=== PATIENT | male | born 1945 | race Caucasian/White ===

== ENCOUNTER → 2017-10-18 09:43 | Outpatient (CLI) | payer MEDICARE, OTHER, SELFPAY ==
[2017-10-12 10:09] VITALS: BP 120/77; BMI 38.9
--- NOTE | 2017-10-18 10:00 | ECHOCS_ITS ---
Reason For Study: DYSPNEA Procedure This was a 2D Doppler, Color Flow transthoracic echocardiogram. Contrast injection was performed. The study was technically difficult. Exam performed in department. Left Ventricle Normal LV size. Left ventricular systolic function is normal. The estimated ejection fraction is 65 %. No regional wall motion abnormalities noted. Right Ventricle Normal RV size. Normal systolic function. Atria The left atrium is moderately enlarged. The right atrium is mildly enlarged. Mitral Valve Normal mitral valve. Tricuspid Valve Normal tricuspid valve. Mild (1+) tricuspid valve insufficiency. Pulmonary artery systolic pressure is 36 mmHg. Aortic Valve Trisinus/trileaflet aortic valve. Mild focal aortic valve calcification. Peak aortic valve gradient 32 mmHg. Mean aortic valve gradient 18 mmHg. Moderate aortic stenosis. Calculated aortic valve area (continuity equation) is 0.97 cm2. Pulmonic Valve Normal pulmonic valve. Great Vessels Mildly dilated aortic root. The pulmonary artery is normal size. Normal inferior vena cava. Pericardium/Pleural No pericardial effusion. Medication 22 gauge I.V. with prn adaptor inserted into right arm. Diluted definity 3ml given slow IV push to enhance endocardial definition. MMode/2D Measurements & Calculations LVIDd: 4.4 cm IVSd: 1.1 cm LVOT diam: 2.1 cm LVIDs: 3.1 cm LVPWd: 1.1 cm LVOT area: 3.3 cm2 RVDd: 4.1 cm FS: 28.9 % Ao root diam: 3.8 cm LAV(MOD-bp): 93.5 ml EDV(MOD-sp4): 92.9 ml LA dimension: 5.9 cm LAV(MOD-bp) Indexed: 41.3 ml/m2 ESV(MOD-sp4): 19.2 ml LAV(MOD-sp2): 86.2 ml EF(MOD-sp4): 79.3 % LAV(MOD-sp4): 95.6 ml EDV(MOD-sp2): 61.9 ml SV(MOD-sp4): 73.7 ml SV(MOD-sp2): 53.0 ml EF(MOD-sp2): 85.5 % Aortic Valve Planimetry: 1.2 cm2 LA A4 area: 29.0 cm2 RA A4 area: 26.5 cm2 Doppler Measurements & Calculations MV E max michael: 143.7 cm/sec Ao V2 max: 283.9 cm/sec LV V1 max: 83.3 cm/sec Ao max P.4 mmHg LV V1 max P.3 mmHg Ao V2 mean: 196.8 cm/sec LV V1 mean P.5 mmHg Ao mean P.4 mmHg LV V1 mean: 52.0 cm/sec Ao V2 VTI: 52.0 cm LV V1 VTI: 13.9 cm PAIGE(I,D): 0.88 cm2 PAIGE(V,D): 0.97 cm2 SV(LVOT): 46.0 ml PA V2 max: 197.5 cm/sec TR max michael: 278.7 cm/sec TR max P.2 mmHg Interpretation Summary Normal LV size. Left ventricular systolic function is normal. The estimated ejection fraction is 65 %. Moderate aortic stenosis. Calculated aortic valve area (continuity equation) is 0.97 cm2. Pulmonary artery systolic pressure is 36 mmHg. Contrast injection was performed. Ordering Physician: Bran Russell Referring Physician: LEODAN CARDONA Performed By: Nara Veronica, ALYSIA, RVT
[2017-10-18 11:23] VITALS: PULSE 100; PULSE 109; PULSE 113; PULSE 119; PULSE 92; PULSE 94; PULSE 97; PULSE 98; O2SAT 90; O2SAT 91; O2SAT 92; O2SAT 93
--- NOTE | 2017-10-18 15:00 | WT_ITS ---
PSN 6 Minute Walk Test - 6 Minute Walk Test 6 Minute Walk Test: 6 Minute Walk Test PSN:6-Minute Walk Test Start: 10/18/17 11: 23 Freq: Status: Active Protocol: RESP.6MINW Document 10/18/17 11:23 [facility] (Rec: 10/18/17 11:28 JLA [id number]) 6 Minute Walk Test Date Performed 10/18/17 Time Performed 11:10 Height 5 ft 8 in Weight: 115.666 kg Weight in Pounds 255.[address]: Bran Russell Assistive device used: None Pre-test Oxygen Delivery Method Room Air Pulse Ox (%) 92 Pulse Rate (60-100 beats/min) 92 Dyspnea Terrell Scale (0-10) 0 Exertion Terrell Scale (6-20) 6 1st minute Oxygen Delivery Method Room Air Pulse Ox (%) 93 Pulse Rate (60-100 beats/min) 100 2nd minute Oxygen Delivery Method Room Air Pulse Ox (%) 90 Pulse Rate (60-100 beats/min) 97 3rd minute Oxygen Delivery Method Room Air Pulse Ox (%) 91 Pulse Rate (60-100 beats/min) 98 4th minute Oxygen Delivery Method Room Air Pulse Ox (%) 92 Pulse Rate (60-100 beats/min) 94 5th minute Oxygen Delivery Method Room Air Pulse Ox (%) 93 Pulse Rate (60-100 beats/min) 109 H 6th minute Oxygen Delivery Method Room Air Pulse Ox (%) 93 Pulse Rate (60-100 beats/min) 113 H Post-test Oxygen Delivery Method Nasal Cannula Pulse Ox (%) 93 Pulse Rate (60-100 beats/min) 119 H Dyspnea Terrell Scale (0-10) 3 Exertion Terrell Scale (6-20) 13 Full Laps Walked 19 Partial Lap, Number of Tiles Walked 0 Total Distance Walked (ft) 1121 - Interpretation Interpretation: The patient was able to ambulate 1121 feet over the course of 6 minutes on room air with no assistive devices or breaks. The patient did experience some desaturation as low as 90%. Some tachycardia was noted, consistent with deconditioning. Patient did report knee pain with exertion. These findings are consistent with a respiratory limitation exercise tolerance - Recommendations Recommendations: Supplemental oxygen is indicated at this time. Patient will need to be followed closely given level of desaturation
== END ==
PROVIDERS: Family Provider Internal Medicine; PCP Internal Medicine; Visit Provider Internal Medicine Critical Care Medicine
DX: Q25.3 Supravalvular aortic stenosis (principal); I26.99 Other pulmonary embolism without acute cor pulmonale
CPT/HCPCS: 93306; 94618; Q9957; A4216; C8929

== ENCOUNTER → 2017-12-09 12:12 | Outpatient (CLI) | payer MEDICARE, OTHER, SELFPAY ==
[2017-12-09 13:23] LABS: Anion Gap 10 (5-15); BUN 23 mg/dL (7-18); BUN/Creat Ratio 21.1 RATIO (10-20); Calcium,Total 8.7 mg/dL (8.5-10.1); Chloride 107 mmol/L (98-107); Creatinine, Serum 1.09 mg/dL (0.70-1.30); EST Glomerular Filtration Rate 70 mL/min (>60); Est Glom Filt Rate - Afr Amer 85 mL/min (>60); Glucose 101 mg/dL (74-106); Potassium 4.5 mmol/L (3.5-5.1); Sodium Level 141 mmol/L (136-145)
== END ==
PROVIDERS: Family Provider Internal Medicine; PCP Internal Medicine; Visit Provider Physician Assistant Medical
DX: I48.91 Unspecified atrial fibrillation (principal); I10 Essential (primary) hypertension; R60.0 Localized edema
CPT/HCPCS: 36415; 80048

== ENCOUNTER → 2017-12-15 07:28 | Outpatient (CLI) | payer MEDICARE, OTHER, SELFPAY ==
--- NOTE | 2017-12-15 07:32 | CT_ITS ---
CT Abdomen And Pelvis WO/W Contrast INDICATION: Gross hematuria COMPARISON: None TECHNIQUE: CT urogram with noncontrast CT of the abdomen, postcontrast CT of the abdomen and pelvis, and delayed CT of the abdomen and pelvis. : Sagittal reformatted images. Radiation dose optimization technique applied. 100 mL of Isovue-300 were given. FINDINGS: Visualized lung bases are clear. Precontrast scan demonstrates coarse calcifications presumably associated with complex cysts in the inferior pole regions of the bilateral kidneys. Vascular calcifications are noted. Diffuse arteriosclerotic calcifications of the abdominal aorta are present. A low density 1 cm lesion is noted in the left adrenal gland compatible with a left adrenal adenoma. The liver, gallbladder, spleen, and pancreas are unremarkable. Bowel loops are nondistended. After contrast administration, there is symmetric cortical renal enhancement. The complex cystic structures in the inferior pole regions of the bilateral kidneys are associated with mild coarse calcifications, measuring 2.5 cm on the left. Multiple smaller cysts between 1 and 2 cm size seen in the inferior pole region of the right kidney.. There is no evidence of hydronephrosis. On delayed phase imaging, there is symmetric excretion of contrast. Review of the urinary bladder demonstrates severe enlargement of the prostate, measuring 8.3 cm, and the prostate extends 4 cm into the urinary bladder. Invasion of the bladder wall cannot be excluded. No other mass seen in the urinary bladder. Bladder wall appears mildly thickened. No evidence of free air or free fluid. CT/CT Abd/Pelvis W/WO Contrast IMPRESSION: CT urogram reveals bilateral complex cysts associated with coarse calcifications, smoothly marginated on the left, multiple smaller more ill-defined and lobulated cysts in the inferior pole region of the right kidney. A true mass is not identified with certainty. Follow-up in 3 months is recommended to confirm stability. Severely enlarged prostate with extension into the urinary bladder, correlate with PSA and urologic evaluation. at 0111 Reported and signed by: Eden Wu MD Electronically Signed: Eden Wu MD at 0:10 EDT Tel , Service support ,
[2017-12-15 08:32] LABS: Color, Urine Yellow (Yellow); Glucose, Dipstick Normal (Normal); Ketone-Dipstick Negative (Negative); Leukocyte Esterase-Dipstick 100 /ul (Negative); Nitrite-Dipstick Negative (Negative); Occult Blood-Urine Negative /ul (Negative); Protein-Dipstick Negative (Negative); Urine Bilirubin Dipstick Negative (Negative); Urine Clarity Clear (Clear); Urine Urobilinogen Normal (Normal)
[2017-12-15 09:12] LABS: PSA,Total - Annual Screen 5.42 ng/mL (0.00-4.00)
== END ==
PROVIDERS: Family Provider Internal Medicine; PCP Internal Medicine; Visit Provider Nurse Practitioner Adult Health
DX: R31.0 Gross hematuria (principal); Z12.5 Encounter for screening for malignant neoplasm of prostate
CPT/HCPCS: 36415; 74178; 81002; 84153; 87086; 87088; Q9967; G0103

== ENCOUNTER → 2018-03-08 06:48 | Outpatient (CLI) | payer MEDICARE, OTHER, SELFPAY ==
[2018-03-08 07:59] LABS: AST(SGOT) 16 U/L (15-37); Alanine Aminotransfer ALT/SGPT 31 U/L (16-61); Albumin, Serum 3.6 g/dL (3.2-5.0); Alkaline Phosphatase 106 U/L (45-117); Bilirubin, Direct 0.22 mg/dL (0.00-0.30); Cholesterol 103 mg/dL (200); Globulin 4.3 g/dL (2.2-4.2); High Density Lipoprotein 35 mg/dL; Protein, Total 7.9 g/dL (6.4-8.2); Triglycerides 102 mg/dL; Very Low Density Lipoprotein 20 mg/dL (5-40)
== END ==
PROVIDERS: Family Provider Internal Medicine; PCP Internal Medicine; Visit Provider Physician Assistant Medical
DX: E78.5 Hyperlipidemia, unspecified (principal)
CPT/HCPCS: 36415; 80061; 80076

== ENCOUNTER → 2018-08-15 12:46 | Outpatient (CLI) | payer MEDICARE, OTHER, SELFPAY ==
[2018-04-22 11:15] VITALS: BMI 36.0
--- NOTE | 2018-08-16 08:19 | PFT ---
INTRODUCTION: The patient is a 72-year-old male that presents for pulmonary function testing secondary to a diagnosis of COPD. Respiratory therapy reports good patient effort. Bronchodilators were used during testing. INTERPRETATION: Forced expiration spirometry demonstrates no evidence of a large airways obstructive ventilatory defect. There was no significant response to aerosolized bronchodilators. Spirograms are of good quality and plateau gradually. The respiratory flow volume loop appears normal. Body plethysmography was performed and reveals lung volumes to be within normal limits. Diffusing capacity by single breath CO is at the lower limits of normal at 67% of predicted. IMPRESSION: These pulmonary function studies only demonstrated a DLCO which is at the lower limits of normal. There are no previous pulmonary function studies available for comparison.
--- OUTSIDE RECORDS SUMMARY | 2018-10-08 19:24 | XMS RPT_ITS ---
:1945 Author Organization OHIP Support Name Relationship Address Phone FRANCESCA MARRERO Unavailable [address] + [place] [address] MALLIKA CLOE Unavailable [address] + [place] [address] R Unavailable Unavailable Unavailable ZANEASPENON Unavailable [address] + [place] [address] MALLIKA COLE Unavailable [address] + [place] [address] R Unavailable Unavailable Unavailable ZANE FRANCESCA Unavailable [address] + [place] [address] MALLIKA COLE Unavailable [address] + [place] [address] R Unavailable Unavailable Unavailable ZANEASPENON Unavailable [address] + [place] [address] MALLIKA COLE Unavailable [address] + [place] [address] R Unavailable Unavailable Unavailable ZANE FRANCESCA Unavailable [address] + [place] [address] MALLIKA COLE Unavailable [address] + [place] [address] R Unavailable Unavailable Unavailable ZANE FRANCESCA Unavailable [address] + [place] [address] R Unavailable Unavailable Unavailable ZANE, FRANCESCA Unavailable [address] + [place] [address] R Unavailable Unavailable Unavailable ZANE, FRANCESCA Unavailable [address] + [place] [address] R Unavailable Unavailable Unavailable ZANE FRANCESCA Unavailable [address] [phone] [place] [address] R Unavailable Unavailable Unavailable ZANE, FRANCESCA Unavailable [address] [phone] [place] [address] R Unavailable Unavailable Unavailable ZANE, FRANCESCA Unavailable [address] [phone] [place] [address] R Unavailable Unavailable Unavailable ZANE, FRANCESCA Unavailable [address] [phone] [place] [address] R Unavailable Unavailable Unavailable ZANE, FRANCESCA Unavailable [address] [phone] [place] [address] R Unavailable Unavailable Unavailable ZANE, FRANCESCA Unavailable [address] [phone] [place] [address] R Unavailable Unavailable Unavailable ZANE, FRANCESCA Unavailable [address] [phone] [place] [address] R Unavailable Unavailable Unavailable ZANE, FRANCESCA Unavailable [address] + [place] [address] R Unavailable Unavailable Unavailable ZANE, FRANCESCA Unavailable [address] + [place] [address] R Unavailable Unavailable Unavailable ZANE, FRANCESCA Unavailable [address] + [place] [address] R Unavailable Unavailable Unavailable ZANE, FRANCESCA Unavailable [address] + [place] [address] R Unavailable Unavailable Unavailable ZANE, FRANCESCA Unavailable [address] + [place] [address] R Unavailable Unavailable Unavailable ZANE, FRANCESCA Unavailable [address] + [place] [address] R Unavailable Unavailable Unavailable ZANE, FRANCESCA Unavailable [address] + [place] [address] R Unavailable Unavailable Unavailable ZANE, FRANCESCA Unavailable [address] + [place] [address] R Unavailable Unavailable Unavailable Care Team Providers Name Role Phone TOMY CARDONA Referring Unavailable TOMY CARDONA Attending Unavailable Erica Warner Attending Unavailable Tomy Cardona Referring Unavailable Freddy Juan D.O. Attending Unavailable Bran Russell Referring Unavailable Bran Russell Attending Unavailable Cardona, Tomy Primary Care Unavailable Larissa Frederick Attending Unavailable Drew, Bran Attending Unavailable Cardona, Tomy Referring Unavailable Cardona, Tomy Primary Care Unavailable Freddy Juan D.O. Attending Unavailable Drew, Bran Referring Unavailable Drew, Bran Attending Unavailable Drew, Bran Referring Unavailable Cardona, Tomy Primary Care Unavailable Freddy Juan D.O. Attending Unavailable Drew, Bran Referring Unavailable Drew, Bran Attending Unavailable Drew, Bran Referring Unavailable Erica Warner Attending Unavailable Cardona, Tomy Referring Unavailable Christopher Rivera Attending Unavailable Drew, Bran Referring Unavailable Capellan, Anai Mckeon Attending Unavailable Cardona, Tomy Referring Unavailable Cardona, Tomy Primary Care Unavailable Jeff Bowie Attending Unavailable Cardona, Tomy Referring Unavailable Capellan, Anai Mckeon Attending Unavailable Cardona, Tomy Primary Care Unavailable Bruna, Nancy Mckeon Attending Unavailable Bruna, Nancy M Referring Unavailable Cardona, Tomy Primary Care Unavailable Brook Hoffman Attending Unavailable Capellan, Anai Mckeon Attending Unavailable Cardona, Tomy Referring Unavailable Cardona, Tomy Primary Care Unavailable Drew, Bran Attending Unavailable Cardona, Tomy Referring Unavailable Capellan, Anai M Attending Unavailable Capellan, Anai M Referring Unavailable Cardona, Tomy Primary Care Unavailable Ilana Hale Attending Unavailable Jeff Bowie Attending Unavailable Cardona, Tomy Referring Unavailable Cardona, Tomy Primary Care Unavailable Drew, Bran Attending Unavailable Drew, Bran Referring Unavailable Cardona, Tomy Primary Care Unavailable Drew, Bran Attending Unavailable Drew, Bran Referring Unavailable Cardona, Tomy Primary Care Unavailable PROBLEMS PROBLEMS DATE TYPE CONDITION / CODE ATTENDING STATUS SOURCE 08/17/2018 Unknown J44.9 - Chronic Drew, Bran Active [facility] obstructive pulmonary Community disease, unspecified Hospital / J44.9(ICD-10) Repository 08/17/2018 Unknown I27.29 - Other Drew, Bran Active [place] secondary pulmonary Community hypertension / Hospital I27.29(ICD-10) Repository 04/22/2018 Unknown E78.5 - Jeff Bowie Active [facility] Hyperlipidemia, Community unspecified / Hospital E78.5(ICD-10) Repository 04/22/2018 Unknown I48.1 - Persistent Jeff Bowie Active [facility] atrial fibrillation / Community I48.1(ICD-10) Hospital Repository 04/22/2018 Unknown I25.10 - Jeff Bowie Active [place] Atherosclerotic heart [facility] disease of [facility] coronary artery Repository without angina pectoris / I25.10(ICD-10) 04/22/2018 Unknown I35.0 - Nonrheumatic Jeff Bowie Active [place] aortic (valve) [facility] stenosis / Hospital I35.0(ICD-10) Repository 01/19/2018 Active Other nursing home NA Active [facility] Main therapy / [place] Z79.899(ICD-10) Repository 01/13/2018 Unknown I48.91 - Unspecified Capellan, Active [facility] atrial fibrillation / [facility] I48.91(ICD-10) Hospital Repository 12/09/2017 Unknown I10 - Essential Capellan, Active [facility] (primary) [facility] hypertension / Hospital I10(ICD-10) Repository 12/09/2017 Unknown R60.0 - Localized Capellan Active [place] edema / R60.0(ICD-10) [facility] Repository 10/18/2017 Unknown Q25.3 - Supravalvular Bran Russell Active [place] aortic stenosis / [facility] Q25.3(ICD-10) Hospital Repository 10/12/2017 Unknown I26.99 - Other Bran Russell Active [place] pulmonary embolism [facility] without acute cor Hospital pulmonale / Repository I26.99(ICD-10) PROCEDURES PROCEDURES No Procedure Records FoundRESULTS RESULTS PULMONARY VISIT REPORT Observed: 08/23/2018 Status: F Source: [place] 3:34 PM [facility] REPOSITORY [facility] Pulmonary Medicine [facility] [address] [place] [address] OFFICE VISIT Date of Service: 08/23/18 MR#: [id number] Acct: [id number] Name: CARLIE MARRERO Rep #: [id number] : 1945 Provider: Erica Warner Age/Sex: 73/M Location: [facility] Status: Signed Assessment AND Plan Problems 1. PAH (pulmonary artery hypertension) I27.21 Plan Stable. No indication for submental oxygen at this time. Continue to encourage weight loss. No indication to step up therapy. Follow-up with Dr. Drew in 6 months. Contact the office with any new or worsening symptoms meantime. Annual influenza vaccination current. Plan Detail Follow Up 6 Months ([facility]) HPI 6 M FU: Chief Complaint: None HPI Comments Details: This patient presents the office today to follow-up on his shortness of breath on exertion. He is ambulatory and currently in room air. He is accompanied today by his . He reports his shortness of breath is only present on exertion. He denies any shortness of breath with rest or conversation. He denies any cough, sputum production or hemoptysis. He denies any wheezing, chest tightness, chest pain or palpitations. He is not expansive fever, chills or body aches. He continues with weight loss, is down approximately 20 pounds at this point. He has been using diet modification and exercise. He reports that they avoid cooking foods and oils, fried foods, breads and sweets. Function test completed on August 15, 2018 interpreted as showing a DLCO which is slightly on the lower limits of normal. FVC 80% of predicted, FEV1 83% predicted, FEV1/FVC 75% of predicted, TLC 94% of predicted, RV 84% of predicted and DLCO 67% of predicted. Stress test completed on July 18, 2018 shows that the patient was able to ambulate 1087 feet over the course of 6 minutes, he did not desaturate and does not require supplemental oxygen. Intake Vital Signs08/23/18 Height 5 ft 8 in Intake Visit Reasons: 6 M FU Chief Complaint: Routine f/u Is patient in pain?: No Allergies lisinopril Adverse Reaction (Intermediate, Verified 08/23/18 10:07) cough Medications Finasteride [Proscar] 5 mg PO DAILY 09/24/15 [History Confirmed 08/23/18] apixaban 5 mg tablet 5 mg PO BID #180 tab 09/16/17 [Rx Confirmed 08/23/18] diltiazem CD 180 mg capsule,extended release 24 hr 180 mg PO QDAY #180 cap 12/09/17 [Rx Confirmed 08/23/18] tamsulosin 0.4 mg capsule 0.8 mg PO QDAY cap 02/28/18 [History Confirmed 08/23/18] furosemide 40 mg tablet 40 mg PO QDAY #90 tab 04/22/18 [Rx Confirmed 08/23/18] atorvastatin 10 mg tablet 10 mg PO QDAY #90 tab 07/22/18 [Rx Confirmed 08/23/18] metoprolol tartrate 50 mg tablet 50 mg PO BID #180 tab 07/22/18 [Rx Confirmed 08/23/18] [facility] Medical History Atherosclerotic heart disease of [place] coronary artery without angina pectoris (Chronic) Hyperlipidemia (Chronic) 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) Emphysema of lung (Chronic) NOAM (obstructive sleep apnea) (Chronic) Solitary pulmonary nodule (Chronic) Persistent atrial fibrillation (Chronic) Nonrheumatic aortic (valve) stenosis (Chronic) Nonrheumatic tricuspid (valve) insufficiency (Chronic) Other secondary pulmonary hypertension (Chronic) Fever (Chronic) Atrial fibrillation (Chronic) Bilateral pulmonary embolism (Chronic) Hypertension (Chronic) BPH (benign prostatic hyperplasia) (Chronic) Surgical History Stented coronary artery (Chronic 11/07/11) History of electrophysiologic study (Chronic 01/27/12) H/O oral surgery (Resolved) History of left cataract surgery (Resolved) Family History Mother CVA (cerebral vascular accident) Diabetes Other Family history of CVA Social History Smoking Status: Former smoker quit date: 09/13/11 pack-years: 80 how long ago did patient quit smokin second hand exposure: No alcohol intake: never substance use type: does not use caffeine: Yes Type: tea what type of physical activity do you participate in: none seatbelt use: always do you feel safe at home: Yes Review of Systems Const CONSTITUTIONAL: Negative anorexia, body ache, chills, daytime sleepiness, fever(s), night sweats, oral thrush, stops breathing during sleep, weight loss, sleeping in chair, fatigue, weight loss, weight gain, frequent colds, seasonal allergies, other, headache(s) or orthopnea EETM Ear Nose Throat Mouth: Negative hard of hearing, hearing normal, hoarseness, dry mouth in morning, change in vision, itchy eyes, eye pain, swallowing Difficulty, ear pain, nose bleed, headache(s), mouth pain, nasal congestion, nasal discharge, post nasal drip, sinus pain, sinus pressure, sore throat or other Cardio Cardiovascular: Positive murmur; negative chest pain, chest pain at rest, chest pain with activity, irregular heart rhythm, edema, shortness of breath when lying down, palpitations or other Resp Respiratory: Positive shortness of breath shortness of breath: Positive with activity and cough; negative as per HPI, pain with cough, wheezing, chest congestion, chest tightness, pain on inspiration, inhalers, increase use of rescue inhalers, snoring, apnea or other Gastro Gastrointestional: Negative bloody stools, change in appetite, difficulty swallowing, reflux, hematemesis, melena stool, loose stool, constipation or other Genitourinary: Negative blood in urine, nocturia, pain with urination or other Musc Musculoskeletal: Negative body pain, back pain, neck pain or other Skin/Breast Skin/Breast: Negative dry skin, itching, rash, unusual bruising, breast lump or other Neuro Neurological: Negative restless legs, confusion, weakness or other Psych Psychocological: Negative abnormal sleep pattern, anxiety, thoughts of hurting self/others, hopelessness or other Lymph Lymphatic: Negative easy bleeding, easy bruising, swollen lymph nodes or other Exam Const Constitutional: Positive conversant, cooperative, in no acute respiratory distress, healthy appearing, well developed, well nourished, good hygiene and obese Head Head: Positive normocephalic and atraumatic; negative cyanosis of lips/distal nose Eyes Eye: Positive clear conjunctiva; negative nystagmus or scleral abnormality Ears Ear: Positive external ears normal; negative hard of hearing or hearing normal Nose Nose: Positive external nose normal and no nasal discharge; negative epistaxis Mouth Mouth: Positive oral mucosae normal and no lesions; negative post nasal drip, malodorous breath or oral thrush present Neck Neck: Positive normal visual inspection, full ROM and trachea midline; negative lymphadenopathy, JVD or tender Chest Wall Chest: Positive normal inspection of the chest and symmetric chest movement; negative increased A/P diameter Resp lung sounds: Positive clear to auscultation, good air exchange, normal expiratory time and normal respiratory effort; negative diminished, wheezes, rhonchi, rales, dullness to percussion or wheeze present on forced exhalation Cardio Cardiac: Positive murmur murmur: Positive LUSB, RUSB and diastolic; negative regular rate or regular rhythm GI GI: Positive normal to inspection and obese; negative distended Genitourinary: Positive deferred Musc Musculoskeletal: Positive steady gait and ROM normal; negative kyphosis or scoliosis Skin Pulmonary Skin Exam: Positive intact; negative rash Pulses Pulse: Yes pulses normal x4 extremities Extremities Extremities: Yes capillary refill normal, No clubbing, No cyanosis, No edema Neuro Neurologic: Yes conversant, Yes no focal neuro deficits, Yes normal concentration, Yes understands questions, Yes cooperative, Yes normal cognition, Yes normal coordination, No tremor Lymph Lymphatic: No lymphadenopathy, No tenderness, No cervical adenopathy Psych Appearance: Positive grossly normal, eye contact and well kempt Mental Status: Positive mental status grossly normal Mood: Positive congruent mood Affect: Positive normal affect Coding Level of Care Code Off vis,est,level 3 Diagnoses PAH (pulmonary artery hypertension) I27.21 08/23/18 1534 <Electronically signed by Erica RIVASC> Date Erica RIVASC Cosigner Signature: Date (if applicable) CC: Tomy Cardona MD 6 MINUTE WALK TEST Observed: 08/17/2018 Status: F Source: [place] 12:59 PM [facility] REPOSITORY [facility] Pulmonary Services/Neurology [facility] [place] [address] MR#: [id number] Acct: [id number] Name: CARLIE MARRERO Rep #: [id number] : 1945 72 From: Freddy Juan DO Referring Dr: Bran Russell MD Date: Ordering Dr: Sex: Mike Cast Location: PSN PSN 6 Minute Walk Test - 6 Minute Walk Test 6 Minute Walk Test: 6 Minute Walk Test PSN:6-Minute Walk Test Start: 08/17/18 11:14 Freq: Status: Active Protocol: RESP.6MINW Document 08/17/18 11:05 [facility] (Rec: 08/17/18 11:23 [facility] [id number]) 6 Minute Walk Test Date Performed 08/17/18 Time Performed 11:05 Height 5 ft 8 in Weight: 230 lb Weight in Pounds 230.[address]: Bran Russell Assistive device used: None Pre-test Oxygen Delivery Method Room Air Pulse Ox (%) 94 Pulse Rate (60-100 beats/min) 86 Dyspnea Terrell Scale (0-10) 0 Exertion Terrell Scale (6-20) 6 1st minute Oxygen Delivery Method Room Air Pulse Ox (%) 94 Pulse Rate (60-100 beats/min) 86 Number of Rests Taken 0 2nd minute Oxygen Delivery Method Room Air Pulse Ox (%) 92 Pulse Rate (60-100 beats/min) 101 H Number of Rests Taken 0 3rd minute Oxygen Delivery Method Room Air Pulse Ox (%) 92 Pulse Rate (60-100 beats/min) 123 H Number of Rests Taken 0 4th minute Oxygen Delivery Method Room Air Pulse Ox (%) 93 Pulse Rate (60-100 beats/min) 112 H Number of Rests Taken 0 5th minute Oxygen Delivery Method Room Air Pulse Ox (%) 92 Pulse Rate (60-100 beats/min) 113 H Number of Rests Taken 0 6th minute Oxygen Delivery Method Room Air Pulse Ox (%) 93 Pulse Rate (60-100 beats/min) 113 H Number of Rests Taken 0 Post-test Oxygen Delivery Method Room Air Pulse Ox (%) 98 Pulse Rate (60-100 beats/min) 87 Dyspnea Terrell Scale (0-10) 2 Exertion Terrell Scale (6-20) 12 Full Laps Walked 18 Partial Lap, Number of Tiles Walked 25 Total Distance Walked (ft) 1087 - Interpretation Interpretation: The patient ambulated 1087 feet over the course of 6 minutes beginning on room air without assistive devices or breaks. Pretesting oxygen saturation was noted to be 94% on room air. With ambulation, the nany oxygen saturation was 92%. There was no significant exertional oxygen desaturation. - Recommendations Recommendations: There is no indication for the use of supplemental oxygen at this time. 08/17/18 1259 <Electronically signed by Freddy Juan DO> Date Freddy Juan DO CC: Date Dictated: 08/17/181257 Date Transcribed: 08/17/181257 Information Systems Professor: Freddy Juan DO Signed PULMONARY FUNCTION Observed: 08/16/2018 Status: F Source: [place] TEST 8:22 AM [facility] REPOSITORY [facility] Pulmonary Services/Neurology [address] [place] [address] MR#: [id number] Acct: [id number] Name: CARLIE MARRERO Rep #: [id number] : 1945 72 From: Freddy Juan DO Referring Dr: Bran Russell MD Status: REG CLI Ordering Dr: Date: Location: [facility] Sex: M C INTRODUCTION: The patient is a 72-year-old male that presents for pulmonary function testing secondary to a diagnosis of COPD. Respiratory therapy reports good patient effort. Bronchodilators were used during testing. INTERPRETATION: Forced expiration spirometry demonstrates no evidence of a large airways obstructive ventilatory defect. There was no significant response to aerosolized bronchodilators. Spirograms are of good quality and plateau gradually. The respiratory flow volume loop appears normal. Body plethysmography was performed and reveals lung volumes to be within normal limits. Diffusing capacity by single breath CO is at the lower limits of normal at 67% of predicted. IMPRESSION: These pulmonary function studies only demonstrated a DLCO which is at the lower limits of normal. There are no previous pulmonary function studies available for comparison. 08/16/18821 <Electronically signed by Freddy Juan DO> Date Freddy Juan DO CC: Bran Russell MD; Tomy Cardona MD Date Dictated: 08/16/18818 Date Transcribed: 08/16/18818 Information Systems Professor: SARANYA Signed CARDIOLOGY VISIT Observed: 04/22/2018 Status: F Source: [place] REPORT 11:48 AM [facility] REPOSITORY [facility] [address] [place] [address] OFFICE VISIT Date of Service: 04/22/18 MR#: [id number] Acct: [id number] Name: CARLIE MARRERO Rep #: [id number] : 1945 Provider: Jeff Bowie MD Age/Sex: 72/M Location: [facility] Status: Signed HPI [facility] Chief Complaint: Routine f/u Details: Mr. Marrero is a very pleasant 72-year-old gentleman who had not seen a medical doctor in some time, has never had a cardiac issue, with approximately [id number] history of smoking quit around 4 years ago. Patient also used to drink around one beer day for about 25 years also quit about 4 years ago. He reports that he is a nondiabetic but is morbidly obese. The patient was admitted to [facility] around 09/25/15 after developing new onset right sided sharp pleuritic-type chest pain occurring approximately one month after falling and hitting his chest wall. He sought medical attention at [facility] ER where a CT scan of his chest demonstrated bilateral pulmonary emboli particularly more prominent on the right. In addition he had evidence of right ventricular enlargement and also found to be in atrial fibrillation with rapid ventricular response. he was placed on a Cardizem, as well as Eliquis and underwent successful cardioversion on 11/15/15. Patients echocardiogram demonstrated normal LV function mild left atrial enlargement, and RVSP of 47 mmHg, mild bi lateral mitral annular calcification, unable to calculate mitral gradient, and an estimated aortic valvular area of 1.2 cm with a peak gradient across the aortic valve of at least 36 mmHg. Patient underwent FADIA guided DC cardioversion on 11/15/15 which lasted about a week, and then reverted back to atrial fibrillation. Prior to our last visit he is doing fairly well, he denies any chest pain, angina, or shortness of breath or dyspnea on exertion. He underwent a sleep study and a 6 minute walk test with Dr. Russell, and is awaiting a repeat CT scan on 02/12/16 for his pulmonary nodules. Patient remains on Cardizem, Lopressor, and ELiquis. he has had no bleeding issues. He is taking and tolerating his medicines well. Since our last visit, the patient has been doing relatively well, and has had no sentinel events of presyncope, syncope, is additional lightheadedness, dizziness, exertional angina, or worsening shortness of breath/worsening dyspnea on exertion. He has known NOAM and COPD, and is following up with pulmonology going forward. His most recent echocardiogram dated 01/27/17 showed an EF of 65%, severe biatrial enlargement, and aortic valve area 1.2 cm which may be inaccurate given his atrial fibrillation. His peak and mean gradient did not approach severe aortic stenosis at this time. Repeat echocardiogram dated 10/20/17 showed normal LV function with an EF of 65%, estimated aortic valvular area of 0.97 cm , with an aortic peak/mean gradient of 32 and 17 mmHg, and an RVSP of 36 mmHg. Patient states that he requires a colonoscopy but is concerned about going off of his Eliquis with respect to his atrial fibrillation. Patient had a colonoscopy about 7-8 years ago, and some polyps removed. He is due for another colonoscopy for routine surveillance but would need to go off his Eliquis for that procedure my cardiac standpoint he denies any chest pain, angina, shortness of breath or dyspnea on exertion. He is taking and tolerating his medicines well. He has had no change in his exercise capacity, presyncope, syncope, lightheadedness or dizziness In our office today's blood pressure is 100/60 and pulse is 80 and regular. His physical exam demonstrates a irregular rate rhythm normal S2, 2/6 systolic ejection murmur best heard at the upper right sternal border, no edema noted. he has 2+ bilateral carotid upstroke, and no edema. Lipids as of 10/11/15 showed HDL of 41 and LDL of 101. Lipids as of 10/02/16 showing LDL of 102, and HDL of 35. Lipids has of 02/24/17 shown LDL of 45 and HDL 38. Lipids as of 03/08/18 show an LDL of 48 and HDL 35. EKG today demonstrates atrial fibrillation with controlled ventricular response Intake Vital Signs04/22/18 Height 5 ft 8 in 04/22/18 Weight: 237 lb 04/22/18 Body Mass Index (BMI) 36.0 04/22/18 Blood Pressure 100/60 Intake Visit Reasons: 3 M Order Runner Required: No Accompanied by: Is patient in pain?: No Allergies lisinopril Adverse Reaction (Intermediate, Verified 04/22/18 08:21) cough Medications Finasteride [Proscar] 5 mg PO DAILY 09/24/15 [History Confirmed 04/22/18] apixaban 5 mg tablet 5 mg PO BID #180 tab 09/16/17 [Rx Confirmed 04/22/18] atorvastatin 10 mg tablet 10 mg PO QDAY #90 tab 09/16/17 [Rx Confirmed 04/22/18] metoprolol tartrate 50 mg tablet 50 mg PO BID #180 tab 09/16/17 [Rx Confirmed 04/22/18] diltiazem CD 180 mg capsule,extended release 24 hr 180 mg PO QDAY #180 cap 12/09/17 [Rx Confirmed 04/22/18] tamsulosin 0.4 mg capsule 0.8 mg PO QDAY cap 02/28/18 [History Confirmed 04/22/18] furosemide 40 mg tablet 40 mg PO QDAY #90 tab 04/22/18 [Rx Confirmed 04/22/18] [facility] Medical History Atherosclerotic heart disease of [place] coronary artery without angina pectoris (Chronic) Hyperlipidemia (Chronic) 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) Emphysema of lung (Chronic) NOAM (obstructive sleep apnea) (Chronic) Solitary pulmonary nodule (Chronic) Persistent atrial fibrillation (Chronic) Nonrheumatic aortic (valve) stenosis (Chronic) Nonrheumatic tricuspid (valve) insufficiency (Chronic) Other secondary pulmonary hypertension (Chronic) Fever (Chronic) Atrial fibrillation (Chronic) Bilateral pulmonary embolism (Chronic) Hypertension (Chronic) BPH (benign prostatic hyperplasia) (Chronic) Surgical History Stented coronary artery (Chronic 11/07/11) History of electrophysiologic study (Chronic 01/27/12) H/O oral surgery (Resolved) History of left cataract surgery (Resolved) Family History Mother CVA (cerebral vascular accident) Diabetes Other Family history of CVA Social History Smoking Status: Former smoker quit date: 09/13/11 pack-years: 80 how long ago did patient quit smokin second hand exposure: No alcohol intake: never substance use type: does not use caffeine: Yes Type: tea what type of physical activity do you participate in: none seatbelt use: always do you feel safe at home: Yes ROS Const Const: Negative for fatigue, weakness, body ache, fever(s), headache(s), chills, frequent falls, night sweats, daytime sleepiness, difficulty sleeping, excessive sweating, weight gain, weight loss, increased appetite, poor appetite, anorexia or other Eyes Eyes: Negative for blind spots, loss of peripheral vision, transient loss of vision, blurry vision, change in vision, double vision, floaters, tunnel vision or other ENT ENT: Negative for headache(s), dizziness, hearing loss, tinnitus, Nosebleed/epistaxis, balance problems, post nasal drip, lip swelling, tongue swelling, bleeding gums, hoarseness, neck pain, dry mouth or other Cardio Chest Pain: No Palpitations: No Muscle aches with walking: None Resp Respiratory: Positive for SOB with activity (Mild, Has COPD); negative for SOB at rest, SOB orthopnea\SOB lying down, Coughing up blood/hemoptysis, chest congestion, pain on inspiration, snoring, stridor, wheezing, crackles, paroxysmal nocturnal dyspnea or other GI GI: Negative nausea, vomiting, heartburn, constipation, belching, bloating, cramping, vomiting blood/hematemesis, bright, red blood in stools, black,tarry stools, loose stools, Difficulty Swallowing or other : Negative for hematuria, frequent nighttime urination/ nocturia, erectile dysfunction or abnormal vaginal bleeding Musc Musc: Negative for balance problems, muscle aches/ myalgia, muscle weakness or joint pain Skin Skin: Negative redness, non-healing lesions, rash, unusual bruising, skin ulcer, wounds, jaundice or other Neuro Neuro: Negative for weakness, headache(s), frequent falls, blurry vision, double vision, dizziness, lightheadedness, near syncope, syncope, orthostatic symptoms, confusion, memory loss, restless legs, vertigo, seizures, lack of coordination or other Ag Hematologic/Lymphatic: Negative for easy bleeding, easy bruising, enlarged lymph nodes or other Endo Endo: Negative for fatigue, excessive sweating, cold intolerance, heat intolerance, flushing, increased thirst/drinking, increased hunger, hair loss, hair growth or other Psych Psych: Negative for anxiety, depression, thoughts of harming anyone, thoughts of harming yourself, visual hallucinations, panic attacks or audible hallucinations Allergy Allergy/Immunology: Negative for lip swelling, Negative for tongue swelling, Negative for rash, Negative for throat swelling, Negative for hives Cardiology Exam Const Appearance: cooperative, healthy appearing and no acute distress Nutritional Appearance: well nourished Orientation: alert, oriented x3 and oriented to person Head Head: normal to inspection, atraumatic and normocephalic Nose: external nose normal Face and Sinus: face symmetric Mouth: oral mucosae normal Eyes General: appearance normal, both eyes and all related structures Eyelids: eyelids normal Conjunctivae: conjunctivae normal Pupils: PERRL and normal by confrontation EOM: EOM intact bilaterally Neck Neck: normal visual inspection and full ROM Carotids: normal carotid upstroke Chest Chest inspection: normal inspection of the chest Auscultation: Bilateral: Clear to Auscultation Cardio Palpation: normal PMI Rate: regular rate Rhythm: irregular rhythm Heart sounds: S2 normal Murmur: Grade 2/6 and crescendo-decrescendo GI GI: normal to inspection, no hepatosplenomegaly and bowel sounds present Neuro General: alert, oriented x3, awake, CN's II-XI intact bilaterally and moves all extremities Skin Skin: no rashes or lesions noted Extremities Pulses: Normal: Right Femoral Pulse, Left Femoral Pulse, Right Dorsalis Pedis Pulse, Left Dorsalis Pedis Pulse, Right Posterior Tibial Pulse, Left Posterior Tibial Pulse, Right Radial Pulse, Left Radial Pulse Lower Extremity Edema: None: Bilateral Psych Psychological: normal affect Assessment AND Plan 1. Atherosclerotic heart disease of [place] coronary artery without angina pectoris I25.10 PTCA and LIU from proximal to mid LAD (Promus Element 3.0 X 16) per Dr. Sunshine, [facility] Plan 1. Coronary artery disease: No exertional anginal symptoms at this time. No indication for any additional testing. His blood pressure and heart rate are well controlled. I recommended that he continue his Lasix and metoprolol. 2. Hyperlipidemia E78.5 Plan 2. Hyperlipidemia: His LDL and HDL cholesterol are fairly well-controlled. Continue Lipitor therapy. 3. Persistent atrial fibrillation I48.1 Plan 3. Atrial fibrillation: The patient appears to be in atrial fibrillation today and we will get an EKG to confirm this. His heart rate is well controlled. KG today confirms atrial fibrillation with controlled ventricular response continue diltiazem and metoprolol. Patient will need to hold his Eliquis 3 days prior to his colonoscopy and then resume after colonoscopy has been completed. Orders Orders: 4. Nonrheumatic aortic (valve) stenosis I35.0 Plan 4. Aortic stenosis: The patient has mild aortic stenosis by peak and mean gradient although this may be underestimated given his atrial fibrillation. His estimated aortic valve area is around 1.0 cm . He is asymptomatic from an aortic stenosis standpoint and denies any presyncope, syncope, lightheadedness or dizziness. Recommend surveillance of his aortic valve with yearly echoes. 5. Return to office in 6 months. This note was generated using a voice recognition system and there may be incorrect words, spelling or punctuation that were not noted when reviewing the office note prior to saving. Plan Detail Other Medications Refilled: Follow Up +6M (Jamir) Coding Level of Care Code Off vis,est,level 3 Diagnoses Atherosclerotic heart disease of [place] coronary artery without angina pectoris I25.10 Hyperlipidemia E78.5 Persistent atrial fibrillation I48.1 Nonrheumatic aortic (valve) stenosis I35.0 Coding Level of Care Code Off vis,est,level 3 Diagnoses Atherosclerotic heart disease of [place] coronary artery without angina pectoris I25.10 Hyperlipidemia E78.5 Persistent atrial fibrillation I48.1 Nonrheumatic aortic (valve) stenosis I35.0 04/22/18 1148 <Electronically signed by Jeff Bowie MD> Date Jeff Bowie MD Cosigner Signature: Date (if applicable) CC: Tomy Cardona MD 12 LEAD EKG PERFORMED Observed: 04/22/2018 Status: F Source: [place] 11:41 AM [facility] REPOSITORY [facility] [address] [place] [address] 12 Lead EKG performed by LUIS 04/22/18 1140 MR#: [id number] Acct: [id number] Name: CARLIE MARRERO Rep #: [id number] : 1945 72 From: Jeff Bowie MD Attending Dr: Jeff Bowie MD Status: DEP AMB Ordering Dr: Jeff Bowie MD Date: 04/22/18 [place] [facility] [place] M C Admitted: BMS/12 Lead EKG performed by [facility] ECG Report Interpretation Atrial fibrillation Low voltage in limb leads. ABNORMAL Electronically signed on 08/26/2018 at 15:30 by Jeff Bowie Software Version [id number] 08/26/18 1531 Date Jeff Bowie MD CC: Tomy Cardona MD Date Dictated: 04/22/181139 Date Transcribed: 04/22/181139 Information Systems Professor: Signed LIVER PROFILE Collected: 03/08/2018 Status: F Source: [place] 6:58 AM [facility] [place] REPOSITORY TYPE CODE TESTS RESULT OUT OF RANGE REFERENCE UNITS LAB L501.1500 6.4-8.2 g/dL Normal T PROT 7.9 LAB L501.1800 3.2-5.0 g/dL Normal ALB 3.6 LAB L501.1950 2.2-4.2 g/dL High GLOB 4.3 LAB L501.4100 15-37 U/L Normal AST 16 LAB L501.4305 45-117 U/L Normal ALK P 106 LAB L501.4405 16-61 U/L Normal ALT 31 LAB L501.4600 0.20-1.00 mg/dL Normal T BILI 0.70 LAB L501.4700 0.00-0.30 mg/dL Normal D BILI 0.22 Performed By: #### L500.3400, L500.4100 #### [facility] [address] [place], [place], [id number] LIPID PROFILE Collected: 03/08/2018 Status: F Source: [place] 6:58 AM [facility] REPOSITORY TYPE CODE TESTS RESULT OUT OF RANGE REFERENCE UNITS LAB L501.4900 200 mg/dL Normal CHOL 103 Result Comment: <200 mg/dL Desirable 200-240 mg/dL Borderline >240 mg/dL High Risk LAB L501.5000 mg/dL Normal TRIG 102 Result Comment: The drugs N-Acetylcysteine and Metamizole may falsely depress this assay. Serum Triglycerides Reference Interval Normal <150 mg/dL Borderline high 150 - 199 mg/dL High 200 - 499 mg/dL Very High > or = 500 mg/dL LAB L501.6400 mg/dL Low HDL 35 Result Comment: The drugs N-Acetylcysteine and Metamizole may falsely depress this assay. Reference Range HDL <40 mg/dL Low HDL Cholesterol HDL >or= 60 mg/dL High HDL Cholesterol LAB L501.6500 0-130 mg/dL Normal LDL 48 LAB L501.6600 5-40 mg/dL Normal VLDL 20 Performed By: #### L500.3400, L500.4100 #### [facility] [address] [place], [address] PULMONARY VISIT REPORT Observed: 03/01/2018 Status: F Source: [place] 5:58 AM [facility] REPOSITORY [facility] [address] [place], [place] [id number] OFFICE VISIT Date of Service: 02/28/18 MR#: [id number] Acct: [id number] Name: CARLIE MARRERO Rep #: [id number] : 1945 Provider: Bran Russell MD Age/Sex: 72/M Location: [facility] Status: Signed Assessment AND Plan 1. Simple chronic bronchitis J41.0 Plan Patient appears to be significantly improved compared to previous. Patient's fluid status is much improved and this may be part of his 15 pound weight loss. Did stress to the patient the importance of continued weight loss and the overall disease plan of care. Will repeat pulmonary function test prior to next visit, along with a walking oximetry to see if there is normalization. If there is normalization with improvement in fluid status, this would suggest congestive heart failure as the overall writing etiology. Continue with weight loss. No new medications. 2. Other secondary pulmonary hypertension I27.29 Plan Clinical suspicion for secondary pulmonary hypertension, type II. Patient is much improved on salt intake and has had a significant weight loss as a result. Will repeat pulmonary function test and walking oximetry prior to next visit. Did encourage the patient for continued weight loss given noncompliance with NOAM therapy. Patient voiced understanding. Encourage continued weight loss. Repeat pulmonary function test walking oximetry prior to next visit. Orders Orders: 3. Leg edema R60.0 Plan Patient does have some lower extremity edema at the ankle and foot. This does not appear to be clinically significant at this time. There are no signs or symptoms of infection or other complications. Reassurance was given. Reassurance given. Plan Detail Other Orders Orders: Follow Up 6 Months ([facility]) HPI 3 M FU: Chief Complaint: Follow-up shortness of breath on exertion Details: Patient is a 72-year-old male, currently under the care of Dr. Cardona, who presents for evaluation secondary to shortness of breath on exertion. Since last visit, patient reports subjective improvement in overall condition. Patient denies any ER visits, hospitalizations or prednisone burst. Patient is currently on no inhalers at this time. Patient does report that he was initiated on Lasix therapy from his cardiology office and has noted some significant improvement. Patient still reports occasional swelling of the left greater than right ankle, but overall feels that his lower extremity swelling is improved. Patient has noted some slightly increased exercise tolerance. Patient does report that he has taken an aggressive stance on sodium restriction and has noted a significant improvement. Patient states he can have increased shortness of breath when he does take a big salt load such as pizza. Patient continues to have difficulty with fatigue during the day. Patient routinely sleeps in an arm chair since he feels this is an improvement over sleeping on his arm. Patient's continues to report no snoring or apnea type episodes. Patient is not compliant with his CPAP therapy. Patient does not have a machine at home. Patient is actively attempting weight loss through dietary modification and is reporting unintentional weight loss of 15 pounds since his last visit. No testing is available for review at this time. Intake Vital Signs02/28/18 Height 5 ft 8 in 02/28/18 Weight: 110.677 kg Intake Visit Reasons: 3 M FU Order Runner Required: No Accompanied by: Is patient in pain?: No Allergies lisinopril Allergy (Verified 02/28/18 14:09) Unknown Medications Finasteride [Proscar] 5 mg PO DAILY 09/24/15 [History Confirmed 02/28/18] apixaban 5 mg tablet 5 mg PO BID #180 tab 09/16/17 [Rx Confirmed 02/28/18] atorvastatin 10 mg tablet 10 mg PO QDAY #90 tab 09/16/17 [Rx Confirmed 02/28/18] metoprolol tartrate 50 mg tablet 50 mg PO BID #180 tab 09/16/17 [Rx Confirmed 02/28/18] furosemide 40 mg tablet 40 mg PO QDAY #30 tab 11/10/17 [Rx Confirmed 02/28/18] diltiazem CD 180 mg capsule,extended release 24 hr 180 mg PO QDAY #180 cap 12/09/17 [Rx Confirmed 02/28/18] tamsulosin 0.4 mg capsule 0.8 mg PO QDAY cap 02/28/18 [History Confirmed 02/28/18] [facility] Medical History Nonrheumatic aortic (valve) stenosis (Chronic) Nonrheumatic tricuspid (valve) insufficiency (Chronic) Other secondary pulmonary hypertension (Chronic) Obstructive sleep apnea (Chronic) Emphysema lung (Chronic) COPD (chronic obstructive pulmonary disease) (Chronic) Hyperlipidemia (Chronic) Fever (Chronic) inablity to void (Chronic) Atrial fibrillation (Chronic) Bilateral pulmonary embolism (Chronic) Hypertension (Chronic) BPH (benign prostatic hyperplasia) (Chronic) Emphysema of lung (Chronic) Hyperlipidemia (Chronic) Nonrheumatic tricuspid (valve) insufficiency (Chronic) NOAM (obstructive sleep apnea) (Chronic) Other secondary pulmonary hypertension (Chronic) Persistent atrial fibrillation (Chronic) Solitary pulmonary nodule (Chronic) 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) Surgical History H/O oral surgery (Resolved) History of left cataract surgery (Resolved) Family History Mother CVA (cerebral vascular accident) Diabetes Other Family history of CVA Social History Smoking Status: Former smoker quit date: 09/13/11 pack-years: 80 how long ago did patient quit smokin second hand exposure: No alcohol intake: never substance use type: does not use caffeine: Yes Type: tea what type of physical activity do you participate in: none seatbelt use: always do you feel safe at home: Yes Review of Systems Const CONSTITUTIONAL: Negative anorexia, body ache, chills, daytime sleepiness, fever(s), night sweats, oral thrush, stops breathing during sleep, weight loss, sleeping in chair, fatigue, weight loss, weight gain, frequent colds, seasonal allergies, other, headache(s) or orthopnea EETM Ear Nose Throat Mouth: Positive hard of hearing; negative hearing normal, hoarseness, dry mouth in morning, change in vision, itchy eyes, eye pain, swallowing Difficulty, ear pain, nose bleed, headache(s), mouth pain, nasal congestion, nasal discharge, post nasal drip, sinus pain, sinus pressure, sore throat or other Cardio Cardiovascular: Positive edema Location: lower extremity Right/Left: Left; negative chest pain, chest pain at rest, chest pain with activity, irregular heart rhythm, shortness of breath when lying down, palpitations, murmur or other Resp Respiratory: Positive as per HPI and shortness of breath shortness of breath: Positive with activity; negative pain with cough, wheezing, chest congestion, cough, chest tightness, pain on inspiration, inhalers, increase use of rescue inhalers, snoring, apnea or other Gastro Gastrointestional: Negative bloody stools, change in appetite, difficulty swallowing, reflux, hematemesis, melena stool, loose stool, constipation or other Genitourinary: Negative blood in urine, nocturia, pain with urination or other Musc Musculoskeletal: Negative body pain, back pain, neck pain or other Skin/Breast Skin/Breast: Negative dry skin, itching, rash, unusual bruising, breast lump or other Neuro Neurological: Negative restless legs, confusion, weakness or other Psych Psychocological: Negative abnormal sleep pattern, anxiety, thoughts of hurting self/others, hopelessness or other Lymph Lymphatic: Negative easy bleeding, easy bruising, swollen lymph nodes or other Exam Const Constitutional: Positive conversant, cooperative, in no acute respiratory distress, healthy appearing, well developed, well nourished, good hygiene and obese; negative wearing supplemental oxygen or ill appearing Head Head: Positive normocephalic and atraumatic; negative cyanosis of lips/distal nose, microcephalic or macrocephalic Eyes Eye: Positive clear conjunctiva; negative nystagmus or scleral abnormality Ears Ear: Positive hard of hearing and external ears normal; negative hearing normal Nose Nose: Positive external nose normal, septum normal and no nasal discharge; negative epistaxis or nasal polyp Mouth Mouth: Positive oral mucosae normal, no lesions, dentures and crowded posterior oropharynx; negative post nasal drip, malodorous breath or oral thrush present Mallampati Score: III: Mallampati Score Neck Neck: Positive normal visual inspection, thick neck, full ROM, trachea midline and male neck greater than 43 cm (17 in); negative lymphadenopathy or JVD Chest Wall Chest: Positive normal inspection of the chest; negative increased A/P diameter, symmetric chest movement, crepitus or tenderness Resp lung sounds: Positive clear to auscultation, good air exchange, normal expiratory time and normal respiratory effort; negative wheezes, rhonchi, rales, wheeze present on forced exhalation or dullness to percussion Cardio Cardiac: Positive regular rate, regular rhythm, S1 normal and S2 normal; negative murmur, rub or gallop GI GI: Positive obese, normal to inspection and normal bowel sounds; negative distended or ascites Genitourinary: Positive deferred Musc Musculoskeletal: Positive steady gait and ROM normal; negative using an assistive device for ambulation, kyphosis or scoliosis Skin Pulmonary Skin Exam: Positive intact; negative rash, lesion, ulcers, erythema or scaly Pulses Pulse: Yes radial pulses present Extremities Extremities: No clubbing, Yes capillary refill normal, No cyanosis, Yes edema (Trace to 1+ ankle edema, left greater than right) Location: lower extremity Neuro Neurologic: Yes conversant, Yes no focal neuro deficits, Yes normal coordination, Yes normal concentration, Yes cooperative, Yes understands questions, Yes normal cognition Lymph Lymphatic: No lymphadenopathy Psych Appearance: Positive grossly normal Mental Status: Positive mental status grossly normal Mood: Positive congruent mood Affect: Positive normal affect Coding Level of Care Code Off vis,est,level 3 Diagnoses Simple chronic bronchitis J41.0 COPD type: chronic bronchitis Chronic bronchitis type: simple Other secondary pulmonary hypertension I27.29 Leg edema R60.0 03/01/18 0558 <Electronically signed by Bran Russell MD> Date Bran Russell MD Cosigner Signature: Date (if applicable) CC: Tomy Cardona MD PROGRESS Observed: 01/27/2018 Status: COMPLETED Source: [place] 10:12 AM [facility] REPOSITORY HNO ID: [id number] Author: Tomy Cardona Service: (none) Author Type: Physician Type: Progress Notes Filed: 01/27/2018 10:18 AM Note Text: This note was created using [employer]. Subjective Carlie Marrero is a 72 year old male here for follow up. His conditions were stable, and he mainly followed with his specialists. He needed prostate medication refills. He saw [facility] for what sounded like hematuria, and work up was being planned. Review of Systems Constitutional: Negative. Respiratory: Positive for shortness of breath. Negative for cough, chest tightness and wheezing. Cardiovascular: Positive for leg swelling. Negative for chest pain and palpitations. Gastrointestinal: Negative. Genitourinary: Positive for hematuria. Negative for difficulty urinating and dysuria. Musculoskeletal: Positive for arthralgias. ACTIVE PROBLEM LIST Elevated Prostate Specific Antigen (Psa) Benign Neoplasm of Colon Bph (Benign Prostatic Hyperplasia) Chronic Sinusitis Hypertension Bilateral Pulmonary Embolism (Hcc) Chronic Atrial Fibrillation (Hcc) Hyperlipidemia Centrilobular Emphysema (Hcc) Current Outpatient Prescriptions: furosemide (LASIX) 40 mg tablet Take 40 mg by mouth once daily. finasteride (PROSCAR) 5 mg tablet Take 1 tablet by mouth once daily. tamsulosin ER (FLOMAX) 0.4 mg cp24 Take 2 capsules by mouth daily at bedtime. atorvastatin (LIPITOR) 10 mg tablet Take 1 tablet by mouth daily at bedtime. apixaban (ELIQUIS) 5 mg tab tab(s) Take 1 tablet by mouth twice daily. diltiazem CD (CARDIZEM CD) 180 mg 24 hr capsule Take by mouth once daily. metoprolol tartrate, short acting, (LOPRESSOR) 50 mg tablet Take 1 tablet by mouth twice daily. No current facility-administered medications for this visit. Objective BP 118/70 (BP Site: Right Arm, BP Position: Sitting, BP Cuff Size: Regular Adult) Pulse 84 Temp 36.4 ?C (97.5 ?F) (Left Tympanic) Resp 16 Ht 171.5 cm (5' 7.5) Wt 112 kg (247 lb) BMI 38.11 kg/m? Physical Exam Constitutional: No distress. Eyes: Conjunctivae are normal. No scleral icterus. Neck: No JVD present. Cardiovascular: S1 normal and S2 normal. An irregularly irregular rhythm present. Exam reveals no gallop. No murmur heard. Pulmonary/Chest: No respiratory distress. He has no wheezes. He has rhonchi. He has no rales. Abdominal: Soft. There is no tenderness. Musculoskeletal: He exhibits no edema. CMP: Glucose 107 01/19/2018 BUN 21 01/19/2018 Creatinine 1.18 01/19/2018 Sodium 138 01/19/2018 Potassium 4.2 01/19/2018 Chloride 102 01/19/2018 CO2 23 01/19/2018 Calcium 9.2 01/19/2018 Assessment and Plan 1. Medicare annual wellness visit, subsequent - ICD9: V70.0, ICD10: Z00.00 (primary diagnosis) See other note. See printed instructions or information. 2. Benign prostatic hyperplasia with lower urinary tract symptoms, symptom details unspecified - ICD9: 600.01, ICD10: N40.1 Controlled. - FINASTERIDE 5 MG TABLET - TAMSULOSIN 0.4 MG CAPSULE 3. Benign neoplasm of colon, unspecified part of colon - ICD9: 211.3, ICD10: D12.6 I reviewed last recommendations from Dr. Groves. I recommended he schedule colonoscopy soon. He will discuss with Dr. Bowie at his upcoming appointment. 4. Essential hypertension - ICD9: 401.9, ICD10: I10 - good control 5. Chronic atrial fibrillation (HCC) - ICD9: 427.31, ICD10: I48.2 On apixiban. 6. Hyperlipidemia, unspecified hyperlipidemia type - ICD9: 272.4, ICD10: E78.5 - good control - Continue current medication. 7. Centrilobular emphysema (HCC) - ICD9: 492.8, ICD10: J43.2 Stable. 8. Bilateral pulmonary embolism (HCC) - ICD9: 415.19, ICD10: I26.99 Treated. Tomy Cardona MD PROGRESS Observed: 01/27/2018 Status: COMPLETED Source: PECK 9:41 AM [facility] REPOSITORY HNO ID: [id number] Author: Tomy Cardona Service: (none) Author Type: Physician Type: Progress Notes Filed: 01/27/2018 10:18 AM Note Text: Medicare Yearly Visit Medical B eligibilty date 08/13/2009 Date of last exam n/a PAST MEDICAL HISTORY Diagnosis Date - Adenoma of left adrenal gland 04/13/2016 - Benign neoplasm of colon - Benign neoplasm of rectum and anal canal - Bilateral pulmonary embolism (HCC) 10/04/2015 - Centrilobular emphysema (HCC) 04/13/2016 - Chronic atrial fibrillation (HCC) 10/04/2015 Dr. Jeff Bowie[facility] - Elevated prostate specific antigen (PSA) - ERECTILE DYSFUNCTION 09/09/2006 - Hyperlipidemia 01/06/2016 - Hypertension 10/12/2013 - Personal history of tobacco use, presenting hazards to health 08/26/2005 - Pure hypercholesterolemia - Tobacco use 03/18/2012 - Urinary retention 07/25/2012 PAST SURGICAL HISTORY Procedure Laterality Date - COLONOS W/REM POLYP SNARE 06/16/11 - PAST SURGICAL HISTORY OF 07/14/2012 closure of oroantral fistula (sinuses) - SIGMOIDOSCOPY FLEX DIAG 12/14/2011 Sigmoidoscopy, flexible - SIGMOIDS DIAG W/REM POLYP SNARE 07/23/11 Lisinopril Medications reviewed: Yes FAMILY HISTORY Problem Relation Age of Onset - Diabetes Mother - Other [OTHER] Mother old age, natural causes SOCIAL HISTORY: Social History Marital status: Spouse name: Years of education: Number of children: Social History Main Topics Smoking status: Former Smoker Packs/day: 1.50 Years: 50.00 Types: Cigarettes Quit date: 06/24/2011 Smokeless tobacco: Former User Quit date: 06/24/2012 Alcohol use: No Drug use: No Sexual activity: Yes Partners with: Female Social History Narrative Carlie is more or less sedentary occasionally exercising in the form of walking in farm. He watches his diet for sodium, low fat and low cholesterol most of the time. List of current specialists seen: Dr. Bowie, cardiology. Dr. Russell, pulmonary. Dr. Ferraro/[facility] urology. End of Live Planning discussed including patients advanced directive wishes: No I am willing to follow Carlie's advanced directives. Depression screen He in the past two weeks denies having felt down, depressed, hopeless or with little interest or pleasure in doing things. Functional Ability/Safety Screen 1. Was the patient's timed Up and Go test unsteady or longer than 30 seconds? No 2. Does the patient need help with the phone, transportation, shopping,preparing meals, housework, laundry, medications or managing money? No 3. Does your home have rugs in the hallway, lack of grab bars in the bathroom, lack of handrails on the stairs or have poor lighting? No Hearing Evaluation: wears hearing aids PHYSICAL EXAM BP 118/70 (BP Site: Right Arm, BP Position: Sitting, BP Cuff Size: Regular Adult) Pulse 84 Temp 36.4 ?C (97.5 ?F) (Left Tympanic) Resp 16 Ht 171.5 cm (5' 7.5) Wt 112 kg (247 lb) BMI 38.11 kg/m? Alert and oriented X 3: YES Body mass index is 38.11 kg/m?. Visual acuity: OD: 20/200 OS: 20/ 30 OU: 20/30. ASSESSMENT/PLAN: 72 year old male The following prevention plan was discussed during the office visit and provided to the patient: - Weight Loss - Fall avoidance - Colorectal Cancer screening Colonoscopy - Vaccination for shingles. Shingrix in 2 doses. Tomy Cardona MD CNOV Observed: 01/27/2018 Status: COMPLETED Source: PECK 8:40 AM [facility] REPOSITORY Office Visit (INTMWS) CARLIE MARRERO ([id number]) 1945 M Date Time Provider Department 01/27/18 8:40 AM TOMY CARDONA INTMikeWS During your visit today, we recorded the following information about you: Temperature Pulse Respiration Blood pressure 97.5 degrees 84/minute 16/minute 118/70 Weight Height 112 kg 1.715 m Tomy Cardona MD 01/27/2018 10:18 AM Signed Medicare Yearly Visit Medical B eligibilty date 08/13/2009 Date of last exam n/a PAST MEDICAL HISTORY Diagnosis Date - Adenoma of left adrenal gland 04/13/2016 - Benign neoplasm of colon - Benign neoplasm of rectum and anal canal - Bilateral pulmonary embolism (HCC) 10/04/2015 - Centrilobular emphysema (HCC) 04/13/2016 - Chronic atrial fibrillation (HCC) 10/04/2015 Dr. Jeff Bowie[facility] - Elevated prostate specific antigen (PSA) - ERECTILE DYSFUNCTION 09/09/2006 - Hyperlipidemia 01/06/2016 - Hypertension 10/12/2013 - Personal history of tobacco use, presenting hazards to health 08/26/2005 - Pure hypercholesterolemia - Tobacco use 03/18/2012 - Urinary retention 07/25/2012 PAST SURGICAL HISTORY Procedure Laterality Date - COLONOS W/REM POLYP SNARE 06/16/11 - PAST SURGICAL HISTORY OF 07/14/2012 closure of oroantral fistula (sinuses) - SIGMOIDOSCOPY FLEX DIAG 12/14/2011 Sigmoidoscopy, flexible - SIGMOIDS DIAG W/REM POLYP SNARE 07/23/11 Lisinopril Medications reviewed: Yes FAMILY HISTORY Problem Relation Age of Onset - Diabetes Mother - Other [OTHER] Mother old age, natural causes SOCIAL HISTORY: Social History Marital status: Spouse name: Years of education: Number of children: Social History Main Topics Smoking status: Former Smoker Packs/day: 1.50 Years: 50.00 Types: Cigarettes Quit date: 06/24/2011 Smokeless tobacco: Former User Quit date: 06/24/2012 Alcohol use: No Drug use: No Sexual activity: Yes Partners with: Female Social History Narrative Carlie is more or less sedentary occasionally exercising in the form of walking in farm. He watches his diet for sodium, low fat and low cholesterol most of the time. List of current specialists seen: Dr. Bowie, cardiology. Dr. Russell, pulmonary. Dr. Ferraro/[facility] urology. End of Live Planning discussed including patients advanced directive wishes: No I am willing to follow Carlie's advanced directives. Depression screen He in the past two weeks denies having felt down, depressed, hopeless or with little interest or pleasure in doing things. Functional Ability/Safety Screen 1. Was the patient's timed Up and Go test unsteady or longer than 30 seconds? No 2. Does the patient need help with the phone, transportation, shopping,preparing meals, housework, laundry, medications or managing money? No 3. Does your home have rugs in the hallway, lack of grab bars in the bathroom, lack of handrails on the stairs or have poor lighting? No Hearing Evaluation: wears hearing aids PHYSICAL EXAM BP 118/70 (BP Site: Right Arm, BP Position: Sitting, BP Cuff Size: Regular Adult) Pulse 84 Temp 36.4 ?C (97.5 ?F) (Left Tympanic) Resp 16 Ht 171.5 cm (5' 7.5) Wt 112 kg (247 lb) BMI 38.11 kg/m? Alert and oriented X 3: YES Body mass index is 38.11 kg/m?. Visual acuity: OD: 20/200 OS: 20/ 30 OU: 20/30. ASSESSMENT/PLAN: 72 year old male The following prevention plan was discussed during the office visit and provided to the patient: - Weight Loss - Fall avoidance - Colorectal Cancer screening Colonoscopy - Vaccination for shingles. Shingrix in 2 doses. MD Tomy Izaguirre MD 01/27/2018 10:[address] GROVES FOR COLONOSCOPY SOON. GET VACCINATED FOR SHINGLES AT YOUR LOCAL PHARMACY ([facility]) 2 DOSES 2 MONTHS APART. Tomy Cardona MD 01/27/2018 10:18 AM Signed This note was created using NoteWriter. Subjective Carlie Marrero is a 72 year old male here for follow up. His conditions were stable, and he mainly followed with his specialists. He needed prostate medication refills. He saw [facility] for what sounded like hematuria, and work up was being planned. Review of Systems Constitutional: Negative. Respiratory: Positive for shortness of breath. Negative for cough, chest tightness and wheezing. Cardiovascular: Positive for leg swelling. Negative for chest pain and palpitations. Gastrointestinal: Negative. Genitourinary: Positive for hematuria. Negative for difficulty urinating and dysuria. Musculoskeletal: Positive for arthralgias. ACTIVE PROBLEM LIST Elevated Prostate Specific Antigen (Psa) Benign Neoplasm of Colon Bph (Benign Prostatic Hyperplasia) Chronic Sinusitis Hypertension Bilateral Pulmonary Embolism (Hcc) Chronic Atrial Fibrillation (Hcc) Hyperlipidemia Centrilobular Emphysema (Hcc) Current Outpatient Prescriptions: furosemide (LASIX) 40 mg tablet Take 40 mg by mouth once daily. finasteride (PROSCAR) 5 mg tablet Take 1 tablet by mouth once daily. tamsulosin ER (FLOMAX) 0.4 mg cp24 Take 2 capsules by mouth daily at bedtime. atorvastatin (LIPITOR) 10 mg tablet Take 1 tablet by mouth daily at bedtime. apixaban (ELIQUIS) 5 mg tab tab(s) Take 1 tablet by mouth twice daily. diltiazem CD (CARDIZEM CD) 180 mg 24 hr capsule Take by mouth once daily. metoprolol tartrate, short acting, (LOPRESSOR) 50 mg tablet Take 1 tablet by mouth twice daily. No current facility-administered medications for this visit. Objective BP 118/70 (BP Site: Right Arm, BP Position: Sitting, BP Cuff Size: Regular Adult) Pulse 84 Temp 36.4 ?C (97.5 ?F) (Left Tympanic) Resp 16 Ht 171.5 cm (5' 7.5) Wt 112 kg (247 lb) BMI 38.11 kg/m? Physical Exam Constitutional: No distress. Eyes: Conjunctivae are normal. No scleral icterus. Neck: No JVD present. Cardiovascular: S1 normal and S2 normal. An irregularly irregular rhythm present. Exam reveals no gallop. No murmur heard. Pulmonary/Chest: No respiratory distress. He has no wheezes. He has rhonchi. He has no rales. Abdominal: Soft. There is no tenderness. Musculoskeletal: He exhibits no edema. CMP: Glucose 107 01/19/2018 BUN 21 01/19/2018 Creatinine 1.18 01/19/2018 Sodium 138 01/19/2018 Potassium 4.2 01/19/2018 Chloride 102 01/19/2018 CO2 23 01/19/2018 Calcium 9.2 01/19/2018 Assessment and Plan 1. Medicare annual wellness visit, subsequent - ICD9: V70.0, ICD10: Z00.00 (primary diagnosis) See other note. See printed instructions or information. 2. Benign prostatic hyperplasia with lower urinary tract symptoms, symptom details unspecified - ICD9: 600.01, ICD10: N40.1 Controlled. - FINASTERIDE 5 MG TABLET - TAMSULOSIN 0.4 MG CAPSULE 3. Benign neoplasm of colon, unspecified part of colon - ICD9: 211.3, ICD10: D12.6 I reviewed last recommendations from Dr. Groves. I recommended he schedule colonoscopy soon. He will discuss with Dr. Bowie at his upcoming appointment. 4. Essential hypertension - ICD9: 401.9, ICD10: I10 - good control 5. Chronic atrial fibrillation (HCC) - ICD9: 427.31, ICD10: I48.2 On apixiban. 6. Hyperlipidemia, unspecified hyperlipidemia type - ICD9: 272.4, ICD10: E78.5 - good control - Continue current medication. 7. Centrilobular emphysema (HCC) - ICD9: 492.8, ICD10: J43.2 Stable. 8. Bilateral pulmonary embolism (HCC) - ICD9: 415.19, ICD10: I26.99 Treated. Tomy Cardona MD Referring Provider: SELF [[id number]] Allergies As of Date: 01/27/2018 Noted Allergy Reaction LISINOPRIL 10/15/2014 3 - Cough Date Reviewed: 01/27/2018 Reviewed by: Anabella Steve LPN - Fully Assessed Reason for Visit: Physical [83] Primary Visit Diagnosis:Medicare annual wellness visit, subsequent [Z00.00] Other Visit Diagnoses:Benign prostatic hyperplasia with lower urinary tract symptoms, symptom details unspecified [N40.1] Benign neoplasm of colon, unspecified part of colon [D12.6] Essential hypertension [I10] Chronic atrial fibrillation (HCC) [I48.2] Hyperlipidemia, unspecified hyperlipidemia type [E78.5] Centrilobular emphysema (HCC) [J43.2] Bilateral pulmonary embolism (HCC) [I26.99] Order(s):finasteride (PROSCAR) 5 mg tabletTake 1 tablet by mouth once daily.Disp: 90 tabletRfl: 3 tamsulosin ER (FLOMAX) 0.4 mg [id number] 2 capsules by mouth daily at bedtime.Disp: 180 capsuleRfl: 3 Prescriptions as of 01/27/2018 Sig: FUROSEMIDE 40 MG TABLET Take 40 mg by mouth once micheline* FINASTERIDE 5 MG TABLET Take 1 tablet by mouth once d* TAMSULOSIN 0.4 MG CAPSULE Take 2 capsules by mouth micheline* ATORVASTATIN 10 MG TABLET Take 1 tablet by mouth daily * APIXABAN 5 MG TABLET Take 1 tablet by mouth twice * DILTIAZEM SR 180 MG 24 HR CAP Take by mouth once daily. METOPROLOL TARTRATE 50 MG TAB* Take 1 tablet by mouth twice * Problem List As Of Date 01/27/2018 Noted Resolved ELEVATED PROSTATE SPECIFIC ANTIGEN [R97.20] OVERWEIGHT [E66.9] INVALID FOR*04/08/2015 Unspecified disorder of prostate [N42.9] INVALID FOR*04/13/2016 Personal history of tobacco use, presenting haz*INVALID FOR*04/13/2016 Other and unspecified hyperlipidemia [E78.5] INVALID FOR*04/13/2016 ERECTILE DYSFUNCTION [F52.9] INVALID FOR*04/13/2016 Benign neoplasm of colon [D12.6] INVALID FOR* Special screening for malignant neoplasms, colo*INVALID FOR*04/13/2016 BPH (benign prostatic hyperplasia) [N40.0] INVALID FOR* Irregular heart rate [I49.9] INVALID FOR*04/13/2016 Benign neoplasm of rectum and anal canal [D12.8*INVALID FOR*04/13/2016 Chronic sinusitis [J32.9] INVALID FOR* Tobacco use [Z72.0] INVALID FOR*04/13/2016 Urinary retention [R33.9] INVALID FOR*01/27/2018 Hypertension [I10] INVALID FOR* Bilateral pulmonary embolism (HCC) [I26.99] INVALID FOR* Chronic atrial fibrillation (HCC) [I48.2] INVALID FOR* More... Hyperlipidemia [E78.5] INVALID FOR* Adenopathy, hilar [R59.0] INVALID FOR*01/27/2018 More... Adenoma of left adrenal gland [D35.02] INVALID FOR*01/27/2018 Centrilobular emphysema (HCC) [J43.2] INVALID FOR* Other instructions from your clinician: SEE DR. GROVES FOR COLONOSCOPY SOON. GET VACCINATED FOR SHINGLES AT YOUR LOCAL PHARMACY ([facility]) 2 DOSES 2 MONTHS APART. Prescriptions ordered this encounter Disp Refills Start End FINASTERIDE 5 MG TABLET 90 t* 3 01/27/2018 Class: [employer] [facility] Home Delivery Route: ORAL Sig: Take 1 tablet by mouth once daily. TAMSULOSIN 0.4 MG CAPSULE 180 * 3 01/27/2018 Class: [employer] [facility] Home Delivery Route: ORAL Sig: Take 2 capsules by mouth daily at bedtime. Medications Discontinued During This Encounter albuterol HFA (PROVENTIL HFA, VENTOL* 1 In* 0 10/14/2016 01/27/2018 Route: INHALATION Sig: Inhale 2 Puffs as instructed every 4 hours as needed for Wheezing/Shortness of Breath. Patient not taking: Reported on 01/27/2018 Disc: Reason for discontinue is not on file. finasteride (PROSCAR) 5 mg tablet 90 t* 0 12/07/2017 01/27/2018 Route: ORAL Sig: Take 1 tablet by mouth once daily. Disc: Reason for discontinue is not on file. tamsulosin ER (FLOMAX) 0.4 mg cp24 180 * 0 12/07/2017 01/27/2018 Route: ORAL Sig: Take 2 capsules by mouth daily at bedtime. Disc: Reason for discontinue is not on file. Disposition: Return in about 1 year (around 01/27/2019). Follow-up and Disposition History Recorded Encounter Status:Closed by TOMY CARDONA MD on 01/27/18 BASIC METABOLIC PANL Collected: 01/19/2018 Status: F Source: PECK 9:09 AM [facility] REPOSITORY TYPE CODE TESTS RESULT OUT OF REFERENCE UNITS RANGE LAB GLU 74-99 mg/dL High Glucose 107 Result Comment: The [place] Diabetes [employer] (ADA) provides guidance for cutoff values for fasting glucose and random glucose. The ADA defines fasting as no caloric intake for at least 8 hours. Fas ting plasma glucose results between 100 to 125 mg/dL indicate increased risk for diabetes (prediabetes). Fasting plasma glucose results greater than or equal to 126 mg/dL meet the criteria for diagnosis of diabetes. In the absence of unequivocal hyperglycemia, results should be confirmed by repeat testing. In a patient with classic symptoms of hyperglycemia or hyperglycemic crisis, random plasma glucose results greater than or equal to 200 mg/dL meet the criteria for diagnosis of diabetes. Reference: Standards of Medical Care in Diabetes 2016, [place] [employer]. Diabetes Care. 2016.39(Suppl 1). LAB BUN 9-24 mg/dL BUN 21 LAB CRET 0.73-1.22 mg/dL Creatinine 1.18 LAB NA 136-144 mmol/L Sodium 138 LAB K 3.7-5.1 mmol/L Potassium 4.2 LAB CL 97-105 mmol/L Chloride 102 LAB CO2 22-30 mmol/L CO2 23 LAB AGAP 9-18 mmol/L Anion Gap 13 LAB CA 8.5-10.2 mg/dL Calcium, Total 9.2 LAB GFRAA eGFR- Amer. >60 LAB GFRNAA . eGFR-All Other Races >60 Result Comment: eGFR (Estimated GFR) Units of measure: mL/min/1.73 meters squared eGFR is derived from the reexpressed MDRD Study equation using the following parameters: serum creatinine, age, gender and race. The creatinine assay has been calibrated to be traceable to IDMS. An eGFR <60 mL/min/1.73m2 for >3 months is consistent with chronic kidney disease. Refer to KDOQI guidelines for clinical interpretation. In patients with unstable renal function, e.g. those with acute kidney injury, the eGFR may not accurately reflect actual GFR. Performed By: #### BMP #### [facility] [employer] [address] [place], [place] [address] CARDIOLOGY VISIT Observed: 01/14/2018 Status: F Source: VALLIANT REPORT 9:23 AM [facility] REPOSITORY [address] [place] [address] OFFICE VISIT Date of Service: 01/13/18 MR#: [id number] Acct: [id number] Name: CARLIE MARRERO Rep #: [id number] : 1945 Provider: Anai Capellan Age/Sex: 72/M [place] [facility] [place] Signed [facility] Details: CARLIE MARRERO, is a 72 M who presents to the office today for a cardiovascular follow up. He was here a few weeks ago for concerns over lower extremity edema. We had decreased his Cardizem and added Lasix. Patient has a history of persistent atrial fibrillation, pulmonary embolus, moderate aortic stenosis and hyperlipidemia. Patient states that since decreasing his Cardizem his weight has stayed stable however his edema has significantly improved. He still does have some but feels that it is better. He does not have any worsening shortness of breath. He does not have any chest discomfort. He is unaware of his atrial fibrillation. He does not have any lightheadedness or dizziness. He does not have any near-syncope. Intake Vital Signs01/13/18 Height 5 ft 8 in 01/13/18 Weight: 258 lb 01/13/18 Body Mass Index (BMI) 39.2 01/13/18 Blood Pressure 142/78 Intake Visit Reasons: 4-6 WK F/U Order Runner Required: No Accompanied by: Is patient in pain?: No Allergies lisinopril Allergy (Verified 01/13/18 14:37) Unknown Medications Finasteride [Proscar] 5 mg PO DAILY 09/24/15 [History Confirmed 01/13/18] apixaban 5 mg tablet 5 mg PO BID #180 tab 09/16/17 [Rx Confirmed 01/13/18] atorvastatin 10 mg tablet 10 mg PO QDAY #90 tab 09/16/17 [Rx Confirmed 01/13/18] metoprolol tartrate 50 mg tablet 50 mg PO BID #180 tab 09/16/17 [Rx Confirmed 01/13/18] furosemide 40 mg tablet 40 mg PO QDAY #30 tab 11/10/17 [Rx Confirmed 01/13/18] diltiazem CD 180 mg capsule,extended release 24 hr 180 mg PO QDAY #180 cap 12/09/17 [Rx Confirmed 01/13/18] Ejection fraction %: 65 to 70 PFSH Medical History Nonrheumatic aortic (valve) stenosis (Chronic) Nonrheumatic tricuspid (valve) insufficiency (Chronic) Other secondary pulmonary hypertension (Chronic) Obstructive sleep apnea (Chronic) Emphysema lung (Chronic) COPD (chronic obstructive pulmonary disease) (Chronic) Hyperlipidemia (Chronic) Fever (Chronic) inablity to void (Chronic) Atrial fibrillation (Chronic) Bilateral pulmonary embolism (Chronic) Hypertension (Chronic) BPH (benign prostatic hyperplasia) (Chronic) Emphysema of lung (Chronic) Hyperlipidemia (Chronic) Nonrheumatic tricuspid (valve) insufficiency (Chronic) NOAM (obstructive sleep apnea) (Chronic) Other secondary pulmonary hypertension (Chronic) Persistent atrial fibrillation (Chronic) Solitary pulmonary nodule (Chronic) 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) Surgical History H/O oral surgery (Resolved) History of left cataract surgery (Resolved) Family History Mother CVA (cerebral vascular accident) Diabetes Other Family history of CVA Social History Smoking Status: Former smoker quit date: 09/13/11 pack-years: 80 how long ago did patient quit smokin second hand exposure: No alcohol intake: never substance use type: does not use caffeine: Yes Type: tea what type of physical activity do you participate in: none seatbelt use: always do you feel safe at home: Yes ROS Const Const: Negative for weakness, fatigue, fever(s) or headache(s) Eyes Eyes: Negative for blind spots, loss of peripheral vision or transient loss of vision ENT ENT: Negative for headache(s), dizziness, tinnitus or Nosebleed/epistaxis Cardio Chest Pain: No Palpitations: No Edema: Bilateral Muscle aches with walking: None Resp Respiratory: Negative for SOB with activity, SOB at rest, SOB orthopnea\SOB lying down or Cough GI GI: Negative nausea, vomiting, heartburn or vomiting blood/hematemesis : Negative for hematuria Musc Musc: Negative for muscle aches/ myalgia Neuro Neuro: Negative for weakness, headache(s), dizziness, near syncope, syncope, lightheadedness or orthostatic symptoms Ag Hematologic/Lymphatic: Negative for easy bleeding Endo Endo: Negative for fatigue Cardiology Exam Const Appearance: cooperative, no acute distress and well developed Nutritional Appearance: obese Orientation: alert, awake and oriented x3 Head Head: normocephalic and atraumatic Mouth: moist mucous membranes Eyes General: appearance normal, both eyes and all related structures Conjunctivae: conjunctivae normal Pupils: PERRL EOM: EOM intact bilaterally Neck Neck: normal visual inspection, no lymphadenopathy and no JVD Carotids: Negative bruit Neck Mass: Negative Neck mass Chest Chest inspection: normal inspection of the chest and symmetric chest movement Auscultation: Bilateral: Diminished Lung Sounds Cardio Palpation: normal PMI Rate: regular rate Rhythm: irregularly irregular Heart sounds: S1 normal, S2 normal and murmur; negative rub or gallop Murmur: soft, harsh, Grade 2/6 and mid systolic GI GI: obese Neuro General: alert, awake, oriented x3, CN's II-XI intact bilaterally and moves all extremities Extremities Pulses: Normal: Right Posterior Tibial Pulse, Left Posterior Tibial Pulse, Right Radial Pulse, Left Radial Pulse Lower Extremity Edema: +1: Bilateral (left greater than right), Color Changes: Bilateral Psych Psychological: normal affect Supplemental Info Echocardiogram done in 2018 demonstrated normal LV size with an estimated ejection fraction of 65%. Moderate aortic stenosis. Calculated aortic valve area of 0.97 cm . RVSP 36 mmHg. Pharmacologic nuclear stress test in 2016 was negative for ischemia. Assessment AND Plan 1. Persistent atrial fibrillation I48.1 Plan Patient is on both Cardizem and metoprolol for rate control. His edema did improve with decreasing his Cardizem. His rate still appear adequately controlled. He is anticoagulated with a factor Xa inhibitor. 2. Essential hypertension I10 3. Pure hypercholesterolemia E78.00 Plan Recent lipid profile demonstrates total cholesterol of 125, HDL 44, LDL 53. Will not make any adjustments. 4. Leg edema R60.0 Plan Patient's edema has improved he still does have some lower extremity edema though. Did encourage him to keep his legs elevated 5. Nonrheumatic aortic (valve) stenosis I35.0 Plan Patient recently had echocardiogram done. His aortic valve gradient is slightly worsened. We will continue to monitor closely. Plan Detail Other Orders Orders: Follow Up 3 Months (DJN/MMM) Coding Level of Care Code Off vis,est,level 3 Diagnoses Persistent atrial fibrillation I48.1 Atrial fibrillation type: persistent Essential hypertension I10 Hypertension type: essential hypertension Pure hypercholesterolemia E78.00 Hyperlipidemia type: pure hypercholesterolemia Leg edema R60.0 Nonrheumatic aortic (valve) stenosis I35.0 Coding Level of Care Code Off vis,est,level 3 Diagnoses Persistent atrial fibrillation I48.1 Atrial fibrillation type: persistent Essential hypertension I10 Hypertension type: essential hypertension Pure hypercholesterolemia E78.00 Hyperlipidemia type: pure hypercholesterolemia Leg edema R60.0 Nonrheumatic aortic (valve) stenosis I35.0 01/14/18 0923 <Electronically signed by Anai CHAMBERS> Date Anai CHAMBERS Cosigner Signature: Date (if applicable) CC: Tomy Cardona MD 12 LEAD EKG PERFORMED Observed: 01/13/2018 Status: F Source: JENS BY LUIS 2:25 PM [facility] [place] REPOSITORY [address] [place] [address] 12 Lead EKG performed by LUIS 01/13/18 1425 MR#: [id number] Acct: [id number] Name: CARLIE MARRERO Rep #: [id number] : 1945 72 From: Anai CHAMBERS Attending Dr: Anai Capellan Status: DEP AMB Ordering Dr: Anai Capellan Date: 01/13/18 [place] [facility] [place] M C Admitted: BMS/12 Lead EKG performed by [facility] ECG Report Interpretation Atrial fibrillation -irregular conduction Low voltage in limb leads. ABNORMAL Electronically signed on 01/24/2018 at 09:29 by Jeff Bowie 01/24/18 0931 Date Anai CHAMBERS CC: Tomy Cardona MD Date Dictated: 01/13/18 1425 Date Transcribed: 01/13/181424 Information Systems Professor: SUZAN Signed CNPTOUTREACH Observed: 01/11/2018 Status: COMPLETED Source: PECK 12:00 AM [facility] REPOSITORY Patient Outreach (FAMPST) CARLIE MARRERO ([id number]) 1945 M Date Time Provider Department 01/11/18 TOMY CARDONA FAMPST During your visit today, we recorded the following information about you: Allergies As of Date: 01/11/2018 Noted Allergy Reaction LISINOPRIL 10/15/2014 3 - Cough Date Reviewed: 10/14/2016 Reviewed by: Divine Conde LPN - Fully Assessed Visit Diagnosis:Medication management [Z79.899] Order(s):BASIC METABOLIC PNL [SQBMP] Order #: [id number] FUTURE Prescriptions as of 01/11/2018 Sig: X FINASTERIDE 5 MG TABLET Take 1 tablet by mouth once d* X TAMSULOSIN 0.4 MG CAPSULE Take 2 capsules by mouth micheline* ATORVASTATIN 10 MG TABLET Take 1 tablet by mouth daily * X ALBUTEROL SULFATE HFA 90 MCG/* Inhale 2 Puffs as instructed * Patient not taking: Reported on 01/27/2018 APIXABAN 5 MG TABLET Take 1 tablet by mouth twice * DILTIAZEM SR 180 MG 24 HR CAP Take by mouth once daily. METOPROLOL TARTRATE 50 MG TAB* Take 1 tablet by mouth twice * Problem List As Of Date 01/11/2018 Noted Resolved ELEVATED PROSTATE SPECIFIC ANTIGEN [R97.20] OVERWEIGHT [E66.9] INVALID FOR*04/08/2015 Unspecified disorder of prostate [N42.9] INVALID FOR*04/13/2016 Personal history of tobacco use, presenting haz*INVALID FOR*04/13/2016 Other and unspecified hyperlipidemia [E78.5] INVALID FOR*04/13/2016 ERECTILE DYSFUNCTION [F52.9] INVALID FOR*04/13/2016 Benign neoplasm of colon [D12.6] INVALID FOR* Special screening for malignant neoplasms, colo*INVALID FOR*04/13/2016 BPH (benign prostatic hyperplasia) [N40.0] INVALID FOR* Irregular heart rate [I49.9] INVALID FOR*04/13/2016 Benign neoplasm of rectum and anal canal [D12.8*INVALID FOR*04/13/2016 Chronic sinusitis [J32.9] INVALID FOR* Tobacco use [Z72.0] INVALID FOR*04/13/2016 Urinary retention [R33.9] INVALID FOR* Hypertension [I10] INVALID FOR* Bilateral pulmonary embolism (HCC) [I26.99] INVALID FOR* Chronic atrial fibrillation (HCC) [I48.2] INVALID FOR* More... Hyperlipidemia [E78.5] INVALID FOR* Adenopathy, hilar [R59.0] INVALID FOR* More... Adenoma of left adrenal gland [D35.02] INVALID FOR* Centrilobular emphysema (HCC) [J43.2] INVALID FOR* Encounter Status:Closed by EPIC, PRODUSER on 06/24/18 CT ABD/PELVIS W/WO Observed: 12/15/2017 Status: F Source: JENS CONTRAST 7:46 AM [facility] REPOSITORY [facility] [address] [place] [address] CT Abd/Pelvis W/WO Contrast MR#: [id number] Acct: [id number] Name: CARLIE MARRERO Rep #: [id number] : 1945 M 72 From: Eden Wu MD PCP: Tomy Cardona MD Status: REG CLI Study: CT Abd/Pelvis W/WO Contrast Date of Exam: 12/15/17 Exam# [id number] Ordering Dr: Nancy Mcfarland [employer]-C CT Abdomen And Pelvis WO/W Contrast INDICATION: Gross hematuria COMPARISON: None TECHNIQUE: CT urogram with noncontrast CT of the abdomen, postcontrast CT of the abdomen and pelvis, and delayed CT of the abdomen and pelvis. : Sagittal reformatted images. Radiation dose optimization technique applied. 100 mL of Isovue-300 were given. FINDINGS: Visualized lung bases are clear. Precontrast scan demonstrates coarse calcifications presumably associated with complex cysts in the inferior pole regions of the bilateral kidneys. Vascular calcifications are noted. Diffuse arteriosclerotic calcifications of the abdominal aorta are present. A low density 1 cm lesion is noted in the left adrenal gland compatible with a left adrenal adenoma. The liver, gallbladder, spleen, and pancreas are unremarkable. Bowel loops are nondistended. After contrast administration, there is symmetric cortical renal enhancement. The complex cystic structures in the inferior pole regions of the bilateral kidneys are associated with mild coarse calcifications, measuring 2.5 cm on the left. Multiple smaller cysts between 1 and 2 cm size seen in the inferior pole region of the right kidney.. There is no evidence of hydronephrosis. On delayed phase imaging, there is symmetric excretion of contrast. Review of the urinary bladder demonstrates severe enlargement of the prostate, measuring 8.3 cm, and the prostate extends 4 cm into the urinary bladder. Invasion of the bladder wall cannot be excluded. No other mass seen in the urinary bladder. Bladder wall appears mildly thickened. No evidence of free air or free fluid. CT/CT Abd/Pelvis W/WO Contrast IMPRESSION: CT urogram reveals bilateral complex cysts associated with coarse calcifications, smoothly marginated on the left, multiple smaller more ill-defined and lobulated cysts in the inferior pole region of the right kidney. A true mass is not identified with certainty. Follow- up in 3 months is recommended to confirm stability. Severely enlarged prostate with extension into the urinary bladder, correlate with PSA and urologic evaluation. at 0111 Reported and signed by: Eden Wu MD Electronically Signed: Eden Wu MD at 0:10 EDT Tel , Service support , CC: Nancy Mcfarland NP; Tomy Cardona MD Information Systems Professor: Signed URINALYSIS, ROUTINE Collected: 12/15/2017 Status: F Source: JENS (DIPSTICK) 7:35 AM [facility] REPOSITORY Order Comment: How was Urine Obtained? CLEAN CATCH TYPE CODE TESTS RESULT OUT OF RANGE REFERENCE UNITS LAB L400.3000 Yellow COLOR Normal Yellow LAB L400.3050 Clear Normal CLARITY Clear LAB L400.3200 Normal mg/dl Normal GLUCOSE, UR Normal LAB L400.3300 Negative mg/dL Normal BILIRUBIN URINE Negative LAB L400.3400 Negative mg/dl Normal KETONE UR Negative LAB L400.3465 1.002-1.030 Normal SP.GR. DIPSTX 1.010 LAB L400.3550 5.0 - 8.0 pH UR Normal 6.0 LAB L400.3600 Negative mg/dl PROT Normal DIPSTX Negative LAB L400.3700 Normal mg/dl Normal UROBILI Normal LAB L400.3750 Negative Normal NITRITE UR Negative LAB L400.3780 Negative /ul Normal OCCULT BLOOD-UR Negative LAB L400.3800 Negative /ul High LEUK ESTERASE 100 Performed By: #### L400.2010 #### [facility] [address] [place], [address] PSA,TOTAL - ANNUAL Collected: 12/15/2017 Status: F Source: JENS SCREEN 7:35 AM [facility] REPOSITORY TYPE CODE TESTS RESULT OUT OF REFERENCE UNITS RANGE LAB L501.9910 0.00-4.00 ng/mL High PSA,TOT 5.42 SCREEN Result Comment: This test was performed using the TPSA assay method for the [employer] chemistry system. Values obtained with different assay methods cannot be used interchangably. When changing PSA assays in the course of monitoring a patient, additional sequential testing should be carried out to confirm baseline values. Performed By: #### L501.9910 #### [facility] [address] [place], [address] Observed: 12/15/2017 Status: F Source: JENS CULTURE, URINE 7:35 AM [facility] REPOSITORY Urine Culture ORGANISM 1: Mixed Gram Positive Organisms Oakes Count 1000-10,000 MIX CULTURE Mixed contaminants. Submit a new specimen if indicated. Performed By: #### M100.0650 #### [facility] [address] [place], [address] CARDIOLOGY VISIT Observed: 12/10/2017 Status: F Source: JENS REPORT 4:10 PM [facility] REPOSITORY [facility] [address] [place] [address] OFFICE VISIT Date of Service: 12/09/17 MR#: [id number] Acct: [id number] Name: CARLIE MARRERO Rep #: [id number] : 1945 Provider: Anai Capellan Age/Sex: 72/M [place] [facility] [place]: Signed HPI HPI Details: CARLIE MARRERO, is a 72 M who presents to the office today for a cardiovascular follow up. Patient has a history of persistent atrial fibrillation, pulmonary embolus, aortic stenosis and hyperlipidemia. Patient had seen pulmonary earlier this month and was concerned with increase in lower extremity edema and weight gain. She was concerned about his aortic stenosis and is updated echocardiogram. Echocardiogram did demonstrate moderate aortic stenosis with a calculated aortic valve area of 0.9 cm . We had increased his Lasix to 40 mg daily. Patient called our office back and stated that this did help with his lower extremity edema. Pt feels that his weight not correct when he see pulmonary. He sts that his weight at home has been stable around 255. He does not have any chest pain/heaviness. He does not feel that his breathing is any worse than before. He does not do much activity. He does not have any palpitations that he is aware of. He has never been aware of his fast heart rates. He does not have any orthopnea. He does sleep in a recliner. This is newer. He sleep in a recliner because of his NOAM. He was not able to tolerate CPAP. He does not feel that his edema is worse but that it is chronic. Intake Vital Signs12/09/17 Height 5 ft 8 in 12/09/17 Weight: 257 lb 12/09/17 Body Mass Index (BMI) 39.0 12/09/17 Blood Pressure 118/74 12/09/17 Blood Pressure Location Lt brachial Intake Visit Reasons: per MMM Order Runner Required: No Accompanied by: Is patient in pain?: No Allergies lisinopril Allergy (Verified 12/09/17 09:29) Unknown Medications Finasteride [Proscar] 5 mg PO DAILY 09/24/15 [History Confirmed 12/09/17] apixaban 5 mg tablet 5 mg PO BID #180 tab 09/16/17 [Rx Confirmed 12/09/17] atorvastatin 10 mg tablet 10 mg PO QDAY #90 tab 09/16/17 [Rx Confirmed 12/09/17] metoprolol tartrate 50 mg tablet 50 mg PO BID #180 tab 09/16/17 [Rx Confirmed 12/09/17] furosemide 40 mg tablet 40 mg PO QDAY #30 tab 11/10/17 [Rx Confirmed 12/09/17] diltiazem CD 180 mg capsule,extended release 24 hr 180 mg PO QDAY #180 cap 12/09/17 [Rx Confirmed 12/09/17] Ejection fraction %: 65 to 70 PFSH Medical History Nonrheumatic aortic (valve) stenosis (Chronic) Nonrheumatic tricuspid (valve) insufficiency (Chronic) Other secondary pulmonary hypertension (Chronic) Obstructive sleep apnea (Chronic) Emphysema lung (Chronic) COPD (chronic obstructive pulmonary disease) (Chronic) Hyperlipidemia (Chronic) Fever (Chronic) inablity to void (Chronic) Atrial fibrillation (Chronic) Bilateral pulmonary embolism (Chronic) Hypertension (Chronic) BPH (benign prostatic hyperplasia) (Chronic) Emphysema of lung (Chronic) Hyperlipidemia (Chronic) Nonrheumatic tricuspid (valve) insufficiency (Chronic) NOAM (obstructive sleep apnea) (Chronic) Other secondary pulmonary hypertension (Chronic) Persistent atrial fibrillation (Chronic) Solitary pulmonary nodule (Chronic) 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) Surgical History H/O oral surgery (Resolved) History of left cataract surgery (Resolved) Family History Mother CVA (cerebral vascular accident) Diabetes Other Family history of CVA Social History Smoking Status: Former smoker quit date: 09/13/11 pack-years: 80 how long ago did patient quit smokin second hand exposure: No alcohol intake: never substance use type: does not use caffeine: Yes Type: tea what type of physical activity do you participate in: none seatbelt use: always do you feel safe at home: Yes ROS Const Const: Negative for weakness, fatigue, fever(s) or headache(s) Eyes Eyes: Negative for blind spots, loss of peripheral vision or transient loss of vision ENT ENT: Negative for headache(s), dizziness, tinnitus or Nosebleed/epistaxis Cardio Chest Pain: No Palpitations: No Edema: Bilateral Muscle aches with walking: None Resp Respiratory: Negative for SOB with activity, SOB at rest, SOB orthopnea\SOB lying down or Cough GI GI: Negative nausea, vomiting, heartburn or vomiting blood/hematemesis : Negative for hematuria Musc Musc: Negative for muscle aches/ myalgia Neuro Neuro: Negative for weakness, headache(s), dizziness, near syncope, syncope, lightheadedness or orthostatic symptoms Ag Hematologic/Lymphatic: Negative for easy bleeding Endo Endo: Negative for fatigue Cardiology Exam Const Appearance: cooperative, no acute distress and well developed Nutritional Appearance: obese Orientation: alert, awake and oriented x3 Head Head: normocephalic and atraumatic Mouth: moist mucous membranes Eyes General: appearance normal, both eyes and all related structures Conjunctivae: conjunctivae normal Pupils: PERRL EOM: EOM intact bilaterally Neck Neck: normal visual inspection, no lymphadenopathy and no JVD Carotids: Negative bruit Neck Mass: Negative Neck mass Chest Chest inspection: normal inspection of the chest and symmetric chest movement Auscultation: Bilateral: Diminished Lung Sounds Cardio Palpation: normal PMI Rate: regular rate Rhythm: irregularly irregular Heart sounds: S1 normal, S2 normal and murmur; negative rub or gallop Murmur: soft, harsh, Grade 2/6 and mid systolic GI GI: normal to inspection, soft, no hepatosplenomegaly, bowel sounds present and obese; negative tender Neuro General: alert, awake, oriented x3, CN's II-XI intact bilaterally and moves all extremities Extremities Pulses: Normal: Right Posterior Tibial Pulse, Left Posterior Tibial Pulse, Right Radial Pulse, Left Radial Pulse Lower Extremity Edema: +2: Bilateral (extends up to knees), Color Changes: Bilateral Psych Psychological: normal affect Supplemental Info Echocardiogram done in 2018 demonstrated normal LV size with an estimated ejection fraction of 65%. Moderate aortic stenosis. Calculated aortic valve area of 0.97 cm . RVSP 36 mmHg. Pharmacologic nuclear stress test in 2016 was negative for ischemia. Assessment AND Plan 1. Nonrheumatic aortic (valve) stenosis I35.0 Plan - TRISH Amezquita Patient recently had echocardiogram done. His aortic valve gradient is slightly worsened. Patient will likely need need to have this further evaluated in the near future however would like to optimize his medications prior to doing so. 2. Leg edema R60.0 Plan - TRISH Amezquita Patient's lower extremity edema is likely related to his Cardizem. We will have him decrease this to once a day. He is on Cardizem to help with rate control for his atrial fibrillation. He will also be given a prescription for Lasix. We will continue to follow with patient closely. Patient may need additional testing to further evaluate his lower extremity edema as he does have COPD and moderate to severe aortic stenosis. Orders Orders: 3. Persistent atrial fibrillation I48.1 Plan - TRISH Amezquita Patient is on both Cardizem and metoprolol for rate control. With his lower extremity edema we are decreasing his Cardizem to once a day. Will need to continue to monitor this closely. He is anticoagulated with a factor Xa inhibitor. 4. Essential hypertension I10 Plan - TRISH Amezquita As mentioned above we are decreasing his Cardizem. He was advised to monitor his blood pressure closely. We may need to add additional medication for blood pressure control. Orders Orders: 5. Pure hypercholesterolemia E78.00; E78.0 Plan - TRISH Amezquita Recent lipid profile demonstrates total cholesterol of 125, HDL 44, LDL 53. Will not make any adjustments. Plan Detail Other Orders Orders: Other Medications Changed: Additional Comments - TRISH Amezquita The above patient was discussed with Dr. Miguel Bowie's absence, he agrees with plan of care. Thank you for allowing us to participate in patient's plan of care, if you have any questions please do not hesitate to call. This note was generated using a voice recognition system and there may be incorrect words, spelling or punctuation errors that were not noted when reviewing the office note prior to saving. Follow Up 6 Weeks (MMM, cancel appt with DJN in 2 weeks) Coding Level of Care Code Off vis,est,level 4 Diagnoses Nonrheumatic aortic (valve) stenosis I35.0 Leg edema R60.0 Persistent atrial fibrillation I48.1 Atrial fibrillation type: persistent Essential hypertension I10 Hypertension type: essential hypertension Pure hypercholesterolemia E78.00; E78.0 Hyperlipidemia type: pure hypercholesterolemia Coding Level of Care Code Off vis,est,level 4 Diagnoses Nonrheumatic aortic (valve) stenosis I35.0 Leg edema R60.0 Persistent atrial fibrillation I48.1 Atrial fibrillation type: persistent Essential hypertension I10 Hypertension type: essential hypertension Pure hypercholesterolemia E78.00; E78.0 Hyperlipidemia type: pure hypercholesterolemia 12/09/17 1753 <Electronically signed by Anai Capellan PA> Date Anai CHAMBERS 12/10/17 1610<Electronically signed by Christopher Rivera MD> Cosigner Signature: Date (if applicable) Christopher Rivera MD CC: Tomy Cardona MD BASIC METABOLIC Collected: 12/09/2017 Status: F Source: JENS PROFILE (BMP) 12:15 PM [facility] REPOSITORY TYPE CODE TESTS RESULT OUT OF RANGE REFERENCE UNITS LAB L501.0100 74-106 mg/dL Normal GLU 101 Result Comment: Fasting Glucose result from 100 to 125 mg/dL suggests IMPAIRED HOMEOSTASIS per A.D.A. criteria. Please note revised GLUCOSE reference range effective 2017. LAB L501.1000 7-18 mg/dL High BUN 23 LAB L501.1100 0.70-1.30 mg/dL Normal CREAT,SERUM 1.09 Result Comment: The validity of the calculated GFR AND GFRAA in patients over 70 years has not been determined. Clinical correlation is essential. LAB L501.1110 >60 mL/min Normal EST GFR 70 Result Comment: Non- GFR Calc LAB L501.1115 >60 mL/min Normal EST GFR - AA 85 Result Comment: GFR Calc LAB L501.1300 10-20 RATIO High BUN/CRE 21.1 LAB L501.2200 8.5-10.1 mg/dL CA Normal 8.7 LAB L501.5300 136-145 mmol/L NA Normal 141 LAB L501.5600 3.5-5.1 mmol/L K Normal 4.5 LAB L501.5900 98-107 mmol/L CL Normal 107 LAB L501.6100 21.0-32.0 mmol/L Normal CO2 24.0 LAB L501.6200 5-15 Normal GAP 10 Performed By: #### L500.2500 #### [facility] [address] [facility] [place], [place], [address] PULMONARY VISIT REPORT Observed: 11/09/2017 Status: F Source: VALLIANT 3:56 PM [facility] REPOSITORY [facility] [address] [place] [address] OFFICE VISIT Date of Service: 11/09/17 MR#: [id number] Acct: [id number] Name: CARLIE MARRERO Rep #: [id number] : 1945 Provider: Erica Warner Age/Sex: 72/M Location: [facility] Status: Signed Assessment AND Plan 1. Leg edema R60.0 Status Acute Plan New. The patient does have significant lower extremity edema, 3+ to the knees. He has gained 10 pounds in the past 3 weeks. I suspect he has heart failure with preserved EF. He currently follows with [facility] cardiology. From a pulmonary standpoint we would suggest that she received a right heart catheterization to identify and quantify pulmonary hypertension and possibly heart failure. I will contact the cardiology group to see if they can follow up with this in the near future. Patient is agreeable to this plan. Discussed the case with Dr. Russell. 2. Bilateral pulmonary embolism I26.99 Status Chronic Plan Continue current anticoagulation. He does not currently require supplemental oxygen during ambulation. He will continue to monitor this at home. Currently he only checks his saturation at rest, has been encouraged to check it when he becomes winded on ambulation. He is also been advised to contact the office if he notices that his saturations are less than 89%. Additional testing will be provided if this is the case. 3. PAH (pulmonary artery hypertension) I27.21 Status Chronic Plan Patient would benefit from a right heart catheterization. Will defer to cardiology. Appreciate input. Plan Detail Follow Up 3 Months (HAYDER) HPI Edema: Chief Complaint: SWELLING HPI Comments Details: This patient presents the office today to follow- up after having additional testing done. He is ambulatory, currently on room air and accompanied by his . He reports persistent shortness of breath on exertion, but states that it has not worsened. He does admit that he does very little physical activity. He has noticed an increase in lower extremity edema. He denies any chest pain or palpitations. He denies any cough, wheezing or chest tightness. He continues to sleep on 3 pillows to treat his obstructive sleep apnea. He and his both report that he no longer snores if sleeping in an elevated position. He states that he does not add salt to his diet, however admits that he is not currently a label reader. He does not avoid salt laden foods. He routinely eats choi and sausage. Walking oximetry completed on October 18, 2017 shows that the patient was able to ambulate 1121 feet over 6 minutes, his lowest oxygen saturation was noted to be 90% which occurred at minute 2. He then had a higher oxygen saturations and did not require supplemental oxygen during the entire test, before or after. Echocardiogram was completed on October 18, 2017 and showed an EF of 65%. PASP was noted to be 36 mmHg. Intake Vital Signs11/09/17 Height 5 ft 8 in 11/09/17 Weight: 265 lb Intake Visit Reasons: Edema Accompanied by: Allergies lisinopril Allergy (Verified 11/09/17 14:08) Unknown Medications Finasteride [Proscar] 5 mg PO DAILY 09/24/15 [History Confirmed 11/09/17] Tamsulosin HCl [Flomax] 0.4 mg PO DAILY 09/24/15 [History Confirmed 11/09/17] Zolpidem Tartrate [Ambien] 5 mg ORAL QHS PRN PRN #10 tab 09/26/15 [Rx Confirmed 11/09/17] apixaban 5 mg tablet 5 mg PO BID #180 tab 09/16/17 [Rx Confirmed 11/09/17] atorvastatin 10 mg tablet 10 mg PO QDAY #90 tab 09/16/17 [Rx Confirmed 11/09/17] diltiazem CD 180 mg capsule,extended release 24 hr 180 mg PO Q12 #180 cap 09/16/17 [Rx Confirmed 11/09/17] metoprolol tartrate 50 mg tablet 50 mg PO BID #180 tab 09/16/17 [Rx Confirmed 11/09/17] [facility] Medical History Fever (Chronic) inablity to void (Chronic) Atrial fibrillation (Acute) Aortic stenosis (Acute) Bilateral pulmonary embolism (Chronic) Hypertension (Chronic) Abnormal electrocardiogram (Acute) BPH (benign prostatic hyperplasia) (Acute) Nonrheumatic aortic (valve) stenosis (Acute) Nonrheumatic tricuspid (valve) insufficiency (Acute) Emphysema of lung (Chronic) Hyperlipidemia (Chronic) NOAM (obstructive sleep apnea) (Chronic) Other secondary pulmonary hypertension (Chronic) Persistent atrial fibrillation (Chronic) Solitary pulmonary nodule (Chronic) 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) Surgical History H/O oral surgery (Resolved) History of left cataract surgery (Resolved) Family History Mother CVA (cerebral vascular accident) Diabetes Social History Smoking Status: Former smoker quit date: 09/13/11 pack-years: 80 second hand exposure: No alcohol intake: never substance use type: does not use Review of Systems Const CONSTITUTIONAL: Positive sleeping in chair; negative anorexia, body ache, chills, daytime sleepiness, fever(s), night sweats, oral thrush, stops breathing during sleep, weight loss, fatigue, weight loss, weight gain, frequent colds, seasonal allergies, other, headache(s) or orthopnea EETM Ear Nose Throat Mouth: Positive hearing normal; negative hard of hearing, hoarseness, dry mouth in morning, change in vision, itchy eyes, eye pain, swallowing Difficulty, ear pain, nose bleed, headache(s), mouth pain, nasal congestion, nasal discharge, post nasal drip, sinus pain, sinus pressure, sore throat or other Cardio Cardiovascular: Positive irregular heart rhythm and edema Location: lower extremity; negative chest pain, chest pain at rest, chest pain with activity, shortness of breath when lying down, palpitations, murmur or other Resp Respiratory: Positive as per HPI; negative shortness of breath, pain with cough, wheezing, chest congestion, cough, chest tightness, pain on inspiration, inhalers, increase use of rescue inhalers, snoring, apnea or other Gastro Gastrointestional: Negative bloody stools, change in appetite, difficulty swallowing, reflux, hematemesis, melena stool, loose stool, constipation or other Genitourinary: Positive nocturia; negative blood in urine, pain with urination or other Musc Musculoskeletal: Negative body pain, back pain, neck pain or other Skin/Breast Skin/Breast: Negative dry skin, itching, rash, unusual bruising, breast lump or other Neuro Neurological: Negative restless legs, confusion, weakness or other Psych Psychocological: Positive anxiety; negative abnormal sleep pattern, thoughts of hurting self/others, hopelessness or other Lymph Lymphatic: Negative easy bleeding, easy bruising, swollen lymph nodes or other Exam Const Constitutional: Positive conversant, cooperative, in no acute respiratory distress, healthy appearing, well developed, well nourished, good hygiene and obese Head Head: Positive normocephalic and atraumatic; negative cyanosis of lips/distal nose Eyes Eye: Positive clear conjunctiva and nystagmus; negative scleral abnormality Ears Ear: Positive hearing normal and external ears normal; negative hard of hearing Nose Nose: Positive external nose normal and no nasal discharge; negative epistaxis Mouth Mouth: Positive oral mucosae normal, no lesions, good dentition and crowded posterior oropharynx; negative post nasal drip, malodorous breath or oral thrush present Mallampati Score: III: Mallampati Score Neck Neck: Positive normal visual inspection, full ROM, trachea midline, thick neck and male neck greater than 43 cm (17 in); negative lymphadenopathy, JVD or tender Chest Wall Chest: Positive normal inspection of the chest and symmetric chest movement; negative increased A/P diameter Resp lung sounds: Positive diminished, clear to auscultation, normal expiratory time and normal respiratory effort; negative wheezes, wheeze present on forced exhalation, dullness to percussion, rales or rhonchi Cardio Cardiac: Positive regular rate, regular rhythm, S1 normal and S2 normal; negative murmur GI GI: Positive normal to inspection, normal bowel sounds and obese; negative distended Genitourinary: Positive deferred Musc Musculoskeletal: Positive steady gait and ROM normal; negative kyphosis or scoliosis Skin Pulmonary Skin Exam: Positive intact; negative rash, lesion, ulcers, erythema, scaly or dermal atrophy Pulses Pulse: Yes pulses normal x4 extremities Extremities Extremities: Yes edema Location: lower extremity location: Bilateral leg swelling: pitting pitting: +3 (to the knees), Yes capillary refill normal, No clubbing, No cyanosis, No stasis dermatitis Neuro Neurologic: Yes conversant, Yes no focal neuro deficits, Yes normal cognition, Yes normal coordination, Yes cooperative, Yes normal concentration, Yes understands questions Lymph Lymphatic: No lymphadenopathy, No tenderness, No cervical adenopathy, No axillary adenopathy Psych Appearance: Positive grossly normal, eye contact and well kempt Mental Status: Positive mental status grossly normal Mood: Positive congruent mood Affect: Positive normal affect Coding Level of Care Code Off vis,est,level 4 Diagnoses Leg edema R60.0 Bilateral pulmonary embolism I26.99 PAH (pulmonary artery hypertension) I27.21 11/09/17 1556 <Electronically signed by Erica PECK> Date Erica PECK Cosigner Signature: Date (if applicable) CC: Tomy Cardona MD ECHO, COMPLETE W/ Observed: 10/18/2017 Status: F Source: JENS CONTRAST 3:16 PM [facility] REPOSITORY [facility] Cardi[facility] Services [address] [place] [address] Echo Complete W/ Contrast 10/18/17 1010 MR#: [id number] Acct: [id number] Name: CARLIE MARRERO Rep #: [id number] : 1945 72 From: Christopher Rivera MD Attending Dr: Bran Russell MD Status: REG CLI Ordering Dr: Bran Russell MD Date: 10/18/17 Location: CVS Sex: M C Admitted: Reason For Study: DYSPNEA Procedure This was a 2D Doppler, Color Flow transthoracic echocardiogram. Contrast injection was performed. The study was technically difficult. Exam performed in department. Left Ventricle Normal LV size. Left ventricular systolic function is normal. The estimated ejection fraction is 65 %. No regional wall motion abnormalities noted. Right Ventricle Normal RV size. Normal systolic function. Atria The left atrium is moderately enlarged. The right atrium is mildly enlarged. Mitral Valve Normal mitral valve. Tricuspid Valve Normal tricuspid valve. Mild (1+) tricuspid valve insufficiency. Pulmonary artery systolic pressure is 36 mmHg. Aortic Valve Trisinus/trileaflet aortic valve. Mild focal aortic valve calcification. Peak aortic valve gradient 32 mmHg. Mean aortic valve gradient 18 mmHg. Moderate aortic stenosis. Calculated aortic valve area (continuity equation) is 0.97 cm2. Pulmonic Valve Normal pulmonic valve. Great Vessels Mildly dilated aortic root. The pulmonary artery is normal size. Normal inferior vena cava. Pericardium/Pleural No pericardial effusion. Medication 22 gauge I.V. with prn adaptor inserted into right arm. Diluted definity 3ml given slow IV push to enhance endocardial definition. MMode/2D Measurements AND Calculations LVIDd: 4.4 cm IVSd: 1.1 cm LVOT diam: 2.1 cm LVIDs: 3.1 cm LVPWd: 1.1 cm LVOT area: 3.3 cm2 RVDd: 4.1 cm FS: 28.9 % Ao root diam: 3.8 cm LAV(MOD-bp): 93.5 ml EDV(MOD-sp4): 92.9 ml LA dimension: 5.9 cm LAV(MOD-bp) Indexed: 41.3 ml/m2 ESV(MOD-sp4): 19.2 ml LAV(MOD-sp2): 86.2 ml EF(MOD-sp4): 79.3 % LAV(MOD-sp4): 95.6 ml EDV(MOD-sp2): 61.9 ml SV(MOD-sp4): 73.7 ml SV(MOD-sp2): 53.0 ml EF(MOD-sp2): 85.5 % Aortic Valve Planimetry: 1.2 cm2 LA A4 area: 29.0 cm2 RA A4 area: 26.5 cm2 Doppler Measurements AND Calculations MV E max michael: 143.7 cm/sec Ao V2 max: 283.9 cm/sec LV V1 max: 83.3 cm/sec Ao max P.4 mmHg LV V1 max P.3 mmHg Ao V2 mean: 196.8 cm/sec LV V1 mean P.5 mmHg Ao mean P.4 mmHg LV V1 mean: 52.0 cm/sec Ao V2 VTI: 52.0 cm LV V1 VTI: 13.9 cm PAIGE(I,D): 0.88 cm2 PAIGE(V,D): 0.97 cm2 SV(LVOT): 46.0 ml PA V2 max: 197.5 cm/sec TR max michael: 278.7 cm/sec TR max P.2 mmHg Interpretation Summary Normal LV size. Left ventricular systolic function is normal. The estimated ejection fraction is 65 %. Moderate aortic stenosis. Calculated aortic valve area (continuity equation) is 0.97 cm2. Pulmonary artery systolic pressure is 36 mmHg. Contrast injection was performed. Ordering Physician: Bran Russell Referring Physician: TOMY CARDONA Performed By: Nara Veronica, ALYSIA, RVT 10/18/17 1516 Date Christopher Rivera MD CC: Bran Russell MD; Tomy Cardona MD Date Dictated: 10/18/17 1010 Date Transcribed: 10/18/17 1516 Information Systems Professor: Signed 6 MINUTE WALK TEST Observed: 10/18/2017 Status: F Source: JENS 3:00 PM [facility] REPOSITORY [facility] Pulmonary Services/Neurology [address] [place] [address] MR#: [id number] Acct: [id number] Name: CARLIE MARRERO Rep #: [id number] : 1945 72 From: Bran Russell MD Referring Dr: Bran Russell MD Date: Ordering Dr: Sex: M C Location: [facility] PSN 6 Minute Walk Test - 6 Minute Walk Test 6 Minute Walk Test: 6 Minute Walk Test PSN:6-Minute Walk Test Start: 10/18/17 11:23 Freq: Status: Active Protocol: RESP.6MINW Document 10/18/17 11:23 LOU (Rec: 10/18/17 11:28 A [id number]) 6 Minute Walk Test Date Performed 10/18/17 Time Performed 11:10 Height 5 ft 8 in Weight: 115.666 kg Weight in Pounds 255.[address]: Bran Russell Assistive device used: None Pre-test Oxygen Delivery Method Room Air Pulse Ox (%) 92 Pulse Rate (60-100 beats/min) 92 Dyspnea Terrell Scale (0-10) 0 Exertion Terrell Scale (6-20) 6 1st minute Oxygen Delivery Method Room Air Pulse Ox (%) 93 Pulse Rate (60-100 beats/min) 100 2nd minute Oxygen Delivery Method Room Air Pulse Ox (%) 90 Pulse Rate (60-100 beats/min) 97 3rd minute Oxygen Delivery Method Room Air Pulse Ox (%) 91 Pulse Rate (60-100 beats/min) 98 4th minute Oxygen Delivery Method Room Air Pulse Ox (%) 92 Pulse Rate (60-100 beats/min) 94 5th minute Oxygen Delivery Method Room Air Pulse Ox (%) 93 Pulse Rate (60-100 beats/min) 109 H 6th minute Oxygen Delivery Method Room Air Pulse Ox (%) 93 Pulse Rate (60-100 beats/min) 113 H Post-test Oxygen Delivery Method Nasal Cannula Pulse Ox (%) 93 Pulse Rate (60-100 beats/min) 119 H Dyspnea Terrell Scale (0-10) 3 Exertion Terrell Scale (6-20) 13 Full Laps Walked 19 Partial Lap, Number of Tiles Walked 0 Total Distance Walked (ft) 1121 - Interpretation Interpretation: The patient was able to ambulate 1121 feet over the course of 6 minutes on room air with no assistive devices or breaks. The patient did experience some desaturation as low as 90%. Some tachycardia was noted, consistent with deconditioning. Patient did report knee pain with exertion. These findings are consistent with a respiratory limitation exercise tolerance - Recommendations Recommendations: Supplemental oxygen is indicated at this time. Patient will need to be followed closely given level of desaturation 10/18/17 1500 <Electronically signed by Bran Russell MD> Date Bran Russell MD CC: Date Dictated: 10/18/17 1459 Date Transcribed: 10/18/17 1459 Information Systems Professor: Bran Russell Signed PULMONARY VISIT REPORT Observed: 10/12/2017 Status: F Source: JENS 10:56 AM [facility] REPOSITORY [facility] [address] [place] [address] OFFICE VISIT Date of Service: 10/12/17 MR#: [id number] Acct: [id number] Name: CARLIE MARRERO Rep #: [id number] : 1945 Provider: Bran Russell MD Age/Sex: 72/M Location: [facility] Status: Signed Assessment AND Plan 1. Aortic stenosis Q25.3 Plan Patient is reporting increased dyspnea on exertion, lower extremity edema and has had a 16% decrease in total lung capacity compared to previous study. Some concern the patient may have had progression of his aortic stenosis or pulmonary hypertension leading to current symptomatology. Will obtain a walking oximetry to see if patient qualifies for supplemental oxygen. Patient may need to be placed on Lasix therapy. Previous evaluation by cardiology suggested that lower extremity edema was secondary to Cardizem. If patient is found to require supplemental oxygen, a cardiology evaluation may need to be moved up for optimization of cardiac function. Obtain walking oximetry and echocardiogram. Orders Orders: 2. Bilateral pulmonary embolism I26.99 Plan Patient is currently on anticoagulation and has been compliant with therapy. No complications have been noted. Patient does have a decrease in total lung capacity. If cardiac etiology is unfounded, a CT scan of the chest may be indicated for evaluation for possible pulmonary fibrosis. Continue with anticoagulation. CT scan of the chest if not cardiac etiology. Orders Orders: 3. Atrial fibrillation I48.91 Plan Patient does have atrial fibrillation on physical exam. However, patient is currently rate controlled. It is unlikely that uncontrolled A. fib with RVR leading to lower extremity edema. Patient is tolerating anticoagulation well. Patient is actively followed by cardiology. Continue anticoagulation and rate control. HPI 6 M FU: Chief Complaint: Lower extremity swelling Details: Patient is a 72-year-old male who presents for evaluation secondary to lower extremity swelling. Since last visit, patient denies any ER visits, hospitalizations or prednisone burst. Patient is still on no inhalers. Patient did complete a complete pulmonary function test prior to this visit. Patient has been compliant with his anticoagulation. Patient denies any complications such as hemoptysis, melena or hematochezia. Patient has noted some increased shortness of breath on exertion, but does admit that he does not tend to exercise on a regular basis. Patient was seen by cardiology and has noted some increased lower extremity edema that was attributed to Cardizem therapy. Patient readily admits that he does not check his weight on a daily basis and does not follow through with dietary restrictions with low-salt diet. Patient is not reporting any chest pain, diaphoresis or syncope with exertion. Patient has not noted any sores of the lower extremities. No weeping of the lower extremities has been reported. Patient does report that his skin can turn red at night, but it typically improves with elevation. Patient reports occasional palpitations, but not enough for him to stop but is doing. Testing personally reviewed with the patient Complete PFT (September 14, 2017): Mild mixed ventilatory defect with reduction in diffusing capacity out of proportion and significant worsening in lung volumes compared to previous. Intake Vital Signs10/12/17 Height 5 ft 8 in 10/12/17 Weight: 116.12 kg Intake Visit Reasons: 6 M FU Accompanied by: Self Allergies lisinopril Allergy (Verified 10/12/17 10:09) Unknown Medications Finasteride [Proscar] 5 mg PO DAILY 09/24/15 [History Confirmed 10/12/17] Tamsulosin HCl [Flomax] 0.4 mg PO DAILY 09/24/15 [History Confirmed 10/12/17] Zolpidem Tartrate [Ambien] 5 mg ORAL QHS PRN PRN #10 tab 09/26/15 [Rx Confirmed 10/12/17] apixaban 5 mg tablet 5 mg PO BID #180 tab 09/16/17 [Rx Confirmed 10/12/17] atorvastatin 10 mg tablet 10 mg PO QDAY #90 tab 09/16/17 [Rx Confirmed 10/12/17] diltiazem CD 180 mg capsule,extended release 24 hr 180 mg PO Q12 #180 cap 09/16/17 [Rx Confirmed 10/12/17] metoprolol tartrate 50 mg tablet 50 mg PO BID #180 tab 09/16/17 [Rx Confirmed 10/12/17] [facility] Medical History Fever (Chronic) inablity to void (Chronic) Atrial fibrillation (Acute) Aortic stenosis (Acute) Bilateral pulmonary embolism (Acute) Hypertension (Chronic) Abnormal electrocardiogram (Acute) BPH (benign prostatic hyperplasia) (Acute) Nonrheumatic aortic (valve) stenosis (Acute) Nonrheumatic tricuspid (valve) insufficiency (Acute) Emphysema of lung (Chronic) Hyperlipidemia (Chronic) NOAM (obstructive sleep apnea) (Chronic) Other secondary pulmonary hypertension (Chronic) Persistent atrial fibrillation (Chronic) Solitary pulmonary nodule (Chronic) 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) Surgical History H/O oral surgery (Resolved) History of left cataract surgery (Resolved) Family History Mother CVA (cerebral vascular accident) Diabetes Social History Smoking Status: Former smoker quit date: 09/13/11 pack-years: 80 second hand exposure: No alcohol intake: never substance use type: does not use Review of Systems Const CONSTITUTIONAL: Negative anorexia, body ache, chills, daytime sleepiness, fever(s), night sweats, oral thrush, stops breathing during sleep, weight loss, sleeping in chair, fatigue, weight loss, weight gain, frequent colds, seasonal allergies, other, headache(s) or orthopnea EETM Ear Nose Throat Mouth: Positive hard of hearing; negative hearing normal, hoarseness, dry mouth in morning, change in vision, itchy eyes, eye pain, swallowing Difficulty, ear pain, nose bleed, headache(s), mouth pain, nasal congestion, nasal discharge, post nasal drip, sinus pain, sinus pressure, sore throat or other Cardio Cardiovascular: Positive irregular heart rhythm and edema Location: lower extremity (lauren feet); negative chest pain, chest pain at rest, chest pain with activity, shortness of breath when lying down, palpitations, murmur or other Resp Respiratory: Positive as per HPI; negative shortness of breath, pain with cough, wheezing, chest congestion, cough, chest tightness, pain on inspiration, inhalers, increase use of rescue inhalers, snoring, apnea or other Gastro Gastrointestional: Negative bloody stools, change in appetite, difficulty swallowing, reflux, hematemesis, melena stool, loose stool, constipation or other Genitourinary: Negative blood in urine, nocturia, pain with urination or other Musc Musculoskeletal: Negative body pain, back pain, neck pain or other Skin/Breast Skin/Breast: Negative dry skin, itching, rash, unusual bruising, breast lump or other Neuro Neurological: Negative restless legs, confusion, weakness or other Psych Psychocological: Negative abnormal sleep pattern, anxiety, thoughts of hurting self/others, hopelessness or other Lymph Lymphatic: Negative easy bleeding, easy bruising, swollen lymph nodes or other Exam Const Constitutional: Positive conversant, cooperative, in no acute respiratory distress, healthy appearing, well developed, well nourished, good hygiene and obese Head Head: Positive normocephalic and atraumatic; negative cyanosis of lips/distal nose, microcephalic, macrocephalic, frontal sinus tenderness or maxillary sinus tenderness Eyes Eye: Positive clear conjunctiva; negative nystagmus or scleral abnormality Ears Ear: Positive hard of hearing and external ears normal; negative hearing normal Nose Nose: Positive external nose normal, septum normal and no nasal discharge; negative epistaxis or nasal polyp Mouth Mouth: Positive oral mucosae normal, no lesions and crowded posterior oropharynx; negative post nasal drip or oral thrush present Mallampati Score: IV: Mallampati Score Neck Neck: Positive normal visual inspection, thick neck, full ROM and trachea midline; negative lymphadenopathy or JVD Chest Wall Chest: Positive normal inspection of the chest; negative increased A/P diameter, symmetric chest movement, crepitus or tenderness Resp lung sounds: Positive clear to auscultation, good air exchange, rales rales: Positive bilateral and lower and normal expiratory time; negative wheezes, rhonchi or use of accessory muscles Cardio Cardiac: Positive S1 normal and S2 normal; negative murmur Irregularly irregular GI GI: Positive obese, normal to inspection and normal bowel sounds; negative distended or ascites Genitourinary: Positive deferred Musc Musculoskeletal: Positive steady gait and ROM normal; negative using an assistive device for ambulation, kyphosis or scoliosis Skin Pulmonary Skin Exam: Positive intact and ulcers; negative rash, lesion, erythema or dermal atrophy Pulses Pulse: Yes radial pulses present Extremities Extremities: Yes edema Location: lower extremity (lauren feet) location: Bilateral leg swelling: pitting pitting: +3, No cyanosis, No clubbing, Yes capillary refill normal Neuro Neurologic: Yes conversant, Yes no focal neuro deficits, Yes cooperative, Yes normal cognition, Yes normal coordination, Yes normal concentration, Yes understands questions Lymph Lymphatic: No lymphadenopathy Psych Appearance: Positive grossly normal and well kempt Mental Status: Positive mental status grossly normal Mood: Positive congruent mood Affect: Positive normal affect Coding Level of Care Code Off vis,est,level 4 Diagnoses Aortic stenosis Q25.3 Bilateral pulmonary embolism I26.99 Atrial fibrillation I48.91 10/12/17 1056 <Electronically signed by Bran Russell MD> Date Bran Russell MD Cosigner Signature: Date (if applicable) CC: Jeff Bowie MD; Tomy Cardona MD PULMONARY FUNCTION Observed: 09/14/2017 Status: F Source: VALLIANT TEST 1:38 PM [facility] REPOSITORY [facility] Pulmonary Services/Neurology [facility] [place] [address] MR#: [id number] Acct: [id number] Name: CARLIE MARRERO Rep #: [id number] : 1945 72 From: Freddy Juan DO Referring Dr: Bran Russell MD Status: REG CLI Ordering Dr: Date: Location: [facility] Sex: M C INTRODUCTION: The patient is a 72-year-old male currently under the care of Dr. Russell that presents for pulmonary function testing secondary to a diagnosis of COPD. Respiratory therapy reports good patient effort and reports no other concerns. Bronchodilators were used during testing. INTERPRETATION: Forced expiration spirometry demonstrates the presence of a mild large airways obstructive ventilatory defect. There was no significant response to aerosolized bronchodilators, based upon strict ATS criteria. Spirograms of good quality and do not plateau indicating slow emptying of the lungs. Body plethysmography was performed and reveals a decreased TLC to 4.32 L, 72% of predicted, indicative of a mild restrictive ventilatory defect. The remainder of the lung volumes are symmetrically reduced. Diffusing capacity by single breath CO is moderately reduced at 59% of predicted. When compared to previous pulmonary function studies dated February 2017, there have been significant reductions in TLC and RV. IMPRESSION: These pulmonary function studies demonstrate the presence of an irreversible mild mixed ventilatory defect with an associated moderate reduction in diffusing capacity. 09/14/171337 <Electronically signed by Freddy Juan DO> Date Freddy Juan DO CC: Tomy Cardona MD Date Dictated: 09/14/171332 Date Transcribed: 09/14/171332 Information Systems Professor: SARANYA Signed ALLERGIES ALLERGIES DATE TYPE / CODE NAME / CODE REACTION SEVERITY SOURCE 08/23/2018 Drug lisinopril/[id number] cough [place] Allergy/416 0658(RXNORM) Formerly [facility] [id number]([facility] ED CT) Repository 10/15/2014 DRUG LISINOPRIL COUGH [facility] INGREDI/419 [facility] [id number]([facility] ED CT) ENCOUNTERS ENCOUNTERS ADMIT/DISCHARGE ACCOUNT ADMITTING ENCOUNTER LOCATION SOURCE NUMBER CLASS 08/23/2018/08/23/20 [id number] Ambulatory BMSBuilding:[place] [address] [place].[facility] Repository 08/17/2018 [id number] Ambulatory BMSBuilding:[facility] Repository 08/17/2018 [id number] Ambulatory [facility] ing:PSN Repository 08/16/2018 [id number] Ambulatory BMSBuilding:[facility] Repository 08/15/2018 [id number] [facility] ing:PSN Repository 04/22/2018/04/22/20 [id number] Ambulatory BMSBuilding:[place] [address] [place].[facility] Repository 04/20/2018 [id number] Ambulatory BMSBuilding:[place].[facility] Repository 03/08/2018 [id number] Ambulatory [facility] ing:LAB Repository 02/28/2018/02/29/20 [id number] Ambulatory BMSBuilding:[place] [facility] [place].[facility] Repository 01/27/2018/01/29/20 [id number] Ambulatory [address] Repository 01/19/2018 [id number] Ambulatory [facility] Repository 01/13/2018/01/14/20 [id number] Ambulatory BMSBuilding:[place] [address] [place].[facility] Repository 01/06/2018 [id number] Ambulatory [facility] Repository 12/21/2017 [id number] Ambulatory BMSBuilding:[place].[facility] Repository 12/15/2017 [id number] Ambulatory [facility] Hospital ing:CT Repository 12/09/2017 [id number] Ambulatory [facility] Hospital ing:POLAB3 Repository 12/09/2017/12/10/19 [id number] Ambulatory BMSBuilding:[place] [address] [place].[facility] Repository 11/09/2017/11/09/19 [id number] Ambulatory BMSBuilding:[place] [facility] [place].[facility] Repository 10/18/2017 [id number] Ambulatory [facility] Hospital ing:CVS Repository 10/18/2017 [id number] Ambulatory BMSBuilding:[facility] Repository 10/18/2017 [id number] Ambulatory BMSBuilding:[facility] Repository 10/12/2017/10/12/19 [id number] Ambulatory BMSBuilding:[place] [address] [facility] Repository 10/04/2017 [id number] Ambulatory BMSBuilding:[place] Repository 09/14/2017 [id number] Ambulatory [facility] Hospital ing:PSN Repository 09/14/2017 [id number] Ambulatory BMSBuilding:[facility] Repository PAYERS PAYERS ENCOUNTER GUARANTOR PAYER SUBSCRIBER SOURCE 08/23/2018 CARLIE Guerra Primary CARLIEGLEN [place] [id number] Insurance:MEDICARE [place]NDOB: [facility] [id number]: Repository [address]Sfy: 330 [id number] [phone] (HP) Date:2018-02-28 08/23/2018 Secondary CARLIE H [place] Insurance:AARPPolicy ZANEDOB: Community Number: [id number] [id number] Repository Date:[id number], [place] [address]JW: 08/23/2018 Tertiary NOT GIVENUNK [place] Insurance:SELF PAY [facility] Number: Effective Repository Date:2018-08-15 08/17/2018 CARLIE H Primary CARLIE H [place] [id number] Insurance:MEDICARE JOHNSONDOB: [address] [address] [place] Number: Repository [id number]: 330 [id number] [phone] () Date:2018-02-28 08/17/2018 Secondary CARLIE H Jens Insurance:AARPPolicy JOHNSONDOB: Community Number: [id number] [id number] Repository Date:2259-02-00WB [address]FJJKBXX, [place] [address]EK: 08/17/2018 Tertiary NOT GIVENUNK [place] Insurance:SELF PAY [facility] Number: Effective Repository Date:2018-08-17 08/17/2018 CARLIE H Primary CARLIE H Jens [id number] Insurance:MEDICARE JOHNSONDOB: [address] [place] [address] [place] Number: Repository [id number]: 330 [id number] [phone] (HP) Date:2018-02-28 08/17/2018 Secondary CARLIE H Jens Insurance:AARPPolicy JOHNSONDOB: Community Number: [id number] [place] [address] [id number] Repository Date:1093-35-65VZ [address]GDFKBWD, [place] [address]QN: 08/17/2018 Tertiary NOT GIVENUNK Jens Insurance:SELF PAY [facility] Number: Effective Repository Date:2018-02-28 08/16/2018 CARLIE H Primary CARLIE H Jens [id number] Insurance:MEDICARE JOHNSONDOB: [address] Number: Repository [id number]: 330 [id number] [phone] (HP) Date:2018-02-28 08/16/2018 Secondary CARLIE H Jens Insurance:AARPPolicy JOHNSONDOB: Community Number: [id number] [id number] Repository Date:5107-96-04LX [facility] [id number], [place] [address]TL: 08/16/2018 Tertiary NOT GIVENUNK Jens Insurance:SELF PAY [facility] Number: Effective Repository Date:2018-08-16 08/15/2018 CARLIE H Primary CARLIE H Jens [id number] Insurance:MEDICARE JOHNSONDOB: [facility] [id number] [place] Number: Repository [id number]: 330 [id number] [phone] () Date:2018-02-28 08/15/2018 Secondary CARLIE H [place] Insurance:AARPPolicy JOHNSONDOB: Community Number: [id number] [place] [address] [id number] Repository Date:8787-57-03ER [facility] 013811OLANPGJ, [place] [address]QX: 08/15/2018 Tertiary NOT GIVENUNK Jens Insurance:SELF PAY [facility] Number: Effective Repository Date:2018-02-28 04/22/2018 CARLIE H Primary CARLIE H Jens [id number] Insurance:MEDICARE JOHNSONDOB: [address] Number: Repository [id number]: 330 [id number] [phone] (HP) Date:2018-01-13 04/22/2018 Secondary CARLIE H [place] Insurance:AARPPolicy JOHNSONDOB: Community Number: [id number] [id number] Repository Date:4609-17-86YO [address]POWDQDU, [place] [address]PG: 04/22/2018 Tertiary NOT GIVENUNK Jens Insurance:SELF PAY [facility] Number: Effective Repository Date:2018-04-22 04/20/2018 CARLIE H Primary CARLIE Guerra Jens [id number] Insurance:MEDICARE JOHNSONDOB: Critical access hospital PART A [facility] [id number] Number[place] Repository [address]Zev: [phone] [id number] [phone] () Date:2018-04-20 04/20/2018 Secondary CARLIE H Jens Insurance:AARPPolicy ZANEDOB: [facility] Number: [id number] [id number] Repository Date:0763-61-96IQ [address]ATCDCRA, [place] [address]SN: 04/20/2018 Tertiary NOT GIVENUNK [place] Insurance:SELF PAY [facility] Number: Effective Repository Date:2018-04-20 03/08/2018 CARLIE H Primary CARLIE Guerra [place] [id number] Insurance:MEDICARE JOHNSONDOB: [facility] [id number] Number: Repository [id number]: [phone] [id number] [phone] () Date:2018-03-08 03/08/2018 Secondary CARLIE H Jens Insurance:AARPPolicy JOHNSONDOB: Community Number: [id number] [id number] Repository Date:5987-83-02LB [address]NNPCJWH, [place] [address]YY: 03/08/2018 Tertiary NOT GIVENUNK [place] Insurance:SELF PAY [facility] Number: Effective Repository Date:2018-03-08 02/28/2018 CARLIE H Primary CARLIE Guerra [place] [id number] Insurance:MEDICARE JOHNSONDOB: [place] [id number] Number: Repository [id number]: 330 [id number] [phone] (HP) Date:2017-11-09 02/28/2018 Secondary CARLIE Guerra Jens Insurance:AARPPolicy ZANEDOB: Community Number: [address] [place] [address] [id number] Repository Date:2795-40-04FZ [address]LBGLWOC, [place] [address]RG: 02/28/2018 Tertiary NOT GIVENUNK Jens Insurance:SELF PAY [facility] Number: Effective Repository Date:2018-02-24 01/13/2018 CARLIE H Primary CARLIE H Jens [id number] Insurance:MEDICARE JOHNSONDOB: [address] Number: Repository [id number]: 330 [id number] [phone] (HP) Date:2017-12-09 01/13/2018 Secondary CARLIE H Jens Insurance:AARPPolicy ZANEDOB: Community Number: [address] [place] [address] [id number] Repository Date:3105-94-68JV [address]NYMIZFC, [place] [address]IS: 01/13/2018 Tertiary NOT GIVENUNK [place] Insurance:SELF PAY [facility] Number: Effective Repository Date:2018-01-13 01/06/2018 CARLIE H Primary CARLIE H Jens [id number] Insurance:MEDICARE JOHNSONDOB: [address] Number: Repository [id number]: 330 [id number] [phone] (HP) Date:2018-01-06 01/06/2018 Secondary CARLIE H Jens Insurance:AARPPolicy JOHNSONDOB: Community Number: [id number] [id number] Repository Date:5806-70-45DT [facility] 028692THUNORW, [place] [address]LG: 01/06/2018 Tertiary NOT GIVENUNK Jens Insurance:SELF PAY [facility] Number: Effective Repository Date:2018-01-06 12/21/2017 CARLIE Primary CARLIE Jens [id number] Insurance:MEDICARE JOHNSONDOB: Critical access hospital PART A [address] Number: Repository [id number]: 330 [id number] [phone] (HP) Date:2017-08-23 12/21/2017 Secondary CARLIE [place] Insurance:AARPPolicy JOHNSONDOB: Community Number: [id number] [facility] [id number] Repository Date:5799-86-65XU [facility] 645689PLDPPAV, [place] [address]RV: 12/21/2017 Tertiary NOT GIVENUNK [place] Insurance:SELF PAY [facility] Number: Effective Repository Date:2017-08-23 12/15/2017 CARLIE H Primary CARLIE H Jens [id number] Insurance:MEDICARE JOHNSONDOB: [address] [place] Number: Repository [address]Lhv: 330 [id number] [phone] (HP) Date:2017-12-13 12/15/2017 Secondary CARLIE H Jens Insurance:AARPPolicy ZANEDOB: [facility] Number: [id number] Hospital [id number] Repository Date:7426-84-83ID [facility] [id number], [place] [address]SI: 12/15/2017 Tertiary NOT GIVENUNK Jens Insurance:SELF PAY [facility] Number: Effective Repository Date:2017-12-13 12/09/2017 CARLIE Primary CARLIE [place] [id number] Insurance:MEDICARE JOHNSONDOB: [address] Number: Repository [address]Izo: 330 [id number] [phone] (HP) Date:2017-12-09 12/09/2017 Secondary CARLIE [place] Insurance:AARPPolicy ZANEDOB: [facility] Number: [id number] [place] [address] [id number] Repository Date:4619-08-51PF [address]LQSAHLM, [place] [address]IL: 12/09/2017 Tertiary NOT GIVENUNK Jens Insurance:SELF PAY [facility] Number: Effective Repository Date:2017-12-09 12/09/2017 CARLIE Primary CARLIE [place] [id number] Insurance:MEDICARE JOHNSONDOB: Critical access hospital PART A [facility] [id number] Number: Repository [id number]: 330 [id number] [phone] (HP) Date:2017-11-10 12/09/2017 Secondary CARLIE [place] Insurance:AARPPolicy ZANEDOB: [facility] Number: [id number] [facility] [id number] Repository Date:0732-82-76WE [address]EDQKNZT, [place] [address]OE: 12/09/2017 Tertiary NOT GIVENUNK [place] Insurance:SELF PAY [facility] Number: Effective Repository Date:2017-12-09 11/09/2017 CARLIE Primary CARLIE [place] [id number] Insurance:MEDICARE JOHNSONDOB: Critical access hospital PART A [facility] [id number] Number: Repository [address]Hfw: 330 [id number] [phone] (HP) Date:2017-10-25 11/09/2017 Secondary CARLIE [place] Insurance:AARPPolicy JOHNSONDOB: Community Number: [id number] [place] [address] [id number] Repository Date:6532-78-18DU [address]ARYGLJJ, [place] [address]NX: 11/09/2017 Tertiary NOT GIVENUNK [place] Insurance:SELF PAY [facility] Number: Effective Repository Date:2017-10-25 10/18/2017 CARLIE Primary CARLIE [place] [id number] Insurance:MEDICARE JOHNSONDOB: Critical access hospital PART A [id number] Number: Repository [address]Weh: 330 [id number] [phone] (HP) Date:2017-10-12 10/18/2017 Secondary CARLIE [place] Insurance:AARPPolicy JOHNSONDOB: Community Number: [id number] [place] [address] [id number] Repository Date:5751-94-95LE [facility] 188178TMJQVJG, [place] [address]CL: 10/18/2017 Tertiary NOT GIVENUNK [place] Insurance:SELF PAY [facility] Number: Effective Repository Date:2017-10-12 10/18/2017 CARLIE Primary CARLIE [place] [id number] Insurance:MEDICARE JOHNSONDOB: Critical access hospital PART A [address] Number: Repository [id number]: 330 [id number] [phone] () Date:2017-10-12 10/18/2017 Secondary CARLIE [place] Insurance:AARPPolicy JOHNSONDOB: Community Number: [id number] [place] [address] [id number] Repository Date:6173-38-79GQ [facility] 486243OIZFWPO, [place] [address]XL: 10/18/2017 Tertiary NOT GIVENUNK [place] Insurance:SELF PAY [facility] Number: Effective Repository Date:2017-10-18 10/18/2017 CARLIE Primary CARLIE [place] [id number] Insurance:MEDICARE JOHNSONDOB: Critical access hospital PART A [address] Number: Repository [id number]: 330 [id number] [phone] (HP) Date:2017-10-12 10/18/2017 Secondary CARLIE Jens Insurance:AARPPolicy JOHNSONDOB: Community Number: [id number] [place] [address] [id number] Repository Date:7971-86-90UE [facility] 600489DDXADMV, [place] [address]YJ: 10/18/2017 Tertiary NOT GIVENUNK [place] Insurance:SELF PAY [facility] Number: Effective Repository Date:2017-10-18 10/12/2017 CARLIE Primary CARLIE Jens [id number] Insurance:MEDICARE JOHNSONDOB: [facility] [id number] [place] Number[facility] Repository [address]Xpg: 330 [id number] [phone] (HP) Date:2017-08-23 10/12/2017 Secondary CARLIE Jens Insurance:AARPPolicy ZANEDOB: Community Number: [id number] Hospital [id number] Repository Date:1741-09-91ON [facility] 510252OMODEZW, [place] [address]VX: 10/12/2017 Tertiary NOT GIVENUNK Jens Insurance:SELF PAY [facility] Number: Effective Repository Date:2017-08-23 10/04/2017 CARLIE Primary MARIN MRARERODOB: [place] [id number] Insurance:MEDICARE [id number] [place] Number[facility] Repository [id number]: 330 [id number] [phone] (HP) Date:2017-10-04 10/04/2017 Secondary CARLIE [place] Insurance:AARPPolicy ANTONIOB: Community Number: [id number] Hospital [id number] Repository Date:7049-36-74UI [address]WFKPADF, [place] [address]KC: 10/04/2017 Tertiary NOT GIVENUNK [place] Insurance:SELF PAY [facility] Number: Effective Repository Date:2017-10-04 09/14/2017 CARLIE Primary MARIN MARRERODOB: [place] [id number] Insurance:MEDICARE [id number] [place] Number: Repository [id number]: 330 [id number] [phone] (HP) Date:2009-08-13 09/14/2017 Secondary CARLIE [place] Insurance:AARPPolicy ZANEDOB: [facility] Number: [id number] Hospital [id number] Repository Date:2840-05-17KC [facility] [id number], [place] [address]BZ: 09/14/2017 Tertiary NOT GIVENUNK [place] Insurance:SELF PAY [facility] Effective Repository Date:2017-03-18 09/14/2017 CARLIE Primary CARLIE [id number] Insurance:MEDICARE ANTONIOB: Critical access hospital PART A [facility] [id number], [place] Number: Repository [id number]: [phone]) [id number] [phone] () Date:2009-08-13 09/14/2017 Secondary CARLIEGLEN [place] [facility] Number: [id number] Hospital [id number] Repository Date:5240-09-85XU [address]FDPGUER, [place] [address]IX: 09/14/2017 Tertiary NOT EDU [place] Insurance:SELF PAY [facility] Number: Effective Repository Date:2017-09-14
== END ==
PROVIDERS: Family Provider Internal Medicine; PCP Internal Medicine; Referring Provider Internal Medicine Critical Care Medicine; Visit Provider Internal Medicine Critical Care Medicine
DX: J44.9 Chronic obstructive pulmonary disease, unspecified (principal); I27.29 Other secondary pulmonary hypertension
CPT/HCPCS: 94060; 94726; 94729

== ENCOUNTER → 2018-08-17 10:45 | Outpatient (CLI) | payer MEDICARE, OTHER, SELFPAY ==
[2018-04-22 11:15] VITALS: BMI 36.0
[2018-08-17 11:05] VITALS: PULSE 101; PULSE 112; PULSE 113; PULSE 123; PULSE 86; PULSE 87; O2SAT 92; O2SAT 93; O2SAT 94; O2SAT 98
--- NOTE | 2018-08-17 12:58 | PCM.PSN.6M ---
PSN 6 Minute Walk Test - 6 Minute Walk Test 6 Minute Walk Test: 6 Minute Walk Test PSN:6-Minute Walk Test Start: 08/17/18 11:14 Freq: Status: Active Protocol: RESP.6MINW Document 08/17/18 11:05 [facility] (Rec: 08/17/18 11:23 [facility] [id number]) 6 Minute Walk Test Date Performed 08/17/18 Time Performed 11:05 Height 5 ft 8 in Weight: 230 lb Weight in Pounds 230.[address]: Bran Russell Assistive device used: None Pre-test Oxygen Delivery Method Room Air Pulse Ox (%) 94 Pulse Rate (60-100 beats/min) 86 Dyspnea Terrell Scale (0-10) 0 Exertion Terrell Scale (6-20) 6 1st minute Oxygen Delivery Method Room Air Pulse Ox (%) 94 Pulse Rate (60-100 beats/min) 86 Number of Rests Taken 0 2nd minute Oxygen Delivery Method Room Air Pulse Ox (%) 92 Pulse Rate (60-100 beats/min) 101 H Number of Rests Taken 0 3rd minute Oxygen Delivery Method Room Air Pulse Ox (%) 92 Pulse Rate (60-100 beats/min) 123 H Number of Rests Taken 0 4th minute Oxygen Delivery Method Room Air Pulse Ox (%) 93 Pulse Rate (60-100 beats/min) 112 H Number of Rests Taken 0 5th minute Oxygen Delivery Method Room Air Pulse Ox (%) 92 Pulse Rate (60-100 beats/min) 113 H Number of Rests Taken 0 6th minute Oxygen Delivery Method Room Air Pulse Ox (%) 93 Pulse Rate (60-100 beats/min) 113 H Number of Rests Taken 0 Post-test Oxygen Delivery Method Room Air Pulse Ox (%) 98 Pulse Rate (60-100 beats/min) 87 Dyspnea Terrell Scale (0-10) 2 Exertion Terrell Scale (6-20) 12 Full Laps Walked 18 Partial Lap, Number of Tiles Walked 25 Total Distance Walked (ft) 1087 - Interpretation Interpretation: The patient ambulated 1087 feet over the course of 6 minutes beginning on room air without assistive devices or breaks. Pretesting oxygen saturation was noted to be 94% on room air. With ambulation, the nany oxygen saturation was 92%. There was no significant exertional oxygen desaturation. - Recommendations Recommendations: There is no indication for the use of supplemental oxygen at this time.
== END ==
PROVIDERS: Family Provider Internal Medicine; PCP Internal Medicine; Referring Provider Internal Medicine Critical Care Medicine; Visit Provider Internal Medicine Critical Care Medicine
DX: I27.29 Other secondary pulmonary hypertension (principal); J44.9 Chronic obstructive pulmonary disease, unspecified
CPT/HCPCS: 94618

== ENCOUNTER → 2018-11-28 08:39 | Outpatient (CLI) | payer MEDICARE, OTHER, SELFPAY ==
[2018-11-18 11:34] VITALS: BMI 35.9
[2018-11-28 10:05] LABS: AST(SGOT) 13 U/L (15-37); Alanine Aminotransfer ALT/SGPT 20 U/L (16-61); Albumin, Serum 3.5 g/dL (3.2-5.0); Alkaline Phosphatase 95 U/L (45-117); Bilirubin, Direct 0.27 mg/dL (0.00-0.30); Cholesterol 115 mg/dL (200); Globulin 4.4 g/dL (2.2-4.2); High Density Lipoprotein 47 mg/dL; Protein, Total 7.9 g/dL (6.4-8.2); Triglycerides 89 mg/dL; Very Low Density Lipoprotein 18 mg/dL (5-40)
== END ==
PROVIDERS: Family Provider Internal Medicine; PCP Internal Medicine; Referring Provider Internal Medicine Cardiovascular Disease; Visit Provider Internal Medicine Cardiovascular Disease
DX: I25.10 Atherosclerotic heart disease of native coronary artery without angina pectoris (principal); E78.5 Hyperlipidemia, unspecified
CPT/HCPCS: 36415; 80061; 80076

== ENCOUNTER 2019-01-09 07:58 | Inpatient (IN) | payer MEDICARE, OTHER, SELFPAY ==
[2018-11-18 11:34] VITALS: BMI 35.9
[2019-01-09] VITALS (20 sets, daily range): BP systolic 104–140; BP diastolic 66–93; PULSE 84–112; RESP 13–22; TEMP 36.4–37; O2SAT 91–98; BMI 35.4; BMI 33.8
--- NOTE | 2019-01-09 07:59 | NURSING ---
0756 STROKE ALERT CALLED.
--- NOTE | 2019-01-09 08:02 | EKG12_ITS ---
Test Reason : STROKE TEAM Blood Pressure : / mmHG Vent. Rate : 089 BPM Atrial Rate : 097 BPM P-R Int : 000 ms QRS Dur : 080 ms QT Int : 356 ms P-R-T Axes : 000 054 051 degrees QTc Int : 433 ms Atrial fibrillation Nonspecific ST abnormality Abnormal ECG Confirmed by INDIRA HATCH, PHONG ([id number]), photograph editor DELGADO SIMEON ([id number]) on 01/10/2019 11:22:17 AM Referred By: RENEE Confirmed By:PHONG JACOBSON MD
--- NOTE | 2019-01-09 08:02 | RAD_ITS ---
STUDY: X-RAY CHEST REASON FOR EXAM: Male, 73 years old. Hypertension. TECHNIQUE: Single AP portable view of the chest. COMPARISON: Comparison is made with prior study dated September 24, 2015. FINDINGS: EKG electrodes are seen. Hyperinflation. Stable increased linear markings at the lung bases suggestive of scarring. There is no demonstrated pleural abnormality. Normal size heart. Normal mediastinum and kristy. Normal visualized pulmonary arteries. There is atherosclerotic calcification of the aortic arch with tortuosity. There are diffuse degenerative changes of the visualized thoracic spine. Mild levoscoliosis. Normal visualized ribs, clavicles, and shoulders. There is no demonstrated abnormality of the visualized soft tissue structures of the upper abdomen. RAD/Chest 1 View IMPRESSION: Stable mild increased markings at the lung bases suggestive of bibasilar scarring. Hyperinflation. Electronically Signed: Brendan Garcia, at 9:06 EDT , Service support ,
--- NOTE | 2019-01-09 08:02 | CT_ITS ---
STUDY: CT BRAIN WITHOUT CONTRAST REASON FOR EXAM: Male, 73 years old. Possible CVA. RADIATION DOSAGE (If Supplied By Facility): CTDIvol = ( 60.81 ) mGy, DLP = ( 1427.19 ) mGycm TECHNIQUE: Transaxial CT imaging of the brain was performed without administration of intravenous contrast material. Individualized dose optimization techniques were used for this CT. COMPARISON: No relevant priors. FINDINGS: Normal soft tissue structures. Normal calvarium. There is mild cerebral atrophy with widening of the extra-axial spaces and ventricular dilatation. There is evidence of encephalomalacia in the right temporal frontoparietal lobes in keeping with old ischemic infarction. Old bilateral lacunar infarcts in the basal ganglia. Normal brainstem. Normal cerebellum. There is no intracranial hemorrhage. There are no findings of an acute ischemic infarction. Atherosclerotic calcification of the vertebral arteries and cavernous portions of the internal carotid arteries bilaterally. Opacification of the right maxillary sinus as well as the ethmoid sinuses and mucosal thickening of the left maxillary sinus. CT/Brain/Head without Contrast IMPRESSION: No acute abnormality is seen. N.B. : The above information has been verbally conveyed by Brendan Garcia to Joe Zaragoza on 01/09/2019 08:26:06 (ET). Electronically Signed: Brendan Garcia, at 8:27 EDT , Service support ,
[2019-01-09 08:06] LABS: Bedside Glucose 164 mg/dL (70-110)
--- NOTE | 2019-01-09 08:08 | NURSING ---
DR ROIS FOR DR DURAN
[2019-01-09 08:18] LABS: Absolute Lymphocyte Count 2.09 X10^3/ul (0.83-4.51); Absolute Neutrophil Count 6.7 X10^3/uL (2.0-7.7); Basophil# 0.03 X10^3/uL; Basophil% 0.3 % (0-1); Eosinophil# 0.47 X10^3/uL; Eosinophils% 4.7 % (0-5); Hematocrit 42.5 % (40-54); Hemoglobin 13.8 g/dl (13.0-16.5); Lymphocyte # 2.09 X10^3/ul (4.0); Lymphocyte % 20.8 % (19-41); Mean Corp Hgb Conc 32.5 g/gl (32-36); Mean Corpuscular Hgb 30.5 pg (27.0-32.0); Mean Platelet Vol. 9.7 fl (6.2-12.0); Monocyte# 0.75 X10^3/uL; Monocyte% 7.5 % (0-10); Neutrophil # 6.65 X10^3/uL (2.7-7.7); Neutrophil % 66.3 % (47-70); POSITIVE COUNT NO; POSITIVE DIFFERENTIAL NO; POSITIVE MORPHOLOGY NO; Platelet Count 252 K/mm3 (150-450); RBC Distribution Width CV 14.5 % (11.6-14.6); RBC Distribution Width SD 49.4 fl (35.1-43.9); Red Blood Count 4.52 M/mm3 (4.6-6.2)
[2019-01-09 08:29] LABS: International Normalized Ratio 1.3; Prothrombin Time (Protime)PT. 16.3 SECONDS (11.7-14.9)
[2019-01-09 08:30] LABS: Partial Thromboplast Time 33.3 Seconds (24.1-36.2)
[2019-01-09 08:38] LABS: Anion Gap 8 (5-15); BUN 24 mg/dL (7-18); Chloride 109 mmol/L (98-107); EST Glomerular Filtration Rate 63 mL/min (>60); Est Glom Filt Rate - Afr Amer 76 mL/min (>60); Estimated Creatinine Clearance 52.25 ml/min; Glucose 156 mg/dL (74-106); Sodium Level 141 mmol/L (136-145)
--- NOTE | 2019-01-09 08:42 | CT_ITS ---
STUDY: CTA OF THE BRAIN REASON FOR EXAM: Male, 73 years old. Possible stroke. RADIATION DOSAGE (If Supplied By Facility): CTDIvol = ( 26.81 ) mGy, DLP = ( 816.92 ) mGycm TECHNIQUE: CT angiography was performed with a multi-detector CT scanner. Data acquisition was obtained from the skull base through the vertex following intravenous administration of 100 IV Isovue 370. MIP images were reconstructed from the axial data set. Post-processing of the angiographic images was performed, with multiplanar reformation and 3D reconstruction. Individualized dose optimization techniques were used for this CT. COMPARISON: None. FINDINGS: Normal bilateral petrous carotid arteries. There is calcified plaque formation of the right cavernous carotid artery, without a cross-sectional luminal stenosis. There is calcified plaque formation of the left cavernous carotid artery, without a cross-sectional luminal stenosis. Normal right A1 segments of the anterior cerebral artery. Normal left A1 segments of the anterior cerebral artery. Normal intact anterior communicating artery (ACOM). Normal bilateral A2 segments of the anterior cerebral arteries. Normal right M1 and M2 segments of the middle cerebral arteries, with a normal M1 bifurcation. Normal left M1 and M2 segments of the middle cerebral arteries, with a normal M1 bifurcation. Normal right posterior communicating artery (PCOM). Normal left posterior communicating artery (PCOM). Normal bilateral vertebral arteries. Normal basilar artery with a normal basilar bifurcation. The visualized bilateral superior cerebellar (SCA) arteries are normal. Normal bilateral P1, P2 and visualized P3 segments of the posterior cerebral arteries. There is no demonstrated aneurysm of the [place] of [place]. Encephalomalacia in the right temporal frontal parietal lobes. Opacification of the right maxillary sinus as well as ethmoid sinuses and mucosal thickening of the left maxillary sinus. CT/CTA Head W/WO Contrast IMPRESSION: Normal [place] of [place] without a demonstrated aneurysm or hemodynamically significant stenosis. Electronically Signed: Brendan Garcia, at 9:45 EDT , Service support ,
--- NOTE | 2019-01-09 08:42 | CT_ITS ---
STUDY: CTA NECK WITH CONTRAST REASON FOR EXAM: Male, 73 years old. CVA, HX-PREV CVA, A-FIB, HTN, EMPHYSEMA. RADIATION DOSAGE (If Supplied By Facility): CTDIvol = ( 26.81 ) mGy, DLP = ( 816.92 ) mGycm TECHNIQUE: CT angiography with multi-detector data acquisition was performed from the aortic arch to the skull base following intravenous administration of 100 IV Isovue 370. MIP images were reconstructed from the axial data set. Post-processing of the angiographic images was performed, with multiplanar reformation and 3D reconstruction. Individualized dose optimization techniques were used for this CT. COMPARISON: None. FINDINGS: AORTIC ARCH: There is mild atherosclerotic plaque of the aortic arch RIGHT CAROTID ARTERIES: Normal right common carotid artery (CCA). Normal right common carotid bulb. There is mild atherosclerotic plaque formation of the origin of the right internal carotid artery with less than 50% cross sectional diameter stenosis. There is atherosclerotic tortuous elongation of the cervical portion of the right internal carotid artery. Normal origin of the right external carotid artery (ECA). LEFT CAROTID ARTERIES: Normal left common carotid artery (CCA). There is mild atherosclerotic plaque formation with minimal narrowing of the left carotid bulb. There is mild atherosclerotic plaque formation of the origin of the left internal carotid artery with less than 50% cross sectional diameter stenosis. There is atherosclerotic tortuous elongation of the cervical portion of the left internal carotid artery. There is mild atherosclerotic plaque formation of the origin of the left external carotid artery with less than 50% cross sectional diameter stenosis. VERTEBRAL ARTERIES: There is atherosclerosis at the origin of the right vertebral artery. There is atherosclerosis of the distal intradural right vertebral artery with mild stenosis. There is atherosclerosis with moderate stenosis of the distal intradural left vertebral artery. CT/CTA Neck W/WO Contrast IMPRESSION: Atherosclerotic plaque with moderate distal left vertebral artery stenosis. Electronically Signed: Kraig Gates MD at 9:59 EDT Tel , Service support ,
--- NOTE | 2019-01-09 10:09 | ED.VISSUMM ---
- ER Visit Summary Date of Service: 01/09/19 Chief Complaint: [Left facial droop and difficulty with speech] History of Present Illness: The patient is a 73 M [presents to the emergency department with symptoms that started around 7 AM. Patient states that he had woke up about 630 and felt essentially normal. Patient had sat down in a chair and felt like he could not really bring his left hand up to his face. He did not feel well and advised his did not feel well. Patient was noted to have a left facial droop and slurred speech. Patient brought to ER by EMS. Patient denies headache. Denies chest pain. Patient does have a history of A. fib and is on Xarelto which he took this morning. He denies prior history of stroke.] Physical Examination: [HEENT-PERRLA, EOMI. Cranial nerves II through XII grossly intact. TMs clear. Mucous membranes moist. No adenopathy. Patient has left-sided facial droop. Cardiovascular-regular rate and rhythm without murmur or ectopy Lungs-clear to auscultation, chest wall stable without crepitus or subcu emphysema Abdomen-normoactive bowel sounds, soft, nontender, no rebound or rigidity, no peritoneal signs. Neuro zczs-bklcol-ymme and heel jean-baptiste testing within normal limits, negative Romberg, negative . NIH stroke scale was a 3 given for left facial droop and mild dysarthria. Extremities-intact ?4, normal range of motion, normal pulses, atraumatic] Test Results: [CT scan of the brain without contrast showed old right-sided strokes without evidence of hemorrhage or new stroke. Initial glucose on arrival was 156. CBC with differential is normal. Chemistries unremarkable. INR was 1.3. Troponin is less than 1015. Chest x-ray showed some bibasilar scarring. CTA of the brain and neck obtained after discussing case with neurologist. CTA of the brain was unremarkable. CTA of the neck showed some atherosclerosis with 50% occlusions in the right carotid left carotid.] Emergency Department Course and Treatment: [Patient is not a thrombolytic candidate due to low NIH and also the fact the patient anticoagulated with Xarelto. On repeat examination at 10:10 AM patient's NIH is currently is 0 and his symptoms have mostly resolved.] Treatment Plan: [Admit] Disposition: [Admit] Impression: [TIA] This note was generated with [employer] dictation software. It may contain incorrect words, spelling, and punctuation that were not noted in review of the chart prior to signing ED Disposition - Plan for ED Patient: Referrals: Tomy Hernandez MD [Primary Care Provider] -
--- NOTE | 2019-01-09 10:12 | ED.DCSUM_ITS ---
- ER Visit Summary Date of Service: 01/09/19 Chief Complaint: [Left facial droop and difficulty with speech] History of Present Illness: The patient is a 73 M [presents to the emergency department with symptoms that started around 7 AM. Patient states that he had woke up about 630 and felt essentially normal. Patient had sat down in a chair and felt like he could not really bring his left hand up to his face. He did not feel well and advised his did not feel well. Patient was noted to have a left facial droop and slurred speech. Patient brought to ER by EMS. Patient denies headache. Denies chest pain. Patient does have a history of A. fib and is on Xarelto which he took this morning. He denies prior history of stroke.] Physical Examination: [HEENT-PERRLA, EOMI. Cranial nerves II through XII grossly intact. TMs clear. Mucous membranes moist. No adenopathy. Patient has left-sided facial droop. Cardiovascular-regular rate and rhythm without murmur or ectopy Lungs-clear to auscultation, chest wall stable without crepitus or subcu emphysema Abdomen-normoactive bowel sounds, soft, nontender, no rebound or rigidity, no peritoneal signs. Neuro gczf-bddrdc-seai and heel jean-baptiste testing within normal limits, negative Romberg, negative . NIH stroke scale was a 3 given for left facial droop and mild dysarthria. Extremities-intact ?4, normal range of motion, normal pulses, atraumatic] Test Results: [CT scan of the brain without contrast showed old right-sided strokes without evidence of hemorrhage or new stroke. Initial glucose on arrival was 156. CBC with differential is normal. Chemistries unremarkable. INR was 1.3. Troponin is less than 1015. Chest x-ray showed some bibasilar scarring. CTA of the brain and neck obtained after discussing case with neurologist. CTA of the brain was unremarkable. CTA of the neck showed some atherosclerosis with 50% occlusions in the right carotid left carotid.] Emergency Department Course and Treatment: [Patient is not a thrombolytic candidate due to low NIH and also the fact the patient anticoagulated with Xarelto. On repeat examination at 10:10 AM patient's NIH is currently is 0 and his symptoms have mostly resolved.] Treatment Plan: [Admit] Disposition: [Admit] Impression: [TIA] This note was generated with [employer] dictation software. It may contain incorrect words, spelling, and punctuation that were not noted in review of the chart prior to signing ED Disposition - Plan for ED Patient: Referrals: Tomy Hernandez MD [Primary Care Provider] -
--- NOTE | 2019-01-09 10:15 | NURSING ---
DR [place] FOR DR DURAN
--- NOTE | 2019-01-09 10:21 | HP.PCM_ITS ---
Problem List (1) Left-sided weakness Status: Acute (2) Atherosclerotic heart disease of [place] coronary artery without angina pectoris Status: Chronic Comment: PTCA and LIU from proximal to mid LAD (Promus Element 3.0 X 16) per Dr. Sunshine [facility] (3) Stented coronary artery Status: Chronic Comment: PTCA and LIU from proximal to mid LAD (Promus Element 3.0 X 16) per Dr. Sunshine [facility] (4) Hyperlipidemia Status: Chronic (5) NOAM (obstructive sleep apnea) Status: Chronic (6) Solitary pulmonary nodule Status: Chronic (7) Persistent atrial fibrillation Status: Chronic History of Present Illness Date of Admission: 01/09/19 Chief Complaint: Left sided weakness- on the dayu of admission The patient is a 73 year old M with past medical history of persistent atrial fibrillation, on Eliquis, hypertension, NOAM, not on CPAP, who comes in with complaints of left-sided weakness that started on the morning of admission. Patient was in his usual state of health, denied any new complaints a day prior to admission. He woke up in the morning with no symptoms. He had an early breakfast. He attempted later on to use his left hand and could not coordinate with his left hand. His left leg also felt weak. He has attempted to stand up, and fell down without hitting his head. He walked to his 's room, and informed her that he was not feeling well. His noted a facial droop and he also said to have slouched down but did not hit his head. EMS was called. Blood sugar on arrival in the ED was 164. His vitals in the ED showed pressure 140/79, temperature 98.2 F, heart rate 98, SPO2 98% on room air, respiratory rate is 18. His admitting WBC count is 10.0, hemoglobin 13.8, platelet count is 252, INR is 1.3, BMP shows sodium 141, potassium 4.2, chloride 109, bicarbonate 24, BUN 24, creatinine 1.2, troponins x2 is negative. CT scan of the head shows no acute abnormality. CT of the head was normal, CT of the neck showed mild atherosclerotic plaque with moderate distal left vertebral artery stenosis. Past Medical History Past Medical History (Chronic Problems): Chronic Problems (Last Reviewed 11/18/18 @ 11:34 by Ilana Hale) Atherosclerotic heart disease of [place] coronary artery without angina pectoris (Chronic) PTCA and LIU from proximal to mid LAD (Promus Element 3.0 X 16) per Dr. Sunshine [facility] Stented coronary artery (Chronic 11/07/11) PTCA and LIU from proximal to mid LAD (Promus Element 3.0 X 16) per Dr. Sunshine [facility] History of electrophysiologic study (Chronic 01/27/12) Per Dr. 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) (FEV1 80-100%) Emphysema of lung (Chronic) NOAM (obstructive sleep apnea) (Chronic) Solitary pulmonary nodule (Chronic) Persistent atrial fibrillation (Chronic) Nonrheumatic aortic (valve) stenosis (Chronic) Nonrheumatic tricuspid (valve) insufficiency (Chronic) Other secondary pulmonary hypertension (Chronic) Abnormal electrocardiogram (Chronic) long-term use of drug (Chronic) Antihyperlipidemic PAH (pulmonary artery hypertension) (Chronic) Fever (Chronic) Atrial fibrillation (Chronic) Bilateral pulmonary embolism (Chronic) Hypertension (Chronic) Medical History: Medical History (Last Reviewed 11/18/18 @ 11:34 by Ilana Hale) Atherosclerotic heart disease of [place] coronary artery without angina pectoris (Chronic) I25.10 PTCA and LIU from proximal to mid LAD (Promus Element 3.0 X 16) per Dr. 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) J44.9 (FEV1 80-100%) Emphysema of lung (Chronic) J43.9 NOAM (obstructive sleep apnea) (Chronic) G47.33 Solitary pulmonary nodule (Chronic) R91.1 Persistent atrial fibrillation (Chronic) I48.1 Nonrheumatic aortic (valve) stenosis (Chronic) I35.0 Nonrheumatic tricuspid (valve) insufficiency (Chronic) I36.1 Other secondary pulmonary hypertension (Chronic) I27.29 Fever (Chronic) R50.9 Atrial fibrillation (Chronic) I48.91 Bilateral pulmonary embolism (Chronic) I26.99 Hypertension (Chronic) I10 BPH (benign prostatic hyperplasia) N40.0 Allergies lisinopril Adverse Reaction (Intermediate, Verified 01/09/19 08:23) cough Home Medications: Ambulatory Orders Medication Instructions Recorded Finasteride [Proscar] 5 mg PO DAILY 09/24/15 tamsulosin 0.4 mg capsule 0.8 mg PO DAILY cap 02/28/18 Apixaban [Eliquis] 5 mg PO BID 01/09/19 Atorvastatin Calcium [Lipitor] 10 mg PO QHS 01/09/19 Diltiazem CD [Cardizem CD] 180 mg PO DAILY 01/09/19 Docusate Sodium [Colace] 100 mg PO BID 01/09/19 Furosemide 40 mg PO DAILY 01/09/19 Guaifenesin [Mucus Relief] 400 mg PO BID 01/09/19 Ibuprofen 200 mg PO PRN PRN 01/09/19 Metoprolol Tartrate [Lopressor 50 mg PO BID 01/09/19 (beta brittany)] Surgical History: Surgical History (Last Reviewed 11/18/18 @ 11:34 by Ilana Hale) Stented coronary artery (Chronic) Onset Date: 11/07/11 Z95.5 PTCA and LIU from proximal to mid LAD (Promus Element 3.0 X 16) per Dr. Sunshine, [facility] History of electrophysiologic study (Chronic) Onset Date: 01/27/[address] River Mobley, [facility] H/O oral surgery Z98.890 2011 History of left cataract surgery Z98.42 2016 Surgical History: cataract - Status post left cataract surgery, - - Status post oral surgery, status post stent Psychiatric History: No pertinent psych hx Lives: Spouse/ Significant Other Smoking Status: Former smoker - *Family History Maternal Family History: Family History (Last Reviewed 11/18/18 @ 11:34 by Ilana Hale) Mother CVA (cerebral vascular accident) Diabetes Other Family history of CVA History Items: Stroke Paternal Family History: Family History (Last Reviewed 11/18/18 @ 11:34 by Ilana Hale) Mother CVA (cerebral vascular accident) Diabetes Other Family history of CVA History Items: Diabetes Review of Systems Constitutional: Reports: Weakness. Denies: Anorexia, Chills, Fever, Night Sweats, Malaise, Weight Change, Fatigue Eyes: Denies: Cataracts, Conjunctivae Inflammation, Double vision, Pain, Redness, Vision Change HEENT: Denies: Difficulty Swallowing, Head Aches, Hearing Changes, Nasal bleeding, Sinus Congestion, Sinus Drainage Cardiovascular: Denies: Chest Pain, Claudication, Chest Tightness, Orthopnea, Palpitations, Paroxysmal Noc. Dyspnea Respiratory: Denies: Cough, Shortness of breath at rest, Sputum production Gastrointestinal: Denies: Abdominal Pain, Constipation, Hematemesis, Hematochezia, Nausea, Vomiting Genitourinary: Denies: Dysuria, Frequency, Incontinence Musculoskeletal: Denies: Joint Pain, Joint stiffness, Joint swelling, Joint Tenderness Skin: Denies: Pruritis, Rash, Wounds Neurological: Denies: Difficulty swallowing, Focal weakness, Numbness, Tingling Psychiatric: Denies: Anxiety, Depression, Homicidal Ideations, Suicidal Ideations Hematologic/ Lymphatic: Denies: Easy Bruising, Easy Bleeding VTE Information - Inpt Only VTE Present on Admission: No VTE Pharm Prophylaxis ordered?: Yes Patient Problems: Active and Suspected Problems (Last Reviewed 11/18/18 @ 11:34 by Ilana Hale) Left-sided weakness (Acute) - Physical Exam General: Alert, Oriented x3, Cooperative, No apparent distress HEENT: Atraumatic, PERRLA, EOMI, Normocephalic Oral: Moist Mucosa Neck: Supple, No JVD Lungs: Clear to auscultation, Normal air movement Cardiovascular: Regular rate, Regular Rhythm, Normal S1, Normal S2, No murmurs Abdomen: Bowel Sounds Present, Soft, Non Tender, Non-Distended, No Hepato- splenomegaly Extremities: No edema Skin: No rashes Musculoskeletal: No Tenderness to Palpation of Joints or Extremities Lymphatic: No Cervical, Supraclavicular, or Inguinal Adenopathy Neurological: Cranial nerves II-XII grossly intact, Neuro grossly intact Psych/Mental Status: Normal Affect, Appropriate Vital Signs Temp Pulse Resp BP Pulse Ox 98.2 F 84 22 H 133/78 H 94 01/09/19 07:58 01/09/19 08:32 01/09/19 08:32 01/09/19 08:32 01/09/19 08:32 Oxygen Flow Rate (L/min) 2 Oxygen Delivery Method Nasal Cannula Weight: 105.8 kg Body Mass Index (BMI) 35.4 Finger Stick Blood Glucose 164 Laboratory Tests Past 24 Hrs 01/09/19 01/09/19 01/09/19 08:00 08:00 08:00 WBC 10.0 RBC 4.52 L Hgb 13.8 Hct 42.5 MCV 94.0 MCH 30.5 MCHC 32.5 RDW 14.5 RDW Differential 49.4 H Plt Count 252 MPV 9.7 Immature Gran % (Auto) 0.400 Neut % (Auto) 66.3 Lymph % (Auto) 20.8 Evangeline % (Auto) 7.5 Eos % (Auto) 4.7 Baso % (Auto) 0.3 Absolute Neuts (auto) 6.7 Absolute Lymphs (auto) 2.09 Total Counted Not Reportable PT 16.3 H INR 1.3 APTT 33.3 Sodium 141 Potassium 4.0 Chloride 109 H Carbon Dioxide 24.0 Anion Gap 8 BUN 24 H Creatinine 1.20 Estim Creat Clear Calc 52.25 Est GFR (MDRD) Af Amer 76 Est GFR (MDRD) Non-Af 63 BUN/Creatinine Ratio 20.0 Glucose 156 H Calcium 9.0 Troponin I < 0.015 POC Glucose 01/09/19 07:59 POC Glucose 164 H Assessment/Plan All Active Problems (Last Reviewed 11/18/18 @ 11:34 by Ilana Hale) Left-sided weakness (Acute) Leg edema (Acute) Edema (Acute) 73 year old M with past medical history of persistent atrial fibrillation, on Eliquis, hypertension, NOAM, not on CPAP, who comes in with complaints of left- sided weakness that started on the morning of admission. 1. Acute left-sided weakness likely secondary to TIA versus CVA, history of A. fib, on Eliquis CTA of the head was unremarkable; CTA of the neck showed moderate distal stenosis of the left vertebral artery Plan: Admit to PCU, monitor on telemetry, MRI of the brain, 2d-echo, PT/OT/ST to evaluate and treat 2. Hypertension, controlled, would hold blood pressure medications until MRI of the brain is done, if negative we will continue 3. Persistent A. fib, on Eliquis, on beta-brittany, Cardizem, 4. NOAM not on CPAP, because of claustrophobia, needs to follow-up in the outpatient 5. BPH, on Flomax 6. Obesity, BMI 33.8, diet and exercises recommended 7. DVT PPx- on Eliquis Code Visit Inpatient E&M: 41649 Init Hosp L3
--- NOTE | 2019-01-09 10:21 | NURSING ---
PCU OBS TIA PAINTSIL
--- NOTE | 2019-01-09 10:29 | NURSING ---
[id number] PCU
--- NOTE | 2019-01-09 11:03 | MRI_ITS ---
STUDY: MRI BRAIN WITHOUT CONTRAST REASON FOR EXAM: Male, 73 years old. cva,left sided weakness, lt facial droop, slurred speech. TECHNIQUE: Standardized multiplanar fat and water weighted pulse sequences were obtained. COMPARISON: 01/09/2019 CT of the head FINDINGS: There is moderate cerebral atrophy with widening of the extra-axial spaces and ventricular dilatation. There are multiple white matter hyperintensities, distributed throughout the deep white matter tracts of the cerebral hemispheres, consistent with moderate chronic white matter ischemic changes. Again noted is the right frontal encephalomalacia and gliosis, consistent with prior insult. Again noted are the bilateral the basal ganglia and thalamic chronic lacunar infarcts. Normal flow voids within the major intracranial circulation suggesting patency by spin echo criteria. Normal sella turcica, pituitary gland, infundibular stalk, optic chiasm and hypothalamus. Normal tectal plate and pineal gland. Normal midbrain, ignacio and medulla. Normal cerebellum. There is mild paranasal sinus disease. MRI/Brain without Contrast IMPRESSION: No acute intracranial abnormality. Chronic right infarctions. Moderate chronic microvascular ischemic changes. Electronically Signed: Kraig Gates MD at 14:17 EDT Tel , Service support ,
[2019-01-09] MEDS: LORazepam 1 MG Tablet PO (12:40)
[2019-01-09] MEDS: Atorvastatin Calcium 10 MG Tablet PO (21:40)
[2019-01-09] MEDS: Docusate Sodium 100 MG Capsule PO (21:40)
[2019-01-09] MEDS: Metoprolol Tartrate 50 MG Tablet PO (21:40)
[2019-01-09] MEDS: APIXABAN 5 MG TABLET PO (21:40)
[2019-01-10 03:02] VITALS: PULSE 86
[2019-01-10 03:23] VITALS: BP 125/76; PULSE 82; RESP 20; TEMP 36.8; O2SAT 95
[2019-01-10 04:46] LABS: Anion Gap 7 (5-15); BUN 24 mg/dL (7-18); BUN/Creat Ratio 20.9 RATIO (10-20); Calcium,Total 8.8 mg/dL (8.5-10.1); Chloride 108 mmol/L (98-107); Cholesterol 136 mg/dL (200); Creatinine, Serum 1.15 mg/dL (0.70-1.30); EST Glomerular Filtration Rate 66 mL/min (>60); Est Glom Filt Rate - Afr Amer 80 mL/min (>60); Estimated Creatinine Clearance 54.52 ml/min; Glucose 117 mg/dL (74-106); High Density Lipoprotein 47 mg/dL; Potassium 3.9 mmol/L (3.5-5.1); Sodium Level 141 mmol/L (136-145); Triglycerides 88 mg/dL; Very Low Density Lipoprotein 18 mg/dL (5-40)
[2019-01-10 08:00] VITALS: PULSE 99
[2019-01-10] MEDS: 0.9% NaCl Peripheral Flush Adult/Peds IV (08:10)
[2019-01-10] MEDS: dilTIAZem CD 180 MG Capsule PO (08:10)
[2019-01-10] MEDS: Docusate Sodium 100 MG Capsule PO (08:10)
[2019-01-10] MEDS: APIXABAN 5 MG TABLET PO (08:11)
[2019-01-10 08:12] VITALS: PULSE 95
[2019-01-10] MEDS: Metoprolol Tartrate 50 MG Tablet PO (08:12)
[2019-01-10] MEDS: Furosemide 40 MG Tablet PO (08:12)
[2019-01-10 08:30] VITALS: BP 102/90; PULSE 93; RESP 20; TEMP 36.4; O2SAT 94
--- NOTE | 2019-01-10 09:31 | CON.PCM_ITS ---
Reason for Consult Date of Consultation: 01/10/19 Reason for Consultation: cva History of Present Illness: The patient is a 73 year old M right handed male presents with sudden severe right sided weakness, now completely resolved. takes eliquis for afib, no missed doses. no history of known stroke in the past however mri now shows old right mca infarct, no acute. reports symptom onset yesterday morning about 7am (after awake) resolved by 3pm. per admit note:The patient is a 73 year old M with past medical history of persistent atrial fibrillation, on Eliquis, hypertension, NOAM, not on CPAP, who comes in with complaints of left-sided weakness that started on the morning of a dmission. Patient was in his usual state of health, denied any new complaints a day prior to admission. He woke up in the morning with no symptoms. He had an early breakfast. He attempted later on to use his left hand and could not coordinate with his left hand. His left leg also felt weak. He has attempted to stand up, and fell down without hitting his head. He walked to his 's room, and informed her that he was not feeling well. His noted a facial droop and he also said to have slouched down but did not hit his head. EMS was called. Blood sugar on arrival in the ED was 164. His vitals in the ED showed pressure 140/79, temperature 98.2 F, heart rate 98, SPO2 98% on room air, respiratory rate is 18. His admitting WBC count is 10.0, hemoglobin 13.8, platelet count is 252, INR is 1.3, BMP shows sodium 141, potassium 4.2, chloride 109, bicarbonate 24, BUN 24, creatinine 1.2, troponins x2 is negative. CT scan of the head shows no acute abnormality. CT of the head was normal, CT of the neck showed mild atherosclerotic plaque with moderate distal left vertebral artery stenosis. Past Medical History Past Medical History (Chronic Problems): Chronic Problems (Last Reviewed 11/18/18 @ 11:34 by Ilana Hale) Atherosclerotic heart disease of [place] coronary artery without angina pectoris (Chronic) PTCA and LIU from proximal to mid LAD (Promus Element 3.0 X 16) per Dr. Sunshine, [facility] Stented coronary artery (Chronic 11/07/11) PTCA and LIU from proximal to mid LAD (Promus Element 3.0 X 16) per Dr. Sunshine, [facility] History of electrophysiologic study (Chronic 01/27/12) Per Dr. 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) J44.9 (FEV1 80-100%) Emphysema of lung (Chronic) J43.9 NOAM (obstructive sleep apnea) (Chronic) G47.33 Solitary pulmonary nodule (Chronic) R91.1 Persistent atrial fibrillation (Chronic) I48.1 Nonrheumatic aortic (valve) stenosis (Chronic) I35.0 Nonrheumatic tricuspid (valve) insufficiency (Chronic) I36.1 Other secondary pulmonary hypertension (Chronic) I27.29 Fever (Chronic) R50.9 Atrial fibrillation (Chronic) I48.91 Bilateral pulmonary embolism (Chronic) I26.99 Hypertension (Chronic) I10 BPH (benign prostatic hyperplasia) N40.0 Allergies lisinopril Adverse Reaction (Intermediate, Verified 01/09/19 08:23) cough Home Medications: Ambulatory Orders Medication Instructions Recorded Finasteride [Proscar] 5 mg PO DAILY 09/24/15 tamsulosin 0.4 mg capsule 0.8 mg PO DAILY cap 02/28/18 Apixaban [Eliquis] 5 mg PO BID 01/09/19 Atorvastatin Calcium [Lipitor] 10 mg PO QHS 04/29/19 Diltiazem CD [Cardizem CD] 180 mg PO DAILY 01/09/19 Docusate Sodium [Colace] 100 mg PO BID 01/09/19 Furosemide 40 mg PO DAILY 01/09/19 Guaifenesin [Mucus Relief] 400 mg PO BID 01/09/19 Ibuprofen 200 mg PO PRN PRN 01/09/19 Metoprolol Tartrate [Lopressor 50 mg PO BID 01/09/19 (beta brittany)] Surgical History: Surgical History (Last Reviewed 01/10/19 @ 11:41 by Rosalio Rivas MD) Stented coronary artery (Chronic) Onset Date: 11/07/11 Z95.5 PTCA and LIU from proximal to mid LAD (Promus Element 3.0 X 16) per Dr. Sunshine, [facility] History of electrophysiologic study (Chronic) Onset Date: 01/27/[address] River Mobley, [facility] H/O oral surgery Z98.890 2012 History of left cataract surgery Z98.42 2016 Surgical History: cataract - Status post left cataract surgery, - - Status post oral surgery, status post stent Psychiatric History: No pertinent psych hx Lives: Spouse/ Significant Other Smoking Status: Former smoker Tobacco Use: Non-smoker - *Family History Maternal Family History: Family History (Last Reviewed 01/10/19 @ 11:41 by Rosalio Rivas MD) Mother CVA (cerebral vascular accident) Diabetes Other Family history of CVA History Items: Stroke Paternal Family History: Family History (Last Reviewed 01/10/19 @ 11:41 by Rosalio Rivas MD) Mother CVA (cerebral vascular accident) Diabetes Other Family history of CVA History Items: Diabetes Review of Systems Constitutional: Denies: Chills, Fever, Weight Change HEENT: Denies: Head Aches, Sinus Congestion, Sinus Drainage Cardiovascular: Denies: Chest Pain, Palpitations Respiratory: Denies: Cough, Shortness of breath at rest, Sputum production Gastrointestinal: Denies: Abdominal Pain, Nausea, Vomiting Genitourinary: Denies: Dysuria Musculoskeletal: Denies: Joint Pain, Joint Tenderness Skin: Denies: Rash, Wounds Neurological: Denies: Numbness, Tingling, Focal weakness Psychiatric: Denies: Anxiety, Depression, Homicidal Ideations, Suicidal Ideations Hematologic/ Lymphatic: Denies: Easy Bruising, Easy Bleeding Patient Problems: Active and Suspected Problems (Last Reviewed 11/18/18 @ 11:34 by Ilana Hale) Left-sided weakness (Acute) - Physical Exam General: Alert, Oriented x3, Cooperative HEENT: Atraumatic, PERRLA, EOMI, Normocephalic Neck: Supple, No JVD, Negative Carotid Bruits Lungs: Clear to auscultation, Normal air movement Cardiovascular: Regular rate, No murmurs Abdomen: Bowel Sounds Present, Soft, Non Tender Extremities: No edema, Capillary Refill Less than 3 Seconds Skin: No rashes, No breakdown Musculoskeletal: No Tenderness to Palpation of Joints or Extremities Neurological: Cranial nerves II-XII grossly intact Psych/Mental Status: Normal Affect, Appropriate Vital Signs Temp Pulse Resp BP Pulse Ox 36.8 C 95 20 H 125/76 H 95 01/10/19 03:23 01/10/19 08:12 01/10/19 03:23 01/10/19 03:23 01/10/19 03:23 Oxygen Flow Rate (L/min) 2 Oxygen Delivery Method Room Air Weight: 100.9 kg Body Mass Index (BMI) 33.8 Finger Stick Blood Glucose 164 Intake and Output for Last 24 Hours 01/08/19 01/09/19 01/10/19 23:59 23:59 23:59 Intake Total 290 / 290 120 / 120 Output Total 650 / 650 200 / 200 Balance -360 / -360 -80 / -80 Laboratory Tests Past 24 Hrs 01/09/19 01/09/19 01/10/19 11:40 14:20 04:17 Sodium 141 Potassium 3.9 Chloride 108 H Carbon Dioxide 26.0 Anion Gap 7 BUN 24 H Creatinine 1.15 Estim Creat Clear Calc 54.52 Est GFR (MDRD) Af Amer 80 Est GFR (MDRD) Non-Af 66 BUN/Creatinine Ratio 20.9 H Glucose 117 H Calcium 8.8 Troponin I < 0.015 < 0.015 Triglycerides 88 Cholesterol 136 LDL Cholesterol 71 VLDL Cholesterol 18 HDL Cholesterol 47 mri reviewed, no acute. old right mca infarct Assessment/Plan All Active Problems (Last Reviewed 11/18/18 @ 11:34 by Ilana Hale) Left-sided weakness (Acute) Leg edema (Acute) Edema (Acute) tia vs complex partial sz continue eliquis ok to dc eeg, outpt f/u
--- NOTE | 2019-01-10 09:31 | CASEMGMT ---
SW completed PHQ9 with patient as he may have had a Stroke or TIA. Patient scored a 0 which indicates no Depression. Alba VAZQUEZ MSW
[2019-01-10 10:36] VITALS: BMI 33.8
[2019-01-10 11:45] VITALS: PULSE 101
--- NOTE | 2019-01-10 12:09 | DCINST_ITS ---
- Discharge Diagnoses Current Active Problems: Current Active and Chronic Problems (Last Reviewed 11/18/18 @ 11:34 by Ilana Hale) Left-sided weakness (Acute) Reason(s) for Visit for Discharge Instructions: Left weakness You will use the following diet at home:: Cardiac Your food should be the consistency of: Regular Your liquids should be the consistency of: Regular/Thin Discharge Activity: Return to Normal Activity Weight Bearing Status: Weight bearing as tolerated Allergies/Adverse Reactions: Allergies lisinopril Adverse Reaction (Intermediate, Verified 01/09/19 08:23) cough Medications to take at Discharge Finasteride [Proscar] 5 mg PO DAILY 09/24/15 tamsulosin 0.4 mg capsule 0.8 mg PO DAILY cap 02/28/18 Apixaban [Eliquis] 5 mg PO BID 01/09/19 Atorvastatin Calcium [Lipitor] 10 mg PO QHS 01/09/19 Diltiazem CD [Cardizem CD] 180 mg PO DAILY 01/09/19 Docusate Sodium [Colace] 100 mg PO BID 01/09/19 Furosemide 40 mg PO DAILY 01/09/19 Guaifenesin [Mucus Relief] 400 mg PO BID 01/09/19 Metoprolol Tartrate [Lopressor (beta brittany)] 50 mg PO BID 01/09/19 Primary Care Physician: Tomy Hernandez MD [Primary Care Provider] - Please follow up with your Primary Care Physician in: within 2 weeks Test Results: Test results from this visit will be discussed in further detail at your follow- up appointment, if applicable. Please Follow Up With: Rosalio Rivas MD When: in 2 weeks Proposed Discharge Date: 01/10/19
--- NOTE | 2019-01-10 12:10 | PCM.DC.SUM ---
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 Sunshine, [facility] Stented coronary artery (Chronic 11/07/11) PTCA and LIU from proximal to mid LAD (Promus Element 3.0 X 16) per Dr. Sunshine, [facility] History of electrophysiologic study (Chronic 01/27/12) Per Dr. Rivre Mobley, 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 N.B. : The above information has been verbally conveyed by Brendan Garcia to Joe Pembertonlefty on 01/09/2019 08:26:06 (ET). Electronically Signed: Brendan Garcia, at 8:27 EDT , Service support , ADDENDUM: 01/09/19 0834 IMPRESSION: No acute abnormality is seen. N.B. : The above information has been verbally conveyed by Brendan Connorvictoriano to Joe Zaragoza on 01/09/2019 08:26:06 (ET). Electronically Signed: Brendan Peacejefry, at 8:27 EDT , Service support , ADDENDUM: 01/09/19 0954 IMPRESSION: No acute abnormality is seen. N.B. : The above information has been verbally conveyed by Brendan Connorvictoriano to Joe Zaragoza on 01/09/2019 08:26:06 (ET). Electronically Signed: Brendan Peacejefry, at 8:27 EDT , Service support , Chest X-Ray 01/09/19 08:02 IMPRESSION: Stable mild increased markings at the lung bases suggestive of bibasilar scarring. Hyperinflation. Electronically Signed: Brendan Radha, at 9:06 EDT , Service support , Head CTA 01/09/19 08:42 IMPRESSION: Normal [place] of [place] without a demonstrated aneurysm or hemodynamically significant stenosis. Electronically Signed: Brendan Radha, at 9:45 EDT , Service support , Neck CTA 01/09/19 08:42 IMPRESSION: Atherosclerotic plaque with moderate distal left vertebral artery stenosis. Electronically Signed: Kraig Gates MD at 9:59 EDT Tel , Service support , Brain MRI 01/09/19 11:03 IMPRESSION: No acute intracranial abnormality. Chronic right infarctions. Moderate chronic microvascular ischemic changes. Electronically Signed: Kraig Gates MD at 14:17 EDT Tel , Service support , Neurology Operations: None Procedures: 2-D Echocardiogram Summary of Care Provided: 73 year old M with past medical history of persistent atrial fibrillation, on Eliquis, hypertension, NOAM, not on CPAP, who comes in with complaints of left-sided weakness that started on the morning of admission. Patient woke up in the morning of the admission with no symptoms. He had an ad luz. breakfast. He later attempted to use his left hand but could not coordinate with his left hand. His left leg also felt weak. He attempted to stand up and fell down. He notified his , who noted a facial droop. EMS was called. In the emergency department his blood sugar was 164. Vitals were stable with blood pressure 140/79. He was found to have NIH SS of 3. Patient was not a candidate for TPA because of low NIH SS score as well as being anticoagulated with Eliquis. In the emergency department, the CT of the brain was unremarkable. CT of the head and neck showed some atherosclerosis; worse in the left vertebral artery which showed moderate distal stenosis. Patient was admitted to the telemetry bed. No acute events overnight. MRI of the brain was negative for any acute strokes. His lipid profile showed total cholesterol 136, triglyceride 88, LDL 71, HDL 47. Patient was seen by Neurology, EEG recommended as well as outpatient follow-up. He was continued on his Eliquis and will follow-up in 2 weeks. 2D echo was pending at the time of discharge Patient Problems: Active and Suspected Problems (Last Reviewed 11/18/18 @ 11:34 by Ilana Hale) Left-sided weakness (Acute) Subjective: Patient seen and examined. He feels well. No new complains - Physical Exam General: Alert, Oriented x3, Cooperative, No apparent distress, - - obese HEENT: Atraumatic, PERRLA, EOMI, Normocephalic Oral: Moist Mucosa Neck: Supple Lungs: Clear to auscultation, Normal air movement Cardiovascular: Regular rate, Regular Rhythm, Normal S1, Normal S2, No murmurs Abdomen: Bowel Sounds Present, Soft, Non Tender, Non-Distended, No Hepato-splenomegaly Extremities: No edema Skin: No rashes, No breakdown Musculoskeletal: No Tenderness to Palpation of Joints or Extremities Lymphatic: No Cervical, Supraclavicular, or Inguinal Adenopathy Neurological: Cranial nerves II-XII grossly intact, Neuro grossly intact Psych/Mental Status: Normal Affect, Appropriate Vital Signs Temp Pulse Resp BP Pulse Ox 97.5 F L 101 H 20 H 102/90 H 94 01/10/19 08:30 01/10/19 11:45 01/10/19 08:30 01/10/19 08:30 01/10/19 08:30 Oxygen Flow Rate (L/min) 2 Oxygen Delivery Method Room Air Weight: 100.9 kg Body Mass Index (BMI) 33.8 Finger Stick Blood Glucose 164 Intake and Output for Last 24 Hours 01/08/19 01/09/19 01/10/19 23:59 23:59 23:59 Intake Total 290 / 290 120 / 120 Output Total 650 / 650 200 / 200 Balance -360 / -360 -80 / -80 Laboratory Tests Past 24 Hrs 01/09/19 01/10/19 14:20 04:17 Sodium 141 Potassium 3.9 Chloride 108 H Carbon Dioxide 26.0 Anion Gap 7 BUN 24 H Creatinine 1.15 Estim Creat Clear Calc 54.52 Est GFR (MDRD) Af Amer 80 Est GFR (MDRD) Non-Af 66 BUN/Creatinine Ratio 20.9 H Glucose 117 H Calcium 8.8 Troponin I < 0.015 Triglycerides 88 Cholesterol 136 LDL Cholesterol 71 VLDL Cholesterol 18 HDL Cholesterol 47 Discharge Diet: Low fat/ Low Cholesterol, 2000 mg Sodium Diet Discharge Activity: Return to Normal Activity Weight Bearing Status: Weight bearing as tolerated Call your doctor if your incision/area has: Continuous Slow Oozing Call your doctor if you observe: Fever of 101 or Higher, Coldness, Increased Pain, Numbness or Tingling Home Medications: Medications to take at Discharge Finasteride [Proscar] 5 mg PO DAILY 09/24/15 tamsulosin 0.4 mg capsule 0.8 mg PO DAILY cap 02/28/18 Apixaban [Eliquis] 5 mg PO BID 01/09/19 Atorvastatin Calcium [Lipitor] 10 mg PO QHS 01/09/19 Diltiazem CD [Cardizem CD] 180 mg PO DAILY 01/09/19 Docusate Sodium [Colace] 100 mg PO BID 01/09/19 Furosemide 40 mg PO DAILY 01/09/19 Guaifenesin [Mucus Relief] 400 mg PO BID 01/09/19 Metoprolol Tartrate [Lopressor (beta brittany)] 50 mg PO BID 01/09/19 Primary Care Physician: Tomy Hernandez MD [Primary Care Provider] - Please follow up with your Primary Care Physician in: within 2 weeks Please Follow Up With: Rosalio Rivas MD When: in 2 weeks Disposition: Home Minutes spent on discharge:: 40 Patient Condition:: Stable Medical Necessity - Tobacco Use Smoking Status: Former smoker Tobacco Use: Non-smoker Meaningful Use Info Meaningful Use Diagnoses (Choose all that apply): None applicable Code Visit Inpatient E&M: 62995 Disch Hosp
--- NOTE | 2019-01-11 14:57 | CASEMGMT ---
[facility] Discharge F/U Phone Call LACE: 9 Strata: 3 Discharge date: 01/10/19 Call date: 01/11/19 Call time: [id number] Duration: 3 minutes Admission dx: Left sided weakness, TIA vs complex partial seizure Pt's answered as pt is out on the mower at this time. Per , pt is doing 'great.' states no questions regarding discharge instructions or medications at this time. states that they have f/u appt's scheduled with PCP, cardio, and neuro. states no suggestions for [facility] at this time and states 'It was wonderful and went really well.' voices no further questions/concerns/needs at this time. S[place]en MARYCRUZ GRAHAM
--- NOTE | 2019-01-13 11:14 | EEG_ITS ---
- Electroencephalogram This is an 18 channel electroencephalogram performed utilizing the international 1020 electrode placement protocol on this 73-year-old male with a history of sudden severe headache associated with high blood pressure. The test is performed utilizing EKG reference leads, photic stimulation and hyperventilation as well. Background activity is 10 Hz symmetrically with attenuates with eye- opening. Hyperventilation is performed 2 minutes without lateralizing or epileptiform changes in the post hyperventilatory phase is unremarkable. The patient remained awake throughout the recording. EKG does demonstrate occasional PVCs. Photic summation generates a normal symmetric driving response in the posterior leads. Impression: 1 normal awake electroencephalogram. 2 occasional PVC as recorded. Clinical correlation is recommended and further evaluation with formal EKG if clinically indicated.
== END 2019-01-10 13:40 | disposition home or self-care (01) | DRG 69 ==
LOC: ED 08:47 → ICU 10:38
PROVIDERS: Admitting Provider Internal Medicine; Emergency Provider Emergency Medicine; Family Provider Internal Medicine; PCP Internal Medicine; Visit Provider Internal Medicine
DX: G45.9 Transient cerebral ischemic attack, unspecified (principal); I48.1 Persistent atrial fibrillation; R56.9 Unspecified convulsions; E78.5 Hyperlipidemia, unspecified; G47.33 Obstructive sleep apnea (adult) (pediatric); I27.20 Pulmonary hypertension, unspecified; I10 Essential (primary) hypertension; I25.10 Atherosclerotic heart disease of native coronary artery without angina pectoris; Z95.5 Presence of coronary angioplasty implant and graft; J43.9 Emphysema, unspecified; Z79.01 Long term (current) use of anticoagulants; Z87.891 Personal history of nicotine dependence
CPT/HCPCS: 70450; 70496; 70498; 70551; 71045; 80048; 80061; 82962; 84484; 85025; 85610; 85730; 93005; 95819; 97802; 99285; Q9967; A4216

== ENCOUNTER → 2019-01-17 12:39 | Outpatient (CLI) | payer MEDICARE, OTHER, SELFPAY ==
[2018-11-18 11:34] VITALS: BMI 35.9
[2019-01-10 10:36] VITALS: BMI 33.8
[2019-01-17 14:14] LABS: PSA,Total - Annual Screen 6.76 ng/mL (0.00-4.00)
== END ==
PROVIDERS: Family Provider Internal Medicine; PCP Internal Medicine; Referring Provider Urology; Visit Provider Urology
DX: Z12.5 Encounter for screening for malignant neoplasm of prostate (principal)
CPT/HCPCS: 36415; 84153; G0103

== ENCOUNTER → 2019-08-15 09:50 | Outpatient (CLI) | payer MEDICARE, OTHER, SELFPAY ==
[2019-02-28 09:48] VITALS: BMI 34.8
[2019-07-03 13:04] VITALS: BMI 34.7
--- NOTE | 2019-08-15 13:04 | PFTCOMP ---
COMPLETE PULMONARY FUNCTION TEST INTERPRETATION Brief HPI: Patient is a 73 year old male, currently under the care of myself, who presents to [facility] for complete pulmonary function tests secondary to diagnosis of COPD. Respiratory therapist reports good effort and reproducible results. Interpretation: Forced expiration spirometry shows a mild large airways obstructive ventilatory defect with an FEV1 of 78% predicted. There is no significant bronchodilator response by strict ATS criteria. Spirograms are of good quality and plateau normally. The respiratory flow volume loop shows a normal pattern. Lung volumes by body plethysmography show a decreased total lung capacity at 4.71 L, 79% predicted. All other lung volumes are reduced symmetrically. Diffusion capacity by carbon monoxide is decreased at 62% predicted. The airway resistance is normal. Compared to previous pulmonary function tests from 09/14/2017, there has been no significant change. Impression: Mild mixed ventilatory defect with a symmetric reduction diffusing capacity and no change compared to September 2017
== END ==
PROVIDERS: Family Provider Internal Medicine; PCP Internal Medicine; Referring Provider Internal Medicine Critical Care Medicine; Visit Provider Internal Medicine Critical Care Medicine
DX: J44.9 Chronic obstructive pulmonary disease, unspecified (principal); I27.29 Other secondary pulmonary hypertension
CPT/HCPCS: 94060; 94726; 94729

== ENCOUNTER → 2019-08-16 10:40 | Outpatient (CLI) | payer MEDICARE, OTHER, SELFPAY ==
[2019-02-28 09:48] VITALS: BMI 34.8
[2019-07-03 13:04] VITALS: BMI 34.7
[2019-08-16 10:58] VITALS: PULSE 100; PULSE 102; PULSE 107; PULSE 114; PULSE 121; PULSE 90; PULSE 93; O2SAT 91; O2SAT 92; O2SAT 93; O2SAT 94
--- NOTE | 2019-08-16 15:20 | PCM.PSN.6M ---
PSN 6 Minute Walk Test - 6 Minute Walk Test 6 Minute Walk Test: 6 Minute Walk Test PSN:6-Minute Walk Test Start: 08/16/19 10:58 Freq: Status: Active Protocol: [id number].6MINW Document 08/16/19 10:58 SMB (Rec: 08/16/19 11:00 SMB [id number]) 6 Minute Walk Test Date Performed 08/16/19 Time Performed 10:46 Height 5 ft 8 in Weight: 104.326 kg Weight in Pounds 230.[address]: Bran Russell Assistive device used: None Pre-test Oxygen Delivery Method Room Air Pulse Ox (%) 93 Pulse Rate (60-100 beats/min) 93 Dyspnea Terrell Scale (0-10) 0 Exertion Terrell Scale (6-20) 11 1st minute Oxygen Delivery Method Room Air Pulse Ox (%) 94 Pulse Rate (60-100 beats/min) 90 2nd minute Oxygen Delivery Method Room Air Pulse Ox (%) 91 Pulse Rate (60-100 beats/min) 107 H 3rd minute Oxygen Delivery Method Room Air Pulse Ox (%) 91 Pulse Rate (60-100 beats/min) 114 H 4th minute Oxygen Delivery Method Room Air Pulse Ox (%) 92 Pulse Rate (60-100 beats/min) 100 5th minute Oxygen Delivery Method Room Air Pulse Ox (%) 91 Pulse Rate (60-100 beats/min) 121 H 6th minute Oxygen Delivery Method Room Air Pulse Ox (%) 91 Pulse Rate (60-100 beats/min) 102 H Post-test Oxygen Delivery Method Room Air Pulse Ox (%) 93 Pulse Rate (60-100 beats/min) 90 Dyspnea Terrell Scale (0-10) 0 Exertion Terrell Scale (6-20) 12 Full Laps Walked 18 Partial Lap, Number of Tiles Walked 13 Total Distance Walked (ft) 1075 - Interpretation Interpretation: Patient was able to ambulate 1075 feet over the course of 6 minutes on room air with no assist devices or breaks. The patient did desaturate as low as 91% and had a peak heart rate of 121 bpm. These findings are consistent with a respiratory limitation exercise tolerance. - Recommendations Recommendations: No supplemental oxygen is indicated at this time. However, patient will need to be followed closely given level of desaturation.
== END ==
PROVIDERS: Family Provider Internal Medicine; PCP Internal Medicine; Referring Provider Internal Medicine Critical Care Medicine; Visit Provider Internal Medicine Critical Care Medicine
DX: J44.9 Chronic obstructive pulmonary disease, unspecified (principal); I27.29 Other secondary pulmonary hypertension
CPT/HCPCS: 94618

== ENCOUNTER → 2020-07-17 07:37 | Outpatient (CLI) | payer MEDICARE, OTHER, SELFPAY ==
[2020-01-04 11:49] VITALS: BMI 36.1
--- NOTE | 2020-07-17 07:45 | ECHOCS_ITS ---
Reason For Study: VALVE REPLACEMENT EVAL Procedure This was a 2D Doppler, Color Flow transthoracic echocardiogram. Exam performed in department. Left Ventricle Normal LV size. Left ventricular systolic function is normal. The estimated ejection fraction is 65 %. No regional wall motion abnormalities noted. Right Ventricle Normal RV size. Normal systolic function. Tricuspid Valve Normal tricuspid valve. Mild (1+) tricuspid valve insufficiency. Pulmonary artery systolic pressure is 38 mmHg. Aortic Valve Trisinus/trileaflet aortic valve. Moderate focal aortic valve calcification. Peak aortic valve gradient 48 mmHg. Mean aortic valve gradient 33 mmHg. Moderate aortic stenosis. Pulmonic Valve Normal pulmonic valve. Mild (1+) pulmonic valve insufficiency. Great Vessels Normal aortic root. The pulmonary artery is normal size. Normal inferior vena cava. Pericardium/Pleural No pericardial effusion. Medication 22 gauge I.V. with prn adaptor inserted into left arm. Diluted definity 5ml given slow IV push to enhance endocardial definition. MMode/2D Measurements & Calculations LVIDd: 4.3 cm IVSd: 0.98 cm LVOT diam: 2.0 cm LVIDs: 2.7 cm LVPWd: 1.1 cm LVOT area: 3.2 cm2 RVDd: 4.4 cm FS: 36.6 % Ao root diam: 3.2 cm LAV(MOD-bp): 84.8 ml LVAd ap4: 22.6 cm2 LAV(MOD-bp) Indexed: 38.4 ml/m2 EDV(MOD-sp4): 63.9 ml LAV(MOD-sp2): 73.8 ml EDV(sp4-el): 68.0 ml LAV(MOD-sp4): 91.9 ml LVAs ap4: 11.8 cm2 ESV(MOD-sp4): 21.9 ml ESV(sp4-el): 22.9 ml EF(MOD-sp4): 65.7 % EF(sp4-el): 66.3 % SV(MOD-sp4): 42.0 ml SV(sp4-el): 45.1 ml LA A4 area: 27.9 cm2 LA dimension(2D): 4.8 cm RA A4 area: 22.3 cm2 Doppler Measurements & Calculations MV E max michael: 131.4 cm/sec Ao V2 max: 346.8 cm/sec LV V1 max: 85.3 cm/sec Ao max P.2 mmHg LV V1 max P.9 mmHg Ao V2 mean: 279.7 cm/sec LV V1 mean P.5 mmHg Ao mean P.4 mmHg LV V1 mean: 57.6 cm/sec Ao V2 VTI: 76.7 cm LV V1 VTI: 19.0 cm PAIGE(I,D): 0.78 cm2 PAIGE(V,D): 0.78 cm2 SV(LVOT): 60.2 ml PA V2 max: 102.8 cm/sec PI end-d michael: 142.5 cm/sec TR max michael: 291.2 cm/sec TR max P.0 mmHg Interpretation Summary Normal LV size. Left ventricular systolic function is normal. The estimated ejection fraction is 65 %. Mean aortic valve gradient 33 mmHg. Pulmonary artery systolic pressure is 38 mmHg. Moderate focal aortic valve calcification. Moderate aortic stenosis. Contrast injection was performed. Ordering Physician: Jeff Bowie Referring Physician: LEODAN CARDONA Performed By: Jessica Marino RDCS
[2020-07-17 09:29] LABS: AST(SGOT) 17 U/L (15-37); Alanine Aminotransfer ALT/SGPT 27 U/L (16-61); Albumin, Serum 3.9 g/dL (3.2-5.0); Alkaline Phosphatase 112 U/L (45-117); Bilirubin, Direct 0.22 mg/dL (0.00-0.30); Cholesterol 145 mg/dL (200); Globulin 4.6 g/dL (2.2-4.2); High Density Lipoprotein 47 mg/dL; Protein, Total 8.5 g/dL (6.4-8.2); Triglycerides 125 mg/dL; Very Low Density Lipoprotein 25 mg/dL (5-40)
== END ==
PROVIDERS: PCP Internal Medicine; Referring Provider Internal Medicine Cardiovascular Disease; Visit Provider Internal Medicine Cardiovascular Disease
DX: I27.29 Other secondary pulmonary hypertension (principal); Z98.890 Other specified postprocedural states; E78.5 Hyperlipidemia, unspecified
CPT/HCPCS: 36415; 80061; 80076; 93306; Q9957; A4216; C8929

== ENCOUNTER 2020-10-03 15:56 | Inpatient (IN) | payer MEDICARE, OTHER, SELFPAY ==
[2020-07-25 10:53] VITALS: BMI 37.5
[2020-10-03] VITALS (15 sets, daily range): BP systolic 111–155; BP diastolic 70–133; PULSE 89–126; RESP 22–28; TEMP 36.1–38.3; O2SAT 73–97; BMI 37.2; BMI 36.5
--- NOTE | 2020-10-03 16:08 | EKG12_ITS ---
Test Reason : SOB Blood Pressure : / mmHG Vent. Rate : 119 BPM Atrial Rate : 117 BPM P-R Int : 000 ms QRS Dur : 082 ms QT Int : 286 ms P-R-T Axes : 000 050 022 degrees QTc Int : 402 ms Atrial fibrillation with rapid ventricular response Nonspecific ST abnormality Abnormal ECG Confirmed by INDIRA HATCH, PHONG ([id number]), production editor BRET PERLA ([id number]) on 10/08/2020 10:42:27 AM Referred By: MARISELA Confirmed By:PHONG JACOBSON MD
--- NOTE | 2020-10-03 16:16 | ED.VIS.GEN ---
History of Present Illness Chief Complaint: Shortness of Breath Informant: Patient Onset: Days Context: Gradual Onset Timing: Continuous Current Severity: Moderate Maximum Severity: Moderate Narrative: The patient is a 75-year-old male with medical history significant for atrial fibrillation, COPD on home oxygen, aortic valve disease who presents to the emergency department shortness of breath. Patient states he tested positive for Covid about a week ago. He states that he is been having some mild increase shortness of breath. He said a scant cough. He states he is also had some malaise and nausea. On arrival, the patient was markedly hypoxic. He had an oxygen saturation of 76% on room air. He states he is not on oxygen at home. He denies being symptomatically short of breath. He states is mostly when he exerts himself that he feels like this. He has been compliant with all his medications. He denies chest pain orthopnea. He is unsure if he has had fever. Prior similar symptoms: No Recent Illness/Hospitalization: No Past Medical History - Allergies and Home Meds Allergies/Adverse Reactions: Allergies lisinopril Adverse Reaction (Intermediate, Verified 07/25/20 10:51) cough Primary Care Physician: Tomy Hernandez MD [Primary Care Provider] - Prior records reviewed: Yes Past Medical History: - - COPD, A. fib, aortic stenosis Surgical History: cataract - Status post left cataract surgery, - - Status post oral surgery, status post stent Smoking Status: Former smoker - Family History Maternal Family History: Family History (Last Reviewed 07/25/20 @ 11:17 by Anai CHAMBERS, PA) Mother CVA (cerebral vascular accident) Diabetes Other Family history of CVA Family History: Reports: Stroke Paternal Family History: Family History (Last Reviewed 07/25/20 @ 11:17 by Anai CHAMBERS, PA) Mother CVA (cerebral vascular accident) Diabetes Other Family history of CVA Family History: Reports: Diabetes Review of Systems General: Reports: Chills. Denies: Fever, Sweats Eyes: Denies: Visual changes - bilaterally, Diplopia ENT: Denies: Rhinorrhea, Sore throat Cardiovascular: Denies: Chest pain, Palpitations Respiratory: Reports: Dyspnea, Cough. Denies: Dyspnea on exertion Gastrointestinal: Reports: Nausea, Diarrhea. Denies: Abdominal pain, Vomiting, Melena, Hematochezia Genitourinary: Denies: Dysuria, Hematuria, Frequency Musculoskeletal: Reports: Myalgias. Denies: Back pain, Extremity Pain Skin: Denies: Rash, Wounds Neurological: Denies: Headache, Weakness, Numbness Physical Exam Vital Signs/Narrative: Vital Signs Temp Pulse Resp BP Pulse Ox 10/03/20 15:57 101 F H 126 H 22 H 155/95 H 90 Inital Vital Signs reviewed: Yes General: Well nourished, Well developed, No Acute Distress Head: Normocephalic, Atraumatic Eyes: Perrl, EOMI ENT: Moist mucous membranes, No rhinorrhea Neck: Supple, Nontender Cardiovascular: No murmurs, Irregular, Tachycardia Respiratory: No distress, Chest nontender, Wheezing, Diminished Abdomen: Soft, Nontender, Nondistended, Normal bowel sounds Back: Nontender, Normal Inspection Extremities: Nontender, No edema Skin: Normal color, No rash Neurological: Alert, Oriented x3, Cranial nerves II-XII grossly intact, Normal Strength, Normal Sensation Psychological: Normal affect, Normal Mood Diagnostic/Tx/Re-eval Clinical Impression(s) from Imaging Studies Chest X-Ray 10/03/20 16:35 IMPRESSION: Bilateral pneumonia. Electronically Signed: Andrea Anthony MD at 17:29 EST Tel , Service support , Abnormal Lab Results 10/03/20 10/03/20 10/03/20 16:20 16:20 16:20 WBC 7.3 RBC 4.47 L Hgb 13.5 Hct 41.4 MCV 92.6 MCH 30.2 MCHC 32.6 RDW Std Deviation 45.6 H RDW Coeff of Zackary 13.2 Plt Count 229 MPV 10.0 Immature Gran % (Auto) 0.800 Neut % (Auto) 84.6 H Lymph % (Auto) 8.3 L Lassen % (Auto) 6.1 Eos % (Auto) 0.1 Baso % (Auto) 0.1 Absolute Neuts (auto) 6.2 Absolute Lymphs (auto) 0.61 L Nucleated RBC % 0 Sodium 141 Potassium 3.2 L Chloride 109 H Carbon Dioxide 26.0 Anion Gap 6 BUN 15 Creatinine 1.08 Estim Creat Clear Calc 56.30 Est GFR (MDRD) Af Amer 86 Est GFR (MDRD) Non-Af 71 BUN/Creatinine Ratio 13.9 Glucose 124 H Lactic Acid 1.4 Calcium 8.8 Total Bilirubin 0.50 AST 34 ALT 40 Alkaline Phosphatase 64 Troponin I < 0.015 B-Natriuretic Peptide Total Protein 7.9 Albumin 3.1 L Globulin 4.8 H Albumin/Globulin Ratio 0.6 L 10/03/20 16:20 WBC RBC Hgb Hct MCV MCH MCHC RDW Std Deviation RDW Coeff of Zackary Plt Count MPV Immature Gran % (Auto) Neut % (Auto) Lymph % (Auto) Lassen % (Auto) Eos % (Auto) Baso % (Auto) Absolute Neuts (auto) Absolute Lymphs (auto) Nucleated RBC % Sodium Potassium Chloride Carbon Dioxide Anion Gap BUN Creatinine Estim Creat Clear Calc Est GFR (MDRD) Af Amer Est GFR (MDRD) Non-Af BUN/Creatinine Ratio Glucose Lactic Acid Calcium Total Bilirubin AST ALT Alkaline Phosphatase Troponin I B-Natriuretic Peptide 94.9 Total Protein Albumin Globulin Albumin/Globulin Ratio - Rhythm Strip Rhythm Strip: A-fib Rate: 110 Ectopy: PAC(s) - EKG Initial EKG Interpretation: No Acute Injury Pattern, Atrial Fibrillation Prior: Unchanged - Medical Decision Making The patient is a 75-year-old male Covid positive the presents with shortness of breath. On arrival, the patient is profoundly hypoxic with saturations in the mid 70s. He was placed on 6 L of supplemental oxygen with saturations about 90%. He is in no distress. Patient was ordered IV Decadron. Chest x-ray shows evidence of bilateral patchy infiltrates consistent with his Covid. Labs are relatively unremarkable. He has no lactic acidosis. EKG was obtained which shows atrial fibrillation with rapid ventricular response at a rate of 120. I did not aggressively treat his rate as I do feel that this is likely secondary to his underlying infectious process. With a significant oxygen requirement and multiple comorbidities, I do feel that he would benefit from hospitalization. The patient was discussed with the hospitalist. Impression 1. COVID-19 2. Bilateral pneumonia 3. Hypoxia requiring supplemental oxygen 4. Atrial fibrillation with rapid ventricular response ED Disposition - Plan for ED Patient: Referrals: Tomy Hernandez MD [Primary Care Provider] -
[2020-10-03] MEDS: Acetaminophen 500 MG Tablet 1000 MG PO (16:27)
[2020-10-03] MEDS: dexAMETHasone 10 MG/ML Vial 6 MG IV (16:27)
--- NOTE | 2020-10-03 16:35 | RAD_ITS ---
STUDY: X-RAY CHEST REASON FOR EXAM: Male, 75 years old. PT C/O SOB, TESTED COVID POSITIVE 6 DAYS AGO, COUGH, DIARRHEA. TECHNIQUE: Single AP portable view of the chest. COMPARISON: 01/09/2019 FINDINGS: Alveolar opacities in both lungs consistent with bilateral pneumonia. There is no demonstrated pleural abnormality. There is moderate cardiac enlargement. Normal mediastinum and kristy. Normal visualized pulmonary arteries. Normal visualized aortic arch and descending thoracic aorta. Normal visualized thoracic spine. Normal visualized ribs, clavicles, and shoulders. There is no demonstrated abnormality of the visualized soft tissue structures of the upper abdomen. RAD/Chest 1 View (Portable) IMPRESSION: Bilateral pneumonia. Electronically Signed: Andrea Anthony MD at 17:29 EST Tel , Service support ,
[2020-10-03 16:58] LABS: Absolute Lymphocyte Count 0.61 X10^3/uL (0.83-4.51); Absolute Neutrophil Count 6.2 X10^3/uL (2.0-7.7); Basophil# 0.01 X10^3/uL; Basophil% 0.1 % (0-1); Eosinophil# 0.01 X10^3/uL; Eosinophils% 0.1 % (0-5); Hematocrit 41.4 % (40-54); Hemoglobin 13.5 g/dL (13.0-16.5); Lymphocyte # 0.61 X10^3/ul (4.0); Lymphocyte % 8.3 % (19-41); Mean Corp Hgb Conc 32.6 g/dL (32-36); Mean Corpuscular Hgb 30.2 pg (27.0-32.0); Mean Corpuscular Volume 92.6 fL (80-94); Monocyte# 0.45 X10^3/uL; Monocyte% 6.1 % (0-10); NRBC Flagged by Analyzer 0 % (0-5); Neutrophil # 6.19 X10^3/uL (2.7-7.7); Neutrophil % 84.6 % (47-70); Platelet Count 229 K/mm3 (150-450); RBC Distribution Width CV 13.2 % (11.6-14.6); RBC Distribution Width SD 45.6 fl (35.1-43.9); Red Blood Count 4.47 M/mm3 (4.6-6.2); White Blood Count 7.3 K/mm3 (4.4-11.0)
[2020-10-03 17:15] LABS: ALB/GLOB Ratio 0.6 RATIO (0.9-2.4); AST(SGOT) 34 U/L (15-37); Alanine Aminotransfer ALT/SGPT 40 U/L (16-61); Albumin, Serum 3.1 g/dL (3.2-5.0); Alkaline Phosphatase 64 U/L (45-117); Anion Gap 6 (5-15); BUN 15 mg/dL (7-18); BUN/Creat Ratio 13.9 RATIO (10-20); Calcium,Total 8.8 mg/dL (8.5-10.1); Chloride 109 mmol/L (98-107); Creatinine, Serum 1.08 mg/dL (0.70-1.30); EST Glomerular Filtration Rate 71 mL/min (>60); Est Glom Filt Rate - Afr Amer 86 mL/min (>60); Globulin 4.8 g/dL (2.2-4.2); Glucose 124 mg/dL (74-106); Lactic Acid 1.4 mmol/L (0.4-1.9); Potassium 3.2 mmol/L (3.5-5.1); Protein, Total 7.9 g/dL (6.4-8.2); Sodium Level 141 mmol/L (136-145)
[2020-10-03 17:17] LABS: BNP,B-Type NATRIURETIC PEPTIDE 94.9 pg/mL (0-100)
--- NOTE | 2020-10-03 18:31 | PCM.HP.STD ---
<Yannick De Santiago - Last Filed: 10/03/20 18:31> Problem List (1) Acute respiratory failure with hypoxia Status: Acute (2) COVID-19 Status: Acute (3) Atrial fibrillation with RVR Status: Acute (4) BPH (benign prostatic hyperplasia) Status: Chronic (5) Hyperlipidemia Status: Chronic Qualifiers: Hyperlipidemia type: unspecified Qualified Code(s): E78.5 - Hyperlipidemia, unspecified (6) NOAM (obstructive sleep apnea) Status: Chronic (7) PAH (pulmonary artery hypertension) Status: Chronic (8) Bilateral pulmonary embolism Status: Chronic (9) Hypertension Status: Chronic Qualifiers: Hypertension type: essential hypertension Qualified Code(s): I10 - Essential (primary) hypertension History of Present Illness Date of Admission: 10/03/20 Chief Complaint: SOB The patient is a 75 year old M with pmhx of chronic Afib pt of Dr. Rivera, pulmonary HTN and COPD pt of Dr. Russell, NOAM, BPH, pulmonary embolism, moderate aortic stenosis, recent dx of covid 19 ([facility]) 8 days prior who presented to the ER with SOB. The patient called his window glazier helper Dr. Russell who told him to come to the ER. He has been progressively more SOB with cough, fatigue, headache this past week. He was found to have significant hypoxia and pna on cxr. He is now on 6lpm o2 and normally uses none at home. He also was found to have afib with RVR. No CP, palpitations.[] Past Medical History Past Medical History (Chronic Problems): Chronic Problems (Last Reviewed 07/25/20 @ 11:17 by Anai CHAMBERS, PA) BPH (benign prostatic hyperplasia) (Chronic) Hyperlipidemia (Chronic) 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) (FEV1 80-100%) Emphysema of lung (Chronic) NOAM (obstructive sleep apnea) (Chronic) Solitary pulmonary nodule (Chronic) Persistent atrial fibrillation (Chronic) Nonrheumatic aortic (valve) stenosis (Chronic) Nonrheumatic tricuspid (valve) insufficiency (Chronic) Other secondary pulmonary hypertension (Chronic) Abnormal electrocardiogram (Chronic) detention use of drug (Chronic) Antihyperlipidemic PAH (pulmonary artery hypertension) (Chronic) Fever (Chronic) Atrial fibrillation (Chronic) Bilateral pulmonary embolism (Chronic) Hypertension (Chronic) Medical History: Medical History (Last Reviewed 07/25/20 @ 11:17 by Anai CHAMBERS, PA) BPH (benign prostatic hyperplasia) (Chronic) N40.0 Left-sided weakness (Acute) R53.1 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 complex partial seizure. Hyperlipidemia (Chronic) E78.5 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) J44.9 (FEV1 80-100%) Emphysema of lung (Chronic) J43.9 NOAM (obstructive sleep apnea) (Chronic) G47.33 Solitary pulmonary nodule (Chronic) R91.1 Persistent atrial fibrillation (Chronic) I48.1 Nonrheumatic aortic (valve) stenosis (Chronic) I35.0 Nonrheumatic tricuspid (valve) insufficiency (Chronic) I36.1 Other secondary pulmonary hypertension (Chronic) I27.29 Fever (Chronic) R50.9 Atrial fibrillation (Chronic) I48.91 Bilateral pulmonary embolism (Chronic) I26.99 Hypertension (Chronic) I10 Allergies lisinopril Adverse Reaction (Intermediate, Verified 07/25/20 10:51) cough Home Medications: Ambulatory Orders Medication Instructions Recorded RX: Finasteride [Proscar] 5 mg PO DAILY 09/24/15 tamsulosin 0.4 mg capsule 0.8 mg PO DAILY cap 02/28/18 diltiazem HCl 180 mg 180 mg PO DAILY #90 cap 08/25/19 capsule,extended release 24 hr atorvastatin 10 mg tablet 10 mg PO QHS #90 tab 10/30/19 metoprolol tartrate 50 mg tablet 50 mg PO BID #180 tab 10/30/19 furosemide 40 mg tablet 40 mg PO DAILY #90 tab 03/12/20 apixaban 5 mg tablet 5 mg PO BID #180 tab 09/19/20 Surgical History: Surgical History (Last Reviewed 07/25/20 @ 11:17 by Anai CHAMBERS, PA) H/O oral surgery (Resolved) Z98.890 2011 History of left cataract surgery (Resolved) Z98.42 2015 Surgical History: cataract - Status post left cataract surgery, - - Status post oral surgery, status post stent Psychiatric History: No pertinent psych hx Lives: Spouse/ Significant Other Smoking Status: Former smoker Tobacco Use: Non-smoker Alcohol: None Drugs: None - *Family History Maternal Family History: Family History (Last Reviewed 10/03/20 @ 18:40 by TRISH Mcfarland) Mother CVA (cerebral vascular accident) Diabetes Other Family history of CVA History Items: Stroke Paternal Family History: Family History (Last Reviewed 10/03/20 @ 18:40 by TRISH Mcfarland) Mother CVA (cerebral vascular accident) Diabetes Other Family history of CVA History Items: Diabetes Review of Systems Constitutional: Reports: Malaise, Weakness, Fatigue. Denies: Chills, Fever, Weight Change HEENT: Denies: Head Aches, Sinus Congestion, Sinus Drainage Cardiovascular: Denies: Chest Pain, Chest Tightness, Edema, Heaviness, Light Headedness, Palpitations, Syncope Respiratory: Reports: Cough, Shortness of Breath, Shortness of breath at rest, Shortness of breath upon exertion. Denies: Sputum production Gastrointestinal: Denies: Abdominal Pain, Nausea, Vomiting Genitourinary: Reports: Retention. Denies: Dysuria, Hesitancy, Urgency Musculoskeletal: Denies: Joint Pain, Joint Tenderness, Muscle pain Skin: Denies: Lesions, Rash, Wounds Neurological: Denies: Confusion, Focal weakness, Numbness, Tingling Psychiatric: Denies: Anxiety, Depression, Homicidal Ideations, Suicidal Ideations Hematologic/ Lymphatic: Denies: Easy Bruising, Easy Bleeding VTE Information - Inpt Only VTE Present on Admission: No VTE Mechan Device Prophylaxis: None VTE Pharm Prophylaxis ordered?: Yes - Physical Exam Vitals/I&O's: Vital Signs Temp Pulse Resp BP Pulse Ox 98.4 F 109 H 23 H 128/79 H 93 10/03/20 17:47 10/03/20 17:47 10/03/20 17:47 10/03/20 17:47 10/03/20 17:47 Oxygen Flow Rate (L/min) 6 Oxygen Delivery Method Nasal Cannula Weight: 244 lb 11.41 oz Body Mass Index (BMI) 37.2 Finger Stick Blood Glucose 164 General: Alert, Oriented x3, Cooperative HEENT: Atraumatic, PERRLA, EOMI, Normocephalic Neck: Supple, No JVD, Negative Carotid Bruits Lungs: Clear to auscultation, Diminished Cardiovascular: Regular rate, Irregular Rate, Murmur - 3/6 systolic murmur best heard over the RSB 2nd ICS, Tachycardic Abdomen: Bowel Sounds Present, Soft, Non Tender Extremities: No edema, Capillary Refill Less than 3 Seconds Skin: No rashes, No breakdown Musculoskeletal: No Tenderness to Palpation of Joints or Extremities Neurological: Cranial nerves II-XII grossly intact Psych/Mental Status: Normal Affect, Appropriate, Alert and oriented to time, place, person, mood and affect Laboratory Results 10/03/20 16:20: WBC 7.3, RBC 4.47 L, Hgb 13.5, Hct 41.4, MCV 92.6, MCH 30.2, MCHC 32.6, RDW Std Deviation 45.6 H, RDW Coeff of Zackary 13.2, Plt Count 229, MPV 10.0, Immature Gran % (Auto) 0.800, Neut % (Auto) 84.6 H, Lymph % (Auto) 8.3 L, [place] % (Auto) 6.1, Eos % (Auto) 0.1, Baso % (Auto) 0.1, Absolute Neuts (auto) 6.2, Absolute Lymphs (auto) 0.61 L, Nucleated RBC % 0 10/03/20 16:20: Sodium 141, Potassium 3.2 L, Chloride 109 H, Carbon Dioxide 26.0, Anion Gap 6, BUN 15, Creatinine 1.08, Estim Creat Clear Calc 56.30, Est GFR (MDRD) Af Amer 86, Est GFR (MDRD) Non-Af 71, BUN/Creatinine Ratio 13.9, Glucose 124 H, Calcium 8.8, Total Bilirubin 0.50, AST 34, ALT 40, Alkaline Phosphatase 64, Troponin I < 0.015, Total Protein 7.9, Albumin 3.1 L, Globulin 4.8 H, Albumin/Globulin Ratio 0.6 L 10/03/20 16:20: Lactic Acid 1.4 10/03/20 16:20: B-Natriuretic Peptide 94.9 Assessment/Plan All Active Problems (Last Reviewed 07/25/20 @ 11:17 by Anai Capellan PA, PA) COVID-19 (Acute) Atrial fibrillation with RVR (Acute) Acute respiratory failure with hypoxia (Acute) H/O oral surgery (Resolved) History of left cataract surgery (Resolved) TIA (transient ischemic attack) (Acute 01/09/19) Left-sided weakness (Acute) Leg edema (Acute) Edema (Acute) 1. Acute hypoxic respiratory failure 2/2 Covid 19 - BL pna on CXR. Pt already on eliquis for PE. BNP neg. Trop neg. No leukocytosis. Fever 101. Lactate neg. Replace K check mag. Pt on 6lpm o2 - baseline 0. Continue decadron , remdesevir, aerosols. 2. Afib RVR - chronic afib - likely worse due to above. continue cardizem and metoprolol. Last Echo 07/16/20 EF 65%, PASP 38 mmHg. Moderate . 3. BPH - flomax 4. HLD - statin 5. Hx PEs - eliquis continued This patient was seen by Yannick De Santiago PA-C under the supervision of Doctor Benson. 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 complex partial seizure. Hyperlipidemia (Chronic) E78.5 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) J44.9 (FEV1 80-100%) Emphysema of lung (Chronic) J43.9 NOAM (obstructive sleep apnea) (Chronic) G47.33 Solitary pulmonary nodule (Chronic) R91.1 Persistent atrial fibrillation (Chronic) I48.1 Nonrheumatic aortic (valve) stenosis (Chronic) I35.0 Nonrheumatic tricuspid (valve) insufficiency (Chronic) I36.1 Other secondary pulmonary hypertension (Chronic) I27.29 Fever (Chronic) R50.9 Atrial fibrillation (Chronic) I48.91 Bilateral pulmonary embolism (Chronic) I26.99 Hypertension (Chronic) I10 Allergies lisinopril Adverse Reaction (Intermediate, Verified 07/25/20 10:51) cough Surgical History: Surgical History (Last Reviewed 07/25/20 @ 11:17 by Anai CHAMBERS, PA) H/O oral surgery (Resolved) Z98.890 2011 History of left cataract surgery (Resolved) Z98.42 2015 - *Family History Maternal Family History: Family History (Last Reviewed 10/03/20 @ 18:40 by Yannick CHAMBERS PA) Mother CVA (cerebral vascular accident) Diabetes Other Family history of CVA Paternal Family History: Family History (Last Reviewed 10/03/20 @ 18:40 by Yannick CHAMBERS PA) Mother CVA (cerebral vascular accident) Diabetes Other Family history of CVA - Physical Exam Vitals/I&O's: Vital Signs Temp Pulse Resp BP Pulse Ox 97.4 F L 115 H 28 H 121/78 H 92 10/03/20 21:30 10/03/20 21:30 10/03/20 21:30 10/03/20 21:30 10/03/20 21:30 Oxygen Flow Rate (L/min) 12 Oxygen Delivery Method Nasal Cannula Weight: 108.862 kg Body Mass Index (BMI) 36.5 Finger Stick Blood Glucose 164 Laboratory Results 10/03/20 16:20: WBC 7.3, RBC 4.47 L, Hgb 13.5, Hct 41.4, MCV 92.6, MCH 30.2, MCHC 32.6, RDW Std Deviation 45.6 H, RDW Coeff of Zackary 13.2, Plt Count 229, MPV 10.0, Immature Gran % (Auto) 0.800, Neut % (Auto) 84.6 H, Lymph % (Auto) 8.3 L, [place] % (Auto) 6.1, Eos % (Auto) 0.1, Baso % (Auto) 0.1, Absolute Neuts (auto) 6.2, Absolute Lymphs (auto) 0.61 L, Nucleated RBC % 0 10/03/20 16:20: Sodium 141, Potassium 3.2 L, Chloride 109 H, Carbon Dioxide 26.0, Anion Gap 6, BUN 15, Creatinine 1.08, Estim Creat Clear Calc 56.30, Est GFR (MDRD) Af Amer 86, Est GFR (MDRD) Non-Af 71, BUN/Creatinine Ratio 13.9, Glucose 124 H, Calcium 8.8, Total Bilirubin 0.50, AST 34, ALT 40, Alkaline Phosphatase 64, Troponin I < 0.015, Total Protein 7.9, Albumin 3.1 L, Globulin 4.8 H, Albumin/Globulin Ratio 0.6 L 10/03/20 16:20: Lactic Acid 1.4 10/03/20 16:20: B-Natriuretic Peptide 94.9 10/03/20 16:20: Magnesium 1.9 Current Medications Acetaminophen (Acetaminophen 325 Mg Tablet) 650 mg PO Q6H PRN PRN PRN Reason: Pain Score 1-10/Temp > 100.7 F Al Hydroxide/Mg Hydroxide (Mag Hydrox/Al Hydrox/Simeth 30 Ml Udc) 30 ml PO Q6H PRN PRN PRN Reason: Gastric Burning Atorvastatin Calcium (Atorvastatin Calcium 10 Mg Tablet) 10 mg PO QHS [facility] Last Admin: 10/03/20 21:24 Dose: 10 mg Documented by: Diltiazem HCl (Diltiazem Cd 180 Mg Capsule) 180 mg PO DAILY [facility] Finasteride (Finasteride 5 Mg Tablet) 5 mg PO DAILY [facility] Furosemide (Furosemide 40 Mg/4 Ml Vial) 40 mg IV X1 ONE Stop: 10/03/20 21:36 Magnesium Sulfate 2 gm/ Sodium (Chloride) 104 mls @ 52 mls/hr IV X1 ONE Stop: 10/03/20 22:10 Last Admin: 10/03/20 21:16 Dose: 52 mls/hr Documented by: Metoprolol Tartrate (Metoprolol Tartrate 50 Mg Tablet) 100 mg PO BID [facility] Morphine Sulfate (Morphine 2 Mg/Ml Syringe) 2 mg IV Q3H PRN PRN PRN Reason: Pain Score 6-10 Nitroglycerin (Nitroglycerin (Inpatient Use) 0.4 Mg Tab.Subl) 0.4 mg SUBLINGUAL Q5M PRN PRN Reason: CARDIAC/CHEST PAIN Ondansetron HCl (Ondansetron 4 Mg/2 Ml Vial) 4 mg IV Q8H PRN PRN PRN Reason: NAUSEA/VOMITING Oxycodone HCl (Oxycodone 5 Mg Tablet) 5 mg PO Q4H PRN PRN PRN Reason: Pain Score 4-5 Sodium Chloride (0.9% Saline Lock 10 Ml Syringe) 10 - 40 ml IV UD PRN PRN Reason: SALINE FLUSH Tamsulosin HCl (Tamsulosin Hcl 0.4 Mg Capsule) 0.8 mg PO DAILY@0830 [facility] Assessment/Plan This patient was seen in conjunction with TRISH Smith. I have independently interviewed and examined the patient and reviewed pertinent historical, laboratory, and other data. Please refer to TRISH Smith note for his patient's presentation, findings, and recommendations. I have reviewed and his note and concur with his documentation 75-year-old male with past medical history of COPD, not on oxygen, persistent atrial fibrillation, history of PE on Eliquis who comes in with worsening hypoxia. Patient stated that he was diagnosed with Covid 8 days ago in [facility]. He started having symptoms 2 days prior to his diagnosis. He had generalized ache, fatigue, chills and cough. He did not lose his sense of smell or taste. Today, his SPO2 was persistently in the 70s. He called his window glazier helper who asked him to come to the emergency department. In the ED, he was saturating 77% on room air. His heart rate was elevated at 126, EKG showed A. fib with RVR. Temperature was 101.0F, blood pressure was uncontrolled. His CBC was unremarkable. CMP was significant for potassium of 3.2, magnesium 1.9. Patient was given his Cardizem early. At the time of being seen, patient stated that he felt better. Denied any chest pain or dizziness or palpitations. Heart rate was improving at time of being seen Physical Exam: Gen: Appeared comfortable, obese, not pale, not jaundiced CVS:HS I +II, regular, no murmurs RESP: Diminished at lung bases, scattered wheezes GI: BS present and normal, soft, nontender, no palpable organs EXT: Bilateral trace to +1 pedal edema ASSESSMENT: 1. Acute hypoxic respiratory failure secondary to COVID-19 pneumonia 2. Acute COVID-19 pneumonia 3. A. fib with RVR 4. Hypokalemia 5. Hypomagnesemia 6. BPH 7. Hyperlipidemia 8. History of PE 9. Code status -DNR CCA Plan: Stop IV fluids; check BNPep stat Trial of Lasix 40 mg IV x1 Replace potassium and magnesium P.o. Decadron Remdesivir Pulmonology consult Continue with breathing treatments Repeat blood work in a.m. I discussed and explained in details the various types of CODE STATUS-full code, DNR CCA, DNR CC. Patient chose DNR CCA. He does not want to be kept on artificial life support in the event of a cardiopulmonary arrest. Time spent discussing CODE STATUS 16 minutes Inpatient E&M: 56888 Init Hosp L3 Procedures: 20141 Advncd Care Plan 30 Min
[2020-10-03] MEDS: dilTIAZem CD 180 MG Capsule PO (18:36)
--- NOTE | 2020-10-03 19:29 | PCS.PANDOC ---
PANDEMIC DOCUMENTATION INITIATED: Date: 10/03/2020 Time: 1919
[2020-10-03 19:37] LABS: Magnesium 1.9 mg/dL (1.6-2.6)
[2020-10-03] MEDS: 0.9% Normal Saline 1,000 ML 125 ML IV (19:39)
[2020-10-03] MEDS: Atorvastatin Calcium 10 MG Tablet PO (21:24)
[2020-10-03] MEDS: Metoprolol Tartrate 50 MG Tablet PO ×2 (21:24→23:29)
[2020-10-03] MEDS: Furosemide 40 MG/4 ML Vial IV (23:30)
[2020-10-03] MEDS: APIXABAN 5 MG TABLET PO (23:32)
[2020-10-03] MEDS: 0.9% Saline Lock 10 ML Syringe IV (23:33)
[2020-10-03] MEDS: INHALER, ASSIST DEVICES 1 EACH SPACER INHALATION (23:35)
[2020-10-04] VITALS (41 sets, daily range): BP systolic 99–143; BP diastolic 58–100; PULSE 75–126; RESP 18–33; TEMP 36.2–37.1; O2SAT 83–96
[2020-10-04 05:27] LABS: Absolute Neutrophil Count 3.7 X10^3/uL (2.0-7.7); Basophil# 0.01 X10^3/uL; Basophil% 0.2 % (0-1); Hemoglobin 12.4 g/dL (13.0-16.5); Lymphocyte % 11.1 % (19-41); Mean Corp Hgb Conc 32.6 g/dL (32-36); Mean Corpuscular Hgb 30.3 pg (27.0-32.0); Mean Corpuscular Volume 92.9 fL (80-94); Mean Platelet Vol. 9.8 fl (6.2-12.0); Monocyte% 6.7 % (0-10); NRBC Flagged by Analyzer 0 % (0-5); Neutrophil # 3.65 X10^3/uL (2.7-7.7); Neutrophil % 81.1 % (47-70); POSITIVE DIFFERENTIAL YES; Platelet Count 232 K/mm3 (150-450); RBC Distribution Width CV 13.3 % (11.6-14.6); RBC Distribution Width SD 45.6 fl (35.1-43.9); Red Blood Count 4.09 M/mm3 (4.6-6.2); White Blood Count 4.5 K/mm3 (4.4-11.0)
[2020-10-04 05:30] LABS: Differential Indicated SCAN CRITERIA MET
[2020-10-04 05:53] LABS: ALB/GLOB Ratio 0.7 RATIO (0.9-2.4); AST(SGOT) 27 U/L (15-37); Alanine Aminotransfer ALT/SGPT 38 U/L (16-61); Albumin, Serum 2.8 g/dL (3.2-5.0); Alkaline Phosphatase 59 U/L (45-117); Anion Gap 8 (5-15); BUN 16 mg/dL (7-18); BUN/Creat Ratio 16.3 RATIO (10-20); Calcium,Total 7.9 mg/dL (8.5-10.1); Chloride 106 mmol/L (98-107); Creatinine, Serum 0.98 mg/dL (0.70-1.30); EST Glomerular Filtration Rate 79 mL/min (>60); Est Glom Filt Rate - Afr Amer 96 mL/min (>60); Estimated Creatinine Clearance 62.04 ml/min; Globulin 3.9 g/dL (2.2-4.2); Glucose 152 mg/dL (74-106); Potassium 3.6 mmol/L (3.5-5.1); Protein, Total 6.7 g/dL (6.4-8.2); Sodium Level 140 mmol/L (136-145)
--- NOTE | 2020-10-04 07:50 | CON.PCM_ITS ---
Problem List (1) COVID-19 Status: Acute (2) Atrial fibrillation with RVR Status: Acute (3) Acute respiratory failure with hypoxia Status: Acute (4) BPH (benign prostatic hyperplasia) Status: Chronic (5) H/O oral surgery Status: Resolved Comment: 2011 (6) History of left cataract surgery Status: Resolved Comment: 2015 (7) Hyperlipidemia Status: Chronic Qualifiers: Hyperlipidemia type: unspecified Qualified Code(s): E78.5 - Hyperlipidemia, unspecified (8) Stage 1 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 Status: Chronic Comment: (FEV1 80-100%) (9) NOAM (obstructive sleep apnea) Status: Chronic (10) Solitary pulmonary nodule Status: Chronic (11) Persistent atrial fibrillation Status: Chronic (12) Other secondary pulmonary hypertension Status: Chronic (13) PAH (pulmonary artery hypertension) Status: Chronic (14) Hypertension Status: Chronic Qualifiers: Hypertension type: essential hypertension Qualified Code(s): I10 - Essential (primary) hypertension Reason for Consult Date of Consultation: 10/04/20 Reason for Consultation: Hypoxic respiratory failure History of Present Illness: The patient is a 75 year old M, with past medical history listed below and well- known to me from the outpatient office, who presented to [facility] on 10/03/2020 secondary to progressive shortness of breath. Patient had tested positive for COVID-19 approximately a week ago and reports symptoms started 10 days ago. Patient reportedly had taken his for testing 3 days prior and she had tested positive. Patient had reported some mild shortness of breath and scant cough. Patient also had some malaise and nausea. Patient reported that he got a pulse oximeter and was noted to be 76% on room air. Patient called our office and was directed to the emergency department. Patient is not currently using supplemental oxygen at baseline. Patient reportedly has been compliant with his baseline medications and denies any bleeding complications. In the ER, patient required high flow oxygen to maintain saturations. Patient was febrile at 101 ?F and tachycardic at 126 bpm. Physical exam was reportedly relatively normal per ED physician. Chest x-ray had shown bilateral infiltrates, but patient did not have any leukocytosis. Chemistry work-up was significant for hypokalemia 3.2, but lactate was 1.4, normal renal function and LFTs. BNP was 94.9. Patient was placed on supplemental oxygen, given IV Decadron and admitted to the hospital for further evaluation. Since being admitted, patient has been transitioned to Airvo to maintain saturations requiring 65% FiO2. Patient states he feels subjectively improved since being hospitalized. Patient denies any current chest pain, nominal pain, nausea or vomiting. Patient is not having any production with his cough. Patient states that he has not had any significant difficulty in eating or GI symptoms. Patient has noted some increased lower extremity edema over the last 3 to 4 days despite taking his baseline Lasix therapy. Patient has been compliant with his apixaban and denies any bleeding complications. Review of systems otherwise negative from a constitutional, HEENT, respiratory, cardiovascular, GI, genitourinary, musculoskeletal, skin, neurologic, psychiatric and hematologic system unless stated above. Past Medical History Past Medical History (Chronic Problems): Chronic Problems (Last Reviewed 07/25/20 @ 11:17 by Anai CHAMBERS, PA) BPH (benign prostatic hyperplasia) (Chronic) Hyperlipidemia (Chronic) 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) (FEV1 80-100%) Emphysema of lung (Chronic) NOAM (obstructive sleep apnea) (Chronic) Solitary pulmonary nodule (Chronic) Persistent atrial fibrillation (Chronic) Nonrheumatic aortic (valve) stenosis (Chronic) Nonrheumatic tricuspid (valve) insufficiency (Chronic) Other secondary pulmonary hypertension (Chronic) Abnormal electrocardiogram (Chronic) halfway use of drug (Chronic) Antihyperlipidemic PAH (pulmonary artery hypertension) (Chronic) Fever (Chronic) Atrial fibrillation (Chronic) Bilateral pulmonary embolism (Chronic) Hypertension (Chronic) Medical History: Medical History (Last Reviewed 07/25/20 @ 11:17 by Anai CHAMBERS, PA) BPH (benign prostatic hyperplasia) (Chronic) N40.0 Left-sided weakness (Acute) R53.1 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 complex partial seizure. Hyperlipidemia (Chronic) E78.5 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) J44.9 (FEV1 80-100%) Emphysema of lung (Chronic) J43.9 NOAM (obstructive sleep apnea) (Chronic) G47.33 Solitary pulmonary nodule (Chronic) R91.1 Persistent atrial fibrillation (Chronic) I48.1 Nonrheumatic aortic (valve) stenosis (Chronic) I35.0 Nonrheumatic tricuspid (valve) insufficiency (Chronic) I36.1 Other secondary pulmonary hypertension (Chronic) I27.29 Fever (Chronic) R50.9 Atrial fibrillation (Chronic) I48.91 Bilateral pulmonary embolism (Chronic) I26.99 Hypertension (Chronic) I10 Allergies lisinopril Adverse Reaction (Intermediate, Verified 07/25/20 10:51) cough Home Medications: Ambulatory Orders Medication Instructions Recorded Finasteride [Proscar] 5 mg PO DAILY 09/24/15 tamsulosin 0.4 mg capsule 0.8 mg PO DAILY cap 02/28/18 diltiazem HCl 180 mg 180 mg PO DAILY #90 cap 08/25/19 capsule,extended release 24 hr atorvastatin 10 mg tablet 10 mg PO QHS #90 tab 10/30/19 metoprolol tartrate 50 mg tablet 50 mg PO BID #180 tab 10/30/19 furosemide 40 mg tablet 40 mg PO DAILY #90 tab 03/12/20 apixaban 5 mg tablet 5 mg PO BID #180 tab 09/19/20 Surgical History: Surgical History (Last Reviewed 07/25/20 @ 11:17 by Anai CHAMBERS, PA) H/O oral surgery (Resolved) Z98.890 2011 History of left cataract surgery (Resolved) Z98.42 2015 Surgical History: cataract - Status post left cataract surgery, - - Status post oral surgery, status post stent Psychiatric History: No pertinent psych hx Lives: Spouse/ Significant Other Smoking Status: Former smoker Tobacco Use: Non-smoker Alcohol: None Drugs: None - *Family History Maternal Family History: Family History (Last Reviewed 10/03/20 @ 18:40 by Yannick CHAMBERS PA) Mother CVA (cerebral vascular accident) Diabetes Other Family history of CVA History Items: Stroke Paternal Family History: Family History (Last Reviewed 10/03/20 @ 18:40 by TRISH Mcfarland) Mother CVA (cerebral vascular accident) Diabetes Other Family history of CVA History Items: Diabetes Patient Problems: Active and Suspected Problems (Last Reviewed 07/25/20 @ 11:17 by Anai CHAMBERS, PA) COVID-19 (Acute) Atrial fibrillation with RVR (Acute) Acute respiratory failure with hypoxia (Acute) Objective: All imaging was personally reviewed. Agree with formal interpretation. Bilateral infiltrates noted on chest x-ray. Last pulmonary function test was in August 2019 showing a mild mixed ventilatory defect with a disproportionate reduction in diffusing capacity (FVC 83%, FEV1 78%, TLC 79%, DLCO 62%). Patient did have an echocardiogram completed in July 2020 showing an EF of 65% with a pulmonary artery pressure of 38 mmHg and a peak aortic gradient of 48 mmHg indicating moderate stenosis. - Physical Exam Vitals/I&O's: Vital Signs Temp Pulse Resp BP Pulse Ox 36.6 C 92 22 H 121/73 H 96 10/04/20 06:00 10/04/20 06:00 10/04/20 06:00 10/04/20 06:00 10/04/20 06:00 Oxygen Flow Rate (L/min) 13 Oxygen Delivery Method Airvo Weight: 110.1 kg Body Mass Index (BMI) 36.5 Finger Stick Blood Glucose 164 Intake and Output for Last 24 Hours 10/02/20 10/03/20 10/04/20 23:59 23:59 23:59 Intake Total 631.5 / 631.5 730 / 730 Output Total 200 / 200 1200 / 1200 Balance 431.5 / 431.5 -470 / -470 General: Alert, Oriented x3, Cooperative, - - Mild conversational dyspnea. Obese. HEENT: Atraumatic, PERRLA, EOMI, Normocephalic, - - No scleral icterus or injection noted Oral: Moist Mucosa, No Gingival or Mucosal Lesions/ Ulcerations Neck: Supple, No JVD, No Nodes, Trachea Midline Lungs: No rhonchi, No wheeze, No rales, Diminished Cardiovascular: Normal S1, Normal S2, No murmurs, Irregular Rate, No rub noted, No Gallop, Tachycardic Abdomen: Bowel Sounds Present, Soft, Non Tender, Non-Distended, Obese Extremities: No clubbing, No cyanosis, Edema - 1+ bilateral lower extremities Skin: No rashes, No breakdown Musculoskeletal: No Tenderness to Palpation of Joints or Extremities Lymphatic: No Cervical, Supraclavicular, or Inguinal Adenopathy Neurological: Cranial nerves II-XII grossly intact, Neuro grossly intact, Motor Exam 5/5 strength throughout Psych/Mental Status: Alert and oriented to time, place, person, mood and affect Laboratory Results 10/03/20 16:20: WBC 7.3, RBC 4.47 L, Hgb 13.5, Hct 41.4, MCV 92.6, MCH 30.2, MCHC 32.6, RDW Std Deviation 45.6 H, RDW Coeff of Zackary 13.2, Plt Count 229, MPV 10.0, Immature Gran % (Auto) 0.800, Neut % (Auto) 84.6 H, Lymph % (Auto) 8.3 L, [place] % (Auto) 6.1, Eos % (Auto) 0.1, Baso % (Auto) 0.1, Absolute Neuts (auto) 6.2, Absolute Lymphs (auto) 0.61 L, Nucleated RBC % 0 10/03/20 16:20: Sodium 141, Potassium 3.2 L, Chloride 109 H, Carbon Dioxide 26.0, Anion Gap 6, BUN 15, Creatinine 1.08, Estim Creat Clear Calc 56.30, Est GFR (MDRD) Af Amer 86, Est GFR (MDRD) Non-Af 71, BUN/Creatinine Ratio 13.9, Glucose 124 H, Calcium 8.8, Total Bilirubin 0.50, AST 34, ALT 40, Alkaline Phosphatase 64, Troponin I < 0.015, Total Protein 7.9, Albumin 3.1 L, Globulin 4.8 H, Albumin/Globulin Ratio 0.6 L 10/03/20 16:20: Lactic Acid 1.4 10/03/20 16:20: B-Natriuretic Peptide 94.9 10/03/20 16:20: Magnesium 1.9 10/04/20 05:12: WBC 4.5, RBC 4.09 L, Hgb 12.4 L, Hct 38.0 L, MCV 92.9, MCH 30.3, MCHC 32.6, RDW Std Deviation 45.6 H, RDW Coeff of Zackary 13.3, Plt Count 232, MPV 9.8, Immature Gran % (Auto) 0.900, Neut % (Auto) 81.1 H, Lymph % (Auto) 11.1 L, [place] % (Auto) 6.7, Eos % (Auto) 0.0, Baso % (Auto) 0.2, Absolute Neuts (auto) 3.7, Absolute Lymphs (auto) 0.50 L, Nucleated RBC % 0 10/04/20 05:12: Sodium 140, Potassium 3.6, Chloride 106, Carbon Dioxide 26.0, Anion Gap 8, BUN 16, Creatinine 0.98, Estim Creat Clear Calc 62.04, Est GFR (MDRD) Af Amer 96, Est GFR (MDRD) Non-Af 79, BUN/Creatinine Ratio 16.3, Glucose 152 H, Calcium 7.9 L, Total Bilirubin 0.40, AST 27, ALT 38, Alkaline Phosphatase 59, Total Protein 6.7, Albumin 2.8 L, Globulin 3.9, Albumin/Globulin Ratio 0.7 L Current Medications Acetaminophen (Acetaminophen 325 Mg Tablet) 650 mg PO Q6H PRN PRN PRN Reason: Pain Score 1-10/Temp > 100.7 F Al Hydroxide/Mg Hydroxide (Mag Hydrox/Al Hydrox/Simeth 30 Ml Udc) 30 ml PO Q6H PRN PRN PRN Reason: Gastric Burning Albuterol Sulfate (Albuterol Ih 8.5 Gm (Proair) Inhaler (200 Puffs)) 2 puff INHALATION Q4H [facility] Last Admin: 10/04/20 06:30 Dose: 2 puff Documented by: Apixaban (Apixaban 5 Mg Tablet) 5 mg PO BID [facility] Last Admin: 10/03/20 23:32 Dose: 5 mg Documented by: Atorvastatin Calcium (Atorvastatin Calcium 10 Mg Tablet) 10 mg PO QHS [facility] Last Admin: 10/03/20 21:24 Dose: 10 mg Documented by: Dexamethasone (Dexamethasone 2 Mg Tablet) 6 mg PO DAILY [facility] Diltiazem HCl (Diltiazem Cd 180 Mg Capsule) 180 mg PO DAILY [facility] Finasteride (Finasteride 5 Mg Tablet) 5 mg PO DAILY [facility] Remdesivir 100 mg/ Sodium (Chloride) 250 mls @ 125 mls/hr IV DAILY@2200 [facility] Stop: 10/07/20 23:59 Metoprolol Tartrate (Metoprolol Tartrate 100 Mg Tablet) 100 mg PO BID [facility] Miscellaneous Information (Inhaler, Assist Devices 1 Each Spacer) 1 each INHALATION PRN PRN PRN Reason: WITH ALBUTEROL INHALER Last Admin: 10/03/20 23:35 Dose: 1 each Documented by: Nitroglycerin (Nitroglycerin (Inpatient Use) 0.4 Mg Tab.Subl) 0.4 mg SUBLINGUAL Q5M PRN PRN Reason: CARDIAC/CHEST PAIN Ondansetron HCl (Ondansetron 4 Mg/2 Ml Vial) 4 mg IV Q8H PRN PRN PRN Reason: NAUSEA/VOMITING Sodium Chloride (0.9% Saline Lock 10 Ml Syringe) 10 - 40 ml IV UD PRN PRN Reason: SALINE FLUSH Last Admin: 10/03/20 23:33 Dose: 10 ml Documented by: Tamsulosin HCl (Tamsulosin Hcl 0.4 Mg Capsule) 0.8 mg PO DAILY@0830 [facility] Clinical Impression(s) from Imaging Studies Chest X-Ray 10/03/20 16:35 IMPRESSION: Bilateral pneumonia. Electronically Signed: Andrea Anthony MD at 17:29 EST Tel , Service support , Assessment/Plan All Active Problems (Last Reviewed 07/25/20 @ 11:17 by Anai CHAMBERS, PA) COVID-19 (Acute) Atrial fibrillation with RVR (Acute) Acute respiratory failure with hypoxia (Acute) H/O oral surgery (Resolved) History of left cataract surgery (Resolved) TIA (transient ischemic attack) (Acute 01/09/19) Left-sided weakness (Acute) Leg edema (Acute) Edema (Acute) RECOMMENDATIONS: 1. Hold on IV fluids 2. Likely okay to initiate baseline diuretic therapy 3. Supplemental oxygen to keep sats greater than 90% at all times 4. Agree with Decadron and remdesivir therapy 5. Continue baseline full anticoagulation 6. Continue baseline rate control IMPRESSIONS: 1. Acute hypoxic respiratory failure secondary to COVID-19 pneumonia/COPD exacerbation Patient was significantly hypoxic on presentation with bilateral infiltrates and COVID-19 positive testing. Patient is appropriately on Decadron and remdesivir therapy. Continue supplemental oxygen as necessary to maintain saturations greater than 90%. Patient is clear that he is willing to do anything to survive including intubation. Clinical suspicion for an element of cor pulmonale secondary to protracted hypoxia in the setting of type II/III pulmonary hypertension. Likely okay to use aerosols as needed given concomitant A. fib with RVR. 2. A. fib with RVR/cor pulmonale Clinical suspicion for an element of elevated rate and lower extremity edema secondary to protracted hypoxia associated with problem #1. Patient will likely improve with control of hypoxia. Okay to continue with baseline diuretic therapy, but would not be overly aggressive. Continue with baseline rate control medications. Blood pressure is adequate at this time. Patient did not have significant systolic dysfunction on previous echo. Low clinical suspicion for PE given patient's chronic anticoagulation. 3. BPH/hyperlipidemia/advanced age/obesity Complicates care, management, recovery and prognosis. Extensive conversation with patient about goals of therapy. Patient states he is willing to do anything to live. Patient has relatively mild COPD and has a reasonable chance of coming off of ventilator if necessary. Patient's CODE STATUS will be changed to a full code. A total of 18 minutes was spent discussing goals of therapy. Inpatient E&M: 16584 Init Hosp L3 Procedures: 90938 Advncd Care Plan 30 Min
[2020-10-04] MEDS: Metoprolol Tartrate 100 MG Tablet PO ×2 (08:31→20:01)
[2020-10-04] MEDS: dilTIAZem CD 180 MG Capsule PO (08:32)
[2020-10-04] MEDS: dexAMETHasone 2 MG TABLET 6 MG PO (08:32)
[2020-10-04] MEDS: APIXABAN 5 MG TABLET PO ×2 (08:32→20:00)
[2020-10-04] MEDS: Finasteride 5 MG Tablet PO (08:32)
--- NOTE | 2020-10-04 12:35 | CASEMGMT ---
RN CM Assessment Note Introduced role of CM to patient's . Attempted to call patient, but he is on airvo and unable to participate. Demographics, PCP verified. states pt has been tested for home oxygen and cpap in past, but has not qualified. COVID TEST: @ [facility] Diagnosis: COVID 19 with history of COPD PCP: Dr. Hernandez Specialists: Dr. Russell, pulmonology; Dr. Salmeron, cardiology; Urologist @ [facility], [place] Insurance: [facility] Benef[facility]: yes LNOK: , Sarah Marrero Living Arrangements: Lives in one story home, a few steps into home. Per , pt is independent with ADL and is able to assist if needed. states that the patient does not use ambulatory DME at home. Tranportation: drives DME: cane, walker- does not use; List of area oxygen suppliers reviewed with via phone. If home oxygen is needed- prefers [facility] [place]-is aware of hospital affiliation. HHC: no SNF: no Patient DC Goals: Home DC Plan: anticipate home on dc. Will need home oxygen testing @ rest and with activity prior to discharge. CM available for discharge planning coordination. Contact CM for any concerns/needs that may arise. Kesha LOVE RN ACM
--- NOTE | 2020-10-04 14:18 | PN_ITS ---
Patient Problems: Active and Suspected Problems (Last Reviewed 07/25/20 @ 11:17 by Anai Capellan PA, PA) COVID-19 (Acute) Atrial fibrillation with RVR (Acute) Acute respiratory failure with hypoxia (Acute) Reason for Visit: COVID 19 Subjective: Breathing well on Airvo. Vitals/I&O's: Vital Signs Temp Pulse Resp BP Pulse Ox 36.8 C 97 28 H 129/70 H 89 10/04/20 08:00 10/04/20 14:00 10/04/20 14:00 10/04/20 14:00 10/04/20 14:00 Oxygen Flow Rate (L/min) 57 Oxygen Delivery Method Airvo Weight: 110.1 kg Body Mass Index (BMI) 36.5 Finger Stick Blood Glucose 164 Intake and Output for Last 24 Hours 10/02/20 10/03/20 10/04/20 23:59 23:59 23:59 Intake Total 631.5 / 631.5 730 / 730 Output Total 200 / 200 1575 / 1575 Balance 431.5 / 431.5 -845 / -845 General: Alert, No apparent distress HEENT: Atraumatic, Normocephalic Oral: Moist Mucosa, No Gingival or Mucosal Lesions/ Ulcerations Neck: No Nodes, Thyroid Normal Size and Texture Lungs: Clear to auscultation, Normal air movement, No rhonchi, No wheeze, No rales Cardiovascular: Regular rate, Regular Rhythm, Normal S1, Normal S2 Abdomen: Bowel Sounds Present, Soft, Non Tender, Non-Distended, No Hepato- splenomegaly Extremities: No edema, No Calf Tenderness Psych/Mental Status: Normal Affect, Appropriate Laboratory Results 10/03/20 16:20: WBC 7.3, RBC 4.47 L, Hgb 13.5, Hct 41.4, MCV 92.6, MCH 30.2, MCHC 32.6, RDW Std Deviation 45.6 H, RDW Coeff of Zackary 13.2, Plt Count 229, MPV 10.0, Immature Gran % (Auto) 0.800, Neut % (Auto) 84.6 H, Lymph % (Auto) 8.3 L, [place] % (Auto) 6.1, Eos % (Auto) 0.1, Baso % (Auto) 0.1, Absolute Neuts (auto) 6.2, Absolute Lymphs (auto) 0.61 L, Nucleated RBC % 0 10/03/20 16:20: Sodium 141, Potassium 3.2 L, Chloride 109 H, Carbon Dioxide 26.0 , Anion Gap 6, BUN 15, Creatinine 1.08, Estim Creat Clear Calc 56.30, Est GFR (MDRD) Af Amer 86, Est GFR (MDRD) Non-Af 71, BUN/Creatinine Ratio 13.9, Glucose 124 H, Calcium 8.8, Total Bilirubin 0.50, AST 34, ALT 40, Alkaline Phosphatase 64, Troponin I < 0.015, Total Protein 7.9, Albumin 3.1 L, Globulin 4.8 H, A lbumin/Globulin Ratio 0.6 L 10/03/20 16:20: Lactic Acid 1.4 10/03/20 16:20: B-Natriuretic Peptide 94.9 10/03/20 16:20: Magnesium 1.9 10/04/20 05:12: WBC 4.5, RBC 4.09 L, Hgb 12.4 L, Hct 38.0 L, MCV 92.9, MCH 30.3, MCHC 32.6, RDW Std Deviation 45.6 H, RDW Coeff of Zackary 13.3, Plt Count 232, MPV 9.8, Immature Gran % (Auto) 0.900, Neut % (Auto) 81.1 H, Lymph % (Auto) 11.1 L, [place] % (Auto) 6.7, Eos % (Auto) 0.0, Baso % (Auto) 0.2, Absolute Neuts (auto) 3.7, Absolute Lymphs (auto) 0.50 L, Nucleated RBC % 0 10/04/20 05:12: Sodium 140, Potassium 3.6, Chloride 106, Carbon Dioxide 26.0, Anion Gap 8, BUN 16, Creatinine 0.98, Estim Creat Clear Calc 62.04, Est GFR (MDRD) Af Amer 96, Est GFR (MDRD) Non-Af 79, BUN/Creatinine Ratio 16.3, Glucose 152 H, Calcium 7.9 L, Total Bilirubin 0.40, AST 27, ALT 38, Alkaline Phosphatase 59, Total Protein 6.7, Albumin 2.8 L, Globulin 3.9, Albumin/Globulin Ratio 0.7 L Current Medications Acetaminophen (Acetaminophen 325 Mg Tablet) 650 mg PO Q6H PRN PRN PRN Reason: Pain Score 1-10/Temp > 100.7 F Al Hydroxide/Mg Hydroxide (Mag Hydrox/Al Hydrox/Simeth 30 Ml Udc) 30 ml PO Q6H PRN PRN PRN Reason: Gastric Burning Albuterol Sulfate (Albuterol Ih 8.5 Gm (Proair) Inhaler (200 Puffs)) 2 puff INHALATION Q4H [facility] Last Admin: 10/04/20 08:34 Dose: 2 puff Documented by: Apixaban (Apixaban 5 Mg Tablet) 5 mg PO BID [facility] Last Admin: 10/04/20 08:32 Dose: 5 mg Documented by: Atorvastatin Calcium (Atorvastatin Calcium 10 Mg Tablet) 10 mg PO QHS [facility] Last Admin: 10/03/20 21:24 Dose: 10 mg Documented by: Dexamethasone (Dexamethasone 2 Mg Tablet) 6 mg PO DAILY [facility] Last Admin: 10/04/20 08:32 Dose: 6 mg Documented by: Diltiazem HCl (Diltiazem Cd 180 Mg Capsule) 180 mg PO DAILY [facility] Last Admin: 10/04/20 08:32 Dose: 180 mg Documented by: Finasteride (Finasteride 5 Mg Tablet) 5 mg PO DAILY [facility] Last Admin: 10/04/20 08:32 Dose: 5 mg Documented by: Remdesivir 100 mg/ Sodium (Chloride) 250 mls @ 125 mls/hr IV DAILY@2200 [facility] Stop: 10/07/20 23:59 Metoprolol Tartrate (Metoprolol Tartrate 100 Mg Tablet) 100 mg PO BID [facility] Last Admin: 10/04/20 08:31 Dose: 100 mg Documented by: Miscellaneous Information (Inhaler, Assist Devices 1 Each Spacer) 1 each INHALATION PRN PRN PRN Reason: WITH ALBUTEROL INHALER Last Admin: 10/03/20 23:35 Dose: 1 each Documented by: Nitroglycerin (Nitroglycerin (Inpatient Use) 0.4 Mg Tab.Subl) 0.4 mg SUBLINGUAL Q5M PRN PRN Reason: CARDIAC/CHEST PAIN Ondansetron HCl (Ondansetron 4 Mg/2 Ml Vial) 4 mg IV Q8H PRN PRN PRN Reason: NAUSEA/VOMITING Sodium Chloride (0.9% Saline Lock 10 Ml Syringe) 10 - 40 ml IV UD PRN PRN Reason: SALINE FLUSH Last Admin: 10/03/20 23:33 Dose: 10 ml Documented by: Tamsulosin HCl (Tamsulosin Hcl 0.4 Mg Capsule) 0.8 mg PO DAILY@2200 [facility] Vital Signs/Narrative: Vital Signs Pulse Resp BP Pulse Ox 10/04/20 14:00 97 28 H 129/70 H 89 10/04/20 13:00 91 21 H 113/65 88 10/04/20 12:00 86 23 H 124/76 H 92 10/04/20 11:11 86 10/04/20 11:06 88 33 H 117/66 91 Medical Necessity - Tobacco Use Smoking Status: Former smoker Tobacco Use: Non-smoker Assessment/Plan All Active Problems (Last Reviewed 07/25/20 @ 11:17 by Anai Capellan PA, PA) COVID-19 (Acute) Atrial fibrillation with RVR (Acute) Acute respiratory failure with hypoxia (Acute) H/O oral surgery (Resolved) History of left cataract surgery (Resolved) TIA (transient ischemic attack) (Acute 01/09/19) Left-sided weakness (Acute) Leg edema (Acute) Edema (Acute) 1. acute hypoxic respiratory failure * 2/2 COVID 19 +/- COPD exacerbation * on Airvo, wean oxygen as tolerated * pulm following 2. acute COVID 19 pneumonia * on dexa and Rem-d 3. afib w RVR * resolved * on metoprolol tartrate 100 BID and dilt 180 * anticoagulated on apixaban 4. hypokalemia: * improved * monitor 5. h/o VTE: anticoagulated 6. VTE prophylaxis: not indicated. he is anticoagulated. Inpatient E&M: 50533 Subs Hosp L2
[2020-10-04] MEDS: BENZOCAINE/MENTHOL 1 LOZENGE MUCOUS MEM (18:30)
[2020-10-04] MEDS: Tamsulosin HCl 0.4 MG Capsule 0.8 MG PO (20:00)
[2020-10-04] MEDS: Atorvastatin Calcium 10 MG Tablet PO (20:01)
[2020-10-05] VITALS (38 sets, daily range): BP systolic 90–137; BP diastolic 56–87; PULSE 70–128; RESP 12–33; TEMP 36.3–37.1; O2SAT 90–97
[2020-10-05 06:40] LABS: ALB/GLOB Ratio 0.6 RATIO (0.9-2.4); AST(SGOT) 41 U/L (15-37); Alanine Aminotransfer ALT/SGPT 47 U/L (16-61); Albumin, Serum 2.4 g/dL (3.2-5.0); Alkaline Phosphatase 48 U/L (45-117); Anion Gap 3 (5-15); BUN 27 mg/dL (7-18); Calcium,Total 8.8 mg/dL (8.5-10.1); Chloride 109 mmol/L (98-107); EST Glomerular Filtration Rate 77 mL/min (>60); Est Glom Filt Rate - Afr Amer 93 mL/min (>60); Globulin 4.2 g/dL (2.2-4.2); Glucose 130 mg/dL (74-106); Protein, Total 6.6 g/dL (6.4-8.2); Sodium Level 142 mmol/L (136-145)
--- NOTE | 2020-10-05 06:52 | PCM.PN.INT ---
Subjective: Patient with relatively no complaints, but has had increasing oxygen demands over the last 24 hours. Patient had to be placed on BiPAP this morning. Patient appears to be tolerating it well. Patient is not reporting any chest pain or abdominal pain. Patient has no sensation of the hypoxia when present. General: Alert, Oriented x3, Cooperative, No apparent distress - On BiPAP, - - Obese. HEENT: Atraumatic, PERRLA, EOMI, Normocephalic, - - No scleral icterus or injection noted Oral: Moist Mucosa, No Gingival or Mucosal Lesions/ Ulcerations Neck: Supple, No Nodes, Trachea Midline, JVD, Right Lungs: No rhonchi, No wheeze, No rales, Diminished Cardiovascular: Normal S1, Normal S2, No murmurs, Irregular Rate, No rub noted, No Gallop Abdomen: Bowel Sounds Present, Soft, Non Tender, Non-Distended, Obese Extremities: No clubbing, No cyanosis, Edema - Trace lower extremity Skin: No rashes, No breakdown Musculoskeletal: No Tenderness to Palpation of Joints or Extremities Lymphatic: No Cervical, Supraclavicular, or Inguinal Adenopathy Neurological: Cranial nerves II-XII grossly intact, Neuro grossly intact, Motor Exam 5/5 strength throughout Psych/Mental Status: Alert and oriented to time, place, person, mood and affect Vital Signs Temp Pulse Resp BP Pulse Ox 36.8 C 97 25 H 122/87 H 91 10/05/20 06:00 10/05/20 06:02 10/05/20 06:02 10/05/20 06:00 10/05/20 06:02 Oxygen Flow Rate (L/min) 60 Oxygen Delivery Method Bi-pap Weight: 109.2 kg Body Mass Index (BMI) 36.5 Finger Stick Blood Glucose 164 Intake and Output for Last 24 Hours 10/03/20 10/04/20 10/05/20 23:59 23:59 23:59 Intake Total 631.5 / 631.5 980 / 980 60 / 60 Output Total 200 / 200 1675 / 1675 500 / 500 Balance 431.5 / 431.5 -695 / -695 -440 / -440 Labs (Last 48 Hours) 10/03/20 10/03/20 10/03/20 16:20 16:20 16:20 WBC 7.3 RBC 4.47 L Hgb 13.5 Hct 41.4 MCV 92.6 MCH 30.2 MCHC 32.6 RDW Std Deviation 45.6 H RDW Coeff of Zackary 13.2 Plt Count 229 MPV 10.0 Immature Gran % (Auto) 0.800 Neut % (Auto) 84.6 H Lymph % (Auto) 8.3 L Buchanan % (Auto) 6.1 Eos % (Auto) 0.1 Baso % (Auto) 0.1 Absolute Neuts (auto) 6.2 Absolute Lymphs (auto) 0.61 L Nucleated RBC % 0 Sodium 141 Potassium 3.2 L Chloride 109 H Carbon Dioxide 26.0 Anion Gap 6 BUN 15 Creatinine 1.08 Estim Creat Clear Calc 56.30 Est GFR (MDRD) Af Amer 86 Est GFR (MDRD) Non-Af 71 BUN/Creatinine Ratio 13.9 Glucose 124 H Lactic Acid 1.4 Calcium 8.8 Magnesium Total Bilirubin 0.50 AST 34 ALT 40 Alkaline Phosphatase 64 Troponin I < 0.015 B-Natriuretic Peptide Total Protein 7.9 Albumin 3.1 L Globulin 4.8 H Albumin/Globulin Ratio 0.6 L 10/03/20 10/03/20 10/04/20 16:20 16:20 05:12 WBC 4.5 RBC 4.09 L Hgb 12.4 L Hct 38.0 L MCV 92.9 MCH 30.3 MCHC 32.6 RDW Std Deviation 45.6 H RDW Coeff of Zackary 13.3 Plt Count 232 MPV 9.8 Immature Gran % (Auto) 0.900 Neut % (Auto) 81.1 H Lymph % (Auto) 11.1 L Buchanan % (Auto) 6.7 Eos % (Auto) 0.0 Baso % (Auto) 0.2 Absolute Neuts (auto) 3.7 Absolute Lymphs (auto) 0.50 L Nucleated RBC % 0 Sodium Potassium Chloride Carbon Dioxide Anion Gap BUN Creatinine Estim Creat Clear Calc Est GFR (MDRD) Af Amer Est GFR (MDRD) Non-Af BUN/Creatinine Ratio Glucose Lactic Acid Calcium Magnesium 1.9 Total Bilirubin AST ALT Alkaline Phosphatase Troponin I B-Natriuretic Peptide 94.9 Total Protein Albumin Globulin Albumin/Globulin Ratio 10/04/20 10/05/20 05:12 05:28 WBC RBC Hgb Hct MCV MCH MCHC RDW Std Deviation RDW Coeff of Zackary Plt Count MPV Immature Gran % (Auto) Neut % (Auto) Lymph % (Auto) Buchanan % (Auto) Eos % (Auto) Baso % (Auto) Absolute Neuts (auto) Absolute Lymphs (auto) Nucleated RBC % Sodium 140 142 Potassium 3.6 4.0 Chloride 106 109 H Carbon Dioxide 26.0 30.0 Anion Gap 8 3 L BUN 16 27 H Creatinine 0.98 1.00 Estim Creat Clear Calc 62.04 60.80 Est GFR (MDRD) Af Amer 96 93 Est GFR (MDRD) Non-Af 79 77 BUN/Creatinine Ratio 16.3 27.0 H Glucose 152 H 130 H Lactic Acid Calcium 7.9 L 8.8 Magnesium Total Bilirubin 0.40 0.50 AST 27 41 H ALT 38 47 Alkaline Phosphatase 59 48 Troponin I B-Natriuretic Peptide Total Protein 6.7 6.6 Albumin 2.8 L 2.4 L Globulin 3.9 4.2 Albumin/Globulin Ratio 0.7 L 0.6 L Medical Necessity - Tobacco Use Smoking Status: Former smoker Tobacco Use: Non-smoker Assessment/Plan All Active Problems (Last Reviewed 07/25/20 @ 11:17 by Anai Capellan PA, PA) COVID-19 (Acute) Atrial fibrillation with RVR (Acute) Acute respiratory failure with hypoxia (Acute) H/O oral surgery (Resolved) History of left cataract surgery (Resolved) TIA (transient ischemic attack) (Acute 01/09/19) Left-sided weakness (Acute) Leg edema (Acute) Edema (Acute) RECOMMENDATIONS: 1. LFTs daily while on remdesivir 2. Schedule diuretic therapy 3. Supplemental oxygen to keep sats greater than 90% at all times 4. Agree with Decadron and remdesivir therapy 5. Continue baseline full anticoagulation 6. Continue baseline rate control IMPRESSIONS: 1. Acute hypoxic respiratory failure secondary to COVID-19 pneumonia/COPD exacerbation Patient was significantly hypoxic on presentation with bilateral infiltrates and COVID-19 positive testing. Patient is appropriately on Decadron and remdesivir therapy. Continue supplemental oxygen as necessary to maintain saturations greater than 90%. Patient is clear that he is willing to do anything to survive including intubation. Clinical suspicion for an element of cor pulmonale secondary to protracted hypoxia in the setting of type II/III pulmonary hypertension. We will reinitiate baseline diuretic therapy. Patient will need LFTs for safety monitoring while on remdesivir. Patient transition to AVAPS to help with recruitment and oxygenation. Patient appears to be responding well. 2. A. fib with RVR/cor pulmonale Clinical suspicion for an element of elevated rate and lower extremity edema secondary to protracted hypoxia associated with problem #1. Patient with progressive hypoxia. We will reinitiate diuretic therapy. Rate is better controlled today. Continue with baseline rate control medications. Blood pressure is adequate at this time. Patient did not have significant systolic dysfunction on previous echo. Low clinical suspicion for PE given patient's chronic anticoagulation. 3. BPH/hyperlipidemia/advanced age/obesity Complicates care, management, recovery and prognosis. Extensive conversation with patient about goals of therapy. Patient states he is willing to do anything to live. Patient has relatively mild COPD and has a reasonable chance of coming off of ventilator if necessary. However, given progression of hypoxia, intubation may be necessary during hospitalization. Inpatient E&M: [id number] [facility] L3
[2020-10-05] MEDS: Furosemide 20 MG/2 ML VIAL IV (08:18)
[2020-10-05] MEDS: APIXABAN 5 MG TABLET PO ×2 (08:18→19:42)
[2020-10-05] MEDS: dexAMETHasone 2 MG TABLET 6 MG PO (08:18)
[2020-10-05] MEDS: Metoprolol Tartrate 100 MG Tablet PO ×2 (08:19→19:43)
[2020-10-05] MEDS: Finasteride 5 MG Tablet PO (08:20)
[2020-10-05] MEDS: 0.9% Saline Lock 10 ML Syringe IV ×2 (08:28→19:56)
--- NOTE | 2020-10-05 12:36 | PN_ITS ---
Patient Problems: Active and Suspected Problems (Last Reviewed 07/25/20 @ 11:17 by Anai Capellan PA, PA) COVID-19 (Acute) Atrial fibrillation with RVR (Acute) Acute respiratory failure with hypoxia (Acute) Reason for Visit: COVID 19 Subjective: Breathing well on Airvo. Put on BiPAP last night and tolerated it well. Vitals/I&O's: Vital Signs Temp Pulse Resp BP Pulse Ox 36.4 C L 98 20 H 107/72 90 10/05/20 12:00 10/05/20 12:00 10/05/20 12:00 10/05/20 12:00 10/05/20 12:00 Oxygen Flow Rate (L/min) 60 Oxygen Delivery Method Airvo Weight: 109.2 kg Body Mass Index (BMI) 36.5 Finger Stick Blood Glucose 164 Intake and Output for Last 24 Hours 10/03/20 10/04/20 10/05/20 23:59 23:59 23:59 Intake Total 631.5 / 631.5 980 / 980 60 / 60 Output Total 200 / 200 1675 / 1675 500 / 500 Balance 431.5 / 431.5 -695 / -695 -440 / -440 General: Alert, No apparent distress HEENT: Atraumatic, Normocephalic Oral: Moist Mucosa, No Gingival or Mucosal Lesions/ Ulcerations Neck: No Nodes, Thyroid Normal Size and Texture Lungs: Normal air movement, - - bibasilar crackles. Cardiovascular: Regular rate, Regular Rhythm, Normal S1, Normal S2, No murmurs Abdomen: Bowel Sounds Present, Soft, Non Tender, Non-Distended, No Hepato- splenomegaly Extremities: No edema, No Calf Tenderness Skin: No rashes, No breakdown Psych/Mental Status: Normal Affect, Appropriate Laboratory Results 10/05/20 05:28: Sodium 142, Potassium 4.0, Chloride 109 H, Carbon Dioxide 30.0, Anion Gap 3 L, BUN 27 H, Creatinine 1.00, Estim Creat Clear Calc 60.80, Est GFR (MDRD) Af Amer 93, Est GFR (MDRD) Non-Af 77, BUN/Creatinine Ratio 27.0 H, Glucose 130 H, Calcium 8.8, Total Bilirubin 0.50, AST 41 H, ALT 47, Alkaline Phosphatase 48, Total Protein 6.6, Albumin 2.4 L, Globulin 4.2, Albumin/Globulin Ratio 0.6 L Current Medications Acetaminophen (Acetaminophen 325 Mg Tablet) 650 mg PO Q6H PRN PRN PRN Reason: Pain Score 1-10/Temp > 100.7 F Al Hydroxide/Mg Hydroxide (Mag Hydrox/Al Hydrox/Simeth 30 Ml Udc) 30 ml PO Q6H PRN PRN PRN Reason: Gastric Burning Albuterol Sulfate (Albuterol Ih 8.5 Gm (Proair) Inhaler (200 Puffs)) 2 puff INHALATION Q4H [facility] Last Admin: 10/05/20 08:20 Dose: 2 puff Documented by: Apixaban (Apixaban 5 Mg Tablet) 5 mg PO BID [facility] Last Admin: 10/05/20 08:18 Dose: 5 mg Documented by: Atorvastatin Calcium (Atorvastatin Calcium 10 Mg Tablet) 10 mg PO QHS [facility] Last Admin: 10/04/20 20:01 Dose: 10 mg Documented by: Dexamethasone (Dexamethasone 2 Mg Tablet) 6 mg PO DAILY [facility] Last Admin: 10/05/20 08:18 Dose: 6 mg Documented by: Diltiazem HCl (Diltiazem Cd 180 Mg Capsule) 180 mg PO DAILY [facility] Last Admin: 10/05/20 11:06 Dose: Not Given Documented by: Finasteride (Finasteride 5 Mg Tablet) 5 mg PO DAILY [facility] Last Admin: 10/05/20 08:20 Dose: 5 mg Documented by: Furosemide (Furosemide 20 Mg/2 Ml Vial) 20 mg IV DAILY [facility] Last Admin: 10/05/20 08:18 Dose: 20 mg Documented by: Remdesivir 100 mg/ Sodium (Chloride) 250 mls @ 125 mls/hr IV DAILY@2200 [facility] Stop: 10/07/20 23:59 Last Infusion: 10/04/20 22:02 Dose: Infused Documented by: Metoprolol Tartrate (Metoprolol Tartrate 100 Mg Tablet) 100 mg PO BID [facility] Last Admin: 10/05/20 08:19 Dose: 100 mg Documented by: Miscellaneous Information (Inhaler, Assist Devices 1 Each Spacer) 1 each INHALATION PRN PRN PRN Reason: WITH ALBUTEROL INHALER Last Admin: 10/03/20 23:35 Dose: 1 each Documented by: Nitroglycerin (Nitroglycerin (Inpatient Use) 0.4 Mg Tab.Subl) 0.4 mg SUBLINGUAL Q5M PRN PRN Reason: CARDIAC/CHEST PAIN Ondansetron HCl (Ondansetron 4 Mg/2 Ml Vial) 4 mg IV Q8H PRN PRN PRN Reason: NAUSEA/VOMITING Sodium Chloride (0.9% Saline Lock 10 Ml Syringe) 10 - 40 ml IV UD PRN PRN Reason: SALINE FLUSH Last Admin: 10/05/20 08:28 Dose: 10 ml Documented by: Tamsulosin HCl (Tamsulosin Hcl 0.4 Mg Capsule) 0.8 mg PO DAILY@2200 [facility] Last Admin: 10/04/20 20:00 Dose: 0.8 mg Documented by: Throat Lozenges (Benzocaine/Menthol 1 Lozenge) 1 lozenge MUCOUS MEM Q2H PRN PRN PRN Reason: SORE THROAT Last Admin: 10/04/20 18:30 Dose: 1 lozenge Documented by: STROKE Vital Signs/Narrative: Vital Signs Temp Pulse Resp BP Pulse Ox 10/05/20 12:00 36.4 C L 98 20 H 107/72 90 10/05/20 11:14 86 26 H 92 10/05/20 11:06 82 10/05/20 11:00 86 20 H 107/71 97 10/05/20 10:18 83 30 H 95 10/05/20 10:00 86 26 H 102/72 95 10/05/20 09:00 94 24 H 109/71 91 Medical Necessity - Tobacco Use Smoking Status: Former smoker Tobacco Use: Non-smoker Assessment/Plan All Active Problems (Last Reviewed 07/25/20 @ 11:17 by Anai Capellan PA, PA) COVID-19 (Acute) Atrial fibrillation with RVR (Acute) Acute respiratory failure with hypoxia (Acute) H/O oral surgery (Resolved) History of left cataract surgery (Resolved) TIA (transient ischemic attack) (Acute 01/09/19) Left-sided weakness (Acute) Leg edema (Acute) Edema (Acute) 1. acute hypoxic respiratory failure * stable * 2/2 COVID 19 +/- COPD exacerbation * on Airvo, BiPAP QHS wean oxygen as able * pulm following 2. acute COVID 19 pneumonia * on dexa and Rem-d 3. afib w RVR * resolved * on metoprolol tartrate 100 BID and dilt 180 * anticoagulated on apixaban 4. hypokalemia: * improved * monitor 5. h/o VTE: anticoagulated 6. VTE prophylaxis: not indicated. he is anticoagulated. Inpatient E&M: [id number] [facility] L2
[2020-10-05] MEDS: Tamsulosin HCl 0.4 MG Capsule 0.8 MG PO (19:43)
[2020-10-05] MEDS: Atorvastatin Calcium 10 MG Tablet PO (19:43)
[2020-10-05] MEDS: BENZOCAINE/MENTHOL 1 LOZENGE MUCOUS MEM (21:45)
[2020-10-06] VITALS (26 sets, daily range): BP systolic 97–123; BP diastolic 60–85; PULSE 78–114; RESP 12–25; TEMP 36.2–37.3; O2SAT 90–96
[2020-10-06 07:12] LABS: ALB/GLOB Ratio 0.6 RATIO (0.9-2.4); AST(SGOT) 37 U/L (15-37); Alanine Aminotransfer ALT/SGPT 55 U/L (16-61); Albumin, Serum 2.6 g/dL (3.2-5.0); Alkaline Phosphatase 53 U/L (45-117); Anion Gap 5 (5-15); BUN 36 mg/dL (7-18); BUN/Creat Ratio 36.7 RATIO (10-20); Calcium,Total 8.7 mg/dL (8.5-10.1); Chloride 111 mmol/L (98-107); Creatinine, Serum 0.98 mg/dL (0.70-1.30); EST Glomerular Filtration Rate 79 mL/min (>60); Est Glom Filt Rate - Afr Amer 95 mL/min (>60); Estimated Creatinine Clearance 62.04 ml/min; Globulin 4.3 g/dL (2.2-4.2); Glucose 122 mg/dL (74-106); Protein, Total 6.9 g/dL (6.4-8.2); Sodium Level 143 mmol/L (136-145)
--- NOTE | 2020-10-06 07:13 | PCM.PN.PUL ---
Patient Problems: Active and Suspected Problems (Last Reviewed 07/25/20 @ 11:17 by Anai Capellan PA, PA) COVID-19 (Acute) Atrial fibrillation with RVR (Acute) Acute respiratory failure with hypoxia (Acute) Subjective: Patient did okay overnight. Patient did require BiPAP with sleep, but is on Airvo with 85% FiO2 while awake. Patient continues to deny dyspnea despite high oxygen requirements. No chest pain or abdominal pain is reported. Patient reports only a mild nonproductive cough. - Physical Exam Vitals/I&O's: Vital Signs Temp Pulse Resp BP Pulse Ox 36.6 C 101 H 23 H 112/77 93 10/06/20 02:00 10/06/20 06:00 10/06/20 06:00 10/06/20 06:00 10/06/20 06:00 Oxygen Flow Rate (L/min) 60 Oxygen Delivery Method Airvo Weight: 110 kg Body Mass Index (BMI) 36.5 Finger Stick Blood Glucose 164 Intake and Output for Last 24 Hours 10/04/20 10/05/20 10/06/20 23:59 23:59 23:59 Intake Total 980 / 980 550 / 550 Output Total 1675 / 1675 1200 / 1200 250 / 250 Balance -695 / -695 -650 / -650 -250 / -250 General: Alert, Oriented x3, Cooperative, No apparent distress - On Airvo, - - Obese. No conversational dyspnea. HEENT: Atraumatic, PERRLA, EOMI, Normocephalic, - - No scleral icterus or injection noted Oral: Moist Mucosa, No Gingival or Mucosal Lesions/ Ulcerations, - - Crowded posterior pharynx Neck: Supple, No Nodes, Trachea Midline Lungs: No rhonchi, No wheeze, No rales, Diminished Cardiovascular: Normal S1, Normal S2, No murmurs, No rub noted, No Gallop, Tachycardic Abdomen: Bowel Sounds Present, Soft, Non Tender, Non-Distended, Obese Extremities: No clubbing, No cyanosis, No edema, Capillary Refill Less than 3 Seconds Skin: No rashes, No breakdown Musculoskeletal: No Tenderness to Palpation of Joints or Extremities Lymphatic: No Cervical, Supraclavicular, or Inguinal Adenopathy Neurological: Cranial nerves II-XII grossly intact, Neuro grossly intact, Motor Exam 5/5 strength throughout Psych/Mental Status: Alert and oriented to time, place, person, mood and affect Laboratory Results 10/06/20 06:05: Sodium 143, Potassium 4.0, Chloride 111 H, Carbon Dioxide 27.0, Anion Gap 5, BUN 36 H, Creatinine 0.98, Estim Creat Clear Calc 62.04, Est GFR (MDRD) Af Amer 95, Est GFR (MDRD) Non-Af 79, BUN/Creatinine Ratio 36.7 H, Glucose 122 H, Calcium 8.7, Total Bilirubin 0.50, AST 37, ALT 55, Alkaline Phosphatase 53, Total Protein 6.9, Albumin 2.6 L, Globulin 4.3 H, Albumin/Globulin Ratio 0.6 L Current Medications Acetaminophen (Acetaminophen 325 Mg Tablet) 650 mg PO Q6H PRN PRN PRN Reason: Pain Score 1-10/Temp > 100.7 F Al Hydroxide/Mg Hydroxide (Mag Hydrox/Al Hydrox/Simeth 30 Ml Udc) 30 ml PO Q6H PRN PRN PRN Reason: Gastric Burning Albuterol Sulfate (Albuterol Ih 8.5 Gm (Proair) Inhaler (200 Puffs)) 2 puff INHALATION Q4H [facility] Last Admin: 10/06/20 05:21 Dose: 2 puff Documented by: Apixaban (Apixaban 5 Mg Tablet) 5 mg PO BID [facility] Last Admin: 10/05/20 19:42 Dose: 5 mg Documented by: Atorvastatin Calcium (Atorvastatin Calcium 10 Mg Tablet) 10 mg PO QHS [facility] Last Admin: 10/05/20 19:43 Dose: 10 mg Documented by: Dexamethasone (Dexamethasone 2 Mg Tablet) 6 mg PO DAILY [facility] Last Admin: 10/05/20 08:18 Dose: 6 mg Documented by: Diltiazem HCl (Diltiazem Cd 180 Mg Capsule) 180 mg PO DAILY [facility] Last Admin: 10/05/20 11:06 Dose: Not Given Documented by: Finasteride (Finasteride 5 Mg Tablet) 5 mg PO DAILY [facility] Last Admin: 10/05/20 08:20 Dose: 5 mg Documented by: Furosemide (Furosemide 20 Mg/2 Ml Vial) 20 mg IV DAILY [facility] Last Admin: 10/05/20 08:18 Dose: 20 mg Documented by: Remdesivir 100 mg/ Sodium (Chloride) 250 mls @ 125 mls/hr IV DAILY@2200 [facility] Stop: 10/07/20 23:59 Last Infusion: 10/05/20 23:03 Dose: Infused Documented by: Metoprolol Tartrate (Metoprolol Tartrate 100 Mg Tablet) 100 mg PO BID [facility] Last Admin: 10/05/20 19:43 Dose: 100 mg Documented by: Miscellaneous Information (Inhaler, Assist Devices 1 Each Spacer) 1 each INHALATION PRN PRN PRN Reason: WITH ALBUTEROL INHALER Last Admin: 10/03/20 23:35 Dose: 1 each Documented by: Nitroglycerin (Nitroglycerin (Inpatient Use) 0.4 Mg Tab.Subl) 0.4 mg SUBLINGUAL Q5M PRN PRN Reason: CARDIAC/CHEST PAIN Ondansetron HCl (Ondansetron 4 Mg/2 Ml Vial) 4 mg IV Q8H PRN PRN PRN Reason: NAUSEA/VOMITING Sodium Chloride (0.9% Saline Lock 10 Ml Syringe) 10 - 40 ml IV UD PRN PRN Reason: SALINE FLUSH Last Admin: 10/05/20 19:56 Dose: 10 ml Documented by: Tamsulosin HCl (Tamsulosin Hcl 0.4 Mg Capsule) 0.8 mg PO DAILY@2199 [facility] Last Admin: 10/05/20 19:43 Dose: 0.8 mg Documented by: Throat Lozenges (Benzocaine/Menthol 1 Lozenge) 1 lozenge MUCOUS MEM Q2H PRN PRN PRN Reason: SORE THROAT Last Admin: 10/05/20 21:45 Dose: 1 lozenge Documented by: Medical Necessity - Tobacco Use Smoking Status: Former smoker Tobacco Use: Non-smoker Assessment/Plan All Active Problems (Last Reviewed 07/25/20 @ 11:17 by Anai CHAMBERS, PA) COVID-19 (Acute) Atrial fibrillation with RVR (Acute) Acute respiratory failure with hypoxia (Acute) H/O oral surgery (Resolved) History of left cataract surgery (Resolved) TIA (transient ischemic attack) (Acute 01/09/19) Left-sided weakness (Acute) Leg edema (Acute) Edema (Acute) RECOMMENDATIONS: 1. LFTs daily while on remdesivir 2. Schedule diuretic therapy with additional doses as clinically appropriate 3. Supplemental oxygen to keep sats greater than 90% at all times 4. Agree with Decadron and remdesivir therapy 5. Continue baseline full anticoagulation 6. Continue baseline rate control IMPRESSIONS: 1. Acute hypoxic respiratory failure secondary to COVID-19 pneumonia/COPD exacerbation Patient was significantly hypoxic on presentation with bilateral infiltrates and COVID-19 positive testing. Patient is appropriately on Decadron and remdesivir therapy. Continue supplemental oxygen as necessary to maintain saturations greater than 90%. Patient is clear that he is willing to do anything to survive including intubation. Clinical suspicion for an element of cor pulmonale secondary to protracted hypoxia in the setting of type II/III pulmonary hypertension. Patient on baseline diuretic therapy. Will give additional doses as clinically appropriate. Patient reportedly is negative for the hospitalization, but weight is slightly up compared to previous. Patient will need LFTs for safety monitoring while on remdesivir. Patient transition to AVAPS, especially with sleep, to help with recruitment and oxygenation. Patient appears to be responding well. 2. A. fib with RVR/cor pulmonale Clinical suspicion for an element of elevated rate and lower extremity edema secondary to protracted hypoxia associated with problem #1. Patient with progressive hypoxia. On baseline diuretic therapy. Rate is fairly controlled today. Continue with baseline rate control medications. Blood pressure is adequate at this time. Patient did not have significant systolic dysfunction on previous echo. Low clinical suspicion for PE given patient's chronic anticoagulation. 3. BPH/hyperlipidemia/advanced age/obesity Complicates care, management, recovery and prognosis. Extensive conversation with patient about goals of therapy. Patient states he is willing to do anything to live. Patient has relatively mild COPD and has a reasonable chance of coming off of ventilator if necessary. However, given progression of hypoxia, intubation may be necessary during hospitalization. Inpatient E&M: [id number] [facility] L3
[2020-10-06] MEDS: Metoprolol Tartrate 100 MG Tablet PO ×2 (08:37→20:48)
[2020-10-06] MEDS: dilTIAZem CD 180 MG Capsule PO (08:37)
[2020-10-06] MEDS: Furosemide 20 MG/2 ML VIAL IV (08:37)
[2020-10-06] MEDS: APIXABAN 5 MG TABLET PO ×2 (08:37→20:47)
[2020-10-06] MEDS: dexAMETHasone 2 MG TABLET 6 MG PO (08:37)
[2020-10-06] MEDS: Finasteride 5 MG Tablet PO (08:37)
--- NOTE | 2020-10-06 09:59 | PCM.PN.HOSP ---
Patient Problems: Active and Suspected Problems (Last Reviewed 07/25/20 @ 11:17 by Anai Capellan PA, PA) COVID-19 (Acute) Atrial fibrillation with RVR (Acute) Acute respiratory failure with hypoxia (Acute) Reason for Visit: COVID 19 Subjective: Breathing well with Airvo Vitals/I&O's: Vital Signs Temp Pulse Resp BP Pulse Ox 36.4 C L 101 H 18 114/76 96 10/06/20 08:00 10/06/20 08:37 10/06/20 08:00 10/06/20 08:00 10/06/20 08:00 Oxygen Flow Rate (L/min) 60 Oxygen Delivery Method Airvo Weight: 110 kg Body Mass Index (BMI) 36.5 Finger Stick Blood Glucose 164 Intake and Output for Last 24 Hours 10/04/20 10/05/20 10/06/20 23:59 23:59 23:59 Intake Total 980 / 980 550 / 550 Output Total 1675 / 1675 1200 / 1200 250 / 250 Balance -695 / -695 -650 / -650 -250 / -250 General: Alert, No apparent distress HEENT: Atraumatic, Normocephalic Oral: Moist Mucosa, No Gingival or Mucosal Lesions/ Ulcerations Neck: No Nodes, Thyroid Normal Size and Texture Lungs: Clear to auscultation, Normal air movement, No rhonchi, No wheeze, No rales Cardiovascular: Regular rate, Regular Rhythm, Normal S1, Normal S2, No murmurs Abdomen: Bowel Sounds Present, Soft, Non Tender, Non-Distended, No Hepato-splenomegaly Extremities: No edema, No Calf Tenderness Skin: No rashes, No breakdown Psych/Mental Status: Normal Affect, Appropriate Microbiology Past 72 Hours 10/03/20 16:20 Blood Culture (Wb) - Anticubital Left Blood Culture - Preliminary No growth in 48 hours. 10/03/20 20:00 Blood Culture (Wb) - Anticubital Right Blood Culture - Preliminary No growth in 48 hours. Laboratory Results 10/06/20 06:05: Sodium 143, Potassium 4.0, Chloride 111 H, Carbon Dioxide 27.0, Anion Gap 5, BUN 36 H, Creatinine 0.98, Estim Creat Clear Calc 62.04, Est GFR (MDRD) Af Amer 95, Est GFR (MDRD) Non-Af 79, BUN/Creatinine Ratio 36.7 H, Glucose 122 H, Calcium 8.7, Total Bilirubin 0.50, AST 37, ALT 55, Alkaline Phosphatase 53, Total Protein 6.9, Albumin 2.6 L, Globulin 4.3 H, Albumin/Globulin Ratio 0.6 L Current Medications Acetaminophen (Acetaminophen 325 Mg Tablet) 650 mg PO Q6H PRN PRN PRN Reason: Pain Score 1-10/Temp > 100.7 F Al Hydroxide/Mg Hydroxide (Mag Hydrox/Al Hydrox/Simeth 30 Ml Udc) 30 ml PO Q6H PRN PRN PRN Reason: Gastric Burning Albuterol Sulfate (Albuterol Ih 8.5 Gm (Proair) Inhaler (200 Puffs)) 2 puff INHALATION Q4H [facility] Last Admin: 10/06/20 08:38 Dose: 2 puff Documented by: Apixaban (Apixaban 5 Mg Tablet) 5 mg PO BID [facility] Last Admin: 10/06/20 08:37 Dose: 5 mg Documented by: Atorvastatin Calcium (Atorvastatin Calcium 10 Mg Tablet) 10 mg PO QHS [facility] Last Admin: 10/05/20 19:43 Dose: 10 mg Documented by: Dexamethasone (Dexamethasone 2 Mg Tablet) 6 mg PO DAILY [facility] Last Admin: 10/06/20 08:37 Dose: 6 mg Documented by: Diltiazem HCl (Diltiazem Cd 180 Mg Capsule) 180 mg PO DAILY [facility] Last Admin: 10/06/20 08:37 Dose: 180 mg Documented by: Finasteride (Finasteride 5 Mg Tablet) 5 mg PO DAILY [facility] Last Admin: 10/06/20 08:37 Dose: 5 mg Documented by: Furosemide (Furosemide 20 Mg/2 Ml Vial) 20 mg IV DAILY [facility] Last Admin: 10/06/20 08:37 Dose: 20 mg Documented by: Remdesivir 100 mg/ Sodium (Chloride) 250 mls @ 125 mls/hr IV DAILY@2200 [facility] Stop: 10/07/20 23:59 Last Infusion: 10/05/20 23:03 Dose: Infused Documented by: Metoprolol Tartrate (Metoprolol Tartrate 100 Mg Tablet) 100 mg PO BID [facility] Last Admin: 10/06/20 08:37 Dose: 100 mg Documented by: Miscellaneous Information (Inhaler, Assist Devices 1 Each Spacer) 1 each INHALATION PRN PRN PRN Reason: WITH ALBUTEROL INHALER Last Admin: 10/03/20 23:35 Dose: 1 each Documented by: Nitroglycerin (Nitroglycerin (Inpatient Use) 0.4 Mg Tab.Subl) 0.4 mg SUBLINGUAL Q5M PRN PRN Reason: CARDIAC/CHEST PAIN Ondansetron HCl (Ondansetron 4 Mg/2 Ml Vial) 4 mg IV Q8H PRN PRN PRN Reason: NAUSEA/VOMITING Sodium Chloride (0.9% Saline Lock 10 Ml Syringe) 10 - 40 ml IV UD PRN PRN Reason: SALINE FLUSH Last Admin: 10/05/20 19:56 Dose: 10 ml Documented by: Tamsulosin HCl (Tamsulosin Hcl 0.4 Mg Capsule) 0.8 mg PO DAILY@2200 [facility] Last Admin: 10/05/20 19:43 Dose: 0.8 mg Documented by: Throat Lozenges (Benzocaine/Menthol 1 Lozenge) 1 lozenge MUCOUS MEM Q2H PRN PRN PRN Reason: SORE THROAT Last Admin: 10/05/20 21:45 Dose: 1 lozenge Documented by: STROKE Vital Signs/Narrative: Vital Signs Temp Pulse Resp BP BP Pulse Ox 10/06/20 08:37 101 H 10/06/20 08:00 36.4 C L 101 H 18 114/76 96 10/06/20 07:32 96 20 H 91 10/06/20 07:00 114 H 22 H 123/81 H 90 10/06/20 06:00 101 H 23 H 112/77 93 Medical Necessity - Tobacco Use Smoking Status: Former smoker Tobacco Use: Non-smoker Assessment/Plan All Active Problems (Last Reviewed 07/25/20 @ 11:17 by Anai CHAMBERS, PA) COVID-19 (Acute) Atrial fibrillation with RVR (Acute) Acute respiratory failure with hypoxia (Acute) H/O oral surgery (Resolved) History of left cataract surgery (Resolved) TIA (transient ischemic attack) (Acute 01/09/19) Left-sided weakness (Acute) Leg edema (Acute) Edema (Acute) 1. acute hypoxic respiratory failure stable 2/2 COVID 19 +/- COPD exacerbation on Airvo, BiPAP QHS wean oxygen as able pulm following 10/05: furosemide challenge pulm following 2. acute COVID 19 pneumonia on dexa and Rem-d 3. afib w RVR resolved on metoprolol tartrate 100 BID and dilt 180 anticoagulated on apixaban 4. hypokalemia: improved monitor 5. h/o VTE: anticoagulated 6. VTE prophylaxis: not indicated. he is anticoagulated. Inpatient E&M: 93191 [facility] L2
[2020-10-06] MEDS: Atorvastatin Calcium 10 MG Tablet PO (20:47)
[2020-10-06] MEDS: Tamsulosin HCl 0.4 MG Capsule 0.8 MG PO (20:48)
[2020-10-07] VITALS (18 sets, daily range): BP systolic 115–139; BP diastolic 72–78; PULSE 78–128; RESP 12–28; TEMP 36.3–36.7; O2SAT 90–97
--- NOTE | 2020-10-07 07:40 | PN_ITS ---
Patient Problems: Active and Suspected Problems (Last Reviewed 07/25/20 @ 11:17 by Anai Capellan PA, PA) COVID-19 (Acute) Atrial fibrillation with RVR (Acute) Acute respiratory failure with hypoxia (Acute) Reason for Visit: Follow-up for acute hypoxic respiratory failure secondary to COVID-19 pneumonia Objective: Patient is still short of breath on high flow, humidified oxygen. No fever. Heart rate in 90s. Did not move for 5 days. Physical exam General: Alert, Oriented x3, Cooperative HEENT: Atraumatic, PERRLA, EOMI, Normocephalic Oral: No Gingival or Mucosal Lesions/ Ulcerations Neck: Supple, No JVD, Negative Carotid Bruits Lungs: Air entry severely diminished in bilateral lungs. On high flow oxygen, 80% FiO2 No crepitation/rhonchi Cardiovascular: A. fib with irregular rate and rhythm, Normal S1, Normal S2, No murmurs Abdomen: Bowel Sounds Present, Soft, Non Tender, Non-Distended : No renal angle tenderness. No suprapubic tenderness. Extremities: No edema, Capillary Refill Less than 3 Seconds Skin: No rashes, No breakdown Musculoskeletal: No Tenderness to Palpation of Joints or Extremities Neurological: Cranial nerves II-XII grossly intact, Deep Tendon Reflexes 2+/4 and Symmetrical, Neuro grossly intact Psych/Mental Status: Normal Affect, Appropriate. Vitals/I&O's: Vital Signs Temp Pulse Resp BP Pulse Ox 98 F 88 19 H 120/73 91 10/07/20 03:00 10/07/20 07:09 10/07/20 07:09 10/07/20 03:00 10/07/20 07:09 Oxygen Flow Rate (L/min) 60 Oxygen Delivery Method Bi-pap Weight: 242 lb 15.19 oz Body Mass Index (BMI) 36.5 Finger Stick Blood Glucose 164 Intake and Output for Last 24 Hours 10/05/20 10/06/20 10/07/20 23:59 23:59 23:59 Intake Total 550 / 550 850 / 970 360 / 360 Output Total 1200 / 1200 750 / 1000 850 / 850 Balance -650 / -650 100 / -30 -490 / -490 Microbiology Past 72 Hours 10/03/20 16:20 Blood Culture (Wb) - Anticubital Left Blood Culture - Preliminary No growth in 48 hours. 10/03/20 20:00 Blood Culture (Wb) - Anticubital Right Blood Culture - Preliminary No growth in 48 hours. Current Medications Acetaminophen (Acetaminophen 325 Mg Tablet) 650 mg PO Q6H PRN PRN PRN Reason: Pain Score 1-10/Temp > 100.7 F Al Hydroxide/Mg Hydroxide (Mag Hydrox/Al Hydrox/Simeth 30 Ml Udc) 30 ml PO Q6H PRN PRN PRN Reason: Gastric Burning Albuterol Sulfate (Albuterol Ih 8.5 Gm (Proair) Inhaler (200 Puffs)) 2 puff INHALATION Q4H [facility] Last Admin: 10/07/20 06:24 Dose: 2 puff Documented by: Apixaban (Apixaban 5 Mg Tablet) 5 mg PO BID [facility] Last Admin: 10/06/20 20:47 Dose: 5 mg Documented by: Atorvastatin Calcium (Atorvastatin Calcium 10 Mg Tablet) 10 mg PO QHS [facility] Last Admin: 10/06/20 20:47 Dose: 10 mg Documented by: Dexamethasone (Dexamethasone 2 Mg Tablet) 6 mg PO DAILY [facility] Last Admin: 10/06/20 08:37 Dose: 6 mg Documented by: Diltiazem HCl (Diltiazem Cd 180 Mg Capsule) 180 mg PO DAILY [facility] Last Admin: 10/06/20 08:37 Dose: 180 mg Documented by: Finasteride (Finasteride 5 Mg Tablet) 5 mg PO DAILY [facility] Last Admin: 10/06/20 08:37 Dose: 5 mg Documented by: Furosemide (Furosemide 20 Mg/2 Ml Vial) 20 mg IV DAILY [facility] Last Admin: 10/06/20 08:37 Dose: 20 mg Documented by: Remdesivir 100 mg/ Sodium (Chloride) 250 mls @ 125 mls/hr IV DAILY@2200 [facility] Stop: 10/07/20 23:59 Last Infusion: 10/06/20 23:02 Dose: Infused Documented by: Metoprolol Tartrate (Metoprolol Tartrate 100 Mg Tablet) 100 mg PO BID [facility] Last Admin: 10/06/20 20:48 Dose: 100 mg Documented by: Miscellaneous Information (Inhaler, Assist Devices 1 Each Spacer) 1 each INHALATION PRN PRN PRN Reason: WITH ALBUTEROL INHALER Last Admin: 10/03/20 23:35 Dose: 1 each Documented by: Nitroglycerin (Nitroglycerin (Inpatient Use) 0.4 Mg Tab.Subl) 0.4 mg SUBLINGUAL Q5M PRN PRN Reason: CARDIAC/CHEST PAIN Ondansetron HCl (Ondansetron 4 Mg/2 Ml Vial) 4 mg IV Q8H PRN PRN PRN Reason: NAUSEA/VOMITING Sodium Chloride (0.9% Saline Lock 10 Ml Syringe) 10 - 40 ml IV UD PRN PRN Reason: SALINE FLUSH Last Admin: 10/05/20 19:56 Dose: 10 ml Documented by: Tamsulosin HCl (Tamsulosin Hcl 0.4 Mg Capsule) 0.8 mg PO DAILY@2200 [facility] Last Admin: 10/06/20 20:48 Dose: 0.8 mg Documented by: Throat Lozenges (Benzocaine/Menthol 1 Lozenge) 1 lozenge MUCOUS MEM Q2H PRN PRN PRN Reason: SORE THROAT Last Admin: 10/05/20 21:45 Dose: 1 lozenge Documented by: STROKE Vital Signs/Narrative: Vital Signs Pulse Resp Pulse Ox 10/07/20 07:09 88 19 H 91 10/07/20 04:30 96 20 H 90 10/07/20 04:00 99 Medical Necessity - Tobacco Use Smoking Status: Former smoker Tobacco Use: Non-smoker Assessment/Plan All Active Problems (Last Reviewed 07/25/20 @ 11:17 by Anai CHAMBERS, PA) COVID-19 (Acute) Atrial fibrillation with RVR (Acute) Acute respiratory failure with hypoxia (Acute) H/O oral surgery (Resolved) History of left cataract surgery (Resolved) TIA (transient ischemic attack) (Acute 01/09/19) Left-sided weakness (Acute) Leg edema (Acute) Edema (Acute) 75-year-old gentleman admitted with shortness of breath consistent COVID-19 pneumonia 1. acute hypoxic respiratory failure and COPD exacerbation secondary to COVID-19 pneumonia: On high flow humidified oxygen, AIRVO, BiPAP nightly. Patient had dose of Lasix on 10/05. Currently pulse ox 95% on BiPAP. Net negative fluid balance -1 L. On Lasix 20 mg IV daily. 2. acute COVID 19 pneumonia: On dexamethasone and remdesivir. 3. afib w RVR: Heart rate is controlled. On metoprolol diltiazem and Eliquis. 4. hypokalemia: Potassium normal. Magnesium 1.9 on 10/03. Hypokalemia resolved. 5. History of bilateral pulmonary embolism, pulmonary artery hypertension: On Eliquis. 6. Mild constipation: Started on senna S and MiraLAX. Inpatient E&M: [id number] [facility] Hosp L2
[2020-10-07] MEDS: dilTIAZem CD 180 MG Capsule PO (08:18)
[2020-10-07] MEDS: Furosemide 20 MG/2 ML VIAL IV (08:18)
[2020-10-07] MEDS: dexAMETHasone 2 MG TABLET 6 MG PO (08:18)
[2020-10-07] MEDS: APIXABAN 5 MG TABLET PO ×2 (08:18→22:03)
[2020-10-07] MEDS: Metoprolol Tartrate 100 MG Tablet PO ×2 (08:18→22:03)
[2020-10-07] MEDS: Finasteride 5 MG Tablet PO (08:19)
--- NOTE | 2020-10-07 08:19 | PCM.PN.PUL ---
Patient Problems: Active and Suspected Problems (Last Reviewed 07/25/20 @ 11:17 by Anai Capellan PA, PA) COVID-19 (Acute) Atrial fibrillation with RVR (Acute) Acute respiratory failure with hypoxia (Acute) Subjective: The patient was seen and examined at the bedside this morning. Events from the last 24 hours have been reviewed. The patient is currently afebrile, hemodynamically stable and maintaining appropriate oxygen saturations on Airvo heated high flow with an FiO2 requirement of 79% and flow rate of 60 L/min. The patient remains systemically anticoagulated on Eliquis twice daily. The patient is also being continued on remdesivir and Decadron. Liver and renal function are stable. The patient is currently documented to be overall net -1.3 L for the hospital admission. Objective: The patient's most recent lab work, culture data and imaging studies have all been personally reviewed. - Physical Exam Vitals/I&O's: Vital Signs Temp Pulse Resp BP Pulse Ox 98 F 88 19 H 120/73 91 10/07/20 03:00 10/07/20 07:09 10/07/20 07:09 10/07/20 03:00 10/07/20 07:09 Oxygen Flow Rate (L/min) 60 Oxygen Delivery Method Bi-pap Weight: 242 lb 15.19 oz Body Mass Index (BMI) 36.5 Finger Stick Blood Glucose 164 Intake and Output for Last 24 Hours 10/05/20 10/06/20 10/07/20 23:59 23:59 23:59 Intake Total 550 / 550 850 / 970 360 / 360 Output Total 1200 / 1200 750 / 1000 850 / 850 Balance -650 / -650 100 / -30 -490 / -490 General: Alert, Cooperative, No apparent distress HEENT: Atraumatic, PERRLA, Normocephalic Oral: No Gingival or Mucosal Lesions/ Ulcerations Neck: Supple, No Nodes, Trachea Midline Lungs: No rhonchi, No wheeze, No rales, Diminished Cardiovascular: Regular rate, Regular Rhythm Abdomen: Bowel Sounds Present, Soft, Non Tender, Obese Extremities: No clubbing, No cyanosis, No edema Skin: No breakdown Musculoskeletal: No Tenderness to Palpation of Joints or Extremities Lymphatic: No Cervical, Supraclavicular, or Inguinal Adenopathy Neurological: Cranial nerves II-XII grossly intact, Neuro grossly intact Psych/Mental Status: Normal Affect, Appropriate Labs (Last 48 Hours) 10/06/20 06:05 Sodium 143 Potassium 4.0 Chloride 111 H Carbon Dioxide 27.0 Anion Gap 5 BUN 36 H Creatinine 0.98 Estim Creat Clear Calc 62.04 Est GFR (MDRD) Af Amer 95 Est GFR (MDRD) Non-Af 79 BUN/Creatinine Ratio 36.7 H Glucose 122 H Calcium 8.7 Total Bilirubin 0.50 AST 37 ALT 55 Alkaline Phosphatase 53 Total Protein 6.9 Albumin 2.6 L Globulin 4.3 H Albumin/Globulin Ratio 0.6 L Microbiology 10/03/20 16:20 Blood Culture (Wb) - Anticubital Left Blood Culture - Preliminary No growth in 48 hours. 10/03/20 20:00 Blood Culture (Wb) - Anticubital Right Blood Culture - Preliminary No growth in 48 hours. Clinical Impression(s) from Imaging Studies Chest X-Ray 10/03/20 16:35 IMPRESSION: Bilateral pneumonia. Electronically Signed: Andrea Anthony MD at 17:29 EST Tel , Service support , Current Medications Acetaminophen (Acetaminophen 325 Mg Tablet) 650 mg PO Q6H PRN PRN PRN Reason: Pain Score 1-10/Temp > 100.7 F Al Hydroxide/Mg Hydroxide (Mag Hydrox/Al Hydrox/Simeth 30 Ml Udc) 30 ml PO Q6H PRN PRN PRN Reason: Gastric Burning Albuterol Sulfate (Albuterol Ih 8.5 Gm (Proair) Inhaler (200 Puffs)) 2 puff INHALATION Q4H [facility] Last Admin: 10/07/20 06:24 Dose: 2 puff Documented by: Apixaban (Apixaban 5 Mg Tablet) 5 mg PO BID [facility] Last Admin: 10/06/20 20:47 Dose: 5 mg Documented by: Atorvastatin Calcium (Atorvastatin Calcium 10 Mg Tablet) 10 mg PO QHS [facility] Last Admin: 10/06/20 20:47 Dose: 10 mg Documented by: Dexamethasone (Dexamethasone 2 Mg Tablet) 6 mg PO DAILY [facility] Last Admin: 10/06/20 08:37 Dose: 6 mg Documented by: Diltiazem HCl (Diltiazem Cd 180 Mg Capsule) 180 mg PO DAILY [facility] Last Admin: 10/06/20 08:37 Dose: 180 mg Documented by: Finasteride (Finasteride 5 Mg Tablet) 5 mg PO DAILY [facility] Last Admin: 10/06/20 08:37 Dose: 5 mg Documented by: Furosemide (Furosemide 20 Mg/2 Ml Vial) 20 mg IV DAILY [facility] Last Admin: 10/06/20 08:37 Dose: 20 mg Documented by: Remdesivir 100 mg/ Sodium (Chloride) 250 mls @ 125 mls/hr IV DAILY@2199 [facility] Stop: 10/07/20 23:59 Last Infusion: 10/06/20 23:02 Dose: Infused Documented by: Metoprolol Tartrate (Metoprolol Tartrate 100 Mg Tablet) 100 mg PO BID [facility] Last Admin: 10/06/20 20:48 Dose: 100 mg Documented by: Miscellaneous Information (Inhaler, Assist Devices 1 Each Spacer) 1 each INHALATION PRN PRN PRN Reason: WITH ALBUTEROL INHALER Last Admin: 10/03/20 23:35 Dose: 1 each Documented by: Nitroglycerin (Nitroglycerin (Inpatient Use) 0.4 Mg Tab.Subl) 0.4 mg SUBLINGUAL Q5M PRN PRN Reason: CARDIAC/CHEST PAIN Ondansetron HCl (Ondansetron 4 Mg/2 Ml Vial) 4 mg IV Q8H PRN PRN PRN Reason: NAUSEA/VOMITING Sodium Chloride (0.9% Saline Lock 10 Ml Syringe) 10 - 40 ml IV UD PRN PRN Reason: SALINE FLUSH Last Admin: 10/05/20 19:56 Dose: 10 ml Documented by: Tamsulosin HCl (Tamsulosin Hcl 0.4 Mg Capsule) 0.8 mg PO DAILY@0 [facility] Last Admin: 10/06/20 20:48 Dose: 0.8 mg Documented by: Throat Lozenges (Benzocaine/Menthol 1 Lozenge) 1 lozenge MUCOUS MEM Q2H PRN PRN PRN Reason: SORE THROAT Last Admin: 10/05/20 21:45 Dose: 1 lozenge Documented by: Medical Necessity - Tobacco Use Smoking Status: Former smoker Tobacco Use: Non-smoker Assessment/Plan All Active Problems (Last Reviewed 07/25/20 @ 11:17 by Anai Capellan PA, PA) COVID-19 (Acute) Atrial fibrillation with RVR (Acute) Acute respiratory failure with hypoxia (Acute) H/O oral surgery (Resolved) History of left cataract surgery (Resolved) TIA (transient ischemic attack) (Acute 01/09/19) Left-sided weakness (Acute) Leg edema (Acute) Edema (Acute) RECOMMENDATIONS: 1. Continue supplemental oxygen and wean FiO2 to maintain saturations at or above 90%. 2. Continue noninvasive positive pressure ventilatory support nightly. 3. Continue remdesivir to complete treatment course. Monitor liver and renal function accordingly. 4. Continue Decadron to complete 10-day treatment course. 5. Continue systemic anticoagulation with Eliquis. 6. Continue gentle diuresis as tolerated by hemodynamics and renal function. 7. Encourage incentive spirometer use and mobilize patient as tolerated. IMPRESSIONS: 1. Acute hypoxic respiratory failure secondary to COVID-19 pneumonia/COPD exacerbation Stable at this time on heated high flow supplemental oxygen. The patient does have significant bilateral infiltrates on chest imaging. He will remain on remdesivir and Decadron to complete treatment courses. We will continue to monitor liver and renal function accordingly. The patient will also be continued on systemic anticoagulation with Eliquis along with IV diuretic therapy as tolerated by hemodynamics and renal function. Continue to wean FiO2 to maintain oxygen saturations at or above 90%. 2. A. fib with RVR/cor pulmonale Continue baseline cardiac medications and diuretic therapy. Hemodynamics remained stable. 3. BPH/hyperlipidemia/advanced age/obesity Complicates care, management, recovery and prognosis. Continue home medications as indicated. This note was generated with [email or web address] dictation software. It may contain incorrect words, spelling, and punctuation that were not noted in checking the note before signing. Inpatient E&M: [id number] [facility] L3
[2020-10-07] MEDS: Senna/Docusate Sodium 1 Tablet 2 TABLET PO ×2 (13:02→22:04)
[2020-10-07] MEDS: Polyethylene Glycol 3350 17 GM PACKET PO (13:02)
[2020-10-07] MEDS: Tamsulosin HCl 0.4 MG Capsule 0.8 MG PO (22:03)
[2020-10-07] MEDS: Atorvastatin Calcium 10 MG Tablet PO (22:04)
[2020-10-08] VITALS (21 sets, daily range): BP systolic 104–131; BP diastolic 64–81; PULSE 77–122; RESP 12–30; TEMP 36.4–36.9; O2SAT 90–95
--- NOTE | 2020-10-08 07:33 | PN_ITS ---
Patient Problems: Active and Suspected Problems (Last Reviewed 07/25/20 @ 11:17 by Anai Capellan PA, PA) COVID-19 (Acute) Atrial fibrillation with RVR (Acute) Acute respiratory failure with hypoxia (Acute) Subjective: The patient was seen and examined at the bedside this morning. Events from the last 24 hours have been reviewed. The patient is currently afebrile, hemodynamically stable and maintaining appropriate oxygen saturations on Airvo heated high flow oxygen with an FiO2 requirement of 60% and flow rate of 60 L/ min. The patient has completed his treatment course of remdesivir and remains on Decadron. The patient is currently documented to be overall net -1.5 L for the hospital admission. The patient does report that he has difficulty tolerating noninvasive positive pressure ventilatory support on a nightly basis. Objective: The patient's most recent lab work, culture data and imaging studies have all been personally reviewed. - Physical Exam Vitals/I&O's: Vital Signs Temp Pulse Resp BP Pulse Ox 98.4 F 94 22 H 131/79 H 92 10/08/20 05:49 10/08/20 05:49 10/08/20 05:49 10/08/20 05:49 10/08/20 05:49 Oxygen Flow Rate (L/min) 60 Oxygen Delivery Method Airvo Weight: 242 lb 3 oz Body Mass Index (BMI) 36.5 Finger Stick Blood Glucose 164 Intake and Output for Last 24 Hours 10/06/20 10/07/20 10/08/20 23:59 23:59 23:59 Intake Total 850 / 970 1200 / 1200 250 / 250 Output Total 750 / 1000 1800 / 1925 425 / 425 Balance 100 / -30 -600 / -725 -175 / -175 General: Alert, Cooperative, No apparent distress HEENT: Atraumatic, PERRLA, Normocephalic Oral: No Gingival or Mucosal Lesions/ Ulcerations Neck: Supple, No Nodes, Trachea Midline Lungs: No rhonchi, No wheeze, No rales, Diminished Cardiovascular: Regular rate, Regular Rhythm, Normal S1, Normal S2, Murmur Abdomen: Bowel Sounds Present, Soft, Non Tender, Obese Extremities: No clubbing, No cyanosis, No edema Skin: No breakdown Musculoskeletal: No Tenderness to Palpation of Joints or Extremities, No Muscle Wasting Lymphatic: No Cervical, Supraclavicular, or Inguinal Adenopathy Neurological: Cranial nerves II-XII grossly intact, Neuro grossly intact Psych/Mental Status: Alert and oriented to time, place, person, mood and affect Microbiology 10/03/20 16:20 Blood Culture (Wb) - Anticubital Left Blood Culture - Preliminary No growth in 48 hours. 10/03/20 20:00 Blood Culture (Wb) - Anticubital Right Blood Culture - Preliminary No growth in 48 hours. Clinical Impression(s) from Imaging Studies Chest X-Ray 10/03/20 16:35 IMPRESSION: Bilateral pneumonia. Electronically Signed: Andrea Anthony MD at 17:29 EST Tel , Service support , Current Medications Acetaminophen (Acetaminophen 325 Mg Tablet) 650 mg PO Q6H PRN PRN PRN Reason: Pain Score 1-10/Temp > 100.7 F Al Hydroxide/Mg Hydroxide (Mag Hydrox/Al Hydrox/Simeth 30 Ml Udc) 30 ml PO Q6H PRN PRN PRN Reason: Gastric Burning Albuterol Sulfate (Albuterol Ih 8.5 Gm (Proair) Inhaler (200 Puffs)) 2 puff INHALATION Q4H [facility] Last Admin: 10/08/20 05:52 Dose: 2 puff Documented by: Apixaban (Apixaban 5 Mg Tablet) 5 mg PO BID [facility] Last Admin: 10/07/20 22:03 Dose: 5 mg Documented by: Atorvastatin Calcium (Atorvastatin Calcium 10 Mg Tablet) 10 mg PO QHS [facility] Last Admin: 10/07/20 22:04 Dose: 10 mg Documented by: Dexamethasone (Dexamethasone 2 Mg Tablet) 6 mg PO DAILY [facility] Last Admin: 10/07/20 08:18 Dose: 6 mg Documented by: Diltiazem HCl (Diltiazem Cd 180 Mg Capsule) 180 mg PO DAILY [facility] Last Admin: 10/07/20 08:18 Dose: 180 mg Documented by: Finasteride (Finasteride 5 Mg Tablet) 5 mg PO DAILY [facility] Last Admin: 10/07/20 08:19 Dose: 5 mg Documented by: Furosemide (Furosemide 20 Mg/2 Ml Vial) 20 mg IV DAILY [facility] Last Admin: 10/07/20 08:18 Dose: 20 mg Documented by: Metoprolol Tartrate (Metoprolol Tartrate 100 Mg Tablet) 100 mg PO BID [facility] Last Admin: 10/07/20 22:03 Dose: 100 mg Documented by: Miscellaneous Information (Inhaler, Assist Devices 1 Each Spacer) 1 each INHALATION PRN PRN PRN Reason: WITH ALBUTEROL INHALER Last Admin: 10/03/20 23:35 Dose: 1 each Documented by: Nitroglycerin (Nitroglycerin (Inpatient Use) 0.4 Mg Tab.Subl) 0.4 mg SUBLINGUAL Q5M PRN PRN Reason: CARDIAC/CHEST PAIN Ondansetron HCl (Ondansetron 4 Mg/2 Ml Vial) 4 mg IV Q8H PRN PRN PRN Reason: NAUSEA/VOMITING Polyethylene Glycol (Polyethylene Glycol 3350 17 Gm Packet) 17 gm PO DAILY [facility] Last Admin: 10/07/20 13:02 Dose: 17 gm Documented by: Senna/Docusate Sodium (Senna/Docusate Sodium 1 Tablet) 2 tablet PO BID [facility] Stop: 10/09/20 12:41 Last Admin: 10/07/20 22:04 Dose: 2 tablet Documented by: Sodium Chloride (0.9% Saline Lock 10 Ml Syringe) 10 - 40 ml IV UD PRN PRN Reason: SALINE FLUSH Last Admin: 10/05/20 19:56 Dose: 10 ml Documented by: Tamsulosin HCl (Tamsulosin Hcl 0.4 Mg Capsule) 0.8 mg PO DAILY@2200 [facility] Last Admin: 10/07/20 22:03 Dose: 0.8 mg Documented by: Throat Lozenges (Benzocaine/Menthol 1 Lozenge) 1 lozenge MUCOUS MEM Q2H PRN PRN PRN Reason: SORE THROAT Last Admin: 10/05/20 21:45 Dose: 1 lozenge Documented by: Medical Necessity - Tobacco Use Smoking Status: Former smoker Tobacco Use: Non-smoker Assessment/Plan All Active Problems (Last Reviewed 07/25/20 @ 11:17 by Anai Capellan PA, PA) COVID-19 (Acute) Atrial fibrillation with RVR (Acute) Acute respiratory failure with hypoxia (Acute) H/O oral surgery (Resolved) History of left cataract surgery (Resolved) TIA (transient ischemic attack) (Acute 01/09/19) Left-sided weakness (Acute) Leg edema (Acute) Edema (Acute) RECOMMENDATIONS: 1. Continue supplemental oxygen and wean FiO2 to maintain saturations at or above 90%. 2. Continue noninvasive positive pressure ventilatory support nightly. 3. Continue Decadron to complete 10-day treatment course. 4. Continue systemic anticoagulation with Eliquis. 5. Continue gentle diuresis as tolerated by hemodynamics and renal function. 6. Encourage incentive spirometer use and mobilize patient as tolerated. IMPRESSIONS: 1. Acute hypoxic respiratory failure secondary to COVID-19 pneumonia/COPD exacerbation Stable at this time on heated high flow supplemental oxygen. The patient does have significant bilateral infiltrates on chest imaging. The patient has completed his treatment course of remdesivir and will remain on Decadron to complete a 10-day course. The patient will also be continued on systemic anticoagulation with Eliquis along with IV diuretic therapy as tolerated by hemodynamics and renal function. Continue to wean FiO2 to maintain oxygen saturations at or above 90%. 2. A. fib with RVR/cor pulmonale Continue baseline cardiac medications and diuretic therapy. Hemodynamics remained stable. 3. BPH/hyperlipidemia/advanced age/obesity Complicates care, management, recovery and prognosis. Continue home medications as indicated. This note was generated with [employer] dictation software. It may contain incorrect words, spelling, and punctuation that were not noted in checking the note before signing. Inpatient E&M: 79118 [facility] L3
[2020-10-08 09:15] LABS: Anion Gap 7 (5-15); BUN 35 mg/dL (7-18); BUN/Creat Ratio 37.6 RATIO (10-20); Calcium,Total 8.7 mg/dL (8.5-10.1); Chloride 109 mmol/L (98-107); Creatinine, Serum 0.93 mg/dL (0.70-1.30); EST Glomerular Filtration Rate 84 mL/min (>60); Est Glom Filt Rate - Afr Amer 101 mL/min (>60); Estimated Creatinine Clearance 65.38 ml/min; Glucose 111 mg/dL (74-106); Potassium 4.5 mmol/L (3.5-5.1); Sodium Level 143 mmol/L (136-145)
[2020-10-08] MEDS: Polyethylene Glycol 3350 17 GM PACKET PO (09:20)
[2020-10-08] MEDS: Senna/Docusate Sodium 1 Tablet 2 TABLET PO ×2 (09:21→21:14)
[2020-10-08] MEDS: Furosemide 20 MG/2 ML VIAL IV (09:21)
[2020-10-08] MEDS: dexAMETHasone 2 MG TABLET 6 MG PO (09:21)
[2020-10-08] MEDS: APIXABAN 5 MG TABLET PO ×2 (09:22→21:15)
[2020-10-08] MEDS: Metoprolol Tartrate 100 MG Tablet PO ×2 (09:22→21:14)
[2020-10-08] MEDS: dilTIAZem CD 180 MG Capsule PO (09:22)
[2020-10-08] MEDS: Finasteride 5 MG Tablet PO (09:22)
--- NOTE | 2020-10-08 11:45 | PCM.PN.HOSP ---
Patient Problems: Active and Suspected Problems (Last Reviewed 07/25/20 @ 11:17 by Anai Capellan PA, PA) COVID-19 (Acute) Atrial fibrillation with RVR (Acute) Acute respiratory failure with hypoxia (Acute) Reason for Visit: Acute hypoxic respiratory failure secondary to COVID-19 pneumonia Objective: Patient tachycardic, mild short of breath on exertion. Cough mainly dry. On high flow oxygen. 78% FiO2. He moved bowel. Physical exam General: Alert, Oriented x3, Cooperative HEENT: Atraumatic, PERRLA, EOMI, Normocephalic Oral: No Gingival or Mucosal Lesions/ Ulcerations Neck: Supple, No JVD, Negative Carotid Bruits Lungs: Air entry diminished in bilateral lung bases. No crepitation/rhonchi Cardiovascular: Regular rate, Regular Rhythm, Normal S1, Normal S2, No murmurs Abdomen: Bowel Sounds Present, Soft, Non Tender, Non-Distended : No renal angle tenderness. No suprapubic tenderness. Extremities: No edema, Capillary Refill Less than 3 Seconds Skin: No rashes, No breakdown Musculoskeletal: No Tenderness to Palpation of Joints or Extremities Neurological: Cranial nerves II-XII grossly intact, Deep Tendon Reflexes 2+/4 and Symmetrical, Neuro grossly intact Psych/Mental Status: Normal Affect, Appropriate. Vitals/I&O's: Vital Signs Temp Pulse Resp BP Pulse Ox 97.9 F 105 H 20 H 119/64 92 10/08/20 09:33 10/08/20 09:33 10/08/20 09:33 10/08/20 09:33 10/08/20 09:33 Oxygen Flow Rate (L/min) 60 Oxygen Delivery Method Airvo Weight: 242 lb 3 oz Body Mass Index (BMI) 36.5 Finger Stick Blood Glucose 164 Intake and Output for Last 24 Hours 10/06/20 10/07/20 10/08/20 23:59 23:59 23:59 Intake Total 850 / 970 1200 / 1200 250 / 250 Output Total 750 / 1000 1800 / 1925 425 / 425 Balance 100 / -30 -600 / -725 -175 / -175 Microbiology Past 72 Hours 10/03/20 16:20 Blood Culture (Wb) - Anticubital Left Blood Culture - Preliminary No growth in 48 hours. 10/03/20 20:00 Blood Culture (Wb) - Anticubital Right Blood Culture - Preliminary No growth in 48 hours. Laboratory Results 10/08/20 08:33: Sodium 143, Potassium 4.5, Chloride 109 H, Carbon Dioxide 27.0, Anion Gap 7, BUN 35 H, Creatinine 0.93, Estim Creat Clear Calc 65.38, Est GFR (MDRD) Af Amer 101, Est GFR (MDRD) Non-Af 84, BUN/Creatinine Ratio 37.6 H, Glucose 111 H, Calcium 8.7 Current Medications Acetaminophen (Acetaminophen 325 Mg Tablet) 650 mg PO Q6H PRN PRN PRN Reason: Pain Score 1-10/Temp > 100.7 F Al Hydroxide/Mg Hydroxide (Mag Hydrox/Al Hydrox/Simeth 30 Ml Udc) 30 ml PO Q6H PRN PRN PRN Reason: Gastric Burning Albuterol Sulfate (Albuterol Ih 8.5 Gm (Proair) Inhaler (200 Puffs)) 2 puff INHALATION Q4H [facility] Last Admin: 10/08/20 10:08 Dose: 2 puff Documented by: Apixaban (Apixaban 5 Mg Tablet) 5 mg PO BID [facility] Last Admin: 10/08/20 09:22 Dose: 5 mg Documented by: Atorvastatin Calcium (Atorvastatin Calcium 10 Mg Tablet) 10 mg PO QHS [facility] Last Admin: 10/07/20 22:04 Dose: 10 mg Documented by: Dexamethasone (Dexamethasone 2 Mg Tablet) 6 mg PO DAILY [facility] Last Admin: 10/08/20 09:21 Dose: 6 mg Documented by: Diltiazem HCl (Diltiazem Cd 180 Mg Capsule) 180 mg PO DAILY [facility] Last Admin: 10/08/20 09:22 Dose: 180 mg Documented by: Finasteride (Finasteride 5 Mg Tablet) 5 mg PO DAILY [facility] Last Admin: 10/08/20 09:22 Dose: 5 mg Documented by: Furosemide (Furosemide 20 Mg/2 Ml Vial) 20 mg IV DAILY [facility] Last Admin: 10/08/20 09:21 Dose: 20 mg Documented by: Metoprolol Tartrate (Metoprolol Tartrate 100 Mg Tablet) 100 mg PO BID [facility] Last Admin: 10/08/20 09:22 Dose: 100 mg Documented by: Miscellaneous Information (Inhaler, Assist Devices 1 Each Spacer) 1 each INHALATION PRN PRN PRN Reason: WITH ALBUTEROL INHALER Last Admin: 10/03/20 23:35 Dose: 1 each Documented by: Nitroglycerin (Nitroglycerin (Inpatient Use) 0.4 Mg Tab.Subl) 0.4 mg SUBLINGUAL Q5M PRN PRN Reason: CARDIAC/CHEST PAIN Ondansetron HCl (Ondansetron 4 Mg/2 Ml Vial) 4 mg IV Q8H PRN PRN PRN Reason: NAUSEA/VOMITING Polyethylene Glycol (Polyethylene Glycol 3350 17 Gm Packet) 17 gm PO DAILY [facility] Last Admin: 10/08/20 09:20 Dose: 17 gm Documented by: Senna/Docusate Sodium (Senna/Docusate Sodium 1 Tablet) 2 tablet PO BID [facility] Stop: 10/09/20 12:41 Last Admin: 10/08/20 09:21 Dose: 2 tablet Documented by: Sodium Chloride (0.9% Saline Lock 10 Ml Syringe) 10 - 40 ml IV UD PRN PRN Reason: SALINE FLUSH Last Admin: 10/05/20 19:56 Dose: 10 ml Documented by: Tamsulosin HCl (Tamsulosin Hcl 0.4 Mg Capsule) 0.8 mg PO DAILY@2200 [facility] Last Admin: 10/07/20 22:03 Dose: 0.8 mg Documented by: Throat Lozenges (Benzocaine/Menthol 1 Lozenge) 1 lozenge MUCOUS MEM Q2H PRN PRN PRN Reason: SORE THROAT Last Admin: 10/05/20 21:45 Dose: 1 lozenge Documented by: STROKE Vital Signs/Narrative: Vital Signs Temp Pulse Resp BP Pulse Ox 10/08/20 09:33 97.9 F 105 H 20 H 119/64 92 10/08/20 09:22 122 H 119/64 10/08/20 07:57 105 H Medical Necessity - Tobacco Use Smoking Status: Former smoker Tobacco Use: Non-smoker Assessment/Plan All Active Problems (Last Reviewed 07/25/20 @ 11:17 by Anai CHAMBERS, PA) COVID-19 (Acute) Atrial fibrillation with RVR (Acute) Acute respiratory failure with hypoxia (Acute) H/O oral surgery (Resolved) History of left cataract surgery (Resolved) TIA (transient ischemic attack) (Acute 01/09/19) Left-sided weakness (Acute) Leg edema (Acute) Edema (Acute) 75-year-old gentleman admitted with shortness of breath consistent COVID-19 pneumonia 1. acute hypoxic respiratory failure and COPD exacerbation secondary to COVID-19 pneumonia: On high flow humidified oxygen, AIRVO, BiPAP nightly. Patient had dose of Lasix on 10/05. Currently pulse ox 95% on BiPAP. Net negative fluid balance -1 L. On Lasix 20 mg IV daily. 10/08 mild tachycardic. Mild increase in BUN 35 but creatinine is good. Electrolytes in acceptable limit. 2. acute COVID 19 pneumonia: On dexamethasone and remdesivir. 3. afib w RVR: Heart rate is controlled. On metoprolol diltiazem and Eliquis. 4. hypokalemia: Potassium normal. Magnesium 1.9 on 10/03. Hypokalemia resolved. 5. History of bilateral pulmonary embolism, pulmonary artery hypertension: On Eliquis. 6. Mild constipation: Started on senna S and MiraLAX. Inpatient E&M: [id number] [facility] L2
[2020-10-08] MEDS: Atorvastatin Calcium 10 MG Tablet PO (21:13)
[2020-10-08] MEDS: Menthol/Lanolin/Calamine/Znox 113 GM Tube 1 APPLIC TOPICAL (21:13)
[2020-10-08] MEDS: Acetaminophen 325 MG Tablet 650 MG PO (21:13)
[2020-10-08] MEDS: Tamsulosin HCl 0.4 MG Capsule 0.8 MG PO (21:13)
[2020-10-09] VITALS (27 sets, daily range): BP systolic 85–118; BP diastolic 63–80; PULSE 67–108; RESP 12–24; TEMP 36.4–37; O2SAT 89–97
[2020-10-09] MEDS: LORazepam 2 MG/ML Syringe 0.5 MG IV ×2 (00:40→23:49)
--- NOTE | 2020-10-09 07:27 | PN_ITS ---
Patient Problems: Active and Suspected Problems (Last Reviewed 07/25/20 @ 11:17 by Anai Capellan PA, PA) COVID-19 (Acute) Atrial fibrillation with RVR (Acute) Acute respiratory failure with hypoxia (Acute) Subjective: The patient was seen and examined at the bedside this morning. Events from the last 24 hours have been reviewed. The patient is currently afebrile, hemodynamically stable and maintaining appropriate oxygen saturations on Airvo heated high flow with an FiO2 requirement of 60% and flow rate of 60 L/min. The patient has completed his treatment course of remdesivir and remains on Eliquis and Decadron. The patient is currently documented to be overall net -2.3 L for the hospital admission. Objective: The patient's most recent lab work, culture data and imaging studies have all been personally reviewed. Surface echocardiogram completed in July 2020 revealed normal LV size with an ejection fraction of 65%. Pulmonary artery systolic pressure was estimated to be 38 mmHg. Moderate aortic stenosis was noted. - Physical Exam Vitals/I&O's: Vital Signs Temp Pulse Resp BP Pulse Ox 97.6 F L 97 24 H 107/77 91 10/09/20 07:00 10/09/20 07:00 10/09/20 07:00 10/09/20 07:00 10/09/20 07:00 Oxygen Flow Rate (L/min) 60 Oxygen Delivery Method Airvo Weight: 242 lb 3 oz Body Mass Index (BMI) 36.5 Finger Stick Blood Glucose 164 Intake and Output for Last 24 Hours 10/07/20 10/08/20 10/09/20 23:59 23:59 23:59 Intake Total 1200 / 1200 250 / 250 Output Total 1800 / 1925 950 / 1100 275 / 275 Balance -600 / -725 -700 / -850 -275 / -275 General: Alert, Cooperative, No apparent distress HEENT: Atraumatic, Normocephalic Oral: No Gingival or Mucosal Lesions/ Ulcerations Neck: Supple, No Nodes, Trachea Midline Lungs: Diminished Cardiovascular: Regular rate, Regular Rhythm, Murmur Abdomen: Bowel Sounds Present, Soft, Non Tender, Obese Extremities: No clubbing, No cyanosis, No edema Skin: No breakdown Musculoskeletal: No Tenderness to Palpation of Joints or Extremities Lymphatic: No Cervical, Supraclavicular, or Inguinal Adenopathy Neurological: Cranial nerves II-XII grossly intact, Neuro grossly intact Psych/Mental Status: Normal Affect, Appropriate Labs (Last 48 Hours) 10/08/20 08:33 Sodium 143 Potassium 4.5 Chloride 109 H Carbon Dioxide 27.0 Anion Gap 7 BUN 35 H Creatinine 0.93 Estim Creat Clear Calc 65.38 Est GFR (MDRD) Af Amer 101 Est GFR (MDRD) Non-Af 84 BUN/Creatinine Ratio 37.6 H Glucose 111 H Calcium 8.7 Clinical Impression(s) from Imaging Studies Chest X-Ray 10/03/20 16:35 IMPRESSION: Bilateral pneumonia. Electronically Signed: Andrea Anthony MD at 17:29 EST Tel , Service support , Current Medications Acetaminophen (Acetaminophen 325 Mg Tablet) 650 mg PO Q6H PRN PRN PRN Reason: Pain Score 1-10/Temp > 100.7 F Last Admin: 10/08/20 21:13 Dose: 650 mg Documented by: Al Hydroxide/Mg Hydroxide (Mag Hydrox/Al Hydrox/Simeth 30 Ml Udc) 30 ml PO Q6H PRN PRN PRN Reason: Gastric Burning Albuterol Sulfate (Albuterol Ih 8.5 Gm (Proair) Inhaler (200 Puffs)) 2 puff INHALATION Q4H [facility] Last Admin: 10/09/20 06:06 Dose: 2 puff Documented by: Apixaban (Apixaban 5 Mg Tablet) 5 mg PO BID [facility] Last Admin: 10/08/20 21:15 Dose: 5 mg Documented by: Atorvastatin Calcium (Atorvastatin Calcium 10 Mg Tablet) 10 mg PO QHS [facility] Last Admin: 10/08/20 21:13 Dose: 10 mg Documented by: Calamine/Phenol (Menthol/Lanolin/Calamine/Znox 113 Gm Tube) 1 applic TOPICAL BID [facility]; Protocol Last Admin: 10/08/20 21:13 Dose: 1 applicatio Documented by: Dexamethasone (Dexamethasone 2 Mg Tablet) 6 mg PO DAILY [facility] Last Admin: 10/08/20 09:21 Dose: 6 mg Documented by: Diltiazem HCl (Diltiazem Cd 180 Mg Capsule) 180 mg PO DAILY [facility] Last Admin: 10/08/20 09:22 Dose: 180 mg Documented by: Finasteride (Finasteride 5 Mg Tablet) 5 mg PO DAILY [facility] Last Admin: 10/08/20 09:22 Dose: 5 mg Documented by: Furosemide (Furosemide 20 Mg/2 Ml Vial) 20 mg IV DAILY [facility] Last Admin: 10/08/20 09:21 Dose: 20 mg Documented by: Lorazepam (Lorazepam 2 Mg/Ml Syringe) 0.5 mg IV Q4H PRN PRN PRN Reason: severe agitation w/BIPAP use Last Admin: 10/09/20 00:40 Dose: 0.5 mg Documented by: Metoprolol Tartrate (Metoprolol Tartrate 100 Mg Tablet) 100 mg PO BID [facility] Last Admin: 10/08/20 21:14 Dose: 100 mg Documented by: Miscellaneous Information (Inhaler, Assist Devices 1 Each Spacer) 1 each INHALATION PRN PRN PRN Reason: WITH ALBUTEROL INHALER Last Admin: 10/03/20 23:35 Dose: 1 each Documented by: Nitroglycerin (Nitroglycerin (Inpatient Use) 0.4 Mg Tab.Subl) 0.4 mg SUBLINGUAL Q5M PRN PRN Reason: CARDIAC/CHEST PAIN Ondansetron HCl (Ondansetron 4 Mg/2 Ml Vial) 4 mg IV Q8H PRN PRN PRN Reason: NAUSEA/VOMITING Polyethylene Glycol (Polyethylene Glycol 3350 17 Gm Packet) 17 gm PO DAILY [facility] Last Admin: 10/08/20 09:20 Dose: 17 gm Documented by: Senna/Docusate Sodium (Senna/Docusate Sodium 1 Tablet) 2 tablet PO BID [facility] Stop: 10/09/20 12:41 Last Admin: 10/08/20 21:14 Dose: 2 tablet Documented by: Sodium Chloride (0.9% Saline Lock 10 Ml Syringe) 10 - 40 ml IV UD PRN PRN Reason: SALINE FLUSH Last Admin: 10/05/20 19:56 Dose: 10 ml Documented by: Tamsulosin HCl (Tamsulosin Hcl 0.4 Mg Capsule) 0.8 mg PO DAILY@2200 [facility] Last Admin: 10/08/20 21:13 Dose: 0.8 mg Documented by: Throat Lozenges (Benzocaine/Menthol 1 Lozenge) 1 lozenge MUCOUS MEM Q2H PRN PRN PRN Reason: SORE THROAT Last Admin: 10/05/20 21:45 Dose: 1 lozenge Documented by: Medical Necessity - Tobacco Use Smoking Status: Former smoker Tobacco Use: Non-smoker Assessment/Plan All Active Problems (Last Reviewed 07/25/20 @ 11:17 by Anai Capellan PA, PA) COVID-19 (Acute) Atrial fibrillation with RVR (Acute) Acute respiratory failure with hypoxia (Acute) H/O oral surgery (Resolved) History of left cataract surgery (Resolved) TIA (transient ischemic attack) (Acute 01/09/19) Left-sided weakness (Acute) Leg edema (Acute) Edema (Acute) RECOMMENDATIONS: 1. Continue supplemental oxygen and wean FiO2 to maintain saturations at or above 90%. 2. Continue noninvasive positive pressure ventilatory support nightly. 3. Continue Decadron to complete 10-day treatment course. 4. Continue systemic anticoagulation with Eliquis. 5. Continue gentle diuresis as tolerated by hemodynamics and renal function. Will give additional dose of Lasix today. 6. Encourage incentive spirometer use and mobilize patient as tolerated. IMPRESSIONS: 1. Acute hypoxic respiratory failure secondary to COVID-19 pneumonia/COPD exacerbation Stable at this time on heated high flow supplemental oxygen. The patient does have significant bilateral infiltrates on chest imaging. The patient has completed his treatment course of remdesivir and will remain on Decadron to complete a 10-day course. The patient will also be continued on systemic anticoagulation with Eliquis along with IV diuretic therapy as tolerated by hemodynamics and renal function. Continue to wean FiO2 to maintain oxygen saturations at or above 90%. 2. A. fib with RVR/cor pulmonale Continue baseline cardiac medications and diuretic therapy. Hemodynamics remained stable. 3. BPH/hyperlipidemia/advanced age/obesity Complicates care, management, recovery and prognosis. Continue home medications as indicated. This note was generated with [employer] dictation software. It may contain incorrect words, spelling, and punctuation that were not noted in checking the note before signing. Inpatient E&M: [id number] [facility] L3
[2020-10-09] MEDS: Furosemide 40 MG/4 ML Vial IV (08:19)
[2020-10-09] MEDS: Menthol/Lanolin/Calamine/Znox 113 GM Tube 1 APPLIC TOPICAL ×2 (08:33→20:34)
[2020-10-09] MEDS: APIXABAN 5 MG TABLET PO ×2 (08:34→20:27)
[2020-10-09] MEDS: dilTIAZem CD 180 MG Capsule PO (08:34)
[2020-10-09] MEDS: Finasteride 5 MG Tablet PO (08:36)
[2020-10-09] MEDS: dexAMETHasone 2 MG TABLET 6 MG PO (08:36)
[2020-10-09] MEDS: Furosemide 20 MG/2 ML VIAL IV (08:36)
[2020-10-09] MEDS: 0.9% Saline Lock 10 ML Syringe IV (08:37)
[2020-10-09] MEDS: Senna/Docusate Sodium 1 Tablet 2 TABLET PO (08:37)
[2020-10-09] MEDS: Metoprolol Tartrate 100 MG Tablet PO ×2 (08:37→20:27)
--- NOTE | 2020-10-09 11:59 | PCM.PN.HOSP ---
Patient Problems: Active and Suspected Problems (Last Reviewed 07/25/20 @ 11:17 by Anai Capellan PA, PA) COVID-19 (Acute) Atrial fibrillation with RVR (Acute) Acute respiratory failure with hypoxia (Acute) Reason for Visit: Follow-up for acute hypoxic respiratory failure secondary to pneumonia. Objective: Patient is still on high flow humidified oxygen, 60% FiO2, pulse ox 93%. No fever. Mild cough. Physical exam: General: Alert, Oriented x3, Cooperative. Morbid obesity 36.8 kg/m? HEENT: Atraumatic, PERRLA, EOMI, Normocephalic Oral: No Gingival or Mucosal Lesions/ Ulcerations Neck: Supple, No JVD, Negative Carotid Bruits Lungs: Air entry diminished in bilateral lung bases. No crepitation/rhonchi Cardiovascular: Regular rate, Regular Rhythm, Normal S1, Normal S2, No murmurs Abdomen: Bowel Sounds Present, Soft, Non Tender, Non-Distended : No renal angle tenderness. No suprapubic tenderness. Extremities: No edema, Capillary Refill Less than 3 Seconds Skin: No rashes, No breakdown Musculoskeletal: No Tenderness to Palpation of Joints or Extremities Neurological: Cranial nerves II-XII grossly intact, Deep Tendon Reflexes 2+/4 and Symmetrical, Neuro grossly intact Psych/Mental Status: Normal Affect, Appropriate. Vitals/I&O's: Vital Signs Temp Pulse Resp BP Pulse Ox 97.9 F 94 18 102/80 93 10/09/20 10:00 10/09/20 10:10 10/09/20 10:00 10/09/20 10:00 10/09/20 10:00 Oxygen Flow Rate (L/min) 94 Oxygen Delivery Method Airvo Weight: 242 lb 3 oz Body Mass Index (BMI) 36.5 Finger Stick Blood Glucose 164 Intake and Output for Last 24 Hours 10/07/20 10/08/20 10/09/20 23:59 23:59 23:59 Intake Total 1200 / 1200 250 / 250 Output Total 1800 / 1925 950 / 1100 875 / 875 Balance -600 / -725 -700 / -850 -875 / -875 Microbiology Past 72 Hours 10/03/20 16:20 Blood Culture (Wb) - Anticubital Left Blood Culture - Final No growth in 5 days. 10/03/20 20:00 Blood Culture (Wb) - Anticubital Right Blood Culture - Final No growth in 5 days. Current Medications Acetaminophen (Acetaminophen 325 Mg Tablet) 650 mg PO Q6H PRN PRN PRN Reason: Pain Score 1-10/Temp > 100.7 F Last Admin: 10/08/20 21:13 Dose: 650 mg Documented by: Al Hydroxide/Mg Hydroxide (Mag Hydrox/Al Hydrox/Simeth 30 Ml Udc) 30 ml PO Q6H PRN PRN PRN Reason: Gastric Burning Albuterol Sulfate (Albuterol Ih 8.5 Gm (Proair) Inhaler (200 Puffs)) 2 puff INHALATION Q4H [facility] Last Admin: 10/09/20 08:36 Dose: 2 puff Documented by: Apixaban (Apixaban 5 Mg Tablet) 5 mg PO BID [facility] Last Admin: 10/09/20 08:34 Dose: 5 mg Documented by: Atorvastatin Calcium (Atorvastatin Calcium 10 Mg Tablet) 10 mg PO QHS [facility] Last Admin: 10/08/20 21:13 Dose: 10 mg Documented by: Calamine/Phenol (Menthol/Lanolin/Calamine/Znox 113 Gm Tube) 1 applic TOPICAL BID [facility]; Protocol Last Admin: 10/09/20 08:33 Dose: 1 applicatio Documented by: Dexamethasone (Dexamethasone 2 Mg Tablet) 6 mg PO DAILY [facility] Last Admin: 10/09/20 08:36 Dose: 6 mg Documented by: Diltiazem HCl (Diltiazem Cd 180 Mg Capsule) 180 mg PO DAILY [facility] Last Admin: 10/09/20 08:34 Dose: 180 mg Documented by: Finasteride (Finasteride 5 Mg Tablet) 5 mg PO DAILY [facility] Last Admin: 10/09/20 08:36 Dose: 5 mg Documented by: Furosemide (Furosemide 20 Mg/2 Ml Vial) 20 mg IV DAILY [facility] Last Admin: 10/09/20 08:36 Dose: 20 mg Documented by: Lorazepam (Lorazepam 2 Mg/Ml Syringe) 0.5 mg IV Q4H PRN PRN PRN Reason: severe agitation w/BIPAP use Last Admin: 10/09/20 00:40 Dose: 0.5 mg Documented by: Metoprolol Tartrate (Metoprolol Tartrate 100 Mg Tablet) 100 mg PO BID [facility] Last Admin: 10/09/20 08:37 Dose: 100 mg Documented by: Miscellaneous Information (Inhaler, Assist Devices 1 Each Spacer) 1 each INHALATION PRN PRN PRN Reason: WITH ALBUTEROL INHALER Last Admin: 10/03/20 23:35 Dose: 1 each Documented by: Nitroglycerin (Nitroglycerin (Inpatient Use) 0.4 Mg Tab.Subl) 0.4 mg SUBLINGUAL Q5M PRN PRN Reason: CARDIAC/CHEST PAIN Ondansetron HCl (Ondansetron 4 Mg/2 Ml Vial) 4 mg IV Q8H PRN PRN PRN Reason: NAUSEA/VOMITING Polyethylene Glycol (Polyethylene Glycol 3350 17 Gm Packet) 17 gm PO DAILY [facility] Last Admin: 10/09/20 08:36 Dose: Not Given Documented by: Senna/Docusate Sodium (Senna/Docusate Sodium 1 Tablet) 2 tablet PO BID [facility] Stop: 10/09/20 12:41 Last Admin: 10/09/20 08:37 Dose: 2 tablet Documented by: Sodium Chloride (0.9% Saline Lock 10 Ml Syringe) 10 - 40 ml IV UD PRN PRN Reason: SALINE FLUSH Last Admin: 10/09/20 08:37 Dose: 10 ml Documented by: Tamsulosin HCl (Tamsulosin Hcl 0.4 Mg Capsule) 0.8 mg PO DAILY@2200 [facility] Last Admin: 10/08/20 21:13 Dose: 0.8 mg Documented by: Throat Lozenges (Benzocaine/Menthol 1 Lozenge) 1 lozenge MUCOUS MEM Q2H PRN PRN PRN Reason: SORE THROAT Last Admin: 10/05/20 21:45 Dose: 1 lozenge Documented by: STROKE Vital Signs/Narrative: Vital Signs Temp Pulse Resp BP Pulse Ox 10/09/20 10:10 94 10/09/20 10:00 97.9 F 98 18 102/80 93 10/09/20 08:37 96 10/09/20 08:27 20 H 10/09/20 08:00 97.9 F 96 20 H 104/77 92 Medical Necessity - Tobacco Use Smoking Status: Former smoker Tobacco Use: Non-smoker Assessment/Plan All Active Problems (Last Reviewed 07/25/20 @ 11:17 by Anai Capellan PA, PA) COVID-19 (Acute) Atrial fibrillation with RVR (Acute) Acute respiratory failure with hypoxia (Acute) H/O oral surgery (Resolved) History of left cataract surgery (Resolved) TIA (transient ischemic attack) (Acute 01/09/19) Left-sided weakness (Acute) Leg edema (Acute) Edema (Acute) 75-year-old gentleman admitted with shortness of breath consistent COVID-19 pneumonia 1. acute hypoxic respiratory failure and COPD exacerbation secondary to COVID-19 pneumonia: On high flow humidified oxygen, AIRVO, BiPAP nightly. Patient had dose of Lasix on 10/05. Currently pulse ox 95% on BiPAP. Net negative fluid balance -1 L. On Lasix 20 mg IV daily. 10/08 mild tachycardic. Mild increase in BUN 35 but creatinine is good. Electrolytes in acceptable limit. 10/09: Patient is still on humidified high flow oxygen. BUN/creatinine on baseline. K4.5. Continue low-dose Lasix 20 mg IV daily. 2. acute COVID 19 pneumonia: On dexamethasone and remdesivir. 3. afib w RVR: Heart rate is controlled. On metoprolol diltiazem and Eliquis. 4. hypokalemia: Potassium normal. Magnesium 1.9 on 10/03. Hypokalemia resolved. 5. History of bilateral pulmonary embolism, pulmonary artery hypertension: On Eliquis. 6. Mild constipation: Started on senna S and MiraLAX. 10/09: Patient had good bowel movement. Inpatient E&M: [id number] [facility] Hosp L2
[2020-10-09] MEDS: Tamsulosin HCl 0.4 MG Capsule 0.8 MG PO (20:27)
[2020-10-09] MEDS: Atorvastatin Calcium 10 MG Tablet PO (20:27)
[2020-10-10] VITALS (21 sets, daily range): BP systolic 98–120; BP diastolic 59–85; PULSE 71–109; RESP 12–22; TEMP 36–36.8; O2SAT 84–96
--- NOTE | 2020-10-10 07:40 | PCM.PN.HOSP ---
Patient Problems: Active and Suspected Problems (Last Reviewed 07/25/20 @ 11:17 by Anai Capellan PA, PA) COVID-19 (Acute) Atrial fibrillation with RVR (Acute) Acute respiratory failure with hypoxia (Acute) Reason for Visit: Follow-up for acute hypoxic respiratory failure secondary to COVID-19 pneumonia Objective: Patient is still on humidified high flow oxygen 88% FiO2, 60 L/min. Heart rate and blood pressure are controlled. No fever Physical exam Physical exam: General: Alert, Oriented x3, Cooperative. Morbid obesity 36.8 kg/m? HEENT: Atraumatic, PERRLA, EOMI, Normocephalic Oral: No Gingival or Mucosal Lesions/ Ulcerations Neck: Supple, No JVD, Negative Carotid Bruits Lungs: Air entry diminished in bilateral lung bases. Mild bilateral lower lobes coarse crepitations. Cardiovascular: Regular rate, Regular Rhythm, Normal S1, Normal S2, No murmurs Abdomen: Bowel Sounds Present, Soft, Non Tender, Non-Distended : No renal angle tenderness. No suprapubic tenderness. Extremities: No edema, Capillary Refill Less than 3 Seconds Skin: No rashes, No breakdown Musculoskeletal: No Tenderness to Palpation of Joints or Extremities Neurological: Cranial nerves II-XII grossly intact, Deep Tendon Reflexes 2+/4 and Symmetrical, Neuro grossly intact Psych/Mental Status: Normal Affect, Appropriate. Vitals/I&O's: Vital Signs Temp Pulse Resp BP Pulse Ox 98.3 F 88 19 H 109/64 95 10/10/20 06:00 10/10/20 06:00 10/10/20 06:00 10/10/20 06:00 10/10/20 06:00 Oxygen Flow Rate (L/min) 60 Oxygen Delivery Method Airvo Weight: 234 lb 2.095 oz Body Mass Index (BMI) 36.5 Finger Stick Blood Glucose 164 Intake and Output for Last 24 Hours 10/08/20 10/09/20 10/10/20 23:59 23:59 23:59 Intake Total 250 / 250 Output Total 950 / 1100 875 / 1075 600 / 600 Balance -700 / -850 -875 / -1075 -600 / -600 Microbiology Past 72 Hours 10/03/20 16:20 Blood Culture (Wb) - Anticubital Left Blood Culture - Final No growth in 5 days. 10/03/20 20:00 Blood Culture (Wb) - Anticubital Right Blood Culture - Final No growth in 5 days. Current Medications Acetaminophen (Acetaminophen 325 Mg Tablet) 650 mg PO Q6H PRN PRN PRN Reason: Pain Score 1-10/Temp > 100.7 F Last Admin: 10/08/20 21:13 Dose: 650 mg Documented by: Al Hydroxide/Mg Hydroxide (Mag Hydrox/Al Hydrox/Simeth 30 Ml Udc) 30 ml PO Q6H PRN PRN PRN Reason: Gastric Burning Albuterol Sulfate (Albuterol Ih 8.5 Gm (Proair) Inhaler (200 Puffs)) 2 puff INHALATION Q4H [facility] Last Admin: 10/10/20 05:24 Dose: 2 puff Documented by: Apixaban (Apixaban 5 Mg Tablet) 5 mg PO BID [facility] Last Admin: 10/09/20 20:27 Dose: 5 mg Documented by: Atorvastatin Calcium (Atorvastatin Calcium 10 Mg Tablet) 10 mg PO QHS [facility] Last Admin: 10/09/20 20:27 Dose: 10 mg Documented by: Calamine/Phenol (Menthol/Lanolin/Calamine/Znox 113 Gm Tube) 1 applic TOPICAL BID [facility]; Protocol Last Admin: 10/09/20 20:34 Dose: 1 applicatio Documented by: Dexamethasone (Dexamethasone 2 Mg Tablet) 6 mg PO DAILY [facility] Last Admin: 10/09/20 08:36 Dose: 6 mg Documented by: Diltiazem HCl (Diltiazem Cd 180 Mg Capsule) 180 mg PO DAILY [facility] Last Admin: 10/09/20 08:34 Dose: 180 mg Documented by: Finasteride (Finasteride 5 Mg Tablet) 5 mg PO DAILY [facility] Last Admin: 10/09/20 08:36 Dose: 5 mg Documented by: Furosemide (Furosemide 20 Mg/2 Ml Vial) 20 mg IV DAILY [facility] Last Admin: 10/09/20 08:36 Dose: 20 mg Documented by: Lorazepam (Lorazepam 2 Mg/Ml Syringe) 0.5 mg IV Q4H PRN PRN PRN Reason: severe agitation w/BIPAP use Last Admin: 10/09/20 23:49 Dose: 0.5 mg Documented by: Metoprolol Tartrate (Metoprolol Tartrate 100 Mg Tablet) 100 mg PO BID [facility] Last Admin: 10/09/20 20:27 Dose: 100 mg Documented by: Miscellaneous Information (Inhaler, Assist Devices 1 Each Spacer) 1 each INHALATION PRN PRN PRN Reason: WITH ALBUTEROL INHALER Last Admin: 10/03/20 23:35 Dose: 1 each Documented by: Nitroglycerin (Nitroglycerin (Inpatient Use) 0.4 Mg Tab.Subl) 0.4 mg SUBLINGUAL Q5M PRN PRN Reason: CARDIAC/CHEST PAIN Ondansetron HCl (Ondansetron 4 Mg/2 Ml Vial) 4 mg IV Q8H PRN PRN PRN Reason: NAUSEA/VOMITING Polyethylene Glycol (Polyethylene Glycol 3350 17 Gm Packet) 17 gm PO DAILY [facility] Last Admin: 10/09/20 08:36 Dose: Not Given Documented by: Sodium Chloride (0.9% Saline Lock 10 Ml Syringe) 10 - 40 ml IV UD PRN PRN Reason: SALINE FLUSH Last Admin: 10/09/20 08:37 Dose: 10 ml Documented by: Tamsulosin HCl (Tamsulosin Hcl 0.4 Mg Capsule) 0.8 mg PO DAILY@2200 [facility] Last Admin: 10/09/20 20:27 Dose: 0.8 mg Documented by: Throat Lozenges (Benzocaine/Menthol 1 Lozenge) 1 lozenge MUCOUS MEM Q2H PRN PRN PRN Reason: SORE THROAT Last Admin: 10/05/20 21:45 Dose: 1 lozenge Documented by: STROKE Vital Signs/Narrative: Vital Signs Temp Pulse Resp BP Pulse Ox 10/10/20 06:00 98.3 F 88 19 H 109/64 95 10/10/20 04:36 71 20 H 93 10/10/20 04:00 82 Medical Necessity - Tobacco Use Smoking Status: Former smoker Tobacco Use: Non-smoker Assessment/Plan All Active Problems (Last Reviewed 07/25/20 @ 11:17 by Anai CHAMBERS, PA) COVID-19 (Acute) Atrial fibrillation with RVR (Acute) Acute respiratory failure with hypoxia (Acute) H/O oral surgery (Resolved) History of left cataract surgery (Resolved) TIA (transient ischemic attack) (Acute 01/09/19) Left-sided weakness (Acute) Leg edema (Acute) Edema (Acute) 75-year-old gentleman admitted with shortness of breath consistent COVID-19 pneumonia 1. acute hypoxic respiratory failure and COPD exacerbation secondary to COVID-19 pneumonia: On high flow humidified oxygen, AIRVO, BiPAP nightly. Patient had dose of Lasix on 10/05. Currently pulse ox 95% on BiPAP. Net negative fluid balance -1 L. On Lasix 20 mg IV daily. 10/08 mild tachycardic. Mild increase in BUN 35 but creatinine is good. Electrolytes in acceptable limit. 10/09: Patient is still on humidified high flow oxygen. BUN/creatinine on baseline. K4.5. Continue low-dose Lasix 20 mg IV daily. 10/10: Patient is negative -3.5 L fluid balance. Continue bronchopulmonary hygiene PEP and incentive spirometry. On humidified high flow oxygen. Patient completed remdesivir on 10/07. 2. acute COVID 19 pneumonia: On dexamethasone and remdesivir. 3. afib w RVR: Heart rate is controlled. On metoprolol diltiazem and Eliquis. 4. hypokalemia: Potassium normal. Magnesium 1.9 on 10/03. Hypokalemia resolved. 10/10: Serum electrolytes are in normal range 5. History of bilateral pulmonary embolism, pulmonary artery hypertension: On Eliquis. 6. Mild constipation: Started on senna S and MiraLAX. 10/09: Patient had good bowel movement. Inpatient E&M: [id number] [facility] Hosp L2
--- NOTE | 2020-10-10 08:08 | PN_ITS ---
Patient Problems: Active and Suspected Problems (Last Reviewed 07/25/20 @ 11:17 by Anai Capellan PA, PA) COVID-19 (Acute) Atrial fibrillation with RVR (Acute) Acute respiratory failure with hypoxia (Acute) Subjective: The patient was seen and examined at the bedside this morning. Events from the last 24 hours have been reviewed. The patient is currently afebrile, hemodynamically stable and maintaining appropriate oxygen saturations on Airvo heated high flow oxygen with an FiO2 requirement of 88% and flow rate of 60 L/ min. The patient remains systemically anticoagulated on Eliquis. He also remains on Decadron and IV Lasix. Renal function is stable. The patient is currently documented to be overall net -3.5 L for the hospital admission. Per the patient, he did wear BiPAP overnight for approximately 3 hours. Objective: The patient's most recent lab work, culture data and imaging studies have all been personally reviewed. Surface echocardiogram completed in July 2020 revealed normal LV size with an ejection fraction of 65%. Pulmonary artery systolic pressure was estimated to be 38 mmHg. Moderate aortic stenosis was noted. - Physical Exam Vitals/I&O's: Vital Signs Temp Pulse Resp BP Pulse Ox 98.3 F 103 H 19 H 109/64 95 10/10/20 06:00 10/10/20 07:46 10/10/20 06:00 10/10/20 06:00 10/10/20 06:00 Oxygen Flow Rate (L/min) 60 Oxygen Delivery Method Airvo Weight: 234 lb 2.095 oz Body Mass Index (BMI) 36.5 Finger Stick Blood Glucose 164 Intake and Output for Last 24 Hours 10/08/20 10/09/20 10/10/20 23:59 23:59 23:59 Intake Total 250 / 250 Output Total 950 / 1100 875 / 1075 600 / 600 Balance -700 / -850 -875 / -1075 -600 / -600 General: Alert, Cooperative, No apparent distress HEENT: Atraumatic, PERRLA, Normocephalic Oral: Moist Mucosa, No Gingival or Mucosal Lesions/ Ulcerations Neck: Supple, No Nodes, Trachea Midline Lungs: No rhonchi, No wheeze, No rales, Diminished Cardiovascular: Regular rate, Regular Rhythm, Murmur Abdomen: Bowel Sounds Present, Soft, Non Tender Extremities: No clubbing, No cyanosis, No edema Skin: No breakdown Musculoskeletal: No Tenderness to Palpation of Joints or Extremities Lymphatic: No Cervical, Supraclavicular, or Inguinal Adenopathy Neurological: Cranial nerves II-XII grossly intact, Neuro grossly intact Psych/Mental Status: Alert and oriented to time, place, person, mood and affect Labs (Last 48 Hours) 10/08/20 08:33 Sodium 143 Potassium 4.5 Chloride 109 H Carbon Dioxide 27.0 Anion Gap 7 BUN 35 H Creatinine 0.93 Estim Creat Clear Calc 65.38 Est GFR (MDRD) Af Amer 101 Est GFR (MDRD) Non-Af 84 BUN/Creatinine Ratio 37.6 H Glucose 111 H Calcium 8.7 Microbiology 10/03/20 16:20 Blood Culture (Wb) - Anticubital Left Blood Culture - Final No growth in 5 days. 10/03/20 20:00 Blood Culture (Wb) - Anticubital Right Blood Culture - Final No growth in 5 days. Current Medications Acetaminophen (Acetaminophen 325 Mg Tablet) 650 mg PO Q6H PRN PRN PRN Reason: Pain Score 1-10/Temp > 100.7 F Last Admin: 10/08/20 21:13 Dose: 650 mg Documented by: Al Hydroxide/Mg Hydroxide (Mag Hydrox/Al Hydrox/Simeth 30 Ml Udc) 30 ml PO Q6H PRN PRN PRN Reason: Gastric Burning Albuterol Sulfate (Albuterol Ih 8.5 Gm (Proair) Inhaler (200 Puffs)) 2 puff INHALATION Q4H [facility] Last Admin: 10/10/20 05:24 Dose: 2 puff Documented by: Apixaban (Apixaban 5 Mg Tablet) 5 mg PO BID [facility] Last Admin: 10/09/20 20:27 Dose: 5 mg Documented by: Atorvastatin Calcium (Atorvastatin Calcium 10 Mg Tablet) 10 mg PO QHS [facility] Last Admin: 10/09/20 20:27 Dose: 10 mg Documented by: Calamine/Phenol (Menthol/Lanolin/Calamine/Znox 113 Gm Tube) 1 applic TOPICAL BID [facility]; Protocol Last Admin: 10/09/20 20:34 Dose: 1 applicatio Documented by: Dexamethasone (Dexamethasone 2 Mg Tablet) 6 mg PO DAILY [facility] Last Admin: 10/09/20 08:36 Dose: 6 mg Documented by: Diltiazem HCl (Diltiazem Cd 180 Mg Capsule) 180 mg PO DAILY [facility] Last Admin: 10/09/20 08:34 Dose: 180 mg Documented by: Finasteride (Finasteride 5 Mg Tablet) 5 mg PO DAILY [facility] Last Admin: 10/09/20 08:36 Dose: 5 mg Documented by: Furosemide (Furosemide 20 Mg/2 Ml Vial) 20 mg IV DAILY [facility] Last Admin: 10/09/20 08:36 Dose: 20 mg Documented by: Lorazepam (Lorazepam 2 Mg/Ml Syringe) 0.5 mg IV Q4H PRN PRN PRN Reason: severe agitation w/BIPAP use Last Admin: 10/09/20 23:49 Dose: 0.5 mg Documented by: Metoprolol Tartrate (Metoprolol Tartrate 100 Mg Tablet) 100 mg PO BID [facility] Last Admin: 10/09/20 20:27 Dose: 100 mg Documented by: Miscellaneous Information (Inhaler, Assist Devices 1 Each Spacer) 1 each INHALATION PRN PRN PRN Reason: WITH ALBUTEROL INHALER Last Admin: 10/03/20 23:35 Dose: 1 each Documented by: Nitroglycerin (Nitroglycerin (Inpatient Use) 0.4 Mg Tab.Subl) 0.4 mg SUBLINGUAL Q5M PRN PRN Reason: CARDIAC/CHEST PAIN Ondansetron HCl (Ondansetron 4 Mg/2 Ml Vial) 4 mg IV Q8H PRN PRN PRN Reason: NAUSEA/VOMITING Polyethylene Glycol (Polyethylene Glycol 3350 17 Gm Packet) 17 gm PO DAILY [facility] Last Admin: 10/09/20 08:36 Dose: Not Given Documented by: Sodium Chloride (0.9% Saline Lock 10 Ml Syringe) 10 - 40 ml IV UD PRN PRN Reason: SALINE FLUSH Last Admin: 10/09/20 08:37 Dose: 10 ml Documented by: Tamsulosin HCl (Tamsulosin Hcl 0.4 Mg Capsule) 0.8 mg PO DAILY@2200 [facility] Last Admin: 10/09/20 20:27 Dose: 0.8 mg Documented by: Throat Lozenges (Benzocaine/Menthol 1 Lozenge) 1 lozenge MUCOUS MEM Q2H PRN PRN PRN Reason: SORE THROAT Last Admin: 10/05/20 21:45 Dose: 1 lozenge Documented by: Medical Necessity - Tobacco Use Smoking Status: Former smoker Tobacco Use: Non-smoker Assessment/Plan All Active Problems (Last Reviewed 07/25/20 @ 11:17 by Anai Capellan PA, PA) COVID-19 (Acute) Atrial fibrillation with RVR (Acute) Acute respiratory failure with hypoxia (Acute) H/O oral surgery (Resolved) History of left cataract surgery (Resolved) TIA (transient ischemic attack) (Acute 01/09/19) Left-sided weakness (Acute) Leg edema (Acute) Edema (Acute) RECOMMENDATIONS: 1. Continue supplemental oxygen and wean FiO2 to maintain saturations at or above 90%. 2. Continue noninvasive positive pressure ventilatory support nightly. 3. Continue Decadron to complete 10-day treatment course. 4. Continue systemic anticoagulation with Eliquis. 5. Continue gentle diuresis as tolerated by hemodynamics and renal function. Recheck BMP this morning 6. Encourage incentive spirometer use and mobilize patient as tolerated. IMPRESSIONS: 1. Acute hypoxic respiratory failure secondary to COVID-19 pneumonia/COPD exacerbation Stable at this time on heated high flow supplemental oxygen. The patient does have significant bilateral infiltrates on chest imaging. The patient has completed his treatment course of remdesivir and will remain on Decadron to complete a 10-day course. The patient will also be continued on systemic anticoagulation with Eliquis along with IV diuretic therapy as tolerated by hemodynamics and renal function. Continue to wean FiO2 to maintain oxygen saturations at or above 90%. 2. A. fib with RVR/cor pulmonale Continue baseline cardiac medications and diuretic therapy. Hemodynamics remain stable. 3. BPH/hyperlipidemia/advanced age/obesity Complicates care, management, recovery and prognosis. Continue home medications as indicated. This note was generated with [employer] dictation software. It may contain incorrect words, spelling, and punctuation that were not noted in checking the note before signing. Inpatient E&M: [id number] Subs Hosp L3
[2020-10-10 09:25] LABS: Anion Gap 6 (5-15); BUN 12 mg/dL (7-18); BUN/Creat Ratio 12.8 RATIO (10-20); Calcium,Total 8.7 mg/dL (8.5-10.1); Chloride 106 mmol/L (98-107); Creatinine, Serum 0.94 mg/dL (0.70-1.30); EST Glomerular Filtration Rate 83 mL/min (>60); Est Glom Filt Rate - Afr Amer 101 mL/min (>60); Estimated Creatinine Clearance 64.68 ml/min; Glucose 108 mg/dL (74-106); Sodium Level 141 mmol/L (136-145)
[2020-10-10] MEDS: dexAMETHasone 2 MG TABLET 6 MG PO (11:07)
[2020-10-10] MEDS: Furosemide 20 MG/2 ML VIAL IV (11:10)
[2020-10-10] MEDS: Finasteride 5 MG Tablet PO (11:10)
[2020-10-10] MEDS: APIXABAN 5 MG TABLET PO ×2 (11:10→20:07)
[2020-10-10] MEDS: Metoprolol Tartrate 100 MG Tablet PO ×2 (11:10→20:06)
[2020-10-10] MEDS: 0.9% Saline Lock 10 ML Syringe IV ×2 (11:11→22:54)
[2020-10-10] MEDS: Menthol/Lanolin/Calamine/Znox 113 GM Tube 1 APPLIC TOPICAL ×2 (11:16→20:07)
[2020-10-10] MEDS: Tamsulosin HCl 0.4 MG Capsule 0.8 MG PO (20:06)
[2020-10-10] MEDS: Atorvastatin Calcium 10 MG Tablet PO (20:06)
[2020-10-10] MEDS: LORazepam 2 MG/ML Syringe 0.5 MG IV (22:53)
[2020-10-11] VITALS (22 sets, daily range): BP systolic 109–142; BP diastolic 65–91; PULSE 74–147; RESP 12–23; TEMP 36.1–36.3; O2SAT 86–96
--- NOTE | 2020-10-11 06:30 | PN_ITS ---
Patient Problems: Active and Suspected Problems (Last Reviewed 07/25/20 @ 11:17 by Anai Capellan PA, PA) COVID-19 (Acute) Atrial fibrillation with RVR (Acute) Acute respiratory failure with hypoxia (Acute) Subjective: The patient was seen and examined at the bedside this morning. Events from the last 24 hours have been reviewed. The patient is currently afebrile, hemodynamically stable and maintaining appropriate oxygen saturations on Airvo with an FiO2 requirement of 67% and flow rate of 60 L/min. The patient has pr eviously completed his treatment course of remdesivir and remains on Eliquis, Decadron and scheduled Lasix. He is currently documented to be overall net -3.6 L for the hospital admission. Renal function is stable. Objective: The patient's most recent lab work, culture data and imaging studies have all been personally reviewed. Surface echocardiogram completed in July 2020 revealed normal LV size with an ejection fraction of 65%. Pulmonary artery systolic pressure was estimated to be 38 mmHg. Moderate aortic stenosis was noted. - Physical Exam Vitals/I&O's: Vital Signs Temp Pulse Resp BP Pulse Ox 97 F L 93 18 142/91 H 93 10/11/20 03:30 10/11/20 04:15 10/11/20 04:15 10/11/20 03:30 10/11/20 04:15 Oxygen Flow Rate (L/min) 60 Oxygen Delivery Method Airvo Weight: 232 lb 2.348 oz Body Mass Index (BMI) 36.5 Finger Stick Blood Glucose 164 Intake and Output for Last 24 Hours 10/09/20 10/10/20 10/11/20 23:59 23:59 23:59 Intake Total 750 / 990 240 / 240 Output Total 875 / 1075 1400 / 1400 300 / 300 Balance -875 / -1075 -650 / -410 -60 / -60 General: Alert, Cooperative, No apparent distress HEENT: Atraumatic, PERRLA, Normocephalic Oral: No Gingival or Mucosal Lesions/ Ulcerations Neck: Supple, No Nodes, Trachea Midline Lungs: No rhonchi, No wheeze, No rales, Diminished Cardiovascular: Regular rate, Regular Rhythm, Murmur Abdomen: Bowel Sounds Present, Soft, Non Tender, Obese Extremities: No clubbing, No cyanosis, No edema Skin: No breakdown Musculoskeletal: No Tenderness to Palpation of Joints or Extremities Lymphatic: No Cervical, Supraclavicular, or Inguinal Adenopathy Neurological: Cranial nerves II-XII grossly intact, Neuro grossly intact Psych/Mental Status: Alert and oriented to time, place, person, mood and affect Labs (Last 48 Hours) 10/10/20 08:45 Sodium 141 Potassium 4.0 Chloride 106 Carbon Dioxide 29.0 Anion Gap 6 BUN 12 Creatinine 0.94 Estim Creat Clear Calc 64.68 Est GFR (MDRD) Af Amer 101 Est GFR (MDRD) Non-Af 83 BUN/Creatinine Ratio 12.8 Glucose 108 H Calcium 8.7 Microbiology 10/03/20 16:20 Blood Culture (Wb) - Anticubital Left Blood Culture - Final No growth in 5 days. 10/03/20 20:00 Blood Culture (Wb) - Anticubital Right Blood Culture - Final No growth in 5 days. Clinical Impression(s) from Imaging Studies Chest X-Ray 10/03/20 16:35 IMPRESSION: Bilateral pneumonia. Electronically Signed: Andrea Anthony MD at 17:29 EST Tel , Service support , Current Medications Acetaminophen (Acetaminophen 325 Mg Tablet) 650 mg PO Q6H PRN PRN PRN Reason: Pain Score 1-10/Temp > 100.7 F Last Admin: 10/08/20 21:13 Dose: 650 mg Documented by: Al Hydroxide/Mg Hydroxide (Mag Hydrox/Al Hydrox/Simeth 30 Ml Udc) 30 ml PO Q6H PRN PRN PRN Reason: Gastric Burning Albuterol Sulfate (Albuterol Ih 8.5 Gm (Proair) Inhaler (200 Puffs)) 2 puff INHALATION Q4H [facility] Last Admin: 10/11/20 02:22 Dose: Not Given Documented by: Apixaban (Apixaban 5 Mg Tablet) 5 mg PO BID [facility] Last Admin: 10/10/20 20:07 Dose: 5 mg Documented by: Atorvastatin Calcium (Atorvastatin Calcium 10 Mg Tablet) 10 mg PO QHS [facility] Last Admin: 10/10/20 20:06 Dose: 10 mg Documented by: Calamine/Phenol (Menthol/Lanolin/Calamine/Znox 113 Gm Tube) 1 applic TOPICAL BID [facility]; Protocol Last Admin: 10/10/20 20:07 Dose: 1 applicatio Documented by: Dexamethasone (Dexamethasone 2 Mg Tablet) 6 mg PO DAILY [facility] Last Admin: 10/10/20 11:07 Dose: 6 mg Documented by: Diltiazem HCl (Diltiazem Cd 180 Mg Capsule) 180 mg PO DAILY [facility] Last Admin: 10/10/20 11:09 Dose: Not Given Documented by: Finasteride (Finasteride 5 Mg Tablet) 5 mg PO DAILY [facility] Last Admin: 10/10/20 11:10 Dose: 5 mg Documented by: Furosemide (Furosemide 20 Mg/2 Ml Vial) 20 mg IV DAILY [facility] Last Admin: 10/10/20 11:10 Dose: 20 mg Documented by: Lorazepam (Lorazepam 2 Mg/Ml Syringe) 0.5 mg IV Q4H PRN PRN PRN Reason: severe agitation w/BIPAP use Last Admin: 10/10/20 22:53 Dose: 0.5 mg Documented by: Metoprolol Tartrate (Metoprolol Tartrate 100 Mg Tablet) 100 mg PO BID [facility] Last Admin: 10/10/20 20:06 Dose: 100 mg Documented by: Miscellaneous Information (Inhaler, Assist Devices 1 Each Spacer) 1 each INHALATION PRN PRN PRN Reason: WITH ALBUTEROL INHALER Last Admin: 10/03/20 23:35 Dose: 1 each Documented by: Nitroglycerin (Nitroglycerin (Inpatient Use) 0.4 Mg Tab.Subl) 0.4 mg SUBLINGUAL Q5M PRN PRN Reason: CARDIAC/CHEST PAIN Ondansetron HCl (Ondansetron 4 Mg/2 Ml Vial) 4 mg IV Q8H PRN PRN PRN Reason: NAUSEA/VOMITING Polyethylene Glycol (Polyethylene Glycol 3350 17 Gm Packet) 17 gm PO DAILY [facility] Last Admin: 10/10/20 11:12 Dose: Not Given Documented by: Sodium Chloride (0.9% Saline Lock 10 Ml Syringe) 10 - 40 ml IV UD PRN PRN Reason: SALINE FLUSH Last Admin: 10/10/20 22:54 Dose: 10 ml Documented by: Tamsulosin HCl (Tamsulosin Hcl 0.4 Mg Capsule) 0.8 mg PO DAILY@2200 [facility] Last Admin: 10/10/20 20:06 Dose: 0.8 mg Documented by: Throat Lozenges (Benzocaine/Menthol 1 Lozenge) 1 lozenge MUCOUS MEM Q2H PRN PRN PRN Reason: SORE THROAT Last Admin: 10/05/20 21:45 Dose: 1 lozenge Documented by: Medical Necessity - Tobacco Use Smoking Status: Former smoker Tobacco Use: Non-smoker Assessment/Plan All Active Problems (Last Reviewed 07/25/20 @ 11:17 by Anai Capellan PA, PA) COVID-19 (Acute) Atrial fibrillation with RVR (Acute) Acute respiratory failure with hypoxia (Acute) H/O oral surgery (Resolved) History of left cataract surgery (Resolved) TIA (transient ischemic attack) (Acute 01/09/19) Left-sided weakness (Acute) Leg edema (Acute) Edema (Acute) RECOMMENDATIONS: 1. Continue supplemental oxygen and wean FiO2 to maintain saturations at or above 90%. 2. Continue noninvasive positive pressure ventilatory support nightly. 3. Continue Decadron to complete 10-day treatment course. 4. Continue systemic anticoagulation with Eliquis. 5. Continue gentle diuresis as tolerated by hemodynamics and renal function. 6. Encourage incentive spirometer use and mobilize patient as tolerated. IMPRESSIONS: 1. Acute hypoxic respiratory failure secondary to COVID-19 pneumonia/COPD exacerbation Stable at this time on heated high flow supplemental oxygen. The patient does have significant bilateral infiltrates on chest imaging. The patient has completed his treatment course of remdesivir and will remain on Decadron to complete a 10-day course. The patient will also be continued on systemic anticoagulation with Eliquis along with IV diuretic therapy as tolerated by hemodynamics and renal function. Continue to wean FiO2 to maintain oxygen saturations at or above 90%. 2. A. fib with RVR/cor pulmonale Continue baseline cardiac medications and diuretic therapy. Hemodynamics remain stable. 3. BPH/hyperlipidemia/advanced age/obesity Complicates care, management, recovery and prognosis. Continue home medications as indicated. This note was generated with [employer] dictation software. It may contain incorrect words, spelling, and punctuation that were not noted in checking the note before signing. Inpatient E&M: 34414 [facility] Hosp L3
[2020-10-11 08:00] LABS: Anion Gap 6 (5-15); BUN 41 mg/dL (7-18); BUN/Creat Ratio 49.6 RATIO (10-20); Calcium,Total 9.1 mg/dL (8.5-10.1); Chloride 106 mmol/L (98-107); Creatinine, Serum 0.83 mg/dL (0.70-1.30); EST Glomerular Filtration Rate 96 mL/min (>60); Est Glom Filt Rate - Afr Amer 116 mL/min (>60); Estimated Creatinine Clearance 73.25 ml/min; Glucose 110 mg/dL (74-106); Potassium 4.4 mmol/L (3.5-5.1); Sodium Level 141 mmol/L (136-145)
[2020-10-11] MEDS: APIXABAN 5 MG TABLET PO ×2 (10:17→22:04)
[2020-10-11] MEDS: Metoprolol Tartrate 100 MG Tablet PO ×2 (10:17→22:05)
[2020-10-11] MEDS: Finasteride 5 MG Tablet PO (10:18)
[2020-10-11] MEDS: dexAMETHasone 2 MG TABLET 6 MG PO (10:18)
[2020-10-11] MEDS: Furosemide 20 MG/2 ML VIAL IV (10:18)
[2020-10-11] MEDS: Menthol/Lanolin/Calamine/Znox 113 GM Tube 1 APPLIC TOPICAL ×2 (10:21→22:03)
[2020-10-11] MEDS: dilTIAZem CD 180 MG Capsule PO (12:39)
--- NOTE | 2020-10-11 13:30 | PN_ITS ---
Patient Problems: Active and Suspected Problems (Last Reviewed 07/25/20 @ 11:17 by Anai Capellan PA, PA) COVID-19 (Acute) Atrial fibrillation with RVR (Acute) Acute respiratory failure with hypoxia (Acute) Reason for Visit: Follow-up for acute hypoxic respiratory failure secondary to pneumonia Objective: Patient is still short of breath mainly on exertion. On Airvo 75 % FiO2, flow rate 60 L/min. No fever. Mild sinus tachycardia heart rate 107/min. Physical exam General: Alert, Oriented x3, Cooperative HEENT: Atraumatic, PERRLA, EOMI, Normocephalic Oral: No Gingival or Mucosal Lesions/ Ulcerations Neck: Supple, No JVD, Negative Carotid Bruits Lungs: Air entry diminished in bilateral lung bases. Mild bilateral expiratory rhonchi. Cardiovascular: Regular rate, Regular Rhythm, Normal S1, Normal S2, No murmurs Abdomen: Bowel Sounds Present, Soft, Non Tender, Non-Distended : No renal angle tenderness. No suprapubic tenderness. Extremities: No edema, Capillary Refill Less than 3 Seconds Skin: No rashes, No breakdown Musculoskeletal: No Tenderness to Palpation of Joints or Extremities Neurological: Cranial nerves II-XII grossly intact, Deep Tendon Reflexes 2+/4 and Symmetrical, Neuro grossly intact Psych/Mental Status: Normal Affect, Appropriate. Vitals/I&O's: Vital Signs Temp Pulse Resp BP Pulse Ox 97.0 F L 96 20 H 113/71 94 10/11/20 12:00 10/11/20 12:00 10/11/20 12:00 10/11/20 12:00 10/11/20 12:00 Oxygen Flow Rate (L/min) 60 Oxygen Delivery Method Airvo Weight: 232 lb 2.348 oz Body Mass Index (BMI) 36.5 Finger Stick Blood Glucose 164 Intake and Output for Last 24 Hours 10/09/20 10/10/20 10/11/20 23:59 23:59 23:59 Intake Total 750 / 990 480 / 480 Output Total 875 / 1075 1400 / 1400 1125 / 1125 Balance -875 / -1075 -650 / -410 -645 / -645 Microbiology Past 72 Hours 10/03/20 16:20 Blood Culture (Wb) - Anticubital Left Blood Culture - Final No growth in 5 days. 10/03/20 20:00 Blood Culture (Wb) - Anticubital Right Blood Culture - Final No growth in 5 days. Laboratory Results 10/11/20 07:00: Sodium 141, Potassium 4.4, Chloride 106, Carbon Dioxide 29.0, Anion Gap 6, BUN 41 H, Creatinine 0.83, Estim Creat Clear Calc 73.25, Est GFR (MDRD) Af Amer 116, Est GFR (MDRD) Non-Af 96, BUN/Creatinine Ratio 49.6 H, Glucose 110 H, Calcium 9.1 Current Medications Acetaminophen (Acetaminophen 325 Mg Tablet) 650 mg PO Q6H PRN PRN PRN Reason: Pain Score 1-10/Temp > 100.7 F Last Admin: 10/08/20 21:13 Dose: 650 mg Documented by: Al Hydroxide/Mg Hydroxide (Mag Hydrox/Al Hydrox/Simeth 30 Ml Udc) 30 ml PO Q6H PRN PRN PRN Reason: Gastric Burning Albuterol Sulfate (Albuterol Ih 8.5 Gm (Proair) Inhaler (200 Puffs)) 2 puff INHALATION Q4H [facility] Last Admin: 10/11/20 10:19 Dose: 2 puff Documented by: Apixaban (Apixaban 5 Mg Tablet) 5 mg PO BID [facility] Last Admin: 10/11/20 10:17 Dose: 5 mg Documented by: Atorvastatin Calcium (Atorvastatin Calcium 10 Mg Tablet) 10 mg PO QHS [facility] Last Admin: 10/10/20 20:06 Dose: 10 mg Documented by: Calamine/Phenol (Menthol/Lanolin/Calamine/Znox 113 Gm Tube) 1 applic TOPICAL BID [facility]; Protocol Last Admin: 10/11/20 10:21 Dose: 1 applicatio Documented by: Dexamethasone (Dexamethasone 2 Mg Tablet) 6 mg PO DAILY [facility] Last Admin: 10/11/20 10:18 Dose: 6 mg Documented by: Diltiazem HCl (Diltiazem Cd 180 Mg Capsule) 180 mg PO DAILY [facility] Last Admin: 10/11/20 12:39 Dose: 180 mg Documented by: Finasteride (Finasteride 5 Mg Tablet) 5 mg PO DAILY [facility] Last Admin: 10/11/20 10:18 Dose: 5 mg Documented by: Furosemide (Furosemide 20 Mg/2 Ml Vial) 20 mg IV DAILY [facility] Last Admin: 10/11/20 10:18 Dose: 20 mg Documented by: Lorazepam (Lorazepam 2 Mg/Ml Syringe) 0.5 mg IV Q4H PRN PRN PRN Reason: severe agitation w/BIPAP use Last Admin: 10/10/20 22:53 Dose: 0.5 mg Documented by: Metoprolol Tartrate (Metoprolol Tartrate 100 Mg Tablet) 100 mg PO BID [facility] Last Admin: 10/11/20 10:17 Dose: 100 mg Documented by: Miscellaneous Information (Inhaler, Assist Devices 1 Each Spacer) 1 each INHALATION PRN PRN PRN Reason: WITH ALBUTEROL INHALER Last Admin: 10/03/20 23:35 Dose: 1 each Documented by: Nitroglycerin (Nitroglycerin (Inpatient Use) 0.4 Mg Tab.Subl) 0.4 mg SUBLINGUAL Q5M PRN PRN Reason: CARDIAC/CHEST PAIN Ondansetron HCl (Ondansetron 4 Mg/2 Ml Vial) 4 mg IV Q8H PRN PRN PRN Reason: NAUSEA/VOMITING Polyethylene Glycol (Polyethylene Glycol 3350 17 Gm Packet) 17 gm PO DAILY [facility] Last Admin: 10/11/20 10:18 Dose: Not Given Documented by: Sodium Chloride (0.9% Saline Lock 10 Ml Syringe) 10 - 40 ml IV UD PRN PRN Reason: SALINE FLUSH Last Admin: 10/10/20 22:54 Dose: 10 ml Documented by: Tamsulosin HCl (Tamsulosin Hcl 0.4 Mg Capsule) 0.8 mg PO DAILY@2200 [facility] Last Admin: 10/10/20 20:06 Dose: 0.8 mg Documented by: Throat Lozenges (Benzocaine/Menthol 1 Lozenge) 1 lozenge MUCOUS MEM Q2H PRN PRN PRN Reason: SORE THROAT Last Admin: 10/05/20 21:45 Dose: 1 lozenge Documented by: STROKE Vital Signs/Narrative: Vital Signs Temp Pulse Resp BP Pulse Ox 10/11/20 12:00 97.0 F L 96 20 H 113/71 94 10/11/20 10:17 107 H 10/11/20 10:16 96.9 F L 107 H 20 H 109/71 95 Medical Necessity - Tobacco Use Smoking Status: Former smoker Tobacco Use: Non-smoker Assessment/Plan All Active Problems (Last Reviewed 07/25/20 @ 11:17 by Anai CHAMBERS, PA) COVID-19 (Acute) Atrial fibrillation with RVR (Acute) Acute respiratory failure with hypoxia (Acute) H/O oral surgery (Resolved) History of left cataract surgery (Resolved) TIA (transient ischemic attack) (Acute 01/09/19) Left-sided weakness (Acute) Leg edema (Acute) Edema (Acute) 75-year-old gentleman admitted with shortness of breath consistent COVID-19 pneumonia 1. acute hypoxic respiratory failure and COPD exacerbation secondary to COVID-19 pneumonia: On high flow humidified oxygen, AIRVO, BiPAP nightly. Patient had dose of Lasix on 10/05. Currently pulse ox 95% on BiPAP. Net negative fluid balance -1 L. On Lasix 20 mg IV daily. 10/08 mild tachycardic. Mild increase in BUN 35 but creatinine is good. Electrolytes in acceptable limit. 10/09: Patient is still on humidified high flow oxygen. BUN/creatinine on baseline. K4.5. Continue low-dose Lasix 20 mg IV daily. 10/10: Patient is negative -3.5 L fluid balance. Continue bronchopulmonary hygiene PEP and incentive spirometry. On humidified high flow oxygen. Patient completed remdesivir on 10/07. 10/11: Negative fluid balance -4.2 L. Still on high flow oxygen. 2. acute COVID 19 pneumonia: On dexamethasone and remdesivir. 3. afib w RVR: Heart rate is controlled. On metoprolol diltiazem and Eliquis. 4. hypokalemia: Potassium normal. Magnesium 1.9 on 10/03. Hypokalemia resolved. 10/10: Serum electrolytes are in normal range 5. History of bilateral pulmonary embolism, pulmonary artery hypertension: On Eliquis. 6. Mild constipation: Started on senna S and MiraLAX. 10/09: Patient had good bowel movement. Inpatient E&M: [id number] [facility] Hosp L2
[2020-10-11] MEDS: Tamsulosin HCl 0.4 MG Capsule 0.8 MG PO (22:04)
[2020-10-11] MEDS: Atorvastatin Calcium 10 MG Tablet PO (22:05)
[2020-10-11] MEDS: LORazepam 2 MG/ML Syringe 0.5 MG IV (22:41)
[2020-10-11] MEDS: 0.9% Saline Lock 10 ML Syringe IV (22:44)
[2020-10-12] VITALS (24 sets, daily range): BP systolic 103–139; BP diastolic 63–66; PULSE 62–99; RESP 12–22; TEMP 36.1–36.6; O2SAT 87–98
--- NOTE | 2020-10-12 05:50 | PCM.PN.PUL ---
Patient Problems: Active and Suspected Problems (Last Reviewed 07/25/20 @ 11:17 by Anai Capellan PA, PA) COVID-19 (Acute) Atrial fibrillation with RVR (Acute) Acute respiratory failure with hypoxia (Acute) Subjective: The patient was seen and examined at the bedside this morning. Events from the last 24 hours have been reviewed. The patient is currently afebrile, hemodynamically stable and maintaining appropriate oxygen saturations on Airvo heated high flow oxygen with an FiO2 requirement of 85%. The patient has previously completed his treatment course of remdesivir and remains on Eliquis, Decadron and scheduled Lasix. The patient is currently documented to be overall net -5.1 L for the hospital admission. Creatinine is stable. Objective: The patient's most recent lab work, culture data and imaging studies have all been personally reviewed. Surface echocardiogram completed in July 2020 revealed normal LV size with an ejection fraction of 65%. Pulmonary artery systolic pressure was estimated to be 38 mmHg. Moderate aortic stenosis was noted. - Physical Exam Vitals/I&O's: Vital Signs Temp Pulse Resp BP Pulse Ox 97.1 F L 71 18 116/63 91 10/12/20 05:23 10/12/20 05:23 10/12/20 05:23 10/12/20 05:23 10/12/20 05:23 Oxygen Flow Rate (L/min) 60 Oxygen Delivery Method Airvo Weight: 232 lb 2.348 oz Body Mass Index (BMI) 36.5 Finger Stick Blood Glucose 164 Intake and Output for Last 24 Hours 10/10/20 10/11/20 10/12/20 23:59 23:59 23:59 Intake Total 750 / 990 480 / 480 Output Total 1400 / 1400 1775 / 1775 250 / 250 Balance -650 / -410 -1295 / -1295 -250 / -250 General: Alert, Cooperative, No apparent distress HEENT: Atraumatic, PERRLA, Normocephalic Oral: No Gingival or Mucosal Lesions/ Ulcerations Neck: Supple, No Nodes, Trachea Midline Lungs: No rhonchi, No wheeze, No rales, Diminished Cardiovascular: Regular rate, Regular Rhythm, Normal S1, Normal S2, Murmur Abdomen: Bowel Sounds Present, Soft, Non Tender, Obese Extremities: No clubbing, No cyanosis, No edema Skin: - - No significant change from previous Musculoskeletal: No Tenderness to Palpation of Joints or Extremities Lymphatic: No Cervical, Supraclavicular, or Inguinal Adenopathy Neurological: Cranial nerves II-XII grossly intact, Neuro grossly intact Psych/Mental Status: Alert and oriented to time, place, person, mood and affect Labs (Last 48 Hours) 10/10/20 10/11/20 08:45 07:00 Sodium 141 141 Potassium 4.0 4.4 Chloride 106 106 Carbon Dioxide 29.0 29.0 Anion Gap 6 6 BUN 12 41 H Creatinine 0.94 0.83 Estim Creat Clear Calc 64.68 73.25 Est GFR (MDRD) Af Amer 101 116 Est GFR (MDRD) Non-Af 83 96 BUN/Creatinine Ratio 12.8 49.6 H Glucose 108 H 110 H Calcium 8.7 9.1 Clinical Impression(s) from Imaging Studies Chest X-Ray 10/03/20 16:35 IMPRESSION: Bilateral pneumonia. Electronically Signed: Andrea Anthony MD at 17:29 EST Tel , Service support , Current Medications Acetaminophen (Acetaminophen 325 Mg Tablet) 650 mg PO Q6H PRN PRN PRN Reason: Pain Score 1-10/Temp > 100.7 F Last Admin: 10/08/20 21:13 Dose: 650 mg Documented by: Al Hydroxide/Mg Hydroxide (Mag Hydrox/Al Hydrox/Simeth 30 Ml Udc) 30 ml PO Q6H PRN PRN PRN Reason: Gastric Burning Albuterol Sulfate (Albuterol Ih 8.5 Gm (Proair) Inhaler (200 Puffs)) 2 puff INHALATION Q4H [facility] Last Admin: 10/12/20 05:28 Dose: 2 puff Documented by: Apixaban (Apixaban 5 Mg Tablet) 5 mg PO BID [facility] Last Admin: 10/11/20 22:04 Dose: 5 mg Documented by: Atorvastatin Calcium (Atorvastatin Calcium 10 Mg Tablet) 10 mg PO QHS [facility] Last Admin: 10/11/20 22:05 Dose: 10 mg Documented by: Calamine/Phenol (Menthol/Lanolin/Calamine/Znox 113 Gm Tube) 1 applic TOPICAL BID [facility]; Protocol Last Admin: 10/11/20 22:03 Dose: 1 applicatio Documented by: Dexamethasone (Dexamethasone 2 Mg Tablet) 6 mg PO DAILY [facility] Last Admin: 10/11/20 10:18 Dose: 6 mg Documented by: Diltiazem HCl (Diltiazem Cd 240 Mg Capsule) 240 mg PO DAILY [facility] Finasteride (Finasteride 5 Mg Tablet) 5 mg PO DAILY [facility] Last Admin: 10/11/20 10:18 Dose: 5 mg Documented by: Furosemide (Furosemide 20 Mg/2 Ml Vial) 20 mg IV DAILY [facility] Last Admin: 10/11/20 10:18 Dose: 20 mg Documented by: Lorazepam (Lorazepam 2 Mg/Ml Syringe) 0.5 mg IV Q4H PRN PRN PRN Reason: severe agitation w/BIPAP use Last Admin: 10/11/20 22:41 Dose: 0.5 mg Documented by: Metoprolol Tartrate (Metoprolol Tartrate 100 Mg Tablet) 100 mg PO BID [facility] Last Admin: 10/11/20 22:05 Dose: 100 mg Documented by: Miscellaneous Information (Inhaler, Assist Devices 1 Each Spacer) 1 each INHALATION PRN PRN PRN Reason: WITH ALBUTEROL INHALER Last Admin: 10/03/20 23:35 Dose: 1 each Documented by: Nitroglycerin (Nitroglycerin (Inpatient Use) 0.4 Mg Tab.Subl) 0.4 mg SUBLINGUAL Q5M PRN PRN Reason: CARDIAC/CHEST PAIN Ondansetron HCl (Ondansetron 4 Mg/2 Ml Vial) 4 mg IV Q8H PRN PRN PRN Reason: NAUSEA/VOMITING Polyethylene Glycol (Polyethylene Glycol 3350 17 Gm Packet) 17 gm PO DAILY [facility] Last Admin: 10/11/20 10:18 Dose: Not Given Documented by: Sodium Chloride (0.9% Saline Lock 10 Ml Syringe) 10 - 40 ml IV UD PRN PRN Reason: SALINE FLUSH Last Admin: 10/11/20 22:44 Dose: 10 ml Documented by: Tamsulosin HCl (Tamsulosin Hcl 0.4 Mg Capsule) 0.8 mg PO DAILY@2200 [facility] Last Admin: 10/11/20 22:04 Dose: 0.8 mg Documented by: Throat Lozenges (Benzocaine/Menthol 1 Lozenge) 1 lozenge MUCOUS MEM Q2H PRN PRN PRN Reason: SORE THROAT Last Admin: 10/05/20 21:45 Dose: 1 lozenge Documented by: Medical Necessity - Tobacco Use Smoking Status: Former smoker Tobacco Use: Non-smoker Assessment/Plan All Active Problems (Last Reviewed 07/25/20 @ 11:17 by Anai Capellan PA, PA) COVID-19 (Acute) Atrial fibrillation with RVR (Acute) Acute respiratory failure with hypoxia (Acute) H/O oral surgery (Resolved) History of left cataract surgery (Resolved) TIA (transient ischemic attack) (Acute 01/09/19) Left-sided weakness (Acute) Leg edema (Acute) Edema (Acute) RECOMMENDATIONS: 1. Continue to wean FiO2 to maintain saturations at or above 90%. 2. Continue noninvasive positive pressure ventilatory support nightly, as tolerated by patient. 3. Continue Decadron to complete 10-day treatment course. 4. Continue systemic anticoagulation with Eliquis. 5. Continue gentle diuresis as tolerated by hemodynamics and renal function. 6. Encourage incentive spirometer use and mobilize patient as tolerated. IMPRESSIONS: 1. Acute hypoxic respiratory failure secondary to COVID-19 pneumonia/COPD exacerbation Stable at this time on heated high flow supplemental oxygen. The patient does have significant bilateral infiltrates on chest imaging. The patient has completed his treatment course of remdesivir and will remain on Decadron to complete a 10-day course. The patient will also be continued on systemic anticoagulation with Eliquis along with IV diuretic therapy as tolerated by hemodynamics and renal function. Continue to wean FiO2 to maintain oxygen saturations at or above 90%. 2. A. fib with RVR/cor pulmonale Continue baseline cardiac medications and diuretic therapy. Hemodynamics remain stable. 3. BPH/hyperlipidemia/advanced age/obesity Complicates care, management, recovery and prognosis. Continue home medications as indicated. This note was generated with [employer] software. It may contain incorrect words, spelling, and punctuation that were not noted in checking the note before signing. Inpatient E&M: [id number] [facility] Hosp L3
[2020-10-12 05:59] LABS: Absolute Lymphocyte Count 0.59 X10^3/uL (0.83-4.51); Absolute Neutrophil Count 14.6 X10^3/uL (2.0-7.7); Basophil# 0.03 X10^3/uL; Basophil% 0.2 % (0-1); Hematocrit 40.7 % (40-54); Hemoglobin 12.6 g/dL (13.0-16.5); Lymphocyte # 0.59 X10^3/ul (4.0); Lymphocyte % 3.4 % (19-41); Mean Corpuscular Hgb 29.4 pg (27.0-32.0); Mean Corpuscular Volume 94.9 fL (80-94); Mean Platelet Vol. 9.8 fl (6.2-12.0); Monocyte% 8.6 % (0-10); NRBC Flagged by Analyzer 0 % (0-5); Neutrophil # 14.55 X10^3/uL (2.7-7.7); Neutrophil % 82.9 % (47-70); POSITIVE DIFFERENTIAL YES; Platelet Count 409 K/mm3 (150-450); RBC Distribution Width CV 13.7 % (11.6-14.6); RBC Distribution Width SD 47.7 fl (35.1-43.9); Red Blood Count 4.29 M/mm3 (4.6-6.2); White Blood Count 17.5 K/mm3 (4.4-11.0)
[2020-10-12 06:16] LABS: Anion Gap 4 (5-15); BUN 41 mg/dL (7-18); BUN/Creat Ratio 44.1 RATIO (10-20); Calcium,Total 9.1 mg/dL (8.5-10.1); Chloride 103 mmol/L (98-107); Creatinine, Serum 0.93 mg/dL (0.70-1.30); EST Glomerular Filtration Rate 84 mL/min (>60); Est Glom Filt Rate - Afr Amer 102 mL/min (>60); Estimated Creatinine Clearance 65.38 ml/min; Glucose 115 mg/dL (74-106); Potassium 4.4 mmol/L (3.5-5.1); Sodium Level 139 mmol/L (136-145)
[2020-10-12 06:20] LABS: Differential Indicated SCAN CRITERIA MET
[2020-10-12 06:35] LABS: Differential Comment SCANNED
[2020-10-12] MEDS: Metoprolol Tartrate 100 MG Tablet PO ×2 (08:44→20:28)
[2020-10-12] MEDS: dexAMETHasone 2 MG TABLET 6 MG PO (08:44)
[2020-10-12] MEDS: dilTIAZem CD 240 MG Capsule PO (08:44)
[2020-10-12] MEDS: Finasteride 5 MG Tablet PO (08:45)
[2020-10-12] MEDS: APIXABAN 5 MG TABLET PO ×2 (08:45→20:28)
[2020-10-12] MEDS: Furosemide 20 MG/2 ML VIAL IV (08:45)
[2020-10-12] MEDS: Menthol/Lanolin/Calamine/Znox 113 GM Tube 1 APPLIC TOPICAL ×2 (08:46→20:29)
[2020-10-12] MEDS: 0.9% Saline Lock 10 ML Syringe IV ×2 (08:47→23:21)
--- NOTE | 2020-10-12 13:14 | PCM.PN.HOSP ---
Patient Problems: Active and Suspected Problems (Last Reviewed 07/25/20 @ 11:17 by Anai Capellan PA, PA) COVID-19 (Acute) Atrial fibrillation with RVR (Acute) Acute respiratory failure with hypoxia (Acute) Reason for Visit: Follow-up for acute hypoxic respiratory failure secondary to COVID-19 pneumonia Objective: Patient still on high flow modified oxygen. Denies significant cough or dyspnea. No fever. Physical exam General: Alert, Oriented x3, Cooperative HEENT: Atraumatic, PERRLA, EOMI, Normocephalic Oral: No Gingival or Mucosal Lesions/ Ulcerations Neck: Supple, No JVD, Negative Carotid Bruits Lungs: Air entry diminished in bilateral lung bases. Mild expiratory bilateral rhonchi. Cardiovascular: Regular rate, Regular Rhythm, Normal S1, Normal S2, No murmurs Abdomen: Bowel Sounds Present, Soft, Non Tender, Non-Distended : No renal angle tenderness. No suprapubic tenderness. Extremities: No edema, Capillary Refill Less than 3 Seconds Skin: No rashes, No breakdown Musculoskeletal: No Tenderness to Palpation of Joints or Extremities Neurological: Cranial nerves II-XII grossly intact, Deep Tendon Reflexes 2+/4 and Symmetrical, Neuro grossly intact Psych/Mental Status: Normal Affect, Appropriate. Vitals/I&O's: Vital Signs Temp Pulse Resp BP Pulse Ox 97.8 F 99 18 111/66 93 10/12/20 08:30 10/12/20 09:27 10/12/20 08:30 10/12/20 08:30 10/12/20 08:30 Oxygen Flow Rate (L/min) 60 Oxygen Delivery Method Airvo Weight: 231 lb 14.821 oz Body Mass Index (BMI) 36.5 Finger Stick Blood Glucose 164 Intake and Output for Last 24 Hours 10/10/20 10/11/20 10/12/20 23:59 23:59 23:59 Intake Total 750 / 990 480 / 480 Output Total 1400 / 1400 1775 / 1775 250 / 250 Balance -650 / -410 -1295 / -1295 -250 / -250 Laboratory Results 10/12/20 05:32: WBC 17.5 H, RBC 4.29 L, Hgb 12.6 L, Hct 40.7, MCV 94.9 H, MCH 29.4, MCHC 31.0 L, RDW Std Deviation 47.7 H, RDW Coeff of Zackary 13.7, Plt Count 409, MPV 9.8, Immature Gran % (Auto) 4.900 H, Neut % (Auto) 82.9 H, Lymph % (Auto) 3.4 L, [facility] % (Auto) 8.6, Eos % (Auto) 0.0, Baso % (Auto) 0.2, Absolute Neuts (auto) 14.6 H, Absolute Lymphs (auto) 0.59 L, Nucleated RBC % 0, Differential Comment SCANNED 10/12/20 05:32: Sodium 139, Potassium 4.4, Chloride 103, Carbon Dioxide 32.0, Anion Gap 4 L, BUN 41 H, Creatinine 0.93, Estim Creat Clear Calc 65.38, Est GFR (MDRD) Af Amer 102, Est GFR (MDRD) Non-Af 84, BUN/Creatinine Ratio 44.1 H, Glucose 115 H, Calcium 9.1 Current Medications Acetaminophen (Acetaminophen 325 Mg Tablet) 650 mg PO Q6H PRN PRN PRN Reason: Pain Score 1-10/Temp > 100.7 F Last Admin: 10/08/20 21:13 Dose: 650 mg Documented by: Al Hydroxide/Mg Hydroxide (Mag Hydrox/Al Hydrox/Simeth 30 Ml Udc) 30 ml PO Q6H PRN PRN PRN Reason: Gastric Burning Albuterol Sulfate (Albuterol Ih 8.5 Gm (Proair) Inhaler (200 Puffs)) 2 puff INHALATION Q4H [facility] Last Admin: 10/12/20 08:46 Dose: 2 puff Documented by: Apixaban (Apixaban 5 Mg Tablet) 5 mg PO BID [facility] Last Admin: 10/12/20 08:45 Dose: 5 mg Documented by: Atorvastatin Calcium (Atorvastatin Calcium 10 Mg Tablet) 10 mg PO QHS [facility] Last Admin: 10/11/20 22:05 Dose: 10 mg Documented by: Calamine/Phenol (Menthol/Lanolin/Calamine/Znox 113 Gm Tube) 1 applic TOPICAL BID [facility]; Protocol Last Admin: 10/12/20 08:46 Dose: 1 applicatio Documented by: Dexamethasone (Dexamethasone 2 Mg Tablet) 6 mg PO DAILY [facility] Last Admin: 10/12/20 08:44 Dose: 6 mg Documented by: Diltiazem HCl (Diltiazem Cd 240 Mg Capsule) 240 mg PO DAILY [facility] Last Admin: 10/12/20 08:44 Dose: 240 mg Documented by: Finasteride (Finasteride 5 Mg Tablet) 5 mg PO DAILY [facility] Last Admin: 10/12/20 08:45 Dose: 5 mg Documented by: Furosemide (Furosemide 20 Mg/2 Ml Vial) 20 mg IV DAILY [facility] Last Admin: 10/12/20 08:45 Dose: 20 mg Documented by: Lorazepam (Lorazepam 2 Mg/Ml Syringe) 0.5 mg IV Q4H PRN PRN PRN Reason: severe agitation w/BIPAP use Last Admin: 10/11/20 22:41 Dose: 0.5 mg Documented by: Metoprolol Tartrate (Metoprolol Tartrate 100 Mg Tablet) 100 mg PO BID [facility] Last Admin: 10/12/20 08:44 Dose: 100 mg Documented by: Miscellaneous Information (Inhaler, Assist Devices 1 Each Spacer) 1 each INHALATION PRN PRN PRN Reason: WITH ALBUTEROL INHALER Last Admin: 10/03/20 23:35 Dose: 1 each Documented by: Nitroglycerin (Nitroglycerin (Inpatient Use) 0.4 Mg Tab.Subl) 0.4 mg SUBLINGUAL Q5M PRN PRN Reason: CARDIAC/CHEST PAIN Ondansetron HCl (Ondansetron 4 Mg/2 Ml Vial) 4 mg IV Q8H PRN PRN PRN Reason: NAUSEA/VOMITING Polyethylene Glycol (Polyethylene Glycol 3350 17 Gm Packet) 17 gm PO DAILY [facility] Last Admin: 10/12/20 08:47 Dose: Not Given Documented by: Sodium Chloride (0.9% Saline Lock 10 Ml Syringe) 10 - 40 ml IV UD PRN PRN Reason: SALINE FLUSH Last Admin: 10/12/20 08:47 Dose: 10 ml Documented by: Tamsulosin HCl (Tamsulosin Hcl 0.4 Mg Capsule) 0.8 mg PO DAILY@2200 [facility] Last Admin: 10/11/20 22:04 Dose: 0.8 mg Documented by: Throat Lozenges (Benzocaine/Menthol 1 Lozenge) 1 lozenge MUCOUS MEM Q2H PRN PRN PRN Reason: SORE THROAT Last Admin: 10/05/20 21:45 Dose: 1 lozenge Documented by: STROKE Vital Signs/Narrative: Vital Signs Pulse 10/12/20 09:27 99 Medical Necessity - Tobacco Use Smoking Status: Former smoker Tobacco Use: Non-smoker Assessment/Plan All Active Problems (Last Reviewed 07/25/20 @ 11:17 by Anai Capellan PA, PA) COVID-19 (Acute) Atrial fibrillation with RVR (Acute) Acute respiratory failure with hypoxia (Acute) H/O oral surgery (Resolved) History of left cataract surgery (Resolved) TIA (transient ischemic attack) (Acute 01/09/19) Left-sided weakness (Acute) Leg edema (Acute) Edema (Acute) 75-year-old gentleman admitted with shortness of breath consistent COVID-19 pneumonia 1. acute hypoxic respiratory failure and COPD exacerbation secondary to COVID-19 pneumonia: On high flow humidified oxygen, AIRVO, BiPAP nightly. Patient had dose of Lasix on 10/05. Currently pulse ox 95% on BiPAP. Net negative fluid balance -1 L. On Lasix 20 mg IV daily. 10/08 mild tachycardic. Mild increase in BUN 35 but creatinine is good. Electrolytes in acceptable limit. 10/09: Patient is still on humidified high flow oxygen. BUN/creatinine on baseline. K4.5. Continue low-dose Lasix 20 mg IV daily. 10/10: Patient is negative -3.5 L fluid balance. Continue bronchopulmonary hygiene PEP and incentive spirometry. On humidified high flow oxygen. Patient completed remdesivir on 10/07. 10/11: Negative fluid balance -4.2 L. Still on high flow oxygen. 10/12: Patient on high flow oxygen. Not tachypneic or dyspnea. Negative fluid balance, -5.2. Seen by oceanography professor. 2. acute COVID 19 pneumonia: On dexamethasone and remdesivir. 10/12: Patient completed remdesivir on 10/07. 3. afib w RVR: Heart rate is controlled. On metoprolol diltiazem and Eliquis. 4. hypokalemia: Potassium normal. Magnesium 1.9 on 10/03. Hypokalemia resolved. 10/10: Serum electrolytes are in normal range 5. History of bilateral pulmonary embolism, pulmonary artery hypertension: On Eliquis. 6. Mild constipation: Started on senna S and MiraLAX. 10/09: Patient had good bowel movement. Inpatient E&M: 75037 [facility] Hosp L2
[2020-10-12] MEDS: Atorvastatin Calcium 10 MG Tablet PO (20:28)
[2020-10-12] MEDS: Tamsulosin HCl 0.4 MG Capsule 0.8 MG PO (20:29)
[2020-10-12] MEDS: LORazepam 2 MG/ML Syringe 0.5 MG IV (23:21)
[2020-10-13] VITALS (14 sets, daily range): BP systolic 108–123; BP diastolic 65–67; PULSE 77–108; RESP 12–27; TEMP 36.4–36.6; O2SAT 91–100
--- NOTE | 2020-10-13 05:50 | PCM.PN.PUL ---
Patient Problems: Active and Suspected Problems (Last Reviewed 07/25/20 @ 11:17 by Anai Capellan PA, PA) COVID-19 (Acute) Atrial fibrillation with RVR (Acute) Acute respiratory failure with hypoxia (Acute) Subjective: The patient was seen and examined at the bedside this morning. Events from the last 24 hours have been reviewed. The patient is currently afebrile, hemodynamically stable and maintaining appropriate oxygen saturations on Airvo heated high flow oxygen with an FiO2 requirement of 85%. The patient did tolerate BiPAP overnight. The patient has previously completed his treatment course of remdesivir and remains on Eliquis, Decadron and scheduled Lasix. He denies the presence of shortness of breath, but does report an ongoing cough. The patient is currently documented to be overall net -5.7 L for the hospital admission. Objective: The patient's most recent lab work, culture data and imaging studies have all been personally reviewed. Surface echocardiogram completed in July 2020 revealed normal LV size with an ejection fraction of 65%. Pulmonary artery systolic pressure was estimated to be 38 mmHg. Moderate aortic stenosis was noted. - Physical Exam Vitals/I&O's: Vital Signs Temp Pulse Resp BP Pulse Ox 97.6 F L 82 20 H 123/66 H 94 10/13/20 02:17 10/13/20 03:00 10/13/20 02:49 10/13/20 02:17 10/13/20 02:49 Oxygen Flow Rate (L/min) 60 Oxygen Delivery Method Bi-pap Weight: 231 lb 14.821 oz Body Mass Index (BMI) 36.5 Finger Stick Blood Glucose 164 Intake and Output for Last 24 Hours 10/11/20 10/12/20 10/13/20 23:59 23:59 23:59 Intake Total 480 / 480 500 / 500 Output Total 1775 / 1775 1750 / 1750 Balance -1295 / -1295 -1250 / -1250 General: Alert, Cooperative, No apparent distress, - - Sitting in bedside recliner. HEENT: Atraumatic, PERRLA, Normocephalic Oral: No Gingival or Mucosal Lesions/ Ulcerations Neck: Supple, No Nodes, Trachea Midline Lungs: No rhonchi, No wheeze, No rales, Diminished Cardiovascular: Regular rate, Regular Rhythm, Normal S1, Normal S2, No murmurs Abdomen: Bowel Sounds Present, Soft, Non Tender, Obese Extremities: No clubbing, No cyanosis, No edema Skin: No breakdown Musculoskeletal: No Tenderness to Palpation of Joints or Extremities, No Muscle Wasting Lymphatic: No Cervical, Supraclavicular, or Inguinal Adenopathy Neurological: Cranial nerves II-XII grossly intact, Neuro grossly intact Psych/Mental Status: Alert and oriented to time, place, person, mood and affect Labs (Last 48 Hours) 10/11/20 10/12/20 10/12/20 07:00 05:32 05:32 WBC 17.5 H RBC 4.29 L Hgb 12.6 L Hct 40.7 MCV 94.9 H MCH 29.4 MCHC 31.0 L RDW Std Deviation 47.7 H RDW Coeff of Zackary 13.7 Plt Count 409 MPV 9.8 Immature Gran % (Auto) 4.900 H Neut % (Auto) 82.9 H Lymph % (Auto) 3.4 L Evangeline % (Auto) 8.6 Eos % (Auto) 0.0 Baso % (Auto) 0.2 Absolute Neuts (auto) 14.6 H Absolute Lymphs (auto) 0.59 L Nucleated RBC % 0 Differential Comment SCANNED Sodium 141 139 Potassium 4.4 4.4 Chloride 106 103 Carbon Dioxide 29.0 32.0 Anion Gap 6 4 L BUN 41 H 41 H Creatinine 0.83 0.93 Estim Creat Clear Calc 73.25 65.38 Est GFR (MDRD) Af Amer 116 102 Est GFR (MDRD) Non-Af 96 84 BUN/Creatinine Ratio 49.6 H 44.1 H Glucose 110 H 115 H Calcium 9.1 9.1 Clinical Impression(s) from Imaging Studies Chest X-Ray 10/03/20 16:35 IMPRESSION: Bilateral pneumonia. Electronically Signed: Andrea Anthony MD at 17:29 EST Tel , Service support , Current Medications Acetaminophen (Acetaminophen 325 Mg Tablet) 650 mg PO Q6H PRN PRN PRN Reason: Pain Score 1-10/Temp > 100.7 F Last Admin: 10/08/20 21:13 Dose: 650 mg Documented by: Al Hydroxide/Mg Hydroxide (Mag Hydrox/Al Hydrox/Simeth 30 Ml Udc) 30 ml PO Q6H PRN PRN PRN Reason: Gastric Burning Albuterol Sulfate (Albuterol Ih 8.5 Gm (Proair) Inhaler (200 Puffs)) 2 puff INHALATION Q4H [facility] Last Admin: 10/13/20 02:45 Dose: Not Given Documented by: Apixaban (Apixaban 5 Mg Tablet) 5 mg PO BID [facility] Last Admin: 10/12/20 20:28 Dose: 5 mg Documented by: Atorvastatin Calcium (Atorvastatin Calcium 10 Mg Tablet) 10 mg PO QHS [facility] Last Admin: 10/12/20 20:28 Dose: 10 mg Documented by: Calamine/Phenol (Menthol/Lanolin/Calamine/Znox 113 Gm Tube) 1 applic TOPICAL BID [facility]; Protocol Last Admin: 10/12/20 20:29 Dose: 1 applicatio Documented by: Dexamethasone (Dexamethasone 2 Mg Tablet) 6 mg PO DAILY [facility] Last Admin: 10/12/20 08:44 Dose: 6 mg Documented by: Diltiazem HCl (Diltiazem Cd 240 Mg Capsule) 240 mg PO DAILY [facility] Last Admin: 10/12/20 08:44 Dose: 240 mg Documented by: Finasteride (Finasteride 5 Mg Tablet) 5 mg PO DAILY [facility] Last Admin: 10/12/20 08:45 Dose: 5 mg Documented by: Furosemide (Furosemide 20 Mg/2 Ml Vial) 20 mg IV DAILY [facility] Last Admin: 10/12/20 08:45 Dose: 20 mg Documented by: Lorazepam (Lorazepam 2 Mg/Ml Syringe) 0.5 mg IV Q4H PRN PRN PRN Reason: severe agitation w/BIPAP use Last Admin: 10/12/20 23:21 Dose: 0.5 mg Documented by: Metoprolol Tartrate (Metoprolol Tartrate 100 Mg Tablet) 100 mg PO BID [facility] Last Admin: 10/12/20 20:28 Dose: 100 mg Documented by: Miscellaneous Information (Inhaler, Assist Devices 1 Each Spacer) 1 each INHALATION PRN PRN PRN Reason: WITH ALBUTEROL INHALER Last Admin: 10/03/20 23:35 Dose: 1 each Documented by: Nitroglycerin (Nitroglycerin (Inpatient Use) 0.4 Mg Tab.Subl) 0.4 mg SUBLINGUAL Q5M PRN PRN Reason: CARDIAC/CHEST PAIN Ondansetron HCl (Ondansetron 4 Mg/2 Ml Vial) 4 mg IV Q8H PRN PRN PRN Reason: NAUSEA/VOMITING Polyethylene Glycol (Polyethylene Glycol 3350 17 Gm Packet) 17 gm PO DAILY [facility] Last Admin: 10/12/20 08:47 Dose: Not Given Documented by: Sodium Chloride (0.9% Saline Lock 10 Ml Syringe) 10 - 40 ml IV UD PRN PRN Reason: SALINE FLUSH Last Admin: 10/12/20 23:21 Dose: 10 ml Documented by: Tamsulosin HCl (Tamsulosin Hcl 0.4 Mg Capsule) 0.8 mg PO DAILY@2200 [facility] Last Admin: 10/12/20 20:29 Dose: 0.8 mg Documented by: Throat Lozenges (Benzocaine/Menthol 1 Lozenge) 1 lozenge MUCOUS MEM Q2H PRN PRN PRN Reason: SORE THROAT Last Admin: 10/05/20 21:45 Dose: 1 lozenge Documented by: Medical Necessity - Tobacco Use Smoking Status: Former smoker Tobacco Use: Non-smoker Assessment/Plan All Active Problems (Last Reviewed 07/25/20 @ 11:17 by Anai CHAMBERS, PA) COVID-19 (Acute) Atrial fibrillation with RVR (Acute) Acute respiratory failure with hypoxia (Acute) H/O oral surgery (Resolved) History of left cataract surgery (Resolved) TIA (transient ischemic attack) (Acute 01/09/19) Left-sided weakness (Acute) Leg edema (Acute) Edema (Acute) RECOMMENDATIONS: 1. Continue to wean FiO2 to maintain saturations at or above 90%. 2. Continue noninvasive positive pressure ventilatory support nightly, as tolerated by patient. 3. Continue Decadron to complete 10-day treatment course. 4. Continue systemic anticoagulation with Eliquis. 5. Continue gentle diuresis as tolerated by hemodynamics and renal function. 6. Encourage incentive spirometer use and mobilize patient as tolerated. IMPRESSIONS: 1. Acute hypoxic respiratory failure secondary to COVID-19 pneumonia/COPD exacerbation Stable at this time on heated high flow supplemental oxygen. The patient does have significant bilateral infiltrates on chest imaging. The patient has completed his treatment course of remdesivir and will remain on Decadron to complete a 10-day course. The patient will also be continued on systemic anticoagulation with Eliquis along with IV diuretic therapy as tolerated by hemodynamics and renal function. Continue to wean FiO2 to maintain oxygen saturations at or above 90%. 2. A. fib with RVR/cor pulmonale Continue baseline cardiac medications and diuretic therapy. Hemodynamics remain stable. 3. BPH/hyperlipidemia/advanced age/obesity Complicates care, management, recovery and prognosis. Continue home medications as indicated. This note was generated with Gathered[employer] dictation software. It may contain incorrect words, spelling, and punctuation that were not noted in checking the note before signing. Inpatient E&M: 16697 Subs Hosp L2
--- NOTE | 2020-10-13 08:24 | PN_ITS ---
Patient Problems: Active and Suspected Problems (Last Reviewed 07/25/20 @ 11:17 by Anai Capellan PA, PA) COVID-19 (Acute) Atrial fibrillation with RVR (Acute) Acute respiratory failure with hypoxia (Acute) Reason for Visit: Follow-up for acute hypoxic respiratory failure secondary to pneumonia Objective: 85 % FiO2. BiPAP alternating with interval AIRVO. No fever. No fever. Patient able to bring some phlegm, brownish sputum Physical exam General: Alert, Oriented x3, Cooperative HEENT: Atraumatic, PERRLA, EOMI, Normocephalic Oral: No Gingival or Mucosal Lesions/ Ulcerations Neck: Supple, No JVD, Negative Carotid Bruits Lungs: Air entry diminished in bilateral lung bases. Mild expiratory bilateral rhonchi. No tachypnea. Cardiovascular: Regular rate, Regular Rhythm, Normal S1, Normal S2, No murmurs Abdomen: Bowel Sounds Present, Soft, Non Tender, Non-Distended : No renal angle tenderness. No suprapubic tenderness. Extremities: No edema, Capillary Refill Less than 3 Seconds Skin: No rashes, No breakdown Musculoskeletal: No Tenderness to Palpation of Joints or Extremities Neurological: Cranial nerves II-XII grossly intact, Deep Tendon Reflexes 2+/4 and Symmetrical, Neuro grossly intact Psych/Mental Status: Normal Affect, Appropriate. Vitals/I&O's: Vital Signs Temp Pulse Resp BP Pulse Ox 97.6 F L 91 22 H 123/66 H 92 10/13/20 02:17 10/13/20 07:24 10/13/20 07:19 10/13/20 02:17 10/13/20 07:19 Oxygen Flow Rate (L/min) 60 Oxygen Delivery Method Bi-pap Weight: 230 lb 13.184 oz Body Mass Index (BMI) 36.5 Finger Stick Blood Glucose 164 Intake and Output for Last 24 Hours 10/11/20 10/12/20 10/13/20 23:59 23:59 23:59 Intake Total 480 / 480 500 / 500 880 / 880 Output Total 1775 / 1775 1750 / 1750 450 / 450 Balance -1295 / -1295 -1250 / -1250 430 / 430 Current Medications Acetaminophen (Acetaminophen 325 Mg Tablet) 650 mg PO Q6H PRN PRN PRN Reason: Pain Score 1-10/Temp > 100.7 F Last Admin: 10/08/20 21:13 Dose: 650 mg Documented by: Al Hydroxide/Mg Hydroxide (Mag Hydrox/Al Hydrox/Simeth 30 Ml Udc) 30 ml PO Q6H PRN PRN PRN Reason: Gastric Burning Albuterol Sulfate (Albuterol Ih 8.5 Gm (Proair) Inhaler (200 Puffs)) 2 puff INHALATION Q4H [facility] Last Admin: 10/13/20 06:11 Dose: 2 puff Documented by: Apixaban (Apixaban 5 Mg Tablet) 5 mg PO BID [facility] Last Admin: 10/12/20 20:28 Dose: 5 mg Documented by: Atorvastatin Calcium (Atorvastatin Calcium 10 Mg Tablet) 10 mg PO QHS [facility] Last Admin: 10/12/20 20:28 Dose: 10 mg Documented by: Calamine/Phenol (Menthol/Lanolin/Calamine/Znox 113 Gm Tube) 1 applic TOPICAL BID [facility]; Protocol Last Admin: 10/12/20 20:29 Dose: 1 applicatio Documented by: Dexamethasone (Dexamethasone 2 Mg Tablet) 6 mg PO DAILY [facility] Last Admin: 10/12/20 08:44 Dose: 6 mg Documented by: Diltiazem HCl (Diltiazem Cd 240 Mg Capsule) 240 mg PO DAILY [facility] Last Admin: 10/12/20 08:44 Dose: 240 mg Documented by: Finasteride (Finasteride 5 Mg Tablet) 5 mg PO DAILY [facility] Last Admin: 10/12/20 08:45 Dose: 5 mg Documented by: Furosemide (Furosemide 20 Mg/2 Ml Vial) 20 mg IV DAILY [facility] Last Admin: 10/12/20 08:45 Dose: 20 mg Documented by: Lorazepam (Lorazepam 2 Mg/Ml Syringe) 0.5 mg IV Q4H PRN PRN PRN Reason: severe agitation w/BIPAP use Last Admin: 10/12/20 23:21 Dose: 0.5 mg Documented by: Metoprolol Tartrate (Metoprolol Tartrate 100 Mg Tablet) 100 mg PO BID [facility] Last Admin: 10/12/20 20:28 Dose: 100 mg Documented by: Miscellaneous Information (Inhaler, Assist Devices 1 Each Spacer) 1 each INHALATION PRN PRN PRN Reason: WITH ALBUTEROL INHALER Last Admin: 10/03/20 23:35 Dose: 1 each Documented by: Nitroglycerin (Nitroglycerin (Inpatient Use) 0.4 Mg Tab.Subl) 0.4 mg SUBLINGUAL Q5M PRN PRN Reason: CARDIAC/CHEST PAIN Ondansetron HCl (Ondansetron 4 Mg/2 Ml Vial) 4 mg IV Q8H PRN PRN PRN Reason: NAUSEA/VOMITING Polyethylene Glycol (Polyethylene Glycol 3350 17 Gm Packet) 17 gm PO DAILY [facility] Last Admin: 10/12/20 08:47 Dose: Not Given Documented by: Sodium Chloride (0.9% Saline Lock 10 Ml Syringe) 10 - 40 ml IV UD PRN PRN Reason: SALINE FLUSH Last Admin: 10/12/20 23:21 Dose: 10 ml Documented by: Tamsulosin HCl (Tamsulosin Hcl 0.4 Mg Capsule) 0.8 mg PO DAILY@2200 [facility] Last Admin: 10/12/20 20:29 Dose: 0.8 mg Documented by: Throat Lozenges (Benzocaine/Menthol 1 Lozenge) 1 lozenge MUCOUS MEM Q2H PRN PRN PRN Reason: SORE THROAT Last Admin: 10/05/20 21:45 Dose: 1 lozenge Documented by: STROKE Vital Signs/Narrative: Vital Signs Pulse Resp Pulse Ox 10/13/20 07:24 91 10/13/20 07:19 77 22 H 92 Medical Necessity - Tobacco Use Smoking Status: Former smoker Tobacco Use: Non-smoker Assessment/Plan All Active Problems (Last Reviewed 07/25/20 @ 11:17 by Anai Capellan PA, PA) COVID-19 (Acute) Atrial fibrillation with RVR (Acute) Acute respiratory failure with hypoxia (Acute) H/O oral surgery (Resolved) History of left cataract surgery (Resolved) TIA (transient ischemic attack) (Acute 01/09/19) Left-sided weakness (Acute) Leg edema (Acute) Edema (Acute) 75-year-old gentleman admitted with shortness of breath consistent COVID-19 pneumonia 1. acute hypoxic respiratory failure and COPD exacerbation secondary to COVID-19 pneumonia: On high flow humidified oxygen, AIRVO, BiPAP nightly. Patient had dose of Lasix on 10/05. Currently pulse ox 95% on BiPAP. Net negative fluid balance -1 L. On Lasix 20 mg IV daily. 10/08 mild tachycardic. Mild increase in BUN 35 but creatinine is good. Electrolytes in acceptable limit. 10/09: Patient is still on humidified high flow oxygen. BUN/creatinine on baseline. K4.5. Continue low-dose Lasix 20 mg IV daily. 10/10: Patient is negative -3.5 L fluid balance. Continue bronchopulmonary hygiene PEP and incentive spirometry. On humidified high flow oxygen. Patient completed remdesivir on 10/07. 10/11: Negative fluid balance -4.2 L. Still on high flow oxygen. 10/12: Patient on high flow oxygen. Not tachypneic or dyspnea. Negative fluid balance, -5.2. Seen by signal maintainer. 10/13: Patient does not have dyspnea at rest. Still on BiPAP alternating with AIRVO 2. acute COVID 19 pneumonia: On dexamethasone and remdesivir. 10/12: Patient completed remdesivir on 10/07. 3. afib w RVR: Heart rate is controlled. On metoprolol diltiazem and Eliquis. 4. hypokalemia: Potassium normal. Magnesium 1.9 on 10/03. Hypokalemia resolved. 10/10: Serum electrolytes are in normal range 5. History of bilateral pulmonary embolism, pulmonary artery hypertension: On Eliquis. 6. Mild constipation: Started on senna S and MiraLAX. 10/09: Patient had good bowel movement. 10/13: Patient having good bowel movement. Constipation resolved Inpatient E&M: [id number] [facility] Hosp L2
[2020-10-13] MEDS: Menthol/Lanolin/Calamine/Znox 113 GM Tube 1 APPLIC TOPICAL ×2 (11:10→20:44)
[2020-10-13] MEDS: dexAMETHasone 2 MG TABLET 6 MG PO (11:10)
[2020-10-13] MEDS: 0.9% Saline Lock 10 ML Syringe IV (11:11)
[2020-10-13] MEDS: Furosemide 20 MG/2 ML VIAL IV (11:11)
[2020-10-13] MEDS: Finasteride 5 MG Tablet PO (11:11)
[2020-10-13] MEDS: APIXABAN 5 MG TABLET PO ×2 (11:11→20:44)
[2020-10-13] MEDS: Metoprolol Tartrate 100 MG Tablet PO ×2 (11:11→20:45)
[2020-10-13] MEDS: dilTIAZem CD 240 MG Capsule PO (11:12)
[2020-10-13] MEDS: Tamsulosin HCl 0.4 MG Capsule 0.8 MG PO (20:44)
[2020-10-13] MEDS: Atorvastatin Calcium 10 MG Tablet PO (20:45)
[2020-10-13] MEDS: LORazepam 2 MG/ML Syringe 0.5 MG IV (23:44)
[2020-10-14] VITALS (17 sets, daily range): BP systolic 102–123; BP diastolic 60–68; PULSE 61–98; RESP 12–20; TEMP 36.4–36.7; O2SAT 93–98
[2020-10-14 06:51] LABS: Absolute Lymphocyte Count 0.49 X10^3/uL (0.83-4.51); Absolute Neutrophil Count 17.4 X10^3/uL (2.0-7.7); Basophil# 0.09 X10^3/uL; Basophil% 0.4 % (0-1); Hematocrit 40.6 % (40-54); Hemoglobin 12.8 g/dL (13.0-16.5); Lymphocyte # 0.49 X10^3/ul (4.0); Lymphocyte % 2.4 % (19-41); Mean Corp Hgb Conc 31.5 g/dL (32-36); Mean Corpuscular Hgb 29.9 pg (27.0-32.0); Mean Corpuscular Volume 94.9 fL (80-94); Mean Platelet Vol. 10.4 fl (6.2-12.0); Monocyte# 1.27 X10^3/uL; Monocyte% 6.3 % (0-10); NRBC Flagged by Analyzer 0 % (0-5); Neutrophil # 17.36 X10^3/uL (2.7-7.7); Neutrophil % 86.9 % (47-70); POSITIVE DIFFERENTIAL YES; Platelet Count 394 K/mm3 (150-450); RBC Distribution Width CV 13.7 % (11.6-14.6); RBC Distribution Width SD 47.7 fl (35.1-43.9); Red Blood Count 4.28 M/mm3 (4.6-6.2)
[2020-10-14 06:58] LABS: Differential Indicated SCAN CRITERIA MET
[2020-10-14 07:22] LABS: Anion Gap 7 (5-15); BUN 40 mg/dL (7-18); BUN/Creat Ratio 46.9 RATIO (10-20); Calcium,Total 9.4 mg/dL (8.5-10.1); Chloride 101 mmol/L (98-107); Creatinine, Serum 0.85 mg/dL (0.70-1.30); EST Glomerular Filtration Rate 93 mL/min (>60); Est Glom Filt Rate - Afr Amer 112 mL/min (>60); Estimated Creatinine Clearance 71.53 ml/min; Glucose 108 mg/dL (74-106); Sodium Level 137 mmol/L (136-145)
[2020-10-14] MEDS: dexAMETHasone 2 MG TABLET 6 MG PO (09:15)
[2020-10-14] MEDS: Metoprolol Tartrate 100 MG Tablet PO ×2 (09:15→20:04)
[2020-10-14] MEDS: dilTIAZem CD 240 MG Capsule PO (09:15)
[2020-10-14] MEDS: Furosemide 20 MG/2 ML VIAL IV (09:16)
[2020-10-14] MEDS: APIXABAN 5 MG TABLET PO ×2 (09:16→20:06)
[2020-10-14] MEDS: Finasteride 5 MG Tablet PO (09:16)
[2020-10-14] MEDS: 0.9% Saline Lock 10 ML Syringe IV (09:17)
[2020-10-14] MEDS: Menthol/Lanolin/Calamine/Znox 113 GM Tube 1 APPLIC TOPICAL ×2 (09:17→20:06)
--- NOTE | 2020-10-14 10:54 | PN_ITS ---
Patient Problems: Active and Suspected Problems (Last Reviewed 07/25/20 @ 11:17 by Anai Capellan PA, PA) COVID-19 (Acute) Atrial fibrillation with RVR (Acute) Acute respiratory failure with hypoxia (Acute) Subjective: Doing well, no issues overnight. Still on air Vo and BiPAP at night. Vitals/I&O's: Vital Signs Temp Pulse Resp BP Pulse Ox 97.9 F 98 18 123/60 H 94 10/14/20 09:12 10/14/20 09:15 10/14/20 09:12 10/14/20 09:12 10/14/20 09:12 Oxygen Flow Rate (L/min) 60 Oxygen Delivery Method Airvo Weight: 229 lb 4.8 oz Body Mass Index (BMI) 36.5 Finger Stick Blood Glucose 164 Intake and Output for Last 24 Hours 10/12/20 10/13/20 10/14/20 23:59 23:59 23:59 Intake Total 500 / 500 1480 / 1480 700 / 700 Output Total 1750 / 1750 2050 / 2200 450 / 450 Balance -1250 / -1250 -570 / -720 250 / 250 General: Alert, Oriented x3, Cooperative, No apparent distress HEENT: Atraumatic, PERRLA, EOMI, Normocephalic Oral: Moist Mucosa Neck: Supple, No JVD Lungs: Normal air movement, No rhonchi, No wheeze, No rales, Diminished Cardiovascular: Regular rate, Regular Rhythm, Normal S1, Normal S2, Murmur - Chronic ZHEN Abdomen: Soft, Non Tender, Non-Distended, No Hepato-splenomegaly Extremities: No edema, Capillary Refill Less than 3 Seconds Skin: No rashes, No breakdown Neurological: Neuro grossly intact, Sensory exam intact to light touch and pain Psych/Mental Status: Normal Affect, Appropriate Laboratory Results 10/14/20 05:50: WBC 20.0 H, RBC 4.28 L, Hgb 12.8 L, Hct 40.6, MCV 94.9 H, MCH 29.9, MCHC 31.5 L, RDW Std Deviation 47.7 H, RDW Coeff of Zackary 13.7, Plt Count 394, MPV 10.4, Immature Gran % (Auto) 4.000 H, Neut % (Auto) 86.9 H, Lymph % (Auto) 2.4 L, [place] % (Auto) 6.3, Eos % (Auto) 0.0, Baso % (Auto) 0.4, Absolute Neuts (auto) 17.4 H, Absolute Lymphs (auto) 0.49 L, Nucleated RBC % 0 10/14/20 05:50: Sodium 137, Potassium 4.0, Chloride 101, Carbon Dioxide 29.0, Anion Gap 7, BUN 40 H, Creatinine 0.85, Estim Creat Clear Calc 71.53, Est GFR (MDRD) Af Amer 112, Est GFR (MDRD) Non-Af 93, BUN/Creatinine Ratio 46.9 H, Glucose 108 H, Calcium 9.4 Current Medications Acetaminophen (Acetaminophen 325 Mg Tablet) 650 mg PO Q6H PRN PRN PRN Reason: Pain Score 1-10/Temp > 100.7 F Last Admin: 10/08/20 21:13 Dose: 650 mg Documented by: Al Hydroxide/Mg Hydroxide (Mag Hydrox/Al Hydrox/Simeth 30 Ml Udc) 30 ml PO Q6H PRN PRN PRN Reason: Gastric Burning Albuterol Sulfate (Albuterol Ih 8.5 Gm (Proair) Inhaler (200 Puffs)) 2 puff INHALATION Q4H [facility] Last Admin: 10/14/20 09:16 Dose: 2 puff Documented by: Apixaban (Apixaban 5 Mg Tablet) 5 mg PO BID [facility] Last Admin: 10/14/20 09:16 Dose: 5 mg Documented by: Atorvastatin Calcium (Atorvastatin Calcium 10 Mg Tablet) 10 mg PO QHS [facility] Last Admin: 10/13/20 20:45 Dose: 10 mg Documented by: Calamine/Phenol (Menthol/Lanolin/Calamine/Znox 113 Gm Tube) 1 applic TOPICAL BID [facility]; Protocol Last Admin: 10/14/20 09:17 Dose: 1 applicatio Documented by: Dexamethasone (Dexamethasone 2 Mg Tablet) 6 mg PO DAILY [facility] Last Admin: 10/14/20 09:15 Dose: 6 mg Documented by: Diltiazem HCl (Diltiazem Cd 240 Mg Capsule) 240 mg PO DAILY [facility] Last Admin: 10/14/20 09:15 Dose: 240 mg Documented by: Finasteride (Finasteride 5 Mg Tablet) 5 mg PO DAILY [facility] Last Admin: 10/14/20 09:16 Dose: 5 mg Documented by: Furosemide (Furosemide 20 Mg/2 Ml Vial) 20 mg IV DAILY [facility] Last Admin: 10/14/20 09:16 Dose: 20 mg Documented by: Lorazepam (Lorazepam 2 Mg/Ml Syringe) 0.5 mg IV Q4H PRN PRN PRN Reason: severe agitation w/BIPAP use Last Admin: 10/13/20 23:44 Dose: 0.5 mg Documented by: Metoprolol Tartrate (Metoprolol Tartrate 100 Mg Tablet) 100 mg PO BID [facility] Last Admin: 10/14/20 09:15 Dose: 100 mg Documented by: Miscellaneous Information (Inhaler, Assist Devices 1 Each Spacer) 1 each INHALATION PRN PRN PRN Reason: WITH ALBUTEROL INHALER Last Admin: 10/03/20 23:35 Dose: 1 each Documented by: Nitroglycerin (Nitroglycerin (Inpatient Use) 0.4 Mg Tab.Subl) 0.4 mg SUBLINGUAL Q5M PRN PRN Reason: CARDIAC/CHEST PAIN Ondansetron HCl (Ondansetron 4 Mg/2 Ml Vial) 4 mg IV Q8H PRN PRN PRN Reason: NAUSEA/VOMITING Polyethylene Glycol (Polyethylene Glycol 3350 17 Gm Packet) 17 gm PO DAILY [facility] Last Admin: 10/14/20 09:16 Dose: Not Given Documented by: Sodium Chloride (0.9% Saline Lock 10 Ml Syringe) 10 - 40 ml IV UD PRN PRN Reason: SALINE FLUSH Last Admin: 10/14/20 09:17 Dose: 10 ml Documented by: Tamsulosin HCl (Tamsulosin Hcl 0.4 Mg Capsule) 0.8 mg PO DAILY@2200 [facility] Last Admin: 10/13/20 20:44 Dose: 0.8 mg Documented by: Throat Lozenges (Benzocaine/Menthol 1 Lozenge) 1 lozenge MUCOUS MEM Q2H PRN PRN PRN Reason: SORE THROAT Last Admin: 10/05/20 21:45 Dose: 1 lozenge Documented by: STROKE Vital Signs/Narrative: Vital Signs Temp Pulse Resp BP Pulse Ox 10/14/20 09:15 98 10/14/20 09:12 97.9 F 98 18 123/60 H 94 10/14/20 07:00 81 Medical Necessity - Tobacco Use Smoking Status: Former smoker Tobacco Use: Non-smoker Assessment/Plan All Active Problems (Last Reviewed 07/25/20 @ 11:17 by Anai Capellan PA, PA) COVID-19 (Acute) Atrial fibrillation with RVR (Acute) Acute respiratory failure with hypoxia (Acute) H/O oral surgery (Resolved) History of left cataract surgery (Resolved) TIA (transient ischemic attack) (Acute 01/09/19) Left-sided weakness (Acute) Leg edema (Acute) Edema (Acute) 1. Acute hypoxic respiratory failure and COPD exacerbation secondary to COVID- 19 pneumonia/history of PE -Remdesivir has been completed, as has Decadron -Appreciate pulmonology assistance -Continue with incentive spirometry -Has negative fluid balance of 6.5 L, will continue with very low dose of IV Lasix -Leukocytosis is likely reactive temperature is normal -Continue with Eliquis 2. HTN/HLD/A. fib with RVR -Blood pressure stable -Continue with his blood pressure medications as well as his rate control medications -Continue with statin -Continue with Eliquis 3. BPH -Stable -Continue with Flomax and finasteride DVT: Eliquis Inpatient E&M: 02876 Subs Hosp L2
--- NOTE | 2020-10-14 11:00 | PN_ITS ---
Patient Problems: Active and Suspected Problems (Last Reviewed 07/25/20 @ 11:17 by Anai Capellan PA, PA) COVID-19 (Acute) Atrial fibrillation with RVR (Acute) Acute respiratory failure with hypoxia (Acute) Subjective: Patient did okay overnight. Patient still reporting dyspnea on exertion, but feels comfortable at rest. Patient denies any chest pain or diarrhea. Patient did have questions about how long this will last. - Physical Exam Vitals/I&O's: Vital Signs Temp Pulse Resp BP Pulse Ox 36.6 C 98 18 123/60 H 94 10/14/20 09:12 10/14/20 09:15 10/14/20 09:12 10/14/20 09:12 10/14/20 09:12 Oxygen Flow Rate (L/min) 60 Oxygen Delivery Method Airvo Weight: 104.009 kg Body Mass Index (BMI) 36.5 Finger Stick Blood Glucose 164 Intake and Output for Last 24 Hours 10/12/20 10/13/20 10/14/20 23:59 23:59 23:59 Intake Total 500 / 500 1480 / 1480 700 / 700 Output Total 1750 / 1750 2050 / 2200 450 / 450 Balance -1250 / -1250 -570 / -720 250 / 250 General: Alert, Oriented x3, Cooperative, No apparent distress, - - No conversational dyspnea. Obese. HEENT: Atraumatic, PERRLA, EOMI, Normocephalic, - - Slight scleral injection without icterus Oral: Moist Mucosa, No Gingival or Mucosal Lesions/ Ulcerations, - - Crowded posterior pharynx Neck: Supple, No Nodes, Trachea Midline Lungs: No rhonchi, No wheeze, No rales, Diminished Cardiovascular: Regular rate, Regular Rhythm, Normal S1, Normal S2, No murmurs, No rub noted, No Gallop Abdomen: Bowel Sounds Present, Soft, Non Tender, Non-Distended, Obese Extremities: No clubbing, No cyanosis, No edema Skin: No breakdown Musculoskeletal: No Tenderness to Palpation of Joints or Extremities Lymphatic: No Cervical, Supraclavicular, or Inguinal Adenopathy Neurological: Cranial nerves II-XII grossly intact, Neuro grossly intact, Motor Exam 5/5 strength throughout Psych/Mental Status: Alert and oriented to time, place, person, mood and affect Laboratory Results 10/14/20 05:50: WBC 20.0 H, RBC 4.28 L, Hgb 12.8 L, Hct 40.6, MCV 94.9 H, MCH 29.9, MCHC 31.5 L, RDW Std Deviation 47.7 H, RDW Coeff of Zackary 13.7, Plt Count 394, MPV 10.4, Immature Gran % (Auto) 4.000 H, Neut % (Auto) 86.9 H, Lymph % (Auto) 2.4 L, [place] % (Auto) 6.3, Eos % (Auto) 0.0, Baso % (Auto) 0.4, Absolute Neuts (auto) 17.4 H, Absolute Lymphs (auto) 0.49 L, Nucleated RBC % 0 10/14/20 05:50: Sodium 137, Potassium 4.0, Chloride 101, Carbon Dioxide 29.0, Anion Gap 7, BUN 40 H, Creatinine 0.85, Estim Creat Clear Calc 71.53, Est GFR (MDRD) Af Amer 112, Est GFR (MDRD) Non-Af 93, BUN/Creatinine Ratio 46.9 H, Glucose 108 H, Calcium 9.4 Current Medications Acetaminophen (Acetaminophen 325 Mg Tablet) 650 mg PO Q6H PRN PRN PRN Reason: Pain Score 1-10/Temp > 100.7 F Last Admin: 10/08/20 21:13 Dose: 650 mg Documented by: Al Hydroxide/Mg Hydroxide (Mag Hydrox/Al Hydrox/Simeth 30 Ml Udc) 30 ml PO Q6H PRN PRN PRN Reason: Gastric Burning Albuterol Sulfate (Albuterol Ih 8.5 Gm (Proair) Inhaler (200 Puffs)) 2 puff INHALATION Q4H [facility] Last Admin: 10/14/20 09:16 Dose: 2 puff Documented by: Apixaban (Apixaban 5 Mg Tablet) 5 mg PO BID [facility] Last Admin: 10/14/20 09:16 Dose: 5 mg Documented by: Atorvastatin Calcium (Atorvastatin Calcium 10 Mg Tablet) 10 mg PO QHS [facility] Last Admin: 10/13/20 20:45 Dose: 10 mg Documented by: Calamine/Phenol (Menthol/Lanolin/Calamine/Znox 113 Gm Tube) 1 applic TOPICAL BID [facility]; Protocol Last Admin: 10/14/20 09:17 Dose: 1 applicatio Documented by: Diltiazem HCl (Diltiazem Cd 240 Mg Capsule) 240 mg PO DAILY [facility] Last Admin: 10/14/20 09:15 Dose: 240 mg Documented by: Finasteride (Finasteride 5 Mg Tablet) 5 mg PO DAILY [facility] Last Admin: 10/14/20 09:16 Dose: 5 mg Documented by: Furosemide (Furosemide 20 Mg/2 Ml Vial) 20 mg IV DAILY [facility] Last Admin: 10/14/20 09:16 Dose: 20 mg Documented by: Lorazepam (Lorazepam 2 Mg/Ml Syringe) 0.5 mg IV Q4H PRN PRN PRN Reason: severe agitation w/BIPAP use Last Admin: 10/13/20 23:44 Dose: 0.5 mg Documented by: Metoprolol Tartrate (Metoprolol Tartrate 100 Mg Tablet) 100 mg PO BID [facility] Last Admin: 10/14/20 09:15 Dose: 100 mg Documented by: Miscellaneous Information (Inhaler, Assist Devices 1 Each Spacer) 1 each INHALATION PRN PRN PRN Reason: WITH ALBUTEROL INHALER Last Admin: 10/03/20 23:35 Dose: 1 each Documented by: Nitroglycerin (Nitroglycerin (Inpatient Use) 0.4 Mg Tab.Subl) 0.4 mg SUBLINGUAL Q5M PRN PRN Reason: CARDIAC/CHEST PAIN Ondansetron HCl (Ondansetron 4 Mg/2 Ml Vial) 4 mg IV Q8H PRN PRN PRN Reason: NAUSEA/VOMITING Polyethylene Glycol (Polyethylene Glycol 3350 17 Gm Packet) 17 gm PO DAILY [facility] Last Admin: 10/14/20 09:16 Dose: Not Given Documented by: Sodium Chloride (0.9% Saline Lock 10 Ml Syringe) 10 - 40 ml IV UD PRN PRN Reason: SALINE FLUSH Last Admin: 10/14/20 09:17 Dose: 10 ml Documented by: Tamsulosin HCl (Tamsulosin Hcl 0.4 Mg Capsule) 0.8 mg PO DAILY@2200 [facility] Last Admin: 10/13/20 20:44 Dose: 0.8 mg Documented by: Throat Lozenges (Benzocaine/Menthol 1 Lozenge) 1 lozenge MUCOUS MEM Q2H PRN PRN PRN Reason: SORE THROAT Last Admin: 10/05/20 21:45 Dose: 1 lozenge Documented by: Medical Necessity - Tobacco Use Smoking Status: Former smoker Tobacco Use: Non-smoker Assessment/Plan All Active Problems (Last Reviewed 07/25/20 @ 11:17 by Anai Capellan PA, PA) COVID-19 (Acute) Atrial fibrillation with RVR (Acute) Acute respiratory failure with hypoxia (Acute) H/O oral surgery (Resolved) History of left cataract surgery (Resolved) TIA (transient ischemic attack) (Acute 01/09/19) Left-sided weakness (Acute) Leg edema (Acute) Edema (Acute) RECOMMENDATIONS: 1. Continue to wean FiO2 to maintain saturations at or above 90%. 2. Continue noninvasive positive pressure ventilatory support nightly, as tolerated by patient. 3. Continue Decadron to complete 10-day treatment course. 4. Continue systemic anticoagulation with Eliquis. 5. Continue gentle diuresis as tolerated by hemodynamics and renal function. Order additional doses on daily basis as permitted by renal function 6. Encourage incentive spirometer use and mobilize patient as tolerated. IMPRESSIONS: 1. Acute hypoxic respiratory failure secondary to COVID-19 pneumonia/COPD exacerbation Stable at this time on heated high flow supplemental oxygen. The patient does have significant bilateral infiltrates on chest imaging. The patient has completed his treatment course of remdesivir and will remain on Decadron to complete a 10-day course. The patient will also be continued on systemic anticoagulation with Eliquis along with IV diuretic therapy as tolerated by hemodynamics and renal function. Continue to wean FiO2 to maintain oxygen saturations at or above 90%. Patient understands that disposition will require tolerance of 6 L or less FiO2 to maintain saturations. 2. A. fib with RVR/cor pulmonale Continue baseline cardiac medications and diuretic therapy. Hemodynamics remain stable. This may lead to a protracted course given baseline RV dysfunction 3. BPH/hyperlipidemia/advanced age/obesity Complicates care, management, recovery and prognosis. Continue home medications as indicated. Inpatient E&M: 86469 Subs Hosp L2
[2020-10-14] MEDS: Atorvastatin Calcium 10 MG Tablet PO (20:04)
[2020-10-14] MEDS: Tamsulosin HCl 0.4 MG Capsule 0.8 MG PO (20:06)
[2020-10-14] MEDS: LORazepam 2 MG/ML Syringe 0.5 MG IV (22:28)
[2020-10-15] VITALS (16 sets, daily range): BP systolic 101–116; BP diastolic 58–71; PULSE 60–93; RESP 12–22; TEMP 36.5–36.7; O2SAT 93–99
[2020-10-15] MEDS: Finasteride 5 MG Tablet PO (08:13)
[2020-10-15] MEDS: Furosemide 20 MG/2 ML VIAL IV (08:13)
[2020-10-15] MEDS: Metoprolol Tartrate 100 MG Tablet PO ×2 (08:13→20:29)
[2020-10-15] MEDS: dilTIAZem CD 240 MG Capsule PO (08:14)
[2020-10-15] MEDS: APIXABAN 5 MG TABLET PO ×2 (08:14→20:28)
[2020-10-15] MEDS: 0.9% Saline Lock 10 ML Syringe IV ×2 (08:15→16:55)
[2020-10-15] MEDS: Menthol/Lanolin/Calamine/Znox 113 GM Tube 1 APPLIC TOPICAL ×2 (08:17→20:28)
--- NOTE | 2020-10-15 09:15 | PN_ITS ---
Patient Problems: Active and Suspected Problems (Last Reviewed 07/25/20 @ 11:17 by Anai Capellan PA, PA) COVID-19 (Acute) Atrial fibrillation with RVR (Acute) Acute respiratory failure with hypoxia (Acute) Subjective: Patient did okay overnight. Patient reports subjective improvement compared to previous. Patient did wear BiPAP overnight without complication. No fever was noted. Patient continues to report a periodic cough that is intermittently productive. - Physical Exam Vitals/I&O's: Vital Signs Temp Pulse Resp BP Pulse Ox 36.7 C 75 18 109/63 94 10/15/20 08:19 10/15/20 08:19 10/15/20 08:19 10/15/20 08:19 10/15/20 08:19 Oxygen Flow Rate (L/min) 55 Oxygen Delivery Method Airvo Weight: 104.009 kg Body Mass Index (BMI) 36.5 Finger Stick Blood Glucose 164 Intake and Output for Last 24 Hours 10/13/20 10/14/20 10/15/20 23:59 23:59 23:59 Intake Total 1480 / 1480 2560 / 2560 240 / 240 Output Total 2050 / 2200 1825 / 1825 250 / 250 Balance -570 / -720 735 / 735 -10 / -10 General: Alert, Oriented x3, Cooperative, No apparent distress, - - No conversational dyspnea HEENT: Atraumatic, PERRLA, EOMI, Normocephalic, - - No scleral icterus Oral: Moist Mucosa, No Gingival or Mucosal Lesions/ Ulcerations Neck: Supple, No JVD, No Nodes, Trachea Midline Lungs: No rhonchi, No wheeze, No rales, Diminished Cardiovascular: Normal S1, Normal S2, No murmurs, Irregular Rate, No rub noted, No Gallop Abdomen: Bowel Sounds Present, Soft, Non Tender, Non-Distended, Obese Extremities: No clubbing, No cyanosis, Edema - Trace lower extremity Skin: - - No change compared to previous Musculoskeletal: No Tenderness to Palpation of Joints or Extremities Lymphatic: No Cervical, Supraclavicular, or Inguinal Adenopathy Neurological: Cranial nerves II-XII grossly intact, Neuro grossly intact, Motor Exam 5/5 strength throughout Psych/Mental Status: Alert and oriented to time, place, person, mood and affect Current Medications Acetaminophen (Acetaminophen 325 Mg Tablet) 650 mg PO Q6H PRN PRN PRN Reason: Pain Score 1-10/Temp > 100.7 F Last Admin: 10/08/20 21:13 Dose: 650 mg Documented by: Al Hydroxide/Mg Hydroxide (Mag Hydrox/Al Hydrox/Simeth 30 Ml Udc) 30 ml PO Q6H PRN PRN PRN Reason: Gastric Burning Albuterol Sulfate (Albuterol Ih 8.5 Gm (Proair) Inhaler (200 Puffs)) 2 puff INHALATION Q4H [facility] Last Admin: 10/15/20 08:15 Dose: 2 puff Documented by: Apixaban (Apixaban 5 Mg Tablet) 5 mg PO BID [facility] Last Admin: 10/15/20 08:14 Dose: 5 mg Documented by: Atorvastatin Calcium (Atorvastatin Calcium 10 Mg Tablet) 10 mg PO QHS [facility] Last Admin: 10/14/20 20:04 Dose: 10 mg Documented by: Calamine/Phenol (Menthol/Lanolin/Calamine/Znox 113 Gm Tube) 1 applic TOPICAL BID [facility]; Protocol Last Admin: 10/15/20 08:17 Dose: 1 applicatio Documented by: Diltiazem HCl (Diltiazem Cd 240 Mg Capsule) 240 mg PO DAILY [facility] Last Admin: 10/15/20 08:14 Dose: 240 mg Documented by: Finasteride (Finasteride 5 Mg Tablet) 5 mg PO DAILY [facility] Last Admin: 10/15/20 08:13 Dose: 5 mg Documented by: Furosemide (Furosemide 20 Mg/2 Ml Vial) 20 mg IV DAILY [facility] Last Admin: 10/15/20 08:13 Dose: 20 mg Documented by: Furosemide (Furosemide 40 Mg/4 Ml Vial) 40 mg IV X1 ONE Stop: 10/15/20 18:01 Lorazepam (Lorazepam 2 Mg/Ml Syringe) 0.5 mg IV Q4H PRN PRN PRN Reason: severe agitation w/BIPAP use Last Admin: 10/14/20 22:28 Dose: 0.5 mg Documented by: Metoprolol Tartrate (Metoprolol Tartrate 100 Mg Tablet) 100 mg PO BID [facility] Last Admin: 10/15/20 08:13 Dose: 100 mg Documented by: Miscellaneous Information (Inhaler, Assist Devices 1 Each Spacer) 1 each INHALATION PRN PRN PRN Reason: WITH ALBUTEROL INHALER Last Admin: 10/03/20 23:35 Dose: 1 each Documented by: Nitroglycerin (Nitroglycerin (Inpatient Use) 0.4 Mg Tab.Subl) 0.4 mg SUBLINGUAL Q5M PRN PRN Reason: CARDIAC/CHEST PAIN Ondansetron HCl (Ondansetron 4 Mg/2 Ml Vial) 4 mg IV Q8H PRN PRN PRN Reason: NAUSEA/VOMITING Polyethylene Glycol (Polyethylene Glycol 3350 17 Gm Packet) 17 gm PO DAILY [facility] Last Admin: 10/15/20 08:14 Dose: Not Given Documented by: Sodium Chloride (0.9% Saline Lock 10 Ml Syringe) 10 - 40 ml IV UD PRN PRN Reason: SALINE FLUSH Last Admin: 10/15/20 08:15 Dose: 10 ml Documented by: Tamsulosin HCl (Tamsulosin Hcl 0.4 Mg Capsule) 0.8 mg PO DAILY@2200 [facility] Last Admin: 10/14/20 20:06 Dose: 0.8 mg Documented by: Throat Lozenges (Benzocaine/Menthol 1 Lozenge) 1 lozenge MUCOUS MEM Q2H PRN PRN PRN Reason: SORE THROAT Last Admin: 10/05/20 21:45 Dose: 1 lozenge Documented by: Medical Necessity - Tobacco Use Smoking Status: Former smoker Tobacco Use: Non-smoker Assessment/Plan All Active Problems (Last Reviewed 07/25/20 @ 11:17 by Anai CHAMBERS, PA) COVID-19 (Acute) Atrial fibrillation with RVR (Acute) Acute respiratory failure with hypoxia (Acute) H/O oral surgery (Resolved) History of left cataract surgery (Resolved) TIA (transient ischemic attack) (Acute 01/09/19) Left-sided weakness (Acute) Leg edema (Acute) Edema (Acute) RECOMMENDATIONS: 1. Continue to wean FiO2 to maintain saturations at or above 90%. 2. Continue noninvasive positive pressure ventilatory support nightly, as tolerated by patient. 3. Continue Decadron to complete 10-day treatment course. 4. Continue systemic anticoagulation with Eliquis. 5. Continue gentle diuresis as tolerated by hemodynamics and renal function. Order additional doses on daily basis as permitted by renal function 6. Encourage incentive spirometer use and mobilize patient as tolerated. IMPRESSIONS: 1. Acute hypoxic respiratory failure secondary to COVID-19 pneumonia/COPD exacerbation Stable at this time on heated high flow supplemental oxygen. The patient does have significant bilateral infiltrates on chest imaging. The patient has completed his treatment course of remdesivir and will remain on Decadron to c omplete a 10-day course. The patient will also be continued on systemic anticoagulation with Eliquis along with IV diuretic therapy as tolerated by hemodynamics and renal function. Recheck electrolytes tomorrow as potassium may need to be repleted. Continue to wean FiO2 to maintain oxygen saturations at or above 90%. Patient understands that disposition will require tolerance of 6 L or less FiO2 to maintain saturations. 2. A. fib with RVR/cor pulmonale Continue baseline cardiac medications and diuretic therapy. Hemodynamics remain stable. This may lead to a protracted course given baseline RV dysfunction 3. BPH/hyperlipidemia/advanced age/obesity Complicates care, management, recovery and prognosis. Continue home medic ations as indicated. Inpatient E&M: 17901 Subs Hosp L2
--- NOTE | 2020-10-15 09:53 | PCM.PN.HOSP ---
Patient Problems: Active and Suspected Problems (Last Reviewed 07/25/20 @ 11:17 by Anai Capellan PA, PA) COVID-19 (Acute) Atrial fibrillation with RVR (Acute) Acute respiratory failure with hypoxia (Acute) Subjective: Doing well, no issues overnight. Stable. Vitals/I&O's: Vital Signs Temp Pulse Resp BP Pulse Ox 98.0 F 75 18 109/63 94 10/15/20 08:19 10/15/20 08:19 10/15/20 08:19 10/15/20 08:19 10/15/20 08:19 Oxygen Flow Rate (L/min) 55 Oxygen Delivery Method Airvo Weight: 229 lb 4.8 oz Body Mass Index (BMI) 36.5 Finger Stick Blood Glucose 164 Intake and Output for Last 24 Hours 10/13/20 10/14/20 10/15/20 23:59 23:59 23:59 Intake Total 1480 / 1480 2560 / 2560 240 / 240 Output Total 2050 / 2200 1825 / 1825 250 / 250 Balance -570 / -720 735 / 735 -10 / -10 General: Alert, Oriented x3, Cooperative, No apparent distress HEENT: Atraumatic, PERRLA, EOMI, Normocephalic Oral: Moist Mucosa Neck: Supple, No JVD Lungs: Normal air movement, No rhonchi, No wheeze, No rales, Diminished Cardiovascular: Regular rate, Regular Rhythm, Normal S1, Normal S2, Murmur - Chronic ZHEN Abdomen: Soft, Non Tender, Non-Distended, No Hepato-splenomegaly Extremities: No edema, Capillary Refill Less than 3 Seconds Skin: No rashes, No breakdown Neurological: Neuro grossly intact, Sensory exam intact to light touch and pain Psych/Mental Status: Normal Affect, Appropriate Current Medications Acetaminophen (Acetaminophen 325 Mg Tablet) 650 mg PO Q6H PRN PRN PRN Reason: Pain Score 1-10/Temp > 100.7 F Last Admin: 10/08/20 21:13 Dose: 650 mg Documented by: Al Hydroxide/Mg Hydroxide (Mag Hydrox/Al Hydrox/Simeth 30 Ml Udc) 30 ml PO Q6H PRN PRN PRN Reason: Gastric Burning Albuterol Sulfate (Albuterol Ih 8.5 Gm (Proair) Inhaler (200 Puffs)) 2 puff INHALATION Q4H [facility] Last Admin: 10/15/20 08:15 Dose: 2 puff Documented by: Apixaban (Apixaban 5 Mg Tablet) 5 mg PO BID [facility] Last Admin: 10/15/20 08:14 Dose: 5 mg Documented by: Atorvastatin Calcium (Atorvastatin Calcium 10 Mg Tablet) 10 mg PO QHS [facility] Last Admin: 10/14/20 20:04 Dose: 10 mg Documented by: Calamine/Phenol (Menthol/Lanolin/Calamine/Znox 113 Gm Tube) 1 applic TOPICAL BID [facility]; Protocol Last Admin: 10/15/20 08:17 Dose: 1 applicatio Documented by: Diltiazem HCl (Diltiazem Cd 240 Mg Capsule) 240 mg PO DAILY [facility] Last Admin: 10/15/20 08:14 Dose: 240 mg Documented by: Finasteride (Finasteride 5 Mg Tablet) 5 mg PO DAILY [facility] Last Admin: 10/15/20 08:13 Dose: 5 mg Documented by: Furosemide (Furosemide 20 Mg/2 Ml Vial) 20 mg IV DAILY [facility] Last Admin: 10/15/20 08:13 Dose: 20 mg Documented by: Furosemide (Furosemide 40 Mg/4 Ml Vial) 40 mg IV X1 ONE Stop: 10/15/20 18:01 Lorazepam (Lorazepam 2 Mg/Ml Syringe) 0.5 mg IV Q4H PRN PRN PRN Reason: severe agitation w/BIPAP use Last Admin: 10/14/20 22:28 Dose: 0.5 mg Documented by: Metoprolol Tartrate (Metoprolol Tartrate 100 Mg Tablet) 100 mg PO BID [facility] Last Admin: 10/15/20 08:13 Dose: 100 mg Documented by: Miscellaneous Information (Inhaler, Assist Devices 1 Each Spacer) 1 each INHALATION PRN PRN PRN Reason: WITH ALBUTEROL INHALER Last Admin: 10/03/20 23:35 Dose: 1 each Documented by: Nitroglycerin (Nitroglycerin (Inpatient Use) 0.4 Mg Tab.Subl) 0.4 mg SUBLINGUAL Q5M PRN PRN Reason: CARDIAC/CHEST PAIN Ondansetron HCl (Ondansetron 4 Mg/2 Ml Vial) 4 mg IV Q8H PRN PRN PRN Reason: NAUSEA/VOMITING Polyethylene Glycol (Polyethylene Glycol 3350 17 Gm Packet) 17 gm PO DAILY [facility] Last Admin: 10/15/20 08:14 Dose: Not Given Documented by: Sodium Chloride (0.9% Saline Lock 10 Ml Syringe) 10 - 40 ml IV UD PRN PRN Reason: SALINE FLUSH Last Admin: 10/15/20 08:15 Dose: 10 ml Documented by: Tamsulosin HCl (Tamsulosin Hcl 0.4 Mg Capsule) 0.8 mg PO DAILY@2200 [facility] Last Admin: 10/14/20 20:06 Dose: 0.8 mg Documented by: Throat Lozenges (Benzocaine/Menthol 1 Lozenge) 1 lozenge MUCOUS MEM Q2H PRN PRN PRN Reason: SORE THROAT Last Admin: 10/05/20 21:45 Dose: 1 lozenge Documented by: STROKE Vital Signs/Narrative: Vital Signs Temp Pulse Resp BP Pulse Ox 10/15/20 08:19 98.0 F 75 18 109/63 94 10/15/20 08:13 60 10/15/20 07:00 81 Medical Necessity - Tobacco Use Smoking Status: Former smoker Tobacco Use: Non-smoker Assessment/Plan All Active Problems (Last Reviewed 07/25/20 @ 11:17 by Anai Capellan PA, PA) COVID-19 (Acute) Atrial fibrillation with RVR (Acute) Acute respiratory failure with hypoxia (Acute) H/O oral surgery (Resolved) History of left cataract surgery (Resolved) TIA (transient ischemic attack) (Acute 01/09/19) Left-sided weakness (Acute) Leg edema (Acute) Edema (Acute) 1. Acute hypoxic respiratory failure and COPD exacerbation secondary to COVID-19 pneumonia/history of PE -Remdesivir has been completed, as has Decadron -Appreciate pulmonology assistance -Continue with incentive spirometry -Has negative fluid balance of 6 L, will continue with very low dose of IV Lasix -Leukocytosis is likely reactive temperature is normal -Continue with Eliquis 2. HTN/HLD/A. fib with RVR -Blood pressure stable -Continue with his blood pressure medications as well as his rate control medications -Continue with statin -Continue with Eliquis 3. BPH -Stable -Continue with Flomax and finasteride DVT: Eliquis Inpatient E&M: 39418 Subs Hosp L2
--- NOTE | 2020-10-15 15:17 | CASEMGMT ---
RN CM Continued Stay Note: Remains on Airvo. Ambulated with PT without assisted device and had good stability. DC planning discussed with physician re: LTACH vs continuing care and plan to return home. Will continue to follow and assist with dc planning- no referral to LTACH @ this time. Kesha MENDEZN RN ACM
[2020-10-15] MEDS: Furosemide 40 MG/4 ML Vial IV (16:55)
[2020-10-15] MEDS: Tamsulosin HCl 0.4 MG Capsule 0.8 MG PO (20:28)
[2020-10-15] MEDS: Atorvastatin Calcium 10 MG Tablet PO (20:29)
[2020-10-15] MEDS: LORazepam 2 MG/ML Syringe 0.5 MG IV (23:34)
[2020-10-16] VITALS (15 sets, daily range): BP systolic 98–117; BP diastolic 64–75; PULSE 65–97; RESP 12–20; TEMP 36.2–36.6; O2SAT 90–97
[2020-10-16 07:23] LABS: Anion Gap 2 (5-15); BUN 47 mg/dL (7-18); BUN/Creat Ratio 50.5 RATIO (10-20); Calcium,Total 9.2 mg/dL (8.5-10.1); Chloride 102 mmol/L (98-107); Creatinine, Serum 0.93 mg/dL (0.70-1.30); EST Glomerular Filtration Rate 84 mL/min (>60); Est Glom Filt Rate - Afr Amer 101 mL/min (>60); Estimated Creatinine Clearance 65.38 ml/min; Glucose 86 mg/dL (74-106); Potassium 3.9 mmol/L (3.5-5.1); Sodium Level 137 mmol/L (136-145)
--- NOTE | 2020-10-16 09:52 | PCM.PN.HOSP ---
Patient Problems: Active and Suspected Problems (Last Reviewed 07/25/20 @ 11:17 by Anai Capellan PA, PA) COVID-19 (Acute) Atrial fibrillation with RVR (Acute) Acute respiratory failure with hypoxia (Acute) Subjective: Continues to be stable on air Vo, will have to look into long-term care facility for discharge planning Vitals/I&O's: Vital Signs Temp Pulse Resp BP Pulse Ox 97.9 F 91 18 103/66 94 10/16/20 06:04 10/16/20 07:04 10/16/20 06:04 10/16/20 06:04 10/16/20 07:04 Oxygen Flow Rate (L/min) 55 Oxygen Delivery Method Airvo Weight: 229 lb 4.8 oz Body Mass Index (BMI) 36.5 Finger Stick Blood Glucose 164 Intake and Output for Last 24 Hours 10/14/20 10/15/20 10/16/20 23:59 23:59 23:59 Intake Total 2560 / 2560 890 / 890 Output Total 1825 / 1825 1600 / 2125 725 / 725 Balance 735 / 735 -710 / -1235 -725 / -725 General: Alert, Oriented x3, Cooperative, No apparent distress HEENT: Atraumatic, PERRLA, EOMI, Normocephalic Oral: Moist Mucosa Neck: Supple, No JVD Lungs: Normal air movement, No rhonchi, No wheeze, No rales, Diminished Cardiovascular: Regular rate, Regular Rhythm, Normal S1, Normal S2, Murmur - Chronic ZHEN Abdomen: Soft, Non Tender, Non-Distended, No Hepato-splenomegaly Extremities: No edema, Capillary Refill Less than 3 Seconds Skin: No rashes, No breakdown Neurological: Neuro grossly intact, Sensory exam intact to light touch and pain Psych/Mental Status: Normal Affect, Appropriate Laboratory Results 10/16/20 06:10: Sodium 137, Potassium 3.9, Chloride 102, Carbon Dioxide 33.0 H, Anion Gap 2 L, BUN 47 H, Creatinine 0.93, Estim Creat Clear Calc 65.38, Est GFR (MDRD) Af Amer 101, Est GFR (MDRD) Non-Af 84, BUN/Creatinine Ratio 50.5 H, Glucose 86, Calcium 9.2 Current Medications Acetaminophen (Acetaminophen 325 Mg Tablet) 650 mg PO Q6H PRN PRN PRN Reason: Pain Score 1-10/Temp > 100.7 F Last Admin: 10/08/20 21:13 Dose: 650 mg Documented by: Al Hydroxide/Mg Hydroxide (Mag Hydrox/Al Hydrox/Simeth 30 Ml Udc) 30 ml PO Q6H PRN PRN PRN Reason: Gastric Burning Albuterol Sulfate (Albuterol Ih 8.5 Gm (Proair) Inhaler (200 Puffs)) 2 puff INHALATION Q4H [facility] Last Admin: 10/16/20 06:04 Dose: 2 puff Documented by: Apixaban (Apixaban 5 Mg Tablet) 5 mg PO BID [facility] Last Admin: 10/15/20 20:28 Dose: 5 mg Documented by: Atorvastatin Calcium (Atorvastatin Calcium 10 Mg Tablet) 10 mg PO QHS [facility] Last Admin: 10/15/20 20:29 Dose: 10 mg Documented by: Calamine/Phenol (Menthol/Lanolin/Calamine/Znox 113 Gm Tube) 1 applic TOPICAL BID [facility]; Protocol Last Admin: 10/15/20 20:28 Dose: 1 applicatio Documented by: Diltiazem HCl (Diltiazem Cd 240 Mg Capsule) 240 mg PO DAILY [facility] Last Admin: 10/15/20 08:14 Dose: 240 mg Documented by: Finasteride (Finasteride 5 Mg Tablet) 5 mg PO DAILY [facility] Last Admin: 10/15/20 08:13 Dose: 5 mg Documented by: Furosemide (Furosemide 20 Mg/2 Ml Vial) 20 mg IV DAILY [facility] Last Admin: 10/15/20 08:13 Dose: 20 mg Documented by: Lorazepam (Lorazepam 2 Mg/Ml Syringe) 0.5 mg IV Q4H PRN PRN PRN Reason: severe agitation w/BIPAP use Last Admin: 10/15/20 23:34 Dose: 0.5 mg Documented by: Metoprolol Tartrate (Metoprolol Tartrate 100 Mg Tablet) 100 mg PO BID [facility] Last Admin: 10/15/20 20:29 Dose: 100 mg Documented by: Miscellaneous Information (Inhaler, Assist Devices 1 Each Spacer) 1 each INHALATION PRN PRN PRN Reason: WITH ALBUTEROL INHALER Last Admin: 10/03/20 23:35 Dose: 1 each Documented by: Nitroglycerin (Nitroglycerin (Inpatient Use) 0.4 Mg Tab.Subl) 0.4 mg SUBLINGUAL Q5M PRN PRN Reason: CARDIAC/CHEST PAIN Ondansetron HCl (Ondansetron 4 Mg/2 Ml Vial) 4 mg IV Q8H PRN PRN PRN Reason: NAUSEA/VOMITING Polyethylene Glycol (Polyethylene Glycol 3350 17 Gm Packet) 17 gm PO DAILY [facility] Last Admin: 10/15/20 08:14 Dose: Not Given Documented by: Sodium Chloride (0.9% Saline Lock 10 Ml Syringe) 10 - 40 ml IV UD PRN PRN Reason: SALINE FLUSH Last Admin: 10/15/20 16:55 Dose: 10 ml Documented by: Tamsulosin HCl (Tamsulosin Hcl 0.4 Mg Capsule) 0.8 mg PO DAILY@2200 [facility] Last Admin: 10/15/20 20:28 Dose: 0.8 mg Documented by: Throat Lozenges (Benzocaine/Menthol 1 Lozenge) 1 lozenge MUCOUS MEM Q2H PRN PRN PRN Reason: SORE THROAT Last Admin: 10/05/20 21:45 Dose: 1 lozenge Documented by: STROKE Vital Signs/Narrative: Vital Signs Temp Pulse Resp BP Pulse Ox 10/16/20 07:04 91 91 10/16/20 06:04 97.9 F 80 18 103/66 96 Medical Necessity - Tobacco Use Smoking Status: Former smoker Tobacco Use: Non-smoker Assessment/Plan All Active Problems (Last Reviewed 07/25/20 @ 11:17 by Anai Capellan PA, PA) COVID-19 (Acute) Atrial fibrillation with RVR (Acute) Acute respiratory failure with hypoxia (Acute) H/O oral surgery (Resolved) History of left cataract surgery (Resolved) TIA (transient ischemic attack) (Acute 01/09/19) Left-sided weakness (Acute) Leg edema (Acute) Edema (Acute) 1. Acute hypoxic respiratory failure and COPD exacerbation secondary to COVID-19 pneumonia/history of PE -Remdesivir has been completed, as has Decadron -Appreciate pulmonology assistance -Continue with incentive spirometry -Has negative fluid balance of 7.4 L, will continue with very low dose of IV Lasix, his bicarb has risen to 33. Will continue with his dose of Lasix today however if it continues to rise we will have to give him a break -Leukocytosis is likely reactive temperature is normal -Continue with Eliquis 2. HTN/HLD/A. fib with RVR -Blood pressure stable -Continue with his blood pressure medications as well as his rate control medications -Continue with statin -Continue with Eliquis 3. BPH -Stable -Continue with Flomax and finasteride Disposition: LTAC DVT: Eliquis Inpatient E&M: [id number] Subs Hosp L2
--- NOTE | 2020-10-16 10:08 | PN_ITS ---
Patient Problems: Active and Suspected Problems (Last Reviewed 07/25/20 @ 11:17 by Anai Capellan PA, PA) COVID-19 (Acute) Atrial fibrillation with RVR (Acute) Acute respiratory failure with hypoxia (Acute) Subjective: Patient did okay overnight. Patient is still requiring significant FiO2 to maintain saturations. Patient is complaining about leak from the BiPAP keeping him up at night. Patient does not report any other changes in overall condition. - Physical Exam Vitals/I&O's: Vital Signs Temp Pulse Resp BP Pulse Ox 36.6 C 91 18 103/66 94 10/16/20 06:04 10/16/20 07:04 10/16/20 06:04 10/16/20 06:04 10/16/20 07:04 Oxygen Flow Rate (L/min) 55 Oxygen Delivery Method Airvo Weight: 104.009 kg Body Mass Index (BMI) 36.5 Finger Stick Blood Glucose 164 Intake and Output for Last 24 Hours 10/14/20 10/15/20 10/16/20 23:59 23:59 23:59 Intake Total 2560 / 2560 890 / 890 Output Total 1825 / 1825 1600 / 2125 725 / 725 Balance 735 / 735 -710 / -1235 -725 / -725 General: Alert, Oriented x3, Cooperative, - - Mild conversational dyspnea. Obese. HEENT: Atraumatic, PERRLA, EOMI, Normocephalic Oral: Moist Mucosa, No Gingival or Mucosal Lesions/ Ulcerations Neck: Supple, No JVD, No Nodes, Trachea Midline Lungs: No rhonchi, No wheeze, No rales, Diminished Cardiovascular: Normal S1, Normal S2, No murmurs, Irregular Rate, No rub noted, No Gallop Abdomen: Bowel Sounds Present, Soft, Non Tender, Non-Distended, Obese Extremities: No cyanosis, Edema - 1+ lower extremity Skin: - - No change compared to previous Musculoskeletal: No Tenderness to Palpation of Joints or Extremities Lymphatic: No Cervical, Supraclavicular, or Inguinal Adenopathy Neurological: Cranial nerves II-XII grossly intact, Neuro grossly intact, Motor Exam 5/5 strength throughout Psych/Mental Status: Alert and oriented to time, place, person, mood and affect Laboratory Results 10/16/20 06:10: Sodium 137, Potassium 3.9, Chloride 102, Carbon Dioxide 33.0 H, Anion Gap 2 L, BUN 47 H, Creatinine 0.93, Estim Creat Clear Calc 65.38, Est GFR (MDRD) Af Amer 101, Est GFR (MDRD) Non-Af 84, BUN/Creatinine Ratio 50.5 H, Glucose 86, Calcium 9.2 Current Medications Acetaminophen (Acetaminophen 325 Mg Tablet) 650 mg PO Q6H PRN PRN PRN Reason: Pain Score 1-10/Temp > 100.7 F Last Admin: 10/08/20 21:13 Dose: 650 mg Documented by: Al Hydroxide/Mg Hydroxide (Mag Hydrox/Al Hydrox/Simeth 30 Ml Udc) 30 ml PO Q6H PRN PRN PRN Reason: Gastric Burning Albuterol Sulfate (Albuterol Ih 8.5 Gm (Proair) Inhaler (200 Puffs)) 2 puff INHALATION Q4H [facility] Last Admin: 10/16/20 06:04 Dose: 2 puff Documented by: Apixaban (Apixaban 5 Mg Tablet) 5 mg PO BID [facility] Last Admin: 10/15/20 20:28 Dose: 5 mg Documented by: Atorvastatin Calcium (Atorvastatin Calcium 10 Mg Tablet) 10 mg PO QHS [facility] Last Admin: 10/15/20 20:29 Dose: 10 mg Documented by: Calamine/Phenol (Menthol/Lanolin/Calamine/Znox 113 Gm Tube) 1 applic TOPICAL BID [facility]; Protocol Last Admin: 10/15/20 20:28 Dose: 1 applicatio Documented by: Diltiazem HCl (Diltiazem Cd 240 Mg Capsule) 240 mg PO DAILY [facility] Last Admin: 10/15/20 08:14 Dose: 240 mg Documented by: Finasteride (Finasteride 5 Mg Tablet) 5 mg PO DAILY [facility] Last Admin: 10/15/20 08:13 Dose: 5 mg Documented by: Furosemide (Furosemide 20 Mg/2 Ml Vial) 20 mg IV DAILY [facility] Last Admin: 10/15/20 08:13 Dose: 20 mg Documented by: Lorazepam (Lorazepam 2 Mg/Ml Syringe) 0.5 mg IV Q4H PRN PRN PRN Reason: severe agitation w/BIPAP use Last Admin: 10/15/20 23:34 Dose: 0.5 mg Documented by: Metoprolol Tartrate (Metoprolol Tartrate 100 Mg Tablet) 100 mg PO BID [facility] Last Admin: 10/15/20 20:29 Dose: 100 mg Documented by: Miscellaneous Information (Inhaler, Assist Devices 1 Each Spacer) 1 each INHALATION PRN PRN PRN Reason: WITH ALBUTEROL INHALER Last Admin: 10/03/20 23:35 Dose: 1 each Documented by: Nitroglycerin (Nitroglycerin (Inpatient Use) 0.4 Mg Tab.Subl) 0.4 mg SUBLINGUAL Q5M PRN PRN Reason: CARDIAC/CHEST PAIN Ondansetron HCl (Ondansetron 4 Mg/2 Ml Vial) 4 mg IV Q8H PRN PRN PRN Reason: NAUSEA/VOMITING Polyethylene Glycol (Polyethylene Glycol 3350 17 Gm Packet) 17 gm PO DAILY [facility] Last Admin: 10/15/20 08:14 Dose: Not Given Documented by: Sodium Chloride (0.9% Saline Lock 10 Ml Syringe) 10 - 40 ml IV UD PRN PRN Reason: SALINE FLUSH Last Admin: 10/15/20 16:55 Dose: 10 ml Documented by: Tamsulosin HCl (Tamsulosin Hcl 0.4 Mg Capsule) 0.8 mg PO DAILY@2200 [facility] Last Admin: 10/15/20 20:28 Dose: 0.8 mg Documented by: Throat Lozenges (Benzocaine/Menthol 1 Lozenge) 1 lozenge MUCOUS MEM Q2H PRN PRN PRN Reason: SORE THROAT Last Admin: 10/05/20 21:45 Dose: 1 lozenge Documented by: Medical Necessity - Tobacco Use Smoking Status: Former smoker Tobacco Use: Non-smoker Assessment/Plan All Active Problems (Last Reviewed 07/25/20 @ 11:17 by Anai CHAMBERS, PA) COVID-19 (Acute) Atrial fibrillation with RVR (Acute) Acute respiratory failure with hypoxia (Acute) H/O oral surgery (Resolved) History of left cataract surgery (Resolved) TIA (transient ischemic attack) (Acute 01/09/19) Left-sided weakness (Acute) Leg edema (Acute) Edema (Acute) RECOMMENDATIONS: 1. Continue to wean FiO2 to maintain saturations at or above 90%. 2. Continue noninvasive positive pressure ventilatory support nightly, as tolerated by patient. 3. Completed Decadron. Monitor off steroids 4. Continue systemic anticoagulation with Eliquis. 5. Continue gentle diuresis as tolerated by hemodynamics and renal function. Order additional doses on daily basis as permitted by renal function 6. Consider LTAC evaluation IMPRESSIONS: 1. Acute hypoxic respiratory failure secondary to COVID-19 pneumonia/COPD exacerbation Stable at this time on heated high flow supplemental oxygen. The patient does have significant bilateral infiltrates on chest imaging. The patient has completed his treatment course of remdesivir and Decadron. The patient will also be continued on systemic anticoagulation with Eliquis along with IV diuretic therapy as tolerated by hemodynamics and renal function. Recheck electrolytes tomorrow as potassium may need to be repleted. Continue to wean FiO2 to maintain oxygen saturations at or above 90%. Patient understands that disposition will require tolerance of 6 L or less FiO2 to maintain saturations. 2. A. fib with RVR/cor pulmonale Continue baseline cardiac medications and diuretic therapy. Hemodynamics remain stable. This may lead to a protracted course given baseline RV dysf unction. Patient appears to be tolerating additional diuretic therapy thus far. Would consider an LTAC evaluation 3. BPH/hyperlipidemia/advanced age/obesity Complicates care, management, recovery and prognosis. Continue home medications as indicated. Inpatient E&M: [id number] Subs Hosp L2
[2020-10-16] MEDS: APIXABAN 5 MG TABLET PO ×2 (10:16→20:55)
[2020-10-16] MEDS: dilTIAZem CD 240 MG Capsule PO (10:16)
[2020-10-16] MEDS: Menthol/Lanolin/Calamine/Znox 113 GM Tube 1 APPLIC TOPICAL ×2 (10:16→20:54)
[2020-10-16] MEDS: Furosemide 20 MG/2 ML VIAL IV (10:17)
[2020-10-16] MEDS: Metoprolol Tartrate 100 MG Tablet PO ×2 (10:17→20:54)
[2020-10-16] MEDS: Finasteride 5 MG Tablet PO (10:18)
--- NOTE | 2020-10-16 13:44 | CASEMGMT ---
Addendum entered by Sandra Bass 10/16/20 16:42: Call received from Divine @ [facility]. Pt meets criteria and he will be placed on their waiting list. Addendum entered by Sandra Bass 10/16/20 14:32: Call placed to benjamin Marvin @ [facility] and referral made. She states they may have a bed available in the next couple of days. Referral packet faxed to [facility] at this time. She states if Airvo/O2 L > 40, they will review on an individual basis to determine if they are able to accept. Original Note: MARYCRUZ GRAHAM NOTE: Per Dr Williamson, LTAC referral to be made. Call placed to pt's room. No answer. Call placed to pt's cell phone and pt answered. LTAC discussed w/, Sarah, and questions answered. Call then placed back to pt and his questions were answered as well. Both pt/ are agreeable to LTAC. Patient made aware Tracey JOEL, will bring in a a list of local LTAC providers. This list includes quality and resource use data and is consistent with the patient?s preferred geographic region, medical needs, and insurance network. Pt was made aware that [facility] does not have any beds available, but that [facility] states they will have a bed available in the next couple of days. Pt/ prefer for pt to stay as local as possible and their preferred provider is [facility]. Pt/ deny having any further questions at this time. Jose LOVE RN, CM
[2020-10-16] MEDS: Furosemide 40 MG/4 ML Vial IV (17:25)
[2020-10-16] MEDS: 0.9% Saline Lock 10 ML Syringe IV (17:25)
[2020-10-16] MEDS: Tamsulosin HCl 0.4 MG Capsule 0.8 MG PO (20:54)
[2020-10-16] MEDS: Atorvastatin Calcium 10 MG Tablet PO (20:55)
[2020-10-17] VITALS (12 sets, daily range): BP systolic 99–114; BP diastolic 59–64; PULSE 79–110; RESP 12–20; TEMP 36.2–36.7; O2SAT 92–95
[2020-10-17 05:38] LABS: Absolute Lymphocyte Count 0.73 X10^3/uL (0.83-4.51); Absolute Neutrophil Count 16.4 X10^3/uL (2.0-7.7); Basophil# 0.08 X10^3/uL; Basophil% 0.4 % (0-1); Eosinophil# 0.14 X10^3/uL; Eosinophils% 0.7 % (0-5); Hematocrit 41.8 % (40-54); Hemoglobin 13.3 g/dL (13.0-16.5); Lymphocyte # 0.73 X10^3/ul (4.0); Lymphocyte % 3.7 % (19-41); Mean Corp Hgb Conc 31.8 g/dL (32-36); Mean Corpuscular Hgb 30.3 pg (27.0-32.0); Mean Corpuscular Volume 95.2 fL (80-94); Mean Platelet Vol. 10.3 fl (6.2-12.0); Monocyte# 1.69 X10^3/uL; Monocyte% 8.6 % (0-10); NRBC Flagged by Analyzer 0 % (0-5); Neutrophil # 16.38 X10^3/uL (2.7-7.7); Neutrophil % 83.5 % (47-70); POSITIVE DIFFERENTIAL YES; Platelet Count 312 K/mm3 (150-450); RBC Distribution Width SD 48.8 fl (35.1-43.9); Red Blood Count 4.39 M/mm3 (4.6-6.2); White Blood Count 19.6 K/mm3 (4.4-11.0)
[2020-10-17 05:39] LABS: Differential Indicated SCAN CRITERIA MET
[2020-10-17 06:05] LABS: Anion Gap 7 (5-15); BUN 43 mg/dL (7-18); BUN/Creat Ratio 46.5 RATIO (10-20); Calcium,Total 9.1 mg/dL (8.5-10.1); Chloride 101 mmol/L (98-107); Creatinine, Serum 0.92 mg/dL (0.70-1.30); EST Glomerular Filtration Rate 84 mL/min (>60); Est Glom Filt Rate - Afr Amer 102 mL/min (>60); Estimated Creatinine Clearance 66.09 ml/min; Glucose 109 mg/dL (74-106); Potassium 3.7 mmol/L (3.5-5.1); Sodium Level 140 mmol/L (136-145)
[2020-10-17 06:20] LABS: Differential Comment SCANNED
--- NOTE | 2020-10-17 07:28 | PCM.PN.HOSP ---
Patient Problems: Active and Suspected Problems (Last Reviewed 07/25/20 @ 11:17 by Anai Capellan PA, PA) COVID-19 (Acute) Atrial fibrillation with RVR (Acute) Acute respiratory failure with hypoxia (Acute) Subjective: Maintaining his sats on [place], no issues overnight. Doing well Vitals/I&O's: Vital Signs Temp Pulse Resp BP Pulse Ox 97.8 F 83 17 102/63 95 10/17/20 04:00 10/17/20 05:35 10/17/20 04:00 10/17/20 04:00 10/17/20 05:35 Oxygen Flow Rate (L/min) 55 Oxygen Delivery Method Airvo Weight: 229 lb 4.8 oz Body Mass Index (BMI) 36.5 Finger Stick Blood Glucose 164 Intake and Output for Last 24 Hours 10/15/20 10/16/20 10/17/20 23:59 23:59 23:59 Intake Total 890 / 890 240 / 240 Output Total 1600 / 2125 1275 / 1275 200 / 200 Balance -710 / -1235 -1035 / -1035 -200 / -200 General: Alert, Oriented x3, Cooperative, No apparent distress HEENT: Atraumatic, PERRLA, EOMI, Normocephalic Oral: Moist Mucosa Neck: Supple, No JVD Lungs: Normal air movement, No rhonchi, No wheeze, No rales, Diminished Cardiovascular: Regular rate, Regular Rhythm, Normal S1, Normal S2, Murmur - Chronic ZHEN Abdomen: Soft, Non Tender, Non-Distended, No Hepato-splenomegaly Extremities: No edema, Capillary Refill Less than 3 Seconds Skin: No rashes, No breakdown Neurological: Neuro grossly intact, Sensory exam intact to light touch and pain Psych/Mental Status: Normal Affect, Appropriate Laboratory Results 10/17/20 05:20: WBC 19.6 H, RBC 4.39 L, Hgb 13.3, Hct 41.8, MCV 95.2 H, MCH 30.3, MCHC 31.8 L, RDW Std Deviation 48.8 H, RDW Coeff of Zackary 14.0, Plt Count 312, MPV 10.3, Immature Gran % (Auto) 3.100 H, Neut % (Auto) 83.5 H, Lymph % (Auto) 3.7 L, [place] % (Auto) 8.6, Eos % (Auto) 0.7, Baso % (Auto) 0.4, Absolute Neuts (auto) 16.4 H, Absolute Lymphs (auto) 0.73 L, Nucleated RBC % 0, Differential Comment SCANNED, Diff Path Review May foll 10/17/20 05:20: Sodium 140, Potassium 3.7, Chloride 101, Carbon Dioxide 32.0, Anion Gap 7, BUN 43 H, Creatinine 0.92, Estim Creat Clear Calc 66.09, Est GFR (MDRD) Af Amer 102, Est GFR (MDRD) Non-Af 84, BUN/Creatinine Ratio 46.5 H, Glucose 109 H, Calcium 9.1 Current Medications Acetaminophen (Acetaminophen 325 Mg Tablet) 650 mg PO Q6H PRN PRN PRN Reason: Pain Score 1-10/Temp > 100.7 F Last Admin: 10/08/20 21:13 Dose: 650 mg Documented by: Al Hydroxide/Mg Hydroxide (Mag Hydrox/Al Hydrox/Simeth 30 Ml Udc) 30 ml PO Q6H PRN PRN PRN Reason: Gastric Burning Albuterol Sulfate (Albuterol Ih 8.5 Gm (Proair) Inhaler (200 Puffs)) 2 puff INHALATION Q4H [facility] Last Admin: 10/17/20 05:51 Dose: 2 puff Documented by: Apixaban (Apixaban 5 Mg Tablet) 5 mg PO BID [facility] Last Admin: 10/16/20 20:55 Dose: 5 mg Documented by: Atorvastatin Calcium (Atorvastatin Calcium 10 Mg Tablet) 10 mg PO QHS [facility] Last Admin: 10/16/20 20:55 Dose: 10 mg Documented by: Calamine/Phenol (Menthol/Lanolin/Calamine/Znox 113 Gm Tube) 1 applic TOPICAL BID [facility]; Protocol Last Admin: 10/16/20 20:54 Dose: 1 applicatio Documented by: Diltiazem HCl (Diltiazem Cd 240 Mg Capsule) 240 mg PO DAILY [facility] Last Admin: 10/16/20 10:16 Dose: 240 mg Documented by: Finasteride (Finasteride 5 Mg Tablet) 5 mg PO DAILY [facility] Last Admin: 10/16/20 10:18 Dose: 5 mg Documented by: Furosemide (Furosemide 20 Mg/2 Ml Vial) 20 mg IV DAILY [facility] Last Admin: 10/16/20 10:17 Dose: 20 mg Documented by: Lorazepam (Lorazepam 2 Mg/Ml Syringe) 0.5 mg IV Q4H PRN PRN PRN Reason: severe agitation w/BIPAP use Last Admin: 10/15/20 23:34 Dose: 0.5 mg Documented by: Metoprolol Tartrate (Metoprolol Tartrate 100 Mg Tablet) 100 mg PO BID [facility] Last Admin: 10/16/20 20:54 Dose: 100 mg Documented by: Miscellaneous Information (Inhaler, Assist Devices 1 Each Spacer) 1 each INHALATION PRN PRN PRN Reason: WITH ALBUTEROL INHALER Last Admin: 10/03/20 23:35 Dose: 1 each Documented by: Nitroglycerin (Nitroglycerin (Inpatient Use) 0.4 Mg Tab.Subl) 0.4 mg SUBLINGUAL Q5M PRN PRN Reason: CARDIAC/CHEST PAIN Ondansetron HCl (Ondansetron 4 Mg/2 Ml Vial) 4 mg IV Q8H PRN PRN PRN Reason: NAUSEA/VOMITING Polyethylene Glycol (Polyethylene Glycol 3350 17 Gm Packet) 17 gm PO DAILY [facility] Last Admin: 10/16/20 10:24 Dose: Not Given Documented by: Sodium Chloride (0.9% Saline Lock 10 Ml Syringe) 10 - 40 ml IV UD PRN PRN Reason: SALINE FLUSH Last Admin: 10/16/20 17:25 Dose: 10 ml Documented by: Tamsulosin HCl (Tamsulosin Hcl 0.4 Mg Capsule) 0.8 mg PO DAILY@2200 [facility] Last Admin: 10/16/20 20:54 Dose: 0.8 mg Documented by: Throat Lozenges (Benzocaine/Menthol 1 Lozenge) 1 lozenge MUCOUS MEM Q2H PRN PRN PRN Reason: SORE THROAT Last Admin: 10/05/20 21:45 Dose: 1 lozenge Documented by: STROKE Vital Signs/Narrative: Vital Signs Temp Pulse Resp BP Pulse Ox 10/17/20 05:35 83 95 10/17/20 04:00 97.8 F 84 17 102/63 95 Medical Necessity - Tobacco Use Smoking Status: Former smoker Tobacco Use: Non-smoker Assessment/Plan All Active Problems (Last Reviewed 07/25/20 @ 11:17 by Anai Capellan PA, PA) COVID-19 (Acute) Atrial fibrillation with RVR (Acute) Acute respiratory failure with hypoxia (Acute) H/O oral surgery (Resolved) History of left cataract surgery (Resolved) TIA (transient ischemic attack) (Acute 01/09/19) Left-sided weakness (Acute) Leg edema (Acute) Edema (Acute) 1. Acute hypoxic respiratory failure and COPD exacerbation secondary to COVID-19 pneumonia/history of PE -Remdesivir has been completed, as has Decadron -Appreciate pulmonology assistance -Continue with incentive spirometry -Has negative fluid balance of almost 8 L, will continue with very low dose of IV Lasix. -Leukocytosis is likely reactive temperature is normal -Continue with Eliquis 2. HTN/HLD/A. fib with RVR -Blood pressure stable -Continue with his blood pressure medications as well as his rate control medications -Continue with statin -Continue with Eliquis 3. BPH -Stable -Continue with Flomax and finasteride Disposition: LTAC DVT: Eliquis Inpatient E&M: 02418 Subs Hosp L2
[2020-10-17] MEDS: 0.9% Saline Lock 10 ML Syringe IV (08:41)
[2020-10-17] MEDS: Furosemide 20 MG/2 ML VIAL IV (08:41)
[2020-10-17] MEDS: Metoprolol Tartrate 100 MG Tablet PO ×2 (08:42→20:03)
[2020-10-17] MEDS: APIXABAN 5 MG TABLET PO ×2 (08:42→20:03)
[2020-10-17] MEDS: dilTIAZem CD 240 MG Capsule PO (08:42)
[2020-10-17] MEDS: Polyethylene Glycol 3350 17 GM PACKET PO (08:43)
[2020-10-17] MEDS: Menthol/Lanolin/Calamine/Znox 113 GM Tube 1 APPLIC TOPICAL ×2 (08:43→20:02)
[2020-10-17] MEDS: Finasteride 5 MG Tablet PO (08:46)
[2020-10-17 12:14] LABS: Pathologist Review Reviewed
--- NOTE | 2020-10-17 13:06 | PCM.PN.PUL ---
Patient Problems: Active and Suspected Problems (Last Reviewed 07/25/20 @ 11:17 by Anai Capellan PA, PA) COVID-19 (Acute) Atrial fibrillation with RVR (Acute) Acute respiratory failure with hypoxia (Acute) Subjective: Patient did well overnight. Patient continues to report little to no symptoms at rest, but some shortness of breath with exertion. Patient states he has no subjective change compared to yesterday. - Physical Exam Vitals/I&O's: Vital Signs Temp Pulse Resp BP Pulse Ox 36.7 C 110 H 20 H 106/59 L 93 10/17/20 08:53 10/17/20 08:55 10/17/20 08:55 10/17/20 08:53 10/17/20 08:55 Oxygen Flow Rate (L/min) 55 Oxygen Delivery Method Airvo Weight: 104.009 kg Body Mass Index (BMI) 36.5 Finger Stick Blood Glucose 164 Intake and Output for Last 24 Hours 10/15/20 10/16/20 10/17/20 23:59 23:59 23:59 Intake Total 890 / 890 240 / 240 Output Total 1600 / 2125 1275 / 1275 200 / 200 Balance -710 / -1235 -1035 / -1035 -200 / -200 General: Alert, Oriented x3, Cooperative, No apparent distress, - - Obese. Mild conversational dyspnea HEENT: Atraumatic, PERRLA, EOMI, Normocephalic, - - Slight scleral injection Oral: Moist Mucosa, No Gingival or Mucosal Lesions/ Ulcerations Neck: Supple, No JVD, No Nodes, Trachea Midline Lungs: No rhonchi, No wheeze, No rales, Diminished Cardiovascular: Normal S1, Normal S2, No murmurs, Irregular Rate, No rub noted, No Gallop Abdomen: Bowel Sounds Present, Soft, Non Tender, Non-Distended Extremities: No clubbing, No cyanosis, Edema - Trace Skin: - - No change compared to previous Musculoskeletal: No Tenderness to Palpation of Joints or Extremities Lymphatic: No Cervical, Supraclavicular, or Inguinal Adenopathy Neurological: Cranial nerves II-XII grossly intact, Neuro grossly intact, Motor Exam 5/5 strength throughout Psych/Mental Status: Alert and oriented to time, place, person, mood and affect Laboratory Results 10/17/20 05:20: WBC 19.6 H, RBC 4.39 L, Hgb 13.3, Hct 41.8, MCV 95.2 H, MCH 30.3, MCHC 31.8 L, RDW Std Deviation 48.8 H, RDW Coeff of Zackary 14.0, Plt Count 312, MPV 10.3, Immature Gran % (Auto) 3.100 H, Neut % (Auto) 83.5 H, Lymph % (Auto) 3.7 L, [place] % (Auto) 8.6, Eos % (Auto) 0.7, Baso % (Auto) 0.4, Absolute Neuts (auto) 16.4 H, Absolute Lymphs (auto) 0.73 L, Nucleated RBC % 0, Differential Comment SCANNED, Diff Path Review Reviewed 10/17/20 05:20: Sodium 140, Potassium 3.7, Chloride 101, Carbon Dioxide 32.0, Anion Gap 7, BUN 43 H, Creatinine 0.92, Estim Creat Clear Calc 66.09, Est GFR (MDRD) Af Amer 102, Est GFR (MDRD) Non-Af 84, BUN/Creatinine Ratio 46.5 H, Glucose 109 H, Calcium 9.1 Current Medications Acetaminophen (Acetaminophen 325 Mg Tablet) 650 mg PO Q6H PRN PRN PRN Reason: Pain Score 1-10/Temp > 100.7 F Last Admin: 10/08/20 21:13 Dose: 650 mg Documented by: Al Hydroxide/Mg Hydroxide (Mag Hydrox/Al Hydrox/Simeth 30 Ml Udc) 30 ml PO Q6H PRN PRN PRN Reason: Gastric Burning Albuterol Sulfate (Albuterol Ih 8.5 Gm (Proair) Inhaler (200 Puffs)) 2 puff INHALATION Q4H [facility] Last Admin: 10/17/20 08:52 Dose: 2 puff Documented by: Apixaban (Apixaban 5 Mg Tablet) 5 mg PO BID [facility] Last Admin: 10/17/20 08:42 Dose: 5 mg Documented by: Atorvastatin Calcium (Atorvastatin Calcium 10 Mg Tablet) 10 mg PO QHS [facility] Last Admin: 10/16/20 20:55 Dose: 10 mg Documented by: Calamine/Phenol (Menthol/Lanolin/Calamine/Znox 113 Gm Tube) 1 applic TOPICAL BID [facility]; Protocol Last Admin: 10/17/20 08:43 Dose: 1 applicatio Documented by: Diltiazem HCl (Diltiazem Cd 240 Mg Capsule) 240 mg PO DAILY [facility] Last Admin: 10/17/20 08:42 Dose: 240 mg Documented by: Finasteride (Finasteride 5 Mg Tablet) 5 mg PO DAILY [facility] Last Admin: 10/17/20 08:46 Dose: 5 mg Documented by: Furosemide (Furosemide 20 Mg/2 Ml Vial) 20 mg IV DAILY [facility] Last Admin: 10/17/20 08:41 Dose: 20 mg Documented by: Furosemide (Furosemide 40 Mg/4 Ml Vial) 40 mg IV X1 ONE Stop: 10/17/20 18:01 Lorazepam (Lorazepam 2 Mg/Ml Syringe) 0.5 mg IV Q4H PRN PRN PRN Reason: severe agitation w/BIPAP use Last Admin: 10/15/20 23:34 Dose: 0.5 mg Documented by: Metoprolol Tartrate (Metoprolol Tartrate 100 Mg Tablet) 100 mg PO BID [facility] Last Admin: 10/17/20 08:42 Dose: 100 mg Documented by: Miscellaneous Information (Inhaler, Assist Devices 1 Each Spacer) 1 each INHALATION PRN PRN PRN Reason: WITH ALBUTEROL INHALER Last Admin: 10/03/20 23:35 Dose: 1 each Documented by: Nitroglycerin (Nitroglycerin (Inpatient Use) 0.4 Mg Tab.Subl) 0.4 mg SUBLINGUAL Q5M PRN PRN Reason: CARDIAC/CHEST PAIN Ondansetron HCl (Ondansetron 4 Mg/2 Ml Vial) 4 mg IV Q8H PRN PRN PRN Reason: NAUSEA/VOMITING Polyethylene Glycol (Polyethylene Glycol 3350 17 Gm Packet) 17 gm PO DAILY [facility] Last Admin: 10/17/20 08:43 Dose: 17 gm Documented by: Sodium Chloride (0.9% Saline Lock 10 Ml Syringe) 10 - 40 ml IV UD PRN PRN Reason: SALINE FLUSH Last Admin: 10/17/20 08:41 Dose: 10 ml Documented by: Tamsulosin HCl (Tamsulosin Hcl 0.4 Mg Capsule) 0.8 mg PO DAILY@2200 [facility] Last Admin: 10/16/20 20:54 Dose: 0.8 mg Documented by: Throat Lozenges (Benzocaine/Menthol 1 Lozenge) 1 lozenge MUCOUS MEM Q2H PRN PRN PRN Reason: SORE THROAT Last Admin: 10/05/20 21:45 Dose: 1 lozenge Documented by: Medical Necessity - Tobacco Use Smoking Status: Former smoker Tobacco Use: Non-smoker Assessment/Plan All Active Problems (Last Reviewed 07/25/20 @ 11:17 by Anai Capellan PA, PA) COVID-19 (Acute) Atrial fibrillation with RVR (Acute) Acute respiratory failure with hypoxia (Acute) H/O oral surgery (Resolved) History of left cataract surgery (Resolved) TIA (transient ischemic attack) (Acute 01/09/19) Left-sided weakness (Acute) Leg edema (Acute) Edema (Acute) RECOMMENDATIONS: 1. Continue to wean FiO2 to maintain saturations at or above 90%. 2. Continue noninvasive positive pressure ventilatory support nightly, as tolerated by patient. 3. Completed Decadron. Monitor off steroids 4. Continue systemic anticoagulation with Eliquis. 5. Continue gentle diuresis as tolerated by hemodynamics and renal function. Order additional doses on daily basis as permitted by renal function 6. Consider LTAC evaluation IMPRESSIONS: 1. Acute hypoxic respiratory failure secondary to COVID-19 pneumonia/COPD exacerbation Stable at this time on heated high flow supplemental oxygen. The patient did have significant bilateral infiltrates on chest imaging. The patient has completed his treatment course of remdesivir and Decadron. Monitoring off of steroids at this time. No significant change in oxygenation after cessation of steroids. The patient will also be continued on systemic anticoagulation with Eliquis along with IV diuretic therapy as tolerated by hemodynamics and renal function. Recheck electrolytes tomorrow as potassium may need to be repleted. Continue to wean FiO2 to maintain oxygen saturations at or above 90%. Patient understands that disposition will require tolerance of 6 L or less FiO2 to maintain saturations. 2. A. fib with RVR/cor pulmonale Continue baseline cardiac medications and diuretic therapy. Hemodynamics remain stable. This may lead to a protracted course given baseline RV dysfunction. Patient appears to be tolerating additional diuretic therapy thus far. Would consider an LTAC evaluation 3. BPH/hyperlipidemia/advanced age/obesity Complicates care, management, recovery and prognosis. Continue home medications as indicated. Inpatient E&M: 73134 Subs Hosp L2
--- NOTE | 2020-10-17 15:56 | CASEMGMT ---
MARYCRUZ GRAHAM NOTE: Per Dr Beach during rounds this AM pt is medically ready for discharge to LTAC. Call placed to [facility]. She states she is anticipating that a bed will be available in the next 1-[address] Beach has been made aware. Call placed to pt at this time and he was made aware of above. He states he will update his and thanked MARYCRUZ GRAHAM for the update. Updated clinicals faxed to [facility] at this time, including O2 requirements over the past 24 hrs, as requested by [facility] @ [facility]. Jose LOVE RN, CM
[2020-10-17] MEDS: Furosemide 40 MG/4 ML Vial IV (17:50)
[2020-10-17] MEDS: Tamsulosin HCl 0.4 MG Capsule 0.8 MG PO (20:03)
[2020-10-17] MEDS: Atorvastatin Calcium 10 MG Tablet PO (20:04)
[2020-10-18] VITALS (11 sets, daily range): BP systolic 105–138; BP diastolic 66–73; PULSE 82–101; RESP 12–24; TEMP 36.4–36.7; O2SAT 92–98
[2020-10-18] MEDS: LORazepam 2 MG/ML Syringe 0.5 MG IV ×2 (01:04→20:11)
[2020-10-18 08:24] LABS: Anion Gap 4 (5-15); BUN 34 mg/dL (7-18); BUN/Creat Ratio 37.8 RATIO (10-20); Chloride 102 mmol/L (98-107); EST Glomerular Filtration Rate 87 mL/min (>60); Est Glom Filt Rate - Afr Amer 106 mL/min (>60); Estimated Creatinine Clearance 67.56 ml/min; Glucose 105 mg/dL (74-106); Potassium 3.6 mmol/L (3.5-5.1); Sodium Level 141 mmol/L (136-145)
--- NOTE | 2020-10-18 08:36 | PN_ITS ---
Patient Problems: Active and Suspected Problems (Last Reviewed 07/25/20 @ 11:17 by Anai Capellan PA, PA) COVID-19 (Acute) Atrial fibrillation with RVR (Acute) Acute respiratory failure with hypoxia (Acute) Subjective: Patient did okay overnight. Patient continues to report he feels subjectively unchanged compared to previous. Patient did tolerate BiPAP overnight with sleep, but is back on AirVo. Patient believes his exercise tolerance is improving. - Physical Exam Vitals/I&O's: Vital Signs Temp Pulse Resp BP Pulse Ox 36.6 C 89 19 H 105/66 92 10/18/20 02:10 10/18/20 07:15 10/18/20 07:15 10/18/20 02:10 10/18/20 07:15 Oxygen Flow Rate (L/min) 55 Oxygen Delivery Method Bi-pap Weight: 104.009 kg Body Mass Index (BMI) 36.5 Finger Stick Blood Glucose 164 Intake and Output for Last 24 Hours 10/16/20 10/17/20 10/18/20 23:59 23:59 23:59 Intake Total 240 / 240 1100 / 1100 240 / 240 Output Total 1275 / 1275 1900 / 1900 400 / 400 Balance -1035 / -1035 -800 / -800 -160 / -160 General: Alert, Oriented x3, Cooperative, No apparent distress, - - Obese. Speaking in full sentences. HEENT: Atraumatic, PERRLA, EOMI, Normocephalic, - - Scleral injection without icterus Oral: Moist Mucosa, No Gingival or Mucosal Lesions/ Ulcerations, - - Poor dentition Neck: Supple, No JVD, No Nodes, Trachea Midline Lungs: No rhonchi, No wheeze, No rales, Diminished Cardiovascular: Normal S1, Normal S2, No murmurs, Irregular Rate, No rub noted, No Gallop Abdomen: Bowel Sounds Present, Soft, Non Tender, Non-Distended, Obese Extremities: No clubbing, No cyanosis, Edema - Trace to 1+ lower extremity Skin: - - No change compared to previous Musculoskeletal: No Tenderness to Palpation of Joints or Extremities Lymphatic: No Cervical, Supraclavicular, or Inguinal Adenopathy Neurological: Cranial nerves II-XII grossly intact, Neuro grossly intact, Motor Exam 5/5 strength throughout Psych/Mental Status: Alert and oriented to time, place, person, mood and affect Laboratory Results 10/17/20 05:20: Diff Path Review Reviewed 10/18/20 07:46: Sodium 141, Potassium 3.6, Chloride 102, Carbon Dioxide 35.0 H, Anion Gap 4 L, BUN 34 H, Creatinine 0.90, Estim Creat Clear Calc 67.56, Est GFR (MDRD) Af Amer 106, Est GFR (MDRD) Non-Af 87, BUN/Creatinine Ratio 37.8 H, Glucose 105, Calcium 9.0 Current Medications Acetaminophen (Acetaminophen 325 Mg Tablet) 650 mg PO Q6H PRN PRN PRN Reason: Pain Score 1-10/Temp > 100.7 F Last Admin: 10/08/20 21:13 Dose: 650 mg Documented by: Al Hydroxide/Mg Hydroxide (Mag Hydrox/Al Hydrox/Simeth 30 Ml Udc) 30 ml PO Q6H PRN PRN PRN Reason: Gastric Burning Albuterol Sulfate (Albuterol Ih 8.5 Gm (Proair) Inhaler (200 Puffs)) 2 puff INHALATION Q4H [facility] Last Admin: 10/18/20 06:45 Dose: 2 puff Documented by: Apixaban (Apixaban 5 Mg Tablet) 5 mg PO BID [facility] Last Admin: 10/17/20 20:03 Dose: 5 mg Documented by: Atorvastatin Calcium (Atorvastatin Calcium 10 Mg Tablet) 10 mg PO QHS [facility] Last Admin: 10/17/20 20:04 Dose: 10 mg Documented by: Calamine/Phenol (Menthol/Lanolin/Calamine/Znox 113 Gm Tube) 1 applic TOPICAL BID [facility]; Protocol Last Admin: 10/17/20 20:02 Dose: 1 applicatio Documented by: Diltiazem HCl (Diltiazem Cd 240 Mg Capsule) 240 mg PO DAILY [facility] Last Admin: 10/17/20 08:42 Dose: 240 mg Documented by: Finasteride (Finasteride 5 Mg Tablet) 5 mg PO DAILY [facility] Last Admin: 10/17/20 08:46 Dose: 5 mg Documented by: Furosemide (Furosemide 20 Mg/2 Ml Vial) 40 mg IV BID@1000,1800 [facility] Lorazepam (Lorazepam 2 Mg/Ml Syringe) 0.5 mg IV Q4H PRN PRN PRN Reason: severe agitation w/BIPAP use Last Admin: 10/18/20 01:04 Dose: 0.5 mg Documented by: Metoprolol Tartrate (Metoprolol Tartrate 100 Mg Tablet) 100 mg PO BID [facility] Last Admin: 10/17/20 20:03 Dose: 100 mg Documented by: Miscellaneous Information (Inhaler, Assist Devices 1 Each Spacer) 1 each INHALATION PRN PRN PRN Reason: WITH ALBUTEROL INHALER Last Admin: 10/03/20 23:35 Dose: 1 each Documented by: Nitroglycerin (Nitroglycerin (Inpatient Use) 0.4 Mg Tab.Subl) 0.4 mg SUBLINGUAL Q5M PRN PRN Reason: CARDIAC/CHEST PAIN Ondansetron HCl (Ondansetron 4 Mg/2 Ml Vial) 4 mg IV Q8H PRN PRN PRN Reason: NAUSEA/VOMITING Polyethylene Glycol (Polyethylene Glycol 3350 17 Gm Packet) 17 gm PO DAILY [facility] Last Admin: 10/17/20 08:43 Dose: 17 gm Documented by: Sodium Chloride (0.9% Saline Lock 10 Ml Syringe) 10 - 40 ml IV UD PRN PRN Reason: SALINE FLUSH Last Admin: 10/17/20 08:41 Dose: 10 ml Documented by: Tamsulosin HCl (Tamsulosin Hcl 0.4 Mg Capsule) 0.8 mg PO DAILY@2200 [facility] Last Admin: 10/17/20 20:03 Dose: 0.8 mg Documented by: Throat Lozenges (Benzocaine/Menthol 1 Lozenge) 1 lozenge MUCOUS MEM Q2H PRN PRN PRN Reason: SORE THROAT Last Admin: 10/05/20 21:45 Dose: 1 lozenge Documented by: Medical Necessity - Tobacco Use Smoking Status: Former smoker Tobacco Use: Non-smoker Assessment/Plan All Active Problems (Last Reviewed 07/25/20 @ 11:17 by Anai CHAMBERS, PA) COVID-19 (Acute) Atrial fibrillation with RVR (Acute) Acute respiratory failure with hypoxia (Acute) H/O oral surgery (Resolved) History of left cataract surgery (Resolved) TIA (transient ischemic attack) (Acute 01/09/19) Left-sided weakness (Acute) Leg edema (Acute) Edema (Acute) RECOMMENDATIONS: 1. Continue to wean FiO2 to maintain saturations at or above 90%. 2. Continue noninvasive positive pressure ventilatory support nightly, as tolerated by patient. 3. Completed Decadron. Monitor off steroids 4. Continue systemic anticoagulation with Eliquis. 5. Increase diuresis as tolerated by hemodynamics and renal function. 6. Consider LTAC evaluation. Likely okay to discontinue Covid precautions given duration since last positive test IMPRESSIONS: 1. Acute hypoxic respiratory failure secondary to COVID-19 pneumonia/COPD exacerbation Stable at this time on heated high flow supplemental oxygen. The patient did have significant bilateral infiltrates on chest imaging. The patient has completed his treatment course of remdesivir and Decadron. Monitoring off of steroids at this time. No significant change in oxygenation after cessation of steroids. The patient will also be continued on systemic anticoagulation with Eliquis along with IV diuretic therapy as tolerated by hemodynamics and renal function. We will check chemistries daily and replete potassium as tolerated. Patient has tolerated multiple additional doses of Lasix, so we will increase to twice daily. Continue to wean FiO2 to maintain oxygen saturations at or above 90%. Patient understands that disposition will require tolerance of 6 L or less FiO2 to maintain saturations. 2. A. fib with RVR/cor pulmonale Continue baseline cardiac medications and diuretic therapy. Hemodynamics remain stable. This may lead to a protracted course given baseline RV dysfunction. Patient appears to be tolerating additional diuretic therapy thus far. Would consider an LTAC evaluation 3. BPH/hyperlipidemia/advanced age/obesity Complicates care, management, recovery and prognosis. Continue home medications as indicated. Inpatient E&M: [id number] [facility] Hosp L2
--- NOTE | 2020-10-18 09:27 | PCM.PN.HOSP ---
Patient Problems: Active and Suspected Problems (Last Reviewed 07/25/20 @ 11:17 by Anai Capellan PA, PA) COVID-19 (Acute) Atrial fibrillation with RVR (Acute) Acute respiratory failure with hypoxia (Acute) Subjective: Doing well, no issues overnight Vitals/I&O's: Vital Signs Temp Pulse Resp BP Pulse Ox 97.6 F L 85 18 138/69 H 93 10/18/20 08:10 10/18/20 08:10 10/18/20 08:10 10/18/20 08:10 10/18/20 08:10 Oxygen Flow Rate (L/min) 55 Oxygen Delivery Method Airvo Weight: 229 lb 4.8 oz Body Mass Index (BMI) 36.5 Finger Stick Blood Glucose 164 Intake and Output for Last 24 Hours 10/16/20 10/17/20 10/18/20 23:59 23:59 23:59 Intake Total 240 / 240 1100 / 1100 240 / 240 Output Total 1275 / 1275 1900 / 1900 400 / 400 Balance -1035 / -1035 -800 / -800 -160 / -160 General: Alert, Oriented x3, Cooperative, No apparent distress HEENT: Atraumatic, PERRLA, EOMI, Normocephalic Oral: Moist Mucosa Neck: Supple, No JVD Lungs: Normal air movement, No rhonchi, No wheeze, No rales, Diminished Cardiovascular: Regular rate, Regular Rhythm, Normal S1, Normal S2, Murmur - Chronic ZHEN Abdomen: Soft, Non Tender, Non-Distended, No Hepato-splenomegaly Extremities: No edema, Capillary Refill Less than 3 Seconds Skin: No rashes, No breakdown Neurological: Neuro grossly intact, Sensory exam intact to light touch and pain Psych/Mental Status: Normal Affect, Appropriate Laboratory Results 10/17/20 05:20: Diff Path Review Reviewed 10/18/20 07:46: Sodium 141, Potassium 3.6, Chloride 102, Carbon Dioxide 35.0 H, Anion Gap 4 L, BUN 34 H, Creatinine 0.90, Estim Creat Clear Calc 67.56, Est GFR (MDRD) Af Amer 106, Est GFR (MDRD) Non-Af 87, BUN/Creatinine Ratio 37.8 H, Glucose 105, Calcium 9.0 Current Medications Acetaminophen (Acetaminophen 325 Mg Tablet) 650 mg PO Q6H PRN PRN PRN Reason: Pain Score 1-10/Temp > 100.7 F Last Admin: 10/08/20 21:13 Dose: 650 mg Documented by: Al Hydroxide/Mg Hydroxide (Mag Hydrox/Al Hydrox/Simeth 30 Ml Udc) 30 ml PO Q6H PRN PRN PRN Reason: Gastric Burning Albuterol Sulfate (Albuterol Ih 8.5 Gm (Proair) Inhaler (200 Puffs)) 2 puff INHALATION Q4H [facility] Last Admin: 10/18/20 06:45 Dose: 2 puff Documented by: Apixaban (Apixaban 5 Mg Tablet) 5 mg PO BID [facility] Last Admin: 10/17/20 20:03 Dose: 5 mg Documented by: Atorvastatin Calcium (Atorvastatin Calcium 10 Mg Tablet) 10 mg PO QHS [facility] Last Admin: 10/17/20 20:04 Dose: 10 mg Documented by: Calamine/Phenol (Menthol/Lanolin/Calamine/Znox 113 Gm Tube) 1 applic TOPICAL BID [facility]; Protocol Last Admin: 10/17/20 20:02 Dose: 1 applicatio Documented by: Diltiazem HCl (Diltiazem Cd 240 Mg Capsule) 240 mg PO DAILY [facility] Last Admin: 10/17/20 08:42 Dose: 240 mg Documented by: Finasteride (Finasteride 5 Mg Tablet) 5 mg PO DAILY [facility] Last Admin: 10/17/20 08:46 Dose: 5 mg Documented by: Furosemide (Furosemide 40 Mg/4 Ml Vial) 40 mg IV BID@1000,1800 [facility] Lorazepam (Lorazepam 2 Mg/Ml Syringe) 0.5 mg IV Q4H PRN PRN PRN Reason: severe agitation w/BIPAP use Last Admin: 10/18/20 01:04 Dose: 0.5 mg Documented by: Metoprolol Tartrate (Metoprolol Tartrate 100 Mg Tablet) 100 mg PO BID [facility] Last Admin: 10/17/20 20:03 Dose: 100 mg Documented by: Miscellaneous Information (Inhaler, Assist Devices 1 Each Spacer) 1 each INHALATION PRN PRN PRN Reason: WITH ALBUTEROL INHALER Last Admin: 10/03/20 23:35 Dose: 1 each Documented by: Nitroglycerin (Nitroglycerin (Inpatient Use) 0.4 Mg Tab.Subl) 0.4 mg SUBLINGUAL Q5M PRN PRN Reason: CARDIAC/CHEST PAIN Ondansetron HCl (Ondansetron 4 Mg/2 Ml Vial) 4 mg IV Q8H PRN PRN PRN Reason: NAUSEA/VOMITING Polyethylene Glycol (Polyethylene Glycol 3350 17 Gm Packet) 17 gm PO DAILY [facility] Last Admin: 10/17/20 08:43 Dose: 17 gm Documented by: Sodium Chloride (0.9% Saline Lock 10 Ml Syringe) 10 - 40 ml IV UD PRN PRN Reason: SALINE FLUSH Last Admin: 10/17/20 08:41 Dose: 10 ml Documented by: Tamsulosin HCl (Tamsulosin Hcl 0.4 Mg Capsule) 0.8 mg PO DAILY@2200 [facility] Last Admin: 10/17/20 20:03 Dose: 0.8 mg Documented by: Throat Lozenges (Benzocaine/Menthol 1 Lozenge) 1 lozenge MUCOUS MEM Q2H PRN PRN PRN Reason: SORE THROAT Last Admin: 10/05/20 21:45 Dose: 1 lozenge Documented by: STROKE Vital Signs/Narrative: Vital Signs Temp Pulse Resp BP Pulse Ox 10/18/20 08:10 97.6 F L 85 18 138/69 H 93 10/18/20 07:15 89 19 H 92 10/18/20 05:44 96 22 H 98 Medical Necessity - Tobacco Use Smoking Status: Former smoker Tobacco Use: Non-smoker Assessment/Plan All Active Problems (Last Reviewed 07/25/20 @ 11:17 by Anai Capellan PA, PA) COVID-19 (Acute) Atrial fibrillation with RVR (Acute) Acute respiratory failure with hypoxia (Acute) H/O oral surgery (Resolved) History of left cataract surgery (Resolved) TIA (transient ischemic attack) (Acute 01/09/19) Left-sided weakness (Acute) Leg edema (Acute) Edema (Acute) 1. Acute hypoxic respiratory failure and COPD exacerbation secondary to COVID-19 pneumonia/history of PE -Remdesivir has been completed, as has Decadron -Appreciate pulmonology assistance -Continue with incentive spirometry -Has negative fluid balance of almost 9 L, continue with IV Lasix, will have to monitor his bicarb as it is risen to 35 today -Leukocytosis is reactive, temperature is normal -Continue with Eliquis -Is is been 24 days since symptom onset and his oxygen requirements are stable, will take him out of isolation today 2. HTN/HLD/A. fib with RVR -Blood pressure stable -Continue with his blood pressure medications as well as his rate control medications -Continue with statin -Continue with Eliquis 3. BPH -Stable -Continue with Flomax and finasteride Disposition: LTAC DVT: Eliquis Inpatient E&M: 87625 Subs Hosp L2
--- NOTE | 2020-10-18 10:29 | CASEMGMT ---
Addendum entered by Sandra Bass 10/18/20 17:08: Demographics sheet faxed to transfer center @ [phone] per Akiko's request. Addendum entered by Sandra Bass 10/18/20 16:03: Call received from [facility]. She states there is a bed available for late this PM and requests for transportation to be set up for no earlier than 9 pm pick-up time. MARYCRUZ Sol, has called pt's to inform her of possible transfer to [facility] this PM and she will be coming in to see pt this evening prior to his transfer. Call placed to [facility] and spoke with Katty to arrange transfer. They are unable to transfer pt's on Airvo and she advised this RN CM to call transfer center @ [phone]. Call placed to transfer center at this time and spoke with Akiko. She was notified of need for pt to transfer to [facility] from [facility] this PM, no earlier than picker operator time for 9 PM. She states they will work on getting transport set up, but she is not certain this will be available this PM. She states she will call [facility] chargeJesus, to let her know if transportation can be arranged this PM or not. She was provided with [facility]'s phone number. She was also given [facility] main number and made aware to call the main line and ask for training personnel supervisor if she is unable to reach [facility] charge nurse. car hostlerJesus, made aware of above. She will notify both Dr Beach and [facility] if transfer is able to be set up this PM. If transportation to [facility] cannot be arranged this PM, then plan is for pt to transfer to [facility] tomorrow. MARYCRUZ Sol, made aware of all of the above as well. Addendum entered by Sandra Bass 10/18/20 15:34: Call received from [facility] and they are able to accept pt w/current Airvo O2 requirements, but they are waiting on a bed to become available. She states it may be available this evening, but this is not confirmed yet. Dr Beach, set up and chargerJesus JOEL, and Ebenezer JOEL, made aware. Green sheet placed on chart w/instructions for transfer to [facility] when bed becomes available. [facility] phone number for nurse to nurse report: [phone] Staff may also call intake liaison @ [facility], @ [phone] for any questions. Addendum entered by Sandra Bass 10/18/20 11:51: Call received from [facility] inquiring about HS BIPAP settings. Call placed to PSN staff and clarification received that pt is on AVAPS. Settings as follows: EPAP/CPAP 10, RATE 12. [facility] was notified of same. She states they are reviewing pt for acceptance d/t high flow Airvo O2 rate and she will contact this RN CM once a decision is made. Original Note: RN CM NOTE: Updated clinicals faxed to [facility]. Call placed to [facility] to inquire about bed availability, as pt is medically ready to discharge. She states she will call this RN CM back once they determine if bed is available today. Jose MENDEZN RN CM
[2020-10-18] MEDS: Menthol/Lanolin/Calamine/Znox 113 GM Tube 1 APPLIC TOPICAL ×2 (10:32→20:12)
[2020-10-18] MEDS: Finasteride 5 MG Tablet PO (10:33)
[2020-10-18] MEDS: dilTIAZem CD 240 MG Capsule PO (10:33)
[2020-10-18] MEDS: APIXABAN 5 MG TABLET PO ×2 (10:34→20:09)
[2020-10-18] MEDS: Metoprolol Tartrate 100 MG Tablet PO ×2 (10:34→20:11)
[2020-10-18] MEDS: Furosemide 40 MG/4 ML Vial IV ×2 (10:35→17:08)
[2020-10-18] MEDS: 0.9% Saline Lock 10 ML Syringe IV ×3 (10:38→20:18)
--- NOTE | 2020-10-18 18:34 | PCM.TXEXTCAR ---
- Diet 10/03/20 19:15 Diet: Cardiac - Heart Healthy Food consistency:: Regular Liquid Consistency:: Regular/Thin Type of Dietary Supplement:: Ensure Enlive Diet Comments: 120 ml w/ meals - pt needs softer foods and chopped meats per pt spouse - Routine Orders/Code Status Routine Lab Work: CBC, BMP Code Status: Full Code - Therapies Physical Therapy: Eval and Treat Occupational Therapy: Eval and Treat - Allergies/Procedures Done in Hospital Allergies/Adverse Reactions: Allergies lisinopril Adverse Reaction (Intermediate, Verified 07/25/20 10:51) cough Procedures: None - Type of Care/Length of Stay Estimated LOS: More Than 30 Days Type of Care Needed: LTAC Rehab Potential: Good Prognosis: Good - Additional Orders/Day of Discharge Day of Discharge: 10/18/20 - Dietary and Speech Recommendations Dietitian Recommendations/Changes: continue cardiac diet, soft/chopped foods per pt request and continue ensure 120mL w/ meals - Follow Up Care Primary Care Physician: Tomy Hernandez MD [Primary Care Provider] - Please follow up with your Primary Care Physician in: 3-5 days
--- NOTE | 2020-10-18 18:36 | DS.PCM_ITS ---
Discharge Date and Diagnosis - Problem List Patient Problems: Active and Suspected Problems (Last Reviewed 07/25/20 @ 11:17 by Anai CHAMBERS, PA) COVID-19 (Acute) Atrial fibrillation with RVR (Acute) Acute respiratory failure with hypoxia (Acute) Date of Admission: 10/03/20 Date of Discharge: 10/18/20 - Primary Discharge Diagnosis Acute Problems: Active Problems (Last Reviewed 07/25/20 @ 11:17 by Anai CHAMBERS, PA) COVID-19 (Acute) Atrial fibrillation with RVR (Acute) Acute respiratory failure with hypoxia (Acute) - Secondary Discharge Diagnosis Chronic Problems: Chronic Problems (Last Reviewed 07/25/20 @ 11:17 by Anai CHAMBERS, PA) BPH (benign prostatic hyperplasia) (Chronic) Hyperlipidemia (Chronic) 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) (FEV1 80-100%) Emphysema of lung (Chronic) NOAM (obstructive sleep apnea) (Chronic) Solitary pulmonary nodule (Chronic) Persistent atrial fibrillation (Chronic) Nonrheumatic aortic (valve) stenosis (Chronic) Nonrheumatic tricuspid (valve) insufficiency (Chronic) Other secondary pulmonary hypertension (Chronic) Abnormal electrocardiogram (Chronic) rn long term care use of drug (Chronic) Antihyperlipidemic PAH (pulmonary artery hypertension) (Chronic) Fever (Chronic) Atrial fibrillation (Chronic) Bilateral pulmonary embolism (Chronic) Hypertension (Chronic) Hospital Course and Treatment Imaging Results: Clinical Impression(s) from Imaging Studies Chest X-Ray 10/03/20 16:35 IMPRESSION: Bilateral pneumonia. Electronically Signed: Andrea Anthony MD at 17:29 EST Tel , Service support , Consults: Pulmonology Operations: None Procedures: None Summary of Care Provided: Per HPI: The patient is a 75 year old M with pmhx of chronic Afib pt of Dr. Rivera, pulmonary HTN and COPD pt of Dr. Russell, NOAM, BPH, pulmonary embolism, moderate aortic stenosis, recent dx of covid 19 ([facility]) 8 days prior who presented to the ER with SOB. 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 Russell who told him to come to the ER. He has been progressively more SOB with cough, fatigue, headache this past week. He was found to have significant hypoxia and pna on cxr. He is now on 6lpm o2 and normally uses none at home. He also was found to have afib with RVR. No CP, palpitations. Hospital Course: 1. Acute hypoxic respiratory failure and COPD exacerbation secondary to COVID- 19 pneumonia/history of PE -Remdesivir has been completed, as has Decadron -Appreciate pulmonology assistance, histo requiring air Vo to maintain his oxy gen sats -Continue with incentive spirometry -Has negative fluid balance of almost 9 L, continue with po Lasix, will have to monitor his bicarb as it is risen to 35 today -Leukocytosis is reactive, remains afebrile -Continue with Eliquis -Is is been 24 days since symptom onset and his oxygen requirements are stable, will take him out of isolation today -Discussed with him the plan for discharge today he expressed understanding of the risk and benefits of going long-term care facility today, he would like to go today if possible to start on his rehab. 2. HTN/HLD/A. fib with RVR -Blood pressure stable -Continue with his blood pressure medications as well as his rate control medications -Continue with statin -Continue with Eliquis 3. BPH -Stable -Continue with Flomax and finasteride Disposition: LTAC Patient Problems: Active and Suspected Problems (Last Reviewed 07/25/20 @ 11:17 by Anai Capellan PA, PA) COVID-19 (Acute) Atrial fibrillation with RVR (Acute) Acute respiratory failure with hypoxia (Acute) - Physical Exam Vitals/I&O's: Vital Signs Temp Pulse Resp BP Pulse Ox 97.9 F 85 18 110/66 95 10/18/20 17:00 10/18/20 17:00 10/18/20 17:00 10/18/20 17:00 10/18/20 17:00 Oxygen Flow Rate (L/min) 55 Oxygen Delivery Method Airvo Weight: 229 lb 4.8 oz Body Mass Index (BMI) 36.5 Finger Stick Blood Glucose 164 Intake and Output for Last 24 Hours 10/16/20 10/17/20 10/18/20 23:59 23:59 23:59 Intake Total 240 / 240 1100 / 1100 240 / 240 Output Total 1275 / 1275 1900 / 1900 1400 / 1400 Balance -1035 / -1035 -800 / -800 -1160 / -1160 Laboratory Results 10/18/20 07:46: Sodium 141, Potassium 3.6, Chloride 102, Carbon Dioxide 35.0 H, Anion Gap 4 L, BUN 34 H, Creatinine 0.90, Estim Creat Clear Calc 67.56, Est GFR (MDRD) Af Amer 106, Est GFR (MDRD) Non-Af 87, BUN/Creatinine Ratio 37.8 H, Glucose 105, Calcium 9.0 Current Medications Acetaminophen (Acetaminophen 325 Mg Tablet) 650 mg PO Q6H PRN PRN PRN Reason: Pain Score 1-10/Temp > 100.7 F Last Admin: 10/08/20 21:13 Dose: 650 mg Documented by: Al Hydroxide/Mg Hydroxide (Mag Hydrox/Al Hydrox/Simeth 30 Ml Udc) 30 ml PO Q6H PRN PRN PRN Reason: Gastric Burning Albuterol Sulfate (Albuterol Ih 8.5 Gm (Proair) Inhaler (200 Puffs)) 2 puff INHALATION Q4H [facility] Last Admin: 10/18/20 17:08 Dose: 2 puff Documented by: Apixaban (Apixaban 5 Mg Tablet) 5 mg PO BID [facility] Last Admin: 10/18/20 10:34 Dose: 5 mg Documented by: Atorvastatin Calcium (Atorvastatin Calcium 10 Mg Tablet) 10 mg PO QHS [facility] Last Admin: 10/17/20 20:04 Dose: 10 mg Documented by: Calamine/Phenol (Menthol/Lanolin/Calamine/Znox 113 Gm Tube) 1 applic TOPICAL BID [facility]; Protocol Last Admin: 10/18/20 10:32 Dose: 1 applicatio Documented by: Diltiazem HCl (Diltiazem Cd 240 Mg Capsule) 240 mg PO DAILY [facility] Last Admin: 10/18/20 10:33 Dose: 240 mg Documented by: Finasteride (Finasteride 5 Mg Tablet) 5 mg PO DAILY [facility] Last Admin: 10/18/20 10:33 Dose: 5 mg Documented by: Furosemide (Furosemide 40 Mg/4 Ml Vial) 40 mg IV BID@1000,1800 [facility] Last Admin: 10/18/20 17:08 Dose: 40 mg Documented by: Lorazepam (Lorazepam 2 Mg/Ml Syringe) 0.5 mg IV Q4H PRN PRN PRN Reason: severe agitation w/BIPAP use Last Admin: 10/18/20 01:04 Dose: 0.5 mg Documented by: Metoprolol Tartrate (Metoprolol Tartrate 100 Mg Tablet) 100 mg PO BID [facility] Last Admin: 10/18/20 10:34 Dose: 100 mg Documented by: Miscellaneous Information (Inhaler, Assist Devices 1 Each Spacer) 1 each INHALATION PRN PRN PRN Reason: WITH ALBUTEROL INHALER Last Admin: 10/03/20 23:35 Dose: 1 each Documented by: Nitroglycerin (Nitroglycerin (Inpatient Use) 0.4 Mg Tab.Subl) 0.4 mg SUBLINGUAL Q5M PRN PRN Reason: CARDIAC/CHEST PAIN Ondansetron HCl (Ondansetron 4 Mg/2 Ml Vial) 4 mg IV Q8H PRN PRN PRN Reason: NAUSEA/VOMITING Polyethylene Glycol (Polyethylene Glycol 3350 17 Gm Packet) 17 gm PO DAILY [facility] Last Admin: 10/18/20 10:36 Dose: Not Given Documented by: Sodium Chloride (0.9% Saline Lock 10 Ml Syringe) 10 - 40 ml IV UD PRN PRN Reason: SALINE FLUSH Last Admin: 10/18/20 17:08 Dose: 10 ml Documented by: Tamsulosin HCl (Tamsulosin Hcl 0.4 Mg Capsule) 0.8 mg PO DAILY@2200 [facility] Last Admin: 10/17/20 20:03 Dose: 0.8 mg Documented by: Throat Lozenges (Benzocaine/Menthol 1 Lozenge) 1 lozenge MUCOUS MEM Q2H PRN PRN PRN Reason: SORE THROAT Last Admin: 10/05/20 21:45 Dose: 1 lozenge Documented by: Home Medications: Medications to take at Discharge Finasteride [Proscar] 5 mg PO DAILY 09/24/15 tamsulosin 0.4 mg capsule 0.8 mg PO DAILY cap 02/28/18 diltiazem HCl 180 mg capsule,extended release 24 hr 180 mg PO DAILY #90 cap 08/25/19 atorvastatin 10 mg tablet 10 mg PO QHS #90 tab 10/30/19 metoprolol tartrate 50 mg tablet 50 mg PO BID #180 tab 10/30/19 furosemide 40 mg tablet 40 mg PO DAILY #90 tab 03/12/20 apixaban 5 mg tablet 5 mg PO BID #180 tab 09/19/20 Primary Care Physician: Tomy Hernandez MD [Primary Care Provider] - Please follow up with your Primary Care Physician in: 3-5 days Disposition: [facility] Acute Care Minutes spent on discharge:: 35 Patient Condition:: Stable Medical Necessity - Tobacco Use Smoking Status: Former smoker Tobacco Use: Non-smoker Meaningful Use Info Meaningful Use Diagnoses (Choose all that apply): None applicable Inpatient E&M: 79749 Disch Hosp
--- NOTE | 2020-10-18 19:09 | NURSING ---
Received call from transport - they are unable to transport pt to [facility] this evening due to have only one truck. States they are unuse if it will even happen this weekend with them only having one truck on for the weekend. did state that they will keep trying and that it may have to get approval from administration.. Call placed. to [facility] at [facility] to let her know. Baylee suggested to see if [facility] transport pt with bipap and switch pt back over to airvo when at [facility].. Call placed to [facility] and they are able to transport the pt on bipap.. they will have squad here at 2100.
[2020-10-18] MEDS: Tamsulosin HCl 0.4 MG Capsule 0.8 MG PO (20:10)
[2020-10-18] MEDS: Atorvastatin Calcium 10 MG Tablet PO (20:10)
--- NOTE | 2020-10-18 22:12 | NURSING ---
[facility] here to transport pt to [facility]. Black bag of belongings sent with patient(details on d/c paper in chart). Pt stable upon discharge.
== END 2020-10-18 22:20 | DRG 177 ==
LOC: ED 16:31 → MS2 18:06
PROVIDERS: Internal Medicine; Internal Medicine Critical Care Medicine; Admitting Provider Internal Medicine; Emergency Provider Emergency Medicine; PCP Internal Medicine; Visit Provider Family Medicine
DX: U07.1 COVID-19 (principal); J12.82 Pneumonia due to coronavirus disease 2019; J96.01 Acute respiratory failure with hypoxia; I26.09 Other pulmonary embolism with acute cor pulmonale; I48.19 Other persistent atrial fibrillation; J44.1 Chronic obstructive pulmonary disease with (acute) exacerbation; J44.0 Chronic obstructive pulmonary disease with (acute) lower respiratory infection; N40.0 Benign prostatic hyperplasia without lower urinary tract symptoms; I10 Essential (primary) hypertension; E78.5 Hyperlipidemia, unspecified; G47.33 Obstructive sleep apnea (adult) (pediatric); E66.9 Obesity, unspecified; E87.6 Hypokalemia; R91.1 Solitary pulmonary nodule; I27.29 Other secondary pulmonary hypertension; Z99.81 Dependence on supplemental oxygen; Z87.891 Personal history of nicotine dependence; Z68.37 Body mass index [BMI] 37.0-37.9, adult; Z66 Do not resuscitate; K59.00 Constipation, unspecified
CPT/HCPCS: 36415; 71045; 80048; 80053; 83605; 83735; 83880; 84484; 85025; 87040; 93005; 94003; 94660; 94667; 94668; 97110; 97116; 97162; 97165; 97530; 97535; 97802; 97803; 99251; 99285; J7030; J7050; A4216; G0463; J1940

== ENCOUNTER → 2020-12-12 14:13 | Outpatient (CLI) | payer MEDICARE, OTHER, SELFPAY ==
[2020-12-12 13:07] VITALS: BMI 34.4
[2020-12-12 15:03] LABS: Anion Gap 5 (5-15); BUN 11 mg/dL (7-18); BUN/Creat Ratio 10.6 RATIO (10-20); Calcium,Total 9.1 mg/dL (8.5-10.1); Chloride 104 mmol/L (98-107); Creatinine, Serum 1.04 mg/dL (0.70-1.30); EST Glomerular Filtration Rate 74 mL/min (>60); Est Glom Filt Rate - Afr Amer 89 mL/min (>60); Glucose 115 mg/dL (74-106); Potassium 3.9 mmol/L (3.5-5.1); Sodium Level 138 mmol/L (136-145)
== END ==
PROVIDERS: PCP Internal Medicine; Visit Provider Nurse Practitioner Family
DX: I48.91 Unspecified atrial fibrillation (principal); I10 Essential (primary) hypertension; Z79.899 Other long term (current) drug therapy
CPT/HCPCS: 36415; 80048

== ENCOUNTER 2020-12-18 13:31 | Outpatient (RCR) | payer MEDICARE, OTHER, SELFPAY ==
[2020-12-12 13:07] VITALS: BMI 34.4
== END 2021-02-18 23:59 ==
LOC: IMMUN 13:31
PROVIDERS: PCP Internal Medicine; Visit Provider Family Medicine
DX: Z23 Encounter for immunization (principal)
CPT/HCPCS: 0001A; 0002A; 91300

== ENCOUNTER → 2021-02-03 09:26 | Outpatient (CLI) | payer MEDICARE, OTHER, SELFPAY ==
[2021-01-01 10:01] VITALS: BMI 34.9
--- NOTE | 2021-02-03 12:38 | PFTCOMP_ITS ---
COMPLETE PULMONARY FUNCTION TEST INTERPRETATION Brief HPI: Patient is a 75 year old male, currently under the care of myself, who presents to [facility] for complete pulmonary function tests secondary to diagnosis of pulmonary hypertension. Respiratory therapist reports good effort and reproducible results. Interpretation: Forced expiration spirometry shows no large airways obstructive ventilatory defect with an FEV1 of 80% predicted. There is no significant bronchodilator response by strict ATS criteria. Spirograms are of good quality and plateau normally. The respiratory flow volume loop shows a normal pattern. Lung volumes by body plethysmography show a decrease total lung capacity at 3.95 L, 66% predicted. All other lung volumes are reduced symmetrically. Diffusion capacity by carbon monoxide is decreased at 48% predicted. The airway resistance is normal. Compared to previous pulmonary function tests from 08/15/2019, there is been a significant reduction in TLC and DLCO by 16% and 24% respectively. Impression: Moderate restrictive ventilatory defect with a symmetric reduction diffusing capacity and worsening compared to 2019.
== END ==
PROVIDERS: PCP Internal Medicine; Referring Provider Internal Medicine Critical Care Medicine; Visit Provider Internal Medicine Critical Care Medicine
DX: I27.29 Other secondary pulmonary hypertension (principal)
CPT/HCPCS: 94060; 94726; 94729

== ENCOUNTER → 2021-02-04 11:08 | Outpatient (CLI) | payer MEDICARE, OTHER, SELFPAY ==
[2021-01-01 10:01] VITALS: BMI 34.9
[2021-02-04 11:35] VITALS: PULSE 82; PULSE 83; PULSE 84; PULSE 85; PULSE 87; PULSE 92; PULSE 94; PULSE 97; O2SAT 88; O2SAT 89; O2SAT 90; O2SAT 91; O2SAT 92; O2SAT 94; O2SAT 95
--- NOTE | 2021-02-04 11:37 | CPS ---
Patient arrived on 2L NC. Patient's RA SpO2 was 95%. Patient started walk today on RA and pulse ox dropped at the 2 min luba to 88%. 2L applied for the rest of the testing.
--- NOTE | 2021-02-04 13:22 | PCM.PSN.6M ---
PSN 6 Minute Walk Test 6 Minute Walk Test 6 Minute Walk Test: 6 Minute Walk Test PSN:6-Minute Walk Test Start: 02/04/21 11:34 Freq: Status: Active Protocol: [id number] Document 02/04/21 11:35 LOU (Rec: 02/04/21 11:38 LOU [id number]) 6 Minute Walk Test Date Performed 02/04/21 Time Performed 11:15 Height 5 ft 8 in Weight: 104.326 kg Weight in Pounds 230.[address]: Bran Russell Assistive device used: None Pre-test Oxygen Delivery Method Room Air Pulse Ox (%) 95 Pulse Rate (60-100 beats/min) 83 Dyspnea Terrell Scale (0-10) 0 Exertion Terrell Scale (6-20) 6 1st minute Oxygen Delivery Method Room Air Pulse Ox (%) 91 Pulse Rate (60-100 beats/min) 85 2nd minute Oxygen Delivery Method Room Air Pulse Ox (%) 88 Pulse Rate (60-100 beats/min) 92 Dyspnea Terrell Scale (0-10) 0 Exertion Terrell Scale (6-20) 11 3rd minute Oxygen Flow Rate (L/min) (L/min) 2 Oxygen Delivery Method Nasal Cannula Pulse Ox (%) 92 Pulse Rate (60-100 beats/min) 87 4th minute Oxygen Flow Rate (L/min) (L/min) 2 Oxygen Delivery Method Nasal Cannula Pulse Ox (%) 90 Pulse Rate (60-100 beats/min) 94 5th minute Oxygen Flow Rate (L/min) (L/min) 2 Oxygen Delivery Method Nasal Cannula Pulse Ox (%) 89 Pulse Rate (60-100 beats/min) 97 6th minute Oxygen Flow Rate (L/min) (L/min) 2 Oxygen Delivery Method Nasal Cannula Pulse Ox (%) 94 Pulse Rate (60-100 beats/min) 82 Post-test Oxygen Flow Rate (L/min) (L/min) 2 Oxygen Delivery Method Nasal Cannula Pulse Ox (%) 95 Pulse Rate (60-100 beats/min) 84 Full Laps Walked 8 Partial Lap, Number of Tiles Walked 10 Total Distance Walked (ft) 482 02/04/21 11:37 Cardiopulmonary Services by Larissa Bruno Patient arrived on 2L NC. Patient's RA SpO2 was 95%. Patient started walk today on RA and pulse ox dropped at the 2 min luba to 88%. 2L applied for the rest of the testing. Initialized on 02/04/21 11:37 - END OF NOTE Interpretation Interpretation: The patient was noted to be 95% on room air, but desaturated to 88% in the second minute. Patient was placed on 2 L and was able to complete testing. In total, the patient traveled only 482 feet over the course of 6 minutes with no assistive devices. These findings are consistent with a respiratory limitation exercise tolerance. Recommendations Recommendations: No supplemental oxygen is indicated at rest, but patient should be using 2 L nasal cannula with any exertion.
== END ==
PROVIDERS: PCP Internal Medicine; Referring Provider Internal Medicine Critical Care Medicine; Visit Provider Internal Medicine Critical Care Medicine
DX: I27.29 Other secondary pulmonary hypertension (principal)
CPT/HCPCS: 94618

== ENCOUNTER → 2021-03-05 10:49 | Outpatient (CLI) | payer MEDICARE, OTHER, SELFPAY ==
[2021-01-01 10:01] VITALS: BMI 34.9
--- NOTE | 2021-03-05 10:50 | ECHOD_ITS ---
Reason For Study: Murmur Procedure This was a 2D Doppler, Color Flow transthoracic echocardiogram. The exam was of adequate technical quality. Exam performed in department. Left Ventricle Normal LV size. Left ventricular systolic function is normal. The estimated ejection fraction is 65 %. Unable to assess diastolic dysfunction. No regional wall motion abnormalities noted. Right Ventricle Normal RV size. Normal systolic function. Atria The left atrium is severely enlarged. The right atrium is severely enlarged. No doppler evidence for ASD. Mitral Valve There is moderate mitral annular calcification. Extension of the mitral annular calcification on the base of the posterior mitral valve leaflet. Moderate focal mitral valve calcification of the anterior leaflet. Mild mitral valve stenosis. Trivial mitral valve insufficiency. Tricuspid Valve Normal tricuspid valve. Moderate (2+) tricuspid valve insufficiency. Right ventricular systolic pressure estimated to be 52 mmHg. Aortic Valve Trisinus/trileaflet aortic valve. Moderate diffuse aortic valve thickening. Moderate to severe diffuse aortic valve calcification. Severe aortic stenosis. Trivial aortic valve insufficiency. Pulmonic Valve The pulmonic valve is not well visualized. Mild (1+) pulmonic valve insufficiency. Great Vessels Normal sized aortic root. Pericardium/Pleural No pericardial effusion. MMode/2D Measurements & Calculations LVIDd: 4.7 cm IVSd: 1.2 cm LVOT diam: 2.0 cm LVIDs: 2.8 cm LVPWd: 1.3 cm LVOT area: 3.3 cm2 RVDd: 3.9 cm FS: 40.4 % Ao root diam: 3.5 cm LAV(MOD-bp): 96.4 ml LVAd ap4: 21.2 cm2 LAV(MOD-bp) Indexed: 44.4 ml/m2 LVLd ap4: 6.5 cm LAV(MOD-sp2): 80.5 ml EDV(MOD-sp4): 58.9 ml LAV(MOD-sp4): 101.4 ml EDV(sp4-el): 59.0 ml LVAs ap4: 10.5 cm2 LVLs ap4: 5.2 cm ESV(MOD-sp4): 18.9 ml ESV(sp4-el): 18.0 ml EF(MOD-sp4): 67.9 % EF(sp4-el): 69.6 % SV(MOD-sp4): 40.0 ml SV(sp4-el): 41.1 ml LA A4 area: 30.4 cm2 LA dimension(2D): 5.8 cm RA A4 area: 32.4 cm2 Time Measurements MV dec time: 0.24 sec Doppler Measurements & Calculations MV E max michael: 146.7 cm/sec MV V2 max: 156.8 cm/sec MV P1/2t max michael: 151.0 cm/sec MV max P.9 mmHg MV P1/2t: 71.2 msec MV V2 mean: 73.9 cm/sec MV dec slope: 621.2 cm/sec2 MV mean P.0 mmHg MVA(P1/2t): 3.1 cm2 MV V2 VTI: 35.2 cm MVA(VTI): 1.8 cm2 Ao V2 max: 378.3 cm/sec LV V1 max: 90.3 cm/sec SV(LVOT): 63.5 ml Ao max P.3 mmHg LV V1 max P.3 mmHg Ao V2 mean: 293.5 cm/sec LV V1 mean P.8 mmHg Ao mean P.8 mmHg LV V1 mean: 63.0 cm/sec Ao V2 VTI: 82.3 cm LV V1 VTI: 19.3 cm PAIGE(I,D): 0.77 cm2 PAIGE(V,D): 0.78 cm2 PA V2 max: 97.4 cm/sec PI end-d michael: 116.6 cm/sec TR max michael: 331.3 cm/sec TR max P.9 mmHg ECHO/Echo Complete Interpretation Summary Left ventricular systolic function is normal. The estimated ejection fraction is 65 %. The left atrium is severely enlarged. The right atrium is severely enlarged. There is moderate mitral annular calcification. Extension of the mitral annular calcification on the base of the posterior mitr al valve leaflet. Moderate focal mitral valve calcification of the anterior leaflet. Mild mitral valve stenosis. Trivial mitral valve insufficiency. Moderate (2+) tricuspid valve insufficiency. Severe aortic stenosis. Trivial aortic valve insufficiency. Mild (1+) pulmonic valve insufficiency. Right ventricular systolic pressure estimated to be 52 mmHg. Unable to assess diastolic dysfunction. Ordering Physician: Anai Capellan Referring Physician: Tomy Hernandez Performed By: Alyse Jacobsen, ALYSIA, RVT
== END ==
PROVIDERS: PCP Internal Medicine; Referring Provider Physician Assistant Medical; Visit Provider Physician Assistant Medical
DX: I35.0 Nonrheumatic aortic (valve) stenosis (principal); R01.1 Cardiac murmur, unspecified
CPT/HCPCS: 93306

== ENCOUNTER → 2021-04-22 11:46 | Outpatient (CLI) | payer MEDICARE, OTHER, SELFPAY ==
[2021-04-22 11:06] VITALS: BMI 34.9
--- NOTE | 2021-04-22 11:59 | RAD_ITS ---
STUDY: X-RAY CHEST REASON FOR EXAM: Male, 75 years old. Worsening shortness of breath TECHNIQUE: PA and lateral views of the chest. COMPARISON: 10/03/2020 FINDINGS: There are interstitial changes of the lungs. There is no demonstrated pleural abnormality. Normal size heart. Normal mediastinum and kristy. Normal visualized pulmonary arteries. There is atherosclerotic calcification of the aortic arch with tortuosity. There are diffuse degenerative changes of the visualized thoracic spine. Normal visualized ribs, clavicles, and shoulders. There is no demonstrated abnormality of the visualized soft tissue structures of the upper abdomen. RAD/Chest PA and Lateral IMPRESSION: Chronic interstitial changes in both lung miller without a superimposed acute pulmonary process Electronically Signed: Flaco Baer MD at 12:25 EDT , Service support ,
[2021-04-22 12:27] LABS: Hematocrit 43.9 % (40-54); Hemoglobin 13.7 g/dL (13.0-16.5); Mean Corp Hgb Conc 31.2 g/dL (32-36); Mean Corpuscular Hgb 28.5 pg (27.0-32.0); Mean Corpuscular Volume 91.3 fL (80-94); Mean Platelet Vol. 9.8 fl (6.2-12.0); Platelet Count 267 K/mm3 (150-450); RBC Distribution Width CV 17.9 % (11.6-14.6); RBC Distribution Width SD 59.9 fl (35.1-43.9); Red Blood Count 4.81 M/mm3 (4.6-6.2); White Blood Count 11.1 K/mm3 (4.4-11.0)
[2021-04-22 12:37] LABS: Anion Gap 6 (5-15); BUN 26 mg/dL (7-18); BUN/Creat Ratio 21.1 RATIO (10-20); Calcium,Total 9.6 mg/dL (8.5-10.1); Chloride 107 mmol/L (98-107); Creatinine, Serum 1.23 mg/dL (0.70-1.30); EST Glomerular Filtration Rate 61 mL/min (>60); Est Glom Filt Rate - Afr Amer 73 mL/min (>60); Glucose 129 mg/dL (74-106); Potassium 4.3 mmol/L (3.5-5.1); Sodium Level 141 mmol/L (136-145)
[2021-04-22 12:38] LABS: International Normalized Ratio 1.3; Prothrombin Time (Protime)PT. 15.8 SECONDS (11.7-14.9)
[2021-04-22 12:39] LABS: Partial Thromboplast Time 36.6 Seconds (24.1-36.2)
== END ==
PROVIDERS: PCP Internal Medicine; Referring Provider Internal Medicine Cardiovascular Disease; Visit Provider Internal Medicine Cardiovascular Disease
DX: R06.00 Dyspnea, unspecified (principal); I34.2 Nonrheumatic mitral (valve) stenosis; I48.19 Other persistent atrial fibrillation; I35.0 Nonrheumatic aortic (valve) stenosis; R60.9 Edema, unspecified
CPT/HCPCS: 36415; 71046; 80048; 85027; 85610; 85730

== ENCOUNTER 2021-05-06 08:50 | Day surgery (SDC) | payer MEDICARE, OTHER, SELFPAY ==
[2021-03-31 07:52] VITALS: BMI 34.9
--- NOTE | 2021-04-30 17:48 | PCM.HP.BLA ---
History and Physical Date of Admission: 05/06/21 [facility] [id number] [place], [place] [id number] OFFICE VISITDate of Service: 03/28/21 MR#:[id number]:[id number]: CARLIE DEGROOT HRep #:[id number]:[id number] Provider:Dr. Gal Salmeron MDAge/Sex: 75/M [facility] H[facility] HPI History of Present Illness Surgical H&P: Yes Details: This is a 75-year-old white male with a history of persistent/permanent atrial fibrillation, valvular heart disease with aortic valve stenosis/mitral valve stenosis, hypertension, hyperlipidemia, superimposed upon a history of underlying COPD, pulmonary emboli, and COVID-19 (prolonged hospital stay/ECF stay), currently wearing O2 nasal cannula, who presents for outpatient cardiovascular follow-up. He has been previously followed by my former colleague Dr. Jeff Bowie. The patient denies symptoms considered classic for angina pectoris, CHF / pulmonary edema (with respect to orthopnea / PND), ongoing palpitations, or near syncope / syncope. He does complain of shortness of breath and dyspnea especially with exertion. He does complain of bilateral lower extremity peripheral pitting edema. He states during his prolonged hospitalization for his COVID-19 and his prolonged ECF stay following his hospitalization his medications were adjusted to assist with his atrial fibrillation rate control. He notes overall it has come under better control. He does believe that as his diltiazem dose was increased his lower extremity edema worsened. He states it is improving with diuretic therapy. He recently underwent evaluation with a transthoracic echocardiogram. The results are noted below. Intake Vital Signs 03/28/21 08:26 Height 5 ft 8 in Weight: 231 lb BMI 35.1 BP 104/60 Blood Pressure Location Lt brachial Position Sitting Respiration 18 Pulse 72 Pulse Source Auscultation Oxygen Delivery Method nasal canula Oxygen Flow Rate (L/min) 2 Comment Wears O2 at night and as needed during the day. Intake Visit Reasons: 6 m fu (LORINN PT) Bus Person Required: No Accompanied by: Is patient in pain?: No Allergies lisinopril Adverse Reaction (Intermediate, Verified 03/28/21 08:36) cough Medications finasteride 5 mg PO DAILY 09/24/15 [History Confirmed 03/28/21] tamsulosin 0.4 mg capsule 0.8 mg PO DAILY cap 02/28/18 [History Confirmed 03/28/21] apixaban 5 mg tablet 5 mg PO BID #180 tab 09/19/20 [Rx Confirmed 03/28/21] potassium chloride 20 mEq tablet,extended release(part/cryst) 20 meq PO BID #180 tablet 12/06/20 [Rx Confirmed 03/28/21] digoxin 125 mcg (0.125 mg) tablet 125 mcg PO DAILY #90 tablet 12/16/20 [Rx Confirmed 03/28/21] furosemide 40 mg tablet 40 mg PO BID #180 tablet 12/16/20 [Rx Confirmed 03/28/21] Disability Placard #1 each 01/01/21 [Rx Confirmed 03/28/21] metoprolol tartrate 50 mg tablet 75 mg PO BID 90 Days #135 tablet 02/17/21 [Rx Confirmed 03/28/21] diltiazem HCl 120 mg tablet 120 mg PO BID 90 Days #180 tab 03/28/21 [Rx Confirmed 03/28/21] Ejection fraction %: 65 to 70 [facility] Medical History (Updated 03/28/21 @ 08:48 by Sigrid Mo) Atrial fibrillation Bilateral pulmonary embolism BPH (benign prostatic hyperplasia) COVID-19 (~09/2020) Emphysema of lung Fever Hyperlipidemia Hypertension Left-sided weakness Non-rheumatic mitral valve stenosis Nonrheumatic aortic (valve) stenosis Nonrheumatic tricuspid (valve) insufficiency NOAM (obstructive sleep apnea) Other secondary pulmonary hypertension Persistent atrial fibrillation Solitary pulmonary nodule Stage 1 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 Surgical History H/O oral surgery History of left cataract surgery Family History Mother CVA (cerebral vascular accident) Diabetes Other Family history of CVA Social History Smoking Status: Former smoker quit date: 09/13/11 pack-years: 80 Tobacco: How many years used: 40 how long ago did patient quit smokin second hand exposure: No alcohol intake: never substance use type: does not use caffeine: Yes Type: tea what type of physical activity do you participate in: none seatbelt use: always do you feel safe at home: Yes ROS Const Const: Negative for fatigue, weakness, headache(s), frequent falls, difficulty sleeping or excessive sweating Eyes Eyes: Negative for loss of peripheral vision, transient loss of vision, blurry vision, double vision or tunnel vision ENT ENT: Negative for headache(s), dizziness, Nosebleed/epistaxis or balance problems Cardio Chest Pain: No Palpitations: No Edema: Bilateral Muscle aches with walking: None Resp Respiratory: Positive for SOB with activity (Only with increased activity. No problems with daily activity); Negative for SOB at rest, SOB orthopnea\SOB lying down, Cough or paroxysmal nocturnal dyspnea GI GI: Negative nausea, vomiting, heartburn or black,tarry stools : Negative for hematuria Musc Musc: Negative for muscle aches/ myalgia, muscle weakness, joint pain or balance problems Skin Skin: Negative non-healing lesions, rash or unusual bruising Neuro Neuro: Negative for dizziness, lightheadedness, near syncope, syncope, frequent falls, headache(s), weakness, blurry vision, double vision or lack of coordination Ag Hematologic/Lymphatic: Negative for easy bleeding or easy bruising Endo Endo: Negative for fatigue, excessive sweating or increased thirst/drinking Psych Psych: Negative for anxiety or depression Allergy Allergy/Immunology: Negative for hives and Negative for rash Cardiology Exam Const Appearance: cooperative, healthy appearing, comfortable, no acute distress, well developed, well groomed and other (wearing O2 NC) Nutritional Appearance: obese Orientation: alert, awake and oriented x3 Head Head: normal to inspection, normocephalic and atraumatic Ears: hearing grossly impaired Nose: external nose normal Face and Sinus: face symmetric Eyes Eyelids: eyelids normal Conjunctivae: conjunctivae normal Pupils: PERRL EOM: EOM intact bilaterally Neck Neck: normal visual inspection and full ROM Carotids: normal carotid upstroke Chest Chest inspection: normal inspection of the chest, symmetric chest movement and normal respiratory effort Auscultation: Bilateral: Clear to Auscultation Cardio Palpation: normal PMI Rhythm: irregularly irregular Heart sounds: S1 normal, S2 normal and murmur Murmur: Grade 3/6, harsh, mid diastolic, LLSB, LVOT and sternal notch GI GI: normal to inspection, soft, bowel sounds present and obese Neuro General: patient alert, patient awake, patient oriented x3 and moves all extremities Skin Skin: no rashes or lesions noted Extremities Pulses: Normal: Right Radial Pulse and Left Radial Pulse Lower Extremity Edema: +1: Bilateral Psych Psychological: normal affect Assessment and Plan Assessment and Plan (1) Nonrheumatic aortic (valve) stenosis: Status: Chronic Plan - Dr. Gal Salmeron MD: He does have based upon his history, exam, and his echocardiogram findings suggestive of progressive aortic valve disease to severe aortic valve stenosis. This can be a contributing factor to his shortness of breath/dyspnea and potentially his lower extremity edema. At the present time he will continue medical therapy with adjustment as deemed appropriate. A discussion was held with him with respect to further evaluation of his cardiovascular status, which would include diagnostic cardiac catheterization, as gaining additional cardiovascular evaluation in preparation for a tertiary care center evaluation for his valvular heart disease to be considered for either a TAVR or a surgical based aortic valve replacement. The procedure and risk were discussed with the patient with his spouse present. At the present time he states he wants to consider his options before deciding how he wants to proceed. (2) Non-rheumatic mitral valve stenosis: Status: Acute Plan - Dr. Gal Salmeron MD: Based upon his recent studies it appears he has mild mitral valve stenosis. It is unclear if this is a contributing factor, noting it appeared mild, to his atrial dysrhythmia and his associated respiratory related issues. This would have to be taken into consideration with respect to future cardiovascular evaluation and care both locally and at a tertiary care center. (3) Atrial fibrillation: Status: Chronic Qualifiers: Atrial fibrillation type: persistent Qualified Code(s): I48.1 - Persistent atrial fibrillation Plan - Dr. Gal Salmeron MD: The patient's rate apparently has been coming under better control. The present time he will decrease his diltiazem CD to 120 mg twice daily, continue his other medications, and monitor his response. (4) Hyperlipidemia: Status: Chronic Qualifiers: Hyperlipidemia type: unspecified Qualified Code(s): E78.5 - Hyperlipidemia, unspecified Plan - Dr. Gal Salmeron MD: A copy of the patient's most recent lipid labs will be appreciated for continuity of care. (5) Hypertension: Status: Chronic Qualifiers: Hypertension type: essential hypertension Qualified Code(s): I10 - Essential (primary) hypertension Plan - Dr. Gal Salmeron MD: The patient's blood pressure appears to be stable at this time. He'll continue medical therapy and follow-up. (6) Leg edema: Status: Acute Plan - Dr. Gal Salmeron MD: The patient will monitor his lower extremity edema as he adjust his medications, etc., and keep the office updated. Plan Details Other Medications: Changed: From: diltiazem HCl 120 mg PO TID 90 days 270 tabs 3RF To: diltiazem HCl 120 mg PO BID 90 days 180 tabs 3RF Additional Comments: Thank you for allowing me to participate in the care of your patient. Please don't hesitate to call if any issues arise. This note was generated using a voice recognition system and there may be incorrect words, spelling or punctuation that were not noted when reviewing the office note prior to saving. Follow Up: 3 Months (PFM) COVID (Procedure Consent) Procedure Criteria Procedure Criteria: Yes Elective The surgeon/proceduralist and patient have discussed in detail the risk of exposure to and/or potential harm posed by the COVID-19 virus with having a surgery/procedure at this time versus the risk of delaying the surgery/procedure. It is not possible to know either the risk of delaying the surgery or procedure or chance of getting an infection with perfect accuracy, but a joint decision was made between the patient and the surgeon/proceduralist to proceed at this time with the scheduled surgery/procedure as indicated on the consent form. Coding Level of Care Code Off vis,est,level 4 Diagnoses Nonrheumatic aortic (valve) stenosis I35.0 Non-rheumatic mitral valve stenosis I34.2 Atrial fibrillation I48.1 Atrial fibrillation type: persistent Hyperlipidemia E78.5 Hyperlipidemia type: unspecified Hypertension I10 Hypertension type: essential hypertension Leg edema R60.0 Coding Level of Care Code Off vis,est,level 4 Diagnoses Nonrheumatic aortic (valve) stenosis I35.0 Non-rheumatic mitral valve stenosis I34.2 Atrial fibrillation I48.1 Atrial fibrillation type: persistent Hyperlipidemia E78.5 Hyperlipidemia type: unspecified Hypertension I10 Hypertension type: essential hypertension Leg edema R60.0 Supplemental Info Supplemental Information Transthoracic echocardiogram: 03-05-2021 Interpretation Summary Left ventricular systolic function is normal. The estimated ejection fraction is 65 %. The left atrium is severely enlarged. The right atrium is severely enlarged. There is moderate mitral annular calcification. Extension of the mitral annular calcification on the base of the posterior mitral valve leaflet. Moderate focal mitral valve calcification of the anterior leaflet. Mild mitral valve stenosis. Trivial mitral valve insufficiency. Moderate (2+) tricuspid valve insufficiency. Severe aortic stenosis. Trivial aortic valve insufficiency. Mild (1+) pulmonic valve insufficiency. Right ventricular systolic pressure estimated to be 52 mmHg. Unable to assess diastolic dysfunction. Labs: LDL Cholesterol 73 mg/dL (0-130) HDL Cholesterol 47 mg/dL (40-) Triglycerides 125 mg/dL (-199) VLDL Cholesterol 25 mg/dL (5-40) Diagnostics: Electrocardiogram Echocardiogram Stress Test NM Chest X-Ray Pulmonary: Pulmonary Function Test Pulmonary Exercise Test 03/28/21 0928<Electronically signed by Gal Salmeron MD>Date Gal Salmeron MD Cosigner Signature:Date (if applicable) CC: Dr. Tomy Hernandez MD ~ Assessment & Plan Addt'l Comments Addendum: The patient elected to proceed with diagnostic cardiac catheterization. In the interim he did have concerns of a lower extremity cellulitis. He was evaluated by his other physicians. He was treated with antibiotic therapy. He was reevaluated in the office by the office FINANCIAL SALES CONSULTANT and RN. His lower extremity was thought to demonstrate clinical improvement. Thus, the decision was to proceed with further evaluation with diagnostic cardiac catheterization. As noted before, the procedure and risks have been discussed with the patient and he was agreeable to this approach.
[2021-05-05 14:25] VITALS: BMI 35.1
--- NOTE | 2021-05-06 11:36 | CL.D_ITS ---
Patient Name: CARLIE DEGROOT Study Date: 05/06/2021 Performing: Gal Salmeron MD Ht: 68.11 inches 173 cm : 1945 Wt: 231.49 lbs 105 kg Age: 75 Gender: male BSA: 2.18 PROCEDURE(S) PERFORMED NO56-KFH/COR DC11-AO ROOT ANGIO WITH HEART CATH CLINICAL PROFILE AND INDICATIONS Indications: Valvular Disease, Pre-Operative Evaluation Heart Failure: None Stress/Imaging Stress/Image Study Performed: No Angina Classification Anginal Classification w/in 2 Weeks: Anginal Equivalent Dyspnea CAD Presentations: Other: dyspnea on exertion CONCLUSIONS [place] Multivessel CAD Aortic Valve Calcification- Severe Mitral Valve Annular Calcification Severe annular calcification RECOMMENDATIONS Risk factor modification Medical therapy Surgery consult for coronary revascularization Surgery consult for valvular disease DESCRIPTION OF PROCEDURE The patient arrived to the procedure lab. The risks and benefits of the procedure as well as a full d escription of our services here and current unavailability of surgical backup were fully explained to the patient and/or their significant other prior to the catheterization. The Timeout was completed, verifying the correct patient and procedure. The patient's procedural site was prepped and draped in the usual fashion. Local anesthetic was given subcutaneously to right groin region with Lidocaine 2%. Using a modified Seldinger technique, arterial access was obtained via the right femoral artery, a 4 Fr sheath was inserted Left Coronary Artery selective angiography was performed in multiple views us ing a 4 Fr. JL5 catheter. Right Coronary Artery selective angiography was then performed in multiple views using a 4 Fr. 3DRC catheter. Ascending (root) aorta selective angiography was then performed in single view. Ascending (root) aorta selective angiography was then performed in single view.The arterial sheath was pulled and manual compression applied until hemostasis is achieved. CORONARY ANGIOGRAPHY DOMINANCE: Co- Dominant LEFT HEART ASSESSMENT Left Ventricular Ejection Fraction: Not assessed LEFT MAIN: Mild calcification LEFT ANTERIOR DESCENDING ARTERY: PROX LAD: Mild calcification, Mild luminal irregularities MID LAD: Mild luminal irregularities CIRCUMFLEX ARTERY: OM 1: Proximal - 50 % Stenosis, Mid - 50 % Stenosis RAMUS: small caliber vessel: proximal: 50 % Stenosis RIGHT CORONARY ARTERY: Mild luminal irregularities MID RCA: long: diffuse: 50 - 75 % Stenosis VALVE FINDINGS: Aortic Valve Calcification - severe Mitral Valve Annular Calcification Severe AORTIC ROOT: Angiographically normal COMPLICATIONS No Complications PROCEDURE MEDICATIONS Versed 1 mg IV Oxygen: 2 L/min via nasal cannula SUMMARY OF HEMODYNAMIC DATA Time AIR REST ECG 09:15:42 AO 97/67 (82) SA 10:52:54 AO 134/65 (91) 11:06:11 RM AIR REST 11:23:18 Signed By Gal Salmeron MD On 05/06/2021 11:35:37 Gal Salmeron MD
== END 2021-05-06 15:35 | disposition home or self-care (01) ==
LOC: CLSP 08:50
PROVIDERS: PCP Internal Medicine; Referring Provider Internal Medicine Cardiovascular Disease; Visit Provider Internal Medicine Cardiovascular Disease
DX: I25.10 Atherosclerotic heart disease of native coronary artery without angina pectoris (principal); I70.0 Atherosclerosis of aorta; I10 Essential (primary) hypertension; N40.0 Benign prostatic hyperplasia without lower urinary tract symptoms; G47.33 Obstructive sleep apnea (adult) (pediatric); I48.21 Permanent atrial fibrillation; E66.9 Obesity, unspecified; Z79.01 Long term (current) use of anticoagulants; Z86.711 Personal history of pulmonary embolism; Z87.891 Personal history of nicotine dependence; Z79.899 Other long term (current) drug therapy; Z68.35 Body mass index [BMI] 35.0-35.9, adult
CPT/HCPCS: 93454; 93567; 99152; 99153; J7040; Q9967; C1769; C1894

== ENCOUNTER 2021-10-13 09:30 | Outpatient (RCR) | payer MEDICARE, OTHER, SELFPAY ==
[2021-09-18 09:30] VITALS: BMI 36.6
== END 2021-10-13 23:59 ==
LOC: CR 09:30
PROVIDERS: PCP Internal Medicine; Referring Provider Internal Medicine Cardiovascular Disease; Visit Provider Internal Medicine Cardiovascular Disease
DX: Z95.2 Presence of prosthetic heart valve (principal)
CPT/HCPCS: 93798

== ENCOUNTER 2021-11-10 09:30 | Outpatient (RCR) | payer MEDICARE, OTHER, SELFPAY ==
[2021-09-18 09:30] VITALS: BMI 36.6
--- NOTE | 2021-10-16 11:04 | CR.ITP_ITS ---
Diagnosis Exercise - 30-day Assessment - Visit Date of Eval: 10/16/21 Session #:: 10 - Physician Prescribed Exercise Modalities: NuStep Frequency: 3x/week for 12 weeks [36 sessions] Intensity: 60-80% of age predicted maximum heart rate reserve Current METSs:: 3 Target Heart Rate:: 120-133 Current RPE:: 13 Maximum Excercise HR:: 82 Resting Blood Pressure: 104/58 Maximum Exercise Blood Pressure: 108/62 EKG Type: A-fib with rare PVC - Outcomes & Goals Goals:: Verbalizes understanding of THR, RPE & goal METS by session 6, Documents in home exercise log/reports 30 min aerobic 5 day/wk by DC, Demonstrates accurate pulse taking by DC, Other additional outcome/goals: see below - Intervention & Plan Exercise Program Goals: Instruct on personal THR & RPE, Instruct on MET level & personal MET goal, Show patient to take own pulse /validate performance until accurate, Instruct on home exercise, Other additional plan/int - 30-day Reassessments 30 day Reassessments:: Progressing - Physical Activity Home Exercise Physical Activity - Home Exercise: Safe Exercise, Warm-up, Self-monitoring, Cool-Down, Home Exercise > 30 min Daily, Sitting Time <3 hours/daily - Outcomes & Goals Outcomes/Goals: Demonstrates correct Warm-up/exercise Cool-Down (S3) if = 2.5 METs, Verbalizes symptoms of exercise intolerance by Session 3 (S3), Demonstrate safe equipment use (S3) & follows exercise prescrition (6), Other: See below - 30-day Reassessments 30 day Reassessments:: Progressing Nutrition - Initial Assessment Nutrition - 30-Day Assessment - Program Goals Nutrition Program Goals: LDL <100 optimal. 100 - 129 Near optimal. 130 - 159 Borderline High. 160 - 189 High. Total Cholesterol <200 desirable. 200 - 239 Borderline High. >/= 240 High. HDL < 40 Low >/=60 High. Triglycerides <150 desirable. <199 optimal. VlDL 5 - 40. HgbA1C <7%. BMI <25 Patient has diagnosis of Hyperlipidemia (ICD E78)?: Yes - Visit Date of Assessment:: 10/16/21 Session #:: 10 - Cholesterol/Lipids Determine presence & major risk factors that modify LDL goal: Cigarette smoking, Hypertension or hypertensive medication, Low HDL cholesterol <40 mg/dL*, Family history of premature CHD in Male < 55 years: female <65 yearsFa, Age men > 45 years; women >/= 55 years Outcomes/Goals: Pt IDs own risk factors & lifestyle modifications by Session 10, Verbalizes symptoms of angina & response by session 3., Pt independently manages, Other Additional Outcomes/Goals: Intervention/Plan: Advocate for lipid panel cholesterol medication if applicable, Instruct on personal lipid levels & lipid goals/NCEP guidelines, Instruct on cholesterol, Other additional plan/int Referral to dietitian:: Yes - medical nutrition therapy 30-day Reassessments:: Progressing - Diabetes (Other Core Measures) Diabetes Type: Not Applicable - Weight Mgt (Other Care) Height: 5 ft 8 in Weight:: 111.357 kg BMI: 37.3 Diagnosis Overweight/Obesity BMI> 30% ICD-10 E66: Yes Diagnosis High BMI/Morbid Obesity BMI> 35% ICD-10 Z68: Yes Outcomes/Goals: Pt sets, maintains & shows weight loss goal & trend during rehab, Other additional outcomes/goals Intervention/Plan: Instruct on ideal BMI & set weight loss goal w/patient, Assist pt to ID & incorporate diet changes for weight loss by S9, Refer to Structured Weight Loss program as appropriate, Encourage goal of using 250- 300dcal per session for weight loss, Other additional plan/interventions 30 day Reassessments:: Progressing - Healthy Eating Habits Will attend diet classes:: Yes Outcomes/Goals:: Consume diet rich in vegs,fruits,whole grain/high fiber,fish,lean meat, Limit sat/trans fats,cholesterol & added salts & sugars, Other additional outcome/goals: Intervention/Plan:: Assess current eating habits, Other Additional plan/interventions 30-day Reassessments:: Progressing - Education Gave educational materials for:: Signs & symptoms of hypoglycemia, Signs & symptoms of hyperglycemia, Relate diabetes to coronary artery disease, Healthy eating Nutrition - 60-Day Assessment Nutrition - 90-Day Assessment Nutrition - Final Assessment Medical - Initial Assessment Medical- 30-Day Assessment - Visit Date of Eval: 10/16/21 Session #:: 10 - Medication Compliance Preventative Medication(s):: Aspirin, PARISA inhibitor, Statin/lipid, Beta brittany, Eliquis H/O mental health issues: depression, anxiety, or addiction?: No Doesn?t believe in the benefits of treatment?: No Believes medications are unnecessary or harmful?: No Has a concern about medication side effects?: No Expresses concern over the cost of medications?: No Outcomes/Goals: Verbalizes medications,desired effect & common side effects @ DC, Pt self-reports following medication regimen, Keeps card in wallet w/medications listed by DC, Other additional outcome/goals: Interventions/plans: Instruct on medication effects & side effects, Review medication list w/patient every two weeks, Instruct importance of taking meds as ordered & assist problem solving, Other additional 30-day Reassessments:: Progressing - Tobacco Use Tobacco Use: Non-smoker - Hypertension Resting Blood Pressure:: 104/58 [employer] [place] [employer] Hypertension Guidelines: [place] [employer] Hypertension Guidelines. Normal BP Less than 120/80. Elevated BP 120/80. Hypertension Stage 1: BP 130-139/80-89. Hypertesnion Stage 2: BP 140 or higher/90 or higher. Hypertension Crisis: BP higher than 180/120 Outcomes/Goals: Able to verbalize/achieve optimal blood pressure <130/80, Incorporates diet changes & exercise for blood pressure control by DC, Other additional outcomes/goals Interventions/plan: Instruct on optimal blood pressure, hypertension & medications, Instruct on effects of sodium, alcohol, stress, exercise &hypertension, Other additional plan/interventions 30 day Reassessments:: Progressing - Tobacco Cessation Referral Smoking Cessation Referral:: No Individual Education/Counseling:: No Education Schedule Given:: Yes Medical- 60-Day Assessment Medical- 90-Day Assessment Medical - Final Assessment Psychosocial - Initial Assess Psychosocial - 30-Day Assess - VIsit Date of Eval: 10/16/21 Session #:: 10 History of previous Mental disease:: No - Outcomes/Goals: See list Psychosocial Outcomes/Goals:: ID's personal stressors & 2 strategies to manage stress by discharge, Other Additional outcome/goals: - Intervention/Plan: See List Interventions/Plan:: Assess stressors,coping strategies & signs of derpression on admission, Instruct/assist pt to develop coping & personal stress Mgt strategies, Refer to Behavioral Health if appropriate, Refer to Physician if appropriate, Instruct patient to recognize signs & symptoms of depression, Instruct patient to recog, Other additional plan/intervention - 30-day Reassessments: 30 day Reassessments:: Progressing Psychosocial - 60-Day Assess Psychosocial - 90-Day Assess Psychosocial - Final Assessmen Patient Health Questionnaire 30-Day Re-eval Assessment 1. Little interest or pleasure in doing things: Not at all 2. Feeling down, depressed, or hopeless: Not at all 3. Trouble falling or staying asleep, or sleeping too much: Not at all 4. Feeling tired or having little energy: Several days 5. Poor appetite or overeating: Not at all 6. Feeling bad about yourself -- or that you are a failure or have let yourself or your family down: Not at all 7. Trouble concentrating on things, such as reading the newspaper or watching television: Not at all 8. Moving or speaking so slowly that other people could have noticed. Or the opposite - being so fidgety or restless that you have been moving around a lot more than usual: Not at all 9. Thoughts that you would be better off , or of hurting yourself in some way: Not at all How difficult have these problems made it for you to do your work, take care of things at home, or get along with other people?: Not difficult at all Total Score: 1 Self-Efficacy 30-Day Re-eval Assessment We would like to know how confident you are in doing certain activities. Please select your confidence level for:: Select your confidence level for the following using the scale 1-10 where 1 is not at all confident and 10 is totally confident. Your score is the average of all 6 responses. Fatigue: How confident are you that you can keep the fatigue caused by your disease from interfering with the things you want to do? Select Number: 5 Physical Discomfort or Pain: How confident are you that you can keep the physical discomfort or pain of your disease from interfering with the things you want to do? Select Number: 5 Emotional Distress: How confident are you that you can keep the emotional distress caused by your disease from interfering with the things you want to do? Select Number: 5 Other Symptoms or Health Problems: How confident are you that you can keep other symptoms or health problems from interfering with the things you want to do? Select Number: 6 Different Tasks and Activities: How confident are you that you can do the different tasks and activities needed to manage your health condition so as to reduce your need to see a doctor? Select Number: 5 Medication: How confident are you that you can do things other than just taking medication to reduce how much your illness affects your everyday life? Select Number: 5 Total Score:: 5 Nutrition Survey
[2021-10-16 11:12] VITALS: BP 104/58; BMI 37.3
== END 2021-11-10 23:59 ==
LOC: CR 09:30
PROVIDERS: PCP Internal Medicine; Referring Provider Internal Medicine Cardiovascular Disease; Visit Provider Internal Medicine Cardiovascular Disease
DX: Z95.2 Presence of prosthetic heart valve (principal)
CPT/HCPCS: 93798

== ENCOUNTER 2021-12-10 09:30 | Outpatient (RCR) | payer MEDICARE, OTHER, SELFPAY ==
[2021-10-16 11:12] VITALS: BMI 37.3
[2021-11-11 00:36] VITALS: BP 104/58
--- NOTE | 2021-11-17 09:04 | PCM.CR.ITP ---
Diagnosis Exercise - 60-day Assessment - Visit Date of Eval: 11/17/21 Session #:: 23 - Physician Prescribed Exercise Modalities: NuStep Frequency: 3x/week for 12 weeks [36 sessions] Intensity: 60-80% of age predicted maximum heart rate reserve Current METSs:: 3.5 Target Heart Rate:: 120-133 Current RPE:: 13 Maximum Excercise HR:: 83 Resting Blood Pressure: 102/48 Maximum Exercise Blood Pressure: 144/62 EKG Type: Atrial fibrillation with occasional PVCs - Outcomes & Goals Goals:: Verbalizes understanding of THR, RPE & goal METS by session 6, Documents in home exercise log/reports 30 min aerobic 5 day/wk by DC, Demonstrates accurate pulse taking by DC - Intervention & Plan Exercise Program Goals: Instruct on personal THR & RPE, Instruct on MET level & personal MET goal, Show patient to take own pulse /validate performance until accurate, Instruct on home exercise - 30-day Reassessments 30 day Reassessments:: Progressing - Physical Activity Home Exercise Physical Activity - Home Exercise: Safe Exercise, Warm-up, Self-monitoring, Cool-Down, Home Exercise > 30 min Daily, Sitting Time <3 hours/daily - Outcomes & Goals Outcomes/Goals: Demonstrates correct Warm-up/exercise Cool-Down (S3) if = 2.5 METs, Verbalizes symptoms of exercise intolerance by Session 3 (S3), Demonstrate safe equipment use (S3) & follows exercise prescrition (6) - Intervention & Plan Plan/Intervention: Instruct warm-up & cool-down if exercising at > 2 METs, Instruct on symptoms of exercise intolerance & actions to take, Instruct & monitor on saf, Assess intial functional capacity & safety risk - 30-day Reassessments 30 day Reassessments:: Progressing Nutrition - Initial Assessment Nutrition - 30-Day Assessment Nutrition - 60-Day Assessment - Program Goals Nutrition Program Goals: LDL <100 optimal. 100 - 129 Near optimal. 130 - 159 Borderline High. 160 - 189 High. Total Cholesterol <200 desirable. 200 - 239 Borderline High. >/= 240 High. HDL < 40 Low >/=60 High. Triglycerides <150 desirable. <199 optimal. VlDL 5 - 40. HgbA1C <7%. BMI <25 Patient has diagnosis of Hyperlipidemia (ICD E78)?: Yes - Visit Date of Assessment:: 11/17/21 Session #:: 23 - Cholesterol/Lipids Triglycerides (mg/dL): 125 Total Cholesterol (mg/dL): 145 LDL Cholesterol (mg/dL): 73 HDL Cholesterol (mg/dL): 47 Determine presence & major risk factors that modify LDL goal: Hypertension or hypertensive medication, Family history of premature CHD in Male < 55 years: female <65 yearsFa, Age men > 45 years; women >/= 55 years Outcomes/Goals: Pt IDs own risk factors & lifestyle modifications by Session 10, Verbalizes symptoms of angina & response by session 3., Pt independently manages Intervention/Plan: Instruct on personal lipid levels & lipid goals/NCEP guidelines, Instruct on cholesterol Referral to dietitian:: Yes 30-day Reassessments:: Progressing - Diabetes (Other Core Measures) Diabetes Type: Not Applicable - Weight Mgt (Other Care) Not Applicable: Yes Height: 5 ft 8 in Weight:: 248 lb BMI: 37.7 Diagnosis Overweight/Obesity BMI> 30% ICD-10 E66: Yes Diagnosis High BMI/Morbid Obesity BMI> 35% ICD-10 Z68: Yes Outcomes/Goals: Pt sets, maintains & shows weight loss goal & trend during rehab Intervention/Plan: Instruct on ideal BMI & set weight loss goal w/patient, Assist pt to ID & incorporate diet changes for weight loss by S9, Encourage goal of using 250-300dcal per session for weight loss 30 day Reassessments:: Not Met - Healthy Eating Habits Will attend diet classes:: Yes Outcomes/Goals:: Consume diet rich in vegs,fruits,whole grain/high fiber,fish,lean meat, Limit sat/trans fats,cholesterol & added salts & sugars Intervention/Plan:: Assess current eating habits 30-day Reassessments:: Not Met Nutrition - 90-Day Assessment Nutrition - Final Assessment Medical - Initial Assessment Medical- 30-Day Assessment Medical- 60-Day Assessment - Visit Date of Eval: 11/17/21 Session #:: 23 - Medication Compliance Preventative Medication(s):: Aspirin, Statin/lipid, Beta brittany H/O mental health issues: depression, anxiety, or addiction?: No Doesn?t believe in the benefits of treatment?: No Believes medications are unnecessary or harmful?: No Has a concern about medication side effects?: No Expresses concern over the cost of medications?: No Outcomes/Goals: Verbalizes medications,desired effect & common side effects @ DC, Pt self-reports following medication regimen, Keeps card in wallet w/medications listed by DC Interventions/plans: Instruct on medication effects & side effects, Review medication list w/patient every two weeks, Instruct importance of taking meds as ordered & assist problem solving 30-day Reassessments:: Progressing - Tobacco Use Tobacco Use: Non-smoker - Hypertension Hypertension Diagnosis:: Hypertension ICD-10 I10 Resting Blood Pressure:: 102/48 [employer] Hypertension Guidelines: [employer] Hypertension Guidelines. Normal BP Less than 120/80. Elevated BP 120/80. Hypertension Stage 1: BP 130-139/80-89. Hypertesnion Stage 2: BP 140 or higher/90 or higher. Hypertension Crisis: BP higher than 180/120 Peak Exercise Blood Pressure:: 144/62 Outcomes/Goals: Able to verbalize/achieve optimal blood pressure <130/80, Incorporates diet changes & exercise for blood pressure control by DC Interventions/plan: Instruct on optimal blood pressure, hypertension & medications, Instruct on effects of sodium, alcohol, stress, exercise &hypertension 30 day Reassessments:: Met - Tobacco Cessation Referral Smoking Cessation Referral:: No Individual Education/Counseling:: No Education Schedule Given:: Yes Medical- 90-Day Assessment Medical - Final Assessment Psychosocial - Initial Assess Psychosocial - 30-Day Assess Psychosocial - 60-Day Assess - VIsit Date of Eval: 11/17/21 Session #:: 23 Not Applicable: Yes History of previous Mental disease:: No - Psychosocial Test Tool Used:: PHQ-9 Questionnaire phq-9 Severity: Severity. 1-4 Minimal Depression. 5-9 Mild Depression. 10-14 Moderate Depression. 15-19 Moderately Sever Depression. 20-27 Severe Depression. Rule: - Referral to Behavioral Health PS - Interventions: Yes Attend Stress Management Classes, No Referral to Behavioral Health if PHQ-9 score >9:, No Referral to [facility], No Referral to Physician if PHQ-9 if score is 5-9: - Outcomes/Goals: See list Psychosocial Outcomes/Goals:: ID's personal stressors & 2 strategies to manage stress by discharge - Intervention/Plan: See List Interventions/Plan:: Assess stressors,coping strategies & signs of derpression on admission, Instruct/assist pt to develop coping & personal stress Mgt strategies, Instruct patient to recognize signs & symptoms of depression, Instruct patient to recog - 30-day Reassessments: 30 day Reassessments:: Progressing Psychosocial - 90-Day Assess Psychosocial - Final Assessmen Patient Health Questionnaire 60-Day Re-eval Assessment 1. Little interest or pleasure in doing things: Not at all 2. Feeling down, depressed, or hopeless: Not at all 3. Trouble falling or staying asleep, or sleeping too much: Several days 4. Feeling tired or having little energy: Not at all 5. Poor appetite or overeating: Not at all 6. Feeling bad about yourself -- or that you are a failure or have let yourself or your family down: Not at all 7. Trouble concentrating on things, such as reading the newspaper or watching television: Not at all 8. Moving or speaking so slowly that other people could have noticed. Or the opposite - being so fidgety or restless that you have been moving around a lot more than usual: Not at all 9. Thoughts that you would be better off , or of hurting yourself in some way: Not at all How difficult have these problems made it for you to do your work, take care of things at home, or get along with other people?: Not difficult at all Total Score: 1 Self-Efficacy Nutrition Survey
[2021-11-17 09:12] VITALS: BP 102/48; BP 144/62; BMI 37.7
== END 2021-12-11 23:59 | disposition home or self-care (01) ==
LOC: CR 09:30
PROVIDERS: PCP Internal Medicine; Referring Provider Internal Medicine Cardiovascular Disease; Visit Provider Internal Medicine Cardiovascular Disease
DX: I10 Essential (primary) hypertension (principal); I48.91 Unspecified atrial fibrillation; E78.5 Hyperlipidemia, unspecified; E66.9 Obesity, unspecified; I49.3 Ventricular premature depolarization; Z68.37 Body mass index [BMI] 37.0-37.9, adult; Z95.2 Presence of prosthetic heart valve
CPT/HCPCS: 93798

== ENCOUNTER 2021-12-17 09:30 | Outpatient (RCR) | payer MEDICARE, OTHER, SELFPAY ==
[2021-11-17 09:12] VITALS: BMI 37.7
[2021-12-12 00:37] VITALS: BP 102/48; BP 144/62
--- NOTE | 2021-12-15 11:57 | CR.ITP_ITS ---
Diagnosis Exercise - 90-day Assessment - Visit Date of Eval: 12/15/21 Session #:: 34 - Physician Prescribed Exercise Modalities: NuStep Frequency: 3x/week for 12 weeks [36 sessions] Intensity: 60-80% of age predicted maximum heart rate reserve Current METSs:: 4 Target Heart Rate:: 120-133 Current RPE:: 13 Maximum Excercise HR:: 85 Resting Blood Pressure: 120/48 Maximum Exercise Blood Pressure: 126/64 EKG Type: a-fib - Outcomes & Goals Goals:: Verbalizes understanding of THR, RPE & goal METS by session 6, Documents in home exercise log/reports 30 min aerobic 5 day/wk by DC, Demonstrates accurate pulse taking by DC, Other additional outcome/goals: see below - Intervention & Plan Exercise Program Goals: Instruct on personal THR & RPE, Instruct on MET level & personal MET goal, Show patient to take own pulse /validate performance until accurate, Instruct on home exercise, Other additional plan/int - 30-day Reassessments 30 day Reassessments:: Progressing - Physical Activity Home Exercise Physical Activity - Home Exercise: Safe Exercise, Warm-up, Self-monitoring, Cool-Down, Home Exercise > 30 min Daily, Sitting Time <3 hours/daily - Outcomes & Goals Outcomes/Goals: Demonstrates correct Warm-up/exercise Cool-Down (S3) if = 2.5 METs, Verbalizes symptoms of exercise intolerance by Session 3 (S3), Demonstrate safe equipment use (S3) & follows exercise prescrition (6), Other: See below - Intervention & Plan Plan/Intervention: Instruct warm-up & cool-down if exercising at > 2 METs, Instruct on symptoms of exercise intolerance & actions to take, Instruct & monitor on saf, Assess intial functional capacity & safety risk, Other See below - 30-day Reassessments 30 day Reassessments:: Progressing Nutrition - Initial Assessment Nutrition - 30-Day Assessment Nutrition - 60-Day Assessment Nutrition - 90-Day Assessment - Program Goals Nutrition Program Goals: LDL <100 optimal. 100 - 129 Near optimal. 130 - 159 Borderline High. 160 - 189 High. Total Cholesterol <200 desirable. 200 - 239 Borderline High. >/= 240 High. HDL < 40 Low >/=60 High. Triglycerides <150 desirable. <199 optimal. VlDL 5 - 40. HgbA1C <7%. BMI <25 Patient has diagnosis of Hyperlipidemia (ICD E78)?: Yes - Visit Date of Assessment:: 12/15/21 - Cholesterol/Lipids Determine presence & major risk factors that modify LDL goal: Hypertension or hypertensive medication, Low HDL cholesterol <40 mg/dL*, Family history of premature CHD in Male < 55 years: female <65 yearsFa, Age men > 45 years; women >/= 55 years Outcomes/Goals: Pt IDs own risk factors & lifestyle modifications by Session 10, Verbalizes symptoms of angina & response by session 3., Pt independently manages, Other Additional Outcomes/Goals: Intervention/Plan: Advocate for lipid panel cholesterol medication if applicable, Instruct on personal lipid levels & lipid goals/NCEP guidelines, Instruct on cholesterol, Other additional plan/int Referral to dietitian:: No - pt declines 30-day Reassessments:: Progressing - Weight Mgt (Other Care) Height: 5 ft 8 in Weight:: 110.903 kg BMI: 37.1 Diagnosis Overweight/Obesity BMI> 30% ICD-10 E66: Yes Diagnosis High BMI/Morbid Obesity BMI> 35% ICD-10 Z68: Yes Outcomes/Goals: Pt sets, maintains & shows weight loss goal & trend during rehab, Other additional outcomes/goals Intervention/Plan: Instruct on ideal BMI & set weight loss goal w/patient, Assist pt to ID & incorporate diet changes for weight loss by S9, Refer to Structured Weight Loss program as appropriate, Encourage goal of using 250- 300dcal per session for weight loss, Other additional plan/interventions 30 day Reassessments:: Progressing - Healthy Eating Habits Will attend diet classes:: Yes Outcomes/Goals:: Consume diet rich in vegs,fruits,whole grain/high fiber,fish,lean meat, Limit sat/trans fats,cholesterol & added salts & sugars, Other additional outcome/goals: Intervention/Plan:: Assess current eating habits, Other Additional plan/interventions 30-day Reassessments:: Progressing - Education Gave educational materials for:: Signs & symptoms of hypoglycemia, Signs & symptoms of hyperglycemia, Relate diabetes to coronary artery disease Nutrition - Final Assessment Medical - Initial Assessment Medical- 30-Day Assessment Medical- 60-Day Assessment Medical- 90-Day Assessment - Visit Date of Eval: 12/15/21 Session #:: 34 - Medication Compliance Preventative Medication(s):: Aspirin, PARISA inhibitor, Statin/lipid, Beta brittany, Eliquis Doesn?t believe in the benefits of treatment?: No Has a concern about medication side effects?: No Expresses concern over the cost of medications?: No Outcomes/Goals: Verbalizes medications,desired effect & common side effects @ DC, Pt self-reports following medication regimen, Keeps card in wallet w/medications listed by DC, Other additional outcome/goals: Interventions/plans: Instruct on medication effects & side effects, Review medication list w/patient every two weeks, Instruct importance of taking meds as ordered & assist problem solving, Other additional 30-day Reassessments:: Progressing - Tobacco Use Tobacco Use: Non-smoker - Hypertension Resting Blood Pressure:: 120/48 [place] [employer] Hypertension Guidelines: [place] [employer] Hypertension Guidelines. Normal BP Less than 120/80. Elevated BP 120/80. Hypertension Stage 1: BP 130-139/80-89. Hypertesnion Stage 2: BP 140 or higher/90 or higher. Hypertension Crisis: BP higher than 180/120 Peak Exercise Blood Pressure:: 126/64 Outcomes/Goals: Able to verbalize/achieve optimal blood pressure <130/80, Incorporates diet changes & exercise for blood pressure control by DC, Other additional outcomes/goals Interventions/plan: Instruct on optimal blood pressure, hypertension & medications, Instruct on effects of sodium, alcohol, stress, exercise &hypertension, Other additional plan/interventions 30 day Reassessments:: Progressing - Tobacco Cessation Referral Smoking Cessation Referral:: No Individual Education/Counseling:: No Education Schedule Given:: Yes Medical - Final Assessment Psychosocial - Initial Assess Psychosocial - 30-Day Assess Psychosocial - 60-Day Assess Psychosocial - 90-Day Assess - VIsit Date of Eval: 12/15/21 Session #:: 34 - Outcomes/Goals: See list Psychosocial Outcomes/Goals:: ID's personal stressors & 2 strategies to manage stress by discharge, Other Additional outcome/goals: - 30-day Reassessments: 30 day Reassessments:: Progressing Psychosocial - Final Assessmen Patient Health Questionnaire 90-Day Re-eval Assessment 1. Little interest or pleasure in doing things: Not at all 2. Feeling down, depressed, or hopeless: Not at all 3. Trouble falling or staying asleep, or sleeping too much: Not at all 4. Feeling tired or having little energy: Several days 5. Poor appetite or overeating: Not at all 6. Feeling bad about yourself -- or that you are a failure or have let yourself or your family down: Not at all 7. Trouble concentrating on things, such as reading the newspaper or watching television: Not at all 8. Moving or speaking so slowly that other people could have noticed. Or the opposite - being so fidgety or restless that you have been moving around a lot more than usual: Not at all 9. Thoughts that you would be better off , or of hurting yourself in some way: Not at all How difficult have these problems made it for you to do your work, take care of things at home, or get along with other people?: Not difficult at all Total Score: 1 Self-Efficacy 90-Day Re-eval Assessment We would like to know how confident you are in doing certain activities. Please select your confidence level for:: Select your confidence level for the following using the scale 1-10 where 1 is not at all confident and 10 is totally confident. Your score is the average of all 6 responses. Fatigue: How confident are you that you can keep the fatigue caused by your disease from interfering with the things you want to do? Select Number: 5 Physical Discomfort or Pain: How confident are you that you can keep the physical discomfort or pain of your disease from interfering with the things you want to do? Select Number: 5 Emotional Distress: How confident are you that you can keep the emotional distress caused by your disease from interfering with the things you want to do? Select Number: 5 Other Symptoms or Health Problems: How confident are you that you can keep other symptoms or health problems from interfering with the things you want to do? Select Number: 6 Different Tasks and Activities: How confident are you that you can do the different tasks and activities needed to manage your health condition so as to reduce your need to see a doctor? Select Number: 5 Medication: How confident are you that you can do things other than just taking medication to reduce how much your illness affects your everyday life? Select Number: 5 Total Score:: 5 Nutrition Survey
[2021-12-15 12:04] VITALS: BP 120/48; BP 126/64; BMI 37.1
== END 2022-01-10 23:59 ==
LOC: CR 09:30
PROVIDERS: PCP Internal Medicine; Referring Provider Internal Medicine Cardiovascular Disease; Visit Provider Internal Medicine Cardiovascular Disease
DX: Z95.2 Presence of prosthetic heart valve (principal)
CPT/HCPCS: 93798

== ENCOUNTER 2021-12-29 09:16 | Outpatient (CLI) | payer MEDICARE, OTHER, SELFPAY ==
[2021-12-15 12:04] VITALS: BMI 37.1
--- NOTE | 2021-12-29 13:59 | PFT ---
INTRODUCTION: The patient is a 76-year-old male that presents for pulmonary function studies secondary to a diagnosis of dyspnea on exertion. Respiratory therapy reported good patient effort. Bronchodilators were used during testing. INTERPRETATION: Forced expiration spirometry demonstrates no evidence of a large airways obstructive ventilatory defect. There was no significant response to aerosolized bronchodilators. Spirograms are of good quality and plateau normally. Body plethysmography was performed and revealed a decreased TLC to 4.7 L, 79% of predicted, indicative of a mild restrictive ventilatory impairment. Diffusing capacity by single breath CO is reduced at 60% of predicted. When compared to prior pulmonary function studies from January 2021, there has been improvement in the patient's total lung capacity and diffusion capacity. 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 There has been improvement in the patient's PFT since January 2021, as noted above.
== END 2021-12-29 23:59 | disposition home or self-care (01) ==
LOC: PSN 09:18
PROVIDERS: PCP Internal Medicine; Referring Provider Internal Medicine Critical Care Medicine; Visit Provider Internal Medicine Critical Care Medicine
DX: R06.00 Dyspnea, unspecified (principal); Z95.2 Presence of prosthetic heart valve
CPT/HCPCS: 94060; 94726; 94729

== ENCOUNTER 2022-01-01 12:15 | Outpatient (CLI) | payer MEDICARE, OTHER, SELFPAY ==
[2021-12-15 12:04] VITALS: BMI 37.1
[2022-01-01 12:40] VITALS: PULSE 102; PULSE 69; PULSE 73; PULSE 86; PULSE 93; O2SAT 91; O2SAT 96; O2SAT 97; O2SAT 98
--- NOTE | 2022-01-01 12:42 | CPS ---
Patient wears 2 lpm at home at night. Patient also monitors SpO2 during the day. Walking done on room air. At 3 minutes and 15 seconds patient wanted to stop walking and stated that he did not want to do anymore. Patient said he was only slightly to moderately short of breath but that his knees were hurting severely and his hip was starting to hurt as well.
--- NOTE | 2022-01-02 08:43 | PCM.PSN.6M ---
PSN 6 Minute Walk Test 6 Minute Walk Test 6 Minute Walk Test: 6 Minute Walk Test PSN:6-Minute Walk Test Start: 01/01/22 12:40 Freq: Status: Active Protocol: RESP.6MINW Document 01/01/22 12:40 LOBO (Rec: 01/01/22 12:45 LOBO [id number]) 6 Minute Walk Test Date Performed 01/01/22 Time Performed 12:30 Height 5 ft 7 in Weight: 110.677 kg Weight in Pounds 244.[address]: Bran Russell Assistive device used: None Pre-test Oxygen Delivery Method Room Air Pulse Ox (%) 96 Pulse Rate (60-100 beats/min) 73 Dyspnea Terrell Scale (0-10) 0 Exertion Terrell Scale (6-20) 6 1st minute Oxygen Delivery Method Room Air Pulse Ox (%) 98 Pulse Rate (60-100 beats/min) 86 2nd minute Oxygen Delivery Method Room Air Pulse Ox (%) 91 Pulse Rate (60-100 beats/min) 102 H 3rd minute Oxygen Delivery Method Room Air Pulse Ox (%) 91 Pulse Rate (60-100 beats/min) 93 Dyspnea Terrell Scale (0-10) 3 Exertion Terrell Scale (6-20) 15 Number of Rests Taken 1 Post-test Oxygen Delivery Method Room Air Pulse Ox (%) 97 Pulse Rate (60-100 beats/min) 69 Full Laps Walked 6 Partial Lap, Number of Tiles Walked 0 Total Distance Walked (ft) 354 01/01/22 12:42 Cardiopulmonary Services by Domi Gao Patient wears 2 lpm at home at night. Patient also monitors SpO2 during the day. Walking done on room air. At 3 minutes and 15 seconds patient wanted to stop walking and stated that he did not want to do anymore. Patient said he was only slightly to moderately short of breath but that his knees were hurting severely and his hip was starting to hurt as well. Initialized on 01/01/22 12:42 - END OF NOTE Interpretation Interpretation: The patient ambulated 354 feet over the course of 3 minutes beginning on room air without assistive devices. Pretesting oxygen saturation was noted to be 96% on room air. With ambulation, the nany oxygen saturation was 91%. The test was terminated at minute 3 due to patient request secondary to knee and hip pain. Although limited, this testing did indicate the presence of significant exertional oxygen desaturation. Recommendations Recommendations: There is no indication for the use of supplemental oxygen at this time. However, close interval follow-up is recommended, given the degree of oxygen desaturation noted during this limited study.
== END 2022-01-01 23:59 | disposition home or self-care (01) ==
LOC: PSN 12:16
PROVIDERS: PCP Internal Medicine; Referring Provider Internal Medicine Critical Care Medicine; Visit Provider Internal Medicine Critical Care Medicine
DX: R06.00 Dyspnea, unspecified (principal); Z95.2 Presence of prosthetic heart valve
CPT/HCPCS: 94618

== ENCOUNTER 2022-05-06 08:21 | Day surgery (SDC) | payer MEDICARE, OTHER, SELFPAY ==
[2021-12-15 12:04] VITALS: BMI 37.1
[2022-05-06] VITALS (7 sets, daily range): BP systolic 100–137; BP diastolic 59–68; PULSE 68–88; RESP 16–20; TEMP 36.6–36.7; O2SAT 94–96; BMI 35.5
--- NOTE | 2022-05-06 08:52 | HP.PCM_ITS ---
History and Physical Date of Admission: 05/06/22 Date of Service:? 04/06/22 MR#: [id number] Acct: [id number] Name:CARLIE GUERRERO Rep #: [id number] : 1945 ? ? Provider: Dr. Abida Sanchez MD Age/Sex:? 76/M ? ? Location: [facility] Status: Signed Intake Vital Signs ? 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 Is patient in pain?: No Allergies lisinopril Adverse Reaction (Intermediate, Verified 04/06/22 13:18) cough Medications finasteride 5 mg tablet 5 mg PO DAILY prostate 09/24/15 [History Confirmed 04/06/22] tamsulosin 0.4 mg capsule (Flomax) 0.8 mg PO DAILY prostate 02/28/18 [History Confirmed 04/06/22] Disability Placard #1 ea 01/01/21 [Rx Confirmed 04/06/22] aspirin 81 mg capsule 81 mg PO DAILY 05/06/21 [History Confirmed 04/06/22] apixaban 5 mg tablet 5 mg PO BID blood thinner #180 tabs 08/14/21 [Rx Confirmed 04/06/22] diltiazem HCl 120 mg tablet 120 mg PO BID 90 days #180 tabs 08/22/21 [Rx Confirmed 04/06/22] furosemide 40 mg tablet 40 mg PO BID fluid #180 tabs 08/22/21 [Rx Confirmed 04/06/22] metoprolol tartrate 50 mg tablet 75 mg PO BID bp 90 days #135 tabs 08/22/21 [Rx Confirmed 04/06/22] potassium chloride 20 mEq tablet,extended release(part/cryst) (Klor-Con M) 20 meq PO BID #180 tabs 08/22/21 [Rx Confirmed 04/06/22] diclofenac sodium 20 mg/gram/actuation (2 %) topical soln metered-dose pump (Pennsaid) 2 pump topical BID #112 grams 01/05/22 [Rx Confirmed 04/06/22] PFSH Medical History?(Updated 04/06/22 @ 13:[address] Abida Sanchez MD) Atherosclerotic heart disease of [place] coronary artery without angina pectoris Atrial fibrillation Bilateral pulmonary embolism BPH (benign prostatic hyperplasia) COVID-19 (~09/2020) Dyspnea on exertion Emphysema of lung Fever History of left heart catheterization (LHC) (~05/06/21) History of transcatheter aortic valve replacement (TAVR) (~07/10/21) Hyperlipidemia Hypertension Left-sided weakness Non-rheumatic mitral valve stenosis Nonrheumatic aortic (valve) stenosis Nonrheumatic tricuspid (valve) insufficiency NOAM (obstructive sleep apnea) Other secondary pulmonary hypertension Persistent atrial fibrillation Solitary pulmonary nodule Stage 1 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 Surgical History?(Updated 04/06/22 @ 13:09 by Judy Tracy) H/O oral surgery History of colonoscopy (~2010) History of left cataract surgery Family History? Mother CVA (cerebral vascular accident) DiabetesOther Family history of CVA Social History? Smoking Status:? Former smoker quit date: 09/13/11 pack-years: 80 Tobacco: How many years used:? 40 how long ago did patient quit smoking:? 2010 second hand exposure:? No alcohol intake:? never substance use type:? does not use caffeine:? Yes Type: tea what type of physical activity do you participate in:? none seatbelt use:? always do you feel safe at home:? Yes HPI HPI Surgical H&P: Yes HPI: CARLIE DEGROOT, is a 76 M who presents to the office today for Cologuard.? This test was from April 2020 patient spent while in the hospital in 2020 with COVID and he also had a TEVAR in June 2021.? Patient states his last colonoscopy was in 2010 and he had multiple polyps that have to go back for flexible sigmoidoscopy for additional polyps removal.? Patient states he has bowel movements daily but does feel like he is constipated and may be small and hard.? Patient does take stool softeners twice daily currently does not take any laxatives.? Patient denies any family history of colon cancer.? Patient denies any chronic abdominal pain/nausea/vomiting.? He does state more recently he does maybe have some increased belching but it is not daily. Exam Const General: cooperative, healthy appearing and no acute distress HENMT Head: normal to inspection Resp Effort & Inspection: normal respiratory effort Cardio Rate: regular rate GI Inspection: non-distended Palpation: soft, no guarding, no hernias and nontender Skin General: no rashes or lesions noted Neuro General: patient oriented x3 Extrem General: no clubbing, cyanosis or edema Psych Affect: normal affect Assessment and Plan Assessment and Plan (1) Positive colorectal cancer screening using Cologuard test: ?Status:?Acute (2) Persistent atrial fibrillation: ?Status:?Chronic (3) Anticoagulant long-term use: ?Status:?Acute Plan Okay to continue aspirin.? We will have patient stop Eliquis 3 days prior to procedure.? Discussed with patient I would not recommend him to get the Cologuard in the future if he had definite polyps he would be consider high risk compared to the normal screening and that is not an indication for Cologuard testing Patient is unsure about the amount of fiber he gets daily.? Did discuss with him and his the importance of high-fiber diet as long with adequate hydration.? Did give him a sheet listing high-fiber foods. I have discussed the above with the patient. I have offered the patient colonoscopy for evaluation. I have explained the risks/benefits of the procedure and described the procedure.? I have discussed the risks with the patient, including but not limited to:? infection, bleeding, perforation of the GI tract requiring emergency surgery, inability to complete the procedure, injury to any internal organs, complications of anesthesia, etc. - the patient understands and agrees to proceed. I have answered all the patient's questions to the patient's satisfaction and the patient has no further questions. The patient has been given instructions for the colon cleansing preparation.? 1 day of clears, MiraLAX Dulcolax split prep. Abida Sanchez M.D. Pager: [phone] [facility] [address] [place] [address], [facility], [address] [place] [address] Office: [phone] Coding Level of Care Code Off vis,new,level 3 Diagnoses Positive colorectal cancer screening using Cologuard test? R19.5 Persistent atrial fibrillation? I48.1 Anticoagulant long-term use? Z79.01 04/06/22 1353 <Electronically signed by Abida Sanchez MD> Date Abida Sanchez MD
[2022-05-06] MEDS: Lactated Ringers 1,000 ML 15 ML IV (09:12)
--- NOTE | 2022-05-06 09:45 | COLBX_PTH ---
PATIENT: CARLIE DEGROOT LOC: EN U#:[id number] AGE/SX: 76/M ROOM: RE05/06/[address]: Dr. Abida Sanchez MD : 1945 BED: DIS: 05/06/2022 SPEC #: [id number] RECD: 05/06/22 12:53 STATUS: ETTA REDarrell #: [id number] DOT: 05/06/22 09:[address]: Abida Sanchez DEPT: SURGICAL PATHOLOGY RECD BY: Pauline Stubbs ENTERED: 05/07/22 08:21 SP TYPE: COLON BX OT DR: Dr. Tomy Hernandez MD Tissues: A - Ascending colon B - COLON BIOPSY C - Descending colon D - Sigmoid colon biopsy E - Rectum, NOS Procedures: Surgery Specimen Level IV HEADER OPERATION: Colonoscopy (MAC) PRE-OP DIAGNOSIS: Positive Cologuard test TISSUE SUBMITTED: A ? Ascending colon polyps, B ? Hepatic flexure polyp, C ? Descending polyp, D ? Sigmoid polyp at 33 cm, E ? Rectal polyps MICROSCOPIC DIAGNOSIS A. Ascending colon polyps, biopsy: Fragments of tubular adenoma. B. Hepatic flexure polyp, biopsy: Fragments of tubular adenoma. C. Descending colon polyp, biopsy: Tubular adenoma. D. Sigmoid polyp at 33 cm, polypectomy: Tubulovillous adenoma. E. Rectal polyps, biopsy: Tubular adenoma. Fragments of hyperplastic polyp. SJ:otilio 05/08/2022 MICROSCOPIC DESCRIPTION Slides are reviewed. GROSS DESCRIPTION A - Received in fixative is one container labeled with the patient's name and designated ascending colon polyp. The specimen consists of multiple irregular fragments of grove soft tissue mixed with fecal material that in aggregate measure 3 x 1 x 0.2 cm. The specimen is totally submitted in one cassette. B - Received in fixative is one container labeled with the patient's name and designated hepatic flexure polyp. The specimen consists of multiple irregular fragments of grove soft tissue mixed with fecal material that in aggregate measure 2.5 x 0.5 x 0.3 cm. The specimen is totally submitted in one cassette. C - Received in fixative is one container labeled with the patient's name and designated descending polyp. The specimen consists of one irregular fragment of light grove soft tissue that measures 0.3 x 0.3 x 0.1 cm. The specimen is totally submitted in one cassette. D - Received in fixative is one container labeled with the patient's name and designated sigmoid polyp at 33 cm. The specimen consists of a pink-red polyp measuring 1.5 x 1.5 x 1 cm. The apparent base is inked. The polyp is serially sectioned and submitted entirely in one cassette. E - Received in fixative is one container labeled with the patient's name and designated rectal polyps. The specimen consists of multiple polypoid fragments of grove-pink soft tissue mixed with fecal material that in aggregate measure 2.5 x 1.5 x 0.4 cm. The specimen is totally submitted in one cassette. / SJ:rg 05/07/2022 TC:1 CPT: 78681 x5
--- NOTE | 2022-05-06 11:45 | OP.COLON_ITS ---
Patient Name: Javier Marrero Procedure Date: 05/06/2022 10:07 AM Date of : 1945 Age: 76 Procedure: Colonoscopy Indications: Positive Cologuard test Providers: Abida Sanchez MD Medicines: Monitored Anesthesia Care Patient Profile: This is a 76 year old male. Last Colonoscopy: 10 years ago. Complications: No immediate complications. Procedure: Pre-Anesthesia Assessment: - Prior to the procedure, a History and Physical was performed, and patient medications and allergies were reviewed. The patient's tolerance of previous anesthesia was also reviewed. The risks and benefits of the procedure and the sedation options and risks were discussed with the patient. All questions were answered, and informed consent was obtained. Prior Anticoagulants: The patient has taken Eliquis (apixaban), last dose was 3 days prior to procedure. ASA Grade Assessment: Per anesthesia. After reviewing the risks and benefits, the patient was deemed in satisfactory condition to undergo the procedure. After I obtained informed consent, the scope was passed under direct vision. Throughout the procedure, the patient's blood pressure, pulse, and oxygen saturations were monitored continuously. The pediatric colonoscope was introduced through the anus and advanced to the cecum, identified by the appendiceal orifice, ileocecal valve and palpation. The colonoscopy was performed without difficulty. The patient tolerated the procedure well. The quality of the bowel preparation was good. Scope In: 10:17:52 AM Scope Withdrawal Time 1 hour 3 minutes 7 seconds Scope Out: 11:31:02 AM Total Procedure Duration Time 1 hour 13 minutes 10 seconds Findings: The perianal and digital rectal examinations were normal. Many semi-sessile polyps were found in the rectum, descending colon, hepatic flexure and ascending colon. The polyps were 3 to 5 mm in size, 4 in ascending, 10+ in rectum, 3 at hepatic. All the rectal polyps were unable to be removed at this time due to numerous polyps- will schedule repeat colonoscopy for further removal. These polyps were removed with a hot snare. Resection and retrieval were complete. A 6 mm polyp was found in the ascending colon. The polyp was semi-sessile. The polyp was removed with a piecemeal technique using a hot snare. Resection and retrieval were complete. A 9 mm polyp was found in the sigmoid colon at 33 cm. The polyp was pedunculated. The polyp was removed with a hot snare. Resection and retrieval were complete. Many small-mouthed diverticula were found in the sigmoid colon. Impression: - Many 3 to 5 mm polyps in the rectum, in the descending colon, at the hepatic flexure and in the ascending colon, removed with a hot snare. Resected and retrieved. - One 6 mm polyp in the ascending colon, removed piecemeal using a hot snare. Resected and retrieved. - One 9 mm polyp in the sigmoid colon, removed with a hot snare. Resected and retrieved. - Diverticulosis in the sigmoid colon. Recommendation: - Await pathology results. - Repeat colonoscopy 6 month for surveillance after piecemeal polypectomy. - Resume Eliquis (apixaban) at prior dose tonight. Procedure Code(s): --- Professional --- 27464, Colonoscopy, flexible; with removal of tumor(s), polyp(s), or other lesion(s) by snare technique Diagnosis Code(s): --- Professional --- K62.1, Rectal polyp D12.4, Benign neoplasm of descending colon D12.3, Benign neoplasm of transverse colon (hepatic flexure or splenic flexure) D12.2, Benign neoplasm of ascending colon D12.5, Benign neoplasm of sigmoid colon R19.5, Other fecal abnormalities CPT copyright 2017 [employer]. All rights reserved. The codes documented in this report are preliminary and upon fiberglass finisher review may be revised to meet current compliance requirements. MD Abida Mitchell MD 05/06/2022 11:45:34 AM This report has been signed electronically. Number of Addenda: 0 Note Initiated On: 05/06/2022 10:07 AM
--- NOTE | 2022-05-06 11:46 | OP.CCLET_ITS ---
05/06/2022 Tomy Hernandez [address] [place] [address] Re : Colonoscopy procedure for Javier Marrero Dear Dr. Hernandez This procedure was performed on Friday, May 06, 2022. My impressions and recommendations are as follows: Impressions : - Many 3 to 5 mm polyps in the rectum, in the descending colon, at the hepatic flexure and in the ascending colon, removed with a hot snare. Resected and retrieved. - One 6 mm polyp in the ascending colon, removed piecemeal using a hot snare. Resected and retrieved. - One 9 mm polyp in the sigmoid colon, removed with a hot snare. Resected and retrieved. - Diverticulosis in the sigmoid colon. Recommendations : - Await pathology results. - Repeat colonoscopy 6 month for surveillance after piecemeal polypectomy. - Resume Eliquis (apixaban) at prior dose tonight. My findings are described in the full procedure note, which is enclosed. If I can be of further assistance, please feel free to contact me at Doctor phone number(s): , Work: . Sincerely, MD Abida Mitchell MD 05/06/2022 11:45:34 AM This report has been signed electronically.
== END 2022-05-06 12:12 | disposition home or self-care (01) ==
LOC: EN 08:22 → AC 08:25
PROVIDERS: PCP Internal Medicine; Referring Provider Internal Medicine; Visit Provider Surgery
PROC: 0DJD8ZZ Inspection of Lower Intestinal Tract, Via Natural or Artificial Opening Endoscopic (ICD-10-PCS; CPT 45378; principal; 2022-05-06 09:40)
DX: D12.5 Benign neoplasm of sigmoid colon (principal); I48.19 Other persistent atrial fibrillation; D12.4 Benign neoplasm of descending colon; D12.3 Benign neoplasm of transverse colon; D12.2 Benign neoplasm of ascending colon; D12.8 Benign neoplasm of rectum; K57.30 Diverticulosis of large intestine without perforation or abscess without bleeding; I25.10 Atherosclerotic heart disease of native coronary artery without angina pectoris; E78.5 Hyperlipidemia, unspecified; I10 Essential (primary) hypertension; N40.0 Benign prostatic hyperplasia without lower urinary tract symptoms; G47.33 Obstructive sleep apnea (adult) (pediatric); Z99.81 Dependence on supplemental oxygen; Z86.16 Personal history of COVID-19; Z87.891 Personal history of nicotine dependence; Z79.01 Long term (current) use of anticoagulants; Z79.82 Long term (current) use of aspirin; Z79.899 Other long term (current) drug therapy; Z86.010 Personal history of colon polyps; Z95.2 Presence of prosthetic heart valve; Z86.73 Personal history of transient ischemic attack (TIA), and cerebral infarction without residual deficits
CPT/HCPCS: 45385; 88305; J7120; J2405

== ENCOUNTER → 2022-06-30 | Outpatient (CLI) | payer MEDICARE, OTHER, SELFPAY ==
[2021-12-15 12:04] VITALS: BMI 37.1
[2022-06-30 08:35] LABS: Anion Gap 8 (5-15); BUN 23 mg/dL (7-18); BUN/Creat Ratio 16.7 RATIO (10-20); Calcium,Total 9.6 mg/dL (8.5-10.1); Chloride 107 mmol/L (98-107); Creatinine, Serum 1.38 mg/dL (0.70-1.30); EST Glomerular Filtration Rate 53 mL/min (>60); Est Glom Filt Rate - Afr Amer 64 mL/min (>60); Glucose 125 mg/dL (74-106); Potassium 4.4 mmol/L (3.5-5.1); Sodium Level 140 mmol/L (136-145)
== END | disposition home or self-care (01) ==
LOC: LAB 07:11
PROVIDERS: PCP Internal Medicine; Referring Provider Nurse Practitioner Gerontology; Visit Provider Nurse Practitioner Gerontology
DX: R60.0 Localized edema (principal)
CPT/HCPCS: 36415; 80048

== ENCOUNTER → 2022-07-16 | Outpatient (CLI) | payer MEDICARE, OTHER, SELFPAY ==
[2021-12-15 12:04] VITALS: BMI 37.1
[2022-07-16 09:58] LABS: Anion Gap 5 (5-15); BUN 24 mg/dL (7-18); BUN/Creat Ratio 17.9 RATIO (10-20); Calcium,Total 9.5 mg/dL (8.5-10.1); Chloride 107 mmol/L (98-107); Creatinine, Serum 1.34 mg/dL (0.70-1.30); EST Glomerular Filtration Rate 55 mL/min (>60); Est Glom Filt Rate - Afr Amer 66 mL/min (>60); Glucose 129 mg/dL (74-106); Potassium 4.1 mmol/L (3.5-5.1); Sodium Level 139 mmol/L (136-145)
== END | disposition home or self-care (01) ==
LOC: LAB 08:55
PROVIDERS: PCP Internal Medicine; Referring Provider Nurse Practitioner Gerontology; Visit Provider Nurse Practitioner Gerontology
DX: I10 Essential (primary) hypertension (principal)
CPT/HCPCS: 36415; 80048

== ENCOUNTER 2022-12-02 06:41 | Day surgery (SDC) | payer MEDICARE, OTHER, SELFPAY ==
[2021-12-15 12:04] VITALS: BMI 37.1
[2022-12-02] VITALS (7 sets, daily range): BP systolic 101–127; BP diastolic 44–72; PULSE 58–71; RESP 16–18; TEMP 36.4–37.2; O2SAT 91–96; BMI 38.0
[2022-12-02] MEDS: Lactated Ringers 1,000 ML 15 ML IV (07:07)
--- NOTE | 2022-12-02 07:47 | HP.PCM_ITS ---
History and Physical Date of Admission: 12/02/22 Date of Service:? 10/30/22 MR#: [id number] Acct: [id number] Name:CARLIE GUERRERO Rep #: [id number] : 1945 ? ? Provider: Dr. Abida Sanchez MD Age/Sex:? 77/M ? ? Location: [facility] Status: Signed Intake Vital Signs ? 10/30/2312:35 Height 5 ft 7 in Weight: 245 lb BMI 38.3 BP 155/72 H Blood Pressure Location Rt brachial Position Sitting Respiration 17 Pulse 69 Pulse Source Monitor Temp 97.9 F Temp Source Temporal Pulse Oximetry (%) 93 Oxygen Delivery Method room air Intake Visit Reasons:?6 MONTH RECALL C-Scope Chief Complaint: 6 month recall colonoscopy Ui Lead Developer Required: No Is patient in pain?: No Allergies lisinopril Adverse Reaction (Intermediate, Verified 10/30/22 13:37) cough Medications finasteride 5 mg tablet 5 mg PO DAILY prostate 09/24/15 [History Confirmed 10/30/22] tamsulosin 0.4 mg capsule (Flomax) 0.8 mg PO DAILY prostate 02/28/18 [History Confirmed 10/30/22] Disability Placard #1 ea 01/01/21 [Rx Confirmed 10/30/22] aspirin 81 mg capsule 81 mg PO DAILY 05/06/21 [History Confirmed 10/30/22] cartilage 40 mg-collagen 12 mg-hyaluronic ac 3.3 mg-vit C 30 mg tablet 2 tab PO DAILY 08/20/22 [History Confirmed 10/30/22] apixaban 5 mg tablet 5 mg PO BID blood thinner #180 tabs 10/01/22 [Rx Confirmed 10/30/22] atorvastatin 10 mg tablet 10 mg PO QDAY #90 tabs 10/01/22 [Rx Confirmed 10/30/22] diltiazem HCl 120 mg tablet 120 mg PO BID 90 days #180 tabs 10/01/22 [Rx Confirmed 10/30/22] furosemide 40 mg tablet 40 mg PO DAILY fluid #90 tabs 10/01/22 [Rx Confirmed 10/30/22] metoprolol tartrate 75 mg tablet 75 mg PO BID #180 tabs 10/01/22 [Rx Confirmed 10/30/22] potassium chloride 20 mEq tablet,extended release(part/cryst) (Klor-Con M) 20 meq PO DAILY #90 tabs 10/01/22 [Rx Confirmed 10/30/22] PFSH Medical History? Abrasion Arthritis Atherosclerotic heart disease of [place] coronary artery without angina pectoris Atrial fibrillation Bilateral pulmonary embolism BPH (benign prostatic hyperplasia) Cardiology follow-up encounter COPD (chronic obstructive pulmonary disease) COVID-19 (~09/2020) Dyspnea on exertion Easy bruising Emphysema of lung Excessive bleeding Fever Former smoker History of atrial fibrillation History of CHF (congestive heart failure) History of echocardiogram History of edema History of left heart catheterization (LHC) (~05/06/21) History of transcatheter aortic valve replacement (TAVR) (~07/10/21) Hyperlipidemia Hypertension Left-sided weakness Non-rheumatic mitral valve stenosis Nonrheumatic aortic (valve) stenosis Nonrheumatic tricuspid (valve) insufficiency On home oxygen therapy NOAM (obstructive sleep apnea) Other secondary pulmonary hypertension Persistent atrial fibrillation Pulmonary embolism Solitary pulmonary nodule Stage 1 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 Wears dentures Wears glasses Wears hearing aid Surgical History? H/O oral surgery History of colonoscopy (~2010) History of left cataract surgery Family History? Mother CVA (cerebral vascular accident) DiabetesOther Family history of CVA Social History? Smoking Status:? Former smoker quit date: 09/13/11 pack-years: 80 Tobacco: How many years used:? 40 how long ago did patient quit smoking:? 2010 second hand exposure:? No alcohol intake:? never substance use type:? does not use caffeine:? Yes Type: tea what type of physical activity do you participate in:? none seatbelt use:? always do you feel safe at home:? Yes HPI HPI HPI: 77-year-old male presents for follow-up colonoscopy due to multiple polyps and piecemeal removal of tubular adenoma 6 months prior?April 2022.? Patient also did have a tubulovillous adenoma which was completely removed there is almost a centimeter in size.? Patient states he has bowel movements mostly daily; sometimes they are harder but he does take stool softeners, but does not drink enough water.? Patient denies any chronic abdominal pain or blood in stool. ROS General General: Yes weight change and fatigue; No appetite, colon cancer, breast cancer or weakness HEENT HEENT: No difficulty swallowing, eye injury, eye surgery, swollen glands or hoarseness Endo Endocrine: No thyroid disease, diabetes mellitus, thyroid cancer, Hair loss, heat intolerance or cold intolerance Skin Skin: No rash or changing moles Musc Musculoskeletal: Yes arthritis and rheumatoid arthritis; No back problems, gout or joint pain Cardio Cardiovascular: Yes murmur, heart disease, atrial fibrillation, high blood pressure and heart stent; No pacemaker, heart attack, palpitations, shortness of breat with exertion or chest pain Psych Psychiatric: Yes anxiety; No depression or hearing voices Resp Respiratory: Yes shortness of breath, Yes sleep apnea, No cough, Yes COPD, No asthma, Yes emphysema and No wheezing Gastro Gastrointestinal: No abdominal pain, No nausea or vomiting, No diarrhea, Yes constipation, No blood in stool, No acid reflux, No hemorrhoids, No ulcers, No gallbladder problem and No black,tarry stools Ag Hematologic: Yes blood thinners, No blood disorders, No bleeding, No anemia and No blood clots Neuro Neurologic: No system reviewed and no additional complaints, except as documented, No as per HPI, No abnormal gait, No abnormal hearing, No abnormal movements, No abnormal speech, No behavioral changes, No burning sensations, No confusion, No convulsions, No disequilibrium, No dizziness, No localized weakness, No frequent falls, No headache(s), No lack of coordination, No loss of vision, No memory loss, No numbness, No other visual disturbances, No radicular pain, No restless legs, No sensory deficit, No syncope, No tingling, No tremor(s), No weakness and No other Exam Const General: cooperative, healthy appearing, comfortable and no acute distress Neck Neck: normal visual inspection Resp Effort & Inspection: normal respiratory effort Cardio Rate: regular rate GI Inspection: non-distended Palpation: soft, no guarding and nontender Skin General: no rashes or lesions noted Neuro General: patient oriented x3 Psych Affect: normal affect Assessment and Plan Assessment and Plan (1) Hx of adenomatous colonic polyps: ?Status:?Acute Plan Patient is also on Eliquis which we will hold for 3 days prior to colonoscopy. I have discussed the above with the patient. I have offered the patient colonoscopy for evaluation. I have explained the risks/benefits of the procedure and described the procedure.? I have discussed the risks with the patient, including but not limited to:? infection, bleeding, perforation of the GI tract requiring emergency surgery, inability to complete the procedure, injury to any internal organs, complications of anesthesia, etc. - the patient understands and agrees to proceed. I have answered all the patient's questions to the patient's satisfaction and the patient has no further questions. The patient has been given instructions for the colon cleansing preparation.? 1 day MiraLAX Dulcolax split prep. Abida Sanchez M.D. Pager: [phone] [facility] [address] [place] [address], [address] [place] [address] Office: [phone] Coding Level of Care Code Off vis,est,level 3 Diagnoses Hx of adenomatous colonic polyps? Z86.010 10/30/222101 <Electronically signed by Abida Sanchez MD> Date Abida Sanchez MD
--- NOTE | 2022-12-02 08:15 | COLBX_PTH ---
PATIENT: CARLIE DEGROOT LOC: EN U#:[id number] AGE/SX: 77/M ROOM: RE12/02/[address]: Dr. Abida Sanchez MD : 1945 BED: DIS: 12/02/2022 SPEC #: [id number] RECD: 12/02/22 13:48 STATUS: ETTA MARIIA #: [id number] DOT: 12/02/22 08:[address]: Abida Sanchez DEPT: SURGICAL PATHOLOGY RECD BY: Luisito Layne ENTERED: 12/02/22 13:50 SP TYPE: COLON BX OTHR DR: Dr. Tomy Hernandez MD Tissues: A - Transverse colon B - Transverse colon C - SPLENIC FLEXURE D - Descending colon E - Sigmoid colon biopsy F - Rectum, NOS G - Rectum, NOS Procedures: Surgery Specimen Level IV HEADER OPERATION: Colonoscopy (MAC) and polypectomy PRE-OP DIAGNOSIS: History of colonic polyps TISSUE SUBMITTED: A ? Transverse colon polyp #1, B - Transverse colon polyp #2, C - Splenic flexure polyp, D ? Descending colon polyp, E ? Sigmoid colon polyp, F ? Rectal polyps, G - Rectal polyps #2 MICROSCOPIC DIAGNOSIS A. Transverse colon polyp #1, biopsy: Fragments of tubular adenoma. B. Transverse colon polyp #2, biopsy: Fragment of benign colonic mucosa. See comment. C. Splenic flexure polyp, biopsy: Tubular adenoma. D. Descending colon polyp, biopsy: Fragments of tubular adenoma. E. Sigmoid colon polyp, biopsy: Fragments of tubular adenoma. F. Rectal polyps, biopsy: Tubular adenoma. Fragments of hyperplastic polyp. G. Rectal polyps #2, biopsy: Fragments of hyperplastic polyp. AM:otilio 12/03/2022 COMMENT B. Neither hyperplastic nor adenomatous change is identified. Clinical correlation is suggested. MICROSCOPIC DESCRIPTION Slides are reviewed. GROSS DESCRIPTION A - Received in fixative is one container labeled with the patient's name and designated transverse colon polyp. The specimen consists of four variable sized polypoid fragments of grove-pink tissue that in aggregate measure 2.0 x 2.0 x 1.0 cm and 0.5 to 1.0 cm in greatest dimension. Two larger pieces are sectioned. The entire specimen is submitted in one cassette. B - Received in fixative is one container labeled with the patient's name and designated transverse polyp #2. The specimen consists of one irregular fragment of light grove soft tissue that measures 0.5 x 0.2 x 0.1 cm. The specimen is totally submitted in one cassette. C - Received in fixative is one container labeled with the patient's name and designated splenic flexure polyp. The specimen consists of a grove-pink polyp measuring 1.2 x 0.5 x 0.8 cm. The presumed base is inked. The polyp is bisected and submitted entirely in one cassette. D - Received in fixative is one container labeled with the patient's name and designated descending colon polyp. The specimen consists of multiple irregular fragments of light grove soft tissue mixed with fecal material that in aggregate measure 2.0 x 0.5 x 0.3 cm. The specimen is totally submitted in one cassette. E - Received in fixative is one container labeled with the patient's name and designated sigmoid polyp. The specimen consists of multiple irregular fragments of light grove soft tissue that in aggregate measure 1.2 x 0.5 x 0.2 cm. The specimen is totally submitted in one cassette. F - Received in fixative is one container labeled with the patient's name and designated rectal polyps. The specimen consists of multiple irregular fragments of light grove soft tissue mixed with fecal material that in aggregate measure 2.0 x 1.0 x 0.2 cm. The specimen is totally submitted in one cassette. G - Received in fixative is one container labeled with the patient's name and designated rectal polyp #2. The specimen consists of multiple irregular fragments of light grove soft tissue that in aggregate measure 1.5 x 1.5 x 0.4 cm. The specimen is totally submitted in one cassette. / SJ:rg 12/02/2022 TC:5 CPT: 73839 x7
--- NOTE | 2022-12-02 10:21 | OP.COLON_ITS ---
Patient Name: Javier Marrero Procedure Date: 12/02/2022 8:18 AM Date of : 1945 Age: 77 Procedure: Colonoscopy Indications: High risk colon cancer surveillance: Personal history of adenoma (10 mm or greater in size), High risk colon cancer surveillance: Personal history of adenoma with villous component, High risk colon cancer surveillance: Personal history of multiple (3 or more) adenomas Providers: Abida Sanchez MD Referring MD: Tomy Hernandez Medicines: Monitored Anesthesia Care Patient Profile: This is a 77 year old male. Last Colonoscopy: 6 months ago. Complications: No immediate complications. Procedure: Pre-Anesthesia Assessment: - Prior to the procedure, a History and Physical was performed, and patient medications and allergies were reviewed. The patient's tolerance of previous anesthesia was also reviewed. The risks and benefits of the procedure and the sedation options and risks were discussed with the patient. All questions were answered, and informed consent was obtained. Prior Anticoagulants: The patient has taken Eliquis (apixaban), last dose was 3 days prior to procedure. ASA Grade Assessment: Per anesthesia. After reviewing the risks and benefits, the patient was deemed in satisfactory condition to undergo the procedure. After I obtained informed consent, the scope was passed under direct vision. Throughout the procedure, the patient's blood pressure, pulse, and oxygen saturations were monitored continuously. The pediatric colonoscope was introduced through the anus and advanced to the cecum, identified by the appendiceal orifice, ileocecal valve and palpation. The colonoscopy was technically difficult and complex due to a tortuous colon. The patient tolerated the procedure well. The quality of the bowel preparation was good. Scope In: 8:28:12 AM Scope Withdrawal Time 1 hour 25 minutes 4 seconds Scope Out: 10:02:59 AM Total Procedure Duration Time 1 hour 34 minutes 47 seconds Findings: The perianal and digital rectal examinations were normal. Five pedunculated polyps were found in the rectum, sigmoid colon, descending colon, splenic flexure and transverse colon-piecemeal for transverse polyp#1. The polyps were 3 to 20 mm in size. These polyps were removed with a hot snare. Resection and retrieval were complete. Area was successfully injected with Nela ink for tattooing--proximal to tranverse polyp #1 about 2 cm in size-polyp was hiding behind tattooed fold. Multiple sessile polyps were found in the rectum. The polyps were less than 5 mm in size. Multiple small-mouthed diverticula were found in the sigmoid colon and descending colon. The exam was otherwise without abnormality. Impression: - Five 3 to 20 mm polyps in the rectum, in the sigmoid colon, in the descending colon, at the splenic flexure and in the transverse colon, removed with a hot snare. Resected and retrieved. Injected. - Multiple less than 5 mm polyps in the rectum. - Diverticulosis in the sigmoid colon and in the descending colon. - The examination was otherwise normal. Recommendation: - Discharge patient to home. - Resume previous diet. - Resume Eliquis (apixaban) at prior dose tomorrow. - Await pathology results. - Repeat colonoscopy 6 month- 1 year for surveillance based on pathology results. Procedure Code(s): --- Professional --- 03280, PT, Colonoscopy, flexible; with removal of tumor(s), polyp(s), or other lesion(s) by snare technique 82496, Colonoscopy, flexible; with directed submucosal injection(s), any substance Diagnosis Code(s): --- Professional --- D12.5, Benign neoplasm of sigmoid colon D12.4, Benign neoplasm of descending colon D12.3, Benign neoplasm of transverse colon (hepatic flexure or splenic flexure) K62.1, Rectal polyp Z86.010, Personal history of colonic polyps K57.30, Diverticulosis of large intestine without perforation or abscess without bleeding CPT copyright 2017 [employer]. All rights reserved. The codes documented in this report are preliminary and upon manager package review may be revised to meet current compliance requirements. MD Abida Mitchell MD 12/02/2022 10:20:46 AM This report has been signed electronically. Number of Addenda: 0 Note Initiated On: 12/02/2022 8:18 AM
--- NOTE | 2022-12-02 10:22 | OP.CCLET_ITS ---
12/02/2022 Tomy Hernandez [address] [place] [address] Re : Colonoscopy procedure for Javier Marrero Dear Dr. Hernandez This procedure was performed on Friday, December 02, 2022. My impressions and recommendations are as follows: Impressions : - Five 3 to 20 mm polyps in the rectum, in the sigmoid colon, in the descending colon, at the splenic flexure and in the transverse colon, removed with a hot snare. Resected and retrieved. Injected. - Multiple less than 5 mm polyps in the rectum. - Diverticulosis in the sigmoid colon and in the descending colon. - The examination was otherwise normal. Recommendations : - Discharge patient to home. - Resume previous diet. - Resume Eliquis (apixaban) at prior dose tomorrow. - Await pathology results. - Repeat colonoscopy 6 month- 1 year for surveillance based on pathology results. My findings are described in the full procedure note, which is enclosed. If I can be of further assistance, please feel free to contact me at Doctor phone number(s): , Work: . Sincerely, MD Abida Mitchell MD 12/02/2022 10:20:46 AM This report has been signed electronically.
== END 2022-12-02 10:56 | disposition home or self-care (01) ==
LOC: EN 06:41 → AC 06:42
PROVIDERS: PCP Internal Medicine; Referring Provider Internal Medicine; Visit Provider Surgery
PROC: 0DJD8ZZ Inspection of Lower Intestinal Tract, Via Natural or Artificial Opening Endoscopic (ICD-10-PCS; CPT 45378; principal; 2022-12-02 08:10)
DX: Z12.11 Encounter for screening for malignant neoplasm of colon (principal); I11.0 Hypertensive heart disease with heart failure; I50.9 Heart failure, unspecified; I48.11 Longstanding persistent atrial fibrillation; D12.8 Benign neoplasm of rectum; D12.3 Benign neoplasm of transverse colon; D12.4 Benign neoplasm of descending colon; D12.5 Benign neoplasm of sigmoid colon; Q43.8 Other specified congenital malformations of intestine; I25.2 Old myocardial infarction; I25.10 Atherosclerotic heart disease of native coronary artery without angina pectoris; G47.33 Obstructive sleep apnea (adult) (pediatric); E78.00 Pure hypercholesterolemia, unspecified; Z86.16 Personal history of COVID-19; Z99.81 Dependence on supplemental oxygen; Z79.82 Long term (current) use of aspirin; Z79.899 Other long term (current) drug therapy; Z86.010 Personal history of colon polyps; Z79.01 Long term (current) use of anticoagulants; Z87.891 Personal history of nicotine dependence
CPT/HCPCS: 45385; 45381; 88305; J7120; A4648; J1610; J2405

== ENCOUNTER → 2023-04-20 | Outpatient (CLI) | payer MEDICARE, OTHER, SELFPAY ==
[2021-12-15 12:04] VITALS: BMI 37.1
--- NOTE | 2023-04-20 13:03 | STRESSREP ---
Stress Test Report Pharmacologic myocardial perfusion stress test. 77-year-old lady with a history of chest discomfort Resting EKG demonstrates sinus rhythm with a rate of 71 bpm. Resting blood pressure is 130/72 mmHg. 0.4 mg of regadenoson was infused per usual protocol followed by rapid intravenous saline flush injection. Continuous EKG monitoring was performed. The maximum heart rate was 86 bpm which was 60% of max impacted heart rate the maximum workload was 1 metabolic equivalent. At rest there were no ST or T wave changes noted to suggest ischemia and at peak infusion nonspecific ST changes were noted which did not meet the criteria for ischemia. No clinical angina is noted. The final blood pressure was 130/72 mmHg. Myocardial perfusion protocol. 14.7 mCi of technetium 99m sestamibi was injected at rest. 0.4 mg of regadenoson was infused per usual protocol. At peak infusion 44.3 mCi of technetium 99m sestamibi was injected stress images were obtained stress and rest images were reconstructed and compared in the short axis vertical long and horizontal long axis. Gated images were also obtained. Perfusion SPECT analysis: Review of the stress images demonstrate normal uptake of tracer noted in all areas of the myocardium. The resting images similar demonstrated normal uptake of tracer noted in all areas of the myocardium. No areas of reversibility are noted to suggest ischemia and no previous infarct is noted. Gated SPECT analysis: The gated ejection fraction is 76%. Conclusion: Normal pharmacologic myocardial perfusion stress test. Preserved ejection fraction.
== END | disposition home or self-care (01) ==
LOC: CVS 07:04
PROVIDERS: PCP Internal Medicine; Referring Provider Nurse Practitioner Gerontology; Visit Provider Nurse Practitioner Gerontology
DX: Z01.810 Encounter for preprocedural cardiovascular examination (principal); I25.10 Atherosclerotic heart disease of native coronary artery without angina pectoris
CPT/HCPCS: 78452; 93017; A9500; A4216; J2785

== ENCOUNTER 2023-06-09 06:16 | Day surgery (SDC) | payer MEDICARE, OTHER, SELFPAY ==
[2021-12-15 12:04] VITALS: BMI 37.1
[2023-06-09] MEDS: Lactated Ringers 1,000 ML 15 ML IV (06:44)
[2023-06-09 06:47] VITALS: BP 122/63; PULSE 70; RESP 18; TEMP 37; O2SAT 96; BMI 36.5
--- NOTE | 2023-06-09 07:06 | PCM.HP.BLA ---
History and Physical Date of Admission: 06/09/23 OFFICE VISIT Date of Service: 05/18/23 MR#: [id number] Acct: [id number] Name: CARLIE DEGROOT Rep #: [id number] : 1945 Provider: Dr. Abida Sanchez MD Age/Sex: 77/M Location: [facility] Status: Signed Intake Vital Signs 03/11/2313:04 05/18/2312:52 Height 5 ft 7 in 5 ft 7 in Weight: 235 lb 8 oz 236 lb BMI 36.8 36.9 BP 132/69 H 152/66 H Blood Pressure Location Lt brachial Rt brachial Position Sitting Sitting Respiration 18 18 Pulse 62 77 Pulse Source Monitor Pulse Oximetry (%) 93 93 Oxygen Delivery Method room air room air Intake Visit Reasons: 6M RECALL LETTER- COLONOSCOPY Chief Complaint: 6 month recall colonoscopy Allergies lisinopril Adverse Reaction (Intermediate, Verified 05/18/23 12:53) cough Medications finasteride 5 mg tablet 5 mg PO DAILY prostate 09/24/15 [History Confirmed 05/18/23] tamsulosin 0.4 mg capsule (Flomax) 0.8 mg PO DAILY prostate 02/28/18 [History Confirmed 05/18/23] Disability Placard #1 ea 01/01/21 [Rx Confirmed 05/18/23] aspirin 81 mg capsule 81 mg PO DAILY 05/06/21 [History Confirmed 05/18/23] apixaban 5 mg tablet 5 mg PO BID blood thinner #180 tabs 10/01/22 [Rx Confirmed 05/18/23] atorvastatin 10 mg tablet 10 mg PO QDAY #90 tabs 10/01/22 [Rx Confirmed 05/18/23] diltiazem HCl 120 mg tablet 120 mg PO BID 90 days #180 tabs 10/01/22 [Rx Confirmed 05/18/23] furosemide 40 mg tablet 40 mg PO DAILY fluid #90 tabs 10/01/22 [Rx Confirmed 05/18/23] metoprolol tartrate 75 mg tablet 75 mg PO BID #180 tabs 10/01/22 [Rx Confirmed 05/18/23] potassium chloride 20 mEq tablet,extended release(part/cryst) (Klor-Con M) 20 meq PO DAILY #90 tabs 10/01/22 [Rx Confirmed 05/18/23] acetaminophen 325 mg tablet 650 mg PO DAILY arthritis in knees 11/27/22 [History Confirmed 05/18/23] amoxicillin 500 mg capsule 2,000 mg (4 x 500 mg) PO .COMPLEX #4 caps 03/11/23 [Rx Confirmed 05/18/23] PFSH Medical History Abrasion Arthritis Atherosclerotic heart disease of [place] coronary artery without angina pectoris Atrial fibrillation Bilateral pulmonary embolism BPH (benign prostatic hyperplasia) Cardiology follow-up encounter COPD (chronic obstructive pulmonary disease) COVID-19 (~09/2020) Dyspnea on exertion Easy bruising 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 Excessive bleeding Fever Former smoker High cholesterol History of atrial fibrillation History of CHF (congestive heart failure) History of COVID-19 History of echocardiogram History of edema History of left heart catheterization (LHC) (~05/06/21) History of transcatheter aortic valve replacement (TAVR) (~07/10/21) Hyperlipidemia Hypertension Left-sided weakness Non-rheumatic mitral valve stenosis Nonrheumatic aortic (valve) stenosis Nonrheumatic tricuspid (valve) insufficiency On home oxygen therapy NOAM (obstructive sleep apnea) Other secondary pulmonary hypertension Persistent atrial fibrillation Prostate disease Pulmonary embolism Solitary pulmonary nodule Stage 1 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 Wears dentures Wears glasses Wears hearing aid Surgical History H/O oral surgery History of colonoscopy (~2010) History of heart surgery History of left cataract surgery Family History Mother CVA (cerebral vascular accident) DiabetesOther Family history of CVA Social History Smoking Status: Former smoker Tobacco: How many years used: 40 how long ago did patient quit smokin second hand exposure: No alcohol intake: never substance use type: does not use caffeine: Yes Type: tea what type of physical activity do you participate in: none seatbelt use: always do you feel safe at home: Yes HPI HPI HPI: 77-year-old male presents for follow-up colonoscopy due to history of colon polyps. 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 Patient presents for repeat colonoscopy. Patient is on Eliquis which she is able to hold. ROS General General: Yes weight change and fatigue; No appetite, colon cancer, breast cancer or weakness HEENT HEENT: No difficulty swallowing, eye injury, eye surgery, swollen glands or hoarseness Endo Endocrine: No thyroid disease, diabetes mellitus, thyroid cancer, Hair loss, heat intolerance or cold intolerance Skin Skin: No rash or changing moles Musc Musculoskeletal: Yes arthritis and rheumatoid arthritis; No back problems, gout or joint pain Cardio Cardiovascular: Yes murmur, heart disease, atrial fibrillation, high blood pressure and heart stent; No pacemaker, heart attack, palpitations, shortness of breat with exertion or chest pain Psych Psychiatric: Yes anxiety; No depression or hearing voices Resp Respiratory: Yes shortness of breath, Yes sleep apnea, No cough, Yes COPD, No asthma, Yes emphysema and No wheezing Gastro Gastrointestinal: No abdominal pain, No nausea or vomiting, No diarrhea, Yes constipation, No blood in stool, No acid reflux, No hemorrhoids, No ulcers, No gallbladder problem and No black,tarry stools Ag Hematologic: Yes blood thinners, No blood disorders, No bleeding, No anemia and No blood clots Neuro Neurologic: No system reviewed and no additional complaints, except as documented, No as per HPI, No abnormal gait, No abnormal hearing, No abnormal movements, No abnormal speech, No behavioral changes, No burning sensations, No confusion, No convulsions, No disequilibrium, No dizziness, No localized weakness, No frequent falls, No headache(s), No lack of coordination, No loss of vision, No memory loss, No numbness, No other visual disturbances, No radicular pain, No restless legs, No sensory deficit, No syncope, No tingling, No tremor(s), No weakness and No other Exam Const General: cooperative, healthy appearing, comfortable and no acute distress Neck Neck: normal visual inspection Resp Effort & Inspection: normal respiratory effort Cardio Rate: regular rate GI Inspection: non-distended Palpation: soft, no guarding and nontender Skin General: no rashes or lesions noted Neuro General: patient oriented x3 Psych Affect: normal affect Assessment and Plan Assessment and Plan (1) Hx of adenomatous colonic polyps: Status: Acute (2) Anticoagulant long-term use: Status: Acute Orders: Orders Colonoscopy 06/09/23 Plan I have discussed the above with the patient. I have offered the patient colonoscopy for evaluation. I have explained the risks/benefits of the procedure and described the procedure. I have discussed the risks with the patient, including but not limited to: infection, bleeding, perforation of the GI tract requiring emergency surgery, inability to complete the procedure, injury to any internal organs, complications of anesthesia, etc. - the patient understands and agrees to proceed. I have answered all the patient's questions to the patient's satisfaction and the patient has no further questions. The patient has been given instructions for the colon cleansing preparation. 1 day of clears, MiraLAX Dulcolax split prep. Abida Sanchez M.D. Pager: [phone] [facility] [address] [place] [address], [address] [place] [address] Office: [phone] Coding Level of Care Code Off vis,est,level 3 Diagnoses Hx of adenomatous colonic polyps Z86.010 Anticoagulant long-term use Z79.01 05/20/23 0950 <Electronically signed by Abida Sanchez MD> Date Abida Sanchez MD
--- NOTE | 2023-06-09 07:30 | COLBX_PTH ---
PATIENT: CARLIE DEGROOT LOC: EN U#:[id number] AGE/SX: 77/M ROOM: RE06/09/[address]: Dr. Abida Sanchez MD : 1945 BED: DIS: 06/09/2023 SPEC #: [id number] RECD: 06/09/23 10:14 STATUS: ETTA REDarrell #: [id number] DOT: 06/09/23 07:[address]: Abida Sanchez DEPT: SURGICAL PATHOLOGY RECD BY: Pauline Stubbs ENTERED: 06/09/23 12:05 SP TYPE: COLON BX OTHR DR: Dr. Tomy Hernandez MD Tissues: A - Ascending colon B - Rectum, NOS Procedures: Surgery Specimen Level IV HEADER OPERATION: Colonoscopy, polypectomy PRE-OP DIAGNOSIS: History of adenomatous colonic polyps, anticoagulant long-term use TISSUE SUBMITTED: A - Ascending polyp, B - Rectal polyps polypectomy and biopsy MICROSCOPIC DIAGNOSIS A. Ascending colon polyp, biopsy: Fragments of tubular adenoma. B. Rectal polyps, biopsy and polypectomy: Fragments of hyperplastic polyp. JIMMIE:otilio 06/10/2023 MICROSCOPIC DESCRIPTION Slides are reviewed. GROSS DESCRIPTION A - Received in fixative is one container labeled with the patient's name and designated ascending polyp. The specimen consists of two irregular fragments of [place] soft tissue that in aggregate measure 0.8 x 0.2 x 0.1 cm. The specimen is totally submitted in one cassette. B - Received in fixative is one container labeled with the patient's name and designated rectal polyp biopsy and polypectomy. The specimen consists of multiple irregular fragments of [place] soft tissue that in aggregate measure 1.0 x 0.5 x 0.1 cm. The specimen is totally submitted in one cassette. / JIMMIE:otilio 06/09/2023 TC:1 CPT: 47865 x2
[2023-06-09 08:21] VITALS: BP 122/63; BP 94/61; BP 99/57; PULSE 61; PULSE 65; RESP 18; RESP 20; TEMP 36.2; O2SAT 92; O2SAT 93
--- NOTE | 2023-06-09 08:23 | OP.COLON_ITS ---
Patient Name: Javier Marrero Procedure Date: 06/09/2023 7:19 AM Date of : 1945 Age: 77 Procedure: Colonoscopy Indications: High risk colon cancer surveillance: Personal history of adenoma with villous component, High risk colon cancer surveillance: Personal history of multiple (3 or more) adenomas Providers: Abida Sanchez MD Referring MD: Abida Sanchez MD Medicines: Monitored Anesthesia Care Patient Profile: Last Colonoscopy: November 2022. Complications: No immediate complications. Procedure: Pre-Anesthesia Assessment: - Prior to the procedure, a History and Physical was performed, and patient medications and allergies were reviewed. The patient's tolerance of previous anesthesia was also reviewed. The risks and benefits of the procedure and the sedation options and risks were discussed with the patient. All questions were answered, and informed consent was obtained. Prior Anticoagulants: The patient has taken Eliquis (apixaban), last dose was 3 days prior to procedure. ASA Grade Assessment: Per anesthesia. After reviewing the risks and benefits, the patient was deemed in satisfactory condition to undergo the procedure. After I obtained informed consent, the scope was passed under direct vision. Throughout the procedure, the patient's blood pressure, pulse, and oxygen saturations were monitored continuously. The colonoscope was introduced through the anus and advanced to the cecum, identified by the appendiceal orifice, ileocecal valve and palpation. The colonoscopy was performed without difficulty. The patient tolerated the procedure well. The quality of the bowel preparation was adequate to identify polyps. Scope In: 7:36:21 AM Scope Withdrawal Time 0 hours 24 minutes 19 seconds Scope Out: 8:10:12 AM Total Procedure Duration Time 0 hours 33 minutes 51 seconds Findings: The perianal and digital rectal examinations were normal. Multiple medium-mouthed diverticula were found in the sigmoid colon. A less than 5 mm polyp was found in the ascending colon. The polyp was semi-sessile. The polyp was removed with a hot snare. Resection and retrieval were complete. Multiple sessile polyps were found in the rectum. The polyps were less than 5 mm in size. These polyps were removed with a cold biopsy forceps. Resection and retrieval were complete. The exam was otherwise without abnormality on direct and retroflexion views. Impression: - Diverticulosis in the sigmoid colon. - One less than 5 mm polyp in the ascending colon, removed with a hot snare. Resected and retrieved. - Multiple less than 5 mm polyps in the rectum, removed with a cold biopsy forceps. Resected and retrieved. - The examination was otherwise normal on direct and retroflexion views. Recommendation: - Discharge patient to home. - Resume previous diet. - Resume Eliquis (apixaban) at prior dose tomorrow. - Await pathology results. - Repeat colonoscopy in 3 years for surveillance based on pathology results. Procedure Code(s): --- Professional --- 21311, PT, Colonoscopy, flexible; with removal of tumor(s), polyp(s), or other lesion(s) by snare technique 97271, 59, Colonoscopy, flexible; with biopsy, single or multiple Diagnosis Code(s): --- Professional --- D12.2, Benign neoplasm of ascending colon D12.8, Benign neoplasm of rectum Z86.010, Personal history of colonic polyps K57.30, Diverticulosis of large intestine without perforation or abscess without bleeding CPT copyright 2021 [employer]. All rights reserved. The codes documented in this report are preliminary and upon director of patient safety review may be revised to meet current compliance requirements. MD Abida Mitchell MD 06/09/2023 8:23:40 AM This report has been signed electronically. Number of Addenda: 0 Note Initiated On: 06/09/2023 7:19 AM
--- NOTE | 2023-06-09 08:24 | OP.CCLET_ITS ---
06/09/2023 Tomy Hernandez [address] [place] [address] Re : Colonoscopy procedure for Javier Marrero Dear Dr. Hernandez This procedure was performed on Friday, June 09, 2023. My impressions and recommendations are as follows: Impressions : - Diverticulosis in the sigmoid colon. - One less than 5 mm polyp in the ascending colon, removed with a hot snare. Resected and retrieved. - Multiple less than 5 mm polyps in the rectum, removed with a cold biopsy forceps. Resected and retrieved. - The examination was otherwise normal on direct and retroflexion views. Recommendations : - Discharge patient to home. - Resume previous diet. - Resume Eliquis (apixaban) at prior dose tomorrow. - Await pathology results. - Repeat colonoscopy in 3 years for surveillance based on pathology results. My findings are described in the full procedure note, which is enclosed. If I can be of further assistance, please feel free to contact me at Doctor phone number(s): , Work: . Sincerely, MD Abida Mitchell MD 06/09/2023 8:23:40 AM This report has been signed electronically.
[2023-06-09 08:29] VITALS: BP 101/63; BP 122/63; PULSE 64; RESP 14; O2SAT 98
[2023-06-09 08:32] VITALS: BP 106/68; BP 122/63; PULSE 62; RESP 18; TEMP 36.4; O2SAT 93
[2023-06-09 08:50] VITALS: BP 122/63
== END 2023-06-09 08:56 | disposition home or self-care (01) ==
LOC: EN 06:17 → AC 06:18
PROVIDERS: PCP Internal Medicine; Referring Provider Surgery; Visit Provider Surgery
PROC: 0DJD8ZZ Inspection of Lower Intestinal Tract, Via Natural or Artificial Opening Endoscopic (ICD-10-PCS; CPT 45378; principal; 2023-06-09 07:25)
DX: D12.2 Benign neoplasm of ascending colon (principal); J44.9 Chronic obstructive pulmonary disease, unspecified; I48.19 Other persistent atrial fibrillation; K57.30 Diverticulosis of large intestine without perforation or abscess without bleeding; I25.10 Atherosclerotic heart disease of native coronary artery without angina pectoris; K62.1 Rectal polyp; G47.33 Obstructive sleep apnea (adult) (pediatric); E78.00 Pure hypercholesterolemia, unspecified; I10 Essential (primary) hypertension; Z79.01 Long term (current) use of anticoagulants; Z79.82 Long term (current) use of aspirin; Z79.899 Other long term (current) drug therapy; Z86.16 Personal history of COVID-19; Z99.81 Dependence on supplemental oxygen; Z86.711 Personal history of pulmonary embolism; Z87.891 Personal history of nicotine dependence; Z86.010 Personal history of colon polyps; Z86.73 Personal history of transient ischemic attack (TIA), and cerebral infarction without residual deficits
CPT/HCPCS: 45385; 45380; 88305; J7120; J2405

== ENCOUNTER → 2023-08-13 | Outpatient (CLI) | payer MEDICARE, OTHER, SELFPAY ==
[2021-12-15 12:04] VITALS: BMI 37.1
--- NOTE | 2023-08-13 07:46 | CT_ITS ---
CT LEFT LOWER EXTREMITY WITH 3-D IMAGING CLINICAL INDICATION: Varus deformity, not elsewhere classified, left knee TECHNIQUE: Axial CT images of the LEFT lower extremity was performed IV contrast material. Coronal and sagittal reformats were provided. RADIATION DOSAGE (If Supplied By Facility): CTDIvol = ( 18.76 ) mGy, DLP = ( 1133.32 ) mGycm COMPARISON: X-ray 01/06/2022 FINDINGS: Bones: Mild joint space narrowing and osteophyte formation of the left hip joint consistent with mild arthrosis. Severe right knee arthrosis with severe joint space narrowing and osteophyte formation medial compartment with subchondral sclerosis and subchondral cyst formation, mild lateral tibial translation, mild lateral compartment arthrosis, and mild patellofemoral compartment arthrosis. No tibiotalar joint arthrosis. 12 mm os trigonum. Soft Tissues: The deep soft tissue structures are unremarkable. The superficial soft tissues are unremarkable without evidence of edema, hematoma, or foreign body. CT/Extremity Lower without Contra IMPRESSION: Severe knee arthrosis. Electronically Signed: Andrea Anthony MD at 9:38 EST ,
== END | disposition home or self-care (01) ==
LOC: CT 07:45
PROVIDERS: PCP Internal Medicine; Referring Provider Specialist; Visit Provider Specialist
DX: M21.162 Varus deformity, not elsewhere classified, left knee (principal)
CPT/HCPCS: 73700

== ENCOUNTER 2023-09-01 06:59 | Observation (INO) | payer MEDICARE, OTHER, SELFPAY ==
[2021-12-15 12:04] VITALS: BMI 37.1
--- NOTE | 2023-08-19 13:39 | RAD_ITS ---
STUDY: X-RAY CHEST REASON FOR EXAM: Male, 77 years old. PREOP TECHNIQUE: PA and lateral views of the chest. COMPARISON: February 03, 2023 chest x-ray FINDINGS: There is a persistent hazy appearance of the lung bases with increased interstitial markings. Findings suggest bronchiectasis possible underlying fibrotic change. There is no demonstrated pleural abnormality. There is mild cardiac enlargement. Is visualized down to the level of the aortic valve compatible with repair with TAVR.. Normal visualized pulmonary arteries. There is atherosclerotic calcification of the aortic arch with tortuosity. There are diffuse degenerative changes of the visualized thoracic spine. Normal visualized ribs, clavicles, and shoulders. There is no demonstrated abnormality of the visualized soft tissue structures of the upper abdomen. RAD/Chest PA and Lateral IMPRESSION: Mild cardiomegaly. Stable chest. Chronic appearing lower lobe atelectasis possible bronchiectasis and/or underlying fibrotic change. Status post Tavr. Electronically Signed: Indira Prince MD at 18:20 EST Reading Location ID and State: [facility] / [place] Tel , Service support ,
[2023-08-19 15:55] LABS: Absolute Lymphocyte Count 2.06 X10^3/uL (0.83-4.51); Absolute Neutrophil Count 6.9 X10^3/uL (2.0-7.7); Basophil# 0.11 X10^3/uL; Basophil% 1.1 % (0-1); Eosinophils% 1.9 % (0-5); Hemoglobin 14.3 g/dL (13.0-16.5); Lymphocyte # 2.06 X10^3/ul (0.83-4.51); Lymphocyte % 19.8 % (19-41); Mean Corp Hgb Conc 31.8 g/dL (32-36); Mean Corpuscular Hgb 31.3 pg (27.0-32.0); Mean Corpuscular Volume 98.5 fL (80-94); Mean Platelet Vol. 10.3 fl (6.2-12.0); Monocyte# 1.05 X10^3/uL; Monocyte% 10.1 % (0-10); NRBC Flagged by Analyzer 0 % (0-5); Neutrophil % 66.3 % (47-70); Platelet Count 212 K/mm3 (150-450); RBC Distribution Width CV 13.4 % (11.6-14.6); RBC Distribution Width SD 47.5 fl (35.1-43.9); Red Blood Count 4.57 M/mm3 (4.6-6.2); White Blood Count 10.4 K/mm3 (4.4-11.0)
[2023-08-19 16:17] LABS: Magnesium 2.3 mg/dL (1.6-2.6)
[2023-08-19 16:19] LABS: Anion Gap 7 (5-15); BUN 26 mg/dL (7-18); BUN/Creat Ratio 22.6 RATIO (10-20); Calcium,Total 9.5 mg/dL (8.5-10.1); Chloride 107 mmol/L (98-107); Creatinine, Serum 1.15 mg/dL (0.70-1.30); EST Glomerular Filtration Rate 65 mL/min (>60); Est Glom Filt Rate - Afr Amer 79 mL/min (>60); Glucose 86 mg/dL (74-106); Potassium 4.1 mmol/L (3.5-5.1); Sodium Level 139 mmol/L (136-145)
--- NOTE | 2023-08-25 11:28 | HP.PCM_ITS ---
History and Physical History and Physical? Patient Name: Javier Marrero : 1945 From:? YAMILET MORENO PA-C? DATE OF PRE-OPERATIVE EXAM: 08/25/2023 DATE OF SURGERY:? 09/01/2023 SCHEDULED PROCEDURE:? Left total knee arthroplasty HISTORY OF PRESENT ILLNESS: Preoperative history and physical exam was performed on August 25, 2023.? This is a 78-year-old male who is had ongoing pain for the past 1-2 years.? His pain has been constant, sharp, sore.? Pain is increased with going up and down stairs, walking, sitting and driving.? Patient's pain can reach 8/10 with activities.? Pain is located over bilateral medial knees.? The left knee has been worse in the right.? He has had a previous right knee Visco supplementation injection on March 29, 2023 which did not help.? Patient has attempted conservative measures including rest, Tylenol, topical Voltaren gel and activity modifications without relief.? Patient is unable to take nonsteroidal anti- inflammatories due to his cardiac history.? He has tried Tylenol with minimal relief.? He denies past history of surgery on the left knee.? He has been using a brace without relief.? We have obtain surgical clearance from the primary care provider Dr. Hernandez and pile driver engineer Dr. Rivera.? Patient does have medical history pertinent for congestive heart failure, chronic obstructive pulmonary di sease, hypertension, hypercholesterolemia, history of pulmonary embolism, rheumatoid arthritis, benign prostatic hyperplasia, and chronic atrial fibrillation.? He is currently on Eliquis 5 mg twice daily.? Cardiology gave clearance to stop the Eliquis 3 days prior to surgery.? He will continue with his 81 mg aspirin.? Patient does have past history of transcatheter aortic valve replacement.? Patient also has underlying history of sleep apnea which she has not tolerated a CPAP machine.? However he has been using 2 L of nasal oxygen at nighttime.? With regards to his benign prostatic hyperplasia he has experienced urinary retention after a previous oral surgery.? He has seen 2 different urologists in the past.? He has remained on his Flomax.? He also states they have been following a new tremor on his left upper extremity.? His primary care provider has been following.? He denies any recent chest pain, shortness of breath, fevers chills or recent infections.? After failing conservative measures and discussing all treatment options with Dr. Jarod Lamb, the patient does wish to proceed with a left total knee arthroplasty. REVIEW OF SYSTEMS: Review Of Systems: Constitutional: Reports change in appetite, but denies fever and weight change. Cardiovasular: Reports heart murmur and irregular heartbeat, but denies chest pain. Respiratory: Reports cough, pneumonia and shortness of breath, but denies tuberculosis and wheezing. Gastrointestinal: Denies constipation, diarrhea, heartburn, nausea, rectal itching, bloody stools and vomiting. Genitourinary: Reports incontinence. Musculoskeletal: Reports trouble walking, but denies leg swelling, pain and weakness. Skin: Denies Raynaud's, history of shingles and tattoo. Neurological: Denies ambulatory dysfunction, dizziness, numbness/tingling and tremor. Psychiatric: Reports anxiety, but denies insomnia and stress. Hematologic/Lymphatic: Denies anemia, bleeding/bruising tendency and past transfusion. Reviewed, no changes. PAST MEDICAL HISTORY: Advance Care Plan: No Advance Directives Effective Date: 03/15/2023 Past Medical History: Medical Problems: Arthritis, Congestive Heart Failure (CHF), Chronic Obstructive Pulmonary Disease (COPD), Hard of Hearing, High Blood Pressure, Hypercholesterolemia, History Of Blood Clots/ DVT, Pulmonary Embolism, Rheumatoid Arthritis, Sleep Apnea, Covid- 19 Vaccine Covid- 19 - (2020) Afib, Benign prostatic hyperplasia Accidents: None Surgical Hx: Cataracts Heart Valve Replacement - (2020) oral surgeries [id number] Anesthesia Complications: Anesthesia Complications, Urinary Retention Assistive Devices: Dentures, Glasses Reviewed and updated. SOCIAL HISTORY: Social History: Marital: .Occupation: Retired.Work Status: Disabled - (2005).Hand Dominance: Right-handed. Personal Habits:? Cigarette Use: Former Cigarette Smoker.Smokeless Tobacco: Never Used Smokeless Tobacco.E-Cigarette Use: Never used.Alcohol: Has consumed alcohol in the past.Drug Use: Denies Use.Enjoy Exercising: Never Exercises. Reviewed, no changes. VITALS: Ht: 67 Wt: 239lb Wt k.410 BMI: 37.4 BP: 120/68 Pulse: 74 Resp: 18 T: 98.0 T: 36.7C Pain Level: 7 O2SatR: 97 ALLERGIES: Lisinopril - Cough? MEDICATIONS: Tamsulosin HCL 0.4 mg one cap po once daily, Finasteride 5 mg one tab po once daily, Klor-Con M20 20 Meq onne tab po once daily, Furosemide 40 mg one tab po once daily, Metoprolol Tartrate 75 mg one tab po bid, Eliquis 5 mg 1 by mouth twice a day, Atorvastatin Calcium 10 mg one tab po once daily, Diltiazem HCL 120 mg one tab po bid, Acetaminophen 325 mg every 6 hours as needed, Aspirin 81 81 mg 1 pill? once a day by mouth, Miralax 17 gm as needed, Vitamin D3 25 mcg (1000 Ut) 1 a day PRE-OP EXAM:? General appearance:NORMAL? ? ? Other: Eyes: Conjunctivae and lids: NORMAL? Pupils: ERR Ears, Nose, Mouth, and Throat: NORMAL? Other: Inspection of lips, teeth and gums: NORMAL? ?Other: Neck: Examination of neck: no masses noted. Respiratory: Assessment of respiratory effort: NORMAL? ?Other: ?Auscultation of lungs: clear to auscultation no wheezes, rhonchi or rales. Cardiovascular:? Auscultation of heart: Irregular irregular rhythm consistent with atrial fibrillation? PHYSICAL EXAMINATION: Patient does walk with an antalgic gait.? Left knee is without erythema or signs of infection.? He has varus alignment which is only partially correctable.? He has moderate effusion.? Range of motion: Lacks 10 full extension to 112 flexion.? Stable to varus/valgus stress test, stable to anterior/posterior drawer exam.? Sensation intact to light touch. IMAGING STUDIES: Previous x-rays of the left knee reveal varus alignment with medial joint space narrowing, subchondral sclerosis, osteophyte formation consistent with severe stage IV [id number] erosive osteoarthritis.? There is also severe stage IV [id number] erosive osteoarthritis with the right knee involving the medial compartment with varus alignment. IMPRESSION: 1.? Severe left knee osteoarthritis with varus alignment 2.? Severe right knee osteoarthritis with varus alignment 3.? Hypertension 4.? Congestive heart failure 5.? Chronic obstructive pulmonary disease 6.? History of pulmonary embolism 7.? Chronic atrial fibrillation 8.? Sleep apnea 9.? Benign prostatic hyperplasia 10.? Rheumatoid arthritis 11.? History of trans-catheter aortic valve replacement 12.? Tremor 13.? Obesity with BMI 37.4 PLAN: Dr. Jarod Lamb did discuss and review with the patient all treatment options including surgical versus nonsurgical options.? Patient does wish to proceed with the above-stated procedure.? Potential risks, benefits, and complications of the procedure were discussed in detail including but not limited to , infection, nerve and blood vessel damage, persistent pain, numbness, tingling, paresthesias, blood clot, pulmonary embolism, and requirement for possible further surgery.? The patient expressed full understanding and has no further questions for the doctor.? Patient does agree to proceed with the above-stated procedure and has signed the surgery consent form. POST-OP MEDICATION PLAN: Pain Medications:? Discussed with the patient postoperative pain management.? P ain regimen will be initiated by Dr. Jarod Lamb.? Patient is not able to use nonsteroidal anti-inflammatories due to the full dose Eliquis as well as previous cardiac history.? We discussed postoperative course of treatment with pain as well as his block.? All questions were answered.? He has Walker that he will bring to the hospital.? We will also evaluate patient for appropriate discharge planning at the hospital with recommendations from physical therapy.? I did advise them that case management will be involved for discharge planning. DVT Prophylaxis: Patient will resume his Eliquis 5 mg twice daily as prescribed by cardiology.? Patient is to stop his Eliquis 3 days prior to surgery will remain on his aspirin 81 mg. This dictation was created using voice recognition software. Phonetic and/or grammatical errors may exist. ___? I have re-examined the patient.? There are no clinical changes since date of exam. ___? See progress notes for changes. ___? Dictated on admission Date: ? ? ?Time: Signature:
[2023-09-01] VITALS (15 sets, daily range): BP systolic 113–147; BP diastolic 54–94; PULSE 60–88; RESP 16–18; TEMP 36.2–36.8; O2SAT 88–100; BMI 38.0
--- NOTE | 2023-09-01 | KNEE_PTH ---
PATIENT: CARLIE DEGROOT LOC: MS3 U#:[id number] AGE/SX: 78/M ROOM: [facility] [place]01/[address]: Dr. Jarod Lamb MD : 1945 BED: 1 DIS: 09/02/2023 SPEC #: [id number] RECD: 09/01/23 13:54 STATUS: ETTA REQ #: [id number] DOT: 09/01/23 00:[address]: Jarod Lamb DEPT: SURGICAL PATHOLOGY RECD BY: River Kam ENTERED: 09/01/23 13:54 SP TYPE: TOTAL KNEE OTHR DR: MD Dr. Tomy Mcginnis MD Tissues: Knee, NOS Procedures: Decalcification bone/plaque Surgery Specimen Level IV HEADER OPERATION: ERAS, total knee replacement robotic arm assist PRE-OP DIAGNOSIS: Severe left knee osteoarthritis with varus alignment TISSUE SUBMITTED: Debrided left knee bone and tissue MICROSCOPIC DIAGNOSIS Bone and tissue, left knee, total knee replacement/resection: Pieces of bone with degenerative osteoarthritic changes. Fibroadipose tissue, fibroconnective tissue and reactive synovial tissue. JIMMIE:otilio 09/08/2023 MICROSCOPIC DESCRIPTION Slides are reviewed. GROSS DESCRIPTION Received is one container designated bone and soft tissue left knee. The specimen consists of multiple fragments of grove-yellow bone measuring in aggregate 11.0 x 11.0 x 4.0 cm. Also in the specimen container are multiple fragments of yellow-white soft tissue measuring in aggregate 5.0 x 4.0 x 2.0 cm. A number of bony fragments contain articular surfaces consistent with tibial plateau and femoral condyle and displaying prominent osteophyte formation, eburnation and bone erosion. Studio Engineer sections are submitted in two cassettes as follows: 1 - soft tissue, 2 - bone after decalcification. / JIMMIE:otilio 09/01/2023 TC:5 CPT: 74939, 81641
[2023-09-01] MEDS: Magnesium 1 GM over 15 mins IV (07:11)
[2023-09-01] MEDS: Gabapentin 600 MG Tablet PO (07:12)
[2023-09-01] MEDS: Lactated Ringers 500 ML 999 ML IV ×2 (07:12→10:15)
[2023-09-01] MEDS: Acetaminophen 500 MG Tablet 1000 MG PO ×3 (07:12→21:07)
[2023-09-01 07:19] LABS: Bedside Glucose 120 mg/dL (74-106)
[2023-09-01] MEDS: Cefazolin 2 GM in 0.9% Normal Saline (100mL Bag) 100 ML IV (08:40)
[2023-09-01] MEDS: dexAMETHasone 10 MG/ML Vial IV (08:50)
[2023-09-01] MEDS: JPS (Morphine 10mg/ml) OPERA.SITE (09:36)
--- NOTE | 2023-09-01 09:55 | OP.PCM_ITS ---
Report of Operation Pre-Operative Diagnosis: Left knee primary osteoarthritis Post-Operative Diagnosis: Left knee primary osteoarthritis Surgery/Procedure Performed:: Left knee minimally invasive robotic assisted total knee replacement Description of Surgical Findings:: Stable knee with good patella tracking Surgeon: Jarod Lamb tobacco feeder catcher: Omer Maldonado Type of Anesthesia: Spinal Anesthesiologist: Johnnie Fernandez Special Medications: 2 g Ancef, 1 g TXA at incision, 1 g TXA closure, 10 mg Decadron, joint cocktail (5 mg Duramorph, 30 mL of 0.5% Ropivicaine, 1000 units of epinephrine, 30 mg of Toradol) Specimen's removed: Bony cuts Estimated Blood Loss (mL): 150 Fluids Replaced: 1000 mL crystalloid Description of Procedure: Implants used: 1. Phoenix size 5 triathlon cruciate retaining distal femoral press-fit comp onent 2. Phoenix size 6 press-fit tritanium tibial baseplate 3. Phoenix X3 9 mm CS polyethylene 4. Hima X3 38 mm asymmetric patella Brief history operative indications: 78-year-old m with history of left knee osteoarthritis with radiographic findings with loss of joint space, osteophyte formation and subchondral sclerosis. Failed conservative measures as mentioned in the H&P. Discussion of total knee arthroplasty as well as risk and benefits were discussed the patient including but not limited to blood loss, DVTs, PEs, neurovascular damage, general risk of anesthesia including loss of life, and stiffness or instability were discussed with patient. Patient demonstrated understanding and was able to sign informed consent. Procedure: On the date of procedure patient's left lower extremity was marked in the preoperative area. The patient was then taken back to the operating room where the patient was placed on the table in the supine position. All bony prominences were identified a well-padded. Anesthesia assumed control of the C-spine and airway and remained controlled throughout the remainder of the procedure. A tourniquet was placed on the left upper thigh and the leg was prepped in a sterile fashion. The surgeon then scrubbed at this time .Upon reentering the room left lower extremity was draped in a standard orthopedic fashion. A timeout was then called and everyone agreed upon the side, the site, the procedure to be performed, patient's identity and antibiotics given. Esmarch bandage was used to exsanguinate the extremity and the tourniquet was placed up to 250 mmHg with the knee in flexion. A midline skin incision was made and sharp dissection was taken down through skin subcutaneous tissue and fat. The standard medial parapatellar incision was made and the patella was subluxed laterally. An Appropriate deep MCL release was done and the fat pad was resected. Our attention was then directed to the patella. The patella was everted and a flat resection was made. The knee was then flexed up in 2 femoral pins were placed inside the incision and 2 tibial pins were placed outside the incision in the medial tibia bicortically. Once this was completed the 2 checkpoints in the femur and tibia were placed. Knee was then flexed up and the bony landmarks were registered. Once this was completed knee was taken through range of motion and manually stressed allowing us to a plan for an appropriate tibial cut. The robotic arm was brought into the field sterilely and checkpoint and saw were registered. Based on the patient's deformity the tibial cut was made in 1 degree of varus. At this time the tensioner was then placed in the joint and ligament tension was checked at 90 degrees and full extension. Based on the patient's ligamentous tension appropriate adjustments were made to the operative plan and ligament releases were done. Once we were happy with our operative plan with balanced flexion and extension gaps our attention was directed to the femur. The robot was brought into the field sterilely and registered. Posterior condylar cuts, anterior chamfer cuts and anterior cuts were appropriately made for a size 5 femur. When these were completed the saws were switched out in the distal femoral and posterior chamfer cuts were made. Protecting the soft tissue throughout this time. A size 6 tibial base plate was selected. the knee was flexed to 90 degrees and the soft tissues and posterior osteophytes were removed from the joint. 40 cc of the periarticular injection was injected into the posterior medial corner of the joint. The appropriate trials were then placed on the femur and tibia. A trial polyethylene was trialed to ensure proper balancing and stability of the knee. The appropriate tibial internal rotation was then marked with a bovie. Our attention was then directed to the patella. The lug holes were drilled and the patella trial was placed. Patellar tracking was checked and deemed appropriate. Once we were happy lug holes were drilled for the femur and trial components were removed. the tibia was subluxed and pinned into place and the keel was punched and drilled appropriately. Final components were verified and opened, and cement was mixed in a vacuum. setObject Simplex cement was used. The wound was copiously irrigated with normal saline. When the cement was ready the components were impacted into place starting with the tibia, femur and finally cementing the patella. The trial poly component was placed and the knee was placed in full extension. All excess cement was removed in the process. Once the cement had cured the tracking, alignment and balance were verified and a size [] polyethylene component was placed. Once the final components were placed a 3-minute dilute Betadine lavage was performed followed by an Irrisept lavage was performed and the wound was copiously irrigated with normal saline solution and the periarticular injection was given. The wound was closed in a layer us fashion using #1 vicryl interrupted sutures for the arthrotomy, 2-0 interrupted Vicryl suture for the subcuticular layer and jean pierre for final skin closure. A sterile compressive dressing was then placed. The patient was then awakened from anesthesia, transferred to the rsterling and transferred to the PACU for recovery. Post op plan DVT ppx: Patient will resume full dose Eliquis tomorrow, thigh high compression stockings Follow up: in office in 2 weeks for wound check PT: to start POD #0 at hospital, outpatient PT should be arranged. My physician assistant baseball coach was a vital part of this case. He was important in appropriate retraction during the case, and protection of soft tissues during bony cuts. His intimate knowledge of the case and my steps aided in safe and expedient completion of the procedure as well as appropriate position of the leg during the case. He was also vital in assisting with closure under my direct supervision. Due to the complexity of this case robotic arm was used to assist in the surgery to improve accuracy and clinical outcomes. Complications No intraoperative complications Admit VTE Documentation VTE Present on Admission: No VTE Mechan Device Prophylaxis: SCD's and Thigh High ANDREA Hose VTE Pharm Prophylaxis ordered?: Yes
[2023-09-01] MEDS: TRANEXAMIC ACID 2,000 MG in 0.9% Normal Saline (100mL Bag) 100 ML 660 MG IV (10:00)
--- NOTE | 2023-09-01 10:45 | RAD_ITS ---
STUDY: X-RAY - LEFT KNEE REASON FOR EXAM: Male, 78 years old. Post op -- AP and Lateral xray of operative knee in PACU TECHNIQUE: 2 view(s) of the knee. COMPARISON: Comparison is made with prior study dated January 05, 2022. FINDINGS: Normal visualized distal femur. Normal visualized proximal tibia and fibula. Normal proximal tibiofibular articulation. The patient is status post total knee replacement. There is good alignment. Postoperative soft tissue changes RAD/Knee 1 or 2 Views IMPRESSION: Status post total knee replacement. There is good alignment. Postoperative soft tissue swelling. Electronically Signed: Brendan Garcia MD at 11:16 EST ,
[2023-09-01] MEDS: Ipratropium/Albuterol Sulfate 3 ML AMPUL.NEB INHALATION (11:26)
[2023-09-01] MEDS: Lactated Ringers 1,000 ML 15 ML IV (11:37)
[2023-09-01] MEDS: Potassium Chloride Oral Tablet 20 MEQ PO (12:30)
[2023-09-01] MEDS: Famotidine 20 MG Tablet PO (12:30)
[2023-09-01] MEDS: Furosemide 40 MG Tablet PO (12:30)
[2023-09-01] MEDS: Cefazolin 1 GM/50 ML BAG IV (16:45)
[2023-09-01] MEDS: dilTIAZem CD 120 MG Capsule PO (21:05)
[2023-09-01] MEDS: Senna/Docusate Sodium 1 Tablet 2 TABLET PO (21:06)
[2023-09-01] MEDS: Metoprolol Tartrate 50 MG Tablet 75 MG PO (21:06)
[2023-09-01] MEDS: Atorvastatin Calcium 10 MG Tablet PO (21:06)
[2023-09-01] MEDS: Tamsulosin HCl 0.4 MG Capsule 0.8 MG PO (21:06)
[2023-09-02 00:21] VITALS: BP 118/51; PULSE 72; RESP 20; TEMP 36.8; O2SAT 95
[2023-09-02] MEDS: Cefazolin 1 GM/50 ML BAG IV (00:24)
[2023-09-02 05:30] VITALS: BP 118/76; PULSE 68; RESP 18; TEMP 36.6; O2SAT 95
[2023-09-02] MEDS: Acetaminophen 500 MG Tablet 1000 MG PO ×2 (05:46→14:09)
[2023-09-02 06:50] LABS: Hematocrit 36.7 % (40-54); Hemoglobin 11.6 g/dL (13.0-16.5); Mean Corp Hgb Conc 31.6 g/dL (32-36); Mean Corpuscular Hgb 31.6 pg (27.0-32.0); Mean Platelet Vol. 9.7 fl (6.2-12.0); Platelet Count 171 K/mm3 (150-450); RBC Distribution Width CV 13.2 % (11.6-14.6); RBC Distribution Width SD 48.7 fl (35.1-43.9); Red Blood Count 3.67 M/mm3 (4.6-6.2); White Blood Count 14.2 K/mm3 (4.4-11.0)
[2023-09-02 07:25] LABS: Anion Gap 6 (5-15); BUN 20 mg/dL (7-18); BUN/Creat Ratio 17.9 RATIO (10-20); Calcium,Total 9.1 mg/dL (8.5-10.1); Chloride 109 mmol/L (98-107); Creatinine, Serum 1.12 mg/dL (0.70-1.30); EST Glomerular Filtration Rate 67 mL/min (>60); Est Glom Filt Rate - Afr Amer 81 mL/min (>60); Glucose 129 mg/dL (74-106); Potassium 4.8 mmol/L (3.5-5.1); Sodium Level 141 mmol/L (136-145)
[2023-09-02] MEDS: Aspirin 81 MG TAB.CHEW PO (09:12)
[2023-09-02] MEDS: dilTIAZem CD 120 MG Capsule PO (09:13)
[2023-09-02] MEDS: Polyethylene Glycol 3350 17 GM PACKET PO (09:13)
[2023-09-02] MEDS: Famotidine 20 MG Tablet PO (09:13)
[2023-09-02] MEDS: Potassium Chloride Oral Tablet 20 MEQ PO (09:13)
[2023-09-02] MEDS: Finasteride 5 MG Tablet PO (09:13)
[2023-09-02 09:14] VITALS: PULSE 80
[2023-09-02] MEDS: APIXABAN 5 MG TABLET PO (09:14)
[2023-09-02] MEDS: Metoprolol Tartrate 50 MG Tablet 75 MG PO (09:14)
[2023-09-02] MEDS: Furosemide 40 MG Tablet PO (09:14)
[2023-09-02] MEDS: Senna/Docusate Sodium 1 Tablet 2 TABLET PO (09:15)
[2023-09-02 09:28] VITALS: BP 124/76; PULSE 91; RESP 16; TEMP 36.7; O2SAT 95
--- NOTE | 2023-09-02 10:29 | PN.ORTHO_ITS ---
Subjective Subjective The patient was sitting in bedside chair upon examination with spouse present. Patient denies any chest pain, shortness of breath, dizziness, lightheadedness, nausea or vomiting, or calf pain. Pain is controlled on medications. No adverse overnight events. Patient has had some lower O2 saturation on room air. He did drop to 89% however when he is talking and working with his incentive spirometer patient ranges from 93% - 96%. He does have underlying sleep apnea which she does not tolerate a CPAP but does use 2 L of nasal oxygen at nighttime. Patient states he is having no knee pain at this time. He has tolerated physical therapy and is already worked with [facility]. They are wishing to proceed with home health physical therapy for the first 2 weeks postoperatively. Objective Data Objective Data Vital Signs: Vital Signs Temp Pulse Resp BP Pulse Ox O2 Del Method O2 Flow Rate 98.0 F 91 16 124/76 H 95 Room Air 2 09/02/23 09:28 09/02/23 09:28 09/02/23 09:28 09/02/23 09:28 09/02/23 09:28 09/02/23 09:28 09/02/23 05:30 Oxygen Flow Rate (L/min) 2 Oxygen Delivery Method Room Air Weight: 110 kg Body Mass Index (BMI) 38.0 Intake & Output: Intake and Output for Last 24 Hours 08/31/23 09/01/23 09/02/23 23:59 23:59 23:59 Intake Total 2622 / 3122 1150 / 1150 Output Total 200 / 875 1575 / 1575 Balance 2422 / 2247 -425 / -425 Lab / Micro Data 09/02/23 06:25 09/02/23 06:25 Labs: Laboratory Results - last 24 hr 09/02/23 06:25: WBC 14.2 H, RBC 3.67 L, Hgb 11.6 L, Hct 36.7 L, MCV 100.0 H, MCH 31.6, MCHC 31.6 L, RDW Std Deviation 48.7 H, RDW Coeff of Zackary 13.2, Plt Count 171, MPV 9.7, Sodium 141, Potassium 4.8, Chloride 109 H, Carbon Dioxide 26.0, Anion Gap 6, BUN 20 H, Creatinine 1.12, Estim Creat Clear Calc 50.00, Est GFR (MDRD) Af Amer 81, Est GFR (MDRD) Non-Af 67, BUN/Creatinine Ratio 17.9, Glucose 129 H, Calcium 9.1 Micro: Microbiology 08/19/23 13:52 Swab (Method) Nasal Screen MRSA/MSSA - Final Radiography Diagnostic Testing: Radiology Impression Knee X-Ray 09/01/23 10:45 IMPRESSION: Status post total knee replacement. There is good alignment. Postoperative soft tissue swelling. Electronically Signed: Brendan Garcia MD at 11:16 EST , Physical Exam Narrative Vital signs stable and afebrile. SCDs and ANDREA hose are in place bilaterally Patient is able to plantarflex and dorsiflex actively. Sensation is intact to light touch to saphenous, sural, superficial and deep peroneal, and tibial distribution. Main Mepilex dressing is clean dry and intact. Patient does have saturated distal pin site dressing. Nursing communication given to replace distal pin site dressing prior to discharge Negative Homans bilaterally, negative signs and symptoms of DVT. Const alert, oriented x3 and no apparent distress Assessment & Plan Assessment/Plan (1) Status post total left knee replacement: PLAN: 1. S/P left total knee arthroplasty POD #1 2. Continue Pain Medications: Tylenol and oxycodone 3. DVT Prophylaxis: Patient has resumed his Eliquis postoperatively in which he has chronic atrial fibrillation and past history of DVT. This will cover him for DVT prophylaxis. 4. PT/OT: Weightbearing as tolerated with walker. 5. H & H: 11.6/36.7, asymptomatic. Monitoring patient's hemoglobin and hematocrit with postoperative anemia without any intra operative complications. At this time no treatment is required. 6. Reactive leukocytosis: 14.2, Afebrile. Patient did receive Decadron intraoperatively. No clinical signs of infection. 7. Continue postoperative medical management per medicine: Case was discussed with medicine Dr. Beach and was given okay for discharge from medical standpoint. 8. Postoperative hypoxia at rest: Patient did drop down to 89% O2 saturation. However upon examination when talking and working with the incentive spirometer patient was able to manage and maintain from 93% - 96%. He does have sleep apnea which she does not tolerate a CPAP at home. He uses 2 L of nasal oxygen at nighttime. He also has the ability to monitor his O2 saturation at home. Recommend working on the incentive spirometer every 30 minutes for the first week postoperatively. Him and his voiced understanding and agreement. 9. Encouraged Incentive Spirometry 10. Disposition: Plan will be for probable discharge home this afternoon as long as patient is medically stable, tolerates physical therapy, and pain is well-controlled. Case management currently on board for setting up home health physical therapy. Patient would like his prescriptions E scribed to [facility] pharmacy. He will follow-up per postoperative instructions. Patient states he has MiraLAX at home that he will continue with postoperatively in which she has been taking routinely. Patient also has listed benign prostatic hyperplasia in which he has been able to urinate on his own today. He will continue with the Flomax as prescribed. Upon discharge patient will contact her office with any concerns or questions. I have reviewed the [place] [employer] Rx Reporting System (OARRS) report for this patient for refill pattern and other prescriber involvement as part of the appropriate surveillance for the provision of acute and chronic controlled medications. The report was requested and reviewed on the date of this entry an d was considered in the prescribing process. This dictation was created using voice recognition software. Phonetic and/or grammatical errors may exist.
--- NOTE | 2023-09-02 10:45 | DCINST_ITS ---
Discharge Instructions Diet Discharge Diet: No restrictions Activity Discharge Activity: May Not Drive (Must be able to walk 100 feet with use of a cane and be off all narcotics.) May shower in (days): 1 (Please turn dressing away from water. Okay to get wet as long as dressing is intact to skin.) Ice area for (Minutes): 20 (Every 1-2 hours while awake[address] Please place barrier between the skin and ice pack.) Weight Bearing Status: Weight bearing as tolerated Keep extremity elevated above heart level: Operative Extremity Dressing / Incision Call your doctor if your incision/area has: Continuous Slow Oozing, Sudden Increased Bleeding, Increased Pain/ Swelling, Increased Redness and Foul Smelling Discharge Call your doctor if you observe: Fever of 101 or Higher, Coldness, Increased Pain, Numbness or Tingling, Change in Color, Shortness of breath, Chest pain, Calf discomfort and Uncontrolled pain Remove Dressing in: 4 days (Okay to remove dressing on September 06, 2023) Additional Dressing/Incision Instructions:: Follow [facility] Post-op Instructions. Once postoperative dressing has been removed only use gentle soap and water over the incision. Do not use any ointments, Neosporin, salves, alcohol pads over the incision for 6 weeks postoperatively. Do not submerge underwater for 6 weeks postoperatively. Continue with ANDREA hose/elastic stockings for 2 weeks postoperatively. May remove at nighttime but needs to be placed back on the leg during the day. Do NOT use alcohol with narcotic pain medication. Do NOT make important decisions while taking narcotic medication. If you have problems with taking your medication (rash, itching, nausea, etc.) call the office at once. Follow Up Care Test Results: Test results from this visit will be discussed in further detail at your follow- up appointment, if applicable. Discharge Plan Admission Admit Date/Time: 09/01/23 06:59 Attending Provider: Jarod Lamb Primary Care Provider: Tomy Hernandez Consulting Providers: Javed [place] Discharge Orders/Prescriptions Prescriptions: New acetaminophen 500 mg Tablet 1,000 mg PO TID 14 Days Qty: 84 0RF Rx Instructions: Do not take more than 3000 mg Tylenol in a 24-hour period. oxycodone 5 mg Tablet 5 - 10 mg PO Q4H PRN PRN (Reason: Pain Score 4-10) 5 Days Qty: 42 0RF sennosides-docusate sodium [Stool Softener-Stimulant Laxat] 8.6-50 mg Tablet 2 tab PO BID 3 Days Qty: 0 0RF Rx Instructions: Take until first bowel movement, then as needed Continued tamsulosin [Flomax] 0.4 mg capsule,extended release 24hr 0.8 mg PO QHS (DME) Disability Placard See Rx Instructions .ROUTE .MEDSUPPLY Qty: 1 0RF Rx Instructions: Expires in 5 years finasteride 5 MG tablet 5 mg PO DAILY Patient Comments: prostate aspirin 81 mg Capsule 81 mg PO DAILY Fiber Gummies with Vitamin D3 2,500 mg- 500 unit tablet,chewable 2 tab PO DAILY polyethylene glycol 3350 [Miralax] 17 gram/dose powder 17 g PO DAILY apixaban 5 mg tablet 5 mg PO BID Qty: 60 0RF furosemide 40 mg tablet 40 mg PO DAILY Qty: 90 3RF diltiazem HCl 120 mg tablet 120 mg PO BID 90 Days Qty: 180 3RF metoprolol tartrate 75 mg tablet 75 mg PO BID Qty: 180 3RF potassium chloride [Klor-Con M20] 20 mEq tablet,ER particles/crystals 20 meq PO DAILY Qty: 90 3RF atorvastatin 10 mg tablet 10 mg PO QDAY Qty: 90 3RF Discontinued acetaminophen 325 mg Tablet 1,300 mg PO DAILY Referrals / Follow Up: Tomy Hernandez MD [Primary Care Provider] - Omer Maldonado PA-C [Med Staff - [facility]] - 09/16/23 2:00 pm Disposition Disposition (needs filled in before D/C Order can be placed): Home Health Service
--- NOTE | 2023-09-02 10:50 | CASEMGMT ---
Addendum entered by Michelle Damian 09/02/23 14:41: [facility] will start care tomorrow. Addendum entered by Michelle Damian 09/02/23 11:12: TC to [employer] to verify oxygen rx, left vm on line, awaiting returned call. Original Note: MARYCRUZ GRAHAM Assessment: Face to Face with pt for initial transition planning/care coordination assessment. MARYCRUZ GRAHAM introduced self and role at [facility], pt voices understanding and consents to assessment. Pt is A&O x4 and answers all questions appropriately at this time. Pt sitting up in chair in no distress. Care providers, pharmacy, and demographics verified/updated. Admitting Dx: TKR PCP:David Specialists:nicol Lamb; Drew pulrajendra; Miguel, cardio Preferred Pharmacy: [facility] Retail Insurance: [facility], [employer] Prescription Benefit: yes LNOK: Sarah Marrero, ; Kristina Marrero, dtr Living Arrangements: Pt lives with and dtr in a single story home with 5 steps to enter with a rail. Pt reports he was I in ADL's prior to surgery. Pt denies concerns at home. Transportation: Pt drives self and denies concerns with transportation. Pt family to transport him until he can drive again. DME:FWW x2, raised toilet seat, shower chair, walk in tub, oxygen at night through [facility] at 2L with a portable tank HHC/SNF: Denies hx of HHC, has been at [facility] in [place] Pt states no concerns with going home at time of dc. Pt is interested in HHC. Spoke with PA regarding this. Patient was provided a list of HHC providers including quality and resource use data and consistent with the patient?s preferred geographic region, medical needs, and insurance network were provided from the [facility] Guide. [facility] and [facility] in that order. Updated dc assistant at surgery and requested to send referral. Pt states no further concerns/needs. CM to follow. Advised pt to ask CM if any further question/concerns/needs arise, voices understanding. Pt Goal: Home with HHC Plan: Home with HHC
--- NOTE | 2023-09-02 11:19 | CASEMGMT ---
Addendum entered by Bart Toure 09/02/23 14:16: Pt has been accepted by [facility]. MARYCRUZ GRAHAM updated. Original Note: PT referral sent via [facility] to [facility] and [facility]. Roxanne Toure RN CM
--- NOTE | 2023-09-02 11:46 | CASEMGMT ---
Met with patient to complete JONES form. JONES form explained to patient who voiced understanding and signed form. Original form placed in pt?s chart and copy provided to?patient. Ilana Salvador, Discharge Planning Asst
[2023-09-02 11:55] VITALS: BP 111/59; PULSE 78; RESP 18; TEMP 36.7; O2SAT 96
--- NOTE | 2023-09-02 12:52 | CASEMGMT ---
Addendum entered by Michelle Damian 09/02/23 14:19: [facility] accepted pt for care. Pt is aware and is ready for dc. Original Note: [facility] declined pt for services.
== END 2023-09-02 14:40 | disposition home health service (06) ==
LOC: SDC 11:27 → MS3 11:27
PROVIDERS: Anesthesiology; Admitting Provider Specialist; PCP Internal Medicine; Referring Provider Specialist; Visit Provider Specialist
PROC: 0SRD0JZ Replacement of Left Knee Joint with Synthetic Substitute, Open Approach (ICD-10-PCS; CPT 27447; principal; 2023-09-01 08:15)
DX: M17.0 Bilateral primary osteoarthritis of knee (principal); M06.9 Rheumatoid arthritis, unspecified; J44.9 Chronic obstructive pulmonary disease, unspecified; I11.0 Hypertensive heart disease with heart failure; I50.9 Heart failure, unspecified; I48.20 Chronic atrial fibrillation, unspecified; F17.220 Nicotine dependence, chewing tobacco, uncomplicated; Z68.37 Body mass index [BMI] 37.0-37.9, adult; G47.30 Sleep apnea, unspecified; R25.1 Tremor, unspecified; M21.161 Varus deformity, not elsewhere classified, right knee; N40.1 Benign prostatic hyperplasia with lower urinary tract symptoms; R33.8 Other retention of urine; Z79.01 Long term (current) use of anticoagulants; E78.00 Pure hypercholesterolemia, unspecified; E66.9 Obesity, unspecified; M21.162 Varus deformity, not elsewhere classified, left knee; Z86.718 Personal history of other venous thrombosis and embolism; Z86.711 Personal history of pulmonary embolism; Z79.899 Other long term (current) drug therapy; Z79.82 Long term (current) use of aspirin
CPT/HCPCS: 27447; S2900; 01402; 36415; 71046; 73560; 80048; 82040; 82962; 83735; 85025; 85027; 87081; 88305; 88311; 94640; 94668; 96365; 96366; 97110; 97116; 97162; 97166; 97535; 99221; 99252; C1776; J7120; G0378; G0463; J2405; J3475

== ENCOUNTER → 2023-09-16 | Outpatient (CLI) | payer MEDICARE, OTHER, SELFPAY ==
[2021-12-15 12:04] VITALS: BMI 37.1
--- NOTE | 2023-09-16 15:35 | VDLE_ITS ---
Reason For Study: swelling Procedure LEFT This is a venous duplex using B-mode, color GSV is normal. flow and spectral Doppler. CFV is compressible, spontaneous, phasic, Exam performed in department. competent, and demonstrates normal The exam was abbreviated due to the COVID 19 augmentation. protocol. FV is compressible, spontaneous, phasic, The exam was diagnostic. competent and demonstrates normal A preliminary report was called and/or faxed augmentation. to Omer Maldonado. POP V is compressible, spontaneous, phasic, competent and demonstrates normal augmentation. T/P Trunk is compressible. PTV is compressible. LT PerV is compressible. VL/Venous Duplex US, Unilateral Interpretation Summary Deep veins of the left lower extremity are patent and compressible segmentally. There is no evidence of left lower extremity deep vein thrombosis. Valvular competence appears intac t within the proximal deep venous system on the left . The left great saphenous vein appears patent a nd compressible segmentally. Ordering Physician: Omer Maldonado Performed By: Rai Hagan, RVT
--- OUTSIDE RECORDS SUMMARY | 2023-09-16 18:02 | XMS RPT_ITS | CCD ---
Author Name Unknown Address [id number] [place] [address] Organization [facility] Care Team Providers Care Stone Unloader Name Role Phone Zane Orquidea Mckeon Unavailable Unavailable Zane Orquidea Mckeon Unavailable Unavailable Fariba Astudillo Unavailable Unavailable Allyssa Mas Unavailable Unavailable Allyssa Mas Unavailable Unavailable MD Jamir, Jeff Bui Unavailable MARYCRUZ Herndon, Niki Mckeon Unavailable Unavailjosé Hale RN, Ilana Verduzco Unavailable Unavailable Alexia JOEL, Ilana A Unavailable Unavailable Yasmin Brook M Unavailable Unavailable Brook Hoffman Unavailable Unavailable MARYCRUZ Herndon, Niki Mckeon Unavailable UnavailTomy Sheets MD Primary Care Provider [phone] Terence Alan RN Unavailable Unavailabl e Jaron, Gal F Unavailable Bran Russell Unavailable Tomy Hernandez MD Primary Care Provider [phone] Terence Alan RN Unavailable Unavailabl e Abdiisdrew, Gal F Unavailable Bran Russell Unavailable Gal Salmeron F Unavailable Bran Russell Unavailable TAMIKA DUTTA Attending Unavailable TOMY HERNANDEZ Primary Care Unavailable TAMIKA DUTTA Attending Unavailable TOMY HERNANDEZ Primary Care Unavailable TAMIKA DUTTA Attending Unavailable TOMY HERNANDEZ Primary Care Unavailable TAMIKA DUTTA Attending Unavailable TOMY HERNANDEZ Referring Unavailable TOMY HERNANDEZ Primary Care Unavailable KANCAROLYN'N V, REMINGTON Admitting Unavailable KANAA'N V, REMINGTON Attending Unavailable KANCAROLYN'N V, REMINGTON Referring Unavailable TOMY HERNANDEZ Primary Care Unavailable Tomy Hernandez MD Primary Care Provider [phone] Terence JOEL, Familia Mckeon Unavailable UnavailGal Cancino Unavailable Bran Russell Unavailable Bran Russell Unavailable Terence JOLE, Familia Mckeon Unavailable UnavailBran Vallecillo MD Unavailable Jaron HATCH, Gal Masterson Unavailable TOMY HERNANDEZ Primary Care Unavailable TOMY HERNANDEZ Attending Unavailable TOMY HERNANDEZ Referring Unavailable TOMY HERNANDEZ Primary Care Unavailable TOMY HERNANDEZ Attending Unavailable TOMY HERNANDEZ Primary Care Unavailable Allergies Allergy Classification Reported Allergen(s) Allergy Type Date of Onset Reaction(s) Facility (20 sources) lisinopril; Translations: [LISINOPRIL] drug allergy 10-15-2014 [facility] [employer] Work Phone: (16 sources) NKDA; Translations: [NKDA] allergy to substance 10-04-2015 [employer] Work Phone: Medications Current Medications Medication Drug Class(es) Dates Sig (Normalized) Sig (Original) mupirocin 0.02 mg/mg topical ointment (1 source) RNA Synthetase Inhibitor Antibacterial Start: 01-26-2022 End: 02-05-2022 mupirocin (BACTROBAN) 2 % ointment Indications: Wound of left lower extremity, initial encounter Apply to affected area three times daily for 10 days. 30 g 1 01/26/2022 02/05/2022 Active Completed/Discontinued Medications Medication Drug Class(es) Dates Sig (Normalized) Sig (Original) Acetaminophen (20 sources) acetaminophen (T YLENOL ARTHRITIS PAIN ORAL) Take 1,300 mg by mouth as needed. 0 Active Problems Active Problems Problem Classification Problem Date Documented Date Episodic/Chronic Cardiac dysrhythmias (20 sources) Persistent atrial fibrillation; Translations: [Atrial fibrillation] Onset: 09-27-2015 Resolved: 10-08-2015 10-08-2015 Chronic Chronic kidney disease (20 sources) Chronic kidney disease stage 3A ; Translations: [Stage 3a chronic kidney disease (HCC)] Onset: 03-18-2022 Chronic Chronic obstructive pulmonary disease and bronchiectasis (20 sources) Mild chronic obstructive pulmonary disease; Translations: [Pulmonary emphysema] Onset: 02-19-2016 07-08-2016 Chronic Disorders of lipid metabolism (20 sources) Hyperlipidemia; Translations: [Hyperlipidemia, unspecified] Onset: 01-06-2016 02-15-2017 Chronic Essential hypertension (20 sources) Hypertensive disorder; Translations: [Essential (primary) hypertension] Onset: 10-12-2013 10-04-2015 Chronic Heart valve disorders (20 sources) Nonrheumatic aortic (valve) stenosis; Translations: [Nonrheumatic tricuspid (valve) insufficiency] Onset: 10-04-2015 10-04-2015 Chronic Hyperplasia of prostate (20 sources) Benign prostatic hyperplasia; Translations: [Benign prostatic hyperplasia with lower urinary tract symptoms] Onset: 09-30-2011 Chronic Immunizations and screening for infectious disease (1 source) Vaccination needed; Translations: [Encounter for immunization] Episodic Open wounds of extremities (1 source) Disorder of lower extremity; Translations: [Unspecified open wound, left lower leg, initial encounter] Episodic Other nervous system disorders (2 sources) Finding of hand region; Translations: [Tremor, unspecified] Onset: 08-16-2023 08-16-2023 Episodic Other nutritional; endocrine; and metabolic disorders (19 sources) Body mass index (BMI) 35.0-35.9, adult; Translations: [Body mass index (BMI) 34.0-34.9, adult] Onset: 10-04-2015 10-04-2015 Chronic Other nutritional; endocrine; and metabolic disorders (4 sources) Body mass index (BMI) 34.0-34.9, adult; Translations: [Body mass index (BMI) 34.0-34.9, adult] Onset: 10-04-2015 10-08-2015 Chronic Other nutritional; endocrine; and metabolic disorders (2 sources) Body mass index (BMI) 38.0-38.9, adult; Translations: [Body mass index (BMI) 38.0-38.9, adult] Onset: 06-17-2017 06-17-2017 Chronic Other nutritional; endocrine; and metabolic disorders (20 sources) Obese class II; Translations: [Obesity, unspecified] Onset: 04-13-2019 04-13-2019 Chronic Other nutritional; endocrine; and metabolic disorders (1 source) Obese class I; Translations: [Obesity, unspecified] Onset: 07-17-2021 07-17-2021 Chronic Other nutritional; endocrine; and metabolic disorders (20 sources) Body mass index 30+ - obesity; Translations: [Obesity, unspecified] Onset: 07-17-2021 Chronic Other upper respiratory infections (20 sources) Chronic sinusitis; Translations: [Chronic sinusitis, unspecified] Onset: 03-18-2012 03-18-2012 Chronic Pulmonary heart disease (20 sources) Other secondary pulmonary hypertension; Translations: [Pulmonary arterial hypertension] Onset: 10-04-2015 10-04-2015 Chronic Residual codes; unclassified (20 sources) Hypoxia; Translations: [Idiopathic sleep related nonobstructive alveolar hypoventilation] Onset: 11-26-2020 09-16-2021 Chronic Unclassified (19 sources) Obstructive sleep apnea syndrome; Translations: [Body mass index (BMI) 34.0-34.9, adult] Onset: 10-04-2015 01-07-2016 Chronic Unclassified (12 sources) Drug therapy finding; Translations: [intermediate teacher (current) use of anticoagulants] Onset: 10-04-2015 10-04-2015 Unclassified (9 sources) Long-term drug therapy; Translations: [Other parts counterman (current) drug therapy] Onset: 02-15-2017 06-15-2017 Unclassified (2 sources) Chronic atrial fibrillation, unspecified; Translations: [Chronic atrial fibrillation (HCC)] Onset: 09-16-2021 Past or Other Problems Problem Classification Problem Date Documented Da te Episodic/Chronic Diabetes mellitus without complication (20 sources) Hyperglycemia; Translations: [Hyperglycemia, unspecified] Onset: 2 Episodic Other aftercare (6 sources) Other parts counterman (current) drug therapy; Translations: [Other parts counterman (current) drug therapy] Onset: 7 02-15-2017 Episodic Other and unspecified benign neoplasm (20 sources) Benign neoplasm of colon; Translations: [Benign neoplasm of colon, unspecified] Onset: 1 06-16-2011 Episodic Other and unspecified benign neoplasm (4 sources) Adenomatous polyp of colon ; Translations: [Benign neoplasm of colon, unspecified] Onset: 1 03-22-2023 Episodic Other circulatory disease (12 sources) Abnormal electrocardiogram [ECG] [EKG]; Translations: [Abnormal electrocardiogram [ECG] [EKG]] Onset: 6 10-08-2015 Episodic Other diseases of veins and lymphatics (20 sources) Venous insufficiency of leg; Translations: [Venous insufficiency (chronic) (peripheral)] Onset: 1 03-18-2022 Episodic Other gastrointestinal disorders (20 sources) Stool DNA-based colorectal cancer screening positive; Translations: [Other fecal abnormalities] Onset: 0 05-06-2020 Episodic Other lower respiratory disease (20 sources) Dyspnea; Translations: [Lung mass] Onset: 6 Resolved: 6 11-20-2015 Episodic Other lower respiratory disease (5 sources) Lung mass; Translations: [Solitary pulmonary nodule] Onset: 6 11-23-2015 Episodic Pulmonary heart disease (20 sources) Other pulmonary embolism without acute cor pulmonale; Translations: [Pulmonary embolism] Onset: 6 09-27-2015 Episodic Residual codes; unclassified (8 sources) Hypersomnia; Translations: [Hypersomnia, unspecified] Onset: 6 Resolved: 6 11-20-2015 Episodic Unclassified (20 sources) Family history of stroke; Translations: [Hypersomnia] Onset: 6 Resolved: 6 10-08-2015 Episodic Results Test Name Value Interpretation Reference Range Facil ity Vital Signs Date Time Vital Sign Value Performing Clinician Faci lity 08-16-2023 13:32-0500 Body weight 107.96 kg Tomy Hernandez MD Work Phone: [facility] 08-16-2023 13:32-0500 Diastolic blood pressure 68 mm[Hg] Tomy Hernandez MD Work Phone: [facility] 08-16-2023 13:32-0500 Heart rate 76 /min Tomy Hernandez MD Work Phone: [facility] 08-16-2023 13:32-0500 Respiratory rate 20 /min Tomy Hernandez MD Work Phone: [facility] 08-16-2023 13:32-0500 Systolic blood pressure 136 mm[Hg] Tomy Hernandez MD Work Phone: [facility] 03-22-2023 17:08-0400 Body height 165.7 cm Tomy Hernandez MD Work Phone: [facility] 03-22-2023 17:08-0400 Body weight 105.64 kg Tomy Hernandez MD Work Phone: [facility] 03-22-2023 17:08-0400 Diastolic blood pressure 76 mm[Hg] Tomy Hernandez MD Work Phone: [facility] 03-22-2023 17:08-0400 Respiratory rate 28 /min Tomy Hernandez MD Work Phone: [facility] 03-22-2023 17:08-0400 SaO2% (BldA) [Mass fraction] 97 % Tomy Hernandez MD Work Phone: [facility] 03-22-2023 17:08-0400 Systolic blood pressure 134 mm[Hg] Tomy Hernandez MD Work Phone: [facility] 06-30-2022 13:25-0400 Body weight 109.32 kg Tamika Dutta WHOLESALE AND RETAIL MERCHANT.SALES OPERATIONS DIRECTOR Work Phone: [facility] 06-30-2022 13:25-0400 Diastolic blood pressure 70 mm[Hg] Tamika Dutta WHOLESALE AND RETAIL MERCHANT.SALES OPERATIONS DIRECTOR Work Phone: [facility] 06-30-2022 13:25-0400 Heart rate 77 /min Tamika Dutta WHOLESALE AND RETAIL MERCHANT.SALES OPERATIONS DIRECTOR Work Phone: [facility] 06-30-2022 13:25-0400 SaO2% (BldA) [Mass fraction] 95 % Tamika Dutta WHOLESALE AND RETAIL MERCHANT.SALES OPERATIONS DIRECTOR Work Phone: [facility] 06-30-2022 13:25-0400 Systolic blood pressure 130 mm[Hg] Tamika Dutta SALES OPERATIONS DIRECTOR Work Phone: [facility] 03-18-2022 09:13-0400 Body temperature 97.2 [degF] Tomy Hernandez MD Work Phone: [facility] 03-18-2022 09:13-0400 Body weight 108.95 kg Tomy Hernandez MD Work Phone: [facility] 03-18-2022 09:13-0400 Diastolic blood pressure 64 mm[Hg] Tomy Hernandez MD Work Phone: [facility] 03-18-2022 09:13-0400 Heart rate 72 /min Tomy Hernandez MD Work Phone: [facility] 03-18-2022 09:13-0400 Respiratory rate 18 /min Tomy Hernandez MD Work Phone: [facility] 03-18-2022 09:13-0400 Systolic blood pressure 120 mm[Hg] Tomy Hernandez MD Work Phone: [facility] 01-26-2022 15:39-0400 Body temperature 99.1 [degF] Javier Starr MD Work Phone: [facility] 01-26-2022 15:39-0400 Body weight 109.14 kg Javier Starr MD Work Phone: [facility] 01-26-2022 15:39-0400 Diastolic blood pressure 68 mm[Hg] Javier Starr MD Work Phone: [facility] 01-26-2022 15:39-0400 Heart rate 100 /min Javier Starr MD Work Phone: [facility] 01-26-2022 15:39-0400 Respiratory rate 18 /min Javier Starr MD Work Phone: [facility] 01-26-2022 15:39-0400 SaO2% (BldA) [Mass fraction] 94 % Javier Starr MD Work Phone: [facility] 01-26-2022 15:39-0400 Systolic blood pressure 140 mm[Hg] Javier Starr MD Work Phone: [facility] 12-30-2021 13:47-0400 Body height 168.9 cm Tamika Ineman WHOLESALE AND RETAIL MERCHANT.SALES OPERATIONS DIRECTOR Work Phone: [facility] 12-30-2021 13:47-0400 Body weight 101.61 kg Tamika Inekayden WHOLESALE AND RETAIL MERCHANT.SALES OPERATIONS DIRECTOR Work Phone: [facility] 12-30-2021 13:47-0400 Diastolic blood pressure 64 mm[Hg] Tamika Ineman WHOLESALE AND RETAIL MERCHANT.SALES OPERATIONS DIRECTOR Work Phone: [facility] 12-30-2021 13:47-0400 Heart rate 78 /min Tamika Ineman WHOLESALE AND RETAIL MERCHANT.SALES OPERATIONS DIRECTOR Work Phone: [facility] 12-30-2021 13:47-0400 Respiratory rate 18 /min Tamika Ineman WHOLESALE AND RETAIL MERCHANT.SALES OPERATIONS DIRECTOR Work Phone: [facility] 12-30-2021 13:47-0400 SaO2% (BldA) [Mass fraction] 97 % Tamika Ineman WHOLESALE AND RETAIL MERCHANT.SALES OPERATIONS DIRECTOR Work Phone: [facility] 12-30-2021 13:47-0400 Systolic blood pressure 138 mm[Hg] Tamika Ineman WHOLESALE AND RETAIL MERCHANT.SALES OPERATIONS DIRECTOR Work Phone: [facility] 11-07-2020 05:03-0500 SaO2% (BldA) [Mass fraction] 94 % [facility] Portal Encounters Encounter Date Encounter Type Care Provider Facility Start: 08-16-2023 End: 08-16-2023 ambulatory TOMY HERNANDEZ Facility:[facility] Start: 08-16-2023 End: 08-16-2023 Patient encounter procedure Tomy Hernandez MD Work Phone: [facility] Procedures Date Procedure Procedure Detail Performing Clinician Start: 03-18-2022 Hemoglobin A1c/Hemoglobin.total in Blood Tomy Hernandez MD Work Phone: Start: 09-16-2021 Adult depression scr eening assessment Ngozi Older [employer]OLESALE AND RETAIL MERCHANT.SALES OPERATIONS DIRECTOR Work Phone: Start: 08-24-2017 End: 08-24-2017 *Hepatic Function Panel Jeff Bowie MD Work Phone: Start: 08-24-2017 End: 08-24-2017 Lipid 1996 panel - Serum or Plasma Jeff Bowie MD Work Phone: Start: 06-17-2017 End: 06-17-2017 MEAGHAN Bowie MD Work Phone: Start: 06-17-2017 End: 06-17-2017 Follow Up Appt 6 months Jeff Bowie MD Work Phone: Start: 06-17-2017 End: 06-17-2017 Dietary management education, guidance, and counseling Brook Hoffman Start: 03-18-2017 End: 03-18-2017 Dietary management education, guidance, and counseling Ilana Hale RN Start: 02-15-2017 End: 02-24-2017 *Hepatic Function Panel Jeff Bowie MD Work Phone: Start: 02-15-2017 End: 02-15-2017 MEAGHAN Bowie MD Work Phone: Start: 02-15-2017 End: 02-15-2017 Follow Up Appt 4 months Jeff Bowie MD Work Phone: Start: 02-15-2017 End: 02-24-2017 Lipid 1996 panel - Serum or Plasma Jeff Bowie MD Work Phone: Start: 02-15-2017 End: 02-15-2017 Dietary management education, guidance, and counseling Niki Herndon RN Start: 02-15-2017 End: 02-24-2017 *Hepatic Function Panel Jeff Bowie MD Work Phone: Start: 02-15-2017 End: 02-15-2017 MEAGHAN Bowie MD Work Phone: Start: 02-15-2017 End: 02-15-2017 Follow Up Appt 4 months Jeff Bowie MD Work Phone: Start: 02-15-2017 End: 02-24-2017 Lipid panel [AGGREGATE] Jeff Bowie MD Work Phone: Start: 12-22-2016 End: 03-12-2017 BWA Erica Warner C WEIGHT GUESSER Work Phone: Start: 12-22-2016 End: 03-12-2017 Follow Up Appt 3 months Erica S Jose er SALES OPERATIONS DIRECTOR Work Phone: Start: 12-22-2016 End: 03-12-2017 Pulmonary Function Test - complete Erica S Warner SALES OPERATIONS DIRECTOR Work Phone: Start: 12-22-2016 End: 03-12-2017 Pulmonary stress test/simple Erica S Warner SALES OPERATIONS DIRECTOR Work Phone: Start: 12-22-2016 End: 03-12-2017 BWA Erica Arguello Warner C WEIGHT GUESSER Work Phone: Start: 12-22-2016 End: 03-12-2017 Follow Up Appt 3 months Erica S Jose er SALES OPERATIONS DIRECTOR Work Phone: Start: 12-22-2016 End: 03-12-2017 Pulmonary Function Test - complete Erica S Warner SALES OPERATIONS DIRECTOR Work Phone: Start: 12-22-2016 End: 03-12-2017 Pulmonary stress test/simple Erica S Warner SALES OPERATIONS DIRECTOR Work Phone: Start: 11-14-2016 End: 12-02-2016 *Creatinine, Serum Bran Osman Drew Work Phone: Start: 11-14-2016 End: 12-02-2016 *Creatinine, Serum Bran W Drew Work Phone: Start: 10-14-2016 End: 02-15-2017 *Hepatic Function Panel Jeff Bowie MD Work Phone: Start: 10-14-2016 End: 02-15-2017 Lipid 1996 panel - Serum or Plasma Jeff Bowie MD Work Phone: Start: 10-14-2016 End: 02-15-2017 *Hepatic Function Panel Jeff Bowie MD Work Phone: Start: 10-14-2016 End: 02-15-2017 Lipid panel [AGGREGATE] Jeff Bowie MD Work Phone: Start: 08-03-2016 End: 08-03-2016 MEAGHAN Bowie MD Work Phone: Start: 08-03-2016 End: 01-27-2017 Echocardiography Jeff Bowie MD Work Phone: Start: 08-03-2016 End: 08-03-2016 Follow Up Appt 6 months Jeff Bowie MD Work Phone: Start: 08-03-2016 End: 08-03-2016 DJN Jeff Bowie MD Work Phone: Start: 08-03-2016 End: 01-27-2017 Echocardiography Jeff Bowie MD Work Phone: Start: 08-03-2016 End: 08-03-2016 Follow Up Appt 6 months Jeff Bowie MD Work Phone: Start: 05-19-2016 End: 06-03-2016 *BMP Erica Cast WEIGHT GUESSER Work Phone: Start: 05-19-2016 End: 06-03-2016 BWA Erica Cast WEIGHT GUESSER Work Phone: Start: 05-19-2016 End: 06-03-2016 Ct thorax w/contrast material Erica Warner SALES OPERATIONS DIRECTOR Work Phone: Start: 05-19-2016 End: 06-03-2016 Follow Up Appt 1 month Erica romero SALES OPERATIONS DIRECTOR Work Phone: Start: 05-19-2016 End: 06-03-2016 *BMP Erica Warner C WEIGHT GUESSER Work Phone: Start: 05-19-2016 End: 06-03-2016 BWA Erica Warner C WEIGHT GUESSER Work Phone: Start: 05-19-2016 End: 06-03-2016 Ct thorax w/dye Erica Warner C WEIGHT GUESSER Work Phone: Start: 05-19-2016 End: 06-03-2016 Follow Up Appt 1 month Erica romero SALES OPERATIONS DIRECTOR Work Phone: Start: 02-19-2016 End: 02-19-2016 Demo&/eval of pt utiliz aersl gen/neb/inhlr/ip Bran Russell Work Phone: Start: 02-19-2016 End: 02-19-2016 Evaluate pt use of inhaler Bran Greenesadiq r Work Phone: Start: 02-12-2016 End: 06-19-2016 Ct thorax w/contrast material Bran Parra michellelefty Work Phone: Start: 02-12-2016 End: 06-19-2016 Ct thorax w/dye Bran Greeneur Work Phone: Start: 02-11-2016 End: 06-03-2016 Ct angiography chest w/contrast/noncontrast Erica Warner CNP Work Phone: Start: 02-11-2016 End: 06-03-2016 Ct angiography, chest Erica Warner CNP Work Phone: Start: 01-07-2016 End: 01-07-2016 MEAGHAN Bowie MD Work Phone: Start: 01-07-2016 End: 02-12-2016 Echocardiography Jeff Bowie MD Work Phone: Start: 01-07-2016 End: 01-07-2016 Follow Up Appt 6 months Jeff Bowie MD Work Phone: Start: 01-07-2016 End: 01-07-2016 MEAGHAN Bowie MD Work Phone: Start: 01-07-2016 End: 02-12-2016 Echocardiography Jeff Bowie MD Work Phone: Start: 01-07-2016 End: 01-07-2016 Follow Up Appt 6 months Jeff Bowie MD Work Phone: Start: 11-20-2015 End: 06-19-2016 Complete sleep workup (PSG,CPAP as indicated) & Follow up Bran Russell Work Phone: Start: 11-20-2015 End: 06-19-2016 Follow Up Appt 3 months Bran Russell Work Phone: Start: 11-20-2015 End: 06-19-2016 Pulmonary Function Test - complete Bran Russell Work Phone: Start: 11-20-2015 End: 06-19-2016 Pulmonary stress test/simple Bran vogt Work Phone: Start: 11-20-2015 End: 06-19-2016 Complete sleep workup (PSG,CPAP as indicated) & Follow up Bran Russell [employer] Phone: Start: 11-20-2015 End: 06-19-2016 Follow Up Appt 3 months Bran Russell Work Phone: Start: 11-20-2015 End: 06-19-2016 Pulmonary Function Test - complete Bran Russell Work Phone: Start: 11-20-2015 End: 06-19-2016 Pulmonary stress test/simple Bran vogt Work Phone: Start: 10-30-2015 End: 11-15-2015 Cardioversion Jeff Bowie MD Work Phone: Start: 10-30-2015 End: 11-15-2015 Transesophageal echocardiogram (FADIA) Jeff Bowie MD Work Phone: Start: 10-30-2015 End: 11-15-2015 Cardioversion Jeff Bowie MD Work Phone: Start: 10-30-2015 End: 11-15-2015 Transesophageal echocardiogram (FADIA) Jeff Bowie MD Work Phone: Start: 10-23-2015 End: 11-11-2015 *BMP Jeff Bowie MD Work Phone: Start: 10-23-2015 End: 11-11-2015 *BMP Jeff Bowie MD Work Phone: Start: 10-08-2015 End: 10-14-2015 *Hepatic Function Panel Jeff Bowie MD Work Phone: Start: 10-08-2015 End: 10-08-2015 LORINN Jeff Bowie MD Work Phone: Start: 10-08-2015 End: 10-08-2015 Ecg routine ecg w/least 12 lds w/i&r Jeff Bowie MD Work Phone: Start: 10-08-2015 End: 10-08-2015 Follow Up Appt 3 months Jeff Bowie MD Work Phone: Start: 10-08-2015 End: 10-14-2015 Lipid 1996 panel - Serum or Plasma Jeff Bowie MD Work Phone: Start: 10-08-2015 End: 10-15-2015 Nuclear stress test -Lexiscan Jeff brink MD Work Phone: Start: 10-08-2015 End: 10-14-2015 *Hepatic Function Panel Jeff Bowie MD Work Phone: Start: 10-08-2015 End: 10-08-2015 MEAGHAN Bowie MD Work Phone: Start: 10-08-2015 End: 10-08-2015 Electrocardiogram, complete Jeff newell MD Work Phone: Start: 10-08-2015 End: 10-08-2015 Follow Up Appt 3 months Jeff Bowie MD Work Phone: Start: 10-08-2015 End: 10-14-2015 Lipid panel [AGGREGATE] Jeff Bowie MD Work Phone: Start: 10-08-2015 End: 10-15-2015 Nuclear stress test -Lexiscan Jeff brink MD Work Phone: Plan of Treatment Date Care Activity Detail Author Start: 01-27-2032 Urine microalbumin profile [facility] Start: 03-24-2026 Diabetes Screening Diabetes Screenin g [facility] Start: 06-12-2025 DIABETES SCREEN DIABETES SCREEN [facility] Start: 03-18-2025 DIABETES SCREEN DIABETES SCREEN [facility] Start: 03-10-2025 DIABETES SCREEN DIABETES SCREEN [facility] Start: 08-16-2024 Annual PCP Team Sheet Metal Engineer raul Disease Visit Annual PCP Team Chronic Disease Visit [facility] Start: 08-05-2024 DIABETES SCREEN DIABETES SCREEN [facility] Start: 03-24-2024 Serum Creatinine Serum Creatinine Cl [facility] Start: 03-22-2024 ANNUAL PCP TEAM SUPERVISOR BURLING AND JOINING RAUL DISEASE VISIT ANNUAL PCP TEAM CHRONIC DISEASE VISIT [facility] Start: 03-22-2024 COVID-19 VACCINE (6 - Pfizer series) COVID-19 VACCINE (6 - Pfizer series) [facility] Immunizations Immunization Date Immunization Notes Care Provider Fa cility 06-18-2022 COVID-19 booster vaccine, age 12+ yr, bivalent (PFIZER-BIONTECH) Tamika Dutta WHOLESALE AND RETAIL MERCHANT.SALES OPERATIONS DIRECTOR Work Phone: [facility] 06-04-2022 influenza, high dose seasonal, preservative-free Tamika Dutta WHOLESALE AND RETAIL MERCHANT.SALES OPERATIONS DIRECTOR Work Phone: [facility] 06-04-2022 influenza virus vaccine, unspecified formulation Tomy Hernandez MD Work Phone: [facility] 02-02-2022 COVID-19 vaccine, ag e 12+ yr (PFIZER-BIONTECH - PURPLE TOP) Terence Alan RN [facility] 01-26-2022 tetanus toxoid, redu familia diphtheria toxoid, and acellular pertussis vaccine, adsorbed Javier Starr MD Work Phone: [facility] 06-04-2021 influenza, high-dose , quadrivalent vaccine (FLUZONE HIGH DOSE QUADRIVALENT) Ngozi Older WHOLESALE AND RETAIL MERCHANT.SALES OPERATIONS DIRECTOR Work Phone: [facility] 01-08-2021 COVID-19 vaccine, ag e 12+ yr (PFIZER-BIONTECH - PURPLE TOP) Ngozi Older WHOLESALE AND RETAIL MERCHANT.SALES OPERATIONS DIRECTOR Work Phone: [facility] 12-18-2020 COVID-19 vaccine, ag e 12+ yr (PFIZER-BIONTECH - PURPLE TOP) Ngozi Older WHOLESALE AND RETAIL MERCHANT.SALES OPERATIONS DIRECTOR Work Phone: [facility] 06-18-2020 influenza (aIIV4) vaccine, age 65+ yr, quadrivalent, PF (FLUAD QUADRIVALENT) Ngozi Older WHOLESALE AND RETAIL MERCHANT.SALES OPERATIONS DIRECTOR Work Phone: [facility] Work Phone: 06-16-2019 influenza, high dose seasonal, preservative-free Ngozi Older WHOLESALE AND RETAIL MERCHANT.SALES OPERATIONS DIRECTOR Work Phone: [facility] [facility] Work Phone: 07-06-2018 influenza, high dose seasonal, preservative-free Ngozi Older [employer] Work Phone: [facility] 07-06-2018 influenza, injectabl e, quadrivalent, preservative free Ngozi Older [employer].[facility] Work Phone: [facility] Work Phone: 08-19-2017 influenza, high dose seasonal, preservative-free Ngozi Older [employer].[facility] Work Phone: [facility] Work Phone: 06-23-2016 influenza, high dose seasonal, preservative-free Ngozi Older [employer] DIRECT[employer] Work Phone: [facility] Work Phone: 07-09-2015 influenza, seasonal, injectable Ngozi Older [employer] DIRECTOR Work Phone: [facility] Work Phone: 04-08-2015 pneumococcal conjuga te vaccine, 13 valent Ngozi Older [employer] DIRECTOR Work Phone: [facility] 10-12-2013 influenza virus vaccine, unspecified formulation Ngozi Older [employer]PER[employer] DIRECTOR Work Phone: [facility] 07-16-2012 pneumococcal polysaccharide vaccine, 23 valent Ngozi Older [employer] DIRECTOR Work Phone: [facility] 07-15-2012 influenza virus vaccine, unspecified formulation Ngozi Older [employer] DIRECTOR Work Phone: [facility] 03-25-2005 tetanus and diphther ia toxoids, adsorbed, preservative free, for adult use (2 Lf of tetanus toxoid and 2 Lf of diphtheria toxoid) 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 2019 Medicare [id number] 2019 Unknown MMO MMO MEDICARE SUPPLEMENT [id number] 2019-Present [phone] [address] [place] [address] Indemnity [id number] 2009 Medicare MEDICARE MEDICAR E A AND B [id number] 2009-Present [phone] [place] [address] Medicare [id number] 2009 Medicare MEDICARE MEDICAR E A AND B [id number] 2009-Present [phone] [place] [address] Medicare [id number] 2009 Medicare [id number] Social History Date Type Detail Facility Start: 03-07-2013 End: 06-22-2022 Tobacco smoking status NHIS Ex-smoker [facility] Work Phone: End: 06-24-2011 History of tobacco use Current smoker [facility] Work Phone: End: 06-24-2011 History of tobacco use Cigarette Smoker [facility] Work Phone: Start: 03-07-2013 End: 03-18-2023 Cigarettes smoked current (pack per day) - Reported 1.5 [facility] Start: 03-07-2013 End: 06-22-2022 Tobacco use and exposure Former smokeless tobacco user [facility] Work Phone: End: 06-24-2012 History of tobacco use User of smokeless tobacco [facility] Work Phone: Start: 09-16-2021 End: 03-22-2023 Alcohol intake Current non-drinker of alcohol (finding) [facility] Start: 09-16-2021 End: 09-17-2022 History SDOH Alcohol Frequency 1 [facility] Start: 04-05-2020 End: 09-17-2022 History SDOH Alcohol Std Drinks 98 [facility] Start: 04-05-2020 End: 09-17-2022 History SDOH Social Connections Phone 5 [facility] Start: 04-05-2020 End: 09-17-2022 History SDOH Social Connections Membership 2 [facility] Start: 04-05-2020 End: 09-17-2022 History SDOH Social Connections Living 3 [facility] Start: 09-16-2021 End: 09-17-2022 History SDOH Physical Activity DPW 0 [facility] Start: 04-05-2020 Education 12 [facility] Start: 1945 Sex Assigned At Male [facility] Start: 12-20-2021 End: 06-30-2022 Exposure to SARS-CoV-2 (event) Not sure [facility] Start: 03-18-2023 End: 03-22-2023 Social connection and isolation panel [facility] Frequency of Communication with Friends and Family Not on file [facility] Do you belong to any clubs or organizations such as jainism groups, unions, fraternal or athletic groups, or school groups? No [facility] Are you now , , , , never or living with a partner? [facility] How often to you hav e a drink containing alcohol? Never [facility] Do you feel stress - tense, restless, nervous, or anxious, or unable to sleep at night because your mind is troubled all the time - these days [OSQ] Not at all [facility] (I/We) worried wheth er (my/our) food would run out before (I/we) got money to buy more. Never true [facility] Start: 09-10-2021 Gender identity Identifies as male gender (finding) [facility] Start: 06-23-2022 Sexual orientation Heterosexual (finding) [facility] Medical Equipment Procedure Code Equipment Code Equipment Origin al Text Equipment Identifier Dates Ebe-Sr-[id number] Implant - [id number] Start: 07-10-2021 Device Angio-Sea l Vip Bondek-Plus 8fr .038in Polyglyd 70cm Closure - [id number] Start: 07-10-2021 Goals Date Patient Goal Desired Activity /State Personal health goal Clinical Notes 10-20-2020 to 08-16-2023 Tomy Hernandez MD - 08/16/2023 1:45 PM Familia Li RN - 08/12/2023 12:38 PM Tomy Unger MD - 03/22/2023 5:51 PM EDTTomy Hernandez MD - 03/22/2023 5:28 PM EDT Note Date & Type Note Facility 08-16-2023 Note HNO ID: [id number] Author: Tomy Hernandez MD Service: ? Author Type: Physician Type: Progress Notes Filed: 08/16/2023 5:50 PM Note Text: This note was created using AirMediariter. Subjective Patient presents with: Pre-Op Exam Consultation requested by Dr. Lamb for an opinion regarding preoperative examination. My final recommendations will be communicated back to the requesting physician by way of shared Medical record or letter to requesting physician via US mail. Javier Degroot is a 77 year old male scheduled for left total knee arthroplasty 2022. His atrial fibrillation and valvular heart disease was stable. His head of biology completed a stress test in April, and cleared him. His COPD and pulmonary hypertension were stable, and pulmonary cleared him for surgery. [facility] He is scheduled for his PAT tests next week. He will see cardiology next week. Review of Systems Constitutional: Negative for chills, diaphoresis, fatigue, fever and unexpected weight change. Respiratory: Negative for cough, shortness of breath and wheezing. Cardiovascular: Positive for leg swelling. Negative for chest pain and palpitations. Gastrointestinal: Negative for blood in stool, constipation and diarrhea. Genitourinary: Negative for dysuria and hematuria. Neurological: Positive for tremors. Negative for numbness and headaches. Psychiatric/Behavioral: Negative for dysphoric mood. 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 Left 2015. COLSC FLX W/RMVL OF TUMOR POLYP LESION SNARE TQ 06/16/2011 F COLONOSCOPY WITH BIOPSY 12/02/2022 LEFT HEART CATH,PERCUTANEOUS 05/06/2021 PAST SURGICAL HISTORY OF 07/14/2012 closure of oroantral fistula (sinuses) SGMDSC FLX RMVL RYAN POLYP/OTH LES SNARE TQ 07/23/2011 SIGMOIDOSCOPY FLX DX W/COLLJ SPEC BR/WA IF PFRMD 12/14/2011 Sigmoidoscopy, flexible TAVR/ROSETTE PERCUT 07/10/2021 femoral Social History Tobacco Use Smoking status: Former Packs/day: 1.50 Years: 50.00 Additional pack years: 0.00 Total pack years: 75.00 Types: Cigarettes Quit date: 06/24/2011 Years since quittin.1 Smokeless tobacco: Former Quit date: 06/24/2012 Substance Use Topics Alcohol use: No Drug use: No ALLERGIES Allergen Reactions Lisinopril Cough Current Outpatient Medications Medication Sig GUAIFENESIN ORAL Take 400 mg by mouth once daily. metoprolol tartrate 75 mg tab Take 1 tablet by mouth twice daily. potassium chloride ER (KLOR-CON) 20 mEq tablet Take 1 tablet by mouth once daily. tamsulosin (FLOMAX) 0.4 mg Take 2 capsules by mouth daily at bedtime. finasteride (PROSCAR) 5 mg tablet Take 1 tablet by mouth once daily. atorvastatin (LIPITOR) 10 mg tablet Take 10 mg by mouth once daily. acetaminophen (TYLENOL ARTHRITIS PAIN ORAL) Take 1,300 mg by mouth as needed. dilTIAZem (CARDIZEM) 120 mg tablet Take 1 tablet by mouth twice daily. aspirin 81 mg chewable tablet Take 1 tablet by mouth once daily. Docusate Sodium 250 mg capsule Take 250 mg by mouth twice daily. furosemide (LASIX) 40 mg tablet Take 40 mg by mouth once daily. Per [facility] decreased to once daily. apixaban (ELIQUIS) 5 mg tab tab(s) Take 1 tablet by mouth twice daily. No current facility-administered medications for this visit. Objective BP 136/68 (BP Site: Left Arm, BP Position: Sitting, BP Cuff Size: Large Adult) Pulse 76 Resp 20 Wt 108 kg (238 lb) BMI 39.30 kg/m? Physical Exam Constitutional: General: He is not in acute distress. Appearance: He is not ill-appearing. HENT: Head: Normocephalic. Eyes: General: No scleral icterus. Extraocular Movements: Extraocular movements intact. Conjunctiva/sclera: Conjunctivae normal. Neck: Vascular: No JVD. Cardiovascular: Rate and Rhythm: Normal rate. Rhythm irregular. Heart sounds: S1 normal and S2 normal. Murmur heard. Systolic murmur is present with a grade of 1/6. Pulmonary: Effort: No respiratory distress. Breath sounds: Normal breath sounds. No wheezing or rales. Abdominal: Palpations: Abdomen is soft. Tenderness: There is no abdominal tenderness. Musculoskeletal: Right lower le+ Pitting Edema present (more content not included)... [facility] 08-16-2023 History of Presen t illness Narrative This note was created using AirMediariter. Subjective Patient presents with: Pre-Op Exam Consultation requested by Dr. Lamb for an opinion regarding preoperative examination. My final recommendations will be communicated back to the requesting physician by way of shared Medical record or letter to requesting physician via US mail. Javier Degroot is a 77 year old male scheduled for left total knee arthroplasty 2022. His atrial fibrillation and valvular heart disease was stable. His head of biology completed a stress test in April, and cleared him. His COPD and pulmonary hypertension were stable, and pulmonary cleared him for surgery. He will get instructions [facility] He is scheduled for his PAT tests next week. He will see cardiology next week. Review of Systems Constitutional: Negative for chills, diaphoresis, fatigue, fever and unexpected weight change. Respiratory: Negative for cough, shortness of breath and wheezing. Cardiovascular: Positive for leg swelling. Negative for chest pain and palpitations. Gastrointestinal: Negative for blood in stool, constipation and diarrhea. Genitourinary: Negative for dysuria and hematuria. Neurological: Positive for tremors. Negative for numbness and headaches. Psychiatric/Behavioral: Negative for dysphoric mood. 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 Left 2016. COLSC FLX W/RMVL OF TUMOR POLYP LESION SNARE TQ 06/16/2011 F COLONOSCOPY WITH BIOPSY 12/02/2022 LEFT HEART CATH,PERCUTANEOUS 05/06/2021 PAST SURGICAL HISTORY OF 07/14/2012 closure of oroantral fistula (sinuses) SGMDSC FLX RMVL RYAN POLYP/OTH LES SNARE TQ 07/23/2011 SIGMOIDOSCOPY FLX DX W/COLLJ SPEC BR/WA IF PFRMD 12/14/2011 Sigmoidoscopy, flexible TAVR/ROSETTE PERCUT 07/10/2021 femoral Social History Tobacco Use Smoking status: Former Packs/day: 1.50 Years: 50.00 Additional pack years: 0.00 Total pack years: 75.00 Types: Cigarettes Quit date: 06/24/2011 Years since quittin.1 Smokeless tobacco: Former Quit date: 06/24/2012 Substance Use Topics Alcohol use: No Drug use: No ALLERGIES Allergen Reactions Lisinopril Cough Current Outpatient Medications Medication Sig GUAIFENESIN ORAL Take 400 mg by mouth once daily. metoprolol tartrate 75 mg tab Take 1 tablet by mouth twice daily. potassium chloride ER (KLOR-CON) 20 mEq tablet Take 1 tablet by mouth once daily. tamsulosin (FLOMAX) 0.4 mg Take 2 capsules by mouth daily at bedtime. finasteride (PROSCAR) 5 mg tablet Take 1 tablet by mouth once daily. atorvastatin (LIPITOR) 10 mg tablet Take 10 mg by mouth once daily. acetaminophen (TYLENOL ARTHRITIS PAIN ORAL) Take 1,300 mg by mouth as needed. dilTIAZem (CARDIZEM) 120 mg tablet Take 1 tablet by mouth twice daily. aspirin 81 mg chewable tablet Take 1 tablet by mouth once daily. Docusate Sodium 250 mg capsule Take 250 mg by mouth twice daily. furosemide (LASIX) 40 mg tablet Take 40 mg by mouth once daily. Per [facility] decreased to once daily. apixaban (ELIQUIS) 5 mg tab tab(s) Take 1 tablet by mouth twice daily. No current facility-administered medications for this visit. Objective BP 136/68 (BP Site: Left Arm, BP Position: Sitting, BP Cuff Size: Large Adult) Pulse 76 Resp 20 Wt 108 kg (238 lb) BMI 39.30 kg/m Physical Exam Constitutional: General: He is not in acute distress. Appearance: He is not ill-appearing. HENT: Head: Normocephalic. Eyes: General: No scleral icterus. Extraocular Movements: Extraocular movements intact. Conjunctiva/sclera: Conjunctivae normal. Neck: Vascular: No JVD. Cardiovascular: Rate and Rhythm: Normal rate. Rhythm irregular. Heart sounds: S1 normal and S2 normal. Murmur heard. Systolic murmur is present with a grade of 1/6. Pulmonary: Effort: No respiratory distress. Breath sounds: Normal breath sounds. No wheezing or rales. Abdominal: Palpations: Abdomen is soft. Tenderness: There is no abdominal tenderness. Musculoskeletal: Right lower le+ Pitting Edema present. Left lower le+ Pitting Edema present. Neurological: General: No focal deficit present. Mental Status: He is alert. Sensory: No sensory deficit. Motor: Tremor present. No weakness. Comments: Mild resting tremor of left hand and forearm. Assessment and Plan 1. Preoperative examination - ICD9: V72.84, ICD10: Z01.818 (primary diagnosis) - Patient is optimized for surgery. - Per ACS NSQIP surgical risk calculator, he is ABOVE AVERAGE risk for all outcomes. - Close perioperative monitoring with hospital medicine is recommended. 2. Chronic atrial fibrillation (HCC) - ICD9: 427.31, ICD10: I48.20 Controlled. Anticoagulation instructions per cardiology. I anticipate apixiban will be held 48 hours prior to procedure and resumed postoperatively. 3. Centrilobular emphysema (HCC) - ICD9: 492.8, ICD10: J43.2 Stable. 4. Nocturnal hypoxia - ICD9: 327.24, ICD10: G47.34 Stable 5. S/P TAVR (transcatheter aortic valve replacement) - ICD9: V43.3, ICD10: Z95.2 Stable. 6. Tremor of left hand - ICD9: 781.0, ICD10: R25.1 Chronic since Covid hospitalization 2020. Observe only. No functional impact noted. Tomy Hernandez MD documented in this encounter [facility] 08-12-2023 Note HNO ID: [id number] Author: Familia Pratt RN Service: ? Author Type: Registered Nurse Type: Progress Notes Filed: 08/12/2023 1:23 PM Note Text: CDM Telephonic Outreach Provider Action/FYI CDM: COPD, CKD Spk with Pt and , Pt has bilateral knee pain, scheduled 08/13/23 CT of Left Knee for anticipated 09/01/[address] replacement [address] Dr[address] Jhaveri at [facility]. BP 126/68, Pulse Ox 96%, Temp 96.6 Pt denies COPD, CKD symptom changes, concerns or needs. Contacted for: Routine Telephonic Outreach Contact made with patient: Yes Patient identified by name and date of . Discussed care with patient Are you experiencing any new or worsening symptoms you need to talk about today? No Disease Specific Do you check your blood pressure at home? Yes, Enter readings: 126/68, Pulse Ox 96%, Temp 96.6 Do you have new or worsening shortness of breath with activity? No Do you feel like you are dehydrated for any reason, including not being able to eat or drink normally, or having less urine/much darker urine than normal for you? No Do you check your daily weight at home? Yes, Have you noticed a sudden gain in weight greater than three pounds in a day or three pounds in a week? No and Do you have new or worsening cough? No Do you have new or worsening wheezing? No Do you need to use your rescue (Albuterol) inhaler or nebulizer more often than normal? No Based on credit report checker, the following disposition is advised: No symptoms or symptoms present, not severe. Routed to: No Action Needed DESTINEY Education Provided this Outreach: No Familia Pratt RN August 12, 2023 1:07 PM [facility] 08-12-2023 Note Patient Outreach ([facility]) JAVIER DEGROOT ([id number]) 1945 M Date Time Provider Department 08/12/23 FAMILIA PRATT [facility] During your visit today, we recorded the following information about you: Familia Pratt RN 08/12/2023 1:23 PM Signed CDM Telephonic Outreach Provider Action/FYI CDM: COPD, CKD Spk with Pt and , Pt has bilateral knee pain, scheduled 08/13/23 CT of Left Knee for anticipated 09/01/[address] Jhaveri at [facility]. BP 126/68, Pulse Ox 96%, Temp 96.6 Pt denies COPD, CKD symptom changes, concerns or needs. Contacted for: Routine Telephonic Outreach Contact made with patient: Yes Patient identified by name and date of . Discussed care with patient Are you experiencing any new or worsening symptoms you need to talk about today? No Disease Specific Do you check your blood pressure at home? Yes, Enter readings: 126/68, Pulse Ox 96%, Temp 96.6 Do you have new or worsening shortness of breath with activity? No Do you feel like you are dehydrated for any reason, including not being able to eat or drink normally, or having less urine/much darker urine than normal for you? No Do you check your daily weight at home? Yes, Have you noticed a sudden gain in weight greater than three pounds in a day or three pounds in a week? No and Do you have new or worsening cough? No Do you have new or worsening wheezing? No Do you need to use your rescue (Albuterol) inhaler or nebulizer more often than normal? No Based on credit report checker, the following disposition is advised: No symptoms or symptoms present, not severe. Routed to: No Action Needed DESTINEY Education Provided this Outreach: No Familia Pratt RN August 12, 2023 1:07 PM Allergies As of Date: 08/12/2023 Noted Allergy Reaction LISINOPRIL 10/15/2014 3 - Cough Date Reviewed: 03/22/2023 Reviewed by: Anabella Steve LPN - Fully Assessed Reason for Visit: Community Monitoring Outreach [Other] Prescriptions as of 08/12/2023 - GUAIFENESIN ORAL Take 400 mg by mouth once daily. - metoprolol tartrate 75 mg tab Take 1 tablet by mouth twice daily. - potassium chloride ER (KLOR-CON) 20 mEq tablet Take 1 tablet by mouth once daily. - tamsulosin (FLOMAX) 0.4 mg Take 2 capsules by mouth daily at bedtime. - finasteride (PROSCAR) 5 mg tablet Take 1 tablet by mouth once daily. - atorvastatin (LIPITOR) 10 mg tablet Take 10 mg by mouth once daily. - acetaminophen (TYLENOL ARTHRITIS PAIN ORAL) Take 1,300 mg by mouth as needed. - dilTIAZem (CARDIZEM) 120 mg tablet Take 1 tablet by mouth twice daily. - aspirin 81 mg chewable tablet Take 1 tablet by mouth once daily. - Docusate Sodium 250 mg capsule Take 250 mg by mouth twice daily. - furosemide (LASIX) 40 mg tablet Take 40 mg by mouth once daily. - apixaban (ELIQUIS) 5 mg tab tab(s) Take 1 tablet by mouth twice daily. Problem List As Of Date 08/12/2023 Noted Resolved Elevated prostate specific antigen (PSA) [R97.2* 09/16/2021 OVERWEIGHT [E66.9] 05/28/2005 04/08/2015 Unspecified disorder of prostate [N42.9] 05/28/2005 04/13/2016 Personal history of tobacco use, presenting haz*08/26/2005 04/13/2016 Other and unspecified hyperlipidemia [E78.5] 02/24/2006 04/13/2016 ERECTILE DYSFUNCTION [F52.9] 09/09/2006 04/13/2016 Adenomatous polyp of colon [D12.6] 06/16/2011 Encounter for preprocedural cardiovascular exam*06/16/2011 09/16/2021 BPH (benign prostatic hyperplasia) [N40.0] 09/30/2011 Irregular heart rate [I49.9] 09/30/2011 04/13/2016 Benign neoplasm of rectum and anal canal [D12.8*12/14/2011 04/13/2016 Chronic sinusitis [J32.9] 03/18/2012 03/22/2023 Tobacco use [Z72.0] 03/18/2012 04/13/2016 Urinary retention [R33.9] 07/25/2012 01/27/2018 Hypertension [I10] 10/12/2013 Chronic pulmonary embolism without acute cor pu*10/04/2015 Chronic atrial fibrillation (HCC) [I48.20] 10/04/2015 Hyperlipidemia [E78.5] 01/06/2016 Adenopathy, hilar [R59.0] 04/13/2016 01/27/2018 Adenoma of left adrenal gland [D35.02] 04/13/2016 01/27/2018 Centrilobular emphysema (HCC) [J43.2] 04/13/2016 Obesity, Class II, 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] 04/13/2019 Positive colorectal cancer screening using [place]*05/02/2020 03/22/2023 Aortic valve stenosis [I35.0] 11/26/2020 Nocturnal hypoxia [G47.34] 11/26/2020 Venous insufficiency of both lower extremities *04/28/2021 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 Obesity (BMI 35.0-39.9 without comorbidity) [E6*07/17/2021 Dependence on continuous supplemental oxygen [Z*08/22/2021 09/16/2021 Impaired fasting glucose [R73.01] 03/18/2022 Secondary pulmonary arterial hypertension (HCC)*03/18/2022 Stage 3a chronic kidney disease (HCC) [N18.31] 03/18/2022 NOAM (obstructive sleep apnea) cannot tolerate C*03/22/2023 Encounter Status:Closed by Twila PRATT (more content not included)... [facility] 08-12-2023 History of Presen t illness Narrative CDM Telephonic Outreach Provider Action/FYI CDM: COPD, CKD Spk with Pt and , Pt has bilateral knee pain, scheduled 08/13/23 CT of Left Knee for anticipated 09/01/[address] replacement [address] Dr[address] Jhaveri at [facility]. BP 126/68, Pulse Ox 96%, Temp 96.6 Pt denies COPD, CKD symptom changes, concerns or needs. Contacted for: Routine Telephonic Outreach Contact made with patient: Yes Patient identified by name and date of . Discussed care with patient Are you experiencing any new or worsening symptoms you need to talk about today? No Disease Specific Do you check your blood pressure at home? Yes, Enter readings: 126/68, Pulse Ox 96%, Temp 96.6 Do you have new or worsening shortness of breath with activity? No Do you feel like you are dehydrated for any reason, including not being able to eat or drink normally, or having less urine/much darker urine than normal for you? No Do you check your daily weight at home? Yes, Have you noticed a sudden gain in weight greater than three pounds in a day or three pounds in a week? No and Do you have new or worsening cough? No Do you have new or worsening wheezing? No Do you need to use your rescue (Albuterol) inhaler or nebulizer more often than normal? No Based on credit report checker, the following disposition is advised: No symptoms or symptoms present, not severe. Routed to: No Action Needed DESTINEY Education Provided this Outreach: No Familia Pratt RN August 12, 2023 1:07 PM documented in this encounter [facility] 07-12-2023 Note Patient Outreach (AM [facility]) ZANEJAVIER Mari ([id number]) 1945 M Date Time Provider Department 07/12/23 FAMILIA PRATT [facility] [place] your visit today, we recorded the following information about you: Familia Pratt RN 07/12/2023 10:08 AM Signed CDM Telephonic Outreach 5 Provider Action/FYI COPD, CKD BP 139/74, Pulse Oximeter 96%, wt 235 lbs Pt denies new or worsening COPD, CKD symptom changes or needs. Pt completed Appt with Dr. Russell Pulmonology for clearance for 09/01 Left Knee replacement Contacted for: Routine Telephonic Outreach Contact made with patient: Yes Patient identified by name and date of . Discussed care with patient Are you experiencing any new or worsening symptoms you need to talk about today? No Disease Specific Do you check your blood pressure at home? Yes, Enter readings: 139/74 Do you have new or worsening shortness of breath with activity? No Do you have new or worsening cough? No Do you have new or worsening wheezing? No Do you need to use your rescue (Albuterol) inhaler or nebulizer more often than normal? No Based on credit report checker, the following disposition is advised: No symptoms or symptoms present, not severe. Routed to: No Action Needed DESTINEY Education Provided this Outreach: No Familia Pratt RN July 12, 2023 9:49 AM Allergies As of Date: 07/12/2023 Noted Allergy Reaction LISINOPRIL 10/15/2014 3 - Cough Date Reviewed: 03/22/2023 Reviewed by: Anabella Steve LPN - Fully Assessed Reason for Visit: Community Monitoring Outreach [Other] Prescriptions as of 07/12/2023 - GUAIFENESIN ORAL Take 400 mg by mouth once daily. - metoprolol tartrate 75 mg tab Take 1 tablet by mouth twice daily. - potassium chloride ER (KLOR-CON) 20 mEq tablet Take 1 tablet by mouth once daily. - tamsulosin (FLOMAX) 0.4 mg Take 2 capsules by mouth daily at bedtime. - finasteride (PROSCAR) 5 mg tablet Take 1 tablet by mouth once daily. - atorvastatin (LIPITOR) 10 mg tablet Take 10 mg by mouth once daily. - acetaminophen (TYLENOL ARTHRITIS PAIN ORAL) Take 1,300 mg by mouth as needed. - dilTIAZem (CARDIZEM) 120 mg tablet Take 1 tablet by mouth twice daily. - aspirin 81 mg chewable tablet Take 1 tablet by mouth once daily. - Docusate Sodium 250 mg capsule Take 250 mg by mouth twice daily. - furosemide (LASIX) 40 mg tablet Take 40 mg by mouth once daily. - apixaban (ELIQUIS) 5 mg tab tab(s) Take 1 tablet by mouth twice daily. Problem List As Of Date 07/12/2023 Noted Resolved Elevated prostate specific antigen (PSA) [R97.2* 09/16/2021 OVERWEIGHT [E66.9] 05/28/2005 04/08/2015 Unspecified disorder of prostate [N42.9] 05/28/2005 04/13/2016 Personal history of tobacco use, presenting haz*08/26/2005 04/13/2016 Other and unspecified hyperlipidemia [E78.5] 02/24/2006 04/13/2016 ERECTILE DYSFUNCTION [F52.9] 09/09/2006 04/13/2016 Adenomatous polyp of colon [D12.6] 06/16/2011 Encounter for preprocedural cardiovascular exam*06/16/2011 09/16/2021 BPH (benign prostatic hyperplasia) [N40.0] 09/30/2011 Irregular heart rate [I49.9] 09/30/2011 04/13/2016 Benign neoplasm of rectum and anal canal [D12.8*12/14/2011 04/13/2016 Chronic sinusitis [J32.9] 03/18/2012 03/22/2023 Tobacco use [Z72.0] 03/18/2012 04/13/2016 Urinary retention [R33.9] 07/25/2012 01/27/2018 Hypertension [I10] 10/12/2013 Chronic pulmonary embolism without acute cor pu*10/04/2015 Chronic atrial fibrillation (HCC) [I48.20] 10/04/2015 Hyperlipidemia [E78.5] 01/06/2016 Adenopathy, hilar [R59.0] 04/13/2016 01/27/2018 Adenoma of left adrenal gland [D35.02] 04/13/2016 01/27/2018 Centrilobular emphysema (HCC) [J43.2] 04/13/2016 Obesity, Class II, 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] 04/13/2019 Positive colorectal cancer screening using [facility]*05/02/2020 03/22/2023 Aortic valve stenosis [I35.0] 11/26/2020 Nocturnal hypoxia [G47.34] 11/26/2020 Venous insufficiency of both lower extremities *04/28/2021 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 Author Type: Registered Nurse Type: Progress Notes Filed: 07/12/2023 10:08 AM Note Text: CDM Telephonic Outreach 5 Provider Action/FYI COPD, CKD BP 139/74, Pulse Oximeter 96%, wt 235 lbs Pt denies new or worsening COPD, CKD symptom changes or needs. Pt completed Appt with Dr. Russell Pulmonology for clearance for 09/01 Left Knee replacement Contacted for: Routine Telephonic Outreach Contact made with patient: Yes Patient identified by name and date of . Discussed care with patient Are you experiencing any new or worsening symptoms you need to talk about today? No Disease Specific Do you check your blood pressure at home? Yes, Enter readings: 139/74 Do you have new or worsening shortness of breath with activity? No Do you have new or worsening cough? No Do you have new or worsening wheezing? No Do you need to use your rescue (Albuterol) inhaler or nebulizer more often than normal? No Based on credit report checker, the following disposition is advised: No symptoms or symptoms present, not severe. Routed to: No Action Needed DESTINEY Education Provided this Outreach: No Familia Pratt RN July 12, 2023 9:49 AM [facility] 06-15-2023 Note HNO ID: [id number] Author: Familia Pratt RN Service: ? Author Type: Registered Nurse Type: Progress Notes Filed: 06/15/2023 4:28 PM Note Text: ACDM Telephonic Outreach Provider Action/FYI CDM COPD, CKD Pt denies symptom concerns or needs, undergoing pre testing for Left Knee replacement surgery scheduled 09/01/23 at [facility]. Pt reports chronic bilateral knee pain due to arthritis. BP 125/70, Pulse oximeter 96%, T 96.6 ADL's, Falls, Goals completed, COPD Destiney education sent Contacted for: Routine Telephonic Outreach Contact made with patient: Yes Patient identified by name and date of . Discussed care with patient Are you experiencing any new or worsening symptoms you need to talk about today? No Disease Specific Do you check your blood pressure at home? Yes, Enter readings: 125/70 Do you have new or worsening shortness of breath with activity? No Do you feel like you are dehydrated for any reason, including not being able to eat or drink normally, or having less urine/much darker urine than normal for you? No Do you check your daily weight at home? Yes, Have you noticed a sudden gain in weight greater than three pounds in a day or three pounds in a week? No and Do you have new or worsening cough? No Do you have new or worsening wheezing? No Do you need to use your rescue (Albuterol) inhaler or nebulizer more often than normal? No Based on credit report checker, the following disposition is advised: No symptoms or symptoms present, not severe. Routed to: No Action Needed DESTINEY Education Provided this Outreach: Yes Familia Pratt RN June 15, 2023 4:11 PM [facility] 06-14-2023 Note HNO ID: [id number] Author: Familia Pratt RN Service: ? Author Type: Registered Nurse Type: Progress Notes Filed: 06/15/2023 4:28 PM Note Text: CDM Telephonic Outreach Provider Action/FYI CDM: COPD, CKD Called Pt, unable to leave?a message to verify symptom status and needs. Contacted for: Routine Telephonic Outreach Contact made with patient: No, unable to leave message. Will reattempt call Familia Pratt RN June 14, 2023 1:54 PM [facility] 06-14-2023 Note Patient Outreach (AM [facility]) JAVIER DEGROOT ([id number]) 1945 M Date Time Provider Department 06/14/23 FAMILIA PRATT [facility] [place] your visit today, we recorded the following information about you: Familia Pratt RN 06/15/2023 4:28 PM Signed CDM Telephonic Outreach Provider Action/FYI CDM: COPD, CKD Called Pt, unable to leave?a message to verify symptom status and needs. Contacted for: Routine Telephonic Outreach Contact made with patient: No, unable to leave message. Will reattempt call Familia Pratt RN June 14, 2023 1:54 PM Familia Pratt RN 06/15/2023 4:28 PM Signed ACDM Telephonic Outreach Provider Action/FYI CDM COPD, CKD Pt denies symptom concerns or needs, undergoing pre testing for Left Knee replacement surgery scheduled 09/01/23 at [facility]. Pt reports chronic bilateral knee pain due to arthritis. BP 125/70, Pulse oximeter 96%, T 96.6 ADL's, Falls, Goals completed, COPD Destiney education sent Contacted for: Routine Telephonic Outreach Contact made with patient: Yes Patient identified by name and date of . Discussed care with patient Are you experiencing any new or worsening symptoms you need to talk about today? No Disease Specific Do you check your blood pressure at home? Yes, Enter readings: 125/70 Do you have new or worsening shortness of breath with activity? No Do you feel like you are dehydrated for any reason, including not being able to eat or drink normally, or having less urine/much darker urine than normal for you? No Do you check your daily weight at home? Yes, Have you noticed a sudden gain in weight greater than three pounds in a day or three pounds in a week? No and Do you have new or worsening cough? No Do you have new or worsening wheezing? No Do you need to use your rescue (Albuterol) inhaler or nebulizer more often than normal? No Based on credit report checker, the following disposition is advised: No symptoms or symptoms present, not severe. Routed to: No Action Needed DESTINEY Education Provided this Outreach: Yes Familia Pratt RN June 15, 2023 4:11 PM Allergies As of Date: 06/14/2023 Noted Allergy Reaction LISINOPRIL 10/15/2014 3 - Cough Date Reviewed: 03/22/2023 Reviewed by: Anabella Steve LPN - Fully Assessed Reason for Visit: Community Monitoring Outreach [Other] Primary Visit Diagnosis:Centrilobular emphysema (HCC) [J43.2] Order(s):PT ED PULMONARY [[id number]] Order #: [id number]: 1 Prescriptions as of 06/15/2023 - GUAIFENESIN ORAL Take 400 mg by mouth once daily. - metoprolol tartrate 75 mg tab Take 1 tablet by mouth twice daily. - potassium chloride ER (KLOR-CON) 20 mEq tablet Take 1 tablet by mouth once daily. - tamsulosin (FLOMAX) 0.4 mg Take 2 capsules by mouth daily at bedtime. - finasteride (PROSCAR) 5 mg tablet Take 1 tablet by mouth once daily. - atorvastatin (LIPITOR) 10 mg tablet Take 10 mg by mouth once daily. - acetaminophen (TYLENOL ARTHRITIS PAIN ORAL) Take 1,300 mg by mouth as needed. - dilTIAZem (CARDIZEM) 120 mg tablet Take 1 tablet by mouth twice daily. - aspirin 81 mg chewable tablet Take 1 tablet by mouth once daily. - Docusate Sodium 250 mg capsule Take 250 mg by mouth twice daily. - furosemide (LASIX) 40 mg tablet Take 40 mg by mouth once daily. - apixaban (ELIQUIS) 5 mg tab tab(s) Take 1 tablet by mouth twice daily. Problem List As Of Date 06/14/2023 Noted Resolved Elevated prostate specific antigen (PSA) [R97.2* 09/16/2021 OVERWEIGHT [E66.9] 05/28/2005 04/08/2015 Unspecified disorder of prostate [N42.9] 05/28/2005 04/13/2016 Personal history of tobacco use, presenting haz*08/26/2005 04/13/2016 Other and unspecified hyperlipidemia [E78.5] 02/24/2006 04/13/2016 ERECTILE DYSFUNCTION [F52.9] 09/09/2006 04/13/2016 Adenomatous polyp of colon [D12.6] 06/16/2011 Encounter for preprocedural cardiovascular exam*06/16/2011 09/16/2021 BPH (benign prostatic hyperplasia) [N40.0] 09/30/2011 Irregular heart rate [I49.9] 09/30/2011 04/13/2016 Benign neoplasm of rectum and anal canal [D12.8*12/14/2011 04/13/2016 Chronic sinusitis [J32.9] 03/18/2012 03/22/2023 Tobacco use [Z72.0] 03/18/2012 04/13/2016 Urinary retention [R33.9] 07/25/2012 01/27/2018 Hypertension [I10] 10/12/2013 Chronic pulmonary embolism without acute cor pu*10/04/2015 Chronic atrial fibrillation (HCC) [I48.20] 10/04/2015 Hyperlipidemia [E78.5] 01/06/2016 Adenopathy, hilar [R59.0] 04/13/2016 01/27/2018 Adenoma of left adrenal gland [D35.02] 04/13/2016 01/27/2018 Centrilobular emphysema (HCC) [J43.2] 04/13/2016 Obesity, Class II, 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] 04/13/2019 Positive colorectal cancer screening using [facility]*05/02/2020 03/22/2023 Aortic valve stenosis [I35.0] 11/26/2020 Nocturnal hypoxia [G47.34] 11/26/2020 Venous insufficiency of both lower extremities *04/28/2021 S/P TAVR (transcatheter a (more content not included)... [facility] 05-18-2023 Note HNO ID: [id number] Author: Familia Pratt RN Service: ? Author Type: Registered Nurse Type: Progress Notes Filed: 05/18/2023 3:42 PM Note Text: CDM Telephonic Outreach Provider Action/FYI COPD, CKD Spk with Pt he reported will have a Colonoscopy by [facility] and a Left knee Replacement scheduled 09/01/[address] Soto [facility]. BP 119/54, Pulse Oximeter 95%, wt 236 lbs Pt denies new or worsening COPD, CKD symptom changes or needs. Contacted for: Routine Telephonic Outreach Contact made with patient: Yes Patient identified by name and date of . Discussed care with patient Are you experiencing any new or worsening symptoms you need to talk about today? No Disease Specific Do you check your blood pressure at home? Yes, Enter readings: 119/54, Pulse Oximeter 95% Do you have new or worsening shortness of breath with activity? No Do you feel like you are dehydrated for any reason, including not being able to eat or drink normally, or having less urine/much darker urine than normal for you? No Do you check your daily weight at home? Yes, Have you noticed a sudden gain in weight greater than three pounds in a day or three pounds in a week? No and Do you have new or worsening cough? No Do you have new or worsening wheezing? No Do you need to use your rescue (Albuterol) inhaler or nebulizer more often than normal? No Based on credit report checker, the following disposition is advised: No symptoms or symptoms present, not severe. Routed to: No Action Needed DESTINEY Education Provided this Outreach: No Familia Pratt, MARYCRUZ May 18, 2023 1:41 PM [facility] 05-18-2023 Note Patient Outreach (AM [facility]) JAVIER DEGROOT ([id number]) 1945 M Date Time Provider Department 05/18/23 FAMILIA PRATT [facility] During your visit today, we recorded the following information about you: Familia Pratt RN 05/18/2023 3:42 PM Signed CDM Telephonic Outreach Provider Action/FYI COPD, CKD Spk with Pt he reported will have a Colonoscopy by [facility] and a Left knee Replacement scheduled 09/01/[address] Soto [facility]. BP 119/54, Pulse Oximeter 95%, wt 236 lbs Pt denies new or worsening COPD, CKD symptom changes or needs. Contacted for: Routine Telephonic Outreach Contact made with patient: Yes Patient identified by name and date of . Discussed care with patient Are you experiencing any new or worsening symptoms you need to talk about today? No Disease Specific Do you check your blood pressure at home? Yes, Enter readings: 119/54, Pulse Oximeter 95% Do you have new or worsening shortness of breath with activity? No Do you feel like you are dehydrated for any reason, including not being able to eat or drink normally, or having less urine/much darker urine than normal for you? No Do you check your daily weight at home? Yes, Have you noticed a sudden gain in weight greater than three pounds in a day or three pounds in a week? No and Do you have new or worsening cough? No Do you have new or worsening wheezing? No Do you need to use your rescue (Albuterol) inhaler or nebulizer more often than normal? No Based on credit report checker, the following disposition is advised: No symptoms or symptoms present, not severe. Routed to: No Action Needed DESTINEY Education Provided this Outreach: No Familia Pratt RN May 18, 2023 1:41 PM Allergies As of Date: 05/18/2023 Noted Allergy Reaction LISINOPRIL 10/15/2014 3 - Cough Date Reviewed: 03/22/2023 Reviewed by: Anabella Steve LPN - Fully Assessed Reason for Visit: Community Monitoring Outreach [Other] Prescriptions as of 05/18/2023 - GUAIFENESIN ORAL Take 400 mg by mouth once daily. - metoprolol tartrate 75 mg tab Take 1 tablet by mouth twice daily. - potassium chloride ER (KLOR-CON) 20 mEq tablet Take 1 tablet by mouth once daily. - tamsulosin (FLOMAX) 0.4 mg Take 2 capsules by mouth daily at bedtime. - finasteride (PROSCAR) 5 mg tablet Take 1 tablet by mouth once daily. - atorvastatin (LIPITOR) 10 mg tablet Take 10 mg by mouth once daily. - acetaminophen (TYLENOL ARTHRITIS PAIN ORAL) Take 1,300 mg by mouth as needed. - dilTIAZem (CARDIZEM) 120 mg tablet Take 1 tablet by mouth twice daily. - aspirin 81 mg chewable tablet Take 1 tablet by mouth once daily. - Docusate Sodium 250 mg capsule Take 250 mg by mouth twice daily. - furosemide (LASIX) 40 mg tablet Take 40 mg by mouth once daily. - apixaban (ELIQUIS) 5 mg tab tab(s) Take 1 tablet by mouth twice daily. Problem List As Of Date 05/18/2023 Noted Resolved Elevated prostate specific antigen (PSA) [R97.2* 09/16/2021 OVERWEIGHT [E66.9] 05/28/2005 04/08/2015 Unspecified disorder of prostate [N42.9] 05/28/2005 04/13/2016 Personal history of tobacco use, presenting haz*08/26/2005 04/13/2016 Other and unspecified hyperlipidemia [E78.5] 02/24/2006 04/13/2016 ERECTILE DYSFUNCTION [F52.9] 09/09/2006 04/13/2016 Adenomatous polyp of colon [D12.6] 06/16/2011 Encounter for preprocedural cardiovascular exam*06/16/2011 09/16/2021 BPH (benign prostatic hyperplasia) [N40.0] 09/30/2011 Irregular heart rate [I49.9] 09/30/2011 04/13/2016 Benign neoplasm of rectum and anal canal [D12.8*12/14/2011 04/13/2016 Chronic sinusitis [J32.9] 03/18/2012 03/22/2023 Tobacco use [Z72.0] 03/18/2012 04/13/2016 Urinary retention [R33.9] 07/25/2012 01/27/2018 Hypertension [I10] 10/12/2013 Chronic pulmonary embolism without acute cor pu*10/04/2015 Chronic atrial fibrillation (HCC) [I48.20] 10/04/2015 Hyperlipidemia [E78.5] 01/06/2016 Adenopathy, hilar [R59.0] 04/13/2016 01/27/2018 Adenoma of left adrenal gland [D35.02] 04/13/2016 01/27/2018 Centrilobular emphysema (HCC) [J43.2] 04/13/2016 Obesity, Class II, 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] 04/13/2019 Positive colorectal cancer screening using [facility]*05/02/2020 03/22/2023 Aortic valve stenosis [I35.0] 11/26/2020 Nocturnal hypoxia [G47.34] 11/26/2020 Venous insufficiency of both lower extremities *04/28/2021 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 Obesity (BMI 35.0-39.9 without comorbidity) [E6*07/17/2021 Dependence on continuous supplemental oxygen [Z*08/22/2021 09/16/2021 Impaired fasting glucose [R73.01] 03/18/2022 Secondary pulmonary arterial hypertension (HCC)*03/18/2022 Stage 3a chronic kidney disease (HCC) [N18.31] 03/18/2022 NOAM (obstructive sleep apnea) cannot tolerate C*03/22/2023 Encounter Status:Closed by FAMILIA PRATT (more content not included)... [facility] 04-14-2023 Note HNO ID: [id number] Author: Familia Pratt, RN Service: ? Author Type: Registered Nurse Type: Progress Notes Filed: 04/14/2023 5:00 PM Note Text: CDM Telephonic Outreach Provider Action/DOROTHEAI Spk with Pt, he noted was seen by Dr Adonis Hutchins for bilateral knee pain, Pt noted x-rays were completed, Ortho injected Right knee , and Left Knee needs replaced, pre-testing chemical stress test is scheduled 04/20/23 BP 128/76, 95%, T 96.8 Pt denies needs or concerns Contacted for: Routine Telephonic Outreach Contact made with patient: Yes Patient identified by name and date of . Discussed care with patient Are you experiencing any new or worsening symptoms you need to talk about today? No Disease Specific Do you check your blood pressure at home? Yes, Enter readings: 128/76, 95%, T 96.8 Do you have new or worsening shortness of breath with activity? No Do you feel like you are dehydrated for any reason, including not being able to eat or drink normally, or having less urine/much darker urine than normal for you? No Do you check your daily weight at home? Yes, Have you noticed a sudden gain in weight greater than three pounds in a day or three pounds in a week? No and Do you have new or worsening cough? No Do you have new or worsening wheezing? No Do you need to use your rescue (Albuterol) inhaler or nebulizer more often than normal? No Based on credit report checker, the following disposition is advised: No symptoms or symptoms present, not severe. Routed to: No Action Needed DESTINEY Education Provided this Outreach: No Familia Pratt RN April 14, 2023 12:50 PM [facility] 04-12-2023 Note HNO ID: [id number] Author: Familia Pratt RN Service: ? Author Type: Registered Nurse Type: Progress Notes Filed: 04/14/2023 5:00 PM Note Text: CDM Telephonic Outreach Provider Action/FYI CDM: COPD, CKD Left a message to verify symptom status, instructed to call PCP with any changes in condition or needs. Contacted for: Routine Telephonic Outreach Contact made with patient: No, left message. Familia Pratt RN April 12, 2023 2:03 PM [facility] 04-08-2023 Note Patient Outreach (AM [facility]) JAVIER DEGROOT ([id number]) 1945 M Date Time Provider Department 04/08/23 FAMILIA PRATT [facility] [place] your visit today, we recorded the following information about you: Familia Pratt RN 04/14/2023 5:00 PM Signed CDM Telephonic Outreach Provider Mau/THIERNO CDM: COPD, CKD Called Pt, unable to leave a message to verify symptom status and needs Contacted for: Routine Telephonic Outreach Contact made with patient: No, unable to leave message. Will reattempt call Familia Pratt RN April 08, 2023 10:42 AM Familia Pratt RN 04/14/2023 5:00 PM Signed CDM Telephonic Outreach Provider Mau/THIERNO CDM: COPD, CKD Left a message to verify symptom status, instructed to call PCP with any changes in condition or needs. Contacted for: Routine Telephonic Outreach Contact made with patient: No, left message. Familia Pratt RN April 12, 2023 2:03 PM Familia Pratt RN 04/14/2023 5:00 PM Signed CD Telephonic Outreach Provider Mau/THIERNO Spk with Pt, he noted was seen by Dr Adonis Hutchins for bilateral knee pain, Pt noted x-rays were completed, Ortho injected Right knee , and Left Knee needs replaced, pre-testing chemical stress test is scheduled 04/20/23 BP 128/76, 95%, T 96.8 Pt denies needs or concerns Contacted for: Routine Telephonic Outreach Contact made with patient: Yes Patient identified by name and date of . Discussed care with patient Are you experiencing any new or worsening symptoms you need to talk about today? No Disease Specific Do you check your blood pressure at home? Yes, Enter readings: 128/76, 95%, T 96.8 Do you have new or worsening shortness of breath with activity? No Do you feel like you are dehydrated for any reason, including not being able to eat or drink normally, or having less urine/much darker urine than normal for you? No Do you check your daily weight at home? Yes, Have you noticed a sudden gain in weight greater than three pounds in a day or three pounds in a week? No and Do you have new or worsening cough? No Do you have new or worsening wheezing? No Do you need to use your rescue (Albuterol) inhaler or nebulizer more often than normal? No Based on credit report checker, the following disposition is advised: No symptoms or symptoms present, not severe. Routed to: No Action Needed DESTINEY Education Provided this Outreach: Daphney Pratt RN April 14, 2023 12:50 PM Allergies As of Date: 04/08/2023 Noted Allergy Reaction LISINOPRIL 10/15/2014 3 - Cough Date Reviewed: 03/22/2023 Reviewed by: Anabella Steve LPN - Fully Assessed Reason for Visit: Community Monitoring Outreach [Other] Prescriptions as of 04/14/2023 - GUAIFENESIN ORAL Take 400 mg by mouth once daily. - metoprolol tartrate 75 mg tab Take 1 tablet by mouth twice daily. - potassium chloride ER (KLOR-CON) 20 mEq tablet Take 1 tablet by mouth once daily. - tamsulosin (FLOMAX) 0.4 mg Take 2 capsules by mouth daily at bedtime. - finasteride (PROSCAR) 5 mg tablet Take 1 tablet by mouth once daily. - atorvastatin (LIPITOR) 10 mg tablet Take 10 mg by mouth once daily. - acetaminophen (TYLENOL ARTHRITIS PAIN ORAL) Take 1,300 mg by mouth as needed. - dilTIAZem (CARDIZEM) 120 mg tablet Take 1 tablet by mouth twice daily. - aspirin 81 mg chewable tablet Take 1 tablet by mouth once daily. - Docusate Sodium 250 mg capsule Take 250 mg by mouth twice daily. - furosemide (LASIX) 40 mg tablet Take 40 mg by mouth once daily. - apixaban (ELIQUIS) 5 mg tab tab(s) Take 1 tablet by mouth twice daily. Problem List As Of Date 04/08/2023 Noted Resolved Elevated prostate specific antigen (PSA) [R97.2* 09/16/2021 OVERWEIGHT [E66.9] 05/28/2005 04/08/2015 Unspecified disorder of prostate [N42.9] 05/28/2005 04/13/2016 Personal history of tobacco use, presenting haz*08/26/2005 04/13/2016 Other and unspecified hyperlipidemia [E78.5] 02/24/2006 04/13/2016 ERECTILE DYSFUNCTION [F52.9] 09/09/2006 04/13/2016 Adenomatous polyp of colon [D12.6] 06/16/2011 Encounter for preprocedural cardiovascular exam*06/16/2011 09/16/2021 BPH (benign prostatic hyperplasia) [N40.0] 09/30/2011 Irregular heart rate [I49.9] 09/30/2011 04/13/2016 Benign neoplasm of rectum and anal canal [D12.8*12/14/2011 04/13/2016 Chronic sinusitis [J32.9] 03/18/2012 03/22/2023 Tobacco use [Z72.0] 03/18/2012 04/13/2016 Urinary retention [R33.9] 07/25/2012 01/27/2018 Hypertension [I10] 10/12/2013 Chronic pulmonary embolism without acute cor pu*10/04/2015 Chronic atrial fibrillation (HCC) [I48.20] 10/04/2015 Hyperlipidemia [E78.5] 01/06/2016 Adenopathy, hilar [R59.0] 04/13/2016 01/27/2018 Adenoma of left adrenal gland [D35.02] 04/13/2016 01/27/2018 Centrilobular emphysema (HCC) [J43.2] 04/13/2016 Obesity, Class II, 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] 04/13/2019 Positi (more content not included)... [facility] 04-08-2023 Note HNO ID: [id number] Author: Familia Pratt RN Service: ? Author Type: Registered Nurse Type: Progress Notes Filed: 04/14/2023 5:00 PM Note Text: CDM Telephonic Outreach Provider Action/FYI CDM: COPD, CKD Called Pt, unable to leave a message to verify symptom status and needs Contacted for: Routine Telephonic Outreach Contact made with patient: No, unable to leave message. Will reattempt call Familia Pratt RN April 08, 2023 10:42 AM [facility] 03-22-2023 Note HNO ID: [id number] Author: Tomy Hernandez MD Service: ? Author Type: Physician Type: Progress Notes Filed: 03/22/2023 6:14 PM Note Text: This note was created using AirMediariter. Subjective Javier Degroot is a 77 year old male here with his . He was mainly seeing specialists at [facility] and most medications were from there. He was interested in updating his lab results. He was recently found to have more adenomatous polyps of his colon by Dr. Sanchez. He was seeing Dr. Lamb and there was some discussion about knee replacement if his other health conditions will allow. He exercised in a pool 3 times per week on average. Review of Systems Constitutional: Negative for fatigue, fever and unexpected weight change. HENT: Negative for congestion. Eyes: Negative for visual disturbance. Respiratory: Negative for cough, chest tightness, shortness of breath and wheezing. Cardiovascular: Negative for chest pain, palpitations and leg swelling. Gastrointestinal: Negative for abdominal pain, constipation, nausea and vomiting. Genitourinary: Negative for difficulty urinating and dysuria. Musculoskeletal: Negative for arthralgias. Neurological: Negative for dizziness and headaches. 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 Left 2016. COLSC FLX W/RMVL OF TUMOR POLYP LESION SNARE TQ 06/16/2011 F COLONOSCOPY WITH BIOPSY 12/02/2022 LEFT HEART CATH,PERCUTANEOUS 05/06/2021 PAST SURGICAL HISTORY OF 07/14/2012 closure of oroantral fistula (sinuses) SGMDSC FLX RMVL RYAN POLYP/OTH LES SNARE TQ 07/23/2011 SIGMOIDOSCOPY FLX DX W/COLLJ SPEC BR/WA IF PFRMD 12/14/2011 Sigmoidoscopy, flexible TAVR/ROSETTE PERCUT 07/10/2021 femoral Current Outpatient Medications Medication Sig GUAIFENESIN ORAL Take 400 mg by mouth once daily. tamsulosin (FLOMAX) 0.4 mg Take 2 capsules by mouth daily at bedtime. finasteride (PROSCAR) 5 mg tablet Take 1 tablet by mouth once daily. atorvastatin (LIPITOR) 10 mg tablet Take 10 mg by mouth once daily. acetaminophen (TYLENOL ARTHRITIS PAIN ORAL) Take 1,300 mg by mouth as needed. dilTIAZem (CARDIZEM) 120 mg tablet Take 1 tablet by mouth twice daily. aspirin 81 mg chewable tablet Take 1 tablet by mouth once daily. metoprolol tartrate, short acting, (LOPRESSOR) 50 mg tablet Take 1.5 tablets by mouth twice daily. potassium chloride ER (K-DUR, KLOR-CON) 20 mEq tablet Take 20 mEq by mouth twice daily. Docusate Sodium 250 mg capsule Take 250 mg by mouth twice daily. furosemide (LASIX) 40 mg tablet Take 40 mg by mouth once daily. apixaban (ELIQUIS) 5 mg tab tab(s) Take 1 tablet by mouth twice daily. COLLAGEN MISC Take 2 capsules by mouth once daily. Current Facility-Administered Medications Medication Dose Route Frequency perflutren lipid microspheres 1.3 mL in NaCl (PF) 0.9% 10 mL injection (DEFINITY) INTRAVENOUS DIRECTED PRN sodium chloride 0.9 % (flush) 10 mL (BD POSIFLUSH) 10 mL INTRAVENOUS DIRECTED PRN Objective BP 134/76 (BP Site: Left Arm, BP Position: Sitting, BP Cuff Size: Large Adult) Resp 28 Ht 165.7 cm (5' 5.25 ) Wt 105.6 kg (232 lb 14.4 oz) SpO2 97% BMI 38.46 kg/m? Physical Exam Cardiovascular: Rate and Rhythm: Normal rate. Rhythm irregular. Heart sounds: S1 normal and S2 normal. Murmur heard. Systolic murmur is present with a grade of 1/6. Pulmonary: Breath sounds: Normal breath sounds. No wheezing or rales. Abdominal: Palpations: Abdomen is soft. Tenderness: There is no abdominal tenderness. Musculoskeletal: Right lower leg: No edema. Left lower leg: No edema. Neurological: General: No focal deficit present. Mental Status: He is alert. Gait: Gait normal. Psychiatric: Mood and Affect: Mood normal. Behavior: Behavior normal. Assessment and Plan 1. Medicare annual wellness visit, subsequent - ICD9: V70.0, ICD10: Z00.00 (primary diagnosis) See other note. 2. Centrilobular emphysema (HCC) - ICD9: 492.8, ICD10: J43.2 Stable. 3. Secondary pulmonary arterial hypertension (HCC) - ICD9: 416.8, ICD10: I27.21 Controlled. 4. Chronic atrial fibrillation (HCC) - ICD9: 427.31, ICD10: I48.20 Stable. - CBC - METOPROLOL TARTRATE 75 MG TABLET 5. Stage 3a chronic kidney disease (HC (more content not included)... [facility] 03-22-2023 Note HNO ID: [id number] Author: Tomy Hernandez MD Service: ? Author Type: Physician Type: Progress Notes Filed: 03/22/2023 6:14 PM Note Text: Javier Degroot is a 77 year old male here for a Medicare Subsequent Annual Wellness Visit Health Risk Assessment In general, health is: Fair Concerns with balance: Not at all Concerns with teeth or dentures: Not at all Concerns with sexual function: Not at all [place] anxious, stressed, angry, irritable, lonely, isolated, or had thoughts of hurting themself: Not at all Has little interest or pleasure in doing things: Not at all Bothered by feeling down, depressed, or hopeless: Not at all Needs help with grocery shopping, cooking, housework, bathing, grooming, dressing, eating, sitting or standing, walking, using the toilet, handling finances, taking medications, using the telephone, or driving: No Following safety precautions in the home environment and vehicle: removed throw rugs from floors, installed grab bars in the bathroom, handrails in stairwells, having adequate lighting, wearing seatbelt at all times?: Yes Smokes cigarettes, vapes, or chew tobacco: No Eats healthy foods including fruits, vegetables, whole grains, and fiber-rich foods: Nearly every day Number of days per week engages in exercise: Patient refused Average alcohol consumption: Never Current Providers Specialists: I have reviewed specialist-related care of the patient in the medical record. Current care team: Patient Care Team: Tomy Hernandez MD as PCP - General (Internal Medicine) Familia Pratt, MARYCRUZ as Charging Car Operator (Internal Medicine) Christopher Rivera MD(Cardiology) Bran Russell (Pulmonary Disease) Kimmy Sanchez MD, (Surgery) Iliana Lamb MD (Orthopedics) Swetha Engle DPM (Podiatry) Ruma Dickerson (Urology) Jos Vela MD (Ophthalmology) Kathy Oliva MD (ENT-audiology) [employer]mie [employer] [facility] [employer] (Oxygen supplier). Medical/Family history review Reviewed and updated problem list, medical/surgical/family/social history, medications, and allergies. Opioid use review Patient is not currently using opioids. Depression screening Depression Screening PHQ-2 Score YESICA-2 Total Score 06/22/2022 0 - Depression screening tool completed and reviewed. Based on score and interview, patient is not at risk for depression. Screening tool discussed with patient, and I recommended no further intervention at this time. Cognitive screening Mini Cog Score: 5 Cognitive screening reviewed and no further action needed (score 3-5) Functional Observation Was the patient's timed Up AND Go test unsteady or ? 12 seconds? No Advance Care Planning End of Life planning discussed, including patient's advanced directive wishes: Yes Measurements BP 134/76 Resp 28 Ht 5' 5.25 (1.66m) Wt 232 lb 14.4 oz (105.6kg) SpO2 97% BMI 38.48 kg/(m2). Visual acuity (required for Welcome to Medicare): follows with optometry/ophthalmology and Right: 20/70 Left: 20/ 50 Both: 20/50 Hearing Evaluation: wears hearing aids Assessment/Plan - Counseled on healthy diet and regular exercise - Discussed need for and benefit of weight loss. BMI 38.46 kg/(m2) - Fall avoidance - Depression screening [facility] 03-22-2023 History of Presen t illness Narrative This note was created using Abaxiater. Subjective Javier Degroot is a 77 year old male here with his . He was mainly seeing specialists at [facility] and most medications were from there. He was interested in updating his lab results. He was recently found to have more adenomatous polyps of his colon by Dr. Sanchez. He was seeing Dr. Lamb and there was some discussion about knee replacement if his other health conditions will allow. He exercised in a pool 3 times per week on average. Review of Systems Constitutional: Negative for fatigue, fever and unexpected weight change. HENT: Negative for congestion. Eyes: Negative for visual disturbance. Respiratory: Negative for cough, chest tightness, shortness of breath and wheezing. Cardiovascular: Negative for chest pain, palpitations and leg swelling. Gastrointestinal: Negative for abdominal pain, constipation, nausea and vomiting. Genitourinary: Negative for difficulty urinating and dysuria. Musculoskeletal: Negative for arthralgias. Neurological: Negative for dizziness and headaches. 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 Left 2015. COLSC FLX W/RMVL OF TUMOR POLYP LESION SNARE TQ 06/16/2011 F COLONOSCOPY WITH BIOPSY 12/02/2022 LEFT HEART CATH,PERCUTANEOUS 05/06/2021 PAST SURGICAL HISTORY OF 07/14/2012 closure of oroantral fistula (sinuses) SGMDSC FLX RMVL RYAN POLYP/OTH LES SNARE TQ 07/23/2011 SIGMOIDOSCOPY FLX DX W/COLLJ SPEC BR/WA IF PFRMD 12/14/2011 Sigmoidoscopy, flexible TAVR/ROSETTE PERCUT 07/10/2021 femoral Current Outpatient Medications Medication Sig GUAIFENESIN ORAL Take 400 mg by mouth once daily. tamsulosin (FLOMAX) 0.4 mg Take 2 capsules by mouth daily at bedtime. finasteride (PROSCAR) 5 mg tablet Take 1 tablet by mouth once daily. atorvastatin (LIPITOR) 10 mg tablet Take 10 mg by mouth once daily. acetaminophen (TYLENOL ARTHRITIS PAIN ORAL) Take 1,300 mg by mouth as needed. dilTIAZem (CARDIZEM) 120 mg tablet Take 1 tablet by mouth twice daily. aspirin 81 mg chewable tablet Take 1 tablet by mouth once daily. metoprolol tartrate, short acting, (LOPRESSOR) 50 mg tablet Take 1.5 tablets by mouth twice daily. potassium chloride ER (K-DUR, KLOR-CON) 20 mEq tablet Take 20 mEq by mouth twice daily. Docusate Sodium 250 mg capsule Take 250 mg by mouth twice daily. furosemide (LASIX) 40 mg tablet Take 40 mg by mouth once daily. apixaban (ELIQUIS) 5 mg tab tab(s) Take 1 tablet by mouth twice daily. COLLAGEN MISC Take 2 capsules by mouth once daily. Current Facility-Administered Medications Medication Dose Route Frequency perflutren lipid microspheres 1.3 mL in NaCl (PF) 0.9% 10 mL injection (DEFINITY) INTRAVENOUS DIRECTED PRN sodium chloride 0.9 % (flush) 10 mL (BD POSIFLUSH) 10 mL INTRAVENOUS DIRECTED PRN Objective BP 134/76 (BP Site: Left Arm, BP Position: Sitting, BP Cuff Size: Large Adult) Resp 28 Ht 165.7 cm (5' 5.25 ) Wt 105.6 kg (232 lb 14.4 oz) SpO2 97% BMI 38.46 kg/m Physical Exam Cardiovascular: Rate and Rhythm: Normal rate. Rhythm irregular. Heart sounds: S1 normal and S2 normal. Murmur heard. Systolic murmur is present with a grade of 1/6. Pulmonary: Breath sounds: Normal breath sounds. No wheezing or rales. Abdominal: Palpations: Abdomen is soft. Tenderness: There is no abdominal tenderness. Musculoskeletal: Right lower leg: No edema. Left lower leg: No edema. Neurological: General: No focal deficit present. Mental Status: He is alert. Gait: Gait normal. Psychiatric: Mood and Affect: Mood normal. Behavior: Behavior normal. Assessment and Plan 1. Medicare annual wellness visit, subsequent - ICD9: V70.0, ICD10: Z00.00 (primary diagnosis) See other note. 2. Centrilobular emphysema (HCC) - ICD9: 492.8, ICD10: J43.2 Stable. 3. Secondary pulmonary arterial hypertension (HCC) - ICD9: 416.8, ICD10: I27.21 Controlled. 4. Chronic atrial fibrillation (HCC) - ICD9: 427.31, ICD10: I48.20 Stable. - CBC - METOPROLOL TARTRATE 75 MG TABLET 5. Stage 3a chronic kidney disease (HCC) - ICD9: 585.3, ICD10: N18.31 - eGFR: will be rechecked. 6. S/P TAVR (transcatheter aortic valve replacement) - ICD9: V43.3, ICD10: Z95.2 Medication list updated. - METOPROLOL TARTRATE 75 MG TABLET 7. Primary hypertension - ICD9: 401.9, ICD10: I10 - Improving control - Continue current medications - COMP METABOLIC PANEL - LIPID PANEL BASIC 8. Nocturnal hypoxia - ICD9: 327.24, ICD10: G47.34 Using O2 at night as needed. 9. NOAM (obstructive sleep apnea) cannot tolerate CPAP - ICD9: 327.23, ICD10: G47.33 See above. 10. Impaired fasting glucose - ICD9: 790.21, ICD10: R73.01 Recheck. - HGB A1C 11. Essential hypertension - ICD9: 401.9, ICD10: I10 - Improving control - Continue current medications - POTASSIUM CHLORIDE ER 20 MEQ TABLET,EXTENDED RELEASE(PART/CRYST) Tomy Hernandez MD Javier Degroot is a 77 year old male here for a Medicare Subsequent Annual Wellness Visit Health Risk Assessment In general, health is: Fair Concerns with balance: Not at all Concerns with teeth or dentures: Not at all Concerns with sexual function: Not at all [place] anxious, stressed, angry, irritable, lonely, isolated, or had thoughts of hurting themself: Not at all Has little interest or pleasure in doing things: Not at all Bothered by feeling down, depressed, or hopeless: Not at all Needs help with grocery shopping, cooking, housework, bathing, grooming, dressing, eating, sitting or standing, walking, using the toilet, handling finances, taking medications, using the telephone, or driving: No Following safety precautions in the home environment and vehicle: removed throw rugs from floors, installed grab bars in the bathroom, handrails in stairwells, having adequate lighting, wearing seatbelt at all times?: Yes Smokes cigarettes, vapes, or chew tobacco: No Eats healthy foods including fruits, vegetables, whole grains, and fiber-rich foods: Nearly every day Number of days per week engages in exercise: Patient refused Average alcohol consumption: Never Current Providers Specialists: I have reviewed specialist-related care of the patient in the medical record. Current care team: Patient Care Team: Tomy Hernandez MD as PCP - General (Internal Medicine) Familia Pratt RN as Charging Car Operator (Internal Medicine) Christopher Rivera MD(Cardiology) Bran Russell (Pulmonary Disease) Kimmy Sanchez MD, (Surgery) Iliana Lamb MD (Orthopedics) Swetha Engle DPM (Podiatry) Ruma Dickerson (Urology) Jos Vela MD (Ophthalmology) Kathy Oliva MD (ENT-audiology) [employer] [facility] [employer] (Oxygen supplier). Medical/Family history review Reviewed and updated problem list, medical/surgical/family/social history, medications, and allergies. Opioid use review Patient is not currently using opioids. Depression screening Depression Screening PHQ-2 Score YESICA-2 Total Score 06/22/2022 0 - Depression screening tool completed and reviewed. Based on score and interview, patient is not at risk for depression. Screening tool discussed with patient, and I recommended no further intervention at this time. Cognitive screening Mini Cog Score: 5 Cognitive screening reviewed and no further action needed (score 3-5) Functional Observation Was the patient's timed Up & Go test unsteady or ? 12 seconds? No Advance Care Planning End of Life planning discussed, including patient's advanced directive wishes: Yes Measurements BP 134/76 Resp 28 Ht 5' 5.25 (1.66m) Wt 232 lb 14.4 oz (105.6kg) SpO2 97% BMI 38.48 kg/(m^2). Visual acuity (required for Welcome to Medicare): follows with optometry/ophthalmology and Right: 20/70 Left: 20/ 50 Both: 20/50 Hearing Evaluation: wears hearing aids Assessment/Plan - Counseled on healthy diet and regular exercise - Discussed need for and benefit of weight loss. BMI 38.46 kg/(m^2) - Fall avoidance - Depression screening documented in this encounter [facility] 03-22-2023 Instructions Tomy Hernandez MD - 03/22/2023 5:49 PM EDT Recombinant shingles vaccine (Shingrix) is recommended; 2 doses 2-6 months apart. Please read information, check with your insurance, and schedule vaccination at your local pharmacy. A prescription is not required. If you are certain you have coverage to receive this vaccine in the office, we can schedule this for you. documented in this encounter [facility] 03-08-2023 Note HNO ID: [id number] Author: Familia Pratt RN Service: ? Author Type: Registered Nurse Type: Progress Notes Filed: 03/08/2023 5:54 PM Note Text: CDM Telephonic Outreach Provider Action/FYI CDM: COPD, CKD Called Pt to verify symptoms and needs, line was busy, unable to leave a message. Contacted for: Routine Telephonic Outreach Contact made with patient: No, unable to leave message. Will reattempt call Familia Pratt RN March 08, 2023 5:52 PM [facility] 03-05-2023 Note Patient Outreach (AM [facility]) JAVIER DEGROOT ([id number]) 1945 M Date Time Provider Department 03/05/23 FAMILIA PRATT [id number] During your visit today, we recorded the following information about you: Familia Pratt RN 03/08/2023 5:54 PM Signed CDM Telephonic Outreach Provider Action/FYI CDM: COPD, CKD Called Pt to verify symptoms and needs, line was busy, unable to leave a message. Contacted for: Routine Telephonic Outreach Contact made with patient: No, unable to leave message. Will reattempt call Familia Pratt RN March 05, 2023 10:41 AM Familia Pratt RN 03/08/2023 5:54 PM Signed CDM Telephonic Outreach Provider Action/FYI CDM: COPD, CKD Called Pt to verify symptoms and needs, line was busy, unable to leave a message. Contacted for: Routine Telephonic Outreach Contact made with patient: No, unable to leave message. Will reattempt call Familia Pratt RN March 08, 2023 5:52 PM Allergies As of Date: 03/05/2023 Noted Allergy Reaction LISINOPRIL 10/15/2014 3 - Cough Date Reviewed: 06/30/2022 Reviewed by: Venita Crow MA - Fully Assessed Reason for Visit: Community Monitoring Outreach [Other] Prescriptions as of 03/08/2023 - tamsulosin (FLOMAX) 0.4 mg Take 2 capsules by mouth daily at bedtime. - finasteride (PROSCAR) 5 mg tablet Take 1 tablet by mouth once daily. - atorvastatin (LIPITOR) 10 mg tablet Take 10 mg by mouth once daily. - COLLAGEN MISC Take 2 capsules by mouth once daily. - acetaminophen (TYLENOL ARTHRITIS PAIN ORAL) Take 1,300 mg by mouth as needed. - dilTIAZem (CARDIZEM) 120 mg tablet Take 1 tablet by mouth twice daily. - aspirin 81 mg chewable tablet Take 1 tablet by mouth once daily. - metoprolol tartrate, short acting, (LOPRESSOR) 50 mg tablet Take 1.5 tablets by mouth twice daily. - potassium chloride ER (K-DUR, KLOR-CON) 20 mEq tablet Take 20 mEq by mouth twice daily. - Docusate Sodium 250 mg capsule Take 250 mg by mouth twice daily. - furosemide (LASIX) 40 mg tablet Take 40 mg by mouth once daily. - apixaban (ELIQUIS) 5 mg tab tab(s) Take 1 tablet by mouth twice daily. Facility-Administered Medications as of 03/08/2023 - perflutren lipid microspheres 1.3 mL in NaCl (PF) 0.9% 10 mL injection (DEFINITY) - sodium chloride 0.9 % (flush) 10 mL (BD POSIFLUSH) Problem List As Of Date 03/05/2023 Noted Resolved Elevated prostate specific antigen (PSA) [R97.2* 09/16/2021 OVERWEIGHT [E66.9] 05/28/2005 04/08/2015 Unspecified disorder of prostate [N42.9] 05/28/2005 04/13/2016 Personal history of tobacco use, presenting haz*08/26/2005 04/13/2016 Other and unspecified hyperlipidemia [E78.5] 02/24/2006 04/13/2016 ERECTILE DYSFUNCTION [F52.9] 09/09/2006 04/13/2016 Benign neoplasm of colon [D12.6] 06/16/2011 Encounter for preprocedural cardiovascular exam*06/16/2011 09/16/2021 BPH (benign prostatic hyperplasia) [N40.0] 09/30/2011 Irregular heart rate [I49.9] 09/30/2011 04/13/2016 Benign neoplasm of rectum and anal canal [D12.8*12/14/2011 04/13/2016 Chronic sinusitis [J32.9] 03/18/2012 Tobacco use [Z72.0] 03/18/2012 04/13/2016 Urinary retention [R33.9] 07/25/2012 01/27/2018 Hypertension [I10] 10/12/2013 Personal history of pulmonary embolism [Z86.711]10/04/2015 Chronic atrial fibrillation (HCC) [I48.20] 10/04/2015 Hyperlipidemia [E78.5] 01/06/2016 Adenopathy, hilar [R59.0] 04/13/2016 01/27/2018 Adenoma of left adrenal gland [D35.02] 04/13/2016 01/27/2018 Centrilobular emphysema (HCC) [J43.2] 04/13/2016 Obesity, Class II, 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] 04/13/2019 Positive colorectal cancer screening using [place]*05/02/2020 Aortic valve stenosis [I35.0] 11/26/2020 Nocturnal hypoxia [G47.34] 11/26/2020 Venous insufficiency of both lower extremities *04/28/2021 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 Obesity (BMI 35.0-39.9 without comorbidity) [E6*07/17/2021 Dependence on continuous supplemental oxygen [Z*08/22/2021 09/16/2021 Impaired fasting glucose [R73.01] 03/18/2022 Secondary pulmonary arterial hypertension (HCC)*03/18/2022 Stage 3a chronic kidney disease (HCC) [N18.31] 03/18/2022 Encounter Status:Closed by FAMILIA PRATT on 03/08/23 [facility] 03-05-2023 Note HNO ID: [id number] Author: Familia Pratt RN Service: ? Author Type: Registered Nurse Type: Progress Notes Filed: 03/08/2023 5:54 PM Note Text: CDM Telephonic Outreach Provider Action/FYI CDM: COPD, CKD Called Pt to verify symptoms and needs, line was busy, unable to leave a message. Contacted for: Routine Telephonic Outreach Contact made with patient: No, unable to leave message. Will reattempt call Familia Pratt RN March 05, 2023 10:41 AM [facility] 02-11-2023 Note HNO ID: [id number] Author: Familia Pratt RN Service: ? Author Type: Registered Nurse Type: Progress Notes Filed: 02/11/2023 4:01 PM Note Text: CDM Telephonic Outreach Provider Action/FYI CDM: COPD, CKD Called Pt to verify symptoms and needs, line was busy, unable to leave a message. Contacted for: Routine Telephonic Outreach Contact made with patient: No, unable to leave message. Will reattempt call Familia Pratt RN February 11, 2023 4:00 PM [facility] 02-11-2023 History of Presen t illness Narrative CDM Telephonic Outreach Provider Action/FYI CDM: COPD, CKD Called Pt to verify symptoms and needs, line was busy, unable to leave a message. Contacted for: Routine Telephonic Outreach Contact made with patient: No, unable to leave message. Will reattempt call Familia Pratt RN February 11, 2023 4:00 PM CDM Telephonic Outreach Provider Action/FYI CDM: COPD, CKD Called Pt, left a message instructed to call PCP with any changes in condition or needs. Contacted for: Routine Telephonic Outreach Contact made with patient: No, left message. Familia Pratt RN February 10, 2023 3:34 PM documented in this encounter [facility] 02-10-2023 Note HNO ID: [id number] Author: Familia Pratt RN Service: ? Author Type: Registered Nurse Type: Progress Notes Filed: 02/11/2023 4:01 PM Note Text: CDM Telephonic Outreach Provider Action/FYI CDM: COPD, CKD Called Pt, left a message instructed to call PCP with any changes in condition or needs. Contacted for: Routine Telephonic Outreach Contact made with patient: No, left message. Familia Pratt RN February 10, 2023 3:34 PM [facility] 02-10-2023 Note Patient Outreach (AM [facility]) JAIVER DEGROOT ([id number]) 1945 Date Time Provider Department 02/10/23 FAMILIA PRATT During your visit today, we recorded the following information about you: Familia Pratt RN 02/11/2023 4:01 PM Signed CDM Telephonic Outreach Provider Action/FYI CDM: COPD, CKD Called Pt, left a message instructed to call PCP with any changes in condition or needs. Contacted for: Routine Telephonic Outreach Contact made with patient: No, left message. Familia Pratt RN February 10, 2023 3:34 PM Familia Pratt RN 02/11/2023 4:01 PM Signed CDM Telephonic Outreach Provider Action/FYI CDM: COPD, CKD Called Pt to verify symptoms and needs, line was busy, unable to leave a message. Contacted for: Routine Telephonic Outreach Contact made with patient: No, unable to leave message. Will reattempt call Familia Pratt RN February 11, 2023 4:00 PM Allergies As of Date: 02/10/2023 Noted Allergy Reaction LISINOPRIL 10/15/2014 3 - Cough Date Reviewed: 06/30/2022 Reviewed by: Venita Crow MA - Fully Assessed Reason for Visit: Community Monitoring Outreach [Other] Prescriptions as of 02/11/2023 - tamsulosin (FLOMAX) 0.4 mg Take 2 capsules by mouth daily at bedtime. - finasteride (PROSCAR) 5 mg tablet Take 1 tablet by mouth once daily. - atorvastatin (LIPITOR) 10 mg tablet Take 10 mg by mouth once daily. - COLLAGEN MISC Take 2 capsules by mouth once daily. - acetaminophen (TYLENOL ARTHRITIS PAIN ORAL) Take 1,300 mg by mouth as needed. - dilTIAZem (CARDIZEM) 120 mg tablet Take 1 tablet by mouth twice daily. - aspirin 81 mg chewable tablet Take 1 tablet by mouth once daily. - metoprolol tartrate, short acting, (LOPRESSOR) 50 mg tablet Take 1.5 tablets by mouth twice daily. - potassium chloride ER (K-DUR, KLOR-CON) 20 mEq tablet Take 20 mEq by mouth twice daily. - Docusate Sodium 250 mg capsule Take 250 mg by mouth twice daily. - furosemide (LASIX) 40 mg tablet Take 40 mg by mouth once daily. - apixaban (ELIQUIS) 5 mg tab tab(s) Take 1 tablet by mouth twice daily. Facility-Administered Medications as of 02/11/2023 - perflutren lipid microspheres 1.3 mL in NaCl (PF) 0.9% 10 mL injection (DEFINITY) - sodium chloride 0.9 % (flush) 10 mL (BD POSIFLUSH) Problem List As Of Date 02/10/2023 Noted Resolved Elevated prostate specific antigen (PSA) [R97.2* 09/16/2021 OVERWEIGHT [E66.9] 05/28/2005 04/08/2015 Unspecified disorder of prostate [N42.9] 05/28/2005 04/13/2016 Personal history of tobacco use, presenting haz*08/26/2005 04/13/2016 Other and unspecified hyperlipidemia [E78.5] 02/24/2006 04/13/2016 ERECTILE DYSFUNCTION [F52.9] 09/09/2006 04/13/2016 Benign neoplasm of colon [D12.6] 06/16/2011 Encounter for preprocedural cardiovascular exam*06/16/2011 09/16/2021 BPH (benign prostatic hyperplasia) [N40.0] 09/30/2011 Irregular heart rate [I49.9] 09/30/2011 04/13/2016 Benign neoplasm of rectum and anal canal [D12.8*12/14/2011 04/13/2016 Chronic sinusitis [J32.9] 03/18/2012 Tobacco use [Z72.0] 03/18/2012 04/13/2016 Urinary retention [R33.9] 07/25/2012 01/27/2018 Hypertension [I10] 10/12/2013 Personal history of pulmonary embolism [Z86.711]10/04/2015 Chronic atrial fibrillation (HCC) [I48.20] 10/04/2015 Hyperlipidemia [E78.5] 01/06/2016 Adenopathy, hilar [R59.0] 04/13/2016 01/27/2018 Adenoma of left adrenal gland [D35.02] 04/13/2016 01/27/2018 Centrilobular emphysema (HCC) [J43.2] 04/13/2016 Obesity, Class II, 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] 04/13/2019 Positive colorectal cancer screening using [facility]*05/02/2020 Aortic valve stenosis [I35.0] 11/26/2020 Nocturnal hypoxia [G47.34] 11/26/2020 Venous insufficiency of both lower extremities *04/28/2021 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 Obesity (BMI 35.0-39.9 without comorbidity) [E6*07/17/2021 Dependence on continuous supplemental oxygen [Z*08/22/2021 09/16/2021 Impaired fasting glucose [R73.01] 03/18/2022 Secondary pulmonary arterial hypertension (HCC)*03/18/2022 Stage 3a chronic kidney disease (HCC) [N18.31] 03/18/2022 Encounter Status:Closed by FAMILIA PRATT on 02/11/23 [facility] 01-14-2023 Note Patient Outreach (AM [facility]) JAVIER DEGROOT ([id number]) 1945 M Date Time Provider Department 01/14/23 FAMILIA PRATT During your visit today, we recorded the following information about you: Familia Pratt RN 01/14/2023 11:03 AM Addendum CDM Telephonic Outreach Provider Action/FYI CDM: COPD, CKD BP 126/64, Pulse Oximeter 95-97%, Oxygen 2 liters at HS Spk with Pt denies symptoms, or needs. Instructed to call PCP with any changes in condition Pt verbalized understanding and appreciation for call. Contacted for: Routine Telephonic Outreach Contact made with patient: Yes Patient identified by name and date of . Discussed care with patient Are you experiencing any new or worsening symptoms you need to talk about today? No Disease Specific Do you check your blood pressure at home? Yes, Enter readings: 126/64 Do you have new or worsening shortness of breath with activity? No Do you feel like you are dehydrated for any reason, including not being able to eat or drink normally, or having less urine/much darker urine than normal for you? No Do you check your daily weight at home? Yes, Have you noticed a sudden gain in weight greater than three pounds in a day or three pounds in a week? No and Do you have new or worsening cough? No Do you have new or worsening wheezing? No Do you need to use your rescue (Albuterol) inhaler or nebulizer more often than normal? No Based on credit report checker, the following disposition is advised: Routed to: No Action Needed DESTINEY Education Provided this Outreach: No Familia Pratt RN January 14, 2023 10:52 AM Allergies As of Date: 01/14/2023 Noted Allergy Reaction LISINOPRIL 10/15/2014 3 - Cough Date Reviewed: 06/30/2022 Reviewed by: Venita Crow MA - Fully Assessed Reason for Visit: Community Monitoring Outreach [Other] Prescriptions as of 01/14/2023 - tamsulosin (FLOMAX) 0.4 mg Take 2 capsules by mouth daily at bedtime. - finasteride (PROSCAR) 5 mg tablet Take 1 tablet by mouth once daily. - atorvastatin (LIPITOR) 10 mg tablet Take 10 mg by mouth once daily. - COLLAGEN MISC Take 2 capsules by mouth once daily. - acetaminophen (TYLENOL ARTHRITIS PAIN ORAL) Take 1,300 mg by mouth as needed. - dilTIAZem (CARDIZEM) 120 mg tablet Take 1 tablet by mouth twice daily. - aspirin 81 mg chewable tablet Take 1 tablet by mouth once daily. - metoprolol tartrate, short acting, (LOPRESSOR) 50 mg tablet Take 1.5 tablets by mouth twice daily. - potassium chloride ER (K-DUR, KLOR-CON) 20 mEq tablet Take 20 mEq by mouth twice daily. - Docusate Sodium 250 mg capsule Take 250 mg by mouth twice daily. - furosemide (LASIX) 40 mg tablet Take 40 mg by mouth once daily. - apixaban (ELIQUIS) 5 mg tab tab(s) Take 1 tablet by mouth twice daily. Facility-Administered Medications as of 01/14/2023 - perflutren lipid microspheres 1.3 mL in NaCl (PF) 0.9% 10 mL injection (DEFINITY) - sodium chloride 0.9 % (flush) 10 mL (BD POSIFLUSH) Problem List As Of Date 01/14/2023 Noted Resolved Elevated prostate specific antigen (PSA) [R97.2* 09/16/2021 OVERWEIGHT [E66.9] 05/28/2005 04/08/2015 Unspecified disorder of prostate [N42.9] 05/28/2005 04/13/2016 Personal history of tobacco use, presenting haz*08/26/2005 04/13/2016 Other and unspecified hyperlipidemia [E78.5] 02/24/2006 04/13/2016 ERECTILE DYSFUNCTION [F52.9] 09/09/2006 04/13/2016 Benign neoplasm of colon [D12.6] 06/16/2011 Encounter for preprocedural cardiovascular exam*06/16/2011 09/16/2021 BPH (benign prostatic hyperplasia) [N40.0] 09/30/2011 Irregular heart rate [I49.9] 09/30/2011 04/13/2016 Benign neoplasm of rectum and anal canal [D12.8*12/14/2011 04/13/2016 Chronic sinusitis [J32.9] 03/18/2012 Tobacco use [Z72.0] 03/18/2012 04/13/2016 Urinary retention [R33.9] 07/25/2012 01/27/2018 Hypertension [I10] 10/12/2013 Personal history of pulmonary embolism [Z86.711]10/04/2015 Chronic atrial fibrillation (HCC) [I48.20] 10/04/2015 Hyperlipidemia [E78.5] 01/06/2016 Adenopathy, hilar [R59.0] 04/13/2016 01/27/2018 Adenoma of left adrenal gland [D35.02] 04/13/2016 01/27/2018 Centrilobular emphysema (HCC) [J43.2] 04/13/2016 Obesity, Class II, 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] 04/13/2019 Positive colorectal cancer screening using [facility]*05/02/2020 Aortic valve stenosis [I35.0] 11/26/2020 Nocturnal hypoxia [G47.34] 11/26/2020 Venous insufficiency of both lower extremities *04/28/2021 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 Obesity (BMI 35.0-39.9 without comorbidity) [E6*07/17/2021 Dependence on continuous supplemental oxygen [Z*08/22/2021 09/16/2021 Impaired fasting glucose [R73.01] 03/18/2022 Secondary pulmonary arterial hypertension (HCC)*03/18/2022 Stage 3a chronic kidney disease (HCC) [N18.31] 03/18/2022 Encounter Status:Closed by Twila PRATT (more content not included)... [facility] 01-14-2023 Note HNO ID: [id number] Author: Familia Pratt RN Service: ? Author Type: Registered Nurse Type: Progress Notes Filed: 01/14/2023 11:03 AM Note Text: CDM Telephonic Outreach Provider Action/FYI CDM: COPD, CKD BP 126/64, Pulse Oximeter 95-97%, Oxygen 2 liters at HS Spk with Pt denies symptoms, or needs. Instructed to call PCP with any changes in condition Pt verbalized understanding and appreciation for call. Contacted for: Routine Telephonic Outreach Contact made with patient: Yes Patient identified by name and date of . Discussed care with patient Are you experiencing any new or worsening symptoms you need to talk about today? No Disease Specific Do you check your blood pressure at home? Yes, Enter readings: 126/64 Do you have new or worsening shortness of breath with activity? No Do you feel like you are dehydrated for any reason, including not being able to eat or drink normally, or having less urine/much darker urine than normal for you? No Do you check your daily weight at home? Yes, Have you noticed a sudden gain in weight greater than three pounds in a day or three pounds in a week? No and Do you have new or worsening cough? No Do you have new or worsening wheezing? No Do you need to use your rescue (Albuterol) inhaler or nebulizer more often than normal? No Based on credit report checker, the following disposition is advised: Routed to: No Action Needed DESTINEY Education Provided this Outreach: No Familia Pratt RN January 14, 2023 10:52 AM [facility] 01-14-2023 History of Presen t illness Narrative CDM Telephonic Outreach Provider Action/FYI CDM: COPD, CKD BP 126/64, Pulse Oximeter 95-97%, Oxygen 2 liters at HS Spk with Pt denies symptoms, or needs. Instructed to call PCP with any changes in condition Pt verbalized understanding and appreciation for call. Contacted for: Routine Telephonic Outreach Contact made with patient: Yes Patient identified by name and date of . Discussed care with patient Are you experiencing any new or worsening symptoms you need to talk about today? No Disease Specific Do you check your blood pressure at home? Yes, Enter readings: 126/64 Do you have new or worsening shortness of breath with activity? No Do you feel like you are dehydrated for any reason, including not being able to eat or drink normally, or having less urine/much darker urine than normal for you? No Do you check your daily weight at home? Yes, Have you noticed a sudden gain in weight greater than three pounds in a day or three pounds in a week? No and Do you have new or worsening cough? No Do you have new or worsening wheezing? No Do you need to use your rescue (Albuterol) inhaler or nebulizer more often than normal? No Based on credit report checker, the following disposition is advised: Routed to: No Action Needed DESTINEY Education Provided this Outreach: No Familia Pratt RN January 14, 2023 10:52 AM documented in this encounter [facility] 12-22-2022 Note HNO ID: [id number] Author: Familia Pratt RN Service: ? Author Type: Registered Nurse Type: Progress Notes Filed: 01/14/2023 10:39 AM Note Text: INSIGHT CDM TELEPHONIC OUTREACH Provider Action/FYI: CDM: COPD, CKD BP 130/68, Pulse Oximeter 95-97 %, T 97.3 Oxygen 2 liters at HS, Wt 244 lbs Pt notes has chronic intermittent Left knee arthritis pain, denies new or worsening COPD/ CKD symptoms. Pt denies needs, questions or concerns, instructed to call PCP with any changes in condition Contact made with patient: Yes Patient identified by name and . Discussed care with patient It?s nice talking to you again. As a reminder, this is our bi-weekly check-in where I will be asking you questions about your health. This will only take a few minutes of your time. Is this a good time? Yes Symptoms What Chronic Disease(s) does the patient have: CKD and COPD Do you check your blood pressures at home? Yes, Enter readings: 130/68 Do you have new or worse shortness of breath with activity? No Do you feel like you are dehydrated for any reason, including not being able to eat or drink normally, or having less urine/much darker urine than normal for you? No Do you check your daily weight at home? Yes, Have you noticed a sudden gain in weight greater than three pounds in a day or three pounds in a week? No and Do you have new or worsening cough? No Do you have new or worsening wheezing? No Do you need to use your rescue (Albuterol) inhaler or nebulizer more often than normal? No Are you having any other symptoms that your PCP needs to know about? No Symptoms: Symptom Escalation DESTINEY Education Ordered -: No The patient required an escalation for symptom(s)? No Medications Do you have any questions about taking your medication or which medications you should be on? No Do you need any medication refills at this time, including any of the medications you might take only when needed? No Social We would like to make sure you have what you need so that your basic needs are met- including your personal safety, food, housing, transportation and medications? Would you like to speak with a social work swat team member to help give you support for any of these needs? No It can be normal to feel anxious or down during a time like this. Would you like to talk to a mental health professional about how you have been feeling? No Closing Thank you for taking the time to talk with me today. We want to work with you to ensure that we are keeping your medical condition(s) well-controlled and to keep you healthy and out of the doctor's office or hospital. It?s also not too late for me to sign you up for automated weekly questionnaires through [employer]. This is an easy way for us to stay connected each week. Are you interested? No, I understand. We can always sign you up in the future if you change your mind. Just as a reminder, will continue to call you every other week to check in on your health. Our calls should take 10-15 minutes or less. Remember, if you have concerns in between our calls, please call your PCP's office right away. Thank you. Enter next patient outreach date for two weeks on the same day of the week as today in the Track Pt Outreach and End outreach. Familia Pratt RN December 22, 2022 3:11 PM [facility] 12-22-2022 Note Patient Outreach (AM [facility]) JAVIER DEGROOT ([id number]) 1945 M Date Time Provider Department 12/22/22 FAMILIA PRATT During your visit today, we recorded the following information about you: Familia Pratt RN 01/14/2023 10:39 AM Addendum INSIGHT CDM TELEPHONIC OUTREACH Provider Action/FYI: CDM: COPD, CKD BP 130/68, Pulse Oximeter 95-97 %, T 97.3 Oxygen 2 liters at HS, Wt 244 lbs Pt notes has chronic intermittent Left knee arthritis pain, denies new or worsening COPD/ CKD symptoms. Pt denies needs, questions or concerns, instructed to call PCP with any changes in condition Contact made with patient: Yes Patient identified by name and . Discussed care with patient It?s nice talking to you again. As a reminder, this is our bi-weekly check-in where I will be asking you questions about your health. This will only take a few minutes of your time. Is this a good time? Yes Symptoms What Chronic Disease(s) does the patient have: CKD and COPD Do you check your blood pressures at home? Yes, Enter readings: 130/68 Do you have new or worse shortness of breath with activity? No Do you feel like you are dehydrated for any reason, including not being able to eat or drink normally, or having less urine/much darker urine than normal for you? No Do you check your daily weight at home? Yes, Have you noticed a sudden gain in weight greater than three pounds in a day or three pounds in a week? No and Do you have new or worsening cough? No Do you have new or worsening wheezing? No Do you need to use your rescue (Albuterol) inhaler or nebulizer more often than normal? No Are you having any other symptoms that your PCP needs to know about? No Symptoms: Symptom Escalation DESTINEY Education Ordered -: No The patient required an escalation for symptom(s)? No Medications Do you have any questions about taking your medication or which medications you should be on? No Do you need any medication refills at this time, including any of the medications you might take only when needed? No Social We would like to make sure you have what you need so that your basic needs are met- including your personal safety, food, housing, transportation and medications? Would you like to speak with a social work swat team member to help give you support for any of these needs? No It can be normal to feel anxious or down during a time like this. Would you like to talk to a mental health professional about how you have been feeling? No Closing Thank you for taking the time to talk with me today. We want to work with you to ensure that we are keeping your medical condition(s) well-controlled and to keep you healthy and out of the doctor's office or hospital. It?s also not too late for me to sign you up for automated weekly questionnaires through [employer]. This is an easy way for us to stay connected each week. Are you interested? No, I understand. We can always sign you up in the future if you change your mind. Just as a reminder, will continue to call you every other week to check in on your health. Our calls should take 10-15 minutes or less. Remember, if you have concerns in between our calls, please call your PCP's office right away. Thank you. Enter next patient outreach date for two weeks on the same day of the week as today in the Track Pt Outreach and End outreach. Familia Pratt RN December 22, 2022 3:11 PM Allergies As of Date: 12/22/2022 Noted Allergy Reaction LISINOPRIL 10/15/2014 3 - Cough Date Reviewed: 06/30/2022 Reviewed by: Venita Crow MA - Fully Assessed Reason for Visit: Community Monitoring Outreach [Other] Prescriptions as of 01/14/2023 - tamsulosin (FLOMAX) 0.4 mg Take 2 capsules by mouth daily at bedtime. - finasteride (PROSCAR) 5 mg tablet Take 1 tablet by mouth once daily. - atorvastatin (LIPITOR) 10 mg tablet Take 10 mg by mouth once daily. - COLLAGEN MISC Take 2 capsules by mouth once daily. - acetaminophen (TYLENOL ARTHRITIS PAIN ORAL) Take 1,300 mg by mouth as needed. - dilTIAZem (CARDIZEM) 120 mg tablet Take 1 tablet by mouth twice daily. - aspirin 81 mg chewable tablet Take 1 tablet by mouth once daily. - metoprolol tartrate, short acting, (LOPRESSOR) 50 mg tablet Take 1.5 tablets by mouth twice daily. - potassium chloride ER (K-DUR, KLOR-CON) 20 mEq tablet Take 20 mEq by mouth twice daily. - Docusate Sodium 250 mg capsule Take 250 mg by mouth twice daily. - furosemide (LASIX) 40 mg tablet Take 40 mg by mouth once daily. - apixaban (ELIQUIS) 5 mg tab tab(s) Take 1 tablet by mouth twice daily. Facility-Administered Medications as of 01/14/2023 - perflutren lipid microspheres 1.3 mL in NaCl (PF) 0.9% 10 mL injection (DEFINITY) - sodium chloride 0.9 % (flush) 10 mL (BD POSIFLUSH) Problem List As Of Date 12/22/2022 Noted Resolved (more content not included)... [facility] 11-23-2022 Note Patient Outreach (AM [facility]) JAVIER DEGROOT ([id number]) 1945 M Date Time Provider Department 11/23/22 FAMILIA PRATT During your visit today, we recorded the following information about you: Familia Pratt RN 11/23/2022 10:43 AM Signed INSIGHT CDM TELEPHONIC OUTREACH Provider Action/FYI: CDM: COPD, CKD Spk with Pt denies symptoms, or needs. BP 122/68-72, Pulse Oximeter 95-98%, Tempt 96.9 Pt reports scheduled 12/02/22 for a Colonoscopy, 12/16/22 Appt with Pulmonology Instructed to call PCP with any changes in condition Contact made with patient: Yes Patient identified by name and . Discussed care with patient It?s nice talking to you again. As a reminder, this is our bi-weekly check-in where I will be asking you questions about your health. This will only take a few minutes of your time. Is this a good time? Yes Symptoms What Chronic Disease(s) does the patient have: CKD and COPD Do you check your blood pressures at home? Yes, Enter readings: 122/68-72 Do you have new or worse shortness of breath with activity? No Do you feel like you are dehydrated for any reason, including not being able to eat or drink normally, or having less urine/much darker urine than normal for you? No Do you check your daily weight at home? Yes, Have you noticed a sudden gain in weight greater than three pounds in a day or three pounds in a week? No and Do you have new or worsening cough? No Do you have new or worsening wheezing? No Do you need to use your rescue (Albuterol) inhaler or nebulizer more often than normal? No Are you having any other symptoms that your PCP needs to know about? No Symptoms: Symptom Escalation DESTINEY Education Ordered -: No The patient required an escalation for symptom(s)? No Medications Do you have any questions about taking your medication or which medications you should be on? No Do you need any medication refills at this time, including any of the medications you might take only when needed? No Social We would like to make sure you have what you need so that your basic needs are met- including your personal safety, food, housing, transportation and medications? Would you like to speak with a social work swat team member to help give you support for any of these needs? No It can be normal to feel anxious or down during a time like this. Would you like to talk to a mental health professional about how you have been feeling? No Closing Thank you for taking the time to talk with me today. We want to work with you to ensure that we are keeping your medical condition(s) well-controlled and to keep you healthy and out of the doctor's office or hospital. It?s also not too late for me to sign you up for automated weekly questionnaires through [employer]. This is an easy way for us to stay connected each week. Are you interested? No, I understand. We can always sign you up in the future if you change your mind. Just as a reminder, will continue to call you every other week to check in on your health. Our calls should take 10-15 minutes or less. Remember, if you have concerns in between our calls, please call your PCP's office right away. Thank you. Enter next patient outreach date for two weeks on the same day of the week as today in the Track Pt Outreach and End outreach. Familia Pratt RN November 23, 2022 10:19 AM Allergies As of Date: 11/23/2022 Noted Allergy Reaction LISINOPRIL 10/15/2014 3 - Cough Date Reviewed: 06/30/2022 Reviewed by: Venita Crow MA - Fully Assessed Reason for Visit: Community Monitoring Outreach [Other] Prescriptions as of 11/23/2022 - tamsulosin (FLOMAX) 0.4 mg Take 2 capsules by mouth daily at bedtime. - finasteride (PROSCAR) 5 mg tablet Take 1 tablet by mouth once daily. - atorvastatin (LIPITOR) 10 mg tablet Take 10 mg by mouth once daily. - COLLAGEN MISC Take 2 capsules by mouth once daily. - acetaminophen (TYLENOL ARTHRITIS PAIN ORAL) Take 1,300 mg by mouth as needed. - dilTIAZem (CARDIZEM) 120 mg tablet Take 1 tablet by mouth twice daily. - aspirin 81 mg chewable tablet Take 1 tablet by mouth once daily. - metoprolol tartrate, short acting, (LOPRESSOR) 50 mg tablet Take 1.5 tablets by mouth twice daily. - potassium chloride ER (K-DUR, KLOR-CON) 20 mEq tablet Take 20 mEq by mouth twice daily. - Docusate Sodium 250 mg capsule Take 250 mg by mouth twice daily. - furosemide (LASIX) 40 mg tablet Take 40 mg by mouth once daily. - apixaban (ELIQUIS) 5 mg tab tab(s) Take 1 tablet by mouth twice daily. Facility-Administered Medications as of 11/23/2022 - perflutren lipid microspheres 1.3 mL in NaCl (PF) 0.9% 10 mL injection (DEFINITY) - sodium chloride 0.9 % (flush) 10 mL (BD POSIFLUSH) Problem List As Of Date 11/23/2022 Noted Resolved Elevated prostate specific antigen (PSA) [R97.2* 01/0 (more content not included)... [facility] 11-23-2022 Note HNO ID: [id number] Author: Familia Pratt RN Service: ? Author Type: Registered Nurse Type: Progress Notes Filed: 11/23/2022 10:43 AM Note Text: INSIGHT CDM TELEPHONIC OUTREACH Provider Action/FYI: CDM: COPD, CKD Spk with Pt denies symptoms, or needs. BP 122/68-72, Pulse Oximeter 95-98%, Tempt 96.9 Pt reports scheduled 12/02/22 for a Colonoscopy, 12/16/22 Appt with Pulmonology Instructed to call PCP with any changes in condition Contact made with patient: Yes Patient identified by name and . Discussed care with patient It?s nice talking to you again. As a reminder, this is our bi-weekly check-in where I will be asking you questions about your health. This will only take a few minutes of your time. Is this a good time? Yes Symptoms What Chronic Disease(s) does the patient have: CKD and COPD Do you check your blood pressures at home? Yes, Enter readings: 122/68-72 Do you have new or worse shortness of breath with activity? No Do you feel like you are dehydrated for any reason, including not being able to eat or drink normally, or having less urine/much darker urine than normal for you? No Do you check your daily weight at home? Yes, Have you noticed a sudden gain in weight greater than three pounds in a day or three pounds in a week? No and Do you have new or worsening cough? No Do you have new or worsening wheezing? No Do you need to use your rescue (Albuterol) inhaler or nebulizer more often than normal? No Are you having any other symptoms that your PCP needs to know about? No Symptoms: Symptom Escalation DESTINEY Education Ordered -: No The patient required an escalation for symptom(s)? No Medications Do you have any questions about taking your medication or which medications you should be on? No Do you need any medication refills at this time, including any of the medications you might take only when needed? No Social We would like to make sure you have what you need so that your basic needs are met- including your personal safety, food, housing, transportation and medications? Would you like to speak with a social work swat team member to help give you support for any of these needs? No It can be normal to feel anxious or down during a time like this. Would you like to talk to a mental health professional about how you have been feeling? No Closing Thank you for taking the time to talk with me today. We want to work with you to ensure that we are keeping your medical condition(s) well-controlled and to keep you healthy and out of the doctor's office or hospital. It?s also not too late for me to sign you up for automated weekly questionnaires through [employer]. This is an easy way for us to stay connected each week. Are you interested? No, I understand. We can always sign you up in the future if you change your mind. Just as a reminder, will continue to call you every other week to check in on your health. Our calls should take 10-15 minutes or less. Remember, if you have concerns in between our calls, please call your PCP's office right away. Thank you. Enter next patient outreach date for two weeks on the same day of the week as today in the Track Pt Outreach and End outreach. Familia Pratt RN November 23, 2022 10:19 AM [facility] 11-23-2022 History of Presen t illness Narrative INSIGHT CDM TELEPHONIC OUTREACH Provider Action/FYI: CDM: COPD, CKD Spk with Pt denies symptoms, or needs. BP 122/68-72, Pulse Oximeter 95-98%, Tempt 96.9 Pt reports scheduled 12/02/22 for a Colonoscopy, 12/16/22 Appt with Pulmonology Instructed to call PCP with any changes in condition Contact made with patient: Yes Patient identified by name and . Discussed care with patient It s nice talking to you again. As a reminder, this is our bi-weekly check-in where I will be asking you questions about your health. This will only take a few minutes of your time. Is this a good time? Yes Symptoms What Chronic Disease(s) does the patient have: CKD and COPD Do you check your blood pressures at home? Yes, Enter readings: 122/68-72 Do you have new or worse shortness of breath with activity? No Do you feel like you are dehydrated for any reason, including not being able to eat or drink normally, or having less urine/much darker urine than normal for you? No Do you check your daily weight at home? Yes, Have you noticed a sudden gain in weight greater than three pounds in a day or three pounds in a week? No and Do you have new or worsening cough? No Do you have new or worsening wheezing? No Do you need to use your rescue (Albuterol) inhaler or nebulizer more often than normal? No Are you having any other symptoms that your PCP needs to know about? No Symptoms: Symptom Escalation DESTINEY Education Ordered -: No The patient required an escalation for symptom(s)? No Medications Do you have any questions about taking your medication or which medications you should be on? No Do you need any medication refills at this time, including any of the medications you might take only when needed? No Social We would like to make sure you have what you need so that your basic needs are met- including your personal safety, food, housing, transportation and medications? Would you like to speak with a social work swat team member to help give you support for any of these needs? No It can be normal to feel anxious or down during a time like this. Would you like to talk to a mental health professional about how you have been feeling? No Closing Thank you for taking the time to talk with me today. We want to work with you to ensure that we are keeping your medical condition(s) well-controlled and to keep you healthy and out of the doctor's office or hospital. It s also not too late for me to sign you up for automated weekly questionnaires through [employer]. This is an easy way for us to stay connected each week. Are you interested? No, I understand. We can always sign you up in the future if you change your mind. Just as a reminder, will continue to call you every other week to check in on your health. Our calls should take 10-15 minutes or less. Remember, if you have concerns in between our calls, please call your PCP's office right away. Thank you. Enter next patient outreach date for two weeks on the same day of the week as today in the Track Pt Outreach and End outreach. Familia Pratt RN November 23, 2022 10:19 AM documented in this encounter [facility] 10-22-2022 Note HNO ID: [id number] Author: Familia Pratt RN Service: ? Author Type: Registered Nurse Type: Progress Notes Filed: 10/22/2022 4:41 PM Note Text: INSIGHT CDM TELEPHONIC OUTREACH Provider Action/FYI: CDM: COPD/ CKD Spk with Pt denies symptoms, BP 122/61, Temp 96.9 Pulse Oximeter 96%, wt 243 lbs Instructed Pt to call PCP with any changes in condition Pt verbalized understanding and appreciation. Denies needs or concerns Contact made with patient: Yes Patient identified by name and . Discussed care with patient It?s nice talking to you again. As a reminder, this is our bi-weekly check-in where I will be asking you questions about your health. This will only take a few minutes of your time. Is this a good time? Yes Symptoms What Chronic Disease(s) does the patient have: CKD and COPD Do you check your blood pressures at home? Yes, Enter readings: 122/61 Do you have new or worse shortness of breath with activity? No Do you feel like you are dehydrated for any reason, including not being able to eat or drink normally, or having less urine/much darker urine than normal for you? No Do you check your daily weight at home? Yes, Have you noticed a sudden gain in weight greater than three pounds in a day or three pounds in a week? No and Do you have new or worsening cough? No Do you have new or worsening wheezing? No Do you need to use your rescue (Albuterol) inhaler or nebulizer more often than normal? No Are you having any other symptoms that your PCP needs to know about? No Symptoms: Symptom Escalation DESTINEY Education Ordered -: No The patient required an escalation for symptom(s)? No Medications Do you have any questions about taking your medication or which medications you should be on? No Do you need any medication refills at this time, including any of the medications you might take only when needed? No Social We would like to make sure you have what you need so that your basic needs are met- including your personal safety, food, housing, transportation and medications? Would you like to speak with a social work swat team member to help give you support for any of these needs? No It can be normal to feel anxious or down during a time like this. Would you like to talk to a mental health professional about how you have been feeling? No Closing Thank you for taking the time to talk with me today. We want to work with you to ensure that we are keeping your medical condition(s) well-controlled and to keep you healthy and out of the doctor's office or hospital. It?s also not too late for me to sign you up for automated weekly questionnaires through [employer]. This is an easy way for us to stay connected each week. Are you interested? No, I understand. We can always sign you up in the future if you change your mind. Just as a reminder, will continue to call you every other week to check in on your health. Our calls should take 10-15 minutes or less. Remember, if you have concerns in between our calls, please call your PCP's office right away. Thank you. Enter next patient outreach date for two weeks on the same day of the week as today in the Track Pt Outreach and End outreach. Familia Pratt RN October 22, 2022 4:27 PM [facility] 10-22-2022 History of Presen t illness Narrative INSIGHT CDM TELEPHONIC OUTREACH Provider Action/FYI: CDM: COPD/ CKD Spk with Pt denies symptoms, BP 122/61, Temp 96.9 Pulse Oximeter 96%, wt 243 lbs Instructed Pt to call PCP with any changes in condition Pt verbalized understanding and appreciation. Denies needs or concerns Contact made with patient: Yes Patient identified by name and . Discussed care with patient It s nice talking to you again. As a reminder, this is our bi-weekly check-in where I will be asking you questions about your health. This will only take a few minutes of your time. Is this a good time? Yes Symptoms What Chronic Disease(s) does the patient have: CKD and COPD Do you check your blood pressures at home? Yes, Enter readings: 122/61 Do you have new or worse shortness of breath with activity? No Do you feel like you are dehydrated for any reason, including not being able to eat or drink normally, or having less urine/much darker urine than normal for you? No Do you check your daily weight at home? Yes, Have you noticed a sudden gain in weight greater than three pounds in a day or three pounds in a week? No and Do you have new or worsening cough? No Do you have new or worsening wheezing? No Do you need to use your rescue (Albuterol) inhaler or nebulizer more often than normal? No Are you having any other symptoms that your PCP needs to know about? No Symptoms: Symptom Escalation EDSTINEY Education Ordered -: No The patient required an escalation for symptom(s)? No Medications Do you have any questions about taking your medication or which medications you should be on? No Do you need any medication refills at this time, including any of the medications you might take only when needed? No Social We would like to make sure you have what you need so that your basic needs are met- including your personal safety, food, housing, transportation and medications? Would you like to speak with a social work swat team member to help give you support for any of these needs? No It can be normal to feel anxious or down during a time like this. Would you like to talk to a mental health professional about how you have been feeling? No Closing Thank you for taking the time to talk with me today. We want to work with you to ensure that we are keeping your medical condition(s) well-controlled and to keep you healthy and out of the doctor's office or hospital. It s also not too late for me to sign you up for automated weekly questionnaires through [employer]. This is an easy way for us to stay connected each week. Are you interested? No, I understand. We can always sign you up in the future if you change your mind. Just as a reminder, will continue to call you every other week to check in on your health. Our calls should take 10-15 minutes or less. Remember, if you have concerns in between our calls, please call your PCP's office right away. Thank you. Enter next patient outreach date for two weeks on the same day of the week as today in the Track Pt Outreach and End outreach. Familia Pratt RN October 22, 2022 4:27 PM documented in this encounter [facility] 10-22-2022 Note Patient Outreach (AM BC) JAVIER DEGROOT ([id number]) 1945 M Date Time Provider Department 10/22/22 FAMILIA PRATT During your visit today, we recorded the following information about you: Familia Pratt RN 10/22/2022 4:41 PM Signed INSIGHT CDM TELEPHONIC OUTREACH Provider Action/FYI: CDM: COPD/ CKD Spk with Pt denies symptoms, BP 122/61, Temp 96.9 Pulse Oximeter 96%, wt 243 lbs Instructed Pt to call PCP with any changes in condition Pt verbalized understanding and appreciation. Denies needs or concerns Contact made with patient: Yes Patient identified by name and . Discussed care with patient It?s nice talking to you again. As a reminder, this is our bi-weekly check-in where I will be asking you questions about your health. This will only take a few minutes of your time. Is this a good time? Yes Symptoms What Chronic Disease(s) does the patient have: CKD and COPD Do you check your blood pressures at home? Yes, Enter readings: 122/61 Do you have new or worse shortness of breath with activity? No Do you feel like you are dehydrated for any reason, including not being able to eat or drink normally, or having less urine/much darker urine than normal for you? No Do you check your daily weight at home? Yes, Have you noticed a sudden gain in weight greater than three pounds in a day or three pounds in a week? No and Do you have new or worsening cough? No Do you have new or worsening wheezing? No Do you need to use your rescue (Albuterol) inhaler or nebulizer more often than normal? No Are you having any other symptoms that your PCP needs to know about? No Symptoms: Symptom Escalation DESTINEY Education Ordered -: No The patient required an escalation for symptom(s)? No Medications Do you have any questions about taking your medication or which medications you should be on? No Do you need any medication refills at this time, including any of the medications you might take only when needed? No Social We would like to make sure you have what you need so that your basic needs are met- including your personal safety, food, housing, transportation and medications? Would you like to speak with a social work swat team member to help give you support for any of these needs? No It can be normal to feel anxious or down during a time like this. Would you like to talk to a mental health professional about how you have been feeling? No Closing Thank you for taking the time to talk with me today. We want to work with you to ensure that we are keeping your medical condition(s) well-controlled and to keep you healthy and out of the doctor's office or hospital. It?s also not too late for me to sign you up for automated weekly questionnaires through [employer]. This is an easy way for us to stay connected each week. Are you interested? No, I understand. We can always sign you up in the future if you change your mind. Just as a reminder, will continue to call you every other week to check in on your health. Our calls should take 10-15 minutes or less. Remember, if you have concerns in between our calls, please call your PCP's office right away. Thank you. Enter next patient outreach date for two weeks on the same day of the week as today in the Track Pt Outreach and End outreach. Familia Pratt RN October 22, 2022 4:27 PM Allergies As of Date: 10/22/2022 Noted Allergy Reaction LISINOPRIL 10/15/2014 3 - Cough Date Reviewed: 06/30/2022 Reviewed by: Venita Crow MA - Fully Assessed Reason for Visit: Community Monitoring Outreach [Other] Prescriptions as of 10/22/2022 - tamsulosin (FLOMAX) 0.4 mg Take 2 capsules by mouth daily at bedtime. - finasteride (PROSCAR) 5 mg tablet Take 1 tablet by mouth once daily. - atorvastatin (LIPITOR) 10 mg tablet Take 10 mg by mouth once daily. - COLLAGEN MISC Take 2 capsules by mouth once daily. - acetaminophen (TYLENOL ARTHRITIS PAIN ORAL) Take 1,300 mg by mouth as needed. - dilTIAZem (CARDIZEM) 120 mg tablet Take 1 tablet by mouth twice daily. - aspirin 81 mg chewable tablet Take 1 tablet by mouth once daily. - metoprolol tartrate, short acting, (LOPRESSOR) 50 mg tablet Take 1.5 tablets by mouth twice daily. - potassium chloride ER (K-DUR, KLOR-CON) 20 mEq tablet Take 20 mEq by mouth twice daily. - Docusate Sodium 250 mg capsule Take 250 mg by mouth twice daily. - furosemide (LASIX) 40 mg tablet Take 40 mg by mouth once daily. - apixaban (ELIQUIS) 5 mg tab tab(s) Take 1 tablet by mouth twice daily. Facility-Administered Medications as of 10/22/2022 - perflutren lipid microspheres 1.3 mL in NaCl (PF) 0.9% 10 mL injection (DEFINITY) - sodium chloride 0.9 % (flush) 10 mL (BD POSIFLUSH) Problem List As Of Date 10/22/2022 Noted Resolved Elevated prostate specific antigen (PSA) [R97.2* 09/16/2021 OVE (more content not included)... [facility] 10-13-2022 Miscellaneous Notes Patient has been identified by name and date of : Yes, Patient phones for refill(s): Requested Prescriptions Pending Prescriptions Disp Refills tamsulosin (FLOMAX) 0.4 mg 180 capsule 3 Sig: Take 2 capsules by mouth daily at bedtime. finasteride (PROSCAR) 5 mg tablet 90 tablet 3 Sig: Take 1 tablet by mouth once daily. Date of last office visit in primary care: 07/16/2022 Medicare Wellness: 03/22/2023 Last 2 Encounter Wt Readings: Date: Wt: 06/30/2022 109.3 kg (241 lb) 06/22/2022 109.8 kg (242 lb) Previous labs/tests for medication: Not applicable Please advise. Thank you. Anabella Steve LPN documented in this encounter [facility] 09-21-2022 Note HNO ID: [id number] Author: Familia Pratt, RN Service: ? Author Type: Registered Nurse Type: Progress Notes Filed: 09/21/2022 12:39 PM Note Text: INSIGHT CDM TELEPHONIC OUTREACH Provider Action/FYI: CDM: COPD/ CKD Called Pt left a message to verify symptom status and needs.Pt uses Oxygen at 2 liters at HS BP 136/66, Pulse Oximeter 96%, Temp 96.9, Wt 245 lbs. 09/24/[address] Hernandez provided, Instructed to call PCP with any symptom or condition changes. Contact made with patient: Yes Patient identified by name and . Discussed care with patient It?s nice talking to you again. As a reminder, this is our bi-weekly check-in where I will be asking you questions about your health. This will only take a few minutes of your time. Is this a good time? Yes Symptoms What Chronic Disease(s) does the patient have: CKD and COPD Do you check your blood pressures at home? Yes, Enter readings: 136/66 Do you have new or worse shortness of breath with activity? No Do you feel like you are dehydrated for any reason, including not being able to eat or drink normally, or having less urine/much darker urine than normal for you? No Do you check your daily weight at home? Yes, Have you noticed a sudden gain in weight greater than three pounds in a day or three pounds in a week? No and Do you have new or worsening cough? No Do you have new or worsening wheezing? No Do you need to use your rescue (Albuterol) inhaler or nebulizer more often than normal? No Are you having any other symptoms that your PCP needs to know about? No Symptoms: N/A Symptom Escalation DESTINEY Education Ordered -: No The patient required an escalation for symptom(s)? No Medications Do you have any questions about taking your medication or which medications you should be on? No Do you need any medication refills at this time, including any of the medications you might take only when needed? No Social We would like to make sure you have what you need so that your basic needs are met- including your personal safety, food, housing and medications? Would you like to speak with a social work swat team member to help give you support for any of these needs? No It can be normal to feel anxious or down during a time like this. Would you like to talk to a mental health professional about how you have been feeling? No Closing Thank you for taking the time to talk with me today. We want to work with you to ensure that we are keeping your medical condition(s) well-controlled and to keep you healthy and out of the doctor's office or hospital. It?s also not too late for me to sign you up for automated weekly questionnaires through [employer]. This is an easy way for us to stay connected each week. Are you interested? No, I understand. We can always sign you up in the future if you change your mind. Just as a reminder, will continue to call you every other week to check in on your health. Our calls should take 10-15 minutes or less. Remember, if you have concerns in between our calls, please call your PCP's office right away. Thank you. Enter next patient outreach date for two weeks on the same day of the week as today in the Track Pt Outreach and End outreach. Familia Pratt RN September 21, 2022 12:29 PM [facility] 09-21-2022 Note Patient Outreach (AM [facility]) JAVIER DEGROOT ([id number]) 1945 M Date Time Provider Department 09/21/22 FAMILIA PRATT During your visit today, we recorded the following information about you: Familia Pratt RN 09/21/2022 12:39 PM Signed INSIGHT CDM TELEPHONIC OUTREACH Provider Action/FYI: CDM: COPD/ CKD Called Pt left a message to verify symptom status and needs.Pt uses Oxygen at 2 liters at HS BP 136/66, Pulse Oximeter 96%, Temp 96.9, Wt 245 lbs. 09/24/[address] Hernandez provided, Instructed to call PCP with any symptom or condition changes. Contact made with patient: Yes Patient identified by name and . Discussed care with patient It?s nice talking to you again. As a reminder, this is our bi-weekly check-in where I will be asking you questions about your health. This will only take a few minutes of your time. Is this a good time? Yes Symptoms What Chronic Disease(s) does the patient have: CKD and COPD Do you check your blood pressures at home? Yes, Enter readings: 136/66 Do you have new or worse shortness of breath with activity? No Do you feel like you are dehydrated for any reason, including not being able to eat or drink normally, or having less urine/much darker urine than normal for you? No Do you check your daily weight at home? Yes, Have you noticed a sudden gain in weight greater than three pounds in a day or three pounds in a week? No and Do you have new or worsening cough? No Do you have new or worsening wheezing? No Do you need to use your rescue (Albuterol) inhaler or nebulizer more often than normal? No Are you having any other symptoms that your PCP needs to know about? No Symptoms: N/A Symptom Escalation DESTINEY Education Ordered -: No The patient required an escalation for symptom(s)? No Medications Do you have any questions about taking your medication or which medications you should be on? No Do you need any medication refills at this time, including any of the medications you might take only when needed? No Social We would like to make sure you have what you need so that your basic needs are met- including your personal safety, food, housing and medications? Would you like to speak with a social work swat team member to help give you support for any of these needs? No It can be normal to feel anxious or down during a time like this. Would you like to talk to a mental health professional about how you have been feeling? No Closing Thank you for taking the time to talk with me today. We want to work with you to ensure that we are keeping your medical condition(s) well-controlled and to keep you healthy and out of the doctor's office or hospital. It?s also not too late for me to sign you up for automated weekly questionnaires through [employer]. This is an easy way for us to stay connected each week. Are you interested? No, I understand. We can always sign you up in the future if you change your mind. Just as a reminder, will continue to call you every other week to check in on your health. Our calls should take 10-15 minutes or less. Remember, if you have concerns in between our calls, please call your PCP's office right away. Thank you. Enter next patient outreach date for two weeks on the same day of the week as today in the Track Pt Outreach and End outreach. Familia Pratt RN September 21, 2022 12:29 PM Allergies As of Date: 09/21/2022 Noted Allergy Reaction LISINOPRIL 10/15/2014 3 - Cough Date Reviewed: 06/30/2022 Reviewed by: Venita Crow MA - Fully Assessed Reason for Visit: Community Monitoring Outreachi [Other] Prescriptions as of 09/21/2022 - atorvastatin (LIPITOR) 10 mg tablet Take 10 mg by mouth once daily. - COLLAGEN MISC Take 2 capsules by mouth once daily. - acetaminophen (TYLENOL ARTHRITIS PAIN ORAL) Take 1,300 mg by mouth as needed. - tamsulosin (FLOMAX) 0.4 mg Take 2 capsules by mouth daily at bedtime. - finasteride (PROSCAR) 5 mg tablet Take 1 tablet by mouth once daily. - dilTIAZem (CARDIZEM) 120 mg tablet Take 1 tablet by mouth twice daily. - aspirin 81 mg chewable tablet Take 1 tablet by mouth once daily. - metoprolol tartrate, short acting, (LOPRESSOR) 50 mg tablet Take 1.5 tablets by mouth twice daily. - potassium chloride ER (K-DUR, KLOR-CON) 20 mEq tablet Take 20 mEq by mouth twice daily. - Docusate Sodium 250 mg capsule Take 250 mg by mouth twice daily. - furosemide (LASIX) 40 mg tablet Take 40 mg by mouth once daily. - apixaban (ELIQUIS) 5 mg tab tab(s) Take 1 tablet by mouth twice daily. Facility-Administered Medications as of 09/21/2022 - perflutren lipid microspheres 1.3 mL in NaCl (PF) 0.9% 10 mL injection (DEFINITY) - sodium chloride 0.9 % (flush) 10 mL (BD POSIFLUSH) Problem List As Of Date 09/21/2022 Noted Resolved Elevated prostate speci (more content not included)... [facility] 09-21-2022 History of Presen t illness Narrative INSIGHT CDM TELEPHONIC OUTREACH Provider Action/FYI: CDM: COPD/ CKD Called Pt left a message to verify symptom status and needs.Pt uses Oxygen at 2 liters at HS BP 136/66, Pulse Oximeter 96%, Temp 96.9, Wt 245 lbs. 09/24/[address] Hernandez provided, Instructed to call PCP with any symptom or condition changes. Contact made with patient: Yes Patient identified by name and . Discussed care with patient It s nice talking to you again. As a reminder, this is our bi-weekly check-in where I will be asking you questions about your health. This will only take a few minutes of your time. Is this a good time? Yes Symptoms What Chronic Disease(s) does the patient have: CKD and COPD Do you check your blood pressures at home? Yes, Enter readings: 136/66 Do you have new or worse shortness of breath with activity? No Do you feel like you are dehydrated for any reason, including not being able to eat or drink normally, or having less urine/much darker urine than normal for you? No Do you check your daily weight at home? Yes, Have you noticed a sudden gain in weight greater than three pounds in a day or three pounds in a week? No and Do you have new or worsening cough? No Do you have new or worsening wheezing? No Do you need to use your rescue (Albuterol) inhaler or nebulizer more often than normal? No Are you having any other symptoms that your PCP needs to know about? No Symptoms: N/A Symptom Escalation DESTINEY Education Ordered -: No The patient required an escalation for symptom(s)? No Medications Do you have any questions about taking your medication or which medications you should be on? No Do you need any medication refills at this time, including any of the medications you might take only when needed? No Social We would like to make sure you have what you need so that your basic needs are met- including your personal safety, food, housing and medications? Would you like to speak with a social work swat team member to help give you support for any of these needs? No It can be normal to feel anxious or down during a time like this. Would you like to talk to a mental health professional about how you have been feeling? No Closing Thank you for taking the time to talk with me today. We want to work with you to ensure that we are keeping your medical condition(s) well-controlled and to keep you healthy and out of the doctor's office or hospital. It s also not too late for me to sign you up for automated weekly questionnaires through [employer]. This is an easy way for us to stay connected each week. Are you interested? No, I understand. We can always sign you up in the future if you change your mind. Just as a reminder, will continue to call you every other week to check in on your health. Our calls should take 10-15 minutes or less. Remember, if you have concerns in between our calls, please call your PCP's office right away. Thank you. Enter next patient outreach date for two weeks on the same day of the week as today in the Track Pt Outreach and End outreach. Familia Pratt RN September 21, 2022 12:29 PM documented in this encounter [facility] 2022 Note Patient Outreach (AM [facility]) JAVIER DEGROOT ([id number]) 1945 M Date Time Provider Department 08/20/22 FAMILIA PRATT During your visit today, we recorded the following information about you: Familia Pratt RN 2022 9:57 AM Signed INSIGHT CDM TELEPHONIC OUTREACH Provider Action/FYI: CDM: COPD/ CKD Spk with Pt he denies COPD/ CKD symptoms, or needs, BP 121/71, Pulse Oximeter 95%, Wt 245-248 lbs Pt has Appt today with Dr. Salmeron [facility] Recent Ortho Appt with Dr. Saba, X-rays of bilateral knee's noting Left knee arthritis, Pt is attempting to start exercising on recumbent bike, which does not effect his knee pain. Contact made with patient: Yes Patient identified by name and . Discussed care with patient It?s nice talking to you again. As a reminder, this is our bi-weekly check-in where I will be asking you questions about your health. This will only take a few minutes of your time. Is this a good time? Yes Symptoms What Chronic Disease(s) does the patient have: CKD and COPD Do you check your blood pressures at home? Yes, Enter readings: 121/71 Do you have new or worse shortness of breath with activity? No Do you feel like you are dehydrated for any reason, including not being able to eat or drink normally, or having less urine/much darker urine than normal for you? No Do you check your daily weight at home? Yes, Have you noticed a sudden gain in weight greater than three pounds in a day or three pounds in a week? No and Do you have new or worsening cough? No Do you have new or worsening wheezing? No Do you need to use your rescue (Albuterol) inhaler or nebulizer more often than normal? No Are you having any other symptoms that your PCP needs to know about? No Symptom Escalation The patient required an escalation for symptom(s)? No Medications Do you have any questions about taking your medication or which medications you should be on? No Do you need any medication refills at this time, including any of the medications you might take only when needed? No Social We would like to make sure you have what you need so that your basic needs are met- including your personal safety, food, housing and medications? Would you like to speak with a social work swat team member to help give you support for any of these needs? No It can be normal to feel anxious or down during a time like this. Would you like to talk to a mental health professional about how you have been feeling? No Closing Thank you for taking the time to talk with me today. We want to work with you to ensure that we are keeping your medical condition(s) well-controlled and to keep you healthy and out of the doctor's office or hospital. It?s also not too late for me to sign you up for automated weekly questionnaires through [employer]. This is an easy way for us to stay connected each week. Are you interested? No, I understand. We can always sign you up in the future if you change your mind. Just as a reminder, will continue to call you every other week to check in on your health. Our calls should take 10-15 minutes or less. Remember, if you have concerns in between our calls, please call your PCP's office right away. Thank you. Enter next patient outreach date for two weeks on the same day of the week as today in the Track Pt Outreach and End outreach. Familia Pratt RN 2022 8:04 AM Allergies As of Date: 2022 Noted Allergy Reaction LISINOPRIL 10/15/2014 3 - Cough Date Reviewed: 06/30/2022 Reviewed by: Venita Crow MA - Fully Assessed Reason for Visit: Community Monitoring Outreach [Other] Prescriptions as of 2022 - atorvastatin (LIPITOR) 10 mg tablet Take 10 mg by mouth once daily. - COLLAGEN MISC Take 2 capsules by mouth once daily. - acetaminophen (TYLENOL ARTHRITIS PAIN ORAL) Take 1,300 mg by mouth as needed. - tamsulosin (FLOMAX) 0.4 mg Take 2 capsules by mouth daily at bedtime. - finasteride (PROSCAR) 5 mg tablet Take 1 tablet by mouth once daily. - dilTIAZem (CARDIZEM) 120 mg tablet Take 1 tablet by mouth twice daily. - aspirin 81 mg chewable tablet Take 1 tablet by mouth once daily. - metoprolol tartrate, short acting, (LOPRESSOR) 50 mg tablet Take 1.5 tablets by mouth twice daily. - potassium chloride ER (K-DUR, KLOR-CON) 20 mEq tablet Take 20 mEq by mouth twice daily. - Docusate Sodium 250 mg capsule Take 250 mg by mouth twice daily. - furosemide (LASIX) 40 mg tablet Take 40 mg by mouth once daily. - apixaban (ELIQUIS) 5 mg tab tab(s) Take 1 tablet by mouth twice daily. Facility-Administered Medications as of 2022 - perflutren lipid microspheres 1.3 mL in NaCl (PF) 0.9% 10 mL injection (DEFINITY) - sodium chloride 0.9 % (flush) 10 mL (BD POSIFLUSH) Problem List As Of Date 2022 (more content not included)... [facility] 2022 Note HNO ID: [id number] Author: Familia Pratt, MARYCRUZ Service: ? Author Type: Registered Nurse Type: Progress Notes Filed: 2022 9:57 AM Note Text: INSIGHT CDM TELEPHONIC OUTREACH Provider Action/FYI: CDM: COPD/ CKD Spk with Pt he denies COPD/ CKD symptoms, or needs, BP 121/71, Pulse Oximeter 95%, Wt 245-248 lbs Pt has Appt today with Dr. Salmeron [facility] Recent Ortho Appt with Dr. Saba, X-rays of bilateral knee's noting Left knee arthritis, Pt is attempting to start exercising on recumbent bike, which does not effect his knee pain. Contact made with patient: Yes Patient identified by name and . Discussed care with patient It?s nice talking to you again. As a reminder, this is our bi-weekly check-in where I will be asking you questions about your health. This will only take a few minutes of your time. Is this a good time? Yes Symptoms What Chronic Disease(s) does the patient have: CKD and COPD Do you check your blood pressures at home? Yes, Enter readings: 121/71 Do you have new or worse shortness of breath with activity? No Do you feel like you are dehydrated for any reason, including not being able to eat or drink normally, or having less urine/much darker urine than normal for you? No Do you check your daily weight at home? Yes, Have you noticed a sudden gain in weight greater than three pounds in a day or three pounds in a week? No and Do you have new or worsening cough? No Do you have new or worsening wheezing? No Do you need to use your rescue (Albuterol) inhaler or nebulizer more often than normal? No Are you having any other symptoms that your PCP needs to know about? No Symptom Escalation The patient required an escalation for symptom(s)? No Medications Do you have any questions about taking your medication or which medications you should be on? No Do you need any medication refills at this time, including any of the medications you might take only when needed? No Social We would like to make sure you have what you need so that your basic needs are met- including your personal safety, food, housing and medications? Would you like to speak with a social work swat team member to help give you support for any of these needs? No It can be normal to feel anxious or down during a time like this. Would you like to talk to a mental health professional about how you have been feeling? No Closing Thank you for taking the time to talk with me today. We want to work with you to ensure that we are keeping your medical condition(s) well-controlled and to keep you healthy and out of the doctor's office or hospital. It?s also not too late for me to sign you up for automated weekly questionnaires through [employer]. This is an easy way for us to stay connected each week. Are you interested? No, I understand. We can always sign you up in the future if you change your mind. Just as a reminder, will continue to call you every other week to check in on your health. Our calls should take 10-15 minutes or less. Remember, if you have concerns in between our calls, please call your PCP's office right away. Thank you. Enter next patient outreach date for two weeks on the same day of the week as today in the Track Pt Outreach and End outreach. Familia Pratt RN 2022 8:04 AM [facility] 2022 History of Presen t illness Narrative INSIGHT CDM TELEPHONIC OUTREACH Provider Action/FYI: CDM: COPD/ CKD Spk with Pt he denies COPD/ CKD symptoms, or needs, BP 121/71, Pulse Oximeter 95%, Wt 245-248 lbs Pt has Appt today with Dr. Salmeron [facility] Recent Ortho Appt with Dr. Saba, X-rays of bilateral knee's noting Left knee arthritis, Pt is attempting to start exercising on recumbent bike, which does not effect his knee pain. Contact made with patient: Yes Patient identified by name and . Discussed care with patient It s nice talking to you again. As a reminder, this is our bi-weekly check-in where I will be asking you questions about your health. This will only take a few minutes of your time. Is this a good time? Yes Symptoms What Chronic Disease(s) does the patient have: CKD and COPD Do you check your blood pressures at home? Yes, Enter readings: 121/71 Do you have new or worse shortness of breath with activity? No Do you feel like you are dehydrated for any reason, including not being able to eat or drink normally, or having less urine/much darker urine than normal for you? No Do you check your daily weight at home? Yes, Have you noticed a sudden gain in weight greater than three pounds in a day or three pounds in a week? No and Do you have new or worsening cough? No Do you have new or worsening wheezing? No Do you need to use your rescue (Albuterol) inhaler or nebulizer more often than normal? No Are you having any other symptoms that your PCP needs to know about? No Symptom Escalation The patient required an escalation for symptom(s)? No Medications Do you have any questions about taking your medication or which medications you should be on? No Do you need any medication refills at this time, including any of the medications you might take only when needed? No Social We would like to make sure you have what you need so that your basic needs are met- including your personal safety, food, housing and medications? Would you like to speak with a social work swat team member to help give you support for any of these needs? No It can be normal to feel anxious or down during a time like this. Would you like to talk to a mental health professional about how you have been feeling? No Closing Thank you for taking the time to talk with me today. We want to work with you to ensure that we are keeping your medical condition(s) well-controlled and to keep you healthy and out of the doctor's office or hospital. It s also not too late for me to sign you up for automated weekly questionnaires through [employer]. This is an easy way for us to stay connected each week. Are you interested? No, I understand. We can always sign you up in the future if you change your mind. Just as a reminder, will continue to call you every other week to check in on your health. Our calls should take 10-15 minutes or less. Remember, if you have concerns in between our calls, please call your PCP's office right away. Thank you. Enter next patient outreach date for two weeks on the same day of the week as today in the Track Pt Outreach and End outreach. Familia Pratt RN 2022 8:04 AM documented in this encounter [facility] 07-17-2022 History of Presen t illness Narrative INSIGHT CDM TELEPHONIC OUTREACH Provider Action/FYI: Spk with Pt he denies COPD/ CKD symtoms, BP 127/74, Pulse Oximeter 96%, Pt is riding recumbent bike 30 min per day, wt 240 lbs. Denies needs or concerns. Contact made with patient: Yes Patient identified by name and . Discussed care with patient It s nice talking to you again. As a reminder, this is our bi-weekly check-in where I will be asking you questions about your health. This will only take a few minutes of your time. Is this a good time? Yes Symptoms What Chronic Disease(s) does the patient have: CKD and COPD Do you check your blood pressures at home? Yes, Enter readings: 127/74 Do you have new or worse shortness of breath with activity? No Do you feel like you are dehydrated for any reason, including not being able to eat or drink normally, or having less urine/much darker urine than normal for you? No Do you check your daily weight at home? Yes, Have you noticed a sudden gain in weight greater than three pounds in a day or three pounds in a week? No and Do you have new or worsening cough? No Do you have new or worsening wheezing? No Do you need to use your rescue (Albuterol) inhaler or nebulizer more often than normal? No Are you having any other symptoms that your PCP needs to know about? No Symptom Escalation The patient required an escalation for symptom(s)? No Medications Do you have any questions about taking your medication or which medications you should be on? No Do you need any medication refills at this time, including any of the medications you might take only when needed? No Social We would like to make sure you have what you need so that your basic needs are met- including your personal safety, food, housing and medications? Would you like to speak with a social work swat team member to help give you support for any of these needs? No It can be normal to feel anxious or down during a time like this. Would you like to talk to a mental health professional about how you have been feeling? No Closing Thank you for taking the time to talk with me today. We want to work with you to ensure that we are keeping your medical condition(s) well-controlled and to keep you healthy and out of the doctor's office or hospital. It s also not too late for me to sign you up for automated weekly questionnaires through [employer]. This is an easy way for us to stay connected each week. Are you interested? No, I understand. We can always sign you up in the future if you change your mind. Just as a reminder, will continue to call you every other week to check in on your health. Our calls should take 10-15 minutes or less. Remember, if you have concerns in between our calls, please call your PCP's office right away. Thank you. Enter next patient outreach date for two weeks on the same day of the week as today in the Track Pt Outreach and End outreach. Familia Pratt RN July 17, 2022 2:39 PM documented in this encounter [facility] 06-30-2022 Note HNO ID: [id number] Author: Tamika Dutta APRN.[employer] DIRECT[employer] Service: ? Author Type: Nurse Practitioner Type: Progress Notes Filed: 06/30/2022 3:19 PM Note Text: INTERVENTIONAL CARDIOLOGY SERVICE 1 Year Post-TAVR Follow-Up PRIMARY CARE PHYSICIAN: Tomy Hernandez [address] [place] [address] Chief Complaint Patient presents with: F/U 6 Month: S/p TAVR HISTORY OF PRESENT ILLNESS: Mr. Degroot is a 76 year old male known to Dr. Salmeron with a PMH significant for HTN, HLD, Former Smoker, Moderate CAD, Chronic A. Fib (on Eliquis), Previous TIA in 2019, DVT/PE, NOAM, COPD, Pulmonary HTN, COVID infection 10/03/2020, Home O2 s/p COVID (only 2L NC at night), and paradoxical low flow, low gradient severe aortic valve stenosis who underwent a transcatheter aortic valve replacement with 26 mm Duenas Colby S3 Ultra THV with Dr. Liu on 07/10/2021. He presents with his today for a 1 year post-TAVR follow up visit. Today, he denies chest pain or pressure. He does endorse mild shortness of breath and fatigue with exertion, which have improved since his TAVR procedure. He denies orthopnea, PND, dizziness, lightheadedness, syncope, or lower extremity edema. Overall, he is feeling better since his TAVR procedure and does endorse improved energy. Subjective Review of Systems Constitutional: Positive for malaise/fatigue (mild with exertion). Negative for chills, diaphoresis, fever and weight loss. Respiratory: Positive for shortness of breath (Mild with exertion). Negative for cough. Cardiovascular: Negative for chest pain, palpitations, orthopnea, leg swelling and PND. Gastrointestinal: Negative for abdominal pain, heartburn, nausea and vomiting. Genitourinary: Negative for hematuria. Musculoskeletal: Negative for myalgias. Neurological: Negative for dizziness, tingling, loss of consciousness, weakness and headaches. Endo/Heme/Allergies: Does not bruise/bleed easily. Psychiatric/Behavioral: Negative for depression. 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 Left 2015. COLSC FLX W/RMVL OF TUMOR POLYP LESION SNARE TQ 06/16/2011 LEFT HEART CATH,PERCUTANEOUS 05/06/2021 PAST SURGICAL HISTORY OF 07/14/2012 closure of oroantral fistula (sinuses) SGMDSC FLX RMVL RYAN POLYP/OTH LES SNARE TQ 07/23/2011 SIGMOIDOSCOPY FLX DX W/COLLJ SPEC BR/WA IF PFRMD 12/14/2011 Sigmoidoscopy, flexible TAVR/ROSETTE PERCUT 07/10/2021 femoral FAMILY HISTORY Problem Relation Age of Onset Diabetes Mother other (Other) Mother old age, natural causes Social History Tobacco Use Smoking status: Former Packs/day: 1.50 Years: 50.00 Pack years: 75.00 Types: Cigarettes Quit date: 06/24/2011 Years since quittin.0 Smokeless tobacco: Former Quit date: 06/24/2012 Substance Use Topics Alcohol use: No Drug use: No ALLERGIES Allergen Reactions Lisinopril Cough Medications: Current Outpatient Medications Medication Sig Dispense Refill atorvastatin (LIPITOR) 10 mg tablet Take 10 mg by mouth once daily. COLLAGEN MISC Take 2 capsules by mouth once daily. acetaminophen (TYLENOL ARTHRITIS PAIN ORAL) Take 1,300 mg by mouth as needed. tamsulosin (FLOMAX) 0.4 mg Take 2 capsules by mouth daily at bedtime. 180 capsule 3 finasteride (PROSCAR) 5 mg tablet Take 1 tablet by mouth once daily. 90 tablet 3 dilTIAZem (CARDIZEM) 120 mg tablet Take 1 tablet by mouth twice daily. aspirin 81 mg chewable tablet Take 1 tablet by mouth once daily. 30 (more content not included)... [facility] 06-30-2022 Instructions Tamika Dutta APRN.SALES OPERATIONS DIRECTOR - 06/30/2022 2:11 PM EDT Recommend annual echocardiograms Lifelong antibiotics for all dental cleanings/procedures Weight loss and regular exercise recommended Heart Failure What is heart failure? Heart failure (HF) means the heart is not pumping blood as well as it should. It may pump at a different speed, pump blood with less force, or pump less blood with each heartbeat. When less blood is flowing out of the heart to the body, muscles and other tissues may not get enough oxygen. The kidneys may not work as well to remove excess fluid in the form of urine. As a result, blood backs up into the blood vessels. The extra fluid seeps into the lungs or other parts of the body. Fluid in the lungs makes it hard to breathe. Fluid seeping into other parts of the body causes swelling. When there is too much fluid in the body, it puts more strain on the heart. Heart failure is one of the most common causes of heart-related illness and in the [place]. What is the cause? A number of things can cause heart failure, such as: Narrowing or blockage in the arteries that bring blood to the heart muscle Infection of the heart Heart attack High blood pressure Heart valve problems Genetic problems with the heart muscle Alcoholism Diabetes Lung disease Problems that may worsen or trigger heart failure, especially if your heart muscle is weak, include: Severe anemia (a low level of red blood cells) An overactive or underactive thyroid gland Infection A heartbeat that is too fast or too slow Too much salt or fluid in the diet Working your body too hard with exercise or daily activities Emotional stress What are the symptoms? The symptoms of heart failure may include: Shortness of breath or trouble breathing, at first just during exercise, then with any activity, and finally even when you are resting Waking up at night with trouble breathing or being unable to lie flat in bed because of shortness of breath Coughing Swollen ankles, feet, and legs Weight gain caused by extra fluid in the body Feeling tired most of the time and not able to do your usual activities Lack of appetite and feeling sick to your stomach Feeling like your heart is racing or fluttering Lightheadedness or fainting How is it diagnosed? Your healthcare provider will ask about your symptoms and examine you. Tests may include: Chest X-ray An ECG (also called an EKG), which measures and records your heartbeat Blood or urine tests Echocardiogram, which uses sound waves (ultrasound) to see how well your heart muscle is pumping How is it treated? Heart failure can be treated and managed. The goals of treatment are: Help your heart so it doesn t have to work as hard Help your heart pump blood better Get rid of extra water in your body Your healthcare provider may prescribe medicine to relax the blood vessels and lower blood pressure. Then the heart doesn t have to work as hard. You may need to take 2 or more medicines to treat your heart failure. It may take several weeks or months to find the best treatment for you. In some cases, heart failure can get better and even be cured. For example, if it is caused by an infection, it may be cured with treatment of the infection. Heart failure due to coronary artery disease is generally not cured and most often gets worse over time. However, carefully following your treatment plan can: Slow down the worsening of heart failure and help you live longer Help prevent trips to the hospital Help you feel better and do more How can I take care of myself? If you have heart failure, there are things you can do to take care of yourself now and prevent problems in the future. Follow your treatment plan and know how to take your medicines. Work as a partner with your provider. This means having regular provider visits and following your treatment plan. Follow the directions that come with your medicine, including information about food or alcohol. Make sure you know how and when to take your medicine. Do not take more or less than you are supposed to take. Many medicines have side effects. A side effect is a symptom or problem that is caused by the medicine. Ask your healthcare provider or pharmacist what side effects your medicine may cause and what you should do if you have side effects. Ask if you should avoid some nonprescription medicines. Don t smoke, eat a healthy diet, and watch your weight and blood pressure. Quit smoking if you are a smoker. Lose weight if you are overweight and eat a healthy diet. ?Follow a low-salt (low-sodium) diet if it is recommended by your provider. Too much salt makes your body keep too much water and makes your heart have to work harder. ?Follow your healthcare provider's advice about how much liquid you should drink. ?Ask your provider if you should avoid drinking alcohol. Alcohol can weaken your heart or may worsen heart failure. Also, some of your medicines may not work well if you drink alcohol. Weigh yourself every morning after you use the bathroom but before you eat or drink anything. Weighing yourself every day helps you know if extra fluid is building up in your body. A buildup of fluid is a sign that your heart failure may be getting worse. Weight gain can let you know about fluid buildup before you start having swelling. Keep track of your weight in a diary or on the calendar. Ask your healthcare provider when you should report weight gain. Letting your provider know about weight gain when it first happens can save you a trip to the emergency room or a stay in the hospital. Also check your pulse and blood pressure every day. Learn how to take your own blood pressure or have a family member learn how to take it. Be as physically active as you can. How active you can be depends on how bad the heart failure is. A program of gentle exercise helps most people. Your provider can tell you what level of exercise is right for you. Exercise helps your heart and body get stronger. It also improves your blood flow and energy level. Don t exercise outdoors if it is very hot, cold, humid, or smoggy. Balance exercise with rest. Make sure that your activities don t make you too tired or short of breath. Take rest breaks during the day. Avoid getting very hot or cold because it may make your heart work harder. Try to lessen the stress in your life. Anxiety and anger can cause a fast heart rate and high blood pressure. If you need help with this, ask your healthcare provider. Protect yourself against infections. Get a flu shot every year. When you have heart failure, you should not get the nasal spray vaccine (FluMist). Get the pneumococcal shot. Ask your healthcare provider: How and when you will hear your test results How long it will take to recover What activities you should avoid and when you can return to your normal activities How to take care of yourself at home What symptoms or problems you should watch for and what to do if you have them Make sure you know when you should come back for a checkup. How can I help prevent heart failure? You can prevent this disease with a heart-healthy lifestyle: Eat a healthy diet and keep a healthy weight. Stay fit with the right kind of exercise for you. Decrease stress. Don t smoke. Limit your use of alcohol. Talk to your healthcare provider about your personal and family medical history and your lifestyle habits. This will help you know what you can do to lower your risk for heart failure. documented in this encounter [facility] 06-30-2022 History of Presen t illness Narrative Images from the original note were not included. INTERVENTIONAL CARDIOLOGY SERVICE 1 Year Post-TAVR Follow-Up PRIMARY CARE PHYSICIAN: Tomy Hernandez [address] [place] [address] Chief Complaint Patient presents with: F/U 6 Month: S/p TAVR HISTORY OF PRESENT ILLNESS: Mr. Degroot is a 76 year old male known to Dr. Salmeron with a PMH significant for HTN, HLD, Former Smoker, Moderate CAD, Chronic A. Fib (on Eliquis), Previous TIA in 2019, DVT/PE, NOAM, COPD, Pulmonary HTN, COVID infection 10/03/2020, Home O2 s/p COVID (only 2L NC at night), and paradoxical low flow, low gradient severe aortic valve stenosis who underwent a transcatheter aortic valve replacement with 26 mm Duenas Colby S3 Ultra THV with Dr. Liu on 07/10/2021. He presents with his today for a 1 year post-TAVR follow up visit. Today, he denies chest pain or pressure. He does endorse mild shortness of breath and fatigue with exertion, which have improved since his TAVR procedure. He denies orthopnea, PND, dizziness, lightheadedness, syncope, or lower extremity edema. Overall, he is feeling better since his TAVR procedure and does endorse improved energy. Subjective Review of Systems Constitutional: Positive for malaise/fatigue (mild with exertion). Negative for chills, diaphoresis, fever and weight loss. Respiratory: Positive for shortness of breath (Mild with exertion). Negative for cough. Cardiovascular: Negative for chest pain, palpitations, orthopnea, leg swelling and PND. Gastrointestinal: Negative for abdominal pain, heartburn, nausea and vomiting. Genitourinary: Negative for hematuria. Musculoskeletal: Negative for myalgias. Neurological: Negative for dizziness, tingling, loss of consciousness, weakness and headaches. Endo/Heme/Allergies: Does not bruise/bleed easily. Psychiatric/Behavioral: Negative for depression. 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 Left 2016. COLSC FLX W/RMVL OF TUMOR POLYP LESION SNARE TQ 06/16/2011 LEFT HEART CATH,PERCUTANEOUS 05/06/2021 PAST SURGICAL HISTORY OF 07/14/2012 closure of oroantral fistula (sinuses) SGMDSC FLX RMVL RYAN POLYP/OTH LES SNARE TQ 07/23/2011 SIGMOIDOSCOPY FLX DX W/COLLJ SPEC BR/WA IF PFRMD 12/14/2011 Sigmoidoscopy, flexible TAVR/ROSETTE PERCUT 07/10/2021 femoral FAMILY HISTORY Problem Relation Age of Onset Diabetes Mother other (Other) Mother old age, natural causes Social History Tobacco Use Smoking status: Former Packs/day: 1.50 Years: 50.00 Pack years: 75.00 Types: Cigarettes Quit date: 06/24/2011 Years since quittin.0 Smokeless tobacco: Former Quit date: 06/24/2012 Substance Use Topics Alcohol use: No Drug use: No ALLERGIES Allergen Reactions Lisinopril Cough Medications: Current Outpatient Medications Medication Sig Dispense Refill atorvastatin (LIPITOR) 10 mg tablet Take 10 mg by mouth once daily. COLLAGEN MISC Take 2 capsules by mouth once daily. acetaminophen (TYLENOL ARTHRITIS PAIN ORAL) Take 1,300 mg by mouth as needed. tamsulosin (FLOMAX) 0.4 mg Take 2 capsules by mouth daily at bedtime. 180 capsule 3 finasteride (PROSCAR) 5 mg tablet Take 1 tablet by mouth once daily. 90 tablet 3 dilTIAZem (CARDIZEM) 120 mg tablet Take 1 tablet by mouth twice daily. aspirin 81 mg chewable tablet Take 1 tablet by mouth once daily. 30 tablet 2 metoprolol tartrate, short acting, (LOPRESSOR) 50 mg tablet Take 1.5 tablets by mouth twice daily. 0 potassium chloride ER (K-DUR, KLOR-CON) 20 mEq tablet Take 20 mEq by mouth twice daily. Docusate Sodium 250 mg capsule Take 250 mg by mouth twice daily. furosemide (LASIX) 40 mg tablet Take 40 mg by mouth once daily. apixaban (ELIQUIS) 5 mg tab tab(s) Take 1 tablet by mouth twice daily. 0 Current Facility-Administered Medications Medication Dose Route Frequency Provider Last Rate Last Admin perflutren lipid microspheres 1.3 mL in NaCl (PF) 0.9% 10 mL injection (DEFINITY) INTRAVENOUS DIRECTED PRN Tamika Dutta APRN.CNP sodium chloride 0.9 % (flush) 10 mL (BD POSIFLUSH) 10 mL INTRAVENOUS DIRECTED PRN Tamika Dutta APRN.[place] Objective Physical Examination: Vitals:BP 130/70 Pulse 77 Wt 241 lb (109.3kg) SpO2 95% BP w/Orthostatic Vitals Date and Time Orthostatic BP Orthostatic Pulse BP Pulse BP Position BP Site BP Cuff Size 06/30/22 1325 -- -- 130/70 77 Sitting Left Arm Large Adult Last 2 Encounter Wt Readings: Date: Wt: 06/30/2022 241 lb (109.3 kg) 06/22/2022 242 lb (109.8 kg) Physical Exam Vitals and nursing note reviewed. Constitutional: Appearance: Normal appearance. He is obese. HENT: Head: Normocephalic and atraumatic. Neck: Vascular: No carotid bruit or JVD. Cardiovascular: Rate and Rhythm: Normal rate. Rhythm irregular. Pulses: Radial pulses are 3+ on the right side and 3+ on the left side. Heart sounds: S1 normal and S2 normal. Heart sounds not distant. No murmur heard. No friction rub. No gallop. No S3 or S4 sounds. Pulmonary: Effort: Pulmonary effort is normal. Breath sounds: Normal breath sounds. Abdominal: Palpations: Abdomen is soft. Musculoskeletal: General: Normal range of motion. Cervical back: Normal range of motion and neck supple. Skin: General: Skin is warm and dry. Neurological: Mental Status: He is alert and oriented to person, place, and time. Motor: Motor function is intact. Gait: Gait is intact. Psychiatric: Mood and Affect: Mood and affect normal. Cognition and Memory: Memory normal. Judgment: Judgment normal. Diagnostic tests reviewed for today's visit: Echocardiogram 06/22/2022 CONCLUSIONS: - Technically difficult exam due to body habitus. - Exam indication: s/p TAVR - The left ventricle is small. Left ventricular systolic function is normal. EF = 60 5% (2D biplane) Left ventricular diastolic function was not evaluated due to AF. - The right ventricle is normal in size. Right ventricular systolic function is normal. - The left atrial cavity is severely dilated. - The visualized aorta is borderline dilated with a maximal dimension of 3.8 cm. - Duenas-Colby prosthetic aortic valve (size #26). There is trace aortic valve regurgitation. The peak gradient is 24 mmHg, the mean gradient is 13 mmHg and the dimensionless valve index is 0.36. Prior pk/mn gradients of 23/12 mmHg. - There is moderate mitral annular calcification observed anterior and posterior. - Exam was compared with the prior CC echocardiographic exam performed on 08/21/2021, no signifcant change. TAVR Procedure Note 07/10/2021 PROCEDURES: 1. Successful transfemoral implantation of a 26 mm Duenas-Colby S3 THV deployed at Nominal fill volume 2. Placement of a temporary venous pacemaker 3. Right femoral arterial access site closure with a single Perclose Proglide device and 8Fr. Angioseal 4. Selective angiography of the right common femoral artery (first order) 5. Successful placement and removal of a Caspar Cerebral Embolic Protection device via the right radial artery Assessment and Plan: S/P TAVR - Underwent a TAVR on 07/10/2021, with 26 mm Duenas Colby S3 THV with Dr. Liu. Today, he denies any chest pain or pressure. He has mild fatigue and shortness of breath with exertion that have improved since TAVR procedure. He relates his symptoms due to deconditioning as he lives a very sedentary lifestyle. He has also noticed improvement in his energy level since his TAVR. - 1 Year Post TAVR echo revealed well seated valve with a peak and mean gradient of 24 mmHg and 13 mmHg, DI of 0.36, and PAIGE 1.93 cm2. Trace AI noted on echo. LV EF of 60%. - 1 year post TAVR lab work revealed Creatinine of 1.51 and Hgb of 14.5. Patient recently had his Lasix reduced to 40 mg daily and is closely being monitored by his PCP. He reports he has repeat renal function today and Creatinine has reduced to 1.38 since lowering Lasix dose. - [facility] scanned into chart. - EKG completed today. - NYHA Class II today - Cardiac Rehab completed. - Continue ASA 81 mg - Lifelong SBE prophylaxis required. - Patient does not require any further follow up with Valve Clinic. Patient can continue to follow with Dr. Salmeron for his chronic cardiac conditions. - Recommend routine surveillance with annual echocardiogram A. Fib - Rate controled - Continue current medical therapy - Continue Eliquis for stroke prophylaxis. Obesity - BMI: 38 - Diet, regular exercise, and weight loss recommended. SIGNATURE: Tamika Dutta APRN.CNP PATIENT NAME: Javier Degroot DATE: 06/30/2022 TIME: 2:01 PM PAGER/CONTACT #: [phone] documented in this encounter [facility] 06-30-2022 Nurse Note No cardiac complaints today. Venita Crow MA CARDIAC REHAB 5 METER WALK TEST SERVICE DATE: 06/30/2022 SERVICE TIME: 118 pm ASSESSMENT: 5 secs 5 secs 4 secs SIGNATURE: Venita Crow MA PATIENT NAME: Javier Degroot DATE: June 30, 2022 TIME: 1:19 PM PAGER/CONTACT #: [phone] documented in this encounter [facility] 06-16-2022 History of Presen t illness Narrative [facility] Provider Action/FYI: Spk with Pt he noted feels well, BP 128/78, Temp 97.3, Pulse Oximeter 95%, Pt denies needs or concerns. Contact made with patient: Yes Patient identified by name and . Discussed care with patient It s nice talking to you again. As a reminder, this is our bi-weekly check-in where I will be asking you questions about your health. This will only take a few minutes of your time. Is this a good time? Yes Symptoms What Chronic Disease(s) does the patient have: CKD and COPD Do you check your blood pressures at home? Yes, Enter readings: 128/78 Do you have new or worse shortness of breath with activity? No Do you feel like you are dehydrated for any reason, including not being able to eat or drink normally, or having less urine/much darker urine than normal for you? No Do you check your daily weight at home? Yes, Have you noticed a sudden gain in weight greater than three pounds in a day or three pounds in a week? No and Do you have new or worsening cough? No Do you have new or worsening wheezing? No Do you need to use your rescue (Albuterol) inhaler or nebulizer more often than normal? No Are you having any other symptoms that your PCP needs to know about? No Symptom Escalation The patient required an escalation for symptom(s)? No Medications Do you have any questions about taking your medication or which medications you should be on? No Do you need any medication refills at this time, including any of the medications you might take only when needed? No Social We would like to make sure you have what you need so that your basic needs are met- including your personal safety, food, housing and medications? Would you like to speak with a social work swat team member to help give you support for any of these needs? No It can be normal to feel anxious or down during a time like this. Would you like to talk to a mental health professional about how you have been feeling? No Closing Thank you for taking the time to talk with me today. We want to work with you to ensure that we are keeping your medical condition(s) well-controlled and to keep you healthy and out of the doctor's office or hospital. It s also not too late for me to sign you up for automated weekly questionnaires through [employer]. This is an easy way for us to stay connected each week. Are you interested? No, I understand. We can always sign you up in the future if you change your mind. Just as a reminder, will continue to call you every other week to check in on your health. Our calls should take 10-15 minutes or less. Remember, if you have concerns in between our calls, please call your PCP's office right away. Thank you. Enter next patient outreach date for two weeks on the same day of the week as today in the Track Pt Outreach and End outreach. Familia Pratt RN June 16, 2022 4:23 PM documented in this encounter [facility] 05-08-2022 History of Presen t illness Narrative [facility] Provider Action/FYI: Spk with Pt he denies new or worsening COPD/ CKD symptoms or needs, he reports had a Colonoscopy 05/07/22 at [facility] [facility] BP 114/58, P 96% Contact made with patient: Yes Patient identified by name and . Discussed care with patient It s nice talking to you again. As a reminder, this is our bi-weekly check-in where I will be asking you questions about your health. This will only take a few minutes of your time. Is this a good time? Yes Symptoms What Chronic Disease(s) does the patient have: CKD and COPD Do you check your blood pressures at home? Yes, Enter readings: 114/58 Do you have new or worse shortness of breath with activity? No Do you feel like you are dehydrated for any reason, including not being able to eat or drink normally, or having less urine/much darker urine than normal for you? No Do you check your daily weight at home? Yes, Have you noticed a sudden gain in weight greater than three pounds in a day or three pounds in a week? No and Do you have new or worsening cough? No Do you have new or worsening wheezing? No Do you need to use your rescue (Albuterol) inhaler or nebulizer more often than normal? No Are you having any other symptoms that your PCP needs to know about? No Symptom Escalation The patient required an escalation for symptom(s)? No Medications Do you have any questions about taking your medication or which medications you should be on? No Do you need any medication refills at this time, including any of the medications you might take only when needed? No Social We would like to make sure you have what you need so that your basic needs are met- including your personal safety, food, housing and medications? Would you like to speak with a social work swat team member to help give you support for any of these needs? No It can be normal to feel anxious or down during a time like this. Would you like to talk to a mental health professional about how you have been feeling? No Closing Thank you for taking the time to talk with me today. We want to work with you to ensure that we are keeping your medical condition(s) well-controlled and to keep you healthy and out of the doctor's office or hospital. It s also not too late for me to sign you up for automated weekly questionnaires through [employer]. This is an easy way for us to stay connected each week. Are you interested? No, I understand. We can always sign you up in the future if you change your mind. Just as a reminder, will continue to call you every other week to check in on your health. Our calls should take 10-15 minutes or less. Remember, if you have concerns in between our calls, please call your PCP's office right away. Thank you. Enter next patient outreach date for two weeks on the same day of the week as today in the Track Pt Outreach and End outreach. Familia Pratt RN May 08, 2022 11:05 AM documented in this encounter [facility] 04-20-2022 History of Presen t illness Narrative [facility]IGHT CDM TELEPHONIC OUTREACH Provider Action/FYI: Spk with Pt, he denies new or worsening COPD/ CKD or other symptoms or needs. Pulse Ox 98%, BP 138/64, P 61 Contact made with patient: Yes Patient identified by name and . Discussed care with patient It s nice talking to you again. As a reminder, this is our bi-weekly check-in where I will be asking you questions about your health. This will only take a few minutes of your time. Is this a good time? Yes Symptoms What Chronic Disease(s) does the patient have: CKD and COPD Do you check your blood pressures at home? Yes, Enter readings: 138/64 Do you have new or worse shortness of breath with activity? No Do you feel like you are dehydrated for any reason, including not being able to eat or drink normally, or having less urine/much darker urine than normal for you? No Do you check your daily weight at home? No and Do you have new or worsening cough? No Do you have new or worsening wheezing? No Do you need to use your rescue (Albuterol) inhaler or nebulizer more often than normal? No Are you having any other symptoms that your PCP needs to know about? No Symptom Escalation The patient required an escalation for symptom(s)? No Medications Do you have any questions about taking your medication or which medications you should be on? No Do you need any medication refills at this time, including any of the medications you might take only when needed? No Social We would like to make sure you have what you need so that your basic needs are met- including your personal safety, food, housing and medications? Would you like to speak with a social work swat team member to help give you support for any of these needs? No It can be normal to feel anxious or down during a time like this. Would you like to talk to a mental health professional about how you have been feeling? No Closing Thank you for taking the time to talk with me today. We want to work with you to ensure that we are keeping your medical condition(s) well-controlled and to keep you healthy and out of the doctor's office or hospital. It s also not too late for me to sign you up for automated weekly questionnaires through [employer]. This is an easy way for us to stay connected each week. Are you interested? No, I understand. We can always sign you up in the future if you change your mind. Just as a reminder, will continue to call you every other week to check in on your health. Our calls should take 10-15 minutes or less. Remember, if you have concerns in between our calls, please call your PCP's office right away. Thank you. Enter next patient outreach date for two weeks on the same day of the week as today in the Track Pt Outreach and End outreach. Familia Pratt RN April 20, 2022 9:34 AM documented in this encounter [facility] 04-02-2022 History of Presen t illness Narrative INSIGHT CDM TELEPHONIC OUTREACH Provider Action/FYI: Spk with Pt he denies COPD or other symptoms. Pt denies needs or concerns. Contact made with patient: Yes Patient identified by name and . Discussed care with patient It s nice talking to you again. As a reminder, this is our bi-weekly check-in where I will be asking you questions about your health. This will only take a few minutes of your time. Is this a good time? Yes Symptoms What Chronic Disease(s) does the patient have: COPD Do you check your blood pressures at home? Yes, Enter readings: Not available Do you have new or worse shortness of breath with activity? No Do you have new or worsening cough? No Do you have new or worsening wheezing? No Do you need to use your rescue (Albuterol) inhaler or nebulizer more often than normal? No Are you having any other symptoms that your PCP needs to know about? No Symptom Escalation The patient required an escalation for symptom(s)? No Medications Do you have any questions about taking your medication or which medications you should be on? No Do you need any medication refills at this time, including any of the medications you might take only when needed? No Social We would like to make sure you have what you need so that your basic needs are met- including your personal safety, food, housing and medications? Would you like to speak with a social work swat team member to help give you support for any of these needs? No It can be normal to feel anxious or down during a time like this. Would you like to talk to a mental health professional about how you have been feeling? No Closing Thank you for taking the time to talk with me today. We want to work with you to ensure that we are keeping your medical condition(s) well-controlled and to keep you healthy and out of the doctor's office or hospital. It s also not too late for me to sign you up for automated weekly questionnaires through [employer]. This is an easy way for us to stay connected each week. Are you interested? No, I understand. We can always sign you up in the future if you change your mind. Just as a reminder, will continue to call you every other week to check in on your health. Our calls should take 10-15 minutes or less. Remember, if you have concerns in between our calls, please call your PCP's office right away. Thank you. Enter next patient outreach date for two weeks on the same day of the week as today in the Track Pt Outreach and End outreach. Familia Pratt RN April 02, 2022 1:03 PM documented in this encounter [facility] 03-23-2022 Miscellaneous Notes Pt's calls to report pt wants to get colonoscopy through [facility] Surgical Team. Order, last OV note, Cologard and last colonoscopy results faxed to: [phone] as requested. Kim Chan LPN documented in this encounter [facility] 03-18-2022 Miscellaneous Notes Patient is having it at the Hospital Patient due for screening colonoscopy . Patient is not appropriate for open access. Please schedule office consult Vladimir Cordova documented in this encounter [facility] 03-18-2022 Instructions Tomy Hernandez MD - 03/18/2022 10:14 AM EDT Discuss reducing furosemide with cardiology. documented in this encounter [facility] 03-18-2022 History of Presen t illness Narrative This note was created using [employer]. Subjective Javier Degroot is a 76 year old male here with his . He felt well in general, and they were mainly concerned with lab results. Glucose and lipids elevated for unclear reasons. His diet had not changed, but he had gained weight. Edema was controlled. Review of Systems Constitutional: Negative. Respiratory: Negative. Cardiovascular: Negative. Gastrointestinal: Negative. Genitourinary: Negative. Musculoskeletal: Negative. Neurological: Negative. 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 tamsulosin (FLOMAX) 0.4 mg Take 2 capsules by mouth daily at bedtime. finasteride (PROSCAR) 5 mg tablet Take 1 tablet by mouth once daily. dilTIAZem (CARDIZEM) 120 mg tablet Take 1 tablet by mouth twice daily. aspirin 81 mg chewable tablet Take 1 tablet by mouth once daily. metoprolol tartrate, short acting, (LOPRESSOR) 50 mg tablet Take 1.5 tablets by mouth twice daily. potassium chloride ER (KLOR-CON M20) 20 mEq tablet Take 20 mEq by mouth twice daily. Docusate Sodium 250 mg capsule Take 250 mg by mouth twice daily. furosemide (LASIX) 40 mg tablet Take 40 mg by mouth twice daily. apixaban (ELIQUIS) 5 mg tab tab(s) Take 1 tablet by mouth twice daily. Current Facility-Administered Medications Medication Dose Route Frequency perflutren lipid microspheres 1.3 mL in NaCl (PF) 0.9% 10 mL injection (DEFINITY) INTRAVENOUS DIRECTED PRN sodium chloride 0.9 % (flush) 10 mL (BD POSIFLUSH) 10 mL INTRAVENOUS DIRECTED PRN Objective BP 120/64 (BP Site: Left Arm, BP Position: Sitting, BP Cuff Size: Large Adult) Pulse 72 Temp 36.2 C (97.2 F) (Temporal Artery) Resp 18 Wt 109 kg (240 lb 3.2 oz) BMI 38.19 kg/m Physical Exam Cardiovascular: Rate and Rhythm: Normal rate and regular rhythm. Heart sounds: No murmur heard. No gallop. Pulmonary: Effort: Pulmonary effort is normal. Breath sounds: Normal breath sounds. Abdominal: Palpations: Abdomen is soft. Tenderness: There is no abdominal tenderness. Musculoskeletal: Right lower leg: No edema. Left lower leg: No edema. Comments: Compression stockings in place. Neurological: General: No focal deficit present. Mental Status: He is alert. Gait: Gait normal. Component Latest Ref Rng & Units 03/10/2022 03/18/2022 Protein, Total 6.3 - 8.0 g/dL 7.8 Albumin 3.9 - 4.9 g/dL 4.5 Calcium 8.5 - 10.2 mg/dL 9.8 Bilirubin, Total 0.2 - 1.3 mg/dL 0.6 Alkaline Phosphatase 38 - 113 U/L 111 AST 14 - 40 U/L 18 ALT 10 - 54 U/L 19 Glucose 74 - 99 mg/dL 141 (H) BUN 9 - 24 mg/dL 19 Creatinine 0.73 - 1.22 mg/dL 1.26 (H) Sodium 136 - 144 mmol/L 139 Potassium 3.7 - 5.1 mmol/L 4.6 Chloride 97 - 105 mmol/L 102 CO2 22 - 30 mmol/L 24 Anion Gap 9 - 18 mmol/L 13 eGFR >=60 mL/min/1.73m 59 (L) WBC 3.70 - 11.00 k/uL 9.36 RBC 4.20 - 6.00 m/uL 4.80 Hemoglobin 13.0 - 17.0 g/dL 14.5 Hematocrit 39.0 - 51.0 % 48.1 MCV 80.0 - 100.0 fL 100.2 (H) MCH 26.0 - 34.0 pg 30.2 MCHC 30.5 - 36.0 g/dL 30.1 (L) RDW-CV 11.5 - 15.0 % 13.5 Platelet Count 150 - 400 k/uL 240 MPV 9.0 - 12.7 fL 10.2 Absolute nRBC <0.01 k/uL <0.01 Cholesterol, Total <200 mg/dL 181 Triglyceride <150 mg/dL 133 HDL Cholesterol >39 mg/dL 40 Non HDL Cholesterol <130 mg/dL 141 (H) Fasting Time hrs 14 VLDL Cholesterol <30 mg/dL 27 TC:HDL Ratio <5.10 4.53 LDL Cholesterol <100 mg/dL 114 (H) LDL:HDL Ratio <2.54 2.85 (H) Hep C Antibody IA Negative Negative Hemoglobin A1C (POCT) 4.2 - 5.6 % 5.4 Assessment and Plan 1. Stage 3a chronic kidney disease (HCC) - ICD9: 585.3, ICD10: N18.31 (primary diagnosis) Discussed diagnosis and risks. Hydration stressed. Consider reducing furosemide to once daily (He will contact his head of biology). We will forward labs to his head of biology. 2. Hyperlipidemia, unspecified hyperlipidemia type - ICD9: 272.4, ICD10: E78.5 Increased. - Encouraged following a low fat, low cholesterol diet. - Encouraged following a low carbohydrate, healthy oil intake diet. - LIPID PANEL BASIC 3. Hyperglycemia - ICD9: 790.29, ICD10: R73.9 - HEMOGLOBIN A1C (POC) 4. Impaired fasting glucose - ICD9: 790.21, ICD10: R73.01 - BASIC METABOLIC PNL - HGB A1C 5. Positive colorectal cancer screening using Cologuard test - ICD9: 787.7, ICD10: R19.5 - CONSULT TO GENERAL SURGERY 6. Secondary pulmonary arterial hypertension (HCC) - ICD9: 416.8, ICD10: I27.21 Monitored by pulmonary, cardiology. Tomy Hernandez MD documented in this encounter [facility] documented in this encounter [facility]07-01-2022 History of Present illness Narrative* Terence Alan RN - 03/13/2022 1:17 PM EDT INSIGHT CD TELEPHONIC OUTREACH Provider Action/FYI: Spk with Pt he noted had lab work completed for Appt 03/18/[address] Hernandez. BP 120/60 P 80 Pulse Oximeter 93-94% Pt denies needs or concerns. Contact made with patient: Yes Patient identified by name and . Discussed care with patient It s nice talking to you again. As a reminder, this is our bi-weekly check-in where I will be asking you questions about your health. This will only take a few minutes of your time. Is this a good time? Yes Symptoms What Chronic Disease(s) does the patient have: COPD Do you check your blood pressures at home? Yes, Enter readings: 120/60 Do you have new or worse shortness of breath with activity? No Do you have new or worsening cough? No Do you have new or worsening wheezing? No Do you need to use your rescue (Albuterol) inhaler or nebulizer more often than normal? No Are you having any other symptoms that your PCP needs to know about? No Symptom Escalation The patient required an escalation for symptom(s)? No Medications Do you have any questions about taking your medication or which medications you should be on? No Do you need any medication refills at this time, including any of the medications you might take only when needed? No Social We would like to make sure you have what you need so that your basic needs are met- including your personal safety, food, housing and medications? Would you like to speak with a social work swat team member to help give you support for any of these needs? No It can be normal to feel anxious or down during a time like this. Would you like to talk to a mental health professional about how you have been feeling? No Closing Thank you for taking the time to talk with me today. We want to work with you to ensure that we arekeeping your medical condition(s) well-controlled and to keep you healthy and out of the doctor's office or hospital. It s also not too late for me to sign you up for automated weekly questionnaires through [employer]. This is an easy way for us to stay connected each week. Are you interested? No, I understand. We can always sign you up in the future if you change your mind. Just as a reminder, will continue to call you every other week to check in on your health. Our calls should take 10-15 minutes or less. Remember, if you have concerns in between our calls, please call your PCP's office right away. Thank you. Enter next patient outreach date for two weeks on the same day of the week as today in the Track PtOutreach and End outreach. Familia Pratt RN March 13, 2022 1:17 PM [facility] [place] History of Present illness Narrative* Terence Alan RN - 02/25/2022 3:04 PM EDT INSIGHT CDM TELEPHONIC OUTREACH Provider Action/FYI: Spk with Pt he denies new or worsening COPD or other symptoms. BP 128/69, HR 73, Pulse Oximeter 96%, Wt 243 lbs, Pt is trying to stay active by swimming in the pool as able. Denies needs or concerns. Contact made with patient: Yes Patient identified by name and . Discussed care with patient It s nice talking to you again. As a reminder, this is our bi-weekly check-in where I will be asking you questions about your health. This will only take a few minutes of your time. Is this a good time? Yes Symptoms What Chronic Disease(s) does the patient have: COPD Do you check your blood pressures at home? Yes, Enter readings: 128/69 Do you have new or worse shortness of breath with activity? No Do you have new or worsening cough? No Do you have new or worsening wheezing? No Do you need to use your rescue (Albuterol) inhaler or nebulizer more often than normal? No Are you having any other symptoms that your PCP needs to know about? No Symptom Escalation The patient required an escalation for symptom(s)? No Medications Do you have any questions about taking your medication or which medications you should be on? No Do you need any medication refills at this time, including any of the medications you might take only when needed? No Social We would like to make sure you have what you need so that your basic needs are met- including your personal safety, food, housing and medications? Would you like to speak with a social work swat team member to help give you support for any of these needs? No It can be normal to feel anxious or down during a time like this. Would you like to talk to a mental health professional about how you have been feeling? No Closing Thank you for taking the time to talk with me today. We want to work with you to ensure that we arekeeping your medical condition(s) well-controlled and to keep you healthy and out of the doctor's office or hospital. It s also not too late for me to sign you up for automated weekly questionnaires through [employer]. This is an easy way for us to stay connected each week. Are you interested? No, I understand. We can always sign you up in the future if you change your mind. Just as a reminder, will continue to call you every other week to check in on your health. Our calls should take 10-15 minutes or less. Remember, if you have concerns in between our calls, please call your PCP's office right away. Thank you. Enter next patient outreach date for two weeks on the same day of the week as today in the Track PtOutreach and End outreach. Familia Pratt RN February 25, 2022 3:04 PM [facility] [place] History of Present illness Narrative* Terence Alan RN - 02/10/2022 11:25 AM EDT INSIGHT CDM TELEPHONIC OUTREACH Provider Action/FYI: Spk with Pt, he denies new or worsening COPD or other symptoms. Pulse Oximeter 95-96%, BP 142/71, Wt 240 lbs Denies needs or concerns. Contact made with patient: Yes Patient identified by name and . Discussed care with patient It s nice talking to you again. As a reminder, this is our bi-weekly check-in where I will be asking you questions about your health. This will only take a few minutes of your time. Is this a good time? Yes Symptoms What Chronic Disease(s) does the patient have: COPD Do you check your blood pressures at home? Yes, Enter readings: 142/71 Do you have new or worse shortness of breath with activity? No Do you have new or worsening cough? No Do you have new or worsening wheezing? No Do you need to use your rescue (Albuterol) inhaler or nebulizer more often than normal? No Are you having any other symptoms that your PCP needs to know about? No Symptom Escalation The patient required an escalation for symptom(s)? No Medications Do you have any questions about taking your medication or which medications you should be on? No Do you need any medication refills at this time, including any of the medications you might take only when needed? No Social We would like to make sure you have what you need so that your basic needs are met- including your personal safety, food, housing and medications? Would you like to speak with a social work swat team member to help give you support for any of these needs? No It can be normal to feel anxious or down during a time like this. Would you like to talk to a mental health professional about how you have been feeling? No Closing Thank you for taking the time to talk with me today. We want to work with you to ensure that we arekeeping your medical condition(s) well-controlled and to keep you healthy and out of the doctor's office or hospital. It s also not too late for me to sign you up for automated weekly questionnaires through [employer]. This is an easy way for us to stay connected each week. Are you interested? No, I understand. We can always sign you up in the future if you change your mind. Just as a reminder, will continue to call you every other week to check in on your health. Our calls should take 10-15 minutes or less. Remember, if you have concerns in between our calls, please call your PCP's office right away. Thank you. Enter next patient outreach date for two weeks on the same day of the week as today in the Track PtOutreach and End outreach. Familia Pratt RN February 10, 2022 11:25 AM [facility] [place] History of Present illness Narrative* Javier Starr MD - 01/26/2022 3:46 PM EDT Chief Complaint Patient presents with: Edema: possible cellulitis- pulmonolgy referred him HPI Javier Degroot is a 76 year old male who presents here today for Above Complaints. Patient states that he was at the pulmonlogist's office this morning and was worried about recurrent cellulitis. They recommended he follow up here today for further evaluation. Has 2 small wounds onhis left jean-baptiste. Thinks he could have gotten them by bumping on the mower, but is not sure when. Applying abx ointment and band aids and healing slowly. Has some mild erythema without fever/chills, purulent drainage, warmth to touch, TTP. Wears compression stockings for swelling. Past medical history, appointments, medications, allergies reviewed. 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 Left 2015. COLSC FLX W/RMVL OF TUMOR POLYP LESION SNARE TQ 06/16/2011 LEFT HEART CATH,PERCUTANEOUS 05/06/2021 PAST SURGICAL HISTORY OF 07/14/2012 closure of oroantral fistula (sinuses) SGMDSC FLX RMVL RYAN POLYP/OTH LES SNARE TQ 07/23/2011 SIGMOIDOSCOPY FLX DX W/COLLJ SPEC BR/WA IF PFRMD 12/14/2011 Sigmoidoscopy, flexible TAVR/ROSETTE PERCUT 07/10/2021 femoral Family History FAMILY HISTORY Problem Relation Age of Onset Diabetes Mother other (Other) Mother old age, natural causes Patient Allergies ALLERGIES Allergen Reactions Lisinopril Cough Current Medications Current Outpatient Medications on File Prior to Visit Medication Sig acetaminophen (TYLENOL ARTHRITIS PAIN ORAL) Take 500 mg by mouth twice daily. tamsulosin (FLOMAX) 0.4 mg Take 2 capsules by mouth daily at bedtime. finasteride (PROSCAR) 5 mg tablet Take 1 tablet by mouth once daily. dilTIAZem (CARDIZEM) 120 mg tablet Take 1 tablet by mouth twice daily. metoprolol tartrate, short acting, (LOPRESSOR) 50 mg tablet Take 1.5 tablets by mouth twice daily. potassium chloride ER (KLOR-CON M20) 20 mEq tablet Take 20 mEq by mouth twice daily. Docusate Sodium 250 mg capsule Take 250 mg by mouth twice daily. furosemide (LASIX) 40 mg tablet Take 40 mg by mouth twice daily. apixaban (ELIQUIS) 5 mg tab tab(s) Take 1 tablet by mouth twice daily. aspirin 81 mg chewable tablet Take 1 tablet by mouth once daily. Current Facility-Administered Medications on File Prior to Visit Medication perflutren lipid microspheres 1.3 mL in NaCl (PF) 0.9% 10 mL injection (DEFINITY) sodium chloride 0.9 % (flush) 10 mL (BD POSIFLUSH) sodium chloride 0.9 % (flush) 10 mL (BD POSIFLUSH) sodium chloride 0.9 % (flush) 10 mL (BD POSIFLUSH) Social History Social History Tobacco Use Smoking status: Former Smoker Packs/day: 1.50 Years: 50.00 Pack years: 75.00 Types: Cigarettes Quit date: 06/24/2011 Years since quittin.6 Smokeless tobacco: Former User Quit date: 06/24/2012 Substance Use Topics Alcohol use: No Drug use: No Review of Symptoms REVIEW OF SYSTEMS See HPI EXAM: BP 140/68 Pulse 100 Temp 37.3 C (99.1 F) Resp 18 Wt 109.1 kg (240 lb 9.6 oz) SpO2 94% BMI 38.25 kg/m General Appearance: Well appearing, alert, in no acute distress, well-hydrated, well nourished.. Skin: Two 1 cm skin tears on left jean-baptiste without surrounding erythema, drainage, TTP, warmth to touch, streaking. Extremities: No deformities, edema, clubbing or cyanosis. Good capillary refill. . Health Maintenance List HEPATITIS C SCREENING Never done SHINGRIX VACCINE(1 of 2) Never done DTAP,TDAP,TD(1 - Tdap) due on 03/26/2005 BP CONTROLLED (<130/80) due on 07/03/2020 ADVANCE DIRECTIVE DISCUSSION Never done COVID-19 VACCINE(4 - Booster for Pfizer series) due on 11/18/2021 LUNG CANCER SCREENING due on 06/13/2022 ANNUAL PCP TEAM CHRONIC DISEASE VISIT due on 09/16/2022 DEPRESSION SCREENING due on 09/16/2022 DIABETES SCREEN due on 08/05/2024 SPIROMETRY Completed INFLUENZA Completed PNEUMOVAX AGE 65 AND OVER WITH 5YR LOOKBACK Addressed MENINGOCOCCAL CONJUGATE Aged Out ASSESSMENT/PLAN: 1. Wound of left lower extremity, initial encounter - ICD9: 894.0, ICD10: S81.802A (primary diagnosis) No apparent cellulitis today. Will update tetanus booster and treat with bactroban ointment BID-TIDfor 7-10 days or until wounds heal. Red flags for re- assessment reviewed with patient in detail. F/u with PCP. - MUPIROCIN 2 % TOPICAL OINTMENT 2. Need for vaccination - ICD9: V05.9, ICD10: Z23 - TDAP VACCINE AGE 7+ IM Javier Starr MD documented [facility] History of Present illness Narrative* Terence Alan RN - 01/23/2022 1:19 PM EDT PRIMARY CARE COORDINATION QUICK NOTE Provider Action/FYI Spk with Sarah / Pt denies falls, No ambulatory DME GoaL: To be more mobile, and increased endurance Patient identified by name and date . Familia Pratt RN January 23, 2022 1:20 PM documented in this encounterHol[facility] [place]-21-[facility]22 History of Present illness Narrative* Terence Alan RN - 01/01/2022 11:06 AM EDT INSIGHT CDM TELEPHONIC OUTREACH Provider Action/FYI: Spk with Pt who denies new or worsening COPD or other symptoms, wears Oxygen @ 2 liters at HS, Pulse Oximeter 95% Pt is scheduled 01/01/22 for 6 min walk Test, 01/05/22 PFT and 01/05/22 Appt with [facility] for Left knee evaluation Contact made with patient: Yes Patient identified by name and . Discussed care with patient It s nice talking to you again. As a reminder, this is our bi-weekly check-in where I will be asking you questions about your health. This will only take a few minutes of your time. Is this a good time? Yes Symptoms What Chronic Disease(s) does the patient have: COPD Do you check your blood pressures at home? Yes, Enter readings: 138/68 Do you have new or worse shortness of breath with activity? No Do you have new or worsening cough? No Do you have new or worsening wheezing? No Do you need to use your rescue (Albuterol) inhaler or nebulizer more often than normal? No Are you having any other symptoms that your PCP needs to know about? No Symptom Escalation The patient required an escalation for symptom(s)? No Medications Do you have any questions about taking your medication or which medications you should be on? No Do you need any medication refills at this time, including any of the medications you might take only when needed? No Social We would like to make sure you have what you need so that your basic needs are met- including your personal safety, food, housing and medications? Would you like to speak with a social work swat team member to help give you support for any of these needs? No It can be normal to feel anxious or down during a time like this. Would you like to talk to a mental health professional about how you have been feeling? No Closing Thank you for taking the time to talk with me today. We want to work with you to ensure that we arekeeping your medical condition(s) well-controlled and to keep you healthy and out of the doctor's office or hospital. It s also not too late for me to sign you up for automated weekly questionnaires through [employer]. This is an easy way for us to stay connected each week. Are you interested? No, I understand. We can always sign you up in the future if you change your mind. Just as a reminder, will continue to call you every other week to check in on your health. Our calls should take 10-15 minutes or less. Remember, if you have concerns in between our calls, please call your PCP's office right away. Thank you. Enter next patient outreach date for two weeks on the same day of the week as today in the Track PtOutreach and End outreach. Familia Pratt RN January 01, 2022 11:07 AM documented in this encounterHolzer [facility] [place]04-19-2022 NoteHNO ID: [id number] Author: Tamika Dutta APRN.SALES OPERATIONS DIRECTOR Service: ? Author Type: Nurse Practitioner Type: Progress Notes Filed: 12/30/2021 3:30 PM Note Text: INTERVENTIONAL CARDIOLOGY SERVICE 6 Month Post-TAVR Follow-Up PRIMARY CARE PHYSICIAN: Tomy Hernandez [address] [place] [address] Chief Complaint Patient presents with: CARD Follow Up 6 Month: VALVE CLINIC FOLLOW UP HISTORY OF PRESENT ILLNESS: Mr. Degroot is a 76 year old male known to Dr. Salmeron?with a PMH significant for HTN, HLD, Former Smoker, Moderate CAD, Chronic A. Fib (on Eliquis), Previous TIA in 2019, DVT/PE, NOAM, COPD, Pulmonary HTN, COVID infection 10/03/2020, Home O2 s/p COVID (only 2L NC at night), and paradoxical low flow, low gradient severe aortic valve stenosis?who underwent a transcatheter aortic valve replacement with?26?mm Duenas Colby S3 Ultra?THV with ?on 07/10/2021. He presents today for a 6 Month post-TAVR follow up visit. Today, he denies chest pain or chest pressure. He does endorse some fatigue and shortness of breath with exertion, which did improved with cardiac rehab. He denies orthopnea, PND, dizziness, lightheadedness, palpitations, or syncope. He has chronic mild lower extremity edema, which has improved since his TAVR and with wearing compression stockings daily. Overall, he is feeling much better since his TAVR procedure. Subjective Review of Systems Constitutional: Positive for malaise/fatigue (with exertion). Negative for chills, diaphoresis, fever and weight loss. Respiratory: Positive for shortness of breath (with exertion). Negative for cough. Cardiovascular: Negative for chest pain, palpitations, orthopnea and leg swelling. Gastrointestinal: Negative for abdominal pain, heartburn, nausea and vomiting. Genitourinary: Negative for hematuria. Musculoskeletal: Negative for myalgias. Neurological: Negative for dizziness, tingling, loss of consciousness, weakness and headaches. Endo/Heme/Allergies: Does not bruise/bleed easily. Psychiatric/Behavioral: Negative for depression. PAST MEDICAL HISTORY Diagnosis Date - Acute respiratory failure with hypoxia (HCC) 10/03/2020 transferred to LT[facility] - Adenoma of left adrenal gland 04/13/2016 - Aortic stenosis, moderate 11/26/2020 - Bacteremia due to Escherichia coli 10/18/2020 UTI in LTAC - Benign neoplasm of colon 06/16/2011 - Benign neoplasm of rectum and anal canal 06/16/2011 - Bilateral pulmonary embolism (HCC) 10/04/2015 - Brain TIA 01/09/2019 left sided weakness - Centrilobular emphysema (HCC) 04/13/2016 Dr. 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 Left 2015. - COLSC FLX W/RMVL OF TUMOR POLYP LESION SNARE TQ 06/16/2011 - LEFT HEART CATH,PERCUTANEOUS 05/06/2021 - PAST SURGICAL HISTORY OF 07/14/2012 closure of oroantral fistula (sinuses) - SGMDSC FLX RMVL RYAN POLYP/OTH LES SNARE TQ 07/23/2011 - SIGMOIDOSCOPY FLX DX W/COLLJ SPEC BR/WA IF PFRMD 12/14/2011 Sigmoidoscopy, flexible - TAVR/ROSETTE PERCUT 07/10/2021 femoral FAMILY HISTORY Problem Relation Age of Onset - Diabetes Mother - other (Other) Mother old age, natural causes Social History Tobacco Use - Smoking status: Former Smoker Packs/day: 1.50 Years: 50.00 Pack years: 75.00 Types: Cigarettes Quit date: 06/24/2011 Years since quittin.5 - Smokeless tobacco: Former User Quit date: 06/24/2012 Substance Use Topics - Alcohol use: No - Drug use: No ALLERGIES Allergen Reactions - Lisinopril Cough Medications: Current Outpatient Medications Medication Sig Dispense Refill - acetaminophen (TYLENOL ARTHRITIS PAIN ORAL) Take 500 mg by mouth twice daily. - tamsulosin (FLOMAX) 0.4 mg Take 2 capsules by mouth daily at bedtime. 180 capsule 3 - finasteride (PROSCAR) 5 mg tablet Take 1 tablet by mouth once daily. 90 tablet 3 - dilTIAZem (CARDIZEM) 120 mg tablet Take 1 tablet by mouth twice daily. - aspirin 81 mg chewable tablet Take 1 tablet by mouth once daily. 30 tablet 2 - metoprolol tartrate, short acting, (LOPRESSOR) 50 (more content not included)...[facility]04-19-2022 Miscellaneous Notes* Telephone Encounter - Tamika Dutta APRN.CNP - 12/30/2021 3:15 PM EDT Please schedule patient for 1 year post op TAVR Echo and follow up in appt with myself around 07/10/22. Thank you, Tamika Dutta APRN.CNP documented in this encounterHol[facility] [place]04-19-2022 Instructions* Patient Instructions* Tamika Dutta APRN.CNP - 12/30/2021 2:31 PM EDT Follow up echocardiogram and Blood work in June for one year post TAVR appt. Need antibiotics prior to dental cleaning Heart Failure What is heart failure? Heart failure (HF) means the heart is not pumping blood as well as it should. It may pump at a different speed, pump blood with less force, or pump less blood with each heartbeat. When less blood is flowing out of the heart to the body, muscles and other tissues may not get enough oxygen. The kidneys may not work as well to remove excess fluid in the form of urine. As a result, blood backs up into the blood vessels. The extra fluid seeps into the lungs or other parts of the body. Fluid in the lungs makes it hard to breathe. Fluid seeping into other parts of the body causes swelling. When there is too much fluid in the body, it puts more strain on the heart. Heart failure is one of the most common causes of heart-related illness and in the [place]. What is the cause? A number of things can cause heart failure, such as: Narrowing or blockage in the arteries that bring blood to the heart muscle Infection of the heart Heart attack High blood pressure Heart valve problems Genetic problems with the heart muscle Alcoholism Diabetes Lung disease Problems that may worsen or trigger heart failure, especially if your heart muscle is weak, include: Severe anemia (a low level of red blood cells) An overactive or underactive thyroid gland Infection A heartbeat that is too fast or too slow Too much salt or fluid in the diet Working your body too hard with exercise or daily activities Emotional stress What are the symptoms? The symptoms of heart failure may include: Shortness of breath or trouble breathing, at first just during exercise, then with any activity, and finally even when you are resting Waking up at night with trouble breathing or being unable to lie flat in bed because of shortness of breath Coughing Swollen ankles, feet, and legs Weight gain caused by extra fluid in the body Feeling tired most of the time and not able to do your usual activities Lack of appetite and feeling sick to your stomach Feeling like your heart is racing or fluttering Lightheadedness or fainting How is it diagnosed? Your healthcare provider will ask about your symptoms and examine you. Tests may include: Chest X-ray An ECG (also called an EKG), which measures and records your heartbeat Blood or urine tests Echocardiogram, which uses sound waves (ultrasound) to see how well your heart muscle is pumping How is it treated? Heart failure can be treated and managed. The goals of treatment are: Help your heart so it doesn t have to work as hard Help your heart pump blood better Get rid of extra water in your body Your healthcare provider may prescribe medicine to relax the blood vessels and lower blood pressure. Then the heart doesn t have to work as hard. You may need to take 2 or more medicines to treat your heart failure. It may take several weeks or months to find the best treatment for you. In some cases, heart failure can get better and even be cured. For example, if it is caused by an infection, it may be cured with treatment of the infection. Heart failure due to coronary artery disease is generally not cured and most often gets worse over time. However, carefully following your treatment plan can: Slow down the worsening of heart failure and help you live longer Help prevent trips to the hospital Help you feel better and do more How can I take care of myself? If you have heart failure, there are things you can do to take care of yourself now and prevent problems in the future. Follow your treatment plan and know how to take your medicines. Work as a partner with your provider. This means having regular provider visits and following your treatment plan. Follow the directions that come with your medicine, including information about food or alcohol. Make sure you know how and when to take your medicine. Do not take more or less than you are supposed to take. Many medicines have side effects. A side effect is a symptom or problem that is caused by the medicine. Ask your healthcare provider or pharmacist what side effects your medicine may cause and what you should do if you have side effects. Ask if you should avoid some nonprescription medicines. Don t smoke, eat a healthy diet, and watch your weight and blood pressure. Quit smoking if you are a smoker. Lose weight if you are overweight and eat a healthy diet. ?Follow a low-salt (low-sodium) diet if it is recommended by your provider. Too much salt makes your body keep too much water and makes your heart have to work harder. ?Follow your healthcare provider's advice about how much liquid you should drink. ?Ask your provider if you should avoid drinking alcohol. Alcohol can weaken your heart or may worsen heart failure. Also, some of your medicines may not work well if you drink alcohol. Weigh yourself every morning after you use the bathroom but before you eat or drink anything. Weighing yourself every day helps you know if extra fluid is building up in your body. A buildup of fluidis a sign that your heart failure may be getting worse. Weight gain can let you know about fluid buildup before you start having swelling. Keep track of your weight in a diary or on the calendar. Ask your healthcare provider when you should report weight gain. Letting your provider know about weight gain when it first happens can save you a trip to the emergency room or a stay in the hospital. Also check your pulse and blood pressure every day. Learn how to take your own blood pressure or have a family member learn how to take it. Be as physically active as you can. How active you can be depends on how bad the heart failure is. A program of gentle exercise helps most people. Your provider can tell you what level of exercise is right for you. Exercise helps your heart and body get stronger. It also improves your blood flow and energy level. Don t exercise outdoors if it is very hot, cold, humid, or smoggy. Balance exercise with rest. Make sure that your activities don t make you too tired or short of breath. Take rest breaks during the day. Avoid getting very hot or cold because it may make your heart work harder. Try to lessen the stress in your life. Anxiety and anger can cause a fast heart rate and high blood pressure. If you need help with this, ask your healthcare provider. Protect yourself against infections. Get a flu shot every year. When you have heart failure, you should not get the nasal spray vaccine (FluMist). Get the pneumococcal shot. Ask your healthcare provider: How and when you will hear your test results How long it will take to recover What activities you should avoid and when you can return to your normal activities How to take care of yourself at home What symptoms or problems you should watch for and what to do if you have them Make sure you know when you should come back for a checkup. How can I help prevent heart failure? You can prevent this disease with a heart-healthy lifestyle: Eat a healthy diet and keep a healthy weight. Stay fit with the right kind of exercise for you. Decrease stress. Don t smoke. Limit your use of alcohol. Talk to your healthcare provider about your personal and family medical history and your lifestyle habits. This will help you know what you can do to lower your risk for heart failure. documented in this encounterHol[facility] [place]04-19-2022 History of Present illness Narrative* Tamika Dutta APRN.CNP - 12/30/2021 2:00 PM EDT Images from the original note were not included. INTERVENTIONAL CARDIOLOGY SERVICE 6 Month Post-TAVR Follow-Up PRIMARY CARE PHYSICIAN: Tomy Hernandez [address] [place] [address] Chief Complaint Patient presents with: CARD Follow Up 6 Month: VALVE CLINIC FOLLOW UP HISTORY OF PRESENT ILLNESS: Mr. Degroot is a 76 year old male known to Dr. Salmeron with a PMH significant for HTN, HLD, Former Smoker, Moderate CAD, Chronic A. Fib (on Eliquis), Previous TIA in 2019, DVT/PE, NOAM, COPD, Pulmonary HTN, COVID infection 10/03/2020, Home O2 s/p COVID (only 2L NC at night), and paradoxical low flow, low gradient severe aortic valve stenosis who underwent a transcatheter aortic valve replacement with 26 mm Duenas Colby S3 Ultra THV with Dr. Liu on 07/10/2021. He presents today for a 6 Month post-TAVR follow up visit. Today, he denies chest pain or chest pressure. He does endorse some fatigue and shortness of breathwith exertion, which did improved with cardiac rehab. He denies orthopnea, PND, dizziness, lightheadedness, palpitations, or syncope. He has chronic mild lower extremity edema, which has improved since his TAVR and with wearing compression stockings daily. Overall, he is feeling much better since his TAVR procedure. Subjective Review of Systems Constitutional: Positive for malaise/fatigue (with exertion). Negative for chills, diaphoresis, fever and weight loss. Respiratory: Positive for shortness of breath (with exertion). Negative for cough. Cardiovascular: Negative for chest pain, palpitations, orthopnea and leg swelling. Gastrointestinal: Negative for abdominal pain, heartburn, nausea and vomiting. Genitourinary: Negative for hematuria. Musculoskeletal: Negative for myalgias. Neurological: Negative for dizziness, tingling, loss of consciousness, weakness and headaches. Endo/Heme/Allergies: Does not bruise/bleed easily. Psychiatric/Behavioral: Negative for depression. 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 Left 2015. COLSC FLX W/RMVL OF TUMOR POLYP LESION SNARE TQ 06/16/2011 LEFT HEART CATH,PERCUTANEOUS 05/06/2021 PAST SURGICAL HISTORY OF 07/14/2012 closure of oroantral fistula (sinuses) SGMDSC FLX RMVL RYAN POLYP/OTH LES SNARE TQ 07/23/2011 SIGMOIDOSCOPY FLX DX W/COLLJ SPEC BR/WA IF PFRMD 12/14/2011 Sigmoidoscopy, flexible TAVR/ROSETTE PERCUT 07/10/2021 femoral FAMILY HISTORY Problem Relation Age of Onset Diabetes Mother other (Other) Mother old age, natural causes Social History Tobacco Use Smoking status: Former Smoker Packs/day: 1.50 Years: 50.00 Pack years: 75.00 Types: Cigarettes Quit date: 06/24/2011 Years since quittin.5 Smokeless tobacco: Former User Quit date: 06/24/2012 Substance Use Topics Alcohol use: No Drug use: No ALLERGIES Allergen Reactions Lisinopril Cough Medications: Current Outpatient Medications Medication Sig Dispense Refill acetaminophen (TYLENOL ARTHRITIS PAIN ORAL) Take 500 mg by mouth twice daily. tamsulosin (FLOMAX) 0.4 mg Take 2 capsules by mouth daily at bedtime. 180 capsule 3 finasteride (PROSCAR) 5 mg tablet Take 1 tablet by mouth once daily. 90 tablet 3 dilTIAZem (CARDIZEM) 120 mg tablet Take 1 tablet by mouth twice daily. aspirin 81 mg chewable tablet Take 1 tablet by mouth once daily. 30 tablet 2 metoprolol tartrate, short acting, (LOPRESSOR) 50 mg tablet Take 1.5 tablets by mouth twice daily. 0 potassium chloride ER (KLOR-CON M20) 20 mEq tablet Take 20 mEq by mouth twice daily. Docusate Sodium 250 mg capsule Take 250 mg by mouth twice daily. furosemide (LASIX) 40 mg tablet Take 40 mg by mouth twice daily. apixaban (ELIQUIS) 5 mg tab tab(s) Take 1 tablet by mouth twice daily. 0 Current Facility-Administered Medications Medication Dose Route Frequency Provider Last Rate Last Admin perflutren lipid microspheres 1.3 mL in NaCl (PF) 0.9% 10 mL injection (DEFINITY) INTRAVENOUS DIRECTED PRN Tamika Dutta APRN.SALES OPERATIONS DIRECTOR sodium chloride 0.9 % (flush) 10 mL (BD POSIFLUSH) 10 mL INTRAVENOUS DIRECTED PRN Tamika Dutta, [employer].SALES OPERATIONS DIRECTOR sodium chloride 0.9 % (flush) 10 mL (BD POSIFLUSH) 10 mL INTRAVENOUS DIRECTED PRN Tamika Dutta, [employer].SALES OPERATIONS DIRECTOR sodium chloride 0.9 % (flush) 10 mL (BD POSIFLUSH) 10 mL INTRAVENOUS DIRECTED PRN Tamika Dutta APRN.SALES OPERATIONS DIRECTOR Objective Physical Examination: Vitals:BP 138/64 Pulse 78 Resp 18 Ht 5' 6.5 (1.69m) Wt 224 lb (101.6kg) SpO2 97[room air]% BMI 35.62 kg/(m^2). Last 2 Encounter Wt Readings: Date: Wt: 09/16/2021 239 lb (108.4 kg) 08/26/2021 240 lb (108.9 kg) Physical Exam Vitals and nursing note reviewed. Constitutional: Appearance: Normal appearance. He is obese. HENT: Head: Normocephalic and atraumatic. Neck: Vascular: No carotid bruit or JVD. Cardiovascular: Rate and Rhythm: Normal rate. Rhythm irregular. Pulses: Radial pulses are 3+ on the right side and 3+ on the left side. Heart sounds: S1 normal and S2 normal. Heart sounds not distant. No murmur heard. No friction rub. No gallop. No S3 or S4 sounds. Pulmonary: Effort: Pulmonary effort is normal. Breath sounds: Normal breath sounds. Abdominal: Palpations: Abdomen is soft. Musculoskeletal: General: Normal range of motion. Cervical back: Normal range of motion and neck supple. Skin: General: Skin is warm and dry. Neurological: Mental Status: He is alert and oriented to person, place, and time. Motor: Motor function is intact. Gait: Gait is intact. Psychiatric: Mood and Affect: Mood and affect normal. Cognition and Memory: Memory normal. Judgment: Judgment normal. Diagnostic tests reviewed for today's visit: Echocardiogram 08/21/2021 - The left ventricle is small. Left ventricular systolic function is normal. EF = 71 5% (2D 4-ch.) Left ventricular diastolic function was not evaluated due to AF. - The right ventricle is normal in size. Right ventricular systolic function is normal. - The left atrial cavity is severely dilated. - The right atrial cavity is dilated. - The visualized aorta is borderline dilated with a maximal dimension of 3.9 cm. - Duenas-Colby prosthetic aortic valve. There is trace (trace - 1+) aortic valve regurgitation. The peak gradient is 23 mmHg, the mean gradient is 12 mmHg and the dimensionless valve index is 0.34. Post TAVR gradients were 20/10mmHg. - Exam was compared with the prior echocardiographic exam performed on 07-11-21(Limited post TAVR) There is no significant change. TAVR Procedure Note 07/10/2021 PROCEDURES: 1. Successful transfemoral implantation of a 26 mm Duenas-Colby S3 THV deployed at Nominal fill volume 2. Placement of a temporary venous pacemaker 3. Right femoral arterial access site closure with a single Perclose Proglide device and 8Fr. Angioseal 4. Selective angiography of the right common femoral artery (first order) 5. Successful placement and removal of a Caspar Cerebral Embolic Protection device via the right radial artery Assessment and Plan: S/P TAVR - Underwent a TAVR on 07/10/2021, with 26 mm Duenas Colby S3 THV with Dr. Liu. Today, he reports chronic shortness of breath and fatigue with exertion. Although he has noticed Significant improvement since completing cardiac rehab. His symptoms are likely multifactorial as he is a former smoker and obese. He plans to lose weight and regularly exercise going forward. Overall, he is feeling better since his TAVR. -1 Month Post TAVR echo revealed well seated valve with a peak and mean gradient of 23 mmHg and 12 mmHg, DI of 0.34. Trace-1+ AI noted on echo. LV EF of 71%. - EKG completed today. - NYHA Class II today - Cardiac Rehab Completed in [place] - Continue ASA 81 mg. Patient is also taking Eliquis for stroke prophylaxis due to A. Fib. He denies any bleeding issues. Patient also has underlying CAD. Would recommend continuing ASA and Eliquis unless he develops any significant bleeding issues in the future. - Post-TAVR ECHO and lab work was ordered, will need to obtain prior to 1 year post visit. A. Fib - Rate controlled - Continue Eliquis for stroke prophylaxis. Obesity - BMI: 35 - Weight loss, diet, and exercise education provided Follow up with myself in 6 months Follow up with Dr. Salmeron as scheduled. SIGNATURE: Tamika Dutta APRN.CNP PATIENT NAME: Javier Degroot DATE: 12/30/2021 TIME: 10:27 AM PAGER/CONTACT #: [phone] documented in [facility] [place] Nurse Note* Teena Sarah MA - 12/30/2021 1:45 PM EDT Patient denies any cardiac issues or symptoms. 5 METER WALK 1. 4.31 SECONDS 2. 4.56 3. 4.48 documented in this encounterHol[facility] [place]22 Miscellaneous Notes* Telephone Encounter - Anabella Steve LPN - 12/17/2021 1:34 PM EDT Patient has been identified by name and date of : Yes Patient phones for refill(s): Pending Prescriptions Disp Refills TAMSULOSIN 0.4 MG CAPSULE 180 capsule 3 Sig: Take 2 capsules by mouth daily at bedtime. CRISTIANE: No FINASTERIDE 5 MG TABLET 90 tablet 3 Sig: Take 1 tablet by mouth once daily. CRISTIANE: No Date of last office visit in primary care: 09/16/2021 6 month follow-up: 03/18/2022 Last 2 Encounter Wt Readings: Date: Wt: 09/16/2021 108.4 kg (239 lb) 08/26/2021 108.9 kg (240 lb) Previous labs/tests for medication: Not applicable Please advise. Thank you. Anabella Steve LPN documented in this encounterHol[facility] [place]12-14-[facility]21 NoteHNO ID: [id number] Author: Tamika Dutta APRN.SALES OPERATIONS DIRECTOR Service: ? Author Type: Nurse Practitioner Type: Progress Notes Filed: 08/26/2021 3:59 PM Note Text: INTERVENTIONAL CARDIOLOGY SERVICE 1 Month Post-TAVR Follow-Up PRIMARY CARE PHYSICIAN: Tomy Hernandez [address] [place] [address] Chief Complaint Patient presents with: CARD Follow Up 1 Month: valve clinic HISTORY OF PRESENT ILLNESS: Mr. Degroot is a 76 year old male known to Dr. Salmeron with a PMH significant for HTN, HLD, Former Smoker, Moderate CAD, Chronic A. Fib (on Eliquis), Previous TIA in 2019, DVT/PE, NOAM, COPD, Pulmonary HTN, COVID infection 10/03/2020, Home O2 s/p COVID (only 2L NC at night), and paradoxical low flow, low gradient severe aortic valve stenosis?who underwent a transcatheter aortic valve replacement with 26 mm Duenas Colby S3 Ultra THV with Dr. Liu on 07/10/2021. He presents today for a 1 Month post-TAVR follow up visit. Today, he denies chest pain or chest pressure. He has chronic fatigue and shortness of breath. Fatigue and shortness of breath have improved since TAVR. Patient has Cellulitis on RLE. He is currently on Doxycycline. He report mild lower extremity edema. He denies orthopnea, PND, palpitations, dizziness, lightheadedness, or syncope. He has not started exercising regularly but states he is able to work around the house without exertional symptoms. He plans to start Cardiac Rehab in [place]. He has a follow up appointment with Dr. Salmeron in 3 months. Subjective Review of Systems Constitutional: Positive for malaise/fatigue. Negative for chills, diaphoresis, fever and weight loss. Respiratory: Negative for cough and shortness of breath. Cardiovascular: Positive for leg swelling. Negative for chest pain, palpitations and orthopnea. Gastrointestinal: Negative for abdominal pain, heartburn, nausea and vomiting. Genitourinary: Negative for hematuria. Musculoskeletal: Negative for myalgias. Skin: Cellulitis RLE Neurological: Negative for dizziness, tingling, loss of consciousness, weakness and headaches. Endo/Heme/Allergies: Does not bruise/bleed easily. Psychiatric/Behavioral: Negative for depression. PAST MEDICAL HISTORY Diagnosis Date - Acute respiratory failure with hypoxia (HCC) 10/03/2020 transferred to LT[facility] - Adenoma of left adrenal gland 04/13/2016 - Aortic stenosis, moderate 11/26/2020 - Bacteremia due to Escherichia coli 10/18/2020 UTI in LTAC - Benign neoplasm of colon - Benign neoplasm of rectum and anal canal - Bilateral pulmonary embolism (HCC) 10/04/2015 - Brain TIA 01/09/2019 left sided weakness - Centrilobular emphysema ([facility]) 04/13/2016 Dr. Bran Russell, pulmonary - Chronic atrial fibrillation (HCC) 10/04/2015 Dr. Jeff Bowie, [facility] - COVID-19 10/03/2020 - Elevated prostate specific antigen (PSA) - ERECTILE DYSFUNCTION 09/09/2006 - Hyperlipidemia 01/06/2016 - Hypertension 10/12/2013 - Personal history of tobacco use, presenting hazards to health 08/26/2005 - Pneumonia due to COVID-19 virus 10/03/2020 - Pure hypercholesterolemia - Tobacco use 03/18/2012 - Urinary retention 07/25/2012 PAST SURGICAL HISTORY Procedure Laterality Date - CATARACT EXTRACTION W/ INTRAOCULAR LENS IMPLANT HX Bilateral 01/2019 Right 2019. Left 2015. - COLONOS W/REM POLYP SNARE 06/16/2011 - LEFT HEART CATH,PERCUTANEOUS 05/06/2021 - PAST SURGICAL HISTORY OF 07/14/2012 closure of oroantral fistula (sinuses) - SIGMOIDOSCOPY FLEX DIAG 12/14/2011 Sigmoidoscopy, flexible - SIGMOIDS DIAG W/REM POLYP SNARE 07/23/2011 - TAVR/ROSETTE PERCUT 07/10/2021 femoral FAMILY HISTORY Problem Relation Age of Onset - Diabetes Mother - other (Other) Mother old age, natural causes Social History Tobacco Use - Smoking status: Former Smoker Packs/day: 1.50 Years: 50.00 Pack years: 75.00 Types: Cigarettes Quit date: 06/24/2011 Years since quittin.1 - Smokeless tobacco: Former User Quit date: 06/24/2012 Substance Use Topics - Alcohol use: No - Drug use: No ALLERGIES Allergen Reactions - Lisinopril Cough Medications: Current Outpatient Medications Medication Sig Dispense Refill - doxycycline (VIBRA-TABS) 100 mg tablet Take 1 tablet by mouth twice daily for 10 days. 20 tablet 0 - dilTIAZem (CARDIZEM) 120 mg tablet Take 1 tablet by mouth twice daily. - aspirin 81 mg chewable tablet Take 1 tablet by mouth once daily. 30 tablet 2 - tamsulosin (FLOMAX) 0.4 mg Take 2 capsules by mouth daily at bedtime. 180 capsule 3 - finasteride (PROSCAR) 5 mg tablet Take 1 tablet by mouth once daily. 90 tablet 3 - metoprolol tartrate, short acting, (LOPRESSOR) 50 mg tablet Take 1.5 tablets by mouth twice daily. 0 - Docusate Sodium 250 mg capsule Take 250 mg by mouth twice daily. - furosemide (LASIX) 40 mg tablet Take 40 mg by mouth twice daily. - apixaban (ELIQU (more content not included)...[facility] 08-22-2021 History of Past illness Narrative* Problem Noted Date Resolved Date Dependence on continuous supplemental oxygen 06/202109/16/2021 Venous stasis ulcer of calf without varicose vei ns 04/28/2021 09/16/2021 Adenopathy, hilar 04/13/2016 01/27/2018 Overview: Right side. Dr. Bran Russell Adenoma of left adrenal gland 04/13/2016 Urinary retention 07/25/2012 01/27/2018 Tobacco use 03/18/2012 04/13/2016 Benign neoplasm of rectum and anal canal 012 04/13/2016 Irregular heart rate 09/30/2011 04/13/2016 Encounter for preprocedural cardiovascular exami [facility] 06/16/2011 09/16/2021 ERECTILE DYSFUNCTION 09/09/2006 04/13/2016 Other and unspecified hyperlipidemia 02/24/2006 04/13/2016 Personal history of tobacco use, presenting hazards to health 08/26/2005 04/13/2016 OVERWEIGHT 05/28/2005 04/08/2015 Unspecified disorder of prostate 05/28/2005 04/13/2016 Elevated prostate specific antigen (PSA) 09/16/2021 documented as of this encounter (statuses as of 12/17/2021) [facility] [place] History of Past illness Narrative* Problem Noted Date Resolved Date Dependence on continuous supplemental oxygen 06/202109/16/2021 Venous stasis ulcer of calf without varicose vei ns 04/28/2021 09/16/2021 Adenopathy, hilar 04/13/2016 01/27/2018 Overview: Right side. Dr. Bran Russell Adenoma of left adrenal gland 04/13/2016 Urinary retention 07/25/2012 01/27/2018 Tobacco use 03/18/2012 04/13/2016 Benign neoplasm of rectum and anal canal 012 04/13/2016 Irregular heart rate 09/30/2011 04/13/2016 Encounter for [place]procedural [place] exam[place] 06/16/2011 09/16/2021 ERECTILE DYSFUNCTION 09/09/2006 04/13/2016 Other and unspecified hyperlipidemia 02/24/2006 04/13/2016 Personal history of tobacco use, presenting hazards to health 08/26/2005 04/13/2016 OVERWEIGHT 05/28/2005 04/08/2015 Unspecified disorder of prostate 05/28/2005 04/13/2016 Elevated prostate specific antigen (PSA) 09/16/2021 documented as of this encounter (statuses as of 12/31/2021) [facility] [place] History of Past illness Narrative* Problem Noted Date Resolved Date Dependence on continuous supplemental oxygen 06/202109/16/2021 Venous stasis ulcer of calf without varicose vei ns 04/28/2021 09/16/2021 Adenopathy, hilar 04/13/2016 01/27/2018 Overview: Right side. Dr. Bran Russell Adenoma of left adrenal gland 04/13/2016 Urinary retention 07/25/2012 01/27/2018 Tobacco use 03/18/2012 04/13/2016 Benign neoplasm of rectum and anal canal 012 04/13/2016 Irregular heart rate 09/30/2011 04/13/2016 Encounter for preprocedural cardiovascular exami [facility] 06/16/2011 09/16/2021 ERECTILE DYSFUNCTION 09/09/2006 04/13/2016 Other and unspecified hyperlipidemia 02/24/2006 04/13/2016 Personal history of tobacco use, presenting hazards to health 08/26/2005 04/13/2016 OVERWEIGHT 05/28/2005 04/08/2015 Unspecified disorder of prostate 05/28/2005 04/13/2016 Elevated prostate specific antigen (PSA) 09/16/2021 documented as of this encounter (statuses as of 01/01/2022) [facility] [place] History of Past illness Narrative* Problem Noted Date Resolved Date Dependence on continuous supplemental oxygen 06/202109/16/2021 Venous stasis ulcer of calf without varicose vei ns 04/28/2021 09/16/2021 Adenopathy, hilar 04/13/2016 01/27/2018 Overview: Right side. Dr. Bran Russell Adenoma of left adrenal gland 04/13/2016 Urinary retention 07/25/2012 01/27/2018 Tobacco use 03/18/2012 04/13/2016 Benign neoplasm of rectum and anal canal 012 04/13/2016 Irregular heart rate 09/30/2011 04/13/2016 Encounter for preprocedural cardiovascular exami [facility] 06/16/2011 09/16/2021 ERECTILE DYSFUNCTION 09/09/2006 04/13/2016 Other and unspecified hyperlipidemia 02/24/2006 04/13/2016 Personal history of tobacco use, presenting hazards to health 08/26/2005 04/13/2016 OVERWEIGHT 05/28/2005 04/08/2015 Unspecified disorder of prostate 05/28/2005 04/13/2016 Elevated prostate specific antigen (PSA) 09/16/2021 documented as of this encounter (statuses as of 01/13/2022) [facility] [place] History of Past illness Narrative* Problem Noted Date Resolved Date Dependence on continuous supplemental oxygen 06/202109/16/2021 Venous stasis ulcer of calf without varicose vei ns 04/28/2021 09/16/2021 Adenopathy, hilar 04/13/2016 01/27/2018 Overview: Right side. Dr. Bran Russell Adenoma of left adrenal gland 04/13/2016 Urinary retention 07/25/2012 01/27/2018 Tobacco use 03/18/2012 04/13/2016 Benign neoplasm of rectum and anal canal 012 04/13/2016 Irregular heart rate 09/30/2011 04/13/2016 Encounter for preprocedural cardiovascular exami [facility] 06/16/2011 09/16/2021 ERECTILE DYSFUNCTION 09/09/2006 04/13/2016 Other and unspecified hyperlipidemia 02/24/2006 04/13/2016 Personal history of tobacco use, presenting hazards to health 08/26/2005 04/13/2016 OVERWEIGHT 05/28/2005 04/08/2015 Unspecified disorder of prostate 05/28/2005 04/13/2016 Elevated prostate specific antigen (PSA) 09/16/2021 documented as of this encounter (statuses as of 01/23/2022) [facility] [place] History of Past illness Narrative* Problem Noted Date Resolved Date Dependence on continuous supplemental oxygen 06/202109/16/2021 Venous stasis ulcer of calf without varicose vei ns 04/28/2021 09/16/2021 Adenopathy, hilar 04/13/2016 01/27/2018 Overview: Right side. Dr. Bran Russell Adenoma of left adrenal gland 04/13/2016 Urinary retention 07/25/2012 01/27/2018 Tobacco use 03/18/2012 04/13/2016 Benign neoplasm of rectum and anal canal 012 04/13/2016 Irregular heart rate 09/30/2011 04/13/2016 Encounter for preprocedural cardiovascular exami [facility] 06/16/2011 09/16/2021 ERECTILE DYSFUNCTION 09/09/2006 04/13/2016 Other and unspecified hyperlipidemia 02/24/2006 04/13/2016 Personal history of tobacco use, presenting hazards to health 08/26/2005 04/13/2016 OVERWEIGHT 05/28/2005 04/08/2015 Unspecified disorder of prostate 05/28/2005 04/13/2016 Elevated prostate specific antigen (PSA) 09/16/2021 documented as of this encounter (statuses as of 01/26/2022) [facility] [place] History of Past illness Narrative* Problem Noted Date Resolved Date Dependence on continuous supplemental oxygen 06/202109/16/2021 Venous stasis ulcer of calf without varicose vei ns 04/28/2021 09/16/2021 Adenopathy, hilar 04/13/2016 01/27/2018 Overview: Right side. Dr. Bran Russell Adenoma of left adrenal gland 04/13/2016 Urinary retention 07/25/2012 01/27/2018 Tobacco use 03/18/2012 04/13/2016 Benign neoplasm of rectum and anal canal 012 04/13/2016 Irregular heart rate 09/30/2011 04/13/2016 Encounter for preprocedural cardiovascular exami [facility] 06/16/2011 09/16/2021 ERECTILE DYSFUNCTION 09/09/2006 04/13/2016 Other and unspecified hyperlipidemia 02/24/2006 04/13/2016 Personal history of tobacco use, presenting hazards to health 08/26/2005 04/13/2016 OVERWEIGHT 05/28/2005 04/08/2015 Unspecified disorder of prostate 05/28/2005 04/13/2016 Elevated prostate specific antigen (PSA) 09/16/2021 documented as of this encounter (statuses as of 02/10/2022) [facility] [place] History of Past illness Narrative* Problem Noted Date Resolved Date Dependence on continuous supplemental oxygen 06/202109/16/2021 Venous stasis ulcer of calf without varicose vei ns 04/28/2021 09/16/2021 Adenopathy, hilar 04/13/2016 01/27/2018 Overview: Right side. Dr. Bran Russell Adenoma of left adrenal gland 04/13/2016 Urinary retention 07/25/2012 01/27/2018 Tobacco use 03/18/2012 04/13/2016 Benign neoplasm of rectum and anal canal 012 04/13/2016 Irregular heart rate 09/30/2011 04/13/2016 Encounter for preprocedural cardiovascular exami [facility] 06/16/2011 09/16/2021 ERECTILE DYSFUNCTION 09/09/2006 04/13/2016 Other and unspecified hyperlipidemia 02/24/2006 04/13/2016 Personal history of tobacco use, presenting hazards to health 08/26/2005 04/13/2016 OVERWEIGHT 05/28/2005 04/08/2015 Unspecified disorder of prostate 05/28/2005 04/13/2016 Elevated prostate specific antigen (PSA) 09/16/2021 documented as of this encounter (statuses as of 02/17/2022) [facility] [place] History of Past illness Narrative* Problem Noted Date Resolved Date Dependence on continuous supplemental oxygen 06/202109/16/2021 Venous stasis ulcer of calf without varicose vei ns 04/28/2021 09/16/2021 Adenopathy, hilar 04/13/2016 01/27/2018 Overview: Right side. Dr. Bran Russell Adenoma of left adrenal gland 04/13/2016 Urinary retention 07/25/2012 01/27/2018 Tobacco use 03/18/2012 04/13/2016 Benign neoplasm of rectum and anal canal 012 04/13/2016 Irregular heart rate 09/30/2011 04/13/2016 Encounter for preprocedural cardiovascular exami [facility] 06/16/2011 09/16/2021 ERECTILE DYSFUNCTION 09/09/2006 04/13/2016 Other and unspecified hyperlipidemia 02/24/2006 04/13/2016 Personal history of tobacco use, presenting hazards to health 08/26/2005 04/13/2016 OVERWEIGHT 05/28/2005 04/08/2015 Unspecified disorder of prostate 05/28/2005 04/13/2016 Elevated prostate specific antigen (PSA) 09/16/2021 documented as of this encounter (statuses as of 02/25/2022) [facility] [place] History of Past illness Narrative* Problem Noted Date Resolved Date Dependence on continuous supplemental oxygen 06/202109/16/2021 Obesity (BMI 35.0-39.9 without comorbidity) 11/0 12/202003/13/2022 Venous stasis ulcer of calf without varicose vei ns 04/28/2021 09/16/2021 Adenopathy, hilar 04/13/2016 01/27/2018 Overview: Right side. Dr. Bran Russell Adenoma of left adrenal gland 04/13/2016 Urinary retention 07/25/2012 01/27/2018 Tobacco use 03/18/2012 04/13/2016 Benign neoplasm of rectum and anal canal 012 04/13/2016 Irregular heart rate 09/30/2011 04/13/2016 Encounter for preprocedural cardiovascular exami [facility] 06/16/2011 09/16/2021 ERECTILE DYSFUNCTION 09/09/2006 04/13/2016 Other and unspecified hyperlipidemia 02/24/2006 04/13/2016 Personal history of tobacco use, presenting hazards to health 08/26/2005 04/13/2016 OVERWEIGHT 05/28/2005 04/08/2015 Unspecified disorder of prostate 05/28/2005 04/13/2016 Elevated prostate specific antigen (PSA) 09/16/2021 documented as of this encounter (statuses as of 03/13/2022) [facility] History of Past illness Narrative* Problem Noted Date Resolved Date Dependence on continuous supplemental oxygen 06/202109/16/2021 Obesity (BMI 35.0-39.9 without comorbidity) 12/202003/13/2022 Adenopathy, hilar 04/13/2016 01/27/2018 Overview: Right side. Dr. Bran Russell Adenoma of left adrenal gland 04/13/2016 Urinary retention 07/25/2012 01/27/2018 Tobacco use 03/18/2012 04/13/2016 Benign neoplasm of rectum and anal canal 012 04/13/2016 Irregular heart rate 09/30/2011 04/13/2016 Encounter for preprocedural cardiovascular exami [facility] 06/16/2011 09/16/2021 ERECTILE DYSFUNCTION 09/09/2006 04/13/2016 Other and unspecified hyperlipidemia 02/24/2006 04/13/2016 Personal history of tobacco use, presenting hazards to health 08/26/2005 04/13/2016 OVERWEIGHT 05/28/2005 04/08/2015 Unspecified disorder of prostate 05/28/2005 04/13/2016 Elevated prostate specific antigen (PSA) 09/16/2021 documented as of this encounter (statuses as of 03/18/2022) [facility] History of Past illness Narrative* Problem Noted Date Resolved Date Dependence on continuous supplemental oxygen 06/202109/16/2021 Obesity (BMI 35.0-39.9 without comorbidity) 12/202003/13/2022 Adenopathy, hilar 04/13/2016 01/27/2018 Overview: Right side. Dr. Bran Russell Adenoma of left adrenal gland 04/13/2016 Urinary retention 07/25/2012 01/27/2018 Tobacco use 03/18/2012 04/13/2016 Benign neoplasm of rectum and anal canal 012 04/13/2016 Irregular heart rate 09/30/2011 04/13/2016 Encounter for preprocedural cardiovascular exam[facility] 06/16/2011 09/16/2021 ERECTILE DYSFUNCTION 09/09/2006 04/13/2016 Other and unspecified hyperlipidemia 02/24/2006 04/13/2016 Personal history of tobacco use, presenting hazards to health 08/26/2005 04/13/2016 OVERWEIGHT 05/28/2005 04/08/2015 Unspecified disorder of prostate 05/28/2005 04/13/2016 Elevated prostate specific antigen (PSA) 09/16/2021 documented as of this encounter (statuses as of 03/18/2022) [facility] History of Past illness Narrative* Problem Noted Date Resolved Date Dependence on continuous supplemental oxygen 06/202109/16/2021 Obesity (BMI 35.0-39.9 without comorbidity) 12/202003/13/2022 Adenopathy, hilar 04/13/2016 01/27/2018 Overview: Right side. Dr. Bran Russell Adenoma of left adrenal gland 04/13/2016 Urinary retention 07/25/2012 01/27/2018 Tobacco use 03/18/2012 04/13/2016 Benign neoplasm of rectum and anal canal 012 04/13/2016 Irregular heart rate 09/30/2011 04/13/2016 Encounter for preprocedural cardiovascular exami [facility] 06/16/2011 09/16/2021 ERECTILE DYSFUNCTION 09/09/2006 04/13/2016 Other and unspecified hyperlipidemia 02/24/2006 04/13/2016 Personal history of tobacco use, presenting hazards to health 08/26/2005 04/13/2016 OVERWEIGHT 05/28/2005 04/08/2015 Unspecified disorder of prostate 05/28/2005 04/13/2016 Elevated prostate specific antigen (PSA) 09/16/2021 documented as of this encounter (statuses as of 03/23/2022) [facility]12-10-2021 History of Past illness Narrative* Problem Noted Date Resolved Date Dependence on continuous supplemental oxygen 06/202109/16/2021 Obesity (BMI 35.0-39.9 without comorbidity) 12/202003/13/2022 Adenopathy, hilar 04/13/2016 01/27/2018 Overview: Right side. Dr. Bran Russell Adenoma of left adrenal gland 04/13/2016 Urinary retention 07/25/2012 01/27/2018 Tobacco use 03/18/2012 04/13/2016 Benign neoplasm of rectum and anal canal 012 04/13/2016 Irregular heart rate 09/30/2011 04/13/2016 Encounter for preprocedural cardiovascular exami [facility] 06/16/2011 09/16/2021 ERECTILE DYSFUNCTION 09/09/2006 04/13/2016 Other and unspecified hyperlipidemia 02/24/2006 04/13/2016 Personal history of tobacco use, presenting hazards to health 08/26/2005 04/13/2016 OVERWEIGHT 05/28/2005 04/08/2015 Unspecified disorder of prostate 05/28/2005 04/13/2016 Elevated prostate specific antigen (PSA) 09/16/2021 documented as of this encounter (statuses as of 04/02/2022) [facility]12-10-2021 History of Past illness Narrative* Problem Noted Date Resolved Date Dependence on continuous supplemental oxygen 06/202109/16/2021 Obesity (BMI 35.0-39.9 without comorbidity) 12/202003/13/2022 Adenopathy, hilar 04/13/2016 01/27/2018 Overview: Right side. Dr. Bran Russell Adenoma of left adrenal gland 04/13/2016 Urinary retention 07/25/2012 01/27/2018 Tobacco use 03/18/2012 04/13/2016 Benign neoplasm of rectum and anal canal 012 04/13/2016 Irregular heart rate 09/30/2011 04/13/2016 Encounter for preprocedural cardiovascular exami [facility] 06/16/2011 09/16/2021 ERECTILE DYSFUNCTION 09/09/2006 04/13/2016 Other and unspecified hyperlipidemia 02/24/2006 04/13/2016 Personal history of tobacco use, presenting hazards to health 08/26/2005 04/13/2016 OVERWEIGHT 05/28/2005 04/08/2015 Unspecified disorder of prostate 05/28/2005 04/13/2016 Elevated prostate specific antigen (PSA) 09/16/2021 documented as of this encounter (statuses as of 04/20/2022) [facility]12-10-2021 History of Past illness Narrative* Problem Noted Date Resolved Date Dependence on continuous supplemental oxygen 06/202109/16/2021 Obesity (BMI 35.0-39.9 without comorbidity) 12/202003/13/2022 Adenopathy, hilar 04/13/2016 01/27/2018 Overview: Right side. Dr. Bran Russell Adenoma of left adrenal gland 04/13/2016 Urinary retention 07/25/2012 01/27/2018 Tobacco use 03/18/2012 04/13/2016 Benign neoplasm of rectum and anal canal 012 04/13/2016 Irregular heart rate 09/30/2011 04/13/2016 Encounter for preprocedural cardiovascular exami [facility] 06/16/2011 09/16/2021 ERECTILE DYSFUNCTION 09/09/2006 04/13/2016 Other and unspecified hyperlipidemia 02/24/2006 04/13/2016 Personal history of tobacco use, presenting hazards to health 08/26/2005 04/13/2016 OVERWEIGHT 05/28/2005 04/08/2015 Unspecified disorder of prostate 05/28/2005 04/13/2016 Elevated prostate specific antigen (PSA) 09/16/2021 documented as of this encounter (statuses as of 05/08/2022) [facility]12-10-2021 History of Past illness Narrative* Problem Noted Date Resolved Date Dependence on continuous supplemental oxygen 06/202109/16/2021 Obesity (BMI 35.0-39.9 without comorbidity) 12/202003/13/2022 Adenopathy, hilar 04/13/2016 01/27/2018 Overview: Right side. Dr. Bran Russell Adenoma of left adrenal gland 04/13/2016 Urinary retention 07/25/2012 01/27/2018 Tobacco use 03/18/2012 04/13/2016 Benign neoplasm of rectum and anal canal 012 04/13/2016 Irregular heart rate 09/30/2011 04/13/2016 Encounter for preprocedural cardiovascular exami [facility] 06/16/2011 09/16/2021 ERECTILE DYSFUNCTION 09/09/2006 04/13/2016 Other and unspecified hyperlipidemia 02/24/2006 04/13/2016 Personal history of tobacco use, presenting hazards to health 08/26/2005 04/13/2016 OVERWEIGHT 05/28/2005 04/08/2015 Unspecified disorder of prostate 05/28/2005 04/13/2016 Elevated prostate specific antigen (PSA) 09/16/2021 documented as of this encounter (statuses as of 06/17/2022) [facility]12-10-2021 History of Past illness Narrative* Problem Noted Date Resolved Date Dependence on continuous supplemental oxygen 06/202109/16/2021 Adenopathy, hilar 04/13/2016 01/27/2018 Overview: Right side. Dr. Bran Russell Adenoma of left adrenal gland 04/13/2016 Urinary retention 07/25/2012 01/27/2018 Tobacco use 03/18/2012 04/13/2016 Benign neoplasm of rectum and anal canal 012 04/13/2016 Irregular heart rate 09/30/2011 04/13/2016 Encounter for preprocedural cardiovascular exami [facility] 06/16/2011 09/16/2021 ERECTILE DYSFUNCTION 09/09/2006 04/13/2016 Other and unspecified hyperlipidemia 02/24/2006 04/13/2016 Personal history of tobacco use, presenting hazards to health 08/26/2005 04/13/2016 OVERWEIGHT 05/28/2005 04/08/2015 Unspecified disorder of prostate 05/28/2005 04/13/2016 Elevated prostate specific antigen (PSA) 09/16/2021 documented as of this encounter (statuses as of 06/30/2022) [facility]12-10-2021 History of Past illness Narrative* Problem Noted Date Resolved Date Dependence on continuous supplemental oxygen 06/202109/16/2021 Adenopathy, hilar 04/13/2016 01/27/2018 Overview: Right side. Dr. Bran Russell Adenoma of left adrenal gland 04/13/2016 Urinary retention 07/25/2012 01/27/2018 Tobacco use 03/18/2012 04/13/2016 Benign neoplasm of rectum and anal canal 012 04/13/2016 Irregular heart rate 09/30/2011 04/13/2016 Encounter for preprocedural cardiovascular exami [facility] 06/16/2011 09/16/2021 ERECTILE DYSFUNCTION 09/09/2006 04/13/2016 Other and unspecified hyperlipidemia 02/24/2006 04/13/2016 Personal history of tobacco use, presenting hazards to health 08/26/2005 04/13/2016 OVERWEIGHT 05/28/2005 04/08/2015 Unspecified disorder of prostate 05/28/2005 04/13/2016 Elevated prostate specific antigen (PSA) 09/16/2021 documented as of this encounter (statuses as of 07/17/2022) [facility]12-10-2021 History of Past illness Narrative* Problem Noted Date Resolved Date Dependence on continuous supplemental oxygen 06/202109/16/2021 Adenopathy, hilar 04/13/2016 01/27/2018 Overview: Right side. Dr. Bran Russell Adenoma of left adrenal gland 04/13/2016 Urinary retention 07/25/2012 01/27/2018 Tobacco use 03/18/2012 04/13/2016 Benign neoplasm of rectum and anal canal 012 04/13/2016 Irregular heart rate 09/30/2011 04/13/2016 Encounter for preprocedural cardiovascular exami [facility] 06/16/2011 09/16/2021 ERECTILE DYSFUNCTION 09/09/2006 04/13/2016 Other and unspecified hyperlipidemia 02/24/2006 04/13/2016 Personal history of tobacco use, presenting hazards to health 08/26/2005 04/13/2016 OVERWEIGHT 05/28/2005 04/08/2015 Unspecified disorder of prostate 05/28/2005 04/13/2016 Elevated prostate specific antigen (PSA) 09/16/2021 documented as of this encounter (statuses as of 2022) [facility]12-10-2021 History of Past illness Narrative* Problem Noted Date Resolved Date Dependence on continuous supplemental oxygen 06/202109/16/2021 Adenopathy, hilar 04/13/2016 01/27/2018 Overview: Right side. Dr. Bran Russell Adenoma of left adrenal gland 04/13/2016 Urinary retention 07/25/2012 01/27/2018 Tobacco use 03/18/2012 04/13/2016 Benign neoplasm of rectum and anal canal 012 04/13/2016 Irregular heart rate 09/30/2011 04/13/2016 Encounter for preprocedural cardiovascular exami [facility] 06/16/2011 09/16/2021 ERECTILE DYSFUNCTION 09/09/2006 04/13/2016 Other and unspecified hyperlipidemia 02/24/2006 04/13/2016 Personal history of tobacco use, presenting hazards to health 08/26/2005 04/13/2016 OVERWEIGHT 05/28/2005 04/08/2015 Unspecified disorder of prostate 05/28/2005 04/13/2016 Elevated prostate specific antigen (PSA) 09/16/2021 documented as of this encounter (statuses as of 09/21/2022) [facility]-10-2021 History of Past illness Narrative* Problem Noted Date Resolved Date Dependence on continuous supplemental oxygen 06/202109/16/2021 Adenopathy, hilar 04/13/2016 01/27/2018 Overview: Right side. Dr. Bran Russell Adenoma of left adrenal gland 04/13/2016 Urinary retention 07/25/2012 01/27/2018 Tobacco use 03/18/2012 04/13/2016 Benign neoplasm of rectum and anal canal 012 04/13/2016 Irregular heart rate 09/30/2011 04/13/2016 Encounter for preprocedural cardiovascular exami [facility] 06/16/2011 09/16/2021 ERECTILE DYSFUNCTION 09/09/2006 04/13/2016 Other and unspecified hyperlipidemia 02/24/2006 04/13/2016 Personal history of tobacco use, presenting hazards to health 08/26/2005 04/13/2016 OVERWEIGHT 05/28/2005 04/08/2015 Unspecified disorder of prostate 05/28/2005 04/13/2016 Elevated prostate specific antigen (PSA) 09/16/2021 documented as of this encounter (statuses as of 10/13/2022) [facility]-10-2021 History of Past illness Narrative* Problem Noted Date Resolved Date Dependence on continuous supplemental oxygen 06/202109/16/2021 Adenopathy, hilar 04/13/2016 01/27/2018 Overview: Right side. Dr. Bran Russell Adenoma of left adrenal gland 04/13/2016 Urinary retention 07/25/2012 01/27/2018 Tobacco use 03/18/2012 04/13/2016 Benign neoplasm of rectum and anal canal 12/13/ 012 04/13/2016 Irregular heart rate 09/30/2011 04/13/2016 Encounter for preprocedural cardiovascular exami [facility] 06/16/2011 09/16/2021 ERECTILE DYSFUNCTION 09/09/2006 04/13/2016 Other and unspecified hyperlipidemia 02/24/2006 04/13/2016 Personal history of tobacco use, presenting hazards to health 08/26/2005 04/13/2016 OVERWEIGHT 05/28/2005 04/08/2015 Unspecified disorder of prostate 05/28/2005 04/13/2016 Elevated prostate specific antigen (PSA) 09/16/2021 documented as of this encounter (statuses as of 10/23/2022) [facility]12-10-2021 History of Past illness Narrative* Problem Noted Date Resolved Date Dependence on continuous supplemental oxygen 06/202109/16/2021 Adenopathy, hilar 04/13/2016 01/27/2018 Overview: Right side. Dr. Bran Russell Adenoma of left adrenal gland 04/13/2016 Urinary retention 07/25/2012 01/27/2018 Tobacco use 03/18/2012 04/13/2016 Benign neoplasm of rectum and anal canal 012 04/13/2016 Irregular heart rate 09/30/2011 04/13/2016 Encounter for preprocedural cardiovascular exami [facility] 06/16/2011 09/16/2021 ERECTILE DYSFUNCTION 09/09/2006 04/13/2016 Other and unspecified hyperlipidemia 02/24/2006 04/13/2016 Personal history of tobacco use, presenting hazards to health 08/26/2005 04/13/2016 OVERWEIGHT 05/28/2005 04/08/2015 Unspecified disorder of prostate 05/28/2005 04/13/2016 Elevated prostate specific antigen (PSA) 09/16/2021 documented as of this encounter (statuses as of 11/23/2022) [facility]12-10-2021 History of Past illness Narrative* Problem Noted Date Resolved Date Dependence on continuous supplemental oxygen 06/202109/16/2021 Adenopathy, hilar 04/13/2016 01/27/2018 Overview: Right side. Dr. Bran Russell Adenoma of left adrenal gland 04/13/2016 Urinary retention 07/25/2012 01/27/2018 Tobacco use 03/18/2012 04/13/2016 Benign neoplasm of rectum and anal canal 012 04/13/2016 Irregular heart rate 09/30/2011 04/13/2016 Encounter for preprocedural cardiovascular exami [facility] 06/16/2011 09/16/2021 ERECTILE DYSFUNCTION 09/09/2006 04/13/2016 Other and unspecified hyperlipidemia 02/24/2006 04/13/2016 Personal history of tobacco use, presenting hazards to health 08/26/2005 04/13/2016 OVERWEIGHT 05/28/2005 04/08/2015 Unspecified disorder of prostate 05/28/2005 04/13/2016 Elevated prostate specific antigen (PSA) 09/16/2021 documented as of this encounter (statuses as of 01/14/2023) [facility]-2021 History of Past illness Narrative* Problem Noted Date Resolved Date Dependence on continuous supplemental oxygen 06/202109/16/2021 Adenopathy, hilar 04/13/2016 01/27/2018 Overview: Right side. Dr. Bran Russell Adenoma of left adrenal gland 04/13/2016 Urinary retention 07/25/2012 01/27/2018 Tobacco use 03/18/2012 04/13/2016 Benign neoplasm of rectum and anal canal 012 04/13/2016 Irregular heart rate 09/30/2011 04/13/2016 [facility] 06/16/2011 09/16/2021 ERECTILE DYSFUNCTION 09/09/2006 04/13/2016 Other and unspecified hyperlipidemia 02/24/2006 04/13/2016 Personal history of tobacco use, presenting hazards to health 08/26/2005 04/13/2016 OVERWEIGHT 05/28/2005 04/08/2015 Unspecified disorder of prostate 05/28/2005 04/13/2016 Elevated prostate specific antigen (PSA) 09/16/2021 documented as of this encounter (statuses as of 02/12/2023) [facility]-10[facility]2021 History of Past illness Narrative* Problem Noted Date Diagnosed Date Resolved Date Dependence on continuous supplemental oxygen 09/16/2021 Positive colorectal cancer s creening using Cologuard test 05/02/2020 03/22/2023 Adenopathy, hilar 04/13/2016 01/27/2018 Overview: Right side. Dr. Bran Russell Adenoma of left adrenal gland 04/13/2016 01/27/2018 Urinary retention 07/25/2012 01/27/2018 Chronic sinusitis 03/18/2012 03/22/2023 Tobacco use 03/18/2012 04/13/2016 Benign neoplasm of rectum and anal canal 12/14/2011 04/13/2016 Irregular heart rate 09/30/2011 016 Encounter for preprocedural cardiovascular examination 06/16/2011 09/16/2021 ERECTILE DYSFUNCTION 09/09/2006 016 Other and unspecified hyperlipidemia 02/24/2006 04/13/2016 Personal history of tobacco use, presenting hazards to health 08/26/2005 04/13/2016 OVERWEIGHT 05/28/2005 04/08/2015 Unspecified disorder of prostate 05/28/2005 04/13/2016 Elevated prostate specific antigen (PSA) 09/16/2021 documented as of this encounter (statuses as of 03/23/2023) [facility]2021 History of Past illness Narrative* Problem Noted Date Diagnosed Date Resolved Date Dependence on continuous supplemental oxygen 1 09/16/2021 Positive colorectal cancer s creening using Cologuard test 05/02/2020 03/22/2023 Adenopathy, hilar 04/13/2016 01/27/2018 Overview: Right side. Dr. Bran Russell Adenoma of left adrenal gland 04/13/2016 01/27/2018 Urinary retention 07/25/2012 01/27/2018 Chronic sinusitis 03/18/2012 03/22/2023 Tobacco use 03/18/2012 04/13/2016 Benign neoplasm of rectum and anal canal 12/14/2011 04/13/2016 Irregular heart rate 09/30/2011 016 Encounter for preprocedural cardiovascular examination 06/16/2011 09/16/2021 ERECTILE DYSFUNCTION 09/09/2006 016 Other and unspecified hyperlipidemia 02/24/2006 04/13/2016 Personal history of tobacco use, presenting hazards to health 08/26/2005 04/13/2016 OVERWEIGHT 05/28/2005 04/08/2015 Unspecified disorder of prostate 05/28/2005 04/13/2016 Elevated prostate specific antigen (PSA) 09/16/2021 documented as of this encounter (statuses as of 05/25/2023) [facility]2021 History of Past illness Narrative* Problem Noted Date Diagnosed Date Resolved Date Dependence on continuous supplemental oxygen 1 09/16/2021 Positive colorectal cancer s creening using Cologuard test 05/02/2020 03/22/2023 Adenopathy, hilar 04/13/2016 01/27/2018 Overview: Right side. Dr. Bran Russell Adenoma of left adrenal gland 04/13/2016 01/27/2018 Urinary retention 07/25/2012 01/27/2018 Chronic sinusitis 03/18/2012 03/22/2023 Tobacco use 03/18/2012 04/13/2016 Benign neoplasm of rectum and anal canal 12/14/2011 04/13/2016 Irregular heart rate 09/30/2011 016 Encounter for preprocedural cardiovascular examination 06/16/2011 09/16/2021 ERECTILE DYSFUNCTION 09/09/2006 016 Other and unspecified hyperlipidemia 02/24/2006 04/13/2016 Personal history of tobacco use, presenting hazards to health 08/26/2005 04/13/2016 OVERWEIGHT 05/28/2005 04/08/2015 Unspecified disorder of prostate 05/28/2005 04/13/2016 Elevated prostate specific antigen (PSA) 09/16/2021 documented as of this encounter (statuses as of 08/12/2023) [facility]2021 History of Past illness Narrative* Problem Noted Date Diagnosed Date Resolved Date Dependence on continuous supplemental oxygen 09/16/2021 Positive colorectal cancer s creening using Cologuard test 05/02/2020 03/22/2023 Adenopathy, hilar 04/13/2016 01/27/2018 Overview: Right side. Dr. Bran Russell Adenoma of left adrenal gland 04/13/2016 01/27/2018 Urinary retention 07/25/2012 01/27/2018 Chronic sinusitis 03/18/2012 03/22/2023 Tobacco use 03/18/2012 04/13/2016 Benign neoplasm of rectum and anal canal 12/14/2011 04/13/2016 Irregular heart rate 09/30/2011 016 Encounter for preprocedural cardiovascular examination 06/16/2011 09/16/2021 ERECTILE DYSFUNCTION 09/09/2006 016 Other and unspecified hyperlipidemia 02/24/2006 04/13/2016 Personal history of tobacco use, presenting hazards to health 08/26/2005 04/13/2016 OVERWEIGHT 05/28/2005 04/08/2015 Unspecified disorder of prostate 05/28/2005 04/13/2016 Elevated prostate specific antigen (PSA) 09/16/2021 documented as of this encounter (statuses as of 08/17/2023) [facility]-04-2021 NoteHNO ID: [id number] Author: Tamika Dutta APRN.SALES OPERATIONS DIRECTOR Service: ? Author Type: Nurse Practitioner Type: Progress Notes Filed: 07/17/2021 2:12 PM Note Text: INTERVENTIONAL CARDIOLOGY SERVICE 1 Week Post-TAVR Follow-Up PRIMARY CARE PHYSICIAN: Tomy Hernandez [address] [place] [address] Chief Complaint Patient presents with: Cardiology Follow Up : 1 week s/p TAVR HISTORY OF PRESENT ILLNESS: Mr. Degroot is a 75 year old male known to Dr. Salmeron with a PMH significant for HTN, HLD, Former Smoker, Moderate CAD, Chronic A. Fib (on Eliquis), Previous TIA in 2019, DVT/PE, NOAM, COPD, Pulmonary HTN, COVID infection 10/03/2020, Home O2 s/p COVID (only 2L NC at night now), and paradoxical low flow, low gradient severe aortic valve stenosis who underwent a transcatheter aortic valve replacement with 26 mm Duenas Colby S3 Ultra THV with Dr. Liu on 07/10/2021 . While in the hospital, the patient did not have any complications. The patient was discharged on 07/11/2021 and presents today for a 1 Week post-TAVR follow up visit. Today, he denies chest pain or chest pressure. He states he has been able to walk to the mailbox and around the house this past week without shortness of breath or fatigue. He denies any palpitations, dizziness, lightheadedness, syncope, or lower extremity edema. Overall, he is feeling better since his TAVR but has not exerted himself much over the past week during his recovery. His main complaint is chronic bilateral knee pain. Subjective Review of Systems Constitutional: Negative for chills, diaphoresis, fever, malaise/fatigue and weight loss. Respiratory: Negative for cough and shortness of breath. Cardiovascular: Negative for chest pain, palpitations, orthopnea, leg swelling and PND. Gastrointestinal: Negative for abdominal pain, heartburn, nausea and vomiting. Genitourinary: Negative for hematuria. Musculoskeletal: Positive for joint pain (Bilateral Knee Pain). Negative for falls and myalgias. Skin: Bruising on Arm and stomach Neurological: Negative for dizziness, tingling, loss of consciousness, weakness and headaches. Endo/Heme/Allergies: Does not bruise/bleed easily. Psychiatric/Behavioral: Negative for depression. PAST MEDICAL HISTORY Diagnosis Date - Acute respiratory failure with hypoxia (HCC) 10/03/2020 transferred to [facility] - Adenoma of left adrenal gland 04/13/2016 - Aortic stenosis, moderate 11/26/2020 - Bacteremia due to Escherichia coli 10/18/2020 UTI in LTAC - Benign neoplasm of colon - Benign neoplasm of rectum and anal canal - Bilateral pulmonary embolism (HCC) 10/04/2015 - Brain TIA 01/09/2019 left sided weakness - Centrilobular emphysema (HCC) 04/13/2016 Dr. Bran Russell, pulmonary - Chronic atrial fibrillation (HCC) 10/04/2015 Dr. Jeff Bowie[facility] - COVID-19 10/03/2020 - Elevated prostate specific antigen (PSA) - ERECTILE DYSFUNCTION 09/09/2006 - Hyperlipidemia 01/06/2016 - Hypertension 10/12/2013 - Personal history of tobacco use, presenting hazards to health 08/26/2005 - Pneumonia due to COVID-19 virus 10/03/2020 - Pure hypercholesterolemia - Tobacco use 03/18/2012 - Urinary retention 07/25/2012 PAST SURGICAL HISTORY Procedure Laterality Date - CATARACT EXTRACTION W/ INTRAOCULAR LENS IMPLANT HX Bilateral 01/2019 Right 2019. Left 2015. - COLONOS W/REM POLYP SNARE 06/16/2011 - LEFT HEART CATH,PERCUTANEOUS 05/06/2021 - PAST SURGICAL HISTORY OF 07/14/2012 closure of oroantral fistula (sinuses) - SIGMOIDOSCOPY FLEX DIAG 12/14/2011 Sigmoidoscopy, flexible - SIGMOIDS DIAG W/REM POLYP SNARE 07/23/2011 FAMILY HISTORY Problem Relation Age of Onset - Diabetes Mother - other (Other) Mother old age, natural causes Social History Tobacco Use - Smoking status: Former Smoker Packs/day: 1.50 Years: 50.00 Pack years: 75.00 Types: Cigarettes Quit date: 06/24/2011 Years since quittin.0 - Smokeless tobacco: Former User Quit date: 06/24/2012 Substance Use Topics - Alcohol use: No - Drug use: No ALLERGIES Allergen Reactions - Lisinopril Cough Medications: Current Outpatient Medications Medication Sig Dispense Refill - dilTIAZem (CARDIZEM) 120 mg tablet Take 1 tablet by mouth twice daily. - aspirin 81 mg chewable tablet Take 1 tablet by mouth once daily. 30 tablet 2 - ketoconazole (NIZORAL) 2 % cream Apply to affected area twice daily. 60 g 0 - tamsulosin (FLOMAX) 0.4 mg Take 2 capsules by mouth daily at bedtime. 180 capsule 3 - finasteride (PROSCAR) 5 mg tablet Take 1 tablet by mouth once daily. 90 tablet 3 - metoprolol tartrate, short acting, (LOPRESSOR) 50 mg tablet Take 1.5 tablets by mouth twice daily. 0 - potassium chloride ER (KLOR-CON M20) 20 mEq tablet Take 20 mEq by mouth twice daily. - Docusate Sodium 250 mg capsule Take 250 mg by mouth twice daily. - furosemide (LASIX) 4 (more content not included)...[facility]10-29-2021 NoteHNO ID: [id number] Author: Eldon Mayer MD Service: Cardiovascular Medicine Author Type: Resident Type: Progress Notes Filed: 07/11/2021 7:42 AM Note Text: Attestation signed by Remington Haji MD at 07/12/2021 2:04 PM Attending Note I evaluated the patient and personally participated in the diaz components. I agree with the resident's findings and plan as documented and have discussed the case and management of the patient's care with the resident. Patient doing well from a cardiac perspective with no acute events overnight. He has ambulated without difficulty, and has no evidence for bruising or bleeding or hematoma at the access site in the right groin. He states that he is feeling much better and has had no shortness of breath with ambulation which is different from his status at home. 2D echocardiogram pending, and will plan for discharge to home unless any alarming issues arise. Signature: Remington Haji MD Date: 07/11/2021 Time: 2:02 PM Cardiovascular Critical Care Progress Note SERVICE DATE: July 11, 2021 SERVICE TIME: 7:02 AM Admission Date: 07/10/2021 HPI: Mr. Javier Degroot is a 75-year-old male with PMH of: - Cardiac: CAD, Chronic Atrial Fibrillation on Eliquis, Hypertension, Hyperlipidemia, Aortic Valve Stenosis - Pulmonary: Pulmonary HTN, NOAM, COPD - Prior TIA in 2019 - Prior Tobacco Use - Prior DVT/PE - Recent COVID-19 Infection in 09/2020 requiring 2L Home O2 ? Patient presented to [facility] on 07/10 for elective transcatheter aortic valve replacement with Dr. Haji. Patient was admitted to the CVICU post-operatively for continued management and observation. Subjective Interval Events July 11, 2021: No acute events overnight. When seen this AM, Mr. Javier Degroot states that his doing well and has no new complaints. Patient endorses some pain in his right groin, near the access site of the TAVR, but states that it is mild and not worsening. There is no associated bleeding from the access site. Patient denies any chest pain, dyspnea, palpitations, fevers/chills, or N/V. Mr. Degroot hopes that he can complete his ECHO and be discharged later today. Data Reviewed: Vitals: Tmax: 36.1, HR in the 70s with BPs in the 120s/60s. Saturating >92% on 2L NC which is his baseline. Labs: BMP Reviewed: Power Hammer Operator: 0.97, Na: 141, K: 4.6, Bicarb: 25, Anion Gap: 7 CBC Reviewed: WBC: 11.83, Hgb: 13.0, Plt: 173 PT/INR: 11.8/1.1 Imaging: CXR (07/10): Mild cardiomegaly. Mild pulmonary vascular engorgement and mild interstitial prominence suggesting mild interstitial edema. CXR (07/11): Not yet read. Shows no acute abnormality. Meds: Apixaban 5mg BID, Clopidogrel 75mg q daily Cardizem 120mg BID, Metoprolol 75mg BID Finasteride 5mg, Lasix 40mg BID, Keflex 500mg BID Review of Systems Constitutional: Negative for chills, diaphoresis, fever and malaise/fatigue. HENT: Negative for congestion, hearing loss and sore throat. Eyes: Negative for blurred vision, double vision and photophobia. Respiratory: Negative for cough, hemoptysis, sputum production and shortness of breath. Cardiovascular: Negative for chest pain, palpitations, orthopnea and leg swelling. Gastrointestinal: Negative for abdominal pain, constipation, diarrhea, nausea and vomiting. Genitourinary: Negative for dysuria, frequency and urgency. Musculoskeletal: Positive for myalgias (pain in right groin, near access site). Negative for back pain. Neurological: Negative for dizziness, sensory change, loss of consciousness and headaches. Objective PAST MEDICAL HISTORY Diagnosis Date - Acute respiratory failure with hypoxia (HCC) 10/03/2020 transferred to [facility] - Adenoma of left adrenal gland 04/13/2016 - Aortic stenosis, moderate 11/26/2020 - Bacteremia due to Escherichia coli 10/18/2020 UTI in LTAC - Benign neoplasm of colon - Benign neoplasm of rectum and anal canal - Bilateral pulmonary embolism (HCC) 10/04/2015 - Brain TIA 01/09/2019 left sided weakness - Centrilobular emphysema (HCC) 04/13/2016 Dr. Bran Russell, pulmonary - Chronic atrial fibrillation (HCC) 10/04/2015 Dr. Jeff Bowie, [facility] - COVID-19 10/03/2020 - Elevated prostate specific antigen (PSA) - ERECTILE DYSFUNCTION 09/09/2006 - Hyperlipidemia 01/06/2016 - Hypertension 10/12/2013 - Personal history of tobacco use, presenting hazards to health 08/26/2005 - Pneumonia due to COVID-19 virus 10/03/2020 - Pure hypercholesterolemia - Tobacco use 03/18/2012 - Urinary retention 07/25/2012 PAST SURGICAL HISTORY Procedure Laterality Date - CATARACT EXTRACTION W/ INTRAOCULAR LENS IMPLANT HX Bilateral 01/2019 Right 2019. Left 2015. - COLONOS W/REM POLYP SNARE 06/16/2011 - LEFT HEART CATH,PERCUTANEOUS 05/06/2021 - PAS (more content not included)...[facility]03-08-2021 History of Present illness Narrative* Isabela Dawkins DO - 11/18/2020 11:29 AM EST DATE OF SERVICE: 11/18/2020 Patient is doing well this morning. He is getting a little tearful thinking about going home. He is anxious to go home tomorrow. He spoke with [facility] at [facility] [employer]. She is trying to arrange for home health and his oxygen. PHYSICAL EXAMINATION: Vital Signs: Blood pressure 106/60, pulse 95, respirations 20, temp 97.6, O2 saturation 97%. Heart: Regular. Lungs: Clear. Abdomen: Benign. Extremities: No edema. White count 11.7, hemoglobin 10.9, hematocrit 33.9, platelets of 274. Sodium 141, potassium 4.0, chloride 103, CO2 of 32, BUN 29, creatinine 0.84. IMPRESSION: 1. Fever secondary to Escherichia coli bacteremia and urinary tract infection on ceftriaxone. He has finished his antibiotics. 2. COVID-19 recovery. 3. Atrial fibrillation with rapid ventricular response. 4. History of COVID pneumonia. 5. Hypertension. 6. Hyperlipidemia. 7. Acute respiratory failure with hypoxia. 8. Pulmonary artery hypertension. 9. Moderate aortic insufficiency. 10. Bilateral pulmonary embolus on Eliquis. 11. Solitary lung nodule. 12. Benign prostatic hypertrophy. 13. Phimosis. PLAN: Will continue with current plan of care, PT, OT, rehab and weaning. Plan is to discharge home tomorrow with home healthcare and oxygen. Isabela Dawkins DO LE/[id number] SSI File#: [id number] Verified/Reviewed by [facility] PATIENT NAME: JAVIER DEGROOT Dodie Albert MEDICAL REC #: [id number] [place] [address] ADMIT DATE: DISCHARGE DATE: ATTENDING PHY: Andrea Ashley MD documented in this encounterHol[facility] History of Present illness Narrative* Isabela Dawkins DO - 11/17/2020 12:30 PM EST DATE OF SERVICE: 11/17/2020 SUBJECTIVE: Patient is doing well today. No issues or concerns. OBJECTIVE: Blood pressure is 107/86, pulse 95, respirations 22, temp 98.3, O2 saturation 92%. Heart is regular. Lungs are clear. Abdomen is benign. Extremities: No edema. IMPRESSION: 1. Fever secondary to Escherichia coli bacteremia and urinary tract infection on ceftriaxone. He has finished his antibiotics. Plan is to discharge home on Wednesday. 2. COVID-19 recovery. 3. Atrial fibrillation with rapid ventricular response. 4. History of COVID pneumonia. 5. Hypertension. 6. Hyperlipidemia. 7. Acute respiratory failure with hypoxia. 8. Pulmonary artery hypertension. 9. Moderate aortic insufficiency. 10. Bilateral pulmonary emboli on Eliquis. 11. Solitary lung nodule. 12. Benign prostatic hypertrophy. 13. Phimosis. PLAN: Will continue with current plan of care, PT, OT, rehab and weaning. Plan is to discharge home on Wednesday. Isabela Dawkins DO LE/[id number] SSI File#: [id number] Verified/Reviewed by [facility] PATIENT NAME: JAVIER DEGROOT Dodie Albert MEDICAL REC #: [id number] [place] [address] ADMIT DATE: DISCHARGE DATE: ATTENDING PHY: Andrea Ashley MD documented in this encounterHol[facility]-06-[facility]21 History of Present illness Narrative* Isabela Dawkins DO - 11/16/2020 11:31 AM EST DATE OF SERVICE: 11/16/2020 SUBJECTIVE: Patient is doing very well this morning. He has been up and about already. He wants to walk the halls. He plans on going home on Wednesday. No new issues overnight. OBJECTIVE: Vital Signs: Stable. Heart: Regular. Lungs: Clear. Abdomen: Benign. Extremities: No edema. IMPRESSION:1. Fever secondary to Escherichia coli bacteremia and urinary tract infection, on ceftriaxone. 2. COVID-19 recovery. 3. Atrial fibrillation with rapid ventricular response. 4. History of COVID pneumonia. 5. Hypertension. 6. Hyperlipidemia. 7. Acute respiratory failure with hypoxia. 8. Pulmonary artery hypertension. 9. Moderate aortic insufficiency. 10. Bilateral pulmonary emboli, on Eliquis. 11. Solitary lung nodule. 12. Benign prostatic hypertrophy. 13. Phimosis. PLAN: Will continue with current plan of care, PT, OT, rehab and weaning. Plan is to discharge home on Wednesday. Isabela Dawkins DO LE/[id number] SSI File#: [id number] Verified/Reviewed by [facility] PATIENT NAME: JAVIER DEGROOT [address] [place] [address] Dr. Albert MEDICAL REC #: [id number] [place] [address] ADMIT DATE: DISCHARGE DATE: ATTENDING PHY: Andrea Ashley MD documented in this encounterHolzer [facility]03-05-2021 History of Present illness Narrative* Isabela Dawkins DO - 11/15/2020 6:48 AM EST DATE OF SERVICE: 11/14/2020 SUBJECTIVE: Patient is doing well today. He has no current complaints. OBJECTIVE: Vital Signs: His blood pressure is 105/70, pulse 92, respiratory rate 20, temp 98.3, O2 saturation 95% on 4 L. Heart: Regular. Lungs: Clear. Abdomen: Benign. Extremities: No edema. LABORATORY: White count 9.3, hemoglobin 10.6, hematocrit 33.3, platelets of 222. Sodium is 142, potassium 3.4 which is being replaced. Chloride 103, CO2 of 31, BUN 32, creatinine 0.81. IMPRESSION: 1. Fever secondary to Escherichia coli bacteremia and urinary tract infection. Currently on ceftriaxone. Patient states he has a couple more doses. He is planning on going home on Wednesday possibly. 2. COVID-19 recovery. 3. Atrial fibrillation with rapid ventricular response which is improved, rate is controlled. 4. History of COVID pneumonia. 5. Hypertension. 6. Hyperlipidemia. 7. Acute respiratory failure with hypoxia. 8. Pulmonary artery hypertension. 9. Moderate aortic insufficiency. 10. Solitary lung nodule. 11. Benign prostatic hypertrophy. 12. Phimosis. 13. Bilateral pulmonary embolism, on Eliquis. PLAN: Will continue with the current plan of care, PT, OT, rehab, and weaning. DO LEON Prater/[id number] SSI File#: [id number] Verified/Reviewed by [facility] PAT[facility]: [facility] Dr[facility] Albert MEDICAL REC #: [id number] [place] [address] ADMIT DATE: DISCHARGE DATE: ATTENDING PHY: Andrea Ashley MD documented in this encounterHolzer [facility] [place]03-03-2021 History of Present illness Narrative* Andrea Ashley MD - 11/13/2020 12:14 PM EST DATE OF SERVICE: 11/13/2020 SUBJECTIVE: He is resting in his chair in good spirits. He does not remember meeting the urologist. He has no complaints. He says he is urinating fine. He continues on antibiotics. OBJECTIVE: Vital Signs: Include a temperature of 97.9, pulse 97, respires 20, blood pressure 113/59, oxygen is 96%. Lungs: Distant and diminished throughout. Heart: Irregularly irregular rhythm but rate controlled. Abdomen: Soft, obese, nontender. Bowel sounds are positive. Extremities: Trace edema. LABORATORY RESULTS: There were no new labs today. IMPRESSION: 1. Fever secondary to Escherichia coli bacteremia and urinary tract infection currently on ceftriaxone. 2. COVID-19 recovery. 3. Atrial fibrillation with rapid ventricular response. Cardiology consulted, on Cardizem and IV Lopressor. 4. History of COVID pneumonia. 5. Hypertension. 6. Hyperlipidemia. 7. Acute respiratory failure with hypoxia. 8. Pulmonary artery hypertension. 9. Moderate aortic insufficiency. 10. Solitary lung nodule. 11. Benign prostatic hyperplasia. 12. Phimosis. 13. Bilateral pulmonary embolism on Eliquis. PLAN: Continue with current plan of care, physical and occupational therapy, rehab, antibiotics. Andrea Ashley MD [id number] SSI File#: [id number] Verified/Reviewed by [facility] PATIENT NAME: JAVIER DEGROOT Dr. Albert MEDICAL REC #: [id number] [place] [address] ADMIT DATE: DISCHARGE DATE: ATTENDING PHY: Andrea Ashley MD documented in this encounterHolzer [facility] [place]03-02-2021 History of Present illness Narrative* Isabela Dawkins, - 11/12/2020 4:03 PM EST DATE OF SERVICE: 11/12/2020 SUBJECTIVE: Patient is doing well. He is getting ready to work with therapy. He has no complaints. PHYSICAL EXAMINATION: Vital Signs: Blood pressure 116/66, pulse 100, respirations 18, temperature 97.8, O2 saturation 92% on 5 L. Heart: Irregularly irregular. Lungs: Diminished throughout. Abdomen: Benign. Extremities: No edema. IMPRESSION: 1. Fever secondary to Escherichia coli bacteremia, secondary to urinary tract infection, currently on ceftriaxone. 2. COVID-19 recovery. 3. Atrial fibrillation with rapid ventricular response. Cardiology on consult. He is on increased doses of Cardizem now with IV Lopressor. 4. History of COVID pneumonia. 5. Acute respiratory failure with hypoxia. 6. Hypertension. 7. Hyperlipidemia. 8. Pulmonary artery hypertension. 9. Moderate aortic insufficiency. 10. Benign prostatic hyperplasia. 11. Solitary lung nodule. 12. Bilateral pulmonary embolism on Eliquis. PLAN: We will continue with the current plan of care, PT, OT, rehab, antibiotics, and we will continue to follow. DO LEON Prater/[id number] SSI File#: [id number] Verified/Reviewed by [facility] PATIENT NAME: JAVIER DEGROOT [address] [facility] MEDICAL REC #: [id number] [place] [address] ADMIT DATE: DISCHARGE DATE: ATTENDING PHY: Andrea Ashley MD documented in this encounterHolzer [facility] [place]03-01-2021 History of Present illness Narrative* Andrea Ashley MD - 11/11/2020 9:45 AM EST DATE OF SERVICE: 11/08/2020 SUBJECTIVE: He is resting in his chair. He does not have any complaints today, but he is frustrated about not being able to move around much. Apparently, he gets tired and tachycardic when he does. He does have atrial fibrillation. He was on Lopressor and cardiology added Cardizem, but his blood pressure has been too low for him to get any of it. In the meantime, his urine culture is growing out greater than 100,000 colonies of gram-negative bacilli. He so far remains on Zosyn and has been seen by infectious disease. Infectious disease is asking for a bladder scan for postvoid residual and urinary retention. OBJECTIVE: Vitals: Include a temperature of 99.1, pulse 116, respirations 28, blood pressure 103/61, oxygen saturation 91%. His lungs are distant and diminished. Heart: Has a regular rate and rhythm. Abdomen: Soft, nontender. Bowel sounds are positive. Extremities: No edema. LABORATORIES: Urinalysis did show 500+ leukocytes and urine culture is growing out greater than 100,000 colonies of gram-negative bacilli. IMPRESSION: 1. Fevers. Cultures suggesting a gram-negative bacilli urinary tract infection. He continues on Zosyn. Bladder scan is ordered. 2. COVID-19 recovery. 3. Atrial fibrillation with rapid ventricular response. 4. History of COVID pneumonia. 5. Acute respiratory failure with hypoxia. 6. Hypertension. 7. Hyperlipidemia. 8. Pulmonary artery hypertension. 9. Moderate aortic insufficiency. 10. Benign prostatic hyperplasia. 11. Solitary lung nodule. 12. Bilateral pulmonary embolism on Eliquis. PLAN: Continue with current plan of care and antibiotics, awaiting culture results. Will check a bladder scan. Andrea Ashley MD [id number] SSI File#: [id number] Verified/Reviewed by [facility] PATIENT NAME: [facility] MEDICAL REC #: [id number] [place] [address] ADMIT DATE: DISCHARGE DATE: ATTENDING PHY: Andrea Ashley MD documented in this encounterHolzer [facility]02-28-2021 History of Present illness Narrative* Andrea Ashley MD - 11/10/2020 12:02 PM EST DATE OF SERVICE: 11/10/2020 SUBJECTIVE: He is resting in his chair. He is in no distress. He feels fine today. He was seen by Dr. Taylor, the urologist, yesterday just as his repeat bladder scan was being performed, mind you. The first one performed post void, but while the patient was voiding while lying down, and there was 137 mL left behind. The second bladder scan was repeated after he voided while standing up, and there was negligible residual urine. Dr. Taylro is focusing on his phimosis as the problem and has talked about doing a circumcision. He also ordered a renal ultrasound, the results of which are still pending. OBJECTIVE: Vital Signs: Temperature 98.1, pulse 105, respiratory rate 26, blood pressure 104/69, oxygen is 91% on 6 L. His lungs are clear but diminished. Heart has got a regular rate and rhythm. Abdomen is soft, nontender, obese, nondistended. Bowel sounds are positive. Extremities: No edema. LABORATORIES: His potassium today is 4.5. Digoxin level is 0.63 and therapeutic. Renal ultrasound is still pending. IMPRESSION: 1. Fever. Cultures show E. coli. Patient remains on Zosyn for a urinary tract infection and bacteremia. 2. COVID-19 in recovery. 3. Atrial fibrillation. 4. History of COVID pneumonia. 5. Acute respiratory failure with hypoxia. 6. Pulmonary artery hypertension. 7. Hyperlipidemia. 8. Hypertension. 9. Moderate aortic insufficiency. 10. Benign prostatic hypertrophy. 11. Phimosis. 12. Solitary lung nodule. 13. Bilateral pulmonary embolism on Eliquis. PLAN: Continue current plan of care and continue the Zosyn. We will await his decisions regarding any circumcision. Andrea Ashley MD [id number] SSI File#: [id number] Verified/Reviewed by [facility] PATIENT NAME: JAVIER DEGROOT [facility] Dr. Albert MEDICAL REC #: [id number] [place] [address] ADMIT DATE: DISCHARGE DATE: ATTENDING PHY: Andrea Ashley MD documented in this encounterHolzer [facility]02-27-2021 History of Present illness Narrative* Andrea Ashley MD - 11/09/2020 10:33 AM EST DATE OF SERVICE: 11/09/2020 HISTORY: He is resting in his chair in good spirits. He is still on Zosyn antibiotics for presumed urosepsis. His urine culture and blood cultures are growing out gram negative bacillus. One blood culture has already been identified as Escherichia coli sensitive to the Zosyn that he is on. He did have a bladder scan yesterday, it was not entirely benign, although not severely distended. His bladder contained 137 mL of urine following a void. He does have BPH, but he also has phimosis, thus I am not sure which one is contributing more to his urinary retention and I would like to have Urology look at him. PHYSICAL EXAMINATION: Vitals include a temperature of 98.0, pulse 112, respirations 25, blood pressure 99/61, oxygen is 95%. His lungs are clear, but diminished and distant. Heart regular rate and rhythm. Abdomen soft, nontender, bowel sounds are positive. Extremities: No edema. LABORATORIES: Sodium and potassium are 142 and 3.0. BUN and creatinine are 21 and 0.82. Glucose is 121. Cultures are as reported. IMPRESSION: 1. Fevers, cultures showing Escherichia coli. Patient on Zosyn for a urinary tract infection and bacteremia. 2. COVID-19 in recovery. 3. Atrial fibrillation. 4. History of COVID pneumonia. 5. Acute respiratory failure with hypoxia. 6. Pulmonary artery hypertension. 7. Hyperlipidemia. 8. Hypertension. 9. Moderate aortic insufficiency. 10. Benign prostatic hyperplasia. 11. Phimosis. 12. Urinary retention. 13. Solitary lung nodule. 14. Bilateral pulmonary embolism on Eliquis. PLAN: Will continue current plan of care. Will continue the Zosyn. I would like Urology to see him regarding his urinary retention and whether to blame his BPH or his phimosis. He is already receiving Lotrisone cream to his urethral meatus and foreskin. Andrea Ashley MD [id number] SSI File#: [id number] Verified/Reviewed by [facility] PATIENT NAME: JAVIER DEGROOT Dodie Albert MEDICAL REC #: [id number] [place] [address] ADMIT DATE: DISCHARGE DATE: ATTENDING PHY: Andrea Ashley MD documented in this encounterHolzer [facility]02-25-2021 History of Present illness Narrative* Isabela Mckeon ChayoleonDO - 11/07/2020 2:03 PM EST DATE OF SERVICE: 11/07/2020 SUBJECTIVE: Patient is doing okay this morning. He said he had a rough night last night. He had the shakes. He is back on the high-flow oxygen now at, I believe, 30%. They are going to hold his Cardizem right now because blood pressure is only 90s/50s. They did a urine on him which shows moderate blood, some white cells, 3+ bacteria so we are waiting on a culture. He also has sputum and blood cultures pending as well. Dr. Maher was consulted after he developed a 102.6 fever last night. He is on Zosyn currently, and we are waiting on the final cultures to come back. PHYSICAL EXAMINATION: Heart: Regular. Lungs: Clear. Abdomen: Benign. Extremities: No edema. IMPRESSION: 1. Fevers, cultures pending. Patient currently on Zosyn. Looks like he has a probable urinary tract infection. 2. COVID-19 recovery. 3. Atrial fibrillation, being seen by Cardiology. 4. History of COVID pneumonia. 5. Acute respiratory failure with hypoxia. 6. Pulmonary artery hypertension. 7. Hyperlipidemia. 8. Hypertension. 9. Moderate aortic insufficiency. 10. Benign prostatic hyperplasia. 11. Solitary lung nodule. 12. Bilateral pulmonary embolism on Eliquis. PLAN: We will continue with the current plan of care. Await final cultures to come back. We will continue with Zosyn for now, and we will continue to wean from oxygen as tolerated. Isabela DawkinsDO MAYERS/[id number] SSI File#: [id number] Verified/Reviewed by [facility] PATIENT NAME: JAVIER DEGROOT [address] Dodie Albert MEDICAL REC #: [id number] [place] [address] ADMIT DATE: DISCHARGE DATE: ATTENDING PHY: Andrea Ashley MD documented in this encounterHolzer [facility]02-23-2021 History of Present illness Narrative* Isabela Dawkins DO - 11/05/2020 9:42 AM EST DATE OF SERVICE: 11/05/2020 SUBJECTIVE: Patient is doing well this morning. He went into atrial fibrillation last night. Rate seems to be coming down now though. They did start him on a drip. Awaiting on cardiology to see him today. Still running in the low 100s. His potassium this morning is 3.2. That will be replaced. He denies any other complaints. He is just discouraged because he was doing so well from his lung standpoint. OBJECTIVE: Heart: Irregular, rate controlled. Lungs: Clear. Abdomen: Benign. Extremities: No edema. IMPRESSION: 1. COVID-19 in recovery. 2. Atrial fibrillation. Cardiology to see today. 3. History of COVID pneumonia. 4. Acute respiratory failure with hypoxia. 5. Hyperlipidemia. 6. Pulmonary artery hypertension. 7. Hypertension. 8. Moderate aortic insufficiency. 9. Benign prostatic hypertrophy. 10. Solitary lung nodule. 11. Bilateral pulmonary embolism on Eliquis. PLAN: Will continue with current plan of care, PT, OT, rehab and weaning. Cardiology to evaluate today as well. Isabela Dawkins DO LE/[id number] SSI File#: [id number] Verified/Reviewed by [facility] PATIENT NAME: JAVIER DEGROOT Dodie Albert MEDICAL REC #: [id number] [place] [address] ADMIT DATE: DISCHARGE DATE: ATTENDING PHY: Andrea Ashley MD documented in this encounterHolzer Medical Center [facility]02-22-2021 History of Present illness Narrative* Isabela Dawkins DO - 11/04/2020 2:40 PM EST DATE OF SERVICE: 11/04/2020 SUBJECTIVE: Patient is doing well today. He is down to 4 L. I did speak with case management about possibly getting him to a skilled facility. So, hopefully he will be able to be discharged here soon. He is doing very well. OBJECTIVE: Blood pressure is 100/54, pulse 103, respirations 22, temp 98.2, O2 saturation 91%. White count of 15.6, hemoglobin 12.3, hematocrit 37.4, platelets of 290. Sodium is 137, potassium 3.3 which will be replaced, chloride 97, CO2 of 33, BUN 30, creatinine 0.83. Heart is regular. Lungs are clear. Abdomen is benign. Extremities: No edema. IMPRESSION: 1. COVID-19 in recovery. 2. History of COVID pneumonia. 3. Acute respiratory failure with hypoxia. 4. Hyperlipidemia. 5. Pulmonary artery hypertension. 6. Hypertension. 7. Moderate aortic insufficiency. 8. Benign prostatic hypertrophy. 9. Solitary lung nodule. 10. Bilateral pulmonary embolism on Eliquis. PLAN: Will continue with current plan of care, PT, OT, rehab and weaning. Hopefully planning for discharge here soon. DO LEON Prater/[id number] SSI File#: [id number] Verified/Reviewed by [facility] PATIENT NAME: JAVIER DEGROOT [facility] Dr. Albert MEDICAL REC #: [id number] [place] [address] ADMIT DATE: DISCHARGE DATE: ATTENDING PHY: Andrea Ashley MD documented in this encounterHolzer Medical Center [facility]02-19-2021 History of Present illness Narrative* Andrea Ahsley MD - 11/01/2020 11:09 AM EST DATE OF SERVICE: 11/01/2020 SUBJECTIVE: He is resting in his chair. Using his incentive spirometer. He remains on the nasal cannula but at 7 L. OBJECTIVE: Vital Signs: Include a temperature of 97.8, pulse 107, respiratory rate 20, blood pressure 109/68, oxygen 90%. Lungs: Diminished throughout. Heart: Regular rate and rhythm. Abdomen: Soft, nontender, obese, benign. Extremities: Trace edema. LABORATORIES: There were no labs today. IMPRESSION: 1. COVID-19 in recovery. 2. History of COVID pneumonia. 3. Acute respiratory failure with hypoxia. 4. Hyperlipidemia. 5. Pulmonary artery hypertension. 6. Hypertension. 7. Moderate aortic insufficiency. 8. Benign prostatic hypertrophy. 9. Solitary lung nodule. 10. Bilateral pulmonary embolism, on Eliquis. PLAN: Continue current plan of care with physical and occupational therapy, rehab and weaning as tolerated. Andrea Ashley MD [id number] SSI File#: [id number] Verified/Reviewed by [facility] PATIENT NAME: JAVIER DEGROOT [address] [place] [address] Dr. Albert MEDICAL REC #: [id number] [place] [address] ADMIT DATE: DISCHARGE DATE: ATTENDING PHY: Andrea Ashley MD documented in this encounterHolzer [facility] History of Present illness Narrative* Isabela Dawkins DO - 10/31/2020 2:44 PM EST DATE OF SERVICE: 10/31/2020 The patient is doing well this morning. He is on nasal cannula now. As of last night, he is doing well. His vitals are stable. White count of 12.5, hemoglobin 12.7, hematocrit 38.3, platelets of 248. Sodium 136, potassium 3.9, chloride 94, CO2 of 36, BUN 39, creatinine 0.86. Heart is regular. Lungs are clear. Abdomen is benign. Extremities, no edema. IMPRESSION: 1. COVID-19 in recovery. 2. History of COVID pneumonia. 3. Acute respiratory failure with hypoxia on Airvo. 4. Hyperlipidemia. 5. Pulmonary artery hypertension. 6. Hypertension. 7. Moderate aortic insufficiency. 8. BPH. 9. Solitary lung nodule. 10. Bilateral pulmonary embolism on Eliquis. PLAN: We will continue with current plan of care, PT, OT, rehabilitation, and weaning. DO LEON Prater/[id number] SSI File#: [id number] CC: Andrea Ashley MD Verified/Reviewed by [facility] PATIENT NAME: JAVIER DEGROOT [address] MEDICAL REC #: [id number] [place] [address] ADMIT DATE: DISCHARGE DATE: ATTENDING PHY: Andrea Ashley MD [facility] History of Present illness Narrative* Andrea Ashley MD - 10/30/2020 11:41 AM EST DATE OF SERVICE: 10/30/2020 SUBJECTIVE: He is sitting in his chair. He is in good spirits. He says the Lasix had worked. He tries to keep his legs elevated. He is still wearing the Airvo. PHYSICAL EXAMINATION: Vital Signs: Temperature is 97.9, pulse is 120, respirations 28, blood pressure 118/56, oxygen is 90%. Lungs: His lungs are clear but diminished. Cardiac: Heart has got a regular rate and rhythm. Abdomen: Soft, nontender. Bowel sounds are positive. Extremities: No edema. LABORATORIES: There were no new labs today. IMPRESSION: 1. COVID-19 in recovery. 2. History of COVID pneumonia. 3. Acute respiratory failure with hypoxia on Airvo. 4. Hyperlipidemia. 5. Pulmonary artery hypertension. 6. Hypertension. 7. Moderate aortic insufficiency. 8. BPH. 9. Solitary lung nodule. 10. Bilateral pulmonary emboli on Eliquis. PLAN: Continue current plan of care with physical and occupational therapy, rehabilitation, and weaning. Andrea Ashley MD /[id number] SSI File#: [id number] Verified/Reviewed by [facility] PATIENT NAME: JAVIER DEGROOT [address] MEDICAL REC #: [id number] [place] [address] ADMIT DATE: DISCHARGE DATE: ATTENDING PHY: Andrea Ashley MD documented in [facility]Hol[facility] History of Present illness Narrative* Isabela Dawkins DO - 10/29/2020 11:25 AM EST DATE OF SERVICE: 10/29/2020 SUBJECTIVE: Patient is doing very well today. He is sitting up in the chair, still on Airvo. Denies any complaints. OBJECTIVE: Vital Signs: Blood pressure 100/55, pulse 108, respirations 18, temp 97.9, O2 saturation 91%. Laboratory Data: He had no new labs today. Heart: Regular. Lungs: Clear. Abdomen: Benign. Extremities: No edema. IMPRESSION: 1. COVID-19, in recovery. 2. History of COVID pneumonia. 3. Acute respiratory failure with hypoxia, on Airvo. 4. Hyperlipidemia. 5. Hypertension. 6. Pulmonary artery hypertension. 7. Moderate aortic insufficiency. 8. BPH. 9. Bilateral pulmonary emboli, on Eliquis. 10. Solitary lung nodule. PLAN: We will continue with current plan of care, PT, OT, rehab, and weaning. Isabela Dawkins DO /[id number] SSI File#: [id number] Verified/Reviewed by [facility] PATIENT NAME: JAVIER DEGROOT Dr. [address] MEDICAL REC #: [id number] [place] [address] ADMIT DATE: DISCHARGE DATE: ATTENDING PHY: Andrea Ashley MD documented in this encounterHol[facility] History of Present illness Narrative* Isabela Dawkins DO - 10/27/2020 11:11 AM EST DATE OF SERVICE: 10/27/2020 SUBJECTIVE: Patient is doing fine this morning. He has no complaints or issues. OBJECTIVE: Blood pressure is 105/62. Pulse is 122, respirations 18, temp 98.2. O2 saturation is 89%. Heart is regular. Lungs are clear. Abdomen is benign. Extremities: No edema. IMPRESSION: 1. COVID-19 in recovery. 2. History of COVID-19 pneumonia. 3. Acute respiratory failure with hypoxia. 4. Hyperlipidemia. 5. Hypertension. 6. Pulmonary artery hypertension. 7. Moderate aortic insufficiency. 8. Benign prostatic hypertrophy 9. Bilateral pulmonary emboli. 10. Anticoagulation on Eliquis. 11. Solitary lung nodule. PLAN: Will continue with current plan of care, PT, OT, rehab and weaning. Isabela Dawkins DO LE/[id number] SSI File#: [id number] Verified/Reviewed by [facility] PATIENT NAME: JAVIER DEGROOT [address] MEDICAL REC #: [id number] [place] [address] ADMIT DATE: DISCHARGE DATE: ATTENDING PHY: Andrea Ashley MD documented in this encounterHol[facility] [place] History of Present illness Narrative* Isabela Dawkins DO - 10/26/2020 11:41 AM EST DATE OF SERVICE: 10/26/2020 SUBJECTIVE: Patient is doing well this morning, sitting up in the chair. He has no complaints. His blood pressure has been running low, so I did put parameters on his blood pressure medications. OBJECTIVE: Vital Signs: Blood pressure 98/62, pulse 104, respiratory rate 18, temperature 98.2, O2 saturation 90%. Heart: Regular. Lungs: Clear. Abdomen: Benign. Extremities: No edema. IMPRESSION: 1. COVID-19, in recovery. 2. History of COVID-19 pneumonia. 3. Acute respiratory failure with hypoxia. 4. Hyperlipidemia. 5. Hypertension. 6. Pulmonary artery hypertension. 7. Moderate aortic insufficiency. 8. Benign prostatic hypertrophy. 9. Bilateral pulmonary emboli. 10. Anticoagulation on Eliquis. 11. Solitary lung nodule. 12. Improved leg edema. PLAN: We will continue with current plan of care, PT, OT, rehab, weaning of his oxygen. Isabela M DO Mariza LE/[id number] SSI File#: [id number] Verified/Reviewed by [facility] PATIENT NAME: [facility] [address] MEDICAL REC #: [id number] [place] [address] ADMIT DATE: DISCHARGE DATE: ATTENDING PHY: Andrea Ashley MD documented in this encounterHol[facility] [place] History of Present illness Narrative* Andrea Ashley MD - 10/25/2020 11:50 AM EST DATE OF SERVICE: 10/25/2020 SUBJECTIVE: He is resting in his chair in good spirits. He is wondering when he will be able to go home. He is sleeping better. PHYSICAL EXAMINATION: Vitals: Temperature of 98.0, pulse 94, respiratory rate 20, blood pressure 90/60, oxygen is 95%. Lungs: Clear but diminished at the bases. Heart: Regular rate and rhythm. Abdomen: Soft, nontender, benign. Extremities: Without edema. LABORATORIES: There were no new labs today. IMPRESSION: 1. COVID-19 in recovery. 2. History of COVID-19 pneumonia. 3. Acute respiratory failure with hypoxia. 4. Hyperlipidemia. 5. Hypertension. 6. Pulmonary artery hypertension. 7. Moderate aortic insufficiency. 8. Benign prostatic hyperplasia. 9. Bilateral pulmonary emboli. 10. Anticoagulation on Eliquis. 11. Solitary lung nodule. 12. Improved leg edema. PLAN: Continue current plan of care, physical and occupational therapy, rehab, and weaning. Andrea Ashley MD RG/[id number] SSI File#: [id number] Verified/Reviewed by [facility] PATIENT NAME: JAVIER DEGROOT [address] [place] [address] [address] MEDICAL REC #: [id number] [place] [address] ADMIT DATE: DISCHARGE DATE: ATTENDING PHY: Andrea Ashley MD documented in this encounterHol[facility] [place] History of Present illness Narrative* Isabela Dawkins DO - 10/24/2020 3:21 PM EST DATE OF SERVICE: 10/24/2020 SUBJECTIVE: Patient is doing well this morning. Has no complaints. He said his Ativan is not helping him sleep, though, so I did switch him to melatonin. OBJECTIVE: Vital signs: Blood pressure 112/56, pulse 113, respirations 18, temperature 97.8, O2 saturation 91%. Heart: Regular. Lungs: Diminished at the bases. Abdomen: Benign. Extremities: No edema. LABORATORY DATA: White count of 16.1, hemoglobin 11.6, hematocrit 35.4, platelets of 213. Sodium 137, potassium 4.2, chloride 98, CO2 32, BUN 37, creatinine 0.92. IMPRESSION: 1. COVID-19 in recovery. 2. History of COVID-19 pneumonia. 3. Acute respiratory failure with hypoxia. 4. Hypertension. 5. Hyperlipidemia. 6. Pulmonary artery hypertension. 7. Moderate aortic insufficiency. 8. Benign prostatic hypertrophy. 9. Chronic bilateral pulmonary emboli. 10. Anticoagulation on Eliquis. 11. Solitary lung nodule. 12. Leg edema which is improved. PLAN: Will continue with current plan of care, PT, OT, rehab, and weaning. DO LEON Prater/[id number] SSI File#: [id number] Verified/Reviewed by [facility] PATIENT NAME: JAVIER DEGROOT [address] MEDICAL REC #: [id number] [place] [address] ADMIT DATE: DISCHARGE DATE: ATTENDING PHY: Andrea Ashley MD documented in this encounterHolzer [facility] [place] History of Present illness Narrative* Andrea Ashley MD - 10/23/2020 11:27 AM EST DATE OF SERVICE: 10/23/2020 SUBJECTIVE: He is resting in his chair. He is in no distress. He is in good spirits. He is wondering when he can go home. PHYSICAL EXAMINATION: Vitals: Include temperature 98.4, pulse 98, respirations 18, blood pressure 118/62, oxygen 94%. Lungs: Clear but diminished. Heart: Regular rate and rhythm. Abdomen: Soft, nontender, benign. Extremities: No edema. LABORATORIES: There were no new labs today. IMPRESSION: 1. COVID-19, in recovery. 2. History of COVID-19 pneumonia. 3. Acute respiratory failure with hypoxia. 4. Hypertension. 5. Hyperlipidemia. 6. Pulmonary artery hypertension. 7. Moderate aortic insufficiency. 8. Benign prostatic hypertrophy 9. Chronic bilateral pulmonary emboli. 10. Anticoagulation on Eliquis. 11. Solitary lung nodule. 12. Leg edema. PLAN: Continue current plan of care with physical and occupational therapy, rehab . MD YANELIS Gomes/[id number] SSI File#: [id number] Verified/Reviewed by [facility] PATIENT NAME: JAVIER DEGROOT [address] MEDICAL REC #: [id number] [place] [address] ADMIT DATE: DISCHARGE DATE: ATTENDING PHY: Andrea Ashley MD documented in this encounterHol[facility] [place] History of Present illness Narrative* Isabela Dawkins DO - 10/22/2020 1:37 PM EST DATE OF SERVICE: 10/22/2020 SUBJECTIVE: Patient is doing well this morning. No complaints. He feels like his oxygen level is doing well. OBJECTIVE: Vital Signs: Blood pressure 108/60, pulse 122, respiratory is 20, temperature 98.7, O2 saturation 91%. Heart: Regular. Lungs: Clear. Abdomen: Benign. Extremities: No edema. IMPRESSION: 1. COVID recovery. 2. COVID-19 pneumonia. 3. Acute respiratory failure and hypoxia. 4. Hypertension. 5. Hyperlipidemia. 6. Pulmonary artery hypertension. 7. Moderate aortic insufficiency. 8. Benign prostatic hypertrophy. 9. Chronic bilateral pulmonary emboli. 10. Anticoagulation, on Eliquis. 11. Leg edema. 12. Solitary lung nodule. PLAN: Will continue with current plan of care, PT, OT, rehab and weaning. DO LEON Prater/[id number] SSI File#: [id number] Verified/Reviewed by [facility] PATIENT NAME: JAVIER DEGROOT [address] MEDICAL REC #: [id number] [place] [id number] ADMIT DATE: DISCHARGE DATE: ATTENDING PHY: Andrea Ashley MD documented in this encounterHol[facility] [place] History of Present illness Narrative* Isabela Dawkins DO - 10/21/2020 10:57 AM EST DATE OF SERVICE: 10/21/2020 Patient is doing well this morning, remains on Airvo. He was working with therapy this morning. PHYSICAL EXAMINATION: Vitals: Stable. Heart: Regular. Lungs: Diminished at the bases. Abdomen: Benign. Extremities: No edema. His white count is 12.8, hemoglobin 11.7, hematocrit 37, platelets of 187. Sodium 137, potassium 3.2 which is being replaced, chloride 100, CO2 of 30, BUN 28, creatinine 0.96. IMPRESSION: 1. COVID recovery. 2. COVID-19 pneumonia. 3. Acute respiratory failure with hypoxia. 4. Hypertension. 5. Hyperlipidemia. 6. Pulmonary artery hypertension. 7. Moderate aortic insufficiency. 8. Benign prostatic hypertrophy. 9. Chronic bilateral pulmonary emboli. 10. Anticoagulation on Eliquis. 11. Leg edema. 12. Solitary long nodule. PLAN: Will continue with current plan of care, PT, OT, rehab and weaning. Isabela Dawkins DO LE/[id number] SSI File#: [id number] Verified/Reviewed by [facility] PATIENT NAME: JAVIER DEGROOT [address] MEDICAL REC #: [id number] [place] [id number] ADMIT DATE: DISCHARGE DATE: ATTENDING PHY: Andrea Ashley MD documented in this encounterHol[facility] [place] History of Present illness Narrative* Andrea Ashley MD - 10/20/2020 1:34 PM EST DATE OF SERVICE: 10/20/2020 He is resting in his bed in good spirits. He says he did not sleep well but the nurses say he did. PHYSICAL EXAMINATION: Vital signs: Temperature of 97.0, pulse 84, respirations 18, blood pressure 110/60, oxygen is 95%. His lungs are clear but diminished. Heart has a regular rate and rhythm. Abdomen is soft, nontender. Bowel sounds are positive. Extremities: Trace edema in his lower extremities. LABORATORY DATA: There were no new labs today. IMPRESSION: 1. COVID recovery. 2. COVID-19 pneumonia. 3. Acute respiratory failure with hypoxia. 4. Hypertension. 5. Hyperlipidemia. 6. Pulmonary artery hypertension. 7. Moderate aortic insufficiency. 8. Benign prostatic hypertrophy. 9. Chronic bilateral pulmonary emboli. 10. Anticoagulation on Eliquis. 11. Leg edema. 12. Solitary lung nodule. PLAN: Continue current therapies and respiratory support. Await pulmonary consult. Andrea Ashley MD RG/[id number] SSI File#: [id number] Verified/Reviewed by [facility] PATIENT NAME: JAVIER DEGROOT [address] MEDICAL REC #: [id number] [place] [address] ADMIT DATE: DISCHARGE DATE: ATTENDING PHY: Andrea Ashley MD documented in [facility] encounterHol[facility]* Diagnosis Benign prostatic hyperplasia with lower urinary tract symptoms, symptom details unspecified [facility]* Diagnosis S/P TAVR (transcatheter aortic valve replacement)- Primary Heart valve replaced by other means Chronic atrial fibrillation (HCC) Atrial fibrillation Obesity (BMI 35.0-39.9 without comorbidity) Obesity, unspecified [facility]* Diagnosis Wound of left lower extremity, initial encounter- Primary Need for vaccination Need for prophylactic vaccination and inoculation against unspecified single disease documented in this encounter [facility] note* Diagnosis S/P TAVR (transcatheter aortic valve replacement)- Primary Heart valve replaced by other means Obesity (BMI 35.0-39.9 without comorbidity) Obesity, unspecified Primary hypertension Unspecified essential hypertension documented in this encounter [facility] note* Diagnosis Benign prostatic hyperplasia with lower urinary tract symptoms, symptom details unspecified documented in this encounter [facility] note* Diagnosis Medicare annual wellness visit, subsequent- Primary Routine general medical examination at a [facility] care facility Centrilobular emphysema (HCC) Other emphysema Secondary pulmonary arterial hypertension (HCC) Chronic atrial fibrillation (HCC) Atrial fibrillation Stage 3a chronic kidney disease (HCC) S/P TAVR (transcatheter aortic valve replacement) Heart valve replaced by other means Primary hypertension Unspecified essential hypertension Nocturnal hypoxia Hypoxemia NOAM (obstructive sleep apnea) cannot tolerate CPAP Obstructive sleep apnea (adult) (pediatric) Impaired fasting glucose Essential hypertension Unspecified essential hypertension documented in this encounter [facility] note* Diagnosis Preoperative examination- Primary Preoperative examination, unspecified Chronic atrial fibrillation (HCC) Atrial fibrillation Centrilobular emphysema (HCC) Other emphysema Nocturnal hypoxia Hypoxemia S/P TAVR (transcatheter aortic valve replacement) Heart valve replaced by other means Tremor of left hand documented in this encounter [facility] for referral (narrative)* Outpatient Procedure (Routine) - Pending Review Specialty Diagnoses / Procedures Referred By Contac t [facility] Diagnoses S/P TAVR (transcatheter aortic valve replacement) Procedures ECHO ECHO TTHRC R-T 2D W/WOM-MODE COMPL SPEC&COLR D Tamika Dutta, WHOLESALE AND RETAIL MERCHANT.SALES OPERATIONS DIRECTOR [address] [place] [address] [facility] 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 Advance Directive(s) 07/10/2021 5:58 AM Latest Code Status on File Code Status Date Activated Date Inactivated Comments Full Code 07/10/2021 5:02 PM 07/11/2021 6:10 PM Full Code Order Discussed With: Patient Documents on File Type Date Recorded 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 Advance Directive(s) 07/10/2021 5:58 AM Latest Code Status on File Code Status Date Activated Date Inactivated Comments Full Code 07/10/2021 5:02 PM 07/11/2021 6:10 PM Latest Code Status on File Code Status Date Activated Date Inactivated Comments Full Code 07/10/2021 5:02 PM 07/11/2021 6:10 PM Question Answer Comments Full Code Order Discussed With: Patient Reason for Referral Specialty Diagnoses / Procedures Referred By Jacobo gonzalez Referred To Contact General Surgery Diagnoses Positive colorectal cancer screening using Cologuard test Procedures CONSULT TO GENERAL SURGERY OFFICE/OUTPATIENT NEW HIGH MDM 60-74 MINUTES Tomy Hernandez MD [address] [place] [address] Referral ID Status Reason Start Date Expiration Date Visits Requested Visits Authorized [id number] Authorized PCP Requested Referral 03/18/2022 03/18/2023 1 1 Additional Source Comments (unrecognized sect ion and content) No Status Records FoundNo Status Records FoundNo Status Records FoundNo Status Records Found INFORMATION SOURCE (unrecogn ized section and content) DATE CREATED AUTHOR AUTHOR'S ORGANIZ ATION 11/02/2021 [facility] Dorie Viramontes DATE CREATED AUTHOR AUTHOR'S ORGANIZ ATION 07/05/2022 [facility] DATE CREATED AUTHOR AUTHOR'S ORGANIZ ATION 08/18/2023 [facility] Source Comments (unrecognize d section and content) In the event this informatio n is protected by the Federal Confidentiality of Alcohol and Drug Abuse Patient Records regulations: The Federal rules restrict any use of the information to criminally investigate or prosecute any alcohol or drug abuse patient.[facility] the event this information is protected by the Federal Confidentiality of Alcohol and Drug Abuse Patient Records regulations: The Federal rules restrict any use of the information to criminally investigate or prosecute any alcohol or drug abuse patient.[facility]In the event this information is protected by the Federal Confidentiality of Alcohol and Drug Abuse Patient Records regulations: The Federal rules restrict any use of the information to criminally investigate or prosecute any alcohol or drug abuse patient.[facility] the event this information is protected by the Federal Confidentiality of Alcohol and Drug Abuse Patient Records regulations: The Federal rules restrict any use of the information to criminally investigate or prosecute any alcohol or drug abuse patient.[facility] the event this information is protected by the Federal Confidentiality of Alcohol and Drug Abuse Patient Records regulations: The Federal rules restrict any use of the information to criminally investigate or prosecute any alcohol or drug abuse patient.[facility] the event this information is protected by the Federal Confidentiality of Alcohol and Drug Abuse Patient Records regulations: The Federal rules restrict any use of the information to criminally investigate or prosecute any alcohol or drug abuse patient.[facility] the event this information is protected by the Federal Confidentiality of Alcohol and Drug Abuse Patient Records regulations: The Federal rules restrict any use of the information to criminally investigate or prosecute any alcohol or drug abuse patient.[facility] the event this information is protected by the Federal Confidentiality of Alcohol and Drug Abuse Patient Records regulations: The Federal rules restrict any use of the information to criminally investigate or prosecute any alcohol or drug abuse patient.[facility] the event this information is protected by the Federal Confidentiality of Alcohol and Drug Abuse Patient Records regulations: The Federal rules restrict any use of the information to criminally investigate or prosecute any alcohol or drug abuse patient.[facility] the event this information is protected by the Federal Confidentiality of Alcohol and Drug Abuse Patient Records regulations: The Federal rules restrict any use of the information to criminally investigate or prosecute any alcohol or drug abuse patient.[facility] the event this information is protected by the Federal Confidentiality of Alcohol and Drug Abuse Patient Records regulations: The Federal rules restrict any use of the information to criminally investigate or prosecute any alcohol or drug abuse patient.[facility] the event this information is protected by the Federal Confidentiality of Alcohol and Drug Abuse Patient Records regulations: The Federal rules restrict any use of the information to criminally investigate or prosecute any alcohol or drug abuse patient.[facility] the event this information is protected by the Federal Confidentiality of Alcohol and Drug Abuse Patient Records regulations: The Federal rules restrict any use of the information to criminally investigate or prosecute any alcohol or drug abuse patient.[facility] the event this information is protected by the Federal Confidentiality of Alcohol and Drug Abuse Patient Records regulations: The Federal rules restrict any use of the information to criminally investigate or prosecute any alcohol or drug abuse patient.[facility] the event this information is protected by the Federal Confidentiality of Alcohol and Drug Abuse Patient Records regulations: The Federal rules restrict any use of the information to criminally investigate or prosecute any alcohol or drug abuse patient.[facility] the event this information is protected by the Federal Confidentiality of Alcohol and Drug Abuse Patient Records regulations: The Federal rules restrict any use of the information to criminally investigate or prosecute any alcohol or drug abuse patient.[facility] the event this information is protected by the Federal Confidentiality of Alcohol and Drug Abuse Patient Records regulations: The Federal rules restrict any use of the information to criminally investigate or prosecute any alcohol or drug abuse patient.[facility] JacksonIn the event this information is protected by the Federal Confidentiality of Alcohol and Drug Abuse Patient Records regulations: The Federal rules restrict any use of the information to criminally investigate or prosecute any alcohol or drug abuse patient.[facility] [place] the event this information is protected by the Federal Confidentiality of Alcohol and Drug Abuse Patient Records regulations: The Federal rules restrict any use of the information to criminally investigate or prosecute any alcohol or drug abuse patient.[facility] JacksonIn the event this information is protected by the Federal Confidentiality of Alcohol and Drug Abuse Patient Records regulations: The Federal rules restrict any use of the information to criminally investigate or prosecute any alcohol or drug abuse patient.[facility] JacksonIn the event this information is protected by the Federal Confidentiality of Alcohol and Drug Abuse Patient Records regulations: The Federal rules restrict any use of the information to criminally investigate or prosecute any alcohol or drug abuse patient.[facility] JacksonIn the event this information is protected by the Federal Confidentiality of Alcohol and Drug Abuse Patient Records regulations: The Federal rules restrict any use of the information to criminally investigate or prosecute any alcohol or drug abuse patient.[facility] JacksonIn the event this information is protected by the Federal Confidentiality of Alcohol and Drug Abuse Patient Records regulations: The Federal rules restrict any use of the information to criminally investigate or prosecute any alcohol or drug abuse patient.[facility] JacksonIn the event this information is protected by the Federal Confidentiality of Alcohol and Drug Abuse Patient Records regulations: The Federal rules restrict any use of the information to criminally investigate or prosecute any alcohol or drug abuse patient.[facility] JacksonIn the event this information is protected by the Federal Confidentiality of Alcohol and Drug Abuse Patient Records regulations: The Federal rules restrict any use of the information to criminally investigate or prosecute any alcohol or drug abuse patient.[facility] JacksonIn the event this information is protected by the Federal Confidentiality of Alcohol and Drug Abuse Patient Records regulations: The Federal rules restrict any use of the information to criminally investigate or prosecute any alcohol or drug abuse patient.[facility] [place]In the event this information is protected by the Federal Confidentiality of Alcohol and Drug Abuse Patient Records regulations: The Federal rules restrict any use of the information to criminally investigate or prosecute any alcohol or drug abuse patient.[facility] JacksonIn the event this information is protected by the Federal Confidentiality of Alcohol and Drug Abuse Patient Records regulations: The Federal rules restrict any use of the information to criminally investigate or prosecute any alcohol or drug abuse patient.[facility] [place]In the event this information is protected by the Federal Confidentiality of Alcohol and Drug Abuse Patient Records regulations: The Federal rules restrict any use of the information to criminally investigate or prosecute any alcohol or drug abuse patient.[facility] JacksonIn the event this information is protected by the Federal Confidentiality of Alcohol and Drug Abuse Patient Records regulations: The Federal rules restrict any use of the information to criminally investigate or prosecute any alcohol or drug abuse patient.[facility] JacksonIn the event this information is protected by the Federal Confidentiality of Alcohol and Drug Abuse Patient Records regulations: The Federal rules restrict any use of the information to criminally investigate or prosecute any alcohol or drug abuse patient.[facility] JacksonIn the event this information is protected by the Federal Confidentiality of Alcohol and Drug Abuse Patient Records regulations: The Federal rules restrict any use of the information to criminally investigate or prosecute any alcohol or drug abuse patient.[facility] JacksonIn the event this information is protected by the Federal Confidentiality of Alcohol and Drug Abuse Patient Records regulations: The Federal rules restrict any use of the information to criminally investigate or prosecute any alcohol or drug abuse patient.[facility] JacksonIn the event this information is protected by the Federal Confidentiality of Alcohol and Drug Abuse Patient Records regulations: The Federal rules restrict any use of the information to criminally investigate or prosecute any alcohol or drug abuse patient.[facility] JacksonIn the event this information is protected by the Federal Confidentiality of Alcohol and Drug Abuse Patient Records regulations: The Federal rules restrict any use of the information to criminally investigate or prosecute any alcohol or drug abuse patient.[facility] JacksonIn the event this information is protected by the Federal Confidentiality of Alcohol and Drug Abuse Patient Records regulations: The Federal rules restrict any use of the information to criminally investigate or prosecute any alcohol or drug abuse patient.[facility] JacksonIn the event this information is protected by the Federal Confidentiality of Alcohol and Drug Abuse Patient Records regulations: The Federal rules restrict any use of the information to criminally investigate or prosecute any alcohol or drug abuse patient.[facility] JacksonIn the event this information is protected by the Federal Confidentiality of Alcohol and Drug Abuse Patient Records regulations: The Federal rules restrict any use of the information to criminally investigate or prosecute any alcohol or drug abuse patient.[facility] JacksonIn the event this information is protected by the Federal Confidentiality of Alcohol and Drug Abuse Patient Records regulations: The Federal rules restrict any use of the information to criminally investigate or prosecute any alcohol or drug abuse patient.[facility] [place]In the event this information is protected by the Federal Confidentiality of Alcohol and Drug Abuse Patient Records regulations: The Federal rules restrict any use of the information to criminally investigate or prosecute any alcohol or drug abuse patient.[facility] [place]In the event this information is protected by the Federal Confidentiality of Alcohol and Drug Abuse Patient Records regulations: The Federal rules restrict any use of the information to criminally investigate or prosecute any alcohol or drug abuse patient.[facility] [place]In the event this information is protected by the Federal Confidentiality of Alcohol and Drug Abuse Patient Records regulations: The Federal rules restrict any use of the information to criminally investigate or prosecute any alcohol or drug abuse patient.[facility] [place]In the event this information is protected by the Federal Confidentiality of Alcohol and Drug Abuse Patient Records regulations: The Federal rules restrict any use of the information to criminally investigate or prosecute any alcohol or drug abuse patient.[facility] [place]In the event this information is protected by the Federal Confidentiality of Alcohol and Drug Abuse Patient Records regulations: The Federal rules restrict any use of the information to criminally investigate or prosecute any alcohol or drug abuse patient.[facility] JacksonIn the event this information is protected by the Federal Confidentiality of Alcohol and Drug Abuse Patient Records regulations: The Federal rules restrict any use of the information to criminally investigate or prosecute any alcohol or drug abuse patient.[facility] [place]In the event this information is protected by the Federal Confidentiality of Alcohol and Drug Abuse Patient Records regulations: The Federal rules restrict any use of the information to criminally investigate or prosecute any alcohol or drug abuse patient.[facility] JacksonIn the event this information is protected by the Federal Confidentiality of Alcohol and Drug Abuse Patient Records regulations: The Federal rules restrict any use of the information to criminally investigate or prosecute any alcohol or drug abuse patient.[facility] [place]In the event this information is protected by the Federal Confidentiality of Alcohol and Drug Abuse Patient Records regulations: The Federal rules restrict any use of the information to criminally investigate or prosecute any alcohol or drug abuse patient.[facility] JacksonIn the event this information is protected by the Federal Confidentiality of Alcohol and Drug Abuse Patient Records regulations: The Federal rules restrict any use of the information to criminally investigate or prosecute any alcohol or drug abuse patient.[facility] JacksonIn the event this information is protected by the Federal Confidentiality of Alcohol and Drug Abuse Patient Records regulations: The Federal rules restrict any use of the information to criminally investigate or prosecute any alcohol or drug abuse patient.[facility] [place]In the event this information is protected by the Federal Confidentiality of Alcohol and Drug Abuse Patient Records regulations: The Federal rules restrict any use of the information to criminally investigate or prosecute any alcohol or drug abuse patient.[facility] [place]In the event this information is protected by the Federal Confidentiality of Alcohol and Drug Abuse Patient Records regulations: The Federal rules restrict any use of the information to criminally investigate or prosecute any alcohol or drug abuse patient.[facility] JacksonIn the event this information is protected by the Federal Confidentiality of Alcohol and Drug Abuse Patient Records regulations: The Federal rules restrict any use of the information to criminally investigate or prosecute any alcohol or drug abuse patient.[facility] [place] Reason for Visit (unrecogniz ed section and content) Reason Comments CARD Follow Up 6 Month [facility] FOLL OW UP Reason Onset Date Comments Community Monitoring Outreach 01/01/2022 [place] Telephonic Outreach Reason Comments Appointment Reason Onset Date Comments Community Monitoring Outreach 01/23/2022 CD M Outreach Reason Comments Edema possible cellulitis- pulmonology referred him Reason Onset Date Comments Community Monitoring Outreach 02/10/2022 [place] [facility] Telephonic CDM Outreach Reason Onset Date Comments Community Monitoring Outreach 02/25/2022 [place] Telephonic CDM Outreach Reason Onset Date Comments Community Monitoring Outreach 03/13/2022 [place] Telephonic CDM Outreach Reason Comments F/U 6 months Reason Comments Outpatient Colonoscopy Reason Comments Referral Request Reason Onset Date Comments Community Monitoring Outreach 04/02/2022 [place] Telephonic CDM Outreach Reason Onset Date Comments Community Monitoring Outreach 04/20/2022 Reason Onset Date Comments Community Monitoring Outreach 05/07/2022 Reason Onset Date Comments Community Monitoring Outreach 06/16/2022 Reason Comments F/U 6 Month S/p TAVR Reason Onset Date Comments Community Monitoring Outreach 07/17/2022 Reason Onset Date Comments Community Monitoring Outreach 2022 Reason Onset Date Comments Community Monitoring Outreachi 09/21/2022 Reason Onset Date Comments Refill Request 10/13/2022 Reason Onset Date Comments Community Monitoring Outreach 10/22/2022 Reason Onset Date Comments Community Monitoring Outreach 11/23/2022 Reason Onset Date Comments Community Monitoring Outreach 01/14/2023 Reason Onset Date Comments Community Monitoring Outreach 02/10/2023 Reason Comments Annual Medicare Wellness Reason Onset Date Comments Community Monitoring Outreach 08/12/2023 Reason Comments Pre-Op Exam Care Teams (unrecognized sec tion and content) Stone Unloader Relationship Specialty Start Date End Date Tomy Hernandez MD [address] [place], [place] [id number] PCP - General Internal Medicine 04/13/16 Terence Alan, weather anchorCharging Car Operator Internal Medicine 01/16/21 Gal Salmeron [address] [place] [address] Cardiology 05/28/21 Bran Russell [address] [place] [address] Pulmonary Disease 05/28/21 Stone Unloader Relationship Specialty Start Date End Date Tomy Hernandez MD [address] [place], [place] [id number] PCP - General Internal Medicine 04/13/16 Terence Alan, weather anchorCharging Car Operator Internal Medicine 01/16/21 Gal Salmeron [address] [place] [address] Cardiology 05/28/21 Bran Russell [address] [place] [address] Pulmonary Disease 05/28/21 Stone Unloader Relationship Specialty Start Date End Date Tomy Hernandez MD [address] [facility] [place] [address] PCP - General Internal Medicine 04/13/16 Terence Alan, weather anchorCharging Car Operator Internal Medicine 01/16/21 Gal Salmeron [address] [place] [address] Cardiology 05/28/21 Bran Russell [address] [place] [address] Pulmonary Disease 05/28/21 Stone Unloader Relationship Specialty Start Date End Date Tomy Hernandez MD [address] [facility] [place] [address] PCP - General Internal Medicine 04/13/16 Terence Alan, weather anchorCharging Car Operator Internal Medicine 01/16/21 Gal Salmeron [address] [place] [address] Cardiology 05/28/21 Bran Russell [address] [place] [address] Pulmonary Disease 05/28/21 Stone Unloader Relationship Specialty Start Date End Date Tomy Hernandez MD [address] [facility] [place] [address] PCP - General Internal Medicine 04/13/16 Terence Alan, weather anchorCharging Car Operator Internal Medicine 01/16/21 Gal Salmeron [address] [place] [address] Cardiology 05/28/21 Bran Russell [address] [place] [address] Pulmonary Disease 05/28/21 Stone Unloader Relationship Specialty Start Date End Date Tomy Hernandez MD [address] [facility] [place] [address] PCP - General Internal Medicine 04/13/16 Terence Alan, weather anchorCharging Car Operator Internal Medicine 01/16/21 Gal Salmeron [address] [place] [address] Cardiology 05/28/21 Bran Russell [address] [place] [address] Pulmonary Disease 05/28/21 Stone Unloader Relationship Specialty Start Date End Date Tomy Hernandez MD [address] [facility] [place] [address] PCP - General Internal Medicine 04/13/16 Terence Alan, weather anchorCharging Car Operator Internal Medicine 01/16/21 Gal Salmeron [address] [place] [address] Cardiology 05/28/21 Bran Russell [address] [place] [address] Pulmonary Disease 05/28/21 Stone Unloader Relationship Specialty Start Date End Date Tomy Hernandez MD [address] [facility] [place] [address] PCP - General Internal Medicine 04/13/16 Terence Alan, weather anchorCharging Car Operator Internal Medicine 01/16/21 Gal Salmeron [address] [place] [address] Cardiology 05/28/21 Bran Russell [address] [place] [address] Pulmonary Disease 05/28/21 Stone Unloader Relationship Specialty Start Date End Date Tomy Hernandez MD [address] [facility] [address] PCP - General Internal Medicine 04/13/16 Terence Alan, weather anchorCharging Car Operator Internal Medicine 01/16/21 Gal Salmeron [address] [place] [address] Cardiology 05/28/21 Bran Russell [address] [place] [address] Pulmonary Disease 05/28/21 Stone Unloader Relationship Specialty Start Date End Date Tomy Hernandez MD [address] [facility] [place] [address] PCP - General Internal Medicine 04/13/16 Terence Alan, weather anchorCharging Car Operator Internal Medicine 01/16/[address] Gal Salmeron [address] [place] [address] Cardiology 05/28/21 Bran Russell [address] [place] [address] Pulmonary Disease 05/28/21 Stone Unloader Relationship Specialty Start Date End Date Tomy Hernandez MD [address] [facility] [place] [address] PCP - General Internal Medicine 04/13/16 Familia Pratt, weather anchorCharging Car Operator Internal Medicine 01/16/21 Gal Salmeron [address] [place] [address] Cardiology 05/28/21 Bran Russell [address] [place] [address] Pulmonary Disease 05/28/21 Stone Unloader Relationship Specialty Start Date End Date Tomy Hernandez MD [address] [facility] [place] [address] PCP - General Internal Medicine 04/13/16 Familia Pratt, weather anchorCharging Car Operator Internal Medicine 01/16/[address] Gal Salmeron [address] [place] [address] Cardiology 05/28/21 Bran Russell [address] [place] [address] Pulmonary Disease 05/28/21 Stone Unloader Relationship Specialty Start Date End Date Tomy Hernandez MD [address] [facility] [place] [address] PCP - General Internal Medicine 04/13/16 Familia Pratt, weather anchorCharging Car Operator Internal Medicine 01/16/[address] Gal Sal[address]on [address] [place] [address] Cardiology 05/28/21 Bran Russell [address] [place] [address] Pulmonary Disease 05/28/21 Stone Unloader Relationship Specialty Start Date End Date Tomy Hernandez MD [address] [facility] [place] [address] PCP - General Internal Medicine 04/13/16 Familia Pratt, weather anchorCharging Car Operator Internal Medicine 01/16/21 Gal Salmeron [address] [place] [id number] Cardiology 05/28/21 Bran Russell MD [address] [place] [address] Pulmonary Disease 05/28/21 Stone Unloader Relationship Specialty Start Date End Date Tomy Hernandez MD [address] [facility] [place] [address] PCP - General Internal Medicine 04/13/16 Familia Pratt, weather anchorCharging Car Operator Internal Medicine 01/16/21 Gal Salmeron MD [address] [place] [address] Cardiology 05/28/21 Bran Russell MD [address] [place], [place] [address] Pulmonary Disease 05/28/21 Stone Unloader Relationship Specialty Start Date End Date Tomy Hernandez MD [address] [facility] [place] [address] PCP - General Internal Medicine 04/13/16 Familia Pratt, weather anchorCharging Car Operator Internal Medicine 01/16/21 Gal Salmeron MD [address] [place] [id number] Cardiology 05/28/21 Bran Russell MD [address] [place], [place] [address] Pulmonary Disease 05/28/21 FOR RECORDS PERTAINING TO PATIENTS WHO ARE OR HAVE BEEN ENROLLED IN A CHEMICAL DEPENDENCY/SUBSTANCEABUSE PROGRAM, SOME INFORMATION MAY BE OMITTED. This clinical summary was aggregated from multiple sources. Caution should be exercised in using it in the provision of clinical care. This summary normalizes information from multiple sources, and as a consequence, information in this document may materially change the coding, format and clinical context of patient data. In addition, data may be omitted in some cases. CLINICAL DECISIONS SHOULD BE BASED ON THE PRIMARY CLINICAL RECORDS. [facility] [facility]. provides no warranty or guarantee of the accuracy or completeness of information in this document.
== END | disposition home or self-care (01) ==
LOC: CVS 15:34
PROVIDERS: PCP Internal Medicine; Referring Provider Physician Assistant Surgical; Visit Provider Physician Assistant Surgical
DX: R22.42 Localized swelling, mass and lump, left lower limb (principal)
CPT/HCPCS: 93971

== ENCOUNTER → 2023-11-05 | Outpatient (CLI) | payer MEDICARE, OTHER, SELFPAY ==
[2021-12-15 12:04] VITALS: BMI 37.1
--- NOTE | 2023-11-05 10:54 | ECHOCS_ITS ---
Reason For Study: VALVE REPLACEMENT EVAL Procedure This was a 2D Doppler, Color Flow transthoracic echocardiogram. The study was technically difficult. Exam performed in department. Left Ventricle Normal LV size. Left ventricular systolic function is normal. The estimated ejection fraction is 65 %. No regional wall motion abnormalities noted. Right Ventricle Normal RV size. Normal systolic function. Atria The left atrium is moderately enlarged. The right atrium is moderately enlarged. Mitral Valve There is moderate mitral annular calcification. Mild (1+) mitral valve insufficiency. Tricuspid Valve Normal tricuspid valve. Mild (1+) tricuspid valve insufficiency. Pulmonary artery systolic pressure is 38 mmHg. Aortic Valve Peak aortic valve gradient 30 mmHg. Mean aortic valve gradient 17 mmHg. Bioprosthetic aortic valve. Pulmonic Valve Normal pulmonic valve. Mild (1+) pulmonic valve insufficiency. Great Vessels Normal aortic root. The pulmonary artery is normal size. Inferior vena cava collapse with sniff. Pericardium/Pleural No pericardial effusion. Medication 22 gauge I.V. with prn adaptor inserted into right arm. Diluted definity 3ml given slow IV push to enhance endocardial definition. MMode/2D Measurements & Calculations LVIDd: 5.5 cm IVSd: 1.0 cm LVOT diam: 2.0 cm LVIDs: 3.6 cm LVPWd: 1.1 cm RVDd: 4.3 cm FS: 34.0 % LVOT area: 3.3 cm2 Ao root diam: 3.3 cm LAV(MOD-bp): 97.0 ml LVAd ap4: 25.0 cm2 LAV(MOD-bp) Indexed: 44.6 ml/m2 LVLd ap4: 6.9 cm LAV(MOD-sp2): 92.2 ml EDV(MOD-sp4): 76.4 ml LAV(MOD-sp4): 95.0 ml EDV(sp4-el): 77.2 ml LVAs ap4: 13.5 cm2 LVLs ap4: 5.9 cm ESV(MOD-sp4): 26.4 ml ESV(sp4-el): 26.2 ml EF(MOD-sp4): 65.4 % EF(sp4-el): 66.0 % SV(MOD-sp4): 50.0 ml SV(sp4-el): 51.0 ml LA A4 area: 30.1 cm2 LA dimension(2D): 5.5 cm RA A4 area: 27.1 cm2 TAPSE: 2.4 cm Doppler Measurements & Calculations MV E max michael: 132.4 cm/sec Ao V2 max: 272.1 cm/sec LV V1 max: 101.1 cm/sec Ao max P.9 mmHg LV V1 max P.1 mmHg Ao V2 mean: 192.9 cm/sec LV V1 mean P.0 mmHg Ao mean P.9 mmHg LV V1 mean: 64.6 cm/sec Ao V2 VTI: 61.2 cm LV V1 VTI: 19.2 cm AV (velocity ratio): 0.31 PAIGE(I,D): 1.0 cm2 PAIGE(V,D): 1.2 cm2 SV(LVOT): 62.5 ml PA V2 max: 106.1 cm/sec TR max michael: 295.6 cm/sec TR max P.9 mmHg ECHO/Echo Complete W/ Contrast Interpretation Summary Normal LV size. Left ventricular systolic function is normal. The estimated ejection fraction is 65 %. Bioprosthetic aortic valve. Mean aortic valve gradient 17 mmHg. Pulmonary artery systolic pressure is 38 mmHg. Contrast injection was performed. Ordering Physician: Minal Hannon Referring Physician: LEODAN CARDONA Performed By: Jessica Marino RDCS
== END | disposition home or self-care (01) ==
PROVIDERS: PCP Internal Medicine; Referring Provider Nurse Practitioner Gerontology; Visit Provider Nurse Practitioner Gerontology
DX: Z95.2 Presence of prosthetic heart valve (principal)
CPT/HCPCS: 93306; Q9957; A4216; C8929

== ENCOUNTER 2023-11-08 12:55 | Outpatient (RCR) | payer MEDICARE, OTHER, SELFPAY ==
[2021-12-15 12:04] VITALS: BMI 37.1
[2023-11-08 13:11] VITALS: BP 159/77; PULSE 90; RESP 18; TEMP 36.6; BMI 37.5
--- NOTE | 2023-11-08 13:43 | PCM.WC.HP ---
History of Present Illness Date of Service: 11/08/23 Chief Complaint: Swelling, edema, chronic venous insufficiency, venous stasis dermatitis, and venous ulcerations -left lower extremity History of Wound: This is a 78-year-old male with multiple pre-existing medical problems. He presents with a long history of swelling and edema in his lower extremities bilaterally. He wears graduated compression stockings on a daily basis, which are of 15 to 20 mmHg compression. Nonetheless, approximately 1 month ago, noting swelling and edema in his left lower extremity, he subsequently developed blisters on the left pretibial surface, which have developed into a cluster of open ulcerations. He has been evaluated by his primary care physician and treated with a 10-day course of cephalexin. He was thought to have cellulitis. The patient is not very active. He has recently undergone left total knee replacement surgery in August 2023. He sits a great deal of each day. He sleeps in a recliner due to COPD and obstructive sleep apnea. He denies a history of thrombophlebitis. He is on chronic systemic anticoagulation with Eliquis, due to atrial fibrillation. His pre-existing medical problems are listed below, as are his prior surgical procedures. A venous duplex examination was performed on September 16, 2023, which was negative for thrombophlebitis in the left leg. Laboratory studies were last performed on September 02, 2023, and have been reviewed. [facility] Medical History Alcohol use Arthritis Atherosclerotic heart disease of [place] coronary artery without angina pectoris Atrial fibrillation Bilateral pulmonary embolism BPH (benign prostatic hyperplasia) Cardiology follow-up encounter Chronic venous insufficiency COPD (chronic obstructive pulmonary disease) Carcamo phlebectatica paraplantaris COVID-19 (~09/2020) Dietary restriction Dyspnea on exertion 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 Former smoker High cholesterol History of atrial fibrillation History of CHF (congestive heart failure) History of COVID-19 History of echocardiogram History of edema History of left heart catheterization (LHC) (~05/06/21) History of pain when walking History of pulmonary embolism History of stress test History of TIA (transient ischemic attack) History of transcatheter aortic valve replacement (TAVR) (~07/10/21) Hyperlipidemia Hypertension Left leg swelling Left-sided weakness Leg edema, left Non-rheumatic mitral valve stenosis Nonrheumatic aortic (valve) stenosis Nonrheumatic tricuspid (valve) insufficiency Obesity (BMI 30-39.9) On home oxygen therapy NOAM (obstructive sleep apnea) Other secondary pulmonary hypertension Persistent atrial fibrillation Prostate disease Pulmonary embolism Solitary pulmonary nodule Stage 1 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 TIA (transient ischemic attack) Venous stasis dermatitis Venous ulcer of left leg Wears dentures Wears glasses Wears hearing aid Home Medications finasteride 5 mg tablet 5 mg PO DAILY prostate 09/24/15 [History Last Taken 09/01/23] tamsulosin 0.4 mg capsule (Flomax) 0.8 mg PO QHS prostate 02/28/18 [History Last Taken 08/31/23] Disability Placard #1 ea 01/01/21 [Rx Last Taken Unknown] aspirin 81 mg capsule 81 mg PO DAILY 05/06/21 [History Last Taken 08/28/23] inulin 2,500 mg-vitamin D3 500 unit chewable tablet (Fiber Gummies with Vitamin D3) 2 tab PO DAILY 08/12/23 [History Last Taken 08/31/23] polyethylene glycol 3350 17 gram/dose oral powder (Miralax) 17 g PO DAILY 08/12/23 [History Last Taken 08/31/23] atorvastatin 10 mg tablet 10 mg PO QDAY #90 tabs 08/27/23 [Rx Last Taken 08/31/23] diltiazem HCl 120 mg tablet 120 mg PO BID 90 days #180 tabs 08/27/23 [Rx Last Taken 09/01/23] furosemide 40 mg tablet 40 mg PO DAILY fluid #90 tabs 08/27/23 [Rx Last Taken 08/31/23] metoprolol tartrate 75 mg tablet 75 mg PO BID #180 tabs 08/27/23 [Rx Last Taken 09/01/23] potassium chloride 20 mEq tablet,extended release(part/cryst) (Klor-Con M) 20 meq PO DAILY #90 tabs 08/27/23 [Rx Last Taken 08/31/23] acetaminophen 500 mg tablet 1,000 mg (2 x 500 mg) PO TID 14 days #84 tabs 09/02/23 [Rx Last Taken Unknown] oxycodone 5 mg tablet 5 - 10 mg (1 - 2 x 5 mg) PO Q4H PRN PRN Pain Score 4-10 5 days #42 tabs 09/02/23 [Rx Last Taken Unknown] sennosides 8.6 mg-docusate sodium 50 mg tablet (Stool Softener-Stimulant Laxative) 2 tab PO BID 3 days #0 tabs 09/02/23 [Rx Last Taken Unknown] apixaban 5 mg tablet 5 mg PO BID blood thinner #60 tabs 11/01/23 [Rx Last Taken Unknown] Allergy/AdvReac Type Severity Reaction Status Date / Time lisinopril AdvReac Intermediate cough Verified 09/01/23 07:09 Family History Mother CVA (cerebral vascular accident) Diabetes Other Family history of CVA Surgical History H/O oral surgery History of colonoscopy (~2010) History of heart surgery History of left cataract surgery Social History Smoking Status: Former smoker Tobacco: How many years used: 40 how long ago did patient quit smokin second hand exposure: No alcohol intake: never substance use type: does not use caffeine: Yes Type: tea what type of physical activity do you participate in: none seatbelt use: always do you feel safe at home: Yes Vital Signs Vital Signs Vital Signs: 11/08/23 13:11 Temperature 97.8 F Temperature Source Temporal Pulse Rate 90 Respiratory Rate 18 Blood Pressure 159/77 H Blood Pressure Mean 104 Weight Weight: 240 lb Body Mass Index (BMI) 37.5 Physical Exam Const alert, oriented x3, no apparent distress and well nourished Constitutional Narrative: The patient is obese. His BMI is 38. General Appearance: cooperative, comfortable, well kempt and well developed Orientation / Consciousness: awake, oriented to person, oriented to place and oriented to time Exam Limitations: no limitations Nutritional Appearance: overweight HEENT normocephalic and head/scalp atraumatic Head and Scalp: normal to inspection, normocephalic and atraumatic Face and Sinus: normal facial exam Nose: external nose normal External Ear: external ears normal Eyes PERRL and EOMs intact bilaterally General Eye: normal appearance of both eyes Neck full ROM Resp normal respiratory effort, normal air movement, no retractions and no use of accessory muscles Effort and Inspection: able to speak in complete sentences Extremity no calf tenderness General Extremity: Negative for clubbing or cyanosis Skin Wound Narrative: Mild swelling and edema are noted in the patient's left lower extremity. Carcamo phlebectatica is noted near the medial malleoli bilaterally. A large cluster of ulcerations are noted on the patient's left pretibial surface. There is a moderate amount of bioburden. Dimensions are documented elsewhere. There is no obvious sign of infection or cellulitis. Neuro oriented x3, CN's II-XII intact bilaterally, moves all extremities and no focal motor deficits Sensorium / Orientation: awake, alert, oriented to person, oriented to place and oriented to time Psych Appearance: grossly normal and appropriate Attitude: calm Activity / Motor Behavior: appropriate eye contact Speech: normal speech Mood & Affect: euthymic mood Thought Process: normal thought process Thought Content: normal thought content Attention / Concentration: attention grossly intact Debridement Note Debridement Note Wound debrided: Clustered ulcerations-left pretibial surface Laterality: Left Type of Debridement: Excisional debridement Anesthesia Used: 5% Lidocaine Gel Depth: Down to and including healthy tissue and in the subcutaneous layer Percentage of wound debrided: 100 Instrument Used: 5mm curette Severity: Fat Layer Exposed Amount of bleeding with debridement: Mild Bleeding Controlled with: Compression and gauze Patient tolerated procedure: Patient tolerated procedure well Post-Debridement Measurements and Additional Note: Post-Debridement Measurements/Treatment - Nurse 1 - General Ulcer Assessment Start: 11/08/23 13:11 Freq: Status: Active Protocol: [email or web address] Activity Type Activity Date Activity User E-sign Co-sign Detail Recorded Client Recorded Date Recorded By Document 11/08/23 13:11 PL Tablet 11/08/23 13:22 PL 11/08/23 13:11 - Today's Visit Information Type of service Initial Visit Arrival Mode Ambulatory Transfer Assistance None Patient Identification Verified (Name & Yes ) Patient Requires Transmission-Based No Precautions Safety Precautions NA Height and Weight Height 5 ft 7 in Weight 240 lb Weight in Pounds 240.0 lbs Body Mass Index (BMI) 37.5 BMI Classification Obese BSA - [place] 2.18 Vital Signs Temperature (97.8 F-99.1 F) 97.8 F Temperature Source Temporal Pulse Rate (60-100) 90 Respiratory Rate (12-18) 18 Blood Pressure (90/60-120/80) 159/77 H Blood Pressure Mean 104 History Since Last Visit- (Skip if this is Patient's initial visit) Have you changed medications since your No last visit? Any new allergies or adverse reactions No Had a fall/change in ADL's that may No increase risk of falls Signs or symptoms of abuse and/or No neglect since last visit Have you been in the hospital since your No last visit? Has dressing in place as prescribed Yes Has compression in place as prescribed Yes Has offloadiing in place as prescribed N/A Experienced any changes in pain level or No management Pain Scale: 0-10 Numeric Is Patient Pain Free? Yes WC - Nurse 1 - General Ulcer Measurement Start: 11/08/23 13:11 Freq: Status: Active Protocol: Activity Type Activity Date Activity User E-sign Co-sign Detail Recorded Client Recorded Date Recorded By Document 11/08/23 13:11 PL Tablet 11/08/23 13:22 PL 11/08/23 13:11 Wound Center Nurse 1 #1 LLE ant -Current Size (cm) - Length 8.5 -Current Size (cm) - Width 9.5 -Current Size (cm) - Depth 0.1 -Total Square Cm 80.75 -Epithelialization Small 1-33% -Tunneling No -Undermining/Tunneling No -Circular Undermining No -Classification - Thickness Full Thickness without Exposed Support Structure -Exudate Amt Medium -Exudate Type Serosanguineous -Granulation Amt Medium (34-66%) -Granulation Quality Pale,[place] -Slough/Fibrin Yes -Necrosis Amt Medium (34-66%) -Necrotic Tissue Type Adherent Slough -Ulcer Cleansing Soap and Water -Anesthetic Used 5% Lidocaine Gel Assessment/Plan Assessment/Plan (1) Venous ulcer of left leg: CODE(S): I83.029 - Varicose veins of left lower extremity with ulcer of unspecified site; L97.929 - Non-pressure chronic ulcer of unspecified part of left lower leg with unspecified severity (2) Venous stasis dermatitis: CODE(S): I87.2 - Venous insufficiency (chronic) (peripheral) (3) Left leg swelling: CODE(S): M79.89 - Other specified soft tissue disorders (4) Leg edema, left: CODE(S): R60.0 - Localized edema (5) Chronic venous insufficiency: CODE(S): I87.2 - Venous insufficiency (chronic) (peripheral) (6) Carcamo phlebectatica paraplantaris: CODE(S): R09.89 - Other specified symptoms and signs involving the circulatory and respiratory systems (7) Status post total left knee replacement: CODE(S): Z96.652 - Presence of left artificial knee joint (8) Hx of adenomatous colonic polyps: CODE(S): Z86.010 - Personal history of colonic polyps (9) Anticoagulant long-term use: CODE(S): Z79.01 - jail (current) use of anticoagulants (10) Osteoarthritis of left knee: CODE(S): M17.12 - Unilateral primary osteoarthritis, left knee (11) Atrial fibrillation with RVR: CODE(S): I48.91 - Unspecified atrial fibrillation (12) History of TIA (transient ischemic attack): CODE(S): Z86.73 - Personal history of transient ischemic attack (TIA), and cerebral infarction without residual deficits (13) PAH (pulmonary artery hypertension): CODE(S): I27.21 - Secondary pulmonary arterial hypertension (14) Emphysema with chronic bronchitis: CODE(S): J44.9 - Chronic obstructive pulmonary disease, unspecified (15) History of transcatheter aortic valve replacement (TAVR): CODE(S): Z95.2 - Presence of prosthetic heart valve (16) Atherosclerotic heart disease of [place] coronary artery without angina pectoris: CODE(S): I25.10 - Atherosclerotic heart disease of [place] coronary artery without angina pectoris (17) Dyspnea on exertion: CODE(S): R06.00 - Dyspnea, unspecified (18) Non-rheumatic mitral valve stenosis: CODE(S): I34.2 - Nonrheumatic mitral (valve) stenosis (19) BPH (benign prostatic hyperplasia): CODE(S): N40.0 - Benign prostatic hyperplasia without lower urinary tract symptoms (20) History of left cataract surgery: CODE(S): Z98.42 - Cataract extraction status, left eye (21) Left-sided weakness: CODE(S): R53.1 - Weakness (22) Hyperlipidemia: CODE(S): E78.5 - Hyperlipidemia, unspecified QUALIFIERS: Hyperlipidemia type: unspecified Qualified Code(s): E78.5 - Hyperlipidemia, unspecified (23) Stage 1 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: CODE(S): J44.9 - Chronic obstructive pulmonary disease, unspecified (24) Emphysema of lung: CODE(S): J43.9 - Emphysema, unspecified (25) NOAM (obstructive sleep apnea): CODE(S): G47.33 - Obstructive sleep apnea (adult) (pediatric) (26) Hypertension: CODE(S): I10 - Essential (primary) hypertension QUALIFIERS: Hypertension type: essential hypertension Qualified Code(s): I10 - Essential (primary) hypertension (27) Persistent atrial fibrillation: CODE(S): I48.1 - Persistent atrial fibrillation (28) Nonrheumatic aortic (valve) stenosis: CODE(S): I35.0 - Nonrheumatic aortic (valve) stenosis (29) Nonrheumatic tricuspid (valve) insufficiency: CODE(S): I36.1 - Nonrheumatic tricuspid (valve) insufficiency (30) Atrial fibrillation: CODE(S): I48.91 - Unspecified atrial fibrillation QUALIFIERS: Atrial fibrillation type: persistent Qualified Code(s): I48.1 - Persistent atrial fibrillation (31) History of pulmonary embolism: CODE(S): Z86.711 - Personal history of pulmonary embolism (32) Obesity (BMI 30-39.9): CODE(S): E66.9 - Obesity, unspecified PLAN: Plan This is a 78-year-old male with multiple pre-existing medical problems. He presented with a large area of clustered ulcerations on the left pretibial surface, which have been present for approximately 1 month. These initially occurred as blisters, which have subsequently unroofed, resulting in these clustered ulcerations. The patient has been treated by his primary care physician with a 10-day course of cephalexin. It is learned that the patient typically sleeps in a recliner. He is not very active, and spends a great deal of time each day sitting. He wears graduated compression stockings of 15 to 20 mmHg compression. Nonetheless, he has developed these ulcerations secondary to blisters which formed approximately 1 month ago. An excisional debridement has been performed today. The patient tolerated the debridement well. We are to implement the use of Promogran topically. A 3M 2 layer compression wrap is to be applied to the patient's left lower extremity today, and will be changed twice weekly. The patient is to continue wearing his graduated compression stockings of 15 to 20 mmHg on his right leg, on a daily basis. A lengthy discussion has been undertaken with the patient and his with regard to the appropriate conservative treatment measures relative to his lower extremity swelling, edema, and chronic venous insufficiency. Leg elevation has been discussed. He is to elevate his lower extremities to heart level, or higher. This is to be accomplished during both daytime and nighttime hours. Prolonged idle sitting has been discouraged. Activity has been encouraged. Weight loss has also been discussed. The patient's questions have been answered. He is to implement the recommended measures, and will return in 3 days for replacement of the dressings and wrap. He will be reevaluated in 1 week. Total time: 48 minutes
== END 2023-11-11 23:59 | disposition home or self-care (01) ==
LOC: WC 12:55
PROVIDERS: PCP Internal Medicine; Referring Provider Internal Medicine; Visit Provider Podiatrist Foot & Ankle Surgery
DX: I83.028 Varicose veins of left lower extremity with ulcer other part of lower leg (principal); L97.822 Non-pressure chronic ulcer of other part of left lower leg with fat layer exposed; J43.9 Emphysema, unspecified; I48.19 Other persistent atrial fibrillation; E78.5 Hyperlipidemia, unspecified; Z79.01 Long term (current) use of anticoagulants; Z68.38 Body mass index [BMI] 38.0-38.9, adult; I10 Essential (primary) hypertension; I25.10 Atherosclerotic heart disease of native coronary artery without angina pectoris; E66.9 Obesity, unspecified; N40.0 Benign prostatic hyperplasia without lower urinary tract symptoms; Z87.891 Personal history of nicotine dependence; R60.0 Localized edema; G47.33 Obstructive sleep apnea (adult) (pediatric)
CPT/HCPCS: 11042; 11045; 29581; 99213; G0463

== ENCOUNTER 2023-12-01 10:45 | Outpatient (RCR) | payer MEDICARE, OTHER, SELFPAY ==
[2021-12-15 12:04] VITALS: BMI 37.1
[2023-11-12 00:42] VITALS: BP 159/77; PULSE 90; RESP 18; TEMP 36.6; BMI 37.5
[2023-11-12 11:47] VITALS: BP 147/60; PULSE 74; RESP 18; TEMP 36.7; BMI 37.5
[2023-11-17 14:11] VITALS: BP 162/74; PULSE 97; RESP 20; TEMP 36.1; BMI 37.5
--- NOTE | 2023-11-17 16:25 | PCM.WC.PN ---
History of Present Illness Date of Service: 11/17/23 Chief Complaint: Swelling, edema, chronic venous insufficiency, venous stasis dermatitis, and venous ulcerations -left lower extremity History of Wound: This is a 78-year-old male with multiple pre-existing medical problems. He presents with a long history of swelling and edema in his lower extremities bilaterally. He wears graduated compression stockings on a daily basis, which are of 15 to 20 mmHg compression. Nonetheless, approximately 1 month ago, noting swelling and edema in his left lower extremity, he subsequently developed blisters on the left pretibial surface, which have developed into a cluster of open ulcerations. He has been evaluated by his primary care physician and treated with a 10-day course of cephalexin. He was thought to have cellulitis. The patient is not very active. He has recently undergone left total knee replacement surgery in August 2023. He sits a great deal of each day. He sleeps in a recliner due to COPD and obstructive sleep apnea. He denies a history of thrombophlebitis. He is on chronic systemic anticoagulation with Eliquis, due to atrial fibrillation. His pre-existing medical problems are listed below, as are his prior surgical procedures. A venous duplex examination was performed on September 16, 2023, which was negative for thrombophlebitis in the left leg. Laboratory studies were last performed on September 02, 2023, and have been reviewed. Subjective Subjective Mr. Marrero is a 78-year-old male seen at the wound care center today at [facility] follow-up evaluation of bilateral leg swelling and full-thickness ulcerations bilateral extremity. Patient was seen by an outside provider who is doing compression wraps and debridements. Patient states that the wounds are improving. Patient is not diabetic. Denies trauma. Denies constitutional symptoms. No other pedal complaints at this time. Objective Data Objective Data Vital Signs: Vital Signs Temp Pulse Resp BP 97 F L 97 20 H 162/74 H 11/17/23 14:11 11/17/23 14:11 11/17/23 14:11 11/17/23 14:11 Weight: 108.862 kg Body Mass Index (BMI) 37.5 Physical Exam Narrative Vascular: DP and PT pulses are palpable to the bilateral lower extremity. +1 pitting edema appreciated bilateral lower extremity. Blanchable erythema is appreciated to the left lower extremity. Skin temperature great is warm to warm from proximal ankle to distal digits bilateral. Cap refill time is brisk. Neurological: Light touch and epicritic sensation is intact bilateral. Dermatological:Full-thickness ulceration to left anterior lower extremity. Ulceration measures 6.5 x 6.0 x 0.1 cm. Wound base is 100% granular nature. No sign of infection. Evidence of sanguinous drainage. No probe to bone. No sign of infection. Excisional debridement down to including subcutaneous tissue with a number 5 mm dermal curette to the full-thickness ulceration to the left anterior lower extremity. Predebridement measurement 6.0 x 5.7 x 0.1 cm. Postdebridement measurement is 6.5 x 6.0 x 0.1 cm. Musculoskeletal: Muscle strength 5-5 in all quadrants bilateral. No pain to palpation to full-thickness ulceration to left anterior leg. No pain with calf compression. Debridement Note Debridement Note Debridement Free Text: Excisional debridement down to including subcutaneous tissue with a number 5 mm dermal curette to the full-thickness ulceration to the left anterior lower extremity. Predebridement measurement 6.0 x 5.7 x 0.1 cm. Postdebridement measurement is 6.5 x 6.0 x 0.1 cm. 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 ) Arrival Mode Ambulatory Ambulatory Transfer Assistance None None Patient Identification Verified (Name & Yes Yes ) Patient Requires Transmission-Based No No Precautions Height and Weight Body Mass Index (BMI) 37.5 37.5 BMI Classification Obese Obese Vital Signs Temperature (97.8 F-99.1 F) 98.1 F 97 F L Temperature Source Temporal Temporal Pulse Rate (60-100) 74 97 Pulse Location Monitor Monitor Respiratory Rate (12-18) 18 20 H Respiratory rate source Observation Observation Blood Pressure (90/60-120/80) 147/60 H 162/74 H Blood Pressure Mean (mm Hg) 89 103 Source Monitor Monitor Position Semi-Fowlers Blood Pressure Location Left Arm History Since Last Visit- (Skip if this is Patient's initial visit) Have you changed medications since your No No last visit? Any new allergies or adverse reactions No No Had a fall/change in ADL's that may No No increase risk of falls Signs or symptoms of abuse and/or No No neglect since last visit Have you been in the hospital since your No No last visit? Has dressing in place as prescribed Yes Yes Has compression in place as prescribed Yes Yes Has offloadiing in place as prescribed No N/A Experienced any changes in pain level or No No management Pain Scale: 0-10 Numeric Is Patient Pain Free? Yes Yes WC - Nurse 1 - General Ulcer Measurement Start: 11/12/23 11:47 Freq: Status: Active Protocol: Activity Type Activity Date Activity User E-sign Co-sign Detail Recorded Client Recorded Date Recorded By Document 11/12/23 11:47 RB [id number] 11/12/23 11:51 RB Document 11/17/23 14:11 DL Desktop 11/17/23 14:20 DL 11/12/23 11/17/23 11:47 14:11 Wound Center Nurse 1 #1 LLE ant -Combined with other wound No -Current Size (cm) - Length 7.8 -Current Size (cm) - Width 8.8 -Current Size (cm) - Depth 0.1 -Total Square Cm 68.64 -Photo Taken No -Exudate Amt Medium -Exudate Type Serosanguineous -Wound Margin Distinct, Outline Attached -Granulation Amt Large (67-100%) -Granulation Quality Red -Necrosis Amt Small (1-33%) -Necrotic Tissue Type Adherent Slough -Structure Exposed N/A -Texture (Anni-wound Skin Appearance) Scarring -Moisture (Anni-wound Skin Appearance) No Abnormality -Color (Anni-wound Skin Appearance) Hemosiderin Staining -Temperature (Anni-wound Skin No Abnormality Appearance) (Pt Warm) -Tenderness on Palpation (Anni-wound No Skin Appearance) -Ulcer Cleansing Soap and Water -Foul Odor after Cleansing No -Anesthetic Used 5% Lidocaine Gel Lower Limb Edema Present Yes Left Calf (cm) 40 38.2 Left Ankle (cm) 23.2 23.3 - Nurse 2 - General Ulcer CM Notes Start: 11/12/23 11:47 Freq: Status: Active Protocol: Activity Type Activity Date Activity User E-sign Co-sign Detail Recorded Client Recorded Date Recorded By Document 11/17/23 14:39 Desktop 11/17/23 14:40 11/17/23 14:39 Wound Center Nurse 2 #1 LLE ant -Time 14:39 -Correct Patient Yes -Correct Side, Site, Position Yes -Correct Procedure Yes -Procedure Performed Yes -Type of Procedure Debridement -Clinical Debridement Subcutaneous -Tissue Removed Subcutaneous -Post Debridement (cm) - Length 6.5 -Post Debridement (cm) - Width 6 -Post Debridement (cm) - Depth 0.1 -Total Square (Post) (cm) 39.0 -Area of Debridement (cm) - Length 6.5 -Area of Debridement (cm) - Width 6.0 -Total Square (Area) (cm) 39.00 -Tunneling No -Undermining/Tunneling No -Circular Undermining No -Wound/Ulcer Outcome Not Healed -Ulcer Cleansing Rinsed/ Irrigated with Saline -Foul Odor after Cleansing No -Bioengineered Tissue No -Bleeding Controlled with Pressure -Treatment Response Procedure Tolerated Well -Offloading No -Debridement - Subq, 1st 20sq cm Yes -Debridement, SubQ, ea addt'l 20sq cm 1 or part thereof Pain Scale: 0-10 Numeric Is Patient Pain Free? Yes - Nurse 3 - General Ulcer D/C NN Start: 11/12/23 11:47 Freq: Status: Active Protocol: Activity Type Activity Date Activity User E-sign Co-sign Detail Recorded Client Recorded Date Recorded By Document 11/12/23 11:51 RB [id number] 11/12/23 11:53 RB Document 11/17/23 14:53 [facility] Desktop 11/17/23 14:54 [facility] 11/12/23 11/17/23 11:51 14:53 Wound Care Center Nurse 3 #1 LLE ant -Ulcer Cleansing Wound Cleanser Rinsed/ Irrigated with Saline -Foul Odor after Cleansing No -Primary Dressing Applied Promogran C Hydrogel ($), NonAdherent Contact Layer -Other Dressing ABD -Primary Dressing Covered/Secured with Dry Gauze -Promogran 1 Left -Multi-Layered Wrap Application Multi-Layer Multi-Layer Comp - Left ($) Comp - Left ($) Treatment Response Procedure Procedure Tolerated Well Tolerated Well Pain Scale: 0-10 Numeric Is Patient Pain Free? Yes Yes WC - Visit Discharge Discharge Condition Stable Stable Ambulatory Status Ambulatory Ambulatory,Cane Transportation Private Auto Private Auto Accompanied by Medication Reconcilliation completed & No provided to patient/care provider Clinical Summary of Care Provided Yes Assessment/Plan Assessment/Plan (1) Non-pressure chronic ulcer of other part of left lower leg with fat layer exposed: CODE(S): L97.822 - Non-pressure chronic ulcer of other part of left lower leg with fat layer exposed PLAN: Patient was examined and evaluated. All findings were discussed with the patient. All questions were answered to the patient's satisfaction. Excisional debridement down to including subcutaneous tissue with a number 5 mm dermal curette to the full-thickness ulceration to the left anterior lower extremity. Predebridement measurement 6.0 x 5.7 x 0.1 cm. Postdebridement measurement is 6.5 x 6.0 x 0.1 cm. The ulceration was dressed with Adaptic and hydrogel followed by dry sterile dressing and single-layer Tubigrip. Will begin authorization for amniotic skin graft substitute. We believe that the skin graft substitute will aid in the rapid healing of the patient's full-thickness ulceration to the left lower extremity. Patient educated on its use. Follow-up at the wound care center with Dr. Butler in 1 week. (2) Other specified peripheral vascular diseases: CODE(S): I73.89 - Other specified peripheral vascular diseases
--- NOTE | 2023-11-24 14:35 | PCM.WC.PN ---
History of Present Illness Date of Service: 11/24/23 Chief Complaint: Swelling, edema, chronic venous insufficiency, venous stasis dermatitis, and venous ulcerations -left lower extremity History of Wound: This is a 78-year-old male with multiple pre-existing medical problems. He presents with a long history of swelling and edema in his lower extremities bilaterally. He wears graduated compression stockings on a daily basis, which are of 15 to 20 mmHg compression. Nonetheless, approximately 1 month ago, noting swelling and edema in his left lower extremity, he subsequently developed blisters on the left pretibial surface, which have developed into a cluster of open ulcerations. He has been evaluated by his primary care physician and treated with a 10-day course of cephalexin. He was thought to have cellulitis. The patient is not very active. He has recently undergone left total knee replacement surgery in August 2023. He sits a great deal of each day. He sleeps in a recliner due to COPD and obstructive sleep apnea. He denies a history of thrombophlebitis. He is on chronic systemic anticoagulation with Eliquis, due to atrial fibrillation. His pre-existing medical problems are listed below, as are his prior surgical procedures. A venous duplex examination was performed on September 16, 2023, which was negative for thrombophlebitis in the left leg. Laboratory studies were last performed on September 02, 2023, and have been reviewed. Subjective Subjective Mr. Marrero is a 78-year-old male presenting to clinic today for follow-up evaluation of full-thickness ulceration to the left leg. Patient has been compliant and left his multilayer compression bandage clean dry and intact. He admits to great improvement. He denies any trauma. Denies constitutional symptoms. Other pedal complaints at this time. Objective Data Objective Data Vital Signs: Vital Signs Temp Pulse Resp BP 97 F L 97 20 H 162/74 H 11/17/23 14:11 11/17/23 14:11 11/17/23 14:11 11/17/23 14:11 Weight: 108.862 kg Body Mass Index (BMI) 37.5 Physical Exam Narrative ascular: DP and PT pulses are palpable to the bilateral lower extremity. +1 pitting edema appreciated bilateral lower extremity. Blanchable erythema is appreciated to the left lower extremity. Skin temperature great is warm to warm from proximal ankle to distal digits bilateral. Cap refill time is brisk. Neurological: Light touch and epicritic sensation is intact bilateral. Dermatological:Full-thickness ulceration to left anterior lower extremity. Ulceration measures 0.1 x 0.1 x 0.1 cm. Wound base is 100% granular nature. No sign of infection. Evidence of sanguinous drainage. No probe to bone. No sign of infection. Excisional debridement down to including dermis with a number 5 mm dermal curette to the full-thickness ulceration to the left anterior lower extremity. Predebridement measurement callus. Postdebridement measurement is 0.1 x 0.1 x 0.1 cm. Musculoskeletal: Muscle strength 5-5 in all quadrants bilateral. No pain to palpation to full-thickness ulceration to left anterior leg. No pain with calf compression. Debridement Note Debridement Note Debridement Free Text: Excisional debridement down to including dermis with a number 5 mm dermal curette to the full-thickness ulceration to the left anterior lower extremity. Predebridement measurement callus. Postdebridement measurement is 0.1 x 0.1 x 0.1 cm. 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 ) Arrival Mode Ambulatory Ambulatory Transfer Assistance None None Patient Identification Verified (Name & Yes Yes ) Patient Requires Transmission-Based No No Precautions Height and Weight Body Mass Index (BMI) 37.5 37.5 BMI Classification Obese Obese Vital Signs Temperature (97.8 F-99.1 F) 98.1 F 97 F L Temperature Source Temporal Temporal Pulse Rate (60-100) 74 97 Pulse Location Monitor Monitor Respiratory Rate (12-18) 18 20 H Respiratory rate source Observation Observation Blood Pressure (90/60-120/80) 147/60 H 162/74 H Blood Pressure Mean (mm Hg) 89 103 Source Monitor Monitor Position Semi-Fowlers Blood Pressure Location Left Arm History Since Last Visit- (Skip if this is Patient's initial visit) Have you changed medications since your No No last visit? Any new allergies or adverse reactions No No Had a fall/change in ADL's that may No No increase risk of falls Signs or symptoms of abuse and/or No No neglect since last visit Have you been in the hospital since your No No last visit? Has dressing in place as prescribed Yes Yes Has compression in place as prescribed Yes Yes Has offloadiing in place as prescribed No N/A Experienced any changes in pain level or No No management Pain Scale: 0-10 Numeric Is Patient Pain Free? Yes Yes WC - Nurse 1 - General Ulcer Measurement Start: 11/12/23 11:47 Freq: Status: Active Protocol: Activity Type Activity Date Activity User E-sign Co-sign Detail Recorded Client Recorded Date Recorded By Document 11/12/23 11:47 RB [id number] 11/12/23 11:51 RB Document 11/17/23 14:11 DL Desktop 11/17/23 14:20 DL 11/12/23 11/17/23 11:47 14:11 Wound Center Nurse 1 #1 LLE ant -Combined with other wound No -Current Size (cm) - Length 7.8 -Current Size (cm) - Width 8.8 -Current Size (cm) - Depth 0.1 -Total Square Cm 68.64 -Photo Taken No -Exudate Amt Medium -Exudate Type Serosanguineous -Wound Margin Distinct, Outline Attached -Granulation Amt Large (67-100%) -Granulation Quality Red -Necrosis Amt Small (1-33%) -Necrotic Tissue Type Adherent Slough -Structure Exposed N/A -Texture (Anni-wound Skin Appearance) Scarring -Moisture (Anni-wound Skin Appearance) No Abnormality -Color (Anni-wound Skin Appearance) Hemosiderin Staining -Temperature (Anni-wound Skin No Abnormality Appearance) (Pt Warm) -Tenderness on Palpation (Anni-wound No Skin Appearance) -Ulcer Cleansing Soap and Water -Foul Odor after Cleansing No -Anesthetic Used 5% Lidocaine Gel Lower Limb Edema Present Yes Left Calf (cm) 40 38.2 Left Ankle (cm) 23.2 23.3 WC - Nurse 2 - General Ulcer CM Notes Start: 11/12/23 11:47 Freq: Status: Active Protocol: Activity Type Activity Date Activity User E-sign Co-sign Detail Recorded Client Recorded Date Recorded By Document 11/17/23 14:39 Desktop 11/17/23 14:40 11/17/23 14:39 Wound Center Nurse 2 #1 LLE ant -Time 14:39 -Correct Patient Yes -Correct Side, Site, Position Yes -Correct Procedure Yes -Procedure Performed Yes -Type of Procedure Debridement -Clinical Debridement Subcutaneous -Tissue Removed Subcutaneous -Post Debridement (cm) - Length 6.5 -Post Debridement (cm) - Width 6 -Post Debridement (cm) - Depth 0.1 -Total Square (Post) (cm) 39.0 -Area of Debridement (cm) - Length 6.5 -Area of Debridement (cm) - Width 6.0 -Total Square (Area) (cm) 39.00 -Tunneling No -Undermining/Tunneling No -Circular Undermining No -Wound/Ulcer Outcome Not Healed -Ulcer Cleansing Rinsed/ Irrigated with Saline -Foul Odor after Cleansing No -Bioengineered Tissue No -Bleeding Controlled with Pressure -Treatment Response Procedure Tolerated Well -Offloading No -Debridement - Subq, 1st 20sq cm Yes -Debridement, SubQ, ea addt'l 20sq cm 1 or part thereof Pain Scale: 0-10 Numeric Is Patient Pain Free? Yes - Nurse 3 - General Ulcer D/C NN Start: 11/12/23 11:47 Freq: Status: Active Protocol: Activity Type Activity Date Activity User E-sign Co-sign Detail Recorded Client Recorded Date Recorded By Document 11/12/23 11:51 [id number] 11/12/23 11:53 RB Document 11/17/23 14:53 [facility] Desktop 11/17/23 14:54 [facility] 11/12/23 11/17/23 11:51 14:53 Wound Care Center Nurse 3 #1 LLE ant -Ulcer Cleansing Wound Cleanser Rinsed/ Irrigated with Saline -Foul Odor after Cleansing No -Primary Dressing Applied Promogran C Hydrogel ($), NonAdherent Contact Layer -Other Dressing ABD -Primary Dressing Covered/Secured with Dry Gauze -Promogran 1 Left -Multi-Layered Wrap Application Multi-Layer Multi-Layer Comp - Left ($) Comp - Left ($) Treatment Response Procedure Procedure Tolerated Well Tolerated Well Pain Scale: 0-10 Numeric Is Patient Pain Free? Yes Yes WC - Visit Discharge Discharge Condition Stable Stable Ambulatory Status Ambulatory Ambulatory,Cane Transportation Private Auto Private Auto Accompanied by Medication Reconcilliation completed & No provided to patient/care provider Clinical Summary of Care Provided Yes Assessment/Plan Assessment/Plan (1) 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 breakdown of skin: CODE(S): L97.321 - 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 breakdown of skin PLAN: Patient was examined and evaluated. All findings were discussed with the patient. All questions were answered to the patient's satisfaction. Excisional debridement down to including dermis with a number 5 mm dermal curette to the full-thickness ulceration to the left anterior lower extremity. Predebridement measurement callus. Postdebridement measurement is 0.1 x 0.1 x 0.1 cm. Left lower extremity was wiped clean and patted dry. Adaptic was applied over the partial-thickness wound. The patient was placed in 3M wrap. He will leave it clean dry and intact. Follow-up at the wound care center with Dr. Butler in 1 week. (2) Venous ulcer of left leg: CODE(S): I83.029 - Varicose veins of left lower extremity with ulcer of unspecified site; L97.929 - Non-pressure chronic ulcer of unspecified part of left lower leg with unspecified severity (3) Other specified peripheral vascular diseases: CODE(S): I73.89 - Other specified peripheral vascular diseases
[2023-11-24 14:36] VITALS: RESP 18; BMI 37.5
[2023-12-01 11:04] VITALS: BP 156/75; PULSE 72; RESP 18; TEMP 35.9; BMI 37.5
--- NOTE | 2023-12-01 13:12 | PCM.WC.PN ---
History of Present Illness Date of Service: 12/01/23 Chief Complaint: Swelling, edema, chronic venous insufficiency, venous stasis dermatitis, and venous ulcerations -left lower extremity History of Wound: This is a 78-year-old male with multiple pre-existing medical problems. He presents with a long history of swelling and edema in his lower extremities bilaterally. He wears graduated compression stockings on a daily basis, which are of 15 to 20 mmHg compression. Nonetheless, approximately 1 month ago, noting swelling and edema in his left lower extremity, he subsequently developed blisters on the left pretibial surface, which have developed into a cluster of open ulcerations. He has been evaluated by his primary care physician and treated with a 10-day course of cephalexin. He was thought to have cellulitis. The patient is not very active. He has recently undergone left total knee replacement surgery in August 2023. He sits a great deal of each day. He sleeps in a recliner due to COPD and obstructive sleep apnea. He denies a history of thrombophlebitis. He is on chronic systemic anticoagulation with Eliquis, due to atrial fibrillation. His pre-existing medical problems are listed below, as are his prior surgical procedures. A venous duplex examination was performed on September 16, 2023, which was negative for thrombophlebitis in the left leg. Laboratory studies were last performed on September 02, 2023, and have been reviewed. Subjective Subjective Mr. Marrero is a 78-year-old male presenting to clinic today for follow-up evaluation of full-thickness ulceration to the left leg. Patient has been compliant and left his multilayer compression bandage clean dry and intact. He admits to great improvement. He denies any trauma. Denies constitutional symptoms. Other pedal complaints at this time. Objective Data Objective Data Vital Signs: Vital Signs Temp Pulse Resp BP O2 Del Method 96.6 F L 72 18 156/75 H Room Air 12/01/23 11:04 12/01/23 11:04 12/01/23 11:04 12/01/23 11:04 12/01/23 11:04 Oxygen Delivery Method Room Air Weight: 108.862 kg Body Mass Index (BMI) 37.5 Physical Exam Narrative Vascular: DP and PT pulses are palpable to the bilateral lower extremity. +1 pitting edema appreciated bilateral lower extremity. Blanchable erythema is appreciated to the left lower extremity. Skin temperature great is warm to warm from proximal ankle to distal digits bilateral. Cap refill time is brisk. Neurological: Light touch and epicritic sensation is intact bilateral. Dermatological:Full-thickness ulceration to left anterior lower extremity is now healed. No sign of infection. Evidence of sanguinous drainage. No probe to bone. No sign of infection. Musculoskeletal: Muscle strength 5-5 in all quadrants bilateral. No pain on palpation to the heel full-thickness ulceration left anterior leg. No pain with calf compression. Debridement Note Debridement Note Post-Debridement Measurements and Additional Note: Post-Debridement Measurements/Treatment - Nurse 1 - General Ulcer Assessment Start: 11/12/23 11:47 Freq: Status: Active Protocol: NÉSTORBevyUp Activity Type Activity Date Activity User E-sign Co-sign Detail Recorded Client Recorded Date Recorded By Document 11/12/23 11:47 RB [id number] 11/12/23 11:51 RB Document 11/17/23 14:11 DL Desktop 11/17/23 14:20 DL Document 11/24/23 14:36 KW Desktop 11/24/23 14:37 KW Document 12/01/23 11:04 KW Desktop 12/01/23 11:08 KW 11/12/23 11/17/23 11/24/23 11:47 14:11 14:36 - Today's Visit Information Type of service Nurse-only Follow-up Visit Follow-up Visit Visit (Physician/RESIDENTIAL PROGRAM COORDINATOR (Physician/RESIDENTIAL PROGRAM COORDINATOR ) ) Arrival Mode Ambulatory Ambulatory Ambulatory Transfer Assistance None None Accompanied by Patient Identification Verified (Name & Yes Yes ) Patient Requires Transmission-Based No No Precautions Height and Weight Body Mass Index (BMI) 37.5 37.5 37.5 BMI Classification Obese Obese Obese Vital Signs Temperature (97.8 F-99.1 F) 98.1 F 97 F L Temperature Source Temporal Temporal Pulse Rate (60-100) 74 97 Pulse Location Monitor Monitor Respiratory Rate (12-18) 18 20 H 18 Respiratory rate source Observation Observation Observation Oxygen Delivery Method Room Air Blood Pressure (90/60-120/80) 147/60 H 162/74 H Blood Pressure Mean (mm Hg) 89 103 Source Monitor Monitor Position Semi-Fowlers Blood Pressure Location Left Arm History Since Last Visit- (Skip if this is Patient's initial visit) Have you changed medications since your No No No last visit? Any new allergies or adverse reactions No No No Had a fall/change in ADL's that may No No No increase risk of falls Signs or symptoms of abuse and/or No No No neglect since last visit Have you been in the hospital since your No No No last visit? Has dressing in place as prescribed Yes Yes Yes Has compression in place as prescribed Yes Yes Yes Has offloadiing in place as prescribed No N/A N/A Experienced any changes in pain level or No No No management Left Footwear Regular Shoe Right Footwear Regular Shoe Pain Scale: 0-10 Numeric Is Patient Pain Free? Yes Yes Yes 12/01/23 11:04 WC - Today's Visit Information Type of service Follow-up Visit (Physician/RESIDENTIAL PROGRAM COORDINATOR ) Arrival Mode Ambulatory Transfer Assistance Accompanied by Patient Identification Verified (Name & Yes ) Patient Requires Transmission-Based Precautions Height and Weight Body Mass Index (BMI) 37.5 BMI Classification Obese Vital Signs Temperature (97.8 F-99.1 F) 96.6 F L Temperature Source Temporal Pulse Rate (60-100) 72 Pulse Location Monitor Respiratory Rate (12-18) 18 Respiratory rate source Observation Oxygen Delivery Method Room Air Blood Pressure (90/60-120/80) 156/75 H Blood Pressure Mean (mm Hg) 102 Source Monitor Position Semi-Fowlers Blood Pressure Location Right Arm History Since Last Visit- (Skip if this is Patient's initial visit) Have you changed medications since your No last visit? Any new allergies or adverse reactions No Had a fall/change in ADL's that may No increase risk of falls Signs or symptoms of abuse and/or No neglect since last visit Have you been in the hospital since your No last visit? Has dressing in place as prescribed Yes Has compression in place as prescribed Yes Has offloadiing in place as prescribed N/A Experienced any changes in pain level or No management Left Footwear Regular Shoe Right Footwear Regular Shoe Pain Scale: 0-10 Numeric Is Patient Pain Free? Yes - Nurse 1 - General Ulcer Measurement Start: 11/12/23 11:47 Freq: Status: Active Protocol: Activity Type Activity Date Activity User E-sign Co-sign Detail Recorded Client Recorded Date Recorded By Document 11/12/23 11:47 RB [id number] 11/12/23 11:51 RB Document 11/17/23 14:11 DL Desktop 03/06/24 14:20 DL Document 11/24/23 14:36 KW Desktop 11/24/23 14:37 KW Document 12/01/23 11:04 KW Desktop 12/01/23 11:08 KW 11/12/23 11/17/23 11/24/23 11:47 14:11 14:36 Wound Center Nurse 1 #1 LLE ant -Combined with other wound No -Current Size (cm) - Length 7.8 0.1 -Current Size (cm) - Width 8.8 0.1 -Current Size (cm) - Depth 0.1 0.1 -Total Square Cm 68.64 0.01 -Photo Taken No -Exudate Amt Medium -Exudate Type Serosanguineous -Wound Margin Distinct, Outline Attached -Granulation Amt Large (67-100%) -Granulation Quality Red -Necrosis Amt Small (1-33%) -Necrotic Tissue Type Adherent Slough -Structure Exposed N/A -Texture (Anni-wound Skin Appearance) Scarring -Moisture (Anni-wound Skin Appearance) No Abnormality -Color (Anni-wound Skin Appearance) Hemosiderin Staining -Temperature (Anni-wound Skin No Abnormality Appearance) (Pt Warm) -Tenderness on Palpation (Anni-wound No Skin Appearance) -Ulcer Cleansing Soap and Water Soap and Water -Foul Odor after Cleansing No -Anesthetic Used 5% Lidocaine 5% Lidocaine Gel Gel -Wound Comment(s) SCABBED Lower Limb Edema Present Yes Left Calf (cm) 40 38.2 Left Ankle (cm) 23.2 23.3 12/01/23 11:04 Wound Center Nurse 1 #1 LLE ant -Combined with other wound -Current Size (cm) - Length 0.9 -Current Size (cm) - Width 0.3 -Current Size (cm) - Depth 0.1 -Total Square Cm 0.27 -Photo Taken -Exudate Amt -Exudate Type -Wound Margin -Granulation Amt -Granulation Quality -Necrosis Amt -Necrotic Tissue Type -Structure Exposed -Texture (Anni-wound Skin Appearance) Assessed -Moisture (Anni-wound Skin Appearance) Assessed -Color (Anni-wound Skin Appearance) Assessed -Temperature (Anni-wound Skin No Abnormality Appearance) (Pt Warm) -Tenderness on Palpation (Anni-wound Skin Appearance) -Ulcer Cleansing Soap and Water -Foul Odor after Cleansing -Anesthetic Used 5% Lidocaine Gel -Wound Comment(s) scabbed over Lower Limb Edema Present Left Calf (cm) 36.5 Left Ankle (cm) 22.3 - Nurse 2 - General Ulcer CM Notes Start: 11/12/23 11:47 Freq: Status: Active Protocol: Activity Type Activity Date Activity User E-sign Co-sign Detail Recorded Client Recorded Date Recorded By Document 11/17/23 14:39 Desktop 11/17/23 14:40 Document 11/24/23 14:35 [id number] 11/24/23 14:37 Document 12/01/23 11:15 Laptop 12/01/23 11:16 11/17/23 11/24/23 12/01/23 14:39 14:35 11:15 Wound Center Nurse 2 #1 LLE ant -Time 14:39 14:36 -Correct Patient Yes Yes No -Correct Side, Site, Position Yes Yes No -Correct Procedure Yes Yes No -Procedure Performed Yes Yes No -Type of Procedure Debridement Debridement -Clinical Debridement Subcutaneous Epidermis / Dermis -Tissue Removed Subcutaneous Epidermis, Dermis -Post Debridement (cm) - Length 6.5 0.1 0 -Post Debridement (cm) - Width 6 0.1 0 -Post Debridement (cm) - Depth 0.1 0.1 0 -Total Square (Post) (cm) 39.0 0.01 0 -Area of Debridement (cm) - Length 6.5 0.1 0 -Area of Debridement (cm) - Width 6.0 0.1 0 -Total Square (Area) (cm) 39.00 0.01 0 -Tunneling No No -Undermining/Tunneling No No -Circular Undermining No No -Wound/Ulcer Outcome Not Healed Not Healed Healed- Epithelialized -Ulcer Cleansing Rinsed/ Rinsed/ Irrigated with Irrigated with Saline Saline -Foul Odor after Cleansing No No -Bioengineered Tissue No No -Bleeding Controlled with Pressure NA -Treatment Response Procedure Procedure Tolerated Well Tolerated Well -Offloading No No -Debridement - Open, 1st 20sq cm Yes -Debridement - Subq, 1st 20sq cm Yes -Debridement, SubQ, ea addt'l 20sq cm 1 or part thereof Pain Scale: 0-10 Numeric Is Patient Pain Free? Yes Yes Yes - Nurse 3 - General Ulcer D/C NN Start: 11/12/23 11:47 Freq: Status: Active Protocol: Activity Type Activity Date Activity User E-sign Co-sign Detail Recorded Client Recorded Date Recorded By Document 11/12/23 11:51 RB [id number] 11/12/23 11:53 RB Document 11/17/23 14:53 BMF Desktop 11/17/23 14:54 BMF Document 11/24/23 14:36 KW Desktop 11/24/23 14:36 KW Document 12/01/23 11:16 JF Laptop 12/01/23 11:17 JF 11/12/23 11/17/23 11/24/23 11:51 14:53 14:36 Wound Care Center Nurse 3 #1 LLE ant -Ulcer Cleansing Wound Cleanser Rinsed/ Irrigated with Saline -Foul Odor after Cleansing No -Primary Dressing Applied Promogran C Hydrogel ($), NonAdherent NonAdherent Contact Layer Contact Layer -Other Dressing ABD -Primary Dressing Covered/Secured with Dry Gauze Dry Gauze -Promogran 1 Left -Multi-Layered Wrap Application Multi-Layer Multi-Layer Multi-Layer Comp - Left ($) Comp - Left ($) Comp - Left ($) -Stockings Treatment Response Procedure Procedure Tolerated Well Tolerated Well Pain Scale: 0-10 Numeric Is Patient Pain Free? Yes Yes Yes WC - Visit Discharge Discharge Condition Stable Stable Stable Ambulatory Status Ambulatory Ambulatory,Cane Ambulatory Transportation Private Auto Private Auto Private Auto Accompanied by Medication Reconcilliation completed & No No provided to patient/care provider Clinical Summary of Care Provided Yes Yes 12/01/23 11:16 Wound Care Center Nurse 3 #1 LLE ant -Ulcer Cleansing -Foul Odor after Cleansing -Primary Dressing Applied -Other Dressing -Primary Dressing Covered/Secured with -Promogran Left -Multi-Layered Wrap Application -Stockings Yes Treatment Response Pain Scale: 0-10 Numeric Is Patient Pain Free? Yes WC - Visit Discharge Discharge Condition Stable Ambulatory Status Ambulatory Transportation Private Auto Accompanied by Medication Reconcilliation completed & Yes provided to patient/care provider Clinical Summary of Care Provided Yes Assessment/Plan Assessment/Plan (1) 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 breakdown of skin: CODE(S): L97.321 - 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 breakdown of skin PLAN: Patient was examined and evaluated. All findings were discussed with the patient. All questions were answered to the patient's satisfaction. The patient's full-thickness ulceration to left lower extremity leg is now healed. Patient will be placed in his compression stockings that he brought with him today. He was educated the patient that if he has any breakdown of skin he is to follow-up with Dr. Butler in his private office. Patient showed understanding of this will follow-up as needed. (2) Other specified peripheral vascular diseases: CODE(S): I73.89 - Other specified peripheral vascular diseases
== END 2023-12-02 15:24 | disposition home or self-care (01) ==
LOC: WC 10:45
PROVIDERS: PCP Internal Medicine; Referring Provider Internal Medicine; Visit Provider Podiatrist Foot & Ankle Surgery
DX: I83.028 Varicose veins of left lower extremity with ulcer other part of lower leg (principal); L97.822 Non-pressure chronic ulcer of other part of left lower leg with fat layer exposed; L97.321 Non-pressure chronic ulcer of left ankle limited to breakdown of skin; J44.9 Chronic obstructive pulmonary disease, unspecified; I48.91 Unspecified atrial fibrillation; Z79.01 Long term (current) use of anticoagulants; G47.33 Obstructive sleep apnea (adult) (pediatric); I73.89 Other specified peripheral vascular diseases
CPT/HCPCS: 11042; 11045; 29581; 97597; 99213; G0463

== ENCOUNTER → 2024-01-10 | Outpatient (CLI) | payer MEDICARE, OTHER, SELFPAY ==
[2021-12-15 12:04] VITALS: BMI 37.1
== END | disposition home or self-care (01) ==
LOC: PSN 10:33
PROVIDERS: PCP Internal Medicine; Referring Provider Nurse Practitioner Acute Care; Visit Provider Nurse Practitioner Acute Care
DX: R06.00 Dyspnea, unspecified (principal)
CPT/HCPCS: 94060; 94726; 94729

== ENCOUNTER → 2024-01-13 | Outpatient (CLI) | payer MEDICARE, OTHER, SELFPAY ==
[2021-12-15 12:04] VITALS: BMI 37.1
[2024-01-13 13:00] VITALS: PULSE 68; PULSE 70; PULSE 92; PULSE 93; PULSE 94; PULSE 95; O2SAT 90; O2SAT 91; O2SAT 92; O2SAT 93; O2SAT 96
--- NOTE | 2024-01-13 13:14 | CPS ---
2 minutes 26 seconds into walk pt wanted to sit down. Pt stated he was tired and was feeling his S.O.B was moderate. Pt remained seated until approximately 4 minutes and 48 seconds into the 6 minutes. Pt resumed walk on room air for remainder of test.
--- NOTE | 2024-01-14 13:29 | WT_ITS ---
PSN 6 Minute Walk Test 6 Minute Walk Test 6 Minute Walk Test: 6 Minute Walk Test PSN:6-Minute Walk Test Start: 01/13/24 13:11 Freq: Status: Active Protocol: RESP.6MINW Document 01/13/24 13:00 [facility] (Rec: 01/13/24 13:18 [facility] [id number]) 6 Minute Walk Test Date Performed 01/13/24 Time Performed 13:00 Height 5 ft 7 in Weight: 248 lb Weight in Pounds 248.[address]: Tess Warner Assistive device used: None Pre-test Oxygen Delivery Method Room Air Pulse Ox 93 Pulse Rate (60-100) 68 Dyspnea Terrell Scale (0-10) 0 Exertion Terrell Scale (6-20) 6 1st minute Oxygen Delivery Method Room Air Pulse Ox 92 Pulse Rate (60-100) 95 2nd minute Oxygen Delivery Method Room Air Pulse Ox 90 Pulse Rate (60-100) 92 Dyspnea Terrell Scale (0-10) 14 Exertion Terrell Scale (6-20) 1 Reported Symptoms Increased Work of Breathing 3rd minute Number of Rests Taken 1 Reported Symptoms Increased Work of Breathing 4th minute Number of Rests Taken 1 Reported Symptoms Increased Work of Breathing 5th minute Oxygen Delivery Method Room Air Pulse Ox 93 Pulse Rate (60-100) 93 6th minute Oxygen Delivery Method Room Air Pulse Ox 91 Pulse Rate (60-100) 94 Dyspnea Terrell Scale (0-10) 3 Exertion Terrell Scale (6-20) 14 Reported Symptoms Increased Work of Breathing Post-test Oxygen Delivery Method Room Air Pulse Ox 96 Pulse Rate (60-100) 70 Full Laps Walked 8 Partial Lap, Number of Tiles Walked 0 Total Distance Walked (ft) 472 01/13/24 13:14 Cardiopulmonary Services by Guera Arzola 2 minutes 26 seconds into walk pt wanted to sit down. Pt stated he was tired and was feeling his S.O.B was moderate. Pt remained seated until approximately 4 minutes and 48 seconds into the 6 minutes. Pt resumed walk on room air for remainder of test. Initialized on 01/13/24 13:14 - END OF NOTE Interpretation Interpretation: The patient ambulated 472 feet over the course of 6 minutes beginning on room air without assistive devices. Pretesting oxygen saturation was noted to be 93% on room air. With ambulation, the nany oxygen saturation was 90%. Although there was evidence of impaired walk distance, there was no significant exertional oxygen desaturation. Recommendations Recommendations: There is no indication for the use of supplemental oxygen at this time.
== END | disposition home or self-care (01) ==
LOC: PSN 12:44
PROVIDERS: PCP Internal Medicine; Referring Provider Nurse Practitioner Acute Care; Visit Provider Nurse Practitioner Acute Care
DX: R06.00 Dyspnea, unspecified (principal)
CPT/HCPCS: 94618

== ENCOUNTER → 2024-01-25 | Outpatient (CLI) | payer MEDICARE, OTHER, SELFPAY ==
[2021-12-15 12:04] VITALS: BMI 37.1
--- NOTE | 2024-01-25 14:42 | CT_ITS ---
STUDY: LOW DOSE CT LUNG CANCER SCREENING REASON FOR EXAM: Male, 78 years old. smoking, quit 2010 RADIATION DOSAGE (If Supplied By Facility): CTDIvol = ( 4.02 ) mGy, DLP = ( 275.86 ) mGycm TECHNIQUE: No contrast was administered. Low dose technique was utilized (average mAS-38 and kVp 120). 1.25 mm axial source images with a slice interval of 1.25-mm were reconstructed in lung windows. 2.5 mm axial source images with a slice interval of 2.5-mm were reconstructed in lung windows. 5.0 mm axial source images with a slice interval of 5.0-mm were reconstructed in soft tissue windows. COMPARISON: None. Emphysema: Mild emphysema. No noncalcified nodule or mass. Endobronchial lesion: None Aorta: Some calcified plaque in the aortic arch but no aortic aneurysm. CORONARY ARTERIES: Coronary artery calcification is seen. Heart: Cardiomegaly. Suspect transcatheter aortic valve replacement. Pulmonary artery: Normal Mediastinal nodes: Normal Other chest and abdominal findings: None CT/Low Dose CT Lung Screening IMPRESSION: Lung-RADS category 1 - Continue annual screening with LDCT in 12 months. IMPORTANT NOTES FOR USE: ACR Lung-RADS Version 1.1 Assessment Categories Release Date: 2018 Category: Coded 0-4 bases on nodule(s) with highest degree of suspicion. Negative screen is defined as categories 1 and 2; a positive screen is defined as categories 3 and 4. Category 3 and 4A nodules that are unchanged on interval CT should be coded as category 2, and individuals returned to screening in 12 months. Category 4X: Category 3 or 4 nodules with additional imaging findings that increase the suspicion of lung cancer, such as spiculation, GGN that doubles in size in 1 year, enlarged lymph notes, etc. Category Modifiers: S (significant finding unrelated to lung cancer) Electronically Signed: Andrea Anthony MD at 22:24 EDT ,
== END | disposition home or self-care (01) ==
LOC: CT 14:40
PROVIDERS: PCP Internal Medicine; Referring Provider Nurse Practitioner Acute Care; Visit Provider Nurse Practitioner Acute Care
DX: Z12.2 Encounter for screening for malignant neoplasm of respiratory organs (principal); Z87.891 Personal history of nicotine dependence
CPT/HCPCS: 71271

== ENCOUNTER → 2024-05-02 | Outpatient (CLI) | payer MEDICARE, SELFPAY ==
[2021-12-15 12:04] VITALS: BMI 37.1
[2024-05-02 16:04] LABS: Anion Gap 4 (5-15); BNP,B-Type NATRIURETIC PEPTIDE 200.6 pg/mL (0-100); BUN 17 mg/dL (7-18); BUN/Creat Ratio 14.4 RATIO (10-20); Calcium,Total 9.7 mg/dL (8.5-10.1); Chloride 105 mmol/L (98-107); Creatinine, Serum 1.18 mg/dL (0.70-1.30); EST Glomerular Filtration Rate 63 mL/min (>60); Est Glom Filt Rate - Afr Amer 76 mL/min (>60); Glucose 98 mg/dL (74-106); Potassium 4.2 mmol/L (3.5-5.1); Sodium Level 138 mmol/L (136-145)
[2024-05-02 16:18] LABS: Absolute Lymphocyte Count 1.16 X10^3/uL (0.83-4.51); Absolute Neutrophil Count 7.4 X10^3/uL (2.0-7.7); Basophil# 0.08 X10^3/uL; Basophil% 0.8 % (0-1); Eosinophil# 0.15 X10^3/uL; Eosinophils% 1.5 % (0-5); Hematocrit 44.2 % (40-54); Hemoglobin 14.3 g/dL (13.0-16.5); Lymphocyte # 1.16 X10^3/ul (0.83-4.51); Lymphocyte % 11.8 % (19-41); Mean Corp Hgb Conc 32.4 g/dL (32-36); Mean Corpuscular Hgb 31.4 pg (27.0-32.0); Mean Corpuscular Volume 97.1 fL (80-94); Mean Platelet Vol. 9.9 fl (6.2-12.0); Monocyte# 0.98 X10^3/uL; NRBC Flagged by Analyzer 0 % (0-5); Neutrophil # 7.37 X10^3/uL (2.7-7.7); Neutrophil % 75.1 % (47-70); Platelet Count 223 K/mm3 (150-450); RBC Distribution Width CV 13.1 % (11.6-14.6); RBC Distribution Width SD 46.2 fl (35.1-43.9); Red Blood Count 4.55 M/mm3 (4.6-6.2); White Blood Count 9.8 K/mm3 (4.4-11.0)
== END | disposition home or self-care (01) ==
PROVIDERS: PCP Internal Medicine; Referring Provider Nurse Practitioner Gerontology; Visit Provider Nurse Practitioner Gerontology
DX: R06.00 Dyspnea, unspecified (principal)
CPT/HCPCS: 36415; 80048; 83880; 85025

== ENCOUNTER → 2024-05-09 | Outpatient (CLI) | payer MEDICARE, SELFPAY ==
[2021-12-15 12:04] VITALS: BMI 37.1
[2024-05-09 13:04] LABS: Anion Gap 7 (5-15); BUN 21 mg/dL (7-18); Calcium,Total 9.5 mg/dL (8.5-10.1); Chloride 106 mmol/L (98-107); EST Glomerular Filtration Rate 52 mL/min (>60); Est Glom Filt Rate - Afr Amer 63 mL/min (>60); Glucose 128 mg/dL (74-106); Potassium 4.6 mmol/L (3.5-5.1); Sodium Level 141 mmol/L (136-145)
== END | disposition home or self-care (01) ==
LOC: LAB 10:57
PROVIDERS: PCP Internal Medicine; Referring Provider Nurse Practitioner Gerontology; Visit Provider Nurse Practitioner Gerontology
DX: R06.00 Dyspnea, unspecified (principal)
CPT/HCPCS: 36415; 80048

== ENCOUNTER 2024-05-18 17:57 | Inpatient (IN) | payer MEDICARE, SELFPAY ==
[2021-12-15 12:04] VITALS: BMI 37.1
[2024-05-18] VITALS (9 sets, daily range): BP systolic 111–172; BP diastolic 53–73; PULSE 81–124; RESP 18–28; TEMP 37.8–37.9; O2SAT 91–97; BMI 39.9
--- NOTE | 2024-05-18 18:12 | EKG12_ITS ---
Test Reason : SOB Blood Pressure : / mmHG Vent. Rate : 117 BPM Atrial Rate : 000 BPM P-R Int : 000 ms QRS Dur : 090 ms QT Int : 288 ms P-R-T Axes : 000 024 009 degrees QTc Int : 401 ms Atrial fibrillation with rapid ventricular response with premature ventricular or aberrantly conducte d complexes Nonspecific ST abnormality Abnormal ECG Confirmed by BRADFORD HATCH, CYNTHIA ([id number]), web editor DELGADO SIMEON ([id number]) on 05/22/2024 8:17:39 AM Referred By: Confirmed By:CYNTHIA FELDER MD
--- NOTE | 2024-05-18 20:41 | EDS_ITS ---
HPI History of Present Illness Chief Complaint: Shortness of Breath Informant: patient Narrative Narrative: Patient is a 78-year-old male presenting for generalized weakness, cough, shortness of breath and positive home COVID test. Patient started having symptoms yesterday. His had COVID a couple days before that. He lives at home with his . He had severe COVID in 2020 and was hospitalized for 7 weeks. He wears 2 L of oxygen at night only. States he does not do any breathing treatments at home. Daughters at the bedside said he had about a 6- hour episode today where he was just completely out of it. At that time his temperature was 100 ?F. No other complaints at this time. He is not complain of any chest pain, nausea, vomiting, abdominal pain or changes bowel movements. Is having associated rhinorrhea and nasal congestion. Has extensive medical history including prior TAVR, atrial fibrillation (on Eliquis), emphysema, obstructive sleep apnea, PE and hypertension. [facility] Medical History [place] phlebectatica paraplantaris Venous ulcer of left leg Venous stasis dermatitis Leg edema, left Left leg swelling Chronic venous insufficiency Obesity (BMI 30-39.9) History of pulmonary embolism History of TIA (transient ischemic attack) Alcohol use Dietary restriction TIA (transient ischemic attack) History of pain when walking History of stress test Emphysema with chronic bronchitis Prostate disease High cholesterol History of COVID-19 Wears hearing aid Wears glasses Wears dentures Arthritis Pulmonary embolism Former smoker On home oxygen therapy COPD (chronic obstructive pulmonary disease) History of edema History of CHF (congestive heart failure) History of atrial fibrillation History of echocardiogram Cardiology follow-up encounter History of transcatheter aortic valve replacement (TAVR) (~07/10/21) History of left heart catheterization (LHC) (~05/06/21) Atherosclerotic heart disease of [place] coronary artery without angina pectoris Dyspnea on exertion Non-rheumatic mitral valve stenosis COVID-19 (~09/2020) Left-sided weakness Nonrheumatic aortic (valve) stenosis Nonrheumatic tricuspid (valve) insufficiency Other secondary pulmonary hypertension BPH (benign prostatic hyperplasia) Persistent atrial fibrillation Solitary pulmonary nodule NOAM (obstructive sleep apnea) Emphysema of lung Stage 1 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 Hyperlipidemia Hypertension Bilateral pulmonary embolism Atrial fibrillation Home Medications ?Medication ?Instructions ?Recorded ?Last Taken ?Type finasteride 5 mg tablet 5 mg PO DAILY prostate 09/24/15 09/01/23 History tamsulosin 0.4 mg capsule (Flomax) 0.8 mg PO QHS prostate 02/28/18 08/31/23 History Disability Placard #1 ea 01/01/21 Unknown Rx aspirin 81 mg capsule 81 mg PO DAILY 05/06/21 08/28/23 History inulin 2,500 mg-vitamin D3 500 2 tab PO DAILY 08/12/23 08/31/23 History unit chewable tablet (Fiber Gummies with Vitamin D3) polyethylene glycol 3350 17 17 g PO DAILY 08/12/23 08/31/23 History gram/dose oral powder (Miralax) atorvastatin 10 mg tablet 10 mg PO QDAY #90 tabs 08/27/23 08/31/23 Rx diltiazem HCl 120 mg tablet 120 mg PO BID 90 days #180 tabs 08/27/23 09/01/23 Rx metoprolol tartrate 75 mg tablet 75 mg PO BID #180 tabs 08/27/23 09/01/23 Rx oxycodone 5 mg tablet 5 - 10 mg (1 - 2 x 5 mg) PO Q4H 09/02/23 Unknown Rx PRN PRN Pain Score 4-10 5 days #42 tabs apixaban 5 mg tablet 5 mg PO BID blood thinner #180 tabs 11/29/23 Unknown Rx potassium chloride 20 mEq 30 meq PO DAILY 01/04/24 Unknown History tablet,extended release(part/cryst) (Klor-Con M) furosemide 40 mg tablet 40 mg PO DAILY fluid 05/09/24 Unknown History acetaminophen 500 mg tablet 1,300 mg PO DAILY PRN pain 05/18/24 Unknown History cholecalciferol (vitamin D3) 25 1,000 unit PO DAILY 05/18/24 Unknown History mcg (1,000 unit) capsule docusate sodium 250 mg capsule 250 mg PO BID 05/18/24 Unknown History Allergy/AdvReac Type Severity Reaction Status Date / Time lisinopril AdvReac Intermediate cough Verified 05/18/24 18:00 Family History Mother CVA (cerebral vascular accident) Diabetes Other Family history of CVA Surgical History History of left knee replacement History of heart surgery History of colonoscopy (~2010) History of left cataract surgery H/O oral surgery Social History (Updated 05/18/24 @ 22:[address] Carmela Martinez MD) household members: spouse Smoking Status: Former smoker pack-years: 40 Tobacco: How many years used: 40 how long ago did patient quit smokin second hand exposure: No alcohol intake: never substance use type: does not use caffeine: Yes Type: tea what type of physical activity do you participate in: none seatbelt use: always do you feel safe at home: Yes ROS ROS ED Constitutional Constitutional ED: Reports chills and fever(s) Eyes Eyes: Denies change in vision ENT ENT ED: Reports rhinorrhea Cardiovascular Cardiovascular: Denies chest pain Respiratory/Chest Respiratory/Chest: Reports cough, dyspnea and dyspnea on exertion; Denies sputum Gastrointestinal Gastrointestinal: Denies abdominal pain, nausea or vomiting Musculoskeletal Musculoskeletal: Denies arthralgias or myalgias Integumentary Denies rash Neurologic Neurologic: Reports weakness; Denies headache(s) or paresthesias Hematologic/Lymphatic Hematologic/Lymphatic: Reports easy bleeding, easy bruising and other Details: On Eliquis EXAM Physical Exam Const Vital Signs: 05/18/24 18:00 05/18/24 18:00 05/18/24 18:11 Temperature 100.2 F H 100.2 F H Temperature Source Axillary Oral Pulse Rate 124 H 124 H Respiratory Rate 18 18 25 H Respiratory Effort Respiratory Pattern Blood Pressure 172/59 H 172/59 H Blood Pressure Mean 96 96 Pulse Ox 94 94 93 Oxygen Delivery Method Room Air Room Air Room Air Oxygen Flow Rate (L/min) 05/18/24 18:11 05/18/24 20:26 05/18/24 20:40 Temperature Temperature Source Pulse Rate 117 H 121 H Respiratory Rate 19 H 28 H Respiratory Effort Respiratory Pattern Blood Pressure 149/61 H Blood Pressure Mean 90 Pulse Ox 91 Oxygen Delivery Method Room Air Room Air Oxygen Flow Rate (L/min) 05/18/24 20:49 05/18/24 21:00 Temperature 100.1 F H Temperature Source Temporal Pulse Rate 105 H Respiratory Rate 22 H Respiratory Effort Labored Respiratory Pattern Tachypnea Blood Pressure 159/73 H Blood Pressure Mean 101 Pulse Ox 93 Oxygen Delivery Method Nasal Cannula Nasal Cannula Oxygen Flow Rate (L/min) 2 2 Positive well nourished and well developed General Appearance ED: well developed and NAD HEENT Reports TM's clear and moist mucous membranes HEENT Narrative: Nasal congestion and rhinorrhea present Tympanic Membrane ED: Yes TM's clear Eyes PERRL and EOMs intact bilaterally Neck supple Chest Wall inspection of chest normal and palpation of chest normal Resp Resp Narrative: Tachypneic, decreased air movement appreciated. No wheezing. Cardio Rate: tachycardic Rhythm: abnormal rhythm regularly irregular GI normal to inspection, nondistended, normoactive bowel sounds and non-tender Extremity normal to inspection Extremity Narrative: Chronic appearing peripheral edema present Neuro oriented x3 Sensorium / Orientation: alert Motor Exam: general weakness Psych mental status grossly normal Skin no rashes or lesions noted and no wounds MDM MDM MDM Narrative Medical decision making narrative: Patient is evaluate for generalized weakness and shortness of breath. A positive home COVID test yesterday. Does have significant underlying lung disease and comorbidities. His oxygen is fluctuated between 88 to 91% on room air. Placed on 2 L of oxygen. Will give a DuoNeb. Will obtain workup including chest x-ray, EKG and lab work. Patient is tachycardic however he also has a fevers will give Tylenol and then reassess his heart rate. Heart rate does improve with fever control. Patient does have a leukocytosis which would be more suggestive of a bacterial infection. BMP is largely normal and he does have an elevation of his creatinine of 1.44 however this is similar to his creatinine a week ago and mildly elevated from his creatinine 2 weeks before. Would not call this an OSCAR at this time. Troponin is normal. Urinalysis is consistent with UTI with 10-25 white blood cells and 1+ bacteria. In addition patient's had urinary frequency which is new. Will cover with Rocephin. Chest x-ray viewed by myself as well as radiology does show increased interstitial markings which could be edema and/or infection. Clinically I am more concerned for infection. Will cover for pneumonia with the Rocephin that was previously given as well as azithromycin. He is COVID-positive we will also give IV Decadron. He does have improvement after receiving a DuoNeb however given that patient is requiring supplemental oxygen has 2 sources of infection and is generally weak I do think he benefit from admission. Case is discussed with admitting physician, Dr. Martinez who is agreeable. Patient family also agreeable with this plan of care. Patient herrera hemodynamically stable for PCU at time of admission. Lab Data Attestation: I reviewed the patient's lab results. Labs: Laboratory Results - last 24 hr 05/18/24 05/18/24 20:25 21:30 WBC 13.1 H RBC 4.63 Hgb 14.5 Hct 44.3 MCV 95.7 H MCH 31.3 MCHC 32.7 RDW Std Deviation 46.8 H RDW Coeff of Zackary 13.3 Plt Count 177 MPV 9.9 Immature Gran % (Auto) 0.900 Neut % (Auto) 81.0 H Lymph % (Auto) 4.2 L [place] % (Auto) 12.8 H Eos % (Auto) 0.5 Baso % (Auto) 0.6 Absolute Neuts (auto) 10.6 H Absolute Lymphs (auto) 0.55 L Nucleated RBC % 0 Differential Comment SCANNED Diff Path Review May foll Sodium 137 Potassium 4.1 Chloride 103 Carbon Dioxide 26.0 Anion Gap 8 BUN 23 H Creatinine 1.44 H Estim Creat Clear Calc 50.52 Est GFR (MDRD) Af Amer 61 Est GFR (MDRD) Non-Af 50 L BUN/Creatinine Ratio 16.0 Glucose 113 H Lactic Acid 1.3 Calcium 9.5 Troponin I High Sens 22 Urine Color Yellow Urine Clarity Sl. Cloudy Urine pH 6.5 Ur Specific [place] 1.010 Urine Protein 30 H Urine Glucose (UA) Normal Urine Ketones 5 H Urine Occult Blood 25 H Urine Nitrite Negative Urine Bilirubin Negative Urine Urobilinogen Normal Ur Leukocyte Esterase 500 H Urine RBC 0-5 SEEN Urine WBC 10-25 SEEN Ur Squamous Epith Cells 0 SEEN Urine Bacteria 1+ Urine Mucus 0 SEEN Radiography Chest X-Ray - ED: 1 View, Read by ED Physician and Read by Radiologist Diagnostic Testing: Clinical Impression(s) from Imaging Studies Chest X-Ray 05/18/24 21:00 IMPRESSION: Increased interstitial markings may represent edema and/or infection. Electronically Signed: Javier Hatfield MD at 21:21 EDT , Rhythm Strip Rhythm Strip: A-fib Rate: 117 Ectopy: None EKG Initial EKG: Attestation: I personally reviewed and interpreted this EKG as follows: Interpretation: Atrial Fibrillation Comments: Atrial fibrillation with rapid ventricular response at a rate of 117 bpm Normal axis Normal QRS Multiple PVCs presents Nonspecific T wave changes Management Discussion w/another healthcare provider: Hospitalist Discharge Plan Triage Chief Complaint: Shortness of Breath ED Provider: Minnie Vargas Dx/Rx/DC Orders Clinical Impression: COVID-19, Atrial fibrillation, Dyspnea, Acute UTI Prescriptions: No Action tamsulosin [Flomax] 0.4 mg capsule,extended release 24hr 0.8 mg PO QHS (DME) Disability Placard See Rx Instructions .ROUTE .MEDSUPPLY Qty: 1 0RF Rx Instructions: Expires in 5 years potassium chloride [Klor-Con M20] 20 mEq tablet,ER particles/crystals 30 meq PO DAILY Patient Comments: TAKE 1.5 TABLET ONCE DAILY, OR TWICE NEEDED finasteride 5 MG tablet 5 mg PO DAILY Patient Comments: prostate aspirin 81 mg Capsule 81 mg PO DAILY Fiber Gummies with Vitamin D3 2,500 mg- 500 unit tablet,chewable 2 tab PO DAILY polyethylene glycol 3350 [Miralax] 17 gram/dose powder 17 g PO DAILY oxycodone 5 mg Tablet 5 - 10 mg PO Q4H PRN PRN (Reason: Pain Score 4-10) 5 Days Qty: 42 0RF docusate sodium 250 mg capsule 250 mg PO BID cholecalciferol (vitamin D3) 25 mcg (1,000 unit) capsule 1,000 unit PO DAILY acetaminophen 500 mg Tablet 1,300 mg PO DAILY PRN (Reason: pain) Rx Instructions: Do not take more than 3000 mg Tylenol in a 24-hour period. diltiazem HCl 120 mg tablet 120 mg PO BID 90 Days Qty: 180 3RF metoprolol tartrate 75 mg tablet 75 mg PO BID Qty: 180 3RF atorvastatin 10 mg tablet 10 mg PO QDAY Qty: 90 3RF apixaban 5 mg tablet 5 mg PO BID Qty: 180 3RF furosemide 40 mg tablet 40 mg PO DAILY Primary Care Provider: Tomy Hernandez Referrals: Tomy Hernandez MD [Primary Care Provider] - Print Language: Uzbek Disposition Disposition: Acute Care [facility]
[2024-05-18] MEDS: Ipratropium/Albuterol Sulfate 3 ML AMPUL.NEB INHALATION (20:54)
[2024-05-18] MEDS: 0.9% Normal Saline (1000mL) 1,000 ML 150 ML IV (20:54)
[2024-05-18] MEDS: Acetaminophen 325 MG Tablet 650 MG PO (20:55)
--- NOTE | 2024-05-18 21:00 | RAD_ITS ---
INDICATION: cough EXAMINATION/TECHNIQUE: X-RAY - XR Chest 1 View COMPARISON: 08/19/2023. FINDINGS: Increased interstitial markings. Tortuous and calcified thoracic aorta. The heart is mildly enlarged. No pleural effusion or pneumothorax. Degenerative changes of the thoracic spine. RAD/Chest 1 View (Portable) IMPRESSION: Increased interstitial markings may represent edema and/or infection. Electronically Signed: Javier Hatfield MD at 21:21 EDT ,
[2024-05-18 21:14] LABS: Absolute Lymphocyte Count 0.55 X10^3/uL (0.83-4.51); Absolute Neutrophil Count 10.6 X10^3/uL (2.0-7.7); Basophil# 0.08 X10^3/uL; Basophil% 0.6 % (0-1); Eosinophil# 0.06 X10^3/uL; Eosinophils% 0.5 % (0-5); Hematocrit 44.3 % (40-54); Hemoglobin 14.5 g/dL (13.0-16.5); Lymphocyte # 0.55 X10^3/ul (0.83-4.51); Lymphocyte % 4.2 % (19-41); Mean Corp Hgb Conc 32.7 g/dL (32-36); Mean Corpuscular Hgb 31.3 pg (27.0-32.0); Mean Corpuscular Volume 95.7 fL (80-94); Mean Platelet Vol. 9.9 fl (6.2-12.0); Monocyte# 1.68 X10^3/uL; Monocyte% 12.8 % (0-10); NRBC Flagged by Analyzer 0 % (0-5); Neutrophil # 10.63 X10^3/uL (2.7-7.7); POSITIVE DIFFERENTIAL YES; Platelet Count 177 K/mm3 (150-450); RBC Distribution Width CV 13.3 % (11.6-14.6); RBC Distribution Width SD 46.8 fl (35.1-43.9); Red Blood Count 4.63 M/mm3 (4.6-6.2); White Blood Count 13.1 K/mm3 (4.4-11.0)
[2024-05-18 21:16] LABS: Anion Gap 8 (5-15); BUN 23 mg/dL (7-18); Calcium,Total 9.5 mg/dL (8.5-10.1); Chloride 103 mmol/L (98-107); Creatinine, Serum 1.44 mg/dL (0.70-1.30); EST Glomerular Filtration Rate 50 mL/min (>60); Est Glom Filt Rate - Afr Amer 61 mL/min (>60); Estimated Creatinine Clearance 50.52 ml/min; Glucose 113 mg/dL (74-106); Potassium 4.1 mmol/L (3.5-5.1); Sodium Level 137 mmol/L (136-145)
[2024-05-18 21:17] LABS: Differential Indicated SCAN CRITERIA MET
[2024-05-18 21:31] LABS: Lactic Acid 1.3 mmol/L (0.4-1.9)
[2024-05-18 21:35] LABS: Mucous, Urine 0 SEEN /hpf (<or=2+); Squamous Epithelial Cells - UA 0 SEEN /hpf (0-5)
[2024-05-18 21:36] LABS: Color, Urine Yellow (Yellow); Glucose, Dipstick Normal (Normal); Ketone-Dipstick 5 mg/dl (Negative); Leukocyte Esterase-Dipstick 500 /ul (Negative); Nitrite-Dipstick Negative (Negative); Occult Blood-Urine 25 /ul (Negative); Protein-Dipstick 30 mg/dl (Negative); Urine Bilirubin Dipstick Negative (Negative); Urine Clarity Sl. Cloudy (Clear); Urine Urobilinogen Normal (Normal); Urine pH 6.5 (5.0 - 8.0)
[2024-05-18 21:48] LABS: Bacteria 1+ /hpf (None Seen); Red Blood Cells-Urine 0-5 SEEN /hpf (0-5); White Blood Cells 10-25 SEEN /hpf (0-5)
[2024-05-18 21:53] LABS: Troponin-I HS 22 pg/mL (3.0-78.0)
[2024-05-18 21:54] LABS: Differential Comment SCANNED
--- NOTE | 2024-05-18 22:16 | HP.PCM.HOS_ITS ---
HPI - General General Date of Admission: 05/18/24 Date of Service: 05/18/24 Chief Complaint: Congestion, rhinorrhea, cough, dyspnea, with COVID, + home testing, confused. HPI Narrative The patient is a 78 y/o M w/ PMHx: CKD stage III per GFR trending unclear subtype, Venous stasis disease, Chronic BL LE Edema, Hx TIA, Hx VTE (DVT, PE), COPD with chronic hypoxic respiratory failure 2 L NC nightly, HTN, HLD, Former tobacco use, PAF, Valvular Heart Disease s/p TAVR, BPH, NOAM who presents to the [facility] ED on 05/18/24 with history of onset dyspnea, progressively worsening with onset of confusion as well as fever noted to be 100 at home starting the day prior with positive home COVID testing prompting family to bring him in for evaluation to be cautious. Patient also reported and family reported that his had COVID 2 to 3 days prior. Per family he has been having congestion and rhinorrhea, cough and dyspnea as well as generalized weakness. Patient family also reports that patient has had significant recent increased urinary frequency. Daughter who is present notes that they all went to a wedding over the weekend and everyone since then has had upper respiratory type symptoms with positive COVID testing. She herself is in the ED with obvious altered voice, congestion and rhinorrhea. Workup in the ED included T1 100.2 oral, heart rate 124, BP 172/59, respiratory rate 18, 94% on room air with most recent repeat vitals T1 100.1 temporally, heart rate 105, BP 159/73, respiratory rate 22, 93% on 2 L nasal cannula, CBC with WBC 13.1, hemoglobin 14.5, MCV 95.7, platelet 177 with left shift and lymphopenia, BMP with BUN/creatinine 23/1.44, GFR 50, glucose 113 EKG with A-fib with RVR with rate 117 with nonspecific T wave changes with no acute evidence of ischemia, chest x-ray with increased interstitial markings possibly infection versus edema, follow-up SARS COVID/influenza/RSV PCR with positive COVID testing. In the ED patient ministered maintenance IV fluids, Tylenol 650 mg p.o. x 1 and DuoNeb therapy. [facility] Medical History Carcamo phlebectatica paraplantaris Venous ulcer of left leg Venous stasis dermatitis Leg edema, left Left leg swelling Chronic venous insufficiency Obesity (BMI 30-39.9) History of pulmonary embolism History of TIA (transient ischemic attack) Alcohol use Dietary restriction TIA (transient ischemic attack) History of pain when walking History of stress test Emphysema with chronic bronchitis Prostate disease High cholesterol History of COVID-19 Wears hearing aid Wears glasses Wears dentures Arthritis Pulmonary embolism Former smoker On home oxygen therapy COPD (chronic obstructive pulmonary disease) History of edema History of CHF (congestive heart failure) History of atrial fibrillation History of echocardiogram Cardiology follow-up encounter History of transcatheter aortic valve replacement (TAVR) (~07/10/21) History of left heart catheterization (LHC) (~05/06/21) Atherosclerotic heart disease of [place] coronary artery without angina pectoris Dyspnea on exertion Non-rheumatic mitral valve stenosis COVID-19 (~09/2020) Left-sided weakness Nonrheumatic aortic (valve) stenosis Nonrheumatic tricuspid (valve) insufficiency Other secondary pulmonary hypertension BPH (benign prostatic hyperplasia) Persistent atrial fibrillation Solitary pulmonary nodule NOAM (obstructive sleep apnea) Emphysema of lung Stage 1 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 Hyperlipidemia Hypertension Bilateral pulmonary embolism Atrial fibrillation Home Medications ?Medication ?Instructions ?Recorded ?Last Taken ?Type finasteride 5 mg tablet 5 mg PO DAILY prostate 09/24/15 09/01/23 History tamsulosin 0.4 mg capsule (Flomax) 0.8 mg PO QHS prostate 02/28/18 08/31/23 History Disability Placard #1 ea 01/01/21 Unknown Rx aspirin 81 mg capsule 81 mg PO DAILY 05/06/21 08/28/23 History inulin 2,500 mg-vitamin D3 500 2 tab PO DAILY 08/12/23 08/31/23 History unit chewable tablet (Fiber Gummies with Vitamin D3) polyethylene glycol 3350 17 17 g PO DAILY 08/12/23 08/31/23 History gram/dose oral powder (Miralax) atorvastatin 10 mg tablet 10 mg PO QDAY #90 tabs 08/27/23 08/31/23 Rx diltiazem HCl 120 mg tablet 120 mg PO BID 90 days #180 tabs 08/27/23 09/01/23 Rx metoprolol tartrate 75 mg tablet 75 mg PO BID #180 tabs 08/27/23 09/01/23 Rx oxycodone 5 mg tablet 5 - 10 mg (1 - 2 x 5 mg) PO Q4H 09/02/23 Unknown Rx PRN PRN Pain Score 4-10 5 days #42 tabs apixaban 5 mg tablet 5 mg PO BID blood thinner #180 tabs 11/29/23 Unknown Rx potassium chloride 20 mEq 30 meq PO DAILY 01/04/24 Unknown History tablet,extended release(part/cryst) (Klor-Con M) furosemide 40 mg tablet 40 mg PO DAILY fluid 05/09/24 Unknown History acetaminophen 500 mg tablet 1,300 mg PO DAILY PRN pain 05/18/24 Unknown History cholecalciferol (vitamin D3) 25 1,000 unit PO DAILY 05/18/24 Unknown History mcg (1,000 unit) capsule docusate sodium 250 mg capsule 250 mg PO BID 05/18/24 Unknown History Allergy/AdvReac Type Severity Reaction Status Date / Time lisinopril AdvReac Intermediate cough Verified 05/18/24 18:00 Family History Mother CVA (cerebral vascular accident) Diabetes Other Family history of CVA Family History other other (Patient/family does not know his father nor his paternal family history.) Surgical History History of left knee replacement History of heart surgery History of colonoscopy (~2010) History of left cataract surgery H/O oral surgery Social History household members: spouse Smoking Status: Former smoker pack-years: 40 Tobacco: How many years used: 40 how long ago did patient quit smokin second hand exposure: No alcohol intake: never substance use type: does not use caffeine: Yes Type: tea what type of physical activity do you participate in: none seatbelt use: always do you feel safe at home: Yes ROS ROS Narrative Admission Review of Systems: CONSTITUTIONAL: No weight loss, + fever, chills, weakness or fatigue. HEENT: + Congestion, rhinorrhea, mild sore throat. Eyes: No visual loss, blurred vision, double vision or yellow sclerae. Ears, Nose, Throat: No hearing loss, sneezing. SKIN: No rash or itching, lesions, wounds. CARDIOVASCULAR: + Chronic peripheral edema, palpitations. No chest pain, chest pressure or chest discomfort, orthopnea, syncopal events. RESPIRATORY: + Dyspnea, cough without marked sputum, occasional wheezing. No hemoptysis. GASTROINTESTINAL: + Decreased appetite. No nausea, vomiting or diarrhea, abdominal pain, melena, BRBPR. GENITOURINARY: + Increased urinary frequency. No dysuria, urgency or retention. NEUROLOGICAL: + Episode of confusion/encephalopathy. No headache, dizziness, syncope, paralysis, ataxia, numbness or tingling in the extremities, focal weakness, change in bowel or bladder control, seizure. MUSCULOSKELETAL: + muscle, back pain, joint pain or stiffness. HEMATOLOGIC: No anemia. + Easy bleeding/bruising. LYMPHATICS: No enlarged nodes. No history of splenectomy. PSYCHIATRIC: No history of depression or anxiety. ENDOCRINOLOGIC: + reports of sweating, cold or heat intolerance. No polyuria or polydipsia. ALLERGIES: No history of asthma, hives, eczema or rhinitis. Vital Signs Vital Signs Vital Signs: 05/18/24 18:00 05/18/24 18:00 05/18/24 18:11 Temperature 100.2 F H 100.2 F H Temperature Source Axillary Oral Pulse Rate 124 H 124 H Respiratory Rate 18 18 25 H Respiratory Effort Respiratory Pattern Blood Pressure 172/59 H 172/59 H Blood Pressure Mean 96 96 Pulse Ox 94 94 93 Oxygen Delivery Method Room Air Room Air Room Air Oxygen Flow Rate (L/min) 05/18/24 18:11 05/18/24 20:26 05/18/24 20:40 Temperature Temperature Source Pulse Rate 117 H 121 H Respiratory Rate 19 H 28 H Respiratory Effort Respiratory Pattern Blood Pressure 149/61 H Blood Pressure Mean 90 Pulse Ox 91 Oxygen Delivery Method Room Air Room Air Oxygen Flow Rate (L/min) 05/18/24 20:49 05/18/24 21:00 Temperature 100.1 F H Temperature Source Temporal Pulse Rate 105 H Respiratory Rate 22 H Respiratory Effort Labored Respiratory Pattern Tachypnea Blood Pressure 159/73 H Blood Pressure Mean 101 Pulse Ox 93 Oxygen Delivery Method Nasal Cannula Nasal Cannula Oxygen Flow Rate (L/min) 2 2 Weight Weight: 254 lb 10.142 oz Body Mass Index (BMI) 39.9 Physical Exam Narrative Physical Examination: General: Awake, alert, oriented to self, place and historical events which daughter confirms are correct, cooperative, seated upright in the ED bed, fatigued and ill-appearing, notes feeling improved, encephalopathy markedly improved daughter notes. Skin: Normal color, normal turgor, no icterus, no cyanosis except for occasional very stage ecchymoses, abrasions, bilateral lower extremity venous stasis skin changes. HEENT: AT/NC, EOMI, PERRLA, moderately dry MM, no carotid bruits or JVD noted. Lungs: Severely diminished, greater bases, mild increased respiratory rate but no distress, no rales, ronchi or wheezing. Heart: Irregular irregular; no gallop, rub audible, + SM. Abdomen: Soft, morbidly obese, NTTP, mildly hyperactive BS, difficult to discern distention HSM given habitus. Extremities: No cyanosis, no clubbing, bilateral lower extremity pedal to mid jean-baptiste chronic edema. Clubbing, or edema. Neurological: Patient awake, alert, oriented as noted, cognitive function intact; pupils equally reactive to light and accommodation, cranial nerves grossly normal, moving all 4 extremities, no focal deficits, strength severely globally decreased secondary to acute presentation. Psychiatric: Affect appears fatigued, ill-appearing, improved status since initial ED presentation has had been very encephalopathic, no acute evidence of depressive or anxiety feelings. Results Lab / Micro Data 05/18/24 20:25 05/18/24 20:25 Labs: Laboratory Results - last 24 hr 05/18/24 20:25: WBC 13.1 H, RBC 4.63, Hgb 14.5, Hct 44.3, MCV 95.7 H, MCH 31.3, MCHC 32.7, RDW Std Deviation 46.8 H, RDW Coeff of Zackary 13.3, Plt Count 177, MPV 9.9, Immature Gran % (Auto) 0.900, Neut % (Auto) 81.0 H, Lymph % (Auto) 4.2 L, M patience % (Auto) 12.8 H, Eos % (Auto) 0.5, Baso % (Auto) 0.6, Absolute Neuts (auto) 10.6 H, Absolute Lymphs (auto) 0.55 L, Nucleated RBC % 0, Differential Comment SCANNED, Diff Path Review January, Sodium 137, Potassium 4.1, Chloride 103, Carbon Dioxide 26.0, Anion Gap 8, BUN 23 H, Creatinine 1.44 H, Estim Creat Clear Calc 50.52, Est GFR (MDRD) Af Amer 61, Est GFR (MDRD) Non-Af 50 L, BUN/Creatinine Ratio 16.0, Glucose 113 H, Lactic Acid 1.3, Calcium 9.5, Troponin I High Sens 22 05/18/24 21:30: Urine Color Yellow, Urine Clarity Sl. Cloudy, Urine pH 6.5, Ur Specific [place] 1.010, Urine Protein 30 H, Urine Glucose (UA) Normal, Urine Ketones 5 H, Urine Occult Blood 25 H, Urine Nitrite Negative, Urine Bilirubin Negative, Urine Urobilinogen Normal, Ur Leukocyte Esterase 500 H, Urine RBC 0-5 SEEN, Urine WBC 10-25 SEEN, Ur Squamous Epith Cells 0 SEEN, Urine Bacteria 1+, Urine Mucus 0 SEEN Micro: Microbiology 05/18/24 20:25 Mucosa - Nose SARS-CoV-2, Influenza & RSV (PCR) - Final Rhythm Strip Rhythm Strip: A-fib Rate: 117 Ectopy: None Imaging Radiology Impression Chest X-Ray 05/18/24 21:00 IMPRESSION: Increased interstitial markings may represent edema and/or infection. Electronically Signed: Javier Hatfield MD at 21:21 EDT , Assessment & Plan Assessment/Plan (1) COVID-19: PLAN: Plan The patient is a 78 y/o M w/ PMHx: CKD stage III per GFR trending unclear subtype, Venous stasis disease, Chronic BL LE Edema, Hx TIA, Hx VTE (DVT, PE), COPD with chronic hypoxic respiratory failure 2 L NC nightly, HTN, HLD, Former tobacco use, PAF, Valvular Heart Disease s/p TAVR, BPH, NOAM who presents to the [facility] ED on 05/18/24 with history of onset dyspnea, progressively worsening with onset of confusion as well as fever noted to be 100 at home starting the day prior with positive home COVID testing prompting family to bring him in for evaluation to be cautious. Patient also reported and family reported that his had COVID 2 to 3 days prior. Per family he has been having congestion and rhinorrhea, cough and dyspnea as well as generalized weakness. #1. Acute hypoxia with associated dyspnea, acute encephalopathy secondary to acute infectious presentation secondary to Acute Viral Syndrome, COVID-19 and questionable superimposed CAP in addition to Possible Acute Complicated UTI: Will admit to the PCU given #2 although improved in the ED, will maintain on COVID precautions, will maintain on oxygen with wean as tolerated to room air, PRN albuterol, ATC budesonide therapy, will place on IV Rocephin and azithromycin given chest x-ray with possible superimposed bacterial pneumonia although certainly could be COVID-pneumonia alone but also urinalysis with 25 occult blood, 500 leukocyte esterase with 10-25 urine WBCs with 1+ urine bacteria with urine culture pending per ED and urinary frequency complaint per patient and family reported recently, we will de-escalate antibiotic therapy if workup with more significant for primarily COVID viral pneumonia only also pending of course urine culture, encourage HOB, IS parameters w/ pending D- dimer, procalcitonin, CRP, CPK, Ferritin, LDH and BNP, will obtain hepatic profile, will continue supportive care including q 2 hour turning including prone given no prone bed availability and judicious hydration if necessary, closely monitor for worsening status for ARDS and multiorgan failure, will initiate and continue IV decadron x 10 doses, given presentation will also initiate IV remdesivir. PT/OT/CM consultation for discharge planning. #2. PAF with RVR: Secondary to acute presentation #1, EKG upon presentation with atrial fibrillation with RVR, we will continue patient home apixaban as well as diltiazem and metoprolol regimen with parameters as needed, will dose now with home diltiazem and metoprolol with continued close BP monitoring. Mag pending. #3. Valvular Heart Disease: s/p TAVR [facility], following locally with cardiology with last visit noted 04/2024, most recent noted echocardiogram performed at [facility] with LVEF normal, EF 60%, severely dilated LA, TAVR valve stable with a report of a peak gradient 24 mmHg, mean gradient 30 mmHg, dimensionless valve index 0.36 and trace AI with visualized aorta borderline dilated with maximal dimension of 3.8 cm. #4. Chronic COPD with chronic hypoxic respiratory failure 2 L NC nightly: Will maintain on oxygen with wean as tolerated to room air however given presentation likely will need supplementation as noted # 1, will maintain on ATC budesonide therapy, PRN albuterol, HOB, IS parameters. #5. History of VTE: Patient status post history DVT, PE, continue patient home Eliquis regimen. #6. History of TIA: We will continue home apixaban, statin, hypertensive regimen as noted. #7. Former tobacco use: Encourage continued tobacco cessation. #8. Hypertension: Continue home regimen including Lasix, metoprolol, diltiazem with hold parameters as needed, PRN hydralazine. #9. Hyperlipidemia: We will continue patient on statin therapy. #10. Chronic bilateral lower extremity edema/lymphedema: Will place neck Neil wraps with elevation. #11. BPH: We will continue patient home Flomax and finasteride home regimen. #12. Chronic Kidney Disease Stage III per GFR trending primarily, unclear subtype: Admission BUN/Cr 23/1.44, GFR 50 however primarily in the low 60 range per trending review, baseline renal function 1.1-1.2, repeat BMP in AM. #13. NOAM: Utilizes oxygen supplementation nightly only. #14. DVT prophylaxis: Will continue patient on apixaban regimen. #15. CODE status: Patient HCPOA and living will are not in place but his he notes would be his decision-maker if necessary. Discussed CODE status at length including difference between FULL code, DNR-CCA and DNR-CC status. Following discussions about the differences in these status, requested Full Code status. Patient is amenable to Airvo and BiPAP if necessary and amenable to usage of antiviral medication. Advanced Care Planning Face to Face Time: 16 minutes. Charges/Coding Visit Charges Inpatient E&M: 43821 Init Hosp L3 Procedures Hospitalists Procedures: 92866 Advncd Care Plan 30 Min
[2024-05-18] MEDS: Ceftriaxone 1 GM/50 ML BAG IV (22:48)
[2024-05-18] MEDS: dexAMETHasone 10 MG/ML Vial 6 MG IV (22:49)
--- NOTE | 2024-05-18 22:50 | CPS ---
pt wears 2 l/m via nc at night -does not have home cpap/bipap machine doesnt want hospitals
[2024-05-18 22:55] LABS: AST(SGOT) 22 U/L (15-37); Alanine Aminotransfer ALT/SGPT 24 U/L (16-61); Albumin, Serum 3.8 g/dL (3.2-5.0); Alkaline Phosphatase 96 U/L (45-117); Bilirubin, Direct 0.31 mg/dL (0.00-0.30); CPK Total, Creatine Kinase 183 U/L (39-308); Ferritin 233 ng/mL (26-388); Globulin 4.2 g/dL (2.2-4.2); LDH 297 U/L (87-241); Magnesium 2.3 mg/dL (1.6-2.6)
[2024-05-18 23:01] LABS: BNP,B-Type NATRIURETIC PEPTIDE 232.2 pg/mL (0-100)
[2024-05-18 23:02] LABS: D-Dimer Quantitative (DVT/PE) 0.53 FEU/ug/m (0.27-0.49)
[2024-05-19] VITALS (14 sets, daily range): BP systolic 107–133; BP diastolic 55–67; PULSE 71–105; RESP 16–20; TEMP 35.9–36.9; O2SAT 92–99; BMI 38.0
[2024-05-19] MEDS: Azithromycin 500 MG in Dextrose 5%-Water (250mL Bag) 250 ML 250 MG IV (01:03)
[2024-05-19] MEDS: 0.9% Saline Lock 10 ML Syringe IV ×2 (01:04→09:54)
[2024-05-19] MEDS: Remdesivir 200 MG in 0.9% Normal Saline (250mL Bag) 210 ML 250 MG IV (01:04)
[2024-05-19 01:32] LABS: Procalcitonin 0.15 ng/mL (0.00-0.09)
[2024-05-19] MEDS: Budesonide Respules 0.5 MG/2 ML AMPUL.NEB. INHALATION (06:53)
[2024-05-19 07:40] LABS: Absolute Lymphocyte Count 0.49 X10^3/uL (0.83-4.51); Absolute Neutrophil Count 6.3 X10^3/uL (2.0-7.7); Basophil# 0.03 X10^3/uL; Basophil% 0.4 % (0-1); Hematocrit 40.2 % (40-54); Lymphocyte # 0.49 X10^3/ul (0.83-4.51); Lymphocyte % 6.7 % (19-41); Mean Corp Hgb Conc 32.3 g/dL (32-36); Mean Corpuscular Hgb 31.7 pg (27.0-32.0); Mean Platelet Vol. 9.4 fl (6.2-12.0); Monocyte# 0.45 X10^3/uL; Monocyte% 6.2 % (0-10); NRBC Flagged by Analyzer 0 % (0-5); Neutrophil # 6.25 X10^3/uL (2.7-7.7); POSITIVE DIFFERENTIAL YES; Platelet Count 152 K/mm3 (150-450); RBC Distribution Width CV 13.2 % (11.6-14.6); RBC Distribution Width SD 47.2 fl (35.1-43.9); White Blood Count 7.3 K/mm3 (4.4-11.0)
--- NOTE | 2024-05-19 08:27 | PCM.PN.HOSP ---
Reason for Visit Reason for Visit: Diagnoses COVID-19 (05/18/24) Subjective Subjective Patient is a 78-year-old lady who presented with shortness of breath fever as well as some confusion. She had previously tested positive for COVID. Chest x-ray obtained on admission demonstrated Increased interstitial markings may represent edema and/or infection. Admitted to monitored bed for subsequent management Objective Data Objective Data Vital Signs: Vital Signs Temp Pulse Resp BP Pulse Ox O2 Del Method O2 Flow Rate 98.5 F 105 H 20 H 133/67 H 93 Nasal Cannula 5 05/19/24 05:59 05/19/24 06:54 05/19/24 06:54 05/19/24 05:59 05/19/24 06:54 05/19/24 06:54 05/19/24 06:54 Oxygen Flow Rate (L/min) 5 Oxygen Delivery Method Nasal Cannula Weight: 110.2 kg Body Mass Index (BMI) 38.0 Intake & Output: Intake and Output for Last 24 Hours 05/17/24 05/18/24 05/19/24 23:59 23:59 23:59 Intake Total 50 / 50 1565 / 1565 Output Total 100 / 100 Balance 50 / 50 1465 / 1465 Lab / Micro Data 05/19/24 07:19 05/19/24 07:19 Labs: Laboratory Results - last 24 hr 05/18/24 20:25: WBC 13.1 H, RBC 4.63, Hgb 14.5, Hct 44.3, MCV 95.7 H, MCH 31.3, MCHC 32.7, RDW Std Deviation 46.8 H, RDW Coeff of Zackary 13.3, Plt Count 177, MPV 9.9, Immature Gran % (Auto) 0.900, Neut % (Auto) 81.0 H, Lymph % (Auto) 4.2 L, [place] % (Auto) 12.8 H, Eos % (Auto) 0.5, Baso % (Auto) 0.6, Absolute Neuts (auto) 10.6 H, Absolute Lymphs (auto) 0.55 L, Nucleated RBC % 0, Differential Comment SCANNED, Diff Path Review May foll, D-Dimer Quant (PE/DVT) 0.53 H*, Sodium 137, Potassium 4.1, Chloride 103, Carbon Dioxide 26.0, Anion Gap 8, BUN 23 H, Creatinine 1.44 H, Estim Creat Clear Calc 50.52, Est GFR (MDRD) Af Amer 61, Est GFR (MDRD) Non-Af 50 L, BUN/Creatinine Ratio 16.0, Glucose 113 H, Lactic Acid 1.3, Calcium 9.5, Magnesium 2.3, Ferritin 233, Total Bilirubin 0.90, Direct Bilirubin 0.31 H, AST 22, ALT 24, Alkaline Phosphatase 96, Lactate Dehydrogenase 297 H, Total Creatine Kinase 183, Troponin I High Sens 22, C-React Prot Ext Range 57.30 H, B-Natriuretic Peptide 232.2 H, Total Protein 8.0, Albumin 3.8, Globulin 4.2 05/18/24 21:30: Urine Color Yellow, Urine Clarity Sl. Cloudy, Urine pH 6.5, Ur Specific [place] 1.010, Urine Protein 30 H, Urine Glucose (UA) Normal, Urine Ketones 5 H, Urine Occult Blood 25 H, Urine Nitrite Negative, Urine Bilirubin Negative, Urine Urobilinogen Normal, Ur Leukocyte Esterase 500 H, Urine RBC 0-5 SEEN, Urine WBC 10-25 SEEN, Ur Squamous Epith Cells 0 SEEN, Urine Bacteria 1+, Urine Mucus 0 SEEN 05/19/24 00:57: Procalcitonin 0.15 H 05/19/24 07:19: WBC 7.3, RBC 4.10 L, Hgb 13.0, Hct 40.2, MCV 98.0 H, MCH 31.7, MCHC 32.3, RDW Std Deviation 47.2 H, RDW Coeff of Zackary 13.2, Plt Count 152, MPV 9.4, Immature Gran % (Auto) 0.700, Neut % (Auto) 86.0 H, Lymph % (Auto) 6.7 L, [place] % (Auto) 6.2, Eos % (Auto) 0.0, Baso % (Auto) 0.4, Absolute Neuts (auto) 6.3, Absolute Lymphs (auto) 0.49 L, Nucleated RBC % 0 Micro: Microbiology 05/18/24 20:25 Mucosa - Nose SARS-CoV-2, Influenza & RSV (PCR) - Final Radiography Diagnostic Testing: Radiology Impression Chest X-Ray 05/18/24 21:00 IMPRESSION: Increased interstitial markings may represent edema and/or infection. Electronically Signed: Javier Hatfield MD at 21:21 EDT , Rhythm Strip Rhythm Strip: A-fib Rate: 117 Ectopy: None Physical Exam Narrative GENERAL: cooperative HEENT: Atraumatic; normocephalic EYES; Anicteric, Normal Conjunctiva NECK; supple, normal thyroid, RESPIRATORY: Diminished to auscultation CARDIOVASCULAR: Regular S1 S2, GI: soft, normoactive bowel sounds, : No Renal angle tenderness; EXTREMITIES: No edema, no clubbing, MUSCULOSKELETAL: no muscle wasting NEURO: Awake; no lateralizing signs. SKIN: No Rash PSYCH; Flat affect Assessment & Plan Assessment/Plan (1) COVID-19: PLAN: Plan Patient is a 78-year-old lady who presented with shortness of breath fever as well as some confusion. She had previously tested positive for COVID. Chest x-ray obtained on admission demonstrated Increased interstitial markings may represent edema and/or infection. Admitted to monitored bed for subsequent management 1. Acute hypoxia ? Secondary to COVID-19 admitted to a monitored bed for symptom management. Patient was started on Decadron as well as remdesivir on admission. 2. Paroxysmal A-fib with RVR ? Patient is on diltiazem as well as metoprolol continue also on systemic anticoagulation with apixaban 3. Valvular heart disease ? Status post TAVR at [facility] patient remained stable 4. Chronic hypoxic respiratory failure ? Secondary to COPD patient is on 2 L home oxygen at baseline 5. BPH with lower urinary obstructive symptoms - Patient treated with tamsulosin and finasteride 6. Hypertension ? Blood pressure controlled, home medications continued with dose adjustment as needed 7. 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 Patient is a stable anticoagulation with apixaban continue 9.Acute cystitis ? Patient started on ceftriaxone, urine culture sent 10. Acute kidney injury ? Baseline creatinine from 09/02/2023 was 1.12, creatinine on admission was 1.44 patient is on furosemide held daily monitoring with BMP ordered 11. DVT prophylaxis ? On apixaban Time spent in the patient's overall evaluation,decision-making process, review of diagnostic data, adjustment of management, discussion with other providers, nursing nursing and ancillary staff involved in patient's care documentation,52 Minutes Charges/Coding Visit Charges Inpatient E&M: 22209 Disch Hosp >30min
[2024-05-19 09:18] LABS: ALB/GLOB Ratio 0.8 RATIO (0.9-2.4); AST(SGOT) 20 U/L (15-37); Alanine Aminotransfer ALT/SGPT 22 U/L (16-61); Alkaline Phosphatase 79 U/L (45-117); Anion Gap 5 (5-15); BUN 21 mg/dL (7-18); BUN/Creat Ratio 16.9 RATIO (10-20); Calcium,Total 8.9 mg/dL (8.5-10.1); Chloride 108 mmol/L (98-107); Creatinine, Serum 1.24 mg/dL (0.70-1.30); EST Glomerular Filtration Rate 60 mL/min (>60); Est Glom Filt Rate - Afr Amer 72 mL/min (>60); Estimated Creatinine Clearance 57.21 ml/min; Globulin 3.7 g/dL (2.2-4.2); Glucose 147 mg/dL (74-106); Potassium 3.9 mmol/L (3.5-5.1); Protein, Total 6.7 g/dL (6.4-8.2); Sodium Level 138 mmol/L (136-145)
[2024-05-19] MEDS: Polyethylene Glycol 3350 17 GM PACKET PO (09:53)
[2024-05-19] MEDS: Docusate Sodium 100 MG/10 ML UDC 250 MG PO ×2 (09:54→22:44)
[2024-05-19] MEDS: dexAMETHasone 4 MG/ML Vial 6 MG IV (09:54)
[2024-05-19] MEDS: Metoprolol Tartrate 25 MG Tablet 75 MG PO ×2 (09:55→22:44)
[2024-05-19] MEDS: Aspirin 81 MG TAB.CHEW PO (09:55)
[2024-05-19] MEDS: Potassium Chloride Oral Tablet 10 MEQ 30 MEQ PO (09:55)
[2024-05-19] MEDS: APIXABAN 5 MG TABLET PO ×2 (09:55→22:44)
[2024-05-19] MEDS: Furosemide 40 MG Tablet PO (09:55)
[2024-05-19] MEDS: Finasteride 5 MG Tablet PO (09:56)
[2024-05-19] MEDS: dilTIAZem 60 MG CAP.SR.12H 120 MG PO ×2 (09:56→22:43)
[2024-05-19 10:21] LABS: Pathologist Review Reviewed
--- NOTE | 2024-05-19 11:07 | CASEMGMT ---
RN GLADYS Assessment Face to Face with patient for initial transition planning/care coordination assessment. RN CM introduced self and role at [facility], pt voices understanding. Pt is A&Ox4 and is resting comfortably in bed and is calm. Care providers, pharmacy, and demographics verified. Admitting dx: COVID, PAF RVR LACE Strata: 2 PCP: Tomy Hernandez Specialists: Adonis (Ortho), [facility], [facility] Preferred Pharmacy: [facility] Insurance: [employer] [facility] Prescription Benefit: Yes LNOK: Sarah Marrero (W), Kristina Marrero ([place]) Living Arrangements: Pt lives with his and daughter in a single story home with 5 steps to enter ADLs/IADLs: Ind Transportation: Self, , daughter DME: [employer]. RTS. Walk in shower with seat. BP Monitor. Pulse Ox. Oxygen concentrator. Pt states that he wears 2L of oxygen @ HS only through [facility] [place] [facility]. Pt states that he does not have any portable tanks. HHC/SNF: States HH Hx with [facility]. Denies SNF Hx or needs Pt?s goal: Home Plan: Home with family. 6-Click is 22. Pt denies the need for HHC, OP Tx, SNF, CCN or pt Link. Pt states that he wishes to Dc home with his family once he is medically ready and denies further questions or concerns at this time. CM to follow oxygen needs. Report given to DISPLAY DIRECTOR CM. Roxanne Toure RN, CM
[2024-05-19] MEDS: Atorvastatin Calcium 10 MG Tablet PO (22:44)
[2024-05-19] MEDS: Tamsulosin HCl 0.4 MG Capsule 0.8 MG PO (22:44)
[2024-05-19] MEDS: Remdesivir 100 MG in 0.9% Normal Saline (250mL Bag) 230 ML 250 MG IV (23:01)
[2024-05-19] MEDS: Ceftriaxone 1 GM/50 ML BAG IV (23:01)
[2024-05-20] VITALS (7 sets, daily range): BP systolic 103–126; BP diastolic 56–70; PULSE 67–83; RESP 16–20; TEMP 35.8–36.4; O2SAT 94–95; BMI 38.2
[2024-05-20] MEDS: Azithromycin 500 MG in Dextrose 5%-Water (250mL Bag) 250 ML 250 MG IV (00:05)
--- NOTE | 2024-05-20 07:50 | PN.HOSP_ITS ---
Reason for Visit Reason for Visit: Diagnoses COVID-19 (05/18/24) Subjective Subjective Patient seen continues to improve clinically results of urine cultures reviewed Objective Data Objective Data Vital Signs: Vital Signs Temp Pulse Resp BP Pulse Ox O2 Del Method O2 Flow Rate 97.0 F L 72 16 103/70 95 Nasal Cannula 2 05/20/24 03:43 05/20/24 03:43 05/20/24 03:43 05/20/24 03:43 05/20/24 03:43 05/20/24 04:00 05/20/24 04:00 Oxygen Flow Rate (L/min) 2 Oxygen Delivery Method Nasal Cannula Weight: 110.7 kg Body Mass Index (BMI) 38.2 Intake & Output: Intake and Output for Last 24 Hours 05/18/24 05/19/24 05/20/24 23:59 23:59 23:59 Intake Total 50 / 50 2405 / 2655 805 / 805 Output Total 100 / 275 175 / 175 Balance 50 / 50 2305 / 2380 630 / 630 Lab / Micro Data 05/20/24 08:56 05/20/24 08:56 Labs: Laboratory Results - last 24 hr 05/18/24 20:25: Diff Path Review Reviewed 05/19/24 07:19: Sodium 138, Potassium 3.9, Chloride 108 H, Carbon Dioxide 25.0, Anion Gap 5, BUN 21 H, Creatinine 1.24, Estim Creat Clear Calc 57.21, Est GFR (MDRD) Af Amer 72, Est GFR (MDRD) Non-Af 60, BUN/Creatinine Ratio 16.9, Glucose 147 H, Calcium 8.9, Total Bilirubin 0.50, AST 20, ALT 22, Alkaline Phosphatase 79, Total Protein 6.7, Albumin 3.0 L, Globulin 3.7, Albumin/Globulin Ratio 0.8 L Micro: Microbiology 05/18/24 20:25 Mucosa - Nose SARS-CoV-2, Influenza & RSV (PCR) - Final SARS-CoV-2 (COVID 19 PCR) 05/18/24 21:30 Urine, Clean Catch Urine Culture - Preliminary Presumptive E. coli Rhythm Strip Rhythm Strip: A-fib Rate: 117 Ectopy: None Physical Exam Narrative GENERAL: cooperative HEENT: Atraumatic; normocephalic EYES; Anicteric, Normal Conjunctiva NECK; supple, normal thyroid, RESPIRATORY: Diminished to auscultation CARDIOVASCULAR: Regular S1 S2, GI: soft, normoactive bowel sounds, : No Renal angle tenderness; EXTREMITIES: No edema, no clubbing, MUSCULOSKELETAL: no muscle wasting NEURO: Awake; no lateralizing signs. SKIN: No Rash PSYCH; Flat affect Assessment & Plan Assessment/Plan (1) COVID-19: PLAN: Plan Patient is a 78-year-old lady who presented with shortness of breath fever as well as some confusion. She had previously tested positive for COVID. Chest x- ray obtained on admission demonstrated Increased interstitial markings may represent edema and/or infection. Admitted to monitored bed for subsequent management 1. Acute hypoxia ? Secondary to COVID-19 admitted to a monitored bed for symptom management. Patient was started on Decadron as well as remdesivir on admission. 2. Paroxysmal A-fib with RVR ? Patient is on diltiazem as well as metoprolol continue also on systemic anticoagulation with apixaban 3. Valvular heart disease ? Status post TAVR at [facility] patient remained stable 4. Chronic hypoxic respiratory failure ? Secondary to COPD patient is on 2 L home oxygen at baseline 5. BPH with lower urinary obstructive symptoms - Patient treated with tamsulosin and finasteride 6. Hypertension ? Blood pressure controlled, home medications continued with dose adjustment as needed 7. 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 Patient is a stable anticoagulation with apixaban continue 9.Acute cystitis ? Patient started on ceftriaxone, urine culture sent ? 05/20/2024 urine cultures positive for presumptive E. coli with nonsignificant colony count and alphahemolytic organism final studies pending. Patient ceftriaxone discontinued started on Levaquin 10. Acute kidney injury ? Baseline creatinine from 09/02/2023 was 1.12, creatinine on admission was 1.44 patient is on furosemide held daily monitoring with BMP ordered ? 05/20/2024; OSCAR resolved 11. DVT prophylaxis ? On apixaban Time spent in the patient's overall evaluation,decision-making process, review of diagnostic data, adjustment of management, discussion with other providers, nursing nursing and ancillary staff involved in patient's care documentation, 40 Minutes Charges/Coding Visit Charges Inpatient E&M: 23691 Subs Hosp L2
[2024-05-20] MEDS: Polyethylene Glycol 3350 17 GM PACKET PO (08:46)
[2024-05-20] MEDS: APIXABAN 5 MG TABLET PO ×2 (08:47→22:15)
[2024-05-20] MEDS: Aspirin 81 MG TAB.CHEW PO (08:47)
[2024-05-20] MEDS: Finasteride 5 MG Tablet PO (08:47)
[2024-05-20] MEDS: Furosemide 40 MG Tablet PO (08:47)
[2024-05-20] MEDS: Metoprolol Tartrate 25 MG Tablet 75 MG PO ×2 (08:47→22:14)
[2024-05-20] MEDS: dilTIAZem 60 MG CAP.SR.12H 120 MG PO ×2 (08:47→22:14)
[2024-05-20] MEDS: Potassium Chloride Oral Tablet 10 MEQ 30 MEQ PO (08:48)
[2024-05-20] MEDS: dexAMETHasone 4 MG/ML Vial 6 MG IV (08:48)
[2024-05-20 09:12] LABS: Absolute Lymphocyte Count 0.62 X10^3/uL (0.83-4.51); Absolute Neutrophil Count 9.7 X10^3/uL (2.0-7.7); Basophil# 0.01 X10^3/uL; Basophil% 0.1 % (0-1); Hematocrit 41.7 % (40-54); Hemoglobin 13.6 g/dL (13.0-16.5); Lymphocyte # 0.62 X10^3/ul (0.83-4.51); Lymphocyte % 5.6 % (19-41); Mean Corp Hgb Conc 32.6 g/dL (32-36); Mean Corpuscular Hgb 31.9 pg (27.0-32.0); Mean Corpuscular Volume 97.7 fL (80-94); Mean Platelet Vol. 9.8 fl (6.2-12.0); Monocyte# 0.75 X10^3/uL; Monocyte% 6.8 % (0-10); NRBC Flagged by Analyzer 0 % (0-5); Neutrophil # 9.67 X10^3/uL (2.7-7.7); Platelet Count 183 K/mm3 (150-450); RBC Distribution Width CV 13.2 % (11.6-14.6); RBC Distribution Width SD 47.3 fl (35.1-43.9); Red Blood Count 4.27 M/mm3 (4.6-6.2); White Blood Count 11.1 K/mm3 (4.4-11.0)
[2024-05-20 09:34] LABS: Anion Gap 4 (5-15); BUN 25 mg/dL (7-18); BUN/Creat Ratio 22.7 RATIO (10-20); Chloride 110 mmol/L (98-107); EST Glomerular Filtration Rate 69 mL/min (>60); Est Glom Filt Rate - Afr Amer 83 mL/min (>60); Estimated Creatinine Clearance 64.65 ml/min; Glucose 168 mg/dL (74-106); Magnesium 2.3 mg/dL (1.6-2.6); Potassium 4.1 mmol/L (3.5-5.1); Sodium Level 140 mmol/L (136-145)
[2024-05-20 09:39] LABS: Phosphorus 2.7 mg/dL (2.5-4.9)
[2024-05-20] MEDS: levoFLOXacin 750 MG Tablet PO (12:21)
[2024-05-20] MEDS: Budesonide Respules 0.5 MG/2 ML AMPUL.NEB. INHALATION (20:08)
--- NOTE | 2024-05-20 20:56 | CPS ---
Patient refused PAP therapy for night time use
[2024-05-20] MEDS: Tamsulosin HCl 0.4 MG Capsule 0.8 MG PO (22:14)
[2024-05-20] MEDS: Atorvastatin Calcium 10 MG Tablet PO (22:15)
[2024-05-21 03:06] VITALS: BMI 38.1
[2024-05-21 04:06] VITALS: BP 104/65; PULSE 73; RESP 16; TEMP 36.5; O2SAT 94
[2024-05-21 06:34] LABS: Absolute Lymphocyte Count 0.77 X10^3/uL (0.83-4.51); Basophil# 0.03 X10^3/uL; Basophil% 0.2 % (0-1); Hematocrit 42.3 % (40-54); Hemoglobin 13.4 g/dL (13.0-16.5); Lymphocyte # 0.77 X10^3/ul (0.83-4.51); Mean Corp Hgb Conc 31.7 g/dL (32-36); Mean Corpuscular Hgb 30.9 pg (27.0-32.0); Mean Corpuscular Volume 97.7 fL (80-94); Monocyte# 0.97 X10^3/uL; Monocyte% 7.6 % (0-10); NRBC Flagged by Analyzer 0 % (0-5); Neutrophil # 10.98 X10^3/uL (2.7-7.7); Neutrophil % 85.6 % (47-70); Platelet Count 203 K/mm3 (150-450); RBC Distribution Width CV 13.4 % (11.6-14.6); RBC Distribution Width SD 48.3 fl (35.1-43.9); Red Blood Count 4.33 M/mm3 (4.6-6.2); White Blood Count 12.8 K/mm3 (4.4-11.0)
[2024-05-21 06:55] LABS: Anion Gap 5 (5-15); BUN 28 mg/dL (7-18); BUN/Creat Ratio 27.2 RATIO (10-20); Calcium,Total 8.9 mg/dL (8.5-10.1); Chloride 110 mmol/L (98-107); Creatinine, Serum 1.03 mg/dL (0.70-1.30); EST Glomerular Filtration Rate 74 mL/min (>60); Est Glom Filt Rate - Afr Amer 89 mL/min (>60); Estimated Creatinine Clearance 68.98 ml/min; Glucose 137 mg/dL (74-106); Magnesium 2.2 mg/dL (1.6-2.6); Phosphorus 3.1 mg/dL (2.5-4.9); Potassium 4.4 mmol/L (3.5-5.1); Sodium Level 141 mmol/L (136-145)
--- NOTE | 2024-05-21 07:44 | PN.HOSP_ITS ---
Reason for Visit Reason for Visit: Diagnoses COVID-19 (05/18/24) Subjective Subjective Patient seen clinical condition continues to improve. Final urine cultures positive for presumptive E. coli as well as Aerococcus sensitivities reviewed. Objective Data Objective Data Vital Signs: Vital Signs Temp Pulse Resp BP Pulse Ox O2 Del Method O2 Flow Rate 97.7 F L 73 16 104/65 94 Nasal Cannula 2 05/21/24 04:06 05/21/24 04:06 05/21/24 04:06 05/21/24 04:06 05/21/24 04:06 05/21/24 04:06 05/21/24 04:06 Oxygen Flow Rate (L/min) 2 Oxygen Delivery Method Nasal Cannula Weight: 110.5 kg Body Mass Index (BMI) 38.1 Intake & Output: Intake and Output for Last 24 Hours 05/19/24 05/20/24 05/21/24 23:59 23:59 23:59 Intake Total 2405 / 2655 1205 / 1445 480 / 480 Output Total 100 / 275 175 / 575 400 / 400 Balance 2305 / 2380 1030 / 870 80 / 80 Lab / Micro Data 05/21/24 06:00 05/21/24 06:00 Labs: Laboratory Results - last 24 hr 05/20/24 08:56: WBC 11.1 H, RBC 4.27 L, Hgb 13.6, Hct 41.7, MCV 97.7 H, MCH 31.9, MCHC 32.6, RDW Std Deviation 47.3 H, RDW Coeff of Zackary 13.2, Plt Count 183, MPV 9.8, Immature Gran % (Auto) 0.500, Neut % (Auto) 87.0 H, Lymph % (Auto) 5.6 L, [place] % (Auto) 6.8, Eos % (Auto) 0.0, Baso % (Auto) 0.1, Absolute Neuts (auto) 9.7 H, Absolute Lymphs (auto) 0.62 L, Nucleated RBC % 0, Sodium 140, Potassium 4.1, Chloride 110 H, Carbon Dioxide 26.0, Anion Gap 4 L, BUN 25 H, Creatinine 1.10, Estim Creat Clear Calc 64.65, Est GFR (MDRD) Af Amer 83, Est GFR (MDRD) Non-Af 69, BUN/Creatinine Ratio 22.7 H, Glucose 168 H, Calcium 9.0, Phosphorus 2.7, Magnesium 2.3 05/21/24 06:00: WBC 12.8 H, RBC 4.33 L, Hgb 13.4, Hct 42.3, MCV 97.7 H, MCH 30.9, MCHC 31.7 L, RDW Std Deviation 48.3 H, RDW Coeff of Zackary 13.4, Plt Count 203, MPV 10.0, Immature Gran % (Auto) 0.600, Neut % (Auto) 85.6 H, Lymph % (Auto) 6.0 L, [place] % (Auto) 7.6, Eos % (Auto) 0.0, Baso % (Auto) 0.2, Absolute Neuts (auto) 11.0 H, Absolute Lymphs (auto) 0.77 L, Nucleated RBC % 0, Sodium 141, Potassium 4.4, Chloride 110 H, Carbon Dioxide 26.0, Anion Gap 5, BUN 28 H, Creatinine 1.03, Estim Creat Clear Calc 68.98, Est GFR (MDRD) Af Amer 89, Est GFR (MDRD) Non-Af 74, BUN/Creatinine Ratio 27.2 H, Glucose 137 H, Calcium 8.9, Phosphorus 3.1, Magnesium 2.2 Micro: Microbiology 05/18/24 21:30 Urine, Clean Catch Urine Culture - Preliminary Presumptive E. coli Alpha hemolytic organism 05/18/24 20:25 Mucosa - Nose SARS-CoV-2, Influenza & RSV (PCR) - Final SARS-CoV-2 (COVID 19 PCR) Rhythm Strip Rhythm Strip: A-fib Rate: 117 Ectopy: None Physical Exam Narrative GENERAL: cooperative HEENT: Atraumatic; normocephalic EYES; Anicteric, Normal Conjunctiva NECK; supple, normal thyroid, RESPIRATORY: Diminished to auscultation CARDIOVASCULAR: Regular S1 S2, GI: soft, normoactive bowel sounds, : No Renal angle tenderness; EXTREMITIES: No edema, no clubbing, MUSCULOSKELETAL: no muscle wasting NEURO: Awake; no lateralizing signs. SKIN: No Rash PSYCH; Flat affect Assessment & Plan Assessment/Plan (1) COVID-19: PLAN: Plan Patient is a 78-year-old lady who presented with shortness of breath fever as well as some confusion. She had previously tested positive for COVID. Chest x- ray obtained on admission demonstrated Increased interstitial markings may represent edema and/or infection. Admitted to monitored bed for subsequent management 1. Acute hypoxia ? Secondary to COVID-19 admitted to a monitored bed for symptom management. Patient was started on Decadron as well as remdesivir on admission. 2. Paroxysmal A-fib with RVR ? Patient is on diltiazem as well as metoprolol continue also on systemic anticoagulation with apixaban 3. Valvular heart disease ? Status post TAVR at [facility] patient remained stable 4. Chronic hypoxic respiratory failure ? Secondary to COPD patient is on 2 L home oxygen at baseline 5. BPH with lower urinary obstructive symptoms - Patient treated with tamsulosin and finasteride 6. Hypertension ? Blood pressure controlled, home medications continued with dose adjustment as needed 7. 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 Patient is a stable anticoagulation with apixaban continue 9.Acute cystitis with UTI and erectile ? Patient started on ceftriaxone, urine culture sent ? 05/20/2024 urine cultures positive for presumptive E. coli with nonsignificant colony count and alphahemolytic organism final studies pending. Patient ceftriaxone discontinued started on Levaquin -05/21/2024;Final urine cultures positive for presumptive E. coli as well as Aerococcus sensitivities reviewed.. Discharged on ciprofloxacin 10. Acute kidney injury ? Baseline creatinine from 09/02/2023 was 1.12, creatinine on admission was 1.44 patient is on furosemide held daily monitoring with BMP ordered ? 05/20/2024; OSCAR resolved 11. DVT prophylaxis ? On apixaban Time spent in the patient's overall evaluation,decision-making process, review of diagnostic data, adjustment of management, discussion with other providers, nursing nursing and ancillary staff involved in patient's care documentation, 36 Minutes
[2024-05-21 08:03] VITALS: PULSE 87; RESP 20; O2SAT 95
[2024-05-21] MEDS: Budesonide Respules 0.5 MG/2 ML AMPUL.NEB. INHALATION (08:03)
--- NOTE | 2024-05-21 08:37 | DS.PCM_ITS ---
Providers Date of Admission: 05/18/24 Date of Discharge: 05/21/24 Primary Care Physician: Dr. Tomy Hernandez MD Reason For Visit: COVID, PAF RVR Diagnosis Discharge Diagnosis (1) COVID-19: Status: Acute Code(s): U07.1 - COVID-19 Plan Patient is a 78-year-old lady who presented with shortness of breath fever as well as some confusion. She had previously tested positive for COVID. Chest x- ray obtained on admission demonstrated Increased interstitial markings may represent edema and/or infection. Admitted to monitored bed for subsequent management 1. Acute hypoxia ? Secondary to COVID-19 admitted to a monitored bed for symptom management. Patient was started on Decadron as well as remdesivir on admission. 2. Paroxysmal A-fib with RVR ? Patient is on diltiazem as well as metoprolol continue also on systemic anticoagulation with apixaban 3. Valvular heart disease ? Status post TAVR at [facility] patient remained stable 4. Chronic hypoxic respiratory failure ? Secondary to COPD patient is on 2 L home oxygen at baseline 5. BPH with lower urinary obstructive symptoms - Patient treated with tamsulosin and finasteride 6. Hypertension ? Blood pressure controlled, home medications continued with dose adjustment as needed 7. 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 Patient is a stable anticoagulation with apixaban continue 9.Acute cystitis with UTI and erectile ? Patient started on ceftriaxone, urine culture sent ? 05/20/2024 urine cultures positive for presumptive E. coli with nonsignificant colony count and alphahemolytic organism final studies pending. Patient ceftriaxone discontinued started on Levaquin -05/21/2024;Final urine cultures positive for presumptive E. coli as well as Aerococcus sensitivities reviewed.. Discharged on levofloxacin 10. Acute kidney injury ? Baseline creatinine from 09/02/2023 was 1.12, creatinine on admission was 1.44 patient is on furosemide held daily monitoring with BMP ordered ? 05/20/2024; OSCAR resolved 11. DVT prophylaxis ? On apixaban Time spent in the patient's overall evaluation,decision-making process, review of diagnostic data, adjustment of management, discussion with other providers, nursing nursing and ancillary staff involved in patient's care documentation, 36 Minutes Medications at Discharge Home Medications finasteride 5 mg tablet 5 mg PO DAILY prostate 09/24/15 tamsulosin 0.4 mg capsule (Flomax) 0.8 mg PO QHS prostate 02/28/18 Disability Placard #1 ea 01/01/21 aspirin 81 mg capsule 81 mg PO DAILY antiplatelet 05/06/21 inulin 2,500 mg-vitamin D3 500 unit chewable tablet (Fiber Gummies with Vitamin D3) 2 tab PO DAILY supplement 08/12/23 polyethylene glycol 3350 17 gram/dose oral powder (Miralax) 17 g PO DAILY stool softener 08/12/23 atorvastatin 10 mg tablet 10 mg PO QDAY #90 tabs 08/27/23 diltiazem HCl 120 mg tablet 120 mg PO BID 90 days #180 tabs 08/27/23 metoprolol tartrate 75 mg tablet 75 mg PO BID #180 tabs 08/27/23 apixaban 5 mg tablet 5 mg PO BID blood thinner #180 tabs 11/29/23 potassium chloride 20 mEq tablet,extended release(part/cryst) (Klor-Con M) 30 meq PO DAILY potassium replacement 01/04/24 furosemide 40 mg tablet 40 mg PO DAILY fluid 05/09/24 acetaminophen 500 mg tablet 1,300 mg PO DAILY PRN pain 05/18/24 cholecalciferol (vitamin D3) 25 mcg (1,000 unit) capsule 1,000 unit PO DAILY supplement 05/18/24 docusate sodium 250 mg capsule 250 mg PO BID stool softener 05/18/24 levofloxacin 750 mg tablet 750 mg PO DAILY #5 tabs 05/21/24 Physical Exam Narrative GENERAL: cooperative HEENT: Atraumatic; normocephalic EYES; Anicteric, Normal Conjunctiva NECK; supple, normal thyroid, RESPIRATORY: Diminished to auscultation CARDIOVASCULAR: Regular S1 S2, GI: soft, normoactive bowel sounds, : No Renal angle tenderness; EXTREMITIES: No edema, no clubbing, MUSCULOSKELETAL: no muscle wasting NEURO: Awake; no lateralizing signs. SKIN: No Rash PSYCH; Flat affect Weight / BMI Weight Weight: 110.5 kg Body Mass Index (BMI) 38.1 ABG / Lab / Microbiology Data 05/21/24 06:00 05/21/24 06:00 Laboratory: Laboratory Results - last 24 hr 05/20/24 08:56: WBC 11.1 H, RBC 4.27 L, Hgb 13.6, Hct 41.7, MCV 97.7 H, MCH 31.9, MCHC 32.6, RDW Std Deviation 47.3 H, RDW Coeff of Zackary 13.2, Plt Count 183, MPV 9.8, Immature Gran % (Auto) 0.500, Neut % (Auto) 87.0 H, Lymph % (Auto) 5.6 L, [place] % (Auto) 6.8, Eos % (Auto) 0.0, Baso % (Auto) 0.1, Absolute Neuts (auto) 9.7 H, Absolute Lymphs (auto) 0.62 L, Nucleated RBC % 0, Sodium 140, Potassium 4.1, Chloride 110 H, Carbon Dioxide 26.0, Anion Gap 4 L, BUN 25 H, Creatinine 1.10, Estim Creat Clear Calc 64.65, Est GFR (MDRD) Af Amer 83, Est GFR (MDRD) Non-Af 69, BUN/Creatinine Ratio 22.7 H, Glucose 168 H, Calcium 9.0, Phosphorus 2.7, Magnesium 2.3 05/21/24 06:00: WBC 12.8 H, RBC 4.33 L, Hgb 13.4, Hct 42.3, MCV 97.7 H, MCH 30.9, MCHC 31.7 L, RDW Std Deviation 48.3 H, RDW Coeff of Zackary 13.4, Plt Count 203, MPV 10.0, Immature Gran % (Auto) 0.600, Neut % (Auto) 85.6 H, Lymph % (Auto) 6.0 L, [place] % (Auto) 7.6, Eos % (Auto) 0.0, Baso % (Auto) 0.2, Absolute Neuts (auto) 11.0 H, Absolute Lymphs (auto) 0.77 L, Nucleated RBC % 0, Sodium 141, Potassium 4.4, Chloride 110 H, Carbon Dioxide 26.0, Anion Gap 5, BUN 28 H, Creatinine 1.03, Estim Creat Clear Calc 68.98, Est GFR (MDRD) Af Amer 89, Est GFR (MDRD) Non-Af 74, BUN/Creatinine Ratio 27.2 H, Glucose 137 H, Calcium 8.9, Phosphorus 3.1, Magnesium 2.2 Microbiology: Microbiology 05/18/24 21:30 Urine, Clean Catch Urine Culture - Final Presumptive E. coli Aerococcus sanguinicola 05/18/24 20:25 Mucosa - Nose SARS-CoV-2, Influenza & RSV (PCR) - Final SARS-CoV-2 (COVID 19 PCR) D/C Instructions Discharge Diet: No restrictions Discharge Activity: Return to Normal Activity Call your doctor if you observe: Fever of 101 or Higher, Shortness of breath, Fainting spells and Chest pain Meaningful Use Info Meaningful Use Meaningful Use Diagnoses (Choose all that apply): None applicable Ischemic Stroke Statin Dosing Therapy Reference: STATIN DOSE THERAPY REFERENCE: * Patients > 75 years receive moderate or high dose statin therapy. * Patients 75 years or YOUNGER should receive HIGH intensity statin dose unless contraindicated. You will be required to document reason for non-treatment if statin daily dose does not meet guidelines. HIGH DOSE STATIN THERAPY DAILY Atorvastatin > than or = to 40 mg Rosuvastatin > than or = to 20 mg Amlodipine + Atorvastatin > than or = to 2.5/40 mg Ezetimibe + Simvastatin 10/80 mg Simvastatin 80mg Discharge Plan Admission Admit Date/Time: 05/18/24 22:18 Attending Provider: Chema Fuentes Primary Care Provider: Tomy Hernandez Consulting Providers: Carmela Martinez Discharge Orders/Prescriptions Prescriptions: New levofloxacin 750 mg tablet 750 mg PO DAILY Qty: 5 0RF Continued tamsulosin [Flomax] 0.4 mg capsule,extended release 24hr 0.8 mg PO QHS (DME) Disability Placard See Rx Instructions .ROUTE .MEDSUPPLY Qty: 1 0RF Rx Instructions: Expires in 5 years potassium chloride [Klor-Con M20] 20 mEq tablet,ER particles/crystals 30 meq PO DAILY Patient Comments: TAKE 1.5 TABLET ONCE DAILY, OR TWICE NEEDED finasteride 5 MG tablet 5 mg PO DAILY Patient Comments: prostate aspirin 81 mg Capsule 81 mg PO DAILY Fiber Gummies with Vitamin D3 2,500 mg- 500 unit tablet,chewable 2 tab PO DAILY polyethylene glycol 3350 [Miralax] 17 gram/dose powder 17 g PO DAILY docusate sodium 250 mg capsule 250 mg PO BID cholecalciferol (vitamin D3) 25 mcg (1,000 unit) capsule 1,000 unit PO DAILY acetaminophen 500 mg Tablet 1,300 mg PO DAILY PRN (Reason: pain) Rx Instructions: Do not take more than 3000 mg Tylenol in a 24-hour period. diltiazem HCl 120 mg tablet 120 mg PO BID 90 Days Qty: 180 3RF metoprolol tartrate 75 mg tablet 75 mg PO BID Qty: 180 3RF atorvastatin 10 mg tablet 10 mg PO QDAY Qty: 90 3RF apixaban 5 mg tablet 5 mg PO BID Qty: 180 3RF furosemide 40 mg tablet 40 mg PO DAILY Referrals / Follow Up: Tomy Hernandez MD [Primary Care Provider] - Disposition Disposition (needs filled in before D/C Order can be placed): Home, Self Care Charges/Coding Visit Charges Inpatient E&M: 76908 Disch Hosp >30min
[2024-05-21 08:58] VITALS: O2SAT 89; O2SAT 98
[2024-05-21 09:08] VITALS: BP 121/67; PULSE 63; RESP 18; TEMP 35.8; O2SAT 94
[2024-05-21] MEDS: Aspirin 81 MG TAB.CHEW PO (09:19)
[2024-05-21] MEDS: Finasteride 5 MG Tablet PO (09:19)
[2024-05-21] MEDS: dexAMETHasone 4 MG/ML Vial 6 MG IV (09:19)
[2024-05-21] MEDS: Potassium Chloride Oral Tablet 10 MEQ 30 MEQ PO (09:19)
[2024-05-21] MEDS: dilTIAZem 60 MG CAP.SR.12H 120 MG PO (09:19)
[2024-05-21] MEDS: Furosemide 40 MG Tablet PO (09:19)
[2024-05-21 09:20] VITALS: PULSE 80
[2024-05-21] MEDS: Metoprolol Tartrate 25 MG Tablet 75 MG PO (09:20)
[2024-05-21] MEDS: APIXABAN 5 MG TABLET PO (09:21)
== END 2024-05-21 12:24 | disposition home or self-care (01) | DRG 177 ==
LOC: ED 23:14 → PCU 23:41
PROVIDERS: Admitting Provider Family Medicine; Emergency Provider Emergency Medicine; PCP Internal Medicine; Visit Provider Internal Medicine
DX: U07.1 COVID-19 (principal); I50.31 Acute diastolic (congestive) heart failure; G93.49 Other encephalopathy; J44.0 Chronic obstructive pulmonary disease with (acute) lower respiratory infection; I13.0 Hypertensive heart and chronic kidney disease with heart failure and stage 1 through stage 4 chronic kidney disease, or unspecified chronic kidney disease; J96.11 Chronic respiratory failure with hypoxia; N17.9 Acute kidney failure, unspecified; N30.00 Acute cystitis without hematuria; N18.30 Chronic kidney disease, stage 3 unspecified; Z95.2 Presence of prosthetic heart valve; I48.0 Paroxysmal atrial fibrillation; G47.33 Obstructive sleep apnea (adult) (pediatric); I89.0 Lymphedema, not elsewhere classified; I25.10 Atherosclerotic heart disease of native coronary artery without angina pectoris; E78.00 Pure hypercholesterolemia, unspecified; B96.20 Unspecified Escherichia coli [E. coli] as the cause of diseases classified elsewhere; N40.1 Benign prostatic hyperplasia with lower urinary tract symptoms; Z79.01 Long term (current) use of anticoagulants; Z79.82 Long term (current) use of aspirin; Z79.899 Other long term (current) drug therapy; Z86.718 Personal history of other venous thrombosis and embolism; Z86.73 Personal history of transient ischemic attack (TIA), and cerebral infarction without residual deficits; Z86.711 Personal history of pulmonary embolism; Z87.891 Personal history of nicotine dependence; Z86.16 Personal history of COVID-19
CPT/HCPCS: 36415; 71045; 80048; 80053; 80076; 81001; 82550; 82728; 83605; 83615; 83735; 83880; 84100; 84145; 84484; 85025; 85379; 86140; 87077; 87086; 87088; 87186; 87631; 93005; 94640; 94668; 94760; 97162; 97166; 99284; J7030; J7050; A4216; J0248

== ENCOUNTER → 2024-09-14 | Outpatient (CLI) | payer MEDICARE, SELFPAY ==
[2021-12-15 12:04] VITALS: BMI 37.1
== END | disposition home or self-care (01) ==
LOC: SL 12:26
PROVIDERS: Referring Provider Nurse Practitioner Acute Care; Visit Provider Nurse Practitioner Acute Care
DX: R09.02 Hypoxemia (principal)
CPT/HCPCS: 94762

== ENCOUNTER → 2025-04-24 | Outpatient (CLI) | payer OTHER, MEDICARE, SELFPAY ==
[2021-12-15 12:04] VITALS: BMI 37.1
--- OUTSIDE RECORDS SUMMARY | 2025-04-24 06:41 | XMS RPT_ITS | CCD ---
Author Organization [facility] Care Team Providers Care Bartender Manager Name Role Phone Orquidea Degroot Unavailable Unavailable Orquidea Degroot Unavailable Unavailable DeFinis, Harumi Y Unavailable Unavailable Mas, Allyssa Unavailable Unavailable Mas, Allyssa Unavailable Unavailable MD Jamir, Jeff Bui Unavailable Katrina, RN, Niki Mckeon Unavailable Unavailabl e Alexia RN, Ilana A Unavailable Unavailable Alexia RN, Ilana A Unavailable Unavailable Hoffman, Brook M Unavailable Unavailable Hoffman, Brook M Unavailable Unavailable MARYCRUZ Herndon, Niki M Unavailable Unavailabl e Dr. Tomy Hernandez Primary Care Provider Dr. Tomy Hernandez Referring Provider Parvez NAZARIO, MANSI-C Minal Attending Provider Dr. Gal Salmeron Attending Provider Tomy Hernandez MD Primary Care Provider Familia JOEL, Terence M Unavailable UnavailGal Cancino Unavailable Bran Russell Unavailable Dr. Tomy Hernnadez Primary Care Provider Dr. Tomy Hernandez Referring Provider EVELYN Hannon NPC Minal Attending Provider Dr. Bran Russell Referring Provider [phone] Dr. Bran Russell Other Provider Dr. Freddy Juan Attending Provider Ceasar CHAMBERS, TRISH Whitaker Attending Provider Dr. Christopher Rivera Attending Provider Tomy Hernandez MD Primary Care Provider Familia JOEL, Terence Mckeon Unavailable Unavailabl e Jaron, Gal F Unavailable Bran Russell Unavailable Dr. Tomy Hernandez Primary Care Provider Dr. Tomy Hernandez Referring Provider Timmy SERVICE UNIT OPERATOR, SERVICE UNIT OPERATOR-C Erica Attending Provider Dr. Abida Sanchez Attending Provider Parvez SERVICE UNIT OPERATOR, SERVICE UNIT OPERATOR-C Minal Attending Provider Dr. Abida Sanchez Other Provider Jaron, Gal F Unavailable Bran Russell Unavailable TAMIKA DUTTA Attending Unavailable TOMY HERNANDEZ Primary Care Unavailable TAMIKA DUTTA Attending Unavailable TOMY HERNANDEZ Primary Care Unavailable TAMIKA DUTTA Attending Unavailable DAVID, TOMY Guerra Primary Care Unavailable TAMIKA DUTTA Attending Unavailable TOMY HERNANDEZ Referring Unavailable TOMY HERNANDEZ Primary Care Unavailable KANAA'N V, REMINGTON Admitting Unavailable KANAA'N V, REMINGTON Attending Unavailable KANAA'N V, REMINGTON Referring Unavailable TOMY HERNANDEZ Primary Care Unavailable Dr. Tomy Hernandez Primary Care Provider Dr. Tomy Hernandez Referring Provider Dr. Abida Sanchez Attending Provider Parvez SERVICE UNIT OPERATOR, SERVICE UNIT OPERATOR-C Minal Attending Provider Dr. Abida Sanchez Other Provider Dr. Bran Russell Attending Provider Tomy Hernandez MD Primary Care Provider Terence JOEL, Familia Mckeon Unavailable Unavailabl e Jaron, Gal F Unavailable Bran Russell Unavailable Dr. Tomy Hernandez Primary Care Provider Dr. Tomy Hernandez Referring Provider Dr. Gal Salmeron Attending Provider Dr. Abida Sanchez Attending Provider Dr. Abida Sanchez Other Provider Bran Russell Unavailable Dr. Tomy Hernandez Primary Care Provider Dr. Tomy Hernandez Referring Provider Betty CHAMBERS, PA Jarod Mckeon Attending Provider Dr. Christopher Rivera Attending Provider [phone] Parvez SERVICE UNIT OPERATOR, SERVICE UNIT OPERATOR-C Minal Attending Provider Parvez SERVICE UNIT OPERATOR, SERVICE UNIT OPERATOR-C Minal Referring Provider Parvez NAZARIO, SERVICE UNIT OPERATOR-C Minal Other Provider Delmar SERVICE UNIT OPERATOR, SERVICE UNIT OPERATOR-C James Guerra Attending Provider Terence JOEL, Familia Mckeon Unavailable Unavailabl e Drew HATCH, Bran Riley Unavailable Dr. Tomy Hernandez Primary Care Provider Dr. Tomy Hernandez Referring Provider Dr. Christopher Rivera Attending Provider [phone] Abida Sanchez Attending Provider Dr. Abida Sanchez Referring Provider Dr. Abida Sanchez Other Provider Gal Salmeron MD Unavailable Dr. Tomy Hernandez Primary Care Provider Parvez NAZARIO, SERVICE UNIT OPERATOR-C Minal Referring Provider Parvez NAZARIO, SERVICE UNIT OPERATOR-C Minal Other Provider Dr. Christopher Rivera Attending Provider [phone] Delmar SERVICE UNIT OPERATOR, SERVICE UNIT OPERATOR-C James Guerra Attending Provider Dr. Tomy Hernandez Referring Provider Dr. Abida Sanchez Attending Provider Parvez SERVICE UNIT OPERATOR, SERVICE UNIT OPERATOR-C Minal Attending Provider Laura, Dr. Tai Referring Provider Laura, Dr. Tai Other Provider Dr. Bran Russell Attending Provider Dr. Tomy Hernandez Primary Care Provider Dr. Abida Sanchez Attending Provider Dr. Tomy Hernandez Referring Provider David, Dr. Huitron Primary Care Provider Dr. Tomy Hernandez Referring Provider Parvez NAZARIO, MANSI-C Minal Attending Provider Dr. Christopher Rivera Attending Provider Dr. Tomy Hernandez Primary Care Provider Dr. Tomy Hernandez Referring Provider Parvez NAZARIO, SERVICE UNIT OPERATOR-C Minal Attending Provider Dr. Christopher Rivera Attending Provider Tomy Hernandez MD Primary Care Provider Dr. Tomy Hernandez Primary Care Provider Parvez NAZARIO, MANSI-C Minal Attending Provider Dr. Tomy Hernandez Referring Provider Timmy SERVICE UNIT OPERATOR, SERVICE UNIT OPERATOR-C Erica Attending Provider [phone] Timmy SERVICE UNIT OPERATOR, SERVICE UNIT OPERATOR-C Erica Referring Provider Timmy SERVICE UNIT OPERATOR, SERVICE UNIT OPERATOR-C Erica Other Provider Dr. Freddy Juan Attending Provider Charlie RN, Nabeel Unavailable Tomy Hernandez MD Primary Care Provider Rey Yousif MD Primary Care Provider TOMY HERNANDEZ Primary Care Unavailable DAVID, TOMY Guerra Attending Unavailable HERNANDEZ, BRODERICK Attending Unavailable HERNANDEZ, BRODERICK Primary Care Unavailable HERNANDEZ, BRODERICK Attending Unavailable HERNANDEZ, BRODERICK Primary Care Unavailable Dr. Tomy Hernandez MD Referring Provider Parvez SERVICE UNIT OPERATOR-C, Minal Attending Provider [phone] [facility], Out of Primary Care Provider Eulalia Warner SERVICE UNIT OPERATOR-C, Erica Attending Provider [facility], [place] Primary Care Provider Unavailjosé Hannon SERVICE UNIT OPERATOR, Minal Referring Unavailable Parvez SERVICE UNIT OPERATOR, Minal Attending Unavailable Hernandez, Tomy Primary Care Unavailable Carmela Martinez Admitting Unavailable KitChema williamson Attending Unavailable WhiteCarmela L Consulting Unavailable Hernandez, Tomy Primary Care Unavailable Parvez SERVICE UNIT OPERATOR, Minal Attending Unavailable Parvez SERVICE UNIT OPERATOR, Minal Referring Unavailable [facility] [place] Primary Care Unavailable Parvez NAZARIO, Minal Attending Unavailable Hernandez, Tomy Referring Unavailable Hernandez, Tomy Primary Care Unavailable Parvez NAZARIO, Minal Attending Unavailable [facility], Out of Primary Care Unavailable Hernandez, Tomy Referring Unavailable Timmy SERVICE UNIT OPERATOR, Erica Attending Unavailable Hernandez, Tomy Primary Care Unavailable Hernandez, Tomy Referring Unavailable Timmy SERVICE UNIT OPERATOR, Erica Attending Unavailable Hernandez, Tomy Primary Care Unavailable Hernandez, Tomy Referring Unavailable Timmy SERVICE UNIT OPERATOR, Erica Attending Unavailable Hernandez, Tomy Referring Unavailable [facility] [place] Primary Care Unavailable Christopher Rivera Attending Unavailable Hernandez, Tomy Referring Unavailable Hernandez, Tomy Primary Care Unavailable White, Carmela L Attending Unavailable Hernandez, Tomy Primary Care Unavailable Carmela Martinez L Admitting Unavailable Chema Fuentes Attending Unavailable Hernandez, Tomy Primary Care Unavailable Carmela Martinez L Consulting Unavailable Chema Fuentes Consulting Unavailable [facility], [place] Primary Care Unavailable PARKS, CI1 Referring Unavailable PARKS, CI1 Attending Unavailable Timmy SERVICE UNIT OPERATOR, Erica Referring Unavailable Timmy SERVICE UNIT OPERATOR, Erica Attending Unavailable [facility], Out of Primary Care Unavailable Parvez SERVICE UNIT OPERATOR, Minal Referring Unavailable Parvez SERVICE UNIT OPERATOR, Minal Attending Unavailable PARKS, CI1 Consulting Unavailable Hernandez, Tomy Primary Care Unavailable Allergies Allergy Classification Reported Allergen(s) Allergy Type Date of Onset Reaction(s) Facility Angiotensin Converting Enzyme (PARISA) Inhibitors (1 source) Lisinopril Drug Allergy 10-15-2014 [facility] Work Phone: (20 sources) lisinopril; Translations: [LISINOPRIL] drug allergy 10-15-2014 [facility] Work Phone: (16 sources) NKDA; Translations: [NKDA] allergy to substance 10-04-2015 [facility] Work Phone: (1 source) Lisinopril Drug Allergy 02-28-2025 [facility] Repository Medications Current Medications Medication Drug Class(es) Dates Sig (Normalized) Sig (Original) acetaminophen 500 mg oral tablet (20 sources) Start: 05-18-2024 Acetaminophen 500 mg Tablet Active 1300 mg PO DAILY as needed for pain May 18, 2024 12:00am Do not take more than 3000 mg Tylenol in a 24-hour period. Start: 09-02-2023 End: 05-18-2024 Acetaminophen 500 mg Tablet Discontinued 1000 mg PO THREE TIMES A DAY 84 September 02, 2023 1:00am May 18, 2024 8:49pm Do not take more than 3000 mg Tylenol in a 24-hour period. Start: 09-02-2023 take 3000 mg by mout h three times daily Acetaminophen Active 1000 MG PO THREE TIMES A DAY 84 September 02, 2023 1:00am Do not take more than 3000 mg Tylenol in a 24-hour period. Start: 11-27-2022 End: 09-02-2023 take 4 tablets by mouth once daily Acetaminophen 325 mg Tablet Discontinued 1300 mg PO DAILY November 27, 2022 12:00am September 02, 2023 11:46am Start: 11-27-2022 End: 09-02-2023 take 1300 mg by mouth once daily Acetaminophen Discontinued 1300 MG PO DAILY November 27, 2022 12:00am September 02, 2023 11:46am Start: 11-27-2022 take 650 mg by mouth once micheline y Acetaminophen Active 650 MG PO DAILY November 27, 2022 12:00am acetaminophen (T YLENOL ARTHRITIS PAIN ORAL) Take 1,300 mg by mouth as needed. Active acetaminophen (T YLENOL ARTHRITIS PAIN ORAL) Take 1,300 mg by mouth as needed. 0 Active take 500 mg by mouth twice daily acetaminophen (TYLENOL ARTHRITIS PAIN ORAL) Take 500 mg by mouth twice daily. 0 Active Comment on above: Take 500 mg by mouth twice daily. Take 1,300 mg by zaire th as needed. amoxicillin 500 mg oral capsule (17 sources) Penicillin-class Antibacterial Start: 06-14-20 End: 12-16-19 take 4 capsules by mouth every hour Amoxicillin 500 mg capsule Active 2000 mg PO .COMPLEX December 15, 2024 3:20pm 2,000 mg orally 1 hour prior to dental appointment; Start: 03-11-2023 take 2000 mg by mouth every ho ur Amoxicillin Active 2000 MG PO .COMPLEX March 11, 2023 1:15pm 2,000 mg orally 1 hour prior to dental visit; Start: 04-07-2022 End: 04-07-2022 take 4 capsules by mouth every hour Amoxicillin 500 mg capsule Discontinued 2000 mg PO .COMPLEX April 07, 2022 12:00am April 07, 2022 12:08pm 2,000 mg orally 1 hour prior to dental visit; Start: 04-07-2022 End: 04-07-2022 take 2000 mg by mouth every hour Amoxicillin Discontin ued 2000 MG PO .COMPLEX April 07, 2022 12:00am April 07, 2022 12:08pm 2,000 mg orally 1 hour prior to dental visit; aspirin 81 mg chewable tablet (20 sources) Platelet Aggregation Inhibitor, Nonsteroidal Anti-inflammatory Drug Start: 07-11-2021 take 1 tablet by mouth once daily aspirin 81 mg chewable tablet Take 1 tablet by mouth once daily. 30 tablet 2 07/11/2021 Active Start: 05-06-2021 take 1 capsule by mouth once d aily Aspirin 81 mg Capsule Active 81 mg PO DAILY May 06, 2021 12:00am Comment on above: Take 1 tablet by zaire th once daily. cephalexin 500 mg oral capsule (2 sources) Cephalosporin Antibacterial Start: End: take 1 capsule by mouth three times daily cephALEXin (KEFLEX) 500 mg capsule Indications: Cellulitis of left lower extremity Take 1 capsule by mouth three times a day for 3 days. 9 capsule 0 10/26/2023 10/29/2023 Active Start: 10-18-2023 End: 10-25-2023 take 1 capsule by mouth four times daily cephALEXin (KEFLEX) 500 mg capsule Indications: Cellulitis of left lower extremity Take 1 capsule by mouth four times daily for 7 days. 28 capsule 0 10/18/2023 10/25/2023 Active Comment on above: Take 1 capsule by mo ut four times daily for 7 days. Take 1 capsule by mo ut three times a day for 3 days. cholecalciferol 0.025 mg oral capsule (11 sources) Vitamin D Start: 02-29-20 25 take 1 capsule by mouth once daily Cholecalciferol (Vitamin D3) 25 mcg (1,000 unit) capsule Active 2000 U PO DAILY February 28, 2025 12:49pm Start: 05-18-2024 End: 02-28-2025 take 1 capsule by mouth once daily Cholecalciferol (Vitamin D3) 25 mcg (1,000 unit) capsule Discontinued 1000 U PO DAILY May 18, 2024 12:00am February 28, 2025 12:49pm Cholecalciferol, Vitamin D3, (VITAMIN D) 25 mcg (1,000 unit) cap Take 1,000 Units by mouth once daily. Active Comment on above: Take 1,000 Units by mouth once daily. cholecalciferol 500 unt / inulin 2500 mg chewable tablet (8 sources) Vitamin D Start: 3 Inulin-Vitamin D3 (Fiber Gummies With Vitamin D3) 2,500 mg- 500 unit tablet,chewable Active 2 {tbl} PO DAILY August 12, 2023 1:00am docusate sodium 250 mg oral capsule (20 sources) Start: 4 take 1 capsule by mouth twice daily Docusate Sodium 250 mg capsule Active 250 mg PO TWICE A DAY May 18, 2024 12:00am Start: 01-09-2019 End: 07-03-2019 take 1 capsule by mouth twice daily Docusate Sodium 100 MG capsule Discontinued 100 mg PO TWICE A DAY January 09, 2019 12:00am July 03, 2019 1:08pm Comment on above: Take 250 mg by mouth twice daily. finasteride 5 mg oral tablet (20 sources) 5-alpha Reductase Inhibitor Start: 09-24-2015 End: 10-13-2022 take 1 tablet by mouth once daily finasteride (PROSCAR) 5 mg tablet Indications: Benign prostatic hyperplasia with lower urinary tract symptoms, symptom details unspecified Take 1 tablet by mouth once daily. 90 tablet 3 09/14/2023 Active Comment on above: Take 1 tablet by zaire th once daily. furosemide 40 mg oral tablet (20 sources) Loop Diuretic Start: 05-09-2024 take 1 tablet by mouth once daily Furosemide 40 mg tablet Active 40 mg PO DAILY May 09, 2024 1:39pm Start: 01-04-2024 End: 05-09-2024 take 2 tablets by mouth once daily Furosemide 40 mg tablet Discontinued 80 mg PO DAILY January 04, 2024 12:59pm May 09, 2024 1:39pm Start: 01-04-2024 take 80 mg by mouth once daily Furosemide Active 80 MG PO DAILY January 04, 2024 12:59pm Start: 06-22-2022 End: 01-04-2024 take 1 tablet by mouth once daily Furosemide 40 mg tablet Discontinued 40 mg PO DAILY 90 August 27, 2023 10:55am January 04, 2024 1:00pm Start: 12-12-2020 End: 06-22-2022 take 1 tablet by mouth twice daily Furosemide 40 mg tablet Discontinued 40 mg PO TWICE A DAY 180 August 22, 2021 4:03pm June 22, 2022 12:45pm Start: 01-09-2019 End: 12-12-2020 take 1 tablet by mouth once daily Furosemide 40 mg tablet Discontinued 40 mg PO DAILY 180 December 06, 2020 1:25pm December 12, 2020 1:43pm Start: 11-10-2017 End: 04-22-2018 take 1 tablet by mouth once daily Furosemide 40 mg tablet Discontinued 40 mg PO daily November 10, 2017 12:44pm April 22, 2018 11:19am Comment on above: Take 40 mg by mouth twice daily. Take 40 mg by mouth once daily. Take 40 mg by mouth once daily. Per [facility] decreased to once daily. metoprolol tartrate 75 mg oral tablet (20 sources) beta-Adrenergic Brittany Start: 10-01-2022 End: 08-27-2023 take 1 tablet by mouth twice daily Metoprolol Tartrate 75 mg tablet Active 75 mg PO TWICE A DAY 180 August 27, 2023 10:56am Start: 12-16-2020 End: 10-01-2022 Metoprolol Tartrate 50 mg ta blet Discontinued 75 mg PO TWICE A DAY 135 90 August 22, 2021 4:03pm October 01, 2022 11:03am Start: 12-16-2020 End: 10-01-2022 take 75 mg by mouth twice daily Metoprolol Tartrate Di scontinued 75 MG PO TWICE A DAY 135 90 August 22, 2021 4:03pm October 01, 2022 11:03am Start: 12-12-2020 End: 12-16-2020 take 1 tablet by mouth twice daily Metoprolol Tartrate 75 mg tablet Discontinued 75 mg PO TWICE A DAY 180 December 12, 2020 1:42pm December 16, 2020 3:53pm Start: 11-26-2020 End: 03-22-2023 take 1.5 tablets by mouth twice daily metoprolol tartrate, short acting, (LOPRESSOR) 50 mg tablet Indications: Chronic atrial fibrillation (HCC) Take 1.5 tablets by mouth twice daily. 0 11/26/2020 03/22/2023 Discontinued (Duplicate Entry) Start: 11-20-2020 End: 12-12-2020 Metoprolol Tartrate 50 mg ta blet Discontinued 75 mg PO TWICE A DAY 1 November 20, 2020 12:20pm December 12, 2020 1:43pm Start: 11-20-2020 End: 12-12-2020 take 75 mg by mouth twice daily Metoprolol Tartrate Di scontinued 75 MG PO TWICE A DAY 1 November 20, 2020 12:20pm December 12, 2020 1:43pm Start: 09-26-2015 End: 11-20-2020 take 1 tablet by mouth twice daily Metoprolol Tartrate 50 mg tablet Discontinued 50 mg PO TWICE A DAY 180 October 30, 2019 10:37am November 20, 2020 12:20pm Comment on above: Take 1.5 tablets by mouth twice daily. Take 1 tablet by zaire twice daily. mupirocin 0.02 mg/mg topical ointment (1 source) RNA Synthetase Inhibitor Antibacterial Start: 01-26-2022 End: 02-05-2022 mupirocin (BACTROBAN) 2 % ointment Indications: Wound of left lower extremity, initial encounter Apply to affected area three times daily for 10 days. 30 g 1 01/26/202202/0502/05/2022 Active Comment on above: Apply to affected ar ea three times daily for 10 days. perflutren lipid microspheres 1.3 mL in NaCl (PF) 0.9% 10 mL injection (DEFINITY) (20 sources) Start: 12-30-2021 End: 03-31-2023 perflutren lipid microspheres 1.3 mL in NaCl (PF) 0.9% 10 mL injection (DEFINITY) Start: 06-24-2021 End: 12-30-2021 perflutren lipid microsphere s 1.3 mL in NaCl (PF) 0.9% 10 mL injection (DEFINITY) Start: 06-24-2021 End: 09-23-2022 perflutren lipid microsphere s 1.3 mL in NaCl (PF) 0.9% 10 mL injection (DEFINITY) polyethylene glycol 3350 64519 mg powder for oral solution (17 sources) Osmotic Laxative Start: 08-12-2023 Polyethylene Glycol 3350 (Miralax) 17 gram/dose powder Active 17 g PO DAILY August 12, 2023 1:00am Comment on above: Take by mouth once d aily. Dissolve dose in 4 - 8 ounces of liquid and take as directed. microencapsulated potassium chloride 20 meq extended release oral tablet (20 sources) Start: 01-04-2024 Potassium Chlo ride (Klor-Con M20) 20 mEq tablet,ER particles/crystals Active 30 meq PO DAILY January 04, 2024 1:00pm Start: 01-04-2024 Potassium Chlo ride (Klor-Con M20) 20 mEq tablet,ER particles/crystals Active 40 MEQ PO DAILY January 04, 2024 1:00pm Start: 07-02-2022 End: 01-04-2024 Potassium Chloride (Klor-Con M20) 20 mEq tablet,ER particles/crystals Discontinued 20 meq PO DAILY August 27, 2023 10:56am January 04, 2024 1:01pm Start: 11-26-2020 End: 03-22-2023 Potassium Chloride (Klor-Con M20) 20 mEq tablet,ER particles/crystals Discontinued 20 meq PO TWICE A DAY August 22, 2021 4:03pm July 02, 2022 11:02am Start: 11-20-2020 End: 12-06-2020 Potassium Chloride (Klor-Con M20) 20 mEq tablet,ER particles/crystals Discontinued 20 meq PO DAILY November 20, 2020 1:00am December 06, 2020 1:25pm Comment on above: Take 20 mEq by mouth twice daily. Take 1 tablet by zaire once daily. 125 ml sodium chloride 9 mg/ml prefilled syringe (20 sources) Start: 1 End: 3 sodium chloride 0.9 % (flush) 10 mL (BD POSIFLUSH) tamsulosin hydrochloride 0.4 mg oral capsule (20 sources) alpha-Adrenergic Brittany Start: 4 take 2 capsules by mouth once daily at bedtime tamsulosin (FLOMAX) 0.4 mg Indications: Benign prostatic hyperplasia with lower urinary tract symptoms, symptom details unspecified Take 2 capsules by mouth daily at bedtime. 180 capsule 3 09/14/2023 Active Start: 12-16-2020 End: 10-13-2022 take 2 capsules by mouth once daily at bedtime tamsulosin (FLOMAX) 0.4 mg Indications: Benign prostatic hyperplasia with lower urinary tract symptoms, symptom details unspecified Take 2 capsules by mouth daily at bedtime. 180 capsule 3 10/13/2022 Active Start: 02-28-2018 take 1 capsule by mo [facility] every twenty-four hours at bedtime Tamsulosin (Flomax) 0.4 mg capsule,extended release 24hr Active 0.8 mg PO AT BEDTIME February 28, 2018 12:00am Start: 02-28-2018 take 1 capsule by mo [facility] once daily Tamsulosin (Flomax) 0.4 mg capsule,extended release 24hr Active 0.8 MG PO DAILY February 28, 2018 12:00am Start: 09-24-2015 End: 12-09-2017 take 1 capsule by mouth once daily Tamsulosin 0.4 MG capsule Discontinued 0.4 mg PO DAILY September 24, 2015 1:00am December 09, 2017 9:57am Comment on above: Take 2 capsules by [facility] daily at bedtime. vit X-V-pxxwgq-zinc-lutein (PreserVision Lutein) (1 source) Start: 02-28-2025 vit N-R-vuoaod-zinc-lutei n (PreserVision Lutein) Active PO February 28, 2025 12:00am Completed/Discontinued Medications Medication Drug Class(es) Dates Sig (Normalized) Sig (Original) apixaban 5 mg oral tablet (20 sources) Factor Xa Inhibitor Start: 09-26-2015 End: 11-29-2023 take 1 tablet by mouth twice daily Apixaban 5 mg tablet Discontinued 5 mg PO TWICE A DAY 180 November 23, 2023 9:40am November 29, 2023 11:31am Start: 09-26-2015 End: 09-26-2015 take 2 tablets by mouth twice daily Apixaban (Eliquis) 5 MG tablet Discontinued 10 mg PO TWICE A DAY September 26, 2015 1:00am September 26, 2015 10:44am Comment on above: Take 1 tablet by zaire th twice daily. atorvastatin 10 mg oral tablet (20 sources) HMG-CoA Reductase Inhibitor Start: End: take 1 tablet by mouth once daily Atorvastatin 10 mg tablet Discontinued 10 mg PO daily October 01, 2022 11:03am August 27, 2023 10:56am Start: 09-16-2017 End: 11-20-2020 take 1 tablet by mouth at bedtime Atorvastatin 10 mg tablet Discontinued 10 mg PO AT BEDTIME 90 October 30, 2019 10:37am November 20, 2020 12:19pm Start: 12-22-2016 take 1 tablet by zaire th once daily LIPITOR 10 MG TABS One tablet by mouth daily ATORVASTATIN CALCIUM [id number] Jeff Bowie MD Comment on above: Take 10 mg by mouth once daily. azithromycin 250 mg oral tablet (18 sources) Macrolide Antimicrobial Start: 12-31-2016 End: 03-18-2017 AZITHROMYCIN 250 MG TABS 2 tablets by mouth today and then 1 tablet daily for the next 4 days AZITHROMYCIN [id number] Kristi Salas LPN Pfiszptke-Xvzbyedo-Orhpw r Ac-C (11 sources) Start: 06-18-2022 End: 2022 Gcltsgmpt-Gijlkrsp-Iltj ur Ac-C Discontinued TABLET PO June 17, 2022 11:00pm 2022 1:04pm Start: 06-18-2022 End: 2022 Luvwybaqp-Sqpnbjly-Ogjsbh Ac -C Discontinued TABLET PO June 18, 2022 12:00am 2022 2:04pm Start: 06-18-2022 Cartilage-Arden agen-Hyalur Ac-C Active TABLET PO June 17, 2022 11:00pm Doceovoav-Euauzjfl-Lnbpuj Ac-C 40-12-3.3-30 mg tablet (1 source) Start: 06-18-2022 End: 2022 Rhkbnegsi-Gztiqhse-Ojglnx Ac-C 40-12-3.3-30 mg tablet Discontinued {tbl} PO June 18, 2022 12:00am 2022 2:04pm chondroitin sulfates 200 mg / glucosamine hydrochloride 250 mg oral tablet (11 sources) Start: 11-27-2022 End: 03-11-2023 Glucosamine-Chondroitin (Osteo Bi-Flex) 250-200 mg Tablet Discontinued 2 {tbl} PO THREE TIMES A DAY November 27, 2022 12:00am March 11, 2023 1:14pm give after food/meal Collagen (10 sources) End: 03-22-2023 take 2 capsules by mouth once daily COLLAGEN MISC Take 2 capsules by mouth once daily. 0 03/22/2023 Discontinued take 2 capsules by mouth once da kenya COLLAGEN MISC Take 2 capsules by mouth once daily. 0 Active Comment on above: Take 2 capsules by m outh once daily. diclofenac sodium 20 mg/ml topical solution (16 sources) Nonsteroidal Anti-inflammatory Drug Start: 01-05-2022 End: 04-28-2022 Diclofenac Sodium (Pennsaid) 20 mg/gram /actuation(2 %) solution in metered-dose pump Discontinued 2 NMA TOPICAL TWICE A DAY January 05, 2022 12:00April 28, 2022 12:54pm apply to single affected knee Start: 01-05-2022 End: 04-28-2022 Diclofenac Sodium (Pennsaid) 20 mg/gram /actuation(2 %) solution in metered-dose pump Discontinued 2 PUMP TOPICAL TWICE A DAY January 05, 2022 12:00am April 28, 2022 12:54pm apply to single affected knee digoxin 0.125 mg oral tablet (20 sources) Cardiac Glycoside Start: 11-20-2020 End: 05-06-2021 take 1 tablet by mouth once daily Digoxin 125 mcg (0.125 mg) tablet Discontinued 125 ug PO DAILY December 16, 2020 3:53pm May 06, 2021 1:26pm dilTIAZem hydrochloride 120 mg oral tablet (20 sources) Calcium Channel Brittany Start: 03-28-2021 End: 08-27-2023 take 1 tablet by mouth twice daily Diltiazem Hcl 120 mg tablet Discontinued 120 mg PO TWICE A DAY 180 90 October 01, 2022 11:03am August 27, 2023 10:56am Start: 11-20-2020 End: 03-28-2021 take 1 tablet by mouth three times daily Diltiazem Hcl 120 mg tablet Discontinued 120 mg PO THREE TIMES A DAY 270 December 16, 2020 3:53pm March 28, 2021 9:15am Start: 12-09-2017 End: 11-20-2020 take 1 capsule by mouth once daily Diltiazem Hcl 180 mg capsule,extended release 24hr Discontinued 180 mg PO DAILY 90 August 25, 2019 2:51pm November 20, 2020 12:21pm Start: 10-04-2015 take 1 tablet by zaire th twice daily CARDIZEM CD 180 MG [id number] One tablet by mouth twice daily DILTIAZEM HCL COATED BEADS [id number] Anai Capellan PA-C Start: 10-04-2015 take 1 tablet by zaire th twice daily CARDIZEM CD 180 MG [id number] One tablet by mouth twice daily DILTIAZEM HCL COATED BEADS [id number] Anai Capellan PA-C Start: 09-26-2015 End: 12-09-2017 take 1 capsule by mouth every twelve hours Diltiazem Hcl 180 MG capsule Discontinued 180 mg PO EVERY 12 HOURS 180 September 16, 2017 11:47am December 09, 2017 10:17am Comment on above: Take 1 tablet by zaire th twice daily. Disability Placard (17 sources) Start: 01-01-2021 Disability Placard Active 0 .ROUTE .MEDSUPPLY January 01, 2021 10:43am Expires in 5 years Start: 01-01-2021 Disability Sol card Active 0 .ROUTE .MEDSUPPLY December 31, 2020 11:00pm Expires in 5 years Start: 04-21-2021 Disability Sol card Active 0 .ROUTE .MEDSUPPLY 1 January 01, 2021 12:00am Expires in 5 years docusate sodium 50 mg / sennosides, care home 8.6 mg oral tablet (7 sources) Start: 09-02-2023 End: 05-02-2024 Sennosides-Docusate Sodium (Stool Softener-Stimulant Laxat) 8.6-50 mg Tablet Discontinued 2 {tbl} PO TWICE A DAY 0 September 02, 2023 1:00am May 02, 2024 2:47pm Take until first bowel movement, then as needed guaiFENesin 400 mg oral tablet (20 sources) Start: 01-09-2019 End: 07-03-2019 take 1 tablet by mouth twice daily Guaifenesin 400 MG tablet Discontinued 400 mg PO TWICE A DAY January 09, 2019 12:00am July 03, 2019 1:08pm End: 10-18-2023 take 400 mg by mouth once daily GUAIFENESIN ORAL Take 400 mg by mouth once daily. 0 10/18/2023 Discontinued Comment on above: Take 400 mg by mouth once daily. ibuprofen 200 mg oral tablet (17 sources) Nonsteroidal Anti-inflammatory Drug Start: 01-10-20 End: 01-11-20 Ibuprofen 200 MG tablet Discontinued 200 mg PO NEEDED as needed for Pain January 09, 2019 12:00am January 10, 2019 12:07pm levoFLOXacin 750 mg oral tablet (11 sources) Quinolone Antimicrobial Start: 05-21-20 End: 12-16-19 take 1 tablet by mouth once daily Levofloxacin 750 mg tablet Discontinued 750 mg PO DAILY May 21, 2024 12:00am December 15, 2024 3:03pm Start: 02-03-2023 End: 03-11-2023 take 1 tablet by mouth every twenty-four hours Levofloxacin 750 mg tablet Discontinued 750 mg PO Q24H February 03, 2023 12:00am March 11, 2023 1:13pm losartan potassium 100 mg oral tablet (17 sources) Angiotensin 2 Receptor Brittany Start: 09-24-2015 End: 09-26-2015 take 1 tablet by mouth once daily Losartan 100 MG tablet Discontinued 100 mg PO DAILY September 24, 2015 1:00am September 26, 2015 10:31am 28 actuat olodaterol 0.0025 mg/actuat / tiotropium 0.0025 mg/actuat metered dose inhaler (20 sources) Anticholinergic, beta2-Adrenergic Agonist Start: 02-19-2016 End: 05-19-2016 take 2 puff(s) by inhalation once daily STIOLTO RESPIMAT 2.5-2.5 MCG/ACT AERS 2 puffs INH daily TIOTROPIUM BROMIDE-OLODATEROL [id number] Bran Russell Start: 02-19-2016 take 2 puff(s) by in halation once daily STIOLTO RESPIMAT 2.5-2.5 MCG/ACT AERS 2 puffs INH daily TIOTROPIUM BROMIDE-OLODATEROL [id number] Bran Russell Start: 02-19-2016 End: 05-19-2016 take 2 puff(s) by inhalation once daily STIOLTO RESPIMAT 2.5-2.5 MCG/ACT AERS 2 puffs INH daily TIOTROPIUM BROMIDE-OLODATEROL [id number] Larissa Frederick LPN oxyCODONE hydrochloride 5 mg oral tablet (7 sources) Opioid Agonist Start: 09-02-2023 End: 05-19-2024 take 5-10 mg by mouth every four hours as needed for pain Oxycodone 5 mg Tablet Discontinued 5 - 10 mg PO EVERY 4 HOURS NEEDED as needed for Pain Score 4-10 42 5 September 02, 2023 May 19, 2024 12:38am 7 actuat umeclidinium 0.0625 mg/actuat / vilanterol 0.025 mg/actuat dry powder inhaler (20 sources) Anticholinergi c, beta2-Adrenerg ic Agonist Start: 02-24-2016 End: 05-19-2016 take 1 puff(s) by inhalation once daily ANORO ELLIPTA 62.5-25 MCG/INH AEPB 1 puff INH daily UMECLIDINIUM-VILAN TEROL [id number] Larissa Frederick LPN Start: 02-24-2016 take 1 puff(s) by inhalation once daily ANORO ELLIPTA 62.5-25 MCG/INH AEPB 1 puff INH daily UMECLIDINIUM-VILANTEROL [id number] Erica Warner ASSOCIATE PROFESSOR OF HISTORY Start: 02-24-2016 End: 05-19-2016 take 1 puff(s) by inhalation once daily ANORO ELLIPTA 62.5-25 MCG/INH AEPB 1 puff INH daily UMECLIDINIUM-VILANTEROL [id number] Larissa Diehl Otoniel PAL zolpidem tartrate 5 mg oral tablet (20 sources) gamma-Aminobutyric Acid-ergic Agonist Start: 09-26-2015 End: 12-09-2017 take 1 tablet by mouth at bedtime as needed for sleep Zolpidem 5 MG tablet Discontinued 5 mg ORAL AT BEDTIME NEEDED as needed for SLEEP September 26, 2015 1:00am December 09, 2017 9:57am Problems Active Problems Problem Classification Problem Date Documented Date Episodic/Chronic Cardiac dysrhythmias (20 sources) Persistent atrial fibrillation; Translations: [Atrial fibrillation] Onset: 2 Resolved: 6 10-08-2015 Chronic Chronic kidney disease (20 sources) Chronic kidney disease stage 3A ; Translations: [Stage 3a chronic kidney disease (HCC)] Onset: 2 Chronic Chronic obstructive pulmonary disease and bronchiectasis (20 sources) Mild chronic obstructive pulmonary disease; Translations: [Pulmonary emphysema] Onset: 6 07-08-2016 Chronic Chronic ulcer of skin (14 sources) 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 breakdown of skin; Translations: [Non-pressure chronic ulcer of left ankle, limited to breakdown of skin] 11-24-2023 Chronic Coronary atherosclerosis and other heart disease (20 sources) Coronary atherosclerosis; Translations: [Atherosclerotic heart disease of [place] coronary artery without angina pectoris] Onset: 5 Chronic Disorders of lipid metabolism (20 sources) Hyperlipidemia; Translations: [Hyperlipidemia, unspecified] Onset: 6 Resolved: 6 02-15-2017 Chronic Essential hypertension (20 sources) Hypertensive disorder; Translations: [Essential (primary) hypertension] Onset: 4 10-04-2015 Chronic Comment on above: CONTROLLED ON MED Fever of unknown origin (17 sources) Fever; Translations: [Fever, unspecified] 01-10-2019 Episodic Heart valve disorders (20 sources) Nonrheumatic aortic (valve) stenosis; Translations: [Nonrheumatic tricuspid (valve) insufficiency] Onset: 6 10-04-2015 Chronic Comment on above: Duensa Colby prost hetic aortic valve #26 @ [facility] 07/10/21 Hyperplasia of prostate (20 sources) Benign prostatic hyperplasia; Translations: [Benign prostatic hyperplasia without lower urinary tract symptoms] Onset: 2 Chronic Immunizations and screening for infectious disease (1 source) Vaccination needed; Translations: [Encounter for immunization] Episodic Malaise and fatigue (20 sources) Left hemiparesis; Translations: [Weakness] 10-03-2020 Episodic Comment on above: Brain MRI actually r eveals old infarcts but nothing acute: final dx TIA vs. complex partial seizure. 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] 04-06-2022 Episodic Other aftercare (9 sources) correction (current) use of anticoagulants; Translations: [Long-term (current) use of anticoagulants] Episodic Other aftercare (1 source) Long-term current use of drug therapy; Translations: [Other long term acute care registered nurse (current) drug therapy] 11-22-2017 Episodic Comment on above: Antihyperlipidemic Other and unspecified benign neoplasm (11 sources) History of adenomatous polyp of colon; Translations: [Personal history of colonic polyps] 10-30-2022 Episodic Other and unspecified benign neoplasm (8 sources) Personal history of colonic polyps; Translations: [Personal history of colonic polyps] 10-30-2022 Episodic Other circulatory disease (4 sources) Peripheral vascular disease; Translations: [Other specified peripheral vascular diseases] 11-17-2023 Chronic Other circulatory disease (3 sources) Other specified peripheral vascular diseases; Translations: [Other specified peripheral vascular diseases] 12-02-2023 Chronic Other circulatory disease (6 sources) Ankle flare; Translations: [Other specified symptoms and signs involving the circulatory and respiratory systems] 11-08-2023 Episodic Other circulatory disease (6 sources) History of transient ischemic attack; Translations: [Personal history of transient ischemic attack (TIA), and cerebral infarction without residual deficits] 11-08-2023 Episodic Other circulatory disease (5 sources) Other specified symptoms and signs involving the circulatory and respiratory systems; Translations: [Other symptoms involving cardiovascular system] 11-08-2023 Episodic Other circulatory disease (5 sources) Personal history of transient ischemic attack (TIA), and cerebral infarction without residual deficits; Translations: [Personal history of transient ischemic attack (TIA), and cerebral infarction without residual deficits] 11-08-2023 Episodic Other connective tissue disease (7 sources) History of total knee arthroplasty; Translations: [Presence of left artificial knee joint] 09-10-2023 Chronic Other connective tissue disease (9 sources) Presence of left artificial knee joint; Translations: [Knee joint replacement] 09-02-2023 Chronic Other connective tissue disease (6 sources) Swelling of left lower limb; Translations: [Other specified soft tissue disorders] 11-08-2023 Episodic Other connective tissue disease (5 sources) Other specified soft tissue disorders; Translations: [Swelling of limb] 11-08-2023 Episodic Other diseases of veins and lymphatics (6 sources) Peripheral venous insufficiency; Translations: [Venous insufficiency (chronic) (peripheral)] 11-08-2023 Episodic Other diseases of veins and lymphatics (6 sources) Stasis dermatitis; Translations: [Venous insufficiency (chronic) (peripheral)] 11-08-2023 Episodic Other diseases of veins and lymphatics (10 sources) Venous insufficiency (chronic) (peripheral); Translations: [Varicose veins of lower extremities with inflammation] 11-08-2023 Episodic Other eye disorders (17 sources) H/O: L cataract extraction; Translations: [Cataract extraction status, left eye] 08-29-2019 Episodic Comment on above: 2016 Other eye disorders (5 sources) Cataract extraction status, left eye; Translations: [Cataract extraction status] 11-08-2023 Episodic Other gastrointestinal disorders (20 sources) Stool DNA-based colorectal cancer screening positive; Translations: [Other fecal abnormalities] Onset: 0 Resolved: 3 05-06-2020 Episodic Other gastrointestinal disorders (2 sources) Other fecal abnormalities; Translations: [Abnormal feces] Episodic Other lower respiratory disease (20 sources) Dyspnea; Translations: [Lung mass] Onset: 6 Resolved: 6 11-20-2015 Episodic Other lower respiratory disease (20 sources) Lung mass; Translations: [Electrocardiogram abnormal] Onset: 6 Resolved: 2 11-23-2015 Episodic Other lower respiratory disease (17 sources) Dyspnea on exertion; Translations: [Dyspnea, unspecified] 04-15-2021 Episodic Other lower respiratory disease (17 sources) Solitary nodule of lung; Translations: [Solitary pulmonary nodule] 01-10-2019 Episodic Other lower respiratory disease (5 sources) Other forms of dyspnea; Translations: [Other respiratory abnormalities] 11-08-2023 Episodic Other lower respiratory disease (1 source) Hypoxia; Translations: [Hypoxemia] 08-28-2024 Episodic Other nutritional; endocrine; and metabolic disorders (19 sources) Body mass index (BMI) 35.0-35.9, adult; Translations: [Body mass index (BMI) 34.0-34.9, adult] Onset: 6 10-04-2015 Chronic Other nutritional; endocrine; and metabolic disorders (4 sources) Body mass index (BMI) 34.0-34.9, adult; Translations: [Body mass index (BMI) 34.0-34.9, adult] Onset: 6 10-08-2015 Chronic Other nutritional; endocrine; and metabolic disorders (2 sources) Body mass index (BMI) 38.0-38.9, adult; Translations: [Body mass index (BMI) 38.0-38.9, adult] Onset: 7 06-17-2017 Chronic Other nutritional; endocrine; and metabolic disorders (20 sources) Obese class II; Translations: [Obesity, unspecified] Onset: 9 04-13-2019 Chronic Other nutritional; endocrine; and metabolic disorders (1 source) Obese class I; Translations: [Obesity, unspecified] Onset: 1 07-17-2021 Chronic Other nutritional; endocrine; and metabolic disorders (20 sources) Body mass index 30+ - obesity; Translations: [Obesity, unspecified] Onset: 1 Chronic Other nutritional; endocrine; and metabolic disorders (8 sources) Obesity, unspecified; Translations: [Obesity, unspecified] Onset: 4 11-08-2023 Chronic Other upper respiratory infections (20 sources) Chronic sinusitis; Translations: [Chronic sinusitis, unspecified] Onset: 2 Resolved: 3 03-18-2012 Chronic Pulmonary heart disease (20 sources) Other secondary pulmonary hypertension; Translations: [Pulmonary arterial hypertension] Onset: 6 10-04-2015 Chronic Residual codes; unclassified (20 sources) Hypoxia; Translations: [Idiopathic sleep related nonobstructive alveolar hypoventilation] Onset: 1 09-16-2021 Chronic Residual codes; unclassified (12 sources) Obstructive sleep apnea (adult) (pediatric); Translations: [Obstructive sleep apnea (adult)(pediatric)] Onset: 4 Chronic Residual codes; unclassified (17 sources) Edema of lower extremity; Translations: [Localized edema] 01-10-2019 Episodic Residual codes; unclassified (17 sources) History of surgical procedure on mouth; Translations: [Other specified postprocedural states] 08-29-2019 Episodic Comment on above: 2011 Residual codes; unclassified (1 source) Swelling - edema - symptom; Translations: [Edema, unspecified] Episodic Residual codes; unclassified (6 sources) Localized edema; Translations: [Edema] Episodic Residual codes; unclassified (16 sources) Edema; Translations: [Edema, unspecified] 01-10-2019 Episodic Residual codes; unclassified (6 sources) Edema of left lower limb; Translations: [Localized edema] 11-08-2023 Episodic Respiratory failure; insufficiency; arrest (adult) (17 sources) Acute respiratory failure; Translations: [Acute respiratory failure with hypoxia] 10-03-2020 Episodic Skin and subcutaneous tissue infections (2 sources) Cellulitis of left lower limb; Translations: [Cellulitis of left lower limb] 10-18-2023 Episodic Substance-related disorders (5 sources) Cigarette smoker ; Translations: [Nicotine dependence, cigarettes, uncomplicated] 01-04-2024 Chronic Transient cerebral ischemia (17 sources) Transient cerebral ischemia; Translations: [Transient cerebral ischemic attack, unspecified] Onset: 9 10-03-2020 Chronic Unclassified (20 sources) Obstructive sleep apnea syndrome; Translations: [Body mass index (BMI) 34.0-34.9, adult] Onset: 6 01-07-2016 Chronic Unclassified (12 sources) Drug therapy finding; Translations: [correction (current) use of anticoagulants] Onset: 6 10-04-2015 Unclassified (9 sources) Long-term drug therapy; Translations: [Other long term acute care registered nurse (current) drug therapy] Onset: 7 06-15-2017 Unclassified (1 source) Chronic atrial fibrillation, unspecified; Translations: [Chronic atrial fibrillation (HCC)] Onset: 2 Urinary tract infections (1 source) Acute urinary tract infection; Translations: [Urinary tract infection, site not specified] 05-29-2024 Episodic Varicose veins of lower extremity (16 sources) Varicose veins of left lower extremity with ulcer of unspecified site; Translations: [Varicose veins of lower extremities with ulcer] 10-18-2023 Episodic Viral infection (18 sources) Disease caused by 2019-nCoV; Translations: [COVID-19] Onset: 1 03-28-2021 Episodic Viral infection (2 sources) COVID-19; Translations: [COVID-19] Onset: 4 Past or Other Problems Problem Classification Problem Date Documented Date Episodic/Chronic Diabetes mellitus without complication (20 sources) Hyperglycemia; Translations: [Hyperglycemia, unspecified] Onset: 03-18-2022 Episodic Genitourinary symptoms and ill-defined conditions (8 sources) Retention of urine; Translations: [Retention of urine, unspecified] Onset: 07-25-2012 Resolved: 01-27-2018 01-27-2018 Episodic Lymphadenitis (8 sources) Hilar lymphadenopathy ; Translations: [Localized enlarged lymph nodes] Onset: 04-13-2016 Resolved: 01-27-2018 09-09-2021 Episodic Miscellaneous mental health disorders (8 sources) Psychosexual dysfunction; Translations: [Unspecified sexual dysfunction not due to a substance or known physiological condition] Onset: 09-09-2006 Resolved: 04-13-2016 04-13-2016 Chronic Other aftercare (6 sources) Other fci (current) drug therapy; Translations: [Other long term acute care registered nurse (current) drug therapy] Onset: 02-15-2017 02-15-2017 Episodic Other and unspecified benign neoplasm (20 sources) Benign neoplasm of colon; Translations: [Benign neoplasm of colon, unspecified] Onset: 06-16-2011 06-16-2011 Episodic Other and unspecified benign neoplasm (16 sources) Adenomatous polyp of colon ; Translations: [Benign neoplasm of colon, unspecified] Onset: 06-16-2011 03-22-2023 Episodic Other and unspecified benign neoplasm (8 sources) Benign neoplasm of rectum and anal canal; Translations: [Benign neoplasm of rectum] Onset: 12-14-2011 Resolved: 04-13-2016 04-13-2016 Episodic Other and unspecified benign neoplasm (8 sources) Adenoma of left adrenal gland; Translations: [Benign neoplasm of left adrenal gland] Onset: 04-13-2016 Resolved: 01-27-2018 01-27-2018 Episodic Other circulatory disease (12 sources) Abnormal electrocardiogram [ECG] [EKG]; Translations: [Abnormal electrocardiogram [ECG] [EKG]] Onset: 10-08-2015 10-08-2015 Episodic Other diseases of veins and lymphatics (20 sources) Venous insufficiency of leg; Translations: [Venous insufficiency (chronic) (peripheral)] Onset: 04-28-2021 03-18-2022 Episodic Other lower respiratory disease (1 source) Hypoxemia; Translations: [Hypoxemia] Onset: 10-07-2024 Episodic Other lower respiratory disease (1 source) Dyspnea, unspecified; Translations: [Dyspnea, unspecified] Onset: 08-29-2024 Episodic Other male genital disorders (8 sources) Disorder of prostate; Translations: [Disorder of prostate, unspecified] Onset: 05-28-2005 Resolved: 04-13-2016 04-13-2016 Episodic Other nervous system disorders (14 sources) Finding of hand region; Translations: [Tremor, unspecified] Onset: 08-16-2023 08-16-2023 Episodic Other nutritional; endocrine; and metabolic disorders (8 sources) Obesity; Translations: [Obesity, unspecified] Onset: 05-28-2005 Resolved: 04-08-2015 04-08-2015 Chronic Pulmonary heart disease (20 sources) Other pulmonary embolism without acute cor pulmonale; Translations: [Pulmonary embolism] Onset: 09-27-2015 09-27-2015 Episodic Residual codes; unclassified (8 sources) Hypersomnia; Translations: [Hypersomnia, unspecified] Onset: 11-20-2015 Resolved: 06-24-2016 11-20-2015 Episodic Residual codes; unclassified (16 sources) Tobacco use and exposure - finding; Translations: [Tobacco use] Onset: 08-26-2005 Resolved: 04-13-2016 04-13-2016 Episodic Respiratory failure; insufficiency; arrest (adult) (8 sources) Dependence on continuous supplemental oxygen; Translations: [Dependence on supplemental oxygen] Onset: 08-22-2021 Resolved: 09-16-2021 09-16-2021 Chronic Unclassified (20 sources) Family history of stroke; Translations: [Hypersomnia] Onset: 11-20-2015 Resolved: 06-24-2016 10-08-2015 Episodic Results Test Name Value Interpretation Reference Range Facility Pulmonary Visit Reporton Pulmonary Visit Report [facility] [address] [place] [address] OFFICE VISIT Date of Service: 02/28/25 MR#: [id number] Acct: [id number] Name: JAVIER DEGROOT Rep #: [id number] : 1945 Provider: LIV Warner Age/Sex: 79/M Location: [facility] [place] Status: Signed with Addenda ADDENDUM by LIV Warner on 03/01/25 at 1412 Assessment and Plan Assessment and Plan (1) Other secondary pulmonary hypertension: Status: Chronic (2) Atrial fibrillation with RVR: Status: Chronic (3) NOAM (obstructive sleep apnea): Status: Chronic (4) Bilateral pulmonary embolism: Status: Chronic (5) Obesity (BMI 30-39.9): Status: Chronic Plan Details Health Concerns: Please note that the patient was ambulatory without the use of a walker or any other assistive device. Follow Up: 6 Months 03/01/25 1412 Date Erica Warner NP cc: Dr. Tomy Hernandez MD; [facility] * Signed Assessment and Plan Assessment and Plan (1) Other secondary pulmonary hypertension: Status: Chronic Plan: Continue compliance with diuretics and low-salt diet. The patient is compliant with 2 L/min of supplemental oxygen with ambulation and 3 LPM with sleep. (2) Atrial fibrillation with RVR: Status: Chronic Plan: Complicates exam, plan, care and prognosis. Compliance with medications managed by cardiology is imperative. Uncontrolled atrial fibrillation, especially with tachycardia, can be contributing to his shortness of breath. (3) NOAM (obstructive sleep apnea): Status: Chronic Plan: Treating with positional therapy, has an electric bed with head of bed up. He is compliant with supplemental oxygen at 3 LPM. (4) Bilateral pulmonary embolism: Status: Chronic Plan: Continue treatment with Eliquis. He will require lifelong anticoagulation. No signs of medication side effects, such as bleeding. (5) Obesity (BMI 30-39.9): Status: Chronic Plan: Complicates exam, plan, care and prognosis. He is shortness of breath on exertion is at least somewhat related to his BMI. Previously we discussed weight loss with dietary control. Small changes, such as portion control can result in weight loss. I also suggested limiting sweet treats. Plan Details Additional Comments: This note was generated with [employer] dictation software. It may contain incorrect words, spelling, and punctuation that were not noted in checking the note before signing. Follow Up: 6 Months HPI 1 Y FU Chief Complaint: shortness of breath HPI Comments Details: This patient presents to the office today for routine follow-up of his obstructive sleep apnea, for which she is noncompliant and hypoxic respiratory failure secondary to pulmonary arterial hypertension. He is ambulatory with the use of a walker. He is on supplemental oxygen and accompanied today by his . He has not recently been seen in the ED or urgent care for any respiratory illness. He has not required any antibiotics or prednisone for any breathing problems. He is not currently on any inhalers. He is compliant with diuretics as prescribed. He is compliant with 2 L of supplemental oxygen on exertion and 3 LPM with with sleep. He does have shortness of breath that is worse on exertion. He denies any cough, sputum production or hemoptysis. He denies any wheezing, chest tightness, chest pain or palpitations. He has not had any fever, chills or body aches. 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 DME Vendor: [employer] Accompanied by: Is patient in pain?: No Allergies lisinopril Adverse Reaction (Intermediate, Verified 02/28/25 12:47) cough Medications ???Medication ???Instructions ???Recorded ???Confirmed ???Type finasteride 5 mg tablet 5 mg PO DAILY prostate 09/24/15 History tamsulosin 0.4 mg capsule (Flomax) 0.8 mg PO QHS prostate 02/28/18 02/28/25 History Disability Placard #1 ea 01/01/21 02/28/25 Rx aspirin 81 mg capsule 81 mg PO DAILY antiplatelet 02/28/25 History inulin 2,500 mg-vitamin D3 500 2 tab PO DAILY supplement 08/12/23 02/28/25 History unit chewable tablet (Fiber Gummies with Vitamin D3) polyethylene glycol 3350 17 17 g PO DAILY stool softener 08/1202/28/25 History gram/dose oral powder (Miralax) atorvastatin 10 mg tablet 10 mg PO QDAY #9 (more content not included)... Normal [facility] Cardiology Visit Reporton Cardiology Visit Report [facility] [address] [place], [place] [id number] OFFICE VISIT Date of Service: 12/15/24 MR#: [id number] Acct: [id number] Name: JAVIER DEGROOT Rep #: [id number] : 1945 Provider: LIV quiñonez Age/Sex: 79/M Location: [facility] [place] Status: Signed HPI HPI History of Present Illness Details: This is a 79-year-old white male who presents to the office today for a cardiovascular follow-up visit. 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 He is now status post an annual post TAVR visit at [facility] in their [facility] office. This occurred on 06-30-2022. At that time he had a transthoracic echocardiogram performed. Per the report the left ventricle was normal with an LVEF of 60%., The left atrium was severely dilated, the TAVR valve was stable with a report of a peak gradient of 24 mmHg, mean gradient of 30 mmHg, dimensionless valve index of 0.36, and trace AI. There was a comment that the visualized aorta was borderline dilated with a maximal dimension of 3.8 cm. From a cardiac standpoint, the patient is doing well. He denies any palpitations, chest pain, pressure or heaviness. He does acknowledge SOB with walking-this is nothing new or worsening. He states that he does wear oxygen occasionally while walking. He denies Orthopnea, and PND. He does not have bleeding issues; no blood in urine, stool, or nosebleeds. He denies any decrease in energy level, myalgias, or claudication. He does not have edema, or sudden weight gain. He does wear compression stockings. He denies lightheadedness, dizziness, syncopal or near syncopal episodes, and headaches. 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 Is patient in pain?: No Allergies lisinopril Adverse Reaction (Intermediate, Verified 12/15/24 15:19) cough Medications ???Medication ???Instructions ???Recorded ???Confirmed ???Type finasteride 5 mg tablet 5 mg PO DAILY prostate 09/24/15 History tamsulosin 0.4 mg capsule (Flomax) 0.8 mg PO QHS prostate 02/28/18 12/15/24 History Disability Placard #1 ea 01/01/21 12/15/24 Rx aspirin 81 mg capsule 81 mg PO DAILY antiplatelet 12/15/24 History inulin 2,500 mg-vitamin D3 500 2 tab PO DAILY supplement 08/12/23 12/15/24 History unit chewable tablet (Fiber Gummies with Vitamin D3) polyethylene glycol 3350 17 17 g PO DAILY stool softener 08/1212/15/24 History gram/dose oral powder (Miralax) atorvastatin 10 mg tablet 10 mg PO QDAY #90 tabs 08/27/23 Rx diltiazem HCl 120 mg tablet 120 mg PO BID 90 days #180 tabs 12/15/24 Rx metoprolol tartrate 75 mg tablet 75 mg PO BID #180 tabs 08/27/23 Rx apixaban 5 mg tablet 5 mg PO BID blood thinner #180 tab s 11/29/23 12/15/24 Rx potassium chloride 20 mEq 30 meq PO DAILY potassium 01/04/24 12/15/24 History tablet,extended replacement release(part/cryst) (Klor-Con M) furosemide 40 mg tablet 40 mg PO DAILY fluid 05/09/2401/05 History acetaminophen 500 mg tablet 1,300 mg PO DAILY PRN pain 4 12/15/24 History cholecalciferol (vitamin D3) 25 1,000 unit PO DAILY supplement 02/0312/15/24 History mcg (1,000 unit) capsule docusate sodium 250 mg capsule 250 mg PO BID stool softener 05/1812/15/24 History amoxicillin 500 mg capsule 2,000 mg (4 x 500 mg) PO .COMPLEX 12/15/24 12/15/24 Rx #4 caps Ejection fraction %: 65 Have you fallen in the past year?: No [facility] Medical History Carcamo phlebectatica paraplantaris Venous ulcer of left leg Venous stasis dermatitis Leg edema, left Left leg swelling Chronic venous insufficiency Obesity (BMI 30-39.9) History of pulmonary embolism History of TIA (transient ischemic attack) Alcohol use Dietary restriction TIA (transient ischemic attack) History of pain when walking History of stress test Emphysema with chronic bronchitis Prostate disease High cholesterol History of COVID-19 Wears hearing aid Wears glasses Wears dentures Arthritis Pulmonary embolism Former smoker On home oxygen therapy COPD (chronic (more content not included)... Normal [facility] Pulmonary Visit Reporton Pulmonary Visit Report [facility] [place] [address] [place] [address] OFFICE VISIT Date of Service: 08/28/24 MR#: [id number] Acct: [id number] Name: JAVIER DEGROOT Rep #: [id number] : 1945 Provider: LIV Warner Age/Sex: 79/M Location: [facility] [place].[facility] Status: Signed Assessment and Plan Assessment and Plan (1) Other secondary pulmonary hypertension: Status: Chronic Plan: Continue compliance with diuretics and low-salt diet. The patient is compliant with 2 L/min of supplemental oxygen with ambulation and sleep. (2) Dyspnea on exertion: Status: Chronic Plan: Fairly stable. No additional testing at this time. (3) Atrial fibrillation with RVR: Status: Chronic Plan: Complicates exam, plan, care and prognosis. Follow-up in the office in February as previously scheduled. (4) NOAM (obstructive sleep apnea): Status: Chronic Plan: Treating with positional therapy, has an electric bed with head of bed up. He is compliant with supplemental oxygen at 2 LPM. We will preform a nocturnal oximetry to make sure he is at the appropriate liter flow. Nocturnal oximetry results to be discussed with the patient by phone once available. (5) Bilateral pulmonary embolism: Status: Chronic Plan: Continue treatment with Eliquis. (6) Obesity (BMI 30-39.9): Status: Chronic Plan: Deteriorated. The patient has recently put on 15 pounds. This is certainly not helping his shortness of breath on exertion. Highly encouraged the patient to monitor his dietary consumption and to watch his salt intake. He conveys understanding. Patient would like to have a knee replaced in 2024. I suggested that he would be in a much better place to recover from a knee replacement if he was able to get a few pounds back off. Orders: Orders OutPt Pulse Ox/Cont Overnight Today R09.02 - Hypoxemia HPI 3 M FU Chief Complaint: Shortness of breath on exertion HPI Comments Details: This patient presents to the office today for routine follow-up of his obstructive sleep apnea, for which she is noncompliant and hypoxic respiratory failure secondary to pulmonary arterial hypertension. He is ambulatory with the use of a walker. He is on supplemental oxygen and accompanied today by his . He has not recently been seen in the ED or urgent care for any respiratory illness. He has not required any antibiotics or prednisone for any breathing problems. He is not currently on any inhalers. He is compliant with diuretics as prescribed. He and his watches salt intake very closely. However, she admits that they have been eating a lot of cake and pie because she likes to bake. She has put on 10 pounds and he is put on 15 pounds. He is compliant with 2 L of supplemental oxygen on exertion and with with sleep. He does check his pulse ox several times daily. He reports that typically it is around 90%, however he recently noticed that with ambulation on 2 L of oxygen his saturation dropped to 87%. He does have shortness of breath on exertion. He denies any cough, sputum production or hemoptysis. He denies any wheezing, chest tightness, chest pain or palpitations. He has not had any fever, chills or body aches. Intake Vital Signs 06/02/24 13:27 08/28/24 07:46 Height 5 ft 7 in 5 ft 7 in Weight: 258 lb BMI 40.4 BP 150/80 H Blood Pressure Location Rt radial Position Sitting Respiration 22 H Pulse 68 Pulse Source Monitor Temp 97.4 F L Temperature Source Temporal Artery Pulse Oximetry (%) 96 Oxygen Delivery Method nasal canula Oxygen Flow Rate (L/min) 2 Intake Visit Reasons: 3 M FU Chief Complaint: Post COVID DME Vendor: none Accompanied by: Allergies lisinopril Adverse Reaction (Intermediate, Verified 08/28/24 12:52) cough Medications ???Medication ???Instructions ???Recorded ???Confirmed ???Type finasteride 5 mg tablet 5 mg PO DAILY prostate 09/24/15 08/28/24 History tamsulosin 0.4 mg capsule (Flomax) 0.8 mg PO QHS prostate 02/28/18 08/28/24 History Disability Placard #1 ea 01/01/21 08/28/24 Rx aspirin 81 mg capsule 81 mg PO DAILY antiplatelet 05/06/21 08/28/24 History inulin 2,500 mg-vitamin D3 500 2 tab PO DAILY supplement 08/12/23 08/28/24 History unit chewable tablet (Fiber Gummies with Vitamin D3) polyethylene glycol 3350 17 17 g PO DAILY stool softener 08/12/23 08/28/24 History gram/dose oral powder (Miralax) atorvastatin 10 mg tablet 10 mg PO QDAY #90 tabs 08/27/23 08/28/24 Rx diltiazem HCl 120 mg tablet 120 mg PO BID 90 days #180 tabs 08/27/23 08/28/24 Rx metoprolol tartrate 75 mg tablet 75 mg PO BID #180 tabs 08/27/23 08/28/24 Rx apixaban 5 mg tablet 5 mg PO BID blood thinner #180 tabs 11/29/23 08/28/24 Rx potassium chloride 20 mEq 30 meq PO DAILY potassium 01/04/24 08/28/24 (more content not included)... Normal [facility] Pulmonary Visit Reporton Pulmonary Visit Report [facility] [address] [place] [address] OFFICE VISIT Date of Service: 06/02/24 MR#: [id number] Acct: [id number] Name: ZANEJAVIER H Rep #: [id number] : 1945 Provider: LIV Warner Age/Sex: 78/M Location: [facility] [place].[facility] Status: Signed Assessment and Plan Assessment and Plan (1) Bilateral pulmonary embolism: Status: Chronic Plan: Continue treatment with Eliquis (2) Other secondary pulmonary hypertension: Status: Chronic Plan: Continue compliance with diuretics and low-salt diet. Walking oximetry performed in the office today, see vital signs. The patient has been encouraged to utilize 1.5 L/min of supplemental oxygen with ambulation. (3) Dyspnea on exertion: Status: Chronic Plan: Encouraged to utilize supplemental oxygen. We will send over an order for POC or portable tanks. (4) Atrial fibrillation with RVR: Status: Chronic Plan: Complicates exam, plan, care and prognosis. Follow-up in the office in 3 months. Plan Details Follow Up: 3 Months (CSM) HPI Cough Chief Complaint: Shortness of breath HPI Comments Details: This patient presents to the office today for hospital follow-up. He was hospitalized from May 18 through May 21, 2024 at [facility] for COVID and paroxysmal atrial fibrillation with rapid ventricular rate. He is ambulatory, currently on room air and accompanied today by his . The patient presented to the emergency department with complaints of fever and confusion. He had previously tested positive for COVID. Chest x-ray showed interstitial markings possibly consistent with edema or infection. He was treated with Decadron and remdesivir. He experienced atrial fibrillation with rapid ventricular rate requiring Cardizem and Lopressor. Continued anticoagulation with Eliquis. He is not currently on any inhalers. He is compliant with 2 water pills. He and his watches salt intake very closely. He is compliant with 2 L of supplemental oxygen with sleep. He does check his pulse ox several times daily. He does find it to be 89% on room air after completing a task. He admits that he does not check his saturation during ambulation. He does have shortness of breath on exertion, however it does not feel that bad. He has an occasional cough productive of clear-colored sputum. He denies any wheezing, chest tightness, chest pain or palpitations. He has not had any fever, chills or body aches. Intake Vital Signs 05/19/24 09:05 06/02/24 13:27 06/02/24 15:30 06/02/24 15:31 06/02/24 15:31 06/02/24 15:32 06/02/24 15:33 06/02/24 15:34 06/02/24 15:35 06/02/24 15:36 Height 5 ft 7 in 5 ft 7 in Weight: 243 lb BMI 38.0 BP 146/79 H Blood Pressure Location Rt brachial Position Sitting Respiration 18 Pulse 59 L 85 62 84 116 H 129 H 119 H 140 H Pulse Source Monitor Temp 97.3 F L Temperature Source Temporal Artery Pulse Oximetry (%) 94 95 90 88 97 95 94 93 92 Oxygen Delivery Method room air room air room air room air nasal canula nasal canula nasal ca nula nasal canula nasal canula Oxygen Flow Rate (L/min) 1.5 1.5 1.5 1.5 1.5 Comment at rest 1 minute 1.5 min: admin oxygen 1.5LPM via NC Pulse ox increased to 95% 2 minute s 3 minutes 4 minute 5 minute 6 minute Intake Visit Reasons: Cough Chief Complaint: Post COVID DME Vendor: [email or web address] for O2 Accompanied by: Allergies lisinopril Adverse Reaction (Intermediate, Verified 06/02/24 14:49) cough Medications ???Medication ???Instructions ???Recorded ???Confirmed ???Type finasteride 5 mg tablet 5 mg PO DAILY prostate 09/24/15 06/02/24 History tamsulosin 0.4 mg capsule (Flomax) 0.8 mg PO QHS prostate 02/28/18 06/02/24 History Disability Placard #1 ea 01/01/21 06/02/24 Rx aspirin 81 mg capsule 81 mg PO DAILY antiplatelet 05/06/21 06/02/24 History inulin 2,500 mg-vitamin D3 500 2 tab PO DAILY supplement 08/12/23 06/02/24 History unit chewable tablet (Fiber Gummies with Vitamin D3) polyethylene glycol 3350 17 17 g PO DAILY stool softener 08/12/23 06/02/24 History gram/dose oral powder (Miralax) atorvastatin 10 mg tablet 10 mg PO QDAY #90 tabs 08/27/23 06/02/24 Rx diltiazem HCl 120 mg tablet 120 mg PO BID 90 days #180 tabs 08/27/23 06/02/24 Rx metoprolol tartrate 75 mg tablet 75 mg PO BID #180 tabs 08/27/23 06/02/24 Rx apixaban 5 mg tablet 5 mg PO BID blood thinner #180 tabs 11/29/23 06/02/24 Rx potassium chloride 20 mEq 30 meq PO DAILY potassium 01/04/24 06/02/24 History tablet,extended replacement release(part/cryst) (Klor-Con M) furosemide 40 mg tablet 40 mg PO DAILY fluid 05/09/24 06/02/24 History acetaminophen 500 mg tablet 1,300 mg PO DAILY PRN pain 05/18/24 06/02/24 History cholecalciferol (vitamin (more content not included)... Normal [facility] Basic Metabolic Profile (BMP )on 05-23-2024 BUN Normal - [facility] Comment on above: Result Comment: Canc elled via OM: Order cancelled - Patient discharged Performed By: #### L 500.4050, L100.0100 #### [facility] [address] [place], [address] BUN/CRE Normal - [facility] Comment on above: Result Comment: Canc elled via OM: Order cancelled - Patient discharged Performed By: #### L 500.4050, L100.0100 #### [facility] [address] [place], [address] CA,Total Normal 8.5-10.1 [facility] Comment on above: Result Comment: Canc elled via OM: Order cancelled - Patient discharged Performed By: #### L 500.4050, L100.0100 #### [facility] [address] [place], [address] CL Normal 98-107 [facility] Comment on above: Result Comment: Canc elled via OM: Order cancelled - Patient discharged Performed By: #### L 500.4050, L100.0100 #### [facility] [address] [place], [address] CO2 Normal 21.0-32.0 [facility] Comment on above: Result Comment: Canc elled via OM: Order cancelled - Patient discharged Performed By: #### L 500.4050, L100.0100 #### [facility] [address] [place], [address] CREAT,SERUM Normal 0.70-1.30 [facility] Comment on above: Result Comment: Canc elled via OM: Order cancelled - Patient discharged Performed By: #### L 500.4050, L100.0100 #### [facility] [address] [place], [address] EST GFR Normal >60 [facility] Comment on above: Result Comment: Canc elled via OM: Order cancelled - Patient discharged Performed By: #### L 500.4050, L100.0100 #### [facility] [address] [place], [address] EST GFR - AA Normal >60 [facility] Comment on above: Result Comment: Canc elled via OM: Order cancelled - Patient discharged Performed By: #### L 500.4050, L100.0100 #### [facility] [address] [place], [address] GAP Normal 5-15 [facility] Comment on above: Result Comment: Canc elled via OM: Order cancelled - Patient discharged Performed By: #### L 500.4050, L100.0100 #### [facility] [address] [place], [address] GLU Normal 74-106 [facility] Comment on above: Result Comment: Canc elled via OM: Order cancelled - Patient discharged Performed By: #### L 500.4050, L100.0100 #### [facility] [address] [place], [address] Potassium Normal 3.5-5.1 [facility] Comment on above: Result Comment: Canc elled via OM: Order cancelled - Patient discharged Performed By: #### L 500.4050, L100.0100 #### [facility] [address] [place], [address] Basic Metabolic Profile (BMP) Normal 136-145 [facility] Comment on above: Result Comment: Canc elled via OM: Order cancelled - Patient discharged Performed By: #### L 500.4050, L100.0100 #### [facility] [address] [place], [address] CBC W/Diff, Automatedon 09-1 0-2023 Absolute Neut Normal 2.0-7.7 [facility] Comment on above: Result Comment: Canc elled via OM: Order cancelled - Patient discharged Performed By: #### L 500.4050, L100.0100 #### [facility] [address] [place], [address] HCT Normal 40-54 [facility] Comment on above: Result Comment: Canc elled via OM: Order cancelled - Patient discharged Performed By: #### L 500.4050, L100.0100 #### [facility] [address] [place], [address] HGB Normal 13.0-16.5 [facility] Comment on above: Result Comment: Canc elled via OM: Order cancelled - Patient discharged Performed By: #### L 500.4050, L100.0100 #### [facility] [address] [place], [address] MCH Normal 27.0-32.0 [facility] Comment on above: Result Comment: Canc elled via OM: Order cancelled - Patient discharged Performed By: #### L 500.4050, L100.0100 #### [facility] [address] [place], [address] MCHC Normal 32-36 [facility] Comment on above: Result Comment: Canc elled via OM: Order cancelled - Patient discharged Performed By: #### L 500.4050, L100.0100 #### [facility] [address] [place], [address] MCV Normal 80-94 [facility] Comment on above: Result Comment: Canc elled via OM: Order cancelled - Patient discharged Performed By: #### L 500.4050, L100.0100 #### [facility] [address] [place], [address] NEUT% Normal 47-70 [facility] Comment on above: Result Comment: Canc elled via OM: Order cancelled - Patient discharged Performed By: #### L 500.4050, L100.0100 #### [facility] [address] [place], [address] PLT Normal 150-450 [facility] Comment on above: Result Comment: Canc elled via OM: Order cancelled - Patient discharged Performed By: #### L 500.4050, L100.0100 #### [facility] [address] [place], [address] RBC Normal 4.6-6.2 [facility] Comment on above: Result Comment: Canc elled via OM: Order cancelled - Patient discharged Performed By: #### L 500.4050, L100.0100 #### [facility] [address] [place], [address] RDW CV Normal 11.6-14.6 [facility] Comment on above: Result Comment: Canc elled via OM: Order cancelled - Patient discharged Performed By: #### L 500.4050, L100.0100 #### [facility] [address] [place], [address] RDW SD Normal 35.1-43.9 [facility] Comment on above: Result Comment: Canc elled via OM: Order cancelled - Patient discharged Performed By: #### L 500.4050, L100.0100 #### [facility] [address] [place], [address] WBC Normal 4.4-11.0 [facility] Comment on above: Result Comment: Canc elled via OM: Order cancelled - Patient discharged Performed By: #### L 500.4050, L100.0100 #### [facility] [address] [place], [address] Basic Metabolic Profile (BMP )on 05-22-2024 BUN Normal 7-18 [facility] Comment on above: Result Comment: Canc elled via OM: Order cancelled - Patient discharged Performed By: #### L 500.2500, L100.0100 #### [facility] [address] [place], [address] BUN/CRE Normal 10-20 [facility] Comment on above: Result Comment: Canc elled via OM: Order cancelled - Patient discharged Performed By: #### L 500.2500, L100.0100 #### [facility] [address] [place], [address] CA,Total Normal 8.5-10.1 [facility] Comment on above: Result Comment: Canc elled via OM: Order cancelled - Patient discharged Performed By: #### L 500.2500, L100.0100 #### [facility] [address] [place], [address] CL Normal 98-107 [facility] Comment on above: Result Comment: Canc elled via OM: Order cancelled - Patient discharged Performed By: #### L 500.2500, L100.0100 #### [facility] [address] [place], [address] CO2 Normal 21.0-32.0 [facility] Comment on above: Result Comment: Canc elled via OM: Order cancelled - Patient discharged Performed By: #### L 500.2500, L100.0100 #### [facility] [address] [place], [address] CREAT,SERUM Normal 0.70-1.30 [facility] Comment on above: Result Comment: Canc elled via OM: Order cancelled - Patient discharged Performed By: #### L 500.2500, L100.0100 #### [facility] [address] [place], [address] EST GFR Normal >60 [facility] Comment on above: Result Comment: Canc elled via OM: Order cancelled - Patient discharged Performed By: #### L 500.2500, L100.0100 #### [facility] [address] [place], [address] EST GFR - AA Normal >60 [facility] Comment on above: Result Comment: Canc elled via OM: Order cancelled - Patient discharged Performed By: #### L 500.2500, L100.0100 #### [facility] [address] [place], [address] GAP Normal 5-15 [facility] Comment on above: Result Comment: Canc elled via OM: Order cancelled - Patient discharged Performed By: #### L 500.2500, L100.0100 #### [facility] [address] [place], [address] GLU Normal 74-106 [facility] Comment on above: Result Comment: Canc elled via OM: Order cancelled - Patient discharged Performed By: #### L 500.2500, L100.0100 #### [facility] [address] [place], [address] Potassium Normal 3.5-5.1 [facility] Comment on above: Result Comment: Canc elled via OM: Order cancelled - Patient discharged Performed By: #### L 500.2500, L100.0100 #### [facility] [address] [place], [address] Basic Metabolic Profile (BMP) Normal 136-145 [facility] Comment on above: Result Comment: Canc elled via OM: Order cancelled - Patient discharged Performed By: #### L 500.2500, L100.0100 #### [facility] [address] [place], [address] CBC W/Diff, Automatedon 09-0 -2023 Absolute Neut Normal 2.0-7.7 [facility] Comment on above: Result Comment: Canc elled via OM: Order cancelled - Patient discharged Performed By: #### L 500.2500, L100.0100 #### [facility] [address] [place], [address] HCT Normal 40-54 [facility] Comment on above: Result Comment: Canc elled via OM: Order cancelled - Patient discharged Performed By: #### L 500.2500, L100.0100 #### [facility] [address] [place], [address] HGB Normal 13.0-16.5 [facility] Comment on above: Result Comment: Canc elled via OM: Order cancelled - Patient discharged Performed By: #### L 500.2500, L100.0100 #### [facility] [address] [place], [address] MCH Normal 27.0-32.0 [facility] Comment on above: Result Comment: Canc elled via OM: Order cancelled - Patient discharged Performed By: #### L 500.2500, L100.0100 #### [facility] [address] [place], [address] MCHC Normal 32-36 [facility] Comment on above: Result Comment: Canc elled via OM: Order cancelled - Patient discharged Performed By: #### L 500.2500, L100.0100 #### [facility] [address] [place], [address] MCV Normal 80-94 [facility] Comment on above: Result Comment: Canc elled via OM: Order cancelled - Patient discharged Performed By: #### L 500.2500, L100.0100 #### [facility] [address] [place], [address] NEUT% Normal 47-70 [facility] Comment on above: Result Comment: Canc elled via OM: Order cancelled - Patient discharged Performed By: #### L 500.2500, L100.0100 #### [facility] [address] [place], [address] PLT Normal 150-450 [facility] Comment on above: Result Comment: Canc elled via OM: Order cancelled - Patient discharged Performed By: #### L 500.2500, L100.0100 #### [facility] [address] [place], [address] RBC Normal 4.6-6.2 [facility] Comment on above: Result Comment: Canc elled via OM: Order cancelled - Patient discharged Performed By: #### L 500.2500, L100.0100 #### [facility] [address] [place], [address] RDW CV Normal 11.6-14.6 [facility] Comment on above: Result Comment: Canc elled via OM: Order cancelled - Patient discharged Performed By: #### L 500.2500, L100.0100 #### [facility] [address] [place], [address] RDW SD Normal 35.1-43.9 [facility] Comment on above: Result Comment: Canc elled via OM: Order cancelled - Patient discharged Performed By: #### L 500.2500, L100.0100 #### [facility] [address] [place], [address] WBC Normal 4.4-11.0 [facility] Comment on above: Result Comment: Canc elled via OM: Order cancelled - Patient discharged Performed By: #### L 500.2500, L100.0100 #### [facility] [address] [place], [address] Basic Metabolic Profile (BMP )on 05-21-2024 BUN/CRE 27.2 RATIO High 10-20 [facility] Comment on above: Performed By: #### L 500.2500, L100.0100, L503.6620 #### [facility] [address] [place], [address] CA,Total 8.9 mg/dL Normal 8.5-10.1 [facility] Comment on above: Performed By: #### L 500.2500, L100.0100, [id number] #### [facility] [address] [place], [address] Chloride [Moles/Vol] 110 mmol/L High 98-107 [facility] Comment on above: Performed By: #### L 500.2500, L100.0100, [id number] #### [facility] [address] [place], [address] CO2 [Moles/Vol] 26.0 mmol/L Normal 21.0-32.0 [facility] Comment on above: Performed By: #### L 500.2500, L100.0100, [id number] #### [facility] [address] [place], [address] Creatinine [Mass/Vol] 1.03 mg/dL Normal 0.70-1.30 [facility] Comment on above: Result Comment: The validity of the calculated GFR GFRAA in patients over 70 years has not been determined. Clinical correlation is essential. Performed By: #### L 500.2500, L100.0100, L503.6620 #### [facility] [address] [place], [address] ECRCL 68.98 ml/min Normal [facility] Comment on above: Performed By: #### L 500.2500, L100.0100, [id number] #### [facility] [address] [place], [address] EST GFR - AA 89 mL/min Normal >60 [facility] Comment on above: Result Comment: Afri can Ecuadorean GFR Calc Performed By: #### L 500.2500, L100.0100, L503.6620 #### [facility] [address] [place], [address] GAP 5 Normal 5-15 [facility] Comment on above: Performed By: #### L 500.2500, L100.0100, [id number] #### [facility] [address] [place], [address] GFR/1.73 sq M.predicted among non-blacks MDRD (S/P/Bld) [Vol rate/Area] 74 mL/min/{1.73_m2} Normal >60 [facility] Comment on above: Result Comment: Non- GFR Calc Performed By: #### L 500.2500, L100.0100, L503.6620 #### [facility] [address] [place], [address] Glucose [Mass/Vol] 137 mg/dL High 74-106 [facility] Comment on above: Result Comment: Fast ing Glucose result greater than or equal to 126 mg/dL suggests DIABETES MELLITUS per A.D.A. criteria. Performed By: #### L 500.2500, L100.0100, L503.6620 #### [facility] [address] [place], [address] Potassium [Moles/Vol] 4.4 mmol/L Normal 3.5-5.1 [facility] Comment on above: Performed By: #### L 500.2500, L100.0100, [id number] #### [facility] [address] [place], [address] Sodium [Moles/Vol] 141 mmol/L Normal 136-145 [facility] Comment on above: Performed By: #### L 500.2500, L100.0100, [id number] #### [facility] [address] [place], [address] Urea nitrogen [Mass/Vol] 28 mg/dL High 7-18 [facility] Comment on above: Performed By: #### L 500.2500, L100.0100, [id number] #### [facility] [address] [place], [address] CBC W/Diff, Automatedon 09-0 8-4 Absolute Lymph 0.77 X10 3/uL Low 0.83-4.51 [facility] Comment on above: Performed By: #### L 500.2500, L100.0100, [id number] #### [facility] [address] [place], [address] Absolute Neut 11.0 X10 3/uL High 2.0-7.7 [facility] Comment on above: Performed By: #### L 500.2500, L100.0100, [id number] #### [facility] [address] [place], [address] Basophils/100 WBC (Bld) 0.2 % Normal 0-1 [facility] Comment on above: Performed By: #### L 500.2500, L100.0100, [id number] #### [facility] [address] [place], [address] Eosinophils/100 WBC (Bld) 0.0 % Normal 0-5 [facility] Comment on above: Performed By: #### L 500.2500, L100.0100, [id number] #### [facility] [address] [place], [address] Erythrocyte distribution width (RBC) [Ratio] 13.4 % Normal 11.6-14.6 [facility] Comment on above: Performed By: #### L 500.2500, L100.0100, [id number] #### [facility] [address] [place], [address] Hematocrit (Bld) [Volume fraction] 42.3 % Normal 40-54 [facility] Comment on above: Performed By: #### L 500.2500, L100.0100, [id number] #### [facility] [address] [place], [address] Hemoglobin (Bld) [Mass/Vol] 13.4 g/dL Normal 13.0-16.5 [facility] Comment on above: Performed By: #### L 500.2500, L100.0100, L503.6620 #### [facility] [address] [place], [address] IG% 0.600 Normal 0.0-0.9 [facility] Comment on above: Result Comment: IG% - Immature Granulocytes (promyelocytes, myelocytes and metamyelocytes) > 1% indicates that a LEFT SHIFT is Present. Performed By: #### L 500.2500, L100.0100, L503.6620 #### [facility] [address] [place], [address] Lymphocytes/100 WBC (Bld) 6.0 % Low 19-41 [facility] Comment on above: Performed By: #### L 500.2500, L100.0100, [id number] #### [facility] [address] [place], [address] MCH (RBC) [Entitic mass] 30.9 pg Normal 27.0-32.0 [facility] Comment on above: Performed By: #### L 500.2500, L100.0100, [id number] #### [facility] [address] [place], [address] MCHC (RBC) [Mass/Vol] 31.7 g/dL Low 32-36 [facility] Comment on above: Performed By: #### L 500.2500, L100.0100, [id number] #### [facility] [address] [place], [address] MCV (RBC) [Entitic vol] 97.7 fL High 80-94 [facility] Comment on above: Performed By: #### L 500.2500, L100.0100, [id number] #### [facility] [address] [place], [address] Monocytes/100 WBC (Bld) 7.6 % Normal 0-10 [facility] Comment on above: Performed By: #### L 500.2500, L100.0100, [id number] #### [facility] [address] [place], [address] Neutrophils/100 WBC (Bld) 85.6 % High 47-70 [facility] Comment on above: Performed By: #### L 500.2500, L100.0100, [id number] #### [facility] [address] [place], [address] Nucleated RBC (Bld) [#/Vol] 0 10*3/uL Normal 0-5 [facility] Comment on above: Performed By: #### L 500.2500, L100.0100, [id number] #### [facility] [address] [place], [address] Platelet mean volume (Bld) [Entitic vol] 10.0 fL Normal 6.2-12.0 [facility] Comment on above: Performed By: #### L 500.2500, L100.0100, [id number] #### [facility] [address] [place], [address] Platelets (Bld) [#/Vol] 203 10*3/uL Normal 150-450 [facility] Comment on above: Performed By: #### L 500.2500, L100.0100, [id number] #### [facility] [address] [place], [address] RBC (Bld) [#/Vol] 4.33 10*6/uL Low 4.6-6.2 [facility] Comment on above: Performed By: #### L 500.2500, L100.0100, [id number] #### [facility] [address] [place], [address] RDW SD 48.3 fl High 35.1-43.9 [facility] Comment on above: Performed By: #### L 500.2500, L100.0100, [id number] #### [facility] [address] [place], [address] WBC (Bld) [#/Vol] 12.8 10*3/uL High 4.4-11.0 [facility] Comment on above: Performed By: #### L 500.2500, L100.0100, [id number] #### [facility] [address] [place], [address] Magnesiumon 05-21-2024 Magnesium [Mass/Vol] 2.2 mg/dL Normal 1.6-2.6 [facility] Comment on above: Performed By: #### L 500.2500, L100.0100, [id number] #### [facility] [address] [place], [address] Phosphoruson 05-21-2024 Phosphate [Mass/Vol] 3.1 mg/dL Normal 2.5-4.9 [facility] Comment on above: Performed By: #### L 500.2500, L100.0100, [id number] #### [facility] [address] [place], [address] Urine Cultureon 05-21-2024 URC #2 Organism is too fastidious for routine susceptibility studies. Presumptive E. coli [place] Count 11,000-25,000 Aerococcus sanguinicola [place] Count 80,000-100,000 Presumptive E. coli: REACTION Ampicillin Islt DENA >=32 R Ampicillin+Sulbac Islt DENA >=32 R ceFAZolin Islt DENA >=64 R Cefepime Islt DENA 0.5 S cefTRIAXone Islt DENA >=64 R Ciprofloxacin Islt DENA <=0.25 S B-Lactamase Extended Susc Islt NEG Gentamicin Islt DENA <=1 S Imipenem Islt DENA <=0.25 S levoFLOXacin Islt DENA <=0.12 S Nitrofurantoin Islt DENA <=16 S Pip+Tazo Islt DENA 64 I Tobramycin Islt DENA <=1 S TMP SMX Islt DENA <=20 S Normal [facility] Comment on above: Performed By: #### L 500.2500, L100.0100, [id number] #### [facility] [address] [place], [address] Basic Metabolic Profile (BMP )on 05-20-2024 BUN/CRE 22.7 RATIO High 10-20 [facility] Comment on above: Performed By: #### L 500.4050, L100.0100 #### [facility] [address] [place], [address] CA,Total 9.0 mg/dL Normal 8.5-10.1 [facility] Comment on above: Performed By: #### L 500.4050, L100.0100 #### [facility] [address] [place], [address] Chloride [Moles/Vol] 110 mmol/L High 98-107 [facility] Comment on above: Performed By: #### L 500.4050, L100.0100 #### [facility] [address] [place], [address] CO2 [Moles/Vol] 26.0 mmol/L Normal 21.0-32.0 [facility] Comment on above: Performed By: #### L 500.4050, L100.0100 #### [facility] [address] [place], [address] Creatinine [Mass/Vol] 1.10 mg/dL Normal 0.70-1.30 [facility] Comment on above: Result Comment: The validity of the calculated GFR GFRAA in patients over 70 years has not been determined. Clinical correlation is essential. Performed By: #### L 500.4050, L100.0100 #### [facility] [address] [place], [address] ECRCL 64.65 ml/min Normal [facility] Comment on above: Performed By: #### L 500.4050, L100.0100 #### [facility] [address] [place], [address] EST GFR - AA 83 mL/min Normal >60 [facility] Comment on above: Result Comment: Afri can [place]cu[place] GFR Calc Performed By: #### L 500.4050, L100.0100 #### [facility] [address] [place], [address] GAP 4 Low 5-15 [facility] Comment on above: Performed By: #### L 500.4050, L100.0100 #### [facility] [address] [place], [address] GFR/1.73 sq M.predicted among non-blacks MDRD (S/P/Bld) [Vol rate/Area] 69 mL/min/{1.73_m2} Normal >60 [facility] Comment on above: Result Comment: Non- GFR Calc Performed By: #### L 500.4050, L100.0100 #### [facility] [address] [place], [address] Glucose [Mass/Vol] 168 mg/dL High 74-106 [facility] Comment on above: Result Comment: Fast ing Glucose result greater than or equal to 126 mg/dL suggests DIABETES MELLITUS per A.D.A. criteria. Performed By: #### L 500.4050, L100.0100 #### [facility] [address] [place], [address] Potassium [Moles/Vol] 4.1 mmol/L Normal 3.5-5.1 [facility] Comment on above: Performed By: #### L 500.4050, L100.0100 #### [facility] [address] [place], [address] Sodium [Moles/Vol] 140 mmol/L Normal 136-145 [facility] Comment on above: Performed By: #### L 500.4050, L100.0100 #### [facility] [address] [place], [address] Urea nitrogen [Mass/Vol] 25 mg/dL High 7-18 [facility] Comment on above: Performed By: #### L 500.4050, L100.0100 #### [facility] [address] [place], [address] CBC W/Diff, Automatedon 09-0 7-2023 Absolute Lymph 0.62 X10 3/uL Low 0.83-4.51 [facility] Comment on above: Performed By: #### L 500.2500, L100.0100, [id number] #### [facility] [address] [place], [address] Absolute Neut 9.7 X10 3/uL High 2.0-7.7 [facility] Comment on above: Performed By: #### L 500.2500, L100.0100, [id number] #### [facility] [address] [place], [address] Basophils/100 WBC (Bld) 0.1 % Normal 0-1 [facility] Comment on above: Performed By: #### L 500.2500, L100.0100, [id number] #### [facility] [address] [place], [address] Eosinophils/100 WBC (Bld) 0.0 % Normal 0-5 [facility] Comment on above: Performed By: #### L 500.2500, L100.0100, [id number] #### [facility] [address] [place], [address] Erythrocyte distribution width (RBC) [Ratio] 13.2 % Normal 11.6-14.6 [facility] Comment on above: Performed By: #### L 500.2500, L100.0100, [id number] #### [facility] [address] [place], [address] Hematocrit (Bld) [Volume fraction] 41.7 % Normal 40-54 [facility] Comment on above: Performed By: #### L 500.2500, L100.0100, [id number] #### [facility] [address] [place], [address] Hemoglobin (Bld) [Mass/Vol] 13.6 g/dL Normal 13.0-16.5 [facility] Comment on above: Performed By: #### L 500.2500, L100.0100, L5.20 #### [facility] [address] [place], [address] IG% 0.500 Normal 0.0-0.9 [facility] Comment on above: Result Comment: IG% - Immature Granulocytes (promyelocytes, myelocytes and metamyelocytes) > 1% indicates that a LEFT SHIFT is Present. Performed By: #### L 500.2500, L100.0100, L503.6620 #### [facility] [address] [place], [address] Lymphocytes/100 WBC (Bld) 5.6 % Low 19-41 [facility] Comment on above: Performed By: #### L 500.2500, L100.0100, [id number] #### [facility] [address] [place], [address] MCH (RBC) [Entitic mass] 31.9 pg Normal 27.0-32.0 [facility] Comment on above: Performed By: #### L 500.2500, L100.0100, [id number] #### [facility] [address] [place], [address] MCHC (RBC) [Mass/Vol] 32.6 g/dL Normal 32-36 [facility] Comment on above: Performed By: #### L 500.2500, L100.0100, [id number] #### [facility] [address] [place], [address] MCV (RBC) [Entitic vol] 97.7 fL High 80-94 [facility] Comment on above: Performed By: #### L 500.2500, L100.0100, [id number] #### [facility] [address] [place], [address] Monocytes/100 WBC (Bld) 6.8 % Normal 0-10 [facility] Comment on above: Performed By: #### L 500.2500, L100.0100, [id number] #### [facility] [address] [place], [address] Neutrophils/100 WBC (Bld) 87.0 % High 47-70 [facility] Comment on above: Performed By: #### L 500.2500, L100.0100, [id number] #### [facility] [address] [place], [address] Nucleated RBC (Bld) [#/Vol] 0 10*3/uL Normal 0-5 [facility] Comment on above: Performed By: #### L 500.2500, L100.0100, [id number] #### [facility] [address] [place], [address] Platelet mean volume (Bld) [Entitic vol] 9.8 fL Normal 6.2-12.0 [facility] Comment on above: Performed By: #### L 500.2500, L100.0100, L503.6620 #### [facility] [address] [place], [address] Platelets (Bld) [#/Vol] 183 10*3/uL Normal 150-450 [facility] Comment on above: Performed By: #### L 500.2500, L100.0100, L503.6620 #### [facility] [address] [place], [address] RBC (Bld) [#/Vol] 4.27 10*6/uL Low 4.6-6.2 [facility] Comment on above: Performed By: #### L 500.2500, L100.0100, L503.6620 #### [facility] [address] [place], [address] RDW SD 47.3 fl High 35.1-43.9 [facility] Comment on above: Performed By: #### L 500.2500, L100.0100, L503.6620 #### [facility] [address] [place], [address] WBC (Bld) [#/Vol] 11.1 10*3/uL High 4.4-11.0 [facility] Comment on above: Performed By: #### L 500.2500, L100.0100, L503.6620 #### [facility] [address] [place], [address] Magnesiumon 05-20-2024 Magnesium [Mass/Vol] 2.3 mg/dL Normal 1.6-2.6 [facility] Comment on above: Performed By: #### L 500.4050, L100.0100 #### [facility] [address] [place], [address] Phosphoruson 05-20-2024 Phosphate [Mass/Vol] 2.7 mg/dL Normal 2.5-4.9 [facility] Comment on above: Performed By: #### L 500.2500, L100.0100, L503.6620 #### [facility] [address] [place], [address] CBC W/Diff, Automatedon 09-0 PATH REV Reviewed Normal [facility] Comment on above: Result Comment: Neut rophilic leukocytosis. Macrocytosis Clinical correlation necessary. Pathologist comment added aJn Hatch M.D. 05/19/24 AMENDED REPORT 05/19/24 1021 PATH REV previously reported as: January Performed By: #### L 500.2500, L100.0100, L503.6620 #### [facility] [address] [place], [address] Absolute Lymph 0.49 X10 3/uL Low 0.83-4.51 [facility] Comment on above: Performed By: #### L 500.4050, L100.0100 #### [facility] [address] [place], [address] Absolute Neut 6.3 X10 3/uL Normal 2.0-7.7 [facility] Comment on above: Performed By: #### L 500.4050, L100.0100 #### [facility] [address] [place], [address] Basophils/100 WBC (Bld) 0.4 % Normal 0-1 [facility] Comment on above: Performed By: #### L 500.4050, L100.0100 #### [facility] [address] [place], [address] Eosinophils/100 WBC (Bld) 0.0 % Normal 0-5 [facility] Comment on above: Performed By: #### L 500.4050, L100.0100 #### [facility] [address] [place], [address] Erythrocyte distribution width (RBC) [Ratio] 13.2 % Normal 11.6-14.6 [facility] Comment on above: Performed By: #### L 500.4050, L100.0100 #### [facility] [address] [place], [address] Hematocrit (Bld) [Volume fraction] 40.2 % Normal 40-54 [facility] Comment on above: Performed By: #### L 500.4050, L100.0100 #### [facility] [address] [place], [address] Hemoglobin (Bld) [Mass/Vol] 13.0 g/dL Normal 13.0-16.5 [facility] Comment on above: Performed By: #### L 500.4050, L100.0100 #### [facility] [address] [place], [address] IG% 0.700 Normal 0.0-0.9 [facility] Comment on above: Result Comment: IG% - Immature Granulocytes (promyelocytes, myelocytes and metamyelocytes) > 1% indicates that a LEFT SHIFT is Present. Performed By: #### L 500.4050, L100.0100 #### [facility] [address] [place], [address] Lymphocytes/100 WBC (Bld) 6.7 % Low 19-41 [facility] Comment on above: Performed By: #### L 500.4050, L100.0100 #### [facility] [address] [place], [address] MCH (RBC) [Entitic mass] 31.7 pg Normal 27.0-32.0 [facility] Comment on above: Performed By: #### L 500.4050, L100.0100 #### [facility] [address] [place], [address] MCHC (RBC) [Mass/Vol] 32.3 g/dL Normal 32-36 [facility] Comment on above: Performed By: #### L 500.4050, L100.0100 #### [facility] [address] [place], [address] MCV (RBC) [Entitic vol] 98.0 fL High 80-94 [facility] Comment on above: Performed By: #### L 500.4050, L100.0100 #### [facility] [address] [place], [address] Monocytes/100 WBC (Bld) 6.2 % Normal 0-10 [facility] Comment on above: Performed By: #### L 500.4050, L100.0100 #### [facility] [address] [place], [address] Neutrophils/100 WBC (Bld) 86.0 % High 47-70 [facility] Comment on above: Performed By: #### L 500.4050, L100.0100 #### [facility] [address] [place], [address] Nucleated RBC (Bld) [#/Vol] 0 10*3/uL Normal 0-5 [facility] Comment on above: Performed By: #### L 500.4050, L100.0100 #### [facility] [address] [place], [address] Platelet mean volume (Bld) [Entitic vol] 9.4 fL Normal 6.2-12.0 [facility] Comment on above: Performed By: #### L 500.4050, L100.0100 #### [facility] [address] [place], [address] Platelets (Bld) [#/Vol] 152 10*3/uL Normal 150-450 [facility] Comment on above: Performed By: #### L 500.4050, L100.0100 #### [facility] [address] [place], [address] RBC (Bld) [#/Vol] 4.10 10*6/uL Low 4.6-6.2 [facility] Comment on above: Performed By: #### L 500.4050, L100.0100 #### [facility] [address] [place], [address] RDW SD 47.2 fl High 35.1-43.9 [facility] Comment on above: Performed By: #### L 500.4050, L100.0100 #### [facility] [address] [place], [address] WBC (Bld) [#/Vol] 7.3 10*3/uL Normal 4.4-11.0 [facility] Comment on above: Performed By: #### L 500.4050, L100.0100 #### [facility] [address] [place], [address] Comprehensive Metabolic Prof [facility] 05-19-2024 Albumin [Mass/Vol] 3.0 g/dL Low 3.2-5.0 [facility] Comment on above: Performed By: #### L 500.4050, L100.0100 #### [facility] [address] [place], [address] Albumin/Globulin [Mass ratio] 0.8 {ratio} Low 0.9-2.4 [facility] Comment on above: Performed By: #### L 500.4050, L100.0100 #### [facility] [address] [place], [address] ALK P 79 U/L Normal 45-117 [facility] Comment on above: Performed By: #### L 500.4050, L100.0100 #### [facility] [address] [place], [address] ALT [Catalytic activity/Vol] 22 U/L Normal 16-61 [facility] Comment on above: Performed By: #### L 500.4050, L100.0100 #### [facility] [address] [place], [address] AST [Catalytic activity/Vol] 20 U/L Normal 15-37 [facility] Comment on above: Performed By: #### L 500.4050, L100.0100 #### [facility] [address] [place], [address] Bilirubin [Mass/Vol] 0.50 mg/dL Normal 0.20-1.00 [facility] Comment on above: Result Comment: For patients on eltrombopag therapy, use of Dimension Bailey TBIL is not recommended. Performed By: #### L 500.4050, L100.0100 #### [facility] [address] [place], [address] BUN/CRE 16.9 RATIO Normal 10-20 [facility] Comment on above: Performed By: #### L 500.4050, L100.0100 #### [facility] [address] [place], [address] CA,Total 8.9 mg/dL Normal 8.5-10.1 [facility] Comment on above: Performed By: #### L 500.4050, L100.0100 #### [facility] [address] [place], [address] Chloride [Moles/Vol] 108 mmol/L High 98-107 [facility] Comment on above: Performed By: #### L 500.4050, L100.0100 #### [facility] [address] [place], [address] CO2 [Moles/Vol] 25.0 mmol/L Normal 21.0-32.0 [facility] Comment on above: Performed By: #### L 500.4050, L100.0100 #### [facility] [address] [place], [address] Creatinine [Mass/Vol] 1.24 mg/dL Normal 0.70-1.30 [facility] Comment on above: Result Comment: The validity of the calculated GFR GFRAA in patients over 70 years has not been determined. Clinical correlation is essential. Performed By: #### L 500.4050, L100.0100 #### [facility] [address] [place], [address] ECRCL 57.21 ml/min Normal [facility] Comment on above: Performed By: #### L 500.4050, L100.0100 #### [facility] [address] [place], [address] EST GFR - AA 72 mL/min Normal >60 [facility] Comment on above: Result Comment: Afri can Ecuadorean GFR Calc Performed By: #### L 500.4050, L100.0100 #### [facility] [address] [place], [address] GAP 5 Normal 5-15 [facility] Comment on above: Performed By: #### L 500.4050, L100.0100 #### [facility] [address] [place], [address] GFR/1.73 sq M.predicted among non-blacks MDRD (S/P/Bld) [Vol rate/Area] 60 mL/min/{1.73_m2} Normal >60 [facility] Comment on above: Result Comment: Non- GFR Calc Performed By: #### L 500.4050, L100.0100 #### [facility] [address] [place], [address] Globulin (S) [Mass/Vol] 3.7 g/dL Normal 2.2-4.2 [facility] Comment on above: Performed By: #### L 500.4050, L100.0100 #### [facility] [address] [place], [address] Glucose [Mass/Vol] 147 mg/dL High 74-106 [facility] Comment on above: Result Comment: Fast ing Glucose result greater than or equal to 126 mg/dL suggests DIABETES MELLITUS per A.D.A. criteria. Performed By: #### L 500.4050, L100.0100 #### [facility] [address] [place], [address] Potassium [Moles/Vol] 3.9 mmol/L Normal 3.5-5.1 [facility] Comment on above: Performed By: #### L 500.4050, L100.0100 #### [facility] [address] [place], [address] Sodium [Moles/Vol] 138 mmol/L Normal 136-145 [facility] Comment on above: Performed By: #### L 500.4050, L100.0100 #### [facility] [address] [place], [address] T PROT 6.7 g/dL Normal 6.4-8.2 [facility] Comment on above: Performed By: #### L 500.4050, L100.0100 #### [facility] [address] [place], [address] Urea nitrogen [Mass/Vol] 21 mg/dL High 7-18 [facility] Comment on above: Performed By: #### L 500.4050, L100.0100 #### [facility] [address] [place], [address] Procalcitoninon 05-19-2024 Procalcitonin 0.15 ng/mL High 0.00-0.09 [facility] Comment on above: Result Comment: A procalcitonin (PCT) level above 2.0 ng/mL on the first day of ICU admission is associated with a high risk for progression to severe sepsis and/or septic shock. A PCT level below 0.5 ng/mL on the first day of ICU admission is associated with a low risk for progression to severe and/or septic shock. Note: Concentrations <0.5 ng/mL do not exclude an infection on account of localized infections (without systemic signs) which can be associated with such low concentrations, or a systemic infection in its initial stages (<6 hours). Furthermore, increased procalcitonin can occur without infection. PCT concentrations between 0.5 and 2.0 ng/mL should be interpreted taking into account the patient's history. It is recommended to retest PCT within 6-24 hours if any concentrations <2 ng/mL are obtained. Performed By: #### L 500.2500, L100.0100, L503.6620 #### [facility] [address] [place], [address] 12 Lead EKGon 05-18-2024 12 Lead EKG [facility] Cardi[facility] Services [address] [place] [address] 12 Lead EKG 05/18/242024 MR#: [id number] Acct: [id number] Name: JAVIER DEGROOT Rep #: [id number] : 1945 78 From: Christopher Rivera MD Attending Dr: Dr. Chema Fuentes MD Status: DIS IN Ordering Dr: Minnie Vargas DO Date: 05/18/24 Location: [facility] Sex: M C Admitted: 05/18/24 Test Reason : SOB Blood Pressure : / mmHG Vent. Rate : 117 BPM Atrial Rate : 000 BPM P-R Int : 000 ms QRS Dur : 090 ms QT Int : 288 ms P-R-T Axes : 000 024 009 degrees QTc Int : 401 ms Atrial fibrillation with rapid ventricular response with premature ventricular or aberrantly conducted complexes Nonspecific ST abnormality Abnormal ECG Confirmed by CHRISTOPHER RIVERA MD ([id number]), manager editorial DELGADO SIMEON ([id number]) on 05/22/2024 8:17:39 AM Referred By: Confirmed By:CHRISTOPHER RIVERA MD 05/22/24 0817 Date Christopher Rivera MD CC: Dr. Minnie Vargas DO; Dr. Chema Fuentes MD; Dr. Tomy Hernandez MD Signed Normal [facility] BNP,B-Type NATRIURETIC PEPTI John 05-18-2024 Natriuretic peptide B (Bld) [Mass/Vol] 232.2 pg/mL High 0-100 [facility] Comment on above: Performed By: #### L 500.2500, L100.0100, L503.6620 #### [facility] [address] [place], [address] Basic Metabolic Profile (BMP )on 05-18-2024 BUN/CRE 16.0 RATIO Normal 10-20 [facility] Comment on above: Performed By: #### L 500.2500, L100.0100, L503.6620 #### [facility] [address] [place], [address] CA,Total 9.5 mg/dL Normal 8.5-10.1 [facility] Comment on above: Performed By: #### L 500.2500, L100.0100, L503.6620 #### [facility] [address] [place], [address] Chloride [Moles/Vol] 103 mmol/L Normal 98-107 [facility] Comment on above: Performed By: #### L 500.2500, L100.0100, L503.6620 #### [facility] [address] [place], [address] CO2 [Moles/Vol] 26.0 mmol/L Normal 21.0-32.0 [facility] Comment on above: Performed By: #### L 500.2500, L100.0100, L503.6620 #### [facility] [address] [place], [address] Creatinine [Mass/Vol] 1.44 mg/dL High 0.70-1.30 [facility] Comment on above: Result Comment: The validity of the calculated GFR GFRAA in patients over 70 years has not been determined. Clinical correlation is essential. Performed By: #### L 500.2500, L100.0100, L503.6620 #### [facility] [address] [place], [address] ECRCL 50.52 ml/min Normal [facility] Comment on above: Performed By: #### L 500.2500, L100.0100, L503.6620 #### [facility] [address] [place], [address] EST GFR - AA 61 mL/min Normal >60 [facility] Comment on above: Result Comment: Afri can [place] GFR Calc Performed By: #### L 500.2500, L100.0100, L503.6620 #### [facility] [address] [place], [address] GAP 8 Normal 5-15 [facility] Comment on above: Performed By: #### L 500.2500, L100.0100, L503.6620 #### [facility] [address] [place], [address] GFR/1.73 sq M.predicted among non-blacks MDRD (S/P/Bld) [Vol rate/Area] 50 mL/min/{1.73_m2} Low >60 [facility] Comment on above: Result Comment: Non- GFR Calc Performed By: #### L 500.2500, L100.0100, L503.6620 #### [facility] [address] [place], [address] Glucose [Mass/Vol] 113 mg/dL High 74-106 [facility] Comment on above: Result Comment: Fast ing Glucose result from 100 to 125 mg/dL suggests IMPAIRED HOMEOSTASIS per A.D.A. criteria. Performed By: #### L 500.2500, L100.0100, L503.6620 #### [facility] [address] [place], [address] Potassium [Moles/Vol] 4.1 mmol/L Normal 3.5-5.1 [facility] Comment on above: Performed By: #### L 500.2500, L100.0100, L503.6620 #### [facility] [address] [place], [address] Sodium [Moles/Vol] 137 mmol/L Normal 136-145 [facility] Comment on above: Performed By: #### L 500.2500, L100.0100, L503.6620 #### [facility] [address] [place], [address] Urea nitrogen [Mass/Vol] 23 mg/dL High 7-18 [facility] Comment on above: Performed By: #### L 500.2500, L100.0100, L503.6620 #### [facility] [address] [place], [address] CPK Total, Creatine Kinaseon 05-18-2024 CPK TOTAL 183 U/L Normal 39-308 [facility] Comment on above: Order Comment: Comme nts: add to ED labs Comments: may add to ED labs Comments: May add to ED labs may add to ED labs Performed By: #### L 300.8000, L500.3400, L501.3620, L501.5200, L503.6620, L503.6550, L509.7000, L504.2610, L501.6710 #### [facility] [address] [place], [address] CRPon 05-18-2024 C-REACTIVE PROT 57.30 mg/L High 0.0-3.0 [facility] Comment on above: Order Comment: Comme nts: add to ED labsComments: may add to ED labsComments: May add to ED labsmay add to ED labs Result Comment: C-Re active Protein (CRP) provides useful information for the diagnosis, therapy and monitoring of inflammatory processes and associated diseases. For the evaluation of Relative Risk for Cardiovascular Disease, a High Sensitivity CRP (HSCRP) should be ordered. Performed By: #### L 500.2500, L100.0100, L503.6620 #### [facility] [address] [place], [address] Chest 1 View (Portable)on Chest 1 View (Portable) [facility] Imaging Services [address] [place] [address] Chest 1 View (Portable) MR#: [id number] Acct: [id number] Name: JAVIER DEGROOT Rep #: [id number] : 1945 M 78 From: Javier chaudhary MD PCP: Dr. Tomy Hernandez MD Status: PRE ER Study: Chest 1 View (Portable) Date of Exam: 05/18/24 Exam# [id number] Ordering Dr: [place] [id number] INDICATION: cough EXAMINATION/TECHNIQUE: X-RAY - XR Chest 1 View COMPARISON: 08/19/2023. FINDINGS: Increased interstitial markings. Tortuous and calcified thoracic aorta. The heart is mildly enlarged. No pleural effusion or pneumothorax. Degenerative changes of the thoracic spine. RAD/Chest 1 View (Portable) IMPRESSION: Increased interstitial markings may represent edema and/or infection. Electronically Signed: Javier Hatfield MD at 21:21 EDT , CC: Dr. Minnie Vargas DO; Dr. Tomy Hernandez MD Food Stand Manager: Signed Normal [facility] D-Dimer Quantitative (DVT/PE )on 05-18-2024 D-DIMER QUANT 0.53 FEU/ug/m Invalid Interpretation Code 0.27-0.49 [facility] Comment on above: Result Comment: D-Di tori ELEVATED (>0.49): Additional studies and clinical assessments are indicated to conclude diagnosis of: Deep Vein Thrombosis (DVT) or Pulmonary Embolism (PE) CRITICAL VALUE VERIFIED. CALLED TO [facility] 05/18/24 2302 Ann-Marie Rodriguez. RESULTS READ BACK BY SAME . Performed By: #### L 500.2500, L100.0100, L503.6620 #### [facility] [address] [place], [address] Emergency Department Summary on 05-18-2024 Emergency Department Summary [facility] Medical Records Department [address] [place] [address] Emergency Department Summary 05/18/24 MR#: [id number] Acct: [id number] Name: JAVIER DEGROOT Rep #: [id number] : 1945 78 From: Minnie Vargas DO PCP: Dr. Tomy Hernandez MD Status:REG ER Location: ED HPI History of Present Illness Chief Complaint: Shortness of Breath Informant: patient Narrative Narrative: Patient is a 78-year-old male presenting for generalized weakness, cough, shortness of breath and positive home COVID test. Patient started having symptoms yesterday. His had COVID a couple days before that. He lives at home with his . He had severe COVID in 2020 and was hospitalized for 7 weeks. He wears 2 L of oxygen at night only. States he does not do any breathing treatments at home. Daughters at the bedside said he had about a 6-hour episode today where he was just completely out of it. At that time his temperature was 100 ???F. No other complaints at this time. He is not complain of any chest pain, nausea, vomiting, abdominal pain or changes bowel movements. Is having associated rhinorrhea and nasal congestion. Has extensive medical history including prior TAVR, atrial fibrillation (on Eliquis), emphysema, obstructive sleep apnea, PE and hypertension. [facility] Medical History Carcamo phlebectatica paraplantaris Venous ulcer of left leg Venous stasis dermatitis Leg edema, left Left leg swelling Chronic venous insufficiency Obesity (BMI 30-39.9) History of pulmonary embolism History of TIA (transient ischemic attack) Alcohol use Dietary restriction TIA (transient ischemic attack) History of pain when walking History of stress test Emphysema with chronic bronchitis Prostate disease High cholesterol History of COVID-19 Wears hearing aid Wears glasses Wears dentures Arthritis Pulmonary embolism Former smoker On home oxygen therapy COPD (chronic obstructive pulmonary disease) History of edema History of CHF (congestive heart failure) History of atrial fibrillation History of echocardiogram Cardiology follow-up encounter History of transcatheter aortic valve replacement (TAVR) ( 07/10/21) History of left heart catheterization (LHC) ( 05/06/21) Atherosclerotic heart disease of [place] coronary artery without angina pectoris Dyspnea on exertion Non-rheumatic mitral valve stenosis COVID-19 ( 09/2020) Left-sided weakness Nonrheumatic aortic (valve) stenosis Nonrheumatic tricuspid (valve) insufficiency Other secondary pulmonary hypertension BPH (benign prostatic hyperplasia) Persistent atrial fibrillation Solitary pulmonary nodule NOAM (obstructive sleep apnea) Emphysema of lung Stage 1 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 Hyperlipidemia Hypertension Bilateral pulmonary embolism Atrial fibrillation Home Medications ???Medication ???Instructions ???Recorded ???Last Taken ???Type finasteride 5 mg tablet 5 mg PO DAILY prostate 09/24/15 09/01/23 History tamsulosin 0.4 mg capsule (Flomax) 0.8 mg PO QHS prostate 02/28/18 08/31/23 History Disability Placard #1 ea 01/01/21 Unknown Rx aspirin 81 mg capsule 81 mg PO DAILY 05/06/21 08/28/23 History inulin 2,500 mg-vitamin D3 500 2 tab PO DAILY 08/12/23 08/31/23 History unit chewable tablet (Fiber Gummies with Vitamin D3) polyethylene glycol 3350 17 17 g PO DAILY 08/12/23 08/31/23 History gram/dose oral powder (Miralax) atorvastatin 10 mg tablet 10 mg PO QDAY #90 tabs 08/27/23 08/31/23 Rx diltiazem HCl 120 mg tablet 120 mg PO BID 90 days #180 tabs 08/27/23 09/01/23 Rx metoprolol tartrate 75 mg tablet 75 mg PO BID #180 tabs 08/27/23 09/01/23 Rx oxycodone 5 mg tablet 5 - 10 mg (1 - 2 x 5 mg) PO Q4H 12/21/23 Unknown Rx PRN PRN Pain Score 4-10 5 days #42 tabs apixaban 5 mg tablet 5 mg PO BID blood thinner #180 tabs 11/29/23 Unknown Rx potassium chloride 20 mEq 30 meq PO DAILY 01/04/24 Unknown History tablet,extended release(part/cryst) (Klor-Con M) furosemide 40 mg tablet 40 mg PO DAILY fluid 05/09/24 Unknown History acetaminophen 500 mg tablet 1,300 mg PO DAILY PRN pain 05/18/24 Unknown History cholecalciferol (vitamin D3) 25 1,000 unit PO DAILY 05/18/24 Unknown History mcg (1,000 unit) capsule docusate sodium 250 mg capsule 250 mg PO BID 05/18/24 Unknown History Allergy/AdvReac Type Severity Reaction Status Date / Time lisinopril AdvReac Intermediate cough Verified 05/18/24 18:00 Family History Mother CVA (cerebral vascular accident) Diabetes Other Family history of CVA Surgical History History of left knee replacement History of heart surgery History of colonoscopy ( 2010 (more content not included)... Normal [facility] Ferritinon 05-18-2024 Ferritin [Mass/Vol] 233 ng/mL Normal 26-388 [facility] Comment on above: Order Comment: Comme nts: add to ED labsComments: may add to ED labsComments: May add to ED labsmay add to ED labs Performed By: #### L 500.2500, L100.0100, L503.6620 #### [facility] [address] [place], [address] H AND P Exam - Hospitaliston 05-18-2024 H&P Exam - Hospitalist [facility] Medical Records Department [address] [place] [place] [address] H P Exam - Hospitalist 05/18/246 MR#: [id number] Acct: [id number] Name: JAVIER DEGROOT Rep #: [id number] : 1945 78 From: Carmela Martinez MD PCP: Dr. Tomy Hernandez MD Status:REG ER Location: ED HPI - General General Date of Admission: 05/18/24 Date of Service: 05/18/24 Chief Complaint: Congestion, rhinorrhea, cough, dyspnea, with COVID, + home testing, confused. HPI Narrative The patient is a 78 y/o M w/ PMHx: CKD stage III per GFR trending unclear subtype, Venous stasis disease, Chronic BL LE Edema, Hx TIA, Hx VTE (DVT, PE), COPD with chronic hypoxic respiratory failure 2 L NC nightly, HTN, HLD, Former tobacco use, PAF, Valvular Heart Disease s/p TAVR, BPH, NOAM who presents to the [facility] ED on 05/18/24 with history of onset dyspnea, progressively worsening with onset of confusion as well as fever noted to be 100 at home starting the day prior with positive home COVID testing prompting family to bring him in for evaluation to be cautious. Patient also reported and family reported that his had COVID 2 to 3 days prior. Per family he has been having congestion and rhinorrhea, cough and dyspnea as well as generalized weakness. Patient family also reports that patient has had significant recent increased urinary frequency. Daughter who is present notes that they all went to a wedding over the weekend and everyone since then has had upper respiratory type symptoms with positive COVID testing. She herself is in the ED with obvious altered voice, congestion and rhinorrhea. Workup in the ED included T1 100.2 oral, heart rate 124, BP 172/59, respiratory rate 18, 94% on room air with most recent repeat vitals T1 100.1 temporally, heart rate 105, BP 159/73, respiratory rate 22, 93% on 2 L nasal cannula, CBC with WBC 13.1, hemoglobin 14.5, MCV 95.7, platelet 177 with left shift and lymphopenia, BMP with BUN/creatinine 23/1.44, GFR 50, glucose 113 EKG with A-fib with RVR with rate 117 with nonspecific T wave changes with no acute evidence of ischemia, chest x-ray with increased interstitial markings possibly infection versus edema, follow-up SARS COVID/influenza/RSV PCR with positive COVID testing. In the ED patient ministered maintenance IV fluids, Tylenol 650 mg p.o. x 1 and DuoNeb therapy. [facility] Medical History Carcamo phlebectatica paraplantaris Venous ulcer of left leg Venous stasis dermatitis Leg edema, left Left leg swelling Chronic venous insufficiency Obesity (BMI 30-39.9) History of pulmonary embolism History of TIA (transient ischemic attack) Alcohol use Dietary restriction TIA (transient ischemic attack) History of pain when walking History of stress test Emphysema with chronic bronchitis Prostate disease High cholesterol History of COVID-19 Wears hearing aid Wears glasses Wears dentures Arthritis Pulmonary embolism Former smoker On home oxygen therapy COPD (chronic obstructive pulmonary disease) History of edema History of CHF (congestive heart failure) History of atrial fibrillation History of echocardiogram Cardiology follow-up encounter History of transcatheter aortic valve replacement (TAVR) ( 07/10/21) History of left heart catheterization (LHC) ( 05/06/21) Atherosclerotic heart disease of [place] coronary artery without angina pectoris Dyspnea on exertion Non-rheumatic mitral valve stenosis COVID-19 ( 09/2020) Left-sided weakness Nonrheumatic aortic (valve) stenosis Nonrheumatic tricuspid (valve) insufficiency Other secondary pulmonary hypertension BPH (benign prostatic hyperplasia) Persistent atrial fibrillation Solitary pulmonary nodule NOAM (obstructive sleep apnea) Emphysema of lung Stage 1 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 Hyperlipidemia Hypertension Bilateral pulmonary embolism Atrial fibrillation Home Medications ???Medication ???Instructions ???Recorded ???Last Taken ???Type finasteride 5 mg tablet 5 mg PO DAILY prostate 09/24/15 09/01/23 History tamsulosin 0.4 mg capsule (Flomax) 0.8 mg PO QHS prostate 02/28/18 08/31/23 History Disability Placard #1 ea 01/01/21 Unknown Rx aspirin 81 mg capsule 81 mg PO DAILY 05/06/21 08/28/23 History inulin 2,500 mg-vitamin D3 500 2 tab PO DAILY 08/12/23 08/31/23 History unit chewable tablet (Fiber Gummies with Vitamin D3) polyethylene glycol 3350 17 17 g PO DAILY 08/12/23 08/31/23 History gram/dose oral powder (Miralax) atorvastatin 10 mg tablet 10 mg PO QDAY #90 tabs 08/27/23 08/31/23 Rx diltiazem HCl 120 mg tablet 120 mg PO BID 90 days #180 tabs 08/27/23 09/01/23 Rx metoprolol tartrate 75 mg tablet 75 mg PO BID #180 tabs 08/27/23 09/01/23 Rx oxycodone 5 mg tablet 5 - 10 mg (1 - 2 x 5 mg) PO Q4H 09/02/23 Unknown Rx PRN PRN Pain (more content not included)... Normal [facility] L501.4020on 05-18-2024 TROPONIN-I HS 22 pg/mL Normal 3.0-78.0 [facility] Comment on above: Order Comment: 'TROP ' Serial specimen #1, #2 or #3: 1 Result Comment: Zee pearl Note: New Test Units and Gender Specific Reference Ranges. For more information see Policy Stat Procedure Bailey High Sensitivity Troponin (TNIH) and attachments. Performed By: #### L 501.4020 #### [facility] [address] [place], [address] LDHon 05-18-2024 LDH 297 U/L High 87-241 [facility] Comment on above: Order Comment: Comme nts: add to ED labsComments: may add to ED labsComments: May add to ED labsmay add to ED labs Performed By: #### L 500.2500, L100.0100, L503.6620 #### [facility] [address] [place], [address] Lactic Acidon 05-18-2024 Lactate [Moles/Vol] 1.3 mmol/L Normal 0.4-1.9 [facility] Comment on above: Order Comment: Y Performed By: #### L 500.2500, L100.0100, L503.6620 #### [facility] [address] [place], [address] Liver Profileon 05-18-2024 Albumin [Mass/Vol] 3.8 g/dL Normal 3.2-5.0 [facility] Comment on above: Order Comment: Comme nts: add to ED labs Comments: may add to ED labs Comments: May add to ED labs may add to ED labs Performed By: #### L 300.8000, L500.3400, L501.3620, L501.5200, L503.6620, L503.6550, L509.7000, L504.2610, L501.6710 #### [facility] [address] [place], [address] ALK P 96 U/L Normal 45-117 [facility] Comment on above: Order Comment: Comme nts: add to ED labs Comments: may add to ED labs Comments: May add to ED labs may add to ED labs Performed By: #### L 300.8000, L500.3400, L501.3620, L501.5200, L503.6620, L503.6550, L509.7000, L504.2610, L501.6710 #### [facility] [address] [place], [place], [id number] ALT [Catalytic activity/Vol] 24 U/L Normal 16-61 [facility] Comment on above: Order Comment: Comme nts: add to ED labs Comments: may add to ED labs Comments: May add to ED labs may add to ED labs Performed By: #### L 300.8000, L500.3400, L501.3620, L501.5200, L503.6620, L503.6550, L509.7000, L504.2610, L501.6710 #### [facility] [address] [place], [place], [phone] [Catalytic activity/Vol] 22 U/L Normal 15-37 [facility] Comment on above: Order Comment: Comme nts: add to ED labs Comments: may add to ED labs Comments: May add to ED labs may add to ED labs Performed By: #### L 300.8000, L500.3400, L501.3620, L501.5200, L503.6620, L503.6550, L509.7000, L504.2610, L501.6710 #### [facility] [address] [place], [place], [id number] Bilirubin [Mass/Vol] 0.90 mg/dL Normal 0.20-1.00 [facility] Comment on above: Order Comment: Comme nts: add to ED labs Comments: may add to ED labs Comments: May add to ED labs may add to ED labs Result Comment: For patients on eltrombopag therapy, use of Dimension Bailey TBIL is not recommended. Performed By: #### L 300.8000, L500.3400, L501.3620, L501.5200, L503.6620, L503.6550, L509.7000, L504.2610, L501.6710 #### [facility] [address] [place], [place], [phone] Bilirubin.direct [Mass/Vol] 0.31 mg/dL High 0.00-0.30 [facility] Comment on above: Order Comment: Comme nts: add to ED labs Comments: may add to ED labs Comments: May add to ED labs may add to ED labs Performed By: #### L 300.8000, L500.3400, L501.3620, L501.5200, L503.6620, L503.6550, L509.7000, L504.2610, L501.6710 #### [facility] [address] [place], [place], [phone] Globulin (S) [Mass/Vol] 4.2 g/dL Normal 2.2-4.2 [facility] Comment on above: Order Comment: Comme nts: add to ED labs Comments: may add to ED labs Comments: May add to ED labs may add to ED labs Performed By: #### L 300.8000, L500.3400, L501.3620, L501.5200, L503.6620, L503.6550, L509.7000, L504.2610, L501.6710 #### [facility] [address] [place], [place], [phone] T PROT 8.0 g/dL Normal 6.4-8.2 [facility] Comment on above: Order Comment: Comme nts: add to ED labs Comments: may add to ED labs Comments: May add to ED labs may add to ED labs Performed By: #### L 300.8000, L500.3400, L501.3620, L501.5200, L503.6620, L503.6550, L509.7000, L504.2610, L501.6710 #### [facility] [address] [place], [address] M100.678on 05-18-2024 M100.678 Copy of report sent to Infection Control Printer [id number] 05/19/24 1458 JAXSON. Pending SARS-CoV-2 (COVID 19) A Positive A INFLUENZA A Negative INFLUENZA B Negative RSV PCR Negative SARS-CoV-2 (COVID 19 PCR) * This is an amended result. * A prior result that was reported as final has been changed. 05/19/248 by JAXSON Hernandez [facility] Comment on above: Performed By: #### L 500.2500, L100.0100, L503.6620 #### [facility] [address] [place], [address] Magnesiumon 05-18-2024 Magnesium [Mass/Vol] 2.3 mg/dL Normal 1.6-2.6 [facility] Comment on above: Order Comment: Comme nts: add to ED labsComments: may add to ED labsComments: May add to ED labsmay add to ED labs Performed By: #### L 500.2500, L100.0100, L503.6620 #### [facility] [address] [place], [address] Urinalysis, Completeon 05-18 BACTERIA 1+ /hpf Normal None Seen [facility] Comment on above: Order Comment: COLLE CTOR TO SPECIFY Performed By: #### L 500.2500, L100.0100, L503.6620 #### [facility] [address] [place], [address] RBC 0-5 SEEN Normal 0-5 [facility] Comment on above: Order Comment: COLLE CTOR TO SPECIFY Performed By: #### L 500.2500, L100.0100, L503.6620 #### [facility] [address] [place], [address] WBC 10-25 SEEN Normal 0-5 [facility] Comment on above: Order Comment: COLLE CTOR TO SPECIFY Performed By: #### L 500.2500, L100.0100, L503.6620 #### [facility] [address] [place], [address] EPI,SQUAMOUS 0 SEEN Normal 0-5 [facility] Comment on above: Order Comment: COLLE CTOR TO SPECIFY Performed By: #### L 500.2500, L100.0100, L503.6620 #### [facility] [address] [place], [address] Mucus Ql (Urine sed) 0 SEEN Normal [facility] Comment on above: Order Comment: COLLE CTOR TO SPECIFY Performed By: #### L 500.2500, L100.0100, L503.6620 #### [facility] [address] [place], [address] Basic Metabolic Profile (BMP )on 05-09-2024 BUN/CRE 15.0 RATIO Normal 10-20 [facility] Comment on above: Performed By: #### L 500.2500, L100.0100, L503.6620 #### [facility] [address] [place], [address] CA,Total 9.5 mg/dL Normal 8.5-10.1 [facility] Comment on above: Performed By: #### L 500.2500, L100.0100, L503.6620 #### [facility] [address] [place], [address] Chloride [Moles/Vol] 106 mmol/L Normal 98-107 [facility] Comment on above: Performed By: #### L 500.2500, L100.0100, L503.6620 #### [facility] [address] [place], [address] CO2 [Moles/Vol] 28.0 mmol/L Normal 21.0-32.0 [facility] Comment on above: Performed By: #### L 500.2500, L100.0100, L503.6620 #### [facility] [address] [place], [address] Creatinine [Mass/Vol] 1.40 mg/dL High 0.70-1.30 [facility] Comment on above: Result Comment: The validity of the calculated GFR GFRAA in patients over 70 years has not been determined. Clinical correlation is essential. Performed By: #### L 500.2500, L100.0100, L503.6620 #### [facility] [address] [place], [address] EST GFR - AA 63 mL/min Normal >60 [facility] Comment on above: Result Comment: Afri can Ecuadorean GFR Calc Performed By: #### L 500.2500, L100.0100, L503.6620 #### [facility] [address] [place], [address] GAP 7 Normal 5-15 [facility] Comment on above: Performed By: #### L 500.2500, L100.0100, L503.6620 #### [facility] [address] [place], [address] GFR/1.73 sq M.predicted among non-blacks MDRD (S/P/Bld) [Vol rate/Area] 52 mL/min/{1.73_m2} Low >60 [facility] Comment on above: Result Comment: Non- GFR Calc Performed By: #### L 500.2500, L100.0100, L503.6620 #### [facility] [address] [place], [address] Glucose [Mass/Vol] 128 mg/dL High 74-106 [facility] Comment on above: Result Comment: Fast ing Glucose result greater than or equal to 126 mg/dL suggests DIABETES MELLITUS per A.D.A. criteria. Performed By: #### L 500.2500, L100.0100, L503.6620 #### [facility] [address] [place], [address] Potassium [Moles/Vol] 4.6 mmol/L Normal 3.5-5.1 [facility] Comment on above: Performed By: #### L 500.2500, L100.0100, L503.6620 #### [facility] [address] [place], [address] Sodium [Moles/Vol] 141 mmol/L Normal 136-145 [facility] Comment on above: Performed By: #### L 500.2500, L100.0100, L503.6620 #### [facility] [address] [place], [address] Urea nitrogen [Mass/Vol] 21 mg/dL High 7-18 [facility] Comment on above: Performed By: #### L 500.2500, L100.0100, L503.6620 #### [facility] [address] [place], [address] BNP,B-Type NATRIURETIC PEPTI John 05-02-2024 Natriuretic peptide B (Bld) [Mass/Vol] 200.6 pg/mL High 0-100 [facility] Comment on above: Performed By: #### L 500.2500, L100.0100, L503.6620 #### [facility] [address] [place], [address] Basic Metabolic Profile (BMP )on 05-02-2024 BUN/CRE 14.4 RATIO Normal 10-20 [facility] Comment on above: Performed By: #### L 500.2500, L100.0100, L503.6620 #### [facility] [address] [place], [address] CA,Total 9.7 mg/dL Normal 8.5-10.1 [facility] Comment on above: Performed By: #### L 500.2500, L100.0100, L503.6620 #### [facility] [address] [place], [address] Chloride [Moles/Vol] 105 mmol/L Normal 98-107 [facility] Comment on above: Performed By: #### L 500.2500, L100.0100, L503.6620 #### [facility] [address] [place], [address] CO2 [Moles/Vol] 29.0 mmol/L Normal 21.0-32.0 [facility] Comment on above: Performed By: #### L 500.2500, L100.0100, L503.6620 #### [facility] [address] [place], [address] Creatinine [Mass/Vol] 1.18 mg/dL Normal 0.70-1.30 [facility] Comment on above: Result Comment: The validity of the calculated GFR GFRAA in patients over 70 years has not been determined. Clinical correlation is essential. Performed By: #### L 500.2500, L100.0100, L503.6620 #### [facility] [address] [place], [address] EST GFR - AA 76 mL/min Normal >60 [facility] Comment on above: Result Comment: Afri can Ecuadorean GFR Calc Performed By: #### L 500.2500, L100.0100, L503.6620 #### [facility] [address] [place], [address] GAP 4 Low 5-15 [facility] Comment on above: Performed By: #### L 500.2500, L100.0100, L503.6620 #### [facility] [address] [place], [address] GFR/1.73 sq M.predicted among non-blacks MDRD (S/P/Bld) [Vol rate/Area] 63 mL/min/{1.73_m2} Normal >60 [facility] Comment on above: Result Comment: Non- GFR Calc Performed By: #### L 500.2500, L100.0100, L503.6620 #### [facility] [address] [place], [address] Glucose [Mass/Vol] 98 mg/dL Normal 74-106 [facility] Comment on above: Performed By: #### L 500.2500, L100.0100, L503.6620 #### [facility] [address] [place], [address] Potassium [Moles/Vol] 4.2 mmol/L Normal 3.5-5.1 [facility] Comment on above: Performed By: #### L 500.2500, L100.0100, L503.6620 #### [facility] [address] [place], [address] Sodium [Moles/Vol] 138 mmol/L Normal 136-145 [facility] Comment on above: Performed By: #### L 500.2500, L100.0100, L503.6620 #### [facility] [address] [place], [address] Urea nitrogen [Mass/Vol] 17 mg/dL Normal 7-18 [facility] Comment on above: Performed By: #### L 500.2500, L100.0100, L503.6620 #### [facility] [address] [place], [address] CBC W/Diff, Automatedon 08-2 0-4 Absolute Lymph 1.16 X10 3/uL Normal 0.83-4.51 [facility] Comment on above: Performed By: #### L 500.2500, L100.0100, L503.6620 #### [facility] [address] [place], [address] Absolute Neut 7.4 X10 3/uL Normal 2.0-7.7 [facility] Comment on above: Performed By: #### L 500.2500, L100.0100, L503.6620 #### [facility] [address] [place], [address] Basophils/100 WBC (Bld) 0.8 % Normal 0-1 [facility] Comment on above: Performed By: #### L 500.2500, L100.0100, L503.6620 #### [facility] [address] [place], [address] Eosinophils/100 WBC (Bld) 1.5 % Normal 0-5 [facility] Comment on above: Performed By: #### L 500.2500, L100.0100, L503.6620 #### [facility] [address] [place], [address] Erythrocyte distribution width (RBC) [Ratio] 13.1 % Normal 11.6-14.6 [facility] Comment on above: Performed By: #### L 500.2500, L100.0100, L503.6620 #### [facility] [address] [place], [address] Hematocrit (Bld) [Volume fraction] 44.2 % Normal 40-54 [facility] Comment on above: Performed By: #### L 500.2500, L100.0100, L503.6620 #### [facility] [address] [place], [address] Hemoglobin (Bld) [Mass/Vol] 14.3 g/dL Normal 13.0-16.5 [facility] Comment on above: Performed By: #### L 500.2500, L100.0100, L503.6620 #### [facility] [address] [place], [address] IG% 0.800 Normal 0.0-0.9 [facility] Comment on above: Result Comment: IG% - Immature Granulocytes (promyelocytes, myelocytes and metamyelocytes) > 1% indicates that a LEFT SHIFT is Present. Performed By: #### L 500.2500, L100.0100, L503.6620 #### [facility] [address] [place], [address] Lymphocytes/100 WBC (Bld) 11.8 % Low 19-41 [facility] Comment on above: Performed By: #### L 500.2500, L100.0100, [id number] #### [facility] [address] [place], [address] MCH (RBC) [Entitic mass] 31.4 pg Normal 27.0-32.0 [facility] Comment on above: Performed By: #### L 500.2500, L100.0100, L503.6620 #### [facility] [address] [place], [address] MCHC (RBC) [Mass/Vol] 32.4 g/dL Normal 32-36 [facility] Comment on above: Performed By: #### L 500.2500, L100.0100, L503.6620 #### [facility] [address] [place], [address] MCV (RBC) [Entitic vol] 97.1 fL High 80-94 [facility] Comment on above: Performed By: #### L 500.2500, L100.0100, [id number] #### [facility] [address] [place], [address] Monocytes/100 WBC (Bld) 10.0 % Normal 0-10 [facility] Comment on above: Performed By: #### L 500.2500, L100.0100, [id number] #### [facility] [address] [place], [address] Neutrophils/100 WBC (Bld) 75.1 % High 47-70 [facility] Comment on above: Performed By: #### L 500.2500, L100.0100, L503.6620 #### [facility] [address] [place], [address] Nucleated RBC (Bld) [#/Vol] 0 10*3/uL Normal 0-5 [facility] Comment on above: Performed By: #### L 500.2500, L100.0100, L503.6620 #### [facility] [address] [place], [address] Platelet mean volume (Bld) [Entitic vol] 9.9 fL Normal 6.2-12.0 [facility] Comment on above: Performed By: #### L 500.2500, L100.0100, L503.6620 #### [facility] [address] [place], [address] Platelets (Bld) [#/Vol] 223 10*3/uL Normal 150-450 [facility] Comment on above: Performed By: #### L 500.2500, L100.0100, L503.6620 #### [facility] [address] [place], [address] RBC (Bld) [#/Vol] 4.55 10*6/uL Low 4.6-6.2 [facility] Comment on above: Performed By: #### L 500.2500, L100.0100, L503.6620 #### [facility] [address] [place], [address] RDW SD 46.2 fl High 35.1-43.9 [facility] Comment on above: Performed By: #### L 500.2500, L100.0100, [id number] #### [facility] [address] [place], [address] WBC (Bld) [#/Vol] 9.8 10*3/uL Normal 4.4-11.0 [facility] Comment on above: Performed By: #### L 500.2500, L100.0100, L503.6620 #### [facility] [address] [place], [address] Cardiology Visit Reporton Cardiology Visit Report [facility] [address] [place] [address] OFFICE VISIT Date of Service: 05/02/24 MR#: [id number] Acct: [id number] Name: JAVIER DEGROOT Rep #: [id number] : 1945 Provider: LIV quiñonez Age/Sex: 78/M Location[place] [facility] Status: Signed [facility] History of Present Illness Details: This is a 78-year-old white male who presents to the office today for a cardiovascular follow-up visit. 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 He is now status post an annual post TAVR visit at [facility] in their [facility] office. This occurred on 06-30-2022. At that time he had a transthoracic echocardiogram performed. Per the report the left ventricle was normal with an LVEF of 60%., The left atrium was severely dilated, the TAVR valve was stable with a report of a peak gradient of 24 mmHg, mean gradient of 30 mmHg, dimensionless valve index of 0.36, and trace AI. There was a comment that the visualized aorta was borderline dilated with a maximal dimension of 3.8 cm. From a cardiac standpoint, the patient is doing well. He denies any palpitations, chest pain, pressure or heaviness. He does acknowledge SOB with exertion, and at rest. He denies Orthopnea, and PND. He does wear oxygen at night. He does not have bleeding issues; no blood in urine, stool or nosebleeds. He does acknowledge a slight decrease in energy level. He denies myalgias, or claudication. He does not have edema, or sudden weight gain. He does wear compression stockings. He denies dizziness, lightheadedness, syncopal or near syncopal episodes, and headaches. He states his blood pressure at home today was 134/65. Intake Vital Signs 02/23/24 07:54 05/02/24 14:41 Height 5 ft 7 in 5 ft 7 in Weight: 245 lb BMI 38.3 BP 157/70 H Blood Pressure Location Lt brachial Position Sitting Respiration 20 H Pulse 90 Pulse Source Monitor Pulse Oximetry (%) 92 Intake Visit Reasons: 14 M FU (MOVED FROM 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: No Is patient in pain?: No Allergies lisinopril Adverse Reaction (Intermediate, Verified 05/02/24 14:56) cough Medications ???Medication ???Instructions ???Recorded ???Confirmed ???Type finasteride 5 mg tablet 5 mg PO DAILY prostate 09/24/15 05/02/24 History tamsulosin 0.4 mg capsule (Flomax) 0.8 mg PO QHS prostate 02/28/18 05/02/24 History Disability Placard #1 ea 01/01/21 05/02/24 Rx aspirin 81 mg capsule 81 mg PO DAILY 05/06/21 05/02/24 History inulin 2,500 mg-vitamin D3 500 2 tab PO DAILY 08/12/23 05/02/24 History unit chewable tablet (Fiber Gummies with Vitamin D3) polyethylene glycol 3350 17 17 g PO DAILY 08/12/23 05/02/24 History gram/dose oral powder (Miralax) atorvastatin 10 mg tablet 10 mg PO QDAY #90 tabs 08/27/23 05/02/24 Rx diltiazem HCl 120 mg tablet 120 mg PO BID 90 days #180 tabs 08/27/23 05/02/24 Rx metoprolol tartrate 75 mg tablet 75 mg PO BID #180 tabs 08/27/23 05/02/24 Rx acetaminophen 500 mg tablet 1,000 mg (2 x 500 mg) PO TID 14 09/02/23 05/02/24 Rx days #84 tabs oxycodone 5 mg tablet 5 - 10 mg (1 - 2 x 5 mg) PO Q4H 09/02/23 05/02/24 Rx PRN PRN Pain Score 4-10 5 days #42 tabs apixaban 5 mg tablet 5 mg PO BID blood thinner #180 tabs 11/29/23 05/02/24 Rx furosemide 40 mg tablet 80 mg PO DAILY fluid 01/04/24 05/02/24 History potassium chloride 20 mEq 40 meq PO DAILY 01/04/24 05/02/24 History tablet,extended release(part/cryst) (Klor-Con M) Have you fallen in the past year?: No [facility] Medical History Carcamo phlebectatica paraplantaris Venous ulcer of left leg Venous stasis dermatitis Leg edema, left Left leg swelling Chronic venous insufficiency Obesity (BMI 30-39.9) History of pulmonary embolism History of TIA (transient ischemic attack) Alcohol use Dietary restriction TIA (transient ischemic attack) History of pain when walking History of stress test Emphysema with chronic bronchitis Prostate disease High cholesterol History of COVID-19 Wears hearing aid Wears glasses Wears dentures Arthritis Pulmonary embolism Former smoker On home oxygen therapy COPD (chronic obstructive pulmonary disease) History of edema History of CHF (congestive heart failure) History of atrial fibrillation History of echocardiogram Cardiology follow-up encounter History of transcatheter aortic valve replacement (TAVR) ( 07/10/21) History of le (more content not included)... [facility] 02-23-2024 [facility] Telephone (INTMWS) JAVIER DEGROOT Mari ([id number]) 1945 M Date Time Provider Department 02/23/24 TOMY HERNANDEZ INTMWS During your visit today, we recorded the following information about you: Janeth Hong LPN 02/23/2024 12:13 PM Signed Patients requested that we fax last OV note to the [place]. Fax #; [phone], Team 11, Tamar Louis NP. Faxed as requested. Allergies As of Date: 02/23/2024 Noted Allergy Reaction LISINOPRIL 10/15/2014 3 - Cough Date Reviewed: 11/04/2023 Reviewed by: Anabella Steve LPN - Fully Assessed Reason for Visit: FYI-No Action Needed [265] Prescriptions as of 02/23/2024 - polyethylene glycol 3350 (MIRALAX) 17 gram/dose powder Take by mouth once daily. Dissolve dose in 4 - 8 ounces of liquid and take as directed. - Cholecalciferol, Vitamin D3, (VITAMIN D) 25 mcg (1,000 unit) cap Take 1,000 Units by mouth once daily. - tamsulosin (FLOMAX) 0.4 mg Take 2 capsules by mouth daily at bedtime. - finasteride (PROSCAR) 5 mg tablet Take 1 tablet by mouth once daily. - metoprolol tartrate [...] [facility] decreased to once daily. - apixaban (ELIQUIS) 5 mg tab tab(s) Take 1 tablet by mouth twice daily. Problem List As Of Date 02/23/2024 Noted Resolved Elevated prostate specific antigen (PSA) [...] [E66.9] 04/13/2019 Positive colorectal cancer screening using [place]*05/02/2020 03/22/2023 Aortic valve stenosis [I35.0] 11/26/2020 Nocturnal hypoxia [G47.34] 11/26/2020 Venous insufficiency of both lower extremities *04/28/2021 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 Obesity (BMI 35.0-39.9 without comorbidity) [E6*07/17/2021 Dependence on continuous supplemental oxygen [Z*08/22/2021 09/16/2021 Impaired fasting glucose [R73.01] 03/18/2022 Secondary pulmonary arterial hypertension (HCC)*03/18/2022 Stage 3a chronic kidney disease (HCC) [N18.31] 03/18/2022 NOAM (obstructive sleep apnea) cannot tolerate C*03/22/2023 Tremor of left hand [R25.1] 08/16/2023 Encounter Status:Closed by JANETH HONG on 02/23/24 Normal [facility] CNOVon 11-04-2023 CNOV Office Visit (INTMWS ) JAVIER DEGROOT ([id number]) 1945 M Date Time Provider Department 11/04/23 1:40 PM TOMY HERNANDEZ INTMWS During your visit today, we recorded the following information about you: Temperature Pulse Respiration Blood pressure 98.2 degrees 88/minute 20/minute 138/75 Weight 109.2 kg Tomy Hernandez MD 11/04/2023 2:19 PM Signed This note was created using LumiGrowriter. Subjective Javier Degroot is a 78 year old male. He had skin breakdown and cellulitis of the left leg 3 weeks ago. He completed extended antibiotic course for left leg cellulitis. Redness and edema resolved, but wound was not healing. Review of Systems Constitutional: Negative for chills and fever. Respiratory: Negative for shortness of breath. Cardiovascular: Negative for chest pain, palpitations and leg swelling. Gastrointestinal: Negative. ACTIVE PROBLEM LIST Adenomatous Polyp of Colon [...] NOAM (obstructive sleep apnea) cannot tolerate CPAP Tremor of Left Hand Current Outpatient Medications Medication Sig polyethylene glycol 3350 (MIRALAX) 17 gram/dose powder Take by mouth once daily. Dissolve dose in 4 - 8 ounces of liquid and take as directed. Cholecalciferol, Vitamin D3, (VITAMIN D) 25 mcg (1,000 unit) cap Take 1,000 Units by mouth once daily. tamsulosin (FLOMAX) 0.4 mg Take 2 capsules by mouth daily at bedtime. finasteride (PROSCAR) 5 mg tablet Take 1 tablet by mouth once daily. metoprolol tartrate 75 [...] facility-administered medications for this visit. Objective BP 138/75 (BP Site: Left Arm, BP Position: Sitting, BP Cuff Size: Large Adult) Pulse 88 Temp 36.8 ?C (98.2 ?F) (Temporal) Resp 20 Wt 109.2 kg (240 lb 12.8 oz) BMI 39.76 kg/m? Physical Exam Constitutional: General: He is not in acute distress. Appearance: He is not ill-appearing. Pulmonary: Effort: Pulmonary effort is normal. Musculoskeletal: Right lower le+ Pitting Edema present. Left lower le+ Pitting Edema present. Skin: Findings: No erythema. Comments: Left lower leg with moist denuded areas, no infection. Neurological: Mental Status: He is alert. Assessment and Plan 1. Stasis ulcer of lower extremity, left (HCC) - ICD9: 454.0, ICD10: I83.029, L97.929 (primary diagnosis) Non healing. Refer to [facility]. - CONSULT TO NON-[facility] FACILITY 2. Primary hypertension - ICD9: 401.9, ICD10: I10 Fair. No change for now. Tomy Hernandez MD Allergies As of Date: 11/04/2023 Noted Allergy Reaction LISINOPRIL 10/15/2014 3 - Cough Date Reviewed: 11/04/2023 Reviewed by: Anabella Steve LPN - Fully Assessed Reason for Visit: Follow Up [171] Primary Visit Diagnosis:Stasis ulcer of lower extremity, left (HCC) [I83.029, L97.929] Other Visit Diagnosis:Primary hypertension [I10] Order(s):CONSULT TO NON-[facility] FACILITY [[id number]] Order #: [id number] Prescriptions as of 11/04/2023 - polyethylene glycol 3350 (MIRALAX) 17 gram/dose powder Take by mouth once daily. Dissolve dose in 4 - 8 ounces of liquid and take as directed. - Cholecalciferol, Vitamin D3, (VITAMIN D) 25 mcg (1,000 unit) cap Take 1,000 Units by mouth once daily. - tamsulosin (FLOMAX) 0.4 mg Take 2 capsules by mouth daily at bedtime. - finasteride (PROSCAR) 5 mg tablet Take 1 tablet by mouth once daily. - metoprolol tartrate 75 mg tab Take 1 tablet by mouth twice daily. - potassium chloride ER (KLOR-CON) 20 mEq tablet Take 1 tablet by mouth once daily. - atorvastatin (LIPITOR) 10 mg tablet Take 10 mg by mouth once daily. - acetaminophen (TYLENOL ARTHRITIS PAIN ORAL) Take 1,300 mg by mouth as needed. - dilTIAZem (CARDIZEM) 120 mg ta (more content not included)... Normal [facility] 10-26-2023 [facility] Telephone (FAMPWS) JAVIER DEGROOT ([id number]) 1945 M Date Time Provider Department 10/26/23 TOMY HERNANDEZ FAMPWS During your visit today, we recorded the following information about you: Ilana Chamberlain LPN 10/26/2023 9:57 AM Signed Pt was seen in the office 10/18/23 for cellulitis left lower extremity. Pt's Sarah reports the area looks good, fairly improved. However pt now has 2 new blisters, one a little bigger than the size of a nickel AND a smaller one < the size of a dime. Pt finished cephalexin yesterday AND is still taking lasix 40mg bid AND klor-con. Otherwise Sarah says pt feels good. Pt uses [facility] in [place]. Please advise. DEMARCO Berg Victor H, MD 10/26/2023 1:11 PM Signed Patient's request for medication is as follows Requested Prescriptions Signed Prescriptions Disp Refills cephALEXin (KEFLEX) 500 mg capsule 9 capsule 0 Sig: Take 1 capsule by mouth three times a day for 3 days. Authorizing Provider: TOMY HERNANDEZ Order entered - please phone pharmacy and notify patient. MD Azael Izaguirre Ma, Toni 10/26/2023 2:06 PM Signed Patients notified, verbalized understanding. Allergies As of Date: 10/26/2023 Noted Allergy Reaction LISINOPRIL 10/15/2014 3 - Cough Date Reviewed: 10/18/2023 Reviewed by: Anabella Steve LPN - Fully Assessed Reason for Visit: Patient Update [1234] Cmt: New blisters Visit Diagnosis:Cellulitis of left lower extremity [L03.116] Order(s):cephALEXin (KEFLEX) 500 mg capsuleTake 1 capsule by mouth three times a day for 3 days.Disp: 9 capsuleRfl: 0 Prescriptions as of 10/26/2023 - cephALEXin (KEFLEX) 500 mg capsule Take 1 capsule by mouth three times a day for 3 days. - tamsulosin (FLOMAX) 0.4 mg Take 2 capsules by mouth daily at bedtime. - finasteride (PROSCAR) 5 mg tablet Take 1 tablet by mouth once daily. - metoprolol tartrate [...] 40 mg by mouth once daily. Per [facility] decreased to once daily. - apixaban (ELIQUIS) 5 mg tab tab(s) Take 1 tablet by mouth twice daily. Problem List As Of Date 10/26/2023 Noted Resolved Elevated prostate specific antigen (PSA) [...] [E66.9] 04/13/2019 Positive colorectal cancer screening using [place]*05/02/2020 03/22/2023 Aortic valve stenosis [I35.0] 11/26/2020 Nocturnal hypoxia [G47.34] 11/26/2020 Venous insufficiency of both lower extremities *04/28/2021 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 Obesity (BMI 35.0-39.9 without comorbidity) [E6*07/17/2021 Dependence on continuous supplemental oxygen [Z*08/22/2021 09/16/2021 Impaired fasting glucose [R73.01] 03/18/2022 Secondary pulmonary arterial hypertension (HCC)*03/18/2022 Stage 3a chronic kidney disease (HCC) [N18.31] 03/18/2022 NOAM (obstructive sleep apnea) cannot tolerate C*03/22/2023 Tremor of left hand [R25.1] 08/16/2023 Prescriptions ordered this encounter Disp Refills Start End CEPHALEXIN 500 MG CAPSULE 9 ca* 0 10/26/2023 10/29/2023 Route: ORAL Sig: Take 1 capsule by mouth three times a day for 3 days. Medications Discontinued During This Encounter Prescriptions - cephALEXin (KEFLEX) 500 mg capsule (Discontinued) Take 1 capsule by zaire (more content not included)... Normal [facility] CNOVon 10-18-2023 CNOV Office Visit (INTMWS ) JAVIER DEGROOT ([id number]) 1945 M Date Time Provider Department 10/18/23 2:20 PM TOMY HERNANDEZ INTMWS During your visit today, we recorded the following information about you: Temperature Pulse Respiration Blood pressure 98.5 degrees 80/minute 20/minute 146/80 Weight 107.5 kg Tomy Hernandez MD 10/18/2023 3:29 PM Signed This note was created using LumiGrowriter. Subjective Javier Degroot is a 78 year old male here with . His left leg edema worsened recently, and he started with some skin breakdown and seepage last week. Dr. Lamb saw him for post operative follow up and recommended close observation. This weekend, skin breakdown, seepage, and redness increased. We instructed him to double his lasix which he started Wednesday. Review of Systems Constitutional: Negative for chills and fever. Respiratory: Negative for cough and shortness of breath. Cardiovascular: Negative for chest pain. Genitourinary: Negative for difficulty urinating. ACTIVE PROBLEM LIST Adenomatous Polyp of Colon [...] NOAM (obstructive sleep apnea) cannot tolerate CPAP Tremor of Left Hand Current Outpatient Medications Medication Sig tamsulosin (FLOMAX) 0.4 mg Take 2 capsules by mouth daily at bedtime. finasteride (PROSCAR) 5 mg tablet Take 1 tablet by mouth once daily. metoprolol tartrate 75 [...] Take 1 tablet by mouth twice daily. GUAIFENESIN ORAL Take 400 mg by mouth once daily. (Patient not taking: Reported on 10/18/2023) No current facility-administered medications for this visit. Objective BP 146/80 (BP Site: Left Arm, BP Position: Sitting, BP Cuff Size: Large Adult) Pulse 80 Temp 36.9 ?C (98.5 ?F) (Temporal) Resp 20 Wt 107.5 kg (237 lb) BMI 39.14 kg/m? Physical Exam Constitutional: General: He is not in acute distress. Cardiovascular: Rate and Rhythm: Normal rate and regular rhythm. Occasional Extrasystoles are present. Pulmonary: Effort: No respiratory distress. Breath sounds: No wheezing or rales. Musculoskeletal: Left knee: No swelling or erythema. No tenderness. Right lower le+ Pitting Edema present. Left lower le+ Pitting Edema present. Comments: Incision well healed. Skin: Findings: Erythema present. Comments: Serpiginous skin breakdown with moisture, no edilberto drainage, surrounding erythema ~1 x 2 inches. No lymphangitis. Neurological: Mental Status: He is alert. Assessment and Plan 1. Cellulitis of left lower extremity - ICD9: 682.6, ICD10: L03.116 (primary diagnosis) - Begin treatment with Cephalaxin (Keflex) - CEPHALEXIN 500 MG CAPSULE 2. Stasis ulcer of lower extremity, left (HCC) - ICD9: 454.0, ICD10: I83.029, L97.929 Self wound care. Edema control. Continue furosemide 40 mg BID x one week. His foreign correspondent also advised BID potassium with BID lasix 3. Stage 3a chronic kidney disease (HCC) - ICD9: 585.3, ICD10: N18.31 - eGFR: 61 Stable - COMP METABOLIC PANEL 4. Hyperlipidemia, unspecified hyperlipidemia type - ICD9: 272.4, ICD10: E78.5 - Controlled - Continue current medications - Counseled on healthy diet and regular exercise - LIPID PANEL BASIC 5. Impaired fasting glucose - ICD9: 790.21, ICD10: R73.01 - HGB A1C Return sooner if needed. Tomy Hernandez MD Allergies As of Date: 10/18/2023 Noted Allergy Reaction LISINOPRIL 10/15/2014 3 - Cough Date Reviewed: 10/18/2023 Reviewed by: Anabella Steve LPN - Fully Assessed Reason for Visit: Follow Up [171] Primary Visit Diagnosis:Cellulitis of left lower extremity [L03.116] Other Visit Diagnoses:Stasis ulcer of lower extremity, left (HCC) [I83.029, L97.929] Stage 3a chronic kidney disease (HCC) [N18.31] Hyperlipid (more content not included)... Normal [facility] CNPNon 10-16-2023 CNPN Telephone (INTMWS) JAVIER DEGROOT ([id number]) 1945 M Date Time Provider Department 10/16/23 TOMY HERNANDEZ INTWS During your visit today, we recorded the following information about you: Yessenia Coffey RN 10/16/2023 10:59 AM Signed Spouse (Sarah) calls to update provider on left leg and requests antibiotic. Sarah reports that patient has swelling and redness to left lower leg with an area that is seeping clear drainage. No warmth or fever. Sarah reports that the incision for the knee replacement is healed. Patient has history of cellulitis. Reports first noted the seeping area on Wednesday and it has been worsening since. Nurse triage would recommend see provider in 4 hours no appointments available. Spouse declines EC in-person assessment for proper evaluation. Sarah would prefer provider be notified to see if will send antibiotic to [facility] or if this could wait for an appointment beginning of week. MARYCRUZ Gavin Victor H, MD 10/16/2023 11:18 AM Signed Sounds like edema is the issue and not cellulitis. Double up lasix to 40 mg twice daily. Go to ER if worse, fever, or purulence. Appointment next week. Miles Addison Ma 10/16/2023 11:44 AM Signed Patient's sarah notified and verbalized understanding. Office visit scheduled for Wednesday. Allergies As of Date: 10/16/2023 Noted Allergy Reaction LISINOPRIL 10/15/2014 3 - Cough Date Reviewed: 08/16/2023 Reviewed by: Anabella Steve LPN - Fully Assessed Reason for Visit: Patient Question [3240] Prescriptions as of 10/18/2023 - tamsulosin (FLOMAX) 0.4 mg Take 2 capsules by mouth daily at bedtime. - finasteride (PROSCAR) 5 mg tablet Take 1 tablet by mouth once daily. - GUAIFENESIN ORAL Take 400 mg by [...] [facility] decreased to once daily. - apixaban (ELIQUIS) 5 mg tab tab(s) Take 1 tablet by mouth twice daily. Problem List As Of Date 10/16/2023 Noted Resolved Elevated prostate specific antigen (PSA) [...] [E66.9] 04/13/2019 Positive colorectal cancer screening using [place]*05/02/2020 03/22/2023 Aortic valve stenosis [I35.0] 11/26/2020 Nocturnal hypoxia [G47.34] 11/26/2020 Venous insufficiency of both lower extremities *04/28/2021 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 Obesity (BMI 35.0-39.9 without comorbidity) [E6*07/17/2021 Dependence on continuous supplemental oxygen [Z*08/22/2021 09/16/2021 Impaired fasting glucose [R73.01] 03/18/2022 Secondary pulmonary arterial hypertension (HCC)*03/18/2022 Stage 3a chronic kidney disease (HCC) [N18.31] 03/18/2022 NOAM (obstructive sleep apnea) cannot tolerate C*03/22/2023 Tremor of left hand [R25.1] 08/16/2023 Encounter Status:Closed by YESSENIA COFFEY on 10/18/23 Normal [facility] Venegas Basophil percentageOrdered B y: Jarod Lamb on 09-02-2023 Chloride [Moles/Vol] 109 mmol/L 98-107 [facility] Glucose [Mass/Vol] 129 mg/dL 74-106 [facility] Comment on above: Fasting Glucose resu lt greater than or equal to 126 mg/dL suggests DIABETES MELLITUS per A.D.A. criteria. Potassium [Moles/Vol] 4.8 mmol/L 3.5-5.1 [facility] Sodium [Moles/Vol] 141 mmol/L 136-145 [facility] WBC (Bld) [#/Vol] 14.2 10*3/uL 4.4-11.0 [facility] Blood erythrocytes count (nu mber/volume)Ordered By: Jarod Lamb on 09-02-2023 RBC (Bld) [#/Vol] 3.67 10*6/uL 4.6-6.2 [facility] Blood hemoglobin measurement (mass/volume)Ordered By: Jarod Lamb on 09-02-2023 Hemoglobin (Bld) [Mass/Vol] 11.6 g/dL 13.0-16.5 [facility] Blood platelet mean volumeOr dered By: Jarod Lamb on 09-02-2023 Platelet mean volume (Bld) [Entitic vol] 9.7 fL 6.2-12.0 [facility] Determination of erythrocyte mean corpuscular volume (MCV)Ordered By: Jarod Lamb on 09-02-2023 MCV (RBC) [Entitic vol] 100.0 fL 80-94 [facility] Hematocrit Auto (Bld) [Volum e fraction]Ordered By: Jarod Lamb on 09-02-2023 Hematocrit (Bld) [Volume fraction] 36.7 % 40-54 [facility] Laboratory - Chemistry and C hemistry - challengeOrdered By: Jarod Lamb on 09-02-2023 CO2 [Moles/Vol] 26.0 mmol/L 21.0-32.0 [facility] Urea nitrogen/Creatinine [Mass ratio] 17.9 mg/mg 10-20 [facility] Laboratory - Hematology and Cell countsOrdered By: Jarod Lamb on 09-02-2023 Erythrocyte distribution width (RBC) [Entitic vol] 48.7 fL 35.1-43.9 [facility] Erythrocyte distribution width (RBC) [Ratio] 13.2 % 11.6-14.6 [facility] MCH (RBC) [Entitic mass] 31.6 pg 27.0-32.0 [facility] MCHC Auto (RBC) [Mass/Vol]Or dered By: Jarod Lamb on 09-02-2023 MCHC (RBC) [Mass/Vol] 31.6 g/dL 32-36 [facility] No Panel InformationOrdered By: Jarod Lamb on 09-02-2023 Estimated Creatinine Clearance Calc 50.00 ml/min [facility] Estimated GFR (MDRD) Amer 81 mL/min >60 [facility] Comment on above: GFR Calc Estimated GFR (MDRD) Non-Af Amer 67 mL/min >60 [facility] Comment on above: Non- GFR Calc Platelets bldOrdered By: Torres Lamb on 09-02-2023 Platelets (Bld) [#/Vol] 171 10*3/uL 150-450 [facility] Serum or plasma calcium sammy urement (mass/volume)Ordered By: Jarod Lamb on 09-02-2023 Calcium [Mass/Vol] 9.1 mg/dL 8.5-10.1 [facility] Serum or plasma creatinine m easurement (mass/volume)Ordered By: Jarod Lamb on 09-02-2023 Creatinine [Mass/Vol] 1.12 mg/dL 0.70-1.30 [facility] Comment on above: The validity of the calculated GFR & GFRAA in patients over 70 years has not been determined. Clinical correlation is essential. Serum or plasma urea nitroge n measurement (mass/volume)Ordered By: Jarod Lamb on 09-02-2023 Urea nitrogen [Mass/Vol] 20 mg/dL 7-18 [facility] Thin prep Papanicolaou smear with manual screeningOrdered By: Jarod Lamb on 09-02-2023 Thin prep Papanicolaou smear with manual screening 6 5-15 [facility] Glucose Glucometer (BldC) [M ass/Vol]Ordered By: Jarod Lamb on 09-01-2023 Glucose [Mass/Vol] 120 mg/dL 74-106 [facility] Comment on above: MANAGEMENT OF PATIEN T CARE PER NURSING PROTOCOL Absolute lymphocyte countOrd ered By: Jarod Lamb on 08-19-2023 Lymphocytes Auto (Unsp spec) [#/Vol] 2.06 10*3/uL 0.83-4.51 [facility] Basophil percentageOrdered B y: Jarod Lamb on 08-19-2023 Basophils/100 WBC (Bld) 1.1 % 0-1 [facility] Eosinophils/100 WBC (Bld) 1.9 % 0-5 [facility] Neutrophils (Bld) [#/Vol] 6.9 10*3/uL 2.0-7.7 [facility] Neutrophils/100 WBC (Bld) 66.3 % 47-70 [facility] Blood lymphocytes/100 leukoc ytesOrdered By: Jarod Lamb on 08-19-2023 Lymphocytes/100 WBC (Bld) 19.8 % 19-41 [facility] Blood monocytes/100 leukocyt esOrdered By: Jarod Lamb on 08-19-2023 Monocytes/100 WBC (Bld) 10.1 % 0-10 [facility] Laboratory - Chemistry and C hemistry - challengeOrdered By: Taran Tarango on 08-19-2023 Magnesium [Mass/Vol] 2.3 mg/dL 1.6-2.6 [facility] Laboratory - Hematology and Cell countsOrdered By: Jarod Lamb on 08-19-2023 Immature granulocytes/100 WBC (Bld) 0.800 % 0.0-0.9 [facility] Comment on above: IG% - Immature Granu locytes (promyelocytes, myelocytes and metamyelocytes) > 1% indicates that a LEFT SHIFT is Present. Nucleated RBC/100 WBC (Bld) [Ratio] 0 % 0-5 [facility] No Panel InformationOrdered By: Jarod Lamb on 08-19-2023 Nasal Screen MRSA/MSSA [facility] Nasal Screen MRSA/MSSA [facility] Serum or plasma albumin sammy urement (mass/volume)Ordered By: Jarod Lamb on 08-19-2023 Albumin [Mass/Vol] 4.0 g/dL 3.2-5.0 [facility] CNOVon 08-16-2023 CNOV Office Visit (INTMWS ) JAVIER DEGROOT ([id number]) 1945 M Date Time Provider Department 08/16/23 1:00 PM TOMY HERNANDEZ INTMWS During your visit today, we recorded the following information about you: Pulse Respiration Blood pressure Weight 76/minute 20/minute 136/68 108 kg Tomy Hernandez MD 08/16/2023 5:50 PM Signed This note was created using LumiGrowriter. Subjective Patient presents with: Pre-Op Exam Consultation [...] and valvular heart disease was stable. 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 Per [facility] decreased to once daily. apixaban [...] heard. Systolic murmur is present with a grad (more content not included)... Normal [facility] Laboratory - Microbiology an d Antimicrobial susceptibilityon 02-03-2023 SARS-CoV-2 (COVID-19) RNA CHIP+probe Ql (Unsp spec) Not detected [facility] Basophil percentageon 2021 Chloride [Moles/Vol] 107 mmol/L 98-107 [facility] Work Phone: Glucose [Mass/Vol] 129 mg/dL 74-106 [facility] Work Phone: Comment on above: Fasting Glucose resu lt greater than or equal to 126 mg/dL suggests DIABETES MELLITUS per A.D.A. criteria. Potassium [Moles/Vol] 4.1 mmol/L 3.5-5.1 [facility] Work Phone: Sodium [Moles/Vol] 139 mmol/L 136-145 [facility] Work Phone: Laboratory - Chemistry and C hemistry - challengeon 07-16-2022 CO2 [Moles/Vol] 27.0 mmol/L 21.0-32.0 [facility] Work Phone: Urea nitrogen/Creatinine [Mass ratio] 17.9 mg/mg 10-20 [facility] Work Phone: No Panel Informationon 07-16 Estimated GFR (MDRD) Amer 66 mL/min >60 [facility] Work Phone: Comment on above: GFR Calc Estimated GFR (MDRD) Non-Af Amer 55 mL/min >60 [facility] Work Phone: Comment on above: Non- GFR Calc Serum or plasma calcium sammy urement (mass/volume)on 07-16-2022 Calcium [Mass/Vol] 9.5 mg/dL 8.5-10.1 [facility] Work Phone: Serum or plasma creatinine m easurement (mass/volume)on 07-16-2022 Creatinine [Mass/Vol] 1.34 mg/dL 0.70-1.30 [facility] Work Phone: Comment on above: The validity of the calculated GFR & GFRAA in patients over 70 years has not been determined. Clinical correlation is essential. Serum or plasma urea nitroge n measurement (mass/volume)on 07-16-2022 Urea nitrogen [Mass/Vol] 24 mg/dL 7-18 [facility] Work Phone: Thin prep Papanicolaou smear with manual screeningon 07-16-2022 Thin prep Papanicolaou smear with manual screening 5 5-15 [facility] Work Phone: Basophil percentageon 2021 Chloride [Moles/Vol] 107 mmol/L 98-107 [facility] Work Phone: [phone] Glucose [Mass/Vol] 125 mg/dL 74-106 [facility] Work Phone: Comment on above: Fasting Glucose resu lt from 100 to 125 mg/dL suggests IMPAIRED HOMEOSTASIS per A.D.A. criteria. Potassium [Moles/Vol] 4.4 mmol/L 3.5-5.1 [facility] Work Phone: Sodium [Moles/Vol] 140 mmol/L 136-145 [facility] Work Phone: CNOVon 06-30-2022 CNOV Office Visit (AGCARDPOB) JAVIER DEGROOT ([id number]) 1945 M Date Time Provider Department 06/30/22 1:30 PM TAMIKA DUTTA During your visit today, we recorded the following information about you: Pulse Blood pressure Weight 77/minute 130/70 109.3 kg Venita Crow MA 06/30/2022 1:31 PM Signed CARDIAC REHAB 5 METER WALK TEST SERVICE DATE: 06/30/2022 SERVICE TIME: 118 pm ASSESSMENT: 5 secs 5 secs 4 secs SIGNATURE: Venita Crow MA PATIENT NAME: Javier Degroot DATE: June 30, 2022 TIME: 1:19 PM PAGER/CONTACT #: [phone] Venita Crow MA 06/30/2022 1:31 PM Signed No cardiac complaints today. LUCY Solo APRN.ASSOCIATE PROFESSOR OF HISTORY 06/30/2022 3:19 PM Signed INTERVENTIONAL CARDIOLOGY SERVICE 1 Year Post-TAVR Follow-Up PRIMARY CARE PHYSICIAN: Tomy Hernandez [address] [phone] Chief Complaint Patient presents with: F/U 6 [...] Former Quit date: 06/24/2012 Substance Use Topics Alco (more content not included)... Normal [facility] Laboratory - Chemistry and C hemistry - challengeon 06-30-2022 CO2 [Moles/Vol] 25.0 mmol/L 21.0-32.0 [facility] Work Phone: Urea nitrogen/Creatinine [Mass ratio] 16.7 mg/mg 07-02 [facility] Work Phone: No Panel Informationon 06-30 Estimated GFR (MDRD) Amer 64 mL/min >60 [facility] Work Phone: Comment on above: GFR Calc Estimated GFR (MDRD) Non-Af Amer 53 mL/min >60 [facility] Work Phone: Comment on above: Non- GFR Calc Serum or plasma calcium sammy urement (mass/volume)on 06-30-2022 Calcium [Mass/Vol] 9.6 mg/dL 8.5-10.1 [facility] Work Phone: Serum or plasma creatinine m easurement (mass/volume)on 06-30-2022 Creatinine [Mass/Vol] 1.38 mg/dL 0.70-1.30 [facility] Work Phone: Comment on above: The validity of the calculated GFR & GFRAA in patients over 70 years has not been determined. Clinical correlation is essential. Serum or plasma urea nitroge n measurement (mass/volume)on 06-30-2022 Urea nitrogen [Mass/Vol] 23 mg/dL 03-30 [facility] Work Phone: Thin prep Papanicolaou smear with manual screeningon 06-30-2022 Thin prep Papanicolaou smear with manual screening 8 01-25 [facility] Work Phone: HEMOGLOBIN A1C (POC)on 03-18 HbA1c (Bld) [Mass fraction] 5.4 % 4.2 - 5.6 % [facility] CNOVon 12-30-2021 CNOV Office Visit (AGCSIVAPOB) JAVIER DEGROOT ([id number]) 1945 M Date Time Provider Department 12/30/21 2:00 PM TAMIKA DUTTA During your visit today, we recorded the following information about you: Pulse Respiration Blood pressure Weight 78/minute 18/minute 138/64 101.6 kg Height 1.689 m Teena Sarah MA 12/30/2021 1:54 PM Signed Patient denies any cardiac issues or symptoms. 5 METER WALK 1. 4.31 SECONDS 2. 4.56 3. 4.48 Tamika Dutta APRN.[place] 12/30/2021 3:30 PM Signed INTERVENTIONAL CARDIOLOGY SERVICE 6 Month Post-TAVR Follow-Up PRIMARY CARE PHYSICIAN: Tomy Hernandez [address] [place] [address] Chief Complaint Patient presents with: CARD Follow [...] Medication Sig Dispense Refill - acetaminophen (TYLENOL ARTHR (more content not included)... Normal [facility] AUGUSTONon 12-30-2021 [place] Telephone (AGCARDPOB ) JAVIER DEGROOT ([id number]) 1945 M Date Time Provider Department 12/30/21 TAMIKA DUTTA During your visit today, we recorded the following information about you: Tamika Dutta APRN.ASSOCIATE PROFESSOR OF HISTORY 12/30/2021 3:19 PM Signed Please schedule patient for 1 year post op TAVR Echo and follow up in appt with myself around 07/10/22. Thank you, Tamika Dutta APRN.ASSOCIATE PROFESSOR OF HISTORY Allergies As of Date: 12/30/2021 Noted Allergy Reaction LISINOPRIL 10/15/2014 3 - Cough Date Reviewed: 12/30/2021 Reviewed by: Teena Sarah MA - Fully Assessed Reason for Visit: Appointment [186] Prescriptions as of 01/13/2022 - acetaminophen (TYLENOL ARTHRITIS PAIN ORAL) Take [...] mouth twice daily. - potassium chloride ER (KLOR-CON M20) 20 mEq tablet Take 20 mEq by mouth twice daily. - Docusate Sodium 250 mg capsule Take 250 mg by mouth twice daily. - furosemide (LASIX) 40 mg tablet Take 40 mg by mouth twice daily. - apixaban (ELIQUIS) 5 mg tab tab(s) Take 1 tablet by mouth twice daily. Facility-Administered Medications as of 01/13/2022 - perflutren lipid microspheres 1.3 mL in NaCl (PF) 0.9% 10 mL injection (DEFINITY) - sodium chloride 0.9 % (flush) 10 mL (BD POSIFLUSH) - sodium chloride 0.9 % (flush) 10 mL (BD POSIFLUSH) - sodium chloride 0.9 % (flush) 10 mL (BD POSIFLUSH) Problem List As Of Date 12/30/2021 Noted Resolved Elevated prostate specific antigen (PSA) [...] [E66.9] 04/13/2019 Positive colorectal cancer screening using [place]*05/02/2020 Aortic valve stenosis [I35.0] 11/26/2020 Nocturnal hypoxia [G47.34] 11/26/2020 Venous stasis ulcer of calf without varicose ve*04/28/2021 09/16/2021 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 Obesity (BMI 35.0-39.9 without comorbidity) [E6*07/17/2021 Dependence on continuous supplemental oxygen [Z*08/22/2021 09/16/2021 Encounter Status:Closed by TAMIKA DUTTA on 01/13/22 [facility] CNOVon 08-26-2021 CNOV Office Visit (AGCARDPOB) JAVIER DEGROOT ([id number]) 1945 M Date Time Provider Department 08/26/21 2:00 PM TAMIKA DUTTA During your visit today, we recorded the following information about you: Pulse Blood pressure Weight Height 101/minute 118/72 108.9 kg 1.727 m Nany Naranjo MA 08/26/2021 2:07 PM Signed No cardiac concerns today but PT does report hes on an antibiotic for leg swelling and inflammation Tamika Dutta, CHLORINATOR OPERATOR.ASSOCIATE PROFESSOR OF HISTORY 08/26/2021 3:59 PM Signed INTERVENTIONAL CARDIOLOGY SERVICE 1 Month Post-TAVR Follow-Up PRIMARY CARE PHYSICIAN: Tomy Hernandez [address] [place] [address] Chief Complaint Patient presents with: CARD Follow [...] He plans to start Cardiac Rehab in [place]. He has a follow up appointment with [...] Chronic atrial fibrillation (HCC) 10/04/2015 Dr. Jeff Bwoie[facility] - COVID-19 10/03/2020 - Elevated [...] once daily. 30 tablet 2 - tamsulosin (FLOMAX (more content not included)... [facility] Joey 08-06-2021 [place] Telephone (AGCARDPOB ) JAVIER [id number]) 1945 M Date Time Provider Department 08/06/21 TAMIKA DUTTA During your visit today, we recorded the following information about you: Diana Beasley RN 08/06/2021 9:23 AM Signed ----- Message from Tamika Dutta APRN.ASSOCIATE PROFESSOR OF HISTORY sent at 08/06/2021 9:21 AM EST ----- Please call the patient and report lab results revealed stable BMP and CBC. Tamika Dutta APRN.ASSOCIATE PROFESSOR OF HISTORY Diana Beasley RN 08/06/2021 9:24 AM Signed Spoke with patient, notified of Tamika's Luzmaria's message. Patient voiced understanding. Diana Beasley RN Allergies As of Date: 08/06/2021 Noted Allergy Reaction LISINOPRIL 10/15/2014 3 - Cough Date Reviewed: 07/17/2021 Reviewed by: Tamika Dutta APRN.ASSOCIATE PROFESSOR OF HISTORY - Fully Assessed Reason for Visit: Results [95] Prescriptions as of 08/06/2021 - dilTIAZem (CARDIZEM) 120 mg tablet Take [...] mouth twice daily. - potassium chloride ER (KLOR-CON M20) 20 mEq tablet Take 20 mEq by mouth twice daily. - Docusate Sodium 250 mg capsule Take 250 mg by mouth twice daily. - furosemide (LASIX) 40 mg tablet Take 40 mg by mouth twice daily. - apixaban (ELIQUIS) 5 mg tab tab(s) Take 1 tablet by mouth twice daily. Facility-Administered Medications as of 08/06/2021 - perflutren lipid microspheres 1.3 mL in NaCl (PF) 0.9% 10 mL injection (DEFINITY) - sodium chloride 0.9 % (flush) 10 mL (BD POSIFLUSH) - sodium chloride 0.9 % (flush) 10 mL (BD POSIFLUSH) Problem List As Of Date 08/06/2021 Noted Resolved ELEVATED PROSTATE SPECIFIC ANTIGEN [R97.20] OVERWEIGHT [E66.9] 05/28/2005 04/08/2015 Unspecified disorder of prostate [N42.9] 05/28/2005 04/13/2016 Personal history of tobacco use, presenting haz*08/26/2005 04/13/2016 Other and unspecified hyperlipidemia [E78.5] 02/24/2006 04/13/2016 ERECTILE DYSFUNCTION [F52.9] 09/09/2006 04/13/2016 Benign neoplasm of colon [D12.6] 06/16/2011 Encounter for preprocedural cardiovascular exam*06/16/2011 BPH (benign prostatic hyperplasia) [N40.0] 09/30/2011 Irregular [...] [E66.9] 04/13/2019 Positive colorectal cancer screening using [place]*05/02/2020 Aortic valve stenosis [I35.0] 11/26/2020 Acute on chronic respiratory failure with hypox*11/26/2020 Venous stasis ulcer of calf without varicose ve*04/28/2021 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 Obesity, Class I, BMI 30-34.9 [E66.9] 07/17/2021 Encounter Status:Closed by DIANA BEASLEY on 08/06/21 [facility] CNOVon 07-17-2021 CNOV Office Visit (AGCARDPOB) JAVIER DEGROOT ([id number]) 1945 M Date Time Provider Department 07/17/21 1:00 PM TAMIKA DUTTA AGCARDPORoxanne During your visit today, we recorded the following information about you: Pulse Blood pressure Weight Height 90/minute 120/70 104.3 kg 1.727 m Venita Crow MA 07/17/2021 1:07 PM Signed CARDIAC REHAB 5 METER WALK TEST SERVICE DATE: 07/17/2021 SERVICE TIME: 1255pm ASSESSMENT: 1.5 secs 2. 5 secs 3. 6 secs SIGNATURE: Venita Crow MA PATIENT NAME: Javier Degroot DATE: July 17, 2021 TIME: 12:58 PM PAGER/CONTACT #: [phone] Tamika Dutta APRN.CNP 07/17/2021 2:12 PM Signed INTERVENTIONAL CARDIOLOGY SERVICE 1 Week Post-TAVR Follow-Up PRIMARY CARE PHYSICIAN: Tomy Hernandez [address] [place] [address] Chief Complaint Patient presents with: Cardiology Follow [...] daily. - aspirin 81 mg chewable tablet Ta (more content not included)... Normal [facility] ALLIED HEALTHon 07-11-2021 ALLIED HEALTH HNO ID: [id number] Author: RT Марина(R) Service: Radiology Author Type: Technologist Type: Allied Health Filed: 07/11/2021 5:30 AM Note Text: Radiology Service Progress Note PATIENT NAME: Javier Degroot DATE OF SERVICE: July 11, 2021 TIME: 5:30 AM PATIENT IDENTITY VERIFICATION COMPLETED USING TWO (2) IDENTIFIERS: Name and Date of confirmed by identification band. FALL SCREENING: Has the patient had 2 falls in the last year or 1 fall with injury or currently using an Ambulatory Assistive Device (Walker, Cane, Wheelchair, Crutches, etc.)? Inpatient: Screened on floor PATIENT GENDER DATA: Male PATIENT RELEVANT IMPLANT DATA REVIEWED: Not Applicable RADIOLOGY DEPARTMENT: General X-ray: Exam(s) Completed: Chest X-Ray PERIPHERAL IV DATA: Not applicable SIGNED BY: Miles Adan RT(R) July 11, 2021 5:30 AM Normal [facility] ANES POSTPROC EVALon 021 ANES POSTPROC EVAL HNO ID: [id number] Author: Arturo Magana MD Service: Anesthesiology Author Type: Physician Type: Anesthesia Postprocedure Evaluation Filed: 07/11/2021 7:04 AM Note Text: POST ANESTHESIA EVALUATION NOTE : 1945 Procedure Summary Date: 07/10/21 [place] Anesthesia Start: 1156 Anesthesia Stop: 1540 Procedure: TRANSCATHETER AORTIC VALVE REPLACEMENT (TAVR/ROSETTE) W/ 26 mm PROSTHETIC VALVE OPEN FEMORAL ARTERY APPROACH (Bilateral Cardiac) Diagnosis: Aortic valve stenosis, etiology of cardiac valve disease unspecified Surgeons: Remington Haji MD Responsible Provider: Arturo Magana MD Anesthesia Type: MAC ASA Status: 4 Anesthesia Type: MAC Last vitals Vitals Value Taken Time BP 135/99 07/11/21 0700 Temp 36.1 ?C (97 ?F) 07/10/21 1900 Pulse 74 07/11/21 0703 Resp 23 07/11/21 0703 SpO2 97 % 07/11/21 0703 Vitals shown include unvalidated device data. Post Anesthesia Patient Status Patient Evaluation: PACU. PACU/ICU Patient Condition: stable. Anticipated Disposition: ICU planned admission. Neurological Status: aware and responsive. Pulmonary Status: breathing comfortably on room air Airway Control: returned to baseline unsupported. Cardiovascular Status: stable. Pain Management: clinically adequate Postoperative Hydration: acceptable. Intraoperative Events: no significant anesthesia events Post Operative Nausea/Vomiting Status: no significant post operative nausea or vomiting Anesthetic Observations: Recommendation: continue current plan of care and further care per PACU/ICU/floor team. Anesthesia Observations No Documentation SIGNATURE: Arturo Magana MD PATIENT NAME: Javier Degroot DATE: July 11, 2021 TIME: 7:04 AM CSN: [id number] Normal [facility] Basic metabolic 2000 panelon 07-11-2021 Anion gap [Moles/Vol] 7 mmol/L Low 9-18 [facility] Comment on above: Order Comment: Speci men Type: BLOOD SPECIMEN Performed By: #### 2 4321-2 #### [facility] CLIA [id number] [address] Calcium [Mass/Vol] 9.4 mg/dL Normal 8.5-10.2 [facility] Comment on above: Order Comment: Speci men Type: BLOOD SPECIMEN Performed By: #### 2 4321-2 #### [facility] CLIA [id number] [address] Chloride [Moles/Vol] 109 mmol/L High 97-105 [facility] Comment on above: Order Comment: Speci men Type: BLOOD SPECIMEN Performed By: #### 2 4321-2 #### [facility] CLIA [id number] [address] CO2 [Moles/Vol] 25 mmol/L Normal 22-30 [facility] Comment on above: Order Comment: Speci men Type: BLOOD SPECIMEN Performed By: #### 2 4321-2 #### [facility] CLIA [id number] [address] Creatinine [Mass/Vol] 0.97 mg/dL Normal 0.73-1.22 [facility] Comment on above: Order Comment: Speci men Type: BLOOD SPECIMEN Performed By: #### 2 4321-2 #### [facility] CLIA [id number] [address] [place] GFR/1.73 sq M.predicted MDRD (S/P/Bld) [Vol rate/Area] mL/min/{1.73_m2} Normal [facility] Comment on above: Order Comment: Speci men Type: BLOOD SPECIMEN Result Comment: >60 eGFR (Estimated GFR) Units of measure: mL/min/1.73 [...] accurately reflect actual GFR. Performed By: #### 2 4321-2 #### [facility] CLIA [id number] [address] [place] [address] [place] Glucose [Mass/Vol] 104 mg/dL High 74-99 [facility] Comment on above: Order Comment: Speci men Type: BLOOD SPECIMEN Result Comment: The [place] [employer] (ADA) provides guidance for cutoff values for fasting glucose and random glucose. The ADA defines fasting as no caloric intake for at least 8 hours. Fasting plasma glucose results between 100 to 125 [...] Standards of Medical Care in Diabetes 2016, [place] [employer]. Diabetes Care. 2016.39(Suppl 1). Performed By: #### 2 4321-2 #### [facility] CLIA [id number] [address] [place] Potassium [Moles/Vol] 4.6 mmol/L Normal 3.7-5.1 [facility] Comment on above: Order Comment: Speci men Type: BLOOD SPECIMEN Performed By: #### 2 4321-2 #### [facility] CLIA [id number] [address] [place] Sodium [Moles/Vol] 141 mmol/L Normal 136-144 [facility] Comment on above: Order Comment: Speci men Type: BLOOD SPECIMEN Performed By: #### 2 4321-2 #### [facility] CLIA [id number] [address] [place] Urea nitrogen [Mass/Vol] 20 mg/dL Normal 9-24 [facility] Comment on above: Order Comment: Speci men Type: BLOOD SPECIMEN Performed By: #### 2 4321-2 #### [facility] CLIA [id number] [address] CASE MANAGEMon 07-11-2021 CASE MANAGEM HNO ID: [id number] Author: Amber Degroot RN Service: ? Author Type: Registered Nurse Type: Care Mgt Progress Note Filed: 07/11/2021 10:49 AM Note Text: CARE MANAGEMENT PROGRESS NOTE SERVICE DATE: 07/11/2021 SERVICE TIME: 10:48 AM LOS: 1 day This patient has been screened for Care Management Transitional Planning Services. At this time, it does not appear this patient will require transition planning services. Should this change, and the patient require transition planning services during this admission, please call [phone]. Amber Degroot RN July 11, 2021 10:48 AM SIGNATURE: Amber Degroot RN PATIENT NAME: Javier Degroot DATE: July 11, 2021 TIME: 10:48 AM PAGER/CONTACT #: [phone] Normal [facility] CBC panel Auto (Bld)on 07-11 Erythrocyte distribution width (RBC) [Ratio] 14.8 % Normal 11.5-15.0 [facility] Comment on above: Order Comment: Speci men Type: BLOOD SPECIMEN Performed By: #### 5 8410-2 #### [facility] CLIA [id number] [address] Hematocrit (Bld) [Volume fraction] 42.1 % Normal 39.0-51.0 [facility] Comment on above: Order Comment: Speci men Type: BLOOD SPECIMEN Performed By: #### 5 8410-2 #### [facility] CLIA [id number] [address] OF [facility] Hemoglobin (Bld) [Mass/Vol] 13.0 g/dL Normal 13.0-17.0 [facility] Comment on above: Order Comment: Speci men Type: BLOOD SPECIMEN Performed By: #### 5 8410-2 #### [facility] CLIA [id number] [address] MCH (RBC) [Entitic mass] 29.7 pg Normal 26.0-34.0 [facility] Comment on above: Order Comment: Speci men Type: BLOOD SPECIMEN Performed By: #### 5 8410-2 #### [facility] CLIA [id number] [address] MCHC (RBC) [Mass/Vol] 30.9 g/dL Normal 30.5-36.0 [facility] Comment on above: Order Comment: Speci men Type: BLOOD SPECIMEN Performed By: #### 5 8410-2 #### [facility] CLIA [id number] [address] MCV (RBC) [Entitic vol] 96.1 fL Normal 80.0-100.0 [facility] Comment on above: Order Comment: Speci men Type: BLOOD SPECIMEN Performed By: #### 5 8410-2 #### [facility] CLIA [id number] [address] Nucleated RBC (Bld) [#/Vol] 10*3/uL Normal <0.01 [facility] Comment on above: Order Comment: Speci men Type: BLOOD SPECIMEN Performed By: #### 5 8410-2 #### [facility] CLIA [id number] [address] Platelet mean volume (Bld) [Entitic vol] 9.6 fL Normal 9.0-12.7 [facility] Comment on above: Order Comment: Speci men Type: BLOOD SPECIMEN Performed By: #### 5 8410-2 #### [facility] CLIA [id number] [address] Platelets (Bld) [#/Vol] 173 10*3/uL Normal 150-400 [facility] Comment on above: Order Comment: Speci men Type: BLOOD SPECIMEN Performed By: #### 5 8410-2 #### [facility] CLIA [id number] [address] RBC (Bld) [#/Vol] 4.38 10*6/uL Normal 4.20-6.00 [facility] Comment on above: Order Comment: Speci men Type: BLOOD SPECIMEN Performed By: #### 5 8410-2 #### [facility] CLIA [id number] [address] WBC (Bld) [#/Vol] 11.83 10*3/uL High 3.70-11.00 [facility] Comment on above: Order Comment: Speci men Type: BLOOD SPECIMEN Performed By: #### 5 8410-2 #### [facility] CLIA [id number] [address] CNDSon 07-11-2021 CNDS HNO ID: [id number] Author: Eldon Mayer MD Service: Cardiovascular Medicine Author Type: Resident Type: Discharge Summary Filed: 07/11/2021 11:27 AM Note Text: Attestation signed by Remington Haji MD at 07/12/2021 2:04 PM Attending Note I evaluated the patient and personally participated in the diaz components. I agree with the resident's findings and plan as documented and have discussed the case and management of the patient's care with the resident. Signature: Remington Haji MD Date: 07/12/2021 Time: 2:04 PM DISCHARGE SUMMARY PATIENT NAME: Javier Degroot ADMISSION DATE: 07/10/2021 DISCHARGE DATE: 07/11/2021 ATTENDING PHYSICIAN: Remington Haji MD Code Status: Full Code Highest Readmission Risk Score: 11 The 30 day readmissions risk score is derived from an internally validated risk model which evaluates patient level characteristics, utilization history, medication orders and lab results up until the day of discharge. Patients with a score of 40 or above are considered highest risk for readmission. Specific patient level drivers will be listed at the bottom of the summary. REASON FOR HOSPITALIZATION: Elective Transcatheter Aortic Valve Replacement DIAGNOSIS: Severe Aortic Stenosis s/p TAVR OPERATIONS DURING HOSPITALIZATION: Transcatheter Aortic Valve Replacement PROCEDURES DURING HOSPITALIZATION: Echocardiogram and EKG HOSPITAL COURSE: Mr. Javier Degroot is a 75-year-old male with PMH of: - Cardiac: CAD, Chronic Atrial Fibrillation on Eliquis, Hypertension, Hyperlipidemia, Aortic Valve Stenosis - Pulmonary: Pulmonary HTN, NOAM, COPD - Prior TIA in 2019 - Prior Tobacco Use - Prior DVT/PE - Recent COVID-19 Infection in 09/2020 requiring 2L Home O2 ? Patient presented to [facility] on 07/10 for elective transcatheter aortic valve replacement with Dr. Haji. Patient was admitted to the CVICU post-operatively for continued management and observation.?While in the CVICU, patient received ECHOcardiograms that evidenced good aortic valve replacement. On 07/11, patient was deemed stable for discharge home with follow-up in one week with Cardiology. LABS AND PROCEDURES PENDING AT DISCHARGE: No pending results. CONSULTING TEAMS DURING HOSPITALIZATION: Interventional Cardiology PATIENT CONDITION AT DISCHARGE: Medically Stable DISCHARGE DISPOSITION: Home PHYSICAL EXAM: - Reviewed and Updated on 07/11/2021 at 10:22am Constitutional: Hemodynamically stable and in no acute distress. Patient was sitting in bedside chair, talking on phone when seen. HENT: Normocephalic and atraumatic. PERRL with EOM intact. No scleral icterus noted. Oropharynx clear and moist. Neck: Neck supple. No JVD present. Cardiovascular: Regular rate and rhythm with a systolic murmur auscultated. Pulmonary/Chest: Clear to auscultation bilaterally with no wheezes or rhonchi. Saturating >90% on 2L NC. Abdominal: Soft, non-tender and non-distended with normal bowel sounds auscultated. Musculoskeletal: Normal EOM with no peripheral edema noted. Neurological: Alert and oriented to person, place, and time. Skin: Skin is warm and dry. Chronic venous stasis ulcers on bilateral lower extremities. Capillary refill takes less than 2 seconds. ALLERGIES Allergen Reactions - Lisinopril Cough DISCHARGE MEDICATION: Current Discharge Medication List START taking these medications cephALEXin (KEFLEX) 500 mg Take 500 mg by mouth every 12 hours. Qty: 13 capsule Refills: 0 CONTINUE these medications which have CHANGED dilTIAZem (CARDIZEM) 120 mg Take 120 mg by mouth twice daily. aspirin 81 mg Take 81 mg by mouth once daily. Qty: 30 tablet Refills: 2 CONTINUE these medications which have NOT CHANGED ketoconazole (NIZORAL) 2 % cream Apply to affected area twice daily. Qty: 60 g Refills: 0 tamsulosin (FLOMAX) 0.8 mg Take 0.8 mg by mouth daily at bedtime. Qty: 180 capsule Refills: 3 Associated Diagnoses:Benign prostatic hyperplasia with lower urinary tract symptoms, symptom details unspecified finasteride (PROSCAR) 5 mg Take 5 mg by mouth once daily. Qty: 90 tablet Refills: 3 Associated Diagnoses:Benign prostatic hyperplasia with lower urinary tract symptoms, symptom details unspecified metoprolol tartrate (short acting) (LOPRESSOR) 75 mg Take 75 mg by mouth twice daily. Refills: 0 Associated Diagnoses:Chronic atrial fibrillation (HCC) potassium chloride ER (K-DUR, KLOR-CON) 20 mEq Take 20 mEq by mouth twice daily. Associated Diagnoses:Essential hypertension Docusate Sodium 250 mg Take 250 mg by mouth twice daily. furosemide (LASIX) 40 mg Take 40 mg by mouth twice daily. apixaban (ELIQUIS) 5 mg Take 5 mg by mouth twice daily. Refills: 0 Associated Diagnoses:Chronic atrial fibrillati (more content not included)... Normal [facility] NURSING PROGon 07-11-2021 NURSING PROG HNO ID: [id number] Author: Vidhya Whitmore RN Service: ? Author Type: Registered Nurse Type: Nursing Progress Note Filed: 07/11/2021 3:04 PM Note Text: Patient received discharge instructions, verbalized understanding ( at bedside for instructions). PIVs removed intact. All patient belongings returned to patient. Normal [facility] PT EDon 07-11-2021 PT ED HNO ID: [id number] Author: Adelita Osorio DTR Service: Nutrition Therapy Author Type: Shop Tech Type: Patient Education Filed: 07/11/2021 11:16 AM Note Text: NUTRITION THERAPY PATIENT EDUCATION SERVICE DATE: 07/11/2021 SERVICE TIME: 1030 TOPIC: Diet: Mediterranean and low sodium diet education LEARNING ASSESSMENT Individuals Assessed: Patient Preferred Learning Method: : No Preference Barriers to Learning: : Sensory Impairment LEARNING RESPONSE Instruction Provided to: Patient Patient / Family Response: Verbalizes Understanding Method of Instruction: Teach Back . Individual instruction Written instruction - handouts Verbal instruction Material(s) Provided to Patient: Mediterranean Diet Guidelines and Nutrition Therapy instruction material: Your Sodium-Controlled Diet Follow-Up Plan: Patient instructed to reach out with any further questions Please let Clinical Nutrition know if has any questions after reading provided hand outs. Referral (Recommendation): PEG MNT Billing: Routine Care/15 min 1 unit SIGNATURE: Adelita Osorio DTR PATIENT NAME: Jaiver Degroot DATE: July 11, 2021 TIME: 11:13 AM PAGER: [phone] Normal [facility] PT panel Coag (PPP)on 2020 INR Coag (PPP) [Relative time] 1.1 {INR} Normal 0.9-1.3 [facility] Comment on above: Order Comment: Speci men Type: BLOOD SPECIMEN Result Comment: Bren min K Antagonist (VKA) Therapeutic Range: INR 2 to 3 (Target INR of 2.5) Note: For patients treated with VKA drugs, such as warfarin, the [place] [employer] 2012 Guideline recommends a therapeutic INR range of 2 to 3 (target INR of 2.5). This recommendation includes high-risk patients with antiphospholipid syndrome with previous arterial or venous thromboembolism, current-generation mechanical or bioprosthetic aortic heart valve replacement. Note: Patients with mechanical aortic valve replacement and additional risk factors for thromboembolic events (atrial fibrillation, previous thromboembolism, LV dysfunction, hypercoagulable conditions) or an older generation mechanical AVR (i.e., ball in-Cage) or any mechanical MVR should have a INR therapeutic range of 2.5 to 3.5 (target INR of 3). Jeff GH, et al. Chest 2012, 141:7S-47S Angela RA, et al. [facility] 2017, 70: 252-289 Performed By: #### 3 4528-0 #### [facility] CLIA [id number] [address] PT Coag (PPP) [Time] 11.8 s Normal 9.7-13.0 [facility] Comment on above: Order Comment: Speci men Type: BLOOD SPECIMEN Performed By: #### 3 4528-0 #### [facility] CLIA [id number] [address] XR CHEST 1V FRONTALon 2020 XR CHEST 1V FRONTAL * * *Final Report* * * DATE OF EXAM: Jul 11 2021 5:38AM AKX [id number] - XR CHEST 1V FRONTAL / PROCEDURE REASON: Post-operative / post-procedure assessment, asymptomatic * * * * Physician Interpretation * * * * EXAMINATION: CHEST RADIOGRAPH (SINGLE VIEW AP OR PA) CLINICAL HISTORY: Post-operative / post-procedure assessment, asymptomatic MQ: XC1_5 Comparison: Study performed one day prior RESULT: Lines, tubes, and devices: Status post aortic valve repair Lungs and pleura: Bibasilar opacities, most likely related to atelectasis. Pneumonia considered less likely, although not excluded. No sizable effusion is noted. There is no pneumothorax. Cardiomediastinal silhouette: Stable enlargement. Other: None IMPRESSION: No significant change. Food Stand Manager: CORBIN Transcribe Date/Time: Jul 11 2021 7:09A Dictated by : ULICES NORMAN MD This examination was interpreted and the report reviewed and electronically signed by: ULICES NORMAN MD on Jul 11 2021 7:11AM EST [id number] Normal [facility] ALLIED HEALTHon 07-10-2021 ALLIED HEALTH HNO ID: [id number] Author: RT Jada(R) Service: ? Author Type: Technologist Type: Allied Health Filed: 07/10/2021 4:12 PM Note Text: Radiology Service Progress Note PATIENT NAME: Javier Degroot DATE OF SERVICE: July 10, 2021 TIME: 4:12 PM PATIENT IDENTITY VERIFICATION COMPLETED USING TWO (2) IDENTIFIERS: Name and Date of confirmed by patient verbally and Name and Date of confirmed by identification band. FALL SCREENING: Has the patient had 2 falls in the last year or 1 fall with injury or currently using an Ambulatory Assistive Device (Walker, Cane, Wheelchair, Crutches, etc.)? Inpatient: Screened on floor PATIENT GENDER DATA: Male PATIENT RELEVANT IMPLANT DATA REVIEWED: Not Applicable RADIOLOGY DEPARTMENT: General X-ray: Exam(s) Completed: Chest X-Ray PERIPHERAL IV DATA: Not applicable SIGNED BY: Serena Main RT(R) July 10, 2021 4:12 PM [facility] ANES PRE-OPon 07-10-2021 ANES PRE-OP HNO ID: [id number] Author: Amilcar Kearns MD Service: Anesthesiology Author Type: Physician Type: Anesthesia Preprocedure Evaluation Filed: 07/10/2021 11:30 AM Note Text: ANESTHESIOLOGY DAY OF SURGERY NOTE : 1945 Procedure(s) (LRB): TRANSCATHETER AORTIC VALVE REPLACEMENT (TAVR/ROSETTE) W/ PROSTHETIC VALVE OPEN FEMORAL ARTERY APPROACH (Bilateral) Surgeon(s): MD Shailesh Donato MD Estimated body mass index is 34.97 kg/m? as calculated from the following: Height as of 07/04/21: 172.7 cm (5' 8). Weight as of 07/04/21: 104.3 kg (230 lb). Most recent hematocrit and potassium results: Hematocrit 48.8 07/03/2021 Potassium 4.7 07/03/2021 Relevant Problems CARDIO (+) Aortic valve stenosis (+) Chronic atrial fibrillation (HCC) (+) Hypertension NEURO-PSYCH (+) Personal history of pulmonary embolism PULMONARY (+) Centrilobular emphysema (HCC) I - PHYSICAL EVALUATION AIRWAY Patient intubated: No. Tracheostomy tube not present Mallampati: III. TM distance: >3 FB. Neck ROM: limited extension. Mouth opening: adequate. DENTAL Dentures, upper: complete. Dentures, lower: partial. Additional comments: Remaining teeth: 21, 22, 27 AND 28.. II - ANESTHESIA PLAN ASA Score: 4 Anesthetic Plan: MAC NPO Status: adequate Monitoring plan: standard ASA and invasive hemodynamic monitoring. Monitoring method: arterial LinePostoperative analgesic plan: parenteral or oral opioids. Anesthetic Risks, Benefits, Alternatives, Personnel Discussed. Consent obtained from: patient.Patient / Surrogate agrees to blood products: Yes Potential Anesthesia issues that may suggest increased risk of complications or contraindication to planned procedure: none. Vitals Value Taken Time BP 139/94 07/10/21752 Pulse 87 07/10/21752 Resp 20 07/10/21752 Temp 36 ?C (96.8 ?F) 07/10/21752 SpO2 92 % 07/10/21752 Facility-Administered Medications as of 07/10/2021 Medication Dose Route Frequency - NaCl 0.9% 250 mL iv bolus 250 mL INTRAVENOUS ONCE Outpatient Medications as of 07/10/2021 Medication Sig - tamsulosin (FLOMAX) 0.4 mg Take 2 capsules by mouth daily at bedtime. - finasteride (PROSCAR) 5 mg tablet Take 1 tablet by mouth once daily. - dilTIAZem (CARDIZEM) 120 mg tablet Take 1 tablet by mouth three times daily. - metoprolol tartrate, short acting, (LOPRESSOR) 50 mg tablet Take 1.5 tablets by mouth twice daily. - potassium chloride ER (KLOR-CON M20) 20 mEq tablet Take 20 mEq by mouth twice daily. - Docusate Sodium 250 mg capsule Take 250 mg by mouth twice daily. - furosemide (LASIX) 40 mg tablet Take 40 mg by mouth twice daily. - apixaban (ELIQUIS) 5 mg tab tab(s) Take 1 tablet by mouth twice daily. I have interviewed and examined the patient. I have reviewed the medical record and/or the pre-anesthesia evaluation, pertinent labs, and test results. This contains updated information obtained within 48 hours of Surgery/Procedure. SIGNATURE: Amilcar Kearns MD PATIENT NAME: Javier Degroot DATE: July 10, 2021 TIME: 11:22 AM CSN: [id number] Normal [facility] Basic metabolic 2000 panelon 07-10-2021 Anion gap [Moles/Vol] 9 mmol/L Normal 9-18 [facility] Comment on above: Order Comment: Speci men Type: BLOOD SPECIMEN Performed By: #### 5 8410-2 #### [facility] CLIA [id number] [address] [place] Calcium [Mass/Vol] 9.0 mg/dL Normal 8.5-10.2 [facility] Comment on above: Order Comment: Speci men Type: BLOOD SPECIMEN Performed By: #### 5 8410-2 #### [facility] CLIA [id number] [address] Chloride [Moles/Vol] 108 mmol/L High 97-105 [facility] Comment on above: Order Comment: Speci men Type: BLOOD SPECIMEN Performed By: #### 5 8410-2 #### [facility] CLIA [id number] [address] CO2 [Moles/Vol] 24 mmol/L Normal 22-30 [facility] Comment on above: Order Comment: Speci men Type: BLOOD SPECIMEN Performed By: #### 5 8410-2 #### [facility] CLIA [id number] [address] [place] Creatinine [Mass/Vol] 0.90 mg/dL Normal 0.73-1.22 [facility] Comment on above: Order Comment: Speci men Type: BLOOD SPECIMEN Performed By: #### 5 8410-2 #### [facility] CLIA [id number] [address] [place] GFR/1.73 sq M.predicted MDRD (S/P/Bld) [Vol rate/Area] mL/min/{1.73_m2} Normal [facility] Comment on above: Order Comment: Speci men Type: BLOOD SPECIMEN Result Comment: >60 eGFR (Estimated GFR) Units of measure: mL/min/1.73 [...] accurately reflect actual GFR. Performed By: #### 5 8410-2 #### [facility] CLIA [id number] [address] [place] Glucose [Mass/Vol] 125 mg/dL High 74-99 [facility] Comment on above: Order Comment: Speci men Type: BLOOD SPECIMEN Result Comment: The [place] [employer] (ADA) provides guidance for cutoff values for fasting glucose and random glucose. The ADA defines fasting as no caloric intake for at least 8 hours. Fasting plasma glucose results between 100 to 125 [...] Standards of Medical Care in Diabetes 2016, [place] [employer]. Diabetes Care. 2016.39(Suppl 1). Performed By: #### 5 8410-2 #### [facility] CLIA [id number] [address] [place] Potassium [Moles/Vol] 4.6 mmol/L Normal 3.7-5.1 [facility] Comment on above: Order Comment: Speci men Type: BLOOD SPECIMEN Performed By: #### 5 8410-2 #### [facility] CLIA [id number] [address] [place] Sodium [Moles/Vol] 141 mmol/L Normal 136-144 [facility] Comment on above: Order Comment: Speci men Type: BLOOD SPECIMEN Performed By: #### 5 8410-2 #### [facility] CLIA [id number] [address] [place] Urea nitrogen [Mass/Vol] 19 mg/dL Normal 9-24 [facility] Comment on above: Order Comment: Speci men Type: BLOOD SPECIMEN Performed By: #### 5 8410-2 #### [facility] CLIA [id number] [address] CBC panel Auto (Bld)on 07-10 Erythrocyte distribution width (RBC) [Ratio] 14.6 % Normal 11.5-15.0 [facility] Comment on above: Order Comment: Speci men Type: BLOOD SPECIMEN Performed By: #### 5 8410-2 #### [facility] CLIA [id number] [address] Hematocrit (Bld) [Volume fraction] 42.5 % Normal 39.0-51.0 [facility] Comment on above: Order Comment: Speci men Type: BLOOD SPECIMEN Performed By: #### 5 8410-2 #### [facility] CLIA [id number] [address] Hemoglobin (Bld) [Mass/Vol] 13.7 g/dL Normal 13.0-17.0 [facility] Comment on above: Order Comment: Speci men Type: BLOOD SPECIMEN Performed By: #### 5 8410-2 #### [facility] CLIA [id number] [address] MCH (RBC) [Entitic mass] 30.7 pg Normal 26.0-34.0 [facility] Comment on above: Order Comment: Speci men Type: BLOOD SPECIMEN Performed By: #### 5 8410-2 #### [facility] CLIA [id number] [address] MCHC (RBC) [Mass/Vol] 32.2 g/dL Normal 30.5-36.0 [facility] Comment on above: Order Comment: Speci men Type: BLOOD SPECIMEN Performed By: #### 5 8410-2 #### [facility] CLIA [id number] [address] MCV (RBC) [Entitic vol] 95.3 fL Normal 80.0-100.0 [facility] Comment on above: Order Comment: Speci men Type: BLOOD SPECIMEN Performed By: #### 5 8410-2 #### [facility] CLIA [id number] [address] Nucleated RBC (Bld) [#/Vol] 10*3/uL Normal <0.01 [facility] Comment on above: Order Comment: Speci men Type: BLOOD SPECIMEN Performed By: #### 5 8410-2 #### [facility] CLIA [id number] [address] Platelet mean volume (Bld) [Entitic vol] 9.6 fL Normal 9.0-12.7 [facility] Comment on above: Order Comment: Speci men Type: BLOOD SPECIMEN Performed By: #### 5 8410-2 #### [facility] CLIA [id number] [address] Platelets (Bld) [#/Vol] 200 10*3/uL Normal 150-400 [facility] Comment on above: Order Comment: Speci men Type: BLOOD SPECIMEN Performed By: #### 5 8410-2 #### [facility] CLIA [id number] [address] RBC (Bld) [#/Vol] 4.46 10*6/uL Normal 4.20-6.00 [facility] Comment on above: Order Comment: Speci men Type: BLOOD SPECIMEN Performed By: #### 5 8410-2 #### [facility] CLIA [id number] [address] WBC (Bld) [#/Vol] 16.27 10*3/uL High 3.70-11.00 [facility] Comment on above: Order Comment: Speci men Type: BLOOD SPECIMEN Performed By: #### 5 8410-2 #### [facility] CLIA [id number] [address] HISTORY PHYSICALon 1 HISTORY PHYSICAL HNO ID: [id number] Author: Eldon Mayer MD Service: Cardiovascular Medicine Author Type: Resident Type: HANDP Filed: 07/10/2021 5:01 PM Note Text: Attestation signed by Remington Haji MD at 07/12/2021 2:02 PM (Updated) Attending Note I evaluated the patient and personally participated in the diaz components. I agree with the resident's findings and plan as documented and have discussed the case and management of the patient's care with the resident. Patient s/p 26mm S3 ultra TAVR via the right femoral artery approach. Please see operative report for details. Signature: Remington Haji MD Date: 07/10/2021 Time: 2:01 PM Cardiovascular Critical Care History and Physical SERVICE DATE: July 10, 2021 SERVICE TIME: 4:36 PM Admission Date: 07/10/2021 HPI: Mr. Javier Degroot is a 75-year-old male with PMH of: - Cardiac: CAD, Chronic Atrial Fibrillation on Eliquis, Hypertension, Hyperlipidemia, Aortic Valve Stenosis - Pulmonary: Pulmonary HTN, NOAM, COPD - Prior TIA in 2019 - Prior Tobacco Use - Prior DVT/PE - Recent COVID-19 Infection in 09/2020 requiring 2L Home O2 Patient presented to [facility] on 07/10 for elective transcatheter aortic valve replacement with Dr. Haji. Patient was admitted to the CVICU post-operatively for continued management and observation. On evaluation after reaching the CVICU, patient reports that he has no complaints, and denies chest pain, palpitations, orthopnea, leg swelling, dyspnea or cough. He is on 6L NC however does not feel dyspneic at this time. Review of Systems Constitutional: Negative for chills, [...] Negative for dysuria, frequency and urgency. Musculoskeletal: Negative for back pain and myalgias. Neurological: Negative for dizziness, sensory change, loss [...] 01/09/2019 left sided weakness - Centrilobular emphysema ([facility]) 04/13/2016 Dr. Bran Russell, pulmonary - Chronic [...] - SIGMOIDS DIAG W/REM POLYP SNARE 07/23/2011 medication ALLERGIES Allergen Reactions - Lisinopril Cough Social History Tobacco Use - Smoking status: Former Smoker Packs/day: 1.50 Years: 50.00 Pack years: 75.00 Types: Cigarettes Quit date: 06/24/2011 Years since quittin.0 - Smokeless tobacco: Former User Quit date: 06/24/2012 Substance Use Topics - Alcohol use: No - Drug use: No Sexual Activity: Patient is sexually active, with female partner(s). No reported control method. Family History Problem Relation Age of Onset - Diabetes Mother - other (Other) Mother old age, natural causes MEDICATIONS IV infusions: NaCl 0.9%, Last Rate: 100 mL/hr (07/10/21 1600) Scheduled medications finasteride, 5 mg, DAILY tamsulosin, 0.8 mg, AT BEDTIME metoprolol tartrate (short acting), 75 mg, BID dilTIAZem, 120 mg, BID [START ON 07/11/2021] apixaban, 5 mg, BID docusate sodium, 200 mg, BID [START ON 07/11/2021] furosemide, 40 mg, BID [START ON 07/11/2021] potassium chloride ER, 20 mEq, BID sodium chloride 0.9 % (flush), 3-5 mL, q 12 H cephALEXin, 500 mg, q 12 H [START ON 07/11/2021] c (more content not included)... Normal [facility] OPERATIVE NOon 07-10-2021 OPERATIVE NO HNO ID: [id number] Author: Shailesh Mustafa MD Service: Cardiac Surgery Author Type: Physician Type: Operative Report Filed: 07/10/2021 3:00 PM Note Text: INTERVENTIONAL CARDIOLOGY Transcatheter Aortic Valve Replacement via Transfemoral Approach Procedure Note Name: Javier Degroot Date: July 10, 2021 STAFF PHYSICIANS: 1. Dr. Remington Liu 2. Dr. Shailesh Mustafa INDICATION FOR PROCEDURE: Severe Symptomatic Aortic Stenosis PROCEDURES: 1. Successful transfemoral implantation of a 26 mm Duenas-Colby S3 THV deployed at nominal fill volume 2. Placement of a temporary venous pacemaker 3. Right femoral arterial access site closure with and single?Perclose Proglide device?and 8Fr. Angioseal* 4. Selective angiography of the right common femoral artery (first order) 5. Successful placement and removal of a Quinn Cerebral Embolic Protection device via the right radial artery PROCEDURAL DETAILS: The patient was counseled extensively regarding the risks, benefits, and alternatives to the procedure and after answering all questions, the patient yielded informed consent. The patient was thereafter brought to the operative suite and monitored anesthesia care was delivered. Preprocedural antibiotic was administered intravenously. Sterile technique was used throughout the case. All vascular access was obtained using modified Seldinger technique. The right EVALUATION ASSISTANT was accessed with micropuncture, the arteriotomy preclosed with a Perclose Proglide device, and upsized to an 8F sehath. A 5F sheath was placed in the right EVALUATION ASSISTANT inferior to the 8F sheath. A 7F sheath was placed in the right CFV. Next, a Tempo active fixation temporary pacing wire was placed in the right ventricle via the 7F CFV sheath. Heparin was administered to a goal ACT <250 sec. Right radial artery access was obtained with a 6F sheath. Over a 0.014 Whisper wire, a Quinn cerebral embolic protection device was advanced, with baskets positioned in the innominate and left common carotid arteries. Over a Lunderquist wire, the 8F sheath was removed, and replaced with a 14F E-Sheath. After securing the delivery sheath, a 5F AL1 was advanced to the aortic root. Using a 0.035 straight wire, the aortic valve was crossed. Over the wire, the AL1 catheter was advanced across the valve. The straight wire was removed and exchanged for a preformed Amplatz Extrastiff J-wire. Next, the Duenas-Colby 3 delivery system with a mounted valve was delivered to the ascending aorta. After confirming appropriate placement across the aortic valve using aortic root angiogaphy the 26 mm Duenas-Colby S3 THV was deployed at nominal fill volume, with rapid ventricular pacing at 180 beats per minute. Following valve deployment, the aortography and transthoracic echocardiogram revealed a well-placed and well-seated valve, with no evidence of significant aorticregurgitation. Following valve deployment, the transthoracic echocardiogram and aortic root angiogram revealed a well placed and well seated valve with no evidence of significant aortic regurgitation. The temporary transvenous pacemaker was then positioned in the RA. Rapid atrial pacing was performed up to 120 bpm, without induction of AV block. Next, the delivery catheter system was removed. The right femoral artery superior access site was successfully closed using the predeployed one Perclose, as well as one 8F Angioseal VIP devices. A sheath injection angiogram of the right femoral artery revealed normal flow without significant stenosis, dissection, or contrast extravasation. Hemostasis was achieved to the right radial artery access site with a Vasc Band. Manual compression hemostasis applied to the venous sheath. The patient tolerated the procedure well. EBL: <30 cc DISPOSITION: Patient was transferred to the coronary intensive care unit for further management according to protocol. Shailesh Mustafa MD [facility] OPERATIVE NO HNO ID: [id number] Author: Remington Haji MD Service: Cardiovascular Medicine Author Type: Physician Type: Operative Report Filed: 07/10/2021 2:49 PM Note Text: INTERVENTIONAL CARDIOLOGY Transcatheter Aortic Valve Replacement via Transfemoral Approach Procedure Note Name: Javier Degroot Date: July 10, 2021 STAFF PHYSICIANS: 1. Dr. Remington Liu 2. Dr. Shailesh Mustafa INDICATION FOR PROCEDURE: Severe Symptomatic Aortic Stenosis PROCEDURES: 1. Successful transfemoral implantation of a 26 mm Duenas-Colby S3 THV deployed at Nominal fill volume 2. Placement of a temporary venous pacemaker 3. Right femoral arterial access site closure with a single Perclose Proglide device and 8Fr. Angioseal 4. Selective angiography of the right common femoral artery (first order) 5. Successful placement and removal of a Quinn Cerebral Embolic Protection device via the right radial artery PROCEDURAL DETAILS: The patient was counseled extensively regarding the risks, benefits, and alternatives to the procedure and after answering all questions, the patient yielded informed consent. The patient was thereafter brought to the operative suite and monitored anesthesia care was delivered. Preprocedural antibiotic was administered intravenously. Sterile technique was used throughout the case. All vascular access was obtained using modified Seldinger technique. The right EVALUATION ASSISTANT was accessed with micropuncture, the arteriotomy preclosed with a Perclose Proglide device, and upsized to an 8F sheath. A 5F sheath was placed in the right EVALUATION ASSISTANT inferior to the 8F sheath. A 6F sheath was placed in the right CFV. Next, a temporary pacing wire was placed in the right ventricle via the 6F CFV sheath. Heparin was administered to a goal ACT >250 sec. Right radial artery access was obtained with a 6F sheath. Over a 0.014 Whisper wire, a Quinn cerebral embolic protection device was advanced, with baskets positioned in the innominate and left common carotid arteries. Over a Lunderquist wire, the 8F sheath was removed, and replaced with a 14F E-Sheath. After securing the delivery sheath, a 5F AL1 was advanced to the aortic root. Using a 0.035 straight wire, the aortic valve was crossed. Over the wire, the AL1 catheter was advanced across the valve. The straight wire was removed and exchanged for a preformed Amplatz Extrastiff J-wire. Next, the Duenas-Colby 3 delivery system with a mounted valve was delivered to the ascending aorta. After confirming appropriate placement across the aortic valve using aortic root angiogaphy the 26 mm Duenas-Colby S3 THV was deployed at Nominal fill volume, with rapid ventricular pacing at 180 beats per minute. Following valve deployment, the aortography and transthoracic echocardiogram revealed a well-placed and well-seated valve, with no evidence of significant aorticregurgitation. Following valve deployment, the transthoracic echocardiogram and aortic root angiogram revealed a well placed and well seated valve with no evidence of significant aortic regurgitation. Next, the delivery catheter system was removed. The right femoral artery superior access site was successfully closed using the predeployed one Perclose, as well as one 8F Angioseal VIP devices. A sheath injection angiogram of the right femoral artery revealed normal flow without significant stenosis, or dissection. There was slight contrast extravasation, which was alleviated by balloon tamponade. There was slight extravasation at the inferior access site, and manual compression was held at that site. Hemostasis was achieved to the right radial artery access site with a Vasc Band. Manual compression hemostasis applied to the venous sheath. The patient tolerated the procedure well. EBL: <30 cc DISPOSITION: Patient was transferred to the coronary intensive care unit for further management according to protocol. Normal [facility] XR CHEST 1V FRONTALon 2020 XR CHEST 1V FRONTAL * * *Final Report* * * DATE OF EXAM: Jul 10 2021 3:59PM [id number] - XR CHEST 1V FRONTAL / PROCEDURE REASON: Post-operative / post-procedure assessment, asymptomatic * * * * Physician Interpretation * * * * CHEST RADIOGRAPH (PORTABLE semiupright SINGLE VIEW AP) Exam Date/Time: 07/10/2021 3:59 PM Indications: Post-operative / post-procedure assessment, asymptomatic. Comparison: 04/24/2019 RESULTS: 1. Lines, Tubes, and Devices: N/A 2. Airway, lungs and Pleura: The trachea is unremarkable. There are relatively low lung volumes and mild pulmonary vascular engorgement and mild interstitial prominence suggesting mild interstitial edema. No consolidation is identified. The costophrenic sulci are sharp. There is no pneumothorax. 3. Cardiomediastinal silhouette and kristy: Interval development of mild cardiomegaly. The thoracic aorta is calcified. There is no obvious hilar enlargement. 4. Other: While evaluation is somewhat limited by large body habitus and technique, mild to moderate degenerative changes are noted in the visualized spine. IMPRESSION: Interval development of mild cardiomegaly. Mild pulmonary vascular engorgement and mild interstitial prominence suggesting mild interstitial edema. Relatively low lung volumes. Food Stand Manager: [facility] Transcribe Date/Time: Jul 10 2021 4:05P Dictated by : JOSE D LOPEZ MD This examination was interpreted and the report reviewed and electronically signed by: JOSE D LOPEZ MD on Jul 10 2021 4:07PM EST [id number] Normal [facility] CBC W/DIFFon 11-18-2020 BASO ABS 0.10 K/CU MM Normal 0-0.2 [facility] Comment on above: Order Comment: Yamil s: M Performed By: #### L [id number] #### [facility] [address] [place] [address] Basophils/100 WBC (Bld) 0.9 % Normal 0-2 [facility] Comment on above: Order Comment: Yamil s: M Performed By: #### L [id number] #### [facility] [address] [place] [address] EOS ABS 0.10 K/CU MM Normal 0-0.5 [facility] Comment on above: Order Comment: Yamil s: M Performed By: #### L [id number] #### [facility] [place] [address] Eosinophils/100 WBC (Bld) 1.2 % Normal 0-5 [facility] Comment on above: Order Comment: Campu s: M Performed By: #### L [id number] #### [facility] [address] [place] [address] Erythrocyte distribution width (RBC) [Ratio] 15.8 % High 11-14.5 [facility] Comment on above: Order Comment: Campu s: M Performed By: #### L [id number] #### [facility] [address] [place] [address] Hematocrit (Bld) [Volume fraction] 33.9 % Low 41.0-53.0 [facility] Comment on above: Order Comment: Campu s: M Performed By: #### L [id number] #### [facility] [address] [place] [address] Hemoglobin (Bld) [Mass/Vol] 10.9 g/dL Low 13.5-17.5 [facility] Comment on above: Order Comment: Campu s: M Performed By: #### L .78583 #### [facility] [address] [place] [address] IMMATR GRAN ABS 0.50 K/CU MM Normal Less than 2 [facility] Comment on above: Order Comment: Campu s: M Performed By: #### L [id number] #### [facility] [address] [place] [address] IMMATURE GRAN % 4.3 % Normal Less than 2 [facility] Comment on above: Order Comment: Campu s: M Performed By: #### L [id number] #### [facility] [address] [place] [address] LYMPH ABS 1.90 K/CU MM Normal 0.9-4.4 [facility] Comment on above: Order Comment: Campu s: M Performed By: #### L [id number] #### [facility] [address] [place] [address] Lymphocytes/100 WBC (Bld) 15.8 % Low 20-40 [facility] Comment on above: Order Comment: Campu s: M Performed By: #### L [id number] #### [facility] [address] [place] [address] MCHC (RBC) [Mass/Vol] 32.2 g/dL Normal 32.0-36.0 [facility] Comment on above: Order Comment: Campu s: M Performed By: #### L [id number] #### [facility] [address] [place] [address] MCV (RBC) [Entitic vol] 97.4 fL Normal 80.0-99.0 [facility] Comment on above: Order Comment: Campu s: M Performed By: #### L [id number] #### [facility] [address] [place] [address] MONO ABS 0.80 K/CU MM Normal 0.1-1.1 [facility] Comment on above: Order Comment: Campu s: M Performed By: #### L [id number] #### [facility] [address] [place] [address] Monocytes/100 WBC (Bld) 6.6 % Normal 2-10 [facility] Comment on above: Order Comment: Campu s: M Performed By: #### L [id number] #### [facility] [address] [place] [address] NEUTROPHIL ABS 8.40 K/CU MM High 2.0-8.3 [facility] Comment on above: Order Comment: Campu s: M Performed By: #### L [id number] #### [facility] [address] [place] [address] Neutrophils/100 WBC (Bld) 71.2 % Normal 45-75 [facility] Comment on above: Order Comment: Campu s: M Performed By: #### L [id number] #### [facility] [address] [place] [address] Nucleated RBC/100 WBC (Bld) [Ratio] 0.0 % Normal Less than 1 [facility] Comment on above: Order Comment: Campu s: M Performed By: #### L [id number] #### [facility] [address] [place] [address] Platelet mean volume (Bld) [Entitic vol] 9.0 fL Low 9.4-12.4 [facility] Comment on above: Order Comment: Campu s: M Performed By: #### L [id number] #### [facility] [address] [place] [address] PLT 274 K/CU MM Normal 150-450 [facility] Comment on above: Order Comment: Campu s: M Performed By: #### L [id number] #### [facility] [address] [place] [address] RBC 3.48 M/CU MM Low 4.50-6.00 [facility] Comment on above: Order Comment: Campu s: M Performed By: #### L [id number] #### [facility] [address] [place] [address] WBC 11.7 K/CUMM High 4.5-11.0 [facility] Comment on above: Order Comment: Campu s: M Performed By: #### L 200.48554 #### [facility] [address] [place], [place] [id number] CMPon 11-18-2020 Albumin [Mass/Vol] 2.8 g/dL Low 3.2-5.0 [facility] Comment on above: Order Comment: Campu s: M Performed By: #### L [id number] #### [facility] [address] [place] [address] Albumin/Globulin [Mass ratio] 1.0 {ratio} Normal 0.8-2.0 [facility] Comment on above: Order Comment: Campu s: M Performed By: #### L [id number] #### [facility] [address] [place] [address] ALK PHOS 71 U/L Normal 45-117 [facility] Comment on above: Order Comment: Campu s: M Performed By: #### L [id number] #### [facility] [place] [address] ALT [Catalytic activity/Vol] 72 U/L High 13-61 [facility] Comment on above: Order Comment: Campu s: M Result Comment: RESU LTS MAY BE FALSELY DEPRESSED AFTER THE ADMINISTRATION OF SULFASALAZINE AND/OR SULFAPYRIDINE. Performed By: #### L 200.74788 #### [facility] [address] [place] [address] Anion gap [Moles/Vol] 6 mmol/L Normal 5-16 [facility] Comment on above: Order Comment: Campu s: M Performed By: #### L 200.12271 #### [facility] [place] [address] AST [Catalytic activity/Vol] 24 U/L Normal 8-34 [facility] Comment on above: Order Comment: Campu s: M Result Comment: RESU LTS MAY BE FALSELY DEPRESSED AFTER THE ADMINISTRATION OF SULFASALAZINE AND/OR SULFAPYRIDINE. Performed By: #### L 200.23877 #### [facility] [address] [place] [address] BILI TOTAL 0.40 MG/DL Normal 0.2-1.0 [facility] Comment on above: Order Comment: Campu s: M Performed By: #### L 200.62785 #### [facility] [address] [place] [address] Calcium [Mass/Vol] 9.6 mg/dL Normal 8.5-10.5 [facility] Comment on above: Order Comment: Campu s: M Result Comment: NOTE NEW NORMAL RANGE DUE TO REAGENT CHANGE Performed By: #### L [id number] #### [facility] [place] [id number] Chloride [Moles/Vol] 103 mmol/L Normal 98-107 [facility] Comment on above: Order Comment: Campu s: M Performed By: #### L [id number] #### [facility] [address] [place] [address] CO2 [Moles/Vol] 32.0 mmol/L Normal 21-32 [facility] Comment on above: Order Comment: Campu s: M Performed By: #### L [id number] #### [facility] [address] [place] [address] Creatinine [Mass/Vol] 0.84 mg/dL Normal 0.5-1.4 [facility] Comment on above: Order Comment: Campu s: M Result Comment: NOTE NEW NORMAL RANGE DUE TO REAGENT CHANGE Patients receiving either N-Acetylcysteine (NAC) or Metamizole prior to venipuncture, may have falsely depressed results. Performed By: #### L 200.17958 #### [facility] [address] [place], [place] [address] Globulin (S) [Mass/Vol] 2.9 g/dL Normal 2.2-4.2 [facility] Comment on above: Order Comment: Campu s: M Performed By: #### L 200.49632 #### [facility] [place] [address] Glucose [Mass/Vol] 98 mg/dL Normal 70-100 [facility] Comment on above: Order Comment: Campu s: M Result Comment: 70-1 00- Normal Fasting; 100-125 Impaired Fasting; greater than 126 on more than one result- Diabetes. ADA guidelines. Results may be falsely elevated after the administration of Sulfapyridine. Results may be falsely depressed after the administration of Sulfasalazine. Performed By: #### L 200.67649 #### [facility] [address] [place] [address] Potassium [Moles/Vol] 4.0 mmol/L Normal 3.5-5.1 [facility] Comment on above: Order Comment: Campu s: M Result Comment: Slig ht Hemolysis, Result may be affected. Performed By: #### L 200.00254 #### [facility] [address] [place] [address] Protein [Mass/Vol] 5.7 g/dL Low 6.0-8.5 [facility] Comment on above: Order Comment: Campu s: M Performed By: #### L 200.10233 #### [facility] [address] [place] [address] Sodium [Moles/Vol] 141 mmol/L Normal 136-145 [facility] Comment on above: Order Comment: Campu s: M Performed By: #### L 200.05076 #### [facility] [address] [place] [address] Urea nitrogen [Mass/Vol] 29 mg/dL High 7-26 [facility] Comment on above: Order Comment: Campu s: M Performed By: #### L 200.25352 #### [facility] [address] [place] [address] Urea nitrogen/Creatinine [Mass ratio] 35 mg/mg High 15-24 [facility] Comment on above: Order Comment: Campu s: M Performed By: #### L 200.18595 #### [facility] [address] [place] [address] GFR ESTon 03-08-2021 IF AMER Greater than 60 Normal [facility] Comment on above: Order Comment: Campu s: M Performed By: #### L [id number] #### [facility] [address] [place], [place] [address] IF non-AFR AMER Greater than 60 Normal [facility] Comment on above: Order Comment: Campu s: M Performed By: #### L 200.21858 #### [facility] [address] [place], [place] [address] MAGNESIUMon 11-18-2020 MAGNESIUM 2.0 MG/CL Normal 1.6-2.6 [facility] Comment on above: Order Comment: Campu s: M Performed By: #### L 200.37457 #### [facility] [address] [place] [address] PHOSon 11-18-2020 Phosphate [Mass/Vol] 3.20 mg/dL Normal 2.5-4.9 [facility] Comment on above: Order Comment: Campu s: M Result Comment: Elev ated m-protein (paraprotein) levels in the serum may be exhibited in patients with monoclonal gammopathies, causing falsely elevated inorganic phosphorus results. Performed By: #### L 200.02719 #### [facility] [address] [place] [address] PROG.Lety 11-18-2020 PROG.CARD [facility] Patient Name: JAVIER DEGROOT [address] [place] [address] Date of : [address] [address] Unit Number: [id number] Progress Note-Cardiology Patient Status: REG RCR Attending Doctor: Andrea Ashley MD Service Date: 11/18/20704 See Addendum Progress Note-Cardiology [facility] Subjective Subjective: Sitting up in chair. Denies complaints of chest pain, shortness of breath, palpitations, lightheadedness or dizziness. No cardiac events noted. Remains atrial fibrillation with good heart rate control over weekend on current therapy. Continue to monitor. Objective Vital Signs: Weight: pounds T 97.6, HTR 92 ATRIAL FIBRILLATION, R 24, BP 106/50 Lab Results: Lab 24hr (CBC/BMP Teresita) 11/18/20 0442: [Embedded Image Not Available] Anion Gap 6, Est GFR ( Amer) Greater than 60, Est GFR (Non-Af Amer) Greater than 60 , BUN/Creatinine Ratio 35 H, Glucose 98, Total Calcium 9.6, Phosphorus 3.20, Magnesium 2.0 , Total Bilirubin 0.40, AST 24, ALT 72 H, Alkaline Phosphatase 71, Serum Total Protein 5.7 L, Albumin 2.8 L, Globulin 2.9, Albumin/Globulin Ratio 1.0, RBC 3.48 L, MCV 97.4, MCHC 32.2, RDW 15.8 H, MPV 9.0 L, Immature Gran % (Auto) 4.3, Abs Immat Gran (auto) 0.50, Seg Neutrophils % 71.2, Lymphocytes % 15.8 L, Monocytes % 6.6, Eosinophils % 1.2, Basophils % 0.9, Neutrophils # 8.40 H, Lymphocytes # 1.90, Monocytes # 0.80, Eosinophils # 0.10, Basophils # 0.10, Nucleated RBCs 0.0 Exam: Awake, alert, oriented Skin pink, warm, dry Heart irreg-irreg, S1, S2 Lung diminished, clear, nonlabored respirations Abdomen obese, soft, nontender, bowel sounds present Trace bilateral lower extremity edema Assessment/Plan Assessment/Problem List: 1. Tachycardia Chest x-ray from 11/07/2020 Diffuse interstitial prominence with ill-defined opacities in both lung bases. Overall appearance has not significantly changed since 10/19/2020. Medications Metoprolol Tartrate 75 mg po bid Cardizem 120 mg po TID Digoxin 0.125 daily Lasix 40 mg IV q8h Prednisone 90 mg 3 times daily Eliquis 5 mg twice daily 640 mg IV twice daily atorvastatin 10 daily Laboratory data November 18 WBC 11.7, HGB 10.9, HCT 33.9, PLT 274 SODIUM 141, K 4.0, CHLORIDE 103, CO2 32, BUN 29, CREATININE 0.84, GLUCOSE 98 PHOS. 3.20, MG 2.0, T. BILI 0.40, AST 24, ALT 72, ALK PHOS 71 ALBUMIN 2.8 Assessment Slightly elevated LFTs - off statin for now - IMPROVING 11/18 Covid 19 recovery History of Covid pneumonia Acute respiratory failure with hypoxia - improving Hyperlipidemia - statin held due to elevated LFT's Pulmonary artery hypertension Hypertension - controlled Moderate aortic insufficiency - monitored 4 times a year at [place] BPH Solitary lung nodule Bilateral PE, on long-term Eliquis Plan Telemetry in select specialties Also added Lopressor 5 mg IV every 4 hours as needed for heart rate greater than 110 or systolic blood pressure greater than 150 On Digoxin currently Continue cardizem and metoprolol as ordered, monitor blood pressure closely Continue to diurese with lasix IV, check BMP in am to monitor renal function 2 g sodium restricted diet Intake and output, daily weights 11/18 Heart rates have been much better controlled in atrial fibrillation on current medical therapy. Had no cardiac events over the weekend. Patient cannot feel his rapid rates or that he is even in atrial fibrillation. Denies complaints, nonlabored respirations. Collaborating Physician: George Botello MD Physician Attestation Statement of Attestation I confirm that I have evaluated the patient, reviewed the history and physical, medications, diagnostic results, physical exam, assessment and plan of care of the patient. ADDENDUM: GEORGE BOTELLO on 11/18/20 at 1646 As above. Patient now in atrial fibrillation with a controlled ventricular rate and anticoagulated. Continue the current Cardizem, digoxin, and metoprolol dosages. Disclaimer This dictation was created using voice recognition software. Phonetic and/or minor grammatical errors may exist. eSign Date and Time George Botello MD Verified/Reviewed by 11/18/20 1646 Maria Elena Mobley CNP Verified/Reviewed by 11/18/20 1047 Normal [facility] Progress Note-Cardiology [facility] Romero 11-15-2020 Potassium [Moles/Vol] 3.6 mmol/L Normal 3.5-5.1 [facility] Comment on above: Order Comment: Yamil s: Mike Result Comment: Kayleeig ht Hemolysis, Result may be affected. Performed By: #### L [id number] #### [facility] [address] [place] [address] PROG.Lety 11-15-2020 PROG.SUMA [facility] Patient Name: JAVIER DEGROOT [address] Date of : [address] [place] [address] Unit Number: [id number] Progress Note-Cardiology Patient Status: REG RCR Attending Doctor: Andrea Ashley MD Service Date: 11/15/20 1306 See Addendum Progress Note-Cardiology ADV Subjective Subjective: No cardiac events noted during the night. Heart rate well controlled in the 80s and 90s, atrial fibrillation. Patient sitting up in chair eating, denies complaints of chest pain or shortness of breath. Objective Vital Signs: Weight: pounds Temperature 97.8, heart rate 86 atrial fibrillation, respirations 20, blood pressure 111/ 62 Lab Results: Lab 24hr (CBC/BMP Fishbone) 11/15/20 0421: [Embedded Image Not Available] Radiology Impressions: Recent Impressions (LAST) ULTRASOUND - US KIDNEY 11/10 1015 Report Impression - Status: SIGNED Entered: 11/10/2020 1127 IMPRESSION: Hypoechoic lesions within both kidneys most likely representing mildly complex cysts. Nonobstructive left renal calculus. Negative for hydronephrosis. Impression By: JOHAN POND M.D. Exam: Awake, alert, oriented Skin [place], warm, dry Heart irregular irregular, S1, S2, systolic murmur noted Clear but diminished throughout, nonlabored respirations Abdomen soft, nontender, bowel sounds present No bilateral lower extremity edema Assessment/Plan Assessment/Problem List: 1. Tachycardia Chest x-ray from 11/07/2020 Diffuse interstitial prominence with ill-defined opacities in both lung bases. Overall appearance has not significantly changed since 10/19/2020. Medications Metoprolol Tartrate 75 mg po bid Cardizem 120 mg po TID Digoxin 0.125 daily Lasix 40 mg IV q8h Prednisone 90 mg 3 times daily Eliquis 5 mg twice daily 640 mg IV twice daily atorvastatin 10 daily Laboratory data November 14, 2020 White blood count 9.3, hemoglobin 10.6, hematocrit 33.3, platelets 222 Sodium 142, potassium 3.4, chloride 103, CO2 31, BUN 32, creatinine 0.81, glucose 98 Laboratory data November 11, 2020 White blood count 13.3, hemoglobin 10.9, hematocrit 33.9, platelets 234 Sodium 143, potassium 3.5, chloride 105, CO2 32, BUN 25, creatinine 0.84, glucose 94 Phosphorus 4.2, magnesium 2.1, total bilirubin 0.7, AST 37, ALT 89, alkaline phosphatase 60, albumin 2.3 Assessment Hypokalemia-potassium 3.4 Tachycardia - improving with med changes Slightly elevated LFTs - off statin for now Covid 19 recovery History of Covid pneumonia Acute respiratory failure with hypoxia - improving Hyperlipidemia - statin held due to elevated LFT's Pulmonary artery hypertension Hypertension - controlled Moderate aortic insufficiency - monitored 4 times a year at [place] BPH Solitary lung nodule Bilateral PE, on long-term Eliquis Plan Telemetry in select specialties Supplement potassium with 40 of p.o. potassium today and then start potassium scheduled at 10 mEq daily Also will add Lopressor 5 mg IV every 4 hours as needed for heart rate greater than 110 or systolic blood pressure greater than 150 On Digoxin now Continue cardizem and metoprolol as ordered, monitor blood pressure closely Continue to diurese with lasix IV, check BMP in am to monitor renal function 2 g sodium restricted diet Intake and output, daily weights 3/ patient sitting up in chair, denies complaints. No cardiac event.. Heart rate still remains slightly elevated. Staff continues to frequently hold either beta-brittany or Cardizem Cardizem increased this morning to 120 3 times daily. Patient's fluid balance definitely improving, lower bilateral lower extremities are shriveled without edema.. 3/2 patient is sitting up in chair without any complete. No cardiac events noted through the night. No ectopy heart rate remains in the 110 range even with increasing Cardizem to 120 mg 3 times daily. Lungs are clear, nonlabored respiration.. 3/3 Patient sitting up in chair. Edema to lower legs much improved along with improved respiratory status. Feels good. Legs tightening up, shriveling. Heart irreg-irreg, much improved rate from 90-low 100 range. Medications have been adjusted. PRN lopressor is on orders. Patient gets echocardiograms every four months at [facility]. Consider echocardiogram during this stay to monitor valvular disease with history of moderate aortic insufficiency. Denies complaints. /4 patient currently on Cardizem 120 3 times daily and metoprolol tartrate 75 twice daily today patient's heart rates are greatly improved from 80-92 100 atrial fibrillation. Its been difficult to get heart rates where they are at currently and that is with patient sitting up in the chair and active. Patient's potassium level was low and it has been on a consistent basis; protocol for p.o. potassium was given in a scheduled dose of 10 mEq daily will be ordered. Lolae (more content not included)... Normal [facility] Progress Note-Cardiology Normal [facility] BMP 11-14-2020 Anion gap [Moles/Vol] 8 mmol/L Normal 5-16 [facility] Comment on above: Order Comment: Campu s: M Performed By: #### L [id number] #### [facility] [address] [place] [id number] Calcium [Mass/Vol] 9.3 mg/dL Normal 8.5-10.5 [facility] Comment on above: Order Comment: Campu s: M Result Comment: NOTE NEW NORMAL RANGE DUE TO REAGENT CHANGE Performed By: #### L [id number] #### [facility] [place] [address] Chloride [Moles/Vol] 103 mmol/L Normal 98-107 [facility] Comment on above: Order Comment: Campu s: M Performed By: #### L [id number] #### [facility] [address] [place] [address]324 CO2 [Moles/Vol] 31.0 mmol/L Normal 21-32 [facility] Comment on above: Order Comment: Campu s: M Performed By: #### L [id number] #### [facility] [address] [place] [address]76 Creatinine [Mass/Vol] 0.81 mg/dL Normal 0.5-1.4 [facility] Comment on above: Order Comment: Campu s: M Result Comment: NOTE NEW NORMAL RANGE DUE TO REAGENT CHANGE Patients receiving either N-Acetylcysteine (NAC) or Metamizole prior to venipuncture, may have falsely depressed results. Performed By: #### L [id number] #### [facility] [address] [place] [address] Glucose [Mass/Vol] 98 mg/dL Normal 70-100 [facility] Comment on above: Order Comment: Campu s: M Result Comment: 70-1 00- Normal Fasting; 100-125 Impaired Fasting; greater than 126 on more than one result- Diabetes. ADA guidelines. Results may be falsely elevated after the administration of Sulfapyridine. Results may be falsely depressed after the administration of Sulfasalazine. Performed By: #### L [id number] #### [facility] [address] [place] [address] Potassium [Moles/Vol] 3.4 mmol/L Low 3.5-5.1 [facility] Comment on above: Order Comment: Campu s: M Result Comment: Slig ht Hemolysis, Result may be affected. Performed By: #### L [id number] #### [facility] [address] [place] [address]671 Sodium [Moles/Vol] 142 mmol/L Normal 136-145 [facility] Comment on above: Order Comment: Campu s: M Performed By: #### L [id number] #### [facility] [address] [place] [address] 20875 Urea nitrogen [Mass/Vol] 32 mg/dL High 7-26 [facility] Comment on above: Order Comment: Campu s: M Performed By: #### L [id number] #### [facility] [address] [place] [address] Urea nitrogen/Creatinine [Mass ratio] 39 mg/mg High 15-24 [facility] Comment on above: Order Comment: Campu s: M Performed By: #### L [id number] #### [facility] [address] [place] [address] CBCon 11-14-2020 Erythrocyte distribution width (RBC) [Ratio] 15.4 % High 11-14.5 [facility] Comment on above: Order Comment: Campu s: M Performed By: #### L [id number] #### [facility] [address] [place] [address] Hematocrit (Bld) [Volume fraction] 33.3 % Low 41.0-53.0 [facility] Comment on above: Order Comment: Campu s: M Performed By: #### L [id number] #### [facility] [address] [place] [address] Hemoglobin (Bld) [Mass/Vol] 10.6 g/dL Low 13.5-17.5 [facility] Comment on above: Order Comment: Campu s: M Performed By: #### L [id number] #### [facility] [address] [place] [address] MCHC (RBC) [Mass/Vol] 31.8 g/dL Low 32.0-36.0 [facility] Comment on above: Order Comment: Campu s: M Performed By: #### L [id number] #### [facility] [address] [place] [address] MCV (RBC) [Entitic vol] 97.4 fL Normal 80.0-99.0 [facility] Comment on above: Order Comment: Campu s: M Performed By: #### L [id number] #### [facility] [address] [place] [address] Nucleated RBC/100 WBC (Bld) [Ratio] 0.0 % Normal Less than 1 [facility] Comment on above: Order Comment: Campu s: M Performed By: #### L [id number] #### [facility] [address] [place] [address] Platelet mean volume (Bld) [Entitic vol] 9.1 fL Low 9.4-12.4 [facility] Comment on above: Order Comment: Campu s: M Performed By: #### L [id number] #### [facility] [address] [place] [address] 28627 PLT 222 K/CU MM Normal 150-450 [facility] Comment on above: Order Comment: Campu s: M Performed By: #### L [id number] #### [facility] [address] [place] [address] 79261 RBC 3.42 M/CU MM Low 4.50-6.00 [facility] Comment on above: Order Comment: Campu s: M Performed By: #### L [id number] #### [facility] [address] [place], [place] [id number] WBC 9.3 K/CUMM Normal 4.5-11.0 [facility] Comment on above: Order Comment: Campu s: M Performed By: #### L [id number] #### [facility] [address] [place] [address] 38707 GFR ESTon 11-14-2020 IF AMER Greater than 60 Normal [facility] Comment on above: Order Comment: Campu s: M Performed By: #### L [id number], [id number] #### [facility] [address] [place] [address] 41039 IF non-AFR AMER Greater than 60 Normal [facility] Comment on above: Order Comment: Campu s: M Performed By: #### L [id number], L500.00553 #### [facility] [address] [place] [address] PROG.Lety 11-14-2020 PROG.CARD [facility] Patient Name: JAVIER DEGROOT [address] Date of : [address] [place] [id number] Unit Number: [id number] Progress Note-Cardiology Patient Status: REG RCR Attending Doctor: Andrea Ashley MD Service Date: 11/14/20 0644 See Addendum Progress Note-Cardiology ADVC Subjective Subjective: Patient sitting up in the chair this morning. Telemetry reveals atrial fibrillation with improved heart rates at 103 this morning; heart rates do dip down into the 80s and 90s now showing much improvement. Patient currently on Cardizem 120 3 times daily and metoprolol tartrate 75 twice daily which now is keeping patient's heart rate down. Objective Vital Signs: Weight: pounds Temperature 98.3, heart rate 80s to 90s up to 103 atrial fibrillation on telemetry, respirations 20, blood pressure 105/70 Lab Results: Lab 24hr (CBC/BMP Fishbone) 11/14/20 0437: [Embedded Image Not Available] Anion Gap 8, Est GFR ( Amer) Greater than 60, Est GFR (Non-Af Amer) Greater than 60 , BUN/Creatinine Ratio 39 H, Glucose 98, Total Calcium 9.3, RBC 3.42 L, MCV 97.4, MCHC 31.8 L, RDW 15.4 H, MPV 9.1 L, Nucleated RBCs 0.0 Radiology Impressions: Recent Impressions (LAST) ULTRASOUND - US KIDNEY 11/10 1015 Report Impression - Status: SIGNED Entered: 11/10/2020 1127 IMPRESSION: Hypoechoic lesions within both kidneys most likely representing mildly complex cysts. Nonobstructive left renal calculus. Negative for hydronephrosis. Impression By: JOHAN POND M.D. Exam: Awake, alert, oriented Skin [place], warm, dry Heart irregular irregular, S1, S2 Lungs diminished throughout, nonlabored respirations, clear Abdomen soft, obese, nontender, bowel sounds are present Trace bilateral lower extremity edema noted Assessment/Plan Assessment/Problem List: 1. Tachycardia Chest x-ray from 11/07/2020 Diffuse interstitial prominence with ill-defined opacities in both lung bases. Overall appearance has not significantly changed since 10/19/2020. Medications Metoprolol Tartrate 75 mg po bid Cardizem 120 mg po TID Digoxin 0.125 daily Lasix 40 mg IV q8h Prednisone 90 mg 3 times daily Eliquis 5 mg twice daily 640 mg IV twice daily atorvastatin 10 daily Laboratory data November 14, 2020 White blood count 9.3, hemoglobin 10.6, hematocrit 33.3, platelets 222 Sodium 142, potassium 3.4, chloride 103, CO2 31, BUN 32, creatinine 0.81, glucose 98 Laboratory data November 11, 2020 White blood count 13.3, hemoglobin 10.9, hematocrit 33.9, platelets 234 Sodium 143, potassium 3.5, chloride 105, CO2 32, BUN 25, creatinine 0.84, glucose 94 Phosphorus 4.2, magnesium 2.1, total bilirubin 0.7, AST 37, ALT 89, alkaline phosphatase 60, albumin 2.3 Assessment Hypokalemia-potassium 3.4 Tachycardia - improving with med changes Slightly elevated LFTs - off statin for now Covid 19 recovery History of Covid pneumonia Acute respiratory failure with hypoxia - improving Hyperlipidemia - statin held due to elevated LFT's Pulmonary artery hypertension Hypertension - controlled Moderate aortic insufficiency - monitored 4 times a year at [place] BPH Solitary lung nodule Bilateral PE, on long-term Eliquis Plan Telemetry in select specialties Supplement potassium with 40 of p.o. potassium today and then start potassium scheduled at 10 mEq daily Also will add Lopressor 5 mg IV every 4 hours as needed for heart rate greater than 110 or systolic blood pressure greater than 150 On Digoxin now Continue cardizem and metoprolol as ordered, monitor blood pressure closely Continue to diurese with lasix IV, check BMP in am to monitor renal function 2 g sodium restricted diet Intake and output, daily weights 3 patient sitting up in chair, denies complaints. No cardiac event.. Heart rate still remains slightly elevated. Staff continues to frequently hold either beta-brittany or Cardizem Cardizem increased this morning to 120 3 times daily. Patient's fluid balance definitely improving, lower bilateral lower extremities are shriveled without edema.. 3/2 patient is sitting up in chair without any complete. No cardiac events noted through the night. No ectopy heart rate remains in the 110 range even with increasing Cardizem to 120 mg 3 times daily. Lungs are clear, nonlabored respiration.. 3/3 Patient sitting up in chair. Edema to lower legs much improved along with improved respiratory status. Feels good. Legs tightening up, shriveling. Heart irreg-irreg, much improved rate from 90-low 100 range. Medications have been adjusted. PRN lopressor is on orders. Patient gets echocardiograms every four months at [facility]. Consider echocardiogram during this stay to monitor valvular disease with history of moderate aortic insufficiency. Denies complaints. 3/ patient currently on Cardizem 120 3 times daily and metoprolol tartrate 7 (more content not included)... Normal [facility] Progress Note-Cardiology Normal [facility] PROG.Lety 11-13-[address] Patient Name: JAVIER DEGROOT [address] Date of : [address] [place] [place] [address] Unit Number: [id number] Progress Note-Cardiology Patient Status: REG RCR Attending Doctor: Andrea Ashley MD Service Date: 11/13/20 1417 See Addendum Progress Note-Cardiology ADVC Subjective Subjective: Telemetry shows atrial fibrillation with heart rates 90-100 range, improved. Denies complaints of chest pain, shortness of breath. Nonlabored respirations noted. Objective Vital Signs: Weight: pounds T 97.9, HTR 85 - 90 atrial fibrillation, increases to low 100 range with exertion, R 28, BP 100/64 Radiology Impressions: Recent Impressions (LAST) ULTRASOUND - US KIDNEY 11/10 1015 Report Impression - Status: SIGNED Entered: 11/10/2020 1127 IMPRESSION: Hypoechoic lesions within both kidneys most likely representing mildly complex cysts. Nonobstructive left renal calculus. Negative for hydronephrosis. Impression By: JOHAN POND M.D. Exam: Awake, alert, oriented x3 Skin pink, warm, dry Heart irreg-irreg, S1, S2, ZHEN Lungs diminished, clear, nonlabored respirations Abdomen obese, soft, nontender, bowel sounds present No bilateral lower extremity edema Assessment/Plan Assessment/Problem List: 1. Tachycardia Chest x-ray from 11/07/2020 Diffuse interstitial prominence with ill-defined opacities in both lung bases. Overall appearance has not significantly changed since 10/19/2020. Medications Metoprolol Tartrate 75 mg po bid Cardizem 120 mg po TID Digoxin 0.125 daily Lasix 40 mg IV q8h Prednisone 90 mg 3 times daily Eliquis 5 mg twice daily 640 mg IV twice daily atorvastatin 10 daily Laboratory data November 11, 2020 White blood count 13.3, hemoglobin 10.9, hematocrit 33.9, platelets 234 Sodium 143, potassium 3.5, chloride 105, CO2 32, BUN 25, creatinine 0.84, glucose 94 Phosphorus 4.2, magnesium 2.1, total bilirubin 0.7, AST 37, ALT 89, alkaline phosphatase 60, albumin 2.3 Assessment Tachycardia - improving with med changes Slightly elevated LFTs - off statin for now Covid 19 recovery History of Covid pneumonia Acute respiratory failure with hypoxia - improving Hyperlipidemia - statin held due to elevated LFT's Pulmonary artery hypertension Hypertension - controlled Moderate aortic insufficiency - monitored 4 times a year at [place] BPH Solitary lung nodule Bilateral PE, on long-term Eliquis Plan Telemetry in select specialties Also will add Lopressor 5 mg IV every 4 hours as needed for heart rate greater than 110 or systolic blood pressure greater than 150 On Digoxin now Continue cardizem and metoprolol as ordered, monitor blood pressure closely Continue to diurese with lasix IV, check BMP in am to monitor renal function 2 g sodium restricted diet Intake and output, daily weights 3/ patient sitting up in chair, denies complaints. No cardiac event.. Heart rate still remains slightly elevated. Staff continues to frequently hold either beta-brittany or Cardizem Cardizem increased this morning to 120 3 times daily. Patient's fluid balance definitely improving, lower bilateral lower extremities are shriveled without edema.. 3/2 patient is sitting up in chair without any complete. No cardiac events noted through the night. No ectopy heart rate remains in the 110 range even with increasing Cardizem to 120 mg 3 times daily. Lungs are clear, nonlabored respiration.. 3/3 Patient sitting up in chair. Edema to lower legs much improved along with improved respiratory status. Feels good. Legs tightening up, shriveling. Heart irreg-irreg, much improved rate from 90-low 100 range. Medications have been adjusted. PRN lopressor is on orders. Patient gets echocardiograms every four months at [facility]. Consider echocardiogram during this stay to monitor valvular disease with history of moderate aortic insufficiency. Denies complaints. Collaborating Physician: George Botello MD Physician Attestation Statement of Attestation I confirm that I have evaluated the patient, reviewed the history and physical, medications, diagnostic results, physical exam, assessment and plan of care of the patient. ADDENDUM: GEORGE BOTELLO on 11/13/20 at 1612 As above. Patient is feeling well. In atrial fibrillation with now controlled ventricular rate. Ventricular rate in the 70s and 80s this afternoon. Pressure normal. Anticoagulated. Continue current regimen. Will leave echocardiographic study to be performed at [facility] where all the previous studies are and comparison can be carried out. Disclaimer This dictation was created using voice recognition software. Phonetic and/or minor grammatical errors may exist. eSign Date and Time George Botello MD Verified/Reviewed by 11/13/20 1613 Maria Elena Mobley CNP Verified/Reviewed by 11/13/20 1426 [facility] Progress Note-Cardiology Normal [facility] PROG.NOTEon 11-13-2020 PROG.NOTE [facility] Patient Name: JAVIER DEGROOT [address] Date of : [address] [place] [address] Unit Number: [id number] Progress Note-Physician Patient Status: REG RCR Attending Doctor: Andrea Ashley MD Service Date: 11/13/20 1135 Subjective S: (2 ROS minimum) Feeling well, no fever, no abd pain, no n/v/d, no dysuria. Objective (ROS) Physical Exam Neurological / Psychiatric Alert Respiratory Normal Breathing Effort, Clear Lungs Cardiovascular Heart RRR Gastrointestinal Non Tender, No Mass Skin No Rash Assessment and Plan Conclusion 1. Sepsis sepsis due to ecoli bacteremia from urinary source with recent covid - Narrowed to ceftriaxone, much improved. Abx to stop 11/16/20. Can change to po keflex 500mg tid if he leaves prior to 11/16. Will follow 2. Bacteremia due to Gram-negative bacteria Disclaimer This dictation was created using voice recognition software. Phonetic and/or minor grammatical errors may exist. eSign Date and Time Ame Maher MD Verified/Reviewed by 11/13/20 1136 [facility] Progress Note-Physician Normal [facility] [place] PROG.Lety 11-12-2020 PROG.SUMA [facility] Patient Name: JAVIER DEGROOT [address] Date of : [address] [place] [address] Unit Number: [id number] Progress Note-Cardiology Patient Status: REG RCR Attending Doctor: Andrea Ashley MD Service Date: 11/12/20 0639 See Addendum Progress Note-Cardiology [facility] Subjective Subjective: Patient sitting up in chair. Denies complaints of chest pain or shortness of breath. Currently atrial fib with heart rate 110. No cardiac events noted. No ectopy. Objective Vital Signs: Weight: pounds Afebrile, heart rate 110 atrial fibrillation, respirations 20, blood pressure 124/60 Radiology Impressions: Recent Impressions (LAST) ULTRASOUND - US KIDNEY 11/10 1015 Report Impression - Status: SIGNED Entered: 11/10/2020 1127 IMPRESSION: Hypoechoic lesions within both kidneys most likely representing mildly complex cysts. Nonobstructive left renal calculus. Negative for hydronephrosis. Impression By: JOHAN POND M.D. Exam: Awake, alert, oriented Skin [place], warm, dry No JVD noted Heart irregular irregular, S1, S2, no murmurs rubs or gallop Lungs essentially clear throughout, nonlabored respirations Abdomen soft, bowel sounds present, nontender No peripheral edema bilaterally noted Assessment/Plan Assessment/Problem List: 1. Tachycardia Chest x-ray from 11/07/2020 Diffuse interstitial prominence with ill-defined opacities in both lung bases. Overall appearance has not significantly changed since 10/19/2020. Medications Toprol tartrate 75 twice daily Digoxin 0.125 daily Prednisone 90 mg 3 times daily Eliquis 5 mg twice daily 640 mg IV twice daily atorvastatin 10 daily Laboratory data November 11, 2020 White blood count 13.3, hemoglobin 10.9, hematocrit 33.9, platelets 234 Sodium 143, potassium 3.5, chloride 105, CO2 32, BUN 25, creatinine 0.84, glucose 94 Phosphorus 4.2, magnesium 2.1, total bilirubin 0.7, AST 37, ALT 89, alkaline phosphatase 60, albumin 2.3 Assessment Tachycardia Slightly elevated LFTs Covid 19 recovery History of Covid pneumonia Acute respiratory failure with hypoxia Hyperlipidemia Pulmonary artery hypertension Hypertension Moderate aortic insufficiency BPH Solitary lung nodule Bilateral PE, on long-term Eliquis Plan Telemetry in select specialties Also will add Lopressor 5 mg IV every 4 hours as needed for heart rate greater than 110 or systolic blood pressure greater than 150 2 g sodium restricted diet Intake and output, daily weights 11/11 patient sitting up in chair, denies complaints. No cardiac event.. Heart rate still remains slightly elevated. Staff continues to frequently hold either beta-brittany or Cardizem Cardizem increased this morning to 120 3 times daily. Patient's fluid balance definitely improving, lower bilateral lower extremities are shriveled without edema.. 11/12 patient is sitting up in chair without any complete. No cardiac events noted through the night. No ectopy heart rate remains in the 110 range even with increasing Cardizem to 120 mg 3 times daily. Lungs are clear, nonlabored respiration.. Collaborating Physician: George Botello MD Physician Attestation Statement of Attestation I confirm that I have evaluated the patient, reviewed the history and physical, medications, diagnostic results, physical exam, assessment and plan of care of the patient. ADDENDUM: GEORGE BOTELLO on 11/12/20 at 1823 As above. Patient's ventricular rate is controlled this afternoon. Anticoagulated. Plan on current medication continuation. Disclaimer This dictation was created using voice recognition software. Phonetic and/or minor grammatical errors may exist. eSign Date and Time George Botello MD Verified/Reviewed by 11/12/20 1823 Maria Elena Mobley ASSOCIATE PROFESSOR OF HISTORY Verified/Reviewed by 11/12/20 1509 Normal [facility] Progress Note-Cardiology Normal [facility] CBC W/DIFFon 11-11-2020 BASO ABS 0.10 K/CU MM Normal 0-0.2 [facility] Comment on above: Order Comment: Yamil Mckeon Performed By: #### L 500.28177, L500.86026 #### [facility] [address] [place] [address] Basophils/100 WBC (Bld) 0.5 % Normal 0-2 [facility] Comment on above: Order Comment: Campu s: M Performed By: #### L 500.69336, L500.54631 #### [facility] [address] [place] [address] EOS ABS 0.10 K/CU MM Normal 0-0.5 [facility] Comment on above: Order Comment: Campu s: M Performed By: #### L 500.46590, L500.47230 #### [facility] [address] [place] [address] Eosinophils/100 WBC (Bld) 0.5 % Normal 0-5 [facility] Comment on above: Order Comment: Campu s: M Performed By: #### L 500.79856, L500.20536 #### [facility] [address] [place] [address] Erythrocyte distribution width (RBC) [Ratio] 15.3 % High 11-14.5 [facility] Comment on above: Order Comment: Campu s: M Performed By: #### L 500.57984, L500.15955 #### [facility] [address] [place] [address] Hematocrit (Bld) [Volume fraction] 33.9 % Low 41.0-53.0 [facility] Comment on above: Order Comment: Campu s: M Performed By: #### L 500.16070, L500.86562 #### [facility] [address] [place] [address] Hemoglobin (Bld) [Mass/Vol] 10.9 g/dL Low 13.5-17.5 [facility] Comment on above: Order Comment: Campu s: M Performed By: #### L 500.92207, L500.32058 #### [facility] [address] [place] [address] IMMATR GRAN ABS 0.30 K/CU MM Normal Less than 2 [facility] Comment on above: Order Comment: Campu s: M Performed By: #### L 500.65803, L500.90912 #### [facility] [address] [place] [address] IMMATURE GRAN % 1.9 % Normal Less than 2 [facility] Comment on above: Order Comment: Campu s: M Performed By: #### L 500.26013, L500.01909 #### [facility] [address] [place] [address] LYMPH ABS 1.50 K/CU MM Normal 0.9-4.4 [facility] Comment on above: Order Comment: Campu s: M Performed By: #### L 500.61409, L5.19145 #### [facility] [address] [place] [address] Lymphocytes/100 WBC (Bld) 10.9 % Low 20-40 [facility] Comment on above: Order Comment: Campu s: M Performed By: #### L 500.36208, L500.43523 #### [facility] [address] [place] [address] MCHC (RBC) [Mass/Vol] 32.2 g/dL Normal 32.0-36.0 [facility] Comment on above: Order Comment: Campu s: M Performed By: #### L 500.26473, L500.73374 #### [facility] [address] [place] [address] MCV (RBC) [Entitic vol] 96.3 fL Normal 80.0-99.0 [facility] Comment on above: Order Comment: Campu s: M Performed By: #### L 500.23398, L500.92765 #### [facility] [address] [place] [address] MONO ABS 0.70 K/CU MM Normal 0.1-1.1 [facility] Comment on above: Order Comment: Campu s: M Performed By: #### L 500.29096, L500.55635 #### [facility] [address] [place] [address] Monocytes/100 WBC (Bld) 5.0 % Normal 2-10 [facility] Comment on above: Order Comment: Campu s: M Performed By: #### L 500.97094, L500.37200 #### [facility] [address] [place] [address] NEUTROPHIL ABS 10.80 K/CU MM High 2.0-8.3 [facility] Comment on above: Order Comment: Campu s: M Performed By: #### L 500.93215, L500.03802 #### [facility] [address] [place] [address] Neutrophils/100 WBC (Bld) 81.2 % High 45-75 [facility] Comment on above: Order Comment: Campu s: M Performed By: #### L 500.56483, L500.82818 #### [facility] [address] [place] [address] Nucleated RBC/100 WBC (Bld) [Ratio] 0.0 % Normal Less than 1 [facility] Comment on above: Order Comment: Campu s: M Performed By: #### L 500.83889, L500.63147 #### [facility] [address] [place] [address] Platelet mean volume (Bld) [Entitic vol] 9.3 fL Low 9.4-12.4 [facility] Comment on above: Order Comment: Campu s: M Performed By: #### L 500.84743, L500.31656 #### [facility] [address] [place], [place] [id number] PLT 234 K/CU MM Normal 150-450 [facility] Comment on above: Order Comment: Campu s: M Performed By: #### L 500.46628, L500.28437 #### [facility] [place] [id number] RBC 3.52 M/CU MM Low 4.50-6.00 [facility] Comment on above: Order Comment: Campu s: M Performed By: #### L 500.22820, L500.92703 #### [facility] [address] [place] [address] WBC 13.3 K/CUMM High 4.5-11.0 [facility] Comment on above: Order Comment: Campu s: M Performed By: #### L 500.35141, L5.03383 #### [facility] [address] [place] [address] CMPon 11-11-2020 Albumin [Mass/Vol] 2.3 g/dL Low 3.2-5.0 [facility] Comment on above: Order Comment: Campu s: M Performed By: #### L 500.96197, L500.56701 #### [facility] [address] [place] [address] Albumin/Globulin [Mass ratio] 0.7 {ratio} Low 0.8-2.0 [facility] Comment on above: Order Comment: Campu s: M Performed By: #### L 500.84841, L5.94525 #### [facility] [address] [place], [place] [address] ALK PHOS 60 U/L Normal 45-117 [facility] Comment on above: Order Comment: Campu s: M Performed By: #### L 500.45126, L500.94356 #### [facility] [address] [place] [address] ALT [Catalytic activity/Vol] 89 U/L High 13-61 [facility] Comment on above: Order Comment: Campu s: M Result Comment: RESU LTS MAY BE FALSELY DEPRESSED AFTER THE ADMINISTRATION OF SULFASALAZINE AND/OR SULFAPYRIDINE. Performed By: #### L 500.66275, L500.01583 #### [facility] [address] [place] [address] Anion gap [Moles/Vol] 6 mmol/L Normal 5-16 [facility] Comment on above: Order Comment: Campu s: M Performed By: #### L 500.33513, L5.80429 #### [facility] [address] [place] [address] AST [Catalytic activity/Vol] 37 U/L High 8-34 [facility] Comment on above: Order Comment: Campu s: M Result Comment: RESU LTS MAY BE FALSELY DEPRESSED AFTER THE ADMINISTRATION OF SULFASALAZINE AND/OR SULFAPYRIDINE. Performed By: #### L 500.23198, L5.68264 #### [facility] [address] [place] [address] BILI TOTAL 0.70 MG/DL Normal 0.2-1.0 [facility] Comment on above: Order Comment: Campu s: M Performed By: #### L 500.49531, L5.33504 #### [facility] [address] [place] [address] Calcium [Mass/Vol] 9.6 mg/dL Normal 8.5-10.5 [facility] Comment on above: Order Comment: Campu s: M Result Comment: NOTE NEW NORMAL RANGE DUE TO REAGENT CHANGE Performed By: #### L 500.38386, L500.79998 #### [facility] [address] [place] [address] Chloride [Moles/Vol] 105 mmol/L Normal 98-107 [facility] Comment on above: Order Comment: Campu s: M Performed By: #### L 500.61980, L500.61311 #### [facility] [address] [place] [address] CO2 [Moles/Vol] 32.0 mmol/L Normal 21-32 [facility] Comment on above: Order Comment: Maxu s: M Performed By: #### L 500.16014, L500.73420 #### [facility] [address] [place] [address] Creatinine [Mass/Vol] 0.84 mg/dL Normal 0.5-1.4 [facility] Comment on above: Order Comment: Campu s: M Result Comment: NOTE NEW NORMAL RANGE DUE TO REAGENT CHANGE Patients receiving either N-Acetylcysteine (NAC) or Metamizole prior to venipuncture, may have falsely depressed results. Performed By: #### L 500.14542, L500.06365 #### [facility] [address] [place] [address] Globulin (S) [Mass/Vol] 3.2 g/dL Normal 2.2-4.2 [facility] Comment on above: Order Comment: Campu s: M Performed By: #### L 500.60301, L500.69929 #### [facility] [address] [place] [address] Glucose [Mass/Vol] 96 mg/dL Normal 70-100 [facility] Comment on above: Order Comment: Campu s: M Result Comment: 70-1 00- Normal Fasting; 100-125 Impaired Fasting; greater than 126 on more than one result- Diabetes. ADA guidelines. Results may be falsely elevated after the administration of Sulfapyridine. Results may be falsely depressed after the administration of Sulfasalazine. Performed By: #### L 500.13517, L500.65153 #### [facility] [address] [place] [address] Potassium [Moles/Vol] 3.5 mmol/L Normal 3.5-5.1 [facility] Comment on above: Order Comment: Campu s: M Result Comment: Slig ht Hemolysis, Result may be affected. Performed By: #### L 500.59454, L500.19943 #### [facility] [address] [place] [address] Protein [Mass/Vol] 5.5 g/dL Low 6.0-8.5 [facility] Comment on above: Order Comment: Campu s: M Performed By: #### L 500.92559, L500.48125 #### [facility] [address] [place] [address] Sodium [Moles/Vol] 143 mmol/L Normal 136-145 [facility] Comment on above: Order Comment: Campu s: M Performed By: #### L 500.93076, L500.48540 #### [facility] [address] [place] [address] Urea nitrogen [Mass/Vol] 25 mg/dL Normal 7-26 [facility] Comment on above: Order Comment: Campu s: M Performed By: #### L 500.32863, L500.27121 #### [facility] [address] [place] [address] Urea nitrogen/Creatinine [Mass ratio] 30 mg/mg High 15-24 [facility] Comment on above: Order Comment: Campu s: M Performed By: #### L 500.22685, L500.39173 #### [facility] [address] [place] [address] GFR ESTon 11-11-2020 IF AMER Greater than 60 Normal [facility] Comment on above: Order Comment: Campu s: M Performed By: #### L 500.24720, L500.19172 #### [facility] [address] [place] [address] IF non-AFR AMER Greater than 60 Normal [facility] Comment on above: Order Comment: Campu s: M Performed By: #### L 500.12316, L500.80085 #### [facility] [address] [place] [address] MAGNESIUMon 11-11-2020 MAGNESIUM 2.1 MG/CL Normal 1.6-2.6 [facility] Comment on above: Order Comment: Yamil s: M Performed By: #### L 500.30906, L500.99096 #### [facility] [address] [place] [address] PHOSon 11-11-2020 Phosphate [Mass/Vol] 4.20 mg/dL Normal 2.5-4.9 [facility] Comment on above: Order Comment: Yamil s: M Result Comment: Elev ated m-protein (paraprotein) levels in the serum may be exhibited in patients with monoclonal gammopathies, causing falsely elevated inorganic phosphorus results. Performed By: #### L 500.39991, L500.24295 #### [facility] [address] [place] [address] PROG.Lety 11-11-2020 PROG.CARD [facility] Patient Name: JAVIER DEGROOT [address] [place] [address] Date of : [address] [place] [address] Unit Number: [id number] Progress Note-Cardiology Patient Status: REG RCR Attending Doctor: Andrea Ashley MD Service Date: 11/11/20715 See Addendum Progress Note-Cardiology [facility] Subjective Subjective: Sitting up in chair. Denies complaints of chest pain or shortness of breath. No cardiac events noted overnight. Remains atrial fib heart rate in the 112 range nonlabored respirations.. Objective Vital Signs: Weight: pounds Afebrile, heart rate 112, respirations 20, blood pressure 104/61, 91% on 8 L of nasal cannula Lab Results: Lab 24hr (CBC/BMP Fishbone) 11/11/20 0428: [Embedded Image Not Available] Anion Gap 6, Est GFR ( Amer) Greater than 60, Est GFR (Non-Af Amer) Greater than 60 , BUN/Creatinine Ratio 30 H, Glucose 96, Total Calcium 9.6, Phosphorus 4.20, Magnesium 2.1 , Total Bilirubin 0.70, AST 37 H, ALT 89 H, Alkaline Phosphatase 60, Serum Total Protein 5.5 L, Albumin 2.3 L, Globulin 3.2, Albumin/Globulin Ratio 0.7 L, RBC 3.52 L, MCV 96.3, MCHC 32.2, RDW 15.3 H, MPV 9.3 L, Immature Gran % (Auto) 1.9, Abs Immat Gran (auto) 0.30, Seg Neutrophils % 81.2 H, Lymphocytes % 10.9 L, Monocytes % 5.0, Eosinophils % 0.5, Basophils % 0.5, Neutrophils # 10.80 H, Lymphocytes # 1.50, Monocytes # 0.70, Eosinophils # 0.10, Basophils # 0.10, Nucleated RBCs 0.0 Radiology Impressions: Recent Impressions (LAST) ULTRASOUND - US KIDNEY 11/10 1015 Report Impression - Status: SIGNED Entered: 11/10/2020 1127 IMPRESSION: Hypoechoic lesions within both kidneys most likely representing mildly complex cysts. Nonobstructive left renal calculus. Negative for hydronephrosis. Impression By: JOHAN POND M.D. Exam: Awake, alert, oriented Skin [place], warm, dry No JVD noted Heart irregular, irregular, S1, S2 Very fine crackles at the right lower lobe posteriorly, nonlabored respirations, other lung miller clear Abdomen obese, soft, nontender, bowel sounds are present No edema noted, bilateral lower extremities appear shriveled Assessment/Plan Assessment/Problem List: 1. Tachycardia Chest x-ray from 11/07/2020 Diffuse interstitial prominence with ill-defined opacities in both lung bases. Overall appearance has not significantly changed since 10/19/2020. Medications Toprol tartrate 75 twice daily Digoxin 0.125 daily Prednisone 90 mg 3 times daily Eliquis 5 mg twice daily 640 mg IV twice daily atorvastatin 10 daily Laboratory data November 11, 2020 White blood count 13.3, hemoglobin 10.9, hematocrit 33.9, platelets 234 Sodium 143, potassium 3.5, chloride 105, CO2 32, BUN 25, creatinine 0.84, glucose 94 Phosphorus 4.2, magnesium 2.1, total bilirubin 0.7, AST 37, ALT 89, alkaline phosphatase 60, albumin 2.3 Assessment Tachycardia Slightly elevated LFTs Covid 19 recovery History of Covid pneumonia Acute respiratory failure with hypoxia Hyperlipidemia Pulmonary artery hypertension Hypertension Moderate aortic insufficiency BPH Solitary lung nodule Bilateral PE, on long-term Eliquis Plan Telemetry in select specialties Will increase Cardizem to 1200 mg 3 times daily Also will add Lopressor 5 mg IV every 4 hours as needed for heart rate greater than 110 or systolic blood pressure greater than 150 2 g sodium restricted diet Intake and output, daily weights 3/ patient sitting up in chair, denies complaints. No cardiac event.. Heart rate still remains slightly elevated. Staff continues to frequently hold either beta-brittany or Cardizem Cardizem increased this morning to 120 3 times daily. Patient's fluid balance definitely improving, lower bilateral lower extremities are shriveled without edema.. Collaborating Physician: George Botello MD Physician Attestation Statement of Attestation I confirm that I have evaluated the patient, reviewed the history and physical, medications, diagnostic results, physical exam, assessment and plan of care of the patient. ADDENDUM: GEORGE BOTELLO on 11/11/20 at 1606 As above. Patient in atrial fibrillation. Reticular rate is improved after increasing the Cardizem 220 mg 3 times daily. Patient without symptoms. Blood pressure is stable. Anticoagulated. Continue current regimen. Disclaimer This dictation was created using voice recognition software. Phonetic and/or minor grammatical errors may exist. eSign Date and Time George Botello MD Verified/Reviewed by 11/11/20 1607 Maria Elena Mobley ASSOCIATE PROFESSOR OF HISTORY Verified/Reviewed by 11/11/20 0918 Normal [facility] Progress Note-Cardiology Normal [facility] DIGOXINon 11-10-2020 Digoxin [Mass/Vol] 0.63 ng/mL Normal 0.1-2.0 [facility] Comment on above: Order Comment: Yamil tilley: Mike Performed By: #### L 200.15904 #### [facility] [address] [place] [address] PROG.IDon 11-10-2020 PROG.ID [facility] Patient Name: JAVIER DEGROOT [address] Date of : [address] [place] [address] Unit Number: [id number] Progress Note-Infectious Dis Patient Status: REG RCR Attending Doctor: Andrea Ashley MD Service Date: 11/10/20 1036 Progress Note-Infectious Dis Subjective Subjective: Covering for Dr. Maher. Patient with no fevers or chills. Denies abdominal pain, nausea, vomiting, or diarrhea. No acute events. Objective Vital Signs: Afebrile Temperature 98.7 Heart rate 105 Respirations 26 Blood pressure 104/61 91% on 8 L nasal cannula. Physical Exam: Up in chair. Alert and oriented. No acute distress. Nasal cannula. Irregular rhythm. Systolic murmur. Mild right base crackles. No respiratory distress. Abdomen obese, soft, nontender. Williamson catheter in place. No significant lower extremity edema. Lab Results: Lab 24hr (CBC/BMP Fishbone) 11/10/20 0511: Digoxin 0.63 11/09/20 1745: [Embedded Image Not Available] Assessment/Plan Assessment/Problem List: 1. Sepsis E. coli bacteremia, suspect due to UTI. Blood and urine cultures came back with E. coli. We will de-escalate from Zosyn to ceftriaxone. Patient looks stable from ID standpoint. On Wed 11:06a Nov 08, 2020 AME MAHER wrote sepsis due to GNR bacteremia with recent covid - Suspected urinary source. Cont zosyn. Recommend bladder scan if not done as he may be retaining with h/o BPH. Will follow 2. Bacteremia due to Gram-negative bacteria Disclaimer This dictation was created using voice recognition software. Phonetic and/or minor grammatical errors may exist. eSign Date and Time Jasiel Bey MD Verified/Reviewed by 11/10/20 1038 [facility] Progress Note-Infectious Dis [facility] BLOOD CULTUREon 11-09-2020 Bacteria identified Cx Nom (Bld) INITIAL POSITIVE BLOOD CULTURE RESULTS CALLED TO AND READ BACK BY Carley WHITING RN/LTAC AT 6833 11/07/20 BY SHERRI ANDRADE ORGANISM 1: ESCHERICHIA COLI ESCHERICHIA COLI: REACTION AMPICILLIN >16 R AMP/SULBACTAM (UNASYN) >16/8 R AUGMENTIN (AMOX/K CLVULANATE) <8/4 S AZTREONAM <4 S CEFAZOLIN 4 S CEFEPIME <2 S CEFOTAXIME <2 S CEFOTETAN <16 S CIPROFLOXACIN <1 S GENTAMICIN <4 S MINOCYCLINE >8 R ERTAPENEM <0.5 S PIPERACILLIN/TAZOBACTAM <16 S TETRACYCLINE >8 R TOBRAMYCIN <4 S TRIMETH/SULFA <2/38 S LEVOFLOXACIN <2 S MEROPENEM <1 S Normal [facility] Comment on above: Order Comment: Campu s: M Performed By: #### L 200.58211 #### [facility] [address] [place] [address] BMPon 11-09-2020 Anion gap [Moles/Vol] 5 mmol/L Normal 5-16 [facility] Comment on above: Order Comment: Campu s: M Performed By: #### L 500.22852, L500.39300 #### [facility] [address] [place] [address] Calcium [Mass/Vol] 8.7 mg/dL Normal 8.5-10.5 [facility] Comment on above: Order Comment: Campu s: M Result Comment: NOTE NEW NORMAL RANGE DUE TO REAGENT CHANGE Performed By: #### L 500.34371, L500.35170 #### [facility] [address] [place] [address] Chloride [Moles/Vol] 106 mmol/L Normal 98-107 [facility] Comment on above: Order Comment: Campu s: M Performed By: #### L 500.89085, L500.16026 #### [facility] [address] [place] [address] CO2 [Moles/Vol] 31.0 mmol/L Normal 21-32 [facility] Comment on above: Order Comment: Campu s: M Performed By: #### L 500.91189, L500.33298 #### [facility] [address] [place] [address] Creatinine [Mass/Vol] 0.87 mg/dL Normal 0.5-1.4 [facility] Comment on above: Order Comment: Campu s: M Result Comment: NOTE NEW NORMAL RANGE DUE TO REAGENT CHANGE Patients receiving either N-Acetylcysteine (NAC) or Metamizole prior to venipuncture, may have falsely depressed results. Performed By: #### L 500.78094, L500.78810 #### [facility] [address] [place] [address] Glucose [Mass/Vol] 121 mg/dL High 70-100 [facility] Comment on above: Order Comment: Campu s: M Result Comment: 70-1 00- Normal Fasting; 100-125 Impaired Fasting; greater than 126 on more than one result- Diabetes. ADA guidelines. Results may be falsely elevated after the administration of Sulfapyridine. Results may be falsely depressed after the administration of Sulfasalazine. Performed By: #### L 500.12619, L500.24000 #### [facility] [address] [place] [address] Potassium [Moles/Vol] 3.0 mmol/L Low 3.5-5.1 [facility] Comment on above: Order Comment: Campu s: M Result Comment: Slig ht Hemolysis, Result may be affected. Performed By: #### L 500.12264, L500.23985 #### [facility] [address] [place] [address] Sodium [Moles/Vol] 142 mmol/L Normal 136-145 [facility] Comment on above: Order Comment: Campu s: M Performed By: #### L 500.73352, L500.91265 #### [facility] [address] [place], [place] [address] Urea nitrogen [Mass/Vol] 21 mg/dL Normal 7-26 [facility] Comment on above: Order Comment: Campu s: M Performed By: #### L 500.65642, L500.81323 #### [facility] [address] [place] [address] Urea nitrogen/Creatinine [Mass ratio] 24 mg/mg Normal 15-24 [facility] Comment on above: Order Comment: Campu s: M Performed By: #### L 500.75980, L500.37652 #### [facility] [address] [place], [place] [address] GFR ESTon 11-09-2020 IF AMER Greater than 60 Normal [facility] Comment on above: Order Comment: Campu s: M Performed By: #### L 500.07712, L500.69628 #### [facility] [address] [place] [address] IF non-AFR AMER Greater than 60 Normal [facility] Comment on above: Order Comment: Campu s: M Performed By: #### L 500.12149, L500.51381 #### [facility] [address] [place] [address] Romero 11-09-2020 Potassium [Moles/Vol] 4.5 mmol/L Normal 3.5-5.1 [facility] Comment on above: Order Comment: Campu s: M Result Comment: Slig ht Hemolysis, Result may be affected. Performed By: #### L 200.77016 #### [facility] [address] [place], [place] [address] RESP/SPUT CULTon 11-09-2020 RESP/SPUT CULT GRAM STAIN MANY WBC'S FEW EPITHELIAL CELLS MANY GRAM POSITIVE COCCI MANY GRAM NEGATIVE BACILLUS FEW YEAST RESPIRATORY RESULT MANY NORMAL SHARLENE Normal [facility] Comment on above: Order Comment: Campu s: M Performed By: #### L 200.92221 #### [facility] [address] [place], [place] [address] URINE CULTUREon 11-09-2020 Bacteria identified Cx Nom (U) ORGANISM 1: ESCHERICHIA COLI COLONY COUNT >100,000 ESCHERICHIA COLI: REACTION AMIKACIN <16 S AMPICILLIN >16 R AZTREONAM <4 S CEFAZOLIN 4 S CEFEPIME <2 S CEFOTAXIME <2 S CEFOTETAN <16 S CEFTAZIDIME <1 S CIPROFLOXACIN <1 S GENTAMICIN <4 S MINOCYCLINE >8 R ERTAPENEM <0.5 S NITROFURANTOIN <32 S PIPERACILLIN/TAZOBACTAM <16 S TOBRAMYCIN <4 S TRIMETH/SULFA <2/38 S LEVOFLOXACIN <2 S MEROPENEM <1 S [facility] Comment on above: Performed By: #### M 100.05455 ####[facility] [id number] [place] [address]Dk# [phone] BLOOD CULTUREon 11-08-2020 Bacteria identified Cx Nom (Bld) INITIAL POSITIVE BLOOD CULTURE RESULTS CALLED TO AND READ BACK [place] [address]/07/20 BY SHERRI ANDRADE ORGANISM 1: GRAM NEGATIVE BACILLUS ID TO FOLLOW SEE [id number] FOR ID/SENSITIVITY Normal [facility] Comment on above: Order Comment: Yamil s: M: SPUTUM CULTURE Performed By: #### M 050.44555 ####[facility] [id number] [place] [address]Du# [phone] PBNP TESTon 11-08-2020 Natriuretic peptide B (Bld) [Mass/Vol] 1264 pg/mL High 0-450 [facility] Comment on above: Order Comment: Yamil s: M Result Comment: NT-p roBNP results of less than 300 pg/ml likely rules out acute congestive heart failure with 99% predictive value. NOTE: These cuttoff points are suggested for ACUTE CHF DIAGNOSIS only Less than 50 years Greater than 450 pg/ml 50-75 years Greater than 900 pg/ml Greater than 75 years Greater than 1800 pg/ml NOTE NEW NORMAL RANGE Performed By: #### L 200.40518 #### [facility] [address] [place] [address] PROG.Lety 11-08-2020 PROG.CARD [facility] Patient Name: JAVIER DEGROOT [address] [place] [address] Date of : [address] [id number] Unit Number: [id number] Progress Note-Cardiology Patient Status: REG RCR Attending Doctor: Andrea Aslhey MD Service Date: 11/08/20 1411 See Addendum Progress Note-Cardiology ADVC Subjective Subjective: Patient sitting up in chair. Offers no complaints. No cardiac events noted last year. On telemetry remains atrial fib heart rate in the 110 to 120s. His urine culture tested positive for gram-negative bacilli and patient was started on Zosyn and has been seen by infectious disease. Infectious disease is asking for a bladder scan for post void residual and urinary retention. Objective Vital Signs: Weight: pounds Temperature 99.1, heart rate 111 to 120 atrial fibrillation, respirations 28, blood pressure 103/64 Lab Results: Lab 24hr (CBC/BMP Fishbone) 11/08/20 1152: TSH, Ultra Sensitive 2.104 11/08/20 1152: Lsw-Q-Eiedyzxpsbn Pept 1264 H Exam: Skin [place] warm and dry Alert and oriented Heart irregular irregular, S1, S2 Diminished throughout, nonlabored respirations Abdomen soft, nontender, bowel sounds present No bilateral lower extremity edema Assessment/Plan Assessment/Problem List: 1. Tachycardia Chest x-ray from 11/07/2020 Diffuse interstitial prominence with ill-defined opacities in both lung bases. Overall appearance has not significantly changed since 10/19/2020. Medications on admission Eliquis 5 mg twice daily Lipitor 10 mg every night Cardizem CD 240 mg daily -resume Cardizem at 30 mg p.o. 4 times daily/was increased to 60 mg p.o. 4 times daily Lasix 40 mg twice daily Metoprolol tartrate 100 mg twice daily -reduce to 50 mg twice daily -resume at 50 mg p.o. twice daily Laboratory data 11/08/2020 proBNP 1264 Laboratory data November 07 White blood count 17.3, hemoglobin 12.0, hematocrit 37.7, platelets 246 Sodium 140, potassium 3.9, chloride 100, CO2 32, BUN 23, creatinine 0.79, glucose 127 Total calcium 9.6, phosphorus 3.40, magnesium 1.9 Total bilirubin 0.9, AST 19, ALT 42, alkaline phosphatase 65 Albumin 2.4 Assessment Tachycardia Covid 19 recovery History of Covid pneumonia Acute respiratory failure with hypoxia Hyperlipidemia Pulmonary artery hypertension Hypertension Moderate aortic insufficiency BPH Solitary lung nodule Bilateral PE, on long-term Eliquis Plan Telemetry in select specialties Cardizem increased yesterday to 60 mg 4 times daily with improvement of heart rate Also will add Lopressor 5 mg IV every 4 hours as needed for heart rate greater than 110 or systolic blood pressure greater than 150 2 g sodium restricted diet Intake and output, daily weights Cardiac medications were being held due to hypotension with systolic blood pressures being less than 120; patient has a component of rebound effect at this time becoming very tachycardic in the 130-170 range. Cardizem drip was not initiated due to again hypotension with a systolic less than 120. Patient is alert, sitting in the chair, in no distress, tachycardic. Will resume metoprolol 50 mg twice daily with a hold rate of less than 100 systolic blood pressure. Will change the Cardizem to 30 mg p.o. 4 times daily with a hold rate of less than 100 systolic. Need to replace the potassium due to level at 3.2 today 11/07 no cardiac events noted overnight remains atrial fibrillation heart rate in the 90s. Blood pressure in the low 100s over 40. Denies complaints of chest pain or shortness of breath. No ectopy per telemetry no bradycardia per telemetry. Cardizem was increased to 60 mg p.o. 4 times daily yesterday with improvement of heart rates today. Patient is currently sitting up at side of bed and is active without increased tachycardia. 11/08 heart rate when up is 110 to 120; no complaints of chest pain or shortness of breath. Remains in atrial fibrillation. Cardizem was increased to 60 mg p.o. 4 times daily yesterday. We will add as needed Lopressor 5 mg IV every 4 hours for heart rate greater than 110 and monitor blood pressure closely. Collaborating Physician: George Botello MD Physician Attestation Statement of Attestation I confirm that I have evaluated the patient, reviewed the history and physical, medications, diagnostic results, physical exam, assessment and plan of care of the patient. ADDENDUM: GEORGE BOTELLO on 11/08/20 at 1545 As above. Patient remains in atrial fibrillation with improved ventricular rate. However at times the rate is still going into the 110s to 120s range. This generally happens with activity. Patient is tolerating it well. Blood pressure remains in the 90s systolic. However it has been stable. We will increase the Cardizem to 90 mg 3 times daily to try to improve the ventricular rate further. If he remains in rapid atrial fibrillation, will add amiodarone to the regimen (more content not included)... Normal [facility] Progress Note-Cardiology Normal [facility] PROG.NOTEon 11-08-2020 PROG.NOTE [facility] Patient Name: JAVIER DEGROOT [address] [facility] [address] Date of : [address] [place], [place] [address] Unit Number: [id number] Progress Note-Physician Patient Status: REG RCR Attending Doctor: Andrea Ashley MD Service Date: 11/08/20 1105 Subjective S: (2 ROS minimum) Feeling better, no fever, no abd pain Objective (ROS) Physical Exam Neurological / Psychiatric Alert Respiratory Normal Breathing Effort, Clear Lungs Cardiovascular Heart RRR Gastrointestinal Non Tender, No Mass Skin No Rash Assessment and Plan Conclusion 1. Sepsis sepsis due to GNR bacteremia with recent covid - Suspected urinary source. Cont zosyn. Recommend bladder scan if not done as he may be retaining with h/o BPH. Will follow 2. Bacteremia due to Gram-negative bacteria Disclaimer This dictation was created using voice recognition software. Phonetic and/or minor grammatical errors may exist. eSign Date and Time Ame Maher MD Verified/Reviewed by 11/08/20 1106 Normal [facility] Progress Note-Physician Normal [facility] TSHon 11-08-2020 TSH 2.104 UIU/ML Normal 0.358-3.740 [facility] Comment on above: Order Comment: Yamil s: M Result Comment: 3rd generation ultra sensitive TSH Performed By: #### L 500.70534, L500.37917 #### [facility] [address] [place] [address] ABGPon 11-07-2020 ABG BE 6.0 MML/L High -2.0-2.0 [facility] Comment on above: Order Comment: Yamil s: M Performed By: #### L 500.93207, L500.34989 #### [facility] [address] [place] [address] ABG COHBA 0.3 % Normal 0-10 [facility] Comment on above: Order Comment: Campu s: M Performed By: #### L 500.38366, L500.01348 #### [facility] [place] [address] ABG MET 0.1 % Low 0.4-1.5 [facility] Comment on above: Order Comment: Campu s: M Performed By: #### L 500.22231, L5.89394 #### [facility] [address] [place], [place] [address] ABG O2 CAPACITY 16.1 mL/dL Normal [facility] Comment on above: Order Comment: Campu s: M Performed By: #### L 500.60381, L5.00702 #### [facility] [address] [place], [place] [address] ABG O2 CONTENT 15.1 mL/dL Low 15.7-21.6 [facility] Comment on above: Order Comment: Campu s: M Performed By: #### L 500.22769, L5.56506 #### [facility] [address] [place], [place] [address] ABG O2HB SAT 92.6 % Normal 90-100 [facility] Comment on above: Order Comment: Campu s: M Performed By: #### L 500.89178, L500.56251 #### [facility] [address] [place] [address] ABG PCO2 34.9 MMHG Low 35-45 [facility] Comment on above: Order Comment: Campu s: M Performed By: #### L 500.37914, L500.95409 #### [facility] [address] [place], [place] [address] ABG PH 7.53 High 7.35-7.45 [facility] Comment on above: Order Comment: Campu s: M Performed By: #### L 500.80582, L500.45393 #### [facility] [address] [place], [place] [address] ABG PO2 57 MMHG Low 80-100 [facility] Comment on above: Order Comment: Campu s: M Performed By: #### L 500.74604, L500.68516 #### [facility] [address] [place] [address] ABG REDUCED HGB 7.0 % High 0-5 [facility] Comment on above: Order Comment: Campu s: M Performed By: #### L 500.33281, L5.45999 #### [facility] [address] [place] [address] RIN TEST Positive Normal [facility] Comment on above: Order Comment: Campu s: M Performed By: #### L 500.11910, L500.97083 #### [facility] [address] [place] [address] Body temperature 98.6 [degF] Normal [facility] Comment on above: Order Comment: Campu s: M Performed By: #### L 500.01881, L500.83424 #### [facility] [address] [place] [address] EPAP 5.0 CMH2O Normal [facility] Comment on above: Order Comment: Campu s: M Performed By: #### L 500.31164, L500.55183 #### [facility] [address] [place] [address] EQUIPMENT BIPAP Normal [facility] Comment on above: Order Comment: Campu s: M Performed By: #### L 500.28317, L500.98118 #### [facility] [address] [facility] [place] [address] FIO2 80 % Normal [facility] Comment on above: Order Comment: Campu s: M Performed By: #### L 500.91061, L500.88188 #### [facility] [address] [facility] [place] [address] HCO3 (Bld) [Moles/Vol] 28.7 mmol/L High 22-26 [facility] Comment on above: Order Comment: Campu s: M Performed By: #### L 500.43615, L5.36400 #### [facility] [address] [place] [address] Hemoglobin (Bld) [Mass/Vol] 11.6 g/dL Normal 10-16 [facility] Comment on above: Order Comment: Campu s: M Performed By: #### L 500.21414, L5.30292 #### [facility] [address] [place] [address] IPAP 10.0 CMH2O Normal [facility] Comment on above: Order Comment: Campu s: M Performed By: #### L 500.38152, L5.34118 #### [facility] [place] [address] RESP. RATE 12 Normal [facility] Comment on above: Order Comment: Campu s: M Performed By: #### L 500.52403, L5.44856 #### [facility] [address] [place] [address] SAMPLE SITE L RADIAL Normal [facility] Comment on above: Order Comment: Campu s: M Performed By: #### L 500.21251, L5.01547 #### [facility] [place] [address] SAMPLE TYPE ARTERIAL Normal [facility] Comment on above: Order Comment: Campu s: M Performed By: #### L 500.10373, L500.17111 #### [facility] [address] [place] [address] [address] Normal [facility] Comment on above: Order Comment: Campu s: M Performed By: #### L 500.04246, L500.38370 #### [facility] [place] [address] CBC W/DIFFon 11-07-2020 BASO ABS 0.10 K/CU MM Normal 0-0.2 [facility] Comment on above: Order Comment: Campu s: M Performed By: #### L 200.04997 ####[place] [address]Ph# [phone] Basophils/100 WBC (Bld) 0.4 % Normal 0-2 [facility] Comment on above: Order Comment: Campu s: M Performed By: #### L 200.23090 ####[place] [address]Ph# [phone] EOS ABS 0.00 K/CU MM Normal 0-0.5 [facility] Comment on above: Order Comment: Campu s: M Performed By: #### L 200.31701 ####[place] [address]Ph# [phone] Eosinophils/100 WBC (Bld) 0.2 % Normal 0-5 [facility] Comment on above: Order Comment: Campu s: M Performed By: #### L 200.88352 ####[facility] [id number] [place], [place] [address]Ph# [phone] Erythrocyte distribution width (RBC) [Ratio] 15.6 % High 11-14.5 [facility] Comment on above: Order Comment: Campu s: M Performed By: #### L 200.42699 ####[facility] [id number] [place], [place] [address]Ph# [phone] Hematocrit (Bld) [Volume fraction] 37.7 % Low 41.0-53.0 [facility] Comment on above: Order Comment: Campu s: M Performed By: #### L 200.79118 ####[facility] FIAAORKQDV[address] [place], [place] [address]Oy# [phone] Hemoglobin (Bld) [Mass/Vol] 12.0 g/dL Low 13.5-17.5 [facility] Comment on above: Order Comment: Campu s: M Performed By: #### L 200.32872 ####[facility] [id number] [place], [place] [address]Ph# [phone] IMMATR GRAN ABS 0.40 K/CU MM Normal Less than 2 [facility] Comment on above: Order Comment: Campu s: M Performed By: #### L 200.45171 ####[place] [address]Ph# [phone] IMMATURE GRAN % 2.3 % Normal Less than 2 [facility] Comment on above: Order Comment: Campu s: M Performed By: #### L 200.71287 ####[facility] [id number] [place] [address]Gr# [phone] LYMPH ABS 1.10 K/CU MM Normal 0.9-4.4 [facility] Comment on above: Order Comment: Campu s: M Performed By: #### L 200.96974 ####[facility] [id number] [place], [place] [address]Ph# [phone] Lymphocytes/100 WBC (Bld) 6.1 % Low 20-40 [facility] Comment on above: Order Comment: Campu s: M Performed By: #### L 200.97133 ####[facility] [id number] [place] [address]Es# [phone] MCHC (RBC) [Mass/Vol] 31.8 g/dL Low 32.0-36.0 [facility] Comment on above: Order Comment: Campu s: M Performed By: #### L 200.21259 ####[facility] [id number] [place], [place] [address]Ia# [phone] MCV (RBC) [Entitic vol] 97.7 fL Normal 80.0-99.0 [facility] Comment on above: Order Comment: Campu s: M Performed By: #### L 200.84141 ####[facility] [id number] [place], [place] [address]Ph# [phone] MONO ABS 0.50 K/CU MM Normal 0.1-1.1 [facility] Comment on above: Order Comment: Campu s: M Performed By: #### L 200.00237 ####[place] [address] [place] [address]Ph# [phone] Monocytes/100 WBC (Bld) 3.1 % Normal 2-10 [facility] Comment on above: Order Comment: Campu s: M Performed By: #### L 200.90949 ####[facility] [id number] [place], [place] [address]Ph# [phone] NEUTROPHIL ABS 15.20 K/CU MM High 2.0-8.3 [facility] Comment on above: Order Comment: Campu s: M Performed By: #### L 200.88819 ####[address] [address]Jb# [phone] Neutrophils/100 WBC (Bld) 87.9 % High 45-75 [facility] Comment on above: Order Comment: Campu s: M Performed By: #### L 200.37972 ####[facility] [id number] [place] [address]Oj# [phone] Nucleated RBC/100 WBC (Bld) [Ratio] 0.0 % Normal Less than 1 [facility] Comment on above: Order Comment: Campu s: M Performed By: #### L 200.25974 ####[facility] [id number] [place], [place] [address]Ph# [phone] Platelet mean volume (Bld) [Entitic vol] 9.4 fL Normal 9.4-12.4 [facility] Comment on above: Order Comment: Campu s: M Performed By: #### L 200.33191 ####[facility] Q[address]OTK[address] [place], [place] [address]Ol# [phone] PLT 246 K/CU MM Normal 150-450 [facility] Comment on above: Order Comment: Campu s: M Performed By: #### L 200.90046 ####[facility] [id number] [place] [address]Jd# [phone] RBC 3.86 M/CU MM Low 4.50-6.00 [facility] Comment on above: Order Comment: Campu s: M Performed By: #### L 200.06708 ####[address] [address]Zu# [phone] WBC 17.3 K/CUMM High 4.5-11.0 [facility] Comment on above: Order Comment: Campu s: M Performed By: #### L 200.77334 ####[facility] [id number] [place] [address]Fe# [phone] CMPon 11-07-2020 Albumin [Mass/Vol] 2.4 g/dL Low 3.2-5.0 [facility] Comment on above: Order Comment: Campu s: M Performed By: #### L 500.41293, L500.14645, L500.16956, L500.64573 ####[facility] S[address]XZRLQYG3968 [place], [place] [address]Da# [phone] Albumin/Globulin [Mass ratio] 0.8 {ratio} Normal 0.8-2.0 [facility] Comment on above: Order Comment: Campu s: M Performed By: #### L 500.27022, L500.60672, L500.82355, L500.44457 ####[facility] [id number] [place] [address]Ph# [phone] ALK PHOS 65 U/L Normal 45-117 [facility] Comment on above: Order Comment: Campu s: M Performed By: #### L 500.94025, L500.04010, L500.15723, L500.07133 ####[facility] IHVWZRZRTV4115 [place], [place] [address]Ob# [phone] ALT [Catalytic activity/Vol] 42 U/L Normal 13-61 [facility] Comment on above: Order Comment: Campu s: M Result Comment: RESU LTS MAY BE FALSELY DEPRESSED AFTER THE ADMINISTRATION OF SULFASALAZINE AND/OR SULFAPYRIDINE. Performed By: #### L 500.41015, L500.78414, L500.41020, L500.27752 ####[facility] HWUHICZOEO2754 [place], [place] [address]We# [phone] Anion gap [Moles/Vol] 8 mmol/L Normal 5-16 [facility] Comment on above: Order Comment: Campu s: M Performed By: #### L 500.99414, L500.07727, L500.89892, L500.20789 ####[facility] JFBLRJLVZG9902 [place], [place] [address]Wa# [phone] AST [Catalytic activity/Vol] 19 U/L Normal 8-34 [facility] Comment on above: Order Comment: Campu s: M Result Comment: RESU LTS MAY BE FALSELY DEPRESSED AFTER THE ADMINISTRATION OF SULFASALAZINE AND/OR SULFAPYRIDINE. Performed By: #### L 500.02772, L500.24847, L500.66606, L500.80972 ####[facility] ROHHZOBDRA8209 [place], [place] [address]Kf# [phone] BILI TOTAL 0.90 MG/DL Normal 0.2-1.0 [facility] Comment on above: Order Comment: Campu s: M Performed By: #### L 500.45328, L500.57516, L500.79065, L500.49416 ####[facility] HUYJDGHXZY5379 [place], [place] [address]Ap# [phone] Calcium [Mass/Vol] 9.6 mg/dL Normal 8.5-10.5 [facility] Comment on above: Order Comment: Campu s: M Result Comment: NOTE NEW NORMAL RANGE DUE TO REAGENT CHANGE Performed By: #### L 500.78447, L500.66203, L500.95413, L500.25426 ####[facility] RSJTTTTZGI7863 [place], [place] [address]Tk# [phone] Chloride [Moles/Vol] 100 mmol/L Normal 98-107 [facility] Comment on above: Order Comment: Campu s: M Performed By: #### L 500.77258, L500.51186, L500.23827, L500.71775 ####[facility] SAWBSMBAZU5187 [place], [place] [address]Rs# [phone] CO2 [Moles/Vol] 32.0 mmol/L Normal 21-32 [facility] Comment on above: Order Comment: Campu s: M Performed By: #### L 500.14199, L500.26253, L500.12600, L500.01312 ####[facility] YPDHDRILRI6670 [place], [place] [address]Wm# [phone] Creatinine [Mass/Vol] 0.79 mg/dL Normal 0.5-1.4 [facility] Comment on above: Order Comment: Campu s: M Result Comment: NOTE NEW NORMAL RANGE DUE TO REAGENT CHANGE Patients receiving either N-Acetylcysteine (NAC) or Metamizole prior to venipuncture, may have falsely depressed results. Performed By: #### L 500.48552, L500.49883, L500.55972, L500.48769 ####[facility] [id number] [place], [place] [address]Xj# [phone] Globulin (S) [Mass/Vol] 3.1 g/dL Normal 2.2-4.2 [facility] [place] Comment on above: Order Comment: Campu s: M Performed By: #### L 500.81068, L500.49352, L500.65967, L500.10423 ####[facility] [id number] [place], [place] [address]Bn# [phone] Glucose [Mass/Vol] 127 mg/dL High 70-100 [facility] Comment on above: Order Comment: Campu s: M Result Comment: 70-1 00- Normal Fasting; 100-125 Impaired Fasting; greater than 126 on more than one result- Diabetes. ADA guidelines. Results may be falsely elevated after the administration of Sulfapyridine. Results may be falsely depressed after the administration of Sulfasalazine. Performed By: #### L 500.51192, L500.39034, L500.69005, L500.89272 ####[facility] [id number] [place], [place] [address]Ey# [phone] Potassium [Moles/Vol] 3.9 mmol/L Normal 3.5-5.1 [facility] Comment on above: Order Comment: Campu s: M Performed By: #### L 500.56643, L500.60750, L500.06842, L500.66646 ####[facility] [id number] [place], [place] [address]Kw# [phone] Protein [Mass/Vol] 5.5 g/dL Low 6.0-8.5 [facility] Comment on above: Order Comment: Campu s: M Performed By: #### L 500.12501, L500.70673, L500.11816, L500.60924 ####[facility] [id number] [place], [place] [address]Gv# [phone] Sodium [Moles/Vol] 140 mmol/L Normal 136-145 [facility] Comment on above: Order Comment: Campu s: M Performed By: #### L 500.21092, L500.83938, L500.58679, L500.72949 ####[facility] [id number] [place], [place] [address]Ga# [phone] Urea nitrogen [Mass/Vol] 23 mg/dL Normal 7-26 [facility] Comment on above: Order Comment: Campu s: M Performed By: #### L 500.86652, L500.57774, L500.56965, L500.94554 ####[facility] [id number] [place], [place] [address]Zi# [phone] Urea nitrogen/Creatinine [Mass ratio] 29 mg/mg High 15-24 [facility] Comment on above: Order Comment: Campu s: M Performed By: #### L 500.66594, L500.29401, L500.24157, L500.38313 ####[facility] [id number] [place], [place] [address]Hu# [phone] GFR ESTon 11-07-2020 IF AMER Greater than 60 Normal [facility] Comment on above: Order Comment: Campu s: M Performed By: #### L 500.80708, L500.61192, L500.49173, L500.39833 ####[facility] [id number] [place], [place] [address]Ng# [phone] IF non-AFR AMER Greater than 60 Normal [facility] Comment on above: Order Comment: Campu s: M Performed By: #### L 500.79422, L500.91736, L500.62378, L500.74390 ####[facility] [id number] [place] [address]Cc# [phone] HP.IMS.CONon 11-07-2020 CONSULTATION-H&P Normal [facility] HP.IMS.CON [facility] Patient Name: JAVIER DEGROOT [address] [facility] Date of : [address] [address] Unit Number: [id number] CONSULTATION-HandP Patient Status: REG RCR Attending Doctor: Andrea Ashley MD Service Date: 11/07/20 1253 History of Present Illness Referring Physician Andrea Ashley MD Reason for Consult fever History of Present Illness 75 y/o M, admitted 09/27/20 with covid to OSH, treated with dex and remdesivir, transferred to [facility] 10/18. Feeling ok, some baseline sputum and cough. Developed fever to 102.6 last night, reports some dysuria, cxs sent. Zosyn started this AM. Full ROS performed and neg except as noted above. Past Medical/Surgical Hx Past Medical History hypertension, hyperlipidemia, pulmonary artery hypertension, moderate aortic insufficiency , BPH, chronic bilateral pulmonary emboli, anticoagulation on Eliquis, leg edema, solitary lung nodule. Physical Exam Appearance - PE Awake, Alert, No distress Neck - PE Normal inspection, No lymphadenopathy HEENT - PE Head atraumatic, Eyes normal inspection, PERRLA, Hearing grossly normal Respiratory - PE bibasilar rales Cardiovascular - PE Rate WNL, Rhythm regular Neurological - PE Alert, Oriented x 3, No motor deficit Abdomen - PE Abdomen soft, Non-tender, No distension Extremity - PE Normal appearance, No pedal edema Skin - PE Color normal, Skin warm, dry Conclusion / Plan Conclusion 1. Sepsis sepsis with recent covid - UA with pyuria, sputum showing GPC and GNR. Agree with zosyn. Recommend bladder scan if not done as he may be retaining with h/o BPH. Will follow, thank you Disclaimer This dictation was created using voice recognition software. Phonetic and/or minor grammatical errors may exist. eSign Date and Time Ame Maher MD Verified/Reviewed by 11/07/20 1256 Normal [facility] MAGNESIUMon 11-07-2020 MAGNESIUM 1.9 MG/CL Normal 1.6-2.6 [facility] Comment on above: Order Comment: Maxu s: M Performed By: #### L 500.86329, L500.27293, L500.48867, L500.48461 ####[facility] [id number] [place], [place] [address]By# [phone] PHOSon 11-07-2020 Phosphate [Mass/Vol] 3.40 mg/dL Normal 2.5-4.9 [facility] Comment on above: Order Comment: Campu s: M Result Comment: Elev ated m-protein (paraprotein) levels in the serum may be exhibited in patients with monoclonal gammopathies, causing falsely elevated inorganic phosphorus results. Performed By: #### L 500.41110, L500.93781, L500.75809, L500.18387 ####[facility] [id number] [place], [place] [address]Yn# [phone] PROG.Lety 11-07-2020 PROG.SUMA [facility] Patient Name: JAVIER DEGROOT [address] [facility] Date of : [address] [place], [place] [address] Unit Number: [id number] Progress Note-Cardiology Patient Status: REG RCR Attending Doctor: Andrea Ashley MD Service Date: 11/07/20 104 See Addendum Progress Note-Cardiology ADVC Subjective Subjective: Sitting up in bed. Atrial fibrillation heart rate 92 per telemetry. Denies complaints of chest pain or shortness of breath. No cardiac events noted overnight. No ectopy or bradycardia. Objective Vital Signs: Weight: pounds Temperature 98.4, heart rate 92 atrial fibrillation, respirations 24, blood pressure 106/ 48 Lab Results: Lab 24hr (CBC/BMP [facility]) 11/07/20 0526: Urine Color Lluvia, Urine Appearance Cloudy, Urine pH 6.0, Ur Specific [place] 1.017, Urine Protein 30, Urine Glucose (UA) 50, Urine Ketones NEGATIVE, Urine Blood MOD, Urine Nitrite NEGATIVE, Urine Bilirubin NEGATIVE, Urine Urobilinogen 4.0, Ur Leukocyte Esterase 500, Urine RBC 33 H, Urine WBC 234 H, Urine WBC Clumps MOD, Ur Squamous Epith Cells 2, Urine Bacteria 3+, Urine Mucus 1+ 11/07/20 0304: Sodium Cancelled, Potassium Cancelled, Chloride Cancelled, Carbon Dioxide Cancelled, Anion Gap Cancelled, BUN Cancelled, Creatinine Cancelled, BUN/Creatinine Ratio Cancelled, Glucose Cancelled, Total Calcium Cancelled, WBC Cancelled, RBC Cancelled, Hgb Cancelled, Hct Cancelled, MCV Cancelled, MCHC Cancelled, RDW Cancelled, Plt Count Cancelled 11/07/20 0304: [Embedded Image Not Available] Anion Gap 8, Est GFR ( Amer) Greater than 60, Est GFR (Non-Af Amer) Greater than 60 , BUN/Creatinine Ratio 29 H, Glucose 127 H, Total Calcium 9.6, Phosphorus 3.40, Magnesium 1.9, Total Bilirubin 0.90, AST 19, ALT 42, Alkaline Phosphatase 65, Serum Total Protein 5.5 L, Albumin 2.4 L, Globulin 3.1, Albumin/Globulin Ratio 0.8, RBC 3.86 L, MCV 97.7, MCHC 31.8 L, RDW 15.6 H, MPV 9.4, Immature Gran % (Auto) 2.3, Abs Immat Gran (auto) 0.40, Seg Neutrophils % 87.9 H, Lymphocytes % 6.1 L, Monocytes % 3.1, Eosinophils % 0.2, Basophils % 0.4, Neutrophils # 15.20 H, Lymphocytes # 1.10, Monocytes # 0.50, Eosinophils # 0.00, Basophils # 0.10, Nucleated RBCs 0.0 11/07/20 0240: Specimen Type ARTERIAL, Sample Site L RADIAL, Patient Temperature 37.0, pH 7.53 H, pCO2 34.9 L, pO2 57 L, HCO3 28.7 H, Base Excess 6.0 H, ABG O2 Sat (Measured) 92.6, ABG Oximetry 94, ABG O2 Content 15.1 L, ABG Hemoglobin 11.6, ABG Reduced Hgb 7.0 H, ABG Carboxyhemoglobin 0.3, ABG Methemoglobin 0.1 L, ABG O2 Capacity 16.1, Rin Test POSITIVE, Respiration Rate 12, Patient Equipment BIPAP, Vent Mode ST, FiO2 % 80, EPAP 5.0, IPAP 10.0 Exam: Awake, alert, oriented Skin Gard[place], warm, dry No JVD Heart irregular irregular, S1, S2 Lungs clear, diminished, nonlabored respiration Abdomen soft, obese, bowel sounds present, nontender No bilateral lower extremity edema noted Assessment/Plan Assessment/Problem List: 1. Tachycardia Chest x-ray October 19, 2020 Bibasilar pneumonia more severe on the left, no pleural effusions or pneumothorax. Cardiomediastinal silhouette is prominent. Medications on admission Eliquis 5 mg twice daily Lipitor 10 mg every night Cardizem CD 240 mg daily -resume Cardizem at 30 mg p.o. 4 times daily Lasix 40 mg twice daily Metoprolol tartrate 100 mg twice daily -reduce to 50 mg twice daily -resume at 50 mg p.o. twice daily Vitals temperature temperature 98.4, heart rate 92 atrial fibrillation, respirations 24, blood pressure 106/48 Laboratory data November 07 White blood count 17.3, hemoglobin 12.0, hematocrit 37.7, platelets 246 Sodium 140, potassium 3.9, chloride 100, CO2 32, BUN 23, creatinine 0.79, glucose 127 Total calcium 9.6, phosphorus 3.40, magnesium 1.9 Total bilirubin 0.9, AST 19, ALT 42, alkaline phosphatase 65 Albumin 2.4 Assessment Tachycardia Covid 19 recovery History of Covid pneumonia Acute respiratory failure with hypoxia Hyperlipidemia Pulmonary artery hypertension Hypertension Moderate aortic insufficiency BPH Solitary lung nodule Bilateral PE, on long-term Eliquis Plan Telemetry in select specialties Cardizem increased yesterday to 60 mg 4 times daily with improvement of heart rate Also will add Lopressor 5 mg IV every 4 hours as needed for heart rate greater than 110 or systolic blood pressure greater than 150 2 g sodium restricted diet Intake and output, daily weights Cardiac medications were being held due to hypotension with systolic blood pressures being less than 120; patient has a component of rebound effect at this time becoming very tachycardic in the 130-170 range. Cardizem drip was not initiated due to again hypotension with a systolic less than 120. Patient is alert, sitting in the chair, in no distress, tachycardic. Will resume metoprolol 50 mg twice daily with a hold rate of less than 100 systolic blood pressure. (more content not included)... Normal [facility] Progress Note-Cardiology Normal [facility] UA COMPLETEon 11-07-2020 UA BACTERIA 3+ /HPF Normal NONE [facility] Comment on above: Order Comment: Yamil s: M Performed By: #### L .41238 #### [facility] [address] [place] [address] UA LK ESTERASE 500 Normal NEGATIVE [facility] Comment on above: Order Comment: Yamil s: M Performed By: #### L 200.57923 #### [facility] [address] [place] [address] UA WBC 234 WBC/HPF High 0-5 [facility] Comment on above: Order Comment: Yamil s: M Performed By: #### L 200.87464 #### [facility] [address] [place] [address] Color (U) Lluvia Normal [facility] Comment on above: Order Comment: Campu s: M Performed By: #### L 200.65777 #### [facility] [address] [place] [address] Glucose (U) [Mass/Vol] 50 mg/dL Normal NORMAL [facility] Comment on above: Order Comment: Campu s: M Performed By: #### L 200.22328 #### [facility] [address] [place] [address] Mucus Ql (Urine sed) 1+ Normal NEGATIVE [facility] Comment on above: Order Comment: Campu s: M Performed By: #### L 200.85810 #### [facility] [address] [place] [address] SQUAMOUS EPIS 2 EPI/HPF Normal 0-5 [facility] Comment on above: Order Comment: Campu s: M Performed By: #### L 200.72869 #### [facility] [address] [place] [address] UA APPEARANCE Cloudy Normal CLEAR [facility] Comment on above: Order Comment: Campu s: M Performed By: #### L 200.93605 #### [facility] [address] [place] [address] UA BILIRUBIN Negative Normal NEGATIVE [facility] Comment on above: Order Comment: Campu s: M Performed By: #### L 200.20276 #### [facility] [address] [place] [address] UA BLOOD MOD Normal NEGATIVE [facility] Comment on above: Order Comment: Campu s: M Performed By: #### L 200.13843 #### [facility] [address] [place] [address] UA KETONE Negative Normal NEGATIVE [facility] Comment on above: Order Comment: Campu s: M Performed By: #### L .17381 #### [facility] [address] [facility] [place] [address] UA NITRITE Negative Normal NEGATIVE [facility] Comment on above: Order Comment: Campu s: M Performed By: #### L 200.94670 #### [facility] [address] [place] [address] UA PH 6.0 Normal 5-6 [facility] Comment on above: Order Comment: Campu s: M Performed By: #### L .61365 #### [facility] [address] [place] [address] UA PROTEIN 30 Normal NEGATIVE [facility] Comment on above: Order Comment: Campu s: M Performed By: #### L .91539 #### [facility] [place] [address] UA RBC 33 RBC/HPF High 0-3 [facility] Comment on above: Order Comment: Campu s: M Performed By: #### L .78015 #### [facility] [address] [place] [address] UA SPEC GRAV 1.017 Normal 1.005-1.030 [facility] Comment on above: Order Comment: Campu s: M Performed By: #### L .78373 #### [facility] [address] [place] [address] UA UROBILINOGEN 4.0 Normal NORMAL [facility] Comment on above: Order Comment: Campu s: M Performed By: #### L .43467 #### [facility] [address] [place] [address] WBC CLUMPS MOD Normal [facility] Comment on above: Order Comment: Campu s: M Performed By: #### L 200.81746 #### [facility] [address] [place] [address] Romero 11-06-2020 Potassium [Moles/Vol] 3.5 mmol/L Normal 3.5-5.1 [facility] Comment on above: Order Comment: Yamil s: M Result Comment: Slig ht Hemolysis, Result may be affected. Performed By: #### L 200.70136 #### [facility] [address] [place] [address] PROG.Lety 11-06-[address] Patient Name: JAVIER DEGROOT [address] [place] [address] Date of : [address] [place], [place] [address] Unit Number: [id number] Progress Note-Cardiology Patient Status: REG RCR Attending Doctor: Andrea Ashley MD Service Date: 11/06/20740 See Addendum Progress Note-Cardiology ADVC Subjective Subjective: Patient sitting up in chair. Denies complaints of chest pain or shortness of breath. Monitor shows atrial fibrillation with heart rate at 116. Heart rate has been up since about 630 this morning. Blood pressure also up this morning. No cardiac events noted. Increased beta-brittany to 75 mg yesterday and added Cardizem 30 mg 4 times daily. Objective Vital Signs: Weight: pounds Temp 99.3, atrial fibrillation heart rate 116, respirations 24, blood pressure 108/61 Lab Results: Lab 24hr (CBC/BMP [facility]) 11/06/20 0421: [Embedded Image Not Available] Exam: Awake, alert, oriented Skin Gardere, warm, dry No JVD Heart irregular irregular, S1, S2, no murmurs rubs or gallops Lungs clear, diminished, nonlabored respirations Abdomen soft, nontender, bowel sounds present No peripheral edema Assessment/Plan Assessment/Problem List: 1. Tachycardia Chest x-ray October 19, 2020 Bibasilar pneumonia more severe on the left, no pleural effusions or pneumothorax. Cardiomediastinal silhouette is prominent. Medications on admission Eliquis 5 mg twice daily Lipitor 10 mg every night Cardizem CD 240 mg daily -resume Cardizem at 30 mg p.o. 4 times daily Lasix 40 mg twice daily Metoprolol tartrate 100 mg twice daily -reduce to 50 mg twice daily -resume at 50 mg p.o. twice daily Vitals temperature 98.3, heart rate 130 atrial fibrillation, respirations 20, blood pressure 101/54, 92% on 4 L nasal cannula Laboratory data November 04, 2020 White blood count 15.6, hemoglobin 12.3, hematocrit 37.4, platelets 290 Sodium 137, potassium 3.3, chloride 97, CO2 33, BUN 30, creatinine 0.83, glucose 108 Phosphorus 3.10, magnesium 2.1, total bilirubin 0.6, AST 22, ALT 49, albumin 1.0 Laboratory data for November 06, 2020 Potassium 3.5 Assessment Tachycardia Covid 19 recovery History of Covid pneumonia Acute respiratory failure with hypoxia Hyperlipidemia Pulmonary artery hypertension Hypertension Moderate aortic insufficiency BPH Solitary lung nodule Bilateral PE, on long-term Eliquis Plan Telemetry in select specialties Resume metoprolol at 50 mg p.o. twice daily yesterday with hold rate of less than 100 systolic blood pressure to hold Resumed Cardizem yesterday at 30 mg p.o. 4 times daily Plan to increase Cardizem to 60 mg 4 times daily Also will add Lopressor 5 mg IV every 4 hours as needed for heart rate greater than 110 or systolic blood pressure greater than 150 Discontinue the Cardizem HCl 180 daily Supplement potassium 2 g sodium restricted diet Intake and output, daily weights Cardiac medications were being held due to hypotension with systolic blood pressures being less than 120; patient has a component of rebound effect at this time becoming very tachycardic in the 130-170 range. Cardizem drip was not initiated due to again hypotension with a systolic less than 120. Patient is alert, sitting in the chair, in no distress, tachycardic. Will resume metoprolol 50 mg twice daily with a hold rate of less than 100 systolic blood pressure. Will change the Cardizem to 30 mg p.o. 4 times daily with a hold rate of less than 100 systolic. Need to replace the potassium due to level at 3.2 today Collaborating Physician: George Botello MD Physician Attestation Statement of Attestation I confirm that I have evaluated the patient, reviewed the history and physical, medications, diagnostic results, physical exam, assessment and plan of care of the patient. ADDENDUM: MARIA ELENA MOBLEY CNP on 11/06/20 at 1225 Heart rate has improved into the 90s currently, atrial fibrillation. ADDENDUM: GEORGE BOTELLO on 11/06/20 at 1418 As above. Patient with continued atrial fibrillation with increased ventricular rate. Cardizem dose increased to 60 mg every 6. Blood pressure relatively low earlier but now back to normal. We will continue adjust medications as needed. Disclaimer This dictation was created using voice recognition software. Phonetic and/or minor grammatical errors may exist. eSign Date and Time George Botello MD Verified/Reviewed by 11/06/20 1419 Maria Elena Mobley CNP Verified/Reviewed by 11/06/20 0928 [facility] Progress Note-Cardiology [facility] CONS.[facility] 11-05-[address] Patient Name: JAVIER DEGROOT [facility] Date of : [address] [place], [place] [address] Unit Number: [id number] Consultation-Cardiology Patient Status: REG RCR Attending Doctor: Andrea Ashley MD Service Date: 11/05/20824 See Addendum History of Present Illness Referring Physician Isabela Dawkins DO Consulted Provider George Botello MD Reason for Consult Tachycardia Status post Covid History of atrial fibrillation Living Situation Alf History of Present Illness Patient is a 75-year-old gentleman who resides in a care home and tested positive for COVID-19 on September 27. He was sent to the hospital on October 03 due to a fever, cough , fatigue and hypoxia. He was placed on high flow nasal cannula in the emergency room and underwent treatment with remdesivir and dexamethasone. He was sent to select specialty after hospitalization for further recovery. Patient has a past medical history of hypertension, hyperlipidemia, pulmonary artery hypertension, moderate aortic insufficiency, BPH, chronic bilateral pleural pulmonary emboli, chronic anticoagulation on Eliquis, leg edema, solitary lung nodule. During his admission he becomes very tachycardic with heart rates in the 140s to 170s when he is up and around. Cardiology was consulted to review medications and give further assistance due to the tachycardia and history of atrial fibrillation. Physician Attestation Statement of Attestation I confirm that I have evaluated the patient, reviewed the history and physical, medications, diagnostic results, physical exam, assessment and plan of care of the patient. Past Medical/Surgical Hx Past Medical History Summary Hypertension Hyperlipidemia Pulmonary artery hypertension Moderate aortic insufficiency BPH Chronic bilateral PE Anticoagulation on Eliquis Leg edema Solitary lung nodule Past Surgical History Summary Status post left cataract surgery status post stent Family/Social History Social Hx Patient is an ex smoker, does not drink alcohol or use illicit drug use Review of Systems ROS: Other Obtained by computer documentation and staff along with previous hospital records All other systems reviewed andnot significant to current visit Yes Physical Exam Appearance - PE Appears well, Awake, Alert, No distress Patient is Obese Neck - PE Normal inspection, No JVD, Supple, Full range of motion, No thyromegaly, No carotid bruit HEENT - PE Head atraumatic, No signs of dehydration Respiratory - PE Lungs sound clear, Respirations non-labored, Symmetrical expansion, Diminished, nonlabored respiration Lung Sounds by Lobe LLL Clear, YEN Clear, RLL Clear, RML Clear, RUL Clear Respiratory - Expanded Exam Negative: Resp Distress, Splinting, Stridor, Prolonged Expiration, Accessory Muscle Use. Cardiovascular - PE Normal heart sounds, Irregularirregular, S1, S2, No murmurs rubs or gallops Cardiovascular - Expanded Exam Positive: Tachycardia. Negative: Bradycardia, JVD. Neurological - PE Alert, Oriented x 3, No motor deficit, No sensory deficit Mental Status - PE Oriented x 3 Abdomen - PE Bowel sounds present, Abdomen soft, Non-tender, No distension Extremity - PE Normal appearance, Full ROM, Sensation intact, Motor Intact, No vascular compromise, No tenderness, No pedal edema, Symmetrical Skin - PE Color normal, Skin warm, dry Diagnostic Data: Laboratory Tests 11/05 11/04 0425 0448 Chemistry Sodium (136 - 145 MMOL/L) 137 Potassium (3.5 - 5.1 MMOL/L) 3.2 L 3.3 L Chloride (98 - 107 MMOL/L) 97 L Carbon Dioxide (21 - 32 MMOL/L) 33.0 H Anion Gap (5 - 16 MMOL/L) 7 BUN (7 - 26 MG/DL) 30 H Creatinine (0.5 - 1.4 MG/DL) 0.83 Est GFR ( Amer) Greater than 60 Est GFR (Non-Af Amer) Greater than 60 BUN/Creatinine Ratio (15 - 24) 36 H Glucose (70 - 100 MG/DL) 108 H Total Calcium (8.5 - 10.5 MG/DL) 9.1 Phosphorus (2.5 - 4.9 MG/DL) 3.10 Magnesium (1.6 - 2.6 MG/CL) 2.1 Total Bilirubin (0.2 - 1.0 MG/DL) 0.60 AST (8 - 34 U/L) 22 ALT (13 - 61 U/L) 49 Alkaline Phosphatase (45 - 117 U/L) 61 Serum Total Protein (6.0 - 8.5 GM/DL) 5.2 L Albumin (3.2 - 5.0 GM/DL) 2.6 L Globulin (2.2 - 4.2 GM/DL) 2.6 Albumin/Globulin Ratio (0.8 - 2.0) 1.0 Hematology WBC (4.5 - 11.0 K/CUMM) 15.6 H RBC (4.50 - 6.00 M/CU MM) 3.96 L Hgb (13.5 - 17.5 G/DL) 12.3 L Hct (41.0 - 53.0 %) 37.4 L MCV (80.0 - 99.0 fl) 94.4 MCHC (32.0 - 36.0 GM/DL) 32.9 RDW (11 - 14.5) 15.1 H Plt Count (150 - 450 K/CU MM) 290 MPV (9.4 - 12.4) 9.7 Seg Neutrophils % (45 - 75 %) 80.0 H Band Neutrophils % (0 - 7 %) 1.0 Lymphocytes % (20 - 40 %) 10.0 L Monocytes % (2 - 10 %) 6.0 Eosinophils % (0 - 5 %) 1.0 Metamyelocytes % (%) 1.0 Myelocytes % (%) 1.0 Neutrophils # (2.0 - 8.3 K/CU MM) 12.48 H Band Neutrophils # (K (more content not included)... Normal [facility] Consultation-Cardiolo gy Normal [facility] Romero 11-05-2020 Potassium [Moles/Vol] 3.2 mmol/L Low 3.5-5.1 [facility] Comment on above: Order Comment: Campu s: M Performed By: #### L 500.88772 ####[facility] [id number] [place], [place] [id number]# [phone] CBC W/DIFFon 11-04-2020 BAND ABS 0.16 K/CU MM Normal [facility] Comment on above: Order Comment: Campu s: M Performed By: #### L 500.58309, L500.14572 #### [facility] [address] [place], [place] [address] Band form neutrophils/100 WBC (Bld) 1.0 % Normal 0-7 [facility] Comment on above: Order Comment: Campu s: M Performed By: #### L 500.93698, L500.72443 #### [facility] [address] [place] [address] EOS ABS 0.16 K/CU MM Normal 0-0.5 [facility] Comment on above: Order Comment: Campu s: M Performed By: #### L 500.22309, L500.42875 #### [facility] [address] [place] [address] Eosinophils/100 WBC (Bld) 1.0 % Normal 0-5 [facility] Comment on above: Order Comment: Campu s: M Performed By: #### L 500.13142, L500.78101 #### [facility] [address] [place] [address] LYMPH ABS 1.56 K/CU MM Normal 0.9-4.4 [facility] Comment on above: Order Comment: Campu s: M Performed By: #### L 500.61949, L500.67829 #### [facility] [address] [place], [place] [id number] Lymphocytes/100 WBC (Bld) 10.0 % Low 20-40 [facility] Comment on above: Order Comment: Campu s: M Performed By: #### L 500.60403, L500.06136 #### [facility] [address] [place] [address] META % 1.0 % Normal [facility] Comment on above: Order Comment: Campu s: M Performed By: #### L 500.11424, L500.01133 #### [facility] [address] [place] [address] META ABS 0.16 K/CU MM Normal [facility] Comment on above: Order Comment: Campu s: M Performed By: #### L 500.34851, L500.16273 #### [facility] [address] [place] [address] MONO ABS 0.94 K/CU MM Normal 0.1-1.1 [facility] Comment on above: Order Comment: Campu s: M Performed By: #### L 500.51473, L500.60794 #### [facility] [address] [place] [address] Monocytes/100 WBC (Bld) 6.0 % Normal 2-10 [facility] Comment on above: Order Comment: Campu s: M Performed By: #### L 500.92243, L500.61720 #### [facility] [address] [place] [address] MYELO ABS 0.16 K/CU MM Normal [facility] Comment on above: Order Comment: Campu s: M Performed By: #### L 500.23451, L500.39821 #### [facility] [address] [place] [address] MYELOCYTE % 1.0 % Normal [facility] Comment on above: Order Comment: Campu s: M Performed By: #### L 500.07033, L500.12938 #### [facility] [address] [place] [address] NC/NC NORMOCYTIC Normal [facility] Comment on above: Order Comment: Campu s: M Performed By: #### L 500.82955, L500.87178 #### [facility] [address] [place] [address] NEUTROPHIL ABS 12.48 K/CU MM High 2.0-8.3 [facility] Comment on above: Order Comment: Campu s: M Performed By: #### L 500.12274, L500.89636 #### [facility] [address] [place] [address] Neutrophils/100 WBC (Bld) 80.0 % High 45-75 [facility] Comment on above: Order Comment: Campu s: M Performed By: #### L 500.56713, L500.55974 #### [facility] [address] [place] [address] PLT EST ADEQUATE Normal [facility] Comment on above: Order Comment: Campu s: M Performed By: #### L 500.54147, L500.52416 #### [facility] [address] [place] [address] Erythrocyte distribution width (RBC) [Ratio] 15.1 % High 11-14.5 [facility] Comment on above: Order Comment: Campu s: M Performed By: #### L 500.45345, L500.87320 #### [facility] [address] [place] [address] Hematocrit (Bld) [Volume fraction] 37.4 % Low 41.0-53.0 [facility] Comment on above: Order Comment: Campu s: M Performed By: #### L 500.22543, L500.83284 #### [facility] [address] [place] [address] Hemoglobin (Bld) [Mass/Vol] 12.3 g/dL Low 13.5-17.5 [facility] Comment on above: Order Comment: Campu s: M Performed By: #### L 500.77670, L500.72819 #### [facility] [address] [place] [address] MCHC (RBC) [Mass/Vol] 32.9 g/dL Normal 32.0-36.0 [facility] Comment on above: Order Comment: Campu s: M Performed By: #### L 500.83850, L500.38632 #### [facility] [address] [place] [address] MCV (RBC) [Entitic vol] 94.4 fL Normal 80.0-99.0 [facility] Comment on above: Order Comment: Campu s: M Performed By: #### L 500.49701, L5.89720 #### [facility] [address] [place] [address] Nucleated RBC/100 WBC (Bld) [Ratio] 0.0 % Normal Less than 1 [facility] Comment on above: Order Comment: Campu s: M Performed By: #### L 500.11552, L5.78764 #### [facility] [address] [place] [address] Platelet mean volume (Bld) [Entitic vol] 9.7 fL Normal 9.4-12.4 [facility] Comment on above: Order Comment: Campu s: M Performed By: #### L 500.26505, L500.83198 #### [facility] [address] [place] [address] PLT 290 K/CU MM Normal 150-450 [facility] Comment on above: Order Comment: Campu s: M Performed By: #### L 500.05274, L500.07623 #### [facility] [address] [place] [address] RBC 3.96 M/CU MM Low 4.50-6.00 [facility] Comment on above: Order Comment: Campu s: M Performed By: #### L 500.78645, L500.32148 #### [facility] [address] [place] [address] WBC 15.6 K/CUMM High 4.5-11.0 [facility] Comment on above: Order Comment: Campu s: M Performed By: #### L 500.22213, L500.70699 #### [facility] [address] [place] [address] CMPon 11-04-2020 Albumin [Mass/Vol] 2.6 g/dL Low 3.2-5.0 [facility] Comment on above: Order Comment: Campu s: M Performed By: #### L 500.07322, L500.05063, L500.67393, L500.08308 #### [facility] [address] [place] [address] Albumin/Globulin [Mass ratio] 1.0 {ratio} Normal 0.8-2.0 [facility] Comment on above: Order Comment: Campu s: M Performed By: #### L 500.63668, L500.44728, L500.41841, L500.36040 #### [facility] [address] [place] [address] ALK PHOS 61 U/L Normal 45-117 [facility] Comment on above: Order Comment: Campu s: M Performed By: #### L 500.13627, L500.77635, L500.81410, L500.94900 #### [facility] [address] [place] [address] ALT [Catalytic activity/Vol] 49 U/L Normal 13-61 [facility] Comment on above: Order Comment: Campu s: M Result Comment: RESU LTS MAY BE FALSELY DEPRESSED AFTER THE ADMINISTRATION OF SULFASALAZINE AND/OR SULFAPYRIDINE. Performed By: #### L 500.67709, L500.39014, L500.54720, L500.85195 #### [facility] [address] [place] [address] Anion gap [Moles/Vol] 7 mmol/L Normal 5-16 [facility] Comment on above: Order Comment: Campu s: M Performed By: #### L 500.15918, L500.38886, L500.76541, L500.04148 #### [facility] [place] [address] AST [Catalytic activity/Vol] 22 U/L Normal 8-34 [facility] Comment on above: Order Comment: Campu s: M Result Comment: RESU LTS MAY BE FALSELY DEPRESSED AFTER THE ADMINISTRATION OF SULFASALAZINE AND/OR SULFAPYRIDINE. Performed By: #### L 500.26309, L500.13896, L500.53076, L500.21436 #### [facility] [place] [address] BILI TOTAL 0.60 MG/DL Normal 0.2-1.0 [facility] Comment on above: Order Comment: Campu s: M Performed By: #### L 500.93752, L500.54303, L500.29490, L500.18551 #### [facility] [place] [address] Calcium [Mass/Vol] 9.1 mg/dL Normal 8.5-10.5 [facility] Comment on above: Order Comment: Campu s: M Result Comment: NOTE NEW NORMAL RANGE DUE TO REAGENT CHANGE Performed By: #### L 500.29517, L500.04004, L500.90280, L500.31357 #### [facility] [place] [address] Chloride [Moles/Vol] 97 mmol/L Low 98-107 [facility] Comment on above: Order Comment: Campu s: M Performed By: #### L 500.05903, L500.35898, L500.89780, L500.44902 #### [facility] [place] [id number] CO2 [Moles/Vol] 33.0 mmol/L High 21-32 [facility] Comment on above: Order Comment: Campu s: M Performed By: #### L 500.82248, L500.72927, L500.85095, L500.86146 #### [facility] [address] [place] [address] Creatinine [Mass/Vol] 0.83 mg/dL Normal 0.5-1.4 [facility] Comment on above: Order Comment: Campu s: M Result Comment: NOTE NEW NORMAL RANGE DUE TO REAGENT CHANGE Patients receiving either N-Acetylcysteine (NAC) or Metamizole prior to venipuncture, may have falsely depressed results. Performed By: #### L 500.34453, L500.43616, L500.17790, L500.02401 #### [facility] [address] [place] [address] Globulin (S) [Mass/Vol] 2.6 g/dL Normal 2.2-4.2 [facility] Comment on above: Order Comment: Campu s: M Performed By: #### L 500.49651, L500.94162, L500.87173, L500.44890 #### [facility] [address] [place], [place] [address] Glucose [Mass/Vol] 108 mg/dL High 70-100 [facility] Comment on above: Order Comment: Campu s: M Result Comment: 70-1 00- Normal Fasting; 100-125 Impaired Fasting; greater than 126 on more than one result- Diabetes. ADA guidelines. Results may be falsely elevated after the administration of Sulfapyridine. Results may be falsely depressed after the administration of Sulfasalazine. Performed By: #### L 500.70137, L500.07080, L500.38824, L500.04957 #### [facility] [place] [address] Potassium [Moles/Vol] 3.3 mmol/L Low 3.5-5.1 [facility] Comment on above: Order Comment: Campu s: M Result Comment: Slig ht Hemolysis, Result may be affected. Performed By: #### L 500.93517, L500.70363, L500.45798, L500.98237 #### [facility] [address] [place] [address] Protein [Mass/Vol] 5.2 g/dL Low 6.0-8.5 [facility] Comment on above: Order Comment: Campu s: M Performed By: #### L 500.39436, L500.32644, L500.98158, L500.17122 #### [facility] [address] [place] [address] Sodium [Moles/Vol] 137 mmol/L Normal 136-145 [facility] Comment on above: Order Comment: Campu s: M Performed By: #### L 500.88562, L500.11931, L500.09632, L500.87804 #### [facility] [address] [place] [address] Urea nitrogen [Mass/Vol] 30 mg/dL High 7-26 [facility] Comment on above: Order Comment: Campu s: M Performed By: #### L 500.15057, L500.64721, L500.43393, L500.98205 #### [facility] [address] [place] [address] Urea nitrogen/Creatinine [Mass ratio] 36 mg/mg High 15-24 [facility] Comment on above: Order Comment: Campu s: M Performed By: #### L 500.78310, L500.11780, L500.11147, L500.80123 #### [facility] [address] [place] [address] GFR ESTon 11-04-2020 IF AMER Greater than 60 Normal [facility] Comment on above: Order Comment: Campu s: M Performed By: #### L 500.99575, L500.80916, L500.66392, L500.70806 #### [facility] [address] [place] [address] IF non-AFR AMER Greater than 60 Normal [facility] Comment on above: Order Comment: Campu s: M Performed By: #### L 500.73144, L500.83066, L500.18952, L500.46283 #### [facility] [address] [place] [address] MAGNESIUMon 11-04-2020 MAGNESIUM 2.1 MG/CL Normal 1.6-2.6 [facility] Comment on above: Order Comment: Campu s: M Performed By: #### L 500.89922, L500.17349, L500.99761, L500.91358 #### [facility] [address] [place] [address] PHOSon 11-04-2020 Phosphate [Mass/Vol] 3.10 mg/dL Normal 2.5-4.9 [facility] Comment on above: Order Comment: Campu s: M Result Comment: Elev ated m-protein (paraprotein) levels in the serum may be exhibited in patients with monoclonal gammopathies, causing falsely elevated inorganic phosphorus results. Performed By: #### L 500.35466, L500.06164, L500.60332, L500.30425 #### [facility] [address] [place] [address] COVIDon 09-28-2020 COVID 19 Result SERVICE UNIT OPERATOR See Below Abnormal On license of [facility] ([place]) Comment on above: Result Comment: Posi tive Positive for COVID19 (SARS CoV2) by PCR.(*) This test was developed and its performance characteristics determined by [facility]'s [facility] [place]. This test has been authorized by FDA under an Emergency Use Authorization (EUA). This test has been validated in accordance with the FDA's Guidance Document Policy for Diagnostics Testing in Laboratories Certified to Perform High Complexity Testing under CLIA prior to Emergency use Authorization for Coronavirus Disease 2019 during the Public Health Emergency issued on November 11, 2019. Performed By: [facility] [email or web address] [place] [id number] After School Caregiver: Seth Gayle III, M.D. CLIA#: [id number] Phone#: Performed By: #### C OVID #### [place] [address] COVID 19 Source SERVICE UNIT OPERATOR See Below [facility] ([place]) Comment on above: Result Comment: Naso pharyngeal Swab Performed By: [facility] [email or web address] [place] [address] After School Caregiver: Seth Gayle III, M.D. CLIA#: [id number] Phone#: Performed By: #### C OVID #### [place] [address] Date of Onset [id number] [facility] ([place]) Comment on above: Performed By: #### C OVID #### [place] [id number] Employed in Healthcare No [facility] ([place] Comment on above: Performed By: #### C OVID #### [address] [address] First Test Yes [facility] ([place]) Comment on above: Performed By: #### C OVID #### [address] [address] Hospitalized No [facility] ([place]) Comment on above: Performed By: #### C OVID #### [address] [address] ICU No Normal [facility] ([place]) Comment on above: Performed By: #### C OVID #### [place] [address] [place], [place] [address] Unknown Normal [facility] ([place]) Comment on above: Performed By: #### C OVID #### [place] [address] [place], [place] [address] Resides in Congregate Care Setting No Normal [facility] ([place]) Comment on above: Performed By: #### C OVID #### [place] [address] [place], [place] [address] Symptomatic as Defined by CDC No Normal [facility] ([place]) Comment on above: Performed By: #### C OVID #### [place] [address] [place] [address] Lab Report: Lipid Profileon 08-24-2017 Cholesterol 125 mg/dL Invalid Interpretation Code 200 [employer] Work Phone: [phone] HDL Cholesterol 44 mg/dL Invalid Interpretation Code [employer] Phone: [phone] LDL Cholesterol 53 mg/dL Invalid Interpretation Code 0-130 [employer] Phone: [phone] Triglyceride 141 mg/dL Invalid Interpretation Code [employer] Work Phone: [phone] very low density lipoproteins 28 mg/dL Invalid Interpretation Code 5-40 [employer] Work Phone: [phone]) Lab Report: Liver Profileon 08-24-2017 Alanine aminotransferase (ALT) 22 U/L Invalid Interpretation Code 12-78 [employer] Work Phone: [phone] Albumin 3.9 g/dL Invalid Interpretation Code 3.4-5.0 [employer] Phone: [phone] Alkaline phosphatase (ALP) 135 U/L High 45-117 [employer] Work Phone: [phone] Aspartate aminotransferase (AST) 19 U/L Invalid Interpretation Code 15-37 [employer] Work Phone: [phone] Bilirubin (direct) 0.15 mg/dL Invalid Interpretation Code 0.00-0.30 [employer] Work Phone: [phone] Bilirubin (total) 0.60 mg/dL Invalid Interpretation Code 0.20-1.00 [employer] Phone: [phone] Globulin 4.2 g/dL Invalid Interpretation Code 2.2-4.2 [facility] [employer] Work Phone: [phone] Protein 8.1 g/dL Invalid Interpretation Code 6.4-8.2 [employer] Phone: [phone] Office Visiton 06-17-2017 Dietary management education, guidance, and counseling (procedure) yes Invalid Interpretation Code [employer] Phone: [phone] Documentation of current medications (procedure) Done Invalid Interpretation Code [employer] Phone: [phone] Protein mass conc Done Invalid Interpretation Code [facility] Phone: [phone]) Clinical 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: Prelo reproductive healthcare assistant 06-15-2017 Left ventricular Ejection fraction 65 % Invalid Interpretation Code [facility] Phone: [phone]) Office Visit: COPD and nodul ines 03-18-2017 Dietary management education, guidance, and counseling (procedure) yes Invalid Interpretation Code [facility] Phone: Documentation of current medications (procedure) Done Invalid Interpretation Code [facility] Phone: Fall risk assessment No Invalid Interpretation Code [facility] Phone: Protein mass conc Done Invalid Interpretation Code [facility] Phone: [phone]) Tobacco smoking status [facility] Never Invalid Interpretation Code [facility] Phone: [phone] Tobacco smoking status UTIS Tobacco smoking status UTIS Invalid Interpretation Code [facility] Phone: [phone]) Tobacco smoking status [facility] Former smoker Invalid Interpretation Code [facility] Phone: [phone]) Tobacco use [facility] Former smoker Invalid Interpretation Code [facility] Phone: Lab Report: Lipid Profileon 02-24-2017 Cholesterol in HDL mass conc 38 mg/dL Low [employer] Work Phone: [phone] Cholesterol in LDL mass conc 45 mg/dL Invalid Interpretation Code 0-130 [employer] Phone: [phone] Cholesterol mass conc 96 mg/dL Invalid Interpretation Code 200 [employer] Work Phone: [phone] Lipoprotein.pre-beta mass conc 13 mg/dL Invalid Interpretation Code 5-40 [employer] Phone: [phone] Triglyceride mass conc 64 mg/dL Invalid Interpretation Code [employer] Work Phone: [phone] Lab Report: Liver Profileon 02-24-2017 Albumin mass conc 3.6 g/dL Invalid Interpretation Code 3.4-5.0 [employer] Phone: [phone] Alkaline phosphatase (ALP) 118 U/L High 45-117 [employer] Work Phone: [phone] ALP enzyme act/vol (Bld) 118 U/L High 45-117 [employer] Phone: [phone] ALT enzyme act/vol 27 U/L Invalid Interpretation Code 12-78 [employer] Work Phone: [phone] AST enzyme act/vol 17 U/L Invalid Interpretation Code 15-37 [employer] Work Phone: [phone] Bilirubin mass conc 0.50 mg/dL Invalid Interpretation Code 0.20-1.00 [employer] Work Phone: [phone] Bilirubin.direct mass conc 0.12 mg/dL Invalid Interpretation Code 0.00-0.30 [facility] Phone: [phone] Globulin 4.0 g/dL High 2.3-3.5 [employer] Work Phone: [phone] Globulin mass conc (S) 4.0 g/dL High 2.3-3.5 [employer] Phone: [phone] Protein mass conc 7.6 g/dL Invalid Interpretation Code 6.4-8.2 [employer] Phone: [phone]) Office Visiton 02-15-2017 Dietary management education, guidance, and counseling (procedure) yes Invalid Interpretation Code [employer] Phone: [phone] Documentation of current medications (procedure) Done Invalid Interpretation Code [facility] Phone: [phone] Protein mass conc Done [employer] Phone: [phone]) Office Visit: COPD & noduleo n 12-22-2016 Dietary management education, guidance, and counseling (procedure) yes Invalid Interpretation Code [employer] Phone: [phone] Documentation of current medications (procedure) Done Invalid Interpretation Code [employer] Work Phone: [phone] Tobacco smoking status UTIS Never Invalid Interpretation Code [employer] Work Phone: [phone] Tobacco smoking status UTIS Former smoker [employer] Work Phone: [phone] Tobacco use [facility] Former smoker Invalid Interpretation Code [employer] Work Phone: [phone]) Lab Report: Serum Creatinine AND GFRon 12-01-2016 Creatinine 1.63 mg/dL High 0.70-1.30 [employer] Phone: [phone] eGFR (non-black) 54 mL/min/{1.73_m2} Low >60 [employer] Phone: [phone] eGFR (non-black) 44 mL/min/{1.73_m2} Low >60 [employer] Phone: [phone] EST GFR - AA 54 mL/min Low >60 [employer] Work Phone: [phone] Office Visiton 10-02-2016 Cholesterol 161 mg/dL Invalid Interpretation Code [employer] Work Phone: [phone] HDL Cholesterol 35 mg/dL Invalid Interpretation Code [employer] Work Phone: [phone] LDL Cholesterol 102 mg/dL Invalid Interpretation Code [employer] Work Phone: [phone] Triglyceride 118 mg/dL Invalid Interpretation Code [employer] Work Phone: [phone] Chart Maintenanceon 02-12-20 16 Left ventricular Ejection fraction 65 % Invalid Interpretation Code [employer] Work Phone: [phone] Replaced Document: [place] E CG Observationson 11-22-2015 EKG QRS axis 34 deg Invalid Interpretation Code [employer] Work Phone: [phone] electrocardiogram interpretation Atrial fibrillation Low voltage in limb leads. ABNORMAL Invalid Interpretation Code [employer] Work Phone: [phone] GE use only - for [employer] import when terms are not otherwise specified 410 ms Invalid Interpretation Code [facility] Work Phone: [phone] Interpretation Atrial fibrillation Low voltage in limb leads. ABNORMAL Invalid Interpretation Code [facility] Work Phone: [phone] P Emigrant 1 deg Invalid Interpretation Code [facility] Work Phone: [phone] P wave axis, electrocardiogram 1 deg Invalid Interpretation Code [facility] [employer] Work Phone: [phone] Interval 0 ms Invalid Interpretation Code [facility] Work Phone: [phone] interval, electrocardiogram 0 ms Invalid Interpretation Code [facility] [employer] Work Phone: [phone] Pulse (Heart Rate) 82 /min Invalid Interpretation Code [facility] Work Phone: [phone] QRS axis, electrocardiogram 34 deg Invalid Interpretation Code [facility] Work Phone: [phone] QRS Duration 88 ms Invalid Interpretation Code [facility] Work Phone: [phone] QRS duration, electrocardiogram 88 ms Invalid Interpretation Code [facility] Work Phone: [phone] QT Interval new path ms Invalid Interpretation Code [facility] Work Phone: [phone] QT interval, electrocardiogram new path ms Invalid Interpretation Code [facility] Work Phone: [phone] QTc [place] 410 ms Invalid Interpretation Code [employer] Work Phone: [phone] T Emigrant 36 deg Invalid Interpretation Code [employer] Work Phone: [phone] T wave axis, electrocardiogram 36 deg Invalid Interpretation Code [facility] Work Phone: [phone] Lab Report: Basic Metabolic Profile (BMP)on 11-09-2015 Anion gap 6 mmol/L Invalid Interpretation Code 5-15 [facility] Work Phone: [phone] Anion gap 4 molar conc 6 Invalid Interpretation Code 5-15 [facility] Work Phone: [phone] Anion gap molar conc 6 mmol/L 5-[address] [facility] [employer] Work Phone: [phone] BUN/Creatinine Ratio 15.7 RATIO Invalid Interpretation Code 10-20 [facility] Work Phone: [phone] Calcium 9.0 mg/dL Invalid Interpretation Code 8.5-10.1 [facility] Phone: [phone] Chloride 113 mmol/L High 98-107 [employer] Work Phone: [phone] CO2 25.0 mmol/L Invalid Interpretation Code 21.0-32.0 [employer] Work Phone: [phone] CO2 ppres (BldV) 25.0 mmol/L Invalid Interpretation Code 21.0-32.0 [employer] Work Phone: [phone] Glucose 106 mg/dL Invalid Interpretation Code 70-110 [employer] Work Phone: [phone] Glucose mass conc 106 mg/dL Invalid Interpretation Code 70-110 [employer] Work Phone: [phone] Potassium 4.4 mmol/L Invalid Interpretation Code 3.5-5.1 [facility] Work Phone: [phone] Sodium 144 mmol/L Invalid Interpretation Code 136-145 [employer] Work Phone: [phone] Urea nitrogen 18 mg/dL Invalid Interpretation Code 7-18 [employer] Work Phone: [phone] Lab Report: Lipid Profileon 10-11-2015 Cholesterol 176 mg/dL Invalid Interpretation Code 200 [employer] Work Phone: [phone] HDL Cholesterol 41 mg/dL Invalid Interpretation Code [employer] Work Phone: [phone] LDL Cholesterol 101 mg/dL Invalid Interpretation Code 0-130 [employer] Work Phone: [phone] Triglyceride 171 mg/dL Invalid Interpretation Code [employer] Work Phone: [phone] very low density lipoproteins 34 mg/dL Invalid Interpretation Code 5-40 [employer] Work Phone: [phone] Lab Report: Liver Profileon 10-11-2015 Alanine aminotransferase (ALT) 22 U/L Invalid Interpretation Code 12-78 [employer] Work Phone: [phone] Albumin 3.5 g/dL Invalid Interpretation Code 3.4-5.0 [employer] Work Phone: [phone] Alkaline phosphatase (ALP) 119 U/L Invalid Interpretation Code 50-136 [employer] Work Phone: [phone] Aspartate aminotransferase (AST) 13 U/L Low 15-37 [facility] Work Phone: [phone] Bilirubin (direct) 0.14 mg/dL Invalid Interpretation Code 0.00-0.30 [facility] Work Phone: [phone] Bilirubin (total) 0.50 mg/dL Invalid Interpretation Code 0.20-1.00 [facility] Work Phone: [phone] Globulin 4.5 g/dL High 2.3-3.5 [facility] Work Phone: [phone] Protein 8.0 g/dL Invalid Interpretation Code 6.4-8.2 [facility] Work Phone: [phone] Office Visiton 10-08-2015 cardiac risk group B Invalid Interpretation Code [facility] Work Phone: [phone] General cardiovascular disease 10Y risk [#] Mitesh'Machelle Not enough information Invalid Interpretation Code [facility] Work Phone: [phone] Clinical 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: 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 Erythrocytes (RBC) 4.02 10*6/uL Low [facility] Work Phone: [phone] Hematocrit (HCT) 38.1 % Low [facility] Work Phone: [phone] Hematocrit Volume Fraction (Bld) 38.1 % Low [facility] Work Phone: [phone] Hemoglobin (HGB) 12.2 g/dL Low [facility] Work Phone: [phone] Platelets 220 10*3/mm3 Invalid Interpretation Code [facility] Work Phone: [phone] Platelets #/vol (Bld) 220 10*3/mm3 [facility] Work Phone: [phone] RBC #/vol (Bld) 4.02 10*6/uL Low [facility] Work Phone: [phone] WBC #/vol (Bld) 11.3 10*3/uL High [facility] Work Phone: [phone] WBC (Leukocytes) 11.3 10*3/uL High [facility] Work Phone: [phone] Vital Signs Date Time Vital Sign Value Performing Clinician Facility 02-28-2025 08:36-0400 Body mass index (BMI) [Ratio] 39.6 kg/m2 Dr. Tomy Hernandez MD Work Phone: 5(974)301-280175 [place] [address] 02-28-2025 08:36-0400 Body temperature 97.5 [degF] Dr. Tomy Hernandez MD Work Phone: 0(164)556-429075 [place] [address] 02-28-2025 08:36-0400 Body weight 114.[address] Tomy Hernandez MD Work Phone: 1(579)735-031175 [place] [address] 02-28-2025 08:36-0400 Diastolic blood pressure 75 mm[Hg] Dr. Tomy Hernandez MD Work Phone: 9(204)757-300575 [place] [address] 02-28-2025 08:36-0400 Heart rate 71 /min Dr. Tomy Hernandez MD Work Phone: 2(658)399-364575 [place] [address] 02-28-2025 08:36-0400 Inhaled oxygen flow rate 2 L/min Dr. Tomy Hernandez MD Work Phone: 6(939)305-766275 [place] [address] 02-28-2025 08:36-0400 Respiratory rate 18 /min Dr. Tomy Hernandez MD Work Phone: 2(653)852-921775 [place] [address] 02-28-2025 08:36-0400 SaO2% (BldA) [Mass fraction] 96 % Dr. Tomy Hernandez MD Work Phone: 2(821)011-848675 [place] [address] 02-28-2025 08:36-0400 Systolic blood pressure 144 mm[Hg] Dr. Tomy Hernandez MD Work Phone: 4(875)617-967175 [place] [address] 12-15-2024 09:12-0400 Body height 170.[address] Tomy Hernandez MD Work Phone: 4(384)583-762975 [place] [address] 12-15-2024 09:12-0400 Body mass index (BMI) [Ratio] 39.6 kg/m2 Dr. Tomy Hernandez MD Work Phone: 6(728)793-719575 [place] [address] 12-15-2024 09:12-0400 Body weight 114.[address] Tomy Hernandez MD Work Phone: 0(646)538-516002 [place] [address] 12-15-2024 09:12-0400 Diastolic blood pressure 76 mm[Hg] Dr. Tomy Hernandez MD Work Phone: 5(207)396-898275 [place] [address] 12-15-2024 09:12-0400 Heart rate 83 /min Dr. Tomy Hernandez MD Work Phone: 8(740)947-961975 [place] [address] 12-15-2024 09:12-0400 Respiratory rate 18 /min Dr. Tomy Hernandez MD Work Phone: 0(039)418-316975 [place] [address] 12-15-2024 09:12-0400 SaO2% (BldA) [Mass fraction] 96 % Dr. Tomy Hernandez MD Work Phone: 2(845)321-533675 [place] [address] 12-15-2024 09:12-0400 Systolic blood pressure 122 mm[Hg] Dr. Tomy Hernandez MD Work Phone: 0(125)683-825575 [place] [address] 01-13-2024 13:00-0400 Body height 170.[address] Tomy Hernandez Work Phone: 9(535)383-399275 [place] [address] 01-13-2024 13:00-0400 Body weight 112.[address] Tomy Hernandez Work Phone: 2(621)044-622075 [place] [address] 01-13-2024 13:00-0400 Heart rate 68 /min Dr. Tomy Hernandez Work Phone: 7(432)682-794975 [place] [address] 01-13-2024 13:00-0400 SaO2% (BldA) [Mass fraction] 93 % Dr. Tomy Hernandez Work Phone: 6(414)998-189975 [place] [address] 01-04-2024 08:53-0400 Body mass index (BMI) [Ratio] 38.2 kg/m2 Dr. Tomy Hernandez Work Phone: 4(467)016-186075 [place] [address] 01-04-2024 08:53-0400 Body temperature 98.4 [degF] Dr. Tomy Hernandez Work Phone: 5(342)487-120275 [place] [address] 04-23-2024 08:53-0400 Body weight 110.[address] Tomy Hernandez Work Phone: 1(091)276-252102 [place] [address] 01-04-2024 08:53-0400 Diastolic blood pressure 83 mm[Hg] Dr. Tomy Hernandez Work Phone: 0(081)976-336602 [place] [address] 01-04-2024 08:53-0400 Heart rate 73 /min Dr. Tomy Hernandez Work Phone: 0(182)646-847775 [place] [address] 01-04-2024 08:53-0400 SaO2% (BldA) [Mass fraction] 95 % Dr. Tomy Hernandez Work Phone: 9(459)756-269175 [place] [address] 01-04-2024 08:53-0400 Systolic blood pressure 144 mm[Hg] Dr. Tomy Hernandez Work Phone: 8(295)200-355675 [place] [address] 12-01-2023 11:04-0400 Body mass index (BMI) [Ratio] 37.5 kg/m2 Dr. Tomy Hernandez Work Phone: 4(124)182-571075 [place] [address] 12-01-2023 11:04-0400 Body temperature 96.6 [degF] Dr. Tomy Hernandez Work Phone: 6(216)601-509475 [place] [address] 12-01-2023 11:04-0400 Diastolic blood pressure 75 mm[Hg] Dr. Tomy Hernandez Work Phone: 8(809)953-902075 [place] [address] 12-01-2023 11:04-0400 Heart rate 72 /min Dr. Tomy Hernandez Work Phone: 3(155)845-373602 [place] [address] 12-01-2023 11:04-0400 Respiratory rate 18 /min Dr. Tomy Hernandez Work Phone: 9(612)156-777102 [place] [address] 12-01-2023 11:04-0400 Systolic blood pressure 156 mm[Hg] Dr. Tomy Hernandez Work Phone: 5(437)996-347975 [place] [address] 11-12-2023 00:42-0500 Body weight 108.[address] Tomy Hernandez Work Phone: 2(347)158-944875 [place] [address] 11-08-2023 13:11-0500 Body height 170.[address] Tomy Hernandez Work Phone: [facility] 11-08-2023 13:11-0500 Body mass index (BMI) [Ratio] 37.5 kg/m2 Dr. Tomy Hernandez Work Phone: [facility] 11-08-2023 13:11-0500 Body temperature 97.8 [degF] Dr. Tomy Hernandez Work Phone: 9(471)604-966702 [place] [address] 11-08-2023 13:11-0500 Body weight 108.[address] Tomy Hernandez Work Phone: 6(958)914-107902 [place] [address] 11-08-2023 13:11-0500 Diastolic blood pressure 77 mm[Hg] Dr. Tomy Hernandez Work Phone: 8(708)468-946975 [place] [address] 11-08-2023 13:11-0500 Heart rate 90 /min Dr. Tomy Hernandez Work Phone: 8(135)659-200502 [place] [address] 11-08-2023 13:11-0500 Respiratory rate 18 /min Dr. Tomy Hernandez Work Phone: 9(455)254-682302 [place] [address] 11-08-2023 13:11-0500 Systolic blood pressure 159 mm[Hg] Dr. Tomy Hernandez Work Phone: [facility] 11-04-2023 13:46-0500 Diastolic blood pressure 75 mm[Hg] Tomy Hernandez MD Work Phone: [facility] 11-04-2023 13:46-0500 Heart rate 88 /min Tomy Hernandez MD Work Phone: [facility] 11-04-2023 13:46-0500 Systolic blood pressure 138 mm[Hg] Tomy Hernandez MD Work Phone: [facility] 11-04-2023 13:41-0500 Body temperature 98.2 [degF] Tomy Hernandez MD Work Phone: [facility] 11-04-2023 13:41-0500 Body weight 109.23 kg Tomy Hernandez MD Work Phone: [facility] 11-04-2023 13:41-0500 Respiratory rate 20 /min Tomy Hernandez MD Work Phone: [facility] 10-18-2023 14:35-0500 Body temperature 98.49 [degF] Tomy Hernandez MD Work Phone: [facility] 10-18-2023 14:35-0500 Body weight 107.5 kg Tomy Hernandez MD Work Phone: [facility] 10-18-2023 14:35-0500 Diastolic blood pressure 80 mm[Hg] Tomy Hernandez MD Work Phone: [facility] 10-18-2023 14:35-0500 Heart rate 80 /min Tomy Hernandez MD Work Phone: [facility] 10-18-2023 14:35-0500 Respiratory rate 20 /min Tomy Hernandez MD Work Phone: [facility] 10-18-2023 14:35-0500 Systolic blood pressure 146 mm[Hg] Tomy Hernandez MD Work Phone: [facility] 09-02-2023 11:55-0500 Body temperature 98.1 [degF] Dr. Tomy Hernandez Work Phone: [facility] 09-02-2023 11:55-0500 Diastolic blood pressure 59 mm[Hg] Dr. Tomy Hernandez Work Phone: [facility] 09-02-2023 11:55-0500 Heart rate 78 /min Dr. Tomy Hernandez Work Phone: [facility] 09-02-2023 11:55-0500 Respiratory rate 18 /min Dr. Tomy Hernandez Work Phone: [facility] 09-02-2023 11:55-0500 SaO2% (BldA) [Mass fraction] 96 % Dr. Tomy Hernandez Work Phone: 5(792)282-145475 [place] [address] 09-02-2023 11:55-0500 Systolic blood pressure 111 mm[Hg] Dr. Tomy Hernandez Work Phone: 6(812)083-086075 [place] [address] 09-02-2023 11:18-0500 Inhaled oxygen flow rate 93 L/min Dr. Tomy Hernandez Work Phone: 7(926)874-787375 [place] [address] 09-01-2023 12:07-0500 Body height 170.[address] Tomy Hernandez Work Phone: 3(305)169-826675 [place] [address] 09-01-2023 12:07-0500 Body mass index (BMI) [Ratio] 38 kg/m2 Dr. Tomy Hernandez Work Phone: 5(237)312-665775 [place] [address] 09-01-2023 12:07-0500 Body weight [address] Tomy Hernandez Work Phone: 5(037)022-526775 [place] [address] 08-19-2023 13:06-0500 Body mass index (BMI) [Ratio] 37.3 kg/m2 Dr. Tomy Hernandez Work Phone: 5(284)679-204475 [place] [address] 08-19-2023 13:06-0500 Body weight 107.[address] Tomy Hernandez Work Phone: 0(113)559-129375 [place] [address] 08-19-2023 13:06-0500 Diastolic blood pressure 75 mm[Hg] Dr. Tomy Hernandez Work Phone: 0(029)652-981975 [place] [address] 08-19-2023 13:06-0500 Heart rate 71 /min Dr. Tomy Hernandez Work Phone: 6(601)483-694175 [place] [address] 08-19-2023 13:06-0500 Respiratory rate 18 /min Dr. Tomy Hernandez Work Phone: 3(054)830-874175 [place] [address] 08-19-2023 13:06-0500 SaO2% (BldA) [Mass fraction] 90 % Dr. Tomy Hernandez Work Phone: 9(406)118-547875 [place] [address] 08-19-2023 13:06-0500 Systolic blood pressure 143 mm[Hg] Dr. Tomy Hernandez Work Phone: [facility] 08-16-2023 13:32-0500 Body weight 107.96 kg Tomy Hernandez MD Work Phone: [facility] 08-16-2023 13:32-0500 Diastolic blood pressure 68 mm[Hg] Tomy Hernandez MD Work Phone: [facility] 08-16-2023 13:32-0500 Heart rate 76 /min Tomy Hernandez MD Work Phone: [facility] 08-16-2023 13:32-0500 Respiratory rate 20 /min Tomy Hernandez MD Work Phone: [facility] 08-16-2023 13:32-0500 Systolic blood pressure 136 mm[Hg] Tomy Hernandez MD Work Phone: [facility] 06-30-2023 12:39-0400 Body height 170.[address] Tomy Hernandez Work Phone: 7(436)448-235802 [place] [address] 06-30-2023 12:35-0400 Body mass index (BMI) [Ratio] 36.1 kg/m2 Dr. Tomy Hernandez Work Phone: 8(721)039-162875 [place] [address] 06-30-2023 12:35-0400 Body temperature 97.5 [degF] Dr. Tomy Hernandez Work Phone: 1(637)203-118675 [place] [address] 06-30-2023 12:35-0400 Body weight 104.[address] Tomy Hernandez Work Phone: 8(762)757-798975 [place] [address] 06-30-2023 12:35-0400 Diastolic blood pressure 65 mm[Hg] Dr. Tomy Hernandez Work Phone: 0(712)688-404202 [place] [address] 06-30-2023 12:35-0400 Heart rate 75 /min Dr. Tomy Hernandez Work Phone: 9(169)609-066575 [place] [address] 06-30-2023 12:35-0400 Respiratory rate 18 /min Dr. Tomy Hernandez Work Phone: 2(092)086-449975 [place] [address] 06-30-2023 12:35-0400 SaO2% (BldA) [Mass fraction] 94 % Dr. Tomy Hernandez Work Phone: 0(466)608-269375 [place] [address] 06-30-2023 12:35-0400 Systolic blood pressure 145 mm[Hg] Dr. Tomy Hernandez Work Phone: 0(600)636-903575 [place] [address] 06-09-2023 08:32-0400 Body temperature 97.6 [degF] Dr. Tomy Hernandez Work Phone: 0(408)169-244075 [place] [address] 06-09-2023 08:32-0400 Diastolic blood pressure 68 mm[Hg] Dr. Tomy Hernandez Work Phone: 4(090)221-030375 [place] [address] 06-09-2023 08:32-0400 Heart rate 62 /min Dr. Tomy Hernandez Work Phone: 7(369)373-951675 [place] [address] 06-09-2023 08:32-0400 Respiratory rate 18 /min Dr. Tomy Hernanedz Work Phone: 4(177)956-701575 [place] [address] 06-09-2023 08:32-0400 SaO2% (BldA) [Mass fraction] 93 % Dr. Tomy Hernandez Work Phone: 1(197)510-990375 [place] [address] 06-09-2023 08:32-0400 Systolic blood pressure 106 mm[Hg] Dr. Tomy Hernandez Work Phone: 2(299)946-907175 [place] [address] 06-09-2023 08:21-0400 Inhaled oxygen flow rate 2 L/min Dr. Tomy Hernandez Work Phone: 3(942)017-824775 [place] [address] 06-09-2023 06:47-0400 Body height 170.[address] Tomy Hernandez Work Phone: 3(524)803-472675 [place] [address] 06-09-2023 06:47-0400 Body mass index (BMI) [Ratio] 36.5 kg/m2 Dr. Tomy Hernandez Work Phone: 8(086)374-008675 [place] [address] 06-09-2023 06:47-0400 Body weight 105.[address] Tomy Hernandez Work Phone: [facility] 05-18-2023 12:52-0400 Body mass index (BMI) [Ratio] 36.9 kg/m2 Dr. Tomy Hernandez Work Phone: [facility] 05-18-2023 12:52-0400 Body weight 107.[address] Tomy Hernandez Work Phone: [facility] 05-18-2023 12:52-0400 Diastolic blood pressure 66 mm[Hg] Dr. Tomy Hernandez Work Phone: [facility] 05-18-2023 12:52-0400 Heart rate 77 /min Dr. Tomy Hernandez Work Phone: [facility] 05-18-2023 12:52-0400 Respiratory rate 18 /min Dr. Tomy Hernandez Work Phone: [facility] 05-18-2023 12:52-0400 SaO2% (BldA) [Mass fraction] 93 % Dr. Tomy Hernandez Work Phone: [facility] 05-18-2023 12:52-0400 Systolic blood pressure 152 mm[Hg] Dr. Tomy Hernandez Work Phone: [facility] 03-22-2023 17:08-0400 Body height 165.7 cm Tomy Hernandez MD Work Phone: [facility] 03-22-2023 17:08-0400 Body weight 105.64 kg Tomy Hernandez MD Work Phone: [facility] 03-22-2023 17:08-0400 Diastolic blood pressure 76 mm[Hg] Tomy Hernandez MD Work Phone: [facility] 03-22-2023 17:08-0400 Respiratory rate 28 /min Tomy Hernandez MD Work Phone: [facility] 03-22-2023 17:08-0400 SaO2% (BldA) [Mass fraction] 97 % Tomy Hernandez MD Work Phone: [facility] 03-22-2023 17:08-0400 Systolic blood pressure 134 mm[Hg] Tomy Hernandez MD Work Phone: [facility] 03-11-2023 13:04-0400 Body height 170.[address] Tomy Hernandez Work Phone: [facility] 03-11-2023 13:04-0400 Body mass index (BMI) [Ratio] 36.8 kg/m2 Dr. Tomy Hernandez Work Phone: [facility] 03-11-2023 13:04-0400 Body weight 106.[address] Tomy Hernandez Work Phone: [facility] 03-11-2023 13:04-0400 Diastolic blood pressure 69 mm[Hg] Dr. Tomy Hernandez Work Phone: [facility] 03-11-2023 13:04-0400 Heart rate 62 /min Dr. Tomy Hernandez Work Phone: [facility] 03-11-2023 13:04-0400 Respiratory rate 18 /min Dr. Tomy Hernandez Work Phone: [facility] 03-11-2023 13:04-0400 SaO2% (BldA) [Mass fraction] 93 % Dr. Tomy Hernandez Work Phone: [facility] 03-11-2023 13:04-0400 Systolic blood pressure 132 mm[Hg] Dr. Tomy Hernandez Work Phone: [facility] 02-03-2023 10:55-0400 Body mass index (BMI) [Ratio] 37 kg/m2 Dr. Tomy Hernandez Work Phone: [facility] 02-03-2023 10:55-0400 Body temperature 98 [degF] Dr. Tomy Hernandez Work Phone: [facility] 02-03-2023 10:55-0400 Body weight 107.[address] Tomy Hernandez Work Phone: 2(974)905-200102 [place] [address] 02-03-2023 10:55-0400 Diastolic blood pressure 90 mm[Hg] Dr. Tomy Hernandez Work Phone: 7(275)792-271602 [place] [address] 02-03-2023 10:55-0400 Heart rate 88 /min Dr. Tomy Hernandez Work Phone: 8(630)637-223975 [place] [address] 02-03-2023 10:55-0400 Respiratory rate 20 /min Dr. Tomy Hernandez Work Phone: 7(202)968-449775 [place] [address] 02-03-2023 10:55-0400 SaO2% (BldA) [Mass fraction] 95 % Dr. Tomy Hernandez Work Phone: 0(398)182-253575 [place] [address] 02-03-2023 10:55-0400 Systolic blood pressure 130 mm[Hg] Dr. Tomy Hernandez Work Phone: 3(022)072-846675 [place] [address] 12-02-2022 10:30-0400 Body temperature 97.6 [degF] Dr. Tomy Hernandez Work Phone: 3(761)893-820975 [place] [address] 12-02-2022 10:30-0400 Diastolic blood pressure 44 mm[Hg] Dr. Tomy Hernandez Work Phone: 7(923)771-004775 [place] [address] 12-02-2022 10:30-0400 Heart rate 58 /min Dr. Tomy Hernandez Work Phone: 6(450)269-898802 [place] [address] 12-02-2022 10:30-0400 Respiratory rate 16 /min Dr. Tomy Hernandez Work Phone: 9(505)475-358975 [place] [address] 12-02-2022 10:30-0400 SaO2% (BldA) [Mass fraction] 92 % Dr. Tomy Hernandez Work Phone: 4(549)824-977375 [place] [address] 12-02-2022 10:30-0400 Systolic blood pressure 119 mm[Hg] Dr. Tomy Hernandez Work Phone: 5(728)705-370275 [place] [address] 12-02-2022 07:08-0400 Body height 170.[address] Tomy Hernandez Work Phone: 9(412)405-118975 [place] [address] 12-02-2022 07:08-0400 Body mass index (BMI) [Ratio] 38 kg/m2 Dr. Tomy Hernandez Work Phone: 4(493)223-343175 [place] [address] 12-02-2022 07:08-0400 Body weight 110.[address] Tomy Hernandez Work Phone: 3(017)988-637975 [place] [address] 10-30-2022 13:35-0500 Body mass index (BMI) [Ratio] 38.3 kg/m2 Dr. Tomy Hernandez Work Phone: 6(456)914-648575 [place] [address] 10-30-2022 13:35-0500 Body temperature 97.9 [degF] Dr. Tomy Hernandez Work Phone: 7(800)791-202275 [place] [address] 10-30-2022 13:35-0500 Body weight 111.[address] Tomy Hernandez Work Phone: 6(690)880-034975 [place] [address] 10-30-2022 13:35-0500 Diastolic blood pressure 72 mm[Hg] Dr. Tomy Hernandez Work Phone: 5(479)082-423375 [place] [address] 10-30-2022 13:35-0500 Heart rate 69 /min Dr. Tomy Hernandez Work Phone: 8(630)552-854775 [place] [address] 10-30-2022 13:35-0500 Respiratory rate 17 /min Dr. Tomy Hernandez Work Phone: 8(806)319-017475 [place] [address] 10-30-2022 13:35-0500 SaO2% (BldA) [Mass fraction] 93 % Dr. Tomy Hernandez Work Phone: 8(416)978-799775 [place] [address] 10-30-2022 13:35-0500 Systolic blood pressure 155 mm[Hg] Dr. Tomy Hernandez Work Phone: 4(868)343-627375 [place] [address] 2022 13:02-0500 Body mass index (BMI) [Ratio] 37.4 kg/m2 Dr. Tomy Hernandez Work Phone: 9(951)191-516375 [place] [address] 2022 13:02-0500 Body weight 111.[address] Tomy Hernandez Work Phone: [facility] 2022 13:02-0500 Diastolic blood pressure 68 mm[Hg] Dr. Tomy Hernandez Work Phone: [facility] 2022 13:02-0500 Heart rate 76 /min Dr. Tomy Hernandez Work Phone: [facility] 2022 13:02-0500 Respiratory rate 18 /min Dr. Tomy Hernandez Work Phone: [facility] 2022 13:02-0500 Systolic blood pressure 140 mm[Hg] Dr. Tomy Hernandez Work Phone: [facility] 06-30-2022 13:25-0400 Body weight 109.32 kg Tamika Dutta APRN.ASSOCIATE PROFESSOR OF HISTORY Work Phone: [facility] 06-30-2022 13:25-0400 Diastolic blood pressure 70 mm[Hg] Tamika Dutta APRN.ASSOCIATE PROFESSOR OF HISTORY Work Phone: [facility] 06-30-2022 13:25-0400 Heart rate 77 /min Tamika Dutta APRN.ASSOCIATE PROFESSOR OF HISTORY Work Phone: [facility] 06-30-2022 13:25-0400 SaO2% (BldA) [Mass fraction] 95 % Tamika Dutta APRN.ASSOCIATE PROFESSOR OF HISTORY Work Phone: [facility] 06-30-2022 13:25-0400 Systolic blood pressure 130 mm[Hg] Tamika Dutta APRN.ASSOCIATE PROFESSOR OF HISTORY Work Phone: [facility] 06-18-2022 09:19-0400 Body height 172.[address] Tomy Hernandez Work Phone: [facility] Work Phone: 06-18-2022 09:10-0400 Body mass index (BMI) [Ratio] 36.9 kg/m2 Dr. Tomy Hernandez Work Phone: [facility] Work Phone: 06-18-2022 09:10-0400 Body temperature 98.9 [degF] Dr. Tomy Hernandez Work Phone: [facility] Work Phone: 06-18-2022 09:10-0400 Body weight 110.[address] Tomy Hernandez Work Phone: [facility] Work Phone: 06-18-2022 09:10-0400 Diastolic blood pressure 80 mm[Hg] Dr. Tomy Hernandez Work Phone: [facility] Work Phone: 06-18-2022 09:10-0400 Heart rate 70 /min Dr. Tomy Hernandez Work Phone: [facility] Work Phone: 06-18-2022 09:10-0400 Respiratory rate 20 /min Dr. Tomy Hernandez Work Phone: [facility] Work Phone: 06-18-2022 09:10-0400 SaO2% (BldA) [Mass fraction] 96 % Dr. Tomy Hernandez Work Phone: [facility] Work Phone: 06-18-2022 09:10-0400 Systolic blood pressure 126 mm[Hg] Dr. Tomy Hernandez Work Phone: [facility] Work Phone: 05-06-2022 11:55-0400 Body temperature 97.9 [degF] Dr. Tomy Hernandez Work Phone: [facility] Work Phone: 05-06-2022 11:55-0400 Diastolic blood pressure 67 mm[Hg] Dr. Tomy Hernandez Work Phone: [facility] Work Phone: 05-06-2022 11:55-0400 Heart rate 79 /min Dr. Tmoy Hernandez Work Phone: [facility] [facility] Work Phone: 05-06-2022 11:55-0400 Respiratory rate 20 /min Dr. Tomy Hernandez Work Phone: [facility] Work Phone: 05-06-2022 11:55-0400 SaO2% (BldA) [Mass fraction] 95 % Dr. Tomy Hernandez Work Phone: [facility] Work Phone: 05-06-2022 11:55-0400 Systolic blood pressure 105 mm[Hg] Dr. Tomy Hernandez Work Phone: [facility] Work Phone: 05-06-2022 11:45-0400 Inhaled oxygen flow rate 1 L/min Dr. Tomy Hernandez Work Phone: [facility] Work Phone: 05-06-2022 09:06-0400 Body height 172.[address] Tomy Hernandez Work Phone: [facility] Work Phone: 05-06-2022 09:06-0400 Body mass index (BMI) [Ratio] 35.5 kg/m2 Dr. Tomy Hernandez Work Phone: [facility] Work Phone: 05-06-2022 09:06-0400 Body weight [address] Tomy Hernandez Work Phone: [facility] Work Phone: 04-28-2022 12:49-0400 Body mass index (BMI) [Ratio] 36.3 kg/m2 Dr. Tomy Hernandez Work Phone: [facility] Work Phone: 04-28-2022 12:49-0400 Body weight 108.[address] Tomy Hernandez Work Phone: [facility] Work Phone: 04-28-2022 12:49-0400 Diastolic blood pressure 72 mm[Hg] Dr. Tomy Hernandez Work Phone: [facility] Work Phone: 04-28-2022 12:49-0400 Heart rate 88 /min Dr. Tomy Hernandez Work Phone: [facility] Work Phone: 04-28-2022 12:49-0400 Respiratory rate 18 /min Dr. Tomy Hernandez Work Phone: [facility] Work Phone: 04-28-2022 12:49-0400 SaO2% (BldA) [Mass fraction] 96 % Dr. Tomy Hernandez Work Phone: [facility] Work Phone: 04-28-2022 12:49-0400 Systolic blood pressure 143 mm[Hg] Dr. Tomy Hernandez Work Phone: [facility] Work Phone: 04-06-2022 13:17-0400 Body mass index (BMI) [Ratio] 36.6 kg/m2 Dr. Tomy Hernandez Work Phone: [facility] Work Phone: 04-06-2022 13:17-0400 Body temperature 97.7 [degF] Dr. Tomy Hernandez Work Phone: [facility] Work Phone: 04-06-2022 13:17-0400 Body weight 109.[address] Tomy Hernandez Work Phone: [facility] Work Phone: 04-06-2022 13:17-0400 Diastolic blood pressure 68 mm[Hg] Dr. Tomy Hernandez Work Phone: [facility] Work Phone: 04-06-2022 13:17-0400 Heart rate 80 /min Dr. Tomy Hernandez Work Phone: [facility] Work Phone: 04-06-2022 13:17-0400 Respiratory rate 18 /min Dr. Tomy Hernandez Work Phone: [facility] Work Phone: 04-06-2022 13:17-0400 SaO2% (BldA) [Mass fraction] 95 % Dr. Tomy Hernandez Work Phone: [facility] Work Phone: 04-06-2022 13:17-0400 Systolic blood pressure 151 mm[Hg] Dr. Tomy Hernandez Work Phone: [facility] Work Phone: 03-18-2022 09:13-0400 Body temperature 97.2 [degF] Tomy Hernandez MD Work Phone: [facility] 03-18-2022 09:13-0400 Body weight 108.95 kg Tomy Hernandez MD Work Phone: [facility] 03-18-2022 09:13-0400 Diastolic blood pressure 64 mm[Hg] Tomy Hernandez MD Work Phone: [facility] 03-18-2022 09:13-0400 Heart rate 72 /min Tomy Hernandez MD Work Phone: [facility] 03-18-2022 09:13-0400 Respiratory rate 18 /min Tomy Hernandez MD Work Phone: [facility] 03-18-2022 09:13-0400 Systolic blood pressure 120 mm[Hg] Tomy Hernandez MD Work Phone: [facility] 01-26-2022 15:39-0400 Body temperature 99.1 [degF] Javier Starr MD Work Phone: [facility] 01-26-2022 15:39-0400 Body weight 109.14 kg Javier Starr MD Work Phone: [facility] 01-26-2022 15:39-0400 Diastolic blood pressure 68 mm[Hg] Javier Starr MD Work Phone: [facility] 01-26-2022 15:39-0400 Heart rate 100 /min Javier Strar MD Work Phone: [facility] 01-26-2022 15:39-0400 Respiratory rate 18 /min Javier Starr MD Work Phone: [facility] 01-26-2022 15:39-0400 SaO2% (BldA) [Mass fraction] 94 % Javier Starr MD Work Phone: [facility] 01-26-2022 15:39-0400 Systolic blood pressure 140 mm[Hg] Javier Starr MD Work Phone: [facility] 01-26-2022 11:09-0400 Body mass index (BMI) [Ratio] 38.2 kg/m2 Dr. Tomy Hernandez Work Phone: [facility] Work Phone: 01-26-2022 11:09-0400 Body temperature 97.6 [degF] Dr. Tomy Hernandez Work Phone: [facility] Work Phone: 01-26-2022 11:09-0400 Body weight 110.[address] Tomy Hernandez Work Phone: [facility] Work Phone: 01-26-2022 11:09-0400 Diastolic blood pressure 69 mm[Hg] Dr. Tomy Hernandez Work Phone: [facility] Work Phone: 01-26-2022 11:09-0400 Heart rate 72 /min Dr. Tomy Hernandez Work Phone: [facility] Work Phone: 01-26-2022 11:09-0400 Respiratory rate 16 /min Dr. Tomy Hernandez Work Phone: [facility] Work Phone: 01-26-2022 11:09-0400 SaO2% (BldA) [Mass fraction] 93 % Dr. Tomy Hernandez Work Phone: [facility] Work Phone: 01-26-2022 11:09-0400 Systolic blood pressure 140 mm[Hg] Dr. Tomy Hernandez Work Phone: [facility] Work Phone: 01-05-2022 09:01-0400 Body height 170.[address] Tomy Hernandez Work Phone: [facility] Work Phone: 01-05-2022 09:01-0400 Body mass index (BMI) [Ratio] 38.2 kg/m2 Dr. Tomy Hernandez Work Phone: [facility] Work Phone: 01-05-2022 09:01-0400 Body weight 110.[address] Tomy Hernandez Work Phone: [facility] Work Phone: 01-01-2022 12:40-0400 Body weight 110.[address] Tomy Hernandez Work Phone: [facility] Work Phone: 01-01-2022 12:40-0400 Heart rate 73 /min Dr. Tomy Hernandez Work Phone: [facility] Work Phone: 01-01-2022 12:40-0400 SaO2% (BldA) [Mass fraction] 96 % Dr. Tomy Hernandez Work Phone: [facility] Work Phone: 12-30-2021 13:47-0400 Body height 168.9 cm Tamika Dutta APRN.CNP Work Phone: [facility] 12-30-2021 13:47-0400 Body weight 101.61 kg Tamika Dutta CHLORINATOR OPERATOR.ASSOCIATE PROFESSOR OF HISTORY Work Phone: [facility] 12-30-2021 13:47-0400 Diastolic blood pressure 64 mm[Hg] Tamika Dutta CHLORINATOR OPERATOR.ASSOCIATE PROFESSOR OF HISTORY Work Phone: [facility] 12-30-2021 13:47-0400 Heart rate 78 /min Tamika Luzmaria CHLORINATOR OPERATOR.ASSOCIATE PROFESSOR OF HISTORY Work Phone: [facility] 12-30-2021 13:47-0400 Respiratory rate 18 /min Tamika Luzmaria CHLORINATOR OPERATOR.ASSOCIATE PROFESSOR OF HISTORY Work Phone: [facility] 12-30-2021 13:47-0400 SaO2% (BldA) [Mass fraction] 97 % Tamika Dutta CHLORINATOR OPERATOR.ASSOCIATE PROFESSOR OF HISTORY Work Phone: [facility] 12-30-2021 13:47-0400 Systolic blood pressure 138 mm[Hg] Tamika Dutta CHLORINATOR OPERATOR.ASSOCIATE PROFESSOR OF HISTORY Work Phone: [facility] 12-15-2021 12:04-0400 Body weight 110.[address] Tomy Hernandez Work Phone: [facility] Work Phone: 11-20-2021 11:58-0500 Body height 172.[address] Tomy Hernandez Work Phone: [facility] Work Phone: 11-20-2021 11:58-0500 Body mass index (BMI) [Ratio] 37 kg/m2 Dr. Tomy Hernandez Work Phone: [facility] Work Phone: 11-20-2021 11:58-0500 Body weight 110.[address] Tomy Hernandez Work Phone: [facility] Work Phone: 11-20-2021 11:58-0500 Diastolic blood pressure 77 mm[Hg] Dr. Tomy Hernandez Work Phone: [facility] Work Phone: 11-20-2021 11:58-0500 Heart rate 84 /min Dr. Tomy Hernandez Work Phone: [facility] Work Phone: 11-20-2021 11:58-0500 Respiratory rate 18 /min Dr. Tomy Hernandez Work Phone: [facility] Work Phone: 11-20-2021 11:58-0500 SaO2% (BldA) [Mass fraction] 93 % Dr. Tomy Hernandez Work Phone: [facility] Work Phone: 11-20-2021 11:58-0500 Systolic blood pressure 147 mm[Hg] Dr. Tomy Hernandez Work Phone: [facility] Work Phone: 11-17-2021 08:12-0500 Body weight 112.[address] Tomy Hernandez Work Phone: [facility] Work Phone: 10-16-2021 10:12-0500 Body weight 111.[address] Tomy Hernandez Work Phone: [facility] Work Phone: 09-18-2021 08:41-0500 Body mass index (BMI) [Ratio] 36.6 kg/m2 Dr. Tomy Hernandez Work Phone: [facility] Work Phone: 09-18-2021 08:41-0500 Body temperature 97.6 [degF] Dr. Tomy Hernandez Work Phone: [facility] Work Phone: 09-18-2021 08:41-0500 Body weight 109.[address] Tomy Hernandez Work Phone: [facility] Work Phone: 09-18-2021 08:41-0500 Diastolic blood pressure 74 mm[Hg] Dr. Tomy Hernandez Work Phone: [facility] Work Phone: 09-18-2021 08:41-0500 Heart rate 90 /min Dr. Tomy Hernandez Work Phone: [facility] Work Phone: 09-18-2021 08:41-0500 Respiratory rate 18 /min Dr. Tomy Hernandez Work Phone: [facility] Work Phone: 09-18-2021 08:41-0500 SaO2% (BldA) [Mass fraction] 95 % Dr. Tomy Hernandez Work Phone: [facility] Work Phone: 09-18-2021 08:41-0500 Systolic blood pressure 128 mm[Hg] Dr. Tomy Hernandez Work Phone: [facility] Work Phone: 08-21-2021 12:05-0500 Body mass index (BMI) [Ratio] 36.6 kg/m2 Dr. Tomy Hernandez Work Phone: [facility] Work Phone: 08-21-2021 12:05-0500 Body weight 109.[address] Tomy Hernandez Work Phone: [facility] Work Phone: 08-21-2021 12:05-0500 Diastolic blood pressure 74 mm[Hg] Dr. Tomy Hernandez Work Phone: [facility] Work Phone: 08-21-2021 12:05-0500 Heart rate 90 /min Dr. Tomy Hernandez Work Phone: [facility] Work Phone: 08-21-2021 12:05-0500 Respiratory rate 18 /min Dr. Tomy Hernandez Work Phone: [facility] Work Phone: 08-21-2021 12:05-0500 SaO2% (BldA) [Mass fraction] 95 % Dr. Tomy Hernandez Work Phone: [facility] Work Phone: 08-21-2021 12:05-0500 Systolic blood pressure 128 mm[Hg] Dr. Tomy Hernandez Work Phone: [facility] Work Phone: 11-07-2020 05:03-0500 SaO2% (BldA) [Mass fraction] 94 % [facility] Comment on above: Order Comment: [place]: Performed By: #### [id number], [id number] #### [facility] [address]# [phone] 06-17-2017 12:36-0400 BMI (Body Mass Index) 38.16 kg/m2 [facility] Work Phone: 06-17-2017 12:36-0400 BP Diastolic 70 mm[Hg] [facility] Work Phone: 06-17-2017 12:36-0400 BP Systolic 134 mm[Hg] [facility] Work Phone: 06-17-2017 12:36-0400 Height 172.72 cm [facility] Work Phone: 06-17-2017 12:36-0400 Pulse (Heart Rate) 88 /min [facility] Work Phone: 06-17-2017 12:36-0400 Respiratory Rate 18 /min [facility] Work Phone: 06-17-2017 12:36-0400 Weight 113.85 kg [facility] Work Phone: 03-18-2017 09:04-0400 BMI (Body Mass Index) 37.4 kg/m2 [facility] [place] Work Phone: 03-18-2017 09:04-0400 Body Temperature 98.2 [degF] [facility] Work Phone: 03-18-2017 09:04-0400 BP Diastolic 76 mm[Hg] [facility] Work Phone: 03-18-2017 09:04-0400 BP Systolic 120 mm[Hg] [facility] [place] Work Phone: 03-18-2017 09:04-0400 Height 172.72 cm [facility] Work Phone: 03-18-2017 09:04-0400 Pulse (Heart Rate) 85 /min [facility] [place] Work Phone: 03-18-2017 09:04-0400 Respiratory Rate 18 /min [facility] [place] Work Phone: 03-18-2017 09:04-0400 Weight 111.59 kg [facility] [place] Work Phone: 02-15-2017 13:09-0400 BMI (Body Mass Index) 37.55 kg/m2 Jeff Bowie MD [facility] Work Phone: 02-15-2017 13:09-0400 BP Diastolic 62 mm[Hg] Jeff Bowie MD [facility] Work Phone: 02-15-2017 13:09-0400 BP Systolic 124 mm[Hg] Jeff Bowie MD [facility] Work Phone: 02-15-2017 13:09-0400 Height 172.72 cm Jeff Bowie MD [facility] Work Phone: 02-15-2017 13:09-0400 Pulse (Heart Rate) 100 /min [facility] Work Phone: 02-15-2017 13:09-0400 Pulse Oximetry 96 % Jeff Bowie MD [facility] Work Phone: 02-15-2017 13:09-0400 Respiratory Rate 20 /min Jeff Bowie MD [facility] Work Phone: 02-15-2017 13:09-0400 Weight 112.04 kg Jeff Bowie MD [facility] Work Phone: 12-22-2016 07:41-0400 BMI (Body Mass Index) 37.7 kg/m2 [facility] Work Phone: 12-22-2016 07:41-0400 Body Temperature 97.3 [degF] [facility] Work Phone: 12-22-2016 07:41-0400 BP Diastolic 85 mm[Hg] [facility] Work Phone: 12-22-2016 07:41-0400 BP Systolic 123 mm[Hg] [facility] Work Phone: 12-22-2016 07:41-0400 Height 172.72 cm [facility] Work Phone: 12-22-2016 07:41-0400 Pulse (Heart Rate) 74 /min [facility] Work Phone: 12-22-2016 07:41-0400 Pulse Oximetry 98 % [facility] Work Phone: 12-22-2016 07:41-0400 Respiratory Rate 18 /min [facility] Work Phone: 12-22-2016 07:41-0400 Weight 112.49 kg [facility] Work Phone: 08-03-2016 09:21-0500 Pulse Oximetry 98 % [facility] Work Phone: 06-23-2016 07:54-0400 Body Temperature 98.42 [degF] [facility] Work Phone: 06-23-2016 07:54-0400 BSA (Body Surface Area) 2.19 m2 [facility] Work Phone: 06-23-2016 07:54-0400 Height 172.72 cm [facility] Work Phone: 06-23-2016 07:54-0400 Weight 107.27 kg [facility] Work Phone: 11-22-2015 09:23-0500 Heart rate 82 /min [facility] Work Phone: Encounters Encounter Date Encounter Type Care Provider Facility Start: 05-17-2025 ambulatory Minal Hannon NP Facili ty:[facility] Start: 04-24-2025 ambulatory [facility] Facility:[facility] Start: 02-28-2025 End: 02-28-2025 Patient encounter procedure Erica Warner SERVICE UNIT OPERATOR-C -[facility] Work Phone: Start: 02-28-2025 End: 02-28-[address] Tomy Hernandez MD Work Phone: [facility] Work Phone: Start: 12-15-2024 End: 12-15-2024 Patient encounter procedure Minal Hannon SERVICE UNIT OPERATOR-C -[facility] Work Phone: Start: 12-15-2024 End: 12-15-2024 ambulatory Minal Hannon NP Facility:[facility] Start: 09-14-2024 End: 09-14-2024 ambulatory Erica Warner NP Facility:[facility] Start: 08-28-2024 End: 08-28-2024 ambulatory Erica Warner NP Facility:[facility] Start: 07-19-2024 End: 07-19-2024 ambulatory Familia Pratt RN Data Management Analyst Management Comment on above: CDM (Chronic Disease Management Routine Call/) Start: 06-21-2024 End: 06-22-2024 ambulatory Familia Pratt executive creative directorData Management Analyst Management Comment on above: CDM (Chronic Disease Management Routine Call/) Start: 06-02-2024 End: 06-02-2024 ambulatory Erica Warner SERVICE UNIT OPERATOR Facility:[facility] Start: 05-22-2024 End: 05-22-2024 Patient Outreach Nabeel Guerra RN Work Phone: Data Management Analyst Management Comment on above: Transition Of Care ( TCM [facility],Discharge 05/21/24) Start: 05-18-2024 End: 05-21-2024 Evaluation and management of inpatient Carmela Martinez Facility:[facility] Start: 05-18-2024 ambulatory Carmela Martinez Facility :[facility] Start: 05-09-2024 End: 05-09-2024 ambulatory Minal Hannon SERVICE UNIT OPERATOR Facility:[facility] Start: 05-02-2024 End: 05-02-2024 ambulatory Christopher Rivera Facility:[facility] Start: 05-02-2024 End: 05-02-2024 ambulatory Minal Hannon SERVICE UNIT OPERATOR Facility:[facility] Start: 04-28-2024 ambulatory Familia Pratt RN [facility] Comment on above: Community Monitoring Outreach Start: 03-31-2024 ambulatory Familia Pratt RN Am [facility] Management Comment on above: Community Monttoring Outreach Start: 02-24-2024 ambulatory Familia Pratt RN Am [facility] Management Comment on above: Community Monitoring Outreach Start: 02-23-2024 Telephone encounter Tomy ahmadi MD Work Phone: [facility] [place] Comment on above: FYI-No Action Needed Start: 01-14-2024 Non-patient / Non-visit Dr. Marybeth Hernandez Work Phone: [facility] Start: 01-13-2024 End: 01-13-[address] Tomy Hernandez Work Phone: [facility] Work Phone: Start: 01-13-2024 End: 01-13-[address] [facility] Work [facility]: Start: 01-10-2024 End: 01-10-2024 ambulatory Familia Pratt RN Data Management Analyst Management Comment on above: Community Monitoring Outreach Start: 01-10-2024 End: 01-10-[address] [facility] Work [facility]: Start: 01-04-2024 End: 01-04-[address] Tomy Hernandez Work Phone: [facility] Work Phone: Start: 12-01-2023 End: 12-02-[address] Tomy Hernandez Work Phone: [facility] Work Phone: Start: 12-01-2023 End: 12-02-[address] Tomy Hernandez Work Phone: [facility] Work Phone: Start: 11-08-2023 End: 11-11-[address] Tomy Hernandez Work Phone: [facility] Work Phone: Start: 11-08-2023 End: 11-11-[address] Tomy Hernandez Work Phone: [facility] Work Phone: Start: 11-08-[address] Mary Hernandez Work Phone: [facility] Work Phone: Start: 11-05-2023 Non-patient / Non-visit Dr. Marybeth Hernandez Work Phone: [facility] Work Phone: Start: 11-05-2023 Non-patient / Non-visit Dr. Marybeth Hernandez Work Phone: [facility] Start: 11-05-2023 End: 11-05-[address] Tomy Hernandez Work Phone: [facility] Work Phone: Start: 11-05-2023 End: 11-05-[address] Tomy Hernandez Work Phone: [facility]-Cardiovascul ar Services Work Phone: Start: 11-04-2023 End: 11-04-2023 ambulatory TOMY HERNANDEZ Facility:[facility] Start: 11-04-2023 End: 11-04-2023 Patient encounter procedure Tomy Hernandez MD Work Phone: [facility] Comment on above: Stasis ulcer of lowe r extremity, left (HCC) (Primary Dx); Primary hypertension Start: 10-26-2023 ambulatory Familia Pratt RN Am bul[facility] Care Management Comment on above: Community Monitoring Outreach Start: 10-26-2023 Telephone encounter Tomy ahmadi MD Work Phone: [facility] Comment on above: Patient Update (New blisters/) Start: 10-18-2023 End: 10-18-2023 ambulatory TOMY HERNANDEZ Facility:[facility] Start: 10-18-2023 End: 10-18-2023 Patient encounter procedure Tomy Hernandez MD Work Phone: [facility] [place] Comment on above: Cellulitis of left l ower extremity (Primary Dx); Stasis ulcer of lower extremity, left (HCC); Stage 3a chronic kidney disease (HCC); Hyperlipidemia, unspecified hyperlipidemia type; Impaired fasting glucose Start: 09-16-2023 End: 09-16-[address] Tomy Hernandez Work Phone: [facility] Work Phone: Start: 09-16-2023 End: 09-16-[address] Tomy Hernandez Work Phone: [facility]Cardiovascul [facility] Services Work Phone: Start: 09-01-2023 End: 09-02-2023 Evaluation and management of inpatient Dr. Tomy Hernandez Work Phone: [facility]-Medical Surgical 3 Work Phone: Start: 08-19-[address] Venessa Hernandez Work Phone: [facility] Start: 08-19-2023 End: 08-19-2023 Admission to same day surgery center Dr. Tomy Hernandez Work Phone: [facility] Start: 08-19-2023 End: 08-19-[address] Tomy Hernandez Work Phone: [facility] [facility] Work Phone: Start: 08-16-2023 End: 08-16-2023 ambulatory TOMY HERNANDEZ Facility:[facility] Start: 08-16-2023 End: 08-16-2023 Patient encounter procedure Tomy Hernandez MD Work Phone: [facility] [place] Comment on above: Preoperative examina tion (Primary Dx); Chronic atrial fibrillation (HCC); Centrilobular emphysema (HCC); Nocturnal hypoxia; S/P TAVR (transcatheter aortic valve replacement); Tremor of left hand Start: 08-16-2023 End: 08-16-2023 Preprocedural examination done Tomy Hernandez MD Work Phone: [facility] Work Phone: Start: 08-13-2023 End: 08-13-[address] Tomy Hernandez Work Phone: [facility] Work Phone: Start: 08-13-2023 End: 08-13-[address] Tomy Hernandez Work Phone: [facility]-Cat Scan, [facility] Work Phone: Start: 08-12-2023 ambulatory Familia Pratt RN Am [facility] Care Management Comment on above: Community Monitoring Outreach Start: 06-30-2023 End: 06-30-[address] [facility] Work Phone: Start: 06-09-2023 Non-patient / Non-visit Dr. Marybeth Hernandez Work Phone: [facility] Start: 06-09-2023 End: 06-09-2023 Admission to same day surgery center Dr. Tomy Hernandez Work Phone: [facility]-Endoscopy Work Phone: Start: 06-09-2023 End: 06-09-[address] Tomy Hernandez Work Phone: [facility] Work Phone: Start: 05-26-2023 Non-patient / Non-visit Dr. [facility]beth [facility] Work Phone: Start: 05-24-2023 ambulatory Tomy buckner MD Work Phone: [facility] [place] Comment on above: vaccinations Start: 05-18-2023 End: 05-18-[address] Tomy Hernandez Work Phone: [facility] Work Phone: Start: 04-20-2023 Non-patient / Non-visit Dr. Marybeth Hernandez Work Phone: [facility] Work Phone: Start: 04-20-2023 Non-patient / Non-visit Dr. Marybeth Hernandez Work Phone: [facility] Start: 04-20-2023 End: 04-20-[address] Tomy Hernandez Work Phone: [facility] Work Phone: Start: 04-20-2023 End: 04-20-[address] Tomy Hernandez Work Phone: [facility]Cardiovascul ar Services Work Phone: Start: 03-22-2023 End: 03-22-2023 Patient encounter procedure Tomy Hernandez MD Work Phone: [facility] [place] Comment on above: Medicare annual well ness visit, subsequent (Primary Dx); Centrilobular emphysema (HCC); Secondary pulmonary arterial hypertension (HCC); Chronic atrial fibrillation (HCC); Stage 3a chronic kidney disease (HCC); S/P TAVR (transcatheter aortic valve replacement); Primary hypertension; Nocturnal hypoxia; NOAM (obstructive sleep apnea) cannot tolerate CPAP; Impaired fasting glucose; Essential hypertension Start: 03-11-2023 End: 03-11-[address] Tomy Hernandez Work Phone: [facility] [facility] Work Phone: Start: 02-10-2023 ambulatory Familia Pratt RN Am bulatory Care Management Comment on above: Community Monitoring Outreach Start: 02-03-2023 End: 02-03-[address] Tomy Hernandez Work Phone: [facility] Work Phone: Start: 01-14-2023 ambulatory Familia Pratt RN Am bulatory Care Management Comment on above: Community Monitoring Outreach Start: 12-02-2022 Non-patient / Non-visit Dr. Marybeth Hernandez Work Phone: [facility] Start: 12-02-2022 End: 12-02-2022 Admission to same day surgery center Dr. Tomy Hernandez Work Phone: [facility]-Endoscopy Start: 12-02-2022 End: 12-02-[address] Tomy Hernandez Work Phone: [facility] Work Phone: Start: 11-23-2022 ambulatory Familia Pratt RN Am bulatory Care Management Comment on above: Community Monitoring Outreach Start: 10-30-2022 End: 10-30-[address] Tomy Hernandez Work Phone: [facility] Start: 10-22-2022 ambulatory Familia Pratt RN Am bulatory Care Management Comment on above: Community Monitoring Outreach Start: 10-13-2022 Refill Ngozi Sanchez CHLORINATOR OPERATOR .ASSOCIATE PROFESSOR OF HISTORY Work Phone: [facility] [place] Comment on above: Refill Request Start: 09-21-2022 ambulatory Familia Pratt RN Am bulatory Care Management Comment on above: Community Monitoring Outreachi Start: 2022 ambulatory Familia Pratt RN Am bulatory Care Management Comment on above: Community Monitoring Outreach Start: 2022 End: [address] Tomy Hernandez Work Phone: [facility] Start: 07-17-2022 ambulatory Teernce Alan RN Am bulatory Care Management Comment on above: Community Monitoring Outreach Start: 07-16-2022 End: 07-16-[address] Tomy Hernandez Work Phone: [facility] Work Phone: Start: 07-16-2022 End: 07-16-[address] Tomy Hernandez Work Phone: [facility]-Laboratory Start: 06-30-2022 End: 06-30-2022 ambulatory TAMIKA DUTTA Facility:[facility] Start: 06-30-2022 End: 06-30-2022 Patient encounter procedure Tamika Dutta CHLORINATOR OPERATOR.ASSOCIATE PROFESSOR OF HISTORY Work Phone: [facility] [place] Comment on above: S/P TAVR (transcathe ter aortic valve replacement) (Primary Dx); Obesity (BMI 35.0-39.9 without comorbidity); Primary hypertension Start: 06-30-2022 End: 06-30-[address] Tomy Hernandez Work Phone: [facility]Labor[facility] Start: 06-18-2022 End: 06-18-[address] Tomy Hernandez Work Phone: [facility]-Pulmonary Medicine [facility] Start: 06-16-2022 ambulatory Terence Alan RN Am bulatory Care Management Comment on above: Community Monitoring Outreach Start: 05-07-2022 ambulatory Terence Alan RN Am bulatory [facility] Comment on above: Community Monitoring Outreach Start: 05-06-2022 Non-patient / Non-visit Dr. Marybeth Hernandez Work Phone: [facility] Start: 05-06-2022 End: 05-06-2022 Admission to same day surgery center Dr. Tomy Hernandez Work Phone: [facility]Endoscopy Start: 05-06-2022 End: 05-06-[address] Tomy Hernandez Work Phone: [facility] Work Phone: Start: 04-28-2022 End: 04-28-[address] Tomy Hernandez Work Phone: [facility] Start: 04-20-2022 ambulatory Terence Alan RN Am bulatory [facility] Comment on above: Community Monitoring Outreach Start: 04-06-2022 End: 04-06-[address] Tomy Hernandez Work Phone: [facility] Start: 04-02-2022 ambulatory Terence Alan RN Am bulatory [facility] Comment on above: Community Monitoring Outreach (COPD Telephonic CDM Outreach) Start: 03-23-2022 Telephone encounter Tomy ahmadi MD Work Phone: [facility] Comment on above: Referral Request Start: 03-18-2022 Telephone encounter Tomy ahmadi MD Work Phone: General Surgery Comment on above: Outpatient [place] [facility] Start: 03-18-2022 End: 03-18-2022 Patient encounter procedure Tomy Hernandez MD Work Phone: [facility] [place] Comment on above: Stage 3a chronic kid mirza disease (HCC) (Primary Dx); Hyperlipidemia, unspecified hyperlipidemia type; Hyperglycemia; Impaired fasting glucose; Positive colorectal cancer screening using Cologuard test; Secondary pulmonary arterial hypertension (HCC) Start: 03-13-2022 ambulatory Terence Alan RN Am bulatory [facility] Comment on above: Community Monitoring Outreach (COPD Telephonic CDM Outreach) Start: 02-25-2022 ambulatory Terence Alan RN Am bulatory Care Management Comment on above: Community Monitoring Outreach (COPD Telephonic CDM Outreach) Start: 02-10-2022 ambulatory Terence Alan RN Am bulatory Care Management Comment on above: Community Monitoring Outreach (COPD Telephonic CDM Outreach) Start: 01-26-2022 End: 01-26-2022 Patient encounter procedure Javier Starr MD Work Phone: [facility] Comment on above: Wound of left lower extremity, initial encounter (Primary Dx); Need for vaccination Start: 01-26-2022 End: 01-26-[address] [facility] Start: 01-23-2022 ambulatory Terence Alan RN Am bulatory Care Management Comment on above: Community Monitoring Outreach (CDM Outreach) Start: 01-05-2022 End: 01-05-[address] Tomy Hernandez Work Phone: [facility] Start: 01-02-2022 Non-patient / Non-visit Dr. Marybeth Hernandez Work Phone: [facility] Start: 01-01-2022 ambulatory Terence Alan RN Am bulatory Care Management Comment on above: Community Monitoring Outreach (COPD Telephonic Outreach) Start: 01-01-2022 End: 01-01-[address] [facility] Start: 12-30-2021 End: 12-30-2021 ambulatory TAMIKA DUTTA Facility:[facility] Start: 12-30-2021 End: 12-30-2021 Patient encounter procedure Tamika Dutta CHLORINATOR OPERATOR.ASSOCIATE PROFESSOR OF HISTORY Work Phone: [facility] [place] Comment on above: S/P TAVR (transcathe ter aortic valve replacement) (Primary Dx); Chronic atrial fibrillation (HCC); Obesity (BMI 35.0-39.9 without comorbidity) Start: 12-30-2021 Telephone encounter Tmaika Dutta CHLORINATOR OPERATOR.ASSOCIATE PROFESSOR OF HISTORY Work Phone: [facility] [place] Comment on above: Appointment Start: 12-29-2021 Non-patient / Non-visit Dr. Marybeth Hernandez Work Phone: [facility] Start: 12-29-2021 End: 12-29-[address] [facility] Start: 12-17-2021 Refill Ngozi Sanchez CHLORINATOR OPERATOR .ASSOCIATE PROFESSOR OF HISTORY Work Phone: [facility] [place] Comment on above: Refill Request Start: 12-17-2021 End: 01-10-[address] Tomy Hernandez Work Phone: [facility]Cardiac Rehab Start: 12-17-[address] Mary Hernandez Work Phone: [facility] Start: 12-10-2021 End: 12-11-[address] Tomy Hernandez Work Phone: [facility]Card[facility] Start: 11-20-2021 End: 11-20-[address] Tomy Hernandez Work Phone: [facility] Start: 11-10-2021 End: 11-10-[address] Tomy Hernandez Work Phone: [facility] Start: 10-13-2021 End: 10-13-[address] Tomy Hernandez Work Phone: [facility] Start: 09-18-2021 End: 09-18-[address] Tomy Hernandez Work Phone: [facility] Start: 09-01-2021 Non-patient / Non-visit Dr. Marybeth Hernandez Work Phone: [facility] Start: 08-26-2021 End: 08-26-2021 [facility] Start: 08-21-2021 End: 08-21-[address] Tomy Hernandez Work Phone: [facility] Start: 07-17-2021 End: 07-17-2021 ambulatory TAMIKA L [facility] Start: 07-10-2021 End: 07-11-2021 Evaluation and management of inpatient [facility] Start: 11-18-2020 Patient encounter procedure Isabela Mckeon Esterle DO Work Phone: [facility] Start: 11-18-2020 Progress Note Isabela Mckeon Esterle DO Work Phone: [facility] Start: 11-17-2020 Patient encounter procedure Isabela Mike Esterle DO Work Phone: [facility] Start: 11-17-2020 Progress Note Isabela Mckeon Esterle DO Work Phone: [facility] Start: 11-16-2020 Patient encounter procedure Isabela Mckeon Esterle DO Work Phone: [facility] Start: 11-16-2020 Progress Note Isabela M Esterle DO Work Phone: [facility] Start: 11-15-2020 Patient encounter procedure Isabela M Esterle DO Work Phone: [facility] Start: 11-15-2020 Progress Note Isabela M Esterle DO Work Phone: [facility] Start: 11-13-2020 Patient encounter procedure Andrea Ashley MD Work Phone: [facility] Start: 11-13-2020 Progress Note Andrea gaspar MD Work Phone: [facility] Start: 11-12-2020 Patient encounter procedure Isabela M Esterle DO Work Phone: [facility] Start: 11-12-2020 Progress Note Isabela M Esterle DO Work Phone: [facility] Start: 11-11-2020 Patient encounter procedure Andrea Ashley MD Work Phone: [facility] Start: 11-11-2020 Progress Note Andrea gaspar MD Work Phone: [facility] Start: 11-10-2020 Patient encounter procedure Andrea Ashley MD Work Phone: [facility] Start: 11-10-2020 Progress Note Andrea gaspar MD Work Phone: [facility] Start: 11-09-2020 Patient encounter procedure Andrea Ashley MD Work Phone: [facility] Start: 11-09-2020 Progress Note Andrea gaspar MD Work Phone: [facility] Start: 11-07-2020 Patient encounter procedure Isabela M Esterle DO Work Phone: [facility] Start: 11-07-2020 Progress Note Isabela M Esterle DO Work Phone: [facility] Start: 11-05-2020 Patient encounter procedure Isabela M Esterle DO Work Phone: [facility] Start: 11-05-2020 Progress Note Isabela M Esterle DO Work Phone: [facility] Start: 11-04-2020 Patient encounter procedure Isabela M Esterle DO Work Phone: [facility] Start: 11-04-2020 Progress Note Isabela M Esterle DO Work Phone: [facility] Start: 11-01-2020 Patient encounter procedure Andrea Ashley MD Work Phone: [facility] Start: 11-01-2020 Progress Note Andrea gaspar MD Work Phone: [facility] Start: 10-31-2020 Patient encounter procedure Isabela M Esterle DO Work Phone: [facility] Start: 10-31-2020 Progress Note Isabela M Esterle DO Work Phone: [facility] Start: 10-30-2020 Patient encounter procedure Andrea Ashley MD Work Phone: [facility] Start: 10-30-2020 Progress Note Andrea gaspar MD Work Phone: [facility] Start: 10-29-2020 Patient encounter procedure Isabela M Esterle DO Work Phone: [facility] Start: 10-29-2020 Progress Note Isabela M Esterle DO Work Phone: [facility] Start: 10-27-2020 Patient encounter procedure Isabela M Esterle DO Work Phone: [facility] Start: 10-27-2020 Progress Note Isabela M Esterle DO Work Phone: [facility] Start: 10-26-2020 Patient encounter procedure Isabela M Esterle DO Work Phone: [facility] Start: 10-26-2020 Progress Note Isabela M Esterle DO Work Phone: [facility] Start: 10-25-2020 Patient encounter procedure Andrea Ashley MD Work Phone: [facility] Start: 10-25-2020 Progress Note [facility] Start: 10-24-2020 Patient encounter procedure Isabela M Esterle DO Work Phone: [facility] Start: 10-24-2020 Progress Note Isabela M Esterle DO Work Phone: [facility] Start: 10-23-2020 Patient encounter procedure Andrea Ashley MD Work Phone: [facility] Start: 10-23-2020 Progress Note Andrea gaspar MD Work Phone: [facility] Start: 10-22-2020 Patient encounter procedure Isabela M Esterle DO Work Phone: [facility] Start: 10-22-2020 Progress Note Isabela M Esterle DO Work Phone: [facility] Start: 10-21-2020 Patient encounter procedure Isabela M Esterle DO Work Phone: [facility] Start: 10-21-2020 Progress Note Isabela M Esterle DO Work Phone: [facility] Start: 10-20-2020 Patient encounter procedure Andrea Ashley MD Work Phone: [facility] Start: 10-20-2020 Progress Note Andrea gaspar MD Work Phone: [facility] Start: 06-16-2011 End: 09-16-2021 Patient encounter status Familia Pratt RN [facility] Procedures Date Procedure Procedure Detail Performing Clinician Start: 09-01-2023 Radiologic examinati on of knee Dr. Tomy Hernandez Work Phone: Start: 08-19-2023 Nasal Screen MRSA/MSSA Dr. Tomy Hernandez Work Phone: Start: 08-19-2023 Plain chest X-ray Dr. Venessa Hernandez Work Phone: Start: 08-13-2023 MRI of lower extremity Dr. Tomy Hernandez Work Phone: Start: 06-09-[address] Tomy Hernandez Work Phone: Start: 04-20-2023 Cardiovascular stres s test using pharmacologic stress agent Dr. Tomy Hernandez Work Phone: Start: 02-03-2023 Plain chest X-ray Dr. Venessa Hernandez Work Phone: Start: 12-02-[address] Tomy Hernandez Work Phone: Start: 05-06-[address] Tomy Hernandez Work Phone: Start: 03-18-2022 Hemoglobin A1c/Hemoglobin.total in Blood Tomy Hernandez MD Work Phone: Start: 01-05-2022 Radiologic examinati on of knee Dr. Tomy Hernandez Work Phone: Start: 09-16-2021 Adult depression scr eening assessment Ngozi Older CHLORINATOR OPERATOR.ASSOCIATE PROFESSOR OF HISTORY Work Phone: Start: 08-24-2017 End: 08-24-2017 *Hepatic Function Panel Jeff Bowie MD Work Phone: Start: 08-24-2017 End: 08-24-2017 Lipid 1996 panel - Serum or Plasma Jeff Bowie MD Work Phone: Start: 06-17-2017 End: 06-17-2017 DJN Jeff Bowie MD Work Phone: Start: 06-17-2017 [...] MD Work Phone: Start: 12-22-2016 End: 03-12-2017 BWDax Cast SERVICE UNIT OPERATOR Work Phone: Start: 12-22-2016 End: 03-12-2017 Follow Up Appt 3 months Erica simmons ASSOCIATE PROFESSOR OF HISTORY Work Phone: Start: 12-22-2016 End: 03-12-2017 Pulmonary Function Test - complete Erica Warner ASSOCIATE PROFESSOR OF HISTORY Work Phone: Start: 12-22-2016 End: 03-12-2017 Pulmonary stress test/simple Erica Warner ASSOCIATE PROFESSOR OF HISTORY Work Phone: Start: 12-22-2016 End: 03-12-2017 BWA Erica Cast SERVICE UNIT OPERATOR Work Phone: Start: 12-22-2016 End: 03-12-2017 Follow Up Appt 3 months Erica simmons ASSOCIATE PROFESSOR OF HISTORY Work Phone: Start: 12-22-2016 End: 03-12-2017 Pulmonary Function Test - complete Erica Warner ASSOCIATE PROFESSOR OF HISTORY Work Phone: Start: 12-22-2016 End: 03-12-2017 Pulmonary stress test/simple Erica Warner ASSOCIATE PROFESSOR OF HISTORY Work Phone: Start: 11-14-2016 End: 12-02-2016 *Creatinine, Serum Bran Russell Work Phone: Start: 11-14-2016 End: 12-02-2016 *Creatinine, Serum Bran Dawson Drew Work Phone: Start: 10-14-2016 End: 02-15-2017 [...] Start: 05-19-2016 End: 06-03-2016 *BMP Erica Cast SERVICE UNIT OPERATOR Work Phone: Start: 05-19-2016 End: 06-03-2016 HAYDER Cast SERVICE UNIT OPERATOR Work Phone: Start: 05-19-2016 End: 06-03-2016 Ct thorax w/contrast material Erica Warner ASSOCIATE PROFESSOR OF HISTORY Work Phone: Start: 05-19-2016 End: 06-03-2016 Follow Up Appt 1 month Erica romero ASSOCIATE PROFESSOR OF HISTORY Work Phone: Start: 05-19-2016 End: 06-03-2016 *BMP Erica Cast SERVICE UNIT OPERATOR Work Phone: Start: 05-19-2016 End: 06-03-2016 HAYDER Cast SERVICE UNIT OPERATOR Work Phone: Start: 05-19-2016 End: 06-03-2016 Ct thorax w/dye Erica Cast SERVICE UNIT OPERATOR Work Phone: Start: 05-19-2016 End: 06-03-2016 Follow Up Appt 1 month Erica Miller r ASSOCIATE PROFESSOR OF HISTORY Work Phone: Start: 02-19-2016 End: 02-19-2016 Demo&/eval of pt utiliz aersl gen/neb/inhlr/ip Bran Russell Work Phone: Start: 02-19-2016 End: 02-19-2016 Evaluate pt use of inhaler Bran Armstrong r Work Phone: Start: 02-12-2016 End: 06-19-2016 Ct thorax w/contrast material Bran valdez Work Phone: Start: 02-12-2016 End: 06-19-2016 Ct thorax w/dye Bran Russell Work Phone: Start: 02-11-2016 End: 06-03-2016 Ct angiography chest w/contrast/noncontrast Erica Warner ASSOCIATE PROFESSOR OF HISTORY Work Phone: Start: 02-11-2016 End: 06-03-2016 Ct [...] 11-20-2015 End: 06-19-2016 Pulmonary stress test/simple Bran W Art sin Work Phone: Start: 10-30-2015 End: 11-15-2015 Cardioversion [...] MD Work Phone: Start: 10-08-2015 End: 10-08-2015 DJN Jeff Bowie MD Work Phone: Start: 10-08-2015 [...] MD Work Phone: Start: 10-08-2015 End: 10-08-2015 DJN Jeff Bowie MD Work Phone: Start: 10-08-2015 [...] Detail Author Start: 01-27-2032 Urine microalbumin profile [facility] Start: 03-24-2026 Diabetes Screening Diabetes Screenin g [facility] Start: 06-12-2025 DIABETES SCREEN DIABETES SCREEN [facility] Start: 03-18-2025 DIABETES SCREEN DIABETES SCREEN [facility] Start: 03-10-2025 DIABETES SCREEN DIABETES SCREEN [facility] Start: 11-04-2024 Annual PCP Team Tobacco Sampler raul Disease Visit Annual PCP Team Chronic Disease Visit [facility] Start: 10-18-2024 Annual PCP Team Tobacco Sampler raul Disease Visit Annual PCP Team Chronic Disease Visit [facility] Start: 08-16-2024 Annual PCP Team Tobacco Sampler raul Disease Visit Annual PCP Team Chronic Disease Visit [facility] Start: 08-05-2024 DIABETES SCREEN DIABETES SCREEN [facility] Start: 05-14-2024 Covid-19 Vaccine ( season) Covid-19 Vaccine ( season) [facility] Start: 05-14-2024 Covid-19 Vaccine ( season) Covid-19 Vaccine ( season) [facility] Start: 05-14-2024 Influenza vaccination Influenza Vacc ine (#1) [facility] Start: 03-24-2024 Creatinine measurement Serum Creatin ine [facility] Start: 03-24-2024 Serum Creatinine Serum Creatinine Cl [facility] Start: 03-22-2024 ANNUAL PCP TEAM COMPLIANCE ASSISTANT RAUL DISEASE VISIT ANNUAL PCP TEAM CHRONIC DISEASE VISIT [facility] Start: 03-22-2024 COVID-19 VACCINE (6 - Pfizer series) COVID-19 VACCINE (6 - Pfizer series) [facility] Comment on above: Postponed from 10/19 (Declined at this time) Start: 03-22-2024 End: 03-22-2024 Patient encounter procedure 03/22/2024 10:00 AM EDT Office Visit [facility] [address] [place], [place] [id number] Tomy Hernandez MD [address] [place], [place] [id number] Medicare Wellness w/5 month follow-up [facility] [place] Comment on above: Medicare Wellness w/ 5 month follow-up Start: 03-17-2024 End: 06-16-2024 Comprehensive metabolic 2000 panel - Serum or Plasma COMP METABOLIC PANEL Lab Routine Stage 3a chronic kidney disease (HCC) Expected: 03/17/2024, Expires: 06/16/2024 [facility] Work Phone: Comment on above: Expected: 03/17/2024 , Expires: 06/16/2024 Start: 03-17-2024 End: 06-16-2024 Hemoglobin A1c in Blood HGB A1C Lab Routine Impaired fasting glucose Expected: 03/17/2024, Expires: 06/16/2024 [facility] Work Phone: Comment on above: Expected: 03/17/2024 , Expires: 06/16/2024 Start: 03-17-2024 End: 06-16-2024 Lipid 1996 panel - Serum or Plasma LIPID PANEL BASIC Lab Routine Hyperlipidemia, unspecified hyperlipidemia type Expected: 03/17/2024, Expires: 06/16/2024 [facility] Work Phone: Comment on above: Expected: 03/17/2024 , Expires: 06/16/2024 Start: 10-23-2023 Covid-19 Vaccine () Covid-19 Vaccine () [facility] Start: 09-13-2023 Advance Directive Discussion Advance Directive Discussion [facility] Start: 09-13-2023 Behavioral Health Screening Behavioral Health Screening [facility] Start: 09-13-2023 Depression Assessment Depression Ass essment [facility] Start: 09-02-2023 Referral to service [facility] Start: 09-02-2023 Patient discharge [facility] Start: 09-01-2023 Anesth open/surg art hrs total knee arthroplasty ANESTH KNEE ARTHROPLASTY [facility] Start: 09-01-2023 Arthrp kne condyle&p latu medial&lat compartments TOTAL KNEE ARTHROPLASTY [facility] Start: 09-01-2023 Oxygen therapy [facility] Start: 09-01-2023 Following clinical pathway protocol [facility] Start: 09-01-2023 Provision of overbed trapeze [facility] Start: 09-01-2023 Recommendation to continue with treatment [facility] Start: 09-01-2023 Admission procedure [facility] Start: 09-01-2023 Ambulation therapy management [facility] Start: 09-01-2023 Application of device [facility] Start: 09-01-2023 Application of elast ic bandage [facility] Start: 09-01-2023 Assessment of risk o f venous thromboembolism [facility] Start: 09-01-2023 Catheterization of vein [facility] Start: 09-01-2023 Consultation [facility] Start: 09-01-2023 Exercises [facility] Start: 09-01-2023 Following clinical pathway protocol [facility] Start: 09-01-2023 Introduction of urin kelsey catheter [facility] Start: 09-01-2023 Measuring intake and output [facility] Start: 09-01-2023 Neurovascular assessment [facility] Start: 09-01-2023 Patient education [facility] Start: 09-01-2023 Procedure discontinued [facility] Start: 09-01-2023 Provision of activit y privileges [facility] Start: 09-01-2023 Referral to occupati onal therapist [facility] Start: 09-01-2023 Referral to service [facility] Start: 09-01-2023 Vital signs measurements [facility] Start: 09-01-2023 Wound care [facility] Start: 09-01-2023 [facility] Start: 06-22-2023 ANNUAL PCP TEAM COMPLIANCE ASSISTANT RAUL DISEASE VISIT ANNUAL PCP TEAM CHRONIC DISEASE VISIT [facility] Start: 06-22-2023 Influenza vaccination LUNG CANCER SC REENING [facility] Comment on above: Postponed from 06/13 (Declined at this time) Start: 06-22-2023 SHINGRIX VACCINE (1 of 2) MELGAR GRIX VACCINE (1 of 2) [facility] Comment on above: Postponed from 08/20 (Declined at this time) Start: 06-12-2023 SERUM CREATININE SERUM CREATININE Cl [facility] Start: 06-09-2023 Colonoscopy w/biopsy single/multiple COLONOSCOPY AND BIOPSY [facility] Start: 06-09-2023 Colsc flx w/rmvl of tumor polyp lesion snare tq COLONOSCOPY W/LESION REMOVAL [facility] Start: 06-09-2023 Patient discharge [facility] Start: 05-14-2023 Covid-19 Vaccine ( season) Covid-19 Vaccine ( season) [facility] Start: 05-14-2023 Influenza vaccination C [facility] Start: 03-23-2023 End: 05-23-2023 CBC panel - Blood by Automated count CBC Lab Routine Chronic atrial fibrillation (HCC) Expected: 03/23/2023, Expires: 05/23/2023 [facility] Work Phone: Comment on above: Expected: 03/23/2023 , Expires: 05/23/2023 Start: 03-23-2023 End: 05-23-2023 Comprehensive metabolic 2000 panel - Serum or Plasma COMP METABOLIC PANEL Lab Routine Primary hypertension Expected: 03/23/2023, Expires: 05/23/2023 [facility] Work Phone: Comment on above: Expected: 03/23/2023 , Expires: 05/23/2023 Start: 03-23-2023 End: 05-23-2023 Hemoglobin A1c in Blood HGB A1C Lab Routine Impaired fasting glucose Expected: 03/23/2023, Expires: 05/23/2023 [facility] Work Phone: Comment on above: Expected: 03/23/2023 , Expires: 05/23/2023 Start: 03-23-2023 End: 05-23-2023 Lipid 1996 panel - Serum or Plasma LIPID PANEL BASIC Lab Routine Primary hypertension Expected: 03/23/2023, Expires: 05/23/2023 [facility] Work Phone: Comment on above: Expected: 03/23/2023 , Expires: 05/23/2023 Start: 03-18-2023 ANNUAL PCP TEAM COMPLIANCE ASSISTANT RAUL DISEASE VISIT ANNUAL PCP TEAM CHRONIC DISEASE VISIT [facility] Start: 03-18-2023 BP CONTROLLED (<130/80) BP CONTROLLE D (<130/80) [facility] Start: 03-10-2023 HEMOGLOBIN/HEMATOCRIT HEMOGLOBIN/HEM ATOCRIT [facility] Start: 03-10-2023 SERUM CREATININE SERUM CREATININE Cl [facility] Start: 01-26-2023 ANNUAL PCP TEAM COMPLIANCE ASSISTANT RAUL DISEASE VISIT ANNUAL PCP TEAM CHRONIC DISEASE VISIT [facility] Start: 01-26-2023 BP CONTROLLED (<130/80) BP CONTROLLE D (<130/80) [facility] Start: 12-02-2022 Patient discharge [facility] Start: 09-16-2022 Adult depression screening assessment DEPRESSION SCREENING [facility] Start: 09-16-2022 ANNUAL PCP TEAM COMPLIANCE ASSISTANT RAUL DISEASE VISIT ANNUAL PCP TEAM CHRONIC DISEASE VISIT [facility] Start: 09-16-2022 BP CONTROLLED (<130/80) BP CONTROLLE D (<130/80) [facility] Start: 09-13-2022 ADVANCE DIRECTIVE DISCUSSION ADVANCE DIRECTIVE DISCUSSION [facility] Start: 09-13-2022 DEPRESSION ASSESSMENT DEPRESSION ASS ESSMENT [facility] Start: 06-18-2022 End: 08-18-2022 Basic metabolic 2000 panel - Serum or Plasma BASIC METABOLIC PNL Lab Routine Impaired fasting glucose Expected: 06/18/2022, Expires: 08/18/2022 [facility] Work Phone: Comment on above: Expected: 06/18/2022 , Expires: 08/18/2022 Start: 06-18-2022 End: 08-18-2022 Hemoglobin A1c in Blood HGB A1C Lab Routine Impaired fasting glucose Expected: 06/18/2022, Expires: 08/18/2022 [facility] Work Phone: Comment on above: Expected: 06/18/2022 , Expires: 08/18/2022 Start: 06-18-2022 End: 08-18-2022 Lipid 1996 panel - Serum or Plasma LIPID PANEL BASIC Lab Routine Hyperlipidemia, unspecified hyperlipidemia type Expected: 06/18/2022, Expires: 08/18/2022 [facility] Work Phone: Comment on above: Expected: 06/18/2022 , Expires: 08/18/2022 Start: 06-13-2022 Influenza vaccination LUNG CANCER SC REENING [facility] Start: 05-14-2022 Influenza vaccination INFLUENZA (#1) [facility] Start: 05-06-2022 Colsc flx w/rmvl of tumor polyp lesion snare tq COLONOSCOPY W/LESION REMOVAL [facility] Work Phone: Start: 05-06-2022 Patient discharge [facility] Work Phone: Start: 03-30-2022 COVID-19 VACCINE (5 - Booster for Pfizer series) COVID-19 VACCINE (5 - Booster for Pfizer series) [facility] Start: 12-30-2021 End: 03-01-2022 Basic metabolic 2000 panel - Serum or Plasma BASIC METABOLIC PNL Lab Routine S/P TAVR (transcatheter aortic valve replacement) Expected: 12/30/2021, Expires: 03/01/2022 [facility] Work Phone: Comment on above: Expected: 12/30/2021 , Expires: 03/01/2022 Start: 12-30-2021 End: 03-01-2022 CBC panel - Blood by Automated count CBC Lab Routine S/P TAVR (transcatheter aortic valve replacement) Expected: 12/30/2021, Expires: 03/01/2022 [facility] Work Phone: Comment on above: Expected: 12/30/2021 , Expires: 03/01/2022 Start: 11-18-2021 COVID-19 VACCINE (4 - Booster for Pfizer series) COVID-19 VACCINE (4 - Booster for Pfizer series) [facility] Start: 09-13-2021 ADVANCE DIRECTIVE DISCUSSION ADVANCE DIRECTIVE DISCUSSION [facility] Start: 09-13-2021 DEPRESSION ASSESSMENT DEPRESSION ASS ESSMENT [facility] Start: 07-03-2020 BP CONTROLLED (<130/80) BP CONTROLLE D (<130/80) [facility] Start: 12-21-2017 End: 12-21-2017 Appointment Appointment [facility] Work Phone: Start: 10-12-2017 End: 10-12-2017 Appointment Appointment [facility] Work Phone: Start: 09-28-2017 End: 09-28-2017 Appointment Appointment [facility] Work Phone: Start: 09-13-2017 End: 03-18-2017 Pulmonary Function Test - complete Pulmonary Function Test - complete [facility] Work Phone: Start: 09-13-2017 End: 03-18-2017 Pulmonary Function Test - complete Pulmonary Function Test - complete [facility] Work Phone: Start: 08-25-2017 End: 08-24-2017 *Hepatic Function Panel *Hepatic Function Panel [facility] Work Phone: Start: 08-25-2017 End: 08-24-2017 Lipid panel [AGGREGATE] *Lipid Profile CC PCP [facility] Work Phone: Start: 08-25-2017 End: 02-25-2017 *Hepatic Function Panel *Hepatic Function Panel [facility] Work Phone: Start: 08-25-2017 End: 02-25-2017 Lipid panel [AGGREGATE] *Lipid Profile CC PCP [facility] Work Phone: Start: 06-17-2017 End: 06-17-2017 Appointment Appointment [facility] Work Phone: Start: 06-17-2017 End: 06-17-2017 MEAGHAN HARDING [facility] Work Phone: Start: 06-17-2017 End: 06-17-2017 Follow Up Appt 6 months Follow Up Appt 6 months [facility] Work Phone: Start: 03-18-2017 End: 03-18-2017 Follow Up Appt 6 months Follow Up Appt 6 months [facility] Work Phone: Start: 03-18-2017 End: 03-18-2017 Appointment Appointment [facility] Work Phone: Start: 03-18-2017 End: 03-18-2017 Appointment Appointment [facility] Work Phone: Start: 03-18-2017 End: 03-18-2017 Follow Up Appt 6 months Follow Up Appt 6 months [facility] Work Phone: Start: 02-15-2017 End: 02-24-2017 *Hepatic Function Panel *Hepatic Function Panel [facility] Work Phone: Start: 02-15-2017 End: 02-15-2017 MEAGHAN HARDING [facility] Work Phone: Start: 02-15-2017 End: 02-15-2017 Follow Up Appt 4 months Follow Up Appt 4 months [facility] Work Phone: Start: 02-15-2017 End: 02-24-2017 Lipid panel [AGGREGATE] *Lipid Profile CC PCP [facility] Work Phone: Start: 02-15-2017 End: 02-15-2017 Appointment Appointment [facility] Work Phone: Start: 02-15-2017 End: 02-15-2017 Appointment Appointment [facility] Work Phone: Start: 02-15-2017 End: 02-24-2017 *Hepatic Function Panel *Hepatic Function Panel [facility] Work Phone: Start: 02-15-2017 End: 02-15-2017 MEAGHAN HARDING [facility] Work Phone: Start: 02-15-2017 End: 02-15-2017 Follow Up Appt 4 months Follow Up Appt 4 months [facility] Work Phone: Start: 02-15-2017 End: 02-24-2017 Lipid panel [AGGREGATE] *Lipid Profile CC PCP [facility] Work Phone: Start: 12-22-2016 End: 03-12-2017 BWA BWA [facility] Work Phone: Start: 12-22-2016 End: 03-12-2017 Follow Up Appt 3 months Follow Up Appt 3 months [facility] Work Phone: Start: 12-22-2016 End: 03-12-2017 Pulmonary Function Test - complete Pulmonary Function Test - complete [facility] Work Phone: Start: 12-22-2016 End: 03-12-2017 Pulmonary stress test/simple Pulmonary stress testing; simple (eg, 6-minute walk) [facility] Work Phone: Start: 12-22-2016 End: 03-12-2017 BWA BWA [facility] Work Phone: Start: 12-22-2016 End: 03-12-2017 Follow Up Appt 3 months Follow Up Appt 3 months [facility] Work Phone: Start: 12-22-2016 End: 03-12-2017 Pulmonary Function Test - complete Pulmonary Function Test - complete [facility] Work Phone: Start: 12-22-2016 End: 03-12-2017 Pulmonary stress test/simple Pulmonary stress testing; simple (eg, 6-minute walk) [facility] Work Phone: Start: 11-14-2016 End: 06-23-2016 *Creatinine, Serum *Creatinine, Serum [facility] Work Phone: Start: 11-14-2016 End: 06-23-2016 *Creatinine, Serum *Creatinine, Serum [facility] Work Phone: Start: 10-14-2016 End: 02-15-2017 *Hepatic Function Panel *Hepatic Function Panel [facility] Work Phone: Start: 10-14-2016 End: 02-15-2017 Lipid panel [AGGREGATE] *Lipid Profile CC PCP [facility] Work Phone: Start: 10-14-2016 End: 02-15-2017 *Hepatic Function Panel *Hepatic Function Panel [facility] Work Phone: Start: 10-14-2016 End: 02-15-2017 Lipid panel [AGGREGATE] *Lipid Profile CC PCP [facility] Work Phone: Start: 08-03-2016 End: 08-03-2016 DJKaiser DJN [facility] Work Phone: Start: 08-03-2016 End: 08-03-2016 Echocardiography Echocardiogram (complete) [facility] Work Phone: Start: 08-03-2016 End: 08-03-2016 Follow Up Appt 6 months Follow Up Appt 6 months [facility] Work Phone: Start: 08-03-2016 End: 08-03-2016 DJN LORINN [facility] Work Phone: Start: 08-03-2016 End: 08-03-2016 Echocardiography Echocardiogram (complete) [facility] Work Phone: Start: 08-03-2016 End: 08-03-2016 Follow Up Appt 6 months Follow Up Appt 6 months [facility] Work Phone: Start: 06-23-2016 End: 06-23-2016 [facility] Work Phone: Start: 06-23-2016 End: 06-23-2016 Ct thorax w/contrast material CT Chest with Contrast [facility] Work Phone: Start: 06-23-2016 End: 06-23-2016 Follow Up Appt 6 months Follow Up Appt 6 months [facility] Work Phone: Start: 06-23-2016 End: 06-23-2016 [facility] Work Phone: Start: 06-23-2016 End: 06-23-2016 Ct thorax w/dye CT Chest with Contrast [facility] Work Phone: Start: 06-23-2016 End: 06-23-2016 Follow Up Appt 6 months Follow Up Appt 6 months [facility] Work Phone: Start: 05-19-2016 End: 06-03-2016 *BMP *BMP [facility] Work Phone: Start: 05-19-2016 End: 06-03-2016 BWDax BWA [facility] Work Phone: Start: 05-19-2016 End: 06-03-2016 Ct thorax w/contrast material CT Chest with Contrast [facility] Work Phone: Start: 05-19-2016 End: 06-03-2016 Follow Up Appt 1 month Follow Up Appt 1 month [facility] Work Phone: Start: 05-19-2016 End: 06-03-2016 *BMP *BMP [facility] Work Phone: Start: 05-19-2016 End: 06-03-2016 BWA BWA [facility] Work Phone: Start: 05-19-2016 End: 06-03-2016 Ct thorax w/dye CT Chest with Contrast [facility] Work Phone: Start: 05-19-2016 End: 06-03-2016 Follow Up Appt 1 month Follow Up Appt 1 month [facility] Work Phone: Start: 02-19-2016 End: 02-19-2016 [facility] Work Phone: Start: 02-19-2016 End: 02-19-2016 Follow Up Appt 3 months Follow Up Appt 3 months [facility] Work Phone: Start: 02-19-2016 End: 02-19-2016 [facility] Work Phone: Start: 02-19-2016 End: 02-19-2016 Follow Up Appt 3 months Follow Up Appt 3 months [facility] Work Phone: Start: 02-12-2016 End: 01-07-2016 Ct thorax w/contrast material CT Chest with Contrast [facility] Work Phone: Start: 02-12-2016 End: 01-07-2016 Ct thorax w/dye CT Chest with Contrast [facility] Work Phone: Start: 02-11-2016 End: 06-03-2016 Ct angiography chest w/contrast/noncontrast CTA Chest, with contrast material(s) [facility] Work Phone: Start: 02-11-2016 End: 06-03-2016 Ct angiography, chest CTA Chest, with contrast material(s) [facility] Work Phone: Start: 01-07-2016 End: 01-07-2016 MEAGHAN [facility] Work Phone: Start: 01-07-2016 End: 01-07-2016 Echocardiography Echocardiogram (complete) [facility] Work Phone: Start: 01-07-2016 End: 01-07-2016 Follow Up Appt 6 months Follow Up Appt 6 months [facility] Work Phone: Start: 01-07-2016 End: 01-07-2016 MEAGHAN HARDING [facility] Work Phone: Start: 01-07-2016 End: 01-07-2016 Echocardiography Echocardiogram (complete) [facility] Work Phone: Start: 01-07-2016 End: 01-07-2016 Follow Up Appt 6 months Follow Up Appt 6 months [facility] Work Phone: Start: 11-20-2015 End: 06-19-2016 Complete sleep workup (PSG,CPAP as indicated) & Follow up Complete sleep workup (PSG,CPAP as indicated) & Follow up [facility] Work Phone: Start: 11-20-2015 End: 06-19-2016 Follow Up Appt 3 months Follow Up Appt 3 months [facility] Work Phone: Start: 11-20-2015 End: 06-19-2016 Pulmonary Function Test - complete Pulmonary Function Test - complete [facility] Work Phone: Start: 11-20-2015 End: 06-19-2016 Pulmonary stress test/simple Pulmonary stress testing; simple (eg, 6-minute walk) [facility] Work Phone: Start: 11-20-2015 End: 06-19-2016 Complete sleep workup (PSG,CPAP as indicated) & Follow up Complete sleep workup (PSG,CPAP as indicated) & Follow up [facility] Work Phone: Start: 11-20-2015 End: 06-19-2016 Follow Up Appt 3 months Follow Up Appt 3 months [facility] Work Phone: Start: 11-20-2015 End: 06-19-2016 Pulmonary Function Test - complete Pulmonary Function Test - complete [facility] Work Phone: Start: 11-20-2015 End: 06-19-2016 Pulmonary stress test/simple Pulmonary stress testing; simple (eg, 6-minute walk) [facility] Work Phone: Start: 10-30-2015 End: 10-04-2015 Cardioversion Cardioversion [facility] Work Phone: Start: 10-30-2015 End: 10-04-2015 Transesophageal echocardiogram (FADIA) Transesophageal echocardiogram (FADIA) [facility] Work Phone: Start: 10-30-2015 End: 10-04-2015 Cardioversion Cardioversion [facility] Work Phone: Start: 10-30-2015 End: 10-04-2015 Transesophageal echocardiogram (FADIA) Transesophageal echocardiogram (FADIA) [facility] Work Phone: Start: 10-23-2015 End: 11-11-2015 *BMP *BMP [facility] Work Phone: Start: 10-23-2015 End: 11-11-2015 *BMP *BMP [facility] Work Phone: Start: 10-08-2015 End: 10-14-2015 *Hepatic Function Panel *Hepatic Function Panel [facility] Work Phone: Start: 10-08-2015 End: 10-08-2015 DJN DJN [facility] Work Phone: Start: 10-08-2015 End: 10-08-2015 Ecg routine ecg w/least 12 lds w/i&r EKG (In office) [facility] Work Phone: Start: 10-08-2015 End: 10-08-2015 Follow Up Appt 3 months Follow Up Appt 3 months [facility] Work Phone: Start: 10-08-2015 End: 10-14-2015 Lipid panel [AGGREGATE] *Lipid Profile CC PCP [facility] Work Phone: Start: 10-08-2015 End: 10-08-2015 Nuclear stress test -Lexiscan Nuclear stress test -Lexiscan [facility] Work Phone: Start: 10-08-2015 End: 10-14-2015 *Hepatic Function Panel *Hepatic Function Panel [facility] Work Phone: Start: 10-08-2015 End: 10-08-2015 DJN DJN [facility] Work Phone: Start: 10-08-2015 End: 10-08-2015 Electrocardiogram, complete EKG (In office) [facility] Work Phone: Start: 10-08-2015 End: 10-08-2015 Follow Up Appt 3 months Follow Up Appt 3 months [facility] Work Phone: Start: 10-08-2015 End: 10-14-2015 Lipid panel [AGGREGATE] *Lipid Profile CC PCP [facility] Work Phone: Start: 10-08-2015 End: 10-08-2015 Nuclear stress test -Lexiscan Nuclear stress test -Lexiscan [facility] Work Phone: Start: 03-26-2005 Urine microalbumin profile DTAP,TDAP,TD (1 - Tdap) [facility] Start: 2004 RSV Vaccine (1 - 1-d ose 60+ series) RSV Vaccine (1 - 1-dose 60+ series) [facility] Start: 1994 SHINGRIX VACCINE (1 of 2) MELGAR GRIX VACCINE (1 of 2) [facility] Start: 1962 Anxiety Screening Anxiety Screening [facility] Start: 1962 Depression Screening Depression Scre tran [facility] Start: 1962 HEPATITIS C SCREENING HEPATITIS C CHIOMA LOPEZ [facility] Colonoscopy [facility] CT Chest [facility] ECG B/O W INTERP (ME D OFFICE) ECG B/O W INTERP (MED OFFICE) ECG Routine S/P TAVR (transcatheter aortic valve replacement) Ordered: 12/30/2021 [facility] Work Phone: Comment on above: Ordered: 12/30/2021 ECG B/O W INTERP (ME D OFFICE) ECG B/O W INTERP (MED OFFICE) ECG Routine S/P TAVR (transcatheter aortic valve replacement) Ordered: 06/30/2022 [facility] Work Phone: Comment on above: Ordered: 06/30/2022 End: 12-30-2022 Echocardiography [facility] Routine S/P TAVR (transcatheter aortic valve replacement) 1 Occurrences starting 12/30/2021 until 12/30/2022 [facility] Work Phone: Comment on above: 1 Occurrences starti ng 12/30/2021 until 12/30/2022 Lipid 1996 panel - S michelle or Plasma [facility] Patient Education [facility] Work Phone: Patient referral [facility] Work Phone: [facility] Immunizations Immunization Date Immunization Notes Care Provider Ludivina castro 06-13-2023 influenza virus vaccine, unspecified formulation Familia Pratt RN [facility] 06-18-2022 COVID-19 booster vaccine, age 12+ yr, bivalent ([employer]) Tamika Dutta APRN.ASSOCIATE PROFESSOR OF HISTORY Work Phone: [facility] 06-04-2022 influenza, high dose seasonal, preservative-free Tamika Dutta APRN.ASSOCIATE PROFESSOR OF HISTORY Work Phone: [facility] 06-04-2022 influenza virus vaccine, unspecified formulation Tomy Hernandez MD Work Phone: [facility] 02-02-2022 COVID-19 vaccine, ag e 12+ yr (PFIZER-BIONTECH - PURPLE TOP) Terence Alan RN [facility] 01-26-2022 tetanus toxoid, redu familia diphtheria toxoid, and acellular pertussis vaccine, adsorbed Javier Starr MD Work Phone: [facility] 06-04-2021 influenza, high-dose , quadrivalent vaccine (FLUZONE HIGH DOSE QUADRIVALENT) Ngozi Older CHLORINATOR OPERATOR.ASSOCIATE PROFESSOR OF HISTORY Work Phone: [facility] 01-08-2021 COVID-19 vaccine, ag e 12+ yr (PFIZER-BIONTECH - PURPLE TOP) Ngozi Older CHLORINATOR OPERATOR.ASSOCIATE PROFESSOR OF HISTORY Work Phone: [facility] 12-18-2020 Covid (Pfizer) Dr. Tomy viera Work Phone: [facility] 06-18-2020 influenza (aIIV4) vaccine, age 65+ yr, quadrivalent, PF (FLUAD QUADRIVALENT) Ngozi Older CHLORINATOR OPERATOR.ASSOCIATE PROFESSOR OF HISTORY Work Phone: [facility] Work Phone: 06-16-2019 influenza, high dose seasonal, preservative-free Ngozi Older CHLORINATOR OPERATOR.ASSOCIATE PROFESSOR OF HISTORY Work Phone: [facility] Work Phone: 07-06-[address] Tomy Hernandez Work Phone: [facility] 07-06-2018 influenza, high dose seasonal, preservative-free Ngozi Older CHLORINATOR OPERATOR.ASSOCIATE PROFESSOR OF HISTORY Work Phone: [facility] 07-06-2018 influenza, injectabl e, quadrivalent, preservative free Ngozi Older CHLORINATOR OPERATOR.ASSOCIATE PROFESSOR OF HISTORY Work Phone: [facility] Work Phone: 08-19-2017 influenza, high dose seasonal, preservative-free Ngozi Older CHLORINATOR OPERATOR.ASSOCIATE PROFESSOR OF HISTORY Work Phone: [facility] Work Phone: 06-23-2016 influenza, high dose seasonal, preservative-free Ngozi Older CHLORINATOR OPERATOR.ASSOCIATE PROFESSOR OF HISTORY Work Phone: [facility] Work Phone: 07-23-[address] Tomy Hernandez Work Phone: [facility] 07-09-2015 influenza, seasonal, injectable Ngozi Older CHLORINATOR OPERATOR.ASSOCIATE PROFESSOR OF HISTORY Work Phone: [facility] Work Phone: 04-08-2015 pneumococcal conjuga te vaccine, 13 valent Ngozi Older CHLORINATOR OPERATOR.ASSOCIATE PROFESSOR OF HISTORY Work Phone: [facility] 10-12-2013 influenza virus vaccine, unspecified formulation Ngozi Older CHLORINATOR OPERATOR.ASSOCIATE PROFESSOR OF HISTORY Work Phone: [facility] 07-16-2012 pneumococcal polysaccharide vaccine, 23 valent Ngozi Older CHLORINATOR OPERATOR.ASSOCIATE PROFESSOR OF HISTORY Work Phone: [facility] 07-15-2012 influenza virus vaccine, unspecified formulation Ngozi Older CHLORINATOR OPERATOR.ASSOCIATE PROFESSOR OF HISTORY Work Phone: [facility] 03-25-2005 tetanus and diphther ia toxoids, adsorbed, preservative free, for adult use (2 Lf of tetanus toxoid and 2 Lf of diphtheria toxoid) Ngozi Older CHLORINATOR OPERATOR.ASSOCIATE PROFESSOR OF HISTORY Work Phone: [facility] Work Phone: Payers Date Payer Category Payer Unknown [id number] 2024 Unknown [id number] 2023 Self-pay [id number] 2021 Unknown MMO MMO MEDICARE SUPPLEMENT [id number] 2021-Present [phone] [address] [place] [address] Indemnity [id number] 2019 Unknown [id number] 2019 Unknown MMO MMO MEDICARE SUPPLEMENT [id number] 2019-Present [phone] [address] [place] [address] Indemnity [id number] 2016 Unknown [id number] 2009 Medicare MEDICARE MEDICAR E A AND B [id number] 2009-Present [phone] [address] [address] [place] [address] Medicare [id number] 2009 Medicare MEDICARE MEDICAR E A AND B [id number] 2009-Present [phone] [address] [address] [place] [id number] Medicare [id number] 2009 Medicare [id number] Unknown [id number] Unknown [id number] Unknown [id number] Unknown [id number] Unknown [id number] [id number] Unknown [id number] Unknown [id number] [id number] Unknown [id number].462 Unknown [id number] Unknown [id number] [id number] Unknown [id number] [id number] Unknown [id number] [id number] Unknown [id number] [id number] Unknown [id number] [id number] Unknown [id number] Unknown [id number] Social History Date Type Detail Facility Start: 11-20-2021 End: 01-04-2024 Tobacco smoking status UTIS Unknown if ever smoked [facility] Start: 10-03-2020 None [facility] Start: 10-03-2020 Spouse/ Significant Other [facility] Start: 10-03-2020 Non-smoker [facility] Start: 1945 Sex Assigned At Male [facility] Start: 03-07-2013 End: 05-19-2024 Tobacco smoking status NHIS Ex-smoker [facility] Work Phone: Start: 06-24-1961 End: 06-24-2011 History of tobacco use Current smoker [facility] Work Phone: Start: 06-24-1961 End: 06-24-2011 History of tobacco use Cigarette Smoker [facility] Work Phone: Start: 03-07-2013 End: 03-18-2023 Cigarettes smoked current (pack per day) - Reported 1.5 [facility] Start: 03-07-2013 End: 06-22-2022 Tobacco use and exposure Former smokeless tobacco user [facility] Work Phone: End: 06-24-2012 History of tobacco use User of smokeless tobacco [facility] Work Phone: Start: 09-16-2021 End: 11-04-2023 Alcohol intake Current non-drinker of alcohol (finding) [facility] Start: 09-16-2021 End: 09-17-2022 History SDOH Alcohol Frequency 1 [facility] Start: 04-05-2020 End: 09-17-2022 History SDOH Alcohol Std Drinks 98 [facility] Start: 04-05-2020 End: 09-17-2022 History SDOH Social Connections Phone 5 [facility] Start: 04-05-2020 End: 09-17-2022 History SDOH Social Connections Membership 2 [facility] Start: 04-05-2020 End: 09-17-2022 History SDOH Social Connections Living 3 [facility] Start: 09-16-2021 End: 09-17-2022 History SDOH Physical Activity DPW 0 [facility] Start: 04-05-2020 Education 12 [facility] Start: 12-20-2021 End: 06-30-2022 Exposure to SARS-CoV-2 (event) Not sure [facility] Start: 03-18-2023 End: 06-21-2024 Social connection and isolation panel [facility] Frequency of Communication with Friends and Family Not on file [facility] Do you belong to any clubs or organizations such as yazdanism groups, unions, fraternal or athletic groups, or school groups? No [facility] Are you now , , , , never or living with a partner? [facility] How often to you hav e a drink containing alcohol? Never [facility] Do you feel stress - tense, restless, nervous, or anxious, or unable to sleep at night because your mind is troubled all the time - these days [OSQ] Not at all [facility] (I/We) worried wheth er (my/our) food would run out before (I/we) got money to buy more. Never true [facility] Start: 09-10-2021 Gender identity Identifies as male gender (finding) [facility] Start: 06-23-2022 Sexual orientation Heterosexual (finding) [facility] Medical Equipment Procedure Code Equipment Code Equipment Origin al Text Equipment Identifier Dates Fzt-Dg-J-Kind Implant - [id number] Start: 07-10-2021 Device Angio-Sea l Vip Bondek-Plus 8fr .038in Polyglyd 70cm Closure - [id number] Start: 07-10-2021 ([id number]) Metal-backed pat flavio prosthesis ()[id number] [id number] FDA Start: 09-01-2023 ([id number]) Coated knee femu r prosthesis ()[id number] [id number] FDA Start: 09-01-2023 ([id number]) Coated knee tibi a prosthesis ()[id number] [id number] FDA Start: 09-01-2023 ([id number]) Tibial insert ()[id number] [id number] FDA Start: 09-01-2023 Goals Date Patient Goal Desired Activity /State Personal health goal Comment on above: Formatting of this n ote might be different from the original. Improved condition Personal health goal Comment on above: Formatting of this n ote might be different from the original. To be more mobile, with increased endurance, and lose weight Personal health goal Comment on above: Formatting of this n ote might be different from the original. Patient has the following Chronic Obstructive Pulmonary Disease goals: Two PCP visits annually Education provided and reviewed with patient - sent on 03/05/23 COPD DESTINEY Education - COPD About Patient will meet these goals by 03/05/24 (describe interventions done by PCC) Pt's Goal: Improved knee function and mobility Comment on above: Formatting of this n ote might be different from the original. Improved condition Comment on above: Formatting of this n ote might be different from the original. To be more mobile, and increased endurance Formatting of this n ote might be different from the original. To be more mobile, with increased endurance, and lose weight Functional Status Date Assessment Result Facility 09-02-2023 Functional status Chair [facility] Work Phone: Mental Status Date Assessment Result Facility 09-02-2023 Cognitive function Level Of Cons ciousness Awake;Alert;Appropriate;Follow s Commands [facility] Work Phone: 09-01-2023 Cognitive function Voice/Name [facility] Work Phone: 06-09-2023 Cognitive function Voice/Name [facility] Work Phone: 12-02-2022 Cognitive function Voice/Name [facility] Work Phone: 05-06-2022 Cognitive function Voice/Name [facility] Work Phone: 05-06-2022 Cognitive function Patient Orien tation Person;Place;Time [facility] Work Phone: Clinical Notes 10-20-2020 to 12-15-2024 Note Date & Type Note Facility 12-15-2024 Evaluation note Diagnosis Onset Date Resolution Atherosclerotic heart disease of [place] coronary artery without angina pectoris acute December 15, 2024 2:43pm History of transcatheter aortic valve replacement (TAVR) June, acute December 15, 2024 2:43pm Hyperlipidemia chronic December 15, 2024 2:43pm Hypertension chronic December 15, 025 2:43pm Persistent atrial fibrillation chronic December 15, 2024 2:43pm Atrial fibrillation with RVR chronic February 28, 2025 12:32pm Bilateral pulmonary embolism chronic February 28, 2025 12:32pm Obesity (BMI 30-39.9) chronic Darío 2024 12:32pm NOAM (obstructive sleep apnea) chronic February 28, 2025 12:32pm Other secondary pulmonary hypertension chronic February 28, 2025 12:32pm [facility] Work Phone: [phone] 880-842911-06-2024 NoteHNO ID: [id number] Author: FAMILIA PRATT RN Service: ? Author Type: Registered Nurse Type: Progress Notes Filed: 07/19/2024 15:56 Note Text: CDM Telephonic Outreach Provider Action/ CDM: COPD, CKD Pt has App[facility] 08[facility]Vincent Yousif Instructed to contact new PCP for any symptom changes or needs. Patient verbalized understanding. Contact made with patient: Yes Patient identified by name and date of . Discussed care with patient Familia Pratt RN July 19, 2024 3:[address] [facility] History of Present illness Narrative* Familia Pratt RN - 07/19/2024 3:42 PM EST CDM Telephonic Outreach Provider Action/ CDM: COPD, CKD Pt has Appt on 08/24/24 [facility] Dr.Vincent Yousif Instructed to contact new PCP for any symptom changes or needs. Patient verbalized understanding. Contact made with patient: Yes Patient identified by name and date of . Discussed care with patient Familia Pratt RN July 19, 2024 3:46 PM [facility] NotePatient Outreach ([facility]) JAVIRE DEGROOT ([id number]) 1945 M Date Time Provider Department 07/19/24 FAMILIA PRATT [facility] During your visit today, we recorded the following information about you: Familia Pratt RN 07/19/2024 3:56 PM Signed CD Telephonic Outreach Provider Action/ CDM: COPD, CKD Pt has Appt on 08/24/24 [facility] Dr.Vincent Yousif Instructed to contact new PCP for any symptom changes or needs. Patient verbalized understanding. Contact made with patient: Yes Patient identified by name and date of . Discussed care with patient Familia Pratt RN July 19, 2024 3:46 PM Allergies As of Date: 07/19/2024 Noted Allergy Reaction LISINOPRIL 10/15/2014 3 - Cough Date Reviewed: 11/04/2023 Reviewed by: Anabella Steve LPN - Fully Assessed Reason for Visit: CDM [Other] Cmt: Chronic Disease Management Routine Call Prescriptions as of 07/20/2024 - polyethylene glycol 3350 (MIRALAX) 17 gram/dose powder Take by mouth once daily. Dissolve dose in 4 - 8 ounces of liquid and take as directed. - Cholecalciferol, Vitamin D3, (VITAMIN D) 25 mcg (1,000 unit) cap Take 1,000 Units by mouth once daily. - tamsulosin (FLOMAX) 0.4 mg Take 2 capsules by mouth daily at bedtime. - finasteride (PROSCAR) 5 mg tablet Take 1 tablet by mouth once daily. - metoprolol tartrate [...] [facility] decreased to once daily. - apixaban (ELIQUIS) 5 mg tab tab(s) Take 1 tablet by mouth twice daily. Problem List As Of Date 07/19/2024 Noted Resolved Elevated prostate specific antigen (PSA) [...] [J43.2] 04/13/2016 Obesity, Class II, BMI 35-39.9 [E66.812] 04/13/2019 Positive colorectal cancer screening using [facility]*05/02/2020 03/22/2023 Aortic valve stenosis [I35.0] 11/26/2020 Nocturnal hypoxia [G47.34] 11/26/2020 Venous insufficiency of both lower extremities *04/28/2021 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 Obesity (BMI 35.0-39.9 without comorbidity) [E6*07/17/2021 Dependence on continuous supplemental oxygen [Z*08/22/2021 09/16/2021 Impaired fasting glucose [R73.01] 03/18/2022 Secondary pulmonary arterial hypertension (HCC)*03/18/2022 Stage 3a chronic kidney disease (HCC) [N18.31] 03/18/2022 NOAM (obstructive sleep apnea) cannot tolerate C*03/22/2023 Tremor of left hand [R25.1] 08/16/2023 Encounter Status:Closed by FAMILIA PRATT on 07/19/24[facility]10-09[facility]24 NoteHNO ID: [id number] Author: FAMILIA PRATT RN Service: ? Author Type: Registered Nurse Type: Progress Notes Filed: 06/22/2024 15:25 Note Text: CDM Telephonic Outreach Provider Action/FYI CDM: COPD, CKD 06/21/24 Pt states feeling much better, denies CP or Palpitations Pt has chronic unchanged Sob with exertion, denies Sob at rest, while on the phone Pulse Oximeter 95%, Temp 97.3 Oxygen at 2 liter at HS, approved for Portable Indigen Denies fever of chills, occasional cough with clear sputum Pt completed 06/02/23 Appt with Sisi Warner CNP Pulmonology at [facility] Pt has08/24/[address] Rey [facility], [place], [place], [facility] updated. Patient discharged from [facility], Discharge date: 05/21/24 Admitted for: confusion, fever, covid +COVID-19, confusion,fever, sob Contacted for: Routine Telephonic Outreach Contact made with patient: Yes Patient identified by name and date of . Discussed care with patient Are you experiencing any new or worsening symptoms you need to talk about today? Yes Based on picking supervisor, the following disposition is advised: No symptoms or symptoms present, not severe. Routed to: No Action Needed DESTINEY Education Provided this Outreach: No Familia Pratt RN June 21, 2024 10:38 [facility]10-09-2024 History of Present illness Narrative* Familia Pratt RN - 06/21/2024 10:21 AM EDT CDM Telephonic Outreach Provider Action/FYI CDM: COPD, CKD 06/21/24 Pt states feeling much better, denies CP or Palpitations Pt has chronic unchanged Sob with exertion, denies Sob at rest, while on the phone Pulse Oximeter 95%, Temp 97.3 Oxygen at 2 liter at HS, approved for Portable Indigen Denies fever of chills, occasional cough with clear sputum Pt completed 06/02/23 Appt with Sisi Warner CNP Pulmonology at [facility] Pt has08/24/[address] Rey SAWANT, ADL, [place], SDH updated. Patient discharged from [facility], Discharge date: 05/21/24 Admitted for: confusion, fever, covid +COVID-19, confusion,fever, sob Contacted for: Routine Telephonic Outreach Contact made with patient: Yes Patient identified by name and date of . Discussed care with patient Are you experiencing any new or worsening symptoms you need to talk about today? Yes Based on picking supervisor, the following disposition is advised: No symptoms or symptoms present, not severe. Routed to: No Action Needed DESTINEY Education Provided this Outreach: No Familia Pratt RN June 21, 2024 10:38 AM [facility] NotePatient Outreach ([facility]) JAVIER DEGROOT ([id number]) 1945 M Date Time Provider Department 06/21/24 FAMILIA PRATT [facility] During your visit today, we recorded the following information about you: Familia rPatt RN 06/22/2024 3:25 PM Signed CDM Telephonic Outreach Provider Action/FYI CDM: COPD, CKD 06/21/24 Pt states feeling much better, denies CP or Palpitations Pt has chronic unchanged Sob with exertion, denies Sob at rest, while on the phone Pulse Oximeter 95%, Temp 97.3 Oxygen at 2 liter at HS, approved for Portable Indigen Denies fever of chills, occasional cough with clear sputum Pt completed 06/02/23 Appt with Sisi Warner CNP Pulmonology at [facility] Pt has08/24/[address] Vincent [facility]ohannes [facility], AD[facility], [place], SDH updated. Patient discharged from [facility], Discharge date: 05/21/24 Admitted for: confusion, fever, covid +COVID-19, confusion,fever, sob Contacted for: Routine Telephonic Outreach Contact made with patient: Yes Patient identified by name and date of . Discussed care with patient Are you experiencing any new or worsening symptoms you need to talk about today? Yes Based on picking supervisor, the following disposition is advised: No symptoms or symptoms present, not severe. Routed to: No Action Needed DESTINEY Education Provided this Outreach: No Familia Pratt RN June 21, 2024 10:38 AM Allergies As of Date: 06/21/2024 Noted Allergy Reaction LISINOPRIL 10/15/2014 3 - Cough Date Reviewed: 11/04/2023 Reviewed by: Anabella Steve LPN - Fully Assessed Reason for Visit: CDM [Other] Cmt: Chronic Disease Management Routine Call Prescriptions as of 07/15/2024 - polyethylene glycol 3350 (MIRALAX) 17 gram/dose powder Take by mouth once daily. Dissolve dose in 4 - 8 ounces of liquid and take as directed. - Cholecalciferol, Vitamin D3, (VITAMIN D) 25 mcg (1,000 unit) cap Take 1,000 Units by mouth once daily. - tamsulosin (FLOMAX) 0.4 mg Take 2 capsules by mouth daily at bedtime. - finasteride (PROSCAR) 5 mg tablet Take 1 tablet by mouth once daily. - metoprolol tartrate [...] 40 mg by mouth once daily. Per [facility] decreased to once daily. - apixaban (ELIQUIS) 5 mg tab tab(s) Take 1 tablet by mouth twice daily. Problem List As Of Date 06/21/2024 Noted Resolved Elevated prostate specific antigen (PSA) [...] [J43.2] 04/13/2016 Obesity, Class II, BMI 35-39.9 [E66.812] 04/13/2019 Positive colorectal cancer screening using [place] [facility]*05/02/2020 03/22/2023 Aortic valve stenosis [I35.0] 11/26/2020 Nocturnal hypoxia [G47.34] 11/26/2020 Venous insufficiency of both lower extremities *04/28/2021 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 Obesity (BMI 35.0-39.9 without comorbidity) [E6*07/17/2021 Dependence on continuous supplemental oxygen [Z*08/22/2021 09/16/2021 Impaired fasting glucose [R73.01] 03/18/2022 Secondary pulmonary arterial hypertension (HCC)*03/18/2022 Stage 3a chronic kidney disease (HCC) [N18.31] 03/18/2022 NOAM (obstructive sleep apnea) cannot tolerate C*03/22/2023 Tremor of left hand [R25.1] 08/16/2023 Encounter Status:Closed by FAMILIA PRATT on 06/22/24[facility]09-[facility]-2024 NoteHNO ID: [id number] Author: NABEEL GUERRA RN Service: ? Author Type: Registered Nurse Type: Progress Notes Filed: 05/22/2024 14:57 Note Text: Transition Care Management (TCM) Initial Outreach PCP Update / Actionable Items Eligible for tcm through 06/04/24 HRTIC TCM Home Visit Referral Source of Stratification: [facility] Hospital Admission Status: Discharged Readmission Risk Score: n/a Patient's zip code: [address] Is zip code within program service area: No Patient meets program referral criteria: No Patient does not qualify for High Risk TCM Home Visit program due to: Patient's zip code is not located within program service area Disposition: Patient does not qualify for HRTIC, will provide TCM outreach follow-up for 30-days Patient Source: [facility] Outreach Summary: Patient states is feeling better O2 2L NC Sob always Denies CP, cough ,wheezing, fever/chills, n/v Appetite good eating and hydrating Voiding and bm without difficulty, BM 05/21/24 Ambulating up ad lzu Fatigue yes Denies questions, concerns regarding medications, self care , no issues, stable Patient discharged from [facility], Discharge date: 05/21/24 Admitted for: confusion, fever, covid +COVID-19, confusion,fever, sob Readmission Risk: n/a Value-Based Contract: ACO Contact: Contact made with patient: Yes Hi, my name is Nabeel Guerra RN and I am calling from the [facility] on behalf of your Primary Care Provider, Tomy Hernandez MD. I understand you were recently in the hospital, so I am calling to check in with you to ensure you are feeling well now that you are home. May I ask you a few questions related to your hospital stay and well-being? Yes Spoke to: Patient Validation: Validated the person spoken to is actively involved in the patient's care. The patient was identified by Name and Date of . Symptoms: Are you feeling about the same, better or worse since leaving the hospital? Better Medications: Do you have any questions about taking your medications, including which medications you should be on, or do you need refills on your medications? No Medication Review: Declined at this time per patient preference Discharge Instructions: Your Discharge Instructions / After Visit Summary (AVS) are important in guiding you through the recovery process. Do you have any questions related to your discharge instructions? No Home Care: Were you discharged with home care? No Equipment: Do you have all the necessary equipment and supplies needed at your home? Yes The patient verbalizes understanding the use of the equipment and supplies Social: We would like to make sure you have what you need so that your basics needs are met - including your personal safety, food, housing and medications. Would you like to speak with a social work application development team lead to help give you support for any of these needs? No It can be normal to feel anxious or down during a time like this. Would you like to talk to a mental health professional about how you have been feeling? No Action Taken: No needs verbalized. No action required. Follow-Up Appointment: [Appointment / TCM Follow-up within 14 days] I would like to help you schedule a hospital follow-up virtual or telephone visit with your PCP. This is a great way for you to connect with your provider to ensure you have safely transitioned home. If you are agreeable, I will send your request to a guidance services coordinator who will contact and assist you with that appointment. This will give you an opportunity to ask any questions or address any concerns you may have with your PCP. Inform the patient that if they have any questions or concerns prior to that appointment, to call their PCP's office right away. Appointment Action: No action required, patient declines appointment. Education N/A Targets addressed / completed during outreach: Contact patient within two (2) business days Outreach Outcome: Declines all TCM outreach Care Management partners utilized: N/A Nabeel Guerra RN May 22, 2024 2:22 [facility]09-09-2024 History of Present illness Narrative* Nabeel Guerra RN - 05/22/2024 2:15 PM EDT Transition Care Management (TCM) Initial Outreach PCP Update / Actionable Items Eligible for tcm through 06/04/24 HRTIC TCM Home Visit Referral Source of Stratification: [facility] Hospital Admission Status: Discharged Readmission Risk Score: n/a Patient's zip code: [address] Is zip code within program service area: No Patient meets program referral criteria: No Patient does not qualify for High Risk TCM Home Visit program due to: Patient's zip code is not located within program service area Disposition: Patient does not qualify for HRTIC, will provide TCM outreach follow-up for 30-days Patient Source: [facility] Outreach Summary: Patient states is feeling better O2 2L NC Sob always Denies CP, cough ,wheezing, fever/chills, n/v Appetite good eating and hydrating Voiding and bm without difficulty, BM 05/21/24 Ambulating up ad luz Fatigue yes Denies questions, concerns regarding medications, self care , no issues, stable Patient discharged from [facility], Discharge date: 05/21/24 Admitted for: confusion, fever, covid +COVID-19, confusion,fever, sob Readmission Risk: n/a Value-Based Contract: ACO Contact: Contact made with patient: Yes Hi, my name is Nabeel Guerra RN and I am calling from the [facility] on behalf of your Primary Care Provider, Tomy Hernandez MD. I understand you were recently in the hospital, so I am calling to check in with you to ensure you are feeling well now that you are home. May I ask you a few questions related to your hospital stay and well-being? Yes Spoke to: Patient Validation: Validated the person spoken to is actively involved in the patient's care. The patient was identified by Name and Date of . Symptoms: Are you feeling about the same, better or worse since leaving the hospital? Better Medications: Do you have any questions about taking your medications, including which medications you should be on, or do you need refills on your medications? No Medication Review: Declined at this time per patient preference Discharge Instructions: Your Discharge Instructions / After Visit Summary (AVS) are important in guiding you through the recovery process. Do you have any questions related to your discharge instructions? No Home Care: Were you discharged with home care? No Equipment: Do you have all the necessary equipment and supplies needed at your home? Yes The patient verbalizes understanding the use of the equipment and supplies Social: We would like to make sure you have what you need so that your basics needs are met - including your personal safety, food, housing and medications. Would you like to speak with a social work application development team lead to help give you support for any of these needs? No It can be normal to feel anxious or down during a time like this. Would you like to talk to a mental health professional about how you have been feeling? No Action Taken: No needs verbalized. No action required. Follow-Up Appointment: [Appointment / TCM Follow-up within 14 days] I would like to help you schedule a hospital follow-up virtual or telephone visit with your PCP. This is a great way for you to connect with your provider to ensure you have safely transitioned home.If you are agreeable, I will send your request to a guidance services coordinator who will contact and assist you with that appointment. This will give you an opportunity to ask any questions or address any concerns youmay have with your PCP. Inform the patient that if they have any questions or concerns prior to that appointment, to call their PCP's office right away. Appointment Action: No action required, patient declines appointment. Education N/A Targets addressed / completed during outreach: Contact patient within two (2) business days Outreach Outcome: Declines all TCM outreach Care Management partners utilized: N/A Nabeel Guerra RN May 22, 2024 2:22 PM [facility] NotePatient Outreach ([facility]) JAVIER DEGROOT ([id number]) 1945 M Date Time Provider Department 05/22/24 NABEEL GUERRAG During your visit today, we recorded the following information about you: Nabeel Guerra RN 05/22/2024 2:57 PM Signed Transition Care Management (TCM) Initial Outreach PCP Update / Actionable Items Eligible for tcm through 06/04/24 HRTIC TCM Home Visit Referral Source of Stratification: [facility] Admission Status: Discharged Readmission Risk Score: n/a Patient's zip code: [address] Is zip code within program service area: No Patient meets program referral criteria: No Patient does not qualify for High Risk TCM Home Visit program due to: Patient's zip code is not located within program service area Disposition: Patient does not qualify for HRTIC, will provide TCM outreach follow-up for 30-days Patient Source: [facility] Outreach Summary: Patient states is feeling better O2 2L NC Sob always Denies CP, cough ,wheezing, fever/chills, n/v Appetite good eating and hydrating Voiding and bm without difficulty, BM 05/21/24 Ambulating up ad luz Fatigue yes Denies questions, concerns regarding medications, self care , no issues, stable Patient discharged from [facility], Discharge date: 05/21/24 Admitted for: confusion, fever, covid +COVID-19, confusion,fever, sob Readmission Risk: n/a Value-Based Contract: ACO Contact: Contact made with patient: Yes Hi, my name is Nabeel Guerra RN and I am calling from the [facility] on behalf of your Primary Care Provider, Tomy Hernandez MD. I understand you were recently in the hospital, so I am calling to check in with you to ensure you are feeling well now that you are home. May I ask you a few questions related to your hospital stay and well-being? Yes Spoke to: Patient Validation: Validated the person spoken to is actively involved in the patient's care. The patient was identified by Name and Date of . Symptoms: Are you feeling about the same, better or worse since leaving the hospital? Better Medications: Do you have any questions about taking your medications, including which medications you should be on, or do you need refills on your medications? No Medication Review: Declined at this time per patient preference Discharge Instructions: Your Discharge Instructions / After Visit Summary (AVS) are important in guiding you through the recovery process. Do you have any questions related to your discharge instructions? No Home Care: Were you discharged with home care? No Equipment: Do you have all the necessary equipment and supplies needed at your home? Yes The patient verbalizes understanding the use of the equipment and supplies Social: We would like to make sure you have what you need so that your basics needs are met - including your personal safety, food, housing and medications. Would you like to speak with a social work application development team lead to help give you support for any of these needs? No It can be normal to feel anxious or down during a time like this. Would you like to talk to a mental health professional about how you have been feeling? No Action Taken: No needs verbalized. No action required. Follow-Up Appointment: [Appointment / TCM Follow-up within 14 days] I would like to help you schedule a hospital follow-up virtual or telephone visit with your PCP. This is a great way for you to connect with your provider to ensure you have safely transitioned home. If you are agreeable, I will send your request to a guidance services coordinator who will contact and assist you with that appointment. This will give you an opportunity to ask any questions or address any concerns you may have with your PCP. Inform the patient that if they have any questions or concerns prior to that appointment, to call their PCP's office right away. Appointment Action: No action required, patient declines appointment. Education N/A Targets addressed / completed during outreach: Contact patient within two (2) business days Outreach Outcome: Declines all [facility] outreach Care Management partners utilized: N/A Nabeel Guerra RN May 22, 2024 2:22 PM Allergies As of Date: 05/22/2024 Noted Allergy Reaction LISINOPRIL 10/15/2014 3 - Cough Date Reviewed: 11/04/2023 Reviewed by: Anabella Steve LPN - Fully Assessed Reason for Visit: Transition Of Care [3804] Cmt: [facility],Discharge 05/21/24 Prescriptions as of 05/22/2024 - polyethylene glycol 3350 (MIRALAX) 17 gram/dose powder Take by mouth once daily. Dissolve dose in 4 - 8 ounces of liquid and take as directed. - Cholecalciferol, Vitamin D3, (VITAMIN D) 25 mcg (1,000 unit) cap Take 1,000 Units by mouth once daily. - tamsulosin (FLOMAX) 0.4 mg Take 2 capsules by mouth junior (more content not included)...[facility]09-08-2024 [facility] Medical Records Department [address] [place] [address] Discharge Summary 05/21/24 0837 MR#: [id number] Acct: [id number] Name: JAVIER DEGROOT Rep #: [id number] : 1945 78 From: Chema Fuentes MD PCP: Dr. Tomy Hernandez MD Status:ADM [facility] Prov[facility] Date of Admission: 05/18/24 Date of Discharge: 05/21/24 Primary Care Physician: Dr. Tomy Hernandez MD Reason For Visit: COVID, PAF RVR Diagnosis Discharge Diagnosis (1) COVID-19: Status: Acute Code(s): U07.1 - COVID-19 Plan Patient is a 78-year-old lady who presented with shortness of breath fever as well as some confusion. She had previously tested positive for COVID. Chest x-ray obtained on admission demonstrated Increased interstitial markings may represent edema and/or infection. Admitted to monitored bed for subsequent management 1. Acute hypoxia ??? Secondary to COVID-19 admitted to a monitored bed for symptom management. Patient was started on Decadron as well as remdesivir on admission. 2. Paroxysmal A-fib with RVR ??? Patient is on diltiazem as well as metoprolol continue also on systemic anticoagulation with apixaban 3. Valvular heart disease ??? Status post TAVR at [facility] patient remained stable 4. Chronic hypoxic respiratory failure ??? Secondary to COPD patient is on 2 L home oxygen at baseline 5. BPH with lower urinary obstructive symptoms - Patient treated with tamsulosin and finasteride 6. Hypertension ??? Blood pressure controlled, home medications continued with dose adjustment as needed 7. Dyslipidemia ???Patient is on statin therapy, continued at home dose 8. Previous history of VTE (DVT and PE ??? Patient is a stable anticoagulation with apixaban continue 9.Acute cystitis with UTI and erectile ??? Patient started on ceftriaxone, urine culture sent ??? 05/20/2024 urine cultures positive for presumptive E. coli with nonsignificant colony count and alphahemolytic organism final studies pending. Patient ceftriaxone discontinued started on Levaquin -05/21/2024;Final urine cultures positive for presumptive E. coli as well as Aerococcus sensitivities reviewed.. Discharged on levofloxacin 10. Acute kidney injury ??? Baseline creatinine from 09/02/2023 was 1.12, creatinine on admission was 1.44 patient is on furosemide held daily monitoring with BMP ordered ??? 05/20/2024; OSCAR resolved 11. DVT prophylaxis ??? On apixaban Time spent in the patient's overall evaluation,decision-making process, review of diagnostic data, adjustment of management, discussion with other providers, nursing nursing and ancillary staff involved in patient's care documentation, 36 Minutes Medications at Discharge Home Medications finasteride 5 mg tablet 5 mg PO DAILY prostate 09/24/15 tamsulosin 0.4 mg capsule (Flomax) 0.8 mg PO QHS prostate 02/28/18 Disability Placard #1 ea 01/01/21 aspirin 81 mg capsule 81 mg PO DAILY antiplatelet 05/06/21 inulin 2,500 mg-vitamin D3 500 unit chewable tablet (Fiber Gummies with Vitamin D3) 2 tab PO DAILY supplement 08/12/23 polyethylene glycol 3350 17 gram/dose oral powder (Miralax) 17 g PO DAILY stool softener 08/12/23 atorvastatin 10 mg tablet 10 mg PO QDAY #90 tabs 08/27/23 diltiazem HCl 120 mg tablet 120 mg PO BID 90 days #180 tabs 08/27/23 metoprolol tartrate 75 mg tablet 75 mg PO BID #180 tabs 08/27/23 apixaban 5 mg tablet 5 mg PO BID blood thinner #180 tabs 11/29/23 potassium chloride 20 mEq tablet,extended release(part/cryst) (Klor-Con M) 30 meq PO DAILY potassium replacement 01/04/24 furosemide 40 mg tablet 40 mg PO DAILY fluid 05/09/24 acetaminophen 500 mg tablet 1,300 mg PO DAILY PRN pain 05/18/24 cholecalciferol (vitamin D3) 25 mcg (1,000 unit) capsule 1,000 unit PO DAILY supplement 05/18/24 docusate sodium 250 mg capsule 250 mg PO BID stool softener 05/18/24 levofloxacin 750 mg tablet 750 mg PO DAILY #5 tabs 05/21/24 Physical Exam Narrative GENERAL: cooperative HEENT: Atraumatic; normocephalic EYES; Anicteric, Normal Conjunctiva NECK; supple, normal thyroid, RESPIRATORY: Diminished to auscultation CARDIOVASCULAR: Regular S1 S2, GI: soft, normoactive bowel sounds, : No Renal angle tenderness; EXTREMITIES: No edema, no clubbing, MUSCULOSKELETAL: no muscle wasting NEURO: Awake; no lateralizing signs. SKIN: No Rash PSYCH; Flat affect Weight / BMI Weight Weight: 110.5 kg Body Mass Index (BMI) 38.1 ABG / Lab / Microbiology Data 05/21/24 06:00 05/21/24 06:00 Laboratory: Laboratory Results - last 24 hr 05/20/24 08:56: WBC 11.1 H, RBC 4.27 L, Hgb 13.6, Hct 41.7, MCV 97.7 H, MCH 31.9, MCHC 32.6, RDW Std Deviation 47.3 H, RDW Coeff of Zackary 13.2, Plt Count 183, MPV 9.8, Immature Gran % (Auto) 0.500, Neut % (Auto) 87.0 H, Lymph % (Auto) 5.6 L, Gillespie % (Auto) 6.8, Eos % (Auto) 0.0, (more content not included)...[facility]08-16-2024 NoteHNO ID: [id number] Author: FAMILIA PRATT RN Service: ? Author Type: Registered Nurse Type: Progress Notes Filed: 04/28/2024 16:11 Note Text: CDM Telephonic Outreach Provider Action/FYI CDM: COPD, CKD, Left a message to verify symptom status and needs. Instructed to call PCP with any symptom or condition changes Contacted for: Routine Telephonic Outreach Contact made with patient: No, left message. Familia Pratt RN April 28, 2024 4:09 [facility]08-16-2024 History of Present illness Narrative* Familia Pratt RN - 04/28/2024 4:08 PM EDT CDM Telephonic Outreach Provider Action/FYI CDM: COPD, CKD, Left a message to verify symptom status and needs. Instructed to call PCP with any symptom or condition changes Contacted for: Routine Telephonic Outreach Contact made with patient: No, left message. Familia Pratt RN April 28, 2024 4:09 PM documented in [facility] encounter[facility] NotePatient Outreach ([facility]) JAVIER DEGROOT ([id number]) 1945 M Date Time Provider Department 04/28/24 FAMILIA PRATT [facility] During your visit today, we recorded the following information about you: Familia Pratt RN 04/28/2024 4:11 PM Signed CDM Telephonic Outreach Provider Action/FYI CDM: COPD, CKD, Left a message to verify symptom status and needs. Instructed to call PCP with any symptom or condition changes Contacted for: Routine Telephonic Outreach Contact made with patient: No, left message. Familia Pratt RN April 28, 2024 4:09 PM Allergies As of Date: 04/28/2024 Noted Allergy Reaction LISINOPRIL 10/15/2014 3 - Cough Date Reviewed: 11/04/2023 Reviewed by: Anabella Steve LPN - Fully Assessed Reason for Visit: Community Monitoring Outreach [Other] Prescriptions as of 04/28/2024 - polyethylene glycol 3350 (MIRALAX) 17 gram/dose powder Take by mouth once daily. Dissolve dose in 4 - 8 ounces of liquid and take as directed. - Cholecalciferol, Vitamin D3, (VITAMIN D) 25 mcg (1,000 unit) cap Take 1,000 Units by mouth once daily. - tamsulosin (FLOMAX) 0.4 mg Take 2 capsules by mouth daily at bedtime. - finasteride (PROSCAR) 5 mg tablet Take 1 tablet by mouth once daily. - metoprolol tartrate [...] 40 mg by mouth once daily. Per [facility] decreased to once daily. - apixaban (ELIQUIS) 5 mg tab tab(s) Take 1 tablet by mouth twice daily. Problem List As Of Date 04/28/2024 Noted Resolved Elevated prostate specific antigen (PSA) [...] [E66.9] 04/13/2019 Positive colorectal cancer screening using [facility]*05/02/2020 03/22/2023 Aortic valve stenosis [I35.0] 11/26/2020 Nocturnal hypoxia [G47.34] 11/26/2020 Venous insufficiency of both lower extremities *04/28/2021 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 Obesity (BMI 35.0-39.9 without comorbidity) [E6*07/17/2021 Dependence on continuous supplemental oxygen [Z*08/22/2021 09/16/2021 Impaired fasting glucose [R73.01] 03/18/2022 Secondary pulmonary arterial hypertension (HCC)*03/18/2022 Stage 3a chronic kidney disease (HCC) [N18.31] 03/18/2022 NOAM (obstructive sleep apnea) cannot tolerate C*03/22/2023 Tremor of left hand [R25.1] 08/16/2023 Encounter Status:Closed by FAMILIA PRATT on 04/28/24[facility] NoteHNO ID: [id number] Author: FAMILIA PRATT RN Service: ? Author Type: Registered Nurse Type: Progress Notes Filed: 04/06/2024 15:51 Note Text: CDM Telephonic Outreach Provider Action/FYI CDM: COPD, CKD, Pt denies symptom changes, concerns, or needs SDH, and Goals updated Contacted for: Routine Telephonic Outreach Contact made with patient: Yes Patient identified by name and date of . Discussed care with patient Are you experiencing any new or worsening symptoms you need to talk about today? No Disease Specific Do you check your blood pressure at home? Yes, Enter readings: 121/68 Do you have new or worsening shortness [...] more often than normal? No Based on picking supervisor, the following disposition is advised: No symptoms or symptoms present, not severe. Routed to: No Action Needed DESTINEY Education Provided this Outreach: No Familia Pratt RN April 06, 2024 3:45 [facility]07-25-2024 History of Present illness Narrative* Familia Pratt RN - 04/06/2024 3:39 PM EDT CDM Telephonic Outreach Provider Action/FYI CDM: COPD, CKD, Pt denies symptom changes, concerns, or needs SDH, and Goals updated Contacted for: Routine Telephonic Outreach Contact made with patient: Yes Patient identified by name and date of . Discussed care with patient Are you experiencing any new or worsening symptoms you need to talk about today? No Disease Specific Do you check your blood pressure at home? Yes, Enter readings: 121/68 Do you have new or worsening shortness [...] more often than normal? No Based on picking supervisor, the following disposition is advised: No symptoms or symptoms present, not severe. Routed to: No Action Needed DESTINEY Education Provided this Outreach: No Familia Pratt RN April 06, 2024 3:45 PM * Familia Pratt RN - 04/06/2024 3:38 PM EDT * Familia Pratt RN - 03/31/2024 7:24 PM EDT CDM Telephonic Outreach Provider Action/FYI CDM: COPD, CKD, Called Pt, unable to leave a message to verify symptom status and needs. Goals updated Contacted for: Routine Telephonic Outreach Contact made with patient: No, unable to leave message. Will reattempt call Familia Pratt RN March 31, 2024 7:24 PM documented in this encounterC[facility]24 NoteHNO ID: [id number] Author: FAMILIA PRATT RN Service: ? Author Type: Registered Nurse Type: Progress Notes Filed: 04/06/2024 15:51 Note Text:[facility]07-19-2024 NoteHNO ID: [id number] Author: FAMILIA PRATT RN Service: ? Author Type: Registered Nurse Type: Progress Notes Filed: 04/06/2024 15:51 Note Text: CDM Telephonic Outreach Provider Action/FYI CDM: COPD, CKD, Called Pt, unable to leave a message to verify symptom status and needs. Goals updated Contacted for: Routine Telephonic Outreach Contact made with patient: No, unable to leave message. Will reattempt call Familia Pratt RN March 31, 2024 7:24 [facility]07-19-2024 NotePatient Outreach ([facility]) JAVIER DEGROOT ([id number]) 1945 M Date Time Provider Department 03/31/24 FAMILIA PRATTG During your visit today, we recorded the following information about you: Familia Pratt RN 04/06/2024 3:51 PM Signed CDM Telephonic Outreach Provider Action/FYI CDM: COPD, CKD, Called Pt, unable to leave a message to verify symptom status and needs. Goals updated Contacted for: Routine Telephonic Outreach Contact made with patient: No, unable to leave message. Will reattempt call Familia Pratt RN March 31, 2024 7:24 PM Familia Pratt RN 04/06/2024 3:51 PM Signed Familia Pratt RN 04/06/2024 3:51 PM Signed CDM Telephonic Outreach Provider Action/FYI CDM: COPD, CKD, Pt denies symptom changes, concerns, or needs SDH, and Goals updated Contacted for: Routine Telephonic Outreach Contact made with patient: Yes Patient identified by name and date of . Discussed care with patient Are you experiencing any new or worsening symptoms you need to talk about today? No Disease Specific Do you check your blood pressure at home? Yes, Enter readings: 121/68 Do you have new or worsening shortness [...] more often than normal? No Based on picking supervisor, the following disposition is advised: No symptoms or symptoms present, not severe. Routed to: No Action Needed DESTINEY Education Provided this Outreach: No Familia Pratt RN April 06, 2024 3:45 PM Allergies As of Date: 03/31/2024 Noted Allergy Reaction LISINOPRIL 10/15/2014 3 - Cough Date Reviewed: 11/04/2023 Reviewed by: Anabella Steve LPN - Fully Assessed Reason for Visit: [facility] Outreach [Other] Prescriptions as of 04/06/2024 - polyethylene glycol 3350 (MIRALAX) 17 gram/dose powder Take by mouth once daily. Dissolve dose in 4 - 8 ounces of liquid and take as directed. - Cholecalciferol, Vitamin D3, (VITAMIN D) 25 mcg (1,000 unit) cap Take 1,000 Units by mouth once daily. - tamsulosin (FLOMAX) 0.4 mg Take 2 capsules by mouth daily at bedtime. - finasteride (PROSCAR) 5 mg tablet Take 1 tablet by mouth once daily. - metoprolol tartrate [...] [facility] decreased to once daily. - apixaban (ELIQUIS) 5 mg tab tab(s) Take 1 tablet by mouth twice daily. Problem List As Of Date 03/31/2024 Noted Resolved Elevated prostate specific antigen (PSA) [...] [E66.9] 04/13/2019 Positive colorectal cancer screening using [facility]*05/02/2020 03/22/2023 Aortic valve stenosis [I35.0] 11/26/2020 Nocturnal hypoxia [G47.34] 11/26/2020 Venous insufficiency of both lower extremities *04/28/2021 S/P TAVR (transcatheter aortic valve repla (more content not included)... [facility]06-13-2024 NoteHNO ID: [id number] Author: FAMILIA PRATT RN Service: ? Author Type: Registered Nurse Type: Progress Notes Filed: 02/24/2024 17:23 Note Text: CDM Telephonic Outreach Provider Action/FYI CDM: COPD, CKD Pt noted completed 02/23/24 Appt with Pulmonology Sisi Warner at [facility], Pt reports CT of Chest showed mild Emphasema, completed PFT, and 6 minute walk test Pt [facility]H, Goals updated Contacted for: Routine Telephonic Outreach Contact made with patient: Yes Patient identified by name and date of . Discussed care with patient Are you experiencing any new or worsening symptoms you need to talk about today? No Disease Specific Do you check your blood pressure at home? Yes, Enter readings: 120/64 Do you have new or worsening shortness [...] more often than normal? No Based on picking supervisor, the following disposition is advised: No symptoms or symptoms present, not severe. Routed to: No Action Needed DESTINEY Education Provided this Outreach: No Familia Pratt RN February 24, 2024 5:08 [facility]06-13-2024 History of Present illness Narrative* Familia Pratt RN - 02/24/2024 5:07 PM EDT CDM Telephonic Outreach Provider Action/FYI CDM: COPD, CKD Pt noted completed 02/23/24 Appt with Pulmonology Sisi Warner at [facility], Pt reports CT of Chest showed mild Emphasema, completed PFT, and 6 minute walk test Pt will be [facility] SDH, Goals updated Contacted for: Routine Telephonic Outreach Contact made with patient: Yes Patient identified by name and date of . Discussed care with patient Are you experiencing any new or worsening symptoms you need to talk about today? No Disease Specific Do you check your blood pressure at home? Yes, Enter readings: 120/64 Do you have new or worsening shortness [...] more often than normal? No Based on picking supervisor, the following disposition is advised: No symptoms or symptoms present, not severe. Routed to: No Action Needed DESTINEY Education Provided this Outreach: No Familia Pratt RN February 24, 2024 5:08 PM documented in this encounterC[facility] NotePatient Outreach ([facility]) JAVIER DEGROOT ([id number]) 1945 M Date Time Provider Department 02/24/24 FAMILIA PRATT [facility] During your visit today, we recorded the following information about you: Familia Pratt RN 02/24/2024 5:23 PM Signed CDM Telephonic Outreach Provider Action/FYI CDM: COPD, CKD Pt noted completed 02/23/24 Appt with Pulmonology Sisi Warner at [facility], Pt reports CT of Chest showed mild Emphasema, completed PFT, and 6 minute walk test Pt will be [facility] 02/24/[facility] SDH, Goals updated Contacted for: Routine Telephonic Outreach Contact made with patient: Yes Patient identified by name and date of . Discussed care with patient Are you experiencing any new or worsening symptoms you need to talk about today? No Disease Specific Do you check your blood pressure at home? Yes, Enter readings: 120/64 Do you have new or worsening shortness [...] more often than normal? No Based on picking supervisor, the following disposition is advised: No symptoms or symptoms present, not severe. Routed to: No Action Needed DESTINEY Education Provided this Outreach: Daphney Pratt RN February 24, 2024 5:08 PM Allergies As of Date: 02/24/2024 Noted Allergy Reaction LISINOPRIL 10/15/2014 3 - Cough Date Reviewed: 11/04/2023 Reviewed by: Anabella Steve LPN - Fully Assessed Reason for Visit: Community Monitoring Outreach [Other] Prescriptions as of 02/24/2024 - polyethylene glycol 3350 (MIRALAX) 17 gram/dose powder Take by mouth once daily. Dissolve dose in 4 - 8 ounces of liquid and take as directed. - Cholecalciferol, Vitamin D3, (VITAMIN D) 25 mcg (1,000 unit) cap Take 1,000 Units by mouth once daily. - tamsulosin (FLOMAX) 0.4 mg Take 2 capsules by mouth daily at bedtime. - finasteride (PROSCAR) 5 mg tablet Take 1 tablet by mouth once daily. - metoprolol tartrate [...] [facility] decreased to once daily. - apixaban (ELIQUIS) 5 mg tab tab(s) Take 1 tablet by mouth twice daily. Problem List As Of Date 02/24/2024 Noted Resolved Elevated prostate specific antigen (PSA) [...] [E66.9] 04/13/2019 Positive colorectal cancer screening using [facility]*05/02/2020 03/22/2023 Aortic valve stenosis [I35.0] 11/26/2020 Nocturnal hypoxia [G47.34] 11/26/2020 Venous insufficiency of both lower extremities *04/28/2021 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 Obesity (BMI 35.0-39.9 without comorbidity) [E6*07/17/2021 Dependence on continuous supplemental oxygen [Z*08/22/2021 09/16/2021 Impaired fasting glucose [R73.01] 03/18/2022 Secondary pulmonary arterial hypertension (HCC)*03/18/2022 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ax #; [phone], Team 11, Tamar Louis NP. Faxed as requested. [facility]06-12-2024 Miscellaneous Notes* Telephone Encounter - Janeth Hong LPN - 02/23/2024 12:12 PM EDT Patients [facility] Fax #; [phone], Team 11, Tamar Louis NP. Faxed as requested. [facility] Procedure [facility]04-29-2024 NoteHNO ID: [id number] Author: FAMILIA PRATT RN Service: ? Author Type: Registered Nurse Type: Progress Notes Filed: 01/10/2024 14:47 Note Text: CDM Telephonic Outreach Provider Action/FYI CDM: COPD, CKD Pt reports completed PFT at [facility], has a 01/13/24 6 min walk test and CT of Chest to be scheduled. BP 126/64, Pulse 97, Pulse ox 94-97 %, Oxygen 2 liters at HS Pt is using a stepper at home 15 min several times week, denies Left knee pain, denies symptom changes, concerns or needs SDH, Goals updated Contacted for: Routine Telephonic Outreach Contact made with patient: Yes Patient identified by name and date of . Discussed care with patient Are you experiencing any new or worsening symptoms you need to talk about today? No Disease Specific Do you check your blood pressure at home? Yes, Enter readings: 139/85 Do you have new or worsening shortness [...] more often than normal? No Based on picking supervisor, the following disposition is advised: No symptoms or symptoms present, not severe. Routed to: No Action Needed DESTINEY Education Provided this Outreach: No Familia Pratt RN January 10, 2024 2:15 [facility]04-29-2024 History of Present illness Narrative* Familia Pratt RN - 01/10/2024 2:17 PM EDT CDM Telephonic Outreach Provider Action/FYI CDM: COPD, CKD Pt reports completed PFT at [facility], has a 01/13/24 6 min walk test and CT of Chest to be scheduled. BP 126/64, Pulse 97, Pulse ox 94-97 %, Oxygen 2 liters at HS Pt is using a stepper at home 15 min several times week, denies Left knee pain, denies symptom changes, concerns or needs SDH, Goals updated Contacted for: Routine Telephonic Outreach Contact made with patient: Yes Patient identified by name and date of . Discussed care with patient Are you experiencing any new or worsening symptoms you need to talk about today? No Disease Specific Do you check your blood pressure at home? Yes, Enter readings: 139/85 Do you have new or worsening shortness [...] more often than normal? No Based on picking supervisor, the following disposition is advised: No symptoms or symptoms present, not severe. Routed to: No Action Needed DESITNEY Education Provided this Outreach: No Familia Pratt RN January 10, 2024 2:15 PM documented in this encounterC[facility] NotePatient Outreach ([facility]) JAVIER DEGROOT ([id number]) 1945 M Date Time Provider Department 01/10/24 FAMILIA PRATT [facility] During your visit today, we recorded the following information about you: Familia Pratt RN 01/10/2024 2:47 PM Signed CDM Telephonic Outreach Provider Action/FYI CDM: COPD, CKD Pt reports completed PFT at [facility], has a 01/13/24 6 min walk test and CT of Chest to be scheduled. BP 126/64, Pulse 97, Pulse ox 94-97 %, Oxygen 2 liters at HS Pt is using a stepper at home 15 min several times week, denies Left knee pain, denies symptom changes, concerns or needs SDH, Goals updated Contacted for: Routine Telephonic Outreach Contact made with patient: Yes Patient identified by name and date of . Discussed care with patient Are you experiencing any new or worsening symptoms you need to talk about today? No Disease Specific Do you check your blood pressure at home? Yes, Enter readings: 139/85 Do you have new or worsening shortness [...] more often than normal? No Based on picking supervisor, the following disposition is advised: No symptoms or symptoms present, not severe. Routed to: No Action Needed DESTINEY Education Provided this Outreach: No Familia M Pratt, RN January 10, 2024 2:15 PM Allergies As of Date: 01/10/2024 Noted Allergy Reaction LISINOPRIL 10/15/2014 3 - Cough Date Reviewed: 11/04/2023 Reviewed by: Anabella Steve LPN - Fully Assessed Reason for Visit: Community Monitoring Outreach [Other] Prescriptions as of 01/10/2024 - polyethylene glycol 3350 (MIRALAX) 17 gram/dose powder Take by mouth once daily. Dissolve dose in 4 - 8 ounces of liquid and take as directed. - Cholecalciferol, Vitamin D3, (VITAMIN D) 25 mcg (1,000 unit) cap Take 1,000 Units by mouth once daily. - tamsulosin (FLOMAX) 0.4 mg Take 2 capsules by mouth daily at bedtime. - finasteride (PROSCAR) 5 mg tablet Take 1 tablet by mouth once daily. - metoprolol tartrate [...] [facility] decreased to once daily. - apixaban (ELIQUIS) 5 mg tab tab(s) Take 1 tablet by mouth twice daily. Problem List As Of Date 01/10/2024 Noted Resolved Elevated prostate specific antigen (PSA) [...] [E66.9] 04/13/2019 Positive colorectal cancer screening using [facility]*05/02/2020 03/22/2023 Aortic valve stenosis [I35.0] 11/26/2020 Nocturnal hypoxia [G47.34] 11/26/2020 Venous insufficiency of both lower extremities *04/28/2021 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 Obesity (BMI 35.0-39.9 without comorbidity) [E6*07/17/2021 Dependence on continuous supplemental oxygen [Z*08/22/2021 09/16/2021 Impaired fasting glucose [R73.01] 03/18/2022 Secondary pulmonary arterial hypertension (HCC)*03/18/2022 Stage 3a chronic kidn (more content not included)...[facility] 12-09-2023 NoteHNO ID: [id number] Author: FAMILIA PRATT RN Service: ? Author Type: Registered Nurse Type: Progress Notes Filed: 12/09/2023 15:29 Note Text: CDM Telephonic Outreach Provider Action/FYI CDM: COPD, CKD Pt underwent Left Knee replacement, received Physical Therapy and is steadily improving, Exercising with a recumbent bike for 5 minutes at a time Left Leg stasis ulcer wound is healing BP 124/60, Pulse Oximeter 96% Pt denies needs or concerns Contacted for: Routine Telephonic Outreach Contact made with patient: Yes Patient identified by name and date of . Discussed care with patient Are you experiencing any new or worsening symptoms you need to talk about today? Yes Based on picking supervisor, the following disposition is advised: No symptoms or symptoms present, not severe. Routed to: No Action Needed DESTINEY Education Provided this Outreach: No Familia Pratt RN December 09, 2023 3:18 [facility]03-27-2024 NoteHNO ID: [id number] Author: FAMILIA PRATT RN Service: ? Author Type: Registered Nurse Type: Progress Notes Filed: 12/09/2023 15:29 Note Text: CDM Telephonic Outreach Provider Action/FYI CDM: COPD, CKD Left a message to verify symptom status, instructed to contact PCP for condition changes and needs. Contacted for: Routine Telephonic Outreach Contact made with patient: No, left message. Familia Pratt RN December 08, 2023 2:29 [facility]03-27-2024 NotePatient Outreach ([facility]) JAVIER DEGROOT ([id number]) 1945 M Date Time Provider Department 12/08/23 FAMILIA PRATT [facility] During your visit today, we recorded the following information about you: Familia Pratt RN 12/09/2023 3:29 PM Signed CDM Telephonic Outreach Provider Action/FYI CDM: COPD, CKD Left a message to verify symptom status, instructed to contact PCP for condition changes and needs. Contacted for: Routine Telephonic Outreach Contact made with patient: No, left message. Familia Pratt RN December 08, 2023 2:29 PM Familia Pratt RN 12/09/2023 3:29 PM Signed CDM Telephonic Outreach Provider Action/FYI CDM: COPD, CKD Pt underwent Left Knee replacement, received Physical Therapy and is steadily improving, Exercising with a recumbent bike for 5 minutes at a time Left Leg stasis ulcer wound is healing BP 124/60, Pulse Oximeter 96% Pt denies needs or concerns Contacted for: Routine Telephonic Outreach Contact made with patient: Yes Patient identified by name and date of . Discussed care with patient Are you experiencing any new or worsening symptoms you need to talk about today? Yes Based on picking supervisor, the following disposition is advised: No symptoms or symptoms present, not severe. Routed to: No Action Needed DESTINEY Education Provided this Outreach: No Familia Pratt RN December 09, 2023 3:18 PM Allergies As of Date: 12/08/2023 Noted Allergy Reaction LISINOPRIL 10/15/2014 3 - Cough Date Reviewed: 11/04/2023 Reviewed by: Anabella Steve LPN - Fully Assessed Reason for Visit: Community Monitoring Outreach [Other] Prescriptions as of 12/09/2023 - polyethylene glycol 3350 (MIRALAX) 17 gram/dose powder Take by mouth once daily. Dissolve dose in 4 - 8 ounces of liquid and take as directed. - Cholecalciferol, Vitamin D3, (VITAMIN D) 25 mcg (1,000 unit) cap Take 1,000 Units by mouth once daily. - tamsulosin (FLOMAX) 0.4 mg Take 2 capsules by mouth daily at bedtime. - finasteride (PROSCAR) 5 mg tablet Take 1 tablet by mouth once daily. - metoprolol tartrate [...] 40 mg by mouth once daily. Per [facility] decreased to once daily. - apixaban (ELIQUIS) 5 mg tab tab(s) Take 1 tablet by mouth twice daily. Problem List As Of Date 12/08/2023 Noted Resolved Elevated prostate specific antigen (PSA) [...] [E66.9] 04/13/2019 Positive colorectal cancer screening using [facility]*05/02/2020 03/22/2023 Aortic valve stenosis [I35.0] 11/26/2020 Nocturnal hypoxia [G47.34] 11/26/2020 Venous insufficiency of both lower extremities *04/28/2021 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 Obesity (BMI 35.0-39.9 without comorbidity) [E6*07/17/2021 Dependence on continuous supplemental oxygen [Z*08/22/2021 09/16/2021 Impaired fasting glucose [R73.01] 03/18/2022 Secondary pulmonary arterial hypertension (HCC)*03/18/2022 Stage 3a chronic kidney disease (HCC) [N18.31] 03/18/2022 NOAM (obstructive sleep apnea) cannot tolerate C*03/22/2023 Tremor of left hand [R25.1] 08/16/2023 Encounter Status:Closed by FAMILIA PRATT on 12/09/23[facility] Progress note Author Rigo Butler [facility] December 01, 2023 1:15pm Note Date/Time December 01, 2023 1:1 5pm [facility] [address] [place] [id number] Progress Note - Wound Care 12/01/23 1312 MR#: [id number] Acct: [id number] Name: JAVIER DEGROOT Rep #:[id number] : 1945 78 From: Rigo Valdovinos PM PCP: Dr. Tomy Hernandez MD Status:R EG RCR Location: History of Present Illness Date of Service: 12/01/23 Chief Complaint: Swelling, edema, chronic venous insufficiency, venous stasis dermatitis, and venous ulcerations -left lower extremity History of Wound: This is a 78-year-old male with multiple pre-existing medical problems. He presents with a long history of swelling and edema in his lower extremities bilaterally. He wears graduated compression stockings on a daily basis, which are of 15 to 20 mmHg compression. Nonetheless, approximately 1 month ago, noting swelling and edema in his left lower extremity, he subsequently developed blisters on the left pretibial surface, which have developed into a cluster of open ulcerations. He has been evaluated by his primary care physician and treated with a 10-day course of cephalexin. He was thought to have cellulitis. The patient is not very active. He has recently undergone left total knee replacement surgery in August 2023. He sits a greatdeal of each day. He sleeps in a recliner due to COPD and obstructive sleep apnea. He denies a history of thrombophlebitis. He is on chronic systemic anticoagulation with Eliquis, due to atrial fibrillation. His pre-existing medical problems are listed below, as are his prior surgical procedures. A venous duplex examination was performed on September 16, 2023, which was negative for thrombophlebitis in the left leg. Laboratory studies were last performed onSeptember 02, 2023, and have been reviewed. Subjective Subjective Mr. Degroot is a 78-year-old male presenting to clinic today for follow-up evaluation of full-thickness ulceration to the left leg. Patient has been compliant and left his multilayer compression bandage clean dry and intact. He admits to great improvement. He denies any trauma. Denies constitutional symptoms. Other pedal complaints at this time. Objective Data Objective Data Vital Signs: Vital Signs Temp Pulse Resp BP O2 Del Method 96.6 F L 72 18 156/75 H Room Air 12/01/23 11:04 12/01/23 11:04 12/01/23 11:04 12/01/23 11:04 12/01/23 11:04 Oxygen Delivery Method Room Air Weight: 108.862 kg Body Mass Index (BMI) 37.5 Physical Exam Narrative Vascular: DP and PT pulses are palpable to the bilateral lower extremity. +1 pitting edema appreciated bilateral lower extremity. Blanchable erythema is appreciated to the left lower extremity. Skin temperature great is warm to warmfrom proximal ankle to distal digits bilateral. Cap refill time is brisk. Neurological: Light touch and epicritic sensation is intact bilateral. Dermatological:Full-thickness ulceration to left anterior lower extremity is nowhealed. No sign of infection. Evidence of sanguinous drainage. No probe to bone. No sign of infection. Musculoskeletal: Muscle strength 5-5 in all quadrants bilateral. No pain on palpation to the heel full-thickness ulceration left anterior leg. No pain withcalf compression. Debridement Note Debridement Note Post-Debridement Measurements and Additional Note: Post-Debridement Measurements/Treatment WC - Nurse 1 - General Ulcer Assessment Start: 11/12/23 11:47 Freq: Status: Active Protocol: GET Activity Type Activity Date Activity User E-sign Co-sign Detail Recorded Client Recorded Date Recorded By Document 11/12/23 11:47 RB [id number] 11/12/23 11:51 RB Document 11/17/23 14:11 DL Desktop 11/17/23 14:20 DL Document 11/24/23 14:36 KW Desktop 11/24/23 14:37 KW Document 12/01/23 11:04 KW Desktop 12/01/23 11:08 KW 11/12/23 11/17/23 11/24/23 11:47 14:11 14:36 WC - Today's Visit Information Type of service Nurse-only Follow-up Visit Follow-up Visit Visit (Physician/ASSOCIATE PROFESSOR OF HISTORY (Physician/ASSOCIATE PROFESSOR OF HISTORY ) ) Arrival Mode Ambulatory Ambulatory Ambulatory Transfer Assistance None None Accompanied by Patient Identification Verified (Name & Yes Yes ) Patient Requires Transmission-Based No No Precautions Height and Weight Body Mass Index (BMI) 37.5 37.5 37.5 BMI Classification Obese Obese Obese Vital Signs Temperature (97.8 F-99.1 F) 98.1 F 97 F L Temperature Source Temporal Temporal Pulse Rate (60-100) 74 97 Pulse Location Monitor Monitor Respiratory Rate (12-18) 18 20 H 18 Respiratory rate source Observation Observation Observation Oxygen Delivery Method Room Air Blood Pressure (90/60-120/80) 147/60 H 162/74 H Blood Pressure Mean (mm Hg) 89 103 Source Monitor Monitor Position Semi-Fowlers Blood Pressure Location Left Arm History Since Last Visit- (Skip if this is Patient's initial visit) Have you changed medications since your No No No last visit? Any new allergies or adverse reactions No No No Had a fall/change in ADL's that may No No No increase risk of falls Signs or symptoms of abuse and/or No No No neglect since last visit Have you been in the hospital since your No No No last visit? Has dressing in place as prescribed Yes Yes Yes Has compression in place as prescribed Yes Yes Yes Has offloadiing in place as prescribed No N/A N/A Experienced any changes in pain level or No No No management Left Footwear Regular Shoe Right Footwear Regular Shoe Pain Scale: 0-10 Numeric Is Patient Pain Free? Yes Yes Yes 12/01/23 11:04 WC - Today's Visit Information Type of service Follow-up Visit (Physician/ASSOCIATE PROFESSOR OF HISTORY ) Arrival Mode Ambulatory Transfer Assistance Accompanied by Patient Identification Verified (Name & Yes ) Patient Requires Transmission-Based Precautions Height and Weight Body Mass Index (BMI) 37.5 BMI Classification Obese Vital Signs Temperature (97.8 F-99.1 F) 96.6 F L Temperature Source Temporal Pulse Rate (60-100) 72 Pulse Location Monitor Respiratory Rate (12-18) 18 Respiratory rate source Observation Oxygen Delivery Method Room Air Blood Pressure (90/60-120/80) 156/75 H Blood Pressure Mean (mm Hg) 102 Source Monitor Position Semi-Fowlers Blood Pressure Location Right Arm History Since Last Visit- (Skip if this is Patient's initial visit) Have you changed medications since your No last visit? Any new allergies or adverse reactions No Had a fall/change in ADL's that may No increase risk of falls Signs or symptoms of abuse and/or No neglect since last visit Have you been in the hospital since your No last visit? Has dressing in place as prescribed Yes Has compression in place as prescribed Yes Has offloadiing in place as prescribed N/A Experienced any changes in pain level or No management Left Footwear Regular Shoe Right Footwear Regular Shoe Pain Scale: 0-10 Numeric Is Patient Pain Free? Yes WC - Nurse 1 - General Ulcer Measurement Start: 11/12/23 11:47 Freq: Status: Active Protocol: Activity Type Activity Date Activity User E-sign Co-sign Detail Recorded Client Recorded Date Recorded By Document 11/12/23 11:47 RB [id number] 11/12/23 11:51 RB Document 11/17/23 14:11 DL Desktop 11/17/23 14:20 DL Document 11/24/23 14:36 KW Desktop 11/24/23 14:37 KW Document 12/01/23 11:04 KW Desktop 12/01/23 11:08 KW 11/12/23 11/17/23 11/24/23 11:47 14:11 14:36 Wound Center Nurse 1 #1 LLE ant -Combined with other wound No -Current Size (cm) - Length 7.8 0.1 -Current Size (cm) - Width 8.8 0.1 -Current Size (cm) - Depth 0.1 0.1 -Total Square Cm 68.64 0.01 -Photo Taken No -Exudate Amt Medium -Exudate Type Serosanguineous -Wound Margin Distinct, Outline Attached -Granulation Amt Large (67-100%) -Granulation Quality Red -Necrosis Amt Small (1-33%) -Necrotic Tissue Type Adherent Slough -Structure Exposed N/A -Texture (Anni-wound Skin Appearance) Scarring -Moisture (Anni-wound Skin Appearance) No Abnormality -Color (Anni-wound Skin Appearance) Hemosiderin Staining -Temperature (Anni-wound Skin No Abnormality Appearance) (Pt Warm) -Tenderness on Palpation (Anni-wound No Skin Appearance) -Ulcer Cleansing Soap and Water Soap and Water -Foul Odor after Cleansing No -Anesthetic Used 5% Lidocaine 5% Lidocaine Gel Gel -Wound Comment(s) SCABBED Lower Limb Edema Present Yes Left Calf (cm) 40 38.2 Left Ankle (cm) 23.2 23.3 12/01/23 11:04 Wound Center Nurse 1 #1 LLE ant -Combined with other wound -Current Size (cm) - Length 0.9 -Current Size (cm) - Width 0.3 -Current Size (cm) - Depth 0.1 -Total Square Cm 0.27 -Photo Taken -Exudate Amt -Exudate Type -Wound Margin -Granulation Amt -Granulation Quality -Necrosis Amt -Necrotic Tissue Type -Structure Exposed -Texture (Anni-wound Skin Appearance) Assessed -Moisture (Anni-wound Skin Appearance) Assessed -Color (Anni-wound Skin Appearance) Assessed -Temperature (Anni-wound Skin No Abnormality Appearance) (Pt Warm) -Tenderness on Palpation (Anni-wound Skin Appearance) -Ulcer Cleansing Soap and Water -Foul Odor after Cleansing -Anesthetic Used 5% Lidocaine Gel -Wound Comment(s) scabbed over Lower Limb Edema Present Left Calf (cm) 36.5 Left Ankle (cm) 22.3 - Nurse 2 - General Ulcer CM Notes Start: 11/12/23 11:47 Freq: Status: Active Protocol: Activity Type Activity Date Activity User E-sign Co-sign Detail Recorded Client Recorded Date Recorded By Document 11/17/23 14:39 Desktop 11/17/23 14:40 Document 11/24/23 14:35 [id number] 11/24/23 14:37 Document 12/01/23 11:15 Laptop 12/01/23 11:16 11/17/23 11/24/23 12/01/23 14:39 14:35 11:15 Wound Center Nurse 2 #1 LLE ant -Time 14:39 14:36 -Correct Patient Yes Yes No -Correct Side, Site, Position Yes Yes No -Correct Procedure Yes Yes No -Procedure Performed Yes Yes No -Type of Procedure Debridement Debridement -Clinical Debridement Subcutaneous Epidermis / Dermis -Tissue Removed Subcutaneous Epidermis, Dermis -Post Debridement (cm) - Length 6.5 0.1 0 -Post Debridement (cm) - Width 6 0.1 0 -Post Debridement (cm) - Depth 0.1 0.1 0 -Total Square (Post) (cm) 39.0 0.01 0 -Area of Debridement (cm) - Length 6.5 0.1 0 -Area of Debridement (cm) - Width 6.0 0.1 0 -Total Square (Area) (cm) 39.00 0.01 0 -Tunneling No No -Undermining/Tunneling No No -Circular Undermining No No -Wound/Ulcer Outcome Not Healed Not Healed Healed- Epithelialized -Ulcer Cleansing Rinsed/ Rinsed/ Irrigated with Irrigated with Saline Saline -Foul Odor after Cleansing No No -Bioengineered Tissue No No -Bleeding Controlled with Pressure NA -Treatment Response Procedure Procedure Tolerated Well Tolerated Well -Offloading No No -Debridement - Open, 1st 20sq cm Yes -Debridement - Subq, 1st 20sq cm Yes -Debridement, SubQ, ea addt'l 20sq cm 1 or part thereof Pain Scale: 0-10 Numeric Is Patient Pain Free? Yes Yes Yes WC - Nurse 3 - General Ulcer D/C NN Start: 11/12/23 11:47 Freq: Status: Active Protocol: Activity Type Activity Date Activity User E-sign Co-sign Detail Recorded Client Recorded Date Recorded By Document 11/12/23 11:51 RB [id number] 11/12/23 11:53 RB Document 11/17/23 14:53 BMF Desktop 11/17/23 14:54 BMF Document 11/24/23 14:36 KW Desktop 11/24/23 14:36 KW Document 12/01/23 11:16 Laptop 12/01/23 11:17 JF 11/12/23 11/17/23 11/24/23 11:51 14:53 14:36 Wound Care Center Nurse 3 #1 LLE ant -Ulcer Cleansing Wound Cleanser Rinsed/ Irrigated with Saline -Foul Odor after Cleansing No -Primary Dressing Applied Promogran C Hydrogel ($), NonAdherent NonAdherent Contact Layer Contact Layer -Other Dressing ABD -Primary Dressing Covered/Secured with Dry Gauze Dry Gauze -Promogran 1 Left -Multi-Layered Wrap Application Multi-Layer Multi-Layer Multi-Layer Comp - Left ($) Comp - Left ($) Comp - Left ($) -Stockings Treatment Response Procedure Procedure Tolerated Well Tolerated Well Pain Scale: 0-10 Numeric Is Patient Pain Free? Yes Yes Yes WC - Visit Discharge Discharge Condition Stable Stable Stable Ambulatory Status Ambulatory Ambulatory,Cane Ambulatory Transportation Private Auto Private Auto Private Auto Accompanied by Medication Reconcilliation completed & No No provided to patient/care provider Clinical Summary of Care Provided Yes Yes 12/01/23 11:16 Wound Care Center Nurse 3 #1 LLE ant -Ulcer Cleansing -Foul Odor after Cleansing -Primary Dressing Applied -Other Dressing -Primary Dressing Covered/Secured with -Promogran Left -Multi-Layered Wrap Application -Stockings Yes Treatment Response Pain Scale: 0-10 Numeric Is Patient Pain Free? Yes WC - Visit Discharge Discharge Condition Stable Ambulatory Status Ambulatory Transportation Private Auto Accompanied by Medication Reconcilliation completed & Yes provided to patient/care provider Clinical Summary of Care Provided Yes Assessment/Plan Assessment/Plan (1) 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 breakdown of skin: CODE(S): L97.321 - 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 breakdown of skin PLAN: Patient was examined and evaluated. All findings were discussed with the patient. All questions were answered to the patient's satisfaction. The patient's full-thickness ulceration to left lower extremity leg is now healed. Patient will be placed in his compression stockings that he brought with him today. He was educated the patient that if he has any breakdown of skin he is to follow-up with Dr. Butler in his private office. Patient showed understanding of this will follow-up as needed. (2) Other specified peripheral vascular diseases: CODE(S): I73.89 - Other specified peripheral vascular diseases 12/01/23 1315 <Electronically signed by Rigo Butler DPM> Cosigner Signature (if applicable): CC: ~ Signed [facility] Work Phone: [phone]) 443-218603-13-2024 Progress note Author Rigo Butler [facility] November 24, 2023 2:38pm Note Date/Time November 24, 2023 2:3 8pm [facility] [address] [place] [address] Progress Note - Wound Care 11/24/23 1435 MR#: [id number] Acct: [id number] Name: JAVIER DEGROOT Rep #:[id number] : 1945 78 From: Rigo Valdovinos PM PCP: Dr. Tomy Hernandez MD Status:R EG RCR Location: History of Present Illness Date of Service: 11/24/23 Chief Complaint: Swelling, edema, chronic venous insufficiency, venous stasis dermatitis, and venous ulcerations -left lower extremity History of Wound: This is a 78-year-old male with multiple pre-existing medical problems. He presents with a long history of swelling and edema in his lower extremities bilaterally. He wears graduated compression stockings on a daily basis, which are of 15 to 20 mmHg compression. Nonetheless, approximately 1 month ago, noting swelling and edema in his left lower extremity, he subsequently developed blisters on the left pretibial surface, which have developed into a cluster of open ulcerations. He has been evaluated by his primary care physician and treated with a 10-day course of cephalexin. He was thought to have cellulitis. The patient is not very active. He has recently undergone left total knee replacement surgery in August 2023. He sits a greatdeal of each day. He sleeps in a recliner due to COPD and obstructive sleep apnea. He denies a history of thrombophlebitis. He is on chronic systemic anticoagulation with Eliquis, due to atrial fibrillation. His pre-existing medical problems are listed below, as are his prior surgical procedures. A venous duplex examination was performed on September 16, 2023, which was negative for thrombophlebitis in the left leg. Laboratory studies were last performed onSeptember 02, 2023, and have been reviewed. Subjective Subjective Mr. Degroot is a 78-year-old male presenting to clinic today for follow-up evaluation of full-thickness ulceration to the left leg. Patient has been compliant and left his multilayer compression bandage clean dry and intact. He admits to great improvement. He denies any trauma. Denies constitutional symptoms. Other pedal complaints at this time. Objective Data Objective Data Vital Signs: Vital Signs Temp Pulse Resp BP 97 F L 97 20 H 162/74 H 11/17/23 14:11 11/17/23 14:11 11/17/23 14:11 11/17/23 14:11 Weight: 108.862 kg Body Mass Index (BMI) 37.5 Physical Exam Narrative ascular: DP and PT pulses are palpable to the bilateral lower extremity. +1 pitting edema appreciated bilateral lower extremity. Blanchable erythema is appreciated to the left lower extremity. Skin temperature great is warm to warmfrom proximal ankle to distal digits bilateral. Cap refill time is brisk. Neurological: Light touch and epicritic sensation is intact bilateral. Dermatological:Full-thickness ulceration to left anterior lower extremity. Ulceration measures 0.1 x 0.1 x 0.1 cm. Wound base is 100% granular nature. Nosign of infection. Evidence of sanguinous drainage. No probe to bone. No signof infection. Excisional debridement down to including dermis with a number 5 mm dermal curette to the full-thickness ulceration to the left anterior lower extremity. Predebridement measurement callus. Postdebridement measurement is 0.1 x 0.1 x 0.1 cm. Musculoskeletal: Muscle strength 5-5 in all quadrants bilateral. No pain to palpation to full-thickness ulceration to left anterior leg. No pain with calf compression. Debridement Note Debridement Note Debridement Free Text: Excisional debridement down to including dermis with a number 5 mm dermal curette to the full-thickness ulceration to the left anteriorlower extremity. Predebridement measurement callus. Postdebridement measurement is 0.1 x 0.1 x 0.1 cm. Post-Debridement Measurements and Additional Note: Post-Debridement Measurements/Treatment NÉSTOR - Nurse 1 - General Ulcer Assessment Start: 11/12/23 11:47 Freq: Status: Active Protocol: GET Activity Type Activity Date Activity User E-sign Co-sign Detail Recorded Client Recorded Date Recorded By Document 11/12/23 11:47 RB [id number] 11/12/23 11:51 RB Document 11/17/23 14:11 DL Desktop 11/17/23 14:20 DL 11/12/23 11/17/23 11:47 14:11 - Today's Visit Information Type of service Nurse-only Follow-up Visit Visit (Physician/ASSOCIATE PROFESSOR OF HISTORY ) Arrival Mode Ambulatory Ambulatory Transfer Assistance None None Patient Identification Verified (Name & Yes Yes ) Patient Requires Transmission-Based No No Precautions Height and Weight Body Mass Index (BMI) 37.5 37.5 BMI Classification Obese Obese Vital Signs Temperature (97.8 F-99.1 F) 98.1 F 97 F L Temperature Source Temporal Temporal Pulse Rate (60-100) 74 97 Pulse Location Monitor Monitor Respiratory Rate (12-18) 18 20 H Respiratory rate source Observation Observation Blood Pressure (90/60-120/80) 147/60 H 162/74 H Blood Pressure Mean (mm Hg) 89 103 Source Monitor Monitor Position Semi-Fowlers Blood Pressure Location Left Arm History Since Last Visit- (Skip if this is Patient's initial visit) Have you changed medications since your No No last visit? Any new allergies or adverse reactions No No Had a fall/change in ADL's that may No No increase risk of falls Signs or symptoms of abuse and/or No No neglect since last visit Have you been in the hospital since your No No last visit? Has dressing in place as prescribed Yes Yes Has compression in place as prescribed Yes Yes Has offloadiing in place as prescribed No N/A Experienced any changes in pain level or No No management Pain Scale: 0-10 Numeric Is Patient Pain Free? Yes Yes - Nurse 1 - General Ulcer Measurement Start: 11/12/23 11:47 Freq: Status: Active Protocol: Activity Type Activity Date Activity User E-sign Co-sign Detail Recorded Client Recorded Date Recorded By Document 11/12/23 11:47 RB [id number] 11/12/23 11:51 RB Document 11/17/23 14:11 DL Desktop 11/17/23 14:20 DL 11/12/23 11/17/23 11:47 14:11 Wound Center Nurse 1 #1 LLE ant -Combined with other wound No -Current Size (cm) - Length 7.8 -Current Size (cm) - Width 8.8 -Current Size (cm) - Depth 0.1 -Total Square Cm 68.64 -Photo Taken No -Exudate Amt Medium -Exudate Type Serosanguineous -Wound Margin Distinct, Outline Attached -Granulation Amt Large (67-100%) -Granulation Quality Red -Necrosis Amt Small (1-33%) -Necrotic Tissue Type Adherent Slough -Structure Exposed N/A -Texture (Anni-wound Skin Appearance) Scarring -Moisture (Anni-wound Skin Appearance) No Abnormality -Color (Anni-wound Skin Appearance) Hemosiderin Staining -Temperature (Anni-wound Skin No Abnormality Appearance) (Pt Warm) -Tenderness on Palpation (Anni-wound No Skin Appearance) -Ulcer Cleansing Soap and Water -Foul Odor after Cleansing No -Anesthetic Used 5% Lidocaine Gel Lower Limb Edema Present Yes Left Calf (cm) 40 38.2 Left Ankle (cm) 23.2 23.3 WC - Nurse 2 - General Ulcer CM Notes Start: 11/12/23 11:47 Freq: Status: Active Protocol: Activity Type Activity Date Activity User E-sign Co-sign Detail Recorded Client Recorded Date Recorded By Document 11/17/23 14:39 Desktop 11/17/23 14:40 11/17/23 14:39 Wound Center Nurse 2 #1 LLE ant -Time 14:39 -Correct Patient Yes -Correct Side, Site, Position Yes -Correct Procedure Yes -Procedure Performed Yes -Type of Procedure Debridement -Clinical Debridement Subcutaneous -Tissue Removed Subcutaneous -Post Debridement (cm) - Length 6.5 -Post Debridement (cm) - Width 6 -Post Debridement (cm) - Depth 0.1 -Total Square (Post) (cm) 39.0 -Area of Debridement (cm) - Length 6.5 -Area of Debridement (cm) - Width 6.0 -Total Square (Area) (cm) 39.00 -Tunneling No -Undermining/Tunneling No -Circular Undermining No -Wound/Ulcer Outcome Not Healed -Ulcer Cleansing Rinsed/ Irrigated with Saline -Foul Odor after Cleansing No -Bioengineered Tissue No -Bleeding Controlled with Pressure -Treatment Response Procedure Tolerated Well -Offloading No -Debridement - Subq, 1st 20sq cm Yes -Debridement, SubQ, ea addt'l 20sq cm 1 or part thereof Pain Scale: 0-10 Numeric Is Patient Pain Free? Yes WC - Nurse 3 - General Ulcer D/C NN Start: 11/12/23 11:47 Freq: Status: Active Protocol: Activity Type Activity Date Activity User E-sign Co-sign Detail Recorded Client Recorded Date Recorded By Document 11/12/23 11:51 RB [id number] 11/12/23 11:53 RB Document 11/17/23 14:53 BM Desktop 11/17/23 14:54 [facility] 11/12/23 11/17/23 11:51 14:53 Wound Care Center Nurse 3 #1 LLE ant -Ulcer Cleansing Wound Cleanser Rinsed/ Irrigated with Saline -Foul Odor after Cleansing No -Primary Dressing Applied Promogran C Hydrogel ($), NonAdherent Contact Layer -Other Dressing ABD -Primary Dressing Covered/Secured with Dry Gauze -Promogran 1 Left -Multi-Layered Wrap Application Multi-Layer Multi-Layer Comp - Left ($) Comp - Left ($) Treatment Response Procedure Procedure Tolerated Well Tolerated Well Pain Scale: 0-10 Numeric Is Patient Pain Free? Yes Yes WC - Visit Discharge Discharge Condition Stable Stable Ambulatory Status Ambulatory Ambulatory,Cane Transportation Private Auto Private Auto Accompanied by Medication Reconcilliation completed & No provided to patient/care provider Clinical Summary of Care Provided Yes Assessment/Plan Assessment/Plan (1) 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 breakdown of skin: CODE(S): L97.321 - 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 breakdown of skin PLAN: Patient was examined and evaluated. All findings were discussed with the patient. All questions were answered to the patient's satisfaction. Excisional debridement down to including dermis with a number 5 mm dermal curette to the full-thickness ulceration to the left anterior lower extremity. Predebridement measurement callus. Postdebridement measurement is 0.1 x 0.1 x 0.1 cm. Left lower extremity was wiped clean and patted dry. Adaptic was applied over the partial-thickness wound. The patient was placed in 3M wrap. He will leave it clean dry and intact. Follow-up at the wound care center with Dr. Butler in 1 week. (2) Venous ulcer of left leg: CODE(S): I83.029 - Varicose veins of left lower extremity with ulcer of unspecified site; L97.929 - Non-pressure chronic ulcer of unspecified part of left lower leg with unspecified severity (3) Other specified peripheral vascular diseases: CODE(S): I73.89 - Other specified peripheral vascular diseases 11/24/23 1438 <Electronically signed by Rigo Butler DPM> Cosigner Signature (if applicable): CC: ~ Signed [facility] Work Phone: [phone]) 229-383803-06-2024 Progress note Author Rigo Butler [facility] November 17, 2023 4:29pm Note Date/Time November 17, 2023 4:30 pm [facility] [address] [place] [address] Progress Note - Wound Care 11/17/23 1625 MR#: [id number] Acct: [id number] Name: JAVIER DEGROOT Rep #:[id number] : 1945 78 From: Rigo Butler D PM PCP: Dr. Tomy Hernandez MD Status:R RCR Location: History of Present Illness Date of Service: 11/17/23 Chief Complaint: Swelling, edema, chronic venous insufficiency, venous stasis dermatitis, and venous ulcerations -left lower extremity History of Wound: This is a 78-year-old male with multiple pre-existing medical problems. He presents with a long history of swelling and edema in his lower extremities bilaterally. He wears graduated compression stockings on a daily basis, which are of 15 to 20 mmHg compression. Nonetheless, approximately 1 month ago, noting swelling and edema in his left lower extremity, he subsequently developed blisters on the left pretibial surface, which have developed into a cluster of open ulcerations. He has been evaluated by his primary care physician and treated with a 10-day course of cephalexin. He was thought to have cellulitis. The patient is not very active. He has recently undergone left total knee replacement surgery in August 2023. He sits a greatdeal of each day. He sleeps in a recliner due to COPD and obstructive sleep apnea. He denies a history of thrombophlebitis. He is on chronic systemic anticoagulation with Eliquis, due to atrial fibrillation. His pre-existing medical problems are listed below, as are his prior surgical procedures. A venous duplex examination was performed on September 16, 2023, which was negative for thrombophlebitis in the left leg. Laboratory studies were last performed onSeptember 02, 2023, and have been reviewed. Subjective Subjective Mr. Degroot is a 78-year-old male seen at the wound care center today at [facility] follow-up evaluation of bilateral leg swelling and full-thickness ulcerations bilateral extremity. Patient was seen by an outside provider who is doing compression wraps and debridements. Patient states that the wounds are improving. Patient is not diabetic. Denies trauma. Denies constitutional symptoms. No other pedal complaints at this time. Objective Data Objective Data Vital Signs: Vital Signs Temp Pulse Resp BP 97 F L 97 20 H 162/74 H 11/17/23 14:11 11/17/23 14:11 11/17/23 14:11 11/17/23 14:11 Weight: 108.862 kg Body Mass Index (BMI) 37.5 Physical Exam Narrative Vascular: DP and PT pulses are palpable to the bilateral lower extremity. +1 pitting edema appreciated bilateral lower extremity. Blanchable erythema is appreciated to the left lower extremity. Skin temperature great is warm to warmfrom proximal ankle to distal digits bilateral. Cap refill time is brisk. Neurological: Light touch and epicritic sensation is intact bilateral. Dermatological:Full-thickness ulceration to left anterior lower extremity. Ulceration measures 6.5 x 6.0 x 0.1 cm. Wound base is 100% granular nature. Nosign of infection. Evidence of sanguinous drainage. No probe to bone. No signof infection. Excisional debridement down to including subcutaneous tissue with a number 5 mm dermal curette to the full-thickness ulceration to the left anterior lower extremity. Predebridement measurement 6.0 x 5.7 x 0.1 cm. Postdebridement measurement is 6.5 x 6.0 x 0.1 cm. Musculoskeletal: Muscle strength 5-5 in all quadrants bilateral. No pain to palpation to full-thickness ulceration to left anterior leg. No pain with calf compression. Debridement Note Debridement Note Debridement Free Text: Excisional debridement down to including subcutaneous tissue with a number 5 mm dermal curette to the full-thickness ulceration to theleft anterior lower extremity. Predebridement measurement 6.0 x 5.7 x 0.1 cm. Postdebridement measurement is 6.5 x 6.0 x 0.1 cm. 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 PROFESSOR OF HISTORY ) Arrival Mode Ambulatory Ambulatory Transfer Assistance None None Patient Identification Verified (Name & Yes Yes ) Patient Requires Transmission-Based No No Precautions Height and Weight Body Mass Index (BMI) 37.5 37.5 BMI Classification Obese Obese Vital Signs Temperature (97.8 F-99.1 F) 98.1 F 97 F L Temperature Source Temporal Temporal Pulse Rate (60-100) 74 97 Pulse Location Monitor Monitor Respiratory Rate (12-18) 18 20 H Respiratory rate source Observation Observation Blood Pressure (90/60-120/80) 147/60 H 162/74 H Blood Pressure Mean (mm Hg) 89 103 Source Monitor Monitor Position Semi-Fowlers Blood Pressure Location Left Arm History Since Last Visit- (Skip if this is Patient's initial visit) Have you changed medications since your No No last visit? Any new allergies or adverse reactions No No Had a fall/change in ADL's that may No No increase risk of falls Signs or symptoms of abuse and/or No No neglect since last visit Have you been in the hospital since your No No last visit? Has dressing in place as prescribed Yes Yes Has compression in place as prescribed Yes Yes Has offloadiing in place as prescribed No N/A Experienced any changes in pain level or No No management Pain Scale: 0-10 Numeric Is Patient Pain Free? Yes Yes - Nurse 1 - General Ulcer Measurement Start: 11/12/23 11:47 Freq: Status: Active Protocol: Activity Type Activity Date Activity User E-sign Co-sign Detail Recorded Client Recorded Date Recorded By Document 11/12/23 11:47 RB [id number] 11/12/23 11:51 RB Document 11/17/23 14:11 DL Desktop 11/17/23 14:20 DL 11/12/23 11/17/23 11:47 14:11 Wound Center Nurse 1 #1 LLE ant -Combined with other wound No -Current Size (cm) - Length 7.8 -Current Size (cm) - Width 8.8 -Current Size (cm) - Depth 0.1 -Total Square Cm 68.64 -Photo Taken No -Exudate Amt Medium -Exudate Type Serosanguineous -Wound Margin Distinct, Outline Attached -Granulation Amt Large (67-100%) -Granulation Quality Red -Necrosis Amt Small (1-33%) -Necrotic Tissue Type Adherent Slough -Structure Exposed N/A -Texture (Anni-wound Skin Appearance) Scarring -Moisture (Anni-wound Skin Appearance) No Abnormality -Color (Anni-wound Skin Appearance) Hemosiderin Staining -Temperature (Anni-wound Skin No Abnormality Appearance) (Pt Warm) -Tenderness on Palpation (Anni-wound No Skin Appearance) -Ulcer Cleansing Soap and Water -Foul Odor after Cleansing No -Anesthetic Used 5% Lidocaine Gel Lower Limb Edema Present Yes Left Calf (cm) 40 38.2 Left Ankle (cm) 23.2 23.3 WC - Nurse 2 - General Ulcer CM Notes Start: 11/12/23 11:47 Freq: Status: Active Protocol: Activity Type Activity Date Activity User E-sign Co-sign Detail Recorded Client Recorded Date Recorded By Document 11/17/23 14:39 Desktop 11/17/23 14:40 11/17/23 14:39 Wound Center Nurse 2 #1 LLE ant -Time 14:39 -Correct Patient Yes -Correct Side, Site, Position Yes -Correct Procedure Yes -Procedure Performed Yes -Type of Procedure Debridement -Clinical Debridement Subcutaneous -Tissue Removed Subcutaneous -Post Debridement (cm) - Length 6.5 -Post Debridement (cm) - Width 6 -Post Debridement (cm) - Depth 0.1 -Total Square (Post) (cm) 39.0 -Area of Debridement (cm) - Length 6.5 -Area of Debridement (cm) - Width 6.0 -Total Square (Area) (cm) 39.00 -Tunneling No -Undermining/Tunneling No -Circular Undermining No -Wound/Ulcer Outcome Not Healed -Ulcer Cleansing Rinsed/ Irrigated with Saline -Foul Odor after Cleansing No -Bioengineered Tissue No -Bleeding Controlled with Pressure -Treatment Response Procedure Tolerated Well -Offloading No -Debridement - Subq, 1st 20sq cm Yes -Debridement, SubQ, ea addt'l 20sq cm 1 or part thereof Pain Scale: 0-10 Numeric Is Patient Pain Free? Yes - Nurse 3 - General Ulcer D/C NN Start: 11/12/23 11:47 Freq: Status: Active Protocol: Activity Type Activity Date Activity User E-sign Co-sign Detail Recorded Client Recorded Date Recorded By Document 11/12/23 11:51 RB [id number] 11/12/23 11:53 RB Document 11/17/23 14:53 [facility] Desktop 11/17/23 14:54 [facility] 11/12/23 11/17/23 11:51 14:53 Wound Care Center Nurse 3 #1 LLE ant -Ulcer Cleansing Wound Cleanser Rinsed/ Irrigated with Saline -Foul Odor after Cleansing No -Primary Dressing Applied Promogran C Hydrogel ($), NonAdherent Contact Layer -Other Dressing ABD -Primary Dressing Covered/Secured with Dry Gauze -Promogran 1 Left -Multi-Layered Wrap Application Multi-Layer Multi-Layer Comp - Left ($) Comp - Left ($) Treatment Response Procedure Procedure Tolerated Well Tolerated Well Pain Scale: 0-10 Numeric Is Patient Pain Free? Yes Yes - Visit Discharge Discharge Condition Stable Stable Ambulatory Status Ambulatory Ambulatory,Cane Transportation Private Auto Private Auto Accompanied by Medication Reconcilliation completed & No provided to patient/care provider Clinical Summary of Care Provided Yes Assessment/Plan Assessment/Plan (1) Non-pressure chronic ulcer of other part of left lower leg with fat layer exposed: CODE(S): L97.822 - Non-pressure chronic ulcer of other part of left lower leg with fat layer exposed PLAN: Patient was examined and evaluated. All findings were discussed with the patient. All questions were answered to the patient's satisfaction. Excisional debridement down to including subcutaneous tissue with a number 5 mm dermal curette to the full-thickness ulceration to the left anterior lower extremity. Predebridement measurement 6.0 x 5.7 x 0.1 cm. Postdebridement measurement is 6.5 x 6.0 x 0.1 cm. The ulceration was dressed with Adaptic and hydrogel followed by dry sterile dressing and single-layer Tubigrip. Will begin authorization for amniotic skin graft substitute. We believe that the skin graft substitute will aid in the rapid healing of the patient's full-thickness ulceration to the left lower extremity. Patient educated on its use. Follow-up at the wound care center with Dr. Butler in 1 week. (2) Other specified peripheral vascular diseases: CODE(S): I73.89 - Other specified peripheral vascular diseases 11/17/23 1629 <Electronically signed by Rigo Butler DPM> Cosigner Signature (if applicable): CC: ~ Signed [facility] Work Phone: 1(756) 211-324202-26-2024 History and physical note Author Johnathan Colin [facility] November 08, 2023 2:00pm Note Date/Time November 08, 2023 2:00pm [facility] [address] [place] [address] H&P Exam - Wound Care 11/08/23 1343 MR#: [id number] Acct: [id number] Name: JAVIER DEGROOT Rep #:[id number] : 1945 78 From: Johnathan Valdovinos PCP: Dr. Tomy Hernandez MD Status:R EG RCR Location: History of Present Illness Date of Service: 11/08/23 Chief Complaint: Swelling, edema, chronic venous insufficiency, venous stasis dermatitis, and venous ulcerations -left lower extremity History of Wound: This is a 78-year-old male with multiple pre-existing medical problems. He presents with a long history of swelling and edema in his lower extremities bilaterally. He wears graduated compression stockings on a daily basis, which are of 15 to 20 mmHg compression. Nonetheless, approximately 1 month ago, noting swelling and edema in his left lower extremity, he subsequently developed blisters on the left pretibial surface, which have developed into a cluster of open ulcerations. He has been evaluated by his primary care physician and treated with a 10-day course of cephalexin. He was thought to have cellulitis. The patient is not very active. He has recently undergone left total knee replacement surgery in August 2023. He sits a greatdeal of each day. He sleeps in a recliner due to COPD and obstructive sleep apnea. He denies a history of thrombophlebitis. He is on chronic systemic anticoagulation with Eliquis, due to atrial fibrillation. His pre-existing medical problems are listed below, as are his prior surgical procedures. A venous duplex examination was performed on September 16, 2023, which was negative for thrombophlebitis in the left leg. Laboratory studies were last performed onSeptember 02, 2023, and have been reviewed. [facility] Medical History Alcohol use Arthritis Atherosclerotic heart disease of [place] coronary artery without angina pectoris Atrial fibrillation Bilateral pulmonary embolism BPH (benign prostatic hyperplasia) Cardiology follow-up encounter Chronic venous insufficiency COPD (chronic obstructive pulmonary disease) Carcamo phlebectatica paraplantaris COVID-19 (~09/2020) Dietary restriction Dyspnea on exertion 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 Former smoker High cholesterol History of atrial fibrillation History of CHF (congestive heart failure) History of COVID-19 History of echocardiogram History of edema History of left heart catheterization (LHC) (~05/06/21) History of pain when walking History of pulmonary embolism History of stress test History of TIA (transient ischemic attack) History of transcatheter aortic valve replacement (TAVR) (~07/10/21) Hyperlipidemia Hypertension Left leg swelling Left-sided weakness Leg edema, left Non-rheumatic mitral valve stenosis Nonrheumatic aortic (valve) stenosis Nonrheumatic tricuspid (valve) insufficiency Obesity (BMI 30-39.9) On home oxygen therapy NOAM (obstructive sleep apnea) Other secondary pulmonary hypertension Persistent atrial fibrillation Prostate disease Pulmonary embolism Solitary pulmonary nodule Stage 1 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 TIA (transient ischemic attack) Venous stasis dermatitis Venous ulcer of left leg Wears dentures Wears glasses Wears hearing aid Home Medications finasteride 5 mg tablet 5 mg PO DAILY prostate 09/24/15 [History Last Taken 09/01/23] tamsulosin 0.4 mg capsule (Flomax) 0.8 mg PO QHS prostate 02/28/18 [History Last Taken 08/31/23] Disability Placard #1 ea 01/01/21 [Rx Last Taken Unknown] aspirin 81 mg capsule 81 mg PO DAILY 05/06/21 [History Last Taken 08/28/23] inulin 2,500 mg-vitamin D3 500 unit chewable tablet (Fiber Gummies with Vitamin D3) 2 tab PO DAILY 08/12/23 [History Last Taken 08/31/23] polyethylene glycol 3350 17 gram/dose oral powder (Miralax) 17 g PO DAILY 08/12/23 [History Last Taken 08/31/23] atorvastatin 10 mg tablet 10 mg PO QDAY #90 tabs 08/27/23 [Rx Last Taken 08/31/23] diltiazem HCl 120 mg tablet 120 mg PO BID 90 days #180 tabs 08/27/23 [Rx Last Taken 09/01/23] furosemide 40 mg tablet 40 mg PO DAILY fluid #90 tabs 08/27/23 [Rx Last Taken 08/31/23] metoprolol tartrate 75 mg tablet 75 mg PO BID #180 tabs 08/27/23 [Rx Last Taken 09/01/23] potassium chloride 20 mEq tablet,extended release(part/cryst) (Klor-Con M) 20 meq PO DAILY #90 tabs 08/27/23 [Rx Last Taken 08/31/23] acetaminophen 500 mg tablet 1,000 mg (2 x 500 mg) PO TID 14 days #84 tabs 09/02/23 [Rx Last Taken Unknown] oxycodone 5 mg tablet 5 - 10 mg (1 - 2 x 5 mg) PO Q4H PRN PRN Pain Score 4-10 5 days #42 tabs 09/02/23 [Rx Last Taken Unknown] sennosides 8.6 mg-docusate sodium 50 mg tablet (Stool Softener-Stimulant Laxative) 2 tab PO BID 3 days #0 tabs 09/02/23 [Rx Last Taken Unknown] apixaban 5 mg tablet 5 mg PO BID blood thinner #60 tabs 11/01/23 [Rx Last Taken Unknown] Allergy/AdvReac Type Severity Reaction Status Date / Time lisinopril AdvReac Intermediate cough Verified 09/01/23 07:09 Family History Mother CVA (cerebral vascular accident) Diabetes Other Family history of CVA Surgical History H/O oral surgery History of colonoscopy (~2010) History of heart surgery History of left cataract surgery Social History Smoking Status: Former smoker Tobacco: How many years used: 40 how long ago did patient quit smokin second hand exposure: No alcohol intake: never substance use type: does not use caffeine: Yes Type: tea what type of physical activity do you participate in: none seatbelt use: always do you feel safe at home: Yes Vital Signs Vital Signs Vital Signs: 11/08/23 13:11 Temperature 97.8 F Temperature Source Temporal Pulse Rate 90 Respiratory Rate 18 Blood Pressure 159/77 H Blood Pressure Mean 104 Weight Weight: 240 lb Body Mass Index (BMI) 37.5 Physical Exam Const alert, oriented x3, no apparent distress and well nourished Constitutional Narrative: The patient is obese. His BMI is 38. General Appearance: cooperative, comfortable, well kempt and well developed Orientation / Consciousness: awake, oriented to person, oriented to place and oriented to time Exam Limitations: no limitations Nutritional Appearance: overweight HEENT normocephalic and head/scalp atraumatic Head and Scalp: normal to inspection, normocephalic and atraumatic Face and Sinus: normal facial exam Nose: external nose normal External Ear: external ears normal Eyes PERRL and EOMs intact bilaterally General Eye: normal appearance of both eyes Neck full ROM Resp normal respiratory effort, normal air movement, no retractions and no use of accessory muscles Effort and Inspection: able to speak in complete sentences Extremity no calf tenderness General Extremity: Negative for clubbing or cyanosis Skin Wound Narrative: Mild swelling and edema are noted in the patient's left lower extremity. Coronaphlebectatica is noted near the medial malleoli bilaterally. A large cluster ofulcerations are noted on the patient's left pretibial surface. There is a moderate amount of bioburden. Dimensions are documented elsewhere. There is noobvious sign of infection or cellulitis. Neuro oriented x3, CN's II-XII intact bilaterally, moves all extremities and no focal motor deficits Sensorium / Orientation: awake, alert, oriented to person, oriented to place andoriented to time Psych Appearance: grossly normal and appropriate Attitude: calm Activity / Motor Behavior: appropriate eye contact Speech: normal speech Mood & Affect: euthymic mood Thought Process: normal thought process Thought Content: normal thought content Attention / Concentration: attention grossly intact Debridement Note Debridement Note Wound debrided: Clustered ulcerations-left pretibial surface Laterality: Left Type of Debridement: Excisional debridement Anesthesia Used: 5% Lidocaine Gel Depth: Down to and including healthy tissue and in the subcutaneous layer Percentage of wound debrided: 100 Instrument Used: 5mm curette Severity: Fat Layer Exposed Amount of bleeding with debridement: Mild Bleeding Controlled with: Compression and gauze Patient tolerated procedure: Patient tolerated procedure well Post-Debridement Measurements and Additional Note: Post-Debridement Measurements/Treatment NÉSTOR - Nurse 1 - General Ulcer Assessment Start: 11/08/23 13:11 Freq: Status: Active Protocol: GET Activity Type Activity Date Activity User E-sign Co-sign Detail Recorded Client Recorded Date Recorded By Document 11/08/23 13:11 PL Tablet 11/08/23 13:22 PL 11/08/23 13:11 NÉSTOR - Today's Visit Information Type of service Initial Visit Arrival Mode Ambulatory Transfer Assistance None Patient Identification Verified (Name & Yes ) Patient Requires Transmission-Based No Precautions Safety Precautions NA Height and Weight Height 5 ft 7 in Weight 240 lb Weight in Pounds 240.0 lbs Body Mass Index (BMI) 37.5 BMI Classification Obese BSA - Francisco 2.18 Vital Signs Temperature (97.8 F-99.1 F) 97.8 F Temperature Source Temporal Pulse Rate (60-100) 90 Respiratory Rate (12-18) 18 Blood Pressure (90/60-120/80) 159/77 H Blood Pressure Mean 104 History Since Last Visit- (Skip if this is Patient's initial visit) Have you changed medications since your No last visit? Any new allergies or adverse reactions No Had a fall/change in ADL's that may No increase risk of falls Signs or symptoms of abuse and/or No neglect since last visit Have you been in the hospital since your No last visit? Has dressing in place as prescribed Yes Has compression in place as prescribed Yes Has offloadiing in place as prescribed N/A Experienced any changes in pain level or No management Pain Scale: 0-10 Numeric Is Patient Pain Free? Yes NÉSTOR - Nurse 1 - General Ulcer Measurement Start: 11/08/23 13:11 Freq: Status: Active Protocol: Activity Type Activity Date Activity User E-sign Co-sign Detail Recorded Client Recorded Date Recorded By Document 11/08/23 13:11 PL Tablet 11/08/23 13:22 PL 11/08/23 13:11 Wound Center Nurse 1 #1 LLE ant -Current Size (cm) - Length 8.5 -Current Size (cm) - Width 9.5 -Current Size (cm) - Depth 0.1 -Total Square Cm 80.75 -Epithelialization Small 1-33% -Tunneling No -Undermining/Tunneling No -Circular Undermining No -Classification - Thickness Full Thickness without Exposed Support Structure -Exudate Amt Medium -Exudate Type Serosanguineous -Granulation Amt Medium (34-66%) -Granulation Quality Pale,[place] -Slough/Fibrin Yes -Necrosis Amt Medium (34-66%) -Necrotic Tissue Type Adherent Slough -Ulcer Cleansing Soap and Water -Anesthetic Used 5% Lidocaine Gel Assessment/Plan Assessment/Plan (1) Venous ulcer of left leg: CODE(S): I83.029 - Varicose veins of left lower extremity with ulcer of unspecified site; L97.929 - Non-pressure chronic ulcer of unspecified part of left lower leg with unspecified severity (2) Venous stasis dermatitis: CODE(S): I87.2 - Venous insufficiency (chronic) (peripheral) (3) Left leg swelling: CODE(S): M79.89 - Other specified soft tissue disorders (4) Leg edema, left: CODE(S): R60.0 - Localized edema (5) Chronic venous insufficiency: CODE(S): I87.2 - Venous insufficiency (chronic) (peripheral) (6) Carcamo phlebectatica paraplantaris: CODE(S): R09.89 - Other specified symptoms and signs involving the circulatory and respiratory systems (7) Status post total left knee replacement: CODE(S): Z96.652 - Presence of left artificial knee joint (8) Hx of adenomatous colonic polyps: CODE(S): Z86.010 - Personal history of colonic polyps (9) Anticoagulant long-term use: 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 (10) Osteoarthritis of left knee: CODE(S): M17.12 - Unilateral primary osteoarthritis, left knee (11) Atrial fibrillation with RVR: CODE(S): I48.91 - Unspecified atrial fibrillation (12) History of TIA (transient ischemic attack): CODE(S): Z86.73 - Personal history of transient ischemic attack (TIA), andcerebral infarction without residual deficits (13) PAH (pulmonary artery hypertension): CODE(S): I27.21 - Secondary pulmonary arterial hypertension (14) Emphysema with chronic bronchitis: CODE(S): J44.9 - Chronic obstructive pulmonary disease, unspecified (15) History of transcatheter aortic valve replacement (TAVR): CODE(S): Z95.2 - Presence of prosthetic heart valve (16) Atherosclerotic heart disease of [place] coronary artery without angina pectoris: CODE(S): I25.10 - Atherosclerotic heart disease of [place] coronary artery without angina pectoris (17) Dyspnea on exertion: CODE(S): R06.00 - Dyspnea, unspecified (18) Non-rheumatic mitral valve stenosis: CODE(S): I34.2 - Nonrheumatic mitral (valve) stenosis (19) BPH (benign prostatic hyperplasia): CODE(S): N40.0 - Benign prostatic hyperplasia without lower urinary tract symptoms (20) History of left cataract surgery: CODE(S): Z98.42 - Cataract extraction status, left eye (21) Left-sided weakness: CODE(S): R53.1 - Weakness (22) Hyperlipidemia: CODE(S): E78.5 - Hyperlipidemia, unspecified QUALIFIERS: Hyperlipidemia type: unspecified Qualified Code(s): E78.5 - Hyperlipidemia, unspecified (23) Stage 1 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: CODE(S): J44.9 - Chronic obstructive pulmonary disease, unspecified (24) Emphysema of lung: CODE(S): J43.9 - Emphysema, unspecified (25) NOAM (obstructive sleep apnea): CODE(S): G47.33 - Obstructive sleep apnea (adult) (pediatric) (26) Hypertension: CODE(S): I10 - Essential (primary) hypertension QUALIFIERS: Hypertension type: essential hypertension Qualified Code(s): I10 - Essential (primary) hypertension (27) Persistent atrial fibrillation: CODE(S): I48.1 - Persistent atrial fibrillation (28) Nonrheumatic aortic (valve) stenosis: CODE(S): I35.0 - Nonrheumatic aortic (valve) stenosis (29) Nonrheumatic tricuspid (valve) insufficiency: CODE(S): I36.1 - Nonrheumatic tricuspid (valve) insufficiency (30) Atrial fibrillation: CODE(S): I48.91 - Unspecified atrial fibrillation QUALIFIERS: Atrial fibrillation type: persistent Qualified Code(s): I48.1 - Persistent atrial fibrillation (31) History of pulmonary embolism: CODE(S): Z86.711 - Personal history of pulmonary embolism (32) Obesity (BMI 30-39.9): CODE(S): E66.9 - Obesity, unspecified PLAN: Plan This is a 78-year-old male with multiple pre-existing medical problems. He presented with a large area of clustered ulcerations on the left pretibial surface, which have been present for approximately 1 month. These initially occurred as blisters, which have subsequently unroofed, resulting in these clustered ulcerations. The patient has been treated by his primary care physician with a 10-day course of cephalexin. It is learned that the patient typically sleeps in a recliner. He is not very active, and spends a great deal of time each day sitting. He wears graduated compression stockings of 15 to 20 mmHg compression. Nonetheless, he has developed these ulcerations secondary to blisters which formed approximately 1 month ago. An excisional debridement has been performed today. The patient tolerated the debridement well. We are to implement the use of Promogran topically. A 3M 2 layer compression wrap is to be applied to the patient's left lower extremity today, and will be changed twice weekly. The patient is to continue wearing his graduated compression stockings of 15 to 20 mmHg on his right leg, on a daily basis. A lengthy discussion has been undertaken with the patient and his with regard to the appropriate conservative treatment measures relative to his lower extremity swelling, edema, and chronic venous insufficiency. Leg elevation has been discussed. He is to elevate his lower extremities to heart level, or higher. This is to be accomplished during both daytime and nighttime hours. Prolonged idle sitting has been discouraged. Activity has been encouraged. Weight loss has also been discussed. The patient's questions have been answered. He is to implement the recommended measures, and will return in 3 days for replacement ofthe dressings and wrap. He will be reevaluated in 1 week. Total time: 48 minutes 11/08/23 1400 <Electronically signed by Johnathan Colin MD> Cosigner Signature (if applicable): CC: ~ Signed [facility] Work Phone: 1(712) 264-382602-22-2024 NoteHNO ID: [id number] Author: TOMY HERNANDEZ MD Service: ? Author Type: Physician Type: Progress Notes Filed: 11/04/2023 14:19 Note Text: This note was created using LumiGrowriter. Subjective Javier Degroot is a 78 year old male. He had skin breakdown and cellulitis of the left leg 3 weeks ago. He completed extended antibiotic course for left leg cellulitis. Redness and edema resolved, but wound was not healing. Review of Systems Constitutional: Negative for chills and fever. Respiratory: Negative for shortness of breath. Cardiovascular: Negative for chest pain, palpitations and leg swelling. Gastrointestinal: Negative. ACTIVE PROBLEM LIST Adenomatous Polyp of Colon [...] NOAM (obstructive sleep apnea) cannot tolerate CPAP Tremor of Left Hand Current Outpatient Medications Medication Sig polyethylene glycol 3350 (MIRALAX) 17 gram/dose powder Take by mouth once daily. Dissolve dose in 4 - 8 ounces of liquid and take as directed. Cholecalciferol, Vitamin D3, (VITAMIN D) 25 mcg (1,000 unit) cap Take 1,000 Units by mouth once daily. tamsulosin (FLOMAX) 0.4 mg Take 2 capsules by mouth daily at bedtime. finasteride (PROSCAR) 5 mg tablet Take 1 tablet by mouth once daily. metoprolol tartrate 75 [...] 40 mg by mouth once daily. Per [facility] decreased to once daily. apixaban (ELIQUIS) 5 mg tab tab(s) Take 1 tablet by mouth twice daily. No current facility-administered medications for this visit. Objective BP 138/75 (BP Site: Left Arm, BP Position: Sitting, BP Cuff Size: Large Adult) Pulse 88 Temp 36.8 ?C (98.2 ?F) (Temporal) Resp 20 Wt 109.2 kg (240 lb 12.8 oz) BMI 39.76 kg/m? Physical Exam Constitutional: General: He is not in acute distress. Appearance: He is not ill-appearing. Pulmonary: Effort: Pulmonary effort is normal. Musculoskeletal: Right lower le+ Pitting Edema present. Left lower le+ Pitting Edema present. Skin: Findings: No erythema. Comments: Left lower leg with moist denuded areas, no infection. Neurological: Mental Status: He is alert. Assessment and Plan 1. Stasis ulcer of lower extremity, left (HCC) - ICD9: 454.0, ICD10: I83.029, L97.929 (primary diagnosis) Non healing. Refer to [facility]. - CONSULT TO NON-[facility] FACILITY 2. Primary hypertension - ICD9: 401.9, ICD10: I10 Fair. No change for now. Tomy Hernandez [facility]02-22-2024 History of Present illness Narrative* Tomy Hernandez MD - 11/04/2023 1:59 PM EST This note was created using NoteWriter. Subjective Javier Degroot is a 78 year old male. He had skin breakdown and cellulitis of the left leg 3 weeks ago. He completed extended antibiotic course for left leg cellulitis. Redness and edema resolved, but wound was not healing. Review of Systems Constitutional: Negative for chills and fever. Respiratory: Negative for shortness of breath. Cardiovascular: Negative for chest pain, palpitations and leg swelling. Gastrointestinal: Negative. ACTIVE PROBLEM LIST Adenomatous Polyp of Colon [...] NOAM (obstructive sleep apnea) cannot tolerate CPAP Tremor of Left Hand Current Outpatient Medications Medication Sig polyethylene glycol 3350 (MIRALAX) 17 gram/dose powder Take by mouth once daily. Dissolve dose in 4- 8 ounces of liquid and take as directed. Cholecalciferol, Vitamin D3, (VITAMIN D) 25 mcg (1,000 unit) cap Take 1,000 Units by mouth once daily. tamsulosin (FLOMAX) 0.4 mg Take 2 capsules by mouth daily at bedtime. finasteride (PROSCAR) 5 mg tablet Take 1 tablet by mouth once daily. metoprolol tartrate 75 [...] facility-administered medications for this visit. Objective BP 138/75 (BP Site: Left Arm, BP Position: Sitting, BP Cuff Size: Large Adult) Pulse 88 Temp 36.8 C (98.2 F) (Temporal) Resp 20 Wt 109.2 kg (240 lb 12.8 oz) BMI 39.76 kg/m Physical Exam Constitutional: General: He is not in acute distress. Appearance: He is not ill-appearing. Pulmonary: Effort: Pulmonary effort is normal. Musculoskeletal: Right lower le+ Pitting Edema present. Left lower le+ Pitting Edema present. Skin: Findings: No erythema. Comments: Left lower leg with moist denuded areas, no infection. Neurological: Mental Status: He is alert. Assessment and Plan 1. Stasis ulcer of lower extremity, left (HCC) - ICD9: 454.0, ICD10: I83.029, L97.929 (primary diagnosis) Non healing. Refer to [facility]. - CONSULT TO NON-[facility] FACILITY 2. Primary hypertension - ICD9: 401.9, ICD10: I10 Fair. No change for now. Tomy Hernandez MD documented in this encounterC[facility] NoteHNO ID: [id number] Author: FAMILIA PRATT RN Service: ? Author Type: Registered Nurse Type: Progress Notes Filed: 11/01/2023 15:49 Note Text: CDM Telephonic Outreach Provider Action/FYI CDM: COPD, CKD Left a message to verify symptom status and needs. Instructed to call PCP with any symptom or condition changes. Contacted for: Routine Telephonic Outreach Contact made with patient: No, left message. Familia Pratt RN November 01, 2023 3:45 [facility]02-19-2024 History of Present illness Narrative* Familia Pratt RN - 11/01/2023 3:45 PM EST CDM Telephonic Outreach Provider Action/FYI CDM: COPD, CKD Left a message to verify symptom status and needs. Instructed to call PCP with any symptom or condition changes. Contacted for: Routine Telephonic Outreach Contact made with patient: No, left message. Familia Pratt RN November 01, 2023 3:45 PM * Familia Pratt RN - 10/26/2023 2:41 PM EST CDM Telephonic Outreach Provider Action/FYI CDM: COPD, CKD Left a message with Kristina daughter, Pt went to have his taxes done, will follow up with another day. Contacted for: Routine Telephonic Outreach Contact made with patient: No, left message. Familia Pratt RN October 26, 2023 2:41 PM documented in this encounterC[facility]24 NoteHNO ID: [id number] Author: FAMILIA PRATT RN Service: ? Author Type: Registered Nurse Type: Progress Notes Filed: 11/01/2023 15:49 Note Text: CDM Telephonic Outreach Provider Action/THIERNO CDM: COPD, CKD Left a message with Kristina daughter, Pt went to have his taxes done, will follow up with another day. Contacted for: Routine Telephonic Outreach Contact made with patient: No, left message. Familia Pratt RN October 26, 2023 2:41 [facility]02-13-2024 Miscellaneous Notes* Telephone Encounter - Miles Addison Ma - 10/26/2023 2:06 PM EST Patients notified, verbalized understanding. * Telephone Encounter - Tomy Hernandez MD - 10/26/2023 1:10 PM EST Patient's request for medication is as follows Requested Prescriptions Signed Prescriptions Disp Refills cephALEXin (KEFLEX) 500 mg capsule 9 capsule 0 Sig: Take 1 capsule by mouth three times a day for 3 days. Authorizing Provider: TOMY HERNANDEZ Order entered - please phone pharmacy and notify patient. Tomy Hernandez MD * Telephone Encounter - Ilana Chamberlain LPN - 10/26/2023 9:51 AM EST Pt was seen in the office 10/18/23 for cellulitis left lower extremity. Pt's Sarah reports the area looks good, fairly improved. However pt now has 2 new blisters, one a little bigger than the size of a nickel & a smaller one < the size of a dime. Pt finished cephalexin yesterday & is still taking lasix 40mg bid & klor-con. Otherwise Sarah says pt feels good. Pt uses [facility] in [place]. Please advise. Ilana Chamberlain LPN documented in this encounterC[facility]24 NotePatient Outreach ([facility]) JAVIER DEGROOT ([id number]) 1945 M Date Time Provider Department 10/26/23 FAMILIA PRATT [facility] During your visit today, we recorded the following information about you: Familia Pratt RN 11/01/2023 3:49 PM Signed CDM Telephonic Outreach Provider Action/FYI CDM: COPD, CKD Left a message with Kristina daughter, Pt went to have his taxes done, will follow up with another day. Contacted for: Routine Telephonic Outreach Contact made with patient: No, left message. Familia Pratt RN October 26, 2023 2:41 PM Familia Pratt RN 11/01/2023 3:49 PM Signed CDM Telephonic Outreach Provider Action/FYI CDM: COPD, CKD Left a message to verify symptom status and needs. Instructed to call PCP with any symptom or condition changes. Contacted for: Routine Telephonic Outreach Contact made with patient: No, left message. Familia Pratt RN November 01, 2023 3:45 PM Allergies As of Date: 10/26/2023 Noted Allergy Reaction LISINOPRIL 10/15/2014 3 - Cough Date Reviewed: 10/18/2023 Reviewed by: Anabella Steve LPN - Fully Assessed Reason for Visit: Community Monitoring Outreach [Other] Prescriptions as of 11/01/2023 - tamsulosin (FLOMAX) 0.4 mg Take 2 capsules by mouth daily at bedtime. - finasteride (PROSCAR) 5 mg tablet Take 1 tablet by mouth once daily. - metoprolol tartrate [...] 40 mg by mouth once daily. Per [facility] decreased to once daily. - apixaban (ELIQUIS) 5 mg tab tab(s) Take 1 tablet by mouth twice daily. 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 Author Type: Physician Type: Progress Notes Filed: 10/18/2023 15:29 Note Text: This note was created using LumiGrowriter. Subjective Javier Degroot is a 78 year old male here with . His left leg edema worsened recently, and he started with some skin breakdown and seepage last week. Dr. Lamb saw him for post operative follow up and recommended close observation. This weekend, skin breakdown, seepage, and redness increased. We instructed him to double his lasix which he started Saturday. Review of Systems Constitutional: Negative for chills and fever. Respiratory: Negative for cough and shortness of breath. Cardiovascular: Negative for chest pain. Genitourinary: Negative for difficulty urinating. ACTIVE PROBLEM LIST Adenomatous Polyp of Colon [...] NOAM (obstructive sleep apnea) cannot tolerate CPAP Tremor of Left Hand Current Outpatient Medications Medication Sig tamsulosin (FLOMAX) 0.4 mg Take 2 capsules by mouth daily at bedtime. finasteride (PROSCAR) 5 mg tablet Take 1 tablet by mouth once daily. metoprolol tartrate 75 [...] Take 1 tablet by mouth twice daily. GUAIFENESIN ORAL Take 400 mg by mouth once daily. (Patient not taking: Reported on 10/18/2023) No current facility-administered medications for this visit. Objective BP 146/80 (BP Site: Left Arm, BP Position: Sitting, BP Cuff Size: Large Adult) Pulse 80 Temp 36.9 ?C (98.5 ?F) (Temporal) Resp 20 Wt 107.5 kg (237 lb) BMI 39.14 kg/m? Physical Exam Constitutional: General: He is not in acute distress. Cardiovascular: Rate and Rhythm: Normal rate and regular rhythm. Occasional Extrasystoles are present. Pulmonary: Effort: No respiratory distress. Breath sounds: No wheezing or rales. Musculoskeletal: Left knee: No swelling or erythema. No tenderness. Right lower le+ Pitting Edema present. Left lower le+ Pitting Edema present. Comments: Incision well healed. Skin: Findings: Erythema present. Comments: Serpiginous skin breakdown with moisture, no edilberto drainage, surrounding erythema ~1 x 2 inches. No lymphangitis. Neurological: Mental Status: He is alert. Assessment and Plan 1. Cellulitis of left lower extremity - ICD9: 682.6, ICD10: L03.116 (primary diagnosis) - Begin treatment with Cephalaxin (Keflex) - CEPHALEXIN 500 MG CAPSULE 2. Stasis ulcer of lower extremity, left (HCC) - ICD9: 454.0, ICD10: I83.029, L97.929 Self wound care. Edema control. Continue furosemide 40 mg BID x one week. His foreign correspondent also advised BID potassium with BID lasix 3. Stage 3a chronic kidney disease (HCC) - ICD9: 585.3, ICD10: N18.31 - eGFR: 61 Stable - COMP METABOLIC PANEL 4. Hyperlipidemia, unspecified hyperlipidemia type - ICD9: 272.4, ICD10: E78.5 - Controlled - Continue current medications - Counseled on healthy diet and regular exercise - LIPID PANEL BASIC 5. Impaired fasting glucose - ICD9: 790.21, ICD10: R73.01 - HGB A1C Return sooner if needed. Tomy Hernandez [facility]02-05-2024 History of Present illness Narrative* Tomy Hernandez MD - 10/18/2023 3:03 PM EST This note was created using NoteWriter. Subjective Javier Degroot is a 78 year old male here with . His left leg edema worsened recently, and hestarted with some skin breakdown and seepage last week. Dr. Lamb saw him for post operative follow up and recommended close observation. This weekend, skin breakdown, seepage, and redness increased. We instructed him to double his lasix which he started Wednesday. Review of Systems Constitutional: Negative for chills and fever. Respiratory: Negative for cough and shortness of breath. Cardiovascular: Negative for chest pain. Genitourinary: Negative for difficulty urinating. ACTIVE PROBLEM LIST Adenomatous Polyp of Colon [...] NOAM (obstructive sleep apnea) cannot tolerate CPAP Tremor of Left Hand Current Outpatient Medications Medication Sig tamsulosin (FLOMAX) 0.4 mg Take 2 capsules by mouth daily at bedtime. finasteride (PROSCAR) 5 mg tablet Take 1 tablet by mouth once daily. metoprolol tartrate 75 [...] 40 mg by mouth once daily. Per [facility] decreased to once daily. apixaban (ELIQUIS) 5 mg tab tab(s) Take 1 tablet by mouth twice daily. GUAIFENESIN ORAL Take 400 mg by mouth once daily. (Patient not taking: Reported on 10/18/2023) No current facility-administered medications for this visit. Objective BP 146/80 (BP Site: Left Arm, BP Position: Sitting, BP Cuff Size: Large Adult) Pulse 80 Temp 36.9 C (98.5 F) (Temporal) Resp 20 Wt 107.5 kg (237 lb) BMI 39.14 kg/m Physical Exam Constitutional: General: He is not in acute distress. Cardiovascular: Rate and Rhythm: Normal rate and regular rhythm. Occasional Extrasystoles are present. Pulmonary: Effort: No respiratory distress. Breath sounds: No wheezing or rales. Musculoskeletal: Left knee: No swelling or erythema. No tenderness. Right lower le+ Pitting Edema present. Left lower le+ Pitting Edema present. Comments: Incision well healed. Skin: Findings: Erythema present. Comments: Serpiginous skin breakdown with moisture, no edilberto drainage, surrounding erythema ~1 x 2 inches. No lymphangitis. Neurological: Mental Status: He is alert. Assessment and Plan 1. Cellulitis of left lower extremity - ICD9: 682.6, ICD10: L03.116 (primary diagnosis) - Begin treatment with Cephalaxin (Keflex) - CEPHALEXIN 500 MG CAPSULE 2. Stasis ulcer of lower extremity, left (HCC) - ICD9: 454.0, ICD10: I83.029, L97.929 Self wound care. Edema control. Continue furosemide 40 mg BID x one week. His foreign correspondent also advised BID potassium with BID lasix 3. Stage 3a chronic kidney disease (HCC) - ICD9: 585.3, ICD10: N18.31 - eGFR: 61 Stable - COMP METABOLIC PANEL 4. Hyperlipidemia, unspecified hyperlipidemia type - ICD9: 272.4, ICD10: E78.5 - Controlled - Continue current medications - Counseled on healthy diet and regular exercise - LIPID PANEL BASIC 5. Impaired fasting glucose - ICD9: 790.21, ICD10: R73.01 - HGB A1C Return sooner if needed. Tomy Hernandez MD documented [facility] encounterC[facility] NoteHNO ID: [id number] Author: FAMILIA PRATT RN Service: ? Author Type: Registered Nurse Type: Progress Notes Filed: 09/22/2023 15:12 Note Text: 09/01/23CDM Telephonic Outreach Provider Action/FYI CDM: COPD, CKD Pt noted on 09/01/23 he underwent Left Knee Replacement by Dr. Lamb, doing very well, denies signs of infection, receiving outpt Physical Therapy at [facility] 2x wk, eA Th. Pt has 10/14/[address] Lamb Ortho surgeon BP 128/75, Pulse Oximeter 95-97%, ROM 95-98% Pt states taking Tylenol for pain as needed. He denies symptom concerns or needs Contacted for: Routine Telephonic Outreach Contact made with patient: Yes Patient identified by name and date of . Discussed care with patient Are you experiencing any new or worsening symptoms you need to talk about today? No Disease Specific Do you check your blood pressure at home? Yes, Enter readings: 128/75 Do you have new or worsening shortness [...] more often than normal? No Based on picking supervisor, the following disposition is advised: No symptoms or symptoms present, not severe. Routed to: No Action Needed DESTINEY Education Provided this Outreach: No Familia Pratt RN September 22, 2023 2:39 [facility]01-10-2024 NotePatient Outreach ([facility]) JAVIER DEGROOT ([id number]) 1945 M Date Time Provider Department 09/22/23 FAMILIA PRATT [facility] During your visit today, we recorded the following information about you: Familia Pratt RN 09/22/2023 3:12 PM Signed [facility]01[facility]23[facility] Provider Action/FYI CDM: COPD, CKD Pt noted on 09/01/23 he underwent Left Knee Replacement by Dr. Lamb, doing very well, denies signs of infection, receiving outpt Physical Therapy at [facility] 2x wk, [facility] Thur. Pt has 10/14/[address] Lamb Ortho surgeon BP 128/75, Pulse Oximeter 95-97%, ROM 95-98% Pt states taking Tylenol for pain as needed. He denies symptom concerns or needs Contacted for: Routine Telephonic Outreach Contact made with patient: Yes Patient identified by name and date of . Discussed care with patient Are you experiencing any new or worsening symptoms you need to talk about today? No Disease Specific Do you check your blood pressure at home? Yes, Enter readings: 128/75 Do you have new or worsening shortness [...] more often than normal? No Based on picking supervisor, the following disposition is advised: No symptoms or symptoms present, not severe. Routed to: No Action Needed DESTINEY Education Provided this Outreach: No Familia Pratt RN September 22, 2023 2:39 PM Allergies As of Date: 09/22/2023 Noted Allergy Reaction LISINOPRIL 10/15/2014 3 - Cough Date Reviewed: 08/16/2023 Reviewed by: Anabella Steve LPN - Fully Assessed Reason for Visit: Community Monitoring Outreach [Other] Prescriptions as of 09/22/2023 - tamsulosin (FLOMAX) 0.4 mg Take 2 capsules by mouth daily at bedtime. - finasteride (PROSCAR) 5 mg tablet Take 1 tablet by mouth once daily. - GUAIFENESIN ORAL Take 400 mg by [...] [facility] decreased to once daily. - apixaban (ELIQUIS) 5 mg tab tab(s) Take 1 tablet by mouth twice daily. Problem List As Of Date 09/22/2023 Noted Resolved Elevated prostate specific antigen (PSA) [...] [E66.9] 04/13/2019 Positive colorectal cancer screening using [facility]*05/02/2020 03/22/2023 Aortic valve stenosis [I35.0] 11/26/2020 Nocturnal hypoxia [G47.34] 11/26/2020 Venous insufficiency of both lower extremities *04/28/2021 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 Obesity (BMI 35.0-39.9 without comorbidity) [E6*07/17/2021 Dependence on continuous supplemental oxygen [Z*08/22/2021 09/16/2021 Impaired fasting glucose [R73.01] 03/18/2022 Secondary pulmonary arterial hypertension (HCC)*03/18/2022 Stage 3a chronic kidney disease (HCC) [N18.31] 03/18/2022 NOAM (more content not included)...[facility]12-04-[facility]23 NoteHNO ID: [id number] Author: Tomy Hernandez MD Service: ? Author Type: Physician Type: Progress Notes Filed: 08/16/2023 5:50 PM Note Text: This note was created using [employer]. Subjective Patient presents with: Pre-Op Exam Consultation [...] and valvular heart disease was stable. His foreign correspondent completed a stress test in April, and [...] 40 mg by mouth once daily. Per [facility] decreased to once daily. apixaban [...] Pitting Edema present (more content not included)... [facility]12-04-[facility] History of Present illness Narrative* Tomy Hernandez MD - 08/16/2023 1:45 PM EST This note was created using NoteWriter. Subjective Patient presents with: Pre-Op Exam Consultation [...] and valvular heart disease was stable. His foreign correspondent completed a stress test in April, and cleared him. His COPD and pulmonary hypertension were stable, and pulmonary clearedhim for surgery. He will get instructions to [...] noted. Tomy Hernandez MD documented in this encounterC[facility]11-30-2023 NoteHNO ID: [id number] Author: Familia Pratt RN Service: ? Author Type: Registered Nurse Type: Progress Notes Filed: 08/12/2023 1:23 PM Note Text: CDM Telephonic Outreach Provider Action/FYI CDM: COPD, CKD Spk with Pt and , Pt has bilateral knee pain, scheduled 08/13/23 CT of Left Knee for anticipated 09/01/[address] replacement [address] Jhaveri at [facility]. BP 126/68, Pulse Ox 96%, Temp 96.6 [...] more often than normal? No Based on picking supervisor, the following disposition is advised: No symptoms or symptoms present, not severe. Routed to: No Action Needed DESTINEY Education Provided this Outreach: No Familia Pratt RN August 12, 2023 1:07 [facility]11-30-2023 History of Present illness Narrative* Familia Pratt RN - 08/12/2023 12:38 PM EST CDM Telephonic Outreach Provider Action/FYI CDM: COPD, CKD Spk with Pt and , Pt has bilateral knee pain, scheduled 08/13/23 CT of Left Knee for fzkncxbqrey22/20/[address] replacement [address] Jhaveri at [facility]. BP 126/68, Pulse Ox 96%, Temp 96.6 [...] more often than normal? No Based on picking supervisor, the following disposition is advised: No symptoms or symptoms present, not severe. Routed to: No Action Needed DESTINEY Education Provided this Outreach: No Familia Pratt RN August 12, 2023 1:07 PM documented in this encounterC[facility]11-30-2023 NotePatient Outreach ([facility]) JAVIER DEGROOT ([id number]) 1945 M Date Time Provider Department 08/12/23 FAMILIA PRATT [facility] During your visit today, we recorded the following information about you: Familia Pratt RN 08/12/2023 1:23 PM Signed CDM Telephonic Outreach Provider Action/FYI CDM: COPD, CKD Spk with Pt and , Pt has bilateral knee pain, scheduled 08/13/23 CT of Left Knee for anticipated 09/01/[address] replacement [address] Jhaveri at [facility]. BP 126/68, Pulse Ox 96%, Temp 96.6 [...] more often than normal? No Based on picking supervisor, the following disposition is advised: No symptoms [...] [E66.9] 04/13/2019 Positive colorectal cancer screening using [facility]*05/02/2020 03/22/2023 Aortic valve stenosis [I35.0] 11/26/2020 Nocturnal [...] Status:Closed by Twila PRATT (more content not included)...[facility] History of Present illness Narrative* Tomy Hernandez MD - 03/22/2023 5:51 PM EDT This note was created using LumiGrowriter. Subjective Javier Degroot is a 77 year old male here with his . He was mainly seeing specialists at [facility] and most medications were from there. He [...] Cuff Size: Large Adult) Resp 28 Ht 165.7cm (5' 5.25) Wt 105.6 kg (232 lb 14.4 oz) [...] 20 MEQ TABLET,EXTENDED RELEASE(PART/CRYST) Tomy Hernandez MD * Tomy Hernandez MD - 03/22/2023 5:28 PM EDT Javier Degroot is a 77 year old male here for a Medicare Subsequent Annual Wellness Visit Health Risk Assessment In general, health is: Fair Concerns with balance: Not at all Concerns with teeth or dentures: Not at all Concerns with sexual function: Not at all [place] anxious, stressed, angry, irritable, lonely, isolated, or [...] PCP - General (Internal Medicine) Familia Pratt, RN as Regulatory Administrator (Internal Medicine) Christopher Rivera MD(Cardiology) Bran Russell (Pulmonary Disease) Kimmy Sanchez MD, (Surgery) Iliana Lamb MD (Orthopedics) Swetha Engle DPM (Podiatry) Ruma Dickerson (Urology) Jos Vela MD (Ophthalmology) Kathy Oliva MD (ENT-audiology) [employer] [place] (Oxygen supplier). Medical/Family history review Reviewed and [...] with patient, and I recommended no further interventionat this time. Cognitive screening Mini Cog Score: [...] avoidance - Depression screening documented in this encounterC[facility]07-10-2023 Instructions* Patient Instructions* Tomy Hernandez MD - 03/22/2023 5:49 PM EDT Recombinant shingles vaccine (Shingrix) is recommended; 2 doses 2-6 months apart. Please read information, check with your insurance, and schedule vaccination at your local pharmacy. A prescription is not required. If you are certain you have coverage to receive this vaccine in the office, we can schedule this for you. documented in this encounterC[facility]06-01-2023 History of Present illness Narrative* Familia Pratt RN - 02/11/2023 3:59 PM EDT CDM Telephonic Outreach Provider Action/FYI CDM: COPD, CKD Called Pt to verify symptoms and needs, line was busy, unable to leave a message. Contacted for: Routine Telephonic Outreach Contact made with patient: No, unable to leave message. Will reattempt call Familia Pratt RN February 11, 2023 4:00 PM * Familia Pratt RN - 02/10/2023 3:33 PM EDT CDM Telephonic Outreach Provider Action/FYI CDM: COPD, CKD Called Pt, left a message instructed to call PCP with any changes in condition or needs. Contacted for: Routine Telephonic Outreach Contact made with patient: No, left message. Familia Pratt RN February 10, 2023 3:34 PM documented in this encounterC[facility]05-04-2023 History of Present illness Narrative* Familia Pratt RN - 01/14/2023 10:51 AM EDT CDM Telephonic Outreach Provider Action/FYI CDM: COPD, [...] more often than normal? No Based on picking supervisor, the following disposition is advised: Routed to: No Action Needed DESTINEY Education Provided this Outreach: No Familia Pratt RN January 14, 2023 10:52 AM documented in this encounterC[facility]03-22-2023 Procedure [facility]03-22-2023 Procedure [facility]03-22-2023 History and physical note [facility] December 02, 2022 8:15am Note Date/Time December 02, 2022 7:4 8am [facility] Medical Records Department [address] [place] [address] History & Physical Exam 12/02/22 0747 MR#: [id number] Acct: [id number] Name: JAVIER DEGROOT Rep #:[id number] : 1945 77 From: Abida Sanchez MD PCP: Dr. Tomy Hernandez MD Status:R EG [facility] Location: [facility]12-1 History and Physical Date of Admission: 12/02/22 Date of Service:? 10/30/22 MR#: [id number] Acct: [id number] Name:? JAVIER DEGROOT Rep #: [id number] : 1945 ? ? Provider: Dr. Abida Sanchez MD Age/Sex:? 77/M ? ? Location: [facility] Status: Signed Intake Vital Signs ? 10/30/2312:35 Height 5 ft 7 in Weight: 245 lb BMI 38.3 BP 155/72 H Blood Pressure Location Rt brachial Position Sitting Respiration 17 Pulse 69 Pulse Source Monitor Temp 97.9 F Temp Source Temporal Pulse Oximetry (%) 93 Oxygen Delivery Method room air Intake Visit Reasons:?6 MONTH RECALL C-Scope Chief Complaint: 6 month recall colonoscopy Radial Router Operator Required: No Is patient in pain?: No Allergies lisinopril Adverse Reaction (Intermediate, Verified 10/30/22 13:37) cough Medications finasteride 5 mg tablet 5 mg PO DAILY prostate 09/24/15 [History Confirmed 10/30/22] tamsulosin 0.4 mg capsule (Flomax) 0.8 mg PO DAILY prostate 02/28/18 [History Confirmed 10/30/22] Disability Placard #1 ea 01/01/21 [Rx Confirmed 10/30/22] aspirin 81 mg capsule 81 mg PO DAILY 05/06/21 [History Confirmed 10/30/22] cartilage 40 mg-collagen 12 mg-hyaluronic ac 3.3 mg-vit C 30 mg tablet 2 tab PO DAILY 08/20/22 [History Confirmed 10/30/22] apixaban 5 mg tablet 5 mg PO BID blood thinner #180 tabs 10/01/22 [Rx Confirmed 10/30/22] atorvastatin 10 mg tablet 10 mg PO QDAY #90 tabs 10/01/22 [Rx Confirmed 10/30/22] diltiazem HCl 120 mg tablet 120 mg PO BID 90 days #180 tabs 10/01/22 [Rx Confirmed 10/30/22] furosemide 40 mg tablet 40 mg PO DAILY fluid #90 tabs 10/01/22 [Rx Confirmed 10/30/22] metoprolol tartrate 75 mg tablet 75 mg PO BID #180 tabs 10/01/22 [Rx Confirmed 10/30/22] potassium chloride 20 mEq tablet,extended release(part/cryst) (Klor-Con M) 20 meq PO DAILY #90 tabs 10/01/22 [Rx Confirmed 10/30/22] PFSH Medical History? Abrasion Arthritis Atherosclerotic heart disease of [place] coronary artery without angina pectoris Atrial fibrillation Bilateral pulmonary embolism BPH (benign prostatic hyperplasia) Cardiology follow-up encounter COPD (chronic obstructive pulmonary disease) COVID-19 (~09/2020) Dyspnea on exertion Easy bruising Emphysema of lung Excessive bleeding Fever Former smoker History of atrial fibrillation History of CHF (congestive heart failure) History of echocardiogram History of edema History of left heart catheterization (LHC) (~05/06/21) History of transcatheter aortic valve replacement (TAVR) (~07/10/21) Hyperlipidemia Hypertension Left-sided weakness Non-rheumatic mitral valve stenosis Nonrheumatic aortic (valve) stenosis Nonrheumatic tricuspid (valve) insufficiency On home oxygen therapy NOAM (obstructive sleep apnea) Other secondary pulmonary hypertension Persistent atrial fibrillation Pulmonary embolism Solitary pulmonary nodule Stage 1 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 Wears dentures Wears glasses Wears hearing aid Surgical History? H/O oral surgery History of colonoscopy (~2010) History of left cataract surgery Family History? Mother CVA (cerebral vascular accident) DiabetesOther Family history of CVA Social History? Smoking Status:? Former smoker quit date: 09/13/11 pack-years: 80 Tobacco: How many years used:? 40 how long ago did patient quit smoking:? 2010 second hand exposure:? No alcohol intake:? never substance use type:? does not use caffeine:? Yes Type: tea what type of physical activity do you participate in:? none seatbelt use:? always do you feel safe at home:? Yes HPI HPI HPI: 77-year-old male presents for follow-up colonoscopy due to multiple polyps and piecemeal removal of tubular adenoma 6 months prior?April 2022.? Patient also did have a tubulovillous adenoma which was completely removed there is almost a centimeter in size.? Patient states he has bowel movements mostly daily; sometimes they are harder but he does take stool softeners, but does not drink enough water.? Patient denies any chronic abdominal pain or blood in stool. ROS General General: Yes weight change and fatigue; No appetite, colon cancer, breast cancer or weakness HEENT HEENT: No difficulty swallowing, eye injury, eye surgery, swollen glands or hoarseness Endo Endocrine: No thyroid disease, diabetes mellitus, thyroid cancer, Hair loss, heat intolerance or cold intolerance Skin Skin: No rash or changing moles Musc Musculoskeletal: Yes arthritis and rheumatoid arthritis; No back problems, gout or joint pain Cardio Cardiovascular: Yes murmur, heart disease, atrial fibrillation, high blood pressure and heart stent; No pacemaker, heart attack, palpitations, shortness of breat with exertion or chest pain Psych Psychiatric: Yes anxiety; No depression or hearing voices Resp Respiratory: Yes shortness of breath, Yes sleep apnea, No cough, Yes COPD, No asthma, Yes emphysema and No wheezing Gastro Gastrointestinal: No abdominal pain, No nausea or vomiting, No diarrhea, Yes constipation, No blood in stool, No acid reflux, No hemorrhoids, No ulcers, No gallbladder problem and No black,tarry stools Ag Hematologic: Yes blood thinners, No blood disorders, No bleeding, No anemia and No blood clots Neuro Neurologic: No system reviewed and no additional complaints, except as documented, No as per HPI, No abnormal gait, No abnormal hearing, No abnormal movements, No abnormal speech, No behavioral changes, No burning sensations, No confusion, No convulsions, No disequilibrium, No dizziness, No localized weakness, No frequent falls, No headache(s), No lack of coordination, No loss ofvision, No memory loss, No numbness, No other visual disturbances, No radicular pain, No restless legs, No sensory deficit, No syncope, No tingling, No tremor(s), No weakness and No other Exam Const General: cooperative, healthy appearing, comfortable and no acute distress Neck Neck: normal visual inspection Resp Effort & Inspection: normal respiratory effort Cardio Rate: regular rate GI Inspection: non-distended Palpation: soft, no guarding and nontender Skin General: no rashes or lesions noted Neuro General: patient oriented x3 Psych Affect: normal affect Assessment and Plan Assessment and Plan (1) Hx of adenomatous colonic polyps: ?Status:?Acute Plan Patient is also on Eliquis which we will hold for 3 days prior to colonoscopy. I have discussed the above with the patient. I have offered the patient colonoscopy for evaluation. I have explained the risks/benefits of the procedure and described the procedure.? I have discussed the risks with the patient, including but not limited to:? infection, bleeding, perforation of the GI tract requiring emergency surgery, inability to complete the procedure, injury to any internal organs, complications of anesthesia, etc. - the patient understands and agrees to proceed. I have answered all the patient's questions to the patient's satisfaction and the patient has no further questions. The patient has been given instructions for the colon cleansing preparation.? 1 day MiraLAX Dulcolax split prep. Abida Sanchez M.D. Pager: [phone] [facility] [address] [place] [address], [address] [place] [address] Office: [phone] Coding Level of Care Code Off vis,est,level 3 Diagnoses Hx of adenomatous colonic polyps? Z86.010 10/30/222101 <Electronically signed by Abida Sanchez MD> Date Abida Sanchez MD 12/02/22 0748 <Electronically signed by Abida Sanchez MD> Cosigner Signature (if applicable): CC: Dr. Abida Sanchez MD; Dr. Tomy Hernandez MD~ Signed ADDENDUM by Dr. Abida Sanchez MD on 12/02/22 at 0815 Addendum I have examined the patient and the H&P has been reviewed. There are no clinicalchanges since date of exam. 12/02/22 [id number]<Electronically signed by Abida Sanchez MD> Cosigner Signature (if applicable): cc: Dr. Abida Sanchez MD; Dr. Tomy Hernandez MD ~* Signed [facility] Work Phone: 1(912) 858-963603-13-2023 History of Present illness Narrative* Familia Pratt, RN - 11/23/2022 10:19 AM EDT INSIGHT CDM TELEPHONIC OUTREACH Provider Action/FYI: CDM: [...] like to speak with a social work application development team lead to help give you support for any [...] you up for automated weekly questionnaires through [employer]. This is an easy way for us [...] PtOutreach and End outreach. Familia Pratt RN November 23, 2022 10:19 AM documented in this encounterC[facility] History of Present illness Narrative* Familia Pratt RN - 10/22/2022 4:27 PM EST INSIGHT CDM TELEPHONIC OUTREACH Provider Action/FYI: CDM: [...] like to speak with a social work application development team lead to help give you support for any [...] you up for automated weekly questionnaires through [employer]. This is an easy way for us [...] PtOutreach and End outreach. Familia Pratt RN October 22, 2022 4:27 PM documented in this encounterCleveland Clinic [facility]01-31-2023 Miscellaneous Notes* Telephone Encounter - Anabella Steve LPN - 10/13/2022 1:38 PM EST Patient has been identified by name and [...] you. Anabella Steve LPN documented in this encounterCleveland Clinic [facility]01-09-2023 History of Present illness Narrative* Familia Pratt RN - 09/21/2022 12:29 PM EST INSIGHT CDM TELEPHONIC OUTREACH Provider Action/FYI: CDM: [...] like to speak with a social work application development team lead to help give you support for any [...] you up for automated weekly questionnaires through [employer]. This is an easy way for us [...] PtOutreach and End outreach. Familia Pratt RN September 21, 2022 12:29 PM documented in this encounterCleveland Clinic [facility]12-08-2022 History of Present illness Narrative* Familia Pratt RN - 2022 8:04 AM EST INSIGHT CDM TELEPHONIC OUTREACH Provider Action/FYI: CDM: COPD/ CKD Spk with Pt he denies COPD/ CKD symptoms, or needs, BP 121/71, Pulse Oximeter 95%, Wt 245-248 lbs Pt has Appt today with Dr. [facility] Recent Ortho Appt with Dr. Saba, [...] like to speak with a social work application development team lead to help give you support for any [...] you up for automated weekly questionnaires through [facility] [employer]. This is an easy way for us [...] PtOutreach and End outreach. Familia Pratt RN 2022 8:04 AM documented in this encounterCleveland Clinic [facility]11-04-2022 History of Present illness Narrative* Terence Alan RN - 07/17/2022 2:39 PM EDT INSIGHT CDM TELEPHONIC OUTREACH Provider [...] like to speak with a social work application development team lead to help give you support for any [...] you up for automated weekly questionnaires through [employer]. This is an easy way for us [...] PtOutreach and End outreach. Familia Pratt RN July 17, 2022 2:39 PM documented in this encounterCleveland Clinic [facility]10-18-2022 NoteHNO ID: [id number] Author: Tamika Dutta APRN.ASSOCIATE PROFESSOR OF HISTORY Service: ? Author Type: Nurse Practitioner Type: Progress Notes Filed: 06/30/2022 3:19 PM Note Text: INTERVENTIONAL CARDIOLOGY SERVICE 1 Year Post-TAVR Follow-Up PRIMARY CARE PHYSICIAN: Tomy Hernandez [address] [place] [address] Chief Complaint Patient presents with: F/U 6 [...] mouth once daily. 30 (more content not included)...[facility]10-18-[facility] Instructions* Patient Instructions* Tamika Dutta APRN.ASSOCIATE PROFESSOR OF HISTORY - 06/30/2022 2:11 PM EDT Recommend annual [...] risk for heart failure. documented in this encounterCleveland Clinic [facility]10-18-2022 History of Present illness Narrative* Tamika Dutta APRN.CNP - 06/30/2022 2:01 PM EDT Images from the original note were not included. INTERVENTIONAL CARDIOLOGY SERVICE 1 Year Post-TAVR Follow-Up PRIMARY CARE PHYSICIAN: Tomy Hernandez [address] [place] [address] Chief Complaint Patient presents with: F/U 6 [...] injection (DEFINITY) INTRAVENOUS DIRECTED PRN Tamika Dutta APRN.AUGUSTO sodium chloride 0.9 % (flush) 10 mL (BD POSIFLUSH) 10 mL INTRAVENOUS DIRECTED PRN Tamika Dutta, CHLORINATOR OPERATOR.ASSOCIATE PROFESSOR OF HISTORY Objective Physical Examination: Vitals:BP 130/70 Pulse 77 [...] #26). There is trace aortic valve regurgitation. Thepeak gradient is 24 mmHg, the mean gradient is 13 mmHg and the dimensionless valve index is 0.36. Prior pk/mn gradients of 23/12 mmHg. - There is moderate mitral annular calcification observed anterior and posterior. - Exam was compared with the prior echocardiographic exam performed on 08/21/2021, no signifcantchange. TAVR Procedure Note 07/10/2021 PROCEDURES: 1. Successful transfemoral implantation of a 26 mm Duenas-Colby S3 THV deployed at Nominal fill volume 2. Placement of a temporary venous pacemaker 3. Right femoral arterial access site closure with a single Perclose Proglide device and 8Fr. Angioseal 4. Selective angiography of the right common femoral artery (first order) 5. Successful placement and removal of a Quinn Cerebral Embolic Protection device via the right [...] to 1.38 since lowering Lasix dose. - KCCQ scanned into chart. - EKG completed today. [...] PM PAGER/CONTACT #: [phone] documented in this encounterCleveland Clinic [facility]10-18-2022 Nurse Note* Venita Crow MA - 06/30/2022 1:25 PM EDT No cardiac complaints today. Venita Crow MA * Venita Crow MA - 06/30/2022 1:19 PM EDT CARDIAC REHAB 5 METER WALK TEST SERVICE DATE: 06/30/2022 SERVICE TIME: 118 pm ASSESSMENT: 5 secs 5 secs 4 secs SIGNATURE: Venita Crow MA PATIENT NAME: Javier Degroot DATE: June 30, 2022 TIME: 1:19 PM PAGER/CONTACT #: [phone] documented in this encounterCleveland Clinic [facility]10-04-2022 History of Present illness Narrative* Terence Alan RN - 06/16/2022 4:23 PM EDT INSIGHT CDM TELEPHONIC OUTREACH Provider [...] like to speak with a social work application development team lead to help give you support for any [...] you up for automated weekly questionnaires through [facility]. This is an easy way for us [...] PtOutreach and End outreach. Familia Pratt RN June 16, 2022 4:23 PM documented in this encounterCleveland Clinic [facility]08-26-2022 History of Present illness Narrative* Terence Alan RN - 05/08/2022 11:05 AM EDT INSIGHT CDM TELEPHONIC OUTREACH Provider Action/FYI: Spk with Pt he denies new or worsening COPD/ CKD symptoms or needs, he reports had a Colonoscopy 05/07/[address] [facility], BP 114/58, P 96% Contact made with [...] like to speak with a social work application development team lead to help give you support for any [...] you up for automated weekly questionnaires through [facility] [employer]. This is an easy way for us [...] PtOutreach and End outreach. Familia Pratt RN May 08, 2022 11:05 AM documented in this encounterCleveland Clinic [facility]08-08-2022 History of Present illness Narrative* Terence Alan RN - 04/20/2022 9:34 AM EDT INSIGHT CDM TELEPHONIC OUTREACH Provider [...] like to speak with a social work application development team lead to help give you support for any [...] you up for automated weekly questionnaires through [facility] [employer]. This is an easy way for us [...] PtOutreach and End outreach. Familia Pratt RN April 20, 2022 9:34 AM documented in this encounterCleveland Clinic [facility]07-21-2022 History of Present illness Narrative* Terence Alan RN - 04/02/2022 1:04 PM EDT INSIGHT CDM TELEPHONIC OUTREACH Provider [...] like to speak with a social work application development team lead to help give you support for any [...] you up for automated weekly questionnaires through [facility] [employer]. This is an easy way for us [...] PtOutreach and End outreach. Familia Pratt RN April 02, 2022 1:03 PM documented in this encounterCleveland Clinic [facility]07-11-2022 Miscellaneous Notes* Telephone Encounter - Kim Chan LPN - 03/23/2022 11:14 AM EDT Pt's calls to report pt wants to get colonoscopy through [facility] Surgical Team. Order, last OV note, Cologard and last colonoscopy results faxed to: [phone] as requested. Kim Chan LPN documented in this encounterCleveland Clinic [facility]07-06-2022 Miscellaneous Notes* Telephone Encounter - Rebeka Camacho - 03/18/2022 3:19 PM EDT Patient is having it at the Hospital * Telephone Encounter - Vladimir Tasha - 03/18/2022 12:06 PM EDT Patient due for screening colonoscopy . Patient is not appropriate for open access. Please scheduleoffice consult Vladimir Cordova documented in this encounterCleveland Clinic [facility]07-06-2022 Instructions* Patient Instructions* Tomy Hernandez MD - 03/18/2022 10:14 AM EDT Discuss reducing furosemide with cardiology. documented in this encounterCleveland Clinic [facility]ucl[facility]07-06-2022 History of Present illness Narrative* Tomy Hernandez MD - 03/18/2022 9:50 AM EDT This note was created using [employer]. Subjective Javier Degroot is a 76 year [...] to once daily (He will contact his foreign correspondent). We will forward labs to his foreign correspondent. 2. Hyperlipidemia, unspecified hyperlipidemia type - ICD9: [...] cardiology. Tomy Hernandez MD documented in this encounterCleveland Clinic [facility]07-06-2022 Evaluation note* Diagnosis Stage 3a chronic kidney disease (HCC)- Primary Hyperlipidemia, unspecified hyperlipidemia type Hyperglycemia Other abnormal glucose Impaired fasting glucose Positive colorectal cancer screening using Cologuard test Secondary pulmonary arterial hypertension (HCC) documented in this encounter [facility] History of Present illness Narrative* Terence Alan RN - 03/13/2022 1:17 PM EDT INSIGHT CDM TELEPHONIC OUTREACH Provider [...] like to speak with a social work application development team lead to help give you support for any [...] you up for automated weekly questionnaires through [facility]. This is an easy way for us [...] 13, 2022 1:17 PM documented in this encounterCleveland Clinic [facility]06-15-2022 History of Present illness Narrative* Terence Alan [...] like to speak with a social work application development team lead to help give you support for any [...] you up for automated weekly questionnaires through [facility]. This is an easy way for us [...] 25, 2022 3:04 PM documented in this encounterCleveland Clinic [facility]05-31-2022 History of Present illness Narrative* Terence Alan [...] like to speak with a social work application development team lead to help give you support for any [...] you up for automated weekly questionnaires through [facility]. This is an easy way for us [...] 10, 2022 11:25 AM documented in this encounterCleveland Clinic [facility]05-16-2022 History of Present illness Narrative* Javier Starr [...] evaluation. Has 2 small wounds onhis left melgar. Thinks he could have gotten them by [...] Two 1 cm skin tears on left melgar without surrounding erythema, drainage, TTP, warmth to [...] IM Javier Starr MD documented in this encounterCleveland Clinic [facility]05-13-2022 History of Present illness Narrative* Terence Alan RN - 01/23/2022 1:19 PM EDT PRIMARY CARE COORDINATION QUICK NOTE Provider Action/FYI Spk with Sarah / Pt denies falls, No ambulatory DME GoaL: To be more mobile, and increased endurance Patient identified by name and date . Familia Pratt RN January 23, 2022 1:20 PM documented in this encounterCleveland Clinic [facility]04-21-2022 History of Present illness Narrative* Terence Alan RN - 01/01/2022 11:06 AM EDT INSIGHT CDM TELEPHONIC OUTREACH Provider Action/FYI: Spk with Pt who denies new or worsening COPD or other symptoms, wears Oxygen @ 2 liters at HS, Pulse Oximeter 95% Pt is scheduled 01/01/22 for 6 min walk Test, 01/05/22 PFT and 01/05/22 Appt with [facility] for Left knee evaluation Contact made [...] like to speak with a social work application development team lead to help give you support for any [...] you up for automated weekly questionnaires through [facility]. This is an easy way for us [...] 01, 2022 11:07 AM documented in this encounterCleveland Clinic [facility]04-19-2022 NoteHNO ID: [id number] Author: Tamika Dutta APRN.ASSOCIATE PROFESSOR OF HISTORY Service: ? Author Type: Nurse Practitioner Type: Progress Notes Filed: 12/30/2021 3:30 PM Note Text: INTERVENTIONAL CARDIOLOGY SERVICE 6 Month Post-TAVR Follow-Up PRIMARY CARE PHYSICIAN: Tomy Hernandez [address] [place] [address] Chief Complaint Patient presents with: CARD Follow [...] short acting, (LOPRESSOR) 50 (more content not included)...[facility]04-19-2022 Miscellaneous Notes* Telephone Encounter - Tamika Dutta APRN.CNP - 12/30/2021 3:15 PM EDT Please schedule patient for 1 year post op TAVR Echo and follow up in appt with myself around 07/10/22. Thank you, Tamika Dutta APRN.CNP documented in this encounterCleveland Clinic [facility]04-19-2022 Instructions* Patient Instructions* Tamika Dutta APRN.CNP - [...] risk for heart failure. documented in this encounterCleveland Clinic [facility]04-19-2022 History of Present illness Narrative* Tamika Dutta APRN.CNP - 12/30/2021 2:00 PM EDT Images from the original note were not included. INTERVENTIONAL CARDIOLOGY SERVICE 6 Month Post-TAVR Follow-Up PRIMARY CARE PHYSICIAN: Tomy Hernandez [address] [place] [address] Chief Complaint Patient presents with: CARD Follow [...] injection (DEFINITY) INTRAVENOUS DIRECTED PRN Tamika Dutta APRN.ASSOCIATE PROFESSOR OF HISTORY sodium chloride 0.9 % (flush) 10 mL (BD POSIFLUSH) 10 mL INTRAVENOUS DIRECTED PRN Tamika Dutta APRN.[place] sodium chloride 0.9 % (flush) 10 mL (BD POSIFLUSH) 10 mL INTRAVENOUS DIRECTED PRN Tamika Dutta APRN.ASSOCIATE PROFESSOR OF HISTORY sodium chloride 0.9 % (flush) 10 mL (BD POSIFLUSH) 10 mL INTRAVENOUS DIRECTED PRN Tamika Dutta APRN.[place]USTO Objective Physical Examination: Vitals:BP 138/64 Pulse 78 [...] 5. Successful placement and removal of a Quinn Cerebral Embolic Protection device via the right [...] II today - Cardiac Rehab Completed in [place] - Continue ASA 81 mg. Patient is [...] AM PAGER/CONTACT #: [phone] documented in this [facility]04-19-2022 Nurse Note* Teena Sarah MA - 12/30/2021 1:45 PM EDT Patient denies any cardiac issues or symptoms. 5 METER WALK 1. 4.31 SECONDS 2. 4.56 3. 4.48 documented in this encounterCleveland Clinic [facility]04-06-2022 Miscellaneous Notes* Telephone Encounter - Anabella Steve [...] you. Anabella Steve LPN documented in this encounterCleveland Clinic [facility]12-14-2021 NoteHNO ID: [id number] Author: Tamika Dutta APRN.[place]GUSTO Service: ? Author Type: Nurse Practitioner Type: Progress Notes Filed: 08/26/2021 3:59 PM Note Text: INTERVENTIONAL CARDIOLOGY SERVICE 1 Month Post-TAVR Follow-Up PRIMARY CARE PHYSICIAN: Tomy Hernandez [address] [place] [address] Chief Complaint Patient presents with: CARD Follow [...] He plans to start Cardiac Rehab in [place]. He has a follow up appointment with [...] daily. - apixaban (ELIQU (more content not included)...[facility] 08-22-2021 History of Past illness Narrative* [...] of this encounter (statuses as of 12/17/2021) [facility] History of Past illness Narrative* Problem Noted [...] 09/30/2011 04/13/2016 [facility]counter [facility] 06/16/2011 09/16/2021 ERECTILE DYSFUNCTION 09/09/2006 04/13/2016 Other and unspecified hyperlipidemia 02/24/2006 04/13/2016 Personal history of tobacco use, presenting hazards to health 08/26/2005 04/13/2016 OVERWEIGHT 05/28/2005 04/08/2015 Unspecified disorder of prostate 05/28/2005 04/13/2016 Elevated prostate specific antigen (PSA) 09/16/2021 documented as of this encounter (statuses as of 12/31/2021) [facility] History of Past illness Narrative* Problem Noted [...] 09/30/2011 04/13/2016 Encounter for preprocedural cardiovascular exam[facility] 06/16/2011 09/16/2021 ERECTILE DYSFUNCTION 09/09/2006 04/13/2016 Other and unspecified hyperlipidemia 02/24/2006 04/13/2016 Personal history of tobacco use, presenting hazards to health 08/26/2005 04/13/2016 OVERWEIGHT 05/28/2005 04/08/2015 Unspecified disorder of prostate 05/28/2005 04/13/2016 Elevated prostate specific antigen (PSA) 09/16/2021 documented as of this encounter (statuses as of 01/01/2022) [facility] History of Past illness Narrative* Problem Noted [...] 09/30/2011 04/13/2016 Encounter for preprocedural cardiovascular exam[facility] 06/16/2011 09/16/2021 ERECTILE DYSFUNCTION 09/09/2006 04/13/2016 Other and unspecified hyperlipidemia 02/24/2006 04/13/2016 Personal history of tobacco use, presenting hazards to health 08/26/2005 04/13/2016 OVERWEIGHT 05/28/2005 04/08/2015 Unspecified disorder of prostate 05/28/2005 04/13/2016 Elevated prostate specific antigen (PSA) 09/16/2021 documented as of this encounter (statuses as of 01/13/2022) [facility] of Past illness Narrative* Problem Noted [...] 09/30/2011 04/13/2016 Encounter for preprocedural cardiovascular exam[facility] 06/16/2011 09/16/2021 ERECTILE DYSFUNCTION 09/09/2006 04/13/2016 Other and unspecified hyperlipidemia 02/24/2006 04/13/2016 Personal history of tobacco use, presenting hazards to health 08/26/2005 04/13/2016 OVERWEIGHT 05/28/2005 04/08/2015 Unspecified disorder of prostate 05/28/2005 04/13/2016 Elevated prostate specific antigen (PSA) 09/16/2021 documented as of this encounter (statuses as of 01/23/2022) [facility] of [facility] illness Narrative* Problem Noted [...] 09/30/2011 04/13/2016 Encounter for preprocedural cardiovascular exam[facility] 06/16/2011 09/16/2021 ERECTILE DYSFUNCTION 09/09/2006 04/13/2016 Other and unspecified hyperlipidemia 02/24/2006 04/13/2016 Personal history of tobacco use, presenting hazards to health 08/26/2005 04/13/2016 OVERWEIGHT 05/28/2005 04/08/2015 Unspecified disorder of prostate 05/28/2005 04/13/2016 Elevated prostate specific antigen (PSA) 09/16/2021 documented as of this encounter (statuses as of 01/26/2022) [facility] of [facility] Narrative* Problem Noted [...] 09/30/2011 04/13/2016 Encounter for preprocedural cardiovascular exam[facility] 06/16/2011 09/16/2021 ERECTILE DYSFUNCTION 09/09/2006 04/13/2016 Other and unspecified hyperlipidemia 02/24/2006 04/13/2016 Personal history of tobacco use, presenting hazards to health 08/26/2005 04/13/2016 OVERWEIGHT 05/28/2005 04/08/2015 Unspecified disorder of prostate 05/28/2005 04/13/2016 Elevated prostate specific antigen (PSA) 09/16/2021 documented as of this encounter (statuses as of 02/10/2022) [facility] of Past illness Narrative* Problem Noted [...] 09/30/2011 04/13/2016 Encounter for preprocedural cardiovascular exam[facility] 06/16/2011 09/16/2021 ERECTILE DYSFUNCTION 09/09/2006 04/13/2016 Other and unspecified hyperlipidemia 02/24/2006 04/13/2016 Personal history of tobacco use, presenting hazards to health 08/26/2005 04/13/2016 OVERWEIGHT 05/28/2005 04/08/2015 Unspecified disorder of prostate 05/28/2005 04/13/2016 Elevated prostate specific antigen (PSA) 09/16/2021 documented as of this encounter (statuses as of 02/17/2022) [facility] of [facility] Narrative* Problem Noted [...] of this encounter (statuses as of 02/25/2022) [facility] of Past illness Narrative* Problem Noted Date Resolved Date Dependence on continuous supplemental oxygen 06/202109/16/2021 Obesity (BMI 35.0-39.9 without comorbidity) 12/202003/13/2022 Venous stasis ulcer of calf without varicose vei ns 04/28/2021 09/16/2021 Adenopathy, hilar 04/13/2016 01/27/2018 Overview: Right side. Dr. Bran Russell Adenoma of left adrenal gland 04/13/2016 Urinary retention 07/25/2012 01/27/2018 Tobacco use 03/18/2012 04/13/2016 Benign neoplasm of rectum and anal canal 012 04/13/2016 Irregular heart rate 09/30/2011 04/13/2016 Encounter for preprocedural cardiovascular exam[facility] 06/16/2011 09/16/2021 ERECTILE DYSFUNCTION 09/09/2006 04/13/2016 Other and unspecified hyperlipidemia 02/24/2006 04/13/2016 Personal history of tobacco use, presenting hazards to health 08/26/2005 04/13/2016 OVERWEIGHT 05/28/2005 04/08/2015 Unspecified disorder of prostate 05/28/2005 04/13/2016 Elevated prostate specific antigen (PSA) 09/16/2021 documented as of this encounter (statuses as of 03/13/2022) [facility] of Past illness Narrative* Problem Noted [...] 09/30/2011 04/13/2016 Encounter for preprocedural cardiovascular exam[facility] 06/16/2011 09/16/2021 ERECTILE DYSFUNCTION 09/09/2006 04/13/2016 Other and unspecified hyperlipidemia 02/24/2006 04/13/2016 Personal history of tobacco use, presenting hazards to health 08/26/2005 04/13/2016 OVERWEIGHT 05/28/2005 04/08/2015 Unspecified disorder of prostate 05/28/2005 04/13/2016 Elevated prostate specific antigen (PSA) 09/16/2021 documented as of this encounter (statuses as of 03/18/2022) [facility] of Past illness Narrative* Problem Noted Date Resolved Date Dependence on continuous supplemental oxygen 06/202109/16/2021 Obesity (BMI 35.0-39.9 without comorbidity) 1112/202003/13/2022 Adenopathy, hilar 04/13/2016 01/27/2018 Overview: Right side. Dr. Bran Russell Adenoma of left adrenal gland 04/13/2016 Urinary retention 07/25/2012 01/27/2018 Tobacco use 03/18/2012 04/13/2016 Benign neoplasm of rectum and anal canal 012 04/13/2016 Irregular heart rate 09/30/2011 04/13/2016 Encounter for preprocedural cardiovascular exam[facility] 06/16/2011 09/16/2021 ERECTILE DYSFUNCTION 09/09/2006 04/13/2016 Other and unspecified hyperlipidemia 02/24/2006 04/13/2016 Personal history of tobacco use, presenting hazards to health 08/26/2005 04/13/2016 OVERWEIGHT 05/28/2005 04/08/2015 Unspecified disorder of prostate 05/28/2005 04/13/2016 Elevated prostate specific antigen (PSA) 09/16/2021 documented as of this encounter (statuses as of 03/18/2022) [facility] Narrative* Problem Noted [...] 09/30/2011 04/13/2016 Encounter for preprocedural cardiovascular exam[facility] 06/16/2011 09/16/2021 ERECTILE DYSFUNCTION 09/09/2006 04/13/2016 Other and unspecified hyperlipidemia 02/24/2006 04/13/2016 Personal history of tobacco use, presenting hazards to health 08/26/2005 04/13/2016 OVERWEIGHT 05/28/2005 04/08/2015 Unspecified disorder of prostate 05/28/2005 04/13/2016 Elevated prostate specific antigen (PSA) 09/16/2021 documented as of this encounter (statuses as of 03/23/2022) [facility] Narrative* Problem Noted [...] of this encounter (statuses as of 04/02/2022) [facility] of Past illness Narrative* Problem Noted [...] 09/30/2011 04/13/2016 Encounter for preprocedural cardiovascular exam[facility] 06/16/2011 09/16/2021 ERECTILE DYSFUNCTION 09/09/2006 04/13/2016 Other and unspecified hyperlipidemia 02/24/2006 04/13/2016 Personal history of tobacco use, presenting hazards to health 08/26/2005 04/13/2016 OVERWEIGHT 05/28/2005 04/08/2015 Unspecified disorder of prostate 05/28/2005 04/13/2016 Elevated prostate specific antigen (PSA) 09/16/2021 documented as of this encounter (statuses as of 04/20/2022) [facility] illness Narrative* Problem Noted [...] 09/30/2011 04/13/2016 Encounter for preprocedural cardiovascular exam[facility] 06/16/2011 09/16/2021 ERECTILE DYSFUNCTION 09/09/2006 04/13/2016 Other and unspecified hyperlipidemia 02/24/2006 04/13/2016 Personal history of tobacco use, presenting hazards to health 08/26/2005 04/13/2016 OVERWEIGHT 05/28/2005 04/08/2015 Unspecified disorder of prostate 05/28/2005 04/13/2016 Elevated prostate specific antigen (PSA) 09/16/2021 documented as of this encounter (statuses as of 05/08/2022) [facility]12-10-2021 History of Past illness Narrative* Problem Noted [...] 09/30/2011 04/13/2016 Encounter for preprocedural cardiovascular exam[facility] 06/16/2011 09/16/2021 ERECTILE DYSFUNCTION 09/09/2006 04/13/2016 Other and unspecified hyperlipidemia 02/24/2006 04/13/2016 Personal history of tobacco use, presenting hazards to health 08/26/2005 04/13/2016 OVERWEIGHT 05/28/2005 04/08/2015 Unspecified disorder of prostate 05/28/2005 04/13/2016 Elevated prostate specific antigen (PSA) 09/16/2021 documented as of this encounter (statuses as of 06/17/2022) [facility]12-10-[facility]21 History of Past illness Narrative* Problem Noted Date Resolved Date Dependence on continuous supplemental oxygen 06/202109/16/2021 Adenopathy, hilar 04/13/2016 01/27/2018 Overview: Right side. Dr. Bran Russell Adenoma of left adrenal gland 04/13/2016 Urinary retention 07/25/2012 01/27/2018 Tobacco use 03/18/2012 04/13/2016 Benign neoplasm of rectum and anal canal 012 04/13/2016 Irregular heart rate 09/30/2011 04/13/2016 Encounter for preprocedural cardiovascular exami [facility] 06/16/2011 09/16/2021 ERECTILE DYSFUNCTION 09/09/2006 04/13/2016 Other and unspecified hyperlipidemia 02/24/2006 04/13/2016 Personal history of tobacco use, presenting hazards to health 08/26/2005 04/13/2016 OVERWEIGHT 05/28/2005 04/08/2015 Unspecified disorder of prostate 05/28/2005 04/13/2016 Elevated prostate specific antigen (PSA) 09/16/2021 documented as of this encounter (statuses as of 06/30/2022) [facility]12[facility] History of Past illness Narrative* Problem Noted Date Resolved Date Dependence on continuous supplemental oxygen 06/202109/16/2021 Adenopathy, hilar 04/13/2016 01/27/2018 Overview: Right side. Dr. Bran Russell Adenoma of left adrenal gland 04/13/2016 Urinary retention 07/25/2012 01/27/2018 Tobacco use 03/18/2012 04/13/2016 Benign neoplasm of rectum and anal canal 012 04/13/2016 Irregular heart rate 09/30/2011 04/13/2016 Encounter for preprocedural cardiovascular exami [facility] 06/16/2011 09/16/2021 ERECTILE DYSFUNCTION 09/09/2006 04/13/2016 Other and unspecified hyperlipidemia 02/24/2006 04/13/2016 Personal history of tobacco use, presenting hazards to health 08/26/2005 04/13/2016 OVERWEIGHT 05/28/2005 04/08/2015 Unspecified disorder of prostate 05/28/2005 04/13/2016 Elevated prostate specific antigen (PSA) 09/16/2021 documented as of this encounter (statuses as of 07/17/2022) [facility]12-10-[facility] History of Past illness Narrative* Problem Noted Date Resolved Date Dependence on continuous supplemental oxygen 06/202109/16/2021 Adenopathy, hilar 04/13/2016 01/27/2018 Overview: Right side. Dr. Bran Russell Adenoma of left adrenal gland 04/13/2016 Urinary retention 07/25/2012 01/27/2018 Tobacco use 03/18/2012 04/13/2016 Benign neoplasm of rectum and anal canal 012 04/13/2016 Irregular heart rate 09/30/2011 04/13/2016 Encounter for preprocedural cardiovascular exam[facility] 06/16/2011 09/16/2021 ERECTILE DYSFUNCTION 09/09/2006 04/13/2016 Other and unspecified hyperlipidemia 02/24/2006 04/13/2016 Personal history of tobacco use, presenting hazards to health 08/26/2005 04/13/2016 OVERWEIGHT 05/28/2005 04/08/2015 Unspecified disorder of prostate 05/28/2005 04/13/2016 Elevated prostate specific antigen (PSA) 09/16/2021 documented as of this encounter (statuses as of 2022) [facility]12-10[facility] History of Past illness Narrative* Problem Noted Date Resolved Date Dependence on continuous supplemental oxygen 06/202109/16/2021 Adenopathy, hilar 04/13/2016 01/27/2018 Overview: Right side. Dr. Bran Russell Adenoma of left adrenal gland 04/13/2016 Urinary retention 07/25/2012 01/27/2018 Tobacco use 03/18/2012 04/13/2016 Benign neoplasm of rectum and anal canal 012 04/13/2016 Irregular heart rate 09/30/2011 04/13/2016 Encounter for preprocedural cardiovascular exam[facility] 06/16/2011 09/16/2021 ERECTILE DYSFUNCTION 09/09/2006 04/13/2016 Other and unspecified hyperlipidemia 02/24/2006 04/13/2016 Personal history of tobacco use, presenting hazards to health 08/26/2005 04/13/2016 OVERWEIGHT 05/28/2005 04/08/2015 Unspecified disorder of prostate 05/28/2005 04/13/2016 Elevated prostate specific antigen (PSA) 09/16/2021 documented as of this encounter (statuses as of 09/21/2022) [facility]12[facility] History of Past illness Narrative* Problem Noted Date Resolved Date Dependence on continuous supplemental oxygen 06/202109/16/2021 Adenopathy, lubnaar 04/13/2016 01/27/2018 Overview: Right side. Dr. Bran Russell Adenoma of left adrenal gland 04/13/2016 Urinary retention 07/25/2012 01/27/2018 Tobacco use 03/18/2012 04/13/2016 Benign neoplasm of rectum and anal canal 012 04/13/2016 Irregular heart rate 09/30/2011 04/13/2016 Encounter for preprocedural cardiovascular exam[facility] 06/16/2011 09/16/2021 ERECTILE DYSFUNCTION 09/09/2006 04/13/2016 Other and unspecified hyperlipidemia 02/24/2006 04/13/2016 Personal history of tobacco use, presenting hazards to health 08/26/2005 04/13/2016 OVERWEIGHT 05/28/2005 04/08/2015 Unspecified disorder of prostate 05/28/2005 04/13/2016 Elevated prostate specific antigen (PSA) 09/16/2021 documented as of this encounter (statuses as of 10/13/2022) [facility]12-10-[facility] History of Past illness Narrative* Problem Noted Date Resolved Date Dependence on continuous supplemental oxygen 06/202109/16/2021 Adenopathy, hilar 04/13/2016 01/27/2018 Overview: Right side. Dr. Bran Russell Adenoma of left adrenal gland 04/13/2016 Urinary retention 07/25/2012 01/27/2018 Tobacco use 03/18/2012 04/13/2016 Benign neoplasm of rectum and anal canal 012 04/13/2016 Irregular heart rate 09/30/2011 04/13/2016 Encounter for preprocedural cardiovascular exam[facility] 06/16/2011 09/16/2021 ERECTILE DYSFUNCTION 09/09/2006 04/13/2016 Other and unspecified hyperlipidemia 02/24/2006 04/13/2016 Personal history of tobacco use, presenting hazards to health 08/26/2005 04/13/2016 OVERWEIGHT 05/28/2005 04/08/2015 Unspecified disorder of prostate 05/28/2005 04/13/2016 Elevated prostate specific antigen (PSA) 09/16/2021 documented as of this encounter (statuses as of 10/23/2022) [facility]12-10-[facility] History of Past illness Narrative* Problem Noted Date Resolved Date Dependence on continuous supplemental oxygen 06/202109/16/2021 Adenopathy, hilar 04/13/2016 01/27/2018 Overview: Right side. Dr. Bran Russell Adenoma of left adrenal gland 04/13/2016 Urinary retention 07/25/2012 01/27/2018 Tobacco use 03/18/2012 04/13/2016 Benign neoplasm of rectum and anal canal 012 04/13/2016 Irregular heart rate 09/30/2011 04/13/2016 Encounter for preprocedural cardiovascular exam[facility] 06/16/2011 09/16/2021 ERECTILE DYSFUNCTION 09/09/2006 04/13/2016 Other and unspecified hyperlipidemia 02/24/2006 04/13/2016 Personal history of tobacco use, presenting hazards to health 08/26/2005 04/13/2016 OVERWEIGHT 05/28/2005 04/08/2015 Unspecified disorder of prostate 05/28/2005 04/13/2016 Elevated prostate specific antigen (PSA) 09/16/2021 documented as of this encounter (statuses as of 11/23/2022) [facility]12-10-2021 History of Past illness Narrative* Problem Noted Date Resolved Date Dependence on continuous supplemental oxygen 06/202109/16/2021 Adenopathy, hilar 04/13/2016 01/27/2018 Overview: Right side. Dr. Bran Russell Adenoma of left adrenal gland 04/13/2016 Urinary retention 07/25/2012 01/27/2018 Tobacco use 03/18/2012 04/13/2016 Benign neoplasm of rectum and anal canal 012 04/13/2016 Irregular heart rate 09/30/2011 04/13/2016 Encounter for preprocedural cardiovascular exam[facility] 06/16/2011 09/16/2021 ERECTILE DYSFUNCTION 09/09/2006 04/13/2016 Other and unspecified hyperlipidemia 02/24/2006 04/13/2016 Personal history of tobacco use, presenting hazards to health 08/26/2005 04/13/2016 OVERWEIGHT 05/28/2005 04/08/2015 Unspecified disorder of prostate 05/28/2005 04/13/2016 Elevated prostate specific antigen (PSA) 09/16/2021 documented as of this encounter (statuses as of 01/14/2023) [facility]12[facility] History of Past illness Narrative* Problem Noted [...] of this encounter (statuses as of 02/12/2023) [facility]12[facility]10[facility] History of Past illness Narrative* Problem Noted [...] of this encounter (statuses as of 03/23/2023) [facility]12-10-[facility] History of Past illness Narrative* Problem Noted [...] of this encounter (statuses as of 05/25/2023) [facility]12[facility]10-[facility] History of Past illness Narrative* Problem Noted [...] of this encounter (statuses as of 08/12/2023) [facility]12[facility] History of Past illness Narrative* Problem Noted [...] of this encounter (statuses as of 08/17/2023) [facility]12-10-[facility] History of Past illness Narrative* Problem Noted [...] as of this encounter (statuses as of 10/19/2023) [facility]12-10-[facility] History of Past illness Narrative* Problem Noted [...] as of this encounter (statuses as of 10/26/2023) [facility]12[facility]10-[facility] History of Past illness Narrative* Problem Noted [...] as of this encounter (statuses as of 11/01/2023) [facility]12-10-[facility]21 History of Past illness Narrative* Problem Noted [...] cardiovascular examination 06/16/2011 09/16/2021 ERECTILE DYSFUNCTION 09/09/2006 08/01/2 016 Other and unspecified hyperlipidemia 02/24/2006 04/13/2016 Personal history of tobacco use, presenting hazards to health 08/26/2005 04/13/2016 OVERWEIGHT 05/28/2005 04/08/2015 Unspecified disorder of prostate 05/28/2005 04/13/2016 Elevated prostate specific antigen (PSA) 09/16/2021 documented as of this encounter (statuses as of 11/04/2023) [facility]11-04-2021 NoteHNO ID: [id number] Author: Tamika Dutta APRN.ASSOCIATE PROFESSOR OF HISTORY Service: ? Author Type: Nurse Practitioner Type: Progress Notes Filed: 07/17/2021 2:12 PM Note Text: INTERVENTIONAL CARDIOLOGY SERVICE 1 Week Post-TAVR Follow-Up PRIMARY CARE PHYSICIAN: Tomy Hernandez [address] [place] [address] Chief Complaint Patient presents with: Cardiology Follow [...] - furosemide (LASIX) 4 (more content not included)...[facility]10-29-2021 NoteHNO ID: [id number] Author: Eldon Mayer MD Service: Cardiovascular Medicine [...] 2L Home O2 ? Patient presented to [facility] on 07/10 for elective transcatheter aortic [...] which is his baseline. 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, acute Hyperlipidemia chronic Hypertension chronic Nonrheumatic tricuspid (valve) insufficiency chronic Persistent atrial fibrillation chronic [facility] Work Phone: 1(350) 709-374110-01-2021 Evaluation note* Diagnosis Onset Date Resolution Status 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, acute Hyperlipidemia chronic Hypertension chronic Nonrheumatic tricuspid (valve) insufficiency chronic Persistent atrial fibrillation chronic [facility] Work Phone: 1(917) 988-724410-01-2021 Evaluation note* Diagnosis Onset Date Resolution Status 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, acute Hyperlipidemia chronic Hypertension chronic Nonrheumatic tricuspid (valve) insufficiency chronic Persistent atrial fibrillation chronic Osteoarthritis of left knee acute [facility] Work Phone: 1(189) 149-279010-01-2021 Evaluation note* Diagnosis Onset Date Resolution Status 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, acute Hyperlipidemia chronic Hypertension chronic Nonrheumatic tricuspid (valve) insufficiency chronic Persistent atrial fibrillation chronic Hx of adenomatous colonic polyps acute [facility] Work Phone: 1(737) 667-863110-01-2021 Evaluation note* Diagnosis Onset Date Resolution Status 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, acute Hyperlipidemia chronic Hypertension chronic Persistent atrial fibrillation chronic [facility] Work Phone: 1(196) 799-712510-01-2021 Evaluation note* Diagnosis Onset Date Resolution Status 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, acute Hyperlipidemia chronic Hypertension chronic Persistent atrial fibrillation chronic Anticoagulant long-term use acute Hx of adenomatous colonic polyps acute [facility] Work Phone: 1(332) 952-450210-01-2021 Evaluation note* Diagnosis Onset Date Resolution Status 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, acute Preoperative cardiovascular examination acute Hyperlipidemia chronic Hypertension chronic Persistent atrial fibrillation chronic Status post total left knee replacement acute Anticoagulant long-term use acute Atherosclerotic heart diseas e of [place] coronary artery without angina pectoris acute Atrial fibrillation with RVR acute Carcamo phlebectatica paraplantaris acute Dyspnea on exertion acute History of pulmonary embolism acute History of TIA (transient ischemic attack) acute 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, acute Hx of adenomatous colonic polyps acute Left leg swelling acute Left-sided weakness acute Leg edema, left acute Non-rheumatic mitral valve stenosis acute Obesity (BMI 30-39.9) acute Osteoarthritis of left knee acute Status post total left knee replacement acute Venous stasis dermatitis acu te Venous ulcer of left leg acu te Atrial fibrillation chronic BPH (benign prostatic hyperplasia) chronic Chronic venous insufficiency chronic Emphysema of lung chronic Emphysema with chronic bronchitis chronic Hyperlipidemia chronic Hypertension chronic Nonrheumatic aortic (valve) stenosis chronic Nonrheumatic tricuspid (valve) insufficiency chronic NOAM (obstructive sleep apnea) chronic PAH (pulmonary artery hypertension) chronic Persistent atrial fibrillation chronic 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 History of left cataract surgery resolved [facility] Work Phone: [phone]) 566-528910-01-2021 Evaluation note* Diagnosis Onset Date Resolution Status 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, acute Preoperative cardiovascular examination acute Hyperlipidemia chronic Hypertension chronic Persistent atrial fibrillation chronic Status post total left knee replacement acute Anticoagulant long-term use acute Atherosclerotic heart diseas e of [place] coronary artery without angina pectoris acute Atrial fibrillation with RVR acute Carcamo phlebectatica paraplantaris acute Dyspnea on exertion acute History of pulmonary embolism acute History of TIA (transient ischemic attack) acute 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, acute Hx of adenomatous colonic polyps acute Left leg swelling acute Left-sided weakness acute Leg edema, left acute Non-rheumatic mitral valve stenosis acute Obesity (BMI 30-39.9) acute Osteoarthritis of left knee acute Status post total left knee replacement acute Venous stasis dermatitis acu te Venous ulcer of left leg acu te Atrial fibrillation chronic BPH (benign prostatic hyperplasia) chronic Chronic venous insufficiency chronic Emphysema of lung chronic Emphysema with chronic bronchitis chronic Hyperlipidemia chronic Hypertension chronic Nonrheumatic aortic (valve) stenosis chronic Nonrheumatic tricuspid (valve) insufficiency chronic NOAM (obstructive sleep apnea) chronic PAH (pulmonary artery hypertension) chronic Persistent atrial fibrillation chronic 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 Isabela Dawkins DO LE/[id number] SSI File#: [id number] Verified/Reviewed by [facility] PATIENT NAME: JAVIER DEGROOT [address] [place], [place] [address]edie Albert MEDICAL REC #: [id number] [place] [address] ADMIT DATE: DISCHARGE DATE: ATTENDING PHY: Andrea Ashley MD documented in this encounterC[facility] History of Present illness Narrative* Isabela Dawkins [...] is to discharge home on Wednesday. Isabela Mckeon Chayoleon DO MAYERS/[id number] SSI File#: [id number] Verified/Reviewed by [facility] PATIENT NAME: JAVIER DEGROOT Dodie Albert MEDICAL REC #: [id number] [place] [address] ADMIT DATE: DISCHARGE DATE: ATTENDING PHY: Andrea Ashley MD documented in this encounterC[facility] History of Present illness Narrative* Isabela Mckeon ChayoleonDO - 11/16/2020 11:31 AM EST DATE OF [...] is to discharge home on Wednesday. Isabela DawkinsDO MAYERS/[id number] SSI File#: [id number] Verified/Reviewed by [facility] PATIENT NAME: JAVIER DEGROOT Dodie Albert MEDICAL REC #: [id number] [place] [id number] ADMIT DATE: DISCHARGE DATE: ATTENDING PHY: Andrea Ashley MD documented in this encounterC[facility] History of Present illness Narrative* Isabela Dawkins [...] PT, OT, rehab, and weaning. DO LEON Prater/[id number] SSI File#: [id number] Verified/Reviewed by [facility] PATIENT NAME: JAVIER DEGROOT Dr. Albert MEDICAL REC #: [id number] [place] [address] ADMIT DATE: DISCHARGE DATE: ATTENDING PHY: Andrea Ashley MD documented in this encounterC[facility] History of Present illness Narrative* Andrea Ashley [...] occupational therapy, rehab, antibiotics. Andrea Ashley MD RG/[id number] SSI File#: [id number] Verified/Reviewed by [facility] PATIENT NAME: JAVIER DEGROOT Dodie Albert MEDICAL REC #: [id number] [place] [address] ADMIT DATE: DISCHARGE DATE: ATTENDING PHY: Andrea Ashley MD documented in this encounterC[facility] History of Present illness Narrative* Isabela Dawkins DO - 11/12/2020 4:03 PM EST DATE OF [...] antibiotics, and we will continue to follow. Isabela Dawkins DO LE/[id number] SSI File#: [id number] Verified/Reviewed by [facility] PATIENT NAME: JAVIER DEGROOT Dodie Albert MEDICAL REC #: [id number] [place] [address] ADMIT DATE: DISCHARGE DATE: ATTENDING PHY: Andrea Ashley MD documented in this encounterC[facility] History of Present illness Narrative* Andrea Ashley [...] check a bladder scan. Andrea Ashley MD RG/[id number] SSI File#: [id number] Verified/Reviewed by [facility] PATIENT NAME: JAVIER DEGROOT [address] [facility] REC #: [id number] [place] [address] ADMIT DATE: DISCHARGE DATE: ATTENDING PHY: Andrea Ashley MD documented in this encounterC[facility] History of Present illness Narrative* Andrea Ashley [...] and there was negligible residual urine. Dr. Taylor is focusing on his phimosis as the [...] decisions regarding any circumcision. Andrea Ashley MD /[id number] SSI File#: [id number] Verified/Reviewed by [facility] PATIENT NAME: JAVIER DEGROOT Dodie Albert MEDICAL REC #: [id number] [place] [address] ADMIT DATE: DISCHARGE DATE: ATTENDING PHY: Andrea Ashley MD documented in this encounterC[facility] History of Present illness Narrative* Andrea Ashley [...] urethral meatus and foreskin. Andrea Ashley MD RG/[id number] SSI File#: [id number] Verified/Reviewed by [facility] PATIENT NAME: JAVIER DEGROOT [facility] REC #: [id number] [place] [address] ADMIT DATE: DISCHARGE DATE: ATTENDING PHY: Andrea Ashley MD documented in this encounterC[facility] History of Present illness Narrative* Isabeladax Dawkins, - 11/07/2020 2:03 PM EST DATE OF [...] to wean from oxygen as tolerated. Isabela Dawkins DO LE/[id number] SSI File#: [id number] Verified/Reviewed by [facility] PATIENT NAME: JAVIER DEGROOT [address] Albert MEDICAL REC #: [id number] [place] [address] ADMIT DATE: DISCHARGE DATE: ATTENDING PHY: Andrea Ashley MD documented in this encounterC[facility] History of Present illness Narrative* Isabela Dawkins [...] weaning. Cardiology to evaluate today as well. DO LEON Prater/[id number] SSI File#: [id number] Verified/Reviewed by [facility] PATIENT NAME: JAVIER DEGROOT [address] Dodie Albert MEDICAL REC #: [id number] [place] [address] ADMIT DATE: DISCHARGE DATE: ATTENDING PHY: Andrea Ashley MD documented in this encounterC[facility] History of Present illness Narrative* Isabela Dawkins [...] planning for discharge here soon. DO LEON Prater/[id number] SSI File#: [id number] Verified/Reviewed by [facility] PATIENT NAME: JAVIER DEGROOT [facility] REC #: [id number] [place] [address] ADMIT DATE: DISCHARGE DATE: ATTENDING PHY: Andrea Ashley MD documented in this encounterC[facility] History of Present illness Narrative* Andrea Ashley MD - 11/01/2020 11:09 AM EST DATE [...] and weaning as tolerated. Andrea Ashley MD RG/[id number] SSI File#: [id number] Verified/Reviewed by [facility] PATIENT NAME: JAVIER DEGROOT Dodie Albert MEDICAL REC #: [id number] [place] [address] ADMIT DATE: DISCHARGE DATE: ATTENDING PHY: Andrea Ashley MD documented in this encounterC[facility]02-[facility] History of Present illness Narrative* Isabela Mike Dawkins DO - 10/31/2020 2:44 PM EST [...] of care, PT, OT, rehabilitation, and weaning. Isabela Dawkins DO /[id number] SSI File#: [id number] CC: Andrea Ashley MD Verified/Reviewed by [facility] PATIENT NAME: JAVIER DEGROOT Dodie Albert MEDICAL REC #: [id number] [place] [address] ADMIT DATE: DISCHARGE DATE: ATTENDING PHY: Andrea Ashley MD documented in [facility] encounterC[facility] History of Present illness Narrative* Andrea Ashley [...] therapy, rehabilitation, and weaning. Andrea Ashley MD /[id number] SSI File#: [id number] Verified/Reviewed by [facility] PATIENT NAME: JAVIER DEGROOT Dr. Albert MEDICAL REC #: [id number] [place] [address] ADMIT DATE: DISCHARGE DATE: ATTENDING PHY: Andrea Ashley MD documented in this encounterC[facility] History of Present illness Narrative* Isabela Dawkins [...] OT, rehab, and weaning. Isabela Dawkins DO LE/[id number] SSI File#: [id number] Verified/Reviewed by [facility] PATIENT NAME: JAVIER DEGROOT Dodie Albert MEDICAL REC #: [id number] [place] [address] ADMIT DATE: DISCHARGE DATE: ATTENDING PHY: Andrea Ashley MD documented in this encounterC[facility]02-14-[facility] History of Present illness Narrative* Isabela Dawkins [...] OT, rehab and weaning. Isabela Dawkins DO LE/[id number] SSI File#: [id number] Verified/Reviewed by [facility] PATIENT NAME: JAVIER DEGROOT [address] [place] [address] Dr. Albert MEDICAL REC #: [id number] [place] [address] ADMIT DATE: DISCHARGE DATE: ATTENDING PHY: Andrea Ashley MD documented in this encounterC[facility] History of Present illness Narrative* Isabela Dawkins [...] PT, OT, rehab, weaning of his oxygen. DO LEON Prater/[id number] SSI File#: [id number] Verified/Reviewed by [facility] PATIENT NAME: JAVIER DEGROOT [address] Albert MEDICAL REC #: [id number] [place] [address] ADMIT DATE: DISCHARGE DATE: ATTENDING PHY: Andrea Ashley MD documented in this encounterC[facility]12-[facility]21 History of Present illness Narrative* Andrea Ashley [...] physical and occupational therapy, rehab, and weaning. MD YANELIS Gomes/[id number] SSI File#: [id number] Verified/Reviewed by [facility] PATIENT NAME: JAVIER DEGROOT Geriedie Dr. Albert MEDICAL REC #: [id number] [place] [address] ADMIT DATE: DISCHARGE DATE: ATTENDING PHY: Andrea Ashley MD documented in this encounterC[facility]02-11-[facility] History of Present illness Narrative* Isabela Dawkins [...] PT, OT, rehab, and weaning. DO LEON Prater/[id number] SSI File#: [id number] Verified/Reviewed by [facility] PATIENT NAME: JAVIER DEGROOT Geriedie Dr. Albert MEDICAL REC #: [id number] [place] [address] ADMIT DATE: DISCHARGE DATE: ATTENDING PHY: Andrea Ashley MD documented in this encounterC[facility]02-10-[facility] History of Present illness Narrative* Andrea Ashley [...] with physical and occupational therapy, rehab . Andrea Ashley MD RG/[id number] SSI File#: [id number] Verified/Reviewed by [facility] PATIENT NAME: JAVIER DEGROOT Dodie Albert MEDICAL REC #: [id number] [place] [address] ADMIT DATE: DISCHARGE DATE: ATTENDING PHY: Andrea Ashley MD documented in this encounterC[facility]02-09-[facility] History of Present illness Narrative* Isabela Dawkins, - 10/22/2020 1:37 PM EST DATE OF [...] OT, rehab and weaning. Isabela Dawkins DO LE/[id number] SSI File#: [id number] Verified/Reviewed by [facility] PATIENT NAME: JAVIER DEGROOT Dodie Albert MEDICAL REC #: [id number] [place] [address] ADMIT DATE: DISCHARGE DATE: ATTENDING PHY: Andrea Ashley MD documented in this encounterC[facility] History of Present illness Narrative* Isabela Dawkins [...] PT, OT, rehab and weaning. DO LEON Prater/[id number] SSI File#: [id number] Verified/Reviewed by [facility] PATIENT NAME: JAVIER DEGROOT Dodie Albert MEDICAL REC #: [id number] [place] [address] ADMIT DATE: DISCHARGE DATE: ATTENDING PHY: Andrea Ashley MD documented in this encounterC[facility]-07-[facility] History of Present illness Narrative* Andrea Ashley [...] support. Await pulmonary consult. Andrea Ashley MD RG/[id number] SSI File#: [id number] Verified/Reviewed by [facility] PATIENT NAME: JAVIER DEGROOT Dodie Albert MEDICAL REC #: [id number] [place] [address] ADMIT DATE: DISCHARGE DATE: ATTENDING PHY: Andrea Ashley MD documented in this encounterC[facility]* Diagnosis Benign prostatic hyperplasia with lower urinary tract symptoms, symptom details unspecified documented [facility] this encounter [facility]* Diagnosis S/P TAVR (transcatheter aortic valve replacement)- Primary Heart valve replaced by other means Chronic atrial fibrillation (HCC) Atrial fibrillation Obesity (BMI 35.0-39.9 without comorbidity) Obesity, unspecified documented [facility] this encounter [facility]* Diagnosis Wound of left lower extremity, initial encounter- Primary Need for vaccination Need for prophylactic vaccination and inoculation against unspecified single disease documented [facility] this encounter [facility]* Diagnosis Onset Date Resolution Status Bilateral pulmonary embolism chronic NOAM (obstructive sleep apnea) chronic PAH (pulmonary artery hypertension) chronic Persistent atrial fibrillation chronic Anticoagulant long-term use acute Positive colorectal cancer s creening using Cologuard test acute Persistent atrial fibrillation chronic 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, acute Hyperlipidemia chronic Hypertension chronic Nonrheumatic tricuspid (valve) insufficiency chronic Persistent atrial fibrillation [facility] Work Phone: Evaluation note* Diagnosis S/P TAVR (transcatheter aortic valve replacement)- Primary Heart valve replaced by other means Obesity (BMI 35.0-39.9 without comorbidity) Obesity, unspecified Primary hypertension Unspecified essential hypertension [facility]* Diagnosis Onset Date Resolution Status Anticoagulant long-term use acute Positive colorectal cancer s creening using Cologuard test acute Persistent atrial fibrillation chronic 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, acute Hyperlipidemia chronic Hypertension chronic Nonrheumatic tricuspid (valve) insufficiency chronic Persistent atrial fibrillation chronic Bilateral pulmonary embolism chronic NOAM (obstructive sleep apnea) chronic PAH (pulmonary artery hypertension) chronic Persistent atrial fibrillation [facility] Work Phone: Evaluation note* Diagnosis Benign prostatic hyperplasia with lower urinary tract symptoms, symptom details unspecified documented in this encounter [facility] note* Diagnosis Medicare annual wellness visit, subsequent- Primary Routine general medical examination at a [facility] care facility Centrilobular emphysema (HCC) Other [...] Unspecified essential hypertension [facility]* Diagnosis Preoperative examination- Primary Preoperative examination, unspecified Chronic atrial fibrillation (HCC) Atrial fibrillation Centrilobular emphysema (HCC) Other emphysema Nocturnal hypoxia Hypoxemia S/P TAVR (transcatheter aortic valve replacement) Heart valve replaced by other means Tremor of left hand documented in this encounter [facility]* Diagnosis Onset Date Resolution Status Anticoagulant long-term use acute Hx of adenomatous colonic polyps acute Bilateral pulmonary embolism chronic NOAM (obstructive sleep apnea) chronic PAH (pulmonary artery hypertension) chronic Persistent atrial fibrillation [facility] Work Phone: Evaluation note* Diagnosis Onset Date Resolution Status Bilateral pulmonary embolism chronic NOAM (obstructive sleep apnea) chronic PAH (pulmonary artery hypertension) chronic Persistent atrial fibrillation chronic 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, acute Preoperative cardiovascular examination acute Hyperlipidemia chronic Hypertension chronic Persistent atrial fibrillation chronic Status post total left knee replacement acute [facility] Work Phone: Evaluation note* Diagnosis Cellulitis of left lower extremity- Primary Cellulitis and abscess of leg, except foot Stasis ulcer of lower extremity, left (HCC) Stage 3a chronic kidney disease (HCC) Hyperlipidemia, unspecified hyperlipidemia type Impaired fasting glucose documented [facility] this encounter [facility]* Diagnosis Cellulitis of left lower extremity Cellulitis and abscess of leg, except foot documented in this encounter [facility]* Diagnosis Stasis ulcer of lower extremity, left (HCC)- Primary Primary hypertension Unspecified essential hypertension documented [facility] this encounter [facility]* Diagnosis Onset Date Resolution Status Anticoagulant long-term use acute Atherosclerotic heart diseas e of [place] coronary artery without angina pectoris acute Atrial fibrillation with RVR acute Carcamo phlebectatica paraplantaris acute Dyspnea on exertion acute History of pulmonary embolism acute History of TIA (transient ischemic attack) acute 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, acute Hx of adenomatous colonic polyps acute Left leg swelling acute Left-sided weakness acute Leg edema, left acute Non-rheumatic mitral valve stenosis acute Osteoarthritis of left knee acute Status post total left knee replacement acute Venous stasis dermatitis acu te Venous ulcer of left leg acu te Atrial fibrillation chronic BPH (benign prostatic hyperplasia) chronic Chronic venous insufficiency chronic Emphysema of lung chronic Emphysema with chronic bronchitis chronic Hyperlipidemia chronic Hypertension chronic Nonrheumatic aortic (valve) stenosis chronic Nonrheumatic tricuspid (valve) insufficiency chronic Obesity (BMI 30-39.9) chroni c NOAM (obstructive sleep apnea) chronic PAH (pulmonary artery hypertension) chronic Persistent atrial fibrillation chronic 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 History of left cataract surgery resolved Other specified peripheral vascular diseases acute Venous ulcer of left leg acu te Non-pressure chronic ulcer o f left ankle limited to breakdown of skin chronic [id number] chronic Bilateral pulmonary embolism chronic Obesity (BMI 30-39.9) chroni c NOAM (obstructive sleep apnea) chronic PAH (pulmonary artery hypertension) chronic Smoking greater than 40 pack years chronic 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 Tomy Hernandez MD Status:R [facility] Location: [place] [address] History and Physical Date of Admission: 06/09/23 OFFICE VISIT Date of Service: 05/18/23 MR#: [id number] Acct: [id number] Name: JAVIER DEGROOT Rep #: [id number] : 1945 Provider: Dr. Abida Sanchez MD Age/Sex: 77/M Location: [facility] Status: Signed Intake Vital Signs 03/11/2313:04 05/18/2312:52 Height 5 ft 7 in 5 ft 7 in Weight: 235 lb 8 oz 236 lb BMI 36.8 36.9 BP 132/69 H 152/66 H Blood Pressure Location Lt brachial Rt brachial Position Sitting Sitting Respiration 18 18 Pulse 62 77 Pulse Source Monitor Pulse Oximetry (%) 93 93 Oxygen Delivery Method room air room air Intake Visit Reasons: 6M RECALL LETTER- COLONOSCOPY Chief Complaint: 6 month recall colonoscopy Allergies lisinopril Adverse Reaction (Intermediate, Verified 05/18/23 12:53) cough Medications finasteride 5 mg tablet 5 mg PO DAILY prostate 09/24/15 [History Confirmed 05/18/23] tamsulosin 0.4 mg capsule (Flomax) 0.8 mg PO DAILY prostate 02/28/18 [History Confirmed 05/18/23] Disability Placard #1 ea 01/01/21 [Rx Confirmed 05/18/23] aspirin 81 mg capsule 81 mg PO DAILY 05/06/21 [History Confirmed 05/18/23] apixaban 5 mg tablet 5 mg PO BID blood thinner #180 tabs 10/01/22 [Rx Confirmed 05/18/23] atorvastatin 10 mg tablet 10 mg PO QDAY #90 tabs 01/19/23 [Rx Confirmed 05/18/23] diltiazem HCl 120 mg tablet 120 mg PO BID 90 days #180 tabs 10/01/22 [Rx Confirmed 05/18/23] furosemide 40 mg tablet 40 mg PO DAILY fluid #90 tabs 10/01/22 [Rx Confirmed 05/18/23] metoprolol tartrate 75 mg tablet 75 mg PO BID #180 tabs 10/01/22 [Rx Confirmed 05/18/23] potassium chloride 20 mEq tablet,extended release(part/cryst) (Klor-Con M) 20 meq PO DAILY #90 tabs 10/01/22 [Rx Confirmed 05/18/23] acetaminophen 325 mg tablet 650 mg PO DAILY arthritis in knees 11/27/22 [History Confirmed 05/18/23] amoxicillin 500 mg capsule 2,000 mg (4 x 500 mg) PO .COMPLEX #4 caps 03/11/23 [Rx Confirmed 05/18/23] PFSH Medical History Abrasion Arthritis Atherosclerotic heart disease of [place] coronary artery without angina pectoris Atrial fibrillation Bilateral pulmonary embolism BPH (benign prostatic hyperplasia) Cardiology follow-up encounter COPD (chronic obstructive pulmonary disease) COVID-19 (~09/2020) Dyspnea on exertion Easy bruising 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 Excessive bleeding Fever Former smoker High cholesterol History of atrial fibrillation History of CHF (congestive heart failure) History of COVID-19 History of echocardiogram History of edema History of left heart catheterization (LHC) (~05/06/21) History of transcatheter aortic valve replacement (TAVR) (~07/10/21) Hyperlipidemia Hypertension Left-sided weakness Non-rheumatic mitral valve stenosis Nonrheumatic aortic (valve) stenosis Nonrheumatic tricuspid (valve) insufficiency On home oxygen therapy NOAM (obstructive sleep apnea) Other secondary pulmonary hypertension Persistent atrial fibrillation Prostate disease Pulmonary embolism Solitary pulmonary nodule Stage 1 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 Wears dentures Wears glasses Wears hearing aid Surgical History H/O oral surgery History of colonoscopy (~2010) History of heart surgery History of left cataract surgery Family History Mother CVA (cerebral vascular accident) DiabetesOther Family history of CVA Social History Smoking Status: Former smoker Tobacco: How many years used: 40 how long ago did patient quit smokin second hand exposure: No alcohol intake: never substance use type: does not use caffeine: Yes Type: tea what type of physical activity do you participate in: none seatbelt use: always do you feel safe at home: Yes HPI HPI HPI: 77-year-old male presents for follow-up colonoscopy due to history of colon polyps. 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 Patient presents for repeat colonoscopy. Patient is on Eliquis which she is able to hold. ROS General General: Yes weight change and fatigue; No appetite, colon cancer, breast cancer or weakness HEENT HEENT: No difficulty swallowing, eye injury, eye surgery, swollen glands or hoarseness Endo Endocrine: No thyroid disease, diabetes mellitus, thyroid cancer, Hair loss, heat intolerance or cold intolerance Skin Skin: No rash or changing moles Musc Musculoskeletal: Yes arthritis and rheumatoid arthritis; No back problems, gout or joint pain Cardio Cardiovascular: Yes murmur, heart disease, atrial fibrillation, high blood pressure and heart stent; No pacemaker, heart attack, palpitations, shortness of breat with exertion or chest pain Psych Psychiatric: Yes anxiety; No depression or hearing voices Resp Respiratory: Yes shortness of breath, Yes sleep apnea, No cough, Yes COPD, No asthma, Yes emphysema and No wheezing Gastro Gastrointestinal: No abdominal pain, No nausea or vomiting, No diarrhea, Yes constipation, No blood in stool, No acid reflux, No hemorrhoids, No ulcers, No gallbladder problem and No black,tarry stools Ag Hematologic: Yes blood thinners, No blood disorders, No bleeding, No anemia and No blood clots Neuro Neurologic: No system reviewed and no additional complaints, except as documented, No as per HPI, No abnormal gait, No abnormal hearing, No abnormal movements, No abnormal speech, No behavioral changes, No burning sensations, No confusion, No convulsions, No disequilibrium, No dizziness, No localized weakness, No frequent falls, No headache(s), No lack of coordination, No loss ofvision, No memory loss, No numbness, No other visual disturbances, No radicular pain, No restless legs, No sensory deficit, No syncope, No tingling, No tremor(s), No weakness and No other Exam Const General: cooperative, healthy appearing, comfortable and no acute distress Neck Neck: normal visual inspection Resp Effort & Inspection: normal respiratory effort Cardio Rate: regular rate GI Inspection: non-distended Palpation: soft, no guarding and nontender Skin General: no rashes or lesions noted Neuro General: patient oriented x3 Psych Affect: normal affect Assessment and Plan Assessment and Plan (1) Hx of adenomatous colonic polyps: Status: Acute (2) Anticoagulant long-term use: Status: Acute Orders: Orders Colonoscopy 06/09/23 Plan I have discussed the above with the patient. I have offered the patient colonoscopy for evaluation. I have explained the risks/benefits of the procedure and described the procedure. I have discussed the risks with the patient, including but not limited to: infection, bleeding, perforation of the GI tract requiring emergency surgery, inability to complete the procedure, injury to any internal organs, complications of anesthesia, etc. - the patient understands and agrees to proceed. I have answered all the patient's questions to the patient's satisfaction and the patient has no further questions. The patient has been given instructions for the colon cleansing preparation. 1 day of clears, MiraLAX Dulcolax split prep. Abida Sanchez M.D. Pager: [phone] [facility] [address] [place] [address], [address] [place] [address] Office: [phone] Coding Level of Care Code Off vis,est,level 3 Diagnoses Hx of adenomatous colonic polyps Z86.010 Anticoagulant long-term use Z79.01 05/20/23 0950 <Electronically signed by Abida Sanchez MD> Date Abida Sanchez MD 06/09/23 0706 <Electronically signed by Abida Sanchez MD> Cosigner Signature (if applicable): CC: Dr. Abida Sanchez MD; Dr. Tomy Hernandez MD~ Signed ADDENDUM by Dr. Abida Sanchez MD on 06/09/23 at 0707 Addendum I have examined the patient and the H&P has been reviewed. There are no clinicalchanges since date of exam. 06/09/23 0707<Electronically signed by Abida Sanchez MD> Cosigner Signature (if applicable): cc: Dr. Abida Sanchez MD; Dr. Tomy Hernandez MD ~* Signed [facility] Work Phone: Reason for referral (narrative)* Outpatient Procedure (Routine) - Pending Review Specialty Diagnoses / Procedures Referred By Contac t Ref[facility] Diagnoses S/P TAVR (transcatheter aortic valve replacement) Procedures ECHO ECHO TTHRC R-T 2D W/WOM-MODE COMPL SPEC&COLR D Tamika Dutta APRN.ASSOCIATE PROFESSOR OF HISTORY [address] [place] [address] [facility] [address] [place] [address] Referral ID Status Reason Start Date Expiration Date Visits Requested Visits Authorized [id number] Pending Review Auto-Generat ed Referral 12/30/2021 12/30/2022 1 1 [facility] for referral (narrative)No reason for referral [facility] Work Phone: Summary Purpose Family History No Family History Records Found Relationship Condition Age at Onset Recorded Date/T jhoan Not Specified Family history of ce rebrovascular accident (CVA) Unknown mother Cerebrovascular accident (CVA) Unknown Diabetes mellitus Unknown Advance Directives No Advanced Directives Records Found Advance Directive Response Recorded Date/ Time Advance Directives No May 06, 2021 9:19am Living Will No September 18 10:41am Power of Contract Processor No September 18 022 10:41am Documents on File Type Date Recorded 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 Advance Directive(s) 07/10/2021 5:58 AM Latest Code Status on File Code Status Date Activated Date Inactivated Comments Full Code 07/10/2021 5:02 PM 07/11/2021 6:10 PM Full Code Order Discussed With: Patient Documents on File Type Date Recorded 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 Advance Directive(s) 07/10/2021 5:58 AM Latest Code Status on File Code Status Date Activated Date Inactivated Comments Full Code 07/10/2021 5:02 PM 07/11/2021 6:10 PM Advance Directive Response Recorded Date/ Time Advance Directives No May 06, 2021 9:19am Living Will No May 04 12:56pm Power of Contract Processor No May 04 12:56pm Advance Directive Response Recorded Date/ Time Advance Directives No May 06, 2021 8:19am Living Will No May 04 11:56am Power of Contract Processor No May 04 11:56am Advance Directive Response Recorded Date/ Time Advance Directives No May 06, 2021 9:19am Living Will No November 27, 2022 5:27pm Power of Contract Processor No November 27 5:27pm Latest Code Status on File Code Status Date Activated Date Inactivated Comments Full Code 07/10/2021 5:02 PM 07/11/2021 6:10 PM Question Answer Comments Full Code Order Discussed With: Patient Advance Directive Response Recorded Date/ Time Advance Directives No May 06, 2021 9:19am Living Will No June 07, 2023 11:32am Power of Contract Processor No May 11:32am Advance Directive Response Recorded Date/ Time Advance Directives No May 06, 2021 8:19am Living Will No August 12 023 11:04am Power of Contract Processor No August 12, 2023 11:04am Advance Directive Response Recorded Date/ Time Advance Directives No May 06, 2021 8:19am Living Will No September 01, 2 023 12:04pm Power of Contract Processor No September 01, 2023 12:04pm Advance Directive Response Recorded Date/ Time Advance Directives No May 06, 2021 9:19am Living Will No September 01, 2 023 1:04pm Power of Contract Processor No September 01, 2023 1:04pm Date Activated Date Inactivated Comments 07/10/2021 5:02 PM 07/11/2021 6:10 PM Question Answer Comments Full Code Order Discussed With: Patient Advance Directive Response Recorded Date/ Time Living Will No September 01, 2 023 1:04pm Do you have a Healthcare Power of Contract Processor? No September 01, 2023 1:04pm Advance Directives No May 06, 2021 9:19am Chief Complaint and Reason for Visit Chief Complaint post TAVR [facility] HEART VALVE REPLACEMENT TAVR - heart valve replacement TAVR - heart valve replacement 3 M FU TAVR - heart valve replacement Reason for Visit 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 pectoris History of transcatheter aortic valve replacement (TAVR) Leg edema Hyperlipidemia Hypertension Persistent atrial fibrillation 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 transcatheter aortic valve replacement (TAVR) Hyperlipidemia Hypertension Nonrheumatic tricuspid (valve) insufficiency Persistent atrial fibrillation Chief Complaint HEART VALVE REPLACEM ENT TAVR - heart valve replacement TAVR - heart valve replacement 3 M FU TAVR - heart valve replacement TAVR - heart valve replacement DYSPNEA ON EXERTION DYSPNEA ON EXERTION DYSPNEA ON EXERTION DYSPNEA ON EXERTION LEFT KNEE xray Reason for Visit 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 pectoris History of transcatheter aortic valve replacement (TAVR) Hyperlipidemia Hypertension Nonrheumatic tricuspid (valve) insufficiency Persistent atrial fibrillation Chief Complaint HEART VALVE REPLACEM ENT TAVR - heart valve replacement TAVR - heart valve replacement 3 M FU TAVR - heart valve replacement TAVR - heart valve replacement DYSPNEA ON EXERTION DYSPNEA ON EXERTION DYSPNEA ON EXERTION DYSPNEA ON EXERTION LEFT KNEE xray Reason for Visit 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 pectoris History of transcatheter aortic valve replacement (TAVR) Hyperlipidemia Hypertension Nonrheumatic tricuspid (valve) insufficiency Persistent atrial fibrillation Osteoarthritis of left knee Chief Complaint 6 M FU POSITIVE COLOGUARD 5 MO F/U Reason for Visit Bilateral pulmonary embolism NOAM (obstructive sleep apnea) PAH (pulmonary artery hypertension) Persistent atrial fibrillation Anticoagulant long-term use Positive colorectal cancer screening using Cologuard test Persistent atrial fibrillation 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 transcatheter aortic valve replacement (TAVR) Hyperlipidemia Hypertension Nonrheumatic tricuspid (valve) insufficiency Persistent atrial fibrillation Chief Complaint POSITIVE COLOGUARD 5 MO F/U 3 M FU E ORDER E ORDER Reason for Visit Anticoagulant long-t erm use Positive colorectal cancer screening using Cologuard test Persistent atrial fibrillation 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 transcatheter aortic valve replacement (TAVR) Hyperlipidemia Hypertension Nonrheumatic tricuspid (valve) insufficiency Persistent atrial fibrillation Bilateral pulmonary embolism NOAM (obstructive sleep apnea) PAH (pulmonary artery hypertension) Persistent atrial fibrillation Chief Complaint 1 Y FU 6 MONTH RECALL C-Scope Reason for Visit 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 pectoris History of transcatheter aortic valve replacement (TAVR) Hyperlipidemia Hypertension Nonrheumatic tricuspid (valve) insufficiency Persistent atrial fibrillation Hx of adenomatous colonic polyps Chief Complaint CONGESTION/COUGH/AGNES RT OF BREATH XRAY 6 M FU (WILL 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 TOP LIFT 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) PRE-OP PRE-OP Amb Documentation Reason for Visit Emphysema with chron ic bronchitis 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 transcatheter aortic valve replacement (TAVR) Hyperlipidemia Hypertension Persistent atrial fibrillation Chief Complaint 6 M FU (WILL WANT CS O) PRE-OP PRE-OP Amb Documentation 6M RECALL LETTER- COLONOSCOPY Amb Documentation Reason for Visit 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 pectoris History of transcatheter aortic valve replacement (TAVR) Hyperlipidemia Hypertension Persistent atrial fibrillation Anticoagulant long-term use Hx of adenomatous colonic polyps Chief Complaint PRE-OP PRE-OP Amb Documentation 6M RECALL LETTER- COLONOSCOPY Amb Documentation 6 M FU LT KNEE *HEATH* Reason for Visit Anticoagulant long-t erm use Hx of adenomatous colonic polyps Bilateral pulmonary embolism NOAM (obstructive sleep apnea) PAH (pulmonary artery hypertension) Persistent atrial fibrillation Chief Complaint Amb Documentation 6 M FU LT KNEE *HEATH* 6 M FU Total Knee Replacement Robotic Arm R/O DVT LT LEG Reason for Visit Bilateral pulmonary embolism NOAM (obstructive sleep apnea) PAH (pulmonary artery hypertension) Persistent atrial fibrillation 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 transcatheter aortic valve replacement (TAVR) Preoperative cardiovascular examination Hyperlipidemia Hypertension Persistent atrial fibrillation Status post total left knee replacement Chief Complaint LT KNEE *HEATH* 6 M FU Total Knee Replacement Robotic Arm R/O DVT LT LEG EVAL VALVE REPLACEMENT Amb Documentation wound Reason for Visit 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 pectoris History of transcatheter aortic valve replacement (TAVR) Preoperative cardiovascular examination Hyperlipidemia Hypertension Persistent atrial fibrillation Status post total left knee replacement Anticoagulant long-term use Atherosclerotic heart disease of [place] coronary artery without angina pectoris Atrial fibrillation with RVR Carcamo phlebectatica paraplantaris Dyspnea on exertion History of pulmonary embolism History of TIA (transient ischemic attack) History of transcatheter aortic valve replacement (TAVR) Hx of adenomatous colonic polyps Left leg swelling Left-sided weakness Leg edema, left Non-rheumatic mitral valve stenosis Obesity (BMI 30-39.9) Osteoarthritis of left knee Status post total left knee replacement Venous stasis dermatitis Venous ulcer of left leg Atrial fibrillation BPH (benign prostatic hyperplasia) Chronic venous insufficiency 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 Hyperlipidemia Hypertension Nonrheumatic aortic (valve) stenosis Nonrheumatic tricuspid (valve) insufficiency NOAM (obstructive sleep apnea) PAH (pulmonary artery hypertension) Persistent atrial fibrillation Stage 1 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 History of left cataract surgery Chief Complaint LT KNEE *HEATH* 6 M FU Total Knee Replacement Robotic Arm R/O DVT LT LEG EVAL VALVE REPLACEMENT Amb Documentation wound wound Reason for Visit 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 pectoris History of transcatheter aortic valve replacement (TAVR) Preoperative cardiovascular examination Hyperlipidemia Hypertension Persistent atrial fibrillation Status post total left knee replacement Anticoagulant long-term use Atherosclerotic heart disease of [place] coronary artery without angina pectoris Atrial fibrillation with RVR Carcamo phlebectatica paraplantaris Dyspnea on exertion History of pulmonary embolism History of TIA (transient ischemic attack) History of transcatheter aortic valve replacement (TAVR) Hx of adenomatous colonic polyps Left leg swelling Left-sided weakness Leg edema, left Non-rheumatic mitral valve stenosis Obesity (BMI 30-39.9) Osteoarthritis of left knee Status post total left knee replacement Venous stasis dermatitis Venous ulcer of left leg Atrial fibrillation BPH (benign prostatic hyperplasia) Chronic venous insufficiency 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 Hyperlipidemia Hypertension Nonrheumatic aortic (valve) stenosis Nonrheumatic tricuspid (valve) insufficiency NOAM (obstructive sleep apnea) PAH (pulmonary artery hypertension) Persistent atrial fibrillation Stage 1 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 History of left cataract surgery Other specified peripheral vascular diseases Venous ulcer of left leg 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 breakdown of skin [id number] Chief Complaint R/O DVT LT LEG EVAL VALVE REPLACEMENT Amb Documentation wound wound 6 m fu DYSPNEA DYSPNEA Reason for Visit Anticoagulant long-t erm use Atherosclerotic heart disease of [place] coronary artery without angina pectoris Atrial fibrillation with RVR Carcamo phlebectatica paraplantaris Dyspnea on exertion History of pulmonary embolism History of TIA (transient ischemic attack) History of transcatheter aortic valve replacement (TAVR) Hx of adenomatous colonic polyps Left leg swelling Left-sided weakness Leg edema, left Non-rheumatic mitral valve stenosis Osteoarthritis of left knee Status post total left knee replacement Venous stasis dermatitis Venous ulcer of left leg Atrial fibrillation BPH (benign prostatic hyperplasia) Chronic venous insufficiency 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 Hyperlipidemia Hypertension Nonrheumatic aortic (valve) stenosis Nonrheumatic tricuspid (valve) insufficiency Obesity (BMI 30-39.9) NOAM (obstructive sleep apnea) PAH (pulmonary artery hypertension) Persistent atrial fibrillation Stage 1 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 History of left cataract surgery Other specified peripheral vascular diseases Venous ulcer of left leg 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 breakdown of skin [id number] Bilateral pulmonary embolism Obesity (BMI 30-39.9) NOAM (obstructive sleep apnea) PAH (pulmonary artery hypertension) Smoking greater than 40 pack years Stage 1 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 Chief Complaint EVAL VALVE REPLACEME NT Amb Documentation wound wound 6 m fu DYSPNEA DYSPNEA DYSPNEA Reason for Visit Anticoagulant long-t erm use Atherosclerotic heart disease of [place] coronary artery without angina pectoris Atrial fibrillation with RVR Carcamo phlebectatica paraplantaris Dyspnea on exertion History of pulmonary embolism History of TIA (transient ischemic attack) History of transcatheter aortic valve replacement (TAVR) Hx of adenomatous colonic polyps Left leg swelling Left-sided weakness Leg edema, left Non-rheumatic mitral valve stenosis Osteoarthritis of left knee Status post total left knee replacement Venous stasis dermatitis Venous ulcer of left leg Atrial fibrillation BPH (benign prostatic hyperplasia) Chronic venous insufficiency 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 Hyperlipidemia Hypertension Nonrheumatic aortic (valve) stenosis Nonrheumatic tricuspid (valve) insufficiency Obesity (BMI 30-39.9) NOAM (obstructive sleep apnea) PAH (pulmonary artery hypertension) Persistent atrial fibrillation Stage 1 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 History of left cataract surgery Other specified peripheral vascular diseases Venous ulcer of left leg 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 breakdown of skin [id number] Bilateral pulmonary embolism Obesity (BMI 30-39.9) NOAM (obstructive sleep apnea) PAH (pulmonary artery hypertension) Smoking greater than 40 pack years Stage 1 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 Chief Complaint Admit Date 6 M FU December 15, 2024 2:43 pm 1 Y FU February 28, 2025 12:3 2pm Reason for Visit Admit Date Atherosclerotic heart diseas e of [place] coronary artery without angina pectoris December 15, 2024 2:43pm History of transcatheter aortic valve re placement (TAVR) December 15, 2024 2:43pm Hyperlipidemia December 15, 2024 2:43 pm Hypertension December 15, 2024 2:43 pm Persistent atrial fibrillation December 2:43pm Atrial fibrillation with RVR February 28, 2025 12:32pm Bilateral pulmonary embolism February 28, 2025 12:32pm Obesity (BMI 30-39.9) February 28, 2025 12 :32pm NOAM (obstructive sleep apnea) February 28, 2025 12:32pm Other secondary pulmonary hypertension J une 2024 12:32pm Reason for Referral Specialty Diagnoses / Procedures Referred By Jacobo gonzalez Referred To Contact General Surgery Diagnoses Positive colorectal cancer screening using Cologuard test Procedures CONSULT TO GENERAL SURGERY OFFICE/OUTPATIENT NEW HIGH MDM 60-74 MINUTES Tomy Hernandez MD [address] [place] [address] Referral ID Status Reason Start Date Expiration Date Visits Requested Visits Authorized [id number] Authorized PCP Requested Referral 03/18/2022 03/18/2023 1 1 Additional Source Comments (unrecognized sect ion and content) No Status Records FoundNo Status Records FoundNo Status Records FoundNo Status Records FoundNo Status Records Found INFORMATION SOURCE (unrecogn ized section and content) DATE CREATED AUTHOR 10/05/2020 [facility] ([place]) DATE CREATED AUTHOR AUTHOR'S ORGANIZ ATION 11/02/2021 [facility] DATE CREATED AUTHOR AUTHOR'S ORGANIZ ATION 07/05/2022 [facility] DATE CREATED AUTHOR AUTHOR'S ORGANIZ ATION 07/21/2024 [facility] DATE CREATED AUTHOR AUTHOR'S ORGANIZ ATION 04/22/2025 [facility] Goals (unrecognized section and content) Goals may be documented in a n alternate sectionGoals may be documented in an alternate sectionGoals may be documented in an alternate sectionGoals may be documented in an alternate sectionGoals may be documented in an alternate sectionGoals may be documented in an alternate sectionGoals may be documented in an alternate sectionGoals may be documented in an alternate section Source Comments (unrecognize d section and content) In the event this informatio n is protected by the Federal Confidentiality of Alcohol and Drug Abuse Patient Records regulations: The Federal rules restrict any use of the information to criminally investigate or prosecute any alcohol or drug abuse patient.[facility] the event this information is protected by the Federal Confidentiality of Alcohol and Drug Abuse Patient Records regulations: The Federal rules restrict any use of the information to criminally investigate or prosecute any alcohol or drug abuse patient.[facility] HospitalIn the event this information is protected by the Federal Confidentiality of Alcohol and Drug Abuse Patient Records regulations: The Federal rules restrict any use of the information to criminally investigate or prosecute any alcohol or drug abuse patient.[facility]In the event this information is protected by the Federal Confidentiality of Alcohol and Drug Abuse Patient Records regulations: The Federal rules restrict any use of the information to criminally investigate or prosecute any alcohol or drug abuse patient.[facility] HospitalIn the event this information is protected by the Federal Confidentiality of Alcohol and Drug Abuse Patient Records regulations: The Federal rules restrict any use of the information to criminally investigate or prosecute any alcohol or drug abuse patient.[facility] HospitalIn the event this information is protected by the Federal Confidentiality of Alcohol and Drug Abuse Patient Records regulations: The Federal rules restrict any use of the information to criminally investigate or prosecute any alcohol or drug abuse patient.[facility] HospitalIn the event this information is protected by the Federal Confidentiality of Alcohol and Drug Abuse Patient Records regulations: The Federal rules restrict any use of the information to criminally investigate or prosecute any alcohol or drug abuse patient.[facility] HospitalIn the event this information is protected by the Federal Confidentiality of Alcohol and Drug Abuse Patient Records regulations: The Federal rules restrict any use of the information to criminally investigate or prosecute any alcohol or drug abuse patient.[facility] HospitalIn the event this information is protected by the Federal Confidentiality of Alcohol and Drug Abuse Patient Records regulations: The Federal rules restrict any use of the information to criminally investigate or prosecute any alcohol or drug abuse patient.[facility] HospitalIn the event this information is protected by the Federal Confidentiality of Alcohol and Drug Abuse Patient Records regulations: The Federal rules restrict any use of the information to criminally investigate or prosecute any alcohol or drug abuse patient.[facility] HospitalIn the event this information is protected by the Federal Confidentiality of Alcohol and Drug Abuse Patient Records regulations: The Federal rules restrict any use of the information to criminally investigate or prosecute any alcohol or drug abuse patient.[facility] HospitalIn the event this information is protected by the Federal Confidentiality of Alcohol and Drug Abuse Patient Records regulations: The Federal rules restrict any use of the information to criminally investigate or prosecute any alcohol or drug abuse patient.[facility] HospitalIn the event this information is protected by the Federal Confidentiality of Alcohol and Drug Abuse Patient Records regulations: The Federal rules restrict any use of the information to criminally investigate or prosecute any alcohol or drug abuse patient.[facility] HospitalIn the event this information is protected by the Federal Confidentiality of Alcohol and Drug Abuse Patient Records regulations: The Federal rules restrict any use of the information to criminally investigate or prosecute any alcohol or drug abuse patient.[facility] HospitalIn the event this information is protected by the Federal Confidentiality of Alcohol and Drug Abuse Patient Records regulations: The Federal rules restrict any use of the information to criminally investigate or prosecute any alcohol or drug abuse patient.[facility] HospitalIn the event this information is protected by the Federal Confidentiality of Alcohol and Drug Abuse Patient Records regulations: The Federal rules restrict any use of the information to criminally investigate or prosecute any alcohol or drug abuse patient.[facility] HospitalIn the event this information is protected by the Federal Confidentiality of Alcohol and Drug Abuse Patient Records regulations: The Federal rules restrict any use of the information to criminally investigate or prosecute any alcohol or drug abuse patient.[facility] HospitalIn the event this information is protected by the Federal Confidentiality of Alcohol and Drug Abuse Patient Records regulations: The Federal rules restrict any use of the information to criminally investigate or prosecute any alcohol or drug abuse patient.[facility] HospitalIn the event this information is protected by the Federal Confidentiality of Alcohol and Drug Abuse Patient Records regulations: The Federal rules restrict any use of the information to criminally investigate or prosecute any alcohol or drug abuse patient.[facility] HospitalIn the event this information is protected by the Federal Confidentiality of Alcohol and Drug Abuse Patient Records regulations: The Federal rules restrict any use of the information to criminally investigate or prosecute any alcohol or drug abuse patient.[facility] HospitalIn the event this information is protected by the Federal Confidentiality of Alcohol and Drug Abuse Patient Records regulations: The Federal rules restrict any use of the information to criminally investigate or prosecute any alcohol or drug abuse patient.[facility] HospitalIn the event this information is protected by the Federal Confidentiality of Alcohol and Drug Abuse Patient Records regulations: The Federal rules restrict any use of the information to criminally investigate or prosecute any alcohol or drug abuse patient.[facility] HospitalIn the event this information is protected by the Federal Confidentiality of Alcohol and Drug Abuse Patient Records regulations: The Federal rules restrict any use of the information to criminally investigate or prosecute any alcohol or drug abuse patient.[facility] HospitalIn the event this information is protected by the Federal Confidentiality of Alcohol and Drug Abuse Patient Records regulations: The Federal rules restrict any use of the information to criminally investigate or prosecute any alcohol or drug abuse patient.[facility] HospitalIn the event this information is protected by the Federal Confidentiality of Alcohol and Drug Abuse Patient Records regulations: The Federal rules restrict any use of the information to criminally investigate or prosecute any alcohol or drug abuse patient.[facility] HospitalIn the event this information is protected by the Federal Confidentiality of Alcohol and Drug Abuse Patient Records regulations: The Federal rules restrict any use of the information to criminally investigate or prosecute any alcohol or drug abuse patient.[facility] HospitalIn the event this information is protected by the Federal Confidentiality of Alcohol and Drug Abuse Patient Records regulations: The Federal rules restrict any use of the information to criminally investigate or prosecute any alcohol or drug abuse patient.[facility] HospitalIn the event this information is protected by the Federal Confidentiality of Alcohol and Drug Abuse Patient Records regulations: The Federal rules restrict any use of the information to criminally investigate or prosecute any alcohol or drug abuse patient.[facility] HospitalIn the event this information is protected by the Federal Confidentiality of Alcohol and Drug Abuse Patient Records regulations: The Federal rules restrict any use of the information to criminally investigate or prosecute any alcohol or drug abuse patient.[facility] HospitalIn the event this information is protected by the Federal Confidentiality of Alcohol and Drug Abuse Patient Records regulations: The Federal rules restrict any use of the information to criminally investigate or prosecute any alcohol or drug abuse patient.[facility] HospitalIn the event this information is protected by the Federal Confidentiality of Alcohol and Drug Abuse Patient Records regulations: The Federal rules restrict any use of the information to criminally investigate or prosecute any alcohol or drug abuse patient.[facility] HospitalIn the event this information is protected by the Federal Confidentiality of Alcohol and Drug Abuse Patient Records regulations: The Federal rules restrict any use of the information to criminally investigate or prosecute any alcohol or drug abuse patient.[facility] HospitalIn the event this information is protected by the Federal Confidentiality of Alcohol and Drug Abuse Patient Records regulations: The Federal rules restrict any use of the information to criminally investigate or prosecute any alcohol or drug abuse patient.[facility] HospitalIn the event this information is protected by the Federal Confidentiality of Alcohol and Drug Abuse Patient Records regulations: The Federal rules restrict any use of the information to criminally investigate or prosecute any alcohol or drug abuse patient.[facility] HospitalIn the event this information is protected by the Federal Confidentiality of Alcohol and Drug Abuse Patient Records regulations: The Federal rules restrict any use of the information to criminally investigate or prosecute any alcohol or drug abuse patient.[facility] HospitalIn the event this information is protected by the Federal Confidentiality of Alcohol and Drug Abuse Patient Records regulations: The Federal rules restrict any use of the information to criminally investigate or prosecute any alcohol or drug abuse patient.[facility] HospitalIn the event this information is protected by the Federal Confidentiality of Alcohol and Drug Abuse Patient Records regulations: The Federal rules restrict any use of the information to criminally investigate or prosecute any alcohol or drug abuse patient.[facility] HospitalIn the event this information is protected by the Federal Confidentiality of Alcohol and Drug Abuse Patient Records regulations: The Federal rules restrict any use of the information to criminally investigate or prosecute any alcohol or drug abuse patient.[facility] HospitalIn the event this information is protected by the Federal Confidentiality of Alcohol and Drug Abuse Patient Records regulations: The Federal rules restrict any use of the information to criminally investigate or prosecute any alcohol or drug abuse patient.[facility] HospitalIn the event this information is protected by the Federal Confidentiality of Alcohol and Drug Abuse Patient Records regulations: The Federal rules restrict any use of the information to criminally investigate or prosecute any alcohol or drug abuse patient.[facility] HospitalIn the event this information is protected by the Federal Confidentiality of Alcohol and Drug Abuse Patient Records regulations: The Federal rules restrict any use of the information to criminally investigate or prosecute any alcohol or drug abuse patient.[facility] HospitalIn the event this information is protected by the Federal Confidentiality of Alcohol and Drug Abuse Patient Records regulations: The Federal rules restrict any use of the information to criminally investigate or prosecute any alcohol or drug abuse patient.[facility] HospitalIn the event this information is protected by the Federal Confidentiality of Alcohol and Drug Abuse Patient Records regulations: The Federal rules restrict any use of the information to criminally investigate or prosecute any alcohol or drug abuse patient.[facility] HospitalIn the event this information is protected by the Federal Confidentiality of Alcohol and Drug Abuse Patient Records regulations: The Federal rules restrict any use of the information to criminally investigate or prosecute any alcohol or drug abuse patient.[facility] HospitalIn the event this information is protected by the Federal Confidentiality of Alcohol and Drug Abuse Patient Records regulations: The Federal rules restrict any use of the information to criminally investigate or prosecute any alcohol or drug abuse patient.[facility] HospitalIn the event this information is protected by the Federal Confidentiality of Alcohol and Drug Abuse Patient Records regulations: The Federal rules restrict any use of the information to criminally investigate or prosecute any alcohol or drug abuse patient.[facility] HospitalIn the event this information is protected by the Federal Confidentiality of Alcohol and Drug Abuse Patient Records regulations: The Federal rules restrict any use of the information to criminally investigate or prosecute any alcohol or drug abuse patient.[facility] HospitalIn the event this information is protected by the Federal Confidentiality of Alcohol and Drug Abuse Patient Records regulations: The Federal rules restrict any use of the information to criminally investigate or prosecute any alcohol or drug abuse patient.[facility] HospitalIn the event this information is protected by the Federal Confidentiality of Alcohol and Drug Abuse Patient Records regulations: The Federal rules restrict any use of the information to criminally investigate or prosecute any alcohol or drug abuse patient.[facility] HospitalIn the event this information is protected by the Federal Confidentiality of Alcohol and Drug Abuse Patient Records regulations: The Federal rules restrict any use of the information to criminally investigate or prosecute any alcohol or drug abuse patient.[facility] HospitalIn the event this information is protected by the Federal Confidentiality of Alcohol and Drug Abuse Patient Records regulations: The Federal rules restrict any use of the information to criminally investigate or prosecute any alcohol or drug abuse patient.[facility] HospitalIn the event this information is protected by the Federal Confidentiality of Alcohol and Drug Abuse Patient Records regulations: The Federal rules restrict any use of the information to criminally investigate or prosecute any alcohol or drug abuse patient.[facility] HospitalIn the event this information is protected by the Federal Confidentiality of Alcohol and Drug Abuse Patient Records regulations: The Federal rules restrict any use of the information to criminally investigate or prosecute any alcohol or drug abuse patient.[facility] HospitalIn the event this information is protected by the Federal Confidentiality of Alcohol and Drug Abuse Patient Records regulations: The Federal rules restrict any use of the information to criminally investigate or prosecute any alcohol or drug abuse patient.[facility] HospitalIn the event this information is protected by the Federal Confidentiality of Alcohol and Drug Abuse Patient Records regulations: The Federal rules restrict any use of the information to criminally investigate or prosecute any alcohol or drug abuse patient.[facility] HospitalIn the event this information is protected by the Federal Confidentiality of Alcohol and Drug Abuse Patient Records regulations: The Federal rules restrict any use of the information to criminally investigate or prosecute any alcohol or drug abuse patient.[facility] HospitalIn the event this information is protected by the Federal Confidentiality of Alcohol and Drug Abuse Patient Records regulations: The Federal rules restrict any use of the information to criminally investigate or prosecute any alcohol or drug abuse patient.[facility] HospitalIn the event this information is protected by the Federal Confidentiality of Alcohol and Drug Abuse Patient Records regulations: The Federal rules restrict any use of the information to criminally investigate or prosecute any alcohol or drug abuse patient.[facility] HospitalIn the event this information is protected by the Federal Confidentiality of Alcohol and Drug Abuse Patient Records regulations: The Federal rules restrict any use of the information to criminally investigate or prosecute any alcohol or drug abuse patient.[facility] HospitalIn the event this information is protected by the Federal Confidentiality of Alcohol and Drug Abuse Patient Records regulations: The Federal rules restrict any use of the information to criminally investigate or prosecute any alcohol or drug abuse patient.[facility] HospitalIn the event this information is protected by the Federal Confidentiality of Alcohol and Drug Abuse Patient Records regulations: The Federal rules restrict any use of the information to criminally investigate or prosecute any alcohol or drug abuse patient.[facility] HospitalIn the event this information is protected by the Federal Confidentiality of Alcohol and Drug Abuse Patient Records regulations: The Federal rules restrict any use of the information to criminally investigate or prosecute any alcohol or drug abuse patient.[facility] HospitalIn the event this information is protected by the Federal Confidentiality of Alcohol and Drug Abuse Patient Records regulations: The Federal rules restrict any use of the information to criminally investigate or prosecute any alcohol or drug abuse patient.[facility] HospitalIn the event this information is protected by the Federal Confidentiality of Alcohol and Drug Abuse Patient Records regulations: The Federal rules restrict any use of the information to criminally investigate or prosecute any alcohol or drug abuse patient.[facility] HospitalIn the event this information is protected by the Federal Confidentiality of Alcohol and Drug Abuse Patient Records regulations: The Federal rules restrict any use of the information to criminally investigate or prosecute any alcohol or drug abuse patient.[facility] Reason for Visit (unrecogniz ed section and content) Reason Onset Date Comments Refill Request 12/17/2021 Reason Comments CARD Follow Up 6 Month [...] Monitoring Outreach 08/12/2023 Reason Comments Pre-Op Exam Reason Comments Follow Up Reason Comments Patient Update New blisters Reason Onset Date Comments Community Monitoring Outreach 10/26/2023 Reason Onset Date Comments Community Monitoring Outreach 01/10/2024 Reason Comments FYI-No Action Needed Reason Onset Date Comments Community Monitoring Outreach 02/24/2024 Reason Onset Date Comments Community Monttoring Outreach 03/31/2024 Reason Onset Date Comments Community Monitoring Outreach 04/28/2024 Reason Onset Date Comments Transition Of Care 05/22/2024 [facility],Discharge 05/21/24 Reason Onset Date Comments CDM 06/21/2024 Chronic Disease Management Routine Call Reason Onset Date Comments CDM 07/19/2024 Chronic Disease Management Routine Call Care Teams (unrecognized sec tion and content) Bartender Manager Relationship Specialty Start Date End Date Tomy Hernandez MD [address] [place] [address] PCP - General Internal Medicine 04/13/16 Terence Alan, glove taggerRegulatory Administrator Internal Medicine 01/16/21 Gal Salmeron [address] [place] [id number] Cardiology 05/28/21 Bran Russell [address] [place] [address] Pulmonary Disease 05/28/21 Bartender Manager Relationship Specialty Start Date End Date Tomy Hernandez MD [address] [facility] [place] [address] PCP - General Internal Medicine 04/13/16 Terence Alan, glove taggerRegulatory Administrator Internal Medicine 01/16/21 Gal Salmeron [address] [place] [address] Cardiology 05/28/21 Bran Russell [address] [place] [address] Pulmonary Disease 05/28/21 Bartender Manager Relationship Specialty Start Date End Date Tomy Hernandez MD [address] [place] [address] PCP - General Internal Medicine 04/13/16 Terence Alan, glove taggerRegulatory Administrator Internal Medicine 01/16/21 Gal Salmeron [address] [place] [address] Cardiology 05/28/21 Bran Russell [address] [place] [address] Pulmonary Disease 05/28/21 Bartender Manager Relationship Specialty Start Date End Date Tomy Hernandez MD [address] [place] [address] PCP - General Internal Medicine 04/13/16 Terence Alan, glove taggerRegulatory Administrator Internal Medicine 01/16/21 Gal Salmeron [address] [place] [address] Cardiology 05/28/21 Bran Russell [address] [place] [address] Pulmonary Disease 05/28/21 Bartender Manager Relationship Specialty Start Date End Date Tomy Hernandez MD [address] [facility] [place] [address] PCP - General Internal Medicine 04/13/16 Terence Alan, glove taggerRegulatory Administrator Internal Medicine 01/16/21 Gal Salmeron [address] [place] [address] Cardiology 05/28/21 Bran Russell [address] [place] [address] Pulmonary Disease 05/28/21 Bartender Manager Relationship Specialty Start Date End Date Tomy Hernandez MD [address] [facility] [place] [address] PCP - General Internal Medicine 04/13/16 Terence Alan, glove taggerRegulatory Administrator Internal Medicine 01/16/21 Gal Salmeron [address] [place] [address] Cardiology 05/28/[address] [place] [address] Pulmonary Disease 05/28/21 Bartender Manager Relationship Specialty Start Date End Date Tomy Hernandez MD [address] [facility] [place] [address] PCP - General Internal Medicine 04/13/16 Terence Alan, glove taggerRegulatory Administrator Internal Medicine 01/16/21 Gal Salmeron [address] [place] [address] Cardiology 05/28/21 Bran Russell [address] [place] [address] Pulmonary Disease 05/28/21 Bartender Manager Relationship Specialty Start Date End Date Tomy Hernandez MD [address] [facility] [place] [address] PCP - General Internal Medicine 04/13/16 Terence Alan, glove taggerRegulatory Administrator Internal Medicine 01/16/21 Gal Salmeron [address] [place] [address] Cardiology 05/28/21 Bran Russell [address] [place] [address] Pulmonary Disease 05/28/21 Bartender Manager Relationship Specialty Start Date End Date Tomy Hernandez MD [address] [place] [address] PCP - General Internal Medicine 04/13/16 Terence Alan, glove taggerRegulatory Administrator Internal Medicine 01/16/21 Gal Salmeron [address] [place] [address] Cardiology 05/28/21 Bran Russell [address] [place] [address] Pulmonary Disease 05/28/21 Bartender Manager Relationship Specialty Start Date End Date Tomy Hernandez MD [address] [place] [address] PCP - General Internal Medicine 04/13/16 Terence Alan, glove taggerRegulatory Administrator Internal Medicine 01/16/21 Gal Salmeron [address] [place] [address] Cardiology 05/28/21 Bran Russell [address] [place] [address] Pulmonary Disease 05/28/21 Bartender Manager Relationship Specialty Start Date End Date Tomy Hernandez MD [address] [facility] [place] [address] PCP - General Internal Medicine 04/13/16 Terence Alan, glove taggerRegulatory Administrator Internal Medicine 01/16/21 Gal Salmeron [address] [place] [address] Cardiology 05/28/21 Bran Russell [address] [place] [address] Pulmonary Disease 05/28/21 Bartender Manager Relationship Specialty Start Date End Date Tomy Hernandez MD [address] [facility] [place] [address] PCP - General Internal Medicine 04/13/16 Familia Pratt, glove taggerRegulatory Administrator Internal Medicine 01/16/21 Gal Salmeron [address] [place] [address] Cardiology 05/28/21 Bran Russell [address] [place] [address] Pulmonary Disease 05/28/21 Bartender Manager Relationship Specialty Start Date End Date Tomy Hernandez MD [address] [facility] [place] [address] PCP - General Internal Medicine 04/13/16 Familia Pratt, glove taggerRegulatory Administrator Internal Medicine 01/16/21 Gal Salmeron [address] [place] [address] Cardiology 05/28/21 Bran Russell [address] [place], [place] [address] Pulmonary Disease 05/28/21 Team Status: Active Member Role Status Dates Dr. Tomy Hernandez MD Family Provider Active Dr. Tomy Hernandez MD Primary Care Provider Active Team Status: Inactive Member Role Status Dates Dr. Tomy Hernandez MD Primary Care Provider, Refer ring Provider Active Dr. Gal Salmeron MD Attending Provider Active Team Status: Inactive Member Role Status Dates Dr. Tomy Hernandez MD Primary Care Provider, Refer ring Provider Active Dr. Abida Sanchez MD Attending Provider Active Team Status: Active Member Role Status Dates Dr. Tomy Hernandez MD Primary Care Provider, Refer ring Provider Active Dr. Abida Sanchez MD Attending Provider, Other Pro vider Active Bartender Manager Relationship Specialty Start Date End Date Tomy Hernandez MD [address] [facility] [place] [address] PCP - General Internal Medicine 04/13/16 Familia Pratt, glove taggerRegulatory Administrator Internal Medicine 01/16/21 Gal Salmeron [address] [place] [address] Cardiology 05/28/21 Bran Russell [address] [place], [place] [address] Pulmonary Disease 05/28/21 Team Status: Inactive Member Role Status Dates Dr. Tomy Hernandez MD Primary Care Provider, Refer ring Provider Active Minal Hannon SERVICE UNIT OPERATOR, SERVICE UNIT OPERATOR-C Attending Provider Active Team Status: Inactive Member Role Status Dates Dr. Tomy Hernandez MD Primary Care Provider, Refer ring Provider Active Jarod Hernández PA, PA Attending Provider Active Team Status: Inactive Member Role Status Dates Dr. Tomy Hernandez MD Primary Care Provider Active Dr. Christopher Rivera MD Attending Provider Active Team Status: Active Member Role Status Dates Dr. Tomy Hernandez MD Primary Care Provider Active Minal Hannon SERVICE UNIT OPERATOR, SERVICE UNIT OPERATOR-C Referring Provider, Other Provi sergio Active Dr. Christopher Rivera MD Attending Provider Active Team Status: Active Member Role Status Dates Dr. Tomy Hernandez MD Primary Care Provider Active James Jacobsen SERVICE UNIT OPERATOR, SERVICE UNIT OPERATOR-C Attending Provider Active Team Status: Inactive Member Role Status Dates Dr. Tomy Hernandez MD Primary Care Provider Active Minal Hannon SERVICE UNIT OPERATOR, SERVICE UNIT OPERATOR-C Attending Provider, Referring P jossy Active Bartender Manager Relationship Specialty Start Date End Date Tomy Hernandez MD [address] [place] [address] PCP - General Internal Medicine 04/13/16 Familia Pratt, glove taggerRegulatory Administrator Internal Medicine 01/16/21 Gal Salmeron [address] [facility] [address] [address] Cardiology 05/28/21 Bran Russell MD [address] [place] [address] Pulmonary Disease 05/28/21 Team Status: Active Member Role Status Dates Dr. Tomy Hernandez MD Primary Care Provider Active Minal Hannon SERVICE UNIT OPERATOR, SERVICE UNIT OPERATOR-C Attending Provider Active Team Status: Active Member Role Status Dates Dr. Tomy Hernandez MD Primary Care Provider Active Dr. Abida Sanchez MD Attending Provi sergio, Referring Provider, Other Provider Active Team Status: Inactive Member Role Status Dates Dr. Tomy Hernandez MD Primary Care Provider Active Dr. Abida Sanchez MD Attending Provider, Referring Provider Active Bartender Manager Relationship Specialty Start Date End Date Tomy Hernandez MD [address] [facility] [place] [address] PCP - General Internal Medicine 04/13/16 Familia Pratt, glove taggerRegulatory Administrator Internal Medicine 01/16/21 Gal Salmeron MD [address] [place] [address] Cardiology 05/28/21 Bran Russell MD [address] [place] [address] Pulmonary Disease 05/28/21 Bartender Manager Relationship Specialty Start Date End Date Tomy Hernandez MD [address] [facility] [place] [address] PCP - General Internal Medicine 04/13/16 Familia Pratt, glove taggerRegulatory Administrator Internal Medicine 01/16/21 Gal Salmeron MD [address] [place] [address] Cardiology 05/28/21 Bran Russell MD [address] [place] [address] Pulmonary Disease 05/28/21 Team Status: Inactive Member Role Status Dates Dr. Tomy Hernandez MD Primary Care Provider, Refer ring Provider Active Dr. Bran Russell MD Attending Provider Active Team Status: Inactive Member Role Status Dates Dr. Tomy Hernandez MD Primary Care Provider Active Dr. Jarod Lamb MD Attending Provider, Referring P jossy Active Team Status: Inactive Member Role Status Dates Dr. Tomy Hernandez MD Primary Care Provider Active Dr. Jarod Lamb MD Admit Provider, A ttending Provider, Referring Provider Active Dr. Javed Beach MD Other Provider Active Team Status: Inactive Member Role Status Dates Dr. Tomy Hernandez MD Primary Care Provider Active Omer CHAMBERS PA-C Attending Provider, Referring Pr ovider Active Bartender Manager Relationship Specialty Start Date End Date Tomy Hernandez MD [address] [facility] [place] [address] PCP - General Internal Medicine 04/13/16 Familia Pratt, glove taggerRegulatory Administrator Internal Medicine 01/16/21 Gal Salmeron MD [address] [place] [address] Cardiology 05/28/21 Bran Russell MD [address] [place] [address] Pulmonary Disease 05/28/21 Bartender Manager Relationship Specialty Start Date End Date Tomy Hernandez MD [address] [facility] [place] [address] PCP - General Internal Medicine 04/13/16 Familia Pratt, glove taggerRegulatory Administrator Internal Medicine 01/16/21 Gal Salmeron MD [address] [place] [address] Cardiology 05/28/21 Bran Russell MD [address] [place] [address] Pulmonary Disease 05/28/21 Bartender Manager Relationship Specialty Start Date End Date Tomy Hernandez MD [address] [place] [address] PCP - General Internal Medicine 04/13/16 Familia Pratt, glove taggerRegulatory Administrator Internal Medicine 01/16/21 Gal Salmeron MD [address] [place] [address] Cardiology 05/28/21 Bran Russell MD [address] [place] [address] Pulmonary Disease 05/28/21 Team Status: Active Member Role Status Dates Dr. Tomy Hernandez MD Primary Care Provider Active Dr. Christopher Rivera MD Attending Provider Active Team Status: Active Member Role Status Dates Dr. Tomy Hernandez MD Primary Care Provider Active Dr. Johnathan Colin MD Attending Provider Active Team Status: Inactive Member Role Status Dates Dr. Tomy Hernandez MD Primary Care Provider, Refer ring Provider Active Dr. Rigo Butler DPM Attending Provider Active Bartender Manager Relationship Specialty Start Date End Date Tomy Hernandez MD [address] [facility] [place] [address] PCP - General Internal Medicine 04/13/16 Familia Pratt RN Regulatory Administrator Internal Medicine 01/16/21 Gal Salmeron MD [address] [place] [address] Cardiology 05/28/21 Bran Russell MD [address] [place] [address] Pulmonary Disease 05/28/21 Team Status: Inactive Member Role Status Dates Dr. Tomy Hernandez MD Primary Care Provider, Refer ring Provider Active Erica Warner SERVICE UNIT OPERATOR, SERVICE UNIT OPERATOR-C Attending Provider Active Team Status: Inactive Member Role Status Dates Dr. Tomy Hernandez MD Primary Care Provider Active Erica Warner SERVICE UNIT OPERATOR, SERVICE UNIT OPERATOR-C Attending Provider, Referrin g Provider Active Team Status: Active Member Role Status Dates Dr. Tomy Hernandez MD Primary Care Provider Active Erica Warner SERVICE UNIT OPERATOR, SERVICE UNIT OPERATOR-C Attending Provider, Referrin g Provider Active Team Status: Active Member Role Status Dates Dr. Tomy Hernandez MD Primary Care Provider Active Erica Warner SERVICE UNIT OPERATOR, SERVICE UNIT OPERATOR-C Referring Provider, Other Pr ovider Active Dr. Freddy Juan DO Attending Provider Active Bartender Manager Relationship Specialty Start Date End Date Tomy Hernandez MD [address] [place] [address] PCP - General Internal Medicine 04/13/16 Familia Pratt, glove taggerRegulatory Administrator Internal Medicine 01/16/21 Gal Salmeron MD [address] [place] [address] Cardiology 05/28/21 Bran Russell MD [address] [address] Pulmonary Disease 05/28/21 Bartender Manager Relationship Specialty Start Date End Date oTmy Hernandez MD [address] [place] [address] PCP - General Internal Medicine 04/13/16 Familia Pratt, glove taggerRegulatory Administrator Internal Medicine 01/16/21 Gal Salmeron MD [address] [place] [address] Cardiology 05/28/21 Bran Russell MD [address] [place] [address] Pulmonary Disease 05/28/21 Nabeel Guerra, MARYCRUZ [address] [id number] Primary Care Flight Tower Dispatcher 05/22/24 05/22/24 Bartender Manager Relationship Specialty Start Date End Date Tomy Hernandez MD [address] [place] [address] PCP - General Internal Medicine 04/13/16 06/21/24 Rey Yousif MD [address] 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 Tomy Hernandez MD Referring Provider Active Start: December 15, 2024 End: December 15, 2024 Minal Hannon SERVICE UNIT OPERATOR, SERVICE UNIT OPERATOR-C Attending Provider Active Start: December 15, 2024 End: December 15, 2024 Out of [facility] Primary Care Provider Active Start: December 15, 2024 End: December 15, 2024 Team Status: Inactive Member Role Status Dates Dr. Tomy Hernandez MD Referring Provider Active Start: February 28, 2025 End: February 28, 2025 Erica Warner SERVICE UNIT OPERATOR, SERVICE UNIT OPERATOR-C Attending Provider Active Start: February 28, 2025 End: February 28, 2025 [facility] Primary Care Provider Active Start: February 28, 2025 End: February 28, 2025 FOR RECORDS PERTAINING TO PATIENTS WHO ARE [...] BE BASED ON THE PRIMARY CLINICAL RECORDS. [facility]. provides no warranty or guarantee of the accuracy or completeness of information in this document.
--- NOTE | 2025-04-24 07:00 | PET_ITS ---
PROCEDURE: PET/CT TUMOR WB INITIAL 04/24/2025 REASON FOR EXAM: 79 y/o M with SKIN TECHNIQUE: Following the intravenous administration of radionucleotide, image acquisition on a dedicated PET/CT unit was performed at one hour post injection. A preliminary CT study encompassing the Head, neck, chest, abdomen, pelvis, and bilateral lower extremities was performed for purposes of attenuation correction and anatomic localization. The proximal thighs were also included. The patient's blood glucose level was 129 mg/dL (allowable range: 50-180 mg/dL). RADIOPHARMACEUTICAL: 13.79 mCi 18F-FDG (Fluorodeoxyglucose F18) IV was injected into he patient. RADIATION DOSE SUMMARY: Effective Dose: Approximately 7 mSv for a standard whole-body PET scan Organ Doses: Varies by organ, with higher doses typically to the bladder, liver, and brain COMPARISON: COMPARISON FROM CT, PET OR OTHER PERTINENT EXAMS: None provided. FINDINGS: Physiologic uptake: There may be expected metabolic uptake within the brain, tongue and floor of the mouth and larynx/vocal cords, heart, kristy (many normal individuals have hilar uptake in less than 3 nodes with mildly avid hilar nodes less than 2.7 SUV), liver and spleen, system, and GI tract and symmetric muscle uptake. FDG AVID AND NON-AVID LESIONS. Reported avid SUV values (g/mL*) are maximum SUV. Head: Prior right frontal lobe infarction noted. NECK: Increased uptake is seen of the posterior left external ear, presumably due to neoplasm, injury, or iatrogenic cause. CHEST: A small pericardial effusion is noted. Extensive mitral valve calcification is seen. An aortic valve prosthesis is seen. Moderately severe coronary artery calcification is noted. Chest wall- There are no significant chest wall abnormalities. Axilla- There are no significant axillary abnormalities. Lung parenchyma- There are no significant lung parenchyma abnormalities. Mediastinum- There are no significant hilar or mediastinal adenopathy. Pleura- There are no significant pleural abnormalities. ABDOMEN: Moderate to moderately severe arterial calcification is seen; no evidence of abdominal aortic aneurysm. Stomach- No significant abnormalities. Liver- No significant abnormalities. Spleen- No significant abnormalities. Pancrease- No significant abnormalities. Kidneys- No significant abnormalities. Bowel- Normal bowel activity. Spine- No significant abnormalities. PELVIS: Prostatomegaly. Bowel- Normal physiologic bowel activity is identified. Masses- There are no pelvic masses. LOWER EXTREMITIES: No hypermetabolic uptake is seen to suggest the presence of metastatic disease. Bones- Degenerative changes of the spine and sacroiliac joints are noted. A left knee prosthesis is seen, with associated metallic artifact. With the use of bone window settings, there are no osteolytic or osteoblastic lesions. There are no FDG avid lesions within the visualized portion of the axial skeleton. PET/PET/CT Tumor WB Initial IMPRESSION: FDG avid- 1. Increased uptake is seen of the posterior left external ear, presumably due to neoplasm, injury, or iatrogenic cause. 2. No evidence of metastatic disease. Other: 1. Extensive mitral valve calcification is seen. 2. An aortic valve prosthesis is seen. 3. Moderately severe coronary artery calcification is noted. 4. Prostatomegaly. 5. Small pericardial effusion. Please note the low-dose CT scan was performed to facilitate PET image reconstr uction and anatomic localization and does not replace a diagnostic CT. Any diagnostic CT requested and performed at the time of the PET will be reported separately. Reading Location: [id number]
== END | disposition home or self-care (01) ==
LOC: ONC 06:36
DX: C44.329 Squamous cell carcinoma of skin of other parts of face (principal)
CPT/HCPCS: 78816; A9552

== ENCOUNTER → 2025-06-11 | Outpatient (CLI) | payer MEDICARE, SELFPAY ==
[2021-12-15 12:04] VITALS: BMI 37.1
--- OUTSIDE RECORDS SUMMARY | 2025-06-01 11:18 | XMS RPT_ITS ---
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 Author Type: Registered Nurse Type: Progress Notes Filed: 07/19/2024 15:56 Note Text: CDM Telephonic Outreach Provider Action/FYI CDM: COPD, CKD Pt has Appt on 08/24/24 [facility]Vincent Yousif Instructed to contact new PCP for any symptom changes or needs. Patient verbalized understanding. Contact made with patient: Yes Patient identified by name and date of . Discussed care with patient Dayanna Barber RN July 19, 2024 3:46 PM CNPTOUTREACH Observed: 07/19/2024 12:00 AM Status: COMPLETED Source: [facility] Patient Outreach ([facility]) CARLIE DEGROOT ([id number]) 1945 M Date Time Provider Department 07/19/24 DAYANNA BARBER [facility] During your visit today, we recorded the following information about you: Dayanna Barber RN 07/19/2024 3:56 PM Signed CDM Telephonic Outreach Provider Action/I CDM: COPD, CKD Pt has Appt on 08/24/24 [facility] Dr.Vincent Yousif Instructed to contact new PCP for any symptom changes or needs. Patient verbalized understanding. Contact made with patient: Yes Patient identified by name and date of . Discussed care with patient Dayanna Barber RN July 19, 2024 3:46 PM Allergies [...] 40 mg by mouth once daily. Per [facility] decreased to once daily. - [...] [E66.812] 04/13/2019 Positive colorectal cancer screening using [facility]*05/02/2020 03/22/2023 Aortic valve stenosis [I35.0] 11/26/2020 Nocturnal [...] left hand [R25.1] 08/16/2023 Encounter Status:Closed by DAYANNA BARBER on 07/19/24 PROGRESS Observed: 06/21/2024 10:21 AM Status: COMPLETED Source: [facility] HNO ID: [id number] Author: DAYANNA BARBER RN Service: ? Author Type: Registered Nurse [...] Appt with Sisi Warner CNP Pulmonology at [facility] Pt has08/24/[address] Rey [facility] [place] [place] updated. Patient discharged from [facility], Discharge date: 05/21/24 Admitted for: confusion, fever, covid +COVID-19, confusion,fever, sob Contacted for: Routine Telephonic Outreach Contact made with patient: Yes Patient identified by name and date of . Discussed care with patient Are you experiencing any new or worsening symptoms you need to talk about today? Yes Based on mold builder, the following disposition is advised: No symptoms or symptoms present, not severe. Routed to: No Action Needed DESTINEY Education Provided this Outreach: No Dayanna Barber RN June 21, 2024 10:38 AM CNPTOUTREABHANU Observed: 06/21/2024 12:00 AM Status: COMPLETED Source: [facility] Patient Outreach ([facility]) CARLIE DEGROOT ([id number]) 1945 M Date Time Provider Department 06/21/24 DAYANNA BARBER [facility] During your visit today, we recorded the following information about you: Dayanna Barber RN 06/22/2024 3:25 PM Signed CDM Telephonic [...] Appt with Sisi Warner CNP Pulmonology at [facility] Pt has08/24/[address] Rey [facility] [place] updated. Patient discharged from [facility], Discharge date: 05/21/24 Admitted for: confusion, fever, covid +COVID-19, confusion,fever, sob Contacted for: Routine Telephonic Outreach Contact made with patient: Yes Patient identified by name and date of . Discussed care with patient Are you experiencing any new or worsening symptoms you need to talk about today? Yes Based on mold builder, the following disposition is advised: No symptoms or symptoms present, not severe. Routed to: No Action Needed DESTINEY Education Provided this Outreach: Daphney Barber RN June 21, 2024 10:38 AM Allergies [...] 40 mg by mouth once daily. Per [facility] decreased to once daily. - [...] [E66.812] 04/13/2019 Positive colorectal cancer screening using [facility]*05/02/2020 03/22/2023 Aortic valve stenosis [I35.0] 11/26/2020 Nocturnal [...] left hand [R25.1] 08/16/2023 Encounter Status:Closed by DAYANNA BARBER on 06/22/24 ALLERGIES DATE TYPE / CODE NAME / CODE REACTION SEVERITY SOURCE 05/18/2025 DRUG INGREDI/[id number](S NOMED CT) LISINOPRIL [facility] Ambulatory ENCOUNTERS ADMIT/DISCHARGE ACCOUNT NUMBER ADMITTING ENCOUNTER CLASS LOCATION SOURCE 06/01/2025/ 5 [id number] Ambulatory Building:[address] Ambulatory 05/25/2025/ 5 [id number] Ambulatory Building:[address] Ambulatory 05/18/2025/ 5 [id number] Ambulatory Building:[address] Ambulatory PAYERS ENCOUNTER GUARANTOR PAYER SUBSCRIBER SOURCE 06/01/2025 CARLIE ALVAREZB: [place] [id number]: () Primary Insurance:[facility]Policy Number: [id number] ctive Date:2024-02-10 CARLIE ALVAREZB: [id number] [place] [address]Gse: () [facility] Ambulatory 05/25/2025 CARLIE ALVAREZB: [place] [address]Ubl: () Primary Insurance:[facility]Policy Number: [id number] ctive Date:2024-02-10 CARLIE RASMUSSEN: [id number] [place] [address]Kgc: () [facility] Ambulatory 05/18/2025 CARLIE RASMUSSEN: [id number] [place] [address]Vqy: () [facility] Insurance[facility] Number: [id number] ctive Date:2024-02-10 CARLIE GUIDO ZANEDOB: [id number] [place] [address]Jib: () [facility]
--- NOTE | 2025-06-11 12:47 | ECHOD_ITS ---
Reason For Study Reason For Study: VALVE EVAL Procedure This was a 2D Doppler, Color Flow transthoracic echocardiogram. Exam performed in department. Left Ventricle Normal left ventricle. Moderate concentric left ventricular hypertrophy. Left ventricular systolic function is normal. The left ventricular ejection fraction is 65 %. No regional wall motion abnormalities noted. Right Ventricle Normal RV size. Normal systolic function. Atria There is severe biatrial dilatation. The right atrium is severely enlarged. Mitral Valve There is moderate mitral annular calcification. Tricuspid Valve Normal tricuspid valve. Moderate (2+) tricuspid valve insufficiency. Pulmonary artery systolic pressure is 50 mmHg. Aortic Valve Peak aortic valve gradient 17 mmHg. Mean aortic valve gradient 10 mmHg. Bioprosthetic aortic valve. Pulmonic Valve Normal pulmonic valve. Great Vessels Normal aortic root. The pulmonary artery is normal size. Inferior vena cava collapse with sniff. Pericardium/Pleural No pericardial effusion. MMode/2D Measurements & Calculations LVIDd: 4.3 cm IVSd: 1.4 cm LVOT diam: 2.0 cm LVIDs: 3.4 cm LVPWd: 1.4 cm LVOT area: 3.0 cm2 FS: 19.9 % Ao root diam: 3.6 cm LAV(MOD-bp): 106.9 ml LVAd ap4: 18.6 cm2 LAV(MOD-bp) Indexed: 47.9 ml/m2 LVLd ap4: 6.0 cm LAV(MOD-sp2): 101.1 ml EDV(MOD-sp4): 48.0 ml LAV(MOD-sp4): 109.2 ml EDV(sp4-el): 48.5 ml LVAs ap4: 10.3 cm2 LVLs ap4: 5.0 cm ESV(MOD-sp4): 17.7 ml ESV(sp4-el): 17.8 ml EF(MOD-sp4): 63.2 % EF(sp4-el): 63.2 % SV(MOD-sp4): 30.3 ml SV(sp4-el): 30.6 ml LA A4 area: 32.7 cm2 SI(MOD-sp4): 13.6 ml/m2 LA dimension(2D): 5.8 cm RA A4 area: 31.7 cm2 Doppler Measurements & Calculations Ao V2 max: 210.6 cm/sec PA V2 max: 139.4 cm/sec TR max michael: 337.6 cm/sec Ao max P.7 mmHg PA V2 mean: 89.5 cm/sec TR max P.6 mmHg Ao V2 mean: 147.1 cm/sec Ao mean P.0 mmHg Ao V2 VTI: 46.2 cm ECHO/Echo Complete Interpretation Summary Normal left ventricle. Moderate concentric left ventricular hypertrophy. Left ventricular systolic function is normal. The left ventricular ejection fraction is 65 %. Bioprosthetic aortic valve. Mean aortic valve gradient 10 mmHg. There is severe biatrial dilatation. Ordering Physician: Minal Hannon Referring Physician: Minal Hannon Performed By: Steffanie Levy [facility]
== END | disposition home or self-care (01) ==
LOC: CVS 12:45
PROVIDERS: Referring Provider Nurse Practitioner Gerontology; Visit Provider Nurse Practitioner Gerontology
DX: Z95.2 Presence of prosthetic heart valve (principal)
CPT/HCPCS: 93306

== ENCOUNTER → 2025-07-12 | Outpatient (CLI) | payer MEDICARE, SELFPAY ==
[2021-12-15 12:04] VITALS: BMI 37.1
== END | disposition home or self-care (01) ==
PROVIDERS: Referring Provider Internal Medicine Cardiovascular Disease; Visit Provider Internal Medicine Cardiovascular Disease
DX: I48.91 Unspecified atrial fibrillation (principal)
CPT/HCPCS: 93225; 93226